=== PATIENT | male | born 1940 | race Caucasian/White ===

== ENCOUNTER 2017-11-19 12:03 | Observation (INO) | payer MEDICARE, SELFPAY ==
[2017-11-19] VITALS (12 sets, daily range): BP systolic 120–130; BP diastolic 44–68; PULSE 55–72; RESP 14–24; TEMP 36.8–37.1; O2SAT 90–95; BMI 46.9; BMI 45.1
--- NOTE | 2017-11-19 12:39 | EKG12_ITS ---
Test Reason : CP Blood Pressure : / mmHG Vent. Rate : 069 BPM Atrial Rate : 071 BPM P-R Int : 206 ms QRS Dur : 198 ms QT Int : 502 ms P-R-T Axes : 000 -65 106 degrees QTc Int : 537 ms AV dual-paced rhythm Abnormal ECG Confirmed by LAURA MEEK, SHAR ([id number]), tape editor SANTI RODRIGUEZ ([id number]) on 11/22/2017 1:30:52 PM Referred By: ANUJA Confirmed By:SHAR SANCHEZ MD
--- NOTE | 2017-11-19 12:39 | RAD_ITS ---
STUDY: X-RAY CHEST REASON FOR EXAM: Male, 77 years old. Chest pain. TECHNIQUE: Single AP upright portable chest view. COMPARISON: Portable chest 05/03/2017. Correlation CT chest 05/03/2017. FINDINGS: Right pacemaker battery and dual contiguous appearing intracardiac leads appear well-positioned, stable appearance where visualized. Right lung appears fairly well ventilated with mild mid and moderate lower heterogeneous opacities seen. Mild left greater than right opacification CP angles noted which appear sharply marginated bilaterally. Left lung shows overall decreased volume and hazy heterogeneous mid lung opacity and more homogeneous heterogeneous basal opacity. Mildly enlarged heart suggested, left lower heart is obscured by left mid/basilar opacity. No change moderately widened mediastinum with effaced left lateral lower margin. Increased left greater than right hilar heterogeneous opacities most likely represent enlarged pulmonary vessels, relatively unchanged suggestive portal arterial hypertension in the appropriate clinical setting. Left-sided visualized aortic arch and descending thoracic aorta appears stable. Visualized bones appear intact without acute osseous process identified. No change sternal wires and numerous left mediastinal and hilar surgical clips. There is no demonstrated abnormality of the visualized soft tissue structures of the upper abdomen. No subdiaphragmatic free air seen grossly. RAD/Chest 1 View (Portable) IMPRESSION: Left greater than right heterogeneous opacities in left lung volume loss, clinical correlation for CHF/fluid overload, pneumonia, atelectasis and/or pleural fluid recommended. Recommend follow-up chest exam as clinically indicated for clearing to exclude neoplasm.. Electronically Signed: Minh Ben, at 13:40 EDT Tel , Service support ,
[2017-11-19 12:50] LABS: Basophil# 0.04 X10^3/uL; Basophil% 0.5 % (0-1); Eosinophil# 0.39 X10^3/uL; Eosinophils% 4.7 % (0-5); Hemoglobin 14.1 g/dl (13.0-16.5); Lymphocyte % 21.7 % (19-41); Mean Corp Hgb Conc 33.6 g/gl (32-36); Mean Corpuscular Volume 89.4 fL (80-94); Mean Platelet Vol. 10.2 fl (6.2-12.0); Monocyte# 1.04 X10^3/uL; Monocyte% 12.5 % (0-10); Neutrophil # 5.01 X10^3/uL (2.7-7.7); Neutrophil % 60.2 % (47-70); Platelet Count 239 K/mm3 (150-450); RBC Distribution Width CV 14.8 % (11.6-14.6); White Blood Count 8.3 K/mm3 (4.4-11.0)
[2017-11-19 12:52] LABS: POSITIVE COUNT NO; POSITIVE DIFFERENTIAL NO; POSITIVE MORPHOLOGY NO
[2017-11-19 13:03] LABS: Anion Gap 8 (5-15); BUN 20 mg/dL (7-18); BUN/Creat Ratio 21.3 RATIO (10-20); Calcium,Total 8.4 mg/dL (8.5-10.1); Chloride 105 mmol/L (98-107); Creatinine, Serum 0.94 mg/dL (0.70-1.30); EST Glomerular Filtration Rate 83 mL/min (>60); Est Glom Filt Rate - Afr Amer 101 mL/min (>60); Estimated Creatinine Clearance 73.38 ml/min; Glucose 126 mg/dL (74-106); Potassium 3.8 mmol/L (3.5-5.1); Sodium Level 142 mmol/L (136-145)
[2017-11-19 14:34] LABS: D-Dimer Quantitative (DVT/PE) 0.72 FEU/ug/m (0.27-0.49)
--- NOTE | 2017-11-19 14:40 | EKG12_ITS ---
Test Reason : REPEAT-CP Blood Pressure : / mmHG Vent. Rate : 066 BPM Atrial Rate : 357 BPM P-R Int : 242 ms QRS Dur : 160 ms QT Int : 480 ms P-R-T Axes : 000 -68 111 degrees QTc Int : 503 ms AV dual-paced rhythm with prolonged AV conduction Abnormal ECG Confirmed by LAURA MEEK, SHAR ([id number]), offline editor SANTI RODRIGUEZ ([id number]) on 11/22/2017 1:31:12 PM Referred By: ANALIA Confirmed By:SHAR SANCHEZ MD
--- NOTE | 2017-11-19 15:05 | ED.VISSUMM ---
- ER Visit Summary Date of Service: 11/19/17 Chief Complaint: Chest pain History of Present Illness: The patient is a 77 M who reports chest tightness that started last evening. He points to the center portion of his chest and states it radiates toward his right shoulder and up the right side of his neck. He did report getting sweaty with it but not short of breath. He recently had his Xarelto held because he was coughing up some blood. He states that occurs rather frequently. He restarted his Xarelto on November 17. She was given aspirin one sublingual nitro with EMS. On arrival here patient states his pain is down to a 1 and this is his normal baseline. Past history significant for coronary disease, diabetes, hypertension, high cholesterol, CHF, paroxysmal A. fib, third-degree block. Patient has a pacemaker. He is also had cardiac stents and double bypass surgery. Physical Examination: Blood pressure is 125/68, temperature 98.3, heart rate 59, respiratory rate 20, pulse ox 90% on room air. Patient sitting upright in bed no acute distress. He is alert and talkative. Head and neck examination is unremarkable. Heart is regular rate and rhythm. Lung sounds are diminished at the bases. Abdomen is soft nontender. Lower extremity examination reveals 1+ bilateral edema that is symmetric. Test Results: EKG is paced at 69. It is unchanged compared to prior study. Portable chest x-ray reveals left greater than right heterogeneous opacities and left lung volume loss. This is grossly unchanged compared to prior study. CBC and chemistry studies are unremarkable. Troponin is less than 0.02. D-dimer 0.72 which is within the normal range when age adjustment is performed. Emergency Department Course and Treatment: Patient had recurrent pain while in the emergency room. He was rating his pain at a 5 out of 10. Repeat EKG was obtained and is unchanged. He was given nitroglycerin ?3 with no significant improvement, however the patient states the pain is moving around in his chest. It may be on the right side and then moved to the left side and then back to right side. He is ordered a small dose of morphine at this time. Due to his cardiac history, patient will be admitted for further evaluation. Treatment Plan: [] Disposition: Admit Impression: Chest pain This note was generated with [employer] dictation software. It may contain incorrect words, spelling, and punctuation that were not noted in review of the chart prior to signing ED Disposition - Plan for ED Patient: Chief Complaint: Chest Pain Referrals: Bertrand Warner MD [Primary Care Provider] -
--- NOTE | 2017-11-19 15:08 | ED.DCSUM_ITS ---
- ER Visit Summary Date of Service: 11/19/17 Chief Complaint: Chest pain History of Present Illness: The patient is a 77 M who reports chest tightness that started last evening. He points to the center portion of his chest and states it radiates toward his right shoulder and up the right side of his neck. He did report getting sweaty with it but not short of breath. He recently had his Xarelto held because he was coughing up some blood. He states that occurs rather frequently. He restarted his Xarelto on November 17. She was given aspirin one sublingual nitro with EMS. On arrival here patient states his pain is down to a 1 and this is his normal baseline. Past history significant for coronary disease, diabetes, hypertension, high cholesterol, CHF, paroxysmal A. fib, third-degree block. Patient has a pacemaker. He is also had cardiac stents and double bypass surgery. Physical Examination: Blood pressure is 125/68, temperature 98.3, heart rate 59 , respiratory rate 20, pulse ox 90% on room air. Patient sitting upright in bed no acute distress. He is alert and talkative. Head and neck examination is unremarkable. Heart is regular rate and rhythm. Lung sounds are diminished at the bases. Abdomen is soft nontender. Lower extremity examination reveals 1+ bilateral edema that is symmetric. Test Results: EKG is paced at 69. It is unchanged compared to prior study. Portable chest x-ray reveals left greater than right heterogeneous opacities and left lung volume loss. This is grossly unchanged compared to prior study. CBC and chemistry studies are unremarkable. Troponin is less than 0.02. D- dimer 0.72 which is within the normal range when age adjustment is performed. Emergency Department Course and Treatment: Patient had recurrent pain while in the emergency room. He was rating his pain at a 5 out of 10. Repeat EKG was obtained and is unchanged. He was given nitroglycerin ?3 with no significant improvement, however the patient states the pain is moving around in his chest. It may be on the right side and then moved to the left side and then back to right side. He is ordered a small dose of morphine at this time. Due to his cardiac history, patient will be admitted for further evaluation. Treatment Plan: [] Disposition: Admit Impression: Chest pain This note was generated with [employer] dictation software. It may contain incorrect words, spelling, and punctuation that were not noted in review of the chart prior to signing ED Disposition - Plan for ED Patient: Chief Complaint: Chest Pain Referrals: Bertrand Warner MD [Primary Care Provider] -
[2017-11-19] MEDS: Morphine 2 MG/ML Syringe IV (15:11)
--- NOTE | 2017-11-19 15:41 | NURSING ---
OBS CP WHITE 105
--- NOTE | 2017-11-19 16:00 | HP.PCM_ITS ---
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 Status: Chronic (6) Atherosclerosis of coronary artery of [place] heart without angina pectoris Status: Chronic (7) Presence of cardiac pacemaker Status: Chronic (8) Junctional escape rhythm Status: Chronic (9) CHF (congestive heart failure) Status: Chronic Qualifiers: (10) Ileus following gastrointestinal surgery Status: Resolved (11) Obstructive sleep apnea Status: Chronic (12) HLD (hyperlipidemia) Status: Chronic Qualifiers: (13) DM2 (diabetes mellitus, type 2) Status: Chronic Qualifiers: (14) Benign essential HTN Status: Chronic (15) Chronic venous insufficiency Status: Chronic (16) Swelling of lower extremity Status: Chronic (17) Edema of both legs Status: Chronic (18) Morbid obesity Status: Chronic (19) Prostate cancer Status: Chronic (20) Venous stasis dermatitis of both lower extremities Status: Chronic (21) Status post cholecystectomy Status: Chronic (22) Cholecystitis Status: Chronic (23) Asthma Status: Chronic History of Present Illness Date of Admission: 11/19/17 Chief Complaint: Chest pressure, right arm pain. The patient is a 77 year old M who presents to the emergency room with chest pressure/pain. Patient states around 230 this morning he was awoken from sleep with right arm pain which radiated to his neck. This lasted approximately 15- 20 minutes and resolved. Patient states he went back to sleep at that time. When he awoke in the morning he again had right arm pain with radiation to neck along with chest pressure, shortness of breath and diaphoresis. Patient follows with Dr. Stanley, [facility] cardiology. He has a history of double coronary artery bypass approximately 20 years ago, paroxysmal atrial fibrillation, status post cardiac pacemaker, CHF, obstructive sleep apnea, hyperlipidemia, hypertension, type 2 diabetes mellitus, chronic venous insufficiency, prostate cancer, asthma, BPH, morbid obesity, GERD. Patient received nitro and morphine in the ER and currently complains of chest pain 4 out of 10. He denies other associated complaints. 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) Atherosclerosis of coronary artery of [place] heart without angina pectoris ( Chronic) 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) CHF (congestive heart failure) (Chronic) Obstructive sleep apnea (Chronic) HLD (hyperlipidemia) (Chronic) DM2 (diabetes mellitus, type 2) (Chronic) Benign essential HTN (Chronic) Chronic venous insufficiency (Chronic) Swelling of lower extremity (Chronic) Edema of both legs (Chronic) Morbid obesity (Chronic) Prostate cancer (Chronic) Venous stasis dermatitis of both lower extremities (Chronic) Status post cholecystectomy (Chronic) Cholecystitis (Chronic) Asthma (Chronic) Allergies lisinopril Allergy (Verified 11/19/17 12:05) Unknown sertraline Allergy (Verified 11/19/17 12:05) Unknown Home Medications: Ambulatory Orders Medication Instructions Recorded Aspirin [Aspirin, Baby] 81 mg PO DAILY 06/09/13 Metformin HCl [Glucophage] 500 mg PO TIDCM 06/09/13 Nitroglycerin [Nitrostat] 0.4 mg SUBLINGUAL Q5M PRN 06/09/13 Tamsulosin HCl [Flomax] 0.4 mg PO QHS 06/09/13 traZODone [Desyrel] 50 mg PO QHS PRN PRN 07/26/14 Magnesium Oxide [Mag-Ox 400] 400 mg PO DAILY 10/07/15 Atorvastatin Calcium [Lipitor] 80 mg PO QHS 10/30/15 Polyethylene Glycol 3350 [Miralax] 17 gm PO BID PRN PRN 10/30/15 Oxybutynin [Ditropan] 5 mg PO TID 01/27/16 Metoprolol Tartrate [Lopressor 25 mg PO BID 05/08/16 (beta emily)] Acetaminophen [Mapap] 1,000 mg PO Q8H PRN PRN 10/17/16 Furosemide [Lasix] 40 mg PO DINNER 10/17/16 Furosemide [Lasix] 80 mg PO DAILY 10/17/16 Pantoprazole Sodium [Protonix] 40 mg PO DAILY #30 tablet 10/17/16 Glimepiride [Amaryl] 1 mg PO DAILY 05/03/17 Ranitidine [Zantac] 300 mg PO DAILY 05/03/17 Docusate Sodium [Colace] 100 mg PO DAILY 11/19/17 Guaifenesin/Dextromethorphan 5 ml PO PRN PRN 11/19/17 [Robitussin Cough-Chest Dm Liq] Hydrocodone Bitart/Apap 5-325 1 tablet PO Q6H PRN PRN 11/19/17 [[place] 5MG-325MG] Rivaroxaban [Xarelto] 20 mg PO DAILY 11/19/17 Sucralfate [Carafate] 1 gm PO TID 11/19/17 Surgical History: coronary bypass surgery - 1998, total hip arthroplasty - Bilateral, - - Open cholecystectomy - September 2015. Open reduction and internal fixation of a right hip fracture. Psychiatric History: No pertinent psych hx Lives: - - Assisted-living Smoking Status: Never smoker Tobacco Use: Non-smoker Alcohol: Occasional - *Family History Maternal History Items: Cancer - Lung, - Paternal History Items: Heart Disease Review of Systems Constitutional: Denies: Chills, Fever, Weight Change HEENT: Denies: Head Aches, Sinus Congestion, Sinus Drainage Cardiovascular: Reports: Chest Pain, Chest Pressure. Denies: Palpitations, Syncope Respiratory: Denies: Cough, Shortness of breath at rest, Sputum production Gastrointestinal: Denies: Abdominal Pain, Nausea, Vomiting Genitourinary: Denies: Dysuria Musculoskeletal: Denies: Joint Pain, Joint Tenderness Skin: Denies: Rash, Wounds Neurological: Denies: Numbness, Tingling, Focal weakness Psychiatric: Denies: Anxiety, Depression, Homicidal Ideations, Suicidal Ideations Hematologic/ Lymphatic: Denies: Easy Bruising, Easy Bleeding VTE Information - Inpt Only VTE Present on Admission: No VTE Mechan Device Prophylaxis: Knee High LEO Hose VTE Pharm Prophylaxis ordered?: Yes - Physical Exam General: Alert, Oriented x3, Cooperative, No apparent distress HEENT: Atraumatic, PERRLA, EOMI, Normocephalic Neck: Supple, No JVD, Negative Carotid Bruits Lungs: Clear to auscultation, Diminished Cardiovascular: Regular rate, Regular Rhythm, Normal S1, Normal S2, No murmurs Abdomen: Bowel Sounds Present, Soft, Non Tender, Non-Distended, Obese Extremities: No clubbing, No cyanosis, Capillary Refill Less than 3 Seconds, Edema - +1 BLLE Skin: No rashes, No breakdown Musculoskeletal: No Tenderness to Palpation of Joints or Extremities Neurological: Cranial nerves II-XII grossly intact, Neuro grossly intact Psych/Mental Status: Normal Affect, Appropriate Vital Signs Temp Pulse Resp BP Pulse Ox 98.3 F 72 14 126/44 H 92 11/19/17 12:06 11/19/17 15:04 11/19/17 15:04 11/19/17 15:04 11/19/17 15:04 Assessment/Plan 1. Chest pain-EKG in ER shows paced rhythm. Chest x-ray shows heterogeneous opacities and left lung volume loss, unchanged from prior study. Troponin negative ?1. Cycle enzymes. Repeat EKG in a.m. Obtain nuclear stress test tomorrow morning. Morphine and nitro as needed for pain. 2. CAD-status post double coronary artery bypass. Follows with Dr. Stanlye, [facility]. Continue aspirin, statin, beta-emily, Xarelto. 3. Paroxysmal atrial fibrillation-currently paced rhythm. Continue Xarelto. 4. Status post pacemaker-recent pacemaker interrogation 10/26/2017. 5. Obstructive sleep apnea continue BiPAP at bedtime with supplemental oxygen. 6. CHF-presumed diastolic. No evidence of acute exacerbation. Continue home Lasix regimen. 7. Type 2 diabetes mellitus-hold home oral regimen. Accu-Cheks before meals at bedtime with sliding scale insulin. 8. Hyperlipidemia-continue statin. 9. Hypertension-stable, continue current regimen. 10. Chronic venous insufficiency-continue knee-high LEO hose. 11. Chronic asthma-no acute exacerbation. Albuterol aerosols as needed. 12. BPH-continue home Flomax regimen. 13. GERD-famotidine. 14. Morbid obesity-encouraged diet and lifestyle modifications. Nutrition consult. DVT prophylaxis-Xarelto. This patient was seen by SEYMOUR Guaman under the supervision of Dr. Grace.
[2017-11-19] MEDS: Furosemide 40 MG Tablet PO (17:50)
[2017-11-19 18:00] LABS: Bedside Glucose 98 mg/dL (70-110)
[2017-11-19 18:03] LABS: Hemoglobin A1c 6.6 % (4.2-6.3)
[2017-11-19] MEDS: Oxybutynin 5 MG Tablet PO (21:09)
[2017-11-19] MEDS: Atorvastatin Calcium 80 MG Tablet PO (21:10)
[2017-11-19] MEDS: Metoprolol Tartrate 25 MG Tablet PO (21:10)
[2017-11-19] MEDS: Tamsulosin HCl 0.4 MG Capsule PO (21:10)
[2017-11-19] MEDS: Famotidine 20 MG Tablet PO (21:11)
[2017-11-19 23:01] LABS: Bedside Glucose 137 mg/dL (70-110)
[2017-11-20] VITALS (10 sets, daily range): BP systolic 111–129; BP diastolic 51–74; PULSE 58–75; RESP 18–20; TEMP 36.6–37; O2SAT 92–95
[2017-11-20] MEDS: 0.9% Normal Saline 1,000 ML 100 ML IV ×2 (00:34→05:57)
--- NOTE | 2017-11-20 02:36 | NURSING ---
Pt c/o chest pressure, left shoulder pain, right jaw pain. STAT EKG obtained. No change. VSS. Pt states he is back to how he was feeling before the acute chest pressure.
[2017-11-20 03:33] LABS: Hematocrit 41.4 % (40-54); Hemoglobin 13.7 g/dl (13.0-16.5); Mean Corp Hgb Conc 33.1 g/gl (32-36); Mean Corpuscular Hgb 29.8 pg (27.0-32.0); Mean Corpuscular Volume 90.2 fL (80-94); Mean Platelet Vol. 9.7 fl (6.2-12.0); Platelet Count 222 K/mm3 (150-450); RBC Distribution Width CV 14.7 % (11.6-14.6); RBC Distribution Width SD 47.8 fl (35.1-43.9); Red Blood Count 4.59 M/mm3 (4.6-6.2); White Blood Count 7.7 K/mm3 (4.4-11.0)
[2017-11-20 03:34] LABS: Scan Indicated on CBC? Y/N NO
[2017-11-20 03:37] LABS: International Normalized Ratio 1.3; Prothrombin Time (Protime)PT. 16.5 SECONDS (11.7-14.9)
[2017-11-20 03:38] LABS: Partial Thromboplast Time 37.7 Seconds (24.1-36.2)
[2017-11-20 03:46] LABS: Anion Gap 10 (5-15); BUN 19 mg/dL (7-18); BUN/Creat Ratio 22.5 RATIO (10-20); Calcium,Total 8.2 mg/dL (8.5-10.1); Chloride 104 mmol/L (98-107); Creatinine, Serum 0.85 mg/dL (0.70-1.30); EST Glomerular Filtration Rate 94 mL/min (>60); Est Glom Filt Rate - Afr Amer 113 mL/min (>60); Estimated Creatinine Clearance 81.15 ml/min; Glucose 108 mg/dL (74-106); Potassium 3.4 mmol/L (3.5-5.1); Sodium Level 143 mmol/L (136-145)
--- NOTE | 2017-11-20 05:55 | RAD_ITS ---
STUDY: X-RAY CHEST REASON FOR EXAM: Male, 77 years old. Chest pain TECHNIQUE: Frontal and lateral views of the chest. COMPARISON: None. FINDINGS: Right-sided pacemaker. The lungs are clear and expanded. There is no demonstrated pleural abnormality. There is mild cardiac enlargement. Patient status post sternotomy. Normal mediastinum and tj. Normal visualized pulmonary arteries. Normal visualized aortic arch and descending thoracic aorta. Normal visualized thoracic spine. Normal visualized ribs, clavicles, and shoulders. There is no demonstrated abnormality of the visualized soft tissue structures of the upper abdomen. RAD/Chest PA and Lateral IMPRESSION: No infiltrate. Myocardium. Electronically Signed: Didier Spangler DO at 11:41 EDT , Service support ,
--- NOTE | 2017-11-20 05:55 | EKG12_ITS ---
Test Reason : CP Blood Pressure : / mmHG Vent. Rate : 067 BPM Atrial Rate : 067 BPM P-R Int : 000 ms QRS Dur : 168 ms QT Int : 474 ms P-R-T Axes : 000 -51 120 degrees QTc Int : 500 ms Ventricular-paced rhythm Abnormal ECG When compared with ECG of 19-NOV-2017 14:24, MANUAL COMPARISON REQUIRED, DATA IS UNCONFIRMED Confirmed by LAURA MEEK, SHAR ([id number]), editor continuity and script SANTI RODRIGUEZ ([id number]) on 11/23/2017 1:37:56 PM Referred By: KAYLA Confirmed By:SHAR SANCHEZ MD
[2017-11-20] MEDS: Oxybutynin 5 MG Tablet PO ×2 (05:59→15:01)
[2017-11-20] MEDS: Aspirin 81 MG TAB.CHEW PO (05:59)
[2017-11-20] MEDS: Sucralfate 1 GM Tablet PO ×3 (06:00→15:01)
[2017-11-20 07:41] LABS: Bedside Glucose 133 mg/dL (70-110)
[2017-11-20] MEDS: Furosemide 80 MG Tablet PO (10:33)
[2017-11-20] MEDS: Metoprolol Tartrate 25 MG Tablet PO (10:33)
[2017-11-20] MEDS: Rivaroxaban 20 MG Tablet PO (10:33)
[2017-11-20] MEDS: Famotidine 20 MG Tablet PO (10:34)
[2017-11-20] MEDS: Magnesium Oxide 400 MG Tablet PO (10:34)
--- NOTE | 2017-11-20 10:52 | STRESSREP ---
Stress Test Report Pharmacologic myocardial perfusion stress test. 77-year-old man with a history of chest pain. Stress protocol: Resting EKG demonstrates atrial fibrillation with a left bundle branch block pattern rate of 71 bpm is noted. 0.4 mg regadenoson was infused per usual protocol followed by rapid intravenous saline flush injection continuous EKG monitoring was performed. Heart rate attained was 85 bpm which was 59% of the maximum predicted heart rate. The maximum workload attained was 1 metabolic equivalent. At rest nonspecific ST-T wave changes were noted left bundle branch block pattern was present. Pacemaker spikes were also noted. At peak infusion nonspecific ST-T wave changes were also noted consistent with a left bundle branch block pattern. The resting blood pressure was 132/80 with a final blood pressure 118/62. Myocardial perfusion protocol. 14.8 mCi of technetium 99m sestamibi was injected at rest. 0.4 mg of regadenoson was infused per usual protocol peak infusion 45.0 mCi of technetium 99m sestamibi was injected stress images were obtained stress and rest images were reconstructed and compared in the short axis vertical long and horizontal long axis. Gated images were also obtained pre- Perfusion SPECT analysis: Review of the stress images demonstrate normal uptake of tracer noted in all areas of the myocardium. The resting images similarly demonstrate normal uptake of tracer noted in all areas of the myocardium. There is some GI attenuation artifact noted. No areas of reversibility are noted suggest ischemia. Gated SPECT analysis:. Gated ejection fraction is 47%. Conclusion: Normal pharmacologic myocardial perfusion stress test. Mild cardiomyopathy present.
[2017-11-20 11:26] LABS: Bedside Glucose 177 mg/dL (70-110)
--- NOTE | 2017-11-20 11:37 | CPS ---
pt wears a Bipap [facility] at home, does not have anyone who can bring his in. he doesn't want to use ours, he just wants to wear O2 tonight.
--- NOTE | 2017-11-20 12:14 | DCINST_ITS ---
You will use the following diet at home:: Calorie/Carbohydrate Controlled ( specify 1200, 1400, etc), Cardiac Discharge Activity: Return to Normal Activity Call your doctor if you observe: Shortness of breath, Dizziness, Fainting spells , Chest pain, Increased palpitations (irregular heartbeat) Allergies/Adverse Reactions: Allergies lisinopril Allergy (Verified 11/19/17 12:05) Unknown sertraline Allergy (Verified 11/19/17 12:05) Unknown Medications to take at Discharge Aspirin [Aspirin, Baby] 81 mg PO DAILY 06/09/13 Metformin HCl [Glucophage] 500 mg PO TIDCM 06/09/13 Nitroglycerin [Nitrostat] 0.4 mg SUBLINGUAL Q5M PRN 06/09/13 Tamsulosin HCl [Flomax] 0.4 mg PO QHS 06/09/13 traZODone [Desyrel] 50 mg PO QHS PRN PRN 07/26/14 Magnesium Oxide [Mag-Ox 400] 400 mg PO DAILY 10/07/15 Atorvastatin Calcium [Lipitor] 80 mg PO QHS 10/30/15 Polyethylene Glycol 3350 [Miralax] 17 gm PO BID PRN PRN 10/30/15 Oxybutynin [Ditropan] 5 mg PO TID 01/27/16 Metoprolol Tartrate [Lopressor (beta emily)] 25 mg PO BID 05/08/16 Acetaminophen [Mapap] 1,000 mg PO Q8H PRN PRN 10/17/16 Furosemide [Lasix] 40 mg PO DINNER 10/17/16 Furosemide [Lasix] 80 mg PO DAILY 10/17/16 Glimepiride [Amaryl] 1 mg PO DAILY 05/03/17 Ranitidine [Zantac] 300 mg PO DAILY 05/03/17 Docusate Sodium [Colace] 100 mg PO DAILY 11/19/17 Guaifenesin/Dextromethorphan [Robitussin Cough-Chest Dm Liq] 5 ml PO PRN PRN Hydrocodone Bitart/Apap 5-325 [[place] 5/325] 1 tablet PO Q6H PRN PRN 11/19/17 Pantoprazole Sodium [Protonix] 40 mg PO DAILY 11/19/17 Rivaroxaban [Xarelto] 20 mg PO DAILY 11/19/17 Sucralfate [Carafate] 1 gm PO TID 11/19/17 Primary Care Physician: Bertrand Warner MD [Primary Care Provider] - Please follow up with your Primary Care Physician in: 1 Week Please Follow Up With: Braulio Stanley MD When: 1 Week Proposed Discharge Date: 11/20/17
--- NOTE | 2017-11-20 12:15 | PCM.DC.SUM ---
<Holli Moore - Last Filed: 11/20/17 12:26> Discharge Date and Diagnosis Date of Admission: 11/19/17 Date of Discharge: 11/20/17 - Primary Discharge Diagnosis 1. Chest pain- ACS ruled out. 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 Myocardium. Electronically Signed: Didier Spangler DO at 11:41 EDT , Service support , Operations: None Procedures: Stress test Summary of Care Provided: The patient is a 77 year old M admitted 11/19/2017 due to chest pressure and right arm pain. Patient follows with Dr. Stanley, [facility] cardiology. He has a history of double coronary artery bypass approximately 20 years ago, paroxysmal atrial fibrillation, status post cardiac pacemaker, CHF, obstructive sleep apnea, hyperlipidemia, hypertension, type 2 diabetes mellitus, chronic venous insufficiency, prostate cancer, asthma, BPH, morbid obesity, GERD. Chest x-ray showed no infiltrate, myocardium. EKG paced rhythm without evidence of ischemia. Troponin negative ?3. Patient underwent nuclear stress test which was negative for ischemia. Vitals have remained stable. Patient's chest pressure has improved although he complains of mild chest pressure intermittently, not associated with exertion. Patient is on a multidrug regimen for GERD. He may require additional adjustment of this medication. Patient states he has a baseline chest discomfort 1 out of 10. ACS was ruled out. Patient will follow up with primary care physician and cardiology in 1 week. General: Alert, Oriented x3, Cooperative, No apparent distress HEENT: Atraumatic, PERRLA, EOMI, Normocephalic Neck: Supple, No JVD, Negative Carotid Bruits Lungs: Clear to auscultation, Diminished Cardiovascular: Regular rate, Regular Rhythm, Normal S1, Normal S2, No murmurs Abdomen: Bowel Sounds Present, Soft, Non Tender, Non-Distended, Obese Extremities: No clubbing, No cyanosis, Capillary Refill Less than 3 Seconds, Edema - +1 BLLE Skin: No rashes, No breakdown Musculoskeletal: No Tenderness to Palpation of Joints or Extremities Neurological: Cranial nerves II-XII grossly intact, Neuro grossly intact Psych/Mental Status: Normal Affect, Appropriate Patient seen and examined prior to discharge. Physical assessment as noted above. Patient is stable for discharge home with recommendations as noted above. This patient was seen by SEYMOUR Guaman under the supervision of Dr. Cox. Discharge Diet: Low fat/ Low Cholesterol, Carb Control Diet Discharge Activity: Return to Normal Activity Call your doctor if you observe: Shortness of breath, Dizziness, Fainting spells, Chest pain, Increased palpitations (irregular heartbeat) Home Medications: Medications to take at Discharge Aspirin [Aspirin, Baby] 81 mg PO DAILY 06/09/13 Metformin HCl [Glucophage] 500 mg PO TIDCM 06/09/13 Nitroglycerin [Nitrostat] 0.4 mg SUBLINGUAL Q5M PRN 06/09/13 Tamsulosin HCl [Flomax] 0.4 mg PO QHS 06/09/13 traZODone [Desyrel] 50 mg PO QHS PRN PRN 07/26/14 Magnesium Oxide [Mag-Ox 400] 400 mg PO DAILY 10/07/15 Atorvastatin Calcium [Lipitor] 80 mg PO QHS 10/30/15 Polyethylene Glycol 3350 [Miralax] 17 gm PO BID PRN PRN 10/30/15 Oxybutynin [Ditropan] 5 mg PO TID 01/27/16 Metoprolol Tartrate [Lopressor (beta emily)] 25 mg PO BID 05/08/16 Acetaminophen [Mapap] 1,000 mg PO Q8H PRN PRN 10/17/16 Furosemide [Lasix] 40 mg PO DINNER 10/17/16 Furosemide [Lasix] 80 mg PO DAILY 10/17/16 Glimepiride [Amaryl] 1 mg PO DAILY 05/03/17 Ranitidine [Zantac] 300 mg PO DAILY 05/03/17 Docusate Sodium [Colace] 100 mg PO DAILY 11/19/17 Guaifenesin/Dextromethorphan [Robitussin Cough-Chest Dm Liq] 5 ml PO PRN PRN 11/19/17 Hydrocodone Bitart/Apap 5-325 [[place] 5/325] 1 tablet PO Q6H PRN PRN 11/19/17 Pantoprazole Sodium [Protonix] 40 mg PO DAILY 11/19/17 Rivaroxaban [Xarelto] 20 mg PO DAILY 11/19/17 Sucralfate [Carafate] 1 gm PO TID 11/19/17 Primary Care Physician: Bertrand Warner MD [Primary Care Provider] - Please follow up with your Primary Care Physician in: 1 Week Please Follow Up With: Braulio Stanley MD When: 1 Week Disposition: Asstd Living/Non-Skill [place] Minutes spent on discharge:: 35 Patient Condition:: Stable Medical Necessity - Tobacco Use Smoking Status: Never smoker Tobacco Use: Non-smoker Meaningful Use Info Meaningful Use Diagnoses (Choose all that apply): None applicable <David Cox - Last Filed: 11/20/17 16:29> Discharge Date and Diagnosis - Secondary Discharge Diagnosis Chronic Problems Paroxysmal atrial fibrillation (Chronic) H/O coronary artery bypass surgery (Chronic) Complete heart block (Chronic) Symptomatic bradycardia (Chronic) Mobitz type 1 second degree atrioventricular block (Chronic) Atherosclerosis of coronary artery of [place] heart without angina pectoris (Chronic) 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) CHF (congestive heart failure) (Chronic) Obstructive sleep apnea (Chronic) HLD (hyperlipidemia) (Chronic) DM2 (diabetes mellitus, type 2) (Chronic) Benign essential HTN (Chronic) Chronic venous insufficiency (Chronic) Swelling of lower extremity (Chronic) Edema of both legs (Chronic) Morbid obesity (Chronic) Prostate cancer (Chronic) Venous stasis dermatitis of both lower extremities (Chronic) Status post cholecystectomy (Chronic) Cholecystitis (Chronic) Asthma (Chronic) Hospital Course and Treatment Summary of Care Provided: This patient was seen in conjunction with [facility]. I have independently interviewed and examined the patient and reviewed pertinent history, examination findings, laboratory and plan of management. I have reviewed the note and agree with the documented findings with the few additional points. In brief, patient is admitted for chest pain. Patient has history of two-vessel CABG about 20 years ago. Stress test was negative. Patient is being discharged to assisted living center. I have discussed my assessment with Holli LILLY and orders have been reviewed. [] Code Visit OBSV E&M: 06502 Observation care discharge
--- NOTE | 2017-11-20 12:25 | DS.PCM_ITS ---
<Holli Moore - Last Filed: 11/20/17 12:26> Discharge Date and Diagnosis Date of Admission: 11/19/17 Date of Discharge: 11/20/17 - Primary Discharge Diagnosis 1. Chest pain- ACS ruled out. 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 Myocardium. Electronically Signed: Didier Spangler DO at 11:41 EDT , Service support , Operations: None Procedures: Stress test Summary of Care Provided: The patient is a 77 year old M admitted 11/19/2017 due to chest pressure and right arm pain. Patient follows with Dr. Stanley, [facility] cardiology. He has a history of double coronary artery bypass approximately 20 years ago, paroxysmal atrial fibrillation, status post cardiac pacemaker, CHF, obstructive sleep apnea , hyperlipidemia, hypertension, type 2 diabetes mellitus, chronic venous insufficiency, prostate cancer, asthma, BPH, morbid obesity, GERD. Chest x-ray showed no infiltrate, myocardium. EKG paced rhythm without evidence of ischemia. Troponin negative ?3. Patient underwent nuclear stress test which was negative for ischemia. Vitals have remained stable. Patient's chest pressure has improved although he complains of mild chest pressure intermittently, not associated with exertion. Patient is on a multidrug regimen for GERD. He may require additional adjustment of this medication. Patient states he has a baseline chest discomfort 1 out of 10. ACS was ruled out. Patient will follow up with primary care physician and cardiology in 1 week. General: Alert, Oriented x3, Cooperative, No apparent distress HEENT: Atraumatic, PERRLA, EOMI, Normocephalic Neck: Supple, No JVD, Negative Carotid Bruits Lungs: Clear to auscultation, Diminished Cardiovascular: Regular rate, Regular Rhythm, Normal S1, Normal S2, No murmurs Abdomen: Bowel Sounds Present, Soft, Non Tender, Non-Distended, Obese Extremities: No clubbing, No cyanosis, Capillary Refill Less than 3 Seconds, Edema - +1 BLLE Skin: No rashes, No breakdown Musculoskeletal: No Tenderness to Palpation of Joints or Extremities Neurological: Cranial nerves II-XII grossly intact, Neuro grossly intact Psych/Mental Status: Normal Affect, Appropriate Patient seen and examined prior to discharge. Physical assessment as noted above. Patient is stable for discharge home with recommendations as noted above. This patient was seen by SEYMOUR Guaman under the supervision of Dr. Cox. Discharge Diet: Low fat/ Low Cholesterol, Carb Control Diet Discharge Activity: Return to Normal Activity Call your doctor if you observe: Shortness of breath, Dizziness, Fainting spells , Chest pain, Increased palpitations (irregular heartbeat) Home Medications: Medications to take at Discharge Aspirin [Aspirin, Baby] 81 mg PO DAILY 06/09/13 Metformin HCl [Glucophage] 500 mg PO TIDCM 06/09/13 Nitroglycerin [Nitrostat] 0.4 mg SUBLINGUAL Q5M PRN 06/09/13 Tamsulosin HCl [Flomax] 0.4 mg PO QHS 06/09/13 traZODone [Desyrel] 50 mg PO QHS PRN PRN 07/26/14 Magnesium Oxide [Mag-Ox 400] 400 mg PO DAILY 10/07/15 Atorvastatin Calcium [Lipitor] 80 mg PO QHS 10/30/15 Polyethylene Glycol 3350 [Miralax] 17 gm PO BID PRN PRN 10/30/15 Oxybutynin [Ditropan] 5 mg PO TID 01/27/16 Metoprolol Tartrate [Lopressor (beta emily)] 25 mg PO BID 05/08/16 Acetaminophen [Mapap] 1,000 mg PO Q8H PRN PRN 10/17/16 Furosemide [Lasix] 40 mg PO DINNER 10/17/16 Furosemide [Lasix] 80 mg PO DAILY 10/17/16 Glimepiride [Amaryl] 1 mg PO DAILY 05/03/17 Ranitidine [Zantac] 300 mg PO DAILY 05/03/17 Docusate Sodium [Colace] 100 mg PO DAILY 11/19/17 Guaifenesin/Dextromethorphan [Robitussin Cough-Chest Dm Liq] 5 ml PO PRN PRN Hydrocodone Bitart/Apap 5-325 [[place] 5/325] 1 tablet PO Q6H PRN PRN 11/19/17 Pantoprazole Sodium [Protonix] 40 mg PO DAILY 11/19/17 Rivaroxaban [Xarelto] 20 mg PO DAILY 11/19/17 Sucralfate [Carafate] 1 gm PO TID 11/19/17 Primary Care Physician: Bertrand Warner MD [Primary Care Provider] - Please follow up with your Primary Care Physician in: 1 Week Please Follow Up With: Braulio Stanley MD When: 1 Week Disposition: Asstd Living/Non-Skill [place] Minutes spent on discharge:: 35 Patient Condition:: Stable Medical Necessity - Tobacco Use Smoking Status: Never smoker Tobacco Use: Non-smoker Meaningful Use Info Meaningful Use Diagnoses (Choose all that apply): None applicable <David Cox - Last Filed: 11/20/17 16:29> Discharge Date and Diagnosis - Secondary Discharge Diagnosis Chronic Problems Paroxysmal atrial fibrillation (Chronic) H/O coronary artery bypass surgery (Chronic) Complete heart block (Chronic) Symptomatic bradycardia (Chronic) Mobitz type 1 second degree atrioventricular block (Chronic) Atherosclerosis of coronary artery of [place] heart without angina pectoris ( Chronic) 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 I have independently interviewed and examined the patient and reviewed pertinent history, examination findings, laboratory and plan of management. I have reviewed the note and agree with the documented findings with the few additional points. In brief, patient is admitted for chest pain. Patient has history of two- vessel CABG about 20 years ago. Stress test was negative. Patient is being discharged to assisted living center. I have discussed my assessment with Holli LILLY and orders have been reviewed. [] Code Visit OBSV E&M: 05852 Observation care discharge
--- NOTE | 2017-11-20 15:50 | NURSING ---
called report to nurse at [facility]
== END 2017-11-20 17:09 | disposition home or self-care (01) ==
LOC: ED 14:13 → PCU 15:45
PROVIDERS: Admitting Provider Family Medicine; Emergency Provider Emergency Medicine; Family Provider Family Medicine; PCP Family Medicine; Visit Provider Internal Medicine
DX: R07.89 Other chest pain (principal); I48.0 Paroxysmal atrial fibrillation; I25.10 Atherosclerotic heart disease of native coronary artery without angina pectoris; E78.5 Hyperlipidemia, unspecified; I10 Essential (primary) hypertension; E11.9 Type 2 diabetes mellitus without complications; J45.909 Unspecified asthma, uncomplicated; G47.33 Obstructive sleep apnea (adult) (pediatric); I11.0 Hypertensive heart disease with heart failure; I50.9 Heart failure, unspecified; R60.0 Localized edema; E66.01 Morbid (severe) obesity due to excess calories; Z68.41 Body mass index [BMI] 40.0-44.9, adult; Z85.46 Personal history of malignant neoplasm of prostate; Z71.3 Dietary counseling and surveillance; Z95.1 Presence of aortocoronary bypass graft; Z95.0 Presence of cardiac pacemaker; K21.9 Gastro-esophageal reflux disease without esophagitis; N40.0 Benign prostatic hyperplasia without lower urinary tract symptoms; I89.0 Lymphedema, not elsewhere classified; I87.8 Other specified disorders of veins; R94.31 Abnormal electrocardiogram [ECG] [EKG]; M79.89 Other specified soft tissue disorders; M79.601 Pain in right arm; Z79.899 Other long term (current) drug therapy; Z79.84 Long term (current) use of oral hypoglycemic drugs; Z79.82 Long term (current) use of aspirin; Z79.01 Long term (current) use of anticoagulants
CPT/HCPCS: 36415; 71045; 71046; 78452; 80048; 82962; 83036; 83735; 84484; 85025; 85027; 85379; 85610; 85730; 93005; 93017; 96361; 96374; 97802; 99218; 99285; A9500; J7030; A4216; G0378; J2785

== ENCOUNTER 2018-01-13 13:00 | Outpatient (RCR) | payer MEDICARE, MEDICAID, SELFPAY ==
--- NOTE | 2017-12-16 12:30 | HP.PTEVAL ---
Patient's Visit Information LINCOLN KENDRICK is a 77 year old M referred to Physical Therapy by MISAEL NOE with a diagnosis of SCIATICA NERVE PAIN LEFT. Date of Evaluation: 12/16/17 Physical Therapist: Lily Murray - Visit Plan Frequency: 2-3x /Week Duration: 4-6 Weeks Plan: AQUATIC THERAPY FOR PAIN RELIEF, GAIT TRAINING, POSTURE CORRECTION/STRENGTHENING, INSTRUCTION IN APPROPRIATE BODY MECHANICS AND ACTIVITY MODIFICATIONS. DLS STARTING WITH A NEUTRAL SPINE PROGRESSING ROM TOLERATED. JALEEL LE ROM, STRETCHING AND STRENGTHENING. HEP INSTRUCTION. - Subjective Subjective: Diagnosis: SCIATICA NERVE PAIN LEFT. Work/Leisure: RETIRED. Disability: NO. Present symptoms: LEFT BUTTOCK, LEFT HIP, AND LEFT THIGH PAIN. LEFT LOW BACK PAIN A FEW MONTHS AGO. PATIENT DENIES NUMBNESS OR TINGLING IN LE'S CURRENTLY. Present since: APR 2017. Pain Scale: WORST 4/10, LEAST 1/10. Currently: 10. Commenced as a result of: NO APPARENT REASON. Symptoms at onset: LEFT HIP. Worse: WALKING, STANDING, BENDING, LIFTING, AND PROLONGED SITTING. Better: LYING DOWN. Disturbed sleep: NO. Previous history/Previous treatment: LEFT THR 2000, RIGHT THR 1998. NO BACK SURGERY. LUMBAR PROCEEDURE TO RE-ROUTE NERVES IN PAIN MGMT 2003. H/O SANDY'S TOO. MOST RECENT INJECTION WAS LAST YEAR. PT FOR HIPS BUT NOT SPECIFICALLY FOR LOW BACK. H/O CHIROPRACTOR REGULARLY FOR OVER A YEAR. NO CHIRO RECENTLY. Coughing/sneezing/straining: NEGATIVE. Gait: WALKING WITH CANE FOR ABOUT 17 OR MORE YEARS AGO SINCE HAD HIP DONE. Difficulty initiating urinatin: NO. Accidents: NO. Unexplained weight loss: NO. Imaging: RECENT HIP AND LUMBAR X-RAYS AND MRI AT [facility] - PATIENT REPORTS THEY FOUND ARTHRITIS IN HIS LOW BACK. LEFT HIP X-RAY LOOKED NORMAL. OTHER: RIGHT CTR AND N. SURGERY LAST MONTH AND LEFT PENDING NEXT MONTH. PACEMAKER - Objective Sitting Posture: POOR. Standing Posture: POOR. Lordosis: REDUCED. Lateral shift: NO. Relevant shift: N/A. Active Correction of posture: NE. Other Observations: INDEP GAIT INTO PT WITH A STRAIGHT CANE, SHUFFLE TYPE GAIT PATTERN AND MILD LIMP ON THE LLE. PATIENT IS UNABLE TO TRANSFER INDEP'LY FROM SIT TO STAND WITHOUT UE ASSIST. Motor deficit: JALEEL LE STRENGTH IS 5/5 WITH MMT'ING EXCEPT JALEEL HIPS GRADED 4/5. PATIENT IS UNABLE TO SLS ON EITHER LEG > 2-3 SEC'S WITHOUT UE ASSIST. Sensory deficit: NO. PATIENT IS WEARING COMPRESSION STOCKINGS. FEET NT. ROM deficit: TIGHT JALEEL HIP FLEXORS, HS'S AND GASTROC SOLEUS COMPLEX'S. Dural Signs: NEGATIVE JALEEL LE DURAL SIGNS. Lumbar mvmt loss: flex - MOD. ext - RICKEY. R SG - RICKEY. L SG - RICKEY. Core strength: POOR. Palpation: NO ACUTE LUMBOSACRAL TENDERNESS BUT PATIENT DOES HAVE LEFT LATERAL HIP AND THIGH TENDERNESS. - Goals Goal 1:: DECREASE C/O LLE SX'S Goal Time Frame: 4-6 Weeks Goal 2:: IMPROVE STANDING, WALKING, BENDING, LIFTING, SITTING, AND ADL FUNCTION Goal Time Frame: 4-6 Weeks Goal 3:: INSTRUCT IN PROPHYLAXIS Goal Time Frame: 4-6 Weeks - Rehabilitation Potential Rehabilitation Potential: Fair - Anticipated Interventions Patient/Client Instruction: Educate patient on: Condition, Plan of Care, Risk Factors, Benefits of Fitness Program For the Purpose of:: To improve self management Therapeutic Exercise to Include: Strength training, Body mechanics, Postural training, Gait and locomotor training, In an aquatic setting, Active ROM, Dynamic Lumbar Stabilization For the Purpose of:: To decrease pain, To increase ROM, To improve muscle performance and motor function, To improve ability of physical actions for home/community/work/leisure, To improve gait and locomotor functions Thank you for the opportunity to evaluate your patient. For Medicare and Medicare HMO plans, please review the plan of care and approve it. It will need to be FAXED BACK to us at [phone] for Medicare purposes. Please let me know if there are questions or concerns regarding this plan of care. Physician Signature: Date:
--- NOTE | 2018-01-13 13:28 | HP.PTDCSUM ---
HP - PT D/C Summary It has been my pleasure to treat LINCOLN KENDRICK under orders from MISAEL NOE, for the diagnosis of SCIATICA NERVE PAIN LEFT for a total of 7 visit(s). Discharge Date: Please see the following information for a summary of their discharge status. - Subjective Subjective: PATIENT REPORTS THE WATER THERAPY HAS HELPED HIM A LOT. HE PLANS TO CONTINUE WATER EX INDEP'LY AT THE [facility] WITH HIS NEW INSURANCE NOW. HE REPORTS HIS PAIN IS BETTER AND HE CAN WALK BETTER NOW. - Pain LLE Pain Intensity (Out of 10): 0 - Overall Improvement % Improvement: 80 - Objective Objective/Function: ALL GOALS MET. PATIENT IS INDEP WITH A WATER EX PROGRAM. INDEP GAIT INTO PT TODAY WITH INCRASED CADANCE WITH STRAIGHT CANE. NO LOB. HE STILL WALKS WITH A WIDE BASE OF SUPPORT AND DECREASED JALEEL STRIDE LENGTH. UNABLE TO TRANSFER INDEP'LY FORM SIT TO STAND FROM OUR CHAIRS IN THE CLINIC TODAY BUT REPORTS HE IS GETTING UP OUT OF CHAIRS BETTER IN GENERAL NOW. LUMBAR MVMT LOSS HAS NOT CHANGED. JALEEL LE STRENGTH IS 5/5 WITH MMT'ING AND NO C/O PAIN WITH TESTING. HE IS ONLY ABLE TO SLS X APPROX 5 SEC ON EACH LEG WITHOUT UE ASSIST BUT THIS IS AN IMPROVEMENT. LUMBAR OSWESTRY HAS IMPROVED FROM 15 TO 12 - Goals Goal 1:: DECREASE C/O LLE SX'S Goal Progress: Goal Met Goal 2:: IMPROVE STANDING, WALKING, BENDING, LIFTING, SITTING, AND ADL FUNCTION Goal Progress: Goal Met Goal 3:: INSTRUCT IN PROPHYLAXIS Goal Progress: Goal Met - Plan Plan: D/C TO INDEP WATER PROGRAM. PATIENT IS AGREEABLE. - D/C Information If there are questions or concerns regarding this patient's physical therapy, please feel free to call me at [phone]. Thank you for the referral of this patient. Sincerely, Lily Murray
== END 2018-01-13 13:37 | disposition home or self-care (01) ==
LOC: PT 13:00
PROVIDERS: Family Provider Family Medicine; PCP Family Medicine
DX: M54.32 Sciatica, left side (principal)
CPT/HCPCS: 97113; 97162; 97530

== ENCOUNTER 2018-02-14 18:27 | Observation (INO) | payer MEDICARE, MEDICAID, SELFPAY ==
[2018-02-14 18:28] VITALS: BP 127/67; PULSE 62; RESP 18; TEMP 37.4; O2SAT 95; BMI 45.0
--- NOTE | 2018-02-14 19:18 | CT_ITS ---
STUDY: CT CERVICAL SPINE WITHOUT CONTRAST REASON FOR EXAM: Male, 77 years old. Right-sided neck pain. RADIATION DOSAGE (If Supplied By Facility): CTDIvol = ( 27.38 ) mGy, DLP = ( 671.97 ) mGycm TECHNIQUE: High resolution transaxial imaging was performed without contrast material. Sagittal and coronal images were reconstructed. Individualized dose optimization techniques were used for this CT. COMPARISON: None FINDINGS: Normal craniovertebral junction. Normal anterior atlantoaxial articulation. Normal odontoid process. Normal cervical lordosis. Normal vertebral bodies and posterior osseous elements. C2-3: Normal endplates. Normal disc height and morphology. Normal central canal and intervertebral neuroforamina. C3-4: Disc space narrowing and neural foraminal narrowing. Central canal patent. C4-5: Disc space narrowing and neural foraminal narrowing. Central canal patent. C5-6: Normal endplates. Normal disc height and morphology. Normal central canal and intervertebral neuroforamina. C6-7: Disc space narrowing and neural foraminal narrowing. Central canal patent. C7-T1: Possible large posterior disc marginal osteophyte effacing the cord causing severe narrowing of the central canal which measures 6 to 7 mm in the midline. Normal visualized soft tissue structures. CT/Spine Cervical without Contras IMPRESSION: Multilevel degenerative disc disease and spinal stenosis. No fracture. Recommend cervical MRI. Electronically Signed: Roger Nickerson MD at 20:34 EDT , Service support ,
--- NOTE | 2018-02-14 19:18 | RAD_ITS ---
STUDY: X-RAY - LUMBAR SPINE REASON FOR EXAM: Male, 77 years old. Low back pain status post fall TECHNIQUE: 3 view(s) of the lumbar spine were obtained. COMPARISON: None FINDINGS: Normal lumbar lordosis. There is no substantial scoliosis. There is a normal alignment of the vertebrae. Compression fractures noted at T12 and L1. Normal disc space heights. There is ossification of the anterior longitudinal ligament and the spinous processes. The soft tissue structures are unremarkable. RAD/Lumbar Spine 2 or 3 Views IMPRESSION: Compression fractures T12 and L1, age indeterminate. Diffuse idiopathic skeletal hyperostosis. Electronically Signed: Roger Nickerson MD at 20:53 EDT , Service support ,
--- NOTE | 2018-02-14 19:18 | RAD_ITS ---
STUDY: X-RAY - RIGHT WRIST REASON FOR EXAM: Male, 77 years old. Fell and injured right wrist TECHNIQUE: 3 view(s) of the wrist were obtained. COMPARISON: None. FINDINGS: Normal visualized distal radius and ulna. Normal radiocarpal articulation. Normal distal radioulnar articulation. Normal carpal bones. Normal carpal articulations. Old fracture fifth metacarpal. Normal carpometacarpal articulation of the thumb. Normal second through fifth carpometacarpal articulations. Normal visualized metacarpal bones. The soft tissue structures are unremarkable. RAD/Wrist min 3 Views IMPRESSION: Normal x-ray examination of the wrist. Electronically Signed: Roger Nickerson MD at 20:42 EDT , Service support ,
--- NOTE | 2018-02-14 19:18 | CT_ITS ---
STUDY: CT BRAIN WITHOUT CONTRAST REASON FOR EXAM: Male, 77 years old. Right-sided head trauma RADIATION DOSAGE (If Supplied By Facility): CTDIvol = ( 44.99 ) mGy, DLP = ( 897.35 ) mGycm TECHNIQUE: Transaxial CT imaging of the brain was performed without administration of intravenous contrast material. Individualized dose optimization techniques were used for this CT. COMPARISON: November 29, 2010 FINDINGS: Normal soft tissue structures. Normal calvarium. Normal size ventricles and extra-axial spaces for the patient's age. There are areas of decreased attenuation within the white matter tracts of the supratentorial brain, consistent with microvascular disease changes. Normal basal ganglia and thalami. Normal brainstem. Normal cerebellum. There is no intracranial hemorrhage. There are no findings of an acute ischemic infarction. Normal visualized paranasal sinuses. CT/Brain/Head without Contrast IMPRESSION: Chronic involutional changes of the brain. Electronically Signed: Roger Nickerson MD at 20:10 EDT , Service support ,
--- NOTE | 2018-02-14 19:32 | ED.VISSUMM ---
- ER Visit Summary Date of Service: 02/14/18 Chief Complaint: Fall History of Present Illness: The patient is a 77 M who was trying to get up from his wheelchair. He felt weak and fell back into the wheelchair but then slid to the ground. He did hit his head and neck. He believes he lost consciousness and remembers his neighbor coming to help him. He complains of pain to the right side of his head and neck. He also has right wrist right hip, and low back pain. No weakness or numbness. He does take Xarelto for atrial fibrillation. No nausea or vomiting. Physical Examination: Vital signs unremarkable. Afebrile. Patient is alert and oriented. No acute distress. Head is atraumatic but he does have some right occipital tenderness to palpation. Cervical spine nontender but does have some right paraspinal tenderness. No step-offs. Heart regular rate and rhythm. Lungs clear. Abdomen soft and nontender. Lumbar spine is tender to palpation. Right hip tender to palpation without shortening or abnormal logroll. Right wrist diffusely tender to palpation without deformity. Skin intact throughout. Neurovascular intact throughout. No focal or lateralizing neurologic abnormalities. Test Results: CT head and neck pending. X-rays right wrist, right hip, and lumbar spine pending. Emergency Department Course and Treatment: Patient declined pain medicine. Will review imaging. CT head and neck showed chronic changes. Right wrist x-ray and right hip x-ray showed chronic changes. Lumbar x-ray showed indeterminate age T12 and L1 compression fractures. I reassessed the patient. He had no pain in the T12 or L1 region. He had continued head pain. He requested to stay in the hospital because of continued pain. I spoke with the hospitalist who will admit. Treatment Plan: As above Disposition: Admission Impression: 1. Concussion with loss of consciousness 2. Cervical strain 3. Lumbar contusion 4. Right wrist sprain 5. Right hip contusion This note was generated with [employer] dictation software. It may contain incorrect words, spelling, and punctuation that were not noted in review of the chart prior to signing ED Disposition - Plan for ED Patient: Chief Complaint: Fall Referrals: Bertrand Warner MD [Primary Care Provider] -
--- NOTE | 2018-02-14 19:45 | RAD_ITS ---
STUDY: X-RAY - PELVIS AND RIGHT HIP REASON FOR EXAM: Male, 77 years old. Fell and injured right hip TECHNIQUE: Radiological exam, hip, unilateral, with pelvis when performed; 2 or 3 views. COMPARISON: August 22, 2012 FINDINGS: There is a non-specific bowel gas pattern. Normal visualized soft tissue structures. Normal bilateral iliac wings, sacroiliac joints and visualized sacrum. Normal bilateral superior and inferior pubic rami. Normal pubic symphysis. Normal bilateral ischial tuberosities. Total hip arthroplasties are noted in anatomic alignment bilaterally. RAD/Hip 2-3 Views with Pelvis IMPRESSION: No acute fracture. Total hip arthroplasties. Electronically Signed: Roger Nickerson MD at 20:57 EDT , Service support ,
[2018-02-14 21:12] VITALS: BP 131/60; PULSE 67; RESP 16; O2SAT 97
[2018-02-14 21:44] VITALS: BP 145/77; PULSE 68; RESP 18; O2SAT 98
[2018-02-14 21:45] LABS: Absolute Lymphocyte Count 1.97 X10^3/ul (0.83-4.51); Absolute Neutrophil Count 5.1 X10^3/uL (2.0-7.7); Basophil# 0.02 X10^3/uL; Basophil% 0.2 % (0-1); Eosinophil# 0.53 X10^3/uL; Eosinophils% 6.1 % (0-5); Hematocrit 42.7 % (40-54); Hemoglobin 13.9 g/dl (13.0-16.5); Lymphocyte # 1.97 X10^3/ul (4.0); Lymphocyte % 22.8 % (19-41); Mean Corp Hgb Conc 32.6 g/gl (32-36); Mean Platelet Vol. 9.6 fl (6.2-12.0); Monocyte# 0.99 X10^3/uL; Monocyte% 11.5 % (0-10); Neutrophil # 5.12 X10^3/uL (2.7-7.7); Neutrophil % 59.3 % (47-70); POSITIVE COUNT NO; POSITIVE DIFFERENTIAL NO; POSITIVE MORPHOLOGY NO; Platelet Count 210 K/mm3 (150-450); RBC Distribution Width CV 14.4 % (11.6-14.6); RBC Distribution Width SD 46.3 fl (35.1-43.9); White Blood Count 8.6 K/mm3 (4.4-11.0)
--- NOTE | 2018-02-14 22:03 | PCM.HP.STD ---
Problem List (1) Fall Status: Acute Qualifiers: Encounter type: initial encounter Qualified Code(s): W19.XXXA - Unspecified fall, initial encounter (2) Paroxysmal atrial fibrillation Status: Chronic (3) H/O coronary artery bypass surgery Status: Chronic (4) Presence of cardiac pacemaker Status: Chronic (5) Obstructive sleep apnea Status: Chronic (6) HLD (hyperlipidemia) Status: Chronic Qualifiers: (7) DM2 (diabetes mellitus, type 2) Status: Chronic Qualifiers: (8) Benign essential HTN Status: Chronic (9) Chronic venous insufficiency Status: Chronic (10) Edema of both legs Status: Chronic (11) Morbid obesity Status: Chronic History of Present Illness Date of Admission: 02/14/18 Chief Complaint: fall hit head The patient is a 77 year old male patient with a complex past medical history fell to the side as he missed his wheel chair and hit his head into the door frame. He may have passed out but is unclear. He denies chest pain or shortness of breath or dizziness before he fell. He denies head ache. His ct scan was negative for intracranial bleeding. He will be admitted for observation overnight due to being on anticoagulation. Other workup is negative at this time. 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) Atherosclerosis of coronary artery of [place] heart without angina pectoris (Chronic) 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) CHF (congestive heart failure) (Chronic) Obstructive sleep apnea (Chronic) HLD (hyperlipidemia) (Chronic) DM2 (diabetes mellitus, type 2) (Chronic) Benign essential HTN (Chronic) Chronic venous insufficiency (Chronic) Swelling of lower extremity (Chronic) Edema of both legs (Chronic) Morbid obesity (Chronic) Prostate cancer (Chronic) Venous stasis dermatitis of both lower extremities (Chronic) Status post cholecystectomy (Chronic) Cholecystitis (Chronic) Asthma (Chronic) Allergies lisinopril Allergy (Verified 02/14/18 18:31) Unknown sertraline Allergy (Verified 02/14/18 18:31) Unknown Home Medications: Ambulatory Orders Medication Instructions Recorded Aspirin [Aspirin, Baby] 81 mg PO DAILY 06/09/13 Metformin HCl [Glucophage] 500 mg PO TIDCM 06/09/13 Nitroglycerin [Nitrostat] 0.4 mg SUBLINGUAL Q5M PRN 06/09/13 Tamsulosin HCl [Flomax] 0.4 mg PO QHS 06/09/13 traZODone [Desyrel] 50 mg PO QHS PRN PRN 07/26/14 Magnesium Oxide [Mag-Ox 400] 400 mg PO DAILY 10/07/15 Atorvastatin Calcium [Lipitor] 80 mg PO QHS 10/30/15 Polyethylene Glycol 3350 [Miralax] 17 gm PO BID PRN PRN 10/30/15 Oxybutynin [Ditropan] 5 mg PO TID 01/27/16 Metoprolol Tartrate [Lopressor 25 mg PO BID 05/08/16 (beta emily)] Acetaminophen [Mapap] 1,000 mg PO Q8H PRN PRN 10/17/16 Furosemide [Lasix] 40 mg PO DINNER 10/17/16 Furosemide [Lasix] 80 mg PO DAILY 10/17/16 Glimepiride [Amaryl] 1 mg PO DAILY 05/03/17 Ranitidine [Zantac] 300 mg PO DAILY 05/03/17 Docusate Sodium [Colace] 100 mg PO DAILY 11/19/17 Guaifenesin/Dextromethorphan 5 ml PO PRN PRN 11/19/17 [Robitussin Cough-Chest Dm Liq] Hydrocodone Bitart/Apap 5-325 1 tablet PO Q6H PRN PRN 11/19/17 [[place] 5/325] Pantoprazole Sodium [Protonix] 40 mg PO DAILY 11/19/17 Rivaroxaban [Xarelto] 20 mg PO DAILY 11/19/17 Sucralfate [Carafate] 1 gm PO TID 11/19/17 Surgical History: coronary bypass surgery - 1998, total hip arthroplasty - Bilateral, - - Open cholecystectomy - September 2015. Open reduction and internal fixation of a right hip fracture. Psychiatric History: No pertinent psych hx Smoking Status: Never smoker - *Family History Maternal History Items: Cancer - Lung, - Paternal History Items: Heart Disease Review of Systems Constitutional: Denies: Chills, Fever, Weight Change HEENT: Denies: Head Aches, Sinus Congestion, Sinus Drainage Cardiovascular: Denies: Chest Pain, Palpitations Respiratory: Denies: Cough, Shortness of breath at rest, Sputum production Gastrointestinal: Denies: Abdominal Pain, Nausea, Vomiting Genitourinary: Denies: Dysuria Musculoskeletal: Denies: Joint Pain, Joint Tenderness Skin: Denies: Rash, Wounds Neurological: Denies: Numbness, Tingling, Focal weakness Psychiatric: Denies: Anxiety, Depression, Homicidal Ideations, Suicidal Ideations Hematologic/ Lymphatic: Denies: Easy Bruising, Easy Bleeding VTE Information - Inpt Only VTE Present on Admission: No VTE Mechan Device Prophylaxis: None VTE Pharm Prophylaxis ordered?: No Patient Problems: Active and Suspected Problems Fall (Acute) - Physical Exam General: Alert, Oriented x3, Cooperative HEENT: Atraumatic, PERRLA, EOMI, Normocephalic Neck: Supple Lungs: Clear to auscultation, Normal air movement Cardiovascular: Regular rate, No murmurs Abdomen: Bowel Sounds Present, Soft, Non Tender Extremities: No edema, Capillary Refill Less than 3 Seconds Skin: No rashes, No breakdown Musculoskeletal: No Tenderness to Palpation of Joints or Extremities Neurological: Cranial nerves II-XII grossly intact Psych/Mental Status: Normal Affect, Appropriate Vital Signs Temp Pulse Resp BP Pulse Ox 99.3 F H 68 18 145/77 H 98 02/14/18 18:28 02/14/18 21:44 02/14/18 21:44 02/14/18 21:44 02/14/18 21:44 Oxygen Delivery Method Room Air Weight: 332 lb Body Mass Index (BMI) 45.0 Laboratory Tests Past 24 Hrs 02/14/18 02/14/18 21:30 21:30 WBC 8.6 RBC 4.80 Hgb 13.9 Hct 42.7 MCV 89.0 MCH 29.0 MCHC 32.6 RDW 14.4 RDW Differential 46.3 H Plt Count 210 MPV 9.6 Immature Gran % (Auto) 0.100 Neut % (Auto) 59.3 Lymph % (Auto) 22.8 [place] % (Auto) 11.5 H Eos % (Auto) 6.1 H Baso % (Auto) 0.2 Absolute Neuts (auto) 5.1 Absolute Lymphs (auto) 1.97 Total Counted Not Reportable Sodium Pending Potassium Pending Chloride Pending Carbon Dioxide Pending Anion Gap Pending BUN Pending Creatinine Pending Est GFR (MDRD) Af Amer Pending Est GFR (MDRD) Non-Af Pending BUN/Creatinine Ratio Pending Glucose Pending Calcium Pending Assessment/Plan All Active Problems Fall (Acute) Ileus following gastrointestinal surgery (Resolved) Abdominal pain (Resolved) Chest pain (Resolved) Chest pain (Resolved) Heme + stool (Resolved) Admit to medical surgical floor - neuro checks q 4 hours - continue routine home medications - If ok in am then dc home Code Visit OBSV E&M: 93312 Initial observation care L2
[2018-02-14 22:22] LABS: Anion Gap 9 (5-15); BUN 17 mg/dL (7-18); BUN/Creat Ratio 17.9 RATIO (10-20); Calcium,Total 8.9 mg/dL (8.5-10.1); Chloride 102 mmol/L (98-107); Creatinine, Serum 0.95 mg/dL (0.70-1.30); EST Glomerular Filtration Rate 82 mL/min (>60); Est Glom Filt Rate - Afr Amer 99 mL/min (>60); Estimated Creatinine Clearance 72.61 ml/min; Glucose 89 mg/dL (74-106); Potassium 3.7 mmol/L (3.5-5.1); Sodium Level 140 mmol/L (136-145)
[2018-02-14 22:48] VITALS: BMI 44.3; BMI 44.4
[2018-02-14 23:02] VITALS: BP 133/56; PULSE 69; RESP 18; TEMP 37; O2SAT 95
[2018-02-14 23:46] LABS: Bedside Glucose 103 mg/dL (70-110)
[2018-02-15] VITALS (7 sets, daily range): BP systolic 108–133; BP diastolic 55–75; PULSE 59–69; RESP 16–22; TEMP 36.6–36.7; O2SAT 93–98
[2018-02-15] MEDS: Oxybutynin 5 MG Tablet PO ×3 (00:40→14:40)
[2018-02-15] MEDS: Atorvastatin Calcium 80 MG Tablet PO (00:41)
[2018-02-15] MEDS: Metoprolol Tartrate 25 MG Tablet PO ×2 (00:41→08:19)
[2018-02-15] MEDS: Tamsulosin HCl 0.4 MG Capsule PO (00:42)
[2018-02-15] MEDS: Acetaminophen 500 MG Tablet 1000 MG PO (04:03)
[2018-02-15] MEDS: Sucralfate 1 GM Tablet PO ×2 (06:52→11:25)
[2018-02-15] MEDS: Furosemide 80 MG Tablet PO (08:19)
[2018-02-15] MEDS: Famotidine 20 MG Tablet 40 MG PO (08:20)
[2018-02-15] MEDS: Glimepiride 1 MG Tablet PO (08:20)
[2018-02-15] MEDS: Pantoprazole Sodium 40 MG Tablet PO (08:20)
--- NOTE | 2018-02-15 10:29 | CASEMGMT ---
Social Work Note Per previous notes, pt is from [facility]. SW placed a call to [facility] and left a message updating of pt's admission and inquiring if pt is able to return to [facility] at discharge. BREEZY waiting for call back. Dr. Vargas is discharging pt today and PT/OT will evaluate pt before discharge to determine if pt will need HHC at discharge. Plan: Return to [facility] at discharge with HHC if needed. Jie Rogel ASSISTANT PROFESSOR OF FORESTRY, MERCHANDISE CLERK
--- NOTE | 2018-02-15 11:00 | NURSING ---
home med list reconciled per MD request.
--- NOTE | 2018-02-15 11:03 | PCM.DC ---
- Discharge Diagnoses Current Active Problems: Current Active and Chronic Problems Fall (Acute) Reason(s) for Visit for Discharge Instructions: Fall You will use the following diet at home:: Calorie/Carbohydrate Controlled (specify 1200, 1400, etc), Cardiac Your food should be the consistency of: Regular Your liquids should be the consistency of: Regular/Thin Discharge Activity: Return to Normal Activity Additional Instructions: Let your primary doctor know if you develop severe/persistent headaches in the next coming weeks as well as nausea or Vomiting. You should follow-up with your doctor within 2 weeks Allergies/Adverse Reactions: Allergies lisinopril Allergy (Verified 02/14/18 18:31) Unknown sertraline Allergy (Verified 02/14/18 18:31) Unknown Medications to take at Discharge Aspirin [Aspirin, Baby] 81 mg PO DAILY 06/09/13 Nitroglycerin [Nitrostat] 0.4 mg SUBLINGUAL Q5M PRN 06/09/13 Magnesium Oxide [Mag-Ox 400] 400 mg PO DINNER 10/07/15 Oxybutynin [Ditropan] 5 mg PO TID 01/27/16 Metoprolol Tartrate [Lopressor (beta emily)] 25 mg PO BID 05/08/16 Acetaminophen [Mapap] 1,000 mg PO Q8H PRN PRN 10/17/16 Furosemide [Lasix] 40 mg PO DINNER 10/17/16 Furosemide [Lasix] 80 mg PO DAILY 10/17/16 Glimepiride [Amaryl] 1 mg PO DAILY 05/03/17 Docusate Sodium [Colace] 100 mg PO DAILY 11/19/17 Guaifenesin/Dextromethorphan [Robitussin Cough-Chest Dm Liq] 5 ml PO PRN PRN 11/19/17 Pantoprazole Sodium [Protonix] 40 mg PO DAILY 11/19/17 Sucralfate [Carafate] 1 gm PO TID 11/19/17 Bisacodyl [Dulcolax] 10 mg RECTAL DAILY PRN 02/15/18 Triamcinolone 0.025% Cream [Kenalog] 1 applic TOPICAL BID PRN 02/15/18 Primary Care Physician: Bertrand Warner MD [Primary Care Provider] - Please follow up with your Primary Care Physician in: within 2 weeks Proposed Discharge Date: 02/15/18
--- NOTE | 2018-02-15 11:06 | DCINST_ITS ---
- Discharge Diagnoses Current Active Problems: Current Active and Chronic Problems Fall (Acute) Reason(s) for Visit for Discharge Instructions: Fall You will use the following diet at home:: Calorie/Carbohydrate Controlled ( specify 1200, 1400, etc), Cardiac Your food should be the consistency of: Regular Your liquids should be the consistency of: Regular/Thin Discharge Activity: Return to Normal Activity Additional Instructions: Let your primary doctor know if you develop severe/ persistent headaches in the next coming weeks as well as nausea or Vomiting. You should follow-up with your doctor within 2 weeks Allergies/Adverse Reactions: Allergies lisinopril Allergy (Verified 02/14/18 18:31) Unknown sertraline Allergy (Verified 02/14/18 18:31) Unknown Medications to take at Discharge Aspirin [Aspirin, Baby] 81 mg PO DAILY 06/09/13 Nitroglycerin [Nitrostat] 0.4 mg SUBLINGUAL Q5M PRN 06/09/13 Magnesium Oxide [Mag-Ox 400] 400 mg PO DINNER 10/07/15 Oxybutynin [Ditropan] 5 mg PO TID 01/27/16 Metoprolol Tartrate [Lopressor (beta emily)] 25 mg PO BID 05/08/16 Acetaminophen [Mapap] 1,000 mg PO Q8H PRN PRN 10/17/16 Furosemide [Lasix] 40 mg PO DINNER 10/17/16 Furosemide [Lasix] 80 mg PO DAILY 10/17/16 Glimepiride [Amaryl] 1 mg PO DAILY 05/03/17 Docusate Sodium [Colace] 100 mg PO DAILY 11/19/17 Guaifenesin/Dextromethorphan [Robitussin Cough-Chest Dm Liq] 5 ml PO PRN PRN Pantoprazole Sodium [Protonix] 40 mg PO DAILY 11/19/17 Sucralfate [Carafate] 1 gm PO TID 11/19/17 Bisacodyl [Dulcolax] 10 mg RECTAL DAILY PRN 02/15/18 Triamcinolone 0.025% Cream [Kenalog] 1 applic TOPICAL BID PRN 02/15/18 Primary Care Physician: Bertrand Warner MD [Primary Care Provider] - Please follow up with your Primary Care Physician in: within 2 weeks Proposed Discharge Date: 02/15/18
--- NOTE | 2018-02-15 11:06 | PCM.DC.SUM ---
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) Atherosclerosis of coronary artery of [place] heart without angina pectoris (Chronic) 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) CHF (congestive heart failure) (Chronic) Obstructive sleep apnea (Chronic) HLD (hyperlipidemia) (Chronic) DM2 (diabetes mellitus, type 2) (Chronic) Benign essential HTN (Chronic) Chronic venous insufficiency (Chronic) Swelling of lower extremity (Chronic) Edema of both legs (Chronic) Morbid obesity (Chronic) Prostate cancer (Chronic) Venous stasis dermatitis of both lower extremities (Chronic) Status post cholecystectomy (Chronic) Cholecystitis (Chronic) Asthma (Chronic) Hospital Course and Treatment Imaging Results: Clinical Impression(s) from Imaging Studies Brain CT 02/14/18 19:18 IMPRESSION: Chronic involutional changes of the brain. Electronically Signed: Roger Nickerson MD at 20:10 EDT , Service support , Cervical Spine CT 02/14/18 19:18 IMPRESSION: Multilevel degenerative disc disease and spinal stenosis. No fracture. Recommend cervical MRI. Electronically Signed: Roger Nickerson MD at 20:34 EDT , Service support , Lumbar Spine X-Ray 02/14/18 19:18 IMPRESSION: Compression fractures T12 and L1, age indeterminate. Diffuse idiopathic skeletal hyperostosis. Electronically Signed: Roger Nickerson MD at 20:53 EDT , Service support , Wrist X-Ray 02/14/18 19:18 IMPRESSION: Normal x-ray examination of the wrist. Electronically Signed: Roger Nickerson MD at 20:42 EDT , Service support , Hip/Pelvis X-Ray 02/14/18 19:45 IMPRESSION: No acute fracture. Total hip arthroplasties. Electronically Signed: Roger Nickerson MD at 20:57 EDT , Service support , None Operations: None Procedures: None Summary of Care Provided: The patient is a 77 year old M with multiple comorbidities who was admitted on 02/14/2018 after a fall in his assisted living facility. Patient complains of pain from his carpal tunnels and both hands. He was transferring back into his wheelchair when he slid on the floor. He hit his head and neck. He is said to have lost consciousness briefly and remembers his neighbors coming in to help him. He was seen through the ED. Imaging of his right hip and back were unremarkable except for T12-L1 compression fractures. Denied any pain in his back. CT scan of the head was negative for any bleeds. Patient was monitored in the hospital overnight with no acute events. He was seen by physical and Occupational Therapy with no skilled needs. He was managed as concussion with loss of consciousness. He will need follow-up with his primary care doctor and workup for T12-L1 compression fractures with osteoporosis workup. Discharge Diet: Low fat/ Low Cholesterol, 2000 mg Sodium Diet Discharge Activity: Return to Normal Activity Home Medications: Medications to take at Discharge Aspirin [Aspirin, Baby] 81 mg PO DAILY 06/09/13 Nitroglycerin [Nitrostat] 0.4 mg SUBLINGUAL Q5M PRN 06/09/13 Magnesium Oxide [Mag-Ox 400] 400 mg PO DINNER 10/07/15 Oxybutynin [Ditropan] 5 mg PO TID 01/27/16 Metoprolol Tartrate [Lopressor (beta emily)] 25 mg PO BID 05/08/16 Acetaminophen [Mapap] 1,000 mg PO Q8H PRN PRN 10/17/16 Furosemide [Lasix] 40 mg PO DINNER 10/17/16 Furosemide [Lasix] 80 mg PO DAILY 10/17/16 Glimepiride [Amaryl] 1 mg PO DAILY 05/03/17 Docusate Sodium [Colace] 100 mg PO DAILY 11/19/17 Guaifenesin/Dextromethorphan [Robitussin Cough-Chest Dm Liq] 5 ml PO PRN PRN 11/19/17 Pantoprazole Sodium [Protonix] 40 mg PO DAILY 11/19/17 Sucralfate [Carafate] 1 gm PO TID 11/19/17 Bisacodyl [Dulcolax] 10 mg RECTAL DAILY PRN 02/15/18 Triamcinolone 0.025% Cream [Kenalog] 1 applic TOPICAL BID PRN 02/15/18 Primary Care Physician: Bertrand Warner MD [Primary Care Provider] - Please follow up with your Primary Care Physician in: within 2 weeks Disposition: Asstd Living/Non-Skill NH Minutes spent on discharge:: 45 Patient Condition:: Stable Medical Necessity - Tobacco Use Smoking Status: Never smoker Tobacco Use: Non-smoker Meaningful Use Info Meaningful Use Diagnoses (Choose all that apply): None applicable Code Visit OBSV E&M: 47891 Observation care discharge
[2018-02-15] MEDS: Docusate Sodium 100 MG Capsule PO (11:25)
[2018-02-15] MEDS: 0.9% NaCl Peripheral Flush Adult/Peds IV (11:25)
[2018-02-15] MEDS: Ondansetron 4 MG/2 ML Vial IV (11:25)
[2018-02-15] MEDS: Magnesium Oxide 400 MG Tablet PO (11:25)
--- NOTE | 2018-02-15 13:11 | CASEMGMT ---
Addendum entered by Jie Rogel 02/15/18 15:18: Pt is alert and orientated x4 and denied wanting this worker to call any family or friends to update them on pt returning to [facility]. Original Note: Social Work Note Dr. Vargas is discharging pt today. Pt is from [facility]. BREEZY met with pt. Pt confirmed that he is from [facility] and his plan is to return there at discharge. SW informed pt that he is being discharged today. SW asked pt if he has transportation set up or would like this worker to set up transportation. Pt states that he had told the nurse at [facility] that he would need transportation at discharge. BREEZY placed a call to [facility] and spoke with Ryanne and updated her that pt is being discharged today and asked if she would like this worker to set up transportation or if a nurse can transport pt. Ryanne states that she would like this worker to set up transportation. SW placed a call to [facility] and set up transportation via wheelchair for 2:30-3:00pm. SW updated pt of this and that he will be transported via wheelchair through [facility]. Pt had mentioned [facility] transporting him. This SW informed pt that this worker had already set up transportation through [facility] and asked pt if this was ok. SW informed pt that this worker can call [facility] if he would rather be transported through them. Pt agreeable to being transported through [facility]. Pt states he used to use [facility] but switched insurance and didn't know if [facility] accepted his new insurance. BREEZY updated RN Omaira, cemetery workers supervisor Shell, and charge nurse Yuki of transportation time. Transportation form in discharge folder and copy in pt's chart. Pt has medicaid/UHC insurance as secondary so wheelchair van should be covered for transportation. It should be noted that Dr. Vargas had mentioned earlier that PT/OT was going to work with pt and if pt needed PT/OT that he would need HHC at [facility]. This SW reviewed PT/OT notes. PT/OT are stating that pt does not demonstrate need for skilled PT/OT services. Plan: Discharge to [facility] through [facility] via wheelchair van at 2:00pm. Jie Rogel HEALTH AND WELLNESS COACH, QUALITY CONTROL SPECIALIST
== END 2018-02-15 14:45 | disposition home health service (06) ==
LOC: ED 20:03 → MS3 22:22
PROVIDERS: Admitting Provider Family Medicine; Emergency Provider Emergency Medicine; Family Provider Family Medicine; PCP Family Medicine; Visit Provider Internal Medicine
DX: S06.0X9A Concussion with loss of consciousness of unspecified duration, initial encounter (principal); S32.019A Unspecified fracture of first lumbar vertebra, initial encounter for closed fracture; S22.089A Unspecified fracture of T11-T12 vertebra, initial encounter for closed fracture; S16.1XXA Strain of muscle, fascia and tendon at neck level, initial encounter; S63.501A Unspecified sprain of right wrist, initial encounter; S70.01XA Contusion of right hip, initial encounter; W05.0XXA Fall from non-moving wheelchair, initial encounter; Y93.89 Activity, other specified; Y92.9 Unspecified place or not applicable; I48.0 Paroxysmal atrial fibrillation; J45.909 Unspecified asthma, uncomplicated; E66.01 Morbid (severe) obesity due to excess calories; E78.5 Hyperlipidemia, unspecified; G47.33 Obstructive sleep apnea (adult) (pediatric); I11.0 Hypertensive heart disease with heart failure; I50.9 Heart failure, unspecified; E11.51 Type 2 diabetes mellitus with diabetic peripheral angiopathy without gangrene; I48.91 Unspecified atrial fibrillation; Z95.0 Presence of cardiac pacemaker; Z68.41 Body mass index [BMI] 40.0-44.9, adult; Z71.3 Dietary counseling and surveillance; Z85.46 Personal history of malignant neoplasm of prostate; Z95.1 Presence of aortocoronary bypass graft; Z79.01 Long term (current) use of anticoagulants
CPT/HCPCS: 70450; 72100; 72125; 73110; 73502; 80048; 82962; 85025; 96374; 97162; 97165; 99218; 99284; A4216; G0378; J2405

== ENCOUNTER 2018-08-05 12:34 | Observation (INO) | payer MEDICARE, MEDICAID, SELFPAY ==
[2018-08-05] VITALS (9 sets, daily range): BP systolic 123–135; BP diastolic 53–66; PULSE 60–69; RESP 16–22; TEMP 36.6–37.1; O2SAT 91–95; BMI 46.5; BMI 45.4; BMI 45.5
--- NOTE | 2018-08-05 12:47 | EKG12_ITS ---
Test Reason : CHEST PAIN Blood Pressure : / mmHG Vent. Rate : 061 BPM Atrial Rate : 058 BPM P-R Int : 244 ms QRS Dur : 164 ms QT Int : 472 ms P-R-T Axes : 000 -61 104 degrees QTc Int : 475 ms AV dual-paced rhythm with prolonged AV conduction Abnormal ECG Confirmed by LAURA MEEK, SHAR ([id number]), art editor SANTI RODRIGUEZ ([id number]) on 08/08/2018 7:44:13 AM Referred By: DC Confirmed By:SHAR SANCHEZ MD
--- NOTE | 2018-08-05 12:48 | RAD_ITS ---
STUDY: X-RAY CHEST REASON FOR EXAM: Male, 77 years old. Chest pain. TECHNIQUE: Single AP portable upright view of the chest. The patient is in a lordotic position. COMPARISON: PA and lateral chest x-ray November 20, 2017. FINDINGS: Dual-lead right subclavian cardiac pacemaker again noted. Moderate elevation of right diaphragm unchanged. Ill-defined left perihilar and bibasilar density may reflect local volume loss and crowding, inflammatory change, or asymmetric pulmonary venous congestion. There is no demonstrated pleural abnormality. There is stable mild cardiac enlargement. Sternal cerclage wires and vascular clips are present from a prior sternotomy and coronary artery bypass graft procedure (CABG). Normal mediastinum. Normal visualized aortic arch and descending thoracic aorta. Poorly visualized thoracic spine. Normal visualized ribs, clavicles, and shoulders. There is no demonstrated abnormality of the visualized soft tissue structures of the upper abdomen. RAD/Chest 1 View (Portable) IMPRESSION: 1. Prior median sternotomy and CABG. Stable mild cardiac enlargement. Dual lead cardiac pacemaker again noted. 2. Ill-defined left perihilar and bibasilar density suggesting volume loss and crowding, inflammatory change, or asymmetric pulmonary venous congestion. Electronically Signed: Jose Martin Arellano MD at 13:16 EST , Service support ,
[2018-08-05 13:26] LABS: Absolute Lymphocyte Count 1.44 X10^3/ul (0.83-4.51); Absolute Neutrophil Count 5.3 X10^3/uL (2.0-7.7); Basophil# 0.02 X10^3/uL; Basophil% 0.2 % (0-1); Eosinophil# 0.49 X10^3/uL; Eosinophils% 5.9 % (0-5); Hematocrit 41.9 % (40-54); Hemoglobin 14.1 g/dl (13.0-16.5); Lymphocyte # 1.44 X10^3/ul (4.0); Lymphocyte % 17.3 % (19-41); Mean Corp Hgb Conc 33.7 g/gl (32-36); Mean Corpuscular Volume 89.1 fL (80-94); Mean Platelet Vol. 9.6 fl (6.2-12.0); Monocyte# 1.02 X10^3/uL; Monocyte% 12.3 % (0-10); Neutrophil # 5.34 X10^3/uL (2.7-7.7); Neutrophil % 64.2 % (47-70); Platelet Count 207 K/mm3 (150-450); RBC Distribution Width CV 14.9 % (11.6-14.6); RBC Distribution Width SD 48.3 fl (35.1-43.9); White Blood Count 8.3 K/mm3 (4.4-11.0)
[2018-08-05 13:27] LABS: POSITIVE COUNT NO; POSITIVE DIFFERENTIAL NO; POSITIVE MORPHOLOGY NO
[2018-08-05 13:41] LABS: Anion Gap 8 (5-15); BUN 22 mg/dL (7-18); BUN/Creat Ratio 27.3 RATIO (10-20); Calcium,Total 8.7 mg/dL (8.5-10.1); Chloride 105 mmol/L (98-107); Creatinine, Serum 0.81 mg/dL (0.70-1.30); EST Glomerular Filtration Rate 99 mL/min (>60); Est Glom Filt Rate - Afr Amer 119 mL/min (>60); Estimated Creatinine Clearance 85.16 ml/min; Glucose 151 mg/dL (74-106); Potassium 3.6 mmol/L (3.5-5.1); Sodium Level 142 mmol/L (136-145)
[2018-08-05 13:54] LABS: D-Dimer Quantitative (DVT/PE) 0.65 FEU/ug/m (0.27-0.49)
--- NOTE | 2018-08-05 13:58 | CT_ITS ---
STUDY: CTA CHEST REASON FOR EXAM: Male, 77 years old. Stable chest pain. Shortness of breath and diaphoresis. RADIATION DOSAGE (If Supplied By Facility): CTDIvol = ( 16.69 ) mGy, DLP = ( 777.11 ) mGycm TECHNIQUE: The examination was performed with the intravenous administration of 100 ml of Isovue 370 contrast material. Post-processing of the angiographic images was performed, with multiplanar reformation and 3D reconstruction. Individualized dose optimization techniques were used for this CT. COMPARISON: Comparison is made with prior examination dated May 03, 2017. FINDINGS: Normal enhancement of the main pulmonary artery and right and left pulmonary arteries. Normal enhancement of the bilateral peripheral pulmonary arteries. There is no demonstrated pulmonary embolism. Normal thoracic aorta and visualized great vessels. There is no demonstrated aortic dissection. Sternal cerclage wires and vascular clips are present from a prior sternotomy and coronary artery bypass graft procedure (CABG). There are calcifications of the coronary arteries. Normal mediastinum. Normal hilar regions. Normal visualized trachea and bronchi. The lungs are well expanded. Mild increased markings in the posterior medial segment of the right lower lobe suggestive of a possible scarring. Normal pleura. Normal chest wall structures. There are degenerative changes of thoracic spine. There is a 2.3 cm hypodensity in the left adrenal gland. This may represent an adrenal adenoma. CT/CTA Chest W/WO Contrast IMPRESSION: No evidence of a pulmonary embolism. Electronically Signed: Christiano Odom MD at 14:58 EST Tel [phone], Service support ,
--- NOTE | 2018-08-05 15:12 | ED.DCSUM_ITS ---
- ER Visit Summary Date of Service: 08/05/18 Chief Complaint: Chest pain History of Present Illness: The patient is a 77 M who presents with chest pain. Started earlier today. He describes a pressure across his chest and radiating up into his jaw. Breathing made it worse. Nothing made it better. He did have associated shortness of breath. His last stress test was a year ago. He says it was normal. He took no nitroglycerin for it at home. He does have a history of coronary artery disease and had a CABG in the late 90s. Physical Examination: Vital signs reviewed. HEENT exam unremarkable. Heart is regular rate and rhythm without murmurs. Lungs are clear to auscultation. Abdomen is soft and nontender. Extremities reveal no edema. Peripheral pulses are equal. Skin exam normal. Neurologic exam normal. Test Results: EKG is a paced rhythm with no ST changes. Chest x-ray reveals chronic changes. Laboratory studies are unremarkable except for a d-dimer of 0.65. CTA of the chest reveals no PE. Emergency Department Course and Treatment: She received 4 aspirin by EMS. His ALVERTO score is 4. Patient will be admitted to the hospital for chest pain rule out. Treatment Plan: [] Disposition: Admit Impression: Chest pain This note was generated with [employer] dictation software. It may contain incorrect words, spelling, and punctuation that were not noted in review of the chart prior to signing ED Disposition - Plan for ED Patient: Chief Complaint: Chest Pain Referrals: Bertrand Warner MD [Primary Care Provider] -
--- NOTE | 2018-08-05 15:28 | PCM.HP.STD ---
<Jeramy So - Last Filed: 08/05/18 15:28> Problem List (1) Chest pain Status: Acute (2) Benign essential HTN Status: Chronic (3) DM2 (diabetes mellitus, type 2) Status: Chronic (4) H/O coronary artery bypass surgery Status: Chronic (5) HLD (hyperlipidemia) Status: Chronic (6) Morbid obesity Status: Chronic (7) Obstructive sleep apnea Status: Chronic (8) Paroxysmal atrial fibrillation Status: Chronic (9) Presence of cardiac pacemaker Status: Chronic (10) Prostate cancer Status: Chronic History of Present Illness Date of Admission: 08/05/18 Chief Complaint: chest pain The patient is a 77 year old M with pmhx of CAD with CABGx2 + stent in 1998, pt of Dr. Valdes, hx of PAfib, CHF, AV block s/p PM placement last year, DMt2, HLD, HTN, who presented to the ER with c/o chest pain. This first started wednesday as a left lower chest sharp pain 5/10 dull pain nonradiating. Today the pain was up to 8/10 and in 2 [address], the same left sided pain, and also midsternal chest heaviness, and radiation into the left shoulder. He had associated dizziness, SOB, and sweating. Pain was aggravated by laying down, better when standing up. Currently he still has this discomfort at 5/10. He had a stress test october of this year which was negative. He states he has seen Dr. Valdes since then but has had no further medication changes or plans for further workup. He has received aspirin but no nitro. He had an elevated d dimer but negative CTA chest. He does not smoke. 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) Atherosclerosis of coronary artery of [place] heart without angina pectoris (Chronic) 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) CHF (congestive heart failure) (Chronic) Obstructive sleep apnea (Chronic) HLD (hyperlipidemia) (Chronic) DM2 (diabetes mellitus, type 2) (Chronic) Benign essential HTN (Chronic) Chronic venous insufficiency (Chronic) Swelling of lower extremity (Chronic) Edema of both legs (Chronic) Morbid obesity (Chronic) Prostate cancer (Chronic) Venous stasis dermatitis of both lower extremities (Chronic) Status post cholecystectomy (Chronic) Cholecystitis (Chronic) Asthma (Chronic) Allergies lisinopril Allergy (Verified 08/05/18 12:35) Unknown sertraline Allergy (Verified 08/05/18 12:35) Unknown Home Medications: Ambulatory Orders Medication Instructions Recorded Aspirin [Aspirin, Baby] 81 mg PO DAILY 06/09/13 Nitroglycerin [Nitrostat] 0.4 mg SUBLINGUAL Q5M PRN 06/09/13 Magnesium Oxide [Mag-Ox 400] 400 mg PO DINNER 10/07/15 Oxybutynin [Ditropan] 5 mg PO TID 01/27/16 Metoprolol Tartrate [Lopressor 25 mg PO BID 05/08/16 (beta emily)] Furosemide [Lasix] 40 mg PO DINNER 10/17/16 Furosemide [Lasix] 80 mg PO DAILY 10/17/16 Glimepiride [Amaryl] 2 mg PO DAILY 05/03/17 Docusate Sodium [Colace] 100 mg PO BID 11/19/17 Pantoprazole Sodium [Protonix] 40 mg PO DAILY 11/19/17 Atorvastatin Calcium [Lipitor] 80 mg PO QHS 08/05/18 Calcium Carbonate 600 mg PO BID 08/05/18 Cefadroxil [Duricef] 500 mg PO BID 08/05/18 Cholecalciferol (VIT D3) [Vitamin 2,000 unit PO DAILY 08/05/18 D] Metformin HCl [Glucophage] 500 mg PO TIDCM 08/05/18 Polyethylene Glycol 3350 [Miralax] 17 gm PO BID 08/05/18 Ranitidine [Zantac] 300 mg PO DAILY@1700 08/05/18 Tamsulosin HCl [Flomax] 0.4 mg PO QHS 08/05/18 traZODone [Desyrel] 50 mg PO QHS PRN 08/05/18 Surgical History: coronary bypass surgery - 1998, total hip arthroplasty - Bilateral, - - Open cholecystectomy - September 2015. Open reduction and internal fixation of a right hip fracture. Psychiatric History: No pertinent psych hx Lives: Alone Smoking Status: Never smoker Alcohol: None Drugs: None - *Family History Maternal History Items: Cancer - Lung, - Paternal History Items: Heart Disease Sibling History Items: Heart Disease Review of Systems Constitutional: Denies: Chills, Fever, Weight Change HEENT: Denies: Head Aches, Sinus Congestion, Sinus Drainage Cardiovascular: Reports: Chest Pain, Heaviness. Denies: Palpitations Respiratory: Reports: Shortness of Breath. Denies: Cough, Shortness of breath at rest, Sputum production Gastrointestinal: Denies: Abdominal Pain, Nausea, Vomiting Genitourinary: Denies: Dysuria Musculoskeletal: Denies: Joint Pain, Joint Tenderness Skin: Denies: Rash, Wounds Neurological: Denies: Numbness, Tingling, Focal weakness Psychiatric: Denies: Anxiety, Depression, Homicidal Ideations, Suicidal Ideations Hematologic/ Lymphatic: Denies: Easy Bruising, Easy Bleeding VTE Information - Inpt Only VTE Present on Admission: No VTE Mechan Device Prophylaxis: None VTE Pharm Prophylaxis ordered?: Yes Patient Problems: Active and Suspected Problems Chest pain (Acute) - Physical Exam General: Alert, Oriented x3, Cooperative HEENT: Atraumatic, PERRLA, EOMI, Normocephalic Neck: Supple, No JVD, Negative Carotid Bruits Lungs: Clear to auscultation, Normal air movement Cardiovascular: Regular rate, No murmurs Abdomen: Bowel Sounds Present, Soft, Non Tender, Obese Extremities: Capillary Refill Less than 3 Seconds, Edema Skin: No rashes, No breakdown Musculoskeletal: No Tenderness to Palpation of Joints or Extremities Neurological: Cranial nerves II-XII grossly intact Psych/Mental Status: Normal Affect, Appropriate Vital Signs Temp Pulse Resp BP Pulse Ox 98.6 F 64 16 123/65 H 95 08/05/18 12:53 08/05/18 14:34 08/05/18 14:34 08/05/18 14:34 08/05/18 14:34 Oxygen Flow Rate (L/min) 2 Oxygen Delivery Method Nasal Cannula Weight: 343 lb 0.628 oz Body Mass Index (BMI) 46.5 Laboratory Tests Past 24 Hrs 08/05/18 08/05/18 08/05/18 12:44 12:44 12:44 WBC 8.3 RBC 4.70 Hgb 14.1 Hct 41.9 MCV 89.1 MCH 30.0 MCHC 33.7 RDW 14.9 H RDW Differential 48.3 H Plt Count 207 MPV 9.6 Immature Gran % (Auto) 0.100 Neut % (Auto) 64.2 Lymph % (Auto) 17.3 L [place] % (Auto) 12.3 H Eos % (Auto) 5.9 H Baso % (Auto) 0.2 Absolute Neuts (auto) 5.3 Absolute Lymphs (auto) 1.44 Total Counted Not Reportable D-Dimer Quant (PE/DVT) 0.65 H* Sodium 142 Potassium 3.6 Chloride 105 Carbon Dioxide 29.0 Anion Gap 8 BUN 22 H Creatinine 0.81 Estim Creat Clear Calc 85.16 Est GFR (MDRD) Af Amer 119 Est GFR (MDRD) Non-Af 99 BUN/Creatinine Ratio 27.3 H Glucose 151 H Calcium 8.7 Troponin I < 0.015 Assessment/Plan All Active Problems Fall (Acute) Chest pain (Acute) Ileus following gastrointestinal surgery (Resolved) Abdominal pain (Resolved) Chest pain (Resolved) Chest pain (Resolved) Heme + stool (Resolved) 1. Chest pain - cycle enzymes, repeat stress test in AM. D dimer elevated but neg CTA chest. EKG paced with AV conduction delay. Trop neg. 2. Hx CAD prior stent and CABGx2 - pt of Dr. Valdes. Continue home mes. 3. DMt2 with morbid obesity - dietary eval - SSI, hold amaryl 4. Hx AV block, s/p PM placement last year. 5. Hx PAfib - rate / rhythm controlled. Not on OAC as he has had hematemesis with OAC in the past. 6. Hx CHF - no acute exacerbation - continue PO lasix. 7. GERD - ppi + carafate DVT ppx: lovenox This patient was seen by Jeramy So PA-C under the supervision of Dr. Hernandez. <Killian Hernandez F - Last Filed: 08/05/18 18:17> History of Present Illness The patient is a 77 year old M [] Past Medical History Allergies lisinopril Allergy (Verified 08/05/18 12:35) Unknown sertraline Allergy (Verified 08/05/18 12:35) Unknown - Physical Exam Vital Signs Temp Pulse Resp BP Pulse Ox 97.9 F 66 20 H 135/66 H 94 08/05/18 16:48 08/05/18 16:58 08/05/18 16:48 08/05/18 16:48 08/05/18 16:48 Oxygen Flow Rate (L/min) 2 Oxygen Delivery Method Nasal Cannula Weight: 335 lb 3.2 oz Body Mass Index (BMI) 45.4 Intake and Output for Last 24 Hours 08/03/18 08/04/18 08/05/18 23:59 23:59 23:59 Intake Total 120 / 120 Balance 120 / 120 Laboratory Tests Past 24 Hrs 08/05/18 08/05/18 08/05/18 12:44 12:44 12:44 WBC 8.3 RBC 4.70 Hgb 14.1 Hct 41.9 MCV 89.1 MCH 30.0 MCHC 33.7 RDW 14.9 H RDW Differential 48.3 H Plt Count 207 MPV 9.6 Immature Gran % (Auto) 0.100 Neut % (Auto) 64.2 Lymph % (Auto) 17.3 L [place] % (Auto) 12.3 H Eos % (Auto) 5.9 H Baso % (Auto) 0.2 Absolute Neuts (auto) 5.3 Absolute Lymphs (auto) 1.44 Total Counted Not Reportable D-Dimer Quant (PE/DVT) 0.65 H* Sodium 142 Potassium 3.6 Chloride 105 Carbon Dioxide 29.0 Anion Gap 8 BUN 22 H Creatinine 0.81 Estim Creat Clear Calc 85.16 Est GFR (MDRD) Af Amer 119 Est GFR (MDRD) Non-Af 99 BUN/Creatinine Ratio 27.3 H Glucose 151 H Calcium 8.7 Troponin I < 0.015 08/05/18 16:42 WBC RBC Hgb Hct MCV MCH MCHC RDW RDW Differential Plt Count MPV Immature Gran % (Auto) Neut % (Auto) Lymph % (Auto) [place] % (Auto) Eos % (Auto) Baso % (Auto) Absolute Neuts (auto) Absolute Lymphs (auto) Total Counted D-Dimer Quant (PE/DVT) Sodium Potassium Chloride Carbon Dioxide Anion Gap BUN Creatinine Estim Creat Clear Calc Est GFR (MDRD) Af Amer Est GFR (MDRD) Non-Af BUN/Creatinine Ratio Glucose Calcium Troponin I < 0.015 Code Visit Addendum: Dr. Hernandez I personally examined the patient and reviewed the chart. I agree with the above. 77-year-old male with significant past medical history of coronary artery disease status post CABG x2 and a stent in 1998, he is presenting with left-sided chest pain over the last couple of days that was more severe today. Will trend troponins and set him up for a nuclear stress test in the morning. His last stress test was in October of this year and was primary in the ER which was worked up with a CTA chest which was also negative for PE. OBSV E&M: 85226 Initial observation care L3
[2018-08-05] MEDS: Morphine 2 MG/ML Syringe 1 MG IV (18:15)
[2018-08-05] MEDS: 0.9% NaCl Peripheral Flush Adult/Peds IV (18:15)
[2018-08-05] MEDS: Ondansetron 4 MG/2 ML Vial IV (18:15)
[2018-08-05] MEDS: Acetaminophen 325 MG Tablet 650 MG PO (20:01)
[2018-08-05] MEDS: Tamsulosin HCl 0.4 MG Capsule PO (21:44)
[2018-08-05] MEDS: Polyethylene Glycol 3350 17 GM PACKET PO (21:44)
[2018-08-05] MEDS: Docusate Sodium 100 MG Capsule PO (21:44)
[2018-08-05] MEDS: Atorvastatin Calcium 80 MG Tablet PO (21:44)
[2018-08-05] MEDS: Metoprolol Tartrate 25 MG Tablet PO (21:44)
[2018-08-05] MEDS: Oxybutynin 5 MG Tablet PO (21:44)
[2018-08-05 22:21] LABS: Bedside Glucose 95 mg/dL (70-110)
[2018-08-06] VITALS (7 sets, daily range): BP systolic 106–131; BP diastolic 49–62; PULSE 63–85; RESP 18; TEMP 36.5–36.8; O2SAT 93–95
[2018-08-06] MEDS: Aspirin 81 MG TAB.CHEW PO (05:52)
[2018-08-06] MEDS: Oxybutynin 5 MG Tablet PO (05:52)
--- NOTE | 2018-08-06 05:55 | EKG12_ITS ---
Test Reason : AM EKG Blood Pressure : / mmHG Vent. Rate : 070 BPM Atrial Rate : 068 BPM P-R Int : 000 ms QRS Dur : 162 ms QT Int : 468 ms P-R-T Axes : 000 -57 103 degrees QTc Int : 505 ms Ventricular-paced rhythm Abnormal ECG When compared with ECG of 05-AUG-2018 13:30, MANUAL COMPARISON REQUIRED, DATA IS UNCONFIRMED Confirmed by LAURA MEEK, SHAR ([id number]), loan expeditor SANTI RODRIGUEZ ([id number]) on 08/10/2018 4:01:58 PM Referred By: DR LIVINGSTON Confirmed By:SHAR SANCHEZ MD
[2018-08-06 06:24] LABS: Absolute Lymphocyte Count 1.56 X10^3/ul (0.83-4.51); Absolute Neutrophil Count 3.7 X10^3/uL (2.0-7.7); Basophil# 0.03 X10^3/uL; Basophil% 0.5 % (0-1); Eosinophil# 0.47 X10^3/uL; Eosinophils% 7.2 % (0-5); Hematocrit 43.3 % (40-54); Hemoglobin 13.8 g/dl (13.0-16.5); Lymphocyte # 1.56 X10^3/ul (4.0); Lymphocyte % 23.9 % (19-41); Mean Corp Hgb Conc 31.9 g/gl (32-36); Mean Corpuscular Hgb 28.7 pg (27.0-32.0); Mean Platelet Vol. 9.8 fl (6.2-12.0); Monocyte# 0.77 X10^3/uL; Monocyte% 11.8 % (0-10); Neutrophil % 56.4 % (47-70); Platelet Count 206 K/mm3 (150-450); RBC Distribution Width CV 15.1 % (11.6-14.6); RBC Distribution Width SD 49.9 fl (35.1-43.9); Red Blood Count 4.81 M/mm3 (4.6-6.2); White Blood Count 6.5 K/mm3 (4.4-11.0)
[2018-08-06 06:27] LABS: POSITIVE COUNT NO; POSITIVE DIFFERENTIAL NO; POSITIVE MORPHOLOGY NO
[2018-08-06 06:31] LABS: International Normalized Ratio 1.3; Prothrombin Time (Protime)PT. 15.7 SECONDS (11.7-14.9)
[2018-08-06 06:32] LABS: Partial Thromboplast Time 32.5 Seconds (24.1-36.2)
[2018-08-06 06:45] LABS: Anion Gap 7 (5-15); BUN 18 mg/dL (7-18); Calcium,Total 8.6 mg/dL (8.5-10.1); Chloride 105 mmol/L (98-107); EST Glomerular Filtration Rate 87 mL/min (>60); Est Glom Filt Rate - Afr Amer 105 mL/min (>60); Estimated Creatinine Clearance 76.64 ml/min; Glucose 116 mg/dL (74-106); Potassium 3.9 mmol/L (3.5-5.1); Sodium Level 141 mmol/L (136-145)
[2018-08-06 06:56] LABS: Bedside Glucose 128 mg/dL (70-110)
[2018-08-06] MEDS: Morphine 2 MG/ML Syringe 1 MG IV (08:25)
[2018-08-06] MEDS: 0.9% NaCl Peripheral Flush Adult/Peds IV (08:25)
[2018-08-06 11:30] LABS: Bedside Glucose 160 mg/dL (70-110)
--- NOTE | 2018-08-06 11:50 | STRESSREP ---
Stress Test Report Pharmacologic myocardial perfusion stress test. 77-year-old male with a history of chest pain. Next Medications aspirin, Lipitor, metoprolol, Glucophage. Stress protocol: Resting EKG demonstrates normal sinus rhythm with a left bundle branch block rate of 68 bpm is noted. 0.4 mg of regadenoson was infused per usual protocol followed Intravenous saline flush injection continuous EKG monitoring was performed. The patient maintained atrial fibrillation throughout the recording. The maximum heart rate attained was 114 bpm which was 79% of maximum predicted heart rate the maximum workload was 1 metabolic equivalent. Resting blood pressure 116/62 final blood pressure is 118/66. Myocardial perfusion protocol. 13.9 mCi of technetium 99m sestamibi was injected at rest. 0.4 mg of regadenoson was infused. Laparoscopic infusion of 42.4 mCi of technetium 99m sestamibi was injected stress images were obtained stress and rest images are reconstructed and compared in the short axis vertical and horizontal long axis. Gated images were also obtained Perfusion SPECT analysis: Review of the stress images demonstrate normal uptake of tracer noted in the septum anterior wall and lateral wall. The inferior wall has reduced perfusion on the stress and resting images suggestive of a previous inferior infarct. There is no improvement noted to suggest ischemia. Gated SPECT analysis: The gated ejection fraction is noted to be 46% with hypokinesis of the inferior wall. 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 No ischemia noted. Mild cardiomyopathy present. Left bundle branch block present.
[2018-08-06] MEDS: Metoprolol Tartrate 25 MG Tablet PO (11:55)
[2018-08-06] MEDS: Furosemide 80 MG Tablet PO (11:55)
[2018-08-06] MEDS: Calcium (Elemental) 500 MG Tablet PO (11:55)
[2018-08-06] MEDS: Docusate Sodium 100 MG Capsule PO (11:55)
[2018-08-06] MEDS: Pantoprazole Sodium 40 MG Tablet PO (11:56)
[2018-08-06] MEDS: Polyethylene Glycol 3350 17 GM PACKET PO (12:03)
--- NOTE | 2018-08-06 12:09 | DCINST_ITS ---
- Discharge Diagnoses Current Active Problems: Current Active and Chronic Problems Chest pain (Acute) You will use the following diet at home:: Cardiac Your food should be the consistency of: Regular Your liquids should be the consistency of: Regular/Thin Discharge Activity: Return to Normal Activity Allergies/Adverse Reactions: Allergies lisinopril Allergy (Verified 08/05/18 12:35) Unknown sertraline Allergy (Verified 08/05/18 12:35) Unknown Medications to take at Discharge Aspirin [Aspirin, Baby] 81 mg PO DAILY 06/09/13 Nitroglycerin [Nitrostat] 0.4 mg SUBLINGUAL Q5M PRN 06/09/13 Magnesium Oxide [Mag-Ox 400] 400 mg PO DINNER 10/07/15 Oxybutynin [Ditropan] 5 mg PO TID 01/27/16 Metoprolol Tartrate [Lopressor (beta emily)] 25 mg PO BID 05/08/16 Furosemide [Lasix] 40 mg PO DINNER 10/17/16 Furosemide [Lasix] 80 mg PO DAILY 10/17/16 Glimepiride [Amaryl] 2 mg PO DAILY 05/03/17 Docusate Sodium [Colace] 100 mg PO BID 11/19/17 Pantoprazole Sodium [Protonix] 40 mg PO DAILY 11/19/17 Atorvastatin Calcium [Lipitor] 80 mg PO QHS 08/05/18 Calcium Carbonate 600 mg PO BID 08/05/18 Cefadroxil [Duricef] 500 mg PO BID 08/05/18 Cholecalciferol (VIT D3) [Vitamin D3] 2,000 unit PO DAILY 08/05/18 Metformin HCl [Glucophage] 500 mg PO TIDCM 08/05/18 Polyethylene Glycol 3350 [Miralax] 17 gm PO BID 08/05/18 Ranitidine [Zantac] 300 mg PO DAILY@1700 08/05/18 Tamsulosin HCl [Flomax] 0.4 mg PO QHS 08/05/18 traZODone [Desyrel] 50 mg PO QHS PRN 08/05/18 Primary Care Physician: Bertrand Warenr MD [Primary Care Provider] - Please follow up with your Primary Care Physician in: 1-2 weeks Test Results: Test results from this visit will be discussed in further detail at your follow- up appointment, if applicable. Please Follow Up With: Braulio Stanley MD When: 3-4 weeks
--- NOTE | 2018-08-06 12:15 | DS.PCM_ITS ---
Addendum entered and electronically signed by RETA Chaidez 08/06/18 12:28: Code Visit added for Discharge: Hycodan 5 cc qhs prn pain. 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) Atherosclerosis of coronary artery of [place] heart without angina pectoris (Chronic) 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) CHF (congestive heart failure) (Chronic) Obstructive sleep apnea (Chronic) HLD (hyperlipidemia) (Chronic) DM2 (diabetes mellitus, type 2) (Chronic) Benign essential HTN (Chronic) Chronic venous insufficiency (Chronic) Swelling of lower extremity (Chronic) Edema of both legs (Chronic) Morbid obesity (Chronic) Prostate cancer (Chronic) Venous stasis dermatitis of both lower extremities (Chronic) Status post cholecystectomy (Chronic) Cholecystitis (Chronic) Asthma (Chronic) Hospital Course and Treatment Imaging Results: 08/06/18 05:55 Nuclear Stress Test - Chemical [NM] AM (NON MEDS) Operations: None Procedures: Stress test Summary of Care Provided: Hospital course: The patient is a 77 year old M with pmhx as above who presented to the hospital with two episodes of chest pain, one several days prior that began at rest and was better with exertion, the second the day of presentation. He described both a dull left lower chest pain and midsternal heaviness with radiation into the left shoulder. He had a stress test in 10/2017 which was negative at that time, and he follows Dr. Stanley. He had a negative EKG, negative troponin, negative CXR. D dimer was elevated but CTA chest was negative. He was admitted to the PCU on tele. No events on tele. Negative repeat ekg. Negative serial troponin. The following moring he had a stress test which was negative. It was felt that his pain was musculoskeletal. He was discharged home in stable condition and advised to follow up with his PCP in 1-2 weeks and with cardiology in 3-4 weeks. This patient was seen by Jeramy So PA-C under the supervision of Dr. Spann. [] Patient Problems: Active and Suspected Problems Chest pain (Acute) - Physical Exam General: Alert, Oriented x3, Cooperative HEENT: Atraumatic, PERRLA, EOMI, Normocephalic Neck: Supple, No JVD, Negative Carotid Bruits Lungs: Clear to auscultation, Normal air movement Cardiovascular: Regular rate, No murmurs Abdomen: Bowel Sounds Present, Soft, Non Tender, Obese Extremities: No edema, Capillary Refill Less than 3 Seconds Skin: No rashes, No breakdown, - - BL distal LE with chronic venous skin changes - hyperpigmentation. Musculoskeletal: No Tenderness to Palpation of Joints or Extremities Neurological: Cranial nerves II-XII grossly intact Psych/Mental Status: Normal Affect, Appropriate Vital Signs Temp Pulse Resp BP Pulse Ox 98.0 F 76 18 131/62 H 94 08/06/18 11:50 08/06/18 11:55 08/06/18 11:50 08/06/18 11:50 08/06/18 11:50 Oxygen Flow Rate (L/min) 2 Oxygen Delivery Method Room Air Weight: 335 lb 3.2 oz Body Mass Index (BMI) 45.4 Intake and Output for Last 24 Hours 08/04/18 08/05/18 08/06/18 23:59 23:59 23:59 Intake Total 120 / 120 530 / 530 Balance 120 / 120 530 / 530 Laboratory Tests Past 24 Hrs 08/05/18 08/05/18 08/05/18 12:44 12:44 12:44 WBC 8.3 RBC 4.70 Hgb 14.1 Hct 41.9 MCV 89.1 MCH 30.0 MCHC 33.7 RDW 14.9 H RDW Differential 48.3 H Plt Count 207 MPV 9.6 Immature Gran % (Auto) 0.100 Neut % (Auto) 64.2 Lymph % (Auto) 17.3 L Charles % (Auto) 12.3 H Eos % (Auto) 5.9 H Baso % (Auto) 0.2 Absolute Neuts (auto) 5.3 Absolute Lymphs (auto) 1.44 Total Counted Not Reportable PT INR APTT D-Dimer Quant (PE/DVT) 0.65 H* Sodium 142 Potassium 3.6 Chloride 105 Carbon Dioxide 29.0 Anion Gap 8 BUN 22 H Creatinine 0.81 Estim Creat Clear Calc 85.16 Est GFR (MDRD) Af Amer 119 Est GFR (MDRD) Non-Af 99 BUN/Creatinine Ratio 27.3 H Glucose 151 H Calcium 8.7 Troponin I < 0.015 08/05/18 08/05/18 08/06/18 16:42 20:00 06:10 WBC 6.5 RBC 4.81 Hgb 13.8 Hct 43.3 MCV 90.0 MCH 28.7 MCHC 31.9 L RDW 15.1 H RDW Differential 49.9 H Plt Count 206 MPV 9.8 Immature Gran % (Auto) 0.200 Neut % (Auto) 56.4 Lymph % (Auto) 23.9 Charles % (Auto) 11.8 H Eos % (Auto) 7.2 H Baso % (Auto) 0.5 Absolute Neuts (auto) 3.7 Absolute Lymphs (auto) 1.56 Total Counted Not Reportable PT INR APTT D-Dimer Quant (PE/DVT) Sodium Potassium Chloride Carbon Dioxide Anion Gap BUN Creatinine Estim Creat Clear Calc Est GFR (MDRD) Af Amer Est GFR (MDRD) Non-Af BUN/Creatinine Ratio Glucose Calcium Troponin I < 0.015 < 0.015 08/06/18 08/06/18 06:10 06:10 WBC RBC Hgb Hct MCV MCH MCHC RDW RDW Differential Plt Count MPV Immature Gran % (Auto) Neut % (Auto) Lymph % (Auto) Charles % (Auto) Eos % (Auto) Baso % (Auto) Absolute Neuts (auto) Absolute Lymphs (auto) Total Counted PT 15.7 H INR 1.3 APTT 32.5 D-Dimer Quant (PE/DVT) Sodium 141 Potassium 3.9 Chloride 105 Carbon Dioxide 29.0 Anion Gap 7 BUN 18 Creatinine 0.90 Estim Creat Clear Calc 76.64 Est GFR (MDRD) Af Amer 105 Est GFR (MDRD) Non-Af 87 BUN/Creatinine Ratio 20.0 Glucose 116 H Calcium 8.6 Troponin I POC Glucose 08/06/18 08/06/18 08/05/18 11:24 06:52 21:40 POC Glucose 160 H 128 H 95 Discharge Diet: Low fat/ Low Cholesterol, 1800 Calorie Control Diet, 2000 mg Sodium Diet Discharge Activity: Return to Normal Activity Home Medications: Medications to take at Discharge Aspirin [Aspirin, Baby] 81 mg PO DAILY 06/09/13 Nitroglycerin [Nitrostat] 0.4 mg SUBLINGUAL Q5M PRN 06/09/13 Magnesium Oxide [Mag-Ox 400] 400 mg PO DINNER 10/07/15 Oxybutynin [Ditropan] 5 mg PO TID 01/27/16 Metoprolol Tartrate [Lopressor (beta emily)] 25 mg PO BID 05/08/16 Furosemide [Lasix] 40 mg PO DINNER 10/17/16 Furosemide [Lasix] 80 mg PO DAILY 10/17/16 Glimepiride [Amaryl] 2 mg PO DAILY 05/03/17 Docusate Sodium [Colace] 100 mg PO BID 11/19/17 Pantoprazole Sodium [Protonix] 40 mg PO DAILY 11/19/17 Atorvastatin Calcium [Lipitor] 80 mg PO QHS 08/05/18 Calcium Carbonate 600 mg PO BID 08/05/18 Cefadroxil [Duricef] 500 mg PO BID 08/05/18 Cholecalciferol (VIT D3) [Vitamin D3] 2,000 unit PO DAILY 08/05/18 Metformin HCl [Glucophage] 500 mg PO TIDCM 08/05/18 Polyethylene Glycol 3350 [Miralax] 17 gm PO BID 08/05/18 Ranitidine [Zantac] 300 mg PO DAILY@1700 08/05/18 Tamsulosin HCl [Flomax] 0.4 mg PO QHS 08/05/18 traZODone [Desyrel] 50 mg PO QHS PRN 08/05/18 Primary Care Physician: Bertrand Warner MD [Primary Care Provider] - Please follow up with your Primary Care Physician in: 1-2 weeks Please Follow Up With: Braulio Stanley MD When: 3-4 weeks Disposition: Home Minutes spent on discharge:: 35 Patient Condition:: Stable Medical Necessity - Tobacco Use Smoking Status: Never smoker Meaningful Use Info Meaningful Use Diagnoses (Choose all that apply): None applicable
--- NOTE | 2018-08-06 12:59 | NURSING ---
attempted to call [facility] to give report x4. Received answering machine each time. Left message @ 1300 that pt would be leaving around 1315 and to call back for report.
--- OUTSIDE RECORDS SUMMARY | 2018-09-21 08:44 | XMS RPT_ITS ---
:1940 Author Organization OHIP Support Name Relationship Address Phone JOSHUA KENDRICK Unavailable [address] + [place] [address] R Unavailable Unavailable Unavailable KENDRICK, JOSHUA Unavailable Unavailable + [place] [address] R Unavailable Unavailable Unavailable KENDRICK, JOSHUA Unavailable Unavailable + [place] [address] R Unavailable Unavailable Unavailable KENDRICK, JOSHUA Unavailable Unavailable + [place] [address] R Unavailable Unavailable Unavailable KENDRICK, JOSHUA Unavailable Unavailable + [place] [address] R Unavailable Unavailable Unavailable KENDRICK, JOSHUA Unavailable Unavailable + [place] [address] R Unavailable Unavailable Unavailable KENDRICK, JOSHUA Unavailable [address] + [place] [address] R Unavailable Unavailable Unavailable KENDRICK, JOSHUA Unavailable [address] + [place], [place] R Unavailable Unavailable Unavailable KENDRICK, JOSHUA Unavailable [address] + [place], [place] R Unavailable Unavailable Unavailable KENDRICK, JOSHUA Unavailable [address] + [place], [place] R Unavailable Unavailable Unavailable KENDRICK, JOSHUA Unavailable [address] + [place], [place] R Unavailable Unavailable Unavailable KENDRICK, JOSHUA Unavailable [address] + [place], [place] Unavailable Unavailable Unavailable KENDRICK, JOSHUA Unavailable [address] + [place], [place] R Unavailable Unavailable Unavailable KENDRICK, JOSHUA Unavailable [address] + [place], [place] R Unavailable Unavailable Unavailable KENDRICK, JOSHUA Unavailable [address] + [place], [place] R Unavailable Unavailable Unavailable KENDRICK, JOSHUA Unavailable [address] + [place], [place] R Unavailable Unavailable Unavailable KENDRICK, JOSHUA Unavailable [address] + [place], [place] R Unavailable Unavailable Unavailable KENDRICK, JOSHUA Unavailable [address] + [place], [place] . R Unavailable Unavailable Unavailable Care Team Providers Name Role Phone Person [facility] Unavailable Killian Livingston Admitting Unavailable Neeru Spann Attending Unavailable Killian Livingston Admitting Unavailable [facility], Bertrand Primary Care Unavailable Nimesh Livingstonolas F Consulting Unavailable Oumou Livingstons F Attending Unavailable Jeramy So Attending Unavailable Nimesh Livingstonolas F Admitting Unavailable Jeramy So Attending Unavailable [facility] Bertrand Primary Care Unavailable Zana, Neeru Consulting Unavailable Jaclyn Chu Attending Unavailable Maribel Herrera Attending Unavailable Carolyn, Bertrand Referring Unavailable Carolyn, Bertrand Primary Care Unavailable Carolyn, Bertrand Primary Care Unavailable White, Magdalena Admitting Unavailable Kenny, David Attending Unavailable White, Magdalena Admitting Unavailable White, Magdalena Attending Unavailable Carolyn, Bertrand Primary Care Unavailable White, Magdalena Consulting Unavailable White, Magdalena Admitting Unavailable Carolyn, Bertrand Primary Care Unavailable Kenny, David Consulting Unavailable Kenny, David Attending Unavailable Rogelio, [place] Attending Unavailable White, Magdalena Referring Unavailable Rogelio, [place] Attending Unavailable Semenronda, Neeru Referring Unavailable Chelo Jones Attending Unavailable Karen, Chelo Referring Unavailable Carolyn, Bertrand Primary Care Unavailable Carolyn, Bertrand Primary Care Unavailable BEBA ROBLES Attending Unavailable BEBA ROBLES Referring Unavailable Pierre Mercado Attending Unavailable White, Magdalena Referring Unavailable Carolyn, Bertrand Primary Care Unavailable Gilbert, Harrison Admitting Unavailable [place], [place] Attending Unavailable Harrison Gilbert Attending Unavailable Carolyn, Bertrand Primary Care Unavailable Gilbert Harrison Admitting Unavailable [place], [place] Attending Unavailable Carolyn, Bertrand Primary Care Unavailable [place], [place] Consulting Unavailable Maribel Herrera Attending Unavailable Carolyn, Bertrand Referring Unavailable Bertrand Leon Primary Care Unavailable CAROLYN BERTRAND A Attending Unavailable VETOJOAN JAIME (PA) Attending Unavailable CHAVEZ, RUDDY Referring Unavailable VETOVITZ, JOAN (PA) Referring Unavailable VETOVIMUSHTAQ, JOAN (PA) Attending Unavailable CHAVEZ, RUDDY Referring Unavailable CHAVEZ, RUDDY Attending Unavailable CHAVEZ, RUDDY Referring Unavailable REBECCA SANDERS (RD) Attending Unavailable MELLY MCCLOUD (PA) Attending Unavailable RUDDY CHAVEZ Attending Unavailable VETOADDISON, JOAN (PA) Referring Unavailable MELLY MCCLOUD (PA) Attending Unavailable CAROLYN, BERTRAND A Referring Unavailable MELLY MCCLOUD (PA) Referring Unavailable BRAULIO ROBLERO Referring Unavailable KATHY, RUDDY Referring Unavailable IRIS MENDOSA (PA) Referring Unavailable CAROLYNBERTRAND WISEMAN Attending Unavailable CAROLYN, BERTRAND A Referring Unavailable VETOJOAN JAIME (PA) Attending Unavailable REBECCA SANDERS (RD) Attending Unavailable MELLY MCCLOUD (PA) Attending Unavailable BERTRAND LEON A Referring Unavailable CHAVEZ HUFF Attending Unavailable BERTRAND LEON A Referring Unavailable CAROLYNBERTRAND WISEMAN Attending Unavailable DONA CHAVEZLEY Attending Unavailable CAROLYN, BERTRAND A Referring Unavailable REBECCA SANDERS (RD) Attending Unavailable RUDDY CHAVEZ Attending Unavailable DONA CHAVEZLEY Referring Unavailable REBECCA SANDERS (RD) Attending Unavailable MELLY MCCLOUD (PA) Attending Unavailable CAROLYN, BERTRAND A Referring Unavailable SOHAIL GRIFFITH (CARTRIDGE ASSEMBLER) Attending Unavailable MELLY MCCLOUD (PA) Referring Unavailable BRAULIO ROBLERO Attending Unavailable BRAULIO ROBLERO Referring Unavailable JOAO SALEEM Attending Unavailable MELLY MCCLOUD (PA) Referring Unavailable MARTÍNEZ HOLLOWAY (PA) Attending Unavailable MELLY MCCLOUD (PA) Referring Unavailable REBECCA SANDERS (RD) Attending Unavailable CAROLYN BERTRAND A Referring Unavailable CAROLYN, BERTRAND A Attending Unavailable MELLY MCCLOUD (PA) Referring Unavailable REBECCA SANDERS (RD) Attending Unavailable CAROLYN BERTRAND A Referring Unavailable BRAULIO ROBLERO Attending Unavailable OSBALDO BRAULIO E Referring Unavailable KATHY, RUDDY Admitting Unavailable DONA CHAVEZLEY Attending Unavailable CHAVEZ HUFF Admitting Unavailable CHAVEZ HUFF Attending Unavailable BRAULIO ROBLERO Attending Unavailable BRAULIO ROBLERO Referring Unavailable Bertrand Leon Primary Care Unavailable BRAULIO ROBLERO Attending Unavailable BRAULIO ROBLERO Referring Unavailable Bertrand Leon Primary Care Unavailable PROBLEMS PROBLEMS DATE TYPE CONDITION / CODE ATTENDING STATUS SOURCE Unknown R07.9 - Chest pain, Rogelio, Pierre Active [facility] unspecified / Community R07.9(ICD-10) Hospital Repository Unknown Z95.0 - Presence of Maribel Herrera Active [facility] 9 cardiac pacemaker / Community Z95.0(ICD-10) Hospital Repository Unknown I44.2 - Maribel Herrera Active [place] 9 Atrioventricular Community block, complete / Hospital I44.2(ICD-10) Repository Unknown I49.49 - Other Maribel Herrera Active [facility] 9 premature Community depolarization / Hospital I49.49(ICD-10) Repository Unknown I50.9 - Heart failure, Maribel Herrera Active [place] 9 unspecified / Community I50.9(ICD-10) Hospital Repository Active Wedge compression Active [place] [address] fracture of first Clinic Main lumbar vertebra, [place] initial encounter for Repository closed fracture / S32.010A(ICD-10) Active Hemoptysis / OLCARLOS, [facility] 8 R04.2(ICD-10) [facility] Other [place] Repository Active Simple chronic OLBRYCH, [facility] 8 bronchitis / [facility] Other J41.0(ICD-10) [place] Repository Active Carpal tunnel CHAVEZ, [facility] 8 syndrome, left upper [facility] Other limb / G56.02(ICD-10) [place] Repository Active Lesion of ulnar nerve, KATHY [place] [address] left upper limb / [facility] Other G56.22(ICD-10) [place] Repository Unknown M54.32 - Sciatica, BEBA ROBLES Active [place] 8 left side / Community M54.32(ICD-10) Hospital Repository Active Encounter for other NA Active [place] [address] preprocedural Clinic Main examination / [place] Z01.818(ICD-10) Repository Active Essential (primary) NA Active [place] 8 hypertension / Clinic Main I10(ICD-10) [place] Repository Active Localized edema / NA Active [place] 6 R60.0(ICD-10) [facility] Main [place] Repository Active Spontaneous ecchymoses NA Active [place] 8 / R23.3(ICD-10) Clinic Main [place] Repository Active Atherosclerotic heart OSBALDO [facility] 8 disease of [place] [facility] Other coronary artery [place] without angina Repository pectoris / I25.10(ICD-10) Admitting Unknown / UNK(Unknown) OSBALDO, Active [place] [address] diagnosis [facility] Repository Unknown R94.31 - Abnormal Rogelio, [place] Active [place] 8 electrocardiogram Community [ECG] [EKG] / Hospital R94.31(ICD-10) Repository Unknown I44.1 - Maribel Herrera Active [place] 8 Atrioventricular Community block, second degree / Hospital I44.1(ICD-10) Repository Unknown R00.1 - Bradycardia, Maribel Herrera Active [place] 8 unspecified / Community R00.1(ICD-10) Hospital Repository Unknown I48.0 - Paroxysmal Maribel Herrera Active [place] 8 atrial fibrillation / Community I48.0(ICD-10) Hospital Repository Active Pain in left knee / NA Active [place] 8 M25.562(ICD-10) [facility] Main [place] Repository Active Pain in left hip / NA Active [place] 8 M25.552(ICD-10) [facility] Main [place] Repository Active Unknown / UNK(Unknown) CAROLYN [facility] 8 BERTRAND Leonard [facility] Main [place] Repository PROCEDURES PROCEDURES No Procedure Records FoundRESULTS RESULTS DISCHARGE SUMMARY Observed: 08/18/2018 Status: F Source: [place] 2:33 PM [facility] REPOSITORY [facility] Medical Records Department [address] [place] [address] Discharge Summary 08/06/18 1210 MR#: [id number] Acct: [id number] Name: MAYCO KENDRICK Demetra Rep #: [id number] : 1940 77 From: Jeramy MCDUFFIE PCP: Bertrand Leon MD Status: DIS ALFREDO Y Location: [place] [address] ADDENDUM by Neeru Spann on 08/18/18 at 1433 Code Visit This patient was seen in conjunction with Jeramy MCDUFFIE. I have independently interviewed and examined the patient and reviewed pertinent historical, laboratory and other data. Please refer to discharge summary note for details of this patient's presentation, findings and recommendations. I have reviewed bases note and concur fully with documented findings. In brief, patient is a 77YO male admitted with chest pain. EKG in the emergency department showed no evidence of ischemia. Troponins were less than 0.015. Chest x-ray revealed no evidence of pleural effusion, infiltrates or pulmonary vascular congestion. A d-dimer was elevated and a CT of the chest was performed and was negative for pulmonary embolus. A nuclear stress test was done on the date of discharge and was negative for ischemia. He was discharged home and will follow up with his primary care physician in 1-2 weeks. Physical examination: I agree with the physical exam as documented by Jeramy So below Assessment: 1. Noncardiac chest pain-likely secondary to musculoskeletal disorder I have discussed my assessment with Jeramy and orders have been written. Inpatient E AND M: [id number] Disch Hosp 08/18/18 1433 <Electronically signed by Mahesh Spann DO> Date Mahesh Spann DO cc: RETA So; Neeru Spann; Bertrand Leon MD * Signed ADDENDUM by RETA So on 08/06/18 at 1228 Code Visit added for Discharge: Hycodan 5 cc [facility] prn pain. 08/06/18 1228 <Electronically signed by Jeramy MCDUFFIE> Date Jeramy So cc: RETA So; Neeru Spann; Bertrand Leon MD * Signed Addendum entered and electronically signed by RETA Chaidez 08/06/18 12:28: Code Visit added for Discharge: Matthewdarenate 5 cc [facility] prn pain. 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) CHF (congestive heart failure) (Chronic) Obstructive sleep apnea (Chronic) HLD (hyperlipidemia) (Chronic) DM2 (diabetes mellitus, type 2) (Chronic) Benign essential HTN (Chronic) Chronic venous insufficiency (Chronic) Swelling of lower extremity (Chronic) Edema of both legs (Chronic) Morbid obesity (Chronic) Prostate cancer (Chronic) Venous stasis dermatitis of both lower extremities (Chronic) Status post cholecystectomy (Chronic) Cholecystitis (Chronic) Asthma (Chronic) Hospital Course and Treatment Imaging Results: 08/06/18 05:55 Nuclear Stress Test - Chemical [NM] AM (NON MEDS) Operations: None Procedures: Stress test Summary of Care Provided: Hospital course: The patient is a 77 year old M with pmhx as above who presented to the hospital with two episodes of chest pain, one several days prior that began at rest and was better with exertion, the second the day of presentation. He described both a dull left lower chest pain and midsternal heaviness with radiation into the left shoulder. He had a stress test in 10/2017 which was negative at that time, and he follows Dr. Roblero. He had a negative EKG, negative troponin, negative CXR. D dimer was elevated but CTA chest was negative. He was admitted to the PCU on tele. No events on tele. Negative repeat ekg. Negative serial troponin. The following moring he had a stress test which was negative. It was felt that his pain was musculoskeletal. He was discharged home in stable condition and advised to follow up with his PCP in 1-2 weeks and with cardiology in 3-4 weeks. This patient was seen by Jeramy So PA-C under the supervision of Dr. Spann. [] Patient Problems: Active and Suspected Problems Chest pain (Acute) - Physical Exam General: Alert, Oriented x3, Cooperative HEENT: Atraumatic, PERRLA, EOMI, Normocephalic Neck: Supple, No JVD, Negative Carotid Bruits Lungs: Clear to auscultation, Normal air movement Cardiovascular: Regular rate, No murmurs Abdomen: Bowel Sounds Present, Soft, Non Tender, Obese Extremities: No edema, Capillary Refill Less than 3 Seconds Skin: No rashes, No breakdown, - - BL distal LE with chronic venous skin changes - hyperpigmentation. Musculoskeletal: No Tenderness to Palpation of Joints or Extremities Neurological: Cranial nerves II-XII grossly intact Psych/Mental Status: Normal Affect, Appropriate Vital Signs Temp Pulse Resp BP Pulse Ox 98.0 F 76 18 131/62 H 94 08/06/18 11:50 08/06/18 11:55 08/06/18 11:50 08/06/18 11:50 08/06/18 11:50 Oxygen Flow Rate (L/min) 2 Oxygen Delivery Method Room Air Weight: 335 lb 3.2 oz Body Mass Index (BMI) 45.4 Intake and Output for Last 24 Hours Intake Total 120 / 120 530 / 530 Balance 120 / 120 530 / 530 Laboratory Tests Past 24 Hrs WBC 8.3 WBC RBC Hgb Hct MCV MCH MCHC POC Glucose POC Glucose 160 H 128 H 95 Discharge Diet: Low fat/ Low Cholesterol, 1800 Calorie Control Diet, 2000 mg Sodium Diet Discharge Activity: Return to Normal Activity Home Medications: Medications to take at Discharge Aspirin [Aspirin, Baby] 81 mg PO DAILY 06/09/13 Nitroglycerin [Nitrostat] 0.4 mg SUBLINGUAL Q5M PRN 06/09/13 Magnesium Oxide [Mag-Ox 400] 400 mg PO DINNER 10/07/15 Oxybutynin [Ditropan] 5 mg PO TID 01/27/16 Metoprolol Tartrate [Lopressor (beta emily)] 25 mg PO BID 05/08/16 Furosemide [Lasix] 40 mg PO DINNER 10/17/16 Furosemide [Lasix] 80 mg PO DAILY 10/17/16 Glimepiride [Amaryl] 2 mg PO DAILY 05/03/17 Docusate Sodium [Colace] 100 mg PO BID 11/19/17 Pantoprazole Sodium [Protonix] 40 mg PO DAILY 11/19/17 Atorvastatin Calcium [Lipitor] 80 mg PO QHS 08/05/18 Calcium Carbonate 600 mg PO BID 08/05/18 Cefadroxil [Duricef] 500 mg PO BID 08/05/18 Cholecalciferol (VIT D3) [Vitamin D3] 2,000 unit PO DAILY 08/05/18 Metformin HCl [Glucophage] 500 mg PO TIDCM 08/05/18 Polyethylene Glycol 3350 [Miralax] 17 gm PO BID 08/05/18 Ranitidine [Zantac] 300 mg PO DAILY@1700 08/05/18 Tamsulosin HCl [Flomax] 0.4 mg PO QHS 08/05/18 traZODone [Desyrel] 50 mg PO QHS PRN 08/05/18 Primary Care Physician: Bertrand Leon MD [Primary Care Provider] - Please follow up with your Primary Care Physician in: 1-2 weeks Please Follow Up With: Braulio Roblero MD When: 3-4 weeks Disposition: Home Minutes spent on discharge:: 35 Patient Condition:: Stable Medical Necessity - Tobacco Use Smoking Status: Never smoker Meaningful Use Info Meaningful Use Diagnoses (Choose all that apply): None applicable 08/06/18 1216 <Electronically signed by Jeramy MCDUFFIE> Date Jeramy MCDUFFIE Cosigner Signature (if applicable): Date CC: RETA So; Neeru Spann; Bertrand Leon MD Signed 12 LEAD ELECTROCARDIOGRAM Observed: 08/10/2018 Status: F Source: [place] 4:02 PM [facility] REPOSITORY [facility] Cardiovascular Services [address] [place] [address] 12 Lead EKG 08/06/18 0548 MR#: [id number] Acct: [id number] Name: MAYCO KENDRICK Rep #: [id number] : 1940 77 From: Pierre Mercado MD Attending Dr: Neeru Spann Status: DIS ALFREDO Ordering Dr: Killian Livingston MD Date: 08/06/18 Location: [facility] Sex: M C Admitted: 08/05/18 Test Reason : AM EKG Blood Pressure : / mmHG Vent. Rate : 070 BPM Atrial Rate : 068 BPM P-R Int : 000 ms QRS Dur : 162 ms QT Int : 468 ms P-R-T Axes : 000 -57 103 degrees QTc Int : 505 ms Ventricular-paced rhythm Abnormal ECG When compared with ECG of 05-AUG-2018 13:30, MANUAL COMPARISON REQUIRED, DATA IS UNCONFIRMED Confirmed by PIERRE MERCADO MD ([id number]), [place] ([id number]) on 08/10/2018 4:01:58 PM Referred By: DR LIVINGSTON Confirmed By:PIERRE MERCADO MD 08/10/18 1602 Date Pierre Mercado MD CC: Neeru Spann; Bertrand Leon MD; Killian Livingston MD Signed 12 LEAD ELECTROCARDIOGRAM Observed: 08/08/2018 Status: F Source: [place] 7:44 AM [facility] REPOSITORY [facility] Cardiovascular Services [address] [place] [address] 12 Lead EKG 08/05/18 1239 MR#: [id number] Acct: [id number] Name: MAYCO KENDRICK Rep #: [id number] : 1940 77 From: Pierre Mercado MD Attending Dr: Neeru Spann Status: DIS ALFREDO Ordering Dr: Reji Vang MD Date: 08/05/18 Location: [facility] Sex: M C Admitted: 08/05/18 Test Reason : CHEST PAIN Blood Pressure : / mmHG Vent. Rate : 061 BPM Atrial Rate : 058 BPM P-R Int : 244 ms QRS Dur : 164 ms QT Int : 472 ms P-R-T Axes : 000 -61 104 degrees QTc Int : 475 ms AV dual-paced rhythm with prolonged AV conduction Abnormal ECG Confirmed by PIERRE MERCADO MD ([id number]), [place] ([id number]) on 08/08/2018 7:44:13 AM Referred By: DC Confirmed By:PIERRE MERCADO MD 08/08/18 0744 Date Pierre Mercado MD CC: Neeru Spann; Bertrand Leon MD; Reji Vang MD Signed DISCHARGE INSTRUCTION Observed: 08/06/2018 Status: F Source: [place] 12:27 PM [facility] REPOSITORY [facility] Medical Records Department [address] [place] [id number] Instructions for Home/Discharge Instructions 08/06/18 1208 MR#: [id number] Acct: [id number] Name: MAYCO KENDRICK Rep #: [id number] : 1940 77 From: Jeramy MCDUFFIE PCP: Bertrand Leon MD Status: ADM ALFREDO ADDENDUM by RETA So on 08/06/18 at 1227 Added for DC: Hycodan, 5cc PO nightly prn for pain 08/06/18 1227 Date Jeramy So cc: Bertrand Leon MD * Signed - Discharge Diagnoses Current Active Problems: Current Active and Chronic Problems Chest pain (Acute) You will use the following diet at home:: Cardiac Your food should be the consistency of: Regular Your liquids should be the consistency of: Regular/Thin Discharge Activity: Return to Normal Activity Allergies/Adverse Reactions: Allergies lisinopril Allergy (Verified 08/05/18 12:35) Unknown sertraline Allergy (Verified 08/05/18 12:35) Unknown Medications to take at Discharge Aspirin [Aspirin, Baby] 81 mg PO DAILY 06/09/13 Nitroglycerin [Nitrostat] 0.4 mg SUBLINGUAL Q5M PRN 06/09/13 Magnesium Oxide [Mag-Ox 400] 400 mg PO DINNER 10/07/15 Oxybutynin [Ditropan] 5 mg PO TID 01/27/16 Metoprolol Tartrate [Lopressor (beta emily)] 25 mg PO BID 05/08/16 Furosemide [Lasix] 40 mg PO DINNER 10/17/16 Furosemide [Lasix] 80 mg PO DAILY 10/17/16 Glimepiride [Amaryl] 2 mg PO DAILY 05/03/17 Docusate Sodium [Colace] 100 mg PO BID 11/19/17 Pantoprazole Sodium [Protonix] 40 mg PO DAILY 11/19/17 Atorvastatin Calcium [Lipitor] 80 mg PO QHS 08/05/18 Calcium Carbonate 600 mg PO BID 08/05/18 Cefadroxil [Duricef] 500 mg PO BID 08/05/18 Cholecalciferol (VIT D3) [Vitamin D3] 2,000 unit PO DAILY 08/05/18 Metformin HCl [Glucophage] 500 mg PO TIDCM 08/05/18 Polyethylene Glycol 3350 [Miralax] 17 gm PO BID 08/05/18 Ranitidine [Zantac] 300 mg PO DAILY@1700 08/05/18 Tamsulosin HCl [Flomax] 0.4 mg PO QHS 08/05/18 traZODone [Desyrel] 50 mg PO QHS PRN 08/05/18 Primary Care Physician: Bertrand Leon MD [Primary Care Provider] - Please follow up with your Primary Care Physician in: 1-2 weeks Test Results: Test results from this visit will be discussed in further detail at your follow-up appointment, if applicable. Please Follow Up With: Braulio Roblero MD When: 3-4 weeks 08/06/18 1209 <Electronically signed by Jeramy MCDUFFIE> Date Jeramy MCDUFFIE CC: Bertrand Leon MD STRESS REPORT Observed: 08/06/2018 Status: F Source: [place] 11:57 AM [facility] REPOSITORY [facility] Cardiovascular Services [place] [address] MR#: [id number] Acct: [id number] Name: MAYCO KENDRICK Rep #: [id number] : 1940 77 From: Pierre Mercado MD Primary Care: Bertrand Leon MD Status: ADM ALFREDO Ordering Dr: Sex: M C Stress Test Report Pharmacologic myocardial perfusion stress test. 77-year-old male with a history of chest pain. Next Medications aspirin, Lipitor, metoprolol, Glucophage. Stress protocol: Resting EKG demonstrates normal sinus rhythm with a left bundle branch block rate of 68 bpm is noted. 0.4 mg of regadenoson was infused per usual protocol followed Intravenous saline flush injection continuous EKG monitoring was performed. The patient maintained atrial fibrillation throughout the recording. The maximum heart rate attained was 114 bpm which was 79% of maximum predicted heart rate the maximum workload was 1 metabolic equivalent. Resting blood pressure 116/62 final blood pressure is 118/66. Myocardial perfusion protocol. 13.9 mCi of technetium 99m sestamibi was injected at rest. 0.4 mg of regadenoson was infused. Laparoscopic infusion of 42.4 mCi of technetium 99m sestamibi was injected stress images were obtained stress and rest images are reconstructed and compared in the short axis vertical and horizontal long axis. Gated images were also obtained Perfusion SPECT analysis: Review of the stress images demonstrate normal uptake of tracer noted in the septum anterior wall and lateral wall. The inferior wall has reduced perfusion on the stress and resting images suggestive of a previous inferior infarct. There is no improvement noted to suggest ischemia. Gated SPECT analysis: The gated ejection fraction is noted to be 46% with hypokinesis of the inferior wall. 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 No ischemia noted. Mild cardiomyopathy present. Left bundle branch block present. 08/06/18 1157 <Electronically signed by Pierre Mercado MD> Date Pierre Mercado MD CC: Neeru Spann; Bertrand Leon MD Date Dictated: 08/06/181149 Date Transcribed: 08/06/181149 Librarian Head: CO Signed BEDSIDE GLUCOSE Collected: 08/06/2018 Status: F Source: BIANKA 11:24 AM [facility] [place] REPOSITORY TYPE CODE TESTS RESULT OUT OF REFERENCE UNITS RANGE LAB L501.080 70-110 mg/dL High BEDSIDE GLU 160 Result Comment: MANAGEMENT OF PATIENT CARE PER NURSING PROTOCOL Performed By: #### L501.080 #### [facility] Point of Care [address] [place], [place] [address] BEDSIDE GLUCOSE Collected: 08/06/2018 Status: F Source: BIANKA 6:52 AM [facility] [place] REPOSITORY TYPE CODE TESTS RESULT OUT OF REFERENCE UNITS RANGE LAB L501.080 70-110 mg/dL High BEDSIDE GLU 128 Result Comment: MANAGEMENT OF PATIENT CARE PER NURSING PROTOCOL Performed By: #### L501.080 #### [facility] Point of Care [address] [place], [place] [address] CBC W/DIFF, AUTOMATED Collected: 08/06/2018 Status: F Source: BIANKA 6:10 AM [facility] [place] REPOSITORY TYPE CODE TESTS RESULT OUT OF RANGE REFERENCE UNITS LAB L100.1000 4.4-11.0 K/mm3 Normal WBC 6.5 LAB L100.1200 4.6-6.2 M/mm3 Normal RBC 4.81 LAB L100.1300 13.0-16.5 g/dl Normal HGB 13.8 LAB L100.1400 40-54 % Normal HCT 43.3 LAB L100.1500 80-94 fL Normal MCV 90.0 LAB L100.1600 27.0-32.0 pg Normal MCH 28.7 LAB L100.1700 32-36 g/gl Low MCHC 31.9 LAB L100.1810 11.6-14.6 % High RDW CV 15.1 LAB L100.1820 35.1-43.9 fl High RDW SD 49.9 LAB L100.1900 150-450 K/mm3 Normal PLT 206 LAB L100.2000 6.2-12.0 fl Normal MPV 9.8 LAB L100.2100 47-70 % Normal NEUT% 56.4 LAB L100.2200 19-41 % Normal LY% 23.9 LAB L100.2300 0-10 % High MONO% 11.8 LAB L100.2400 0-5 % High EO% 7.2 LAB L100.2500 0-1 % Normal BASO% 0.5 LAB L100.2550 0.0-0.9 % Normal IM GRAN % 0.200 Result Comment: IG% - Immature Granulocytes (promyelocytes, myelocytes and metamyelocytes) > 1% indicates that a LEFT SHIFT is Present. LAB L100.2620 2.0-7.7 X10 3/uL Normal Absolute Neut 3.7 LAB L100.2720 0.83-4.51 X10 3/ul Normal Absolute Lymph 1.56 Performed By: #### L100.0100 #### [facility] [address], [place], [id number] PROTHROMBIN TIME W/INR Collected: 08/06/2018 Status: F Source: BIANKA 6:10 AM [facility] [place] REPOSITORY TYPE CODE TESTS RESULT OUT OF RANGE REFERENCE UNITS LAB L300.4150 11.7-14.9 SECONDS High PROTIME 15.7 LAB L300.4200 Normal INR 1.3 Performed By: #### L300.3900, L300.4310 #### [facility] [address] [facility] [place], [place], [address] PARTIAL THROMBOPLAST Collected: 08/06/2018 Status: F Source: BIANKA TIME 6:10 AM [facility] [place] REPOSITORY TYPE CODE TESTS RESULT OUT OF RANGE REFERENCE UNITS LAB L300.4310 24.1-36.2 Seconds Normal PTT 32.5 Performed By: #### L300.3900, L300.4310 #### [facility] [address] [facility] [place], [place], [id number] BASIC METABOLIC Collected: 08/06/2018 Status: F Source: [place]A PROFILE (BMP) 6:10 AM [facility] [place] REPOSITORY TYPE CODE TESTS RESULT OUT OF RANGE REFERENCE UNITS LAB L501.0100 74-106 mg/dL High GLU 116 Result Comment: Fasting Glucose result from 100 to 125 mg/dL suggests IMPAIRED HOMEOSTASIS per A.D.A. criteria. Please note revised GLUCOSE reference range effective 2017. LAB L501.1000 7-18 mg/dL Normal BUN 18 LAB L501.1100 0.70-1.30 mg/dL Normal CREAT,SERUM 0.90 Result Comment: The validity of the calculated GFR AND GFRAA in patients over 70 years has not been determined. Clinical correlation is essential. LAB L501.1110 >60 mL/min Normal EST GFR 87 Result Comment: Non- GFR Calc LAB L501.1115 >60 mL/min Normal EST GFR - AA 105 Result Comment: GFR Calc LAB L501.1255 ml/min Normal Estimated CRCL 76.64 LAB L501.1300 10-20 RATIO Normal BUN/CRE 20.0 LAB L501.2200 8.5-10 mg/dL Normal .1 CA 8.6 LAB L501.5300 136-14 mmol/L Normal 5 NA 141 LAB L501.5600 3.5-5. mmol/L Normal 1 K 3.9 LAB L501.5900 98-107 mmol/L Normal CL 105 LAB L501.6100 21.0-3 mmol/L Normal 2.0 CO2 29.0 LAB L501.6200 5-15 Normal GAP 7 Performed By: #### L500.2500 #### [facility] [address], [place], [address] BEDSIDE GLUCOSE Collected: 08/05/2018 Status: F Source: [place] 9:40 PM [facility] [place] REPOSITORY TYPE CODE TESTS RESULT OUT OF RANGE REFERENCE UNITS LAB L501.080 70-110 mg/dL Normal BEDSIDE GLU 95 Result Comment: MANAGEMENT OF PATIENT CARE PER NURSING PROTOCOL Performed By: #### L501.080 #### [facility] Point of Care [address] [facility] [place], [place] [address] TROPONIN-I Collected: 08/05/2018 Status: F Source: [place] 8:00 PM [facility] [place] REPOSITORY Order Comment: 'TROP' Serial specimen #1, #2 or #3: 3 TYPE CODE TESTS RESULT OUT OF RANGE REFERENCE UNITS LAB L501.4010 <0.045 ng/mL Normal < 0.015 TROPONIN-I Result Comment: TROPONIN-I EXPECTED VALUES <0.045 Negative 0.045 - 0.590 Consistent with Cardiac Damage > OR = 0.600 Critical Value Not every elevated troponin is indicative of MT. These values should be used with clinical judgement in examining the patient's clinical picture for diagnosis. To establish a diagnosis of MT versus myocardial injury, there must be a demonstrated rise and/or fall in the troponin values, in addition to ischemic symptoms, EKG changes, new regional wall motion abnormality, and/or angiographical evidence. PLEASE NOTE: REFERENCE RANGES EDITED 18 Performed By: #### L501.4010 #### [facility] [address] [place], [address] HISTORY AND PHYSICAL Observed: 08/05/2018 Status: F Source: [place] EXAM 6:17 PM [facility] [place] REPOSITORY [facility] Medical Records Department [address] [place] [address] History and Physical 08/05/18 1528 MR#: [id number] Acct: [id number] Name: MAYCO KENDRICK Rep #: [id number] : 1940 77 From: Jeramy MCDUFFIE PCP: Bertrand Leon MD Status: ADM ALFREDO Y Location: [place] [address] <Jeramy So - Last Filed: 08/05/18 15:28> Problem List (1) Chest pain Status: Acute (2) Benign essential HTN Status: Chronic (3) DM2 (diabetes mellitus, type 2) Status: Chronic (4) H/O coronary artery bypass surgery Status: Chronic (5) HLD (hyperlipidemia) Status: Chronic (6) Morbid obesity Status: Chronic (7) Obstructive sleep apnea Status: Chronic (8) Paroxysmal atrial fibrillation Status: Chronic (9) Presence of cardiac pacemaker Status: Chronic (10) Prostate cancer Status: Chronic History of Present Illness Date of Admission: 08/05/18 Chief Complaint: chest pain The patient is a 77 year old M with pmhx of CAD with CABGx2 + stent in 1998, pt of Dr. Valdes, hx of PAfib, CHF, AV block s/p PM placement last year, DMt2, HLD, HTN, who presented to the ER with c/o chest pain. This first started wednesday as a left lower chest sharp pain 5/10 dull pain nonradiating. Today the pain was up to 8/10 and in 2 [address], the same left sided pain, and also midsternal chest heaviness, and radiation into the left shoulder. He had associated dizziness, SOB, and sweating. Pain was aggravated by laying down, better when standing up. Currently he still has this discomfort at 5/10. He had a stress test october of this year which was negative. He states he has seen Dr. Valdes since then but has had no further medication changes or plans for further workup. He has received aspirin but no nitro. He had an elevated d dimer but negative CTA chest. He does not smoke. 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) CHF (congestive heart failure) (Chronic) Obstructive sleep apnea (Chronic) HLD (hyperlipidemia) (Chronic) DM2 (diabetes mellitus, type 2) (Chronic) Benign essential HTN (Chronic) Chronic venous insufficiency (Chronic) Swelling of lower extremity (Chronic) Edema of both legs (Chronic) Morbid obesity (Chronic) Prostate cancer (Chronic) Venous stasis dermatitis of both lower extremities (Chronic) Status post cholecystectomy (Chronic) Cholecystitis (Chronic) Asthma (Chronic) Allergies lisinopril Allergy (Verified 08/05/18 12:35) Unknown sertraline Allergy (Verified 08/05/18 12:35) Unknown Home Medications: Ambulatory Orders Medication Instructions Recorded Aspirin [Aspirin, Baby] 81 mg PO DAILY 06/09/13 Surgical History: coronary bypass surgery - 1998, total hip arthroplasty - Bilateral, - - Open cholecystectomy - September 2015. Open reduction and internal fixation of a right hip fracture. Psychiatric History: No pertinent psych hx Lives: Alone Smoking Status: Never smoker Alcohol: None Drugs: None - *Family History Maternal History Items: Cancer - Lung, - Paternal History Items: Heart Disease Sibling History Items: Heart Disease Review of Systems Constitutional: Denies: Chills, Fever, Weight Change HEENT: Denies: Head Aches, Sinus Congestion, Sinus Drainage Cardiovascular: Reports: Chest Pain, Heaviness. Denies: Palpitations Respiratory: Reports: Shortness of Breath. Denies: Cough, Shortness of breath at rest, Sputum production Gastrointestinal: Denies: Abdominal Pain, Nausea, Vomiting Genitourinary: Denies: Dysuria Musculoskeletal: Denies: Joint Pain, Joint Tenderness Skin: Denies: Rash, Wounds Neurological: Denies: Numbness, Tingling, Focal weakness Psychiatric: Denies: Anxiety, Depression, Homicidal Ideations, Suicidal Ideations Hematologic/ Lymphatic: Denies: Easy Bruising, Easy Bleeding VTE Information - Inpt Only VTE Present on Admission: No VTE Mechan Device Prophylaxis: None VTE Pharm Prophylaxis ordered?: Yes Patient Problems: Active and Suspected Problems Chest pain (Acute) - Physical Exam General: Alert, Oriented x3, Cooperative HEENT: Atraumatic, PERRLA, EOMI, Normocephalic Neck: Supple, No JVD, Negative Carotid Bruits Lungs: Clear to auscultation, Normal air movement Cardiovascular: Regular rate, No murmurs Abdomen: Bowel Sounds Present, Soft, Non Tender, Obese Extremities: Capillary Refill Less than 3 Seconds, Edema Skin: No rashes, No breakdown Musculoskeletal: No Tenderness to Palpation of Joints or Extremities Neurological: Cranial nerves II-XII grossly intact Psych/Mental Status: Normal Affect, Appropriate Vital Signs Temp Pulse Resp BP Pulse Ox 98.6 F 64 16 123/65 H 95 08/05/18 12:53 08/05/18 14:34 08/05/18 14:34 08/05/18 14:34 08/05/18 14:34 Oxygen Flow Rate (L/min) 2 Oxygen Delivery Method Nasal Cannula Weight: 343 lb 0.628 oz Body Mass Index (BMI) 46.5 Laboratory Tests Past 24 Hrs Assessment/Plan All Active Problems Fall (Acute) Chest pain (Acute) Ileus following gastrointestinal surgery (Resolved) Abdominal pain (Resolved) Chest pain (Resolved) Chest pain (Resolved) Heme + stool (Resolved) 1. Chest pain - cycle enzymes, repeat stress test in AM. D dimer elevated but neg CTA chest. EKG paced with AV conduction delay. Trop neg. 2. Hx CAD prior stent and CABGx2 - pt of Dr. Valdes. Continue home mes. 3. DMt2 with morbid obesity - dietary eval - SSI, hold amaryl 4. Hx AV block, s/p PM placement last year. 5. Hx PAfib - rate / rhythm controlled. Not on OAC as he has had hematemesis with OAC in the past. 6. Hx CHF - no acute exacerbation - continue PO lasix. 7. GERD - ppi + carafate DVT ppx: lovenox This patient was seen by Jeramy So PA-C under the supervision of Dr. Livingston. <Killian Livingston F - Last Filed: 08/05/18 18:17> History of Present Illness The patient is a 77 year old M [] Past Medical History Allergies lisinopril Allergy (Verified 08/05/18 12:35) Unknown sertraline Allergy (Verified 08/05/18 12:35) Unknown - Physical Exam Vital Signs Temp Pulse Resp BP Pulse Ox 97.9 F 66 20 H 135/66 H 94 08/05/18 16:48 08/05/18 16:58 08/05/18 16:48 08/05/18 16:48 08/05/18 16:48 Oxygen Flow Rate (L/min) 2 Oxygen Delivery Method Nasal Cannula Weight: 335 lb 3.2 oz Body Mass Index (BMI) 45.4 Intake and Output for Last 24 Hours Intake Total 120 / 120 Balance 120 / 120 Laboratory Tests Past 24 Hrs WBC RBC Hgb Hct MCV MCH MCHC RDW RDW Differential Plt Count MPV Immature Gran % (Auto) Neut % (Auto) Code Visit Addendum: Dr. Livingston I personally examined the patient and reviewed the chart. I agree with the above. 77-year-old male with significant past medical history of coronary artery disease status post CABG x2 and a stent in 1998, he is presenting with left-sided chest pain over the last couple of days that was more severe today. Will trend troponins and set him up for a nuclear stress test in the morning. His last stress test was in October of this year and was primary in the ER which was worked up with a CTA chest which was also negative for PE. OBSV E AND M: [id number] Initial observation care L3 08/05/18 1544 <Electronically signed by Jeramy MCDUFFIE> Date Jeramy MCDUFFIE 12/14/18 1817<Electronically signed by Killian Livingston MD> Cosigner Signature: Date (if applicable) Killian Livingston MD CC: RETA So; Bertrand Leon MD; Killian Livingston MD Signed EMERGENCY DEPARTMENT Observed: 08/05/2018 Status: F Source: [place] SUMMARY 3:12 PM [facility] REPOSITORY [facility] Medical Records Department [address] [place] [address] Emergency Department Summary 08/05/18 1511 MR#: [id number] Acct: [id number] Name: MAYCO KENDRICK Rep #: [id number] : 1940 77 From: Reji Vang MD PCP: Bertrand Leon MD Status: REG ER - ER Visit Summary Date of Service: 08/05/18 Chief Complaint: Chest pain History of Present Illness: The patient is a 77 M who presents with chest pain. Started earlier today. He describes a pressure across his chest and radiating up into his jaw. Breathing made it worse. Nothing made it better. He did have associated shortness of breath. His last stress test was a year ago. He says it was normal. He took no nitroglycerin for it at home. He does have a history of coronary artery disease and had a CABG in the late 90s. Physical Examination: Vital signs reviewed. HEENT exam unremarkable. Heart is regular rate and rhythm without murmurs. Lungs are clear to auscultation. Abdomen is soft and nontender. Extremities reveal no edema. Peripheral pulses are equal. Skin exam normal. Neurologic exam normal. Test Results: EKG is a paced rhythm with no ST changes. Chest x-ray reveals chronic changes. Laboratory studies are unremarkable except for a d-dimer of 0.65. CTA of the chest reveals no PE. Emergency Department Course and Treatment: She received 4 aspirin by EMS. His ALVERTO score is 4. Patient will be admitted to the hospital for chest pain rule out. Treatment Plan: [] Disposition: Admit Impression: Chest pain This note was generated with Dragon dictation software. It may contain incorrect words, spelling, and punctuation that were not noted in review of the chart prior to signing ED Disposition - Plan for ED Patient: Chief Complaint: Chest Pain Referrals: Bertrand Leon MD [Primary Care Provider] - What to do if you have Problems For any increased pain, shortness of breath, bleeding, nausea or vomiting, chest pain, or any unexpected problems, contact your Primary Care Provider. Call [facility] ([phone]) or report to the closest Emergency Room. Call 911 if necessary. 08/05/18 1512 <Electronically signed by Reji Vang MD> Date Reji Vang MD Cosigner Signature (If Indicated): Date CC: Bertrand Leon MD CTA CHEST W/WO Observed: 08/05/2018 Status: F Source: [place]ANKA CONTRAST 1:59 PM [facility] REPOSITORY [facility] Imaging Services [address] [place] [address] CTA Chest W/WO Contrast MR#: [id number] Acct: [id number] Name: MAYCO KENDRICK Rep #: [id number] : 1940 M 77 From: Christiano Odom MD PCP: Bertrand Leon MD Status: REG ER Study: CTA Chest W/WO Contrast Date of Exam: 08/05/18 Exam# [id number] Ordering Dr: Reji Vang MD STUDY: CTA CHEST REASON FOR EXAM: Male, 77 years old. Stable chest pain. Shortness of breath and diaphoresis. RADIATION DOSAGE (If Supplied By Facility): CTDIvol = ( 16.69 ) mGy, DLP = ( 777.11 ) mGycm TECHNIQUE: The examination was performed with the intravenous administration of 100 ml of Isovue 370 contrast material. Post-processing of the angiographic images was performed, with multiplanar reformation and 3D reconstruction. Individualized dose optimization techniques were used for this CT. COMPARISON: Comparison is made with prior examination dated May 03, 2017. FINDINGS: Normal enhancement of the main pulmonary artery and right and left pulmonary arteries. Normal enhancement of the bilateral peripheral pulmonary arteries. There is no demonstrated pulmonary embolism. Normal thoracic aorta and visualized great vessels. There is no demonstrated aortic dissection. Sternal cerclage wires and vascular clips are present from a prior sternotomy and coronary artery bypass graft procedure (CABG). There are calcifications of the coronary arteries. Normal mediastinum. Normal hilar regions. Normal visualized trachea and bronchi. The lungs are well expanded. Mild increased markings in the posterior medial segment of the right lower lobe suggestive of a possible scarring. Normal pleura. Normal chest wall structures. There are degenerative changes of thoracic spine. There is a 2.3 cm hypodensity in the left adrenal gland. This may represent an adrenal adenoma. CT/CTA Chest W/WO Contrast IMPRESSION: No evidence of a pulmonary embolism. Electronically Signed: Christiano Odom MD at 14:58 EST Tel [phone], Service support , CC: Bertrand Leon MD; Reji aVng MD Librarian Head: Signed CHEST 1 VIEW Observed: 08/05/2018 Status: F Source: [place] (PORTABLE) 12:47 PM [facility] [place] REPOSITORY [facility] Imaging Services [address] [place] [address] Chest 1 View (Portable) MR#: [id number] Acct: [id number] Name: MAYCO KENDRICK Rep #: [id number] : 1940 M 77 From: Dona Arellano MD PCP: Bertrand Leon MD Status: PRE ER Study: Chest 1 View (Portable) Date of Exam: 08/05/18 Exam# [id number] Ordering Dr: Reji Vang MD STUDY: X-RAY CHEST REASON FOR EXAM: Male, 77 years old. Chest pain. TECHNIQUE: Single AP portable upright view of the chest. The patient is in a lordotic position. COMPARISON: PA and lateral chest x-ray November 20, 2017. FINDINGS: Dual-lead right subclavian cardiac pacemaker again noted. Moderate elevation of right diaphragm unchanged. Ill-defined left perihilar and bibasilar density may reflect local volume loss and crowding, inflammatory change, or asymmetric pulmonary venous congestion. There is no demonstrated pleural abnormality. There is stable mild cardiac enlargement. Sternal cerclage wires and vascular clips are present from a prior sternotomy and coronary artery bypass graft procedure (CABG). Normal mediastinum. Normal visualized aortic arch and descending thoracic aorta. Poorly visualized thoracic spine. Normal visualized ribs, clavicles, and shoulders. There is no demonstrated abnormality of the visualized soft tissue structures of the upper abdomen. RAD/Chest 1 View (Portable) IMPRESSION: 1. Prior median sternotomy and CABG. Stable mild cardiac enlargement. Dual lead cardiac pacemaker again noted. 2. Ill-defined left perihilar and bibasilar density suggesting volume loss and crowding, inflammatory change, or asymmetric pulmonary venous congestion. Electronically Signed: Jose Martin Arellano MD at 13:16 EST , Service support , CC: Bertrand Leon MD; Reji Vang MD Librarian Head: Signed CBC W/DIFF, AUTOMATED Collected: 08/05/2018 Status: F Source: [place] 12:44 PM [facility] REPOSITORY TYPE CODE TESTS RESULT OUT OF RANGE REFERENCE UNITS LAB L100.1000 4.4-11.0 K/mm3 Normal WBC 8.3 LAB L100.1200 4.6-6.2 M/mm3 Normal RBC 4.70 LAB L100.1300 13.0-16.5 g/dl Normal HGB 14.1 LAB L100.1400 40-54 % Normal HCT 41.9 LAB L100.1500 80-94 fL Normal MCV 89.1 LAB L100.1600 27.0-32.0 pg Normal MCH 30.0 LAB L100.1700 32-36 g/gl Normal MCHC 33.7 LAB L100.1810 11.6-14.6 % High RDW CV 14.9 LAB L100.1820 35.1-43.9 fl High RDW SD 48.3 LAB L100.1900 150-450 K/mm3 Normal PLT 207 LAB L100.2000 6.2-12.0 fl Normal MPV 9.6 LAB L100.2100 47-70 % Normal NEUT% 64.2 LAB L100.2200 19-41 % Low LY% 17.3 LAB L100.2300 0-10 % High MONO% 12.3 LAB L100.2400 0-5 % High EO% 5.9 LAB L100.2500 0-1 % Normal BASO% 0.2 LAB L100.2550 0.0-0.9 % Normal IM GRAN % 0.100 Result Comment: IG% - Immature Granulocytes (promyelocytes, myelocytes and metamyelocytes) > 1% indicates that a LEFT SHIFT is Present. LAB L100.2620 2.0-7.7 X10 3/uL Normal Absolute Neut 5.3 LAB L100.2720 0.83-4.51 X10 3/ul Normal Absolute Lymph 1.44 Performed By: #### L100.0100 #### [facility] [address] [facility] [place], [place], [id number] BASIC METABOLIC Collected: 08/05/2018 Status: F Source: [place] PROFILE (BMP) 12:44 PM [facility] REPOSITORY TYPE CODE TESTS RESULT OUT OF RANGE REFERENCE UNITS LAB L501.0100 74-106 mg/dL High GLU 151 Result Comment: Fasting Glucose result greater than or equal to 126 mg/dL suggests DIABETES MELLITUS per A.D.A. criteria. Please note revised GLUCOSE reference range effective 2017. LAB L501.1000 7-18 mg/dL High BUN 22 LAB L501.1100 0.70-1.30 mg/dL Normal CREAT,SERUM 0.81 Result Comment: The validity of the calculated GFR AND GFRAA in patients over 70 years has not been determined. Clinical correlation is essential. LAB L501.1110 >60 mL/min Normal EST GFR 99 Result Comment: Non- GFR Calc LAB L501.1115 >60 mL/min Normal EST GFR - AA 119 Result Comment: GFR Calc LAB L501.1255 ml/min Normal Estimated CRCL 85.16 LAB L501.1300 10-20 RATIO High BUN/CRE 27.3 LAB L501.2200 8.5-10 mg/dL Normal .1 CA 8.7 LAB L501.5300 136-14 mmol/L Normal 5 NA 142 LAB L501.5600 3.5-5. mmol/L Normal 1 K 3.6 LAB L501.5900 98-107 mmol/L Normal CL 105 LAB L501.6100 21.0-3 mmol/L Normal 2.0 CO2 29.0 LAB L501.6200 5-15 Normal GAP 8 Performed By: #### L500.2500, L501.4010 #### [facility] [address] [facility] [facility] [id number] TROPONIN-I Collected: 08/05/2018 Status: F Source: [place] 12:44 PM [facility] REPOSITORY TYPE CODE TESTS RESULT OUT OF RANGE REFERENCE UNITS LAB L501.4010 <0.045 ng/mL Normal < 0.015 TROPONIN-I Result Comment: TROPONIN-I EXPECTED VALUES <0.045 Negative 0.045 - 0.590 Consistent with Cardiac Damage > OR = 0.600 Critical Value Not every elevated troponin is indicative of MT. These values should be used with clinical judgement in examining the patient's clinical picture for diagnosis. To establish a diagnosis of MT versus myocardial injury, there must be a demonstrated rise and/or fall in the troponin values, in addition to ischemic symptoms, EKG changes, new regional wall motion abnormality, and/or angiographical evidence. PLEASE NOTE: REFERENCE RANGES EDITED 18 Performed By: #### L500.2500, L501.4010 #### [facility] [address] [place], [place], [address] D-DIMER QUANTITATIVE Collected: 08/05/2018 Status: F Source: [place] (DVT/PE) 12:44 PM [facility] REPOSITORY TYPE CODE TESTS RESULT OUT OF RANGE REFERENCE UNITS LAB L300.8000 0.27-0.49 FEU/ug/m High alert D-DIMER 0.65 QUANT Result Comment: D-Dimer ELEVATED (>0.49): Additional studies and clinical assessments are indicated to conclude diagnosis of: Deep Vein Thrombosis (DVT) or Pulmonary Embolism (PE)CRITICAL VALUE VERIFIED. CALLED TO DHARA IN ED 08/05/18 1353 Traci Barnes. RESULTS READ BACK BY SAME . Performed By: #### L300.8000 #### [facility] [address] [place], [address] PROGRESS Observed: 08/01/2018 Status: COMPLETED Source: [place] 2:20 PM [facility] REPOSITORY [facility] ID: [id number] Author: Rebecca Markham) Tommy Service: (none) Author Type: Registered Dietitian Type: Progress Notes Filed: 08/01/2018 3:23 PM Note Text: Nutritional Therapy Re-Assessment PAIN: Is the patient having any pain that is interfering with oral / enteral intake? No 0 on a scale of 0 to 10 PROGRESS: Nutrition Intervention (date of last encounter 06/20/18): 1. Find positive outlet, social options ([employer]) 2. Increase exercise to 35 minutes 3. Continue smaller portions, best options. 4. Stop eating when comfortable not full, smaller portions, limit desserts to one time per week CHANGES IN TREATMENT: Patient met goal(s): Partially Actions to implement interventions: Keeping menus Diet History: Menus reviewed CLINICAL IMPRESSIONS: good REVISIONS IN DIAGNOSIS: Diagnosis: has not changed. Allergies: Lisinopril; Sertraline Medications: Current Outpatient Prescriptions: glimepiride (AMARYL) 2 mg tablet Take 1 tablet by mouth daily with breakfast. Disp: 90 tablet Rfl: 3 cefADROxil (DURICEF) 500 mg capsule Take 1 capsule by mouth twice daily. Disp: 20 capsule Rfl: [address] (PROTONIX) 40 mg tablet 1 TABLET BY MOUTH DAILY AT 6AM DX: GERD / NURSE TO REORDER Disp: 30 tablet Rfl: 3 aspirin, enteric coated (ADULT LOW DOSE ASPIRIN) 81 mg EC tablet Take 1 tablet by mouth once daily. Disp: 90 tablet Rfl: 1 Cholecalciferol, Vitamin D3, 2,000 unit cap Take 1 capsule by mouth once daily. Disp: 90 capsule Rfl: 0 acetaminophen (TYLENOL EXTRA STRENGTH) 500 mg tablet Take 1 tablet by mouth every 6 hours as needed for Pain. Disp: 200 tablet Rfl: 1 polyethylene glycol 3350 (MIRALAX, GLYCOLAX) 17 gram/dose powder Take 17 g by mouth once daily. Take one (1) capful in 8oz of liquid each day. Disp: 1 Bottle Rfl: 11 COMPOUNDED PRESCRIPTION 2 oz prune juice, before bed, as needed for constipation. Disp: 1 Bottle Rfl: 11 Ranitidine HCl 300 mg tablet 1 TABLET BY MOUTH WITH DINNER DX:GERD / NURSE TO REORDER Disp: 90 tablet Rfl: 3 furosemide (LASIX) 40 mg tablet Take 1 tablet by mouth once daily. Disp: 30 tablet Rfl: 11 docusate sodium (DOC-Q-LACE) 100 mg capsule Take 1 capsule by mouth twice daily as needed. Disp: 180 capsule Rfl: 3 aluminum AND magnesium hydroxide-simethicone (MAALOX PLUS EXTRA STRENGTH) 400-400-40 mg/5 mL suspension Take 20 mL by mouth every 6 hours as needed (upset stomach). Disp: 500 mL Rfl: [address] (PROTONIX) 40 mg tablet Take 1 tablet by mouth daily before breakfast. Take on empty stomach, 1/2 hr before meal. Per Gastroenterology Disp: 30 tablet Rfl: 11 traZODone (DESYREL) 50 mg tablet Take 1 tablet by mouth at bedtime as needed (sedation). Disp: 15 tablet Rfl: 5 guaiFENesin (SILTUSSIN SA) 100 mg/5 mL syrup Take 10 mL by mouth three times daily as needed. Disp: Rfl: 0 triamcinolone acetonide (KENALOG) 0.1 % cream Apply to itching rash on chest twice daily ONLY when needed; may keep in room Disp: 454 g Rfl: 2 COMPOUNDED PRESCRIPTION Rollator, # one Dx: I50.33, I25.700, I48.0, J45.20, E66.01, M54.42, M25.551, Z91.81 Disp: 1 Device Rfl: 0 ammonium lactate (LAC-HYDRIN) 12 % cream Apply 1 application to affected area twice daily as needed. Disp: 385 g Rfl: 11 furosemide (LASIX) 80 mg tablet One PO daily in AM Disp: 90 tablet Rfl: 3 oxybutynin (DITROPAN) 5 mg tablet Take 1 tablet by mouth three times daily. Disp: 90 tablet Rfl: 11 metoprolol tartrate, short acting, (LOPRESSOR) 25 mg tablet Take 1 tablet by mouth every 12 hours. Disp: 180 tablet Rfl: 3 ketoconazole (NIZORAL) 2 % shampoo Use as a body wash, most specifically the chest, daily for itching and flaking; may keep in own shower Disp: 340 mL Rfl: 6 atorvastatin (LIPITOR) 80 mg tablet Take 1 tablet by mouth once daily. Disp: 90 tablet Rfl: 3 tamsulosin ER (FLOMAX) 0.4 mg cp24 Take 1 capsule by mouth every evening. for prostate Disp: 90 capsule Rfl: 3 metFORMIN (GLUCOPHAGE) 500 mg tablet Take 1 tablet by mouth three times daily with meals. Disp: 270 tablet Rfl: 3 nitroglycerin sublingual (NITROSTAT) 0.4 mg SL tablet Take 1 tablet by mouth as needed. for chest pain; dissolve on tongue. If no pain relief call 911. Disp: 2 Bottle of 25 Rfl: 5 magnesium oxide (MAG-OX) 400 mg tablet Take 1 tablet by mouth once daily. Disp: 90 tablet Rfl: 3 COMPOUNDED PRESCRIPTION Please eval and fix any issues with walker.Dx: I50.33, I25.10, E66.01, M54.42, M25.551 Disp: 1 Device Rfl: 0 bisacodyl (DULCOLAX) 10 mg supp 1 Suppository by RECTAL route once daily as needed (for constipation). Disp: Rfl: 0 COMPOUNDED PRESCRIPTION Glucometer high/low test solution for accucheck. DX: DM Disp: 1 Bottle Rfl: 3 COMPOUNDED PRESCRIPTION Please perform a nocturnal oximetry on room air on BiPAP. Diagnosis: HypoxiaPlease fax results to [phone] Attn: Glendy Disp: 1 Each Rfl: 0 Lancets (ACCU-CHEK FASTCLIX) lancets Test glucose twice weekly. Dx: 250.00. Insulin Use: no Disp: 100 Each Rfl: 11 blood sugar diagnostic test strip testing twice weekly dx 250.00 insulin no Disp: 50 Strip Rfl: 12 Blood-Glucose Meter, Drum-type (ACCU-CHEK COMPACT PLUS CARE) kit Test fasting blood sugar 1-2 times a week and 2 hrs post meal 1- 2 times a week. Disp: 1 Kit Rfl: 0 Blood-Glucose Meter (ONETOUCH ULTRA 2) monitoring kit 1 Each as needed. One Touch Meter Kit Diagnosis: Diabetes Mellitus Disp: 1 Each Rfl: 0 Blood Glucose Control, Normal (OT ULTRA/FASTTRACK CONTROL) soln Test controls as needed. Disp: 1 Each Rfl: 3 COMPOUNDED PRESCRIPTION BIPAP setting: IPAP 22cm water with heated humidification EPAP setting of 16cm with supplemental oxygen bleed in at 2lt per minute. Mask (per patient preference) and supplies for lifetime. Please add chin strap DX EDMOND 327.23 Disp: 1 Act Rfl: 99 No current facility-administered medications for this visit. (currently taking) Anthropometrics: Height: Last 1 Encounter Ht Readings: Date: Ht: 08/01/2018 182.9 cm (6') Current weight: Last 1 Encounter Wt Readings: Date: Wt: 08/01/2018 153.3 kg (338 lb) Body mass index is 45.84 kg/m?. Resting Metabolic Rate: 2305 NUTRITION ASSESSMENT: Malnutrition Screening Significant unintentional weight loss? No Eating less than 75% of usual intake for more than 2 weeks? No Potential Signs of Inflammation: no identifiable sources RECOMMENDED MALNUTRITION DIAGNOSIS: NO MALNUTRITION IDENTIFIED Nutritional status: Educational materials provided: none this visit READINESS TO LEARN Cognitive ability: Alert and oriented Motivation to learn: Interested Family support: Unable to assess - Family not present Instruction provided to: Patient Patient learns best by: Individual Instruction Factors affecting learning: None Physical limitations affecting learning: None Likelihood of Adherence: Moderate Patient presents for follow up MNT as relates to diabetes and for weight loss. Continues to make best choices aviiable as provided. Stable weight from last visit. Weight had reached low point o 327 in January, weight increased until June, patient had been undergoing several surgeries during that time, feels this may be related . Nutrition Diagnosis: Overweight Obesity, related to; excess energy intake and physical inactivity, as evidenced by BMI above normative standard for age and gender. Nutrition Intervention 08/01/2018: modify type and amount of food or beverage 1. Try to avoid bread at meals; if a sandwich have 1/2 sandwich 2. Go to two days per week (or [facility]); add walk for exercise two days per week 3.stop eating when comfortable, not full 4. Continue to make best choices as able, smaller portions Nutrition Monitoring AND Evaluation: weight loss Criteria: patient update Need for Follow up: 6 weeks Referred/Supervised by: Hammad NOBLE Billing Type: Re-assess/15 min 2 units SIGNATURE: Rebecca Sanders RD LD PATIENT NAME: Mayco Kendrcik DATE: August 01, 2018 TIME: 2:20 PM CNCNPATED Observed: 08/01/2018 Status: COMPLETED Source: [place] 2:00 PM [facility] REPOSITORY Education (NUTRWS) MAYCO KENDRICK ([id number]) 1940 M NFR Date Time Provider Department 08/01/18 2:00 PM REBECCA SANDERS (UYEN) JOSE Reason for Visit: Patient Education [91] Reassessment [674] Progress Notes: Rebecca Sanders, MS RD LD 08/01/2018 3:23 PM Signed Nutritional Therapy Re-Assessment PAIN: Is the patient having any pain that is interfering with oral / enteral intake? No 0 on a scale of 0 to 10 PROGRESS: Nutrition Intervention (date of last encounter 06/20/18): 1. Find positive outlet, social options ([place]) 2. Increase exercise to 35 minutes 3. Continue smaller portions, best options. 4. Stop eating when comfortable not full, smaller portions, limit desserts to one time per week CHANGES IN TREATMENT: Patient met goal(s): Partially Actions to implement interventions: Keeping menus Diet History: Menus reviewed CLINICAL IMPRESSIONS: good REVISIONS IN DIAGNOSIS: Diagnosis: has not changed. Allergies: Lisinopril; Sertraline Medications: Current Outpatient Prescriptions: glimepiride (AMARYL) 2 mg tablet Take 1 tablet by mouth daily with breakfast. Disp: 90 tablet Rfl: 3 cefADROxil (DURICEF) 500 mg capsule Take 1 capsule by mouth twice daily. Disp: 20 capsule Rfl: [address] (PROTONIX) 40 mg tablet 1 TABLET BY MOUTH DAILY AT 6AM DX: GERD / NURSE TO REORDER Disp: 30 tablet Rfl: 3 aspirin, enteric coated (ADULT LOW DOSE ASPIRIN) 81 mg EC tablet Take 1 tablet by mouth once daily. Disp: 90 tablet Rfl: 1 Cholecalciferol, Vitamin D3, 2,000 unit cap Take 1 capsule by mouth once daily. Disp: 90 capsule Rfl: 0 acetaminophen (TYLENOL EXTRA STRENGTH) 500 mg tablet Take 1 tablet by mouth every 6 hours as needed for Pain. Disp: 200 tablet Rfl: 1 polyethylene glycol 3350 (MIRALAX, GLYCOLAX) 17 gram/dose powder Take 17 g by mouth once daily. Take one (1) capful in 8oz of liquid each day. Disp: 1 Bottle Rfl: 11 COMPOUNDED PRESCRIPTION 2 oz prune juice, before bed, as needed for constipation. Disp: 1 Bottle Rfl: 11 Ranitidine HCl 300 mg tablet 1 TABLET BY MOUTH WITH DINNER DX:GERD / NURSE TO REORDER Disp: 90 tablet Rfl: 3 furosemide (LASIX) 40 mg tablet Take 1 tablet by mouth once daily. Disp: 30 tablet Rfl: 11 docusate sodium (DOC-Q-LACE) 100 mg capsule Take 1 capsule by mouth twice daily as needed. Disp: 180 capsule Rfl: 3 aluminum AND magnesium hydroxide-simethicone (MAALOX PLUS EXTRA STRENGTH) 400-400-40 mg/5 mL suspension Take 20 mL by mouth every 6 hours as needed (upset stomach). Disp: 500 mL Rfl: [address] (PROTONIX) 40 mg tablet Take 1 tablet by mouth daily before breakfast. Take on empty stomach, 1/2 hr before meal. Per Gastroenterology Disp: 30 tablet Rfl: 11 traZODone (DESYREL) 50 mg tablet Take 1 tablet by mouth at bedtime as needed (sedation). Disp: 15 tablet Rfl: 5 guaiFENesin (SILTUSSIN SA) 100 mg/5 mL syrup Take 10 mL by mouth three times daily as needed. Disp: Rfl: 0 triamcinolone acetonide (KENALOG) 0.1 % cream Apply to itching rash on chest twice daily ONLY when needed; may keep in room Disp: 454 g Rfl: 2 COMPOUNDED PRESCRIPTION Rollator, # one Dx: I50.33, I25.700, I48.0, J45.20, E66.01, M54.42, M25.551, Z91.81 Disp: 1 Device Rfl: 0 ammonium lactate (LAC-HYDRIN) 12 % cream Apply 1 application to affected area twice daily as needed. Disp: 385 g Rfl: 11 furosemide (LASIX) 80 mg tablet One PO daily in AM Disp: 90 tablet Rfl: 3 oxybutynin (DITROPAN) 5 mg tablet Take 1 tablet by mouth three times daily. Disp: 90 tablet Rfl: 11 metoprolol tartrate, short acting, (LOPRESSOR) 25 mg tablet Take 1 tablet by mouth every 12 hours. Disp: 180 tablet Rfl: 3 ketoconazole (NIZORAL) 2 % shampoo Use as a body wash, most specifically the chest, daily for itching and flaking; may keep in own shower Disp: 340 mL Rfl: 6 atorvastatin (LIPITOR) 80 mg tablet Take 1 tablet by mouth once daily. Disp: 90 tablet Rfl: 3 tamsulosin ER (FLOMAX) 0.4 mg cp24 Take 1 capsule by mouth every evening. for prostate Disp: 90 capsule Rfl: 3 metFORMIN (GLUCOPHAGE) 500 mg tablet Take 1 tablet by mouth three times daily with meals. Disp: 270 tablet Rfl: 3 nitroglycerin sublingual (NITROSTAT) 0.4 mg SL tablet Take 1 tablet by mouth as needed. for chest pain; dissolve on tongue. If no pain relief call 911. Disp: 2 Bottle of 25 Rfl: 5 magnesium oxide (MAG-OX) 400 mg tablet Take 1 tablet by mouth once daily. Disp: 90 tablet Rfl: 3 COMPOUNDED PRESCRIPTION Please eval and fix any issues with walker.Dx: I50.33, I25.10, E66.01, M54.42, M25.551 Disp: 1 Device Rfl: 0 bisacodyl (DULCOLAX) 10 mg supp 1 Suppository by RECTAL route once daily as needed (for constipation). Disp: Rfl: 0 COMPOUNDED PRESCRIPTION Glucometer high/low test solution for accucheck. DX: DM Disp: 1 Bottle Rfl: 3 COMPOUNDED PRESCRIPTION Please perform a nocturnal oximetry on room air on BiPAP. Diagnosis: HypoxiaPlease fax results to [phone] Attn: Glendy Disp: 1 Each Rfl: 0 Lancets (ACCU-CHEK FASTCLIX) lancets Test glucose twice weekly. Dx: 250.00. Insulin Use: no Disp: 100 Each Rfl: 11 blood sugar diagnostic test strip testing twice weekly dx 250.00 insulin no Disp: 50 Strip Rfl: 12 Blood-Glucose Meter, Drum-type (ACCU-CHEK COMPACT PLUS CARE) kit Test fasting blood sugar 1-2 times a week and 2 hrs post meal 1-2 times a week. Disp: 1 Kit Rfl: 0 Blood-Glucose Meter (ONETOUCH ULTRA 2) monitoring kit 1 Each as needed. One Touch Meter Kit Diagnosis: Diabetes Mellitus Disp: 1 Each Rfl: 0 Blood Glucose Control, Normal (OT ULTRA/FASTTRACK CONTROL) soln Test controls as needed. Disp: 1 Each Rfl: 3 COMPOUNDED PRESCRIPTION BIPAP setting: IPAP 22cm water with heated humidification EPAP setting of 16cm with supplemental oxygen bleed in at 2lt per minute. Mask (per patient preference) and supplies for lifetime. Please add chin strap DX EDMOND 327.23 Disp: 1 Act Rfl: 99 No current facility-administered medications for this visit. (currently taking) Anthropometrics: Height: Last 1 Encounter Ht Readings: Date: Ht: 08/01/2018 182.9 cm (6') Current weight: Last 1 Encounter Wt Readings: Date: Wt: 08/01/2018 153.3 kg (338 lb) Body mass index is 45.84 kg/m?. Resting Metabolic Rate: 2305 NUTRITION ASSESSMENT: Malnutrition Screening Significant unintentional weight loss? No Eating less than 75% of usual intake for more than 2 weeks? No Potential Signs of Inflammation: no identifiable sources RECOMMENDED MALNUTRITION DIAGNOSIS: NO MALNUTRITION IDENTIFIED Nutritional status: Educational materials provided: none this visit READINESS TO LEARN Cognitive ability: Alert and oriented Motivation to learn: Interested Family support: Unable to assess - Family not present Instruction provided to: Patient Patient learns best by: Individual Instruction Factors affecting learning: None Physical limitations affecting learning: None Likelihood of Adherence: Moderate Patient presents for follow up MNT as relates to diabetes and for weight loss. Continues to make best choices aviiable as provided. Stable weight from last visit. Weight had reached low point o 327 in January, weight increased until June, patient had been undergoing several surgeries during that time, feels this may be related . Nutrition Diagnosis: Overweight Obesity, related to; excess energy intake and physical inactivity, as evidenced by BMI above normative standard for age and gender. Nutrition Intervention 08/01/2018: modify type and amount of food or beverage 1. Try to avoid bread at meals; if a sandwich have 1/2 sandwich 2. Go to Y two days per week (or [place]); add walk for exercise two days per week 3.stop eating when comfortable, not full 4. Continue to make best choices as able, smaller portions Nutrition Monitoring AND Evaluation: weight loss Criteria: patient update Need for Follow up: 6 weeks Referred/Supervised by: Hammad NOBLE Billing Type: Re-assess/15 min 2 units SIGNATURE: MS UYEN Jeffries PATIENT NAME: Mayco Kendrick DATE: August 01, 2018 TIME: 2:20 PM MS UYEN Jeffries 08/01/2018 2:41 PM Signed 1. Try to avoid bread at meals; if a sandwich have 1/2 sandwich 2. Go to Y two days per week (or [place]); add walk for exercise two days per week 3.stop eating when comfortable, not full 4. 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 Try to avoid bread at meals; if a sandwich have 1/2 sandwich 2. Go to Y two days per week (or [place]); add walk for exercise two days per week 3.stop eating when comfortable, not full 4. Continue to make best choices as able, smaller portions Primary Visit Diagnosis:Type 2 diabetes mellitus with other diabetic kidney complication (HCC) [E11.29] Other Visit Diagnoses:Dietary counseling [Z71.3] Morbid obesity, unspecified obesity type (HCC) [E66.01] During your visit today, we recorded the following information about you: Weight Height 153.3 kg 1.829 m Allergies As of Date: 08/01/2018 Noted Allergy Reaction LISINOPRIL 05/31/2014 14 - Other: See Comments Comments: Metallic taste in mouth. SERTRALINE 05/02/2013 8 - GI Upset Date Reviewed: 08/01/2018 Reviewed by: Rebecca Sanders - Fully Assessed Prescriptions as of 08/01/2018 Sig: GLIMEPIRIDE 2 MG TABLET Take 1 tablet by mouth daily * CEFADROXIL 500 MG CAPSULE Take 1 capsule by mouth twice* PANTOPRAZOLE 40 MG TABLET,DEL* 1 TABLET BY MOUTH DAILY AT 6A* ASPIRIN 81 MG TABLET,DELAYED * Take 1 tablet by mouth once d* CHOLECALCIFEROL (VITAMIN D3) * Take 1 capsule by mouth once * ACETAMINOPHEN 500 MG TABLET Take 1 tablet by mouth every * POLYETHYLENE GLYCOL 3350 17 G* Take 17 g by mouth once daily* COMPOUNDED PRESCRIPTION 2 oz prune juice, before bed,* RANITIDINE 300 MG TABLET 1 TABLET BY MOUTH WITH DINNER* FUROSEMIDE 40 MG TABLET Take 1 tablet by mouth once d* DOCUSATE SODIUM 100 MG CAPSULE Take 1 capsule by mouth twice* ALUMINUM-MAG HYDROXIDE-SIMETH* Take 20 mL by mouth every 6 h* PANTOPRAZOLE 40 MG TABLET,DEL* Take 1 tablet by mouth daily * TRAZODONE 50 MG TABLET Take 1 tablet by mouth at bed* GUAIFENESIN 100 MG/5 ML ORAL * Take 10 mL by mouth three agnes* TRIAMCINOLONE ACETONIDE 0.1 %* Apply to itching rash on ches* COMPOUNDED PRESCRIPTION Rollator, # one Dx: I50.33, I* AMMONIUM LACTATE 12 % TOPICAL* Apply 1 application to affect* FUROSEMIDE 80 MG TABLET One PO daily in AM OXYBUTYNIN CHLORIDE 5 MG TABL* Take 1 tablet by mouth three * METOPROLOL TARTRATE 25 MG TAB* Take 1 tablet by mouth every * KETOCONAZOLE 2 % SHAMPOO Use as a body wash, most spec* ATORVASTATIN 80 MG TABLET Take 1 tablet by mouth once d* TAMSULOSIN 0.4 MG CAPSULE Take 1 capsule by mouth every* METFORMIN 500 MG TABLET Take 1 tablet by mouth three * NITROGLYCERIN 0.4 MG SUBLINGU* Take 1 tablet by mouth as nee* MAGNESIUM OXIDE 400 MG (241.3* Take 1 tablet by mouth once d* COMPOUNDED PRESCRIPTION Please eval and fix any issue* BISACODYL 10 MG RECTAL SUPPOS* 1 Suppository by RECTAL route* COMPOUNDED PRESCRIPTION Glucometer high/low test solu* COMPOUNDED PRESCRIPTION Please perform a nocturnal ox* LANCETS Test glucose twice weekly. Dx* BLOOD SUGAR DIAGNOSTIC STRIPS testing twice weekly dx 250* BLOOD-GLUCOSE METER, DRUM-TYP* Test fasting blood sugar 1-2 * BLOOD-GLUCOSE METER KIT 1 Each as needed. One Touch M* BLOOD GLUCOSE CONTROL, NORMAL* Test controls as needed. * COMPOUNDED PRESCRIPTION BIPAP setting: IPAP 22cm wate* Encounter Status:Closed by REBECCA CARRILLO MS, RD on 08/01/18 PROGRESS Observed: 08/01/2018 Status: COMPLETED Source: [place] 1:21 PM [facility] REPOSITORY HNO ID: [id number] Author: Bertrand Leon Service: (none) Author Type: Physician Type: Progress Notes Filed: 08/01/2018 8:33 PM Note Text: Chief Complaint Patient presents with: Recheck Diarrhea: x 1 month HPI Mayco Kendrick is a 77 year old male who presents here today for Chronic Medical Conditions.. Patient with Hx of DM 2, CAD, HTN, Hyperlipidemia, GERD as well as those reviewed and addressed below. Patient has been having a productive cough in the mornings for the past 2 months (approx). Will bring up yellow mucus. The cough tends to clear up by later morning. With the cough has increased GERD. He will become short of breath with the cough but goes away when the coughing is done. No hemoptysis. Denies post nasal drainage but will blow mucus out of his nose with the cough in the AM. May of felt chilled at times. Past medical history, appointments, medications, allergies reviewed. Previous Medical History PAST MEDICAL HISTORY Diagnosis Date - Abdominal pain 08/11/2014 w some distention. Appears chronic -abdominal ultrasound - ACUTE GASTRITIS W/O HEMORRHAGE 12/21/2006 - Acute on chronic diastolic CHF (congestive heart failure), NYHA class 4 (HCC) 03/08/2014 H/o HFpEF with diastolic dysfunction, ICM 55% EF Presents with CP and SOB Weight gain 30lbs in last 3 months Currently SOB and volume overload, in setting of unstable angina (killip 3) Plan Continue Diuresis As above for possible restrictive CM - ALLERGIC RHINITIS NOS 05/03/2006 - Asthma - Benign neoplasm of rectum and anal canal - Bilateral leg edema 11/05/2008 - Bradycardia 08/11/2014 Patient with sinus bradycardia with Type 1 Mobitz since 2011 however Pulse dropping to high 30s with dizziness Plan: Place on tele for monitoring EP evaluation for ? Pacemaker with new onset of symptoms 2/2 to relative hypotension vs bradycardia Daily EKGs to evaluate rhythm, still appears to be Mobitz type 1 Keep K and Mag above 4 and 2 respectively - Carpal tunnel syndrome 03/28/2010 - Chest pain 07/26/2014 73 year old male transferred from OSH for Unstable angina, chest pain on a Nitro and heparin Drip. First set of enzymes was negative. No ST-T wave chanes on EKG Mobitz type 1 AV block (chronic) ALVERTO score 5 With associated SOB and Pulmonary edema on CXR (Killip class 3) Found not to have acute plaque rupture ?Restrictive cardiomyopathy Will need LHC (LVEDP) and RHC tomorrow - per Dr. Pepe would like Dr. Randall PLAN NPO at midnight Call Cath Charge in AM to confirm schedule and attending Continue diuresis Additionally: - ASA - Stop plavix - reduce Atorvastatin to 20mg (home dose, last LDL ~55) - Losartan - Chest pain with painful respiration 08/11/2014 Chest heaviness. Unstable angina ? -stat EKG -telemetry - trend [place] - Closed compression fracture of L1 lumbar vertebra (HCC) 02/15/2018 Per ER 02/15/2018: compression of T12-L1 but not sure if old or new. May need dexa scan - Controlled type 2 diabetes mellitus with diabetic nephropathy ([facility]) 01/18/2014 - Coronary atherosclerosis due to lipid rich plaque 09/25/2015 - Depression - Diverticulosis of colon (without mention of hemorrhage) - DM type 2 (diabetes mellitus, type 2) ([facility]) 09/05/2014 - Essential hypertension, benign 02/02/2011 Essential hypertension, benign Home meds - losartan, norvasc, isosorbide mononitrate, lasix AND torsemide PLAN -hypotensive at OSH so hold bp meds for now. Resume as the bp normalizes. 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 Say Pulmonary 06/2017 and said he would be very high risk for a Bronch due to obesity and known diastolic LV dysfunction. Patient has been back on Xarelto since early November per [facility]. - Hip fracture, right (HCC) 09/22/2012 Treated medically - History of prostatitis 04/11/2013 - Hypertrophy of nasal turbinates 07/06/2012 consult with [facility] 06/29/2012 Plan to schedule ablation of inferior turbinates @ [facility]. - Insomnia, unspecified 06/17/2011 O[facility] report reviewed October 22, 2011 Matt Taylor MD - Lumbago 05/11/2007 - MALIGN NEOPL PROSTATE - Memory changes 01/26/2018 Saw psych 04/15/2018 and felt to be normal age related changes. - Mixed hyperlipidemia 07/26/2014 - Mobitz (type) I (Wenckebach's) atrioventricular block 07/26/[address] Eric Go in 2012. Chronic conduction abnormality. does not need a pacemaker. Here with concern for ACS EKG: mobitz type 1, unchanged from prior, no ST-T wave changes BP stable Plan: Monitor Avoiding BB - Morbid obesity due to excess calories ([facility]) 09/25/2015 - Nasal septal deviation 06/06/2018 - Nasal turbinate hypertrophy 07/06/2012 consult with Bianka ENT 06/29/2012 Plan to schedule ablation of inferior turbinates @ [facility]. - Nonspecific elevation of levels of transaminase or lactic acid dehydrogenase (LDH) - EDMOND (obstructive sleep apnea) 07/26/2014 On BIPAP at night - Other and unspecified disc disorder of unspecified region degenerative disc disorder - Paroxysmal atrial fibrillation (HCC) 04/07/2017 - Prostate cancer (HCC) - Recurrent major depressive disorder, in remission (HCC) 01/27/2016 - Reflux esophagitis - Substance abuse ([facility]) - Type 2 diabetes mellitus with proteinuria or albuminuria 01/18/2014 - Type II or unspecified type diabetes mellitus without mention of complication, not stated as uncontrolled - Ulnar neuropathy at elbow of left upper extremity 12/30/2017 s/p surgery 12/2017 - Ulnar neuropathy at elbow of right upper extremity 05/26/2017 s/p surgery 08/2017 - Urgency of urination 02/01/2014 Previous Surgical History PAST SURGICAL HISTORY Procedure Laterality Date - CABG, ARTERY-VEIN, TWO 1998 CABG, two grafts - CHOLECYSTECTOMY HX 10/14/2015 gangrenous gallbladder - COLONOSCOP W/ OR W/O BRS SPEC 01/27/2005 Colonoscopy - COLONOSCOP W/ OR W/O [facility] SPEC 12/21/2006` repeat in -2011 - COLONOSCOP W/ OR W/O [facility] SPEC 05/18/2012 Colonoscopy repeat 5 years - COLONOSCOPY 12/29/2016 repeat 10 yrs - EGD 12/29/2016 - EGD W/O [facility] SPECIMEN W/BX 12/21/06 - EGD W/O OR W/BRUSH/WASH 01/27/2005 EGD - EGD W/O OR W/BRUSH/WASH 11/21/14 EGD - OPEN CORONARY ENDARTERECTOMY 1999 Angioplasty with stent placement - PACEMAKER 2016 - REMOVAL OF TONSILS,<12 Y/O Tonsillectomy - REPAIR RETINAL DETACH, C 10/2010 - REVISE MEDIAN N/CARPAL TUNNEL SURG Right 09/10/2017 Right CTR - REVISE MEDIAN N/CARPAL TUNNEL SURG Left 01/14/2018 Left CTR - REVISE ULNAR NERVE AT ELBOW Right 09/10/2017 Right ulnar nerve decompression - REVISE ULNAR NERVE AT ELBOW Left 01/14/2018 Left unlar nerve decompression - TOTAL HIP REPLACEMENT 2000 Hip replacement, total, right - TOTAL HIP REPLACEMENT 2001 Hip replacement, total, left Family History FAMILY HISTORY Problem Relation Age of Onset - Heart Father - Cancer Mother Lung - Heart Paternal Grandfather - Heart Brother Patient Allergies ALLERGIES Allergen Reactions - Lisinopril Other: See Comments Metallic taste in mouth. - Sertraline GI Upset Current Medications Current Outpatient Prescriptions on File Prior to Visit: pantoprazole DR (PROTONIX) 40 mg tablet 1 TABLET BY MOUTH DAILY AT 6AM DX: GERD / NURSE TO REORDER aspirin, enteric coated (ADULT LOW DOSE ASPIRIN) 81 mg EC tablet Take 1 tablet by mouth once daily. Cholecalciferol, Vitamin D3, 2,000 unit cap Take 1 capsule by mouth once daily. acetaminophen (TYLENOL EXTRA STRENGTH) 500 mg tablet Take 1 tablet by mouth every 6 hours as needed for Pain. polyethylene glycol 3350 (MIRALAX, GLYCOLAX) 17 gram/dose powder Take 17 g by mouth once daily. Take one (1) capful in 8oz of liquid each day. COMPOUNDED PRESCRIPTION 2 oz prune juice, before bed, as needed for constipation. Ranitidine HCl 300 mg tablet 1 TABLET BY MOUTH WITH DINNER DX:GERD / NURSE TO REORDER furosemide (LASIX) 40 mg tablet Take 1 tablet by mouth once daily. docusate sodium (DOC-Q-LACE) 100 mg capsule Take 1 capsule by mouth twice daily as needed. aluminum AND magnesium hydroxide-simethicone (MAALOX PLUS EXTRA STRENGTH) 400-400-40 mg/5 mL suspension Take 20 mL by mouth every 6 hours as needed (upset stomach). pantoprazole DR (PROTONIX) 40 mg tablet Take 1 tablet by mouth daily before breakfast. Take on empty stomach, 1/2 hr before meal. Per Gastroenterology traZODone (DESYREL) 50 mg tablet Take 1 tablet by mouth at bedtime as needed (sedation). guaiFENesin (SILTUSSIN SA) 100 mg/5 mL syrup Take 10 mL by mouth three times daily as needed. triamcinolone acetonide (KENALOG) 0.1 % cream Apply to itching rash on chest twice daily ONLY when needed; may keep in room COMPOUNDED PRESCRIPTION Rollator, # one Dx: I50.33, I25.700, I48.0, J45.20, E66.01, M54.42, M25.551, Z91.81 ammonium lactate (LAC-HYDRIN) 12 % cream Apply 1 application to affected area twice daily as needed. furosemide (LASIX) 80 mg tablet One PO daily in AM oxybutynin (DITROPAN) 5 mg tablet Take 1 tablet by mouth three times daily. glimepiride (AMARYL) 1 mg tablet Take 1 tablet by mouth daily with breakfast. metoprolol tartrate, short acting, (LOPRESSOR) 25 mg tablet Take 1 tablet by mouth every 12 hours. ketoconazole (NIZORAL) 2 % shampoo Use as a body wash, most specifically the chest, daily for itching and flaking; may keep in own shower atorvastatin (LIPITOR) 80 mg tablet Take 1 tablet by mouth once daily. tamsulosin ER (FLOMAX) 0.4 mg cp24 Take 1 capsule by mouth every evening. for prostate metFORMIN (GLUCOPHAGE) 500 mg tablet Take 1 tablet by mouth three times daily with meals. nitroglycerin sublingual (NITROSTAT) 0.4 mg SL tablet Take 1 tablet by mouth as needed. for chest pain; dissolve on tongue. If no pain relief call 911. magnesium oxide (MAG-OX) 400 mg tablet Take 1 tablet by mouth once daily. COMPOUNDED PRESCRIPTION Please eval and fix any issues with walker.Dx: I50.33, I25.10, E66.01, M54.42, M25.551 bisacodyl (DULCOLAX) 10 mg supp 1 Suppository by RECTAL route once daily as needed (for constipation). COMPOUNDED PRESCRIPTION Glucometer high/low test solution for accucheck. DX: DM COMPOUNDED PRESCRIPTION Please perform a nocturnal oximetry on room air on BiPAP. Diagnosis: HypoxiaPlease fax results to [phone] Attn: Glendy Lancets (ACCU-CHEK FASTCLIX) lancets Test glucose twice weekly. Dx: 250.00. Insulin Use: no blood sugar diagnostic test strip testing twice weekly dx 250.00 insulin no Blood-Glucose Meter, Drum-type (ACCU-CHEK COMPACT PLUS CARE) kit Test fasting blood sugar 1-2 times a week and 2 hrs post meal 1- 2 times a week. Blood-Glucose Meter (ONETOUCH ULTRA 2) monitoring kit 1 Each as needed. One Touch Meter Kit Diagnosis: Diabetes Mellitus Blood Glucose Control, Normal (OT ULTRA/FASTTRACK CONTROL) soln Test controls as needed. COMPOUNDED PRESCRIPTION BIPAP setting: IPAP 22cm water with heated humidification EPAP setting of 16cm with supplemental oxygen bleed in at 2lt per minute. Mask (per patient preference) and supplies for lifetime. Please add chin strap DX EDMOND 327.23 No current facility-administered medications on file prior to visit. 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 Alcohol use: Yes 31.5 oz/week Cans of Beer (12oz): 7, Mixed Drinks: 14 per week Comment: 2/beer/mixed drink daily-states no ETOH since 09/2017 Drug use: No Sexual activity: No Social History Narrative OARRS report reviewed October 22, 2011 Matt Taylor MD Review of Symptoms REVIEW OF SYSTEMS GENERAL: No weight loss, malaise or fevers HEENT: see HPI. Has been having sinus pressure. No sore throat. NECK: Negative for lumps, goiter, pain and significant neck swelling RESPIRATORY: See HPI CARDIOVASCULAR: Negative for chest pain, leg swelling, hypertension, CHF or palpitations. swellling has still been very good. GI: No nausea, vomiting, or diarrhea and no blood. Has been having increased GERD with the productive cough in the AM. : No history of dysuria or blood. PSYCH: , has been sleeping well. Not always happy with his over all health and has been less involved. Not interested in trying something for depression at this time. ENDOCRINE: no low BS symptoms. Last few times BS's in Am have bee 130's NEURO: No history of syncope, paralysis, seizures or tremors EXAM: BP 132/80 (BP Site: Left Arm, BP Position: Sitting, BP Cuff Size: Large Adult) Pulse 76 Resp 16 Wt (!) 153.3 kg (338 lb) SpO2 90% BMI 45.84 kg/m? General Appearance: Well appearing, alert, in no acute distress, well-hydrated, well nourished. and Morbidly obese. Eyes: Anicteric sclera. Pupils are equally round and reactive to light. Extraocular movements are intact. . Nose/Sinuses: Nares normal, septum midline, mucosa normal, no drainage or sinus tenderness. Oropharynx: Lips, mucosa, and tongue normal, teeth and gums normal, oropharynx normal. Neck: Supple, no adenopathy; thyroid symmetric, normal size, no bruits. Lungs: lungs clear to auscultation. No wheezing, rhonchi, rales. Heart: RRR without murmur, gallop, or rubs. No ectopy. Abdomen: Normal abdominal exam, Abdomen soft, non-tender. Bowel sounds normal. No masses, organomegaly. Extremities: No deformities, edema. Has chronic venous stasis changes. No skin break down. Skin no longer dry and cracking due to use of lotion nightly. Musculoskeletal: Muscular strength intact. Peripheral Pulses: Normal. Neurologic: Gait normal. Reflexes normal and symmetric. Sensation to light touch and crainal nerves 2-12 intact.. Health Maintenance List BP CONTROLLED (<130/80) due on 1959 DTAP,TDAP,TD(1 - Tdap) due on 07/31/2006 CIELO/ARB MED PRESCRIBED due on 08/23/2018 STATIN MED ADHERENCE due on 08/23/2018 DIABETES MED ADHERENCE due on 08/23/2018 DIABETIC FOOT EXAM due on 09/16/2018 HBA1C due on 01/25/2019 DILATED RETINAL EXAM due on 04/05/2019 ANNUAL PCP TEAM CHRONIC DISEASE VISIT due on 05/23/2019 LDL CHOLESTEROL due on 07/27/2019 COLORECTAL CANCER SCREENING,SEE MODIFIER due on 12/29/2026 ADULT PREVNAR-13 Completed INFLUENZA Completed PNEUMOVAX AGE 65 AND OVER WITH 5YR LOOKBACK Completed Data reviewed Component Latest Ref Rng AND Units 05/25/2018 07/27/2018 NA 136 - 145 mmol/L 140 140 K 3.5 - 5.1 mmol/L 4.0 4.2 Chloride 98 - 107 MEQ/L 102 103 CO2 21 - 32 MEQ/L 24 25 Glucose 74 - 106 MG/DL 177 (A) 159 (A) BUN 7 - 18 MG/DL 19 (A) 23 (A) Creatinine 0.6 - 1.3 MG/DL 0.8 0.8 GFR mL/MIN 94 94 GFR AFR AMER mL/MIN 114 114 Total Protein 6.4 - 8.2 gm/dL 7.1 6.5 Albumin 3.2 - 4.6 gm/dL 4.0 3.6 Calcium 8.5 - 10.1 mg/dL 9.5 9.0 Bili Total 0.2 - 1 mg/dL 0.5 0.4 AST 8 - 37 U/L 20 16 ALT (SGPT) 12 - 78 U/L 22 13 Alk Phos Total 45 - 117 U/L 101 93 Cholesterol, Total 200 134 127 Triglyceride 150 214 (A) 160 (A) HDL CHOLESTEROL 40 28 (A) 25 (A) LDL Cholesterol 70 63 70 Hemoglobin A1C 4.3 - 5.6 7.0 (A) 7.0 (A) A/P ASSESSMENT/PLAN: 1. Controlled type 2 diabetes mellitus with diabetic nephropathy, without long-term current use of insulin (HCC) - ICD9: 250.40, 583.81, ICD10: E11.21 (primary diagnosis) Controlled at 7.0 but would like to try to get further reduction. - Increase glimepiride (Amaryl) to 2 mg a day - Encouraged regular aerobic exercise and weight loss - BP goal of <130/80 - LDL goal of <100 2. Diabetic eye exam (HCC) - ICD9: V72.0, 250.00, ICD10: Z01.00, E11.9 - Up to date 3. Essential hypertension, benign - ICD9: 401.1, ICD10: I10 - good control - Continue current medication(s) - Recommended regular aerobic exercise. - Recommend home blood pressure monitoring, to bring results in on next visit - Goal of BP <130/80 4. Mixed hyperlipidemia - ICD9: 272.2, ICD10: E78.2 - good control - Encouraged following a low fat, low cholesterol diet. - Discussed the benefits of regular aerobic exercise and weight loss. - Encouraged following a low carbohydrate, healthy oil intake diet. - Continue current therapy. 5. Bilateral leg edema - ICD9: 782.3, ICD10: R60.0 - None on exam today. cont current diuretics. 6. Coronary atherosclerosis due to lipid rich plaque - ICD9: 414.3, ICD10: I25.10, I25.83 - Clinically stable. No changes and cont f/u with Cardio 7. Acute on chronic diastolic CHF (congestive heart failure), NYHA class 4 (HCC) - ICD9: 428.33, 428.0, ICD10: I50.33 - As per #6 8. Mobitz (type) I (Wenckebach's) atrioventricular block - ICD9: 426.13, ICD10: I44.1 - As per #6 9. Gastroesophageal reflux disease without esophagitis - ICD9: 530.81, ICD10: K21.9 - Cont current meds as per gastro 10. Recurrent major depressive disorder, in remission (HCC) - ICD9: 296.35, ICD10: F33.40 - Discussed trying a medication but patient declined at this time. Most of this is situational related to health and medication will not change this. Will monitor. Feel medication not needed at this time. 11. Paroxysmal atrial fibrillation (HCC) - ICD9: 427.31, ICD10: I48.0 - Stable cont f/u with Cardio 12. EDMOND (obstructive sleep apnea) - ICD9: 327.23, ICD10: G47.33 - Continues to benefit from BiPAP and follow with Dr. Crowe. 13. Venous stasis dermatitis of both lower extremities - ICD9: 454.1, ICD10: I87.2 - No current issues. Cont support socks. 14. Hypomagnesemia - ICD9: 275.2, ICD10: E83.42 - Managed with replacement. 15. Morbid obesity due to excess calories (HCC) - ICD9: 278.01, ICD10: E66.01 - Patient to cont to try to work on weight loss. 16. Essential tremor - ICD9: 333.1, ICD10: G25.0 - stable no changes. 17. Bronchitis - ICD9: 490, ICD10: J40 Treat with - CEFADROXIL 500 MG CAPSULE twice a day for 10 days. Signed Prescriptions Disp Refills glimepiride (AMARYL) 2 mg tablet 90 tablet 3 Sig: Take 1 tablet by mouth daily with breakfast. cefADROxil (DURICEF) 500 mg capsule 20 capsule 0 Sig: Take 1 capsule by mouth twice daily. F/u 4 months Extensive and medicare wellness. Time entering room was 1:17 PM and time leaving was 1:58 PM (total face to face time was 41 min) Bertrand Leon MD CNOV Observed: 08/01/2018 Status: COMPLETED Source: [place] 1:20 PM [facility] REPOSITORY Office Visit ([facility]WS) MAYCO KENDRICK ([id number]) 1940 M NFR Date Time Provider Department 08/01/18 1:20 PM [facility] During your visit today, we recorded the following information about you: Pulse Respiration Blood pressure Weight 76/minute 16/minute 132/80 153.3 kg Bertrand Leon MD 08/01/2018 8:33 PM Signed Chief Complaint Patient presents with: Recheck Diarrhea: x 1 month HPI Mayco Garcíahop is a 77 year old male who presents here today for Chronic Medical Conditions.. Patient with Hx of DM 2, CAD, HTN, Hyperlipidemia, GERD as well as those reviewed and addressed below. Patient has been having a productive cough in the mornings for the past 2 months (approx). Will bring up yellow mucus. The cough tends to clear up by later morning. With the cough has increased GERD. He will become short of breath with the cough but goes away when the coughing is done. No hemoptysis. Denies post nasal drainage but will blow mucus out of his nose with the cough in the AM. May of felt chilled at times. Past medical history, appointments, medications, allergies reviewed. Previous Medical History PAST MEDICAL HISTORY Diagnosis Date - Abdominal pain 08/11/2014 w some distention. Appears chronic -abdominal ultrasound - ACUTE GASTRITIS W/O HEMORRHAGE 12/21/2006 - Acute on chronic diastolic CHF (congestive heart failure), NYHA class 4 (HCC) 03/08/2014 H/o HFpEF with diastolic dysfunction, ICM 55% EF Presents with CP and SOB Weight gain 30lbs in last 3 months Currently SOB and volume overload, in setting of unstable angina (killip 3) Plan Continue Diuresis As above for possible restrictive CM - ALLERGIC RHINITIS NOS 05/03/2006 - Asthma - Benign neoplasm of rectum and anal canal - Bilateral leg edema 11/05/2008 - Bradycardia 08/11/2014 Patient with sinus bradycardia with Type 1 Mobitz since 2011 however Pulse dropping to high 30s with dizziness Plan: Place on tele for monitoring EP evaluation for ? Pacemaker with new onset of symptoms 2/2 to relative hypotension vs bradycardia Daily EKGs to evaluate rhythm, still appears to be Mobitz type 1 Keep K and Mag above 4 and 2 respectively - Carpal tunnel syndrome 03/28/2010 - Chest pain 07/26/2014 73 year old male transferred from OSH for Unstable angina, chest pain on a Nitro and heparin Drip. First set of enzymes was negative. No ST-T wave chanes on EKG Mobitz type 1 AV block (chronic) ALVERTO score 5 With associated SOB and Pulmonary edema on CXR (Killip class 3) Found not to have acute plaque rupture ?Restrictive cardiomyopathy Will need LHC (LVEDP) and RHC tomorrow - per Dr. Pepe would like Dr. Randall PLAN NPO at midnight Call Cath Charge in AM to confirm schedule and attending Continue diuresis Additionally: - ASA - Stop plavix - reduce Atorvastatin to 20mg (home dose, last LDL ~55) - Losartan - Chest pain with painful respiration 08/11/2014 Chest heaviness. Unstable angina ? -stat EKG -telemetry - trend Ghazala - Closed compression fracture of L1 lumbar vertebra (HCC) 02/15/2018 Per ER 02/15/2018: compression of T12-L1 but not sure if old or new. May need dexa scan - Controlled type 2 diabetes mellitus with diabetic nephropathy ([facility]) 01/18/2014 - Coronary atherosclerosis due to lipid rich plaque 09/25/2015 - Depression - Diverticulosis of colon (without mention of hemorrhage) - DM type 2 (diabetes mellitus, type 2) ([facility]) 09/05/2014 - Essential hypertension, benign 02/02/2011 Essential hypertension, benign Home meds - losartan, norvasc, isosorbide mononitrate, lasix AND torsemide PLAN -hypotensive at OSH so hold bp meds for now. Resume as the bp normalizes. 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 Say Pulmonary 06/2017 and said he would be very high risk for a Bronch due to obesity and known diastolic LV dysfunction. [facility] - Hip fracture, right ([facility]) 09/22/2012 Treated medically - History of prostatitis 04/11/2013 - Hypertrophy of nasal turbinates 07/06/2012 consult with Bianka ENT 06/29/2012 Plan to schedule ablation of inferior turbinates @ [facility]. - Insomnia, unspecified 06/17/2011 OARRS report reviewed October 22, 2011 Matt Taylor MD - Lumbago 05/11/2007 - MALIGN NEOPL PROSTATE - Memory changes 01/26/2018 Saw psych 04/15/2018 and felt to be normal age related changes. - Mixed hyperlipidemia 07/26/2014 - Mobitz (type) I (Wenckebach's) atrioventricular block 07/26/[address] Eric Go in 2012. Chronic conduction abnormality. does not need a pacemaker. Here with concern for ACS EKG: mobitz type 1, unchanged from prior, no ST-T wave changes BP stable Plan: Monitor Avoiding BB - Morbid obesity due to excess calories ([facility]) 09/25/2015 - Nasal septal deviation 06/06/2018 - Nasal turbinate hypertrophy 07/06/2012 consult with Bianka ENT 06/29/2012 Plan to schedule ablation of inferior turbinates @ [facility]. - Nonspecific elevation of levels of transaminase or lactic acid dehydrogenase (LDH) - EDMOND (obstructive sleep apnea) 07/26/2014 On BIPAP at night - Other and unspecified disc disorder of unspecified region degenerative disc disorder - Paroxysmal atrial fibrillation (HCC) 04/07/2017 - Prostate cancer (HCC) - Recurrent major depressive disorder, in remission (HCC) 01/27/2016 - Reflux esophagitis - Substance abuse (HCC) - Type 2 diabetes mellitus with proteinuria or albuminuria 01/18/2014 - Type II or unspecified type diabetes mellitus without mention of complication, not stated as uncontrolled - Ulnar neuropathy at elbow of left upper extremity 12/30/2017 s/p surgery 12/2017 - Ulnar neuropathy at elbow of right upper extremity 05/26/2017 s/p surgery 08/2017 - Urgency of urination 02/01/2014 Previous Surgical History PAST SURGICAL HISTORY Procedure Laterality Date - CABG, ARTERY-VEIN, TWO 1998 CABG, two grafts - CHOLECYSTECTOMY HX 10/14/2015 gangrenous gallbladder - COLONOSCOP W/ OR W/O [facility] SPEC 01/27/2005 Colonoscopy - COLONOSCOP W/ OR W/O [facility] SPEC 12/21/2006` repeat in -2011 - COLONOSCOP W/ OR W/O [facility] SPEC 05/18/2012 Colonoscopy repeat 5 years - COLONOSCOPY 12/29/2016 repeat 10 yrs - EGD 12/29/2016 - EGD W/O [facility] SPECIMEN W/BX 12/21/06 - EGD W/O OR W/BRUSH/WASH 01/27/2005 EGD - EGD W/O OR W/BRUSH/WASH 11/21/14 EGD - OPEN CORONARY ENDARTERECTOMY 1999 Angioplasty with stent placement - PACEMAKER 2016 - REMOVAL OF TONSILS,<12 Y/O Tonsillectomy - REPAIR RETINAL DETACH, C 10/2010 - REVISE MEDIAN N/CARPAL TUNNEL SURG Right 09/10/2017 Right CTR - REVISE MEDIAN N/CARPAL TUNNEL SURG Left 01/14/2018 Left CTR - REVISE ULNAR NERVE AT ELBOW Right 09/10/2017 Right ulnar nerve decompression - REVISE ULNAR NERVE AT ELBOW Left 01/14/2018 Left unlar nerve decompression - TOTAL HIP REPLACEMENT 2000 Hip replacement, total, right - TOTAL HIP REPLACEMENT 2002 Hip replacement, total, left Family History FAMILY HISTORY Problem Relation Age of Onset - Heart Father - Cancer Mother Lung - Heart Paternal Grandfather - Heart Brother Patient Allergies ALLERGIES Allergen Reactions - Lisinopril Other: See Comments Metallic taste in mouth. - Sertraline GI Upset Current Medications Current Outpatient Prescriptions on File Prior to Visit: pantoprazole DR (PROTONIX) 40 mg tablet 1 TABLET BY MOUTH DAILY AT 6AM DX: GERD / NURSE TO REORDER aspirin, enteric coated (ADULT LOW DOSE ASPIRIN) 81 mg EC tablet Take 1 tablet by mouth once daily. Cholecalciferol, Vitamin D3, 2,000 unit cap Take 1 capsule by mouth once daily. acetaminophen (TYLENOL EXTRA STRENGTH) 500 mg tablet Take 1 tablet by mouth every 6 hours as needed for Pain. polyethylene glycol 3350 (MIRALAX, GLYCOLAX) 17 gram/dose powder Take 17 g by mouth once daily. Take one (1) capful in 8oz of liquid each day. COMPOUNDED PRESCRIPTION 2 oz prune juice, before bed, as needed for constipation. Ranitidine HCl 300 mg tablet 1 TABLET BY MOUTH WITH DINNER DX:GERD / NURSE TO REORDER furosemide (LASIX) 40 mg tablet Take 1 tablet by mouth once daily. docusate sodium (DOC-Q-LACE) 100 mg capsule Take 1 capsule by mouth twice daily as needed. aluminum AND magnesium hydroxide-simethicone (MAALOX PLUS EXTRA STRENGTH) 400-400-40 mg/5 mL suspension Take 20 mL by mouth every 6 hours as needed (upset stomach). pantoprazole DR (PROTONIX) 40 mg tablet Take 1 tablet by mouth daily before breakfast. Take on empty stomach, 1/2 hr before meal. Per Gastroenterology traZODone (DESYREL) 50 mg tablet Take 1 tablet by mouth at bedtime as needed (sedation). guaiFENesin (SILTUSSIN SA) 100 mg/5 mL syrup Take 10 mL by mouth three times daily as needed. triamcinolone acetonide (KENALOG) 0.1 % cream Apply to itching rash on chest twice daily ONLY when needed; may keep in room COMPOUNDED PRESCRIPTION Rollator, # one Dx: I50.33, I25.700, I48.0, J45.20, E66.01, M54.42, M25.551, Z91.81 ammonium lactate (LAC-HYDRIN) 12 % cream Apply 1 application to affected area twice daily as needed. furosemide (LASIX) 80 mg tablet One PO daily in AM oxybutynin (DITROPAN) 5 mg tablet Take 1 tablet by mouth three times daily. glimepiride (AMARYL) 1 mg tablet Take 1 tablet by mouth daily with breakfast. metoprolol tartrate, short acting, (LOPRESSOR) 25 mg tablet Take 1 tablet by mouth every 12 hours. ketoconazole (NIZORAL) 2 % shampoo Use as a body wash, most specifically the chest, daily for itching and flaking; may keep in own shower atorvastatin (LIPITOR) 80 mg tablet Take 1 tablet by mouth once daily. tamsulosin ER (FLOMAX) 0.4 mg cp24 Take 1 capsule by mouth every evening. for prostate metFORMIN (GLUCOPHAGE) 500 mg tablet Take 1 tablet by mouth three times daily with meals. nitroglycerin sublingual (NITROSTAT) 0.4 mg SL tablet Take 1 tablet by mouth as needed. for chest pain; dissolve on tongue. If no pain relief call 911. magnesium oxide (MAG-OX) 400 mg tablet Take 1 tablet by mouth once daily. COMPOUNDED PRESCRIPTION Please eval and fix any issues with walker.Dx: I50.33, I25.10, E66.01, M54.42, M25.551 bisacodyl (DULCOLAX) 10 mg supp 1 Suppository by RECTAL route once daily as needed (for constipation). COMPOUNDED PRESCRIPTION Glucometer high/low test solution for accucheck. DX: DM COMPOUNDED PRESCRIPTION Please perform a nocturnal oximetry on room air on BiPAP. Diagnosis: HypoxiaPlease fax results to [phone] Attn: Glendy Lancets (ACCU-CHEK FASTCLIX) lancets Test glucose twice weekly. Dx: 250.00. Insulin Use: no blood sugar diagnostic test strip testing twice weekly dx 250.00 insulin no Blood-Glucose Meter, Drum-type (ACCU-CHEK COMPACT PLUS CARE) kit Test fasting blood sugar 1-2 times a week and 2 hrs post meal 1-2 times a week. Blood-Glucose Meter (ONETOUCH ULTRA 2) monitoring kit 1 Each as needed. One Touch Meter Kit Diagnosis: Diabetes Mellitus Blood Glucose Control, Normal (OT ULTRA/FASTTRACK CONTROL) soln Test controls as needed. COMPOUNDED PRESCRIPTION BIPAP setting: IPAP 22cm water with heated humidification EPAP setting of 16cm with supplemental oxygen bleed in at 2lt per minute. Mask (per patient preference) and supplies for lifetime. Please add chin strap DX EDMOND 327.23 No current facility-administered medications on file prior to visit. 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 Alcohol use: Yes 31.5 oz/week Cans of Beer (12oz): 7, Mixed Drinks: 14 per week Comment: 2/beer/mixed drink daily-states no ETOH since 09/2017 Drug use: No Sexual activity: No Social History Narrative OARRS report reviewed October 22, 2011 Matt Taylor MD Review of Symptoms REVIEW OF SYSTEMS GENERAL: No weight loss, malaise or fevers HEENT: see HPI. Has been having sinus pressure. No sore throat. NECK: Negative for lumps, goiter, pain and significant neck swelling RESPIRATORY: See HPI CARDIOVASCULAR: Negative for chest pain, leg swelling, hypertension, CHF or palpitations. swellling has still been very good. GI: No nausea, vomiting, or diarrhea and no blood. Has been having increased GERD with the productive cough in the AM. : No history of dysuria or blood. PSYCH: , has been sleeping well. Not always happy with his over all health and has been less involved. Not interested in trying something for depression at this time. ENDOCRINE: no low BS symptoms. Last few times BS's in Am have bee 130's NEURO: No history of syncope, paralysis, seizures or tremors EXAM: BP 132/80 (BP Site: Left Arm, BP Position: Sitting, BP Cuff Size: Large Adult) Pulse 76 Resp 16 Wt (!) 153.3 kg (338 lb) SpO2 90% BMI 45.84 kg/m? General Appearance: Well appearing, alert, in no acute distress, well-hydrated, well nourished. and Morbidly obese. Eyes: Anicteric sclera. Pupils are equally round and reactive to light. Extraocular movements are intact. . Nose/Sinuses: Nares normal, septum midline, mucosa normal, no drainage or sinus tenderness. Oropharynx: Lips, mucosa, and tongue normal, teeth and gums normal, oropharynx normal. Neck: Supple, no adenopathy; thyroid symmetric, normal size, no bruits. Lungs: lungs clear to auscultation. No wheezing, rhonchi, rales. Heart: RRR without murmur, gallop, or rubs. No ectopy. Abdomen: Normal abdominal exam, Abdomen soft, non-tender. Bowel sounds normal. No masses, organomegaly. Extremities: No deformities, edema. Has chronic venous stasis changes. No skin break down. Skin no longer dry and cracking due to use of lotion nightly. Musculoskeletal: Muscular strength intact. Peripheral Pulses: Normal. Neurologic: Gait normal. Reflexes normal and symmetric. Sensation to light touch and crainal nerves 2-12 intact.. Health Maintenance List BP CONTROLLED (<130/80) due on 1959 DTAP,TDAP,TD(1 - Tdap) due on 07/31/2006 CIELO/ARB MED PRESCRIBED due on 08/23/2018 STATIN MED ADHERENCE due on 08/23/2018 DIABETES MED ADHERENCE due on 08/23/2018 DIABETIC FOOT EXAM due on 09/16/2018 HBA1C due on 01/25/2019 DILATED RETINAL EXAM due on 04/05/2019 ANNUAL PCP TEAM CHRONIC DISEASE VISIT due on 05/23/2019 LDL CHOLESTEROL due on 07/27/2019 COLORECTAL CANCER SCREENING,SEE MODIFIER due on 12/29/2026 ADULT PREVNAR-13 Completed INFLUENZA Completed PNEUMOVAX AGE 65 AND OVER WITH 5YR LOOKBACK Completed Data reviewed Component Latest Ref Rng AND Units 05/25/2018 07/27/2018 NA 136 - 145 mmol/L 140 140 K 3.5 - 5.1 mmol/L 4.0 4.2 Chloride 98 - 107 MEQ/L 102 103 CO2 21 - 32 MEQ/L 24 25 Glucose 74 - 106 MG/DL 177 (A) 159 (A) BUN 7 - 18 MG/DL 19 (A) 23 (A) Creatinine 0.6 - 1.3 MG/DL 0.8 0.8 GFR mL/MIN 94 94 GFR AFR AMER mL/MIN 114 114 Total Protein 6.4 - 8.2 gm/dL 7.1 6.5 Albumin 3.2 - 4.6 gm/dL 4.0 3.6 Calcium 8.5 - 10.1 mg/dL 9.5 9.0 Bili Total 0.2 - 1 mg/dL 0.5 0.4 AST 8 - 37 U/L 20 16 ALT (SGPT) 12 - 78 U/L 22 13 Alk Phos Total 45 - 117 U/L 101 93 Cholesterol, Total 200 134 127 Triglyceride 150 214 (A) 160 (A) HDL CHOLESTEROL 40 28 (A) 25 (A) LDL Cholesterol 70 63 70 Hemoglobin A1C 4.3 - 5.6 7.0 (A) 7.0 (A) A/P ASSESSMENT/PLAN: 1. Controlled type 2 diabetes mellitus with diabetic nephropathy, without long-term current use of insulin ([facility]) - ICD9: 250.40, 583.81, ICD10: E11.21 (primary diagnosis) Controlled at 7.0 but would like to try to get further reduction. - Increase glimepiride (Amaryl) to 2 mg a day - Encouraged regular aerobic exercise and weight loss - BP goal of <130/80 - LDL goal of <100 2. Diabetic eye exam (HCC) - ICD9: V72.0, 250.00, ICD10: Z01.00, E11.9 - Up to date 3. Essential hypertension, benign - ICD9: 401.1, ICD10: I10 - good control - Continue current medication(s) - Recommended regular aerobic exercise. - Recommend home blood pressure monitoring, to bring results in on next visit - Goal of BP <130/80 4. Mixed hyperlipidemia - ICD9: 272.2, ICD10: E78.2 - good control - Encouraged following a low fat, low cholesterol diet. - Discussed the benefits of regular aerobic exercise and weight loss. - Encouraged following a low carbohydrate, healthy oil intake diet. - Continue current therapy. 5. Bilateral leg edema - ICD9: 782.3, ICD10: R60.0 - None on exam today. cont current diuretics. 6. Coronary atherosclerosis due to lipid rich plaque - ICD9: 414.3, ICD10: I25.10, I25.83 - Clinically stable. No changes and cont f/u with Cardio 7. Acute on chronic diastolic CHF (congestive heart failure), NYHA class 4 ([facility]) - ICD9: 428.33, 428.0, ICD10: I50.33 - As per #6 8. Mobitz (type) I (Wenckebach's) atrioventricular block - ICD9: 426.13, ICD10: I44.1 - As per #6 9. Gastroesophageal reflux disease without esophagitis - ICD9: 530.81, ICD10: K21.9 - Cont current meds as per gastro 10. Recurrent major depressive disorder, in remission (HCC) - ICD9: 296.35, ICD10: F33.40 - Discussed trying a medication but patient declined at this time. Most of this is situational related to health and medication will not change this. Will monitor. Feel medication not needed at this time. 11. Paroxysmal atrial fibrillation (HCC) - ICD9: 427.31, ICD10: I48.0 - Stable cont f/u with Cardio 12. EDMOND (obstructive sleep apnea) - ICD9: 327.23, ICD10: G47.33 - Continues to benefit from BiPAP and follow with Dr. Crowe. 13. Venous stasis dermatitis of both lower extremities - ICD9: 454.1, ICD10: I87.2 - No current issues. Cont support socks. 14. Hypomagnesemia - ICD9: 275.2, ICD10: E83.42 - Managed with replacement. 15. Morbid obesity due to excess calories (HCC) - ICD9: 278.01, ICD10: E66.01 - Patient to cont to try to work on weight loss. 16. Essential tremor - ICD9: 333.1, ICD10: G25.0 - stable no changes. 17. Bronchitis - ICD9: 490, ICD10: J40 Treat with - CEFADROXIL 500 MG CAPSULE twice a day for 10 days. Signed Prescriptions Disp Refills glimepiride (AMARYL) 2 mg tablet 90 tablet 3 Sig: Take 1 tablet by mouth daily with breakfast. cefADROxil (DURICEF) 500 mg capsule 20 capsule 0 Sig: Take 1 capsule by mouth twice daily. F/u 4 months Extensive and medicare wellness. Time entering room was 1:17 PM and time leaving was 1:58 PM (total face to face time was 41 min) Bertrand Leon MD Referring Provider: MELLY MCCLOUD(LORI) [[id number]] Allergies As of Date: 08/01/2018 Noted Allergy Reaction LISINOPRIL 05/31/2014 14 - Other: See Comments Comments: Metallic taste in mouth. SERTRALINE 05/02/2013 8 - GI Upset Date Reviewed: 08/01/2018 Reviewed by: Bertrand Leon - Fully Assessed Reason for Visit: Recheck [92] Diarrhea [35] Cmt: x 1 month Reason For Visit History Recorded Primary Visit Diagnosis:Controlled type 2 diabetes mellitus with diabetic nephropathy, without long-term current use of insulin ([facility]) [E11.21] Other Visit Diagnoses:Diabetic eye exam ([facility]) [Z01.00, E11.9] Essential hypertension, benign [I10] Mixed hyperlipidemia [E78.2] Bilateral leg edema [R60.0] Coronary atherosclerosis due to lipid rich plaque [I25.10, I25.83] Acute on chronic diastolic CHF (congestive heart failure), NYHA class 4 ([facility]) [I50.33] Mobitz (type) I (Wenckebach's) atrioventricular block [I44.1] Gastroesophageal reflux disease without esophagitis [K21.9] Recurrent major depressive disorder, in remission ([facility]) [F33.40] Paroxysmal atrial fibrillation ([facility]) [I48.0] EDMOND (obstructive sleep apnea) [G47.33] Venous stasis dermatitis of both lower extremities [I87.2] Hypomagnesemia [E83.42] Morbid obesity due to excess calories ([facility]) [E66.01] Essential tremor [G25.0] Bronchitis [J40] Order(s):glimepiride (AMARYL) 2 mg tabletTake 1 tablet by mouth daily with breakfast.Disp: 90 tabletRfl: 3 cefADROxil (DURICEF) 500 mg capsuleTake 1 capsule by mouth twice daily.Disp: 20 capsuleRfl: 0 Prescriptions as of 08/01/2018 Sig: PANTOPRAZOLE 40 MG TABLET,DEL* 1 TABLET BY MOUTH DAILY AT 6A* ASPIRIN 81 MG TABLET,DELAYED * Take 1 tablet by mouth once d* CHOLECALCIFEROL (VITAMIN D3) * Take 1 capsule by mouth once * ACETAMINOPHEN 500 MG TABLET Take 1 tablet by mouth every * POLYETHYLENE GLYCOL 3350 17 G* Take 17 g by mouth once daily* COMPOUNDED PRESCRIPTION 2 oz prune juice, before bed,* RANITIDINE 300 MG TABLET 1 TABLET BY MOUTH WITH DINNER* FUROSEMIDE 40 MG TABLET Take 1 tablet by mouth once d* DOCUSATE SODIUM 100 MG CAPSULE Take 1 capsule by mouth twice* ALUMINUM-MAG HYDROXIDE-SIMETH* Take 20 mL by mouth every 6 h* PANTOPRAZOLE 40 MG TABLET,DEL* Take 1 tablet by mouth daily * TRAZODONE 50 MG TABLET Take 1 tablet by mouth at bed* GUAIFENESIN 100 MG/5 ML ORAL * Take 10 mL by mouth three agnes* TRIAMCINOLONE ACETONIDE 0.1 %* Apply to itching rash on ches* COMPOUNDED PRESCRIPTION Rollator, # one Dx: I50.33, I* AMMONIUM LACTATE 12 % TOPICAL* Apply 1 application to affect* FUROSEMIDE 80 MG TABLET One PO daily in AM OXYBUTYNIN CHLORIDE 5 MG TABL* Take 1 tablet by mouth three * METOPROLOL TARTRATE 25 MG TAB* Take 1 tablet by mouth every * KETOCONAZOLE 2 % SHAMPOO Use as a body wash, most spec* ATORVASTATIN 80 MG TABLET Take 1 tablet by mouth once d* TAMSULOSIN 0.4 MG CAPSULE Take 1 capsule by mouth every* METFORMIN 500 MG TABLET Take 1 tablet by mouth three * NITROGLYCERIN 0.4 MG SUBLINGU* Take 1 tablet by mouth as nee* MAGNESIUM OXIDE 400 MG (241.3* Take 1 tablet by mouth once d* COMPOUNDED PRESCRIPTION Please eval and fix any issue* BISACODYL 10 MG RECTAL SUPPOS* 1 Suppository by RECTAL route* COMPOUNDED PRESCRIPTION Glucometer high/low test solu* COMPOUNDED PRESCRIPTION Please perform a nocturnal ox* LANCETS Test glucose twice weekly. Dx* BLOOD SUGAR DIAGNOSTIC STRIPS testing twice weekly dx 250* BLOOD-GLUCOSE METER, DRUM-TYP* Test fasting blood sugar 1-2 * BLOOD-GLUCOSE METER KIT 1 Each as needed. One Touch M* BLOOD GLUCOSE CONTROL, NORMAL* Test controls as needed. * COMPOUNDED PRESCRIPTION BIPAP setting: IPAP 22cm wate* GLIMEPIRIDE 2 MG TABLET Take 1 tablet by mouth daily * CEFADROXIL 500 MG CAPSULE Take 1 capsule by mouth twice* Problem List As Of Date 08/01/2018 Noted Resolved Mild intermittent asthma without complication [* MALIGN NEOPL PROSTATE [C61] More... Type II or unspecified type diabetes mellitus w* 01/18/2014 Allergic rhinitis, cause unspecified [J30.9] INVALID FOR* More... Personal history of colonic polyps [Z86.010] More... Lumbago [M54.5] INVALID FOR* Bilateral leg edema [R60.0] INVALID FOR* Carpal tunnel syndrome, bilateral [G56.03] INVALID FOR* More... Essential hypertension, benign [I10] INVALID FOR* More... Insomnia, unspecified [G47.00] INVALID FOR* More... Benign neoplasm of rectum and anal canal [D12.8*INVALID FOR* Diverticulosis of colon (without mention of hem*INVALID FOR* Nasal turbinate hypertrophy [J34.3] INVALID FOR* More... History of prostatitis [Z87.438] INVALID FOR* Heart block AV complete [I44.2] INVALID FOR* Frequency of urination [R35.0] INVALID FOR* Urgency of urination [R39.15] INVALID FOR* Acute on chronic diastolic CHF (congestive hear*INVALID FOR* More... More... More... EDMOND (obstructive sleep apnea) [G47.33] INVALID FOR* More... Mobitz (type) I (Wenckebach's) atrioventricular*INVALID FOR* More... More... Mixed hyperlipidemia [E78.2] INVALID FOR* More... DVT prophylaxis [[id number]] INVALID FOR*07/26/2014 More... More... More... More... More... More... Bradycardia [R00.1] INVALID FOR* More... Venous stasis dermatitis of both lower extremit*INVALID FOR* Counseling and coordination of care [Z71.89] INVALID FOR*04/12/2015 More... Hypomagnesemia [E83.42] INVALID FOR* Diabetic eye exam (HCC) [Z01.00, E11.9] INVALID FOR* More... Dry mouth [R68.2] INVALID FOR* Noncompliance [Z91.19] INVALID FOR* Gastroesophageal reflux disease without esophag*INVALID FOR* Coronary atherosclerosis due to lipid rich plaq*INVALID FOR* Morbid obesity due to excess calories (HCC) [E6*INVALID FOR* More... Essential tremor [G25.0] INVALID FOR* Chronic cough [R05] INVALID FOR* Well adult exam [Z00.00] INVALID FOR*01/07/2018 More... Controlled type 2 diabetes mellitus with diabet*INVALID FOR* Recurrent major depressive disorder, in remissi*INVALID FOR* Colon cancer screening [Z12.11] INVALID FOR* More... Second degree heart block [I44.1] INVALID FOR* More... Atherosclerosis of coronary artery bypass graft*INVALID FOR* More... More... More... More... Hypoxia [R09.02] INVALID FOR* Chronic bilateral low back pain with left-sided*INVALID FOR* Bilateral hip pain [M25.551, M25.552] INVALID FOR* Paroxysmal atrial fibrillation (HCC) [I48.0] INVALID FOR* More... More... More... 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 More... Current use of proton pump inhibitor [Z79.899] INVALID FOR* More... More... More... Hemoptysis [R04.2] INVALID FOR* More... At high risk for falls [Z91.81] INVALID FOR* Memory changes [R41.3] INVALID FOR* More... Closed compression fracture of L1 lumbar verteb*INVALID FOR* More... Chronic constipation [K59.09] INVALID FOR* Nasal septal deviation [J34.2] INVALID FOR* Hypertrophy of both inferior nasal turbinates [*INVALID FOR* Prescriptions ordered this encounter Disp Refills Start End GLIMEPIRIDE 2 MG TABLET 90 t* 3 08/01/2018 Cmt: This is to replace his 1 mg tab. Route: ORAL Sig: Take 1 tablet by mouth daily with breakfast. CEFADROXIL 500 MG CAPSULE 20 c* 0 08/01/2018 Route: ORAL Sig: Take 1 capsule by mouth twice daily. Medications Discontinued During This Encounter glimepiride (AMARYL) 1 mg tablet 90 t* 3 10/06/2017 08/01/2018 Route: ORAL Sig: Take 1 tablet by mouth daily with breakfast. Disc: Changing Therapy/Dosage Form Disposition: Return in about 4 months (around 11/30/2018) for extensive and nedicare wellness. 40 min. Follow-up and Disposition History Recorded Encounter Status:Closed by BERTRAND LEON on 08/01/18 HOSP Observed: 07/28/2018 Status: COMPLETED Source: [place] 12:00 AM [facility] RE[facility] Patient Update (FAMPWS) MAYCO KENDRICK ([id number]) 1940 [facility] Date Time Provider Department 07/28/18 [facility] During your visit today, we recorded the following information about you: Allergies As of Date: 07/28/2018 Noted Allergy Reaction LISINOPRIL 05/31/2014 14 - Other: See Comments Comments: Metallic taste in mouth. SERTRALINE 05/02/2013 8 - GI Upset Date Reviewed: 06/20/2018 Reviewed by: Rebecca (Uyen) Tommy - Fully Assessed Order(s):CMP (EXTERNAL) [[id number]] Order #: [id number] LIPID PANEL (OUTSIDE) [[id number]] Order #: [id number] HBA1C (OUTSIDE) [[id number]] Order #: [id number] Prescriptions as of 07/28/2018 Sig: PANTOPRAZOLE 40 MG TABLET,DEL* 1 TABLET BY MOUTH DAILY AT 6A* ASPIRIN 81 MG TABLET,DELAYED * Take 1 tablet by mouth once d* CHOLECALCIFEROL (VITAMIN D3) * Take 1 capsule by mouth once * ACETAMINOPHEN 500 MG TABLET Take 1 tablet by mouth every * POLYETHYLENE GLYCOL 3350 17 G* Take 17 g by mouth once daily* COMPOUNDED PRESCRIPTION 2 oz prune juice, before bed,* RANITIDINE 300 MG TABLET 1 TABLET BY MOUTH WITH DINNER* FUROSEMIDE 40 MG TABLET Take 1 tablet by mouth once d* DOCUSATE SODIUM 100 MG CAPSULE Take 1 capsule by mouth twice* ALUMINUM-MAG HYDROXIDE-SIMETH* Take 20 mL by mouth every 6 h* PANTOPRAZOLE 40 MG TABLET,DEL* Take 1 tablet by mouth daily * TRAZODONE 50 MG TABLET Take 1 tablet by mouth at bed* GUAIFENESIN 100 MG/5 ML ORAL * Take 10 mL by mouth three agnes* TRIAMCINOLONE ACETONIDE 0.1 %* Apply to itching rash on ches* COMPOUNDED PRESCRIPTION Rollator, # one Dx: I50.33, I* AMMONIUM LACTATE 12 % TOPICAL* Apply 1 application to affect* FUROSEMIDE 80 MG TABLET One PO daily in AM OXYBUTYNIN CHLORIDE 5 MG TABL* Take 1 tablet by mouth three * GLIMEPIRIDE 1 MG TABLET Take 1 tablet by mouth daily * METOPROLOL TARTRATE 25 MG TAB* Take 1 tablet by mouth every * KETOCONAZOLE 2 % SHAMPOO Use as a body wash, most spec* ATORVASTATIN 80 MG TABLET Take 1 tablet by mouth once d* TAMSULOSIN 0.4 MG CAPSULE Take 1 capsule by mouth every* METFORMIN 500 MG TABLET Take 1 tablet by mouth three * NITROGLYCERIN 0.4 MG SUBLINGU* Take 1 tablet by mouth as nee* MAGNESIUM OXIDE 400 MG (241.3* Take 1 tablet by mouth once d* COMPOUNDED PRESCRIPTION Please eval and fix any issue* BISACODYL 10 MG RECTAL SUPPOS* 1 Suppository by RECTAL route* COMPOUNDED PRESCRIPTION Glucometer high/low test solu* COMPOUNDED PRESCRIPTION Please perform a nocturnal ox* LANCETS Test glucose twice weekly. Dx* BLOOD SUGAR DIAGNOSTIC STRIPS testing twice weekly dx 250* BLOOD-GLUCOSE METER, DRUM-TYP* Test fasting blood sugar 1-2 * BLOOD-GLUCOSE METER KIT 1 Each as needed. One Touch M* BLOOD GLUCOSE CONTROL, NORMAL* Test controls as needed. * COMPOUNDED PRESCRIPTION BIPAP setting: IPAP 22cm wate* Problem List As Of Date 07/28/2018 Noted Resolved Mild intermittent asthma without complication [* MALIGN NEOPL PROSTATE [C61] More... Type II or unspecified type diabetes mellitus w* 01/18/2014 Allergic rhinitis, cause unspecified [J30.9] INVALID FOR* More... Personal history of colonic polyps [Z86.010] More... Lumbago [M54.5] INVALID FOR* Bilateral leg edema [R60.0] INVALID FOR* Carpal tunnel syndrome, bilateral [G56.03] INVALID FOR* More... Essential hypertension, benign [I10] INVALID FOR* More... Insomnia, unspecified [G47.00] INVALID FOR* More... Benign neoplasm of rectum and anal canal [D12.8*INVALID FOR* Diverticulosis of colon (without mention of hem*INVALID FOR* Nasal turbinate hypertrophy [J34.3] INVALID FOR* More... History of prostatitis [Z87.438] INVALID FOR* Heart block AV complete [I44.2] INVALID FOR* Frequency of urination [R35.0] INVALID FOR* Urgency of urination [R39.15] INVALID FOR* Acute on chronic diastolic CHF (congestive hear*INVALID FOR* More... More... More... EDMOND (obstructive sleep apnea) [G47.33] INVALID FOR* More... Mobitz (type) I (Wenckebach's) atrioventricular*INVALID FOR* More... More... Mixed hyperlipidemia [E78.2] INVALID FOR* More... DVT prophylaxis [OFR7224] INVALID FOR*07/26/2014 More... More... More... More... More... More... Bradycardia [R00.1] INVALID FOR* More... Venous stasis dermatitis of both lower extremit*INVALID FOR* Counseling and coordination of care [Z71.89] INVALID FOR*04/12/2015 More... Hypomagnesemia [E83.42] INVALID FOR* Diabetic eye exam (HCC) [Z01.00, E11.9] INVALID FOR* More... Dry mouth [R68.2] INVALID FOR* Noncompliance [Z91.19] INVALID FOR* Gastroesophageal reflux disease without esophag*INVALID FOR* Coronary atherosclerosis due to lipid rich plaq*INVALID FOR* Morbid obesity due to excess calories (HCC) [E6*INVALID FOR* More... Essential tremor [G25.0] INVALID FOR* Chronic cough [R05] INVALID FOR* Well adult exam [Z00.00] INVALID FOR*01/07/2018 More... Controlled type 2 diabetes mellitus with diabet*INVALID FOR* Depression [F32.9] INVALID FOR* Multiple open wounds of lower leg [S81.809A] INVALID FOR* Colon cancer screening [Z12.11] INVALID FOR* Chest pain [R07.9] INVALID FOR* More... Second degree heart block [I44.1] INVALID FOR* More... Atherosclerosis of coronary artery bypass graft*INVALID FOR* More... More... More... More... Hypoxia [R09.02] INVALID FOR* Chronic bilateral low back pain with left-sided*INVALID FOR* Bilateral hip pain [M25.551, M25.552] INVALID FOR* Paroxysmal atrial fibrillation (HCC) [I48.0] INVALID FOR* More... 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 More... 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 More... Current use of proton pump inhibitor [Z79.899] INVALID FOR* More... More... Ulnar neuropathy at elbow of left upper extremi*INVALID FOR* More... Hemoptysis [R04.2] INVALID FOR* More... At high risk for falls [Z91.81] INVALID FOR* Memory changes [R41.3] INVALID FOR* More... Closed compression fracture of L1 lumbar verteb*INVALID FOR* More... Chronic constipation [K59.09] INVALID FOR* Nasal septal deviation [J34.2] INVALID FOR* Hypertrophy of both inferior nasal turbinates [*INVALID FOR* More... Encounter Status:Closed by BERTRAND LEON on 07/28/18 CNCNPATED Observed: 06/20/2018 Status: COMPLETED Source: [place] 2:00 PM [facility] REPOSITORY Education (NUTRWS) MAYCO KENDRICK ([id number]) 1940 M NFR Date Time Provider Department 06/20/18 2:00 PM REBECCA SANDERS) JOSE Reason for Visit: Patient Education [91] Reassessment [554] Progress Notes: Rebecca Sanders, MS QIU 06/20/2018 2:16 PM Signed Nutritional Therapy Re-Assessment PAIN: Is the patient having any pain that is interfering with oral / enteral intake? No 0 on a scale of 0 to 10 PROGRESS: Nutrition Intervention (date of last encounter 05/09/18): 1. Go to exercise room twice per week. Plan to walk for exercise twice per week ;and community center one time per week/[facility]; if able use pool for exercise 2. Continue to make best choice as able with menus provided. 3. Stop eating when comfortable not full, smaller portions, avoid desserts CHANGES IN TREATMENT: Patient met goal(s): No Actions to implement interventions: Exercise bike-most days 2-3 x per week 30 min total Diet History: Meal provided by facility, cooks give smaller portions., sugar free desserts when provided . Under 150 but some higher, today 180 CLINICAL IMPRESSIONS: fair REVISIONS IN DIAGNOSIS: Diagnosis: has not changed. Allergies: Lisinopril; Sertraline Medications: Current Outpatient Prescriptions: polyethylene glycol 3350 (MIRALAX, GLYCOLAX) 17 gram/dose powder Take 17 g by mouth once daily. Take one (1) capful in 8oz of liquid each day. Disp: 1 Bottle Rfl: 11 COMPOUNDED PRESCRIPTION 2 oz prune juice, before bed, as needed for constipation. Disp: 1 Bottle Rfl: 11 Ranitidine HCl 300 mg tablet 1 TABLET BY MOUTH WITH DINNER DX:GERD / NURSE TO REORDER Disp: 90 tablet Rfl: 3 furosemide (LASIX) 40 mg tablet Take 1 tablet by mouth once daily. Disp: 30 tablet Rfl: 11 docusate sodium (DOC-Q-LACE) 100 mg capsule Take 1 capsule by mouth twice daily as needed. Disp: 180 capsule Rfl: 3 aluminum AND magnesium hydroxide-simethicone (MAALOX PLUS EXTRA STRENGTH) 400-400-40 mg/5 mL suspension Take 20 mL by mouth every 6 hours as needed (upset stomach). Disp: 500 mL Rfl: [address] (PROTONIX) 40 mg tablet Take 1 tablet by mouth daily before breakfast. Take on empty stomach, 1/2 hr before meal. Per Gastroenterology Disp: 30 tablet Rfl: 11 traZODone (DESYREL) 50 mg tablet Take 1 tablet by mouth at bedtime as needed (sedation). Disp: 15 tablet Rfl: 5 guaiFENesin (SILTUSSIN SA) 100 mg/5 mL syrup Take 10 mL by mouth three times daily as needed. Disp: Rfl: 0 triamcinolone acetonide (KENALOG) 0.1 % cream Apply to itching rash on chest twice daily ONLY when needed; may keep in room Disp: 454 g Rfl: 2 COMPOUNDED PRESCRIPTION Rollator, # one Dx: I50.33, I25.700, I48.0, J45.20, E66.01, M54.42, M25.551, Z91.81 Disp: 1 Device Rfl: 0 ammonium lactate (LAC-HYDRIN) 12 % cream Apply 1 application to affected area twice daily as needed. Disp: 385 g Rfl: 11 furosemide (LASIX) 80 mg tablet One PO daily in AM Disp: 90 tablet Rfl: 3 oxybutynin (DITROPAN) 5 mg tablet Take 1 tablet by mouth three times daily. Disp: 90 tablet Rfl: 11 glimepiride (AMARYL) 1 mg tablet Take 1 tablet by mouth daily with breakfast. Disp: 90 tablet Rfl: 3 metoprolol tartrate, short acting, (LOPRESSOR) 25 mg tablet Take 1 tablet by mouth every 12 hours. Disp: 180 tablet Rfl: 3 ketoconazole (NIZORAL) 2 % shampoo Use as a body wash, most specifically the chest, daily for itching and flaking; may keep in own shower Disp: 340 mL Rfl: 6 atorvastatin (LIPITOR) 80 mg tablet Take 1 tablet by mouth once daily. Disp: 90 tablet Rfl: 3 tamsulosin ER (FLOMAX) 0.4 mg cp24 Take 1 capsule by mouth every evening. for prostate Disp: 90 capsule Rfl: 3 metFORMIN (GLUCOPHAGE) 500 mg tablet Take 1 tablet by mouth three times daily with meals. Disp: 270 tablet Rfl: 3 nitroglycerin sublingual (NITROSTAT) 0.4 mg SL tablet Take 1 tablet by mouth as needed. for chest pain; dissolve on tongue. If no pain relief call 911. Disp: 2 Bottle of 25 Rfl: 5 magnesium oxide (MAG-OX) 400 mg tablet Take 1 tablet by mouth once daily. Disp: 90 tablet Rfl: 3 COMPOUNDED PRESCRIPTION Please eval and fix any issues with walker.Dx: I50.33, I25.10, E66.01, M54.42, M25.551 Disp: 1 Device Rfl: 0 bisacodyl (DULCOLAX) 10 mg supp 1 Suppository by RECTAL route once daily as needed (for constipation). Disp: Rfl: 0 aspirin, enteric coated (ADULT LOW DOSE ASPIRIN) 81 mg EC tablet Take 1 tablet by mouth once daily. Disp: 90 tablet Rfl: 3 COMPOUNDED PRESCRIPTION Glucometer high/low test solution for accucheck. DX: DM Disp: 1 Bottle Rfl: 3 COMPOUNDED PRESCRIPTION Please perform a nocturnal oximetry on room air on BiPAP. Diagnosis: HypoxiaPlease fax results to [phone] Attn: Glendy Disp: 1 Each Rfl: 0 Lancets (ACCU-CHEK FASTCLIX) lancets Test glucose twice weekly. Dx: 250.00. Insulin Use: no Disp: 100 Each Rfl: 11 blood sugar diagnostic test strip testing twice weekly dx 250.00 insulin no Disp: 50 Strip Rfl: 12 Blood-Glucose Meter, Drum-type (ACCU-CHEK COMPACT PLUS CARE) kit Test fasting blood sugar 1-2 times a week and 2 hrs post meal 1-2 times a week. Disp: 1 Kit Rfl: 0 Blood-Glucose Meter (ONETOUCH ULTRA 2) monitoring kit 1 Each as needed. One Touch Meter Kit Diagnosis: Diabetes Mellitus Disp: 1 Each Rfl: 0 Blood Glucose Control, Normal (OT ULTRA/FASTTRACK CONTROL) soln Test controls as needed. Disp: 1 Each Rfl: 3 COMPOUNDED PRESCRIPTION BIPAP setting: IPAP 22cm water with heated humidification EPAP setting of 16cm with supplemental oxygen bleed in at 2lt per minute. Mask (per patient preference) and supplies for lifetime. Please add chin strap DX EDMOND 327.23 Disp: 1 Act Rfl: 99 No current facility-administered medications for this visit. (currently taking) Anthropometrics: Height: Last 1 Encounter Ht Readings: Date: Ht: 06/20/2018 182.9 cm (6') Current weight: Last 1 Encounter Wt Readings: Date: Wt: 06/20/2018 153.3 kg (338 lb) Body mass index is 45.84 kg/m?. Resting Metabolic Rate: 2305 NUTRITION ASSESSMENT: Malnutrition Screening Significant unintentional weight loss? No Eating less than 75% of usual intake for more than 2 weeks? No RECOMMENDED MALNUTRITION DIAGNOSIS: NO MALNUTRITION IDENTIFIED Educational materials provided: none this visit READINESS TO LEARN Cognitive ability: Alert and oriented Motivation to learn: Interested Family support: Unable to assess - Family not present Instruction provided to: Patient Patient learns best by: Individual Instruction Factors affecting learning: None Physical limitations affecting learning: None Likelihood of Adherence: Moderate Patient presents for follow up MNT as relates to diabetes and for weightloss. Continues to make best choices possible, exercise has decreased. Note weight increased 5 pounds from last visit. Had success with losing from 359 at highest point but has been depressed, high stress lately and on upward trend since February. Apartment mates negative. Nutrition Diagnosis: Overweight Obesity, related to; excess energy intake and physical inactivity, as evidenced by BMI above normative standard for age and gender. Nutrition Intervention 06/20/2018: modify type and amount of food or beverage 1. Find positive outlet, social options ([place]) 2. Increase exercise to 35 minutes 3. Continue smaller portions, best options. 4. Stop eating when comfortable not full, smaller portions, limit desserts to one time per week Nutrition Monitoring AND Evaluation: weight loss Criteria: patient update Need for Follow up: 6-8 weeks Referred/Supervised by: Amairani NOBLE Billing Type: Re-assess/15 min 2 units SIGNATURE: MS UYEN Jeffries PATIENT NAME: Mayco Kendrick DATE: June 20, 2018 TIME: 1:41 PM MS UYEN Jeffries 06/20/2018 2:07 PM Addendum 1. Find positive outlet, social options ([place]) 2. Increase exercise to 35 minutes 3. Continue smaller portions, best options. 4. Stop eating when comfortable not full, smaller portions, limit desserts to one time per week Previous Version Document on: 06/20/2018 by: Rebecca Sanders [[id number]] of: Manufacturing Controls Engineer Worksheet Document on: 06/20/2018 by: Rebecca Sanders [[id number]] of: After Visit Summary Other instructions from your clinician: 1. Find positive outlet, social options ([place]) 2. Increase exercise to 35 minutes 3. Continue smaller portions, best options. 4. 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 SERTRALINE 05/02/2013 8 - GI Upset Date Reviewed: 06/20/2018 Reviewed by: Rebecca Sanders - Fully Assessed Prescriptions as of 06/20/2018 Sig: POLYETHYLENE GLYCOL 3350 17 G* Take 17 g by mouth once daily* COMPOUNDED PRESCRIPTION 2 oz prune juice, before bed,* RANITIDINE 300 MG TABLET 1 TABLET BY MOUTH WITH DINNER* FUROSEMIDE 40 MG TABLET Take 1 tablet by mouth once d* DOCUSATE SODIUM 100 MG CAPSULE Take 1 capsule by mouth twice* ALUMINUM-MAG HYDROXIDE-SIMETH* Take 20 mL by mouth every 6 h* PANTOPRAZOLE 40 MG TABLET,DEL* Take 1 tablet by mouth daily * TRAZODONE 50 MG TABLET Take 1 tablet by mouth at bed* GUAIFENESIN 100 MG/5 ML ORAL * Take 10 mL by mouth three agnes* TRIAMCINOLONE ACETONIDE 0.1 %* Apply to itching rash on ches* COMPOUNDED PRESCRIPTION Rollator, # one Dx: I50.33, I* AMMONIUM LACTATE 12 % TOPICAL* Apply 1 application to affect* FUROSEMIDE 80 MG TABLET One PO daily in AM OXYBUTYNIN CHLORIDE 5 MG TABL* Take 1 tablet by mouth three * GLIMEPIRIDE 1 MG TABLET Take 1 tablet by mouth daily * METOPROLOL TARTRATE 25 MG TAB* Take 1 tablet by mouth every * KETOCONAZOLE 2 % SHAMPOO Use as a body wash, most spec* ATORVASTATIN 80 MG TABLET Take 1 tablet by mouth once d* TAMSULOSIN 0.4 MG CAPSULE Take 1 capsule by mouth every* METFORMIN 500 MG TABLET Take 1 tablet by mouth three * NITROGLYCERIN 0.4 MG SUBLINGU* Take 1 tablet by mouth as nee* MAGNESIUM OXIDE 400 MG (241.3* Take 1 tablet by mouth once d* COMPOUNDED PRESCRIPTION Please eval and fix any issue* BISACODYL 10 MG RECTAL SUPPOS* 1 Suppository by RECTAL route* ASPIRIN 81 MG TABLET,DELAYED * Take 1 tablet by mouth once d* COMPOUNDED PRESCRIPTION Glucometer high/low test solu* COMPOUNDED PRESCRIPTION Please perform a nocturnal ox* LANCETS Test glucose twice weekly. Dx* BLOOD SUGAR DIAGNOSTIC STRIPS testing twice weekly dx 250* BLOOD-GLUCOSE METER, DRUM-TYP* Test fasting blood sugar 1-2 * BLOOD-GLUCOSE METER KIT 1 Each as needed. One Touch M* BLOOD GLUCOSE CONTROL, NORMAL* Test controls as needed. * COMPOUNDED PRESCRIPTION BIPAP setting: IPAP 22cm wate* Encounter Status:Closed by REBECCA CARRILLO MS, RD on 06/20/18 PROGRESS Observed: 06/20/2018 Status: COMPLETED Source: [place] 1:37 PM [facility] REPOSITORY O ID: [id number] Author: Rebecca (Uyen) Tommy Service: (none) Author Type: Registered Dietitian Type: Progress Notes Filed: 06/20/2018 2:16 PM Note Text: Nutritional Therapy Re-Assessment PAIN: Is the patient having any pain that is interfering with oral / enteral intake? No 0 on a scale of 0 to 10 PROGRESS: Nutrition Intervention (date of last encounter 05/09/18): 1. Go to exercise room twice per week. Plan to walk for exercise twice per week ;and community center one time per week/[facility]; if able use pool for exercise 2. Continue to make best choice as able with menus provided. 3. Stop eating when comfortable not full, smaller portions, avoid desserts CHANGES IN TREATMENT: Patient met goal(s): No Actions to implement interventions: Exercise bike-most days 2-3 x per week 30 min total Diet History: Meal provided by facility, cooks give smaller portions., sugar free desserts when provided . Under 150 but some higher, today 180 CLINICAL IMPRESSIONS: fair REVISIONS IN DIAGNOSIS: Diagnosis: has not changed. Allergies: Lisinopril; Sertraline Medications: Current Outpatient Prescriptions: polyethylene glycol 3350 (MIRALAX, GLYCOLAX) 17 gram/dose powder Take 17 g by mouth once daily. Take one (1) capful in 8oz of liquid each day. Disp: 1 Bottle Rfl: 11 COMPOUNDED PRESCRIPTION 2 oz prune juice, before bed, as needed for constipation. Disp: 1 Bottle Rfl: 11 Ranitidine HCl 300 mg tablet 1 TABLET BY MOUTH WITH DINNER DX:GERD / NURSE TO REORDER Disp: 90 tablet Rfl: 3 furosemide (LASIX) 40 mg tablet Take 1 tablet by mouth once daily. Disp: 30 tablet Rfl: 11 docusate sodium (DOC-Q-LACE) 100 mg capsule Take 1 capsule by mouth twice daily as needed. Disp: 180 capsule Rfl: 3 aluminum AND magnesium hydroxide-simethicone (MAALOX PLUS EXTRA STRENGTH) 400-400-40 mg/5 mL suspension Take 20 mL by mouth every 6 hours as needed (upset stomach). Disp: 500 mL Rfl: [address] (PROTONIX) 40 mg tablet Take 1 tablet by mouth daily before breakfast. Take on empty stomach, 1/2 hr before meal. Per Gastroenterology Disp: 30 tablet Rfl: 11 traZODone (DESYREL) 50 mg tablet Take 1 tablet by mouth at bedtime as needed (sedation). Disp: 15 tablet Rfl: 5 guaiFENesin (SILTUSSIN SA) 100 mg/5 mL syrup Take 10 mL by mouth three times daily as needed. Disp: Rfl: 0 triamcinolone acetonide (KENALOG) 0.1 % cream Apply to itching rash on chest twice daily ONLY when needed; may keep in room Disp: 454 g Rfl: 2 COMPOUNDED PRESCRIPTION Rollator, # one Dx: I50.33, I25.700, I48.0, J45.20, E66.01, M54.42, M25.551, Z91.81 Disp: 1 Device Rfl: 0 ammonium lactate (LAC-HYDRIN) 12 % cream Apply 1 application to affected area twice daily as needed. Disp: 385 g Rfl: 11 furosemide (LASIX) 80 mg tablet One PO daily in AM Disp: 90 tablet Rfl: 3 oxybutynin (DITROPAN) 5 mg tablet Take 1 tablet by mouth three times daily. Disp: 90 tablet Rfl: 11 glimepiride (AMARYL) 1 mg tablet Take 1 tablet by mouth daily with breakfast. Disp: 90 tablet Rfl: 3 metoprolol tartrate, short acting, (LOPRESSOR) 25 mg tablet Take 1 tablet by mouth every 12 hours. Disp: 180 tablet Rfl: 3 ketoconazole (NIZORAL) 2 % shampoo Use as a body wash, most specifically the chest, daily for itching and flaking; may keep in own shower Disp: 340 mL Rfl: 6 atorvastatin (LIPITOR) 80 mg tablet Take 1 tablet by mouth once daily. Disp: 90 tablet Rfl: 3 tamsulosin ER (FLOMAX) 0.4 mg cp24 Take 1 capsule by mouth every evening. for prostate Disp: 90 capsule Rfl: 3 metFORMIN (GLUCOPHAGE) 500 mg tablet Take 1 tablet by mouth three times daily with meals. Disp: 270 tablet Rfl: 3 nitroglycerin sublingual (NITROSTAT) 0.4 mg SL tablet Take 1 tablet by mouth as needed. for chest pain; dissolve on tongue. If no pain relief call 911. Disp: 2 Bottle of 25 Rfl: 5 magnesium oxide (MAG-OX) 400 mg tablet Take 1 tablet by mouth once daily. Disp: 90 tablet Rfl: 3 COMPOUNDED PRESCRIPTION Please eval and fix any issues with walker.Dx: I50.33, I25.10, E66.01, M54.42, M25.551 Disp: 1 Device Rfl: 0 bisacodyl (DULCOLAX) 10 mg supp 1 Suppository by RECTAL route once daily as needed (for constipation). Disp: Rfl: 0 aspirin, enteric coated (ADULT LOW DOSE ASPIRIN) 81 mg EC tablet Take 1 tablet by mouth once daily. Disp: 90 tablet Rfl: 3 COMPOUNDED PRESCRIPTION Glucometer high/low test solution for accucheck. DX: DM Disp: 1 Bottle Rfl: 3 COMPOUNDED PRESCRIPTION Please perform a nocturnal oximetry on room air on BiPAP. Diagnosis: HypoxiaPlease fax results to [phone] Attn: Glendy Disp: 1 Each Rfl: 0 Lancets (ACCU-CHEK FASTCLIX) lancets Test glucose twice weekly. Dx: 250.00. Insulin Use: no Disp: 100 Each Rfl: 11 blood sugar diagnostic test strip testing twice weekly dx 250.00 insulin no Disp: 50 Strip Rfl: 12 Blood-Glucose Meter, Drum-type (ACCU-CHEK COMPACT PLUS CARE) kit Test fasting blood sugar 1-2 times a week and 2 hrs post meal 1- 2 times a week. Disp: 1 Kit Rfl: 0 Blood-Glucose Meter (ONETOUCH ULTRA 2) monitoring kit 1 Each as needed. One Touch Meter Kit Diagnosis: Diabetes Mellitus Disp: 1 Each Rfl: 0 Blood Glucose Control, Normal (OT ULTRA/FASTTRACK CONTROL) soln Test controls as needed. Disp: 1 Each Rfl: 3 COMPOUNDED PRESCRIPTION BIPAP setting: IPAP 22cm water with heated humidification EPAP setting of 16cm with supplemental oxygen bleed in at 2lt per minute. Mask (per patient preference) and supplies for lifetime. Please add chin strap DX EDMOND 327.23 Disp: 1 Act Rfl: 99 No current facility-administered medications for this visit. (currently taking) Anthropometrics: Height: Last 1 Encounter Ht Readings: Date: Ht: 06/20/2018 182.9 cm (6') Current weight: Last 1 Encounter Wt Readings: Date: Wt: 06/20/2018 153.3 kg (338 lb) Body mass index is 45.84 kg/m?. Resting Metabolic Rate: 2305 NUTRITION ASSESSMENT: Malnutrition Screening Significant unintentional weight loss? No Eating less than 75% of usual intake for more than 2 weeks? No RECOMMENDED MALNUTRITION DIAGNOSIS: NO MALNUTRITION IDENTIFIED Educational materials provided: none this visit READINESS TO LEARN Cognitive ability: Alert and oriented Motivation to learn: Interested Family support: Unable to assess - Family not present Instruction provided to: Patient Patient learns best by: Individual Instruction Factors affecting learning: None Physical limitations affecting learning: None Likelihood of Adherence: Moderate Patient presents for follow up MNT as relates to diabetes and for weightloss. Continues to make best choices possible, exercise has decreased. Note weight increased 5 pounds from last visit. Had success with losing from 359 at [place] point but has been depressed, high stress lately and on upward trend since February. Apartment mates negative. Nutrition Diagnosis: Overweight Obesity, related to; excess energy intake and physical inactivity, as evidenced by BMI above normative standard for age and gender. Nutrition Intervention 06/20/2018: modify type and amount of food or beverage 1. Find positive outlet, social options ([place]) 2. Increase exercise to 35 minutes 3. Continue smaller portions, best options. 4. Stop eating when comfortable not full, smaller portions, limit desserts to one time per week Nutrition Monitoring AND Evaluation: weight loss Criteria: patient update Need for Follow up: 6-8 weeks Referred/Supervised by: Amairani MNT Billing Type: Re-assess/15 min 2 units SIGNATURE: Rebecca Sanders MS RD LD PATIENT NAME: Mayco Kendrick DATE: June 20, 2018 TIME: 1:41 PM NURSING PROG Observed: 06/17/2018 Status: COMPLETED Source: [place] 2:27 PM [facility] REPOSITORY HNO ID: [id number] Author: Vanda (Rn) TALA Alba Service: (none) Author Type: Registered Nurse Type: Nursing Progress Note Filed: 06/20/2018 9:44 AM Note Text: PACC Nurse Progress Note History AND Physical: PACC Visit Date: N/A Original HANDP Date: 05/31 ED visit Date: N/A Outside HANDP Scanned Date: N/A Labs Within Last 6 Months: BMP/CMP: Date 05/25 HBA1C: Date 05/25 available in epic Imaging Within Last 12 Months: N/A Cardiac Testing: EKG in last 12 Months: Yes: Date: 11/19/17, Comment: in epic Stress Test Date: 11/20/17 , Comment: in [facility] Device:Pacemaker Device Type: medtronic Interrogation Date: 04/27/18, Comment: external in epic Last Menstrual Period: LMP Date: N/A Postmenopausal >1yr: N/A, S/P Hysterectomy: N/A BMI Percentile (PEDS): N/A Risk Assessment: Cardiac Date: Dr Roblero in telephone encounter dated 06/08 Anesthesia Review: Sent for review of BMI and pacemaker Narrative: N/A Pre-op Considerations: ASHD DM CHF Chart Check: IN PROGRESS - anesthesia review Rachana Lowry RN June 17, 2018 2:27 PM Addendum: 06/20/18 9:40a.m. I called Dr. Saleem's office and spoke to Laura -relayed message that after Dr. Portillo(anesthesia) reviewed chart pt. and stated pt. is not a candidate for the ASC(will be using cautery and has a pacemaker). TALA Gasca 3pm Pre op instructions given verbally and faxed to Bee at [facility]. PATIENT PREOPERATIVE INSTRUCTIONS No ref. provider found has scheduled you for your procedure at this surgery center: [place] [facility]: [phone] --[id number] [id number]. Please read below carefully for your personalized instructions. Blood Thinning Medications: - Stop NSAIDS (Ibuprofen, Advil, Aleve, Motrin, Celebrex, Mobic, etc.) 7 days before surgery, as directed by your surgeon. - Stop Aspirin 5 days before surgery, as directed by your surgeon. - Stop Vitamin E, ALL multi-vitamins, herbals and dietary supplements 7 days before surgery. Dietary Restrictions: - Nothing to eat or drink after midnight except for a sip of water with approved medications. - Do not drink any alcohol after midnight the night before your surgery. Pain Medications: Medications: Approved medications to take the morning of surgery with a sip of water: metoprolol - No diabetic medication the morning of surgery. If you start any new medications after today's visit, please contact the surgeon's office. Important Reminders: - Candy, mints, gum and tobacco products are NOT permitted the morning of surgery. - Hearing aids, dentures and glasses may be worn the morning of surgery. - NO jewelry, body piercings, makeup, hairpins or contacts are to be worn the day of surgery. shower with antibacterial soap If you develop symptoms such as a fever, cold, or flu, or have other changes to your health within TWO DAYS of scheduled surgery or the morning of surgery, please contact the surgery center above. Personal Belongings: - Leave ALL valuables and money at home or with family members. For Outpatient Procedures: - YOU MUST HAVE A RESPONSIBLE SPECIAL EDUCATION MATH TEACHER TAKE YOU HOME. A CARDROOM WORKER OR RESTAURANT EXPEDITOR CANNOT BE MADE A RESPONSIBLE SPECIAL EDUCATION MATH TEACHER. - We recommend that a responsible person stays with you overnight to take care of you. - You cannot stay in a hotel alone after outpatient surgery. You will not be permitted to have your surgery, if you do not have someone to take care of you. Arrival Time for Surgery: - The Surgery Center or hospital where you are having surgery will call the afternoon before surgery (or Wednesday for Wednesday surgery) with a scheduled arrival time. - If you have not heard by 4 pm, please contact the surgery center above. Please be aware that emergency situations arise, which may delay or change your surgical time. If this happens, we will notify you as soon as possible and regret any inconvenience. Rachana Lowry RN PROGRESS Observed: 06/09/2018 Status: COMPLETED Source: [place] 11:28 AM [facility] REPOSITORY O ID: [id number] Author: Martínez Holloway (Pa) Service: (none) Author Type: Physician Budget Officer Type: Progress Notes Filed: 06/09/2018 2:26 PM Note Text: [facility] CC: Prostate Cancer Follow-up HPI: This is a 77 year old male, with a Hx of Adenocarcinoma of Prostate who is s/p Radiation therapy 2009 pathology reported below LAB: PSA (ng/mL) Date Value 03/18/2017 <0.03 12/26/2015 <0.03 01/30/2015 <0.03 02/01/2014 <0.03 PSA. (no units) Date Value 05/25/2018 <0.10 ALLERGY ALLERGIES Allergen Reactions - Lisinopril Other: See Comments Metallic taste in mouth. - Sertraline GI Upset MEDICATIONS: polyethylene glycol 3350 (MIRALAX, GLYCOLAX) 17 gram/dose powder Take 17 g by mouth once daily. Take one (1) capful in 8oz of liquid each day. COMPOUNDED PRESCRIPTION 2 oz prune juice, before bed, as needed for constipation. Ranitidine HCl 300 mg tablet 1 TABLET BY MOUTH WITH DINNER DX:GERD / NURSE TO REORDER furosemide (LASIX) 40 mg tablet Take 1 tablet by mouth once daily. docusate sodium (DOC-Q-LACE) 100 mg capsule Take 1 capsule by mouth twice daily as needed. aluminum AND magnesium hydroxide-simethicone (MAALOX PLUS EXTRA STRENGTH) 400-400-40 mg/5 mL suspension Take 20 mL by mouth every 6 hours as needed (upset stomach). pantoprazole DR (PROTONIX) 40 mg tablet Take 1 tablet by mouth daily before breakfast. Take on empty stomach, 1/2 hr before meal. Per Gastroenterology traZODone (DESYREL) 50 mg tablet Take 1 tablet by mouth at bedtime as needed (sedation). guaiFENesin (SILTUSSIN SA) 100 mg/5 mL syrup Take 10 mL by mouth three times daily as needed. triamcinolone acetonide (KENALOG) 0.1 % cream Apply to itching rash on chest twice daily ONLY when needed; may keep in room COMPOUNDED PRESCRIPTION Rollator, # one Dx: I50.33, I25.700, I48.0, J45.20, E66.01, M54.42, M25.551, Z91.81 ammonium lactate (LAC-HYDRIN) 12 % cream Apply 1 application to affected area twice daily as needed. furosemide (LASIX) 80 mg tablet One PO daily in AM oxybutynin (DITROPAN) 5 mg tablet Take 1 tablet by mouth three times daily. glimepiride (AMARYL) 1 mg tablet Take 1 tablet by mouth daily with breakfast. metoprolol tartrate, short acting, (LOPRESSOR) 25 mg tablet Take 1 tablet by mouth every 12 hours. ketoconazole (NIZORAL) 2 % shampoo Use as a body wash, most specifically the chest, daily for itching and flaking; may keep in own shower atorvastatin (LIPITOR) 80 mg tablet Take 1 tablet by mouth once daily. tamsulosin ER (FLOMAX) 0.4 mg cp24 Take 1 capsule by mouth every evening. for prostate metFORMIN (GLUCOPHAGE) 500 mg tablet Take 1 tablet by mouth three times daily with meals. nitroglycerin sublingual (NITROSTAT) 0.4 mg SL tablet Take 1 tablet by mouth as needed. for chest pain; dissolve on tongue. If no pain relief call 911. magnesium oxide (MAG-OX) 400 mg tablet Take 1 tablet by mouth once daily. COMPOUNDED PRESCRIPTION Please eval and fix any issues with walker.Dx: I50.33, I25.10, E66.01, M54.42, M25.551 bisacodyl (DULCOLAX) 10 mg supp 1 Suppository by RECTAL route once daily as needed (for constipation). aspirin, enteric coated (ADULT LOW DOSE ASPIRIN) 81 mg EC tablet Take 1 tablet by mouth once daily. COMPOUNDED PRESCRIPTION Glucometer high/low test solution for accucheck. DX: DM COMPOUNDED PRESCRIPTION Please perform a nocturnal oximetry on room air on BiPAP. Diagnosis: HypoxiaPlease fax results to [phone] Attn: Glendy Lancets (ACCU-CHEK FASTCLIX) lancets Test glucose twice weekly. Dx: 250.00. Insulin Use: no blood sugar diagnostic test strip testing twice weekly dx 250.00 insulin no Blood-Glucose Meter, Drum-type (ACCU-CHEK COMPACT PLUS CARE) kit Test fasting blood sugar 1-2 times a week and 2 hrs post meal 1- 2 times a week. Blood-Glucose Meter (ONETOUCH ULTRA 2) monitoring kit 1 Each as needed. One Touch Meter Kit Diagnosis: Diabetes Mellitus Blood Glucose Control, Normal (OT ULTRA/FASTTRACK CONTROL) soln Test controls as needed. COMPOUNDED PRESCRIPTION BIPAP setting: IPAP 22cm water with heated humidification EPAP setting of 16cm with supplemental oxygen bleed in at 2lt per minute. Mask (per patient preference) and supplies for lifetime. Please add chin strap DX EDMOND 327.23 HISTORIES: FAMILY HISTORY Problem Relation Age of Onset - Heart Father - Cancer Mother Lung - Heart Paternal Grandfather - Heart Brother PAST MEDICAL HISTORY Diagnosis Date - Abdominal pain 08/11/2014 w some distention. Appears chronic -abdominal ultrasound - ACUTE GASTRITIS W/O HEMORRHAGE 12/21/2006 - Acute on chronic diastolic CHF (congestive heart failure), NYHA class 4 (HCC) 03/08/2014 H/o HFpEF with diastolic dysfunction, ICM 55% EF Presents with CP and SOB Weight gain 30lbs in last 3 months Currently SOB and volume overload, in setting of unstable angina (killip 3) Plan Continue Diuresis As above for possible restrictive CM - ALLERGIC RHINITIS NOS 05/03/2006 - Asthma - ASTHMA UNSPECIFIED - Benign neoplasm of colon - Benign neoplasm of rectum and anal canal - Bilateral leg edema 11/05/2008 - Bradycardia 08/11/2014 Patient with sinus bradycardia with Type 1 Mobitz since 2011 however Pulse dropping to high 30s with dizziness Plan: Place on tele for monitoring EP evaluation for ? Pacemaker with new onset of symptoms 2/2 to relative hypotension vs bradycardia Daily EKGs to evaluate rhythm, still appears to be Mobitz type 1 Keep K and Mag above 4 and 2 respectively - Carpal tunnel syndrome 03/28/2010 - Chest pain 07/26/2014 73 year old male transferred from OSH for Unstable angina, chest pain on a Nitro and heparin Drip. First set of enzymes was negative. No ST-T wave chanes on EKG Mobitz type 1 AV block (chronic) ALVERTO score 5 With associated SOB and Pulmonary edema on CXR (Killip class 3) Found not to have acute plaque rupture ?Restrictive cardiomyopathy Will need LHC (LVEDP) and RHC tomorrow - per Dr. Pepe would like Dr. Randall PLAN NPO at midnight Call Cath Charge in AM to confirm schedule and attending Continue diuresis Additionally: - ASA - Stop plavix - reduce Atorvastatin to 20mg (home dose, last LDL ~55) - Losartan - Chest pain with painful respiration 08/11/2014 Chest heaviness. Unstable angina ? 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 Resume as the bp normalizes. 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 Say Pulmonary 06/2017 and said he would be very high risk for a Bronch due to obesity and known diastolic LV dysfunction. Patient has been back on Xarelto since early November per [facility]. - Hip fracture, right ([facility]) 09/22/2012 Treated medically - History of prostatitis 04/11/2013 - Hyperlipidemia - Hypertension - Hypertrophy of nasal turbinates 07/06/2012 consult with Bianka ENT 06/29/2012 Plan to schedule ablation of inferior turbinates @ [facility]. - Insomnia, unspecified 06/17/2011 OARRS report reviewed October 22, 2011 Matt Taylor MD - Leg swelling - Lumbago 05/11/2007 - MALIGN NEOPL PROSTATE - Memory changes 01/26/2018 Saw psych 04/15/2018 and felt to be normal age related changes. - Mobitz (type) I (Wenckebach's) atrioventricular block 07/26/[address] Eric Go in 2012. Chronic conduction abnormality. does not need a pacemaker. Here with concern for ACS EKG: mobitz type 1, unchanged from prior, no ST-T wave changes BP stable Plan: Monitor Avoiding BB - Morbid obesity 06/02/2011 07/08/2017: H: 72 in, W: 358 lb, BMI 48.54. 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 Alcohol use: Yes 31.5 oz/week Cans of Beer (12oz): 7, Mixed Drinks: 14 per week Comment: 2/beer/mixed drink daily-states no ETOH since 09/2017 Drug use: No Sexual activity: No Social History Narrative OARRS report reviewed October 22, 2011 Matt Taylor MD REVIEW OF SYSTEMS: General:SEE HPI, No weight loss, malaise or fevers. Genitourinary: No history of dysuria, frequency or incontinence The remainder of the ROS was negative. PHYSICAL EXAMINATION: Blood pressure 124/56, pulse 70, weight (!) 153.8 kg (339 lb). General appearance: Well appearing, alert, in no acute distress, well-hydrated, well nourished IMPRESSION AND PLAN: > Adenocarcinoma0 of Prostate - s/p XRT 2009 > PSA - <0.03 > No LUTS > 1 year Appt nayan/ KAY Wheeler MT, PA-C + PSA Lab prior to visit KAY Renteria MT, PA-C CNOV Observed: 06/09/2018 Status: COMPLETED Source: [place] 11:00 AM [facility] REPOSITORY Office Visit (UROLWS) MAYCO ([id number]) 1940 M NFR Date Time Provider Department 06/09/18 11:00 AM MARTÍNEZ HOLLOWAY) UROLWS During your visit today, we recorded the following information about you: Pulse Blood pressure Weight 70/minute 124/56 153.8 kg RETA Chacon 06/09/2018 2:26 PM Signed [facility] CC: Prostate Cancer Follow-up HPI: This is a 77 year old male, with a Hx of Adenocarcinoma of Prostate who is s/p Radiation therapy 2009 pathology reported below LAB: PSA (ng/mL) Date Value 03/18/2017 <0.03 12/26/2015 <0.03 01/30/2015 <0.03 02/01/2014 <0.03 PSA. (no units) Date Value 05/25/2018 <0.10 ALLERGY ALLERGIES Allergen Reactions - Lisinopril Other: See Comments Metallic taste in mouth. - Sertraline GI Upset MEDICATIONS: polyethylene glycol 3350 (MIRALAX, GLYCOLAX) 17 gram/dose powder Take 17 g by mouth once daily. Take one (1) capful in 8oz of liquid each day. COMPOUNDED PRESCRIPTION 2 oz prune juice, before bed, as needed for constipation. Ranitidine HCl 300 mg tablet 1 TABLET BY MOUTH WITH DINNER DX:GERD / NURSE TO REORDER furosemide (LASIX) 40 mg tablet Take 1 tablet by mouth once daily. docusate sodium (DOC-Q-LACE) 100 mg capsule Take 1 capsule by mouth twice daily as needed. aluminum AND magnesium hydroxide-simethicone (MAALOX PLUS EXTRA STRENGTH) 400-400-40 mg/5 mL suspension Take 20 mL by mouth every 6 hours as needed (upset stomach). pantoprazole DR (PROTONIX) 40 mg tablet Take 1 tablet by mouth daily before breakfast. Take on empty stomach, 1/2 hr before meal. Per Gastroenterology traZODone (DESYREL) 50 mg tablet Take 1 tablet by mouth at bedtime as needed (sedation). guaiFENesin (SILTUSSIN SA) 100 mg/5 mL syrup Take 10 mL by mouth three times daily as needed. triamcinolone acetonide (KENALOG) 0.1 % cream Apply to itching rash on chest twice daily ONLY when needed; may keep in room COMPOUNDED PRESCRIPTION Rollator, # one Dx: I50.33, I25.700, I48.0, J45.20, E66.01, M54.42, M25.551, Z91.81 ammonium lactate (LAC-HYDRIN) 12 % cream Apply 1 application to affected area twice daily as needed. furosemide (LASIX) 80 mg tablet One PO daily in AM oxybutynin (DITROPAN) 5 mg tablet Take 1 tablet by mouth three times daily. glimepiride (AMARYL) 1 mg tablet Take 1 tablet by mouth daily with breakfast. metoprolol tartrate, short acting, (LOPRESSOR) 25 mg tablet Take 1 tablet by mouth every 12 hours. ketoconazole (NIZORAL) 2 % shampoo Use as a body wash, most specifically the chest, daily for itching and flaking; may keep in own shower atorvastatin (LIPITOR) 80 mg tablet Take 1 tablet by mouth once daily. tamsulosin ER (FLOMAX) 0.4 mg cp24 Take 1 capsule by mouth every evening. for prostate metFORMIN (GLUCOPHAGE) 500 mg tablet Take 1 tablet by mouth three times daily with meals. nitroglycerin sublingual (NITROSTAT) 0.4 mg SL tablet Take 1 tablet by mouth as needed. for chest pain; dissolve on tongue. If no pain relief call 911. magnesium oxide (MAG-OX) 400 mg tablet Take 1 tablet by mouth once daily. COMPOUNDED PRESCRIPTION Please eval and fix any issues with walker.Dx: I50.33, I25.10, E66.01, M54.42, M25.551 bisacodyl (DULCOLAX) 10 mg supp 1 Suppository by RECTAL route once daily as needed (for constipation). aspirin, enteric coated (ADULT LOW DOSE ASPIRIN) 81 mg EC tablet Take 1 tablet by mouth once daily. COMPOUNDED PRESCRIPTION Glucometer high/low test solution for accucheck. DX: DM COMPOUNDED PRESCRIPTION Please perform a nocturnal oximetry on room air on BiPAP. Diagnosis: HypoxiaPlease fax results to [phone] Attn: Glendy Lancets (ACCU-CHEK FASTCLIX) lancets Test glucose twice weekly. Dx: 250.00. Insulin Use: no blood sugar diagnostic test strip testing twice weekly dx 250.00 insulin no Blood-Glucose Meter, Drum-type (ACCU-CHEK COMPACT PLUS CARE) kit Test fasting blood sugar 1-2 times a week and 2 hrs post meal 1-2 times a week. Blood-Glucose Meter (ONETOUCH ULTRA 2) monitoring kit 1 Each as needed. One Touch Meter Kit Diagnosis: Diabetes Mellitus Blood Glucose Control, Normal (OT ULTRA/FASTTRACK CONTROL) soln Test controls as needed. COMPOUNDED PRESCRIPTION BIPAP setting: IPAP 22cm water with heated humidification EPAP setting of 16cm with supplemental oxygen bleed in at 2lt per minute. Mask (per patient preference) and supplies for lifetime. Please add chin strap DX EDMOND 327.23 HISTORIES: FAMILY HISTORY Problem Relation Age of Onset - Heart Father - Cancer Mother Lung - Heart Paternal Grandfather - Heart Brother PAST MEDICAL HISTORY Diagnosis Date - Abdominal pain 08/11/2014 w some distention. Appears chronic -abdominal ultrasound - ACUTE GASTRITIS W/O HEMORRHAGE 12/21/2006 - Acute on chronic diastolic CHF (congestive heart failure), NYHA class 4 ([facility]) 03/08/2014 H/o HFpEF with diastolic dysfunction, ICM 55% EF Presents with CP and SOB Weight gain 30lbs in last 3 months Currently SOB and volume overload, in setting of unstable angina (killip 3) Plan Continue Diuresis As above for possible restrictive CM - ALLERGIC RHINITIS NOS 05/03/2006 - Asthma - ASTHMA UNSPECIFIED - Benign neoplasm of colon - Benign neoplasm of rectum and anal canal - Bilateral leg edema 11/05/2008 - Bradycardia 08/11/2014 Patient with sinus bradycardia with Type 1 Mobitz since 2011 however Pulse dropping to high 30s with dizziness Plan: Place on tele for monitoring EP evaluation for ? Pacemaker with new onset of symptoms 2/2 to relative hypotension vs bradycardia Daily EKGs to evaluate rhythm, still appears to be Mobitz type 1 Keep K and Mag above 4 and 2 respectively - Carpal tunnel syndrome 03/28/2010 - Chest pain 07/26/2014 73 year old male transferred from OSH for Unstable angina, chest pain on a Nitro and heparin Drip. First set of enzymes was negative. No ST-T wave chanes on EKG Mobitz type 1 AV block (chronic) ALVERTO score 5 With associated SOB and Pulmonary edema on CXR (Killip class 3) Found not to have acute plaque rupture ?Restrictive cardiomyopathy Will need LHC (LVEDP) and RHC tomorrow - per Dr. Pepe would like Dr. Randall PLAN NPO at midnight Call Cath Charge in AM to confirm schedule and attending Continue diuresis Additionally: - ASA - Stop plavix - reduce Atorvastatin to 20mg (home dose, last LDL ~55) - Losartan - Chest pain with painful respiration 08/11/2014 Chest heaviness. Unstable angina ? -stat EKG -telemetry - trend Ghazala - Congestive heart failure (HCC) - Controlled type 2 diabetes mellitus with diabetic nephropathy ([facility]) 01/18/2014 - Coronary artery disease - CORONARY ATHEROSCLER UNSPEC VESSEL 05/15/2005 - Coronary atherosclerosis due to lipid rich plaque 09/25/2015 - Depression - DEPRESSIVE DISORDER NEC 02/19/2009 - Diverticulitis - Diverticulosis of colon (without mention of hemorrhage) - DM type 2 (diabetes mellitus, type 2) ([facility]) 09/05/2014 - Edema 11/05/2008 - Essential hypertension, benign 02/02/2011 Essential hypertension, benign Home meds - losartan, norvasc, isosorbide mononitrate, lasix AND torsemide PLAN -hypotensive at OSH so hold bp meds for now. Resume as the bp normalizes. 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 Say Pulmonary 06/2017 and said he would be very high risk for a Bronch due to obesity and known diastolic LV dysfunction. Patient has been back on Xarelto since early November per [facility]. - Hip fracture, right ([facility]) 09/22/2012 Treated medically - History of prostatitis 04/11/2013 - Hyperlipidemia - Hypertension - Hypertrophy of nasal turbinates 07/06/2012 consult with Bianka ENT 06/29/2012 Plan to schedule ablation of inferior turbinates @ [facility]. - Insomnia, unspecified 06/17/2011 OARRS report reviewed October 22, 2011 Matt Taylor MD - Leg swelling - Lumbago 05/11/2007 - MALIGN NEOPL PROSTATE - Memory changes 01/26/2018 Saw psych 04/15/2018 and felt to be normal age related changes. - Mobitz (type) I (Wenckebach's) atrioventricular block 07/26/[address] Eric Go in 2012. Chronic conduction abnormality. does not need a pacemaker. Here with concern for ACS EKG: mobitz type 1, unchanged from prior, no ST-T wave changes BP stable Plan: Monitor Avoiding BB - Morbid obesity 06/02/2011 07/08/2017: H: 72 in, W: 358 lb, BMI 48.54. 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 Alcohol use: Yes 31.5 oz/week Cans of Beer (12oz): 7, Mixed Drinks: 14 per week Comment: 2/beer/mixed drink daily-states no ETOH since 09/2017 Drug use: No Sexual activity: No Social History Narrative OARRS report reviewed October 22, 2011 Matt Taylor MD REVIEW OF SYSTEMS: General:SEE HPI, No weight loss, malaise or fevers. Genitourinary: No history of dysuria, frequency or incontinence The remainder of the ROS was negative. PHYSICAL EXAMINATION: Blood pressure 124/56, pulse 70, weight (!) 153.8 kg (339 lb). General appearance: Well appearing, alert, in no acute distress, well-hydrated, well nourished IMPRESSION AND PLAN: > Adenocarcinoma0 of Prostate - s/p XRT 2009 > PSA - <0.03 > No LUTS > 1 year Appt w/ B. KAY Holloway, MANNY, LORI + PSA Lab prior to visit KAY Renteria, MANNY, LORI Referring Provider: MELLY MCCLOUD(LORI) [[id number]] Allergies As of Date: 06/09/2018 Noted Allergy Reaction LISINOPRIL 05/31/2014 14 - Other: See Comments Comments: Metallic taste in mouth. SERTRALINE 05/02/2013 8 - GI Upset Date Reviewed: 06/09/2018 Reviewed by: Lala Singh LPN - Fully Assessed Reason for Visit: Prostate Cancer [590] Primary Visit Diagnosis:MALIGN NEOPL PROSTATE [C61] Order(s):UA DIP, URINE (POC) [[id number]] Order #: [id number] #:[id number] PSA/PROSTSPECAG DIAG [SQPSA] Order #: [id number] FUTURE Prescriptions as of 06/09/2018 Sig: POLYETHYLENE GLYCOL 3350 17 G* Take 17 g by mouth once daily* COMPOUNDED PRESCRIPTION 2 oz prune juice, before bed,* RANITIDINE 300 MG TABLET 1 TABLET BY MOUTH WITH DINNER* FUROSEMIDE 40 MG TABLET Take 1 tablet by mouth once d* DOCUSATE SODIUM 100 MG CAPSULE Take 1 capsule by mouth twice* ALUMINUM-MAG HYDROXIDE-SIMETH* Take 20 mL by mouth every 6 h* PANTOPRAZOLE 40 MG TABLET,DEL* Take 1 tablet by mouth daily * TRAZODONE 50 MG TABLET Take 1 tablet by mouth at bed* GUAIFENESIN 100 MG/5 ML ORAL * Take 10 mL by mouth three agnes* TRIAMCINOLONE ACETONIDE 0.1 %* Apply to itching rash on ches* COMPOUNDED PRESCRIPTION Rollator, # one Dx: I50.33, I* AMMONIUM LACTATE 12 % TOPICAL* Apply 1 application to affect* FUROSEMIDE 80 MG TABLET One PO daily in AM OXYBUTYNIN CHLORIDE 5 MG TABL* Take 1 tablet by mouth three * GLIMEPIRIDE 1 MG TABLET Take 1 tablet by mouth daily * METOPROLOL TARTRATE 25 MG TAB* Take 1 tablet by mouth every * KETOCONAZOLE 2 % SHAMPOO Use as a body wash, most spec* ATORVASTATIN 80 MG TABLET Take 1 tablet by mouth once d* TAMSULOSIN 0.4 MG CAPSULE Take 1 capsule by mouth every* METFORMIN 500 MG TABLET Take 1 tablet by mouth three * NITROGLYCERIN 0.4 MG SUBLINGU* Take 1 tablet by mouth as nee* MAGNESIUM OXIDE 400 MG (241.3* Take 1 tablet by mouth once d* COMPOUNDED PRESCRIPTION Please eval and fix any issue* BISACODYL 10 MG RECTAL SUPPOS* 1 Suppository by RECTAL route* ASPIRIN 81 MG TABLET,DELAYED * Take 1 tablet by mouth once d* COMPOUNDED PRESCRIPTION Glucometer high/low test solu* COMPOUNDED PRESCRIPTION Please perform a nocturnal ox* LANCETS Test glucose twice weekly. Dx* BLOOD SUGAR DIAGNOSTIC STRIPS testing twice weekly dx 250* BLOOD-GLUCOSE METER, DRUM-TYP* Test fasting blood sugar 1-2 * BLOOD-GLUCOSE METER KIT 1 Each as needed. One Touch M* BLOOD GLUCOSE CONTROL, NORMAL* Test controls as needed. * COMPOUNDED PRESCRIPTION BIPAP setting: IPAP 22cm wate* Problem List As Of Date 06/09/2018 Noted Resolved Mild intermittent asthma without complication [* Priority: A MALIGN NEOPL PROSTATE [C61] Priority: B More... Type II or unspecified type diabetes mellitus w* 01/18/2014 Allergic rhinitis, cause unspecified [J30.9] INVALID FOR* Priority: B More... Personal history of colonic polyps [Z86.010] Priority: C More... Lumbago [M54.5] INVALID FOR* Priority: M Bilateral leg edema [R60.0] INVALID FOR* Priority: A Carpal tunnel syndrome, bilateral [G56.03] INVALID FOR* Priority: M More... Essential hypertension, benign [I10] INVALID FOR* Priority: A More... Insomnia, unspecified [G47.00] INVALID FOR* Priority: B More... Benign neoplasm of rectum and anal canal [D12.8*INVALID FOR* Priority: C Diverticulosis of colon (without mention of hem*INVALID FOR* Priority: C Nasal turbinate hypertrophy [J34.3] INVALID FOR* Priority: C More... 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 More... More... EDMOND (obstructive sleep apnea) [G47.33] INVALID FOR* Priority: B More... Mobitz (type) I (Wenckebach's) atrioventricular*INVALID FOR* Priority: A More... More... Mixed hyperlipidemia [E78.2] INVALID FOR* Priority: A More... DVT prophylaxis [EFI7320] INVALID FOR*07/26/2014 More... More... More... More... More... More... Bradycardia [R00.1] INVALID FOR* Priority: A More... Venous stasis dermatitis of both lower extremit*INVALID FOR* Priority: B Counseling and coordination of care [Z71.89] INVALID FOR*04/12/2015 More... Hypomagnesemia [E83.42] INVALID FOR* Priority: B Diabetic eye exam (HCC) [Z01.00, E11.9] INVALID FOR* Priority: A More... Dry mouth [R68.2] INVALID FOR* Priority: B Noncompliance [Z91.19] INVALID FOR* Gastroesophageal reflux disease without esophag*INVALID FOR* Priority: A Coronary atherosclerosis due to lipid rich plaq*INVALID FOR* Priority: A Morbid obesity due to excess calories (HCC) [E6*INVALID FOR* Priority: B More... Essential tremor [G25.0] INVALID FOR* Priority: B Chronic cough [R05] INVALID FOR* Priority: B Well adult exam [Z00.00] INVALID FOR*01/07/2018 Priority: E More... Controlled type 2 diabetes mellitus with diabet*INVALID FOR* Priority: A Depression [F32.9] INVALID FOR* Priority: A Multiple open wounds of lower leg [S81.809A] INVALID FOR* Priority: D Colon cancer screening [Z12.11] INVALID FOR* Chest pain [R07.9] INVALID FOR* Priority: B More... Second degree heart block [I44.1] INVALID FOR* Priority: A More... Atherosclerosis of coronary artery bypass graft*INVALID FOR* Priority: A More... More... More... More... Hypoxia [R09.02] INVALID FOR* Chronic bilateral low back pain with left-sided*INVALID FOR* Priority: M Bilateral hip pain [M25.551, M25.552] INVALID FOR* Priority: M Paroxysmal atrial fibrillation (HCC) [I48.0] INVALID FOR* Priority: A More... 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 More... 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 More... Current use of proton pump inhibitor [Z79.899] INVALID FOR* More... More... Ulnar neuropathy at elbow of left upper extremi*INVALID FOR* Priority: M More... Hemoptysis [R04.2] INVALID FOR* Priority: A More... At high risk for falls [Z91.81] INVALID FOR* Memory changes [R41.3] INVALID FOR* Priority: B More... Closed compression fracture of L1 lumbar verteb*INVALID FOR* Priority: Mild More... Chronic constipation [K59.09] INVALID FOR* Priority: C Nasal septal deviation [J34.2] INVALID FOR* Hypertrophy of both inferior nasal turbinates [*INVALID FOR* More... Disposition: Return in about 1 year (around 06/09/2019). Follow-up and Disposition History Recorded Encounter Status:Closed by MARTÍNEZ HOLLOWAY PA-C on 06/09/18 PROGRESS Observed: 06/08/2018 Status: COMPLETED Source: [place] 6:25 PM [facility] REPOSITORY HNO ID: [id number] Author: oGgo Yeung RN Service: (none) Author Type: (none) Type: Progress Notes Filed: 06/09/2018 7:39 AM Note Text: Surgical request filed. Gogo Yeung RN June 08, 2018 6:25 PM CNOV Observed: 06/06/2018 Status: COMPLETED Source: [place] 12:00 PM [facility] [place] REPOSITORY Office Visit (OTOLST) MAYCO KENDRICK ([id number]) 1940 M [facility] Date Time Provider Department 06/06/18 12:00 PM JOAO SALEEM [place] During your visit today, we recorded the following information about you: Joao Saleem MD 06/06/2018 12:11 PM Signed History: Mayco Kendrick is seen at the request of Twan Mccloud. Mayco Kendrick, a 77 year old male, presents for evaluation of more diff breathing L than R for years. Denies runny-nose, purulent rhinorrhea, post-nasal drip, nasal crusting, nasal irritation, loss of smell, facial pressure, headaches, nosebleeds, cough, itchy-watery eyes, throat clearing. No history of allergies. No recent URI. No history of chronic sinusitis. No history of sinus/nasal surgery. No history of reflux. ROS: Consitutional: Fever: No Chills: No Weight loss: No Gastroentestinal: Dysphagia: No Odynophagia: No Respiratory: Cough: No Hemoptysis: No Shortness of breath: No Endocrine: Thyroid disease: No Allergies: No Skin disease: No Eyes: Double vision: No ENT: Voice change: No Hearing loss: No Tinnitus: No Dizziness: No Neurologic disease: No Psychiatric disease: No Otherwise as noted in History PAST MEDICAL HISTORY Diagnosis Date - Abdominal pain 08/11/2014 w some distention. Appears chronic -abdominal ultrasound - ACUTE GASTRITIS W/O HEMORRHAGE 12/21/2006 - Acute on chronic diastolic CHF (congestive heart failure), NYHA class 4 ([facility]) 03/08/2014 H/o HFpEF with diastolic dysfunction, ICM 55% EF Presents with CP and SOB Weight gain 30lbs in last 3 months Currently SOB and volume overload, in setting of unstable angina (killip 3) Plan Continue Diuresis As above for possible restrictive CM - ALLERGIC RHINITIS NOS 05/03/2006 - Asthma - ASTHMA UNSPECIFIED - Benign neoplasm of colon - Benign neoplasm of rectum and anal canal - Bilateral leg edema 11/05/2008 - Bradycardia 08/11/2014 Patient with sinus bradycardia with Type 1 Mobitz since 2011 however Pulse dropping to high 30s with dizziness Plan: Place on tele for monitoring EP evaluation for ? Pacemaker with new onset of symptoms 2/2 to relative hypotension vs bradycardia Daily EKGs to evaluate rhythm, still appears to be Mobitz type 1 Keep K and Mag above 4 and 2 respectively - Carpal tunnel syndrome 03/28/2010 - Chest pain 07/26/2014 73 year old male transferred from OSH for Unstable angina, chest pain on a Nitro and heparin Drip. First set of enzymes was negative. No ST-T wave chanes on EKG Mobitz type 1 AV block (chronic) ALVERTO score 5 With associated SOB and Pulmonary edema on CXR (Killip class 3) Found not to have acute plaque rupture ?Restrictive cardiomyopathy Will need LHC (LVEDP) and RHC tomorrow - per Dr. Pepe would like Dr. Randall PLAN NPO at midnight Call Cath Charge in AM to confirm schedule and attending Continue diuresis Additionally: - ASA - Stop plavix - reduce Atorvastatin to 20mg (home dose, last LDL ~55) - Losartan - Chest pain with painful respiration 08/11/2014 Chest heaviness. Unstable angina ? 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 Resume as the bp normalizes. 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 Say Pulmonary 06/2017 and said he would be very high risk for a Bronch due to obesity and known diastolic LV dysfunction. Patient has been back on Xarelto since early November per [facility]. - Hip fracture, right (HCC) 09/22/2012 Treated medically - History of prostatitis 04/11/2013 - Hyperlipidemia - Hypertension - Hypertrophy of nasal turbinates 07/06/2012 consult with [facility] 06/29/2012 Plan to schedule ablation of inferior turbinates @ [facility]. - Insomnia, unspecified 06/17/2011 OARRS report reviewed October 22, 2011 Matt Taylor MD - Leg swelling - Lumbago 05/11/2007 - MALIGN NEOPL PROSTATE - Memory changes 01/26/2018 Saw psych 04/15/2018 and felt to be normal age related changes. - Mobitz (type) I (Wenckebach's) atrioventricular block 07/26/[address] Eric Go in 2012. Chronic conduction abnormality. does not need a pacemaker. Here with concern for ACS EKG: mobitz type 1, unchanged from prior, no ST-T wave changes BP stable Plan: Monitor Avoiding BB - Morbid obesity 06/02/2011 07/08/2017: H: 72 in, W: 358 lb, BMI 48.54. 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 01/18/2014 - Type II or unspecified type diabetes mellitus without mention of complication, not stated as uncontrolled - Unspecified sleep apnea CPAP 18 with 1L - Urgency of urination 02/01/2014 PAST SURGICAL HISTORY Procedure Laterality Date - CABG, ARTERY-VEIN, TWO 1998 CABG, two grafts - CHOLECYSTECTOMY HX 10/14/2015 gangrenous gallbladder - COLONOSCOP W/ OR W/O [facility] SPEC 01/27/2005 Colonoscopy - COLONOSCOP W/ OR W/O [facility] SPEC 12/21/2006` repeat in -2011 - COLONOSCOP W/ OR W/O [facility] SPEC 05/18/2012 Colonoscopy repeat 5 years - COLONOSCOPY 12/29/2016 repeat 10 yrs - EGD 12/29/2016 - EGD W/O [facility] SPECIMEN W/BX 12/21/06 - EGD W/O OR W/BRUSH/WASH 01/27/2005 EGD - EGD W/O OR W/BRUSH/WASH 11/21/14 EGD - OPEN CORONARY ENDARTERECTOMY 2000 Angioplasty with stent placement - PACEMAKER 2016 - REMOVAL OF TONSILS,<12 Y/O Tonsillectomy - REPAIR RETINAL DETACH, C 10/2010 - REVISE MEDIAN N/CARPAL TUNNEL SURG Right 09/10/2017 Right CTR - REVISE MEDIAN N/CARPAL TUNNEL SURG Left 01/14/2018 Left CTR - REVISE ULNAR NERVE AT ELBOW Right 09/10/2017 Right ulnar nerve decompression - REVISE ULNAR NERVE AT ELBOW Left 01/14/2018 Left unlar nerve decompression - TOTAL HIP REPLACEMENT 2000 Hip replacement, total, right - TOTAL HIP REPLACEMENT 2001 Hip replacement, total, left Social History Marital status: Single Spouse name: Years of education: Number of children: 0 Occupational History 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 Alcohol use: Yes 31.5 oz/week Cans of Beer (12oz): 7, Mixed Drinks: 14 per week Comment: 2/beer/mixed drink daily-states no ETOH since 09/2017 Drug use: No Sexual activity: No Social History Narrative OARRS report reviewed October 22, 2011 Matt Taylor MD PE: Alert; oriented; well-developed; no apparent distress. Normal voice; normal communication. Eyes: EOMI, pupils symmetric and reactive bilaterally. Nose: patent, mild congestion, no rhinorrhea, no purulence, no crusting, septum with spur to L, mild turbinate hypertropy. Oral cavity, oropharynx: No ulcerative or mass lesions, tongue midline, palate elevates symmetrically, tongue base and floor of mouth soft. Neck: nontender, no lymphadenopathy or masses. Thyroid: no masses. Face: symmetric, sinuses nontender, skin without lesions. Salivary glands: normal size, nontender, no masses. Ears: EACs free of lesions. TMs clear and mobile. Neurologic: digital account supervisor II-XII grossly intact. SNE neg Impression: Chronic L nasal obstruction. Septal deviation to L. Discussed trial of nasal steroid vs septo/outfracture of bilateral inferior turbinates. Prefers latter. S I discussed the procedure and reviewed the risks. The risks include bleeding, infection, septal perforation, cosmetic nasal deformity, persistent obstruction, numbness/paresthesia of teeth/palate, and need for revision. The patient understands and agrees to proceed. CC: Rogers Referring Provider: MELLY MCCLOUD(LORI) [[id number]] Allergies As of Date: 06/06/2018 Noted Allergy Reaction LISINOPRIL 05/31/2014 14 - Other: See Comments Comments: Metallic taste in mouth. SERTRALINE 05/02/2013 8 - GI Upset Date Reviewed: 06/06/2018 Reviewed by: Karlee Abrams Ma - Fully Assessed Reason for Visit: Consult [502] Primary Visit Diagnosis:Nasal septal deviation [J34.2] Other Visit Diagnosis:Nasal turbinate hypertrophy [J34.3] Prescriptions as of 06/06/2018 Sig: POLYETHYLENE GLYCOL 3350 17 G* Take 17 g by mouth once daily* COMPOUNDED PRESCRIPTION 2 oz prune juice, before bed,* RANITIDINE 300 MG TABLET 1 TABLET BY MOUTH WITH DINNER* FUROSEMIDE 40 MG TABLET Take 1 tablet by mouth once d* DOCUSATE SODIUM 100 MG CAPSULE Take 1 capsule by mouth twice* ALUMINUM-MAG HYDROXIDE-SIMETH* Take 20 mL by mouth every 6 h* PANTOPRAZOLE 40 MG TABLET,DEL* Take 1 tablet by mouth daily * TRAZODONE 50 MG TABLET Take 1 tablet by mouth at bed* GUAIFENESIN 100 MG/5 ML ORAL * Take 10 mL by mouth three agnes* TRIAMCINOLONE ACETONIDE 0.1 %* Apply to itching rash on ches* COMPOUNDED PRESCRIPTION Rollator, # one Dx: I50.33, I* AMMONIUM LACTATE 12 % TOPICAL* Apply 1 application to affect* FUROSEMIDE 80 MG TABLET One PO daily in AM OXYBUTYNIN CHLORIDE 5 MG TABL* Take 1 tablet by mouth three * GLIMEPIRIDE 1 MG TABLET Take 1 tablet by mouth daily * METOPROLOL TARTRATE 25 MG TAB* Take 1 tablet by mouth every * KETOCONAZOLE 2 % SHAMPOO Use as a body wash, most spec* ATORVASTATIN 80 MG TABLET Take 1 tablet by mouth once d* TAMSULOSIN 0.4 MG CAPSULE Take 1 capsule by mouth every* METFORMIN 500 MG TABLET Take 1 tablet by mouth three * NITROGLYCERIN 0.4 MG SUBLINGU* Take 1 tablet by mouth as nee* MAGNESIUM OXIDE 400 MG (241.3* Take 1 tablet by mouth once d* COMPOUNDED PRESCRIPTION Please eval and fix any issue* BISACODYL 10 MG RECTAL SUPPOS* 1 Suppository by RECTAL route* ASPIRIN 81 MG TABLET,DELAYED * Take 1 tablet by mouth once d* COMPOUNDED PRESCRIPTION Glucometer high/low test solu* COMPOUNDED PRESCRIPTION Please perform a nocturnal ox* LANCETS Test glucose twice weekly. Dx* BLOOD SUGAR DIAGNOSTIC STRIPS testing twice weekly dx 250* BLOOD-GLUCOSE METER, DRUM-TYP* Test fasting blood sugar 1-2 * BLOOD-GLUCOSE METER KIT 1 Each as needed. One Touch M* BLOOD GLUCOSE CONTROL, NORMAL* Test controls as needed. * COMPOUNDED PRESCRIPTION BIPAP setting: IPAP 22cm wate* Problem List As Of Date 06/06/2018 Noted Resolved Mild intermittent asthma without complication [* Priority: A MALIGN NEOPL PROSTATE [C61] Priority: B More... Type II or unspecified type diabetes mellitus w* 01/18/2014 Allergic rhinitis, cause unspecified [J30.9] INVALID FOR* Priority: B More... Personal history of colonic polyps [Z86.010] Priority: C More... Lumbago [M54.5] INVALID FOR* Priority: M Bilateral leg edema [R60.0] INVALID FOR* Priority: A Carpal tunnel syndrome, bilateral [G56.03] INVALID FOR* Priority: M More... Essential hypertension, benign [I10] INVALID FOR* Priority: A More... Insomnia, unspecified [G47.00] INVALID FOR* Priority: B More... Benign neoplasm of rectum and anal canal [D12.8*INVALID FOR* Priority: C Diverticulosis of colon (without mention of hem*INVALID FOR* Priority: C Nasal turbinate hypertrophy [J34.3] INVALID FOR* Priority: C More... 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 More... More... EDMOND (obstructive sleep apnea) [G47.33] INVALID FOR* Priority: B More... Mobitz (type) I (Wenckebach's) atrioventricular*INVALID FOR* Priority: A More... More... Mixed hyperlipidemia [E78.2] INVALID FOR* Priority: A More... DVT prophylaxis [EUW6244] INVALID FOR*07/26/2014 More... More... More... More... More... More... Bradycardia [R00.1] INVALID FOR* Priority: A More... Venous stasis dermatitis of both lower extremit*INVALID FOR* Priority: B Counseling and coordination of care [Z71.89] INVALID FOR*04/12/2015 More... Hypomagnesemia [E83.42] INVALID FOR* Priority: B Diabetic eye exam (HCC) [Z01.00, E11.9] INVALID FOR* Priority: A More... Dry mouth [R68.2] INVALID FOR* Priority: B Noncompliance [Z91.19] INVALID FOR* Gastroesophageal reflux disease without esophag*INVALID FOR* Priority: A Coronary atherosclerosis due to lipid rich plaq*INVALID FOR* Priority: A Morbid obesity due to excess calories (HCC) [E6*INVALID FOR* Priority: B More... Essential tremor [G25.0] INVALID FOR* Priority: B Chronic cough [R05] INVALID FOR* Priority: B Well adult exam [Z00.00] INVALID FOR*01/07/2018 Priority: E More... Controlled type 2 diabetes mellitus with diabet*INVALID FOR* Priority: A Depression [F32.9] INVALID FOR* Priority: A Multiple open wounds of lower leg [S81.809A] INVALID FOR* Priority: D Colon cancer screening [Z12.11] INVALID FOR* Chest pain [R07.9] INVALID FOR* Priority: B More... Second degree heart block [I44.1] INVALID FOR* Priority: A More... Atherosclerosis of coronary artery bypass graft*INVALID FOR* Priority: A More... More... More... More... Hypoxia [R09.02] INVALID FOR* Chronic bilateral low back pain with left-sided*INVALID FOR* Priority: M Bilateral hip pain [M25.551, M25.552] INVALID FOR* Priority: M Paroxysmal atrial fibrillation (HCC) [I48.0] INVALID FOR* Priority: A More... 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 More... 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 More... Current use of proton pump inhibitor [Z79.899] INVALID FOR* More... More... Ulnar neuropathy at elbow of left upper extremi*INVALID FOR* Priority: M More... Hemoptysis [R04.2] INVALID FOR* Priority: A More... At high risk for falls [Z91.81] INVALID FOR* Memory changes [R41.3] INVALID FOR* Priority: B More... Closed compression fracture of L1 lumbar verteb*INVALID FOR* Priority: Mild More... Chronic constipation [K59.09] INVALID FOR* Priority: C Nasal septal deviation [J34.2] INVALID FOR* Follow-up and Disposition History Recorded Encounter Status:Closed by JOAO SALEEM MD on 06/06/18 PROGRESS Observed: 06/06/2018 Status: COMPLETED Source: [place] 11:46 AM [facility] REPOSITORY HNO ID: [id number] Author: Joao Saleem Service: (none) Author Type: Physician Type: Progress Notes Filed: 06/06/2018 12:11 PM Note Text: History: Mayco Kendrick is seen at the request of Twan Mccloud. Mayco Kendrick, a 77 year old male, presents for evaluation of more diff breathing L than R for years. Denies runny-nose, purulent rhinorrhea, post-nasal drip, nasal crusting, nasal irritation, loss of smell, facial pressure, headaches, nosebleeds, cough, itchy-watery eyes, throat clearing. No history of allergies. No recent URI. No history of chronic sinusitis. No history of sinus/nasal surgery. No history of reflux. ROS: Consitutional: Fever: No Chills: No Weight loss: No Gastroentestinal: Dysphagia: No Odynophagia: No Respiratory: Cough: No Hemoptysis: No Shortness of breath: No Endocrine: Thyroid disease: No Allergies: No Skin disease: No Eyes: Double vision: No ENT: Voice change: No Hearing loss: No Tinnitus: No Dizziness: No Neurologic disease: No Psychiatric disease: No Otherwise as noted in History PAST MEDICAL HISTORY Diagnosis Date - Abdominal pain 08/11/2014 w some distention. Appears chronic -abdominal ultrasound - ACUTE GASTRITIS W/O HEMORRHAGE 12/21/2006 - Acute on chronic diastolic CHF (congestive heart failure), NYHA class 4 (HCC) 03/08/2014 H/o HFpEF with diastolic dysfunction, ICM 55% EF Presents with CP and SOB Weight gain 30lbs in last 3 months Currently SOB and volume overload, in setting of unstable angina (killip 3) Plan Continue Diuresis As above for possible restrictive CM - ALLERGIC RHINITIS NOS 05/03/2006 - Asthma - ASTHMA UNSPECIFIED - Benign neoplasm of colon - Benign neoplasm of rectum and anal canal - Bilateral leg edema 11/05/2008 - Bradycardia 08/11/2014 Patient with sinus bradycardia with Type 1 Mobitz since 2011 however Pulse dropping to high 30s with dizziness Plan: Place on tele for monitoring EP evaluation for ? Pacemaker with new onset of symptoms 2/2 to relative hypotension vs bradycardia Daily EKGs to evaluate rhythm, still appears to be Mobitz type 1 Keep K and Mag above 4 and 2 respectively - Carpal tunnel syndrome 03/28/2010 - Chest pain 07/26/2014 73 year old male transferred from OSH for Unstable angina, chest pain on a Nitro and heparin Drip. First set of enzymes was negative. No ST-T wave chanes on EKG Mobitz type 1 AV block (chronic) ALVERTO score 5 With associated SOB and Pulmonary edema on CXR (Killip class 3) Found not to have acute plaque rupture ?Restrictive cardiomyopathy Will need LHC (LVEDP) and RHC tomorrow - per Dr. Pepe would like Dr. Randall PLAN NPO at midnight Call Cath Charge in AM to confirm schedule and attending Continue diuresis Additionally: - ASA - Stop plavix - reduce Atorvastatin to 20mg (home dose, last LDL ~55) - Losartan - Chest pain with painful respiration 08/11/2014 Chest heaviness. Unstable angina ? -stat EKG -telemetry - trend Ghazala - Congestive heart failure (HCC) - Controlled type 2 diabetes mellitus with diabetic nephropathy ([facility]) 01/18/2014 - Coronary artery disease - CORONARY ATHEROSCLER UNSPEC VESSEL 05/15/2005 - Coronary atherosclerosis due to lipid rich plaque 09/25/2015 - Depression - DEPRESSIVE DISORDER NEC 02/19/2009 - Diverticulitis - Diverticulosis of colon (without mention of hemorrhage) - DM type 2 (diabetes mellitus, type 2) ([facility]) 09/05/2014 - Edema 11/05/2008 - Essential hypertension, benign 02/02/2011 Essential hypertension, benign Home meds - losartan, norvasc, isosorbide mononitrate, lasix AND torsemide PLAN -hypotensive at OSH so hold bp meds for now. Resume as the bp normalizes. 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 Say Pulmonary 06/2017 and said he would be very high risk for a Bronch due to obesity and known diastolic LV dysfunction. Patient has been back on Xarelto since early November per [facility]. - Hip fracture, right ([facility]) 09/22/2012 Treated medically - History of prostatitis 04/11/2013 - Hyperlipidemia - Hypertension - Hypertrophy of nasal turbinates 07/06/2012 consult with [facility] 06/29/2012 Plan to schedule ablation of inferior turbinates @ [facility]. - Insomnia, unspecified 06/17/2011 OARRS report reviewed October 22, 2011 Matt Taylor MD - Leg swelling - Lumbago 05/11/2007 - MALIGN NEOPL PROSTATE - Memory changes 01/26/2018 Saw psych 04/15/2018 and felt to be normal age related changes. - Mobitz (type) I (Wenckebach's) atrioventricular block 07/26/[address] Eric Go in 2012. Chronic conduction abnormality. does not need a pacemaker. Here with concern for ACS EKG: mobitz type 1, unchanged from prior, no ST-T wave changes BP stable Plan: Monitor Avoiding BB - Morbid obesity 06/02/2011 07/08/2017: H: 72 in, W: 358 lb, BMI 48.54. 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 01/18/2014 - Type II or unspecified type diabetes mellitus without mention of complication, not stated as uncontrolled - Unspecified sleep apnea CPAP 18 with 1L - Urgency of urination 02/01/2014 PAST SURGICAL HISTORY Procedure Laterality Date - CABG, ARTERY-VEIN, TWO 1998 CABG, two grafts - CHOLECYSTECTOMY HX 10/14/2015 gangrenous gallbladder - COLONOSCOP W/ OR W/O [facility] SPEC 01/27/2005 Colonoscopy - COLONOSCOP W/ OR W/O [facility] SPEC 12/21/2006` repeat in -2011 - COLONOSCOP W/ OR W/O [facility] SPEC 05/18/2012 Colonoscopy repeat 5 years - COLONOSCOPY 12/29/2016 repeat 10 yrs - EGD 12/29/2016 - EGD W/O [facility] SPECIMEN W/BX 12/21/06 - EGD W/O OR W/BRUSH/WASH 01/27/2005 EGD - EGD W/O OR W/BRUSH/WASH 11/21/14 EGD - OPEN CORONARY ENDARTERECTOMY 1999 Angioplasty with stent placement - PACEMAKER 2016 - REMOVAL OF TONSILS,<12 Y/O Tonsillectomy - REPAIR RETINAL DETACH, C 10/2010 - REVISE MEDIAN N/CARPAL TUNNEL SURG Right 09/10/2017 Right CTR - REVISE MEDIAN N/CARPAL TUNNEL SURG Left 01/14/2018 Left CTR - REVISE ULNAR NERVE AT ELBOW Right 09/10/2017 Right ulnar nerve decompression - REVISE ULNAR NERVE AT ELBOW Left 01/14/2018 Left unlar nerve decompression - TOTAL HIP REPLACEMENT 2000 Hip replacement, total, right - TOTAL HIP REPLACEMENT 2002 Hip replacement, total, left Social History Marital status: Single Spouse name: Years of education: Number of children: 0 Occupational History 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 Alcohol use: Yes 31.5 oz/week Cans of Beer (12oz): 7, Mixed Drinks: 14 per week Comment: 2/beer/mixed drink daily-states no ETOH since 09/2017 Drug use: No Sexual activity: No Social History Narrative OARRS report reviewed October 22, 2011 Matt Taylor MD PE: Alert; oriented; well-developed; no apparent distress. Normal voice; normal communication. Eyes: EOMI, pupils symmetric and reactive bilaterally. Nose: patent, mild congestion, no rhinorrhea, no purulence, no crusting, septum with spur to L, mild turbinate hypertropy. Oral cavity, oropharynx: No ulcerative or mass lesions, tongue midline, palate elevates symmetrically, tongue base and floor of mouth soft. Neck: nontender, no lymphadenopathy or masses. Thyroid: no masses. Face: symmetric, sinuses nontender, skin without lesions. Salivary glands: normal size, nontender, no masses. Ears: EACs free of lesions. TMs clear and mobile. Neurologic: digital account supervisor II-XII grossly intact. SNE neg Impression: Chronic L nasal obstruction. Septal deviation to L. Discussed trial of nasal steroid vs septo/outfracture of bilateral inferior turbinates. Prefers latter. S I discussed the procedure and reviewed the risks. The risks include bleeding, infection, septal perforation, cosmetic nasal deformity, persistent obstruction, numbness/paresthesia of teeth/palate, and need for revision. The patient understands and agrees to proceed. CC: Rogers PROGRESS Observed: 06/02/2018 Status: COMPLETED Source: [place] 2:04 PM [facility] REPOSITORY HNO ID: [id number] Author: Braulio Roblero Service: (none) Author Type: Physician Type: Progress Notes Filed: 06/02/2018 5:49 PM Note Text: PERTINENT CARDIAC HISTORY ASHD - CABGx4 1998, PCI LAD 1999 AV block - PPM 2016 EDMOND - Bipap HTN DM HL CHF - diastolic PAF - hemoptysis with Xarelto ADHERENCE TO GUIDELINES CIELO-I or ARB for HF with prior LVEF<40 (NQF 0081) - intolerant ASA or Plavix for ASHD (NQF 0067) - met Beta emily for ASHD with prior MT or prior LVEF<40 (NQF 0070) - N/A Beta emily for HF with prior LVEF<40 (NQF 0083) - N/A CIELO-I or ARB for ASHD with DM or prior LVEF<40 (NQF 0066) - intolerant Statin therapy for ASHD or FHL or DM - met BMI documented and plan if >25 (NQF 0421) - lifestyle recommendation form Tobacco use screening and referral (NQF 0028) - lifestyle recommendation form Recommendation for whole food, plant based diet - lifestyle recommendation form CLINICAL IMPRESSION/PLAN: Mayco Kendrick has had difficulty taking Xarelto. There is no identifiable lesion in the lung or oral cavity that can explain the hemoptysis. Fortunately, his atrial fibrillation is infrequent. He is also taking aspirin and his coronary disease has been stable. An alternative to adding Xarelto would be to substitute low-dose Xarelto for his aspirin and see if he has recurrent bleeding. He has been advised to continue his other medication and let me know if he has exacerbation of his coronary disease or increasing palpitations. Written and verbal health teaching given to patient, patient verbalizes understanding and agrees with treatment plan. DIAGNOSIS FOR VISIT: PAF ASHD HISTORY OF PRESENT ILLNESS Mayco Kendrick in for follow-up of his atrial fibrillation and coronary disease. He is currently off Xarelto, as he was still having occasional blood on his pillow. He is taking aspirin. He's had no recent angina. He has a few sharp chest wall pains from time to time that last a few seconds. Exercise tolerance has been limited but stable. He's had no orthopnea, syncope, TIAs, amaurosis or claudication. He's had no recent episodes of atrial fibrillation. His edema has been stable. He still has difficulty managing his salt intake and calorie consumption. ALLERGIES: ALLERGIES Allergen Reactions - Lisinopril Other: See Comments Metallic taste in mouth. - Sertraline GI Upset CURRENT OUTPATIENT MEDICATIONS: polyethylene glycol 3350 (MIRALAX, GLYCOLAX) 17 gram/dose powder Take 17 g by mouth once daily. Take one (1) capful in 8oz of liquid each day. COMPOUNDED PRESCRIPTION 2 oz prune juice, before bed, as needed for constipation. Ranitidine HCl 300 mg tablet 1 TABLET BY MOUTH WITH DINNER DX:GERD / NURSE TO REORDER furosemide (LASIX) 40 mg tablet Take 1 tablet by mouth once daily. docusate sodium (DOC-Q-LACE) 100 mg capsule Take 1 capsule by mouth twice daily as needed. aluminum AND magnesium hydroxide-simethicone (MAALOX PLUS EXTRA STRENGTH) 400-400-40 mg/5 mL suspension Take 20 mL by mouth every 6 hours as needed (upset stomach). pantoprazole DR (PROTONIX) 40 mg tablet Take 1 tablet by mouth daily before breakfast. Take on empty stomach, 1/2 hr before meal. Per Gastroenterology traZODone (DESYREL) 50 mg tablet Take 1 tablet by mouth at bedtime as needed (sedation). guaiFENesin (SILTUSSIN SA) 100 mg/5 mL syrup Take 10 mL by mouth three times daily as needed. triamcinolone acetonide (KENALOG) 0.1 % cream Apply to itching rash on chest twice daily ONLY when needed; may keep in room COMPOUNDED PRESCRIPTION Rollator, # one Dx: I50.33, I25.700, I48.0, J45.20, E66.01, M54.42, M25.551, Z91.81 ammonium lactate (LAC-HYDRIN) 12 % cream Apply 1 application to affected area twice daily as needed. furosemide (LASIX) 80 mg tablet One PO daily in AM oxybutynin (DITROPAN) 5 mg tablet Take 1 tablet by mouth three times daily. glimepiride (AMARYL) 1 mg tablet Take 1 tablet by mouth daily with breakfast. metoprolol tartrate, short acting, (LOPRESSOR) 25 mg tablet Take 1 tablet by mouth every 12 hours. ketoconazole (NIZORAL) 2 % shampoo Use as a body wash, most specifically the chest, daily for itching and flaking; may keep in own shower atorvastatin (LIPITOR) 80 mg tablet Take 1 tablet by mouth once daily. tamsulosin ER (FLOMAX) 0.4 mg cp24 Take 1 capsule by mouth every evening. for prostate metFORMIN (GLUCOPHAGE) 500 mg tablet Take 1 tablet by mouth three times daily with meals. nitroglycerin sublingual (NITROSTAT) 0.4 mg SL tablet Take 1 tablet by mouth as needed. for chest pain; dissolve on tongue. If no pain relief call 911. magnesium oxide (MAG-OX) 400 mg tablet Take 1 tablet by mouth once daily. COMPOUNDED PRESCRIPTION Please eval and fix any issues with walker.Dx: I50.33, I25.10, E66.01, M54.42, M25.551 bisacodyl (DULCOLAX) 10 mg supp 1 Suppository by RECTAL route once daily as needed (for constipation). aspirin, enteric coated (ADULT LOW DOSE ASPIRIN) 81 mg EC tablet Take 1 tablet by mouth once daily. COMPOUNDED PRESCRIPTION Glucometer high/low test solution for accucheck. DX: DM COMPOUNDED PRESCRIPTION Please perform a nocturnal oximetry on room air on BiPAP. Diagnosis: HypoxiaPlease fax results to [phone] Attn: Glenyd Lancets (ACCU-CHEK FASTCLIX) lancets Test glucose twice weekly. Dx: 250.00. Insulin Use: no blood sugar diagnostic test strip testing twice weekly dx 250.00 insulin no Blood-Glucose Meter, Drum-type (ACCU-CHEK COMPACT PLUS CARE) kit Test fasting blood sugar 1-2 times a week and 2 hrs post meal 1- 2 times a week. Blood-Glucose Meter (ONETOUCH ULTRA 2) monitoring kit 1 Each as needed. One Touch Meter Kit Diagnosis: Diabetes Mellitus Blood Glucose Control, Normal (OT ULTRA/FASTTRACK CONTROL) soln Test controls as needed. COMPOUNDED PRESCRIPTION BIPAP setting: IPAP 22cm water with heated humidification EPAP setting of 16cm with supplemental oxygen bleed in at 2lt per minute. Mask (per patient preference) and supplies for lifetime. Please add chin strap DX EDMOND 327.23 PHYSICAL EXAMINATION: VITAL SIGNS: BP 130/68 Pulse 68 Ht 6' 0 (1.83m) Wt 337 lb 12.8 oz (153.2kg) BMI 45.80 kg/(m2). Chest: Clear to auscultation. Trachea is midline. Air entry is equal. Cardiac: Regular rhythm. S1 and S2 are normal. PMI is nondisplaced. There is a soft systolic ejection murmur. Carotids are brisk without bruits. JVP is less than 10 cm. Abdomen: Soft and nontender. There is morbid obesity. There are no pulsatile masses or bruits. No liver enlargement. Bowel sounds are active. Extremities: 1 plus pitting edema with chronic stasis changes. Pulses are intact and symmetrical. Recent EKG showed sinus rhythm with normal pacemaker function. Recent pacemaker evaluation showed rare episodes of atrial fibrillation. Electronically Signed: Braulio Roblero MD June 02, 2018 2:04 PM CC: Bertrand Leon MD CNOV Observed: 06/02/2018 Status: COMPLETED Source: [place] 1:30 PM [facility] REPOSITORY Office Visit ([facility]) MAYCO KENDRICK ([id number]) 1940 M [facility] Date Time Provider Department 06/02/18 1:30 PM BRAULIO ROBLERO [facility] During your visit today, we recorded the following information about you: Pulse Blood pressure Weight Height 68/minute 130/68 153.2 kg 1.829 m Braulio Roblero MD 06/02/2018 5:49 PM Signed PERTINENT CARDIAC HISTORY ASHD - CABGx4 1998, PCI LAD 2000 AV block - PPM 2016 EDMOND - Bipap HTN DM HL CHF - diastolic PAF - hemoptysis with Xarelto ADHERENCE TO GUIDELINES CIELO-I or ARB for HF with prior LVEF<40 (NQF 0081) - intolerant ASA or Plavix for ASHD (NQF 0067) - met Beta emily for ASHD with prior MT or prior LVEF<40 (NQF 0070) - N/A Beta emily for HF with prior LVEF<40 (NQF 0083) - N/A CIELO-I or ARB for ASHD with DM or prior LVEF<40 (NQF 0066) - intolerant Statin therapy for ASHD or FHL or DM - met BMI documented and plan if >25 (NQF 0421) - lifestyle recommendation form Tobacco use screening and referral (NQF 0028) - lifestyle recommendation form Recommendation for whole food, plant based diet - lifestyle recommendation form CLINICAL IMPRESSION/PLAN: Mayco Kendrick has had difficulty taking Xarelto. There is no identifiable lesion in the lung or oral cavity that can explain the hemoptysis. Fortunately, his atrial fibrillation is infrequent. He is also taking aspirin and his coronary disease has been stable. An alternative to adding Xarelto would be to substitute low-dose Xarelto for his aspirin and see if he has recurrent bleeding. He has been advised to continue his other medication and let me know if he has exacerbation of his coronary disease or increasing palpitations. Written and verbal health teaching given to patient, patient verbalizes understanding and agrees with treatment plan. DIAGNOSIS FOR VISIT: PAF ASHD HISTORY OF PRESENT ILLNESS Mayco Kendrick in for follow-up of his atrial fibrillation and coronary disease. He is currently off Xarelto, as he was still having occasional blood on his pillow. He is taking aspirin. He's had no recent angina. He has a few sharp chest wall pains from time to time that last a few seconds. Exercise tolerance has been limited but stable. He's had no orthopnea, syncope, TIAs, amaurosis or claudication. He's had no recent episodes of atrial fibrillation. His edema has been stable. He still has difficulty managing his salt intake and calorie consumption. ALLERGIES: ALLERGIES Allergen Reactions - Lisinopril Other: See Comments Metallic taste in mouth. - Sertraline GI Upset CURRENT OUTPATIENT MEDICATIONS: polyethylene glycol 3350 (MIRALAX, GLYCOLAX) 17 gram/dose powder Take 17 g by mouth once daily. Take one (1) capful in 8oz of liquid each day. COMPOUNDED PRESCRIPTION 2 oz prune juice, before bed, as needed for constipation. Ranitidine HCl 300 mg tablet 1 TABLET BY MOUTH WITH DINNER DX:GERD / NURSE TO REORDER furosemide (LASIX) 40 mg tablet Take 1 tablet by mouth once daily. docusate sodium (DOC-Q-LACE) 100 mg capsule Take 1 capsule by mouth twice daily as needed. aluminum AND magnesium hydroxide-simethicone (MAALOX PLUS EXTRA STRENGTH) 400-400-40 mg/5 mL suspension Take 20 mL by mouth every 6 hours as needed (upset stomach). pantoprazole DR (PROTONIX) 40 mg tablet Take 1 tablet by mouth daily before breakfast. Take on empty stomach, 1/2 hr before meal. Per Gastroenterology traZODone (DESYREL) 50 mg tablet Take 1 tablet by mouth at bedtime as needed (sedation). guaiFENesin (SILTUSSIN SA) 100 mg/5 mL syrup Take 10 mL by mouth three times daily as needed. triamcinolone acetonide (KENALOG) 0.1 % cream Apply to itching rash on chest twice daily ONLY when needed; may keep in room COMPOUNDED PRESCRIPTION Rollator, # one Dx: I50.33, I25.700, I48.0, J45.20, E66.01, M54.42, M25.551, Z91.81 ammonium lactate (LAC-HYDRIN) 12 % cream Apply 1 application to affected area twice daily as needed. furosemide (LASIX) 80 mg tablet One PO daily in AM oxybutynin (DITROPAN) 5 mg tablet Take 1 tablet by mouth three times daily. glimepiride (AMARYL) 1 mg tablet Take 1 tablet by mouth daily with breakfast. metoprolol tartrate, short acting, (LOPRESSOR) 25 mg tablet Take 1 tablet by mouth every 12 hours. ketoconazole (NIZORAL) 2 % shampoo Use as a body wash, most specifically the chest, daily for itching and flaking; may keep in own shower atorvastatin (LIPITOR) 80 mg tablet Take 1 tablet by mouth once daily. tamsulosin ER (FLOMAX) 0.4 mg cp24 Take 1 capsule by mouth every evening. for prostate metFORMIN (GLUCOPHAGE) 500 mg tablet Take 1 tablet by mouth three times daily with meals. nitroglycerin sublingual (NITROSTAT) 0.4 mg SL tablet Take 1 tablet by mouth as needed. for chest pain; dissolve on tongue. If no pain relief call 911. magnesium oxide (MAG-OX) 400 mg tablet Take 1 tablet by mouth once daily. COMPOUNDED PRESCRIPTION Please eval and fix any issues with walker.Dx: I50.33, I25.10, E66.01, M54.42, M25.551 bisacodyl (DULCOLAX) 10 mg supp 1 Suppository by RECTAL route once daily as needed (for constipation). aspirin, enteric coated (ADULT LOW DOSE ASPIRIN) 81 mg EC tablet Take 1 tablet by mouth once daily. COMPOUNDED PRESCRIPTION Glucometer high/low test solution for accucheck. DX: DM COMPOUNDED PRESCRIPTION Please perform a nocturnal oximetry on room air on BiPAP. Diagnosis: HypoxiaPlease fax results to [phone] Attn: Glendy Lancets (ACCU-CHEK FASTCLIX) lancets Test glucose twice weekly. Dx: 250.00. Insulin Use: no blood sugar diagnostic test strip testing twice weekly dx 250.00 insulin no Blood-Glucose Meter, Drum-type (ACCU-CHEK COMPACT PLUS CARE) kit Test fasting blood sugar 1-2 times a week and 2 hrs post meal 1-2 times a week. Blood-Glucose Meter (ONETOUCH ULTRA 2) monitoring kit 1 Each as needed. One Touch Meter Kit Diagnosis: Diabetes Mellitus Blood Glucose Control, Normal (OT ULTRA/FASTTRACK CONTROL) soln Test controls as needed. COMPOUNDED PRESCRIPTION BIPAP setting: IPAP 22cm water with heated humidification EPAP setting of 16cm with supplemental oxygen bleed in at 2lt per minute. Mask (per patient preference) and supplies for lifetime. Please add chin strap DX EDMOND 327.23 PHYSICAL EXAMINATION: VITAL SIGNS: BP 130/68 Pulse 68 Ht 6' 0 (1.83m) Wt 337 lb 12.8 oz (153.2kg) BMI 45.80 kg/(m2). Chest: Clear to auscultation. Trachea is midline. Air entry is equal. Cardiac: Regular rhythm. S1 and S2 are normal. PMI is nondisplaced. There is a soft systolic ejection murmur. Carotids are brisk without bruits. JVP is less than 10 cm. Abdomen: Soft and nontender. There is morbid obesity. There are no pulsatile masses or bruits. No liver enlargement. Bowel sounds are active. Extremities: 1 plus pitting edema with chronic stasis changes. Pulses are intact and symmetrical. Recent EKG showed sinus rhythm with normal pacemaker function. Recent pacemaker evaluation showed rare episodes of atrial fibrillation. Electronically Signed: Braulio Roblero MD June 02, 2018 2:04 PM CC: MD Braulio Reed MD 06/02/2018 2:04 PM Signed LIFESTYLE CHANGE A healthy lifestyle is the most important component of your overall treatment plan. Please give serious thought to the following areas and commit to making rn long term care changes. EAT A WHOLE FOOD, PLANT BASED DIET The nutrition your body gets is more important than the medicine you take. What matters most is the overall way you eat. We encourage you to minimize the use of animal products (which include dairy and all meats except fatty fish) and use whole, unprocessed plant foods to provide your protein, vitamins and other nutrients. We have a lot of information to share with you on this topic. This is not a diet. It is a way of life that you will keep with you. EXERCISE REGULARLY It is not important to spend hours in the gym, lifting weights and perspiring heavily. A total of 2-3 hours per week of aerobic (causing you to be moderately short of breath) exercise is sufficient to improve your health. Talk to us before you begin a new exercise program, if you have heart disease or experience shortness of breath or chest pain. REDUCE STRESS Chronic emotional and physical stress leads to disease. Ways of reducing stress include meditation, visualization, prayer, yoga and other forms of relaxation therapy. Consistency is the kidd. Find a technique that works for you and do it every day. CULTIVATE RELATIONSHIPS Loneliness and isolation have a major negative impact on health. Seek out others who can love, care for and nurture you. Avoid hurtful relationships. MAINTAIN IDEAL BODY WEIGHT The best way to do this is to do all the things above. Our bodies naturally find the right weight if we keep moving and feed ourselves the right food. If your BMI is greater than 25, we strongly recommend a referral to a weight management program. Please speak to us or your family physician about available programs. AVOID NICOTINE IN ALL FORMS This includes all tobacco products, whether chewed, smoked, vaped, or rubbed on the skin. Smoking cessation programs, which can make use of tobacco substitutes, medications to suppress cravings and behavior management, are available. Please contact your family physician about programs in your area. Referring Provider: BRAULIO ROBLERO [[id number]] Allergies As of Date: 06/02/2018 Noted Allergy Reaction LISINOPRIL 05/31/2014 14 - Other: See Comments Comments: Metallic taste in mouth. SERTRALINE 05/02/2013 8 - GI Upset Date Reviewed: 06/02/2018 Reviewed by: Estrella Abarca MA - Fully Assessed Reason for Visit: Established Patient [175] Cmt: ASHD Primary Visit Diagnosis:ASHD (arteriosclerotic heart disease) [I25.10] Other Visit Diagnosis:PAF (paroxysmal atrial fibrillation) ([facility]) [I48.0] Prescriptions as of 06/02/2018 Sig: POLYETHYLENE GLYCOL 3350 17 G* Take 17 g by mouth once daily* COMPOUNDED PRESCRIPTION 2 oz prune juice, before bed,* RANITIDINE 300 MG TABLET 1 TABLET BY MOUTH WITH DINNER* FUROSEMIDE 40 MG TABLET Take 1 tablet by mouth once d* DOCUSATE SODIUM 100 MG CAPSULE Take 1 capsule by mouth twice* ALUMINUM-MAG HYDROXIDE-SIMETH* Take 20 mL by mouth every 6 h* PANTOPRAZOLE 40 MG TABLET,DEL* Take 1 tablet by mouth daily * TRAZODONE 50 MG TABLET Take 1 tablet by mouth at bed* GUAIFENESIN 100 MG/5 ML ORAL * Take 10 mL by mouth three agnes* TRIAMCINOLONE ACETONIDE 0.1 %* Apply to itching rash on ches* COMPOUNDED PRESCRIPTION Rollator, # one Dx: I50.33, I* AMMONIUM LACTATE 12 % TOPICAL* Apply 1 application to affect* FUROSEMIDE 80 MG TABLET One PO daily in AM OXYBUTYNIN CHLORIDE 5 MG TABL* Take 1 tablet by mouth three * GLIMEPIRIDE 1 MG TABLET Take 1 tablet by mouth daily * METOPROLOL TARTRATE 25 MG TAB* Take 1 tablet by mouth every * KETOCONAZOLE 2 % SHAMPOO Use as a body wash, most spec* ATORVASTATIN 80 MG TABLET Take 1 tablet by mouth once d* TAMSULOSIN 0.4 MG CAPSULE Take 1 capsule by mouth every* METFORMIN 500 MG TABLET Take 1 tablet by mouth three * NITROGLYCERIN 0.4 MG SUBLINGU* Take 1 tablet by mouth as nee* MAGNESIUM OXIDE 400 MG (241.3* Take 1 tablet by mouth once d* COMPOUNDED PRESCRIPTION Please eval and fix any issue* BISACODYL 10 MG RECTAL SUPPOS* 1 Suppository by RECTAL route* ASPIRIN 81 MG TABLET,DELAYED * Take 1 tablet by mouth once d* COMPOUNDED PRESCRIPTION Glucometer high/low test solu* COMPOUNDED PRESCRIPTION Please perform a nocturnal ox* LANCETS Test glucose twice weekly. Dx* BLOOD SUGAR DIAGNOSTIC STRIPS testing twice weekly dx 250* BLOOD-GLUCOSE METER, DRUM-TYP* Test fasting blood sugar 1-2 * BLOOD-GLUCOSE METER KIT 1 Each as needed. One Touch M* BLOOD GLUCOSE CONTROL, NORMAL* Test controls as needed. * COMPOUNDED PRESCRIPTION BIPAP setting: IPAP 22cm wate* Problem List As Of Date 06/02/2018 Noted Resolved Mild intermittent asthma without complication [* Priority: A MALIGN NEOPL PROSTATE [C61] Priority: B More... Type II or unspecified type diabetes mellitus w* 01/18/2014 Allergic rhinitis, cause unspecified [J30.9] INVALID FOR* Priority: B More... Personal history of colonic polyps [Z86.010] Priority: C More... Lumbago [M54.5] INVALID FOR* Priority: M Bilateral leg edema [R60.0] INVALID FOR* Priority: A Carpal tunnel syndrome, bilateral [G56.03] INVALID FOR* Priority: M More... Essential hypertension, benign [I10] INVALID FOR* Priority: A More... Insomnia, unspecified [G47.00] INVALID FOR* Priority: B More... Benign neoplasm of rectum and anal canal [D12.8*INVALID FOR* Priority: C Diverticulosis of colon (without mention of hem*INVALID FOR* Priority: C Hypertrophy of nasal turbinates [J34.3] INVALID FOR* Priority: C More... 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 More... More... EDMOND (obstructive sleep apnea) [G47.33] INVALID FOR* Priority: B More... Mobitz (type) I (Wenckebach's) atrioventricular*INVALID FOR* Priority: A More... More... Mixed hyperlipidemia [E78.2] INVALID FOR* Priority: A More... DVT prophylaxis [ANQ2107] INVALID FOR*07/26/2014 More... More... More... More... More... More... Bradycardia [R00.1] INVALID FOR* Priority: A More... Venous stasis dermatitis of both lower extremit*INVALID FOR* Priority: B Counseling and coordination of care [Z71.89] INVALID FOR*04/12/2015 More... Hypomagnesemia [E83.42] INVALID FOR* Priority: B Diabetic eye exam (HCC) [Z01.00, E11.9] INVALID FOR* Priority: A More... Dry mouth [R68.2] INVALID FOR* Priority: B Noncompliance [Z91.19] INVALID FOR* Gastroesophageal reflux disease without esophag*INVALID FOR* Priority: A Coronary atherosclerosis due to lipid rich plaq*INVALID FOR* Priority: A Morbid obesity due to excess calories (HCC) [E6*INVALID FOR* Priority: B More... Essential tremor [G25.0] INVALID FOR* Priority: B Chronic cough [R05] INVALID FOR* Priority: B Well adult exam [Z00.00] INVALID FOR*01/07/2018 Priority: E More... Controlled type 2 diabetes mellitus with diabet*INVALID FOR* Priority: A Depression [F32.9] INVALID FOR* Priority: A Multiple open wounds of lower leg [S81.809A] INVALID FOR* Priority: D Colon cancer screening [Z12.11] INVALID FOR* Chest pain [R07.9] INVALID FOR* Priority: B More... Second degree heart block [I44.1] INVALID FOR* Priority: A More... Atherosclerosis of coronary artery bypass graft*INVALID FOR* Priority: A More... More... More... More... Hypoxia [R09.02] INVALID FOR* Chronic bilateral low back pain with left-sided*INVALID FOR* Priority: M Bilateral hip pain [M25.551, M25.552] INVALID FOR* Priority: M Paroxysmal atrial fibrillation (HCC) [I48.0] INVALID FOR* Priority: A More... 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 More... 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 More... Current use of proton pump inhibitor [Z79.899] INVALID FOR* More... More... Ulnar neuropathy at elbow of left upper extremi*INVALID FOR* Priority: M More... Hemoptysis [R04.2] INVALID FOR* Priority: A More... At high risk for falls [Z91.81] INVALID FOR* Memory changes [R41.3] INVALID FOR* Priority: B More... Closed compression fracture of L1 lumbar verteb*INVALID FOR* Priority: Mild More... Chronic constipation [K59.09] INVALID FOR* Priority: C Other instructions from your clinician: LIFESTYLE CHANGE A healthy lifestyle is the most important component of your overall treatment plan. Please give serious thought to the following areas and commit to making assisted changes. EAT A WHOLE FOOD, PLANT BASED DIET The nutrition your body gets is more important than the medicine you take. What matters most is the overall way you eat. We encourage you to minimize the use of animal products (which include dairy and all meats except fatty fish) and use whole, unprocessed plant foods to provide your protein, vitamins and other nutrients. We have a lot of information to share with you on this topic. This is not a diet. It is a way of life that you will keep with you. EXERCISE REGULARLY It is not important to spend hours in the gym, lifting weights and perspiring heavily. A total of 2-3 hours per week of aerobic (causing you to be moderately short of breath) exercise is sufficient to improve your health. Talk to us before you begin a new exercise program, if you have heart disease or experience shortness of breath or chest pain. REDUCE STRESS Chronic emotional and physical stress leads to disease. Ways of reducing stress include meditation, visualization, prayer, yoga and other forms of relaxation therapy. Consistency is the kidd. Find a technique that works for you and do it every day. CULTIVATE RELATIONSHIPS Loneliness and isolation have a major negative impact on health. Seek out others who can love, care for and nurture you. Avoid hurtful relationships. MAINTAIN IDEAL BODY WEIGHT The best way to do this is to do all the things above. Our bodies naturally find the right weight if we keep moving and feed ourselves the right food. If your BMI is greater than 25, we strongly recommend a referral to a weight management program. Please speak to us or your family physician about available programs. AVOID NICOTINE IN ALL FORMS This includes all tobacco products, whether chewed, smoked, vaped, or rubbed on the skin. Smoking cessation programs, which can make use of tobacco substitutes, medications to suppress cravings and behavior management, are available. Please contact your family physician about programs in your area. Follow-up and Disposition History Recorded Encounter Status:Closed by BRAULIO ROBLERO MD on 06/02/18 CNOV Observed: 05/31/2018 Status: COMPLETED Source: [place] 9:40 AM [facility] REPOSITORY Office Visit ([facility]) MAYCO KENDRICK ([id number]) 1940 M NFR Date Time Provider Department 05/31/18 9:40 AM SOHAIL GRIFFITH (MAXX) [facility] During your visit today, we recorded the following information about you: Pulse Blood pressure Weight Height 99/minute 126/67 152 kg 1.829 m Sohail Griffith RN BUSINESS INTELLIGENCE DIRECTOR.MECHANICAL APPLICATIONS ENGINEER 05/31/2018 10:04 AM Signed Myaco Kendrick a 77 year old male who is a consultation requested by RETA Wilson, for an opinion regarding constipation. My final recommendations will be communicated back to the requesting provider by way of shared Medical record. The patient has been seen previously. The patient denies a personal and family history of colon cancer.. The patient was seen by Melly on 05/23/18, leading to this consultation. That note has been reviewed and part as follows: On ROS: GI: See HPI- worsening constipation and abdominal pain. Strange taste in throat. Patient was instructed to increase colace to twice a day. The patient was seen by Dr. Villalobos for EGD and diagnostic colonoscopy 12/29/16, for reported hem + stool. The procedure report has been reviewed and findings as follows: Impression: ? ?- One diminutive polyp in the proximal transverse colon, ?removed with a cold biopsy forceps. Resected and ?retrieved. ?- Diverticulosis in the entire examined colon. ?- The examination was otherwise normal. ?- The distal rectum and anal verge are normal on ?retroflexion view. FINAL DIAGNOSIS Proximal transverse colon, polypectomy (B) ?Hyperplastic polyp. I have reviewed the procedure and pathology reports, as well as the images, with the patient. Presenting complaint: Having a bowel movement about every 2 days. The patient states it's dry and hard to move. He is taking a stool softener twice a day. He tells me that he only taking the Miralax just when I need it. I have stressed that he needs to be taking it twice a day to make the stools less dry. Also suggested drinking a small glass of warm prune juice before bed. The patient complains that the Lasix dries him out terribly. Trying to drink as much water as possible. The patient tells me that the meals are getting better at his home. He as been trying to watch the dairy. He notes occasional bloating. Notes occasional stomach (rubbing lower abdomen) cramping. I have explained that getting his stools softer and moving better will help that. REVIEW OF SYSTEMS: GENERAL: No weight loss, malaise or fevers GI: The patient states that his appetite has been good. He does get hungry. There has been no nausea, no vomiting. He denies dysphagia and denies odynophagia. There has not been indigestion or heartburn. There has not been regurgitation. Bowel habits have been regular. There has not been diarrhea. There has been constipation. The patient denies rectal bleeding. There has not been melena. No new or worsening abdominal pain. ENDOCRINE: Positive for diabetes mellitus on oral agent NEURO: No history of headaches, syncope, paralysis, seizures or tremors All other reviewed and negative other than HPI. PAST MEDICAL HISTORY Diagnosis Date - Abdominal pain 08/11/2014 w some distention. Appears chronic -abdominal ultrasound - ACUTE GASTRITIS W/O HEMORRHAGE 12/21/2006 - Acute on chronic diastolic CHF (congestive heart failure), NYHA class 4 (HCC) 03/08/2014 H/o HFpEF with diastolic dysfunction, ICM 55% EF Presents with CP and SOB Weight gain 30lbs in last 3 months Currently SOB and volume overload, in setting of unstable angina (killip 3) Plan Continue Diuresis As above for possible restrictive CM - ALLERGIC RHINITIS NOS 05/03/2006 - Asthma - ASTHMA UNSPECIFIED - Benign neoplasm of colon - Benign neoplasm of rectum and anal canal - Bilateral leg edema 11/05/2008 - Bradycardia 08/11/2014 Patient with sinus bradycardia with Type 1 Mobitz since 2011 however Pulse dropping to high 30s with dizziness Plan: Place on tele for monitoring EP evaluation for ? Pacemaker with new onset of symptoms 2/2 to relative hypotension vs bradycardia Daily EKGs to evaluate rhythm, still appears to be Mobitz type 1 Keep K and Mag above 4 and 2 respectively - Carpal tunnel syndrome 03/28/2010 - Chest pain 07/26/2014 73 year old male transferred from OSH for Unstable angina, chest pain on a Nitro and heparin Drip. First set of enzymes was negative. No ST-T wave chanes on EKG Mobitz type 1 AV block (chronic) ALVERTO score 5 With associated SOB and Pulmonary edema on CXR (Killip class 3) Found not to have acute plaque rupture ?Restrictive cardiomyopathy Will need LHC (LVEDP) and RHC tomorrow - per Dr. Pepe would like Dr. Randall PLAN NPO at midnight Call Cath Charge in AM to confirm schedule and attending Continue diuresis Additionally: - ASA - Stop plavix - reduce Atorvastatin to 20mg (home dose, last LDL ~55) - Losartan - Chest pain with painful respiration 08/11/2014 Chest heaviness. Unstable angina ? 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 Resume as the bp normalizes. 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 Say Pulmonary 06/2017 and said he would be very high risk for a Bronch due to obesity and known diastolic LV dysfunction. Patient has been back on Xarelto since early November per [facility]. - Hip fracture, right (HCC) 09/22/2012 Treated medically - History of prostatitis 04/11/2013 - Hyperlipidemia - Hypertension - Hypertrophy of nasal turbinates 07/06/2012 consult with [facility] 06/29/2012 Plan to schedule ablation of inferior turbinates @ [facility]. - Insomnia, unspecified 06/17/2011 [facility] report reviewed October 22, 2011 Matt Taylor MD - Leg swelling - Lumbago 05/11/2007 - MALIGN NEOPL PROSTATE - Memory changes 01/26/2018 Saw psych 04/15/2018 and felt to be normal age related changes. - Mobitz (type) I (Wenckebach's) atrioventricular block 07/26/[address] Eric Go in 2012. Chronic conduction abnormality. does not need a pacemaker. Here with concern for ACS EKG: mobitz type 1, unchanged from prior, no ST-T wave changes BP stable Plan: Monitor Avoiding BB - Morbid obesity 06/02/2011 07/08/2017: H: 72 in, W: 358 lb, BMI 48.54. 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 01/18/2014 - Type II or unspecified type diabetes mellitus without mention of complication, not stated as uncontrolled - Unspecified sleep apnea CPAP 18 with 1L - Urgency of urination 02/01/2014 PAST SURGICAL HISTORY Procedure Laterality Date - CABG, ARTERY-VEIN, TWO 1998 CABG, two grafts - CHOLECYSTECTOMY HX 10/14/2015 gangrenous gallbladder - COLONOSCOP W/ OR W/O BRSH SPEC 01/27/2005 Colonoscopy - COLONOSCOP W/ OR W/O BRS SPEC 12/21/2006` repeat in -2011 - COLONOSCOP W/ OR W/O BRS SPEC 05/18/2012 Colonoscopy repeat 5 years - COLONOSCOPY 12/29/2016 repeat 10 yrs - EGD 12/29/2016 - EGD W/O BRSH SPECIMEN W/BX 12/21/06 - EGD W/O OR W/BRUSH/WASH 01/27/2005 EGD - EGD W/O OR W/BRUSH/WASH 11/21/14 EGD - OPEN CORONARY ENDARTERECTOMY 1999 Angioplasty with stent placement - PACEMAKER 2016 - REMOVAL OF TONSILS,<12 Y/O Tonsillectomy - REPAIR RETINAL DETACH, C 10/2010 - REVISE MEDIAN N/CARPAL TUNNEL SURG Right 09/10/2017 Right CTR - REVISE MEDIAN N/CARPAL TUNNEL SURG Left 01/14/2018 Left CTR - REVISE ULNAR NERVE AT ELBOW Right 09/10/2017 Right ulnar nerve decompression - REVISE ULNAR NERVE AT ELBOW Left 01/14/2018 Left unlar nerve decompression - TOTAL HIP REPLACEMENT 2000 Hip replacement, total, right - TOTAL HIP REPLACEMENT 2001 Hip replacement, total, left FAMILY HISTORY Problem Relation Age of Onset - Heart Father - Cancer Mother Lung - Heart Paternal Grandfather - Heart Brother Current Outpatient Prescriptions: Ranitidine HCl 300 mg tablet 1 TABLET BY MOUTH WITH DINNER DX:GERD / NURSE TO REORDER Disp: 90 tablet Rfl: 3 furosemide (LASIX) 40 mg tablet Take 1 tablet by mouth once daily. Disp: 30 tablet Rfl: 11 docusate sodium (DOC-Q-LACE) 100 mg capsule Take 1 capsule by mouth twice daily as needed. Disp: 180 capsule Rfl: 3 aluminum AND magnesium hydroxide-simethicone (MAALOX PLUS EXTRA STRENGTH) 400-400-40 mg/5 mL suspension Take 20 mL by mouth every 6 hours as needed (upset stomach). Disp: 500 mL Rfl: [address] (PROTONIX) 40 mg tablet Take 1 tablet by mouth daily before breakfast. Take on empty stomach, 1/2 hr before meal. Per Gastroenterology Disp: 30 tablet Rfl: 11 traZODone (DESYREL) 50 mg tablet Take 1 tablet by mouth at bedtime as needed (sedation). Disp: 15 tablet Rfl: 5 guaiFENesin (SILTUSSIN SA) 100 mg/5 mL syrup Take 10 mL by mouth three times daily as needed. Disp: Rfl: 0 triamcinolone acetonide (KENALOG) 0.1 % cream Apply to itching rash on chest twice daily ONLY when needed; may keep in room Disp: 454 g Rfl: 2 COMPOUNDED PRESCRIPTION Rollator, # one Dx: I50.33, I25.700, I48.0, J45.20, E66.01, M54.42, M25.551, Z91.81 Disp: 1 Device Rfl: 0 ammonium lactate (LAC-HYDRIN) 12 % cream Apply 1 application to affected area twice daily as needed. Disp: 385 g Rfl: 11 furosemide (LASIX) 80 mg tablet One PO daily in AM Disp: 90 tablet Rfl: 3 oxybutynin (DITROPAN) 5 mg tablet Take 1 tablet by mouth three times daily. Disp: 90 tablet Rfl: 11 glimepiride (AMARYL) 1 mg tablet Take 1 tablet by mouth daily with breakfast. Disp: 90 tablet Rfl: 3 metoprolol tartrate, short acting, (LOPRESSOR) 25 mg tablet Take 1 tablet by mouth every 12 hours. Disp: 180 tablet Rfl: 3 ketoconazole (NIZORAL) 2 % shampoo Use as a body wash, most specifically the chest, daily for itching and flaking; may keep in own shower Disp: 340 mL Rfl: 6 atorvastatin (LIPITOR) 80 mg tablet Take 1 tablet by mouth once daily. Disp: 90 tablet Rfl: 3 tamsulosin ER (FLOMAX) 0.4 mg cp24 Take 1 capsule by mouth every evening. for prostate Disp: 90 capsule Rfl: 3 metFORMIN (GLUCOPHAGE) 500 mg tablet Take 1 tablet by mouth three times daily with meals. Disp: 270 tablet Rfl: 3 nitroglycerin sublingual (NITROSTAT) 0.4 mg SL tablet Take 1 tablet by mouth as needed. for chest pain; dissolve on tongue. If no pain relief call 911. Disp: 2 Bottle of 25 Rfl: 5 magnesium oxide (MAG-OX) 400 mg tablet Take 1 tablet by mouth once daily. Disp: 90 tablet Rfl: 3 COMPOUNDED PRESCRIPTION Please eval and fix any issues with walker.Dx: I50.33, I25.10, E66.01, M54.42, M25.551 Disp: 1 Device Rfl: 0 bisacodyl (DULCOLAX) 10 mg supp 1 Suppository by RECTAL route once daily as needed (for constipation). Disp: Rfl: 0 polyethylene glycol 3350 (MIRALAX, GLYCOLAX) 17 gram/dose powder 17 g up to twice daily as needed prn constipation Disp: Rfl: 0 aspirin, enteric coated (ADULT LOW DOSE ASPIRIN) 81 mg EC tablet Take 1 tablet by mouth once daily. Disp: 90 tablet Rfl: 3 COMPOUNDED PRESCRIPTION Glucometer high/low test solution for accucheck. DX: DM Disp: 1 Bottle Rfl: 3 COMPOUNDED PRESCRIPTION Please perform a nocturnal oximetry on room air on BiPAP. Diagnosis: HypoxiaPlease fax results to [phone] Attn: Glendy Disp: 1 Each Rfl: 0 Lancets (ACCU-CHEK FASTCLIX) lancets Test glucose twice weekly. Dx: 250.00. Insulin Use: no Disp: 100 Each Rfl: 11 blood sugar diagnostic test strip testing twice weekly dx 250.00 insulin no Disp: 50 Strip Rfl: 12 Blood-Glucose Meter, Drum-type (ACCU-CHEK COMPACT PLUS CARE) kit Test fasting blood sugar 1-2 times a week and 2 hrs post meal 1-2 times a week. Disp: 1 Kit Rfl: 0 Blood-Glucose Meter (ONETOUCH ULTRA 2) monitoring kit 1 Each as needed. One Touch Meter Kit Diagnosis: Diabetes Mellitus Disp: 1 Each Rfl: 0 Blood Glucose Control, Normal (OT ULTRA/FASTTRACK CONTROL) soln Test controls as needed. Disp: 1 Each Rfl: 3 COMPOUNDED PRESCRIPTION BIPAP setting: IPAP 22cm water with heated humidification EPAP setting of 16cm with supplemental oxygen bleed in at 2lt per minute. Mask (per patient preference) and supplies for lifetime. Please add chin strap DX EDMOND 327.23 Disp: 1 Act Rfl: 99 No current facility-administered medications for this visit. SOCIAL HISTORY: Reviewed and unchanged from prior visit PHYSICAL EXAMINATION: Blood pressure 126/67, pulse 99, height 182.9 cm (6'), weight (!) 152 kg (335 lb). General Appearance: Well appearing, alert, in no acute distress, well-hydrated, well nourished. Skin: Skin color, texture, turgor normal, no suspicious rashes or lesions. Eyes: Anicteric sclera. Lungs: Lungs clear to auscultation. Heart: RRR without murmur. Abdomen: .Abdomen rotundt, non-tender. Bowel sounds normal. No masses, organomegaly. Extremities: No deformities, edema. Impression: constipation Plan: Resume Miralax twice a day. May adjust based on outcome. Take prune juice before bed, as needed. May continue the stool softener, for now. He agrees with this plan. I have personally interviewed and examined this patient. I have reviewed the information that the MA entered for this encounter. I spent 25 minutes in the visit, with greater than 50% of the total [id number] time of the visit in counseling and coordination of care. Sohail Griffith RN BUSINESS INTELLIGENCE DIRECTOR.RASHARD Griffith RN APRN.RASHARD 05/31/2018 9:46 AM Signed Resume Miralax taking a capful twice a day. Stir it into one of the drinks with breakfast and dinner. Drink 2 oz of prune juice before bed, as needed. Continue stool softener for now. Referring Provider: MELLY MCCLOUD(LORI) [[id number]] Allergies As of Date: 05/31/2018 Noted Allergy Reaction LISINOPRIL 05/31/2014 14 - Other: See Comments Comments: Metallic taste in mouth. SERTRALINE 05/02/2013 8 - GI Upset Date Reviewed: 05/31/2018 Reviewed by: Sanjuanita Nation Ma - Fully Assessed Reason for Visit: Constipation [25] Primary Visit Diagnosis:Drug-induced constipation [K59.03] Order(s):polyethylene glycol 3350 (MIRALAX, GLYCOLAX) 17 gram/dose powderTake 17 g by mouth once daily. Take one (1) capful in 8oz of liquid each day.Disp: 1 BottleRfl: 11 COMPOUNDED PRESCRIPTION2 oz prune juice, before bed, as needed for constipation.Disp: 1 BottleRfl: 11 Prescriptions as of 05/31/2018 Sig: POLYETHYLENE GLYCOL 3350 17 G* Take 17 g by mouth once daily* COMPOUNDED PRESCRIPTION 2 oz prune juice, before bed,* RANITIDINE 300 MG TABLET 1 TABLET BY MOUTH WITH DINNER* FUROSEMIDE 40 MG TABLET Take 1 tablet by mouth once d* DOCUSATE SODIUM 100 MG CAPSULE Take 1 capsule by mouth twice* ALUMINUM-MAG HYDROXIDE-SIMETH* Take 20 mL by mouth every 6 h* PANTOPRAZOLE 40 MG TABLET,DEL* Take 1 tablet by mouth daily * TRAZODONE 50 MG TABLET Take 1 tablet by mouth at bed* GUAIFENESIN 100 MG/5 ML ORAL * Take 10 mL by mouth three agnes* TRIAMCINOLONE ACETONIDE 0.1 %* Apply to itching rash on ches* COMPOUNDED PRESCRIPTION Rollator, # one Dx: I50.33, I* AMMONIUM LACTATE 12 % TOPICAL* Apply 1 application to affect* FUROSEMIDE 80 MG TABLET One PO daily in AM OXYBUTYNIN CHLORIDE 5 MG TABL* Take 1 tablet by mouth three * GLIMEPIRIDE 1 MG TABLET Take 1 tablet by mouth daily * METOPROLOL TARTRATE 25 MG TAB* Take 1 tablet by mouth every * KETOCONAZOLE 2 % SHAMPOO Use as a body wash, most spec* ATORVASTATIN 80 MG TABLET Take 1 tablet by mouth once d* TAMSULOSIN 0.4 MG CAPSULE Take 1 capsule by mouth every* METFORMIN 500 MG TABLET Take 1 tablet by mouth three * NITROGLYCERIN 0.4 MG SUBLINGU* Take 1 tablet by mouth as nee* MAGNESIUM OXIDE 400 MG (241.3* Take 1 tablet by mouth once d* COMPOUNDED PRESCRIPTION Please eval and fix any issue* BISACODYL 10 MG RECTAL SUPPOS* 1 Suppository by RECTAL route* ASPIRIN 81 MG TABLET,DELAYED * Take 1 tablet by mouth once d* COMPOUNDED PRESCRIPTION Glucometer high/low test solu* COMPOUNDED PRESCRIPTION Please perform a nocturnal ox* LANCETS Test glucose twice weekly. Dx* BLOOD SUGAR DIAGNOSTIC STRIPS testing twice weekly dx 250* BLOOD-GLUCOSE METER, DRUM-TYP* Test fasting blood sugar 1-2 * BLOOD-GLUCOSE METER KIT 1 Each as needed. One Touch M* BLOOD GLUCOSE CONTROL, NORMAL* Test controls as needed. * COMPOUNDED PRESCRIPTION BIPAP setting: IPAP 22cm wate* Problem List As Of Date 05/31/2018 Noted Resolved Mild intermittent asthma without complication [* Priority: A MALIGN NEOPL PROSTATE [C61] Priority: B More... Type II or unspecified type diabetes mellitus w* 01/18/2014 Allergic rhinitis, cause unspecified [J30.9] INVALID FOR* Priority: B More... Personal history of colonic polyps [Z86.010] Priority: C More... Lumbago [M54.5] INVALID FOR* Priority: M Bilateral leg edema [R60.0] INVALID FOR* Priority: A Carpal tunnel syndrome, bilateral [G56.03] INVALID FOR* Priority: M More... Essential hypertension, benign [I10] INVALID FOR* Priority: A More... Insomnia, unspecified [G47.00] INVALID FOR* Priority: B More... Benign neoplasm of rectum and anal canal [D12.8*INVALID FOR* Priority: C Diverticulosis of colon (without mention of hem*INVALID FOR* Priority: C Hypertrophy of nasal turbinates [J34.3] INVALID FOR* Priority: C More... 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 More... More... EDMOND (obstructive sleep apnea) [G47.33] INVALID FOR* Priority: B More... Mobitz (type) I (Wenckebach's) atrioventricular*INVALID FOR* Priority: A More... More... Mixed hyperlipidemia [E78.2] INVALID FOR* Priority: A More... DVT prophylaxis [DOZ7777] INVALID FOR*07/26/2014 More... More... More... More... More... More... Bradycardia [R00.1] INVALID FOR* Priority: A More... Venous stasis dermatitis of both lower extremit*INVALID FOR* Priority: B Counseling and coordination of care [Z71.89] INVALID FOR*04/12/2015 More... Hypomagnesemia [E83.42] INVALID FOR* Priority: B Diabetic eye exam (HCC) [Z01.00, E11.9] INVALID FOR* Priority: A More... Dry mouth [R68.2] INVALID FOR* Priority: B Noncompliance [Z91.19] INVALID FOR* Gastroesophageal reflux disease without esophag*INVALID FOR* Priority: A Coronary atherosclerosis due to lipid rich plaq*INVALID FOR* Priority: A Morbid obesity due to excess calories (HCC) [E6*INVALID FOR* Priority: B More... Essential tremor [G25.0] INVALID FOR* Priority: B Chronic cough [R05] INVALID FOR* Priority: B Well adult exam [Z00.00] INVALID FOR*01/07/2018 Priority: E More... Controlled type 2 diabetes mellitus with diabet*INVALID FOR* Priority: A Depression [F32.9] INVALID FOR* Priority: A Multiple open wounds of lower leg [S81.809A] INVALID FOR* Priority: D Colon cancer screening [Z12.11] INVALID FOR* Chest pain [R07.9] INVALID FOR* Priority: B More... Second degree heart block [I44.1] INVALID FOR* Priority: A More... Atherosclerosis of coronary artery bypass graft*INVALID FOR* Priority: A More... More... More... More... Hypoxia [R09.02] INVALID FOR* Chronic bilateral low back pain with left-sided*INVALID FOR* Priority: M Bilateral hip pain [M25.551, M25.552] INVALID FOR* Priority: M Paroxysmal atrial fibrillation (HCC) [I48.0] INVALID FOR* Priority: A More... 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 More... 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 More... Current use of proton pump inhibitor [Z79.899] INVALID FOR* More... More... Ulnar neuropathy at elbow of left upper extremi*INVALID FOR* Priority: M More... Hemoptysis [R04.2] INVALID FOR* Priority: A More... At high risk for falls [Z91.81] INVALID FOR* Memory changes [R41.3] INVALID FOR* Priority: B More... Closed compression fracture of L1 lumbar verteb*INVALID FOR* Priority: Mild More... Chronic constipation [K59.09] INVALID FOR* Priority: C Other instructions from your clinician: Resume Miralax taking a capful twice a day. Stir it into one of the drinks with breakfast and dinner. Drink 2 oz of prune juice before bed, as needed. Continue stool softener for now. Prescriptions ordered this encounter Disp Refills Start End POLYETHYLENE GLYCOL 3350 17 GRAM/DOS* 510 g 11 05/31/2018 05/31/2018 Si g up to twice daily with meals. POLYETHYLENE GLYCOL 3350 17 GRAM/DOS* 1 Elvis* 11 05/31/2018 Route: ORAL Sig: Take 17 g by mouth once daily. Take one (1) capful in 8oz of liquid each day. POLYETHYLENE GLYCOL 3350 17 GRAM/DOS* 510 g 11 05/31/2018 05/31/2018 Class: Print RX Cmt: Actual prescription went to the [facility]. This is for you to change the medication record. Si g up to twice daily with meals. COMPOUNDED PRESCRIPTION 1 Elvis* 11 05/31/2018 Class: Print RX Si oz prune juice, before bed, as needed for constipation. Medications Discontinued During This Encounter polyethylene glycol 3350 (MIRALAX, G* 0 01/26/2017 05/31/2018 Class: Med Update Si g up to twice daily as needed prn constipation Disc: Reason for discontinue is not on file. polyethylene glycol 3350 (MIRALAX, G* 510 g 11 05/31/2018 05/31/2018 Si g up to twice daily with meals. Disc: Reason for discontinue is not on file. polyethylene glycol 3350 (MIRALAX, G* 510 g 11 05/31/2018 05/31/2018 Class: Print RX Cmt: Actual prescription went to the [facility]. This is for you to change the medication record. Si g up to twice daily with meals. Disc: Reason for discontinue is not on file. LOS history recorded Follow-up and Disposition History Recorded Encounter Status:Closed by SOHAIL GRIFFITH CNP on 05/31/18 HISTORY PHYSICAL Observed: 05/29/2018 Status: COMPLETED Source: [place] 12:41 PM [facility] REPOSITORY O ID: [id number] Author: Sohail (Maxx) Gladis Service: (none) Author Type: Nurse Practitioner Type: HANDP Filed: 05/31/2018 10:04 AM Note Text: Mayco Demetra Kendrick a 77 year old male who is a consultation requested by RETA Wilson, for an opinion regarding constipation. My final recommendations will be communicated back to the requesting provider by way of shared Medical record. The patient has been seen previously. The patient denies a personal and family history of colon cancer.. The patient was seen by Melly on 05/23/18, leading to this consultation. That note has been reviewed and part as follows: On ROS: GI: See HPI- worsening constipation and abdominal pain. Strange taste in throat. Patient was instructed to increase colace to twice a day. The patient was seen by Dr. Villalobos for EGD and diagnostic colonoscopy 12/29/16, for reported hem + stool. The procedure report has been reviewed and findings as follows: Impression: ? ?- One diminutive polyp in the proximal transverse colon, ?removed with a cold biopsy forceps. Resected and ?retrieved. ?- Diverticulosis in the entire examined colon. ?- The examination was otherwise normal. ?- The distal rectum and anal verge are normal on ?retroflexion view. FINAL DIAGNOSIS Proximal transverse colon, polypectomy (B) ?Hyperplastic polyp. I have reviewed the procedure and pathology reports, as well as the images, with the patient. Presenting complaint: Having a bowel movement about every 2 days. The patient states it's dry and hard to move. He is taking a stool softener twice a day. He tells me that he only taking the Miralax just when I need it. I have stressed that he needs to be taking it twice a day to make the stools less dry. Also suggested drinking a small glass of warm prune juice before bed. The patient complains that the Lasix dries him out terribly. Trying to drink as much water as possible. The patient tells me that the meals are getting better at his home. He as been trying to watch the dairy. He notes occasional bloating. Notes occasional stomach (rubbing lower abdomen) cramping. I have explained that getting his stools softer and moving better will help that. REVIEW OF SYSTEMS: GENERAL: No weight loss, malaise or fevers GI: The patient states that his appetite has been good. He does get hungry. There has been no nausea, no vomiting. He denies dysphagia and denies odynophagia. There has not been indigestion or heartburn. There has not been regurgitation. Bowel habits have been regular. There has not been diarrhea. There has been constipation. The patient denies rectal bleeding. There has not been melena. No new or worsening abdominal pain. ENDOCRINE: Positive for diabetes mellitus on oral agent NEURO: No history of headaches, syncope, paralysis, seizures or tremors All other reviewed and negative other than HPI. PAST MEDICAL HISTORY Diagnosis Date - Abdominal pain 08/11/2014 w some distention. Appears chronic -abdominal ultrasound - ACUTE GASTRITIS W/O HEMORRHAGE 12/21/2006 - Acute on chronic diastolic CHF (congestive heart failure), NYHA class 4 (HCC) 03/08/2014 H/o HFpEF with diastolic dysfunction, ICM 55% EF Presents with CP and SOB Weight gain 30lbs in last 3 months Currently SOB and volume overload, in setting of unstable angina (killip 3) Plan Continue Diuresis As above for possible restrictive CM - ALLERGIC RHINITIS NOS 05/03/2006 - Asthma - ASTHMA UNSPECIFIED - Benign neoplasm of colon - Benign neoplasm of rectum and anal canal - Bilateral leg edema 11/05/2008 - Bradycardia 08/11/2014 Patient with sinus bradycardia with Type 1 Mobitz since 2011 however Pulse dropping to high 30s with dizziness Plan: Place on tele for monitoring EP evaluation for ? Pacemaker with new onset of symptoms 2/2 to relative hypotension vs bradycardia Daily EKGs to evaluate rhythm, still appears to be Mobitz type 1 Keep K and Mag above 4 and 2 respectively - Carpal tunnel syndrome 03/28/2010 - Chest pain 07/26/2014 73 year old male transferred from OSH for Unstable angina, chest pain on a Nitro and heparin Drip. First set of enzymes was negative. No ST-T wave chanes on EKG Mobitz type 1 AV block (chronic) ALVERTO score 5 With associated SOB and Pulmonary edema on CXR (Killip class 3) Found not to have acute plaque rupture ?Restrictive cardiomyopathy Will need LHC (LVEDP) and RHC tomorrow - per Dr. Pepe would like Dr. Randall PLAN NPO at midnight Call Cath Charge in AM to confirm schedule and attending Continue diuresis Additionally: - ASA - Stop plavix - reduce Atorvastatin to 20mg (home dose, last LDL ~55) - Losartan - Chest pain with painful respiration 08/11/2014 Chest heaviness. Unstable angina ? -stat EKG -telemetry - trend Ghazala - Congestive heart failure (HCC) - Controlled type 2 diabetes mellitus with diabetic nephropathy ([facility]) 01/18/2014 - Coronary artery disease - CORONARY ATHEROSCLER UNSPEC VESSEL 05/15/2005 - Coronary atherosclerosis due to lipid rich plaque 09/25/2015 - Depression - DEPRESSIVE DISORDER NEC 02/19/2009 - Diverticulitis - Diverticulosis of colon (without mention of hemorrhage) - DM type 2 (diabetes mellitus, type 2) ([facility]) 09/05/2014 - Edema 11/05/2008 - Essential hypertension, benign 02/02/2011 Essential hypertension, benign Home meds - losartan, norvasc, isosorbide mononitrate, lasix AND torsemide PLAN -hypotensive at OSH so hold bp meds for now. Resume as the bp normalizes. 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 Say Pulmonary 06/2017 and said he would be very high risk for a Bronch due to obesity and known diastolic LV dysfunction. Patient has been back on Xarelto since early November per [facility]. - Hip fracture, right ([facility]) 09/22/2012 Treated medically - History of prostatitis 04/11/2013 - Hyperlipidemia - Hypertension - Hypertrophy of nasal turbinates 07/06/2012 consult with [facility] 06/29/2012 Plan to schedule ablation of inferior turbinates @ [facility]. - Insomnia, unspecified 06/17/2011 OARRS report reviewed October 22, 2011 Matt Taylor MD - Leg swelling - Lumbago 05/11/2007 - MALIGN NEOPL PROSTATE - Memory changes 01/26/2018 Saw psych 04/15/2018 and felt to be normal age related changes. - Mobitz (type) I (Wenckebach's) atrioventricular block 07/26/[address] Eric Go in 2012. Chronic conduction abnormality. does not need a pacemaker. Here with concern for ACS EKG: mobitz type 1, unchanged from prior, no ST-T wave changes BP stable Plan: Monitor Avoiding BB - Morbid obesity 06/02/2011 07/08/2017: H: 72 in, W: 358 lb, BMI 48.54. 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 01/18/2014 - Type II or unspecified type diabetes mellitus without mention of complication, not stated as uncontrolled - Unspecified sleep apnea CPAP 18 with 1L - Urgency of urination 02/01/2014 PAST SURGICAL HISTORY Procedure Laterality Date - CABG, ARTERY-VEIN, TWO 1998 CABG, two grafts - CHOLECYSTECTOMY HX 10/14/2015 gangrenous gallbladder - COLONOSCOP W/ OR W/O BRS SPEC 01/27/2005 Colonoscopy - COLONOSCOP W/ OR W/O BRS SPEC 12/21/2006` repeat in -2011 - COLONOSCOP W/ OR W/O BRS SPEC 05/18/2012 Colonoscopy repeat 5 years - COLONOSCOPY 12/29/2016 repeat 10 yrs - EGD 12/29/2016 - EGD W/O [facility] SPECIMEN W/BX 12/21/06 - EGD W/O OR W/BRUSH/WASH 01/27/2005 EGD - EGD W/O OR W/BRUSH/WASH 11/21/14 EGD - OPEN CORONARY ENDARTERECTOMY 1999 Angioplasty with stent placement - PACEMAKER 2016 - REMOVAL OF TONSILS,<12 Y/O Tonsillectomy - REPAIR RETINAL DETACH, C 10/2010 - REVISE MEDIAN N/CARPAL TUNNEL SURG Right 09/10/2017 Right CTR - REVISE MEDIAN N/CARPAL TUNNEL SURG Left 01/14/2018 Left CTR - REVISE ULNAR NERVE AT ELBOW Right 09/10/2017 Right ulnar nerve decompression - REVISE ULNAR NERVE AT ELBOW Left 01/14/2018 Left unlar nerve decompression - TOTAL HIP REPLACEMENT 2000 Hip replacement, total, right - TOTAL HIP REPLACEMENT 2001 Hip replacement, total, left FAMILY HISTORY Problem Relation Age of Onset - Heart Father - Cancer Mother Lung - Heart Paternal Grandfather - Heart Brother Current Outpatient Prescriptions: Ranitidine HCl 300 mg tablet 1 TABLET BY MOUTH WITH DINNER DX:GERD / NURSE TO REORDER Disp: 90 tablet Rfl: 3 furosemide (LASIX) 40 mg tablet Take 1 tablet by mouth once daily. Disp: 30 tablet Rfl: 11 docusate sodium (DOC-Q-LACE) 100 mg capsule Take 1 capsule by mouth twice daily as needed. Disp: 180 capsule Rfl: 3 aluminum AND magnesium hydroxide-simethicone (MAALOX PLUS EXTRA STRENGTH) 400-400-40 mg/5 mL suspension Take 20 mL by mouth every 6 hours as needed (upset stomach). Disp: 500 mL Rfl: [address] (PROTONIX) 40 mg tablet Take 1 tablet by mouth daily before breakfast. Take on empty stomach, 1/2 hr before meal. Per Gastroenterology Disp: 30 tablet Rfl: 11 traZODone (DESYREL) 50 mg tablet Take 1 tablet by mouth at bedtime as needed (sedation). Disp: 15 tablet Rfl: 5 guaiFENesin (SILTUSSIN SA) 100 mg/5 mL syrup Take 10 mL by mouth three times daily as needed. Disp: Rfl: 0 triamcinolone acetonide (KENALOG) 0.1 % cream Apply to itching rash on chest twice daily ONLY when needed; may keep in room Disp: 454 g Rfl: 2 COMPOUNDED PRESCRIPTION Rollator, # one Dx: I50.33, I25.700, I48.0, J45.20, E66.01, M54.42, M25.551, Z91.81 Disp: 1 Device Rfl: 0 ammonium lactate (LAC-HYDRIN) 12 % cream Apply 1 application to affected area twice daily as needed. Disp: 385 g Rfl: 11 furosemide (LASIX) 80 mg tablet One PO daily in AM Disp: 90 tablet Rfl: 3 oxybutynin (DITROPAN) 5 mg tablet Take 1 tablet by mouth three times daily. Disp: 90 tablet Rfl: 11 glimepiride (AMARYL) 1 mg tablet Take 1 tablet by mouth daily with breakfast. Disp: 90 tablet Rfl: 3 metoprolol tartrate, short acting, (LOPRESSOR) 25 mg tablet Take 1 tablet by mouth every 12 hours. Disp: 180 tablet Rfl: 3 ketoconazole (NIZORAL) 2 % shampoo Use as a body wash, most specifically the chest, daily for itching and flaking; may keep in own shower Disp: 340 mL Rfl: 6 atorvastatin (LIPITOR) 80 mg tablet Take 1 tablet by mouth once daily. Disp: 90 tablet Rfl: 3 tamsulosin ER (FLOMAX) 0.4 mg cp24 Take 1 capsule by mouth every evening. for prostate Disp: 90 capsule Rfl: 3 metFORMIN (GLUCOPHAGE) 500 mg tablet Take 1 tablet by mouth three times daily with meals. Disp: 270 tablet Rfl: 3 nitroglycerin sublingual (NITROSTAT) 0.4 mg SL tablet Take 1 tablet by mouth as needed. for chest pain; dissolve on tongue. If no pain relief call 911. Disp: 2 Bottle of 25 Rfl: 5 magnesium oxide (MAG-OX) 400 mg tablet Take 1 tablet by mouth once daily. Disp: 90 tablet Rfl: 3 COMPOUNDED PRESCRIPTION Please eval and fix any issues with walker.Dx: I50.33, I25.10, E66.01, M54.42, M25.551 Disp: 1 Device Rfl: 0 bisacodyl (DULCOLAX) 10 mg supp 1 Suppository by RECTAL route once daily as needed (for constipation). Disp: Rfl: 0 polyethylene glycol 3350 (MIRALAX, GLYCOLAX) 17 gram/dose powder 17 g up to twice daily as needed prn constipation Disp: Rfl: 0 aspirin, enteric coated (ADULT LOW DOSE ASPIRIN) 81 mg EC tablet Take 1 tablet by mouth once daily. Disp: 90 tablet Rfl: 3 COMPOUNDED PRESCRIPTION Glucometer high/low test solution for accucheck. DX: DM Disp: 1 Bottle Rfl: 3 COMPOUNDED PRESCRIPTION Please perform a nocturnal oximetry on room air on BiPAP. Diagnosis: HypoxiaPlease fax results to [phone] Attn: Glendy Disp: 1 Each Rfl: 0 Lancets (ACCU-CHEK FASTCLIX) lancets Test glucose twice weekly. Dx: 250.00. Insulin Use: no Disp: 100 Each Rfl: 11 blood sugar diagnostic test strip testing twice weekly dx 250.00 insulin no Disp: 50 Strip Rfl: 12 Blood-Glucose Meter, Drum-type (ACCU-CHEK COMPACT PLUS CARE) kit Test fasting blood sugar 1-2 times a week and 2 hrs post meal 1- 2 times a week. Disp: 1 Kit Rfl: 0 Blood-Glucose Meter (ONETOUCH ULTRA 2) monitoring kit 1 Each as needed. One Touch Meter Kit Diagnosis: Diabetes Mellitus Disp: 1 Each Rfl: 0 Blood Glucose Control, Normal (OT ULTRA/FASTTRACK CONTROL) soln Test controls as needed. Disp: 1 Each Rfl: 3 COMPOUNDED PRESCRIPTION BIPAP setting: IPAP 22cm water with heated humidification EPAP setting of 16cm with supplemental oxygen bleed in at 2lt per minute. Mask (per patient preference) and supplies for lifetime. Please add chin strap DX EDMOND 327.23 Disp: 1 Act Rfl: 99 No current facility-administered medications for this visit. SOCIAL HISTORY: Reviewed and unchanged from prior visit PHYSICAL EXAMINATION: Blood pressure 126/67, pulse 99, height 182.9 cm (6'), weight (!) 152 kg (335 lb). General Appearance: Well appearing, alert, in no acute distress, well-hydrated, well nourished. Skin: Skin color, texture, turgor normal, no suspicious rashes or lesions. Eyes: Anicteric sclera. Lungs: Lungs clear to auscultation. Heart: RRR without murmur. Abdomen: .Abdomen rotundt, non-tender. Bowel sounds normal. No masses, organomegaly. Extremities: No deformities, edema. Impression: constipation Plan: Resume Miralax twice a day. May adjust based on outcome. Take prune juice before bed, as needed. May continue the stool softener, for now. He agrees with this plan. I have personally interviewed and examined this patient. I have reviewed the information that the MA entered for this encounter. I spent 25 minutes in the visit, with greater than 50% of the total [id number] time of the visit in counseling and coordination of care. Sohail Griffith RN BUSINESS INTELLIGENCE DIRECTOR.[facility] Observed: 05/26/2018 Status: COMPLETED Source: [place] 12:00 AM [facility] REPOSITORY Patient Update ([facility] [place] ([id number]) 1940 M NFR Date Time Provider Department 05/26/18 BERTRAND LEON During your visit today, we recorded the following information about you: Allergies As of Date: 05/26/2018 Noted Allergy Reaction LISINOPRIL 05/31/2014 14 - Other: See Comments Comments: Metallic taste in mouth. SERTRALINE 05/02/2013 8 - GI Upset Date Reviewed: 05/23/2018 Reviewed by: Raymond) Rogers - Fully Assessed Order(s):CMP (EXTERNAL) [5418150] Order #: [id number] LIPID PANEL (OUTSIDE) [6483615] Order #: [id number] HBA1C (OUTSIDE) [5471189] Order #: [id number] PSA (OUTSIDE) [[id number]] Order #: [id number] Prescriptions as of 05/26/2018 Sig: RANITIDINE 300 MG TABLET 1 TABLET BY MOUTH WITH DINNER* FUROSEMIDE 40 MG TABLET Take 1 tablet by mouth once d* DOCUSATE SODIUM 100 MG CAPSULE Take 1 capsule by mouth twice* ALUMINUM-MAG HYDROXIDE-SIMETH* Take 20 mL by mouth every 6 h* PANTOPRAZOLE 40 MG TABLET,DEL* Take 1 tablet by mouth daily * TRAZODONE 50 MG TABLET Take 1 tablet by mouth at bed* GUAIFENESIN 100 MG/5 ML ORAL * Take 10 mL by mouth three agnes* TRIAMCINOLONE ACETONIDE 0.1 %* Apply to itching rash on ches* COMPOUNDED PRESCRIPTION Rollator, # one Dx: I50.33, I* AMMONIUM LACTATE 12 % TOPICAL* Apply 1 application to affect* FUROSEMIDE 80 MG TABLET One PO daily in AM OXYBUTYNIN CHLORIDE 5 MG TABL* Take 1 tablet by mouth three * GLIMEPIRIDE 1 MG TABLET Take 1 tablet by mouth daily * METOPROLOL TARTRATE 25 MG TAB* Take 1 tablet by mouth every * KETOCONAZOLE 2 % SHAMPOO Use as a body wash, most spec* ATORVASTATIN 80 MG TABLET Take 1 tablet by mouth once d* TAMSULOSIN 0.4 MG CAPSULE Take 1 capsule by mouth every* METFORMIN 500 MG TABLET Take 1 tablet by mouth three * NITROGLYCERIN 0.4 MG SUBLINGU* Take 1 tablet by mouth as nee* MAGNESIUM OXIDE 400 MG (241.3* Take 1 tablet by mouth once d* COMPOUNDED PRESCRIPTION Please eval and fix any issue* BISACODYL 10 MG RECTAL SUPPOS* 1 Suppository by RECTAL route* POLYETHYLENE GLYCOL 3350 17 G* 17 g up to twice daily as nee* ASPIRIN 81 MG TABLET,DELAYED * Take 1 tablet by mouth once d* COMPOUNDED PRESCRIPTION Glucometer high/low test solu* COMPOUNDED PRESCRIPTION Please perform a nocturnal ox* LANCETS Test glucose twice weekly. Dx* BLOOD SUGAR DIAGNOSTIC STRIPS testing twice weekly dx 250* BLOOD-GLUCOSE METER, DRUM-TYP* Test fasting blood sugar 1-2 * BLOOD-GLUCOSE METER KIT 1 Each as needed. One Touch M* BLOOD GLUCOSE CONTROL, NORMAL* Test controls as needed. * COMPOUNDED PRESCRIPTION BIPAP setting: IPAP 22cm wate* Problem List As Of Date 05/26/2018 Noted Resolved Mild intermittent asthma without complication [* Priority: A MALIGN NEOPL PROSTATE [C61] Priority: B More... Type II or unspecified type diabetes mellitus w* 01/18/2014 Allergic rhinitis, cause unspecified [J30.9] INVALID FOR* Priority: B More... Personal history of colonic polyps [Z86.010] Priority: C More... Lumbago [M54.5] INVALID FOR* Priority: M Bilateral leg edema [R60.0] INVALID FOR* Priority: A Carpal tunnel syndrome, bilateral [G56.03] INVALID FOR* Priority: M More... Essential hypertension, benign [I10] INVALID FOR* Priority: A More... Insomnia, unspecified [G47.00] INVALID FOR* Priority: B More... Benign neoplasm of rectum and anal canal [D12.8*INVALID FOR* Priority: C Diverticulosis of colon (without mention of hem*INVALID FOR* Priority: C Hypertrophy of nasal turbinates [J34.3] INVALID FOR* Priority: C More... 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 More... More... EDMOND (obstructive sleep apnea) [G47.33] INVALID FOR* Priority: B More... Mobitz (type) I (Wenckebach's) atrioventricular*INVALID FOR* Priority: A More... More... Mixed hyperlipidemia [E78.2] INVALID FOR* Priority: A More... DVT prophylaxis [BJA4806] INVALID FOR*07/26/2014 More... More... More... More... More... More... Bradycardia [R00.1] INVALID FOR* Priority: A More... Venous stasis dermatitis of both lower extremit*INVALID FOR* Priority: B Counseling and coordination of care [Z71.89] INVALID FOR*04/12/2015 More... Hypomagnesemia [E83.42] INVALID FOR* Priority: B Diabetic eye exam (HCC) [Z01.00, E11.9] INVALID FOR* Priority: A More... Dry mouth [R68.2] INVALID FOR* Priority: B Noncompliance [Z91.19] INVALID FOR* Gastroesophageal reflux disease without esophag*INVALID FOR* Priority: A Coronary atherosclerosis due to lipid rich plaq*INVALID FOR* Priority: A Morbid obesity due to excess calories (HCC) [E6*INVALID FOR* Priority: B More... Essential tremor [G25.0] INVALID FOR* Priority: B Chronic cough [R05] INVALID FOR* Priority: B Well adult exam [Z00.00] INVALID FOR*01/07/2018 Priority: E More... Controlled type 2 diabetes mellitus with diabet*INVALID FOR* Priority: A Depression [F32.9] INVALID FOR* Priority: A Multiple open wounds of lower leg [S81.809A] INVALID FOR* Priority: D Colon cancer screening [Z12.11] INVALID FOR* Chest pain [R07.9] INVALID FOR* Priority: B More... Second degree heart block [I44.1] INVALID FOR* Priority: A More... Atherosclerosis of coronary artery bypass graft*INVALID FOR* Priority: A More... More... More... More... Hypoxia [R09.02] INVALID FOR* Chronic bilateral low back pain with left-sided*INVALID FOR* Priority: M Bilateral hip pain [M25.551, M25.552] INVALID FOR* Priority: M Paroxysmal atrial fibrillation (HCC) [I48.0] INVALID FOR* Priority: A More... 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 More... 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 More... Current use of proton pump inhibitor [Z79.899] INVALID FOR* More... More... Ulnar neuropathy at elbow of left upper extremi*INVALID FOR* Priority: M More... Hemoptysis [R04.2] INVALID FOR* Priority: A More... At high risk for falls [Z91.81] INVALID FOR* Memory changes [R41.3] INVALID FOR* Priority: B More... Closed compression fracture of L1 lumbar verteb*INVALID FOR* Priority: Mild More... Chronic constipation [K59.09] INVALID FOR* Priority: C Encounter Status:Closed by BERTRAND LEON on 05/26/18 PROGRESS Observed: 05/23/2018 Status: COMPLETED Source: [place] 10:27 AM [facility] REPOSITORY O ID: [id number] Author: Nancy Mccloud Service: (none) Author Type: Physician Budget Officer Type: Progress Notes Filed: 05/23/2018 12:24 PM Note Text: Medicare Yearly Visit Medical B eligibilty date n/a Date of last exam n/a PAST MEDICAL HISTORY Diagnosis Date - Abdominal pain 08/11/2014 w some distention. Appears chronic -abdominal ultrasound - ACUTE GASTRITIS W/O HEMORRHAGE 12/21/2006 - Acute on chronic diastolic CHF (congestive heart failure), NYHA class 4 (HCC) 03/08/2014 H/o HFpEF with diastolic dysfunction, ICM 55% EF Presents with CP and SOB Weight gain 30lbs in last 3 months Currently SOB and volume overload, in setting of unstable angina (killip 3) Plan Continue Diuresis As above for possible restrictive CM - ALLERGIC RHINITIS NOS 05/03/2006 - Asthma - ASTHMA UNSPECIFIED - Benign neoplasm of colon - Benign neoplasm of rectum and anal canal - Bilateral leg edema 11/05/2008 - Bradycardia 08/11/2014 Patient with sinus bradycardia with Type 1 Mobitz since 2011 however Pulse dropping to high 30s with dizziness Plan: Place on tele for monitoring EP evaluation for ? Pacemaker with new onset of symptoms 2/2 to relative hypotension vs bradycardia Daily EKGs to evaluate rhythm, still appears to be Mobitz type 1 Keep K and Mag above 4 and 2 respectively - Carpal tunnel syndrome 03/28/2010 - Chest pain 07/26/2014 73 year old male transferred from OSH for Unstable angina, chest pain on a Nitro and heparin Drip. First set of enzymes was negative. No ST-T wave chanes on EKG Mobitz type 1 AV block (chronic) ALVERTO score 5 With associated SOB and Pulmonary edema on CXR (Killip class 3) Found not to have acute plaque rupture ?Restrictive cardiomyopathy Will need LHC (LVEDP) and RHC tomorrow - per Dr. Pepe would like Dr. Randall PLAN NPO at midnight Call Cath Charge in AM to confirm schedule and attending Continue diuresis Additionally: - ASA - Stop plavix - reduce Atorvastatin to 20mg (home dose, last LDL ~55) - Losartan - Chest pain with painful respiration 08/11/2014 Chest heaviness. Unstable angina ? 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 Resume as the bp normalizes. 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 Say Pulmonary 06/2017 and said he would be very high risk for a Bronch due to obesity and known diastolic LV dysfunction. Patient has been back on Xarelto since early November per [facility]. - Hip fracture, right (HCC) 09/22/2012 Treated medically - History of prostatitis 04/11/2013 - Hyperlipidemia - Hypertension - Hypertrophy of nasal turbinates 07/06/2012 consult with [facility] 06/29/2012 Plan to schedule ablation of inferior turbinates @ [facility]. - Insomnia, unspecified 06/17/2011 O[facility] report reviewed October 22, 2011 Matt Taylor MD - Leg swelling - Lumbago 05/11/2007 - MALIGN NEOPL PROSTATE - Memory changes 01/26/2018 Saw psych 04/15/2018 and felt to be normal age related changes. - Mobitz (type) I (Wenckebach's) atrioventricular block 07/26/[address] Eric Go in 2012. Chronic conduction abnormality. does not need a pacemaker. Here with concern for ACS EKG: mobitz type 1, unchanged from prior, no ST-T wave changes BP stable Plan: Monitor Avoiding BB - Morbid obesity 06/02/2011 07/08/2017: H: 72 in, W: 358 lb, BMI 48.54. 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 01/18/2014 - Type II or unspecified type diabetes mellitus without mention of complication, not stated as uncontrolled - Unspecified sleep apnea CPAP 18 with 1L - Urgency of urination 02/01/2014 PAST SURGICAL HISTORY Procedure Laterality Date - CABG, ARTERY-VEIN, TWO 1998 CABG, two grafts - CHOLECYSTECTOMY HX 10/14/2015 gangrenous gallbladder - COLONOSCOP W/ OR W/O BRSH SPEC 01/27/2005 Colonoscopy - COLONOSCOP W/ OR W/O [facility] SPEC 12/21/2006` repeat in -2011 - COLONOSCOP W/ OR W/O [facility] SPEC 05/18/2012 Colonoscopy repeat 5 years - COLONOSCOPY 12/29/2016 repeat 10 yrs - EGD 12/29/2016 - EGD W/O [facility] SPECIMEN W/BX 12/21/06 - EGD W/O OR W/BRUSH/WASH 01/27/2005 EGD - EGD W/O OR W/BRUSH/WASH 11/21/14 EGD - OPEN CORONARY ENDARTERECTOMY 1999 Angioplasty with stent placement - PACEMAKER 2016 - REMOVAL OF TONSILS,<12 Y/O Tonsillectomy - REPAIR RETINAL DETACH, C 10/2010 - REVISE MEDIAN N/CARPAL TUNNEL SURG Right 09/10/2017 Right CTR - REVISE MEDIAN N/CARPAL TUNNEL SURG Left 01/14/2018 Left CTR - REVISE ULNAR NERVE AT ELBOW Right 09/10/2017 Right ulnar nerve decompression - REVISE ULNAR NERVE AT ELBOW Left 01/14/2018 Left unlar nerve decompression - TOTAL HIP REPLACEMENT 2000 Hip replacement, total, right - TOTAL HIP REPLACEMENT 2001 Hip replacement, total, left Lisinopril; Sertraline Medications reviewed: Yes FAMILY HISTORY Problem Relation Age of Onset - Heart Father - Cancer Mother Lung - Heart Paternal Grandfather - Heart Brother SOCIAL HISTORY: Social History Marital status: Single Spouse name: Years of education: Number of children: 0 Occupational History 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 Alcohol use: Yes 31.5 oz/week Cans of Beer (12oz): 7, Mixed Drinks: 14 per week Comment: 2/beer/mixed drink daily-states no ETOH since 09/2017 Drug use: No Sexual activity: No Social History Narrative OARRS report reviewed October 22, 2011 Matt Taylor MD Mayco denies regular aerobic exercise. He watches his diet for sodium, low fat and low cholesterol most of the time. List of current specialists seen: Development Administrator. Pulm End of Live Planning discussed including patients advanced directive wishes: Yes I am willing to follow Mayco's advanced directives. Depression screen He in the past two weeks denies having felt down, depressed, hopeless or with little interest or pleasure in doing things. Functional Ability/Safety Screen 1. Was the patient's timed Up and Go test unsteady or longer than 30 seconds? No 2. Does the patient need help with the phone, transportation, shopping,preparing meals, housework, laundry, medications or managing money? Yes 3. Does your home have rugs in the hallway, lack of grab bars in the bathroom, lack of handrails on the stairs or have poor lighting? No Hearing Evaluationhard of hearing PHYSICAL EXAM BP 118/64 (BP Site: Right Arm, BP Position: Sitting, BP Cuff Size: Large Adult) Pulse 76 Ht 183.3 cm (6' 0.15) Wt (!) 151 kg (333 lb) BMI 44.98 kg/m? Alert and oriented X 3: YES Body mass index is 44.98 kg/m?. ASSESSMENT/PLAN: 77 year old male The following prevention plan was discussed during the office visit and provided to the patient: See below MELLY MCCLOUD PA-C Chief Complaint Patient presents with: Physical Imm/Inj: Flu Vaccine HPI Mayco Kendrick is a 77 year old male who presents here today for Extensive exam. Multiple concerns Past medical history, appointments, medications, allergies reviewed. Previous Medical History PAST MEDICAL HISTORY Diagnosis Date - Abdominal pain 08/11/2014 w some distention. Appears chronic -abdominal ultrasound - ACUTE GASTRITIS W/O HEMORRHAGE 12/21/2006 - Acute on chronic diastolic CHF (congestive heart failure), NYHA class 4 (HCC) 03/08/2014 H/o HFpEF with diastolic dysfunction, ICM 55% EF Presents with CP and SOB Weight gain 30lbs in last 3 months Currently SOB and volume overload, in setting of unstable angina (killip 3) Plan Continue Diuresis As above for possible restrictive CM - ALLERGIC RHINITIS NOS 05/03/2006 - Asthma - ASTHMA UNSPECIFIED - Benign neoplasm of colon - Benign neoplasm of rectum and anal canal - Bilateral leg edema 11/05/2008 - Bradycardia 08/11/2014 Patient with sinus bradycardia with Type 1 Mobitz since 2011 however Pulse dropping to high 30s with dizziness Plan: Place on tele for monitoring EP evaluation for ? Pacemaker with new onset of symptoms 2/2 to relative hypotension vs bradycardia Daily EKGs to evaluate rhythm, still appears to be Mobitz type 1 Keep K and Mag above 4 and 2 respectively - Carpal tunnel syndrome 03/28/2010 - Chest pain 07/26/2014 73 year old male transferred from OSH for Unstable angina, chest pain on a Nitro and heparin Drip. First set of enzymes was negative. No ST-T wave chanes on EKG Mobitz type 1 AV block (chronic) ALVERTO score 5 With associated SOB and Pulmonary edema on CXR (Killip class 3) Found not to have acute plaque rupture ?Restrictive cardiomyopathy Will need LHC (LVEDP) and RHC tomorrow - per Dr. Pepe would like Dr. Randall PLAN NPO at midnight Call Cath Charge in AM to confirm schedule and attending Continue diuresis Additionally: - ASA - Stop plavix - reduce Atorvastatin to 20mg (home dose, last LDL ~55) - Losartan - Chest pain with painful respiration 08/11/2014 Chest heaviness. Unstable angina ? -stat EKG -telemetry - trend Ghazala - Congestive heart failure (HCC) - Controlled type 2 diabetes mellitus with diabetic nephropathy ([facility]) 01/18/2014 - Coronary artery disease - CORONARY ATHEROSCLER UNSPEC VESSEL 05/15/2005 - Coronary atherosclerosis due to lipid rich plaque 09/25/2015 - Depression - DEPRESSIVE DISORDER NEC 02/19/2009 - Diverticulitis - Diverticulosis of colon (without mention of hemorrhage) - DM type 2 (diabetes mellitus, type 2) ([facility]) 09/05/2014 - Edema 11/05/2008 - Essential hypertension, benign 02/02/2011 Essential hypertension, benign Home meds - losartan, norvasc, isosorbide mononitrate, lasix AND torsemide PLAN -hypotensive at OSH so hold bp meds for now. Resume as the bp normalizes. 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 Say Pulmonary 06/2017 and said he would be very high risk for a Bronch due to obesity and known diastolic LV dysfunction. Patient has been back on Xarelto since early November per [facility]. - Hip fracture, right ([facility]) 09/22/2012 Treated medically - History of prostatitis 04/11/2013 - Hyperlipidemia - Hypertension - Hypertrophy of nasal turbinates 07/06/2012 consult with [facility] 06/29/2012 Plan to schedule ablation of inferior turbinates @ [facility]. - Insomnia, unspecified 06/17/2011 OARRS report reviewed October 22, 2011 Matt Taylor MD - Leg swelling - Lumbago 05/11/2007 - MALIGN NEOPL PROSTATE - Memory changes 01/26/2018 Saw psych 04/15/2018 and felt to be normal age related changes. - Mobitz (type) I (Wenckebach's) atrioventricular block 07/26/[address] Eric Go in 2012. Chronic conduction abnormality. does not need a pacemaker. Here with concern for ACS EKG: mobitz type 1, unchanged from prior, no ST-T wave changes BP stable Plan: Monitor Avoiding BB - Morbid obesity 06/02/2011 07/08/2017: H: 72 in, W: 358 lb, BMI 48.54. 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 01/18/2014 - Type II or unspecified type diabetes mellitus without mention of complication, not stated as uncontrolled - Unspecified sleep apnea CPAP 18 with 1L - Urgency of urination 02/01/2014 Previous Surgical History PAST SURGICAL HISTORY Procedure Laterality Date - CABG, ARTERY-VEIN, TWO 1998 CABG, two grafts - CHOLECYSTECTOMY HX 10/14/2015 gangrenous gallbladder - COLONOSCOP W/ OR W/O [facility] SPEC 01/27/2005 Colonoscopy - COLONOSCOP W/ OR W/O [facility] SPEC 12/21/2006` repeat in -2011 - COLONOSCOP W/ OR W/O BRSH SPEC 05/18/2012 Colonoscopy repeat 5 years - COLONOSCOPY 12/29/2016 repeat 10 yrs - EGD 12/29/2016 - EGD W/O [facility] SPECIMEN W/BX 12/21/06 - EGD W/O OR W/BRUSH/WASH 01/27/2005 EGD - EGD W/O OR W/BRUSH/WASH 11/21/14 EGD - OPEN CORONARY ENDARTERECTOMY 1999 Angioplasty with stent placement - PACEMAKER 2017 - REMOVAL OF TONSILS,<12 Y/O Tonsillectomy - REPAIR RETINAL DETACH, C 10/2010 - REVISE MEDIAN N/CARPAL TUNNEL SURG Right 09/10/2017 Right CTR - REVISE MEDIAN N/CARPAL TUNNEL SURG Left 01/14/2018 Left CTR - REVISE ULNAR NERVE AT ELBOW Right 09/10/2017 Right ulnar nerve decompression - REVISE ULNAR NERVE AT ELBOW Left 01/14/2018 Left unlar nerve decompression - TOTAL HIP REPLACEMENT 2000 Hip replacement, total, right - TOTAL HIP REPLACEMENT 2001 Hip replacement, total, left Family History FAMILY HISTORY Problem Relation Age of Onset - Heart Father - Cancer Mother Lung - Heart Paternal Grandfather - Heart Brother Patient Allergies ALLERGIES Allergen Reactions - Lisinopril Other: See Comments Metallic taste in mouth. - Sertraline GI Upset Current Medications Current Outpatient Prescriptions on File Prior to Visit: furosemide (LASIX) 40 mg tablet Take 1 tablet by mouth once daily. Ranitidine HCl 300 mg tablet 1 TABLET BY MOUTH WITH DINNER DX:GERD / NURSE TO REORDER docusate sodium (DOC-Q-LACE) 100 mg capsule Take 1 capsule by mouth twice daily as needed. aluminum AND magnesium hydroxide-simethicone (MAALOX PLUS EXTRA STRENGTH) 400-400-40 mg/5 mL suspension Take 20 mL by mouth every 6 hours as needed (upset stomach). pantoprazole DR (PROTONIX) 40 mg tablet Take 1 tablet by mouth daily before breakfast. Take on empty stomach, 1/2 hr before meal. Per Gastroenterology traZODone (DESYREL) 50 mg tablet Take 1 tablet by mouth at bedtime as needed (sedation). guaiFENesin (SILTUSSIN SA) 100 mg/5 mL syrup Take 10 mL by mouth three times daily as needed. triamcinolone acetonide (KENALOG) 0.1 % cream Apply to itching rash on chest twice daily ONLY when needed; may keep in room COMPOUNDED PRESCRIPTION Rollator, # one Dx: I50.33, I25.700, I48.0, J45.20, E66.01, M54.42, M25.551, Z91.81 ammonium lactate (LAC-HYDRIN) 12 % cream Apply 1 application to affected area twice daily as needed. oxybutynin (DITROPAN) 5 mg tablet Take 1 tablet by mouth three times daily. glimepiride (AMARYL) 1 mg tablet Take 1 tablet by mouth daily with breakfast. metoprolol tartrate, short acting, (LOPRESSOR) 25 mg tablet Take 1 tablet by mouth every 12 hours. ketoconazole (NIZORAL) 2 % shampoo Use as a body wash, most specifically the chest, daily for itching and flaking; may keep in own shower atorvastatin (LIPITOR) 80 mg tablet Take 1 tablet by mouth once daily. metFORMIN (GLUCOPHAGE) 500 mg tablet Take 1 tablet by mouth three times daily with meals. nitroglycerin sublingual (NITROSTAT) 0.4 mg SL tablet Take 1 tablet by mouth as needed. for chest pain; dissolve on tongue. If no pain relief call 911. magnesium oxide (MAG-OX) 400 mg tablet Take 1 tablet by mouth once daily. aspirin, enteric coated (ADULT LOW DOSE ASPIRIN) 81 mg EC tablet Take 1 tablet by mouth once daily. COMPOUNDED PRESCRIPTION Glucometer high/low test solution for accucheck. DX: DM COMPOUNDED PRESCRIPTION Please perform a nocturnal oximetry on room air on BiPAP. Diagnosis: HypoxiaPlease fax results to [phone] Attn: Glendy Lancets (ACCU-CHEK FASTCLIX) lancets Test glucose twice weekly. Dx: 250.00. Insulin Use: no blood sugar diagnostic test strip testing twice weekly dx 250.00 insulin no furosemide (LASIX) 80 mg tablet One PO daily in AM tamsulosin ER (FLOMAX) 0.4 mg cp24 Take 1 capsule by mouth every evening. for prostate COMPOUNDED PRESCRIPTION Please eval and fix any issues with walker.Dx: I50.33, I25.10, E66.01, M54.42, M25.551 bisacodyl (DULCOLAX) 10 mg supp 1 Suppository by RECTAL route once daily as needed (for constipation). polyethylene glycol 3350 (MIRALAX, GLYCOLAX) 17 gram/dose powder 17 g up to twice daily as needed prn constipation Blood-Glucose Meter, Drum-type (ACCU-CHEK COMPACT PLUS CARE) kit Test fasting blood sugar 1-2 times a week and 2 hrs post meal 1- 2 times a week. Blood-Glucose Meter (ONETOUCH ULTRA 2) monitoring kit 1 Each as needed. One Touch Meter Kit Diagnosis: Diabetes Mellitus Blood Glucose Control, Normal (OT ULTRA/FASTTRACK CONTROL) soln Test controls as needed. COMPOUNDED PRESCRIPTION BIPAP setting: IPAP 22cm water with heated humidification EPAP setting of 16cm with supplemental oxygen bleed in at 2lt per minute. Mask (per patient preference) and supplies for lifetime. Please add chin strap DX EDMOND 327.23 No current facility-administered medications on file prior to visit. 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 Alcohol use: Yes 31.5 oz/week Cans of Beer (12oz): 7, Mixed Drinks: 14 per week Comment: 2/beer/mixed drink daily-states no ETOH since 09/2017 Drug use: No Sexual activity: No Social History Narrative OARRS report reviewed October 22, 2011 Matt Taylor MD Review of Symptoms REVIEW OF SYSTEMS GENERAL: No weight loss, malaise or fevers HEENT: Negative for frequent or significant headaches, No changes in hearing or vision, no nose bleeds or other nasal problems, Deviated septum. Patient would like treatment NECK: Negative for lumps, goiter, pain and significant neck swelling RESPIRATORY: Negative for worsening cough, hemoptysis, wheezing, COPD, dyspnea or shortness of breath CARDIOVASCULAR: Negative for worsenint chest pain, leg swelling, hypertension, CHF or palpitations GI: See HPI- worsening constipation and abdominal pain. Strange taste in throat : No history of worsening dysuria, frequency or incontinence SKIN: Irritating lesion on mid back. itches PSYCH: Negative for sleep disturbance, mood disorder and recent psychosocial stressors HEMATOLOGY/LYMPHOLOGY: Negative for prolonged bleeding, bruising easily or swollen nodes ENDOCRINE: Negative for cold or heat intolerance, polyuria, polydipsia and goiter NEURO: No history of headaches, syncope, paralysis, seizures or tremors EXAM: BP 118/64 (BP Site: Right Arm, BP Position: Sitting, BP Cuff Size: Large Adult) Pulse 76 Ht 183.3 cm (6' 0.15) Wt (!) 151 kg (333 lb) BMI 44.98 kg/m? General Appearance: Well appearing, alert, in no acute distress, well-hydrated, well nourished. and Morbidly obese. Skin: warty lesion on left mid back with erythema/irritations noted. With patient verbal consent area treated with cryotherapy with 40sec thaw phase x2.. Eyes: Anicteric sclera. Pupils are equally round and reactive to light. Extraocular movements are intact. . Ears: External ears normal, canals clear, tm's pearly walden. Nose/Sinuses: deviated septum. Nares normal,mucosa normal, no drainage or sinus tenderness. Oropharynx: Lips, mucosa, and tongue normal, teeth and gums normal, oropharynx normal. Neck: Supple, no adenopathy; thyroid symmetric, normal size, no bruits. Lungs: Lungs clear to auscultation. No wheezing, rhonchi, rales. Heart: RRR without murmur, gallop, or rubs. No ectopy. Abdomen: Obese. Normal abdominal exam, Abdomen soft, non-tender. Bowel sounds normal. No masses, organomegaly. Extremities: No deformities, edema, skin discoloration, clubbing or cyanosis. Good capillary refill. . Peripheral Pulses: Normal. Neurologic: Gait normal. Reflexes normal and symmetric. Sensation grossly intact.. Rectal: patient defers exam : patient deferrs exam Health Maintenance List DTAP,TDAP,TD(1 - Tdap) due on 07/31/2006 INFLUENZA(1) due on 04/23/2018 CIELO/ARB MED PRESCRIBED due on 05/23/2018 STATIN MED ADHERENCE due on 05/23/2018 DIABETES MED ADHERENCE due on 05/23/2018 HBA1C due on 07/26/2018 DIABETIC FOOT EXAM due on 09/16/2018 LDL CHOLESTEROL due on 01/24/2019 ANNUAL PCP TEAM CHRONIC DISEASE VISIT due on 02/21/2019 BP CONTROLLED (<130/80) due on 02/21/2019 DILATED RETINAL EXAM due on 04/05/2019 COLORECTAL CANCER SCREENING,SEE MODIFIER due on 12/29/2026 ADULT PREVNAR-13 Completed PNEUMOVAX AGE 65 AND OVER WITH 5YR LOOKBACK Completed Data reviewed Component Latest Ref Rng AND Units 01/24/2018 02/11/2018 02/11/2018 02/18/2018 1:02 PM 2:54 PM NA 136 - 145 mmol/L 141 K 3.5 - 5.1 mmol/L 3.8 Chloride 98 - 107 MEQ/L 103 CO2 21 - 32 MEQ/L 23 Glucose 74 - 106 MG/DL 117 (A) BUN 7 - 18 MG/DL 21 (A) Creatinine 0.6 - 1.3 MG/DL 0.9 GFR mL/MIN 82 Total Protein 6.4 - 8.2 gm/dL 6.5 Albumin 3.2 - 4.6 gm/dL 3.8 Calcium 8.5 - 10.1 mg/dL 8.8 Bili Total 0.2 - 1 mg/dL 0.5 AST 8 - 37 U/L 20 ALT (SGPT) 12 - 78 U/L 20 Alk Phos Total 45 - 117 U/L 87 Cholesterol, Total 200 122 Triglyceride 150 168 (A) HDL CHOLESTEROL 40 25 (A) LDL Cholesterol 70 63 Microalbumin, Random urine <5.0 Creatinine Urine 57.83 Albumin/Creat Ratio 30 0.0 Glucose, Point of Care 74 - 99 mg/dL 121 (A) 121 (A) Hemoglobin A1C 4.3 - 5.6 6.5 (A) ASSESSMENT/PLAN: 1. Medicare annual wellness visit, subsequent - ICD9: V70.0, ICD10: Z00.00 (primary diagnosis) - See below 2. Need for vaccination - ICD9: V05.9, ICD10: Z23 - INFLUENZA SEASONAL HIGH DOSE AGE 65+ 3. Constipation, unspecified constipation type - ICD9: 564.00, ICD10: K59.00 Increase colace to BID Consult GI for continued issues with abdominal pain, reflux and constipation - CONSULT TO GASTROENTEROLOGY 4. MALIGN NEOPL PROSTATE - ICD9: 185, ICD10: C61 Check PSA Return to urology - CONSULT TO UROLOGY - PSA/PROSTSPECAG DIAG 5. Generalized abdominal pain - ICD9: 789.07, ICD10: R10.84 - See above - REstart protonix 7. Deviated septum - ICD9: 470, ICD10: J34.2 patient request - CONSULT TO ENT 8. Bilateral leg edema - ICD9: 782.3, ICD10: R60.0 stable 9. Essential hypertension, benign - ICD9: 401.1, ICD10: I10 - good control - Recommended regular aerobic exercise. - Recommend home blood pressure monitoring, to bring results in on next visit - Goal of BP <130/80 10. Acute on chronic diastolic CHF (congestive heart failure), NYHA class 4 (HCC) - ICD9: 428.33, 428.0, ICD10: I50.33 Follow Cardio 11. Mobitz (type) I (Wenckebach's) atrioventricular block - ICD9: 426.13, ICD10: I44.1 Follow cardio 12. Mixed hyperlipidemia - ICD9: 272.2, ICD10: E78.2 - to be determined upon return of lab results - Continue current medication. - LIPID PANEL BASIC 13. Coronary atherosclerosis due to lipid rich plaque - ICD9: 414.3, ICD10: I25.10, I25.83 Continue with Development Administrator - LIPID PANEL BASIC 14. Controlled type 2 diabetes mellitus with diabetic nephropathy, without long-term current use of insulin (HCC) - ICD9: 250.40, 583.81, ICD10: E11.21 Controlled. - Continue current medications - COMP METABOLIC PANEL - HGB A1C 15. EDMOND (obstructive sleep apnea) - ICD9: 327.23, ICD10: G47.33 16. Venous stasis dermatitis of both lower extremities - ICD9: 454.1, ICD10: I87.2 stable 17. Morbid obesity due to excess calories (HCC) - ICD9: 278.01, ICD10: E66.01 Continue to work on diet 18. Viral warts, unspecified type - ICD9: 078.10, ICD10: B07.9 Treated with cryo 19. Skin lesion - ICD9: 709.9, ICD10: L98.9 See above. 20. Depression Stable Will stay of anticoag due to bleed risk. May continue daily aspirin. Follow up in 3 months for routine with PCP. Time with patient face to face was 10 min for medicare visit and 25 min for ext exam MELLY MCCLOUD PA-C PROGRESS Observed: 05/23/2018 Status: COMPLETED Source: [place] 10:20 AM [facility] HNO ID: [id number] Author: Siomara Bo Ma Service: (none) Author Type: (none) Type: Progress Notes Filed: 05/23/2018 12:24 PM Note Text: 77 year old male here for INACTIVATED INFLUENZA VACCINE. [id number] Season Patient is identified by name and date of : Yes [] CONTRAINDICATIONS color enhanced section Age less than 6 months? No Allergy to eggs, chicken, chicken feathers, or chicken dander? No Allergy to thimerosal (a preservative) or formaldehyde, gelatin? No History of severe reaction to any vaccine component or a previous dose of influenza vaccination? No History of Guillain-Exchange Syndrome within 6 weeks after a previous influenza vaccine? No Patient is not moderately or severely ill? No Current temperature greater or equal to 100.4F? No History of Bone Marrow Transplant prior 6 months or solid organ transplant in the past 3 months ? No History of fainting after a prior injection or medical procedure? No- ? If patient has fainted in the past, the CDC recommends sitting or lying down for 15 minutes after the vaccination. [] VERIFICATION color enhanced section Was the answer Yes for any of the above contraindications? No contraindications present. Acceptable to proceed with vaccine. Patient/guardian agrees the above answers are true to the best of their knowledge? Yes Flu vaccine information sheet given? Yes See immunization activity in [facility] for details of immunizations adminstered today. Patient age: [age] year old For The Flu Season 6-35 months old: Fluzone 0.25 ml - IM (Preservative Free) 3 years of age: Fluzone 0.5 ml - IM (Preservative Free) 3 years and older: Fluzone 0.5 ml- IM-(with Preservatives) 65+ years old: 2-49 years old Fluzone High-Dose 0.5 ml - IM (Preservative Free) FLUMIST- intranasal REMEMBER: If patient is less than 9 years of age and this is the first vaccine of Influenza to be received in any flu season, they should receive a second dose in one months time. CNOV Observed: 05/23/2018 Status: COMPLETED Source: [place] 10:20 AM [facility] Office Visit (FAMPWS) MAYCO KENDRICK ([id number]) 1940 M NFR Date Time Provider Department 05/23/18 10:20 AM MELLY MCCLOUD(LORI) FAMPWS During your visit today, we recorded the following information about you: Pulse Blood pressure Weight Height 76/minute 118/64 151 kg 1.833 m Siomara Bo Ma 05/23/2018 12:24 PM Signed 77 year old male here for INACTIVATED INFLUENZA VACCINE. [id number] Season Patient is identified by name and date of : Yes [] CONTRAINDICATIONS color enhanced section Age less than 6 months? No Allergy to eggs, chicken, chicken feathers, or chicken dander? No Allergy to thimerosal (a preservative) or formaldehyde, gelatin? No History of severe reaction to any vaccine component or a previous dose of influenza vaccination? No History of Guillain-Exchange Syndrome within 6 weeks after a previous influenza vaccine? No Patient is not moderately or severely ill? No Current temperature greater or equal to 100.4F? No History of Bone Marrow Transplant prior 6 months or solid organ transplant in the past 3 months ? No History of fainting after a prior injection or medical procedure? No- ? If patient has fainted in the past, the CDC recommends sitting or lying down for 15 minutes after the vaccination. [] VERIFICATION color enhanced section Was the answer Yes for any of the above contraindications? No contraindications present. Acceptable to proceed with vaccine. Patient/guardian agrees the above answers are true to the best of their knowledge? Yes Flu vaccine information sheet given? Yes See immunization activity in [facility] for details of immunizations adminstered today. Patient age: [age] year old For The 2969-7691 Flu Season 6-35 months old: Fluzone 0.25 ml - IM (Preservative Free) 3 years of age: Fluzone 0.5 ml - IM (Preservative Free) 3 years and older: Fluzone 0.5 ml- IM-(with Preservatives) 65+ years old: 2-49 years old Fluzone High-Dose 0.5 ml - IM (Preservative Free) FLUMIST- intranasal REMEMBER: If patient is less than 9 years of age and this is the first vaccine of Influenza to be received in any flu season, they should receive a second dose in one months time. MELLY MCCLOUD PA-C 05/23/2018 12:24 PM Signed Medicare Yearly Visit Medical B eligibilty date n/a Date of last exam n/a PAST MEDICAL HISTORY Diagnosis Date - Abdominal pain 08/11/2014 w some distention. Appears chronic -abdominal ultrasound - ACUTE GASTRITIS W/O HEMORRHAGE 12/21/2006 - Acute on chronic diastolic CHF (congestive heart failure), NYHA class 4 (HCC) 03/08/2014 H/o HFpEF with diastolic dysfunction, ICM 55% EF Presents with CP and SOB Weight gain 30lbs in last 3 months Currently SOB and volume overload, in setting of unstable angina (killip 3) Plan Continue Diuresis As above for possible restrictive CM - ALLERGIC RHINITIS NOS 05/03/2006 - Asthma - ASTHMA UNSPECIFIED - Benign neoplasm of colon - Benign neoplasm of rectum and anal canal - Bilateral leg edema 11/05/2008 - Bradycardia 08/11/2014 Patient with sinus bradycardia with Type 1 Mobitz since 2011 however Pulse dropping to high 30s with dizziness Plan: Place on tele for monitoring EP evaluation for ? Pacemaker with new onset of symptoms 2/2 to relative hypotension vs bradycardia Daily EKGs to evaluate rhythm, still appears to be Mobitz type 1 Keep K and Mag above 4 and 2 respectively - Carpal tunnel syndrome 03/28/2010 - Chest pain 07/26/2014 73 year old male transferred from OSH for Unstable angina, chest pain on a Nitro and heparin Drip. First set of enzymes was negative. No ST-T wave chanes on EKG Mobitz type 1 AV block (chronic) ALVERTO score 5 With associated SOB and Pulmonary edema on CXR (Killip class 3) Found not to have acute plaque rupture ?Restrictive cardiomyopathy Will need LHC (LVEDP) and RHC tomorrow - per Dr. Pepe would like Dr. Randall PLAN NPO at midnight Call Cath Charge in AM to confirm schedule and attending Continue diuresis Additionally: - ASA - Stop plavix - reduce Atorvastatin to 20mg (home dose, last LDL ~55) - Losartan - Chest pain with painful respiration 08/11/2014 Chest heaviness. Unstable angina ? 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 Resume as the bp normalizes. 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 Say Pulmonary 06/2017 and said he would be very high risk for a Bronch due to obesity and known diastolic LV dysfunction. Patient has been back on Xarelto since early November per [facility]. - Hip fracture, right ([facility]) 09/22/2012 Treated medically - History of prostatitis 04/11/2013 - Hyperlipidemia - Hypertension - Hypertrophy of nasal turbinates 07/06/2012 consult with [facility] 06/29/2012 Plan to schedule ablation of inferior turbinates @ [facility]. - Insomnia, unspecified 06/17/2011 OARRS report reviewed October 22, 2011 Matt Taylor MD - Leg swelling - Lumbago 05/11/2007 - MALIGN NEOPL PROSTATE - Memory changes 01/26/2018 Saw psych 04/15/2018 and felt to be normal age related changes. - Mobitz (type) I (Wenckebach's) atrioventricular block 07/26/[address] Eric Go in 2012. Chronic conduction abnormality. does not need a pacemaker. Here with concern for ACS EKG: mobitz type 1, unchanged from prior, no ST-T wave changes BP stable Plan: Monitor Avoiding BB - Morbid obesity 06/02/2011 07/08/2017: H: 72 in, W: 358 lb, BMI 48.54. 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 01/18/2014 - Type II or unspecified type diabetes mellitus without mention of complication, not stated as uncontrolled - Unspecified sleep apnea CPAP 18 with 1L - Urgency of urination 02/01/2014 PAST SURGICAL HISTORY Procedure Laterality Date - CABG, ARTERY-VEIN, TWO 1998 CABG, two grafts - CHOLECYSTECTOMY HX 10/14/2015 gangrenous gallbladder - COLONOSCOP W/ OR W/O [facility] SPEC 01/27/2005 Colonoscopy - COLONOSCOP W/ OR W/O [facility] SPEC 12/21/2006` repeat in -2011 - COLONOSCOP W/ OR W/O [facility] SPEC 05/18/2012 Colonoscopy repeat 5 years - COLONOSCOPY 12/29/2016 repeat 10 yrs - EGD 12/29/2016 - EGD W/O [facility] SPECIMEN W/BX 12/21/06 - EGD W/O OR W/BRUSH/WASH 01/27/2005 EGD - EGD W/O OR W/BRUSH/WASH 11/21/14 EGD - OPEN CORONARY ENDARTERECTOMY 1999 Angioplasty with stent placement - PACEMAKER 2016 - REMOVAL OF TONSILS,<12 Y/O Tonsillectomy - REPAIR RETINAL DETACH, C 10/2010 - REVISE MEDIAN N/CARPAL TUNNEL SURG Right 09/10/2017 Right CTR - REVISE MEDIAN N/CARPAL TUNNEL SURG Left 01/14/2018 Left CTR - REVISE ULNAR NERVE AT ELBOW Right 09/10/2017 Right ulnar nerve decompression - REVISE ULNAR NERVE AT ELBOW Left 01/14/2018 Left unlar nerve decompression - TOTAL HIP REPLACEMENT 2000 Hip replacement, total, right - TOTAL HIP REPLACEMENT 2002 Hip replacement, total, left Lisinopril; Sertraline Medications reviewed: Yes FAMILY HISTORY Problem Relation Age of Onset - Heart Father - Cancer Mother Lung - Heart Paternal Grandfather - Heart Brother SOCIAL HISTORY: Social History Marital status: Single Spouse name: Years of education: Number of children: 0 Occupational History 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 Alcohol use: Yes 31.5 oz/week Cans of Beer (12oz): 7, Mixed Drinks: 14 per week Comment: 2/beer/mixed drink daily-states no ETOH since 09/2017 Drug use: No Sexual activity: No Social History Narrative OARRS report reviewed October 22, 2011 Matt Taylor MD Mayco denies regular aerobic exercise. He watches his diet for sodium, low fat and low cholesterol most of the time. List of current specialists seen: Development Administrator. Pulm End of Live Planning discussed including patients advanced directive wishes: Yes I am willing to follow Mayco's advanced directives. Depression screen He in the past two weeks denies having felt down, depressed, hopeless or with little interest or pleasure in doing things. Functional Ability/Safety Screen 1. Was the patient's timed Up and Go test unsteady or longer than 30 seconds? No 2. Does the patient need help with the phone, transportation, shopping,preparing meals, housework, laundry, medications or managing money? Yes 3. Does your home have rugs in the hallway, lack of grab bars in the bathroom, lack of handrails on the stairs or have poor lighting? No Hearing Evaluationhard of hearing PHYSICAL EXAM BP 118/64 (BP Site: Right Arm, BP Position: Sitting, BP Cuff Size: Large Adult) Pulse 76 Ht 183.3 cm (6' 0.15) Wt (!) 151 kg (333 lb) BMI 44.98 kg/m? Alert and oriented X 3: YES Body mass index is 44.98 kg/m?. ASSESSMENT/PLAN: 77 year old male The following prevention plan was discussed during the office visit and provided to the patient: See below MELLY MCCLOUD PA-C Chief Complaint Patient presents with: Physical Imm/Inj: Flu Vaccine HPI Mayco Kendrick is a 77 year old male who presents here today for Extensive exam. Multiple concerns Past medical history, appointments, medications, allergies reviewed. Previous Medical History PAST MEDICAL HISTORY Diagnosis Date - Abdominal pain 08/11/2014 w some distention. Appears chronic -abdominal ultrasound - ACUTE GASTRITIS W/O HEMORRHAGE 12/21/2006 - Acute on chronic diastolic CHF (congestive heart failure), NYHA class 4 (HCC) 03/08/2014 H/o HFpEF with diastolic dysfunction, ICM 55% EF Presents with CP and SOB Weight gain 30lbs in last 3 months Currently SOB and volume overload, in setting of unstable angina (killip 3) Plan Continue Diuresis As above for possible restrictive CM - ALLERGIC RHINITIS NOS 05/03/2006 - Asthma - ASTHMA UNSPECIFIED - Benign neoplasm of colon - Benign neoplasm of rectum and anal canal - Bilateral leg edema 11/05/2008 - Bradycardia 08/11/2014 Patient with sinus bradycardia with Type 1 Mobitz since 2011 however Pulse dropping to high 30s with dizziness Plan: Place on tele for monitoring EP evaluation for ? Pacemaker with new onset of symptoms 2/2 to relative hypotension vs bradycardia Daily EKGs to evaluate rhythm, still appears to be Mobitz type 1 Keep K and Mag above 4 and 2 respectively - Carpal tunnel syndrome 03/28/2010 - Chest pain 07/26/2014 73 year old male transferred from OSH for Unstable angina, chest pain on a Nitro and heparin Drip. First set of enzymes was negative. No ST-T wave chanes on EKG Mobitz type 1 AV block (chronic) ALVERTO score 5 With associated SOB and Pulmonary edema on CXR (Killip class 3) Found not to have acute plaque rupture ?Restrictive cardiomyopathy Will need LHC (LVEDP) and RHC tomorrow - per Dr. Pepe would like Dr. Randall PLAN NPO at midnight Call Cath Charge in AM to confirm schedule and attending Continue diuresis Additionally: - ASA - Stop plavix - reduce Atorvastatin to 20mg (home dose, last LDL ~55) - Losartan - Chest pain with painful respiration 08/11/2014 Chest heaviness. Unstable angina ? 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 Resume as the bp normalizes. 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 Say Pulmonary 06/2017 and said he would be very high risk for a Bronch due to obesity and known diastolic LV dysfunction. Patient has been back on Xarelto since early November per [facility]. - Hip fracture, right ([facility]) 09/22/2012 Treated medically - History of prostatitis 04/11/2013 - Hyperlipidemia - Hypertension - Hypertrophy of nasal turbinates 07/06/2012 consult with Bian[facility] ENT 06/29/2012 Plan to schedule ablation of inferior turbinates @ [facility]. - Insomnia, unspecified 06/17/2011 OARRS report reviewed October 22, 2011 Matt Taylor MD - Leg swelling - Lumbago 05/11/2007 - MALIGN NEOPL PROSTATE - Memory changes 01/26/2018 Saw psych 04/15/2018 and felt to be normal age related changes. - Mobitz (type) I (Wenckebach's) atrioventricular block 07/26/[address] Eric Go in 2012. Chronic conduction abnormality. does not need a pacemaker. Here with concern for ACS EKG: mobitz type 1, unchanged from prior, no ST-T wave changes BP stable Plan: Monitor Avoiding BB - Morbid obesity 06/02/2011 07/08/2017: H: 72 in, W: 358 lb, BMI 48.54. 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 01/18/2014 - Type II or unspecified type diabetes mellitus without mention of complication, not stated as uncontrolled - Unspecified sleep apnea CPAP 18 with 1L - Urgency of urination 02/01/2014 Previous Surgical History PAST SURGICAL HISTORY Procedure Laterality Date - CABG, ARTERY-VEIN, TWO 1998 CABG, two grafts - CHOLECYSTECTOMY HX 10/14/2015 gangrenous gallbladder - COLONOSCOP W/ OR W/O [facility] SPEC 01/27/2005 Colonoscopy - COLONOSCOP W/ OR W/O [facility]RS SPEC 12/21/2006` repeat in -2011 - COLONOSCOP W/ OR W/O BRS SPEC 05/18/2012 Colonoscopy repeat 5 years - COLONOSCOPY 12/29/2016 repeat 10 yrs - EGD 12/29/2016 - EGD W/O [facility] SPECIMEN W/BX 12/21/06 - EGD W/O OR W/BRUSH/WASH 01/27/2005 EGD - EGD W/O OR W/BRUSH/WASH 11/21/14 EGD - OPEN CORONARY ENDARTERECTOMY 1999 Angioplasty with stent placement - PACEMAKER 2016 - REMOVAL OF TONSILS,<12 Y/O Tonsillectomy - REPAIR RETINAL DETACH, C 10/2010 - REVISE MEDIAN N/CARPAL TUNNEL SURG Right 09/10/2017 Right CTR - REVISE MEDIAN N/CARPAL TUNNEL SURG Left 01/14/2018 Left CTR - REVISE ULNAR NERVE AT ELBOW Right 09/10/2017 Right ulnar nerve decompression - REVISE ULNAR NERVE AT ELBOW Left 01/14/2018 Left unlar nerve decompression - TOTAL HIP REPLACEMENT 2001 Hip replacement, total, right - TOTAL HIP REPLACEMENT 2002 Hip replacement, total, left Family History FAMILY HISTORY Problem Relation Age of Onset - Heart Father - Cancer Mother Lung - Heart Paternal Grandfather - Heart Brother Patient Allergies ALLERGIES Allergen Reactions - Lisinopril Other: See Comments Metallic taste in mouth. - Sertraline GI Upset Current Medications Current Outpatient Prescriptions on File Prior to Visit: furosemide (LASIX) 40 mg tablet Take 1 tablet by mouth once daily. Ranitidine HCl 300 mg tablet 1 TABLET BY MOUTH WITH DINNER DX:GERD / NURSE TO REORDER docusate sodium (DOC-Q-LACE) 100 mg capsule Take 1 capsule by mouth twice daily as needed. aluminum AND magnesium hydroxide-simethicone (MAALOX PLUS EXTRA STRENGTH) 400-400-40 mg/5 mL suspension Take 20 mL by mouth every 6 hours as needed (upset stomach). pantoprazole DR (PROTONIX) 40 mg tablet Take 1 tablet by mouth daily before breakfast. Take on empty stomach, 1/2 hr before meal. Per Gastroenterology traZODone (DESYREL) 50 mg tablet Take 1 tablet by mouth at bedtime as needed (sedation). guaiFENesin (SILTUSSIN SA) 100 mg/5 mL syrup Take 10 mL by mouth three times daily as needed. triamcinolone acetonide (KENALOG) 0.1 % cream Apply to itching rash on chest twice daily ONLY when needed; may keep in room COMPOUNDED PRESCRIPTION Rollator, # one Dx: I50.33, I25.700, I48.0, J45.20, E66.01, M54.42, M25.551, Z91.81 ammonium lactate (LAC-HYDRIN) 12 % cream Apply 1 application to affected area twice daily as needed. oxybutynin (DITROPAN) 5 mg tablet Take 1 tablet by mouth three times daily. glimepiride (AMARYL) 1 mg tablet Take 1 tablet by mouth daily with breakfast. metoprolol tartrate, short acting, (LOPRESSOR) 25 mg tablet Take 1 tablet by mouth every 12 hours. ketoconazole (NIZORAL) 2 % shampoo Use as a body wash, most specifically the chest, daily for itching and flaking; may keep in own shower atorvastatin (LIPITOR) 80 mg tablet Take 1 tablet by mouth once daily. metFORMIN (GLUCOPHAGE) 500 mg tablet Take 1 tablet by mouth three times daily with meals. nitroglycerin sublingual (NITROSTAT) 0.4 mg SL tablet Take 1 tablet by mouth as needed. for chest pain; dissolve on tongue. If no pain relief call 911. magnesium oxide (MAG-OX) 400 mg tablet Take 1 tablet by mouth once daily. aspirin, enteric coated (ADULT LOW DOSE ASPIRIN) 81 mg EC tablet Take 1 tablet by mouth once daily. COMPOUNDED PRESCRIPTION Glucometer high/low test solution for accucheck. DX: DM COMPOUNDED PRESCRIPTION Please perform a nocturnal oximetry on room air on BiPAP. Diagnosis: HypoxiaPlease fax results to [phone] Attn: Glendy Lancets (ACCU-CHEK FASTCLIX) lancets Test glucose twice weekly. Dx: 250.00. Insulin Use: no blood sugar diagnostic test strip testing twice weekly dx 250.00 insulin no furosemide (LASIX) 80 mg tablet One PO daily in AM tamsulosin ER (FLOMAX) 0.4 mg cp24 Take 1 capsule by mouth every evening. for prostate COMPOUNDED PRESCRIPTION Please eval and fix any issues with walker.Dx: I50.33, I25.10, E66.01, M54.42, M25.551 bisacodyl (DULCOLAX) 10 mg supp 1 Suppository by RECTAL route once daily as needed (for constipation). polyethylene glycol 3350 (MIRALAX, GLYCOLAX) 17 gram/dose powder 17 g up to twice daily as needed prn constipation Blood-Glucose Meter, Drum-type (ACCU-CHEK COMPACT PLUS CARE) kit Test fasting blood sugar 1-2 times a week and 2 hrs post meal 1-2 times a week. Blood-Glucose Meter (ONETOUCH ULTRA 2) monitoring kit 1 Each as needed. One Touch Meter Kit Diagnosis: Diabetes Mellitus Blood Glucose Control, Normal (OT ULTRA/FASTTRACK CONTROL) soln Test controls as needed. COMPOUNDED PRESCRIPTION BIPAP setting: IPAP 22cm water with heated humidification EPAP setting of 16cm with supplemental oxygen bleed in at 2lt per minute. Mask (per patient preference) and supplies for lifetime. Please add chin strap DX EDMOND 327.23 No current facility-administered medications on file prior to visit. 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 Alcohol use: Yes 31.5 oz/week Cans of Beer (12oz): 7, Mixed Drinks: 14 per week Comment: 2/beer/mixed drink daily-states no ETOH since 09/2017 Drug use: No Sexual activity: No Social History Narrative OARRS report reviewed October 22, 2011 Matt Taylor MD Review of Symptoms REVIEW OF SYSTEMS GENERAL: No weight loss, malaise or fevers HEENT: Negative for frequent or significant headaches, No changes in hearing or vision, no nose bleeds or other nasal problems, Deviated septum. Patient would like treatment NECK: Negative for lumps, goiter, pain and significant neck swelling RESPIRATORY: Negative for worsening cough, hemoptysis, wheezing, COPD, dyspnea or shortness of breath CARDIOVASCULAR: Negative for worsenint chest pain, leg swelling, hypertension, CHF or palpitations GI: See HPI- worsening constipation and abdominal pain. Strange taste in throat : No history of worsening dysuria, frequency or incontinence SKIN: Irritating lesion on mid back. itches PSYCH: Negative for sleep disturbance, mood disorder and recent psychosocial stressors HEMATOLOGY/LYMPHOLOGY: Negative for prolonged bleeding, bruising easily or swollen nodes ENDOCRINE: Negative for cold or heat intolerance, polyuria, polydipsia and goiter NEURO: No history of headaches, syncope, paralysis, seizures or tremors EXAM: BP 118/64 (BP Site: Right Arm, BP Position: Sitting, BP Cuff Size: Large Adult) Pulse 76 Ht 183.3 cm (6' 0.15) Wt (!) 151 kg (333 lb) BMI 44.98 kg/m? General Appearance: Well appearing, alert, in no acute distress, well-hydrated, well nourished. and Morbidly obese. Skin: warty lesion on left mid back with erythema/irritations noted. With patient verbal consent area treated with cryotherapy with 40sec thaw phase x2.. Eyes: Anicteric sclera. Pupils are equally round and reactive to light. Extraocular movements are intact. . Ears: External ears normal, canals clear, tm's pearly walden. Nose/Sinuses: deviated septum. Nares normal,mucosa normal, no drainage or sinus tenderness. Oropharynx: Lips, mucosa, and tongue normal, teeth and gums normal, oropharynx normal. Neck: Supple, no adenopathy; thyroid symmetric, normal size, no bruits. Lungs: Lungs clear to auscultation. No wheezing, rhonchi, rales. Heart: RRR without murmur, gallop, or rubs. No ectopy. Abdomen: Obese. Normal abdominal exam, Abdomen soft, non-tender. Bowel sounds normal. No masses, organomegaly. Extremities: No deformities, edema, skin discoloration, clubbing or cyanosis. Good capillary refill. . Peripheral Pulses: Normal. Neurologic: Gait normal. Reflexes normal and symmetric. Sensation grossly intact.. Rectal: patient defers exam : patient deferrs exam Health Maintenance List DTAP,TDAP,TD(1 - Tdap) due on 07/31/2006 INFLUENZA(1) due on 04/23/2018 CIELO/ARB MED PRESCRIBED due on 05/23/2018 STATIN MED ADHERENCE due on 05/23/2018 DIABETES MED ADHERENCE due on 05/23/2018 HBA1C due on 07/26/2018 DIABETIC FOOT EXAM due on 09/16/2018 LDL CHOLESTEROL due on 01/24/2019 ANNUAL PCP TEAM CHRONIC DISEASE VISIT due on 02/21/2019 BP CONTROLLED (<130/80) due on 02/21/2019 DILATED RETINAL EXAM due on 04/05/2019 COLORECTAL CANCER SCREENING,SEE MODIFIER due on 12/29/2026 ADULT PREVNAR-13 Completed PNEUMOVAX AGE 65 AND OVER WITH 5YR LOOKBACK Completed Data reviewed Component Latest Ref Rng AND Units 01/24/2018 02/11/2018 02/11/2018 02/18/2018 1:02 PM 2:54 PM NA 136 - 145 mmol/L 141 K 3.5 - 5.1 mmol/L 3.8 Chloride 98 - 107 MEQ/L 103 CO2 21 - 32 MEQ/L 23 Glucose 74 - 106 MG/DL 117 (A) BUN 7 - 18 MG/DL 21 (A) Creatinine 0.6 - 1.3 MG/DL 0.9 GFR mL/MIN 82 Total Protein 6.4 - 8.2 gm/dL 6.5 Albumin 3.2 - 4.6 gm/dL 3.8 Calcium 8.5 - 10.1 mg/dL 8.8 Bili Total 0.2 - 1 mg/dL 0.5 AST 8 - 37 U/L 20 ALT (SGPT) 12 - 78 U/L 20 Alk Phos Total 45 - 117 U/L 87 Cholesterol, Total 200 122 Triglyceride 150 168 (A) HDL CHOLESTEROL 40 25 (A) LDL Cholesterol 70 63 Microalbumin, Random urine <5.0 Creatinine Urine 57.83 Albumin/Creat Ratio 30 0.0 Glucose, Point of Care 74 - 99 mg/dL 121 (A) 121 (A) Hemoglobin A1C 4.3 - 5.6 6.5 (A) ASSESSMENT/PLAN: 1. Medicare annual wellness visit, subsequent - ICD9: V70.0, ICD10: Z00.00 (primary diagnosis) - See below 2. Need for vaccination - ICD9: V05.9, ICD10: Z23 - INFLUENZA SEASONAL HIGH DOSE AGE 65+ 3. Constipation, unspecified constipation type - ICD9: 564.00, ICD10: K59.00 Increase colace to BID Consult GI for continued issues with abdominal pain, reflux and constipation - CONSULT TO GASTROENTEROLOGY 4. MALIGN NEOPL PROSTATE - ICD9: 185, ICD10: C61 Check PSA Return to urology - CONSULT TO UROLOGY - PSA/PROSTSPECAG DIAG 5. Generalized abdominal pain - ICD9: 789.07, ICD10: R10.84 - See above - REstart protonix 7. Deviated septum - ICD9: 470, ICD10: J34.2 patient request - CONSULT TO ENT 8. Bilateral leg edema - ICD9: 782.3, ICD10: R60.0 stable 9. Essential hypertension, benign - ICD9: 401.1, ICD10: I10 - good control - Recommended regular aerobic exercise. - Recommend home blood pressure monitoring, to bring results in on next visit - Goal of BP <130/80 10. Acute on chronic diastolic CHF (congestive heart failure), NYHA class 4 (HCC) - ICD9: 428.33, 428.0, ICD10: I50.33 Follow Cardio 11. Mobitz (type) I (Wenckebach's) atrioventricular block - ICD9: 426.13, ICD10: I44.1 Follow cardio 12. Mixed hyperlipidemia - ICD9: 272.2, ICD10: E78.2 - to be determined upon return of lab results - Continue current medication. - LIPID PANEL BASIC 13. Coronary atherosclerosis due to lipid rich plaque - ICD9: 414.3, ICD10: I25.10, I25.83 Continue with Development Administrator - LIPID PANEL BASIC 14. Controlled type 2 diabetes mellitus with diabetic nephropathy, without long-term current use of insulin (HCC) - ICD9: 250.40, 583.81, ICD10: E11.21 Controlled. - Continue current medications - COMP METABOLIC PANEL - HGB A1C 15. EDMOND (obstructive sleep apnea) - ICD9: 327.23, ICD10: G47.33 16. Venous stasis dermatitis of both lower extremities - ICD9: 454.1, ICD10: I87.2 stable 17. Morbid obesity due to excess calories (HCC) - ICD9: 278.01, ICD10: E66.01 Continue to work on diet 18. Viral warts, unspecified type - ICD9: 078.10, ICD10: B07.9 Treated with cryo 19. Skin lesion - ICD9: 709.9, ICD10: L98.9 See above. 20. Depression Stable Will stay of anticoag due to bleed risk. May continue daily aspirin. Follow up in 3 months for routine with PCP. Time with patient face to face was 10 min for medicare visit and 25 min for ext exam LORI WILSON PA-C 05/23/2018 11:14 AM Addendum Start taking the colace twice a day Restart protonix. Fasting labs Follow up in 3 months. Referring Provider: BERTRAND LEON [[id number]] Allergies As of Date: 05/23/2018 Noted Allergy Reaction LISINOPRIL 05/31/2014 14 - Other: See Comments Comments: Metallic taste in mouth. SERTRALINE 05/02/2013 8 - GI Upset Date Reviewed: 05/23/2018 Reviewed by: Raymond) Rogers - Fully Assessed Reason for Visit: Physical [83] Imm/Inj [58] Cmt: Flu Vaccine Reason For Visit History Recorded Primary Visit Diagnosis:Medicare annual wellness visit, subsequent [Z00.00] Other Visit Diagnoses:Need for vaccination [Z23] Constipation, unspecified constipation type [K59.00] MALIGN NEOPL PROSTATE [C61] Generalized abdominal pain [R10.84] Deviated septum [J34.2] Bilateral leg edema [R60.0] Essential hypertension, benign [I10] Acute on chronic diastolic CHF (congestive heart failure), NYHA class 4 (HCC) [I50.33] Mobitz (type) I (Wenckebach's) atrioventricular block [I44.1] Mixed hyperlipidemia [E78.2] Coronary atherosclerosis due to lipid rich plaque [I25.10, I25.83] Controlled type 2 diabetes mellitus with diabetic nephropathy, without long-term current use of insulin ([facility]) [E11.21] EDMOND (obstructive sleep apnea) [G47.33] Venous stasis dermatitis of both lower extremities [I87.2] Morbid obesity due to excess calories ([facility]) [E66.01] Viral warts, unspecified type [B07.9] Skin lesion [L98.9] Depression, unspecified depression type [F32.9] Order(s):INFLUENZA SEASONAL HIGH DOSE AGE 65+ [[id number]] Order #: [id number] CONSULT TO GASTROENTEROLOGY [9010] Order #: [id number]: 1 CONSULT TO UROLOGY [9041] Order #: [id number]: 1 CONSULT TO ENT [9008] Order #: [id number]: 1 PSA/PROSTSPECAG DIAG [SQPSA] Order #: [id number] FUTURE COMP METABOLIC PANEL [SQCMP] Order #: [id number] FUTURE HGB A1C [TDWNP2L] Order #: [id number] FUTURE LIPID PANEL BASIC [SQLIPB] Order #: [id number] FUTURE Prescriptions as of 05/23/2018 Sig: FUROSEMIDE 40 MG TABLET Take 1 tablet by mouth once d* RANITIDINE 300 MG TABLET 1 TABLET BY MOUTH WITH DINNER* DOCUSATE SODIUM 100 MG CAPSULE Take 1 capsule by mouth twice* ALUMINUM-MAG HYDROXIDE-SIMETH* Take 20 mL by mouth every 6 h* PANTOPRAZOLE 40 MG TABLET,DEL* Take 1 tablet by mouth daily * TRAZODONE 50 MG TABLET Take 1 tablet by mouth at bed* GUAIFENESIN 100 MG/5 ML ORAL * Take 10 mL by mouth three agnes* TRIAMCINOLONE ACETONIDE 0.1 %* Apply to itching rash on ches* COMPOUNDED PRESCRIPTION Rollator, # one Dx: I50.33, I* AMMONIUM LACTATE 12 % TOPICAL* Apply 1 application to affect* OXYBUTYNIN CHLORIDE 5 MG TABL* Take 1 tablet by mouth three * GLIMEPIRIDE 1 MG TABLET Take 1 tablet by mouth daily * METOPROLOL TARTRATE 25 MG TAB* Take 1 tablet by mouth every * KETOCONAZOLE 2 % SHAMPOO Use as a body wash, most spec* ATORVASTATIN 80 MG TABLET Take 1 tablet by mouth once d* METFORMIN 500 MG TABLET Take 1 tablet by mouth three * NITROGLYCERIN 0.4 MG SUBLINGU* Take 1 tablet by mouth as nee* MAGNESIUM OXIDE 400 MG (241.3* Take 1 tablet by mouth once d* ASPIRIN 81 MG TABLET,DELAYED * Take 1 tablet by mouth once d* COMPOUNDED PRESCRIPTION Glucometer high/low test solu* COMPOUNDED PRESCRIPTION Please perform a nocturnal ox* LANCETS Test glucose twice weekly. Dx* BLOOD SUGAR DIAGNOSTIC STRIPS testing twice weekly dx 250* FUROSEMIDE 80 MG TABLET One PO daily in AM TAMSULOSIN 0.4 MG CAPSULE Take 1 capsule by mouth every* COMPOUNDED PRESCRIPTION Please eval and fix any issue* BISACODYL 10 MG RECTAL SUPPOS* 1 Suppository by RECTAL route* POLYETHYLENE GLYCOL 3350 17 G* 17 g up to twice daily as nee* BLOOD-GLUCOSE METER, DRUM-TYP* Test fasting blood sugar 1-2 * BLOOD-GLUCOSE METER KIT 1 Each as needed. One Touch M* BLOOD GLUCOSE CONTROL, NORMAL* Test controls as needed. * COMPOUNDED PRESCRIPTION BIPAP setting: IPAP 22cm wate* Problem List As Of Date 05/23/2018 Noted Resolved Mild intermittent asthma without complication [* Priority: A MALIGN NEOPL PROSTATE [C61] Priority: B More... Type II or unspecified type diabetes mellitus w* 01/18/2014 Allergic rhinitis, cause unspecified [J30.9] INVALID FOR* Priority: B More... Personal history of colonic polyps [Z86.010] Priority: C More... Lumbago [M54.5] INVALID FOR* Priority: M Bilateral leg edema [R60.0] INVALID FOR* Priority: A Carpal tunnel syndrome, bilateral [G56.03] INVALID FOR* Priority: M More... Essential hypertension, benign [I10] INVALID FOR* Priority: A More... Insomnia, unspecified [G47.00] INVALID FOR* Priority: B More... Benign neoplasm of rectum and anal canal [D12.8*INVALID FOR* Priority: C Diverticulosis of colon (without mention of hem*INVALID FOR* Priority: C Hypertrophy of nasal turbinates [J34.3] INVALID FOR* Priority: C More... 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 More... More... EDMOND (obstructive sleep apnea) [G47.33] INVALID FOR* Priority: B More... Mobitz (type) I (Wenckebach's) atrioventricular*INVALID FOR* Priority: A More... More... Mixed hyperlipidemia [E78.2] INVALID FOR* Priority: A More... DVT prophylaxis [JYL1354] INVALID FOR*07/26/2014 More... More... More... More... More... More... Bradycardia [R00.1] INVALID FOR* Priority: A More... Venous stasis dermatitis of both lower extremit*INVALID FOR* Priority: B Counseling and coordination of care [Z71.89] INVALID FOR*04/12/2015 More... Hypomagnesemia [E83.42] INVALID FOR* Priority: B Diabetic eye exam (HCC) [Z01.00, E11.9] INVALID FOR* Priority: A More... Dry mouth [R68.2] INVALID FOR* Priority: B Noncompliance [Z91.19] INVALID FOR* Gastroesophageal reflux disease without esophag*INVALID FOR* Priority: A Coronary atherosclerosis due to lipid rich plaq*INVALID FOR* Priority: A Morbid obesity due to excess calories (HCC) [E6*INVALID FOR* Priority: B More... Essential tremor [G25.0] INVALID FOR* Priority: B Chronic cough [R05] INVALID FOR* Priority: B Well adult exam [Z00.00] INVALID FOR*01/07/2018 Priority: E More... Controlled type 2 diabetes mellitus with diabet*INVALID FOR* Priority: A Depression [F32.9] INVALID FOR* Priority: A Multiple open wounds of lower leg [S81.809A] INVALID FOR* Priority: D Colon cancer screening [Z12.11] INVALID FOR* Chest pain [R07.9] INVALID FOR* Priority: B More... Second degree heart block [I44.1] INVALID FOR* Priority: A More... Atherosclerosis of coronary artery bypass graft*INVALID FOR* Priority: A More... More... More... More... Hypoxia [R09.02] INVALID FOR* Chronic bilateral low back pain with left-sided*INVALID FOR* Priority: M Bilateral hip pain [M25.551, M25.552] INVALID FOR* Priority: M Paroxysmal atrial fibrillation (HCC) [I48.0] INVALID FOR* Priority: A More... 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 More... 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 More... Current use of proton pump inhibitor [Z79.899] INVALID FOR* More... More... Ulnar neuropathy at elbow of left upper extremi*INVALID FOR* Priority: M More... Hemoptysis [R04.2] INVALID FOR* Priority: A More... At high risk for falls [Z91.81] INVALID FOR* Memory changes [R41.3] INVALID FOR* Priority: B More... Closed compression fracture of L1 lumbar verteb*INVALID FOR* Priority: Mild More... Chronic constipation [K59.09] INVALID FOR* Priority: C Other instructions from your clinician: Start taking the colace twice a day Restart protonix. Fasting labs Follow up in 3 months. Disposition: Return in about 3 months (around 08/23/2018) for Routine. Follow-up and Disposition History Recorded Encounter Status:Closed by MELLY BECKER on 05/23/18 CNCNPATED Observed: 05/09/2018 Status: COMPLETED Source: [place] 2:00 PM [facility] REPOSITORY Education (NUTRWS) MAYCO KENDRICK ([id number]) 1940 M NFR Date Time Provider Department 05/09/18 2:00 PM REBECCA SANDERS (UYEN) NUTRDANIELLE Reason for Visit: Patient Education [91] Reassessment [674] Progress Notes: Rebecca Sanders, MS RD LD 05/09/2018 2:25 PM Signed Nutritional Therapy Re-Assessment PAIN: Is the patient having any pain that is interfering with oral / enteral intake? No 0 on a scale of 0 to 10 PROGRESS: Nutrition Intervention (date of last encounter 03/07/18): 1.try to use pool for exercise 2. Stop eating when comfortable not full, smaller portions, avoid desserts 3. Try for at least some exercise daily/twice daily 4. All beverages calorie free and sugar free, no juice. Eat the friut and drink water CHANGES IN TREATMENT: Patient met goal(s): Partially Actions to implement interventions: Less exercise Diet History: Food records reviewed Fasting 173 Evening; 143 CLINICAL IMPRESSIONS: good REVISIONS IN DIAGNOSIS: Diagnosis: has not changed. Allergies: Lisinopril; Sertraline Medications: Current Outpatient Prescriptions: furosemide (LASIX) 40 mg tablet Take 1 tablet by mouth once daily. Disp: 30 tablet Rfl: 11 Ranitidine HCl 300 mg tablet 1 TABLET BY MOUTH WITH DINNER DX:GERD / NURSE TO REORDER Disp: 30 tablet Rfl: 1 docusate sodium (DOC-Q-LACE) 100 mg capsule Take 1 capsule by mouth twice daily as needed. Disp: 180 capsule Rfl: 3 aluminum AND magnesium hydroxide-simethicone (MAALOX PLUS EXTRA STRENGTH) 400-400-40 mg/5 mL suspension Take 20 mL by mouth every 6 hours as needed (upset stomach). Disp: 500 mL Rfl: [address] (PROTONIX) 40 mg tablet Take 1 tablet by mouth daily before breakfast. Take on empty stomach, 1/2 hr before meal. Per Gastroenterology Disp: 30 tablet Rfl: 11 traZODone (DESYREL) 50 mg tablet Take 1 tablet by mouth at bedtime as needed (sedation). Disp: 15 tablet Rfl: 5 guaiFENesin (SILTUSSIN SA) 100 mg/5 mL syrup Take 10 mL by mouth three times daily as needed. Disp: Rfl: 0 triamcinolone acetonide (KENALOG) 0.1 % cream Apply to itching rash on chest twice daily ONLY when needed; may keep in room Disp: 454 g Rfl: 2 COMPOUNDED PRESCRIPTION Rollator, # one Dx: I50.33, I25.700, I48.0, J45.20, E66.01, M54.42, M25.551, Z91.81 Disp: 1 Device Rfl: 0 ammonium lactate (LAC-HYDRIN) 12 % cream Apply 1 application to affected area twice daily as needed. Disp: 385 g Rfl: 11 furosemide (LASIX) 80 mg tablet One PO daily in AM Disp: 90 tablet Rfl: 3 oxybutynin (DITROPAN) 5 mg tablet Take 1 tablet by mouth three times daily. Disp: 90 tablet Rfl: 11 glimepiride (AMARYL) 1 mg tablet Take 1 tablet by mouth daily with breakfast. Disp: 90 tablet Rfl: 3 metoprolol tartrate, short acting, (LOPRESSOR) 25 mg tablet Take 1 tablet by mouth every 12 hours. Disp: 180 tablet Rfl: 3 ketoconazole (NIZORAL) 2 % shampoo Use as a body wash, most specifically the chest, daily for itching and flaking; may keep in own shower Disp: 340 mL Rfl: 6 atorvastatin (LIPITOR) 80 mg tablet Take 1 tablet by mouth once daily. Disp: 90 tablet Rfl: 3 tamsulosin ER (FLOMAX) 0.4 mg cp24 Take 1 capsule by mouth every evening. for prostate Disp: 90 capsule Rfl: 3 metFORMIN (GLUCOPHAGE) 500 mg tablet Take 1 tablet by mouth three times daily with meals. Disp: 270 tablet Rfl: 3 nitroglycerin sublingual (NITROSTAT) 0.4 mg SL tablet Take 1 tablet by mouth as needed. for chest pain; dissolve on tongue. If no pain relief call 911. Disp: 2 Bottle of 25 Rfl: 5 magnesium oxide (MAG-OX) 400 mg tablet Take 1 tablet by mouth once daily. Disp: 90 tablet Rfl: 3 COMPOUNDED PRESCRIPTION Please eval and fix any issues with walker.Dx: I50.33, I25.10, E66.01, M54.42, M25.551 Disp: 1 Device Rfl: 0 bisacodyl (DULCOLAX) 10 mg supp 1 Suppository by RECTAL route once daily as needed (for constipation). Disp: Rfl: 0 polyethylene glycol 3350 (MIRALAX, GLYCOLAX) 17 gram/dose powder 17 g up to twice daily as needed prn constipation Disp: Rfl: 0 aspirin, enteric coated (ADULT LOW DOSE ASPIRIN) 81 mg EC tablet Take 1 tablet by mouth once daily. Disp: 90 tablet Rfl: 3 COMPOUNDED PRESCRIPTION Glucometer high/low test solution for accucheck. DX: DM Disp: 1 Bottle Rfl: 3 COMPOUNDED PRESCRIPTION Please perform a nocturnal oximetry on room air on BiPAP. Diagnosis: HypoxiaPlease fax results to [phone] Attn: Glendy Disp: 1 Each Rfl: 0 Lancets (ACCU-CHEK FASTCLIX) lancets Test glucose twice weekly. Dx: 250.00. Insulin Use: no Disp: 100 Each Rfl: 11 blood sugar diagnostic test strip testing twice weekly dx 250.00 insulin no Disp: 50 Strip Rfl: 12 Blood-Glucose Meter, Drum-type (ACCU-CHEK COMPACT PLUS CARE) kit Test fasting blood sugar 1-2 times a week and 2 hrs post meal 1-2 times a week. Disp: 1 Kit Rfl: 0 Blood-Glucose Meter (ONETOUCH ULTRA 2) monitoring kit 1 Each as needed. One Touch Meter Kit Diagnosis: Diabetes Mellitus Disp: 1 Each Rfl: 0 Blood Glucose Control, Normal (OT ULTRA/FASTTRACK CONTROL) soln Test controls as needed. Disp: 1 Each Rfl: 3 COMPOUNDED PRESCRIPTION BIPAP setting: IPAP 22cm water with heated humidification EPAP setting of 16cm with supplemental oxygen bleed in at 2lt per minute. Mask (per patient preference) and supplies for lifetime. Please add chin strap DX EDMOND 327.23 Disp: 1 Act Rfl: 99 No current facility-administered medications for this visit. (currently taking) Anthropometrics: Height: Last 1 Encounter Ht Readings: Date: Ht: 05/09/2018 182.9 cm (6') Current weight: Last 1 Encounter Wt Readings: Date: Wt: 05/09/2018 151 kg (333 lb) Body mass index is 45.16 kg/m?. Resting Metabolic Rate: 2283 NUTRITION ASSESSMENT: Malnutrition Screening Significant unintentional weight loss? No Eating less than 75% of usual intake for more than 2 weeks? No RECOMMENDED MALNUTRITION DIAGNOSIS: NO MALNUTRITION IDENTIFIED Educational materials provided: none this visit READINESS TO LEARN Cognitive ability: Alert and oriented Motivation to learn: Interested Family support: Unable to assess - Family not present Instruction provided to: Patient Patient learns best by: Individual Instruction Factors affecting learning: None Physical limitations affecting learning: None Likelihood of Adherence: Moderate Patient presents for follow up MNT as relates to diabetes and weight control .Making best choices as able with meals provided . Notes less exercise last couple months if limited motivation. Weight increased 4 pounds from last visit. Meals provided on smaller plates Nutrition Diagnosis: Overweight Obesity, related to; excess energy intake and physical inactivity, as evidenced by BMI above normative standard for age and gender. Nutrition Intervention 05/09/2018: modify type and amount of food or beverages 1. Go to exercise room twice per week. Plan to walk for exercise twice per week ;and community center one time per week/[employer]; if able use pool for exercise 2. Continue to make best choice as able with menus provided. 3. Stop eating when comfortable not full, smaller portions, avoid desserts Nutrition Monitoring AND Evaluation: weight loss Criteria: patient update Need for Follow up: 6-8 weeks Referred/Supervised by: Carolyn/Azul MNT Billing Type: Re-assess/15 min 2 units SIGNATURE: MS UYEN Jeffries PATIENT NAME: Mayco Kendrick DATE: May 09, 2018 TIME: 1:52 PM MS UYEN Jeffries 05/09/2018 2:10 PM Addendum 1. Go to exercise room twice per week. Plan to walk for exercise twice per week ;and community center one time per week/[employer]; if able use pool for exercise 2. Continue to make best choice as able with menus provided. 3. 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 Go to exercise room twice per week. Plan to walk for exercise twice per week ;and community center one time per week/[employer]; if able use pool for exercise 2. Continue to make best choice as able with menus provided. 3. 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 SERTRALINE 05/02/2013 8 - GI Upset Date Reviewed: 05/09/2018 Reviewed by: Rebecca Sanders - Fully Assessed Prescriptions as of 05/09/2018 Sig: FUROSEMIDE 40 MG TABLET Take 1 tablet by mouth once d* RANITIDINE 300 MG TABLET 1 TABLET BY MOUTH WITH DINNER* DOCUSATE SODIUM 100 MG CAPSULE Take 1 capsule by mouth twice* ALUMINUM-MAG HYDROXIDE-SIMETH* Take 20 mL by mouth every 6 h* PANTOPRAZOLE 40 MG TABLET,DEL* Take 1 tablet by mouth daily * TRAZODONE 50 MG TABLET Take 1 tablet by mouth at bed* GUAIFENESIN 100 MG/5 ML ORAL * Take 10 mL by mouth three agnes* TRIAMCINOLONE ACETONIDE 0.1 %* Apply to itching rash on ches* COMPOUNDED PRESCRIPTION Rollator, # one Dx: I50.33, I* AMMONIUM LACTATE 12 % TOPICAL* Apply 1 application to affect* FUROSEMIDE 80 MG TABLET One PO daily in AM OXYBUTYNIN CHLORIDE 5 MG TABL* Take 1 tablet by mouth three * GLIMEPIRIDE 1 MG TABLET Take 1 tablet by mouth daily * METOPROLOL TARTRATE 25 MG TAB* Take 1 tablet by mouth every * KETOCONAZOLE 2 % SHAMPOO Use as a body wash, most spec* ATORVASTATIN 80 MG TABLET Take 1 tablet by mouth once d* TAMSULOSIN 0.4 MG CAPSULE Take 1 capsule by mouth every* METFORMIN 500 MG TABLET Take 1 tablet by mouth three * NITROGLYCERIN 0.4 MG SUBLINGU* Take 1 tablet by mouth as nee* MAGNESIUM OXIDE 400 MG (241.3* Take 1 tablet by mouth once d* COMPOUNDED PRESCRIPTION Please eval and fix any issue* BISACODYL 10 MG RECTAL SUPPOS* 1 Suppository by RECTAL route* POLYETHYLENE GLYCOL 3350 17 G* 17 g up to twice daily as nee* ASPIRIN 81 MG TABLET,DELAYED * Take 1 tablet by mouth once d* COMPOUNDED PRESCRIPTION Glucometer high/low test solu* COMPOUNDED PRESCRIPTION Please perform a nocturnal ox* LANCETS Test glucose twice weekly. Dx* BLOOD SUGAR DIAGNOSTIC STRIPS testing twice weekly dx 250* BLOOD-GLUCOSE METER, DRUM-TYP* Test fasting blood sugar 1-2 * BLOOD-GLUCOSE METER KIT 1 Each as needed. One Touch M* BLOOD GLUCOSE CONTROL, NORMAL* Test controls as needed. * COMPOUNDED PRESCRIPTION BIPAP setting: IPAP 22cm wate* Encounter Status:Closed by REBECCA CARRILLO MS, RD on 05/09/18 PROGRESS Observed: 05/09/2018 Status: COMPLETED Source: [place] 1:49 PM [facility] REPOSITORY [facility] ID: [id number] Author: Rebecca Markham) Tommy Service: (none) Author Type: Registered Dietitian Type: Progress Notes Filed: 05/09/2018 2:25 PM Note Text: Nutritional Therapy Re-Assessment PAIN: Is the patient having any pain that is interfering with oral / enteral intake? No 0 on a scale of 0 to 10 PROGRESS: Nutrition Intervention (date of last encounter 03/07/18): 1.try to use pool for exercise 2. Stop eating when comfortable not full, smaller portions, avoid desserts 3. Try for at least some exercise daily/twice daily 4. All beverages calorie free and sugar free, no juice. Eat the friut and drink water CHANGES IN TREATMENT: Patient met goal(s): Partially Actions to implement interventions: Less exercise Diet History: Food records reviewed Fasting 173 Evening; 143 CLINICAL IMPRESSIONS: good REVISIONS IN DIAGNOSIS: Diagnosis: has not changed. Allergies: Lisinopril; Sertraline Medications: Current Outpatient Prescriptions: furosemide (LASIX) 40 mg tablet Take 1 tablet by mouth once daily. Disp: 30 tablet Rfl: 11 Ranitidine HCl 300 mg tablet 1 TABLET BY MOUTH WITH DINNER DX:GERD / NURSE TO REORDER Disp: 30 tablet Rfl: 1 docusate sodium (DOC-Q-LACE) 100 mg capsule Take 1 capsule by mouth twice daily as needed. Disp: 180 capsule Rfl: 3 aluminum AND magnesium hydroxide-simethicone (MAALOX PLUS EXTRA STRENGTH) 400-400-40 mg/5 mL suspension Take 20 mL by mouth every 6 hours as needed (upset stomach). Disp: 500 mL Rfl: [address] (PROTONIX) 40 mg tablet Take 1 tablet by mouth daily before breakfast. Take on empty stomach, 1/2 hr before meal. Per Gastroenterology Disp: 30 tablet Rfl: 11 traZODone (DESYREL) 50 mg tablet Take 1 tablet by mouth at bedtime as needed (sedation). Disp: 15 tablet Rfl: 5 guaiFENesin (SILTUSSIN SA) 100 mg/5 mL syrup Take 10 mL by mouth three times daily as needed. Disp: Rfl: 0 triamcinolone acetonide (KENALOG) 0.1 % cream Apply to itching rash on chest twice daily ONLY when needed; may keep in room Disp: 454 g Rfl: 2 COMPOUNDED PRESCRIPTION Rollator, # one Dx: I50.33, I25.700, I48.0, J45.20, E66.01, M54.42, M25.551, Z91.81 Disp: 1 Device Rfl: 0 ammonium lactate (LAC-HYDRIN) 12 % cream Apply 1 application to affected area twice daily as needed. Disp: 385 g Rfl: 11 furosemide (LASIX) 80 mg tablet One PO daily in AM Disp: 90 tablet Rfl: 3 oxybutynin (DITROPAN) 5 mg tablet Take 1 tablet by mouth three times daily. Disp: 90 tablet Rfl: 11 glimepiride (AMARYL) 1 mg tablet Take 1 tablet by mouth daily with breakfast. Disp: 90 tablet Rfl: 3 metoprolol tartrate, short acting, (LOPRESSOR) 25 mg tablet Take 1 tablet by mouth every 12 hours. Disp: 180 tablet Rfl: 3 ketoconazole (NIZORAL) 2 % shampoo Use as a body wash, most specifically the chest, daily for itching and flaking; may keep in own shower Disp: 340 mL Rfl: 6 atorvastatin (LIPITOR) 80 mg tablet Take 1 tablet by mouth once daily. Disp: 90 tablet Rfl: 3 tamsulosin ER (FLOMAX) 0.4 mg cp24 Take 1 capsule by mouth every evening. for prostate Disp: 90 capsule Rfl: 3 metFORMIN (GLUCOPHAGE) 500 mg tablet Take 1 tablet by mouth three times daily with meals. Disp: 270 tablet Rfl: 3 nitroglycerin sublingual (NITROSTAT) 0.4 mg SL tablet Take 1 tablet by mouth as needed. for chest pain; dissolve on tongue. If no pain relief call 911. Disp: 2 Bottle of 25 Rfl: 5 magnesium oxide (MAG-OX) 400 mg tablet Take 1 tablet by mouth once daily. Disp: 90 tablet Rfl: 3 COMPOUNDED PRESCRIPTION Please eval and fix any issues with walker.Dx: I50.33, I25.10, E66.01, M54.42, M25.551 Disp: 1 Device Rfl: 0 bisacodyl (DULCOLAX) 10 mg supp 1 Suppository by RECTAL route once daily as needed (for constipation). Disp: Rfl: 0 polyethylene glycol 3350 (MIRALAX, GLYCOLAX) 17 gram/dose powder 17 g up to twice daily as needed prn constipation Disp: Rfl: 0 aspirin, enteric coated (ADULT LOW DOSE ASPIRIN) 81 mg EC tablet Take 1 tablet by mouth once daily. Disp: 90 tablet Rfl: 3 COMPOUNDED PRESCRIPTION Glucometer high/low test solution for accucheck. DX: DM Disp: 1 Bottle Rfl: 3 COMPOUNDED PRESCRIPTION Please perform a nocturnal oximetry on room air on BiPAP. Diagnosis: HypoxiaPlease fax results to [phone] Attn: Glendy Disp: 1 Each Rfl: 0 Lancets (ACCU-CHEK FASTCLIX) lancets Test glucose twice weekly. Dx: 250.00. Insulin Use: no Disp: 100 Each Rfl: 11 blood sugar diagnostic test strip testing twice weekly dx 250.00 insulin no Disp: 50 Strip Rfl: 12 Blood-Glucose Meter, Drum-type (ACCU-CHEK COMPACT PLUS CARE) kit Test fasting blood sugar 1-2 times a week and 2 hrs post meal 1- 2 times a week. Disp: 1 Kit Rfl: 0 Blood-Glucose Meter (ONETOUCH ULTRA 2) monitoring kit 1 Each as needed. One Touch Meter Kit Diagnosis: Diabetes Mellitus Disp: 1 Each Rfl: 0 Blood Glucose Control, Normal (OT ULTRA/FASTTRACK CONTROL) soln Test controls as needed. Disp: 1 Each Rfl: 3 COMPOUNDED PRESCRIPTION BIPAP setting: IPAP 22cm water with heated humidification EPAP setting of 16cm with supplemental oxygen bleed in at 2lt per minute. Mask (per patient preference) and supplies for lifetime. Please add chin strap DX EDMOND 327.23 Disp: 1 Act Rfl: 99 No current facility-administered medications for this visit. (currently taking) Anthropometrics: Height: Last 1 Encounter Ht Readings: Date: Ht: 05/09/2018 182.9 cm (6') Current weight: Last 1 Encounter Wt Readings: Date: Wt: 05/09/2018 151 kg (333 lb) Body mass index is 45.16 kg/m?. Resting Metabolic Rate: 2283 NUTRITION ASSESSMENT: Malnutrition Screening Significant unintentional weight loss? No Eating less than 75% of usual intake for more than 2 weeks? No RECOMMENDED MALNUTRITION DIAGNOSIS: NO MALNUTRITION IDENTIFIED Educational materials provided: none this visit READINESS TO LEARN Cognitive ability: Alert and oriented Motivation to learn: Interested Family support: Unable to assess - Family not present Instruction provided to: Patient Patient learns best by: Individual Instruction Factors affecting learning: None Physical limitations affecting learning: None Likelihood of Adherence: Moderate Patient presents for follow up MNT as relates to diabetes and weight control .Making best choices as able with meals provided . Notes less exercise last couple months if limited motivation. Weight increased 4 pounds from last visit. Meals provided on smaller plates Nutrition Diagnosis: Overweight Obesity, related to; excess energy intake and physical inactivity, as evidenced by BMI above normative standard for age and gender. Nutrition Intervention 05/09/2018: modify type and amount of food or beverages 1. Go to exercise room twice per week. Plan to walk for exercise twice per week ;and community center one time per week/[facility]; if able use pool for exercise 2. Continue to make best choice as able with menus provided. 3. Stop eating when comfortable not full, smaller portions, avoid desserts Nutrition Monitoring AND Evaluation: weight loss Criteria: patient update Need for Follow up: 6-8 weeks Referred/Supervised by: Carolyn/Azul MNT Billing Type: Re-assess/15 min 2 units SIGNATURE: Rebecca Sanders, MS RD LD PATIENT NAME: Mayco Kendrick DATE: May 09, 2018 TIME: 1:52 PM PACEMAKER CHECK Observed: 05/05/2018 Status: F Source: [place] 10:36 AM [facility] REPOSITORY [facility] [address] [place] [address] Pacemaker Check Date of Service: 04/27/18 1311 MR#: [id number] Acct: [id number] Name: MAYCO KENDRICK Rep #: [id number] : 1940 From: Maribel Herrera Age/Sex: 77/M Location: [facility] Status: Signed Billing Codes PM Device Codes: PM Dev Prog Eval, Dual 04/27/18 1314 <Electronically signed by Maribel Herrera > Date Maribel Herrera 05/05/18 1036<Electronically signed by Pierre Mercado MD> Cosigner Signature: Date (if applicable) Pierre Mercado MD CC: OBSOLETE Observed: 05/03/2018 Status: COMPLETED Source: [place] 12:00 AM [facility] [place] REPOSITORY Refill (AGCARDWST) MAYCO KENDRICK ([id number]) 1940 M NFR Date Time Provider Department 05/03/18 BRAULIO ROBLERO During your visit today, we recorded the following information about you: Braulio Roblero MD 05/05/2018 9:20 AM Signed This does not match med list. Please reconcile MD Tiara Luna Psr 05/05/2018 2:45 PM Signed Rx [facility] pharmacy operations specialist is calling because the patient is out of medication and this delivery is scheduled to go out at 4:00 PM Today. The patient has no more refills of: Lasix 40 mg only. The patient does take both lasix 40 mg and 80 mg but is only out of 40 mg. Please send as soon as possible. Allergies As of Date: 05/03/2018 Noted Allergy Reaction LISINOPRIL 05/31/2014 14 - Other: See Comments Comments: Metallic taste in mouth. SERTRALINE 05/02/2013 8 - GI Upset Date Reviewed: 05/02/2018 Reviewed by: Ruddy Chavez - Fully Assessed Reason for Visit: Refill Request [94] Order(s):furosemide (LASIX) 40 mg tabletTake 1 tablet by mouth once daily.Disp: 30 tabletRfl: 11 Prescriptions as of 05/03/2018 Sig: FUROSEMIDE 40 MG TABLET Take 1 tablet by mouth once d* RANITIDINE 300 MG TABLET 1 TABLET BY MOUTH WITH DINNER* DOCUSATE SODIUM 100 MG CAPSULE Take 1 capsule by mouth twice* ALUMINUM-MAG HYDROXIDE-SIMETH* Take 20 mL by mouth every 6 h* PANTOPRAZOLE 40 MG TABLET,DEL* Take 1 tablet by mouth daily * TRAZODONE 50 MG TABLET Take 1 tablet by mouth at bed* GUAIFENESIN 100 MG/5 ML ORAL * Take 10 mL by mouth three agnes* TRIAMCINOLONE ACETONIDE 0.1 %* Apply to itching rash on ches* COMPOUNDED PRESCRIPTION Rollator, # one Dx: I50.33, I* AMMONIUM LACTATE 12 % TOPICAL* Apply 1 application to affect* FUROSEMIDE 80 MG TABLET One PO daily in AM OXYBUTYNIN CHLORIDE 5 MG TABL* Take 1 tablet by mouth three * GLIMEPIRIDE 1 MG TABLET Take 1 tablet by mouth daily * METOPROLOL TARTRATE 25 MG TAB* Take 1 tablet by mouth every * KETOCONAZOLE 2 % SHAMPOO Use as a body wash, most spec* ATORVASTATIN 80 MG TABLET Take 1 tablet by mouth once d* TAMSULOSIN 0.4 MG CAPSULE Take 1 capsule by mouth every* METFORMIN 500 MG TABLET Take 1 tablet by mouth three * NITROGLYCERIN 0.4 MG SUBLINGU* Take 1 tablet by mouth as nee* MAGNESIUM OXIDE 400 MG (241.3* Take 1 tablet by mouth once d* COMPOUNDED PRESCRIPTION Please eval and fix any issue* BISACODYL 10 MG RECTAL SUPPOS* 1 Suppository by RECTAL route* POLYETHYLENE GLYCOL 3350 17 G* 17 g up to twice daily as nee* ASPIRIN 81 MG TABLET,DELAYED * Take 1 tablet by mouth once d* COMPOUNDED PRESCRIPTION Glucometer high/low test solu* COMPOUNDED PRESCRIPTION Please perform a nocturnal ox* LANCETS Test glucose twice weekly. Dx* BLOOD SUGAR DIAGNOSTIC STRIPS testing twice weekly dx 250* BLOOD-GLUCOSE METER, DRUM-TYP* Test fasting blood sugar 1-2 * BLOOD-GLUCOSE METER KIT 1 Each as needed. One Touch M* BLOOD GLUCOSE CONTROL, NORMAL* Test controls as needed. * COMPOUNDED PRESCRIPTION BIPAP setting: IPAP 22cm wate* Problem List As Of Date 05/03/2018 Noted Resolved Mild intermittent asthma without complication [* Priority: A MALIGN NEOPL PROSTATE [C61] Priority: B More... Type II or unspecified type diabetes mellitus w* 01/18/2014 Allergic rhinitis, cause unspecified [J30.9] INVALID FOR* Priority: B More... Personal history of colonic polyps [Z86.010] Priority: C More... Lumbago [M54.5] INVALID FOR* Priority: M Bilateral leg edema [R60.0] INVALID FOR* Priority: A Carpal tunnel syndrome, bilateral [G56.03] INVALID FOR* Priority: M More... Essential hypertension, benign [I10] INVALID FOR* Priority: A More... Insomnia, unspecified [G47.00] INVALID FOR* Priority: B More... Benign neoplasm of rectum and anal canal [D12.8*INVALID FOR* Priority: C Diverticulosis of colon (without mention of hem*INVALID FOR* Priority: C Hypertrophy of nasal turbinates [J34.3] INVALID FOR* Priority: C More... 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 More... More... EDMOND (obstructive sleep apnea) [G47.33] INVALID FOR* Priority: B More... Mobitz (type) I (Wenckebach's) atrioventricular*INVALID FOR* Priority: A More... More... Mixed hyperlipidemia [E78.2] INVALID FOR* Priority: A More... DVT prophylaxis [XHK5741] INVALID FOR*07/26/2014 More... More... More... More... More... More... Bradycardia [R00.1] INVALID FOR* Priority: A More... Venous stasis dermatitis of both lower extremit*INVALID FOR* Priority: B Counseling and coordination of care [Z71.89] INVALID FOR*04/12/2015 More... Hypomagnesemia [E83.42] INVALID FOR* Priority: B Diabetic eye exam (HCC) [Z01.00, E11.9] INVALID FOR* Priority: A More... Dry mouth [R68.2] INVALID FOR* Priority: B Noncompliance [Z91.19] INVALID FOR* Gastroesophageal reflux disease without esophag*INVALID FOR* Priority: A Coronary atherosclerosis due to lipid rich plaq*INVALID FOR* Priority: A Morbid obesity due to excess calories (HCC) [E6*INVALID FOR* Priority: B More... Essential tremor [G25.0] INVALID FOR* Priority: B Chronic cough [R05] INVALID FOR* Priority: B Well adult exam [Z00.00] INVALID FOR*01/07/2018 Priority: E More... Controlled type 2 diabetes mellitus with diabet*INVALID FOR* Priority: A Depression [F32.9] INVALID FOR* Priority: A Multiple open wounds of lower leg [S81.809A] INVALID FOR* Priority: D Colon cancer screening [Z12.11] INVALID FOR* Chest pain [R07.9] INVALID FOR* Priority: B More... Second degree heart block [I44.1] INVALID FOR* Priority: A More... Atherosclerosis of coronary artery bypass graft*INVALID FOR* Priority: A More... More... More... More... Hypoxia [R09.02] INVALID FOR* Chronic bilateral low back pain with left-sided*INVALID FOR* Priority: M Bilateral hip pain [M25.551, M25.552] INVALID FOR* Priority: M Paroxysmal atrial fibrillation (HCC) [I48.0] INVALID FOR* Priority: A More... 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 More... 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 More... Current use of proton pump inhibitor [Z79.899] INVALID FOR* More... More... Ulnar neuropathy at elbow of left upper extremi*INVALID FOR* Priority: M More... Hemoptysis [R04.2] INVALID FOR* Priority: A More... At high risk for falls [Z91.81] INVALID FOR* Memory changes [R41.3] INVALID FOR* Priority: B More... Closed compression fracture of L1 lumbar verteb*INVALID FOR* Priority: Mild More... Chronic constipation [K59.09] INVALID FOR* Priority: C Prescriptions ordered this encounter Disp Refills Start End FUROSEMIDE 40 MG TABLET 30 t* 11 05/05/2018 Route: ORAL Sig: Take 1 tablet by mouth once daily. Medications Discontinued During This Encounter furosemide (LASIX) 40 mg tablet 90 t* 3 10/25/2017 05/05/2018 Sig: One PO daily at dinner Disc: Reason for discontinue is not on file. Encounter Status:Closed by LEIGH VILLELA MA on 05/05/18 PROGRESS Observed: 05/02/2018 Status: COMPLETED Source: [place] 1:53 PM [facility] REPOSITORY HNO ID: [id number] Author: Ruddy Chavez Service: (none) Author Type: Physician Type: Progress Notes Filed: 05/02/2018 1:54 PM Note Text: Ruddy Chavez MD Department of Orthopaedics Orthopaedics [address] [facility] [address] Dept: [phone] Dept May 02, 2018 CHIEF COMPLAINT: Recheck (13 weeks 3 days post op left ulnar nerve decompression and left CTR, having swelling, see phone encounter 04-04-18). 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 He was having some swelling about the hand after he landed on the left wrist. He was at an outside hospital. He has not had quite a significant of improvement in his burning symptoms, especially since this happened. Overall both surgical sites look excellent. I do not see any swelling. Skin is certainly take some time for his neuropathies to improve if they do. Supporting Information Below: Medications: Current Outpatient Prescriptions: Ranitidine HCl 300 mg tablet 1 TABLET BY MOUTH WITH DINNER DX:GERD / NURSE TO REORDER docusate sodium (DOC-Q-LACE) 100 mg capsule Take 1 capsule by mouth twice daily as needed. aluminum AND magnesium hydroxide-simethicone (MAALOX PLUS EXTRA STRENGTH) 400-400-40 mg/5 mL suspension Take 20 mL by mouth every 6 hours as needed (upset stomach). guaiFENesin (SILTUSSIN SA) 100 mg/5 mL syrup Take 10 mL by mouth three times daily as needed. COMPOUNDED PRESCRIPTION Rollator, # one Dx: I50.33, I25.700, I48.0, J45.20, E66.01, M54.42, M25.551, Z91.81 ammonium lactate (LAC-HYDRIN) 12 % cream Apply 1 application to affected area twice daily as needed. furosemide (LASIX) 80 mg tablet One PO daily in AM furosemide (LASIX) 40 mg tablet One PO daily at dinner oxybutynin (DITROPAN) 5 mg tablet Take 1 tablet by mouth three times daily. glimepiride (AMARYL) 1 mg tablet Take 1 tablet by mouth daily with breakfast. metoprolol tartrate, short acting, (LOPRESSOR) 25 mg tablet Take 1 tablet by mouth every 12 hours. ketoconazole (NIZORAL) 2 % shampoo Use as a body wash, most specifically the chest, daily for itching and flaking; may keep in own shower atorvastatin (LIPITOR) 80 mg tablet Take 1 tablet by mouth once daily. tamsulosin ER (FLOMAX) 0.4 mg cp24 Take 1 capsule by mouth every evening. for prostate metFORMIN (GLUCOPHAGE) 500 mg tablet Take 1 tablet by mouth three times daily with meals. magnesium oxide (MAG-OX) 400 mg tablet Take 1 tablet by mouth once daily. COMPOUNDED PRESCRIPTION Please eval and fix any issues with walker.Dx: I50.33, I25.10, E66.01, M54.42, M25.551 bisacodyl (DULCOLAX) 10 mg supp 1 Suppository by RECTAL route once daily as needed (for constipation). aspirin, enteric coated (ADULT LOW DOSE ASPIRIN) 81 mg EC tablet Take 1 tablet by mouth once daily. COMPOUNDED PRESCRIPTION Please perform a nocturnal oximetry on room air on BiPAP. Diagnosis: HypoxiaPlease fax results to [phone] Attn: Glendy Lancets (ACCU-CHEK FASTCLIX) lancets Test glucose twice weekly. Dx: 250.00. Insulin Use: no blood sugar diagnostic test strip testing twice weekly dx 250.00 insulin no Blood-Glucose Meter, Drum-type (ACCU-CHEK COMPACT PLUS CARE) kit Test fasting blood sugar 1-2 times a week and 2 hrs post meal 1- 2 times a week. Blood-Glucose Meter (ONETOUCH ULTRA 2) monitoring kit 1 Each as needed. One Touch Meter Kit Diagnosis: Diabetes Mellitus Blood Glucose Control, Normal (OT ULTRA/FASTTRACK CONTROL) soln Test controls as needed. COMPOUNDED PRESCRIPTION BIPAP setting: IPAP 22cm water with heated humidification EPAP setting of 16cm with supplemental oxygen bleed in at 2lt per minute. Mask (per patient preference) and supplies for lifetime. Please add chin strap DX EDMOND 327.[address] (PROTONIX) 40 mg tablet Take 1 tablet by mouth daily before breakfast. Take on empty stomach, 1/2 hr before meal. Per Gastroenterology traZODone (DESYREL) 50 mg tablet Take 1 tablet by mouth at bedtime as needed (sedation). triamcinolone acetonide (KENALOG) 0.1 % cream Apply to itching rash on chest twice daily ONLY when needed; may keep in room nitroglycerin sublingual (NITROSTAT) 0.4 mg SL tablet Take 1 tablet by mouth as needed. for chest pain; dissolve on tongue. If no pain relief call 911. polyethylene glycol 3350 (MIRALAX, GLYCOLAX) 17 gram/dose powder 17 g up to twice daily as needed prn constipation COMPOUNDED PRESCRIPTION Glucometer high/low test solution for accucheck. DX: DM No current facility-administered medications for this visit. Allergies: Lisinopril; Sertraline This note was partially generated using Cellay voice recognition system, and there may be some incorrect words, spellings, and punctuation that were not noted in checking the note before saving. Ruddy Chavez MD PROGRESS Observed: 04/18/2018 Status: COMPLETED Source: [place] 2:04 PM [facility] REPOSITORY HNO ID: [id number] Author: Niki Cervantes RN Service: (none) Author Type: (none) Type: Progress Notes Filed: 05/02/2018 1:54 PM Note Text: AMB ROOMING INTAKE FLOWSHEET DATA Risk Screening Do you have concerns about personal safety or safety in the home?: No Pain Pain Score: (3-6) Pain Location: (left hand and wrist) Description: Burning, Tingling Duration Amount of Time: 1 Duration Units: Months Frequency: Continuous Intervention: Medication, Splinting Patient presents with: Recheck: 13 weeks 3 days post op left ulnar nerve decompression and left CTR, having swelling, see phone encounter 04-04-18 Pt. states after last post op he fell and landed on left wrist, was knocked unconscious and ended up in [facility] . He is confused regarding details and time of fall, and after checking on [employer], it was 6-25-18, wrist xray was done, and was negative for fx. He states he has not been having swelling, but that his veins were popping out in my left hand, and I had more burning in hand and wrist. He takes occasional Tylenol. He states sx did not occur right away after fall. He has been using splint at times with relief. CNOV Observed: 04/18/2018 Status: COMPLETED Source: [place] 2:00 PM [facility] REPOSITORY Office Visit (ORTHWS) KENDRICKMAYCO ([id number]) 1940 M NFR Date Time Provider Department 04/18/18 2:00 PM RUDDY CHAVEZ During your visit today, we recorded the following information about you: Niki Cervantes RN 05/02/2018 1:54 PM Signed AMB ROOMING INTAKE FLOWSHEET DATA Risk Screening Do you have concerns about personal safety or safety in the home?: No Pain Pain Score: (3-6) Pain Location: (left hand and wrist) Description: Burning, Tingling Duration Amount of Time: 1 Duration Units: Months Frequency: Continuous Intervention: Medication, Splinting Patient presents with: Recheck: 13 weeks 3 days post op left ulnar nerve decompression and left CTR, having swelling, see phone encounter 04-04-18 Pt. states after last post op he fell and landed on left wrist, was knocked unconscious and ended up in [facility] . He is confused regarding details and time of fall, and after checking on [employer], it was 18, wrist xray was done, and was negative for fx. He states he has not been having swelling, but that his veins were popping out in my left hand, and I had more burning in hand and wrist. He takes occasional Tylenol. He states sx did not occur right away after fall. He has been using splint at times with relief. Ruddy Chavez MD 05/02/2018 1:54 PM Signed Ruddy Chavez MD Department of Orthopaedics Orthopaedics [address] [place] [address] Dept: [phone] Dept May 02, 2018 CHIEF COMPLAINT: Recheck (13 weeks 3 days post op left ulnar nerve decompression and left CTR, having swelling, see phone encounter 04-04-18). 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 He was having some swelling about the hand after he landed on the left wrist. He was at an outside hospital. He has not had quite a significant of improvement in his burning symptoms, especially since this happened. Overall both surgical sites look excellent. I do not see any swelling. Skin is certainly take some time for his neuropathies to improve if they do. Supporting Information Below: Medications: Current Outpatient Prescriptions: Ranitidine HCl 300 mg tablet 1 TABLET BY MOUTH WITH DINNER DX:GERD / NURSE TO REORDER docusate sodium (DOC-Q-LACE) 100 mg capsule Take 1 capsule by mouth twice daily as needed. aluminum AND magnesium hydroxide-simethicone (MAALOX PLUS EXTRA STRENGTH) 400-400-40 mg/5 mL suspension Take 20 mL by mouth every 6 hours as needed (upset stomach). guaiFENesin (SILTUSSIN SA) 100 mg/5 mL syrup Take 10 mL by mouth three times daily as needed. COMPOUNDED PRESCRIPTION Rollator, # one Dx: I50.33, I25.700, I48.0, J45.20, E66.01, M54.42, M25.551, Z91.81 ammonium lactate (LAC-HYDRIN) 12 % cream Apply 1 application to affected area twice daily as needed. furosemide (LASIX) 80 mg tablet One PO daily in AM furosemide (LASIX) 40 mg tablet One PO daily at dinner oxybutynin (DITROPAN) 5 mg tablet Take 1 tablet by mouth three times daily. glimepiride (AMARYL) 1 mg tablet Take 1 tablet by mouth daily with breakfast. metoprolol tartrate, short acting, (LOPRESSOR) 25 mg tablet Take 1 tablet by mouth every 12 hours. ketoconazole (NIZORAL) 2 % shampoo Use as a body wash, most specifically the chest, daily for itching and flaking; may keep in own shower atorvastatin (LIPITOR) 80 mg tablet Take 1 tablet by mouth once daily. tamsulosin ER (FLOMAX) 0.4 mg cp24 Take 1 capsule by mouth every evening. for prostate metFORMIN (GLUCOPHAGE) 500 mg tablet Take 1 tablet by mouth three times daily with meals. magnesium oxide (MAG-OX) 400 mg tablet Take 1 tablet by mouth once daily. COMPOUNDED PRESCRIPTION Please eval and fix any issues with walker.Dx: I50.33, I25.10, E66.01, M54.42, M25.551 bisacodyl (DULCOLAX) 10 mg supp 1 Suppository by RECTAL route once daily as needed (for constipation). aspirin, enteric coated (ADULT LOW DOSE ASPIRIN) 81 mg EC tablet Take 1 tablet by mouth once daily. COMPOUNDED PRESCRIPTION Please perform a nocturnal oximetry on room air on BiPAP. Diagnosis: HypoxiaPlease fax results to [phone] Attn: Glendy Lancets (ACCU-CHEK FASTCLIX) lancets Test glucose twice weekly. Dx: 250.00. Insulin Use: no blood sugar diagnostic test strip testing twice weekly dx 250.00 insulin no Blood-Glucose Meter, Drum-type (ACCU-CHEK COMPACT PLUS CARE) kit Test fasting blood sugar 1-2 times a week and 2 hrs post meal 1-2 times a week. Blood-Glucose Meter (ONETOUCH ULTRA 2) monitoring kit 1 Each as needed. One Touch Meter Kit Diagnosis: Diabetes Mellitus Blood Glucose Control, Normal (OT ULTRA/FASTTRACK CONTROL) soln Test controls as needed. COMPOUNDED PRESCRIPTION BIPAP setting: IPAP 22cm water with heated humidification EPAP setting of 16cm with supplemental oxygen bleed in at 2lt per minute. Mask (per patient preference) and supplies for lifetime. Please add chin strap DX EDMOND 327.[address] (PROTONIX) 40 mg tablet Take 1 tablet by mouth daily before breakfast. Take on empty stomach, 1/2 hr before meal. Per Gastroenterology traZODone (DESYREL) 50 mg tablet Take 1 tablet by mouth at bedtime as needed (sedation). triamcinolone acetonide (KENALOG) 0.1 % cream Apply to itching rash on chest twice daily ONLY when needed; may keep in room nitroglycerin sublingual (NITROSTAT) 0.4 mg SL tablet Take 1 tablet by mouth as needed. for chest pain; dissolve on tongue. If no pain relief call 911. polyethylene glycol 3350 (MIRALAX, GLYCOLAX) 17 gram/dose powder 17 g up to twice daily as needed prn constipation COMPOUNDED PRESCRIPTION Glucometer high/low test solution for accucheck. DX: DM No current facility-administered medications for this visit. Allergies: Lisinopril; Sertraline This note was partially generated using Cellay voice recognition system, and there may be some incorrect words, spellings, and punctuation that were not noted in checking the note before saving. Ruddy Chavez MD Referring Provider: RUDDY CHAVEZ [[id number]] Allergies As of Date: 04/18/2018 Noted Allergy Reaction LISINOPRIL 05/31/2014 14 - Other: See Comments Comments: Metallic taste in mouth. SERTRALINE 05/02/2013 8 - GI Upset Date Reviewed: 03/24/2018 Reviewed by: Ruddy Chavez - Fully Assessed Reason for Visit: Recheck [92] Cmt: 13 weeks 3 days post op left ulnar nerve decompression and left CTR, having swelling, see phone encounter 04-04-18 Primary Visit Diagnosis:Ulnar neuropathy at elbow of left upper extremity [G56.22] Other Visit Diagnosis:Carpal tunnel syndrome of left wrist [G56.02] Prescriptions as of 04/18/2018 Sig: RANITIDINE 300 MG TABLET 1 TABLET BY MOUTH WITH DINNER* DOCUSATE SODIUM 100 MG CAPSULE Take 1 capsule by mouth twice* ALUMINUM-MAG HYDROXIDE-SIMETH* Take 20 mL by mouth every 6 h* GUAIFENESIN 100 MG/5 ML ORAL * Take 10 mL by mouth three agnes* COMPOUNDED PRESCRIPTION Rollator, # one Dx: I50.33, I* AMMONIUM LACTATE 12 % TOPICAL* Apply 1 application to affect* FUROSEMIDE 80 MG TABLET One PO daily in AM FUROSEMIDE 40 MG TABLET One PO daily at dinner OXYBUTYNIN CHLORIDE 5 MG TABL* Take 1 tablet by mouth three * GLIMEPIRIDE 1 MG TABLET Take 1 tablet by mouth daily * METOPROLOL TARTRATE 25 MG TAB* Take 1 tablet by mouth every * KETOCONAZOLE 2 % SHAMPOO Use as a body wash, most spec* ATORVASTATIN 80 MG TABLET Take 1 tablet by mouth once d* TAMSULOSIN 0.4 MG CAPSULE Take 1 capsule by mouth every* METFORMIN 500 MG TABLET Take 1 tablet by mouth three * MAGNESIUM OXIDE 400 MG (241.3* Take 1 tablet by mouth once d* COMPOUNDED PRESCRIPTION Please eval and fix any issue* BISACODYL 10 MG RECTAL SUPPOS* 1 Suppository by RECTAL route* ASPIRIN 81 MG TABLET,DELAYED * Take 1 tablet by mouth once d* COMPOUNDED PRESCRIPTION Please perform a nocturnal ox* LANCETS Test glucose twice weekly. Dx* BLOOD SUGAR DIAGNOSTIC STRIPS testing twice weekly dx 250* BLOOD-GLUCOSE METER, DRUM-TYP* Test fasting blood sugar 1-2 * BLOOD-GLUCOSE METER KIT 1 Each as needed. One Touch M* BLOOD GLUCOSE CONTROL, NORMAL* Test controls as needed. * COMPOUNDED PRESCRIPTION BIPAP setting: IPAP 22cm wate* PANTOPRAZOLE 40 MG TABLET,DEL* Take 1 tablet by mouth daily * TRAZODONE 50 MG TABLET Take 1 tablet by mouth at bed* TRIAMCINOLONE ACETONIDE 0.1 %* Apply to itching rash on ches* X RIVAROXABAN 20 MG TABLET Take 1 tablet by mouth daily * NITROGLYCERIN 0.4 MG SUBLINGU* Take 1 tablet by mouth as nee* POLYETHYLENE GLYCOL 3350 17 G* 17 g up to twice daily as nee* COMPOUNDED PRESCRIPTION Glucometer high/low test solu* Problem List As Of Date 04/18/2018 Noted Resolved Mild intermittent asthma without complication [* Priority: A MALIGN NEOPL PROSTATE [C61] Priority: B More... Type II or unspecified type diabetes mellitus w* 01/18/2014 Allergic rhinitis, cause unspecified [J30.9] INVALID FOR* Priority: B More... Personal history of colonic polyps [Z86.010] Priority: C More... Lumbago [M54.5] INVALID FOR* Priority: M Bilateral leg edema [R60.0] INVALID FOR* Priority: A Carpal tunnel syndrome, bilateral [G56.03] INVALID FOR* Priority: M More... Essential hypertension, benign [I10] INVALID FOR* Priority: A More... Insomnia, unspecified [G47.00] INVALID FOR* Priority: B More... Benign neoplasm of rectum and anal canal [D12.8*INVALID FOR* Priority: C Diverticulosis of colon (without mention of hem*INVALID FOR* Priority: C Hypertrophy of nasal turbinates [J34.3] INVALID FOR* Priority: C More... 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 More... More... EDMOND (obstructive sleep apnea) [G47.33] INVALID FOR* Priority: B More... Mobitz (type) I (Wenckebach's) atrioventricular*INVALID FOR* Priority: A More... More... Mixed hyperlipidemia [E78.2] INVALID FOR* Priority: A More... DVT prophylaxis [XPV3689] INVALID FOR*07/26/2014 More... More... More... More... More... More... Bradycardia [R00.1] INVALID FOR* Priority: A More... Venous stasis dermatitis of both lower extremit*INVALID FOR* Priority: B Counseling and coordination of care [Z71.89] INVALID FOR*04/12/2015 More... Hypomagnesemia [E83.42] INVALID FOR* Priority: B Diabetic eye exam (HCC) [Z01.00, E11.9] INVALID FOR* Priority: A More... Dry mouth [R68.2] INVALID FOR* Priority: B Noncompliance [Z91.19] INVALID FOR* Gastroesophageal reflux disease without esophag*INVALID FOR* Priority: A Coronary atherosclerosis due to lipid rich plaq*INVALID FOR* Priority: A Morbid obesity due to excess calories (HCC) [E6*INVALID FOR* Priority: B More... Essential tremor [G25.0] INVALID FOR* Priority: B Chronic cough [R05] INVALID FOR* Priority: B Well adult exam [Z00.00] INVALID FOR*01/07/2018 Priority: E More... Controlled type 2 diabetes mellitus with diabet*INVALID FOR* Priority: A Depression [F32.9] INVALID FOR* Priority: A Multiple open wounds of lower leg [S81.809A] INVALID FOR* Priority: D Colon cancer screening [Z12.11] INVALID FOR* Chest pain [R07.9] INVALID FOR* Priority: B More... Second degree heart block [I44.1] INVALID FOR* Priority: A More... Atherosclerosis of coronary artery bypass graft*INVALID FOR* Priority: A More... More... More... More... Hypoxia [R09.02] INVALID FOR* Chronic bilateral low back pain with left-sided*INVALID FOR* Priority: M Bilateral hip pain [M25.551, M25.552] INVALID FOR* Priority: M Paroxysmal atrial fibrillation (HCC) [I48.0] INVALID FOR* Priority: A More... 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 More... 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 More... Current use of proton pump inhibitor [Z79.899] INVALID FOR* More... More... Ulnar neuropathy at elbow of left upper extremi*INVALID FOR* Priority: M More... Hemoptysis [R04.2] INVALID FOR* Priority: A More... At high risk for falls [Z91.81] INVALID FOR* Memory changes [R41.3] INVALID FOR* Priority: B More... Closed compression fracture of L1 lumbar verteb*INVALID FOR* Priority: Mild More... Chronic constipation [K59.09] INVALID FOR* Priority: C Encounter Status:Closed by RUDDY CHAVEZ MD on 05/02/18 CNPN Observed: 04/05/2018 Status: COMPLETED Source: [place] 12:00 AM [facility] MAYCO KENDRICK ([id number]) 1940 [facility] Date Time Provider Department 04/05/18 [facility]TRAND LEON [facility] During your visit today, we recorded the following information about you: Anjelica Zavala RN 04/05/2018 3:42 PM Signed Aris @ [facility] calling to say patient had one episode of hemoptysis today. Patient reported to staff that he had coughed up a blood clot. Aris says 1cm x 1.5 cm. Patient tells her it only happens after he gets up after resting or sleeping. No further oral or nasal bleeding. Anjelica Leon MD 04/05/2018 5:34 PM Signed If worsens needs to go to ER but they need to be contacting his director of optimization Dr. Huff's office regarding this issue. Antonia Hernandez Ma 04/05/2018 5:39 PM Signed Notified [facility] nurse aris and gave message from pcp Routing to Dr. Refugio Huff MD 04/18/2018 6:33 PM Signed The patient has undergone bronchoscopy to investigate his hemoptysis. The airway examination was normal, cultures were negative. - The likely cause of the recurrent hemoptysis is chronic bronchitis, and maintenance anticoagulant Rx. Perhaps his anticoagulant dose can be redued. Chavez Huff MD, [facility] Respiratory [facility] [address] [place] [id number] P: [phone] F: [phone] [email or web address] Bertrand Leon MD 04/18/2018 6:52 PM Signed Just a FYI: Mr. Kendrick has not been on xarelto since 02/25/2018. Only anticoagulant he is on is a baby ASA. Bertrand Leon MD 04/18/2018 6:52 PM Signed Addended by: BERTRAND LEON on: 04/18/2018 06:52 PM Modules accepted: Orders Allergies As of Date: 04/05/2018 Noted Allergy Reaction LISINOPRIL 05/31/2014 14 - Other: See Comments Comments: Metallic taste in mouth. SERTRALINE 05/02/2013 8 - GI Upset Date Reviewed: 03/24/2018 Reviewed by: Ruddy Chavez - Fully Assessed Reason for Visit: Hemoptysis [1975] Prescriptions as of 04/05/2018 Sig: RANITIDINE 300 MG TABLET 1 TABLET BY MOUTH WITH DINNER* DOCUSATE SODIUM 100 MG CAPSULE Take 1 capsule by mouth twice* ALUMINUM-MAG HYDROXIDE-SIMETH* Take 20 mL by mouth every 6 h* PANTOPRAZOLE 40 MG TABLET,DEL* Take 1 tablet by mouth daily * TRAZODONE 50 MG TABLET Take 1 tablet by mouth at bed* GUAIFENESIN 100 MG/5 ML ORAL * Take 10 mL by mouth three agnes* TRIAMCINOLONE ACETONIDE 0.1 %* Apply to itching rash on ches* COMPOUNDED PRESCRIPTION Rollator, # one Dx: I50.33, I* AMMONIUM LACTATE 12 % TOPICAL* Apply 1 application to affect* FUROSEMIDE 80 MG TABLET One PO daily in AM FUROSEMIDE 40 MG TABLET One PO daily at dinner OXYBUTYNIN CHLORIDE 5 MG TABL* Take 1 tablet by mouth three * GLIMEPIRIDE 1 MG TABLET Take 1 tablet by mouth daily * METOPROLOL TARTRATE 25 MG TAB* Take 1 tablet by mouth every * KETOCONAZOLE 2 % SHAMPOO Use as a body wash, most spec* ATORVASTATIN 80 MG TABLET Take 1 tablet by mouth once d* TAMSULOSIN 0.4 MG CAPSULE Take 1 capsule by mouth every* METFORMIN 500 MG TABLET Take 1 tablet by mouth three * NITROGLYCERIN 0.4 MG SUBLINGU* Take 1 tablet by mouth as nee* MAGNESIUM OXIDE 400 MG (241.3* Take 1 tablet by mouth once d* COMPOUNDED PRESCRIPTION Please eval and fix any issue* BISACODYL 10 MG RECTAL SUPPOS* 1 Suppository by RECTAL route* POLYETHYLENE GLYCOL 3350 17 G* 17 g up to twice daily as nee* ASPIRIN 81 MG TABLET,DELAYED * Take 1 tablet by mouth once d* COMPOUNDED PRESCRIPTION Glucometer high/low test solu* COMPOUNDED PRESCRIPTION Please perform a nocturnal ox* LANCETS Test glucose twice weekly. Dx* BLOOD SUGAR DIAGNOSTIC STRIPS testing twice weekly dx 250* BLOOD-GLUCOSE METER, DRUM-TYP* Test fasting blood sugar 1-2 * BLOOD-GLUCOSE METER KIT 1 Each as needed. One Touch M* BLOOD GLUCOSE CONTROL, NORMAL* Test controls as needed. * COMPOUNDED PRESCRIPTION BIPAP setting: IPAP 22cm wate* Medication notes this encounter RIVAROXABAN 20 MG TABLET >> Bertrand Leon MD 04/18/2018 6:47 PM due to bleeding Problem List As Of Date 04/05/2018 Noted Resolved Mild intermittent asthma without complication [* Priority: A MALIGN NEOPL PROSTATE [C61] Priority: B More... Type II or unspecified type diabetes mellitus w* 01/18/2014 Allergic rhinitis, cause unspecified [J30.9] INVALID FOR* Priority: B More... Personal history of colonic polyps [Z86.010] Priority: C More... Lumbago [M54.5] INVALID FOR* Priority: M Bilateral leg edema [R60.0] INVALID FOR* Priority: A Carpal tunnel syndrome, bilateral [G56.03] INVALID FOR* Priority: M More... Essential hypertension, benign [I10] INVALID FOR* Priority: A More... Insomnia, unspecified [G47.00] INVALID FOR* Priority: B More... Benign neoplasm of rectum and anal canal [D12.8*INVALID FOR* Priority: C Diverticulosis of colon (without mention of hem*INVALID FOR* Priority: C Hypertrophy of nasal turbinates [J34.3] INVALID FOR* Priority: C More... 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 More... More... EDMOND (obstructive sleep apnea) [G47.33] INVALID FOR* Priority: B More... Mobitz (type) I (Wenckebach's) atrioventricular*INVALID FOR* Priority: A More... More... Mixed hyperlipidemia [E78.2] INVALID FOR* Priority: A More... DVT prophylaxis [CFR8597] INVALID FOR*07/26/2014 More... More... More... More... More... More... Bradycardia [R00.1] INVALID FOR* Priority: A More... Venous stasis dermatitis of both lower extremit*INVALID FOR* Priority: B Counseling and coordination of care [Z71.89] INVALID FOR*04/12/2015 More... Hypomagnesemia [E83.42] INVALID FOR* Priority: B Diabetic eye exam (HCC) [Z01.00, E11.9] INVALID FOR* Priority: A More... Dry mouth [R68.2] INVALID FOR* Priority: B Noncompliance [Z91.19] INVALID FOR* Gastroesophageal reflux disease without esophag*INVALID FOR* Priority: A Coronary atherosclerosis due to lipid rich plaq*INVALID FOR* Priority: A Morbid obesity due to excess calories (HCC) [E6*INVALID FOR* Priority: B More... Essential tremor [G25.0] INVALID FOR* Priority: B Chronic cough [R05] INVALID FOR* Priority: B Well adult exam [Z00.00] INVALID FOR*01/07/2018 Priority: E More... Controlled type 2 diabetes mellitus with diabet*INVALID FOR* Priority: A Depression [F32.9] INVALID FOR* Priority: A Multiple open wounds of lower leg [S81.809A] INVALID FOR* Priority: D Colon cancer screening [Z12.11] INVALID FOR* Chest pain [R07.9] INVALID FOR* Priority: B More... Second degree heart block [I44.1] INVALID FOR* Priority: A More... Atherosclerosis of coronary artery bypass graft*INVALID FOR* Priority: A More... More... More... More... Hypoxia [R09.02] INVALID FOR* Chronic bilateral low back pain with left-sided*INVALID FOR* Priority: M Bilateral hip pain [M25.551, M25.552] INVALID FOR* Priority: M Paroxysmal atrial fibrillation (HCC) [I48.0] INVALID FOR* Priority: A More... 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 More... 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 More... Current use of proton pump inhibitor [Z79.899] INVALID FOR* More... More... Ulnar neuropathy at elbow of left upper extremi*INVALID FOR* Priority: M More... Hemoptysis [R04.2] INVALID FOR* Priority: A More... At high risk for falls [Z91.81] INVALID FOR* Memory changes [R41.3] INVALID FOR* More... Closed compression fracture of L1 lumbar verteb*INVALID FOR* Priority: Mild More... Chronic constipation [K59.09] INVALID FOR* Priority: C Medications Discontinued During This Encounter rivaroxaban (XARELTO) 20 mg tablet 11/30/2017 04/18/2018 Class: Med Update Route: ORAL Sig: Take 1 tablet by mouth daily with dinner. Disc: Clinical Decision Encounter Status:Closed by CHAVEZ HUFF MD on 04/18/18 PROGRESS Observed: 03/24/2018 Status: COMPLETED Source: [place] 7:38 AM [facility] HNO ID: [id number] Author: Ruddy Chavez Service: (none) Author Type: Physician Type: Progress Notes Filed: 03/24/2018 7:40 AM Note Text: Ruddy Chavez MD Department of Orthopaedics [facility] [address] [place] [address] Dept: [phone] Dept March 03, 2018 CHIEF COMPLAINT: Post Op (6 week 6 days post op left ulnar nerve decompression and left CTR). 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 He's been doing well but he does state that he banged his hand about a week ago and is having more discomfort there. He's been wearing his brace just get things settled down. For 10 pain in the hand. No pain in the elbow. He is feeling improvement already in the sensation and function in his hand. Continue activities as tolerated and follow-up as needed. Exam: surgical sites of healed nicely. Full range of motion of the elbow and wrist. Neurovascular exam intact. Supporting Information Below: Medications: Current Outpatient Prescriptions: docusate sodium (DOC-Q-LACE) 100 mg capsule Take 1 capsule by mouth twice daily as needed. rivaroxaban (XARELTO) 20 mg tablet Take 1 tablet by mouth daily with dinner. furosemide (LASIX) 80 mg tablet One PO daily in AM furosemide (LASIX) 40 mg tablet One PO daily at dinner oxybutynin (DITROPAN) 5 mg tablet Take 1 tablet by mouth three times daily. glimepiride (AMARYL) 1 mg tablet Take 1 tablet by mouth daily with breakfast. metoprolol tartrate, short acting, (LOPRESSOR) 25 mg tablet Take 1 tablet by mouth every 12 hours. atorvastatin (LIPITOR) 80 mg tablet Take 1 tablet by mouth once daily. tamsulosin ER (FLOMAX) 0.4 mg cp24 Take 1 capsule by mouth every evening. for prostate metFORMIN (GLUCOPHAGE) 500 mg tablet Take 1 tablet by mouth three times daily with meals. nitroglycerin sublingual (NITROSTAT) 0.4 mg SL tablet Take 1 tablet by mouth as needed. for chest pain; dissolve on tongue. If no pain relief call 911. Ranitidine HCl 300 mg tablet Take with evening meal. magnesium oxide (MAG-OX) 400 mg tablet Take 1 tablet by mouth once daily. aspirin, enteric coated (ADULT LOW DOSE ASPIRIN) 81 mg EC tablet Take 1 tablet by mouth once daily. blood sugar diagnostic test strip testing twice weekly dx 250.00 insulin no Blood-Glucose Meter (ONETOUCH ULTRA 2) monitoring kit 1 Each as needed. One Touch Meter Kit Diagnosis: Diabetes Mellitus aluminum AND magnesium hydroxide-simethicone (MAALOX PLUS EXTRA STRENGTH) 400-400-40 mg/5 mL suspension Take 20 mL by mouth every 6 hours as needed (upset stomach). pantoprazole DR (PROTONIX) 40 mg tablet Take 1 tablet by mouth daily before breakfast. Take on empty stomach, 1/2 hr before meal. Per Gastroenterology traZODone (DESYREL) 50 mg tablet Take 1 tablet by mouth at bedtime as needed (sedation). guaiFENesin (SILTUSSIN SA) 100 mg/5 mL syrup Take 10 mL by mouth three times daily as needed. triamcinolone acetonide (KENALOG) 0.1 % cream Apply to itching rash on chest twice daily ONLY when needed; may keep in room COMPOUNDED PRESCRIPTION Rollator, # one Dx: I50.33, I25.700, I48.0, J45.20, E66.01, M54.42, M25.551, Z91.81 ammonium lactate (LAC-HYDRIN) 12 % cream Apply 1 application to affected area twice daily as needed. ketoconazole (NIZORAL) 2 % shampoo Use as a body wash, most specifically the chest, daily for itching and flaking; may keep in own shower COMPOUNDED PRESCRIPTION Please eval and fix any issues with walker.Dx: I50.33, I25.10, E66.01, M54.42, M25.551 bisacodyl (DULCOLAX) 10 mg supp 1 Suppository by RECTAL route once daily as needed (for constipation). polyethylene glycol 3350 (MIRALAX, GLYCOLAX) 17 gram/dose powder 17 g up to twice daily as needed prn constipation COMPOUNDED PRESCRIPTION Glucometer high/low test solution for accucheck. DX: DM COMPOUNDED PRESCRIPTION Please perform a nocturnal oximetry on room air on BiPAP. Diagnosis: HypoxiaPlease fax results to [phone] Attn: Glendy Lancets (ACCU-CHEK FASTCLIX) lancets Test glucose twice weekly. Dx: 250.00. Insulin Use: no Blood-Glucose Meter, Drum-type (ACCU-CHEK COMPACT PLUS CARE) kit Test fasting blood sugar 1-2 times a week and 2 hrs post meal 1- 2 times a week. Blood Glucose Control, Normal (OT ULTRA/FASTTRACK CONTROL) soln Test controls as needed. COMPOUNDED PRESCRIPTION BIPAP setting: IPAP 22cm water with heated humidification EPAP setting of 16cm with supplemental oxygen bleed in at 2lt per minute. Mask (per patient preference) and supplies for lifetime. Please add chin strap DX EDMOND 327.23 No current facility-administered medications for this visit. Allergies: Lisinopril; Sertraline This note was partially generated using [employer] voice recognition system, and there may be some incorrect words, spellings, and punctuation that were not noted in checking the note before saving. Ruddy Chavez MD CNCNPATED Observed: 03/07/2018 Status: COMPLETED Source: [place] 1:15 PM [facility] Education ([facility]TR[facility]) MAYCO KENDRICK ([id number]) 1940 M NFR Date Time Provider Department 03/07/18 1:15 PM REBECCA SANDERS ([facility]) JOSE Reason for Visit: Patient Education [91] Reassessment [224] Progress Notes: Rebecca Sanders, MS [facility] 03/07/2018 1:41 PM Signed Nutritional Therapy Re-Assessment PAIN: Is the patient having any pain that is interfering with oral / enteral intake? No 0 on a scale of 0 to 10 PROGRESS: Nutrition Intervention (date of last encounter 01/24/18): 1. When cleared for exercise get in pool for exercise 2. Continue current guidelines 3. Stop eating at comfortable, not full CHANGES IN TREATMENT: Patient met goal(s): Partially Actions to implement interventions: Exercise-3 x last week-walk around the building, leg exercises- Diet History: Provided by facility, provided smaller portions Choosing salads, better choices unsweet iced tea, water, o juice less sugar juice CLINICAL IMPRESSIONS: good REVISIONS IN DIAGNOSIS: Diagnosis: has not changed. Allergies: Lisinopril; Sertraline Medications: Current Outpatient Prescriptions: docusate sodium (DOC-Q-LACE) 100 mg capsule Take 1 capsule by mouth twice daily as needed. Disp: 180 capsule Rfl: 3 aluminum AND magnesium hydroxide-simethicone (MAALOX PLUS EXTRA STRENGTH) 400-400-40 mg/5 mL suspension Take 20 mL by mouth every 6 hours as needed (upset stomach). Disp: 500 mL Rfl: [address] (PROTONIX) 40 mg tablet Take 1 tablet by mouth daily before breakfast. Take on empty stomach, 1/2 hr before meal. Per Gastroenterology Disp: 30 tablet Rfl: 11 traZODone (DESYREL) 50 mg tablet Take 1 tablet by mouth at bedtime as needed (sedation). Disp: 15 tablet Rfl: 5 guaiFENesin (SILTUSSIN SA) 100 mg/5 mL syrup Take 10 mL by mouth three times daily as needed. Disp: Rfl: 0 triamcinolone acetonide (KENALOG) 0.1 % cream Apply to itching rash on chest twice daily ONLY when needed; may keep in room Disp: 454 g Rfl: 2 COMPOUNDED PRESCRIPTION Rollator, # one Dx: I50.33, I25.700, I48.0, J45.20, E66.01, M54.42, M25.551, Z91.81 Disp: 1 Device Rfl: 0 ammonium lactate (LAC-HYDRIN) 12 % cream Apply 1 application to affected area twice daily as needed. Disp: 385 g Rfl: 11 rivaroxaban (XARELTO) 20 mg tablet Take 1 tablet by mouth daily with dinner. Disp: Rfl: furosemide (LASIX) 80 mg tablet One PO daily in AM Disp: 90 tablet Rfl: 3 furosemide (LASIX) 40 mg tablet One PO daily at dinner Disp: 90 tablet Rfl: 3 oxybutynin (DITROPAN) 5 mg tablet Take 1 tablet by mouth three times daily. Disp: 90 tablet Rfl: 11 glimepiride (AMARYL) 1 mg tablet Take 1 tablet by mouth daily with breakfast. Disp: 90 tablet Rfl: 3 metoprolol tartrate, short acting, (LOPRESSOR) 25 mg tablet Take 1 tablet by mouth every 12 hours. Disp: 180 tablet Rfl: 3 ketoconazole (NIZORAL) 2 % shampoo Use as a body wash, most specifically the chest, daily for itching and flaking; may keep in own shower Disp: 340 mL Rfl: 6 atorvastatin (LIPITOR) 80 mg tablet Take 1 tablet by mouth once daily. Disp: 90 tablet Rfl: 3 tamsulosin ER (FLOMAX) 0.4 mg cp24 Take 1 capsule by mouth every evening. for prostate Disp: 90 capsule Rfl: 3 metFORMIN (GLUCOPHAGE) 500 mg tablet Take 1 tablet by mouth three times daily with meals. Disp: 270 tablet Rfl: 3 nitroglycerin sublingual (NITROSTAT) 0.4 mg SL tablet Take 1 tablet by mouth as needed. for chest pain; dissolve on tongue. If no pain relief call 911. Disp: 2 Bottle of 25 Rfl: 5 Ranitidine HCl 300 mg tablet Take with evening meal. Disp: 30 tablet Rfl: 5 magnesium oxide (MAG-OX) 400 mg tablet Take 1 tablet by mouth once daily. Disp: 90 tablet Rfl: 3 COMPOUNDED PRESCRIPTION Please eval and fix any issues with walker.Dx: I50.33, I25.10, E66.01, M54.42, M25.551 Disp: 1 Device Rfl: 0 bisacodyl (DULCOLAX) 10 mg supp 1 Suppository by RECTAL route once daily as needed (for constipation). Disp: Rfl: 0 polyethylene glycol 3350 (MIRALAX, GLYCOLAX) 17 gram/dose powder 17 g up to twice daily as needed prn constipation Disp: Rfl: 0 aspirin, enteric coated (ADULT LOW DOSE ASPIRIN) 81 mg EC tablet Take 1 tablet by mouth once daily. Disp: 90 tablet Rfl: 3 COMPOUNDED PRESCRIPTION Glucometer high/low test solution for accucheck. DX: DM Disp: 1 Bottle Rfl: 3 COMPOUNDED PRESCRIPTION Please perform a nocturnal oximetry on room air on BiPAP. Diagnosis: HypoxiaPlease fax results to [phone] Attn: Glendy Disp: 1 Each Rfl: 0 Lancets (ACCU-CHEK FASTCLIX) lancets Test glucose twice weekly. Dx: 250.00. Insulin Use: no Disp: 100 Each Rfl: 11 blood sugar diagnostic test strip testing twice weekly dx 250.00 insulin no Disp: 50 Strip Rfl: 12 Blood-Glucose Meter, Drum-type (ACCU-CHEK COMPACT PLUS CARE) kit Test fasting blood sugar 1-2 times a week and 2 hrs post meal 1-2 times a week. Disp: 1 Kit Rfl: 0 Blood-Glucose Meter (ONETOUCH ULTRA 2) monitoring kit 1 Each as needed. One Touch Meter Kit Diagnosis: Diabetes Mellitus Disp: 1 Each Rfl: 0 Blood Glucose Control, Normal (OT ULTRA/FASTTRACK CONTROL) soln Test controls as needed. Disp: 1 Each Rfl: 3 COMPOUNDED PRESCRIPTION BIPAP setting: IPAP 22cm water with heated humidification EPAP setting of 16cm with supplemental oxygen bleed in at 2lt per minute. Mask (per patient preference) and supplies for lifetime. Please add chin strap DX EDMOND 327.23 Disp: 1 Act Rfl: 99 No current facility-administered medications for this visit. (currently taking) Anthropometrics: Height: Last 1 Encounter Ht Readings: Date: Ht: 03/07/2018 182.9 cm (6') Current weight: Last 1 Encounter Wt Readings: Date: Wt: 03/07/2018 149.2 kg (329 lb) Body mass index is 44.62 kg/m?. Resting Metabolic Rate: 2265 NUTRITION ASSESSMENT: Malnutrition Screening Significant unintentional weight loss? No Eating less than 75% of usual intake for more than 2 weeks? No RECOMMENDED MALNUTRITION DIAGNOSIS: NO MALNUTRITION IDENTIFIED Educational materials provided: none this visit READINESS TO LEARN Cognitive ability: Alert and oriented Motivation to learn: Interested Family support: Unable to assess - Family not present Instruction provided to: Patient Patient learns best by: Individual Instruction Factors affecting learning: None Physical limitations affecting learning: None Likelihood of Adherence: Moderate Patient presents for follow up MNT as relates to diabetes, weight control. Continues to make choices as able with foods provided. Limited exercise and activity. Note almost 3 pounds lost since visit, continues to trend down in weight. Fasting this morning 149 range. Usually 100 range. Nutrition Diagnosis: Overweight Obesity, related to; excess energy intake and physical inactivity, as evidenced by BMI above normative standard for age and gender. Nutrition Intervention 03/07/2018: modify type and amount of food or beverage 1.try to use pool for exercise 2. Stop eating when comfortable not full, smaller portions, avoid desserts 3. Try for at least some exercise daily/twice daily 4. All beverages calorie free and sugar free, no juice. Eat the friut and drink water Nutrition Monitoring AND Evaluation: weightloss, glucose in target range Criteria: patient update Need for Follow up: 4-6 weeks Referred/Supervised by: Carolyn/Christopher NOBLE Billing Type: Re-assess/15 min 2 units SIGNATURE: MS UYEN Jeffries PATIENT NAME: Mayco Kendrick DATE: March 07, 2018 TIME: 1:16 PM MS UYEN Jeffries 03/07/2018 1:35 PM Signed 1.try to use pool for exercise 2. Stop eating when comfortable not full, smaller portions, avoid desserts 3. Try for at least some exercise daily/twice daily 4. All beverages calorie free and sugar free, no juice. 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 Stop eating when comfortable not full, smaller portions, avoid desserts 3. Try for at least some exercise daily/twice daily 4. All beverages calorie free and sugar free, no juice. 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 SERTRALINE 05/02/2013 8 - GI Upset Date Reviewed: 03/07/2018 Reviewed by: Rebecca Sanders - Fully Assessed Prescriptions as of 03/07/2018 Sig: DOCUSATE SODIUM 100 MG CAPSULE Take 1 capsule by mouth twice* ALUMINUM-MAG HYDROXIDE-SIMETH* Take 20 mL by mouth every 6 h* PANTOPRAZOLE 40 MG TABLET,DEL* Take 1 tablet by mouth daily * TRAZODONE 50 MG TABLET Take 1 tablet by mouth at bed* GUAIFENESIN 100 MG/5 ML ORAL * Take 10 mL by mouth three agnes* TRIAMCINOLONE ACETONIDE 0.1 %* Apply to itching rash on ches* COMPOUNDED PRESCRIPTION Rollator, # one Dx: I50.33, I* AMMONIUM LACTATE 12 % TOPICAL* Apply 1 application to affect* RIVAROXABAN 20 MG TABLET Take 1 tablet by mouth daily * FUROSEMIDE 80 MG TABLET One PO daily in AM FUROSEMIDE 40 MG TABLET One PO daily at dinner OXYBUTYNIN CHLORIDE 5 MG TABL* Take 1 tablet by mouth three * GLIMEPIRIDE 1 MG TABLET Take 1 tablet by mouth daily * METOPROLOL TARTRATE 25 MG TAB* Take 1 tablet by mouth every * KETOCONAZOLE 2 % SHAMPOO Use as a body wash, most spec* ATORVASTATIN 80 MG TABLET Take 1 tablet by mouth once d* TAMSULOSIN 0.4 MG CAPSULE Take 1 capsule by mouth every* METFORMIN 500 MG TABLET Take 1 tablet by mouth three * NITROGLYCERIN 0.4 MG SUBLINGU* Take 1 tablet by mouth as nee* RANITIDINE 300 MG TABLET Take with evening meal. MAGNESIUM OXIDE 400 MG TABLET Take 1 tablet by mouth once d* COMPOUNDED PRESCRIPTION Please eval and fix any issue* BISACODYL 10 MG RECTAL SUPPOS* 1 Suppository by RECTAL route* POLYETHYLENE GLYCOL 3350 17 G* 17 g up to twice daily as nee* ASPIRIN 81 MG TABLET,DELAYED * Take 1 tablet by mouth once d* COMPOUNDED PRESCRIPTION Glucometer high/low test solu* COMPOUNDED PRESCRIPTION Please perform a nocturnal ox* LANCETS Test glucose twice weekly. Dx* BLOOD SUGAR DIAGNOSTIC STRIPS testing twice weekly dx 250* BLOOD-GLUCOSE METER, DRUM-TYP* Test fasting blood sugar 1-2 * BLOOD-GLUCOSE METER KIT 1 Each as needed. One Touch M* BLOOD GLUCOSE CONTROL, NORMAL* Test controls as needed. * COMPOUNDED PRESCRIPTION BIPAP setting: IPAP 22cm wate* Encounter Status:Closed by TOMMY VALLADARES RD REBECCA JUNIOR on 03/07/18 PROGRESS Observed: 03/07/2018 Status: COMPLETED Source: [place] 1:14 PM [facility] HNO ID: [id number] Author: Rebecca Sanders Service: (none) Author Type: Registered Dietitian Type: Progress Notes Filed: 03/07/2018 1:41 PM Note Text: Nutritional Therapy Re-Assessment PAIN: Is the patient having any pain that is interfering with oral / enteral intake? No 0 on a scale of 0 to 10 PROGRESS: Nutrition Intervention (date of last encounter 01/24/18): 1. When cleared for exercise get in pool for exercise 2. Continue current guidelines 3. Stop eating at comfortable, not full CHANGES IN TREATMENT: Patient met goal(s): Partially Actions to implement interventions: Exercise-3 x last week-walk around the building, leg exercises- Diet History: Provided by facility, provided smaller portions Choosing salads, better choices unsweet iced tea, water, o juice less sugar juice CLINICAL IMPRESSIONS: good REVISIONS IN DIAGNOSIS: Diagnosis: has not changed. Allergies: Lisinopril; Sertraline Medications: Current Outpatient Prescriptions: docusate sodium (DOC-Q-LACE) 100 mg capsule Take 1 capsule by mouth twice daily as needed. Disp: 180 capsule Rfl: 3 aluminum AND magnesium hydroxide-simethicone (MAALOX PLUS EXTRA STRENGTH) 400-400-40 mg/5 mL suspension Take 20 mL by mouth every 6 hours as needed (upset stomach). Disp: 500 mL Rfl: [address] (PROTONIX) 40 mg tablet Take 1 tablet by mouth daily before breakfast. Take on empty stomach, 1/2 hr before meal. Per Gastroenterology Disp: 30 tablet Rfl: 11 traZODone (DESYREL) 50 mg tablet Take 1 tablet by mouth at bedtime as needed (sedation). Disp: 15 tablet Rfl: 5 guaiFENesin (SILTUSSIN SA) 100 mg/5 mL syrup Take 10 mL by mouth three times daily as needed. Disp: Rfl: 0 triamcinolone acetonide (KENALOG) 0.1 % cream Apply to itching rash on chest twice daily ONLY when needed; may keep in room Disp: 454 g Rfl: 2 COMPOUNDED PRESCRIPTION Rollator, # one Dx: I50.33, I25.700, I48.0, J45.20, E66.01, M54.42, M25.551, Z91.81 Disp: 1 Device Rfl: 0 ammonium lactate (LAC-HYDRIN) 12 % cream Apply 1 application to affected area twice daily as needed. Disp: 385 g Rfl: 11 rivaroxaban (XARELTO) 20 mg tablet Take 1 tablet by mouth daily with dinner. Disp: Rfl: furosemide (LASIX) 80 mg tablet One PO daily in AM Disp: 90 tablet Rfl: 3 furosemide (LASIX) 40 mg tablet One PO daily at dinner Disp: 90 tablet Rfl: 3 oxybutynin (DITROPAN) 5 mg tablet Take 1 tablet by mouth three times daily. Disp: 90 tablet Rfl: 11 glimepiride (AMARYL) 1 mg tablet Take 1 tablet by mouth daily with breakfast. Disp: 90 tablet Rfl: 3 metoprolol tartrate, short acting, (LOPRESSOR) 25 mg tablet Take 1 tablet by mouth every 12 hours. Disp: 180 tablet Rfl: 3 ketoconazole (NIZORAL) 2 % shampoo Use as a body wash, most specifically the chest, daily for itching and flaking; may keep in own shower Disp: 340 mL Rfl: 6 atorvastatin (LIPITOR) 80 mg tablet Take 1 tablet by mouth once daily. Disp: 90 tablet Rfl: 3 tamsulosin ER (FLOMAX) 0.4 mg cp24 Take 1 capsule by mouth every evening. for prostate Disp: 90 capsule Rfl: 3 metFORMIN (GLUCOPHAGE) 500 mg tablet Take 1 tablet by mouth three times daily with meals. Disp: 270 tablet Rfl: 3 nitroglycerin sublingual (NITROSTAT) 0.4 mg SL tablet Take 1 tablet by mouth as needed. for chest pain; dissolve on tongue. If no pain relief call 911. Disp: 2 Bottle of 25 Rfl: 5 Ranitidine HCl 300 mg tablet Take with evening meal. Disp: 30 tablet Rfl: 5 magnesium oxide (MAG-OX) 400 mg tablet Take 1 tablet by mouth once daily. Disp: 90 tablet Rfl: 3 COMPOUNDED PRESCRIPTION Please eval and fix any issues with walker.Dx: I50.33, I25.10, E66.01, M54.42, M25.551 Disp: 1 Device Rfl: 0 bisacodyl (DULCOLAX) 10 mg supp 1 Suppository by RECTAL route once daily as needed (for constipation). Disp: Rfl: 0 polyethylene glycol 3350 (MIRALAX, GLYCOLAX) 17 gram/dose powder 17 g up to twice daily as needed prn constipation Disp: Rfl: 0 aspirin, enteric coated (ADULT LOW DOSE ASPIRIN) 81 mg EC tablet Take 1 tablet by mouth once daily. Disp: 90 tablet Rfl: 3 COMPOUNDED PRESCRIPTION Glucometer high/low test solution for accucheck. DX: DM Disp: 1 Bottle Rfl: 3 COMPOUNDED PRESCRIPTION Please perform a nocturnal oximetry on room air on BiPAP. Diagnosis: HypoxiaPlease fax results to [phone] Attn: Glendy Disp: 1 Each Rfl: 0 Lancets (ACCU-CHEK FASTCLIX) lancets Test glucose twice weekly. Dx: 250.00. Insulin Use: no Disp: 100 Each Rfl: 11 blood sugar diagnostic test strip testing twice weekly dx 250.00 insulin no Disp: 50 Strip Rfl: 12 Blood-Glucose Meter, Drum-type (ACCU-CHEK COMPACT PLUS CARE) kit Test fasting blood sugar 1-2 times a week and 2 hrs post meal 1- 2 times a week. Disp: 1 Kit Rfl: 0 Blood-Glucose Meter (ONETOUCH ULTRA 2) monitoring kit 1 Each as needed. One Touch Meter Kit Diagnosis: Diabetes Mellitus Disp: 1 Each Rfl: 0 Blood Glucose Control, Normal (OT ULTRA/FASTTRACK CONTROL) soln Test controls as needed. Disp: 1 Each Rfl: 3 COMPOUNDED PRESCRIPTION BIPAP setting: IPAP 22cm water with heated humidification EPAP setting of 16cm with supplemental oxygen bleed in at 2lt per minute. Mask (per patient preference) and supplies for lifetime. Please add chin strap DX EDMOND 327.23 Disp: 1 Act Rfl: 99 No current facility-administered medications for this visit. (currently taking) Anthropometrics: Height: Last 1 Encounter Ht Readings: Date: Ht: 03/07/2018 182.9 cm (6') Current weight: Last 1 Encounter Wt Readings: Date: Wt: 03/07/2018 149.2 kg (329 lb) Body mass index is 44.62 kg/m?. Resting Metabolic Rate: 2265 NUTRITION ASSESSMENT: Malnutrition Screening Significant unintentional weight loss? No Eating less than 75% of usual intake for more than 2 weeks? No RECOMMENDED MALNUTRITION DIAGNOSIS: NO MALNUTRITION IDENTIFIED Educational materials provided: none this visit READINESS TO LEARN Cognitive ability: Alert and oriented Motivation to learn: Interested Family support: Unable to assess - Family not present Instruction provided to: Patient Patient learns best by: Individual Instruction Factors affecting learning: None Physical limitations affecting learning: None Likelihood of Adherence: Moderate Patient presents for follow up MNT as relates to diabetes, weight control. Continues to make choices as able with foods provided. Limited exercise and activity. Note almost 3 pounds lost since visit, continues to trend down in weight. Fasting this morning 149 range. Usually 100 range. Nutrition Diagnosis: Overweight Obesity, related to; excess energy intake and physical inactivity, as evidenced by BMI above normative standard for age and gender. Nutrition Intervention 03/07/2018: modify type and amount of food or beverage 1.try to use pool for exercise 2. Stop eating when comfortable not full, smaller portions, avoid desserts 3. Try for at least some exercise daily/twice daily 4. All beverages calorie free and sugar free, no juice. Eat the friut and drink water Nutrition Monitoring AND Evaluation: weightloss, glucose in target range Criteria: patient update Need for Follow up: 4-6 weeks Referred/Supervised by: Carolyn/Christopher MNT Billing Type: Re-assess/15 min 2 units SIGNATURE: Rebecca Sanders MS RD LD PATIENT NAME: Mayco Kendrick DATE: March 07, 2018 TIME: 1:16 PM BD DXA - AXIAL Observed: 03/07/2018 Status: F Source: [place] 10:36 AM [facility] REPOSITORY * * *Final Report* * * DATE OF EXAM: Mar 07 2018 10:36AM [facility] 0804 - BD DXA - AXIAL [place] / PROCEDURE REASON: Wedge compression fracture of first lumbar vertebra, initial encounter for close * * * * Physician Interpretation * * * * INDICATION: Wedge compression fracture of first lumbar vertebra, initial encounter for closed fracture TECHNIQUE: Low dose AP spine and left forearm images COMPARISON: LUMBAR SPINE: The bone mineral density from L2 through L4 is 1.341 grams per square centimeter which yields a T-score of 2.1. . LEFT FOREARM: The bone mineral density of the radius 1/3 is 0.707 grams per square centimeter which yields a T-score of -2.1 . . Hips were not imaged due to prior surgeries. IMPRESSION: Osteopenia in the forearm. [facility]. CLASSIFICATION OF BONE MASS CLASSIFICATION T-SCORE Normal Greater than -1 Low Bone Mass Between -1 and -2.5 (Osteopenia) Osteoporosis Less than or equal to -2.5 Librarian Head: PHILIP Transcribe Date/Time: Mar 07 2018 12:04P Dictated by : CHELO PALMER MD This examination was interpreted and the report reviewed and electronically signed by: CHELO PALMER MD on Mar 07 2018 12:05PM EST [id number] PROGRESS Observed: 03/07/2018 Status: COMPLETED Source: [place] 10:15 AM [facility] REPOSITORY HNO ID: [id number] Author: Lily Jiang Service: (none) Author Type: (none) Type: Progress Notes Filed: 03/07/2018 10:36 AM Note Text: Mayco Kendrick March 07, 2018 [id number] Double identification: Patient identified by name and Bone Density Completed. Lily Marroquin Rt patient told of radiation jk 10:30 am PROGRESS Observed: 03/03/2018 Status: COMPLETED Source: [place] 2:00 PM [facility] REPOSITORY HNO ID: [id number] Author: Beba Carter Ma Service: (none) Author Type: (none) Type: Progress Notes Filed: 03/24/2018 7:40 AM Note Text: AMB ROOMING INTAKE FLOWSHEET DATA Risk Screening Do you have concerns about personal safety or safety in the home?: No Pain Pain Score: 4/10 Pain Location: Hand-Left Description: Sharp Duration Amount of Time: 1 Duration Units: Weeks Frequency: Continuous Intervention: Splinting Patient here today for 6 week 6 days post op left ulnar nerve decompression and left CTR. States that he banged his hand a week ago and he has been having sharp pain. He has started wearing his wrist brace again. CNOV Observed: 03/03/2018 Status: COMPLETED Source: [place] 1:25 PM [facility] REPOSITORY Office Visit (ORTHWS) MAYCO KENDRICK ([id number]) 1940 M NFR Date Time Provider Department 7/12/18 1:25 PM RUDDY CHAVEZ During your visit today, we recorded the following information about you: Beba Carter Kylee 03/24/2018 7:40 AM Signed AMB ROOMING INTAKE FLOWSHEET DATA Risk Screening Do you have concerns about personal safety or safety in the home?: No Pain Pain Score: 4/10 Pain Location: Hand-Left Description: Sharp Duration Amount of Time: 1 Duration Units: Weeks Frequency: Continuous Intervention: Splinting Patient here today for 6 week 6 days post op left ulnar nerve decompression and left CTR. States that he banged his hand a week ago and he has been having sharp pain. He has started wearing his wrist brace again. Ruddy Chavez MD 03/24/2018 7:40 AM Signed Ruddy Chavez MD Department of Orthopaedics Orthopaedics [address] [facility] [address] Dept: [phone] Dept March 03, 2018 CHIEF COMPLAINT: Post Op (6 week 6 days post op left ulnar nerve decompression and left CTR). 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 He's been doing well but he does state that he banged his hand about a week ago and is having more discomfort there. He's been wearing his brace just get things settled down. For 10 pain in the hand. No pain in the elbow. He is feeling improvement already in the sensation and function in his hand. Continue activities as tolerated and follow-up as needed. Exam: surgical sites of healed nicely. Full range of motion of the elbow and wrist. Neurovascular exam intact. Supporting Information Below: Medications: Current Outpatient Prescriptions: docusate sodium (DOC-Q-LACE) 100 mg capsule Take 1 capsule by mouth twice daily as needed. rivaroxaban (XARELTO) 20 mg tablet Take 1 tablet by mouth daily with dinner. furosemide (LASIX) 80 mg tablet One PO daily in AM furosemide (LASIX) 40 mg tablet One PO daily at dinner oxybutynin (DITROPAN) 5 mg tablet Take 1 tablet by mouth three times daily. glimepiride (AMARYL) 1 mg tablet Take 1 tablet by mouth daily with breakfast. metoprolol tartrate, short acting, (LOPRESSOR) 25 mg tablet Take 1 tablet by mouth every 12 hours. atorvastatin (LIPITOR) 80 mg tablet Take 1 tablet by mouth once daily. tamsulosin ER (FLOMAX) 0.4 mg cp24 Take 1 capsule by mouth every evening. for prostate metFORMIN (GLUCOPHAGE) 500 mg tablet Take 1 tablet by mouth three times daily with meals. nitroglycerin sublingual (NITROSTAT) 0.4 mg SL tablet Take 1 tablet by mouth as needed. for chest pain; dissolve on tongue. If no pain relief call 911. Ranitidine HCl 300 mg tablet Take with evening meal. magnesium oxide (MAG-OX) 400 mg tablet Take 1 tablet by mouth once daily. aspirin, enteric coated (ADULT LOW DOSE ASPIRIN) 81 mg EC tablet Take 1 tablet by mouth once daily. blood sugar diagnostic test strip testing twice weekly dx 250.00 insulin no Blood-Glucose Meter (WriteOn ULTRA 2) monitoring kit 1 Each as needed. One Touch Meter Kit Diagnosis: Diabetes Mellitus aluminum AND magnesium hydroxide-simethicone (MAALOX PLUS EXTRA STRENGTH) 400-400-40 mg/5 mL suspension Take 20 mL by mouth every 6 hours as needed (upset stomach). pantoprazole DR (PROTONIX) 40 mg tablet Take 1 tablet by mouth daily before breakfast. Take on empty stomach, 1/2 hr before meal. Per Gastroenterology traZODone (DESYREL) 50 mg tablet Take 1 tablet by mouth at bedtime as needed (sedation). guaiFENesin (SILTUSSIN SA) 100 mg/5 mL syrup Take 10 mL by mouth three times daily as needed. triamcinolone acetonide (KENALOG) 0.1 % cream Apply to itching rash on chest twice daily ONLY when needed; may keep in room COMPOUNDED PRESCRIPTION Rollator, # one Dx: I50.33, I25.700, I48.0, J45.20, E66.01, M54.42, M25.551, Z91.81 ammonium lactate (LAC-HYDRIN) 12 % cream Apply 1 application to affected area twice daily as needed. ketoconazole (NIZORAL) 2 % shampoo Use as a body wash, most specifically the chest, daily for itching and flaking; may keep in own shower COMPOUNDED PRESCRIPTION Please eval and fix any issues with walker.Dx: I50.33, I25.10, E66.01, M54.42, M25.551 bisacodyl (DULCOLAX) 10 mg supp 1 Suppository by RECTAL route once daily as needed (for constipation). polyethylene glycol 3350 (MIRALAX, GLYCOLAX) 17 gram/dose powder 17 g up to twice daily as needed prn constipation COMPOUNDED PRESCRIPTION Glucometer high/low test solution for accucheck. DX: DM COMPOUNDED PRESCRIPTION Please perform a nocturnal oximetry on room air on BiPAP. Diagnosis: HypoxiaPlease fax results to [phone] Attn: Glendy Lancets (ACCU-CHEK FASTCLIX) lancets Test glucose twice weekly. Dx: 250.00. Insulin Use: no Blood-Glucose Meter, Drum-type (ACCU-CHEK COMPACT PLUS CARE) kit Test fasting blood sugar 1-2 times a week and 2 hrs post meal 1-2 times a week. Blood Glucose Control, Normal (OT ULTRA/FASTTRACK CONTROL) soln Test controls as needed. COMPOUNDED PRESCRIPTION BIPAP setting: IPAP 22cm water with heated humidification EPAP setting of 16cm with supplemental oxygen bleed in at 2lt per minute. Mask (per patient preference) and supplies for lifetime. Please add chin strap DX EDMOND 327.23 No current facility-administered medications for this visit. Allergies: Lisinopril; Sertraline This note was partially generated using Cell[employer] voice recognition system, and there may be some incorrect words, spellings, and punctuation that were not noted in checking the note before saving. Ruddy Chavez MD Referring Provider: SELF [[id number]] Allergies As of Date: 03/03/2018 Noted Allergy Reaction LISINOPRIL 05/31/2014 14 - Other: See Comments Comments: Metallic taste in mouth. SERTRALINE 05/02/2013 8 - GI Upset Date Reviewed: 03/03/2018 Reviewed by: Beba Carter Ma - Fully Assessed Reason for Visit: Post Op [[id number]] Cmt: 6 week 6 days post op left ulnar nerve decompression and left CTR Primary Visit Diagnosis:Ulnar neuropathy at elbow of left upper extremity [G56.22] Other Visit Diagnosis:Carpal tunnel syndrome of left wrist [G56.02] Prescriptions as of 03/03/2018 Sig: DOCUSATE SODIUM 100 MG CAPSULE Take 1 capsule by mouth twice* RIVAROXABAN 20 MG TABLET Take 1 tablet by mouth daily * FUROSEMIDE 80 MG TABLET One PO daily in AM FUROSEMIDE 40 MG TABLET One PO daily at dinner OXYBUTYNIN CHLORIDE 5 MG TABL* Take 1 tablet by mouth three * GLIMEPIRIDE 1 MG TABLET Take 1 tablet by mouth daily * METOPROLOL TARTRATE 25 MG TAB* Take 1 tablet by mouth every * ATORVASTATIN 80 MG TABLET Take 1 tablet by mouth once d* TAMSULOSIN 0.4 MG CAPSULE Take 1 capsule by mouth every* METFORMIN 500 MG TABLET Take 1 tablet by mouth three * NITROGLYCERIN 0.4 MG SUBLINGU* Take 1 tablet by mouth as nee* RANITIDINE 300 MG TABLET Take with evening meal. MAGNESIUM OXIDE 400 MG TABLET Take 1 tablet by mouth once d* ASPIRIN 81 MG TABLET,DELAYED * Take 1 tablet by mouth once d* BLOOD SUGAR DIAGNOSTIC STRIPS testing twice weekly dx 250* BLOOD-GLUCOSE METER KIT 1 Each as needed. One Touch M* ALUMINUM-MAG HYDROXIDE-SIMETH* Take 20 mL by mouth every 6 h* PANTOPRAZOLE 40 MG TABLET,DEL* Take 1 tablet by mouth daily * TRAZODONE 50 MG TABLET Take 1 tablet by mouth at bed* GUAIFENESIN 100 MG/5 ML ORAL * Take 10 mL by mouth three agnes* TRIAMCINOLONE ACETONIDE 0.1 %* Apply to itching rash on ches* COMPOUNDED PRESCRIPTION Rollator, # one Dx: I50.33, I* AMMONIUM LACTATE 12 % TOPICAL* Apply 1 application to affect* KETOCONAZOLE 2 % SHAMPOO Use as a body wash, most spec* COMPOUNDED PRESCRIPTION Please eval and fix any issue* BISACODYL 10 MG RECTAL SUPPOS* 1 Suppository by RECTAL route* POLYETHYLENE GLYCOL 3350 17 G* 17 g up to twice daily as nee* COMPOUNDED PRESCRIPTION Glucometer high/low test solu* COMPOUNDED PRESCRIPTION Please perform a nocturnal ox* LANCETS Test glucose twice weekly. Dx* BLOOD-GLUCOSE METER, DRUM-TYP* Test fasting blood sugar 1-2 * BLOOD GLUCOSE CONTROL, NORMAL* Test controls as needed. * COMPOUNDED PRESCRIPTION BIPAP setting: IPAP 22cm wate* Problem List As Of Date 03/03/2018 Noted Resolved Mild intermittent asthma without complication [* Priority: A MALIGN NEOPL PROSTATE [C61] Priority: B More... Type II or unspecified type diabetes mellitus w* 01/18/2014 Allergic rhinitis, cause unspecified [J30.9] INVALID FOR* Priority: B More... Personal history of colonic polyps [Z86.010] Priority: C More... Lumbago [M54.5] INVALID FOR* Priority: M Bilateral leg edema [R60.0] INVALID FOR* Priority: A Carpal tunnel syndrome, bilateral [G56.03] INVALID FOR* Priority: M More... Essential hypertension, benign [I10] INVALID FOR* Priority: A More... Insomnia, unspecified [G47.00] INVALID FOR* Priority: B More... Benign neoplasm of rectum and anal canal [D12.8*INVALID FOR* Priority: C Diverticulosis of colon (without mention of hem*INVALID FOR* Priority: C Hypertrophy of nasal turbinates [J34.3] INVALID FOR* Priority: C More... 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 More... More... EDMOND (obstructive sleep apnea) [G47.33] INVALID FOR* Priority: B More... Mobitz (type) I (Wenckebach's) atrioventricular*INVALID FOR* Priority: A More... More... Mixed hyperlipidemia [E78.2] INVALID FOR* Priority: A More... DVT prophylaxis [[id number]] INVALID FOR*07/26/2014 More... More... More... More... More... More... Bradycardia [R00.1] INVALID FOR* Priority: A More... Venous stasis dermatitis of both lower extremit*INVALID FOR* Priority: B Counseling and coordination of care [Z71.89] INVALID FOR*04/12/2015 More... Hypomagnesemia [E83.42] INVALID FOR* Priority: B Diabetic eye exam (HCC) [Z01.00, E11.9] INVALID FOR* Priority: A More... Dry mouth [R68.2] INVALID FOR* Priority: B Noncompliance [Z91.19] INVALID FOR* Gastroesophageal reflux disease without esophag*INVALID FOR* Priority: A Coronary atherosclerosis due to lipid rich plaq*INVALID FOR* Priority: A Morbid obesity due to excess calories (HCC) [E6*INVALID FOR* Priority: B More... Essential tremor [G25.0] INVALID FOR* Priority: B Chronic cough [R05] INVALID FOR* Priority: B Well adult exam [Z00.00] INVALID FOR*01/07/2018 Priority: E More... Controlled type 2 diabetes mellitus with diabet*INVALID FOR* Priority: A Depression [F32.9] INVALID FOR* Priority: A Multiple open wounds of lower leg [S81.809A] INVALID FOR* Priority: D Colon cancer screening [Z12.11] INVALID FOR* Chest pain [R07.9] INVALID FOR* Priority: B More... Second degree heart block [I44.1] INVALID FOR* Priority: A More... Atherosclerosis of coronary artery bypass graft*INVALID FOR* Priority: A More... More... More... More... Hypoxia [R09.02] INVALID FOR* Chronic bilateral low back pain with left-sided*INVALID FOR* Priority: M Bilateral hip pain [M25.551, M25.552] INVALID FOR* Priority: M Paroxysmal atrial fibrillation (HCC) [I48.0] INVALID FOR* Priority: A More... 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 More... 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 More... Current use of proton pump inhibitor [Z79.899] INVALID FOR* More... More... Ulnar neuropathy at elbow of left upper extremi*INVALID FOR* Priority: M More... Hemoptysis [R04.2] INVALID FOR* Priority: A More... At high risk for falls [Z91.81] INVALID FOR* Memory changes [R41.3] INVALID FOR* Closed compression fracture of L1 lumbar verteb*INVALID FOR* Priority: Mild More... Chronic constipation [K59.09] INVALID FOR* Priority: C Encounter Status:Closed by RUDDY CHAVEZ MD on 03/24/18 ALLI Observed: 02/25/2018 Status: COMPLETED Source: [place] 12:00 AM [facility] REPOSITORY Telephone (PULMWS) MAYCO KENDRICK ([id number]) 1940 M NFR Date Time Provider Department 02/25/18 CHAVEZ HUFF PULWS During your visit today, we recorded the following information about you: Ese Majorjamison LEMUS 02/25/2018 10:46 AM Signed Patient calling asking about biopsy results from Bronchoscopy done at [place]. Patient said he is back on his coumadin and noticed bleeding when brushing his teeth this morning from his mouth. Please advise Bertrand Leon MD 02/25/2018 11:00 AM Signed If bleeding was from his gums he may need a softer tooth brush. Would also ask when was the last time he had his teeth cleaned. He may have gum disease that will make them bleed easier. Nelly Peres LPN 02/25/2018 1:13 PM Signed Patient states that he does use a soft tooth brush and his last cleaning was 08/2017. Patient states it is not when brushing his teeth but the blood in his mouth when he wakes up in the morning. This is happened the last 2 mornings. Bertrand Leon MD 02/25/2018 1:22 PM [facility]igned [facility] and find out if on coumadin or Xarelto since I have he was restarted on Xarelto. Also advise them the patient called to inform us he has had blood in his moth the past two mornings so not sure if he informed them but needs whichever anticoagulant he is on stopped. Will not plan on restarting any further anticoagulant due to recurrent bleeding. (FYI to Dr. Roblero) Antonia Hernandez Ma 02/25/2018 2:35 PM Signed Contacted [facility] and spoke to nurse aggie who advised patient did not advise to them off recurring bleeding of the mouth. She was given message below from pcp and also advised Dr. Roblero reviewed and no biopsy was taken during bronchoscopy Antonia Huff MD 02/25/2018 3:07 PM Signed These notes, bronchoscopy note, bronchoscopic culture and [facility] electronic medical record reviewed. IMPRESSION AND RECOMMENDATIONS: 1. Bronchoscopy was done to investigate hemoptysis with non- localizing CXR in this patient on oral anticoagulant, Xarelto. 2. Bronchoscopy showed no mass lesions, tumors, ulcers, and culture negative for infection. 3. Evidence suggests patient has simple chronic bronchitis (no airflow obstruction on PFT), and with exacerbation develops hemoptysis because of infection/increased inflammation and hemoptysis due to anticoagulant. 4. Simply stopping Xarelto does not appear to be a reasonable option in light of CAD (CABG x 4 1998) with stent LAD 1999. 5. For this reason, I must defer decision on continuation of Xarelto to discretion of Braulio Roblero MD, Cardiology. This information is shared with Braulio Roblero MD, Bertrand Leon MD, Melly Mccloud PA-C. Chavez Huff MD, [facility] Respiratory [facility] [address] [place] [id number] P: [phone] F: [phone] [email or web address] Allergies As of Date: 02/25/2018 Noted Allergy Reaction LISINOPRIL 05/31/2014 14 - Other: See Comments Comments: Metallic taste in mouth. SERTRALINE 05/02/2013 8 - GI Upset Date Reviewed: 02/25/2018 Reviewed by: Chavez Huff - Fully Assessed Reason for Visit: asking for biopsy results [Other] Visit Diagnoses:Paroxysmal atrial fibrillation (HCC) [I48.0] Hemoptysis [R04.2] Prescriptions as of 02/25/2018 Sig: DOCUSATE SODIUM 100 MG CAPSULE Take 1 capsule by mouth twice* ALUMINUM-MAG HYDROXIDE-SIMETH* Take 20 mL by mouth every 6 h* PANTOPRAZOLE 40 MG TABLET,DEL* Take 1 tablet by mouth daily * TRAZODONE 50 MG TABLET Take 1 tablet by mouth at bed* GUAIFENESIN 100 MG/5 ML ORAL * Take 10 mL by mouth three agnes* TRIAMCINOLONE ACETONIDE 0.1 %* Apply to itching rash on ches* COMPOUNDED PRESCRIPTION Rollator, # one Dx: I50.33, I* AMMONIUM LACTATE 12 % TOPICAL* Apply 1 application to affect* RIVAROXABAN 20 MG TABLET Take 1 tablet by mouth daily * FUROSEMIDE 80 MG TABLET One PO daily in AM FUROSEMIDE 40 MG TABLET One PO daily at dinner OXYBUTYNIN CHLORIDE 5 MG TABL* Take 1 tablet by mouth three * GLIMEPIRIDE 1 MG TABLET Take 1 tablet by mouth daily * METOPROLOL TARTRATE 25 MG TAB* Take 1 tablet by mouth every * KETOCONAZOLE 2 % SHAMPOO Use as a body wash, most spec* ATORVASTATIN 80 MG TABLET Take 1 tablet by mouth once d* TAMSULOSIN 0.4 MG CAPSULE Take 1 capsule by mouth every* METFORMIN 500 MG TABLET Take 1 tablet by mouth three * NITROGLYCERIN 0.4 MG SUBLINGU* Take 1 tablet by mouth as nee* RANITIDINE 300 MG TABLET Take with evening meal. MAGNESIUM OXIDE 400 MG TABLET Take 1 tablet by mouth once d* COMPOUNDED PRESCRIPTION Please eval and fix any issue* BISACODYL 10 MG RECTAL SUPPOS* 1 Suppository by RECTAL route* POLYETHYLENE GLYCOL 3350 17 G* 17 g up to twice daily as nee* ASPIRIN 81 MG TABLET,DELAYED * Take 1 tablet by mouth once d* COMPOUNDED PRESCRIPTION Glucometer high/low test solu* COMPOUNDED PRESCRIPTION Please perform a nocturnal ox* LANCETS Test glucose twice weekly. Dx* BLOOD SUGAR DIAGNOSTIC STRIPS testing twice weekly dx 250* BLOOD-GLUCOSE METER, DRUM-TYP* Test fasting blood sugar 1-2 * BLOOD-GLUCOSE METER KIT 1 Each as needed. One Touch M* BLOOD GLUCOSE CONTROL, NORMAL* Test controls as needed. * COMPOUNDED PRESCRIPTION BIPAP setting: IPAP 22cm wate* Problem List As Of Date 02/25/2018 Noted Resolved Mild intermittent asthma without complication [* Priority: A MALIGN NEOPL PROSTATE [C61] Priority: B More... Type II or unspecified type diabetes mellitus w* 01/18/2014 Allergic rhinitis, cause unspecified [J30.9] INVALID FOR* Priority: B More... Personal history of colonic polyps [Z86.010] Priority: C More... Lumbago [M54.5] INVALID FOR* Priority: M Bilateral leg edema [R60.0] INVALID FOR* Priority: A Carpal tunnel syndrome, bilateral [G56.03] INVALID FOR* Priority: M More... Essential hypertension, benign [I10] INVALID FOR* Priority: A More... Insomnia, unspecified [G47.00] INVALID FOR* Priority: B More... Benign neoplasm of rectum and anal canal [D12.8*INVALID FOR* Priority: C Diverticulosis of colon (without mention of hem*INVALID FOR* Priority: C Hypertrophy of nasal turbinates [J34.3] INVALID FOR* Priority: C More... 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 More... More... EDMOND (obstructive sleep apnea) [G47.33] INVALID FOR* Priority: B More... Mobitz (type) I (Wenckebach's) atrioventricular*INVALID FOR* Priority: A More... More... Mixed hyperlipidemia [E78.2] INVALID FOR* Priority: A More... DVT prophylaxis [LJY4835] INVALID FOR*07/26/2014 More... More... More... More... More... More... Bradycardia [R00.1] INVALID FOR* Priority: A More... Venous stasis dermatitis of both lower extremit*INVALID FOR* Priority: B Counseling and coordination of care [Z71.89] INVALID FOR*04/12/2015 More... Hypomagnesemia [E83.42] INVALID FOR* Priority: B Diabetic eye exam (HCC) [Z01.00, E11.9] INVALID FOR* Priority: A More... Dry mouth [R68.2] INVALID FOR* Priority: B Noncompliance [Z91.19] INVALID FOR* Gastroesophageal reflux disease without esophag*INVALID FOR* Priority: A Coronary atherosclerosis due to lipid rich plaq*INVALID FOR* Priority: A Morbid obesity due to excess calories (HCC) [E6*INVALID FOR* Priority: B More... Essential tremor [G25.0] INVALID FOR* Priority: B Chronic cough [R05] INVALID FOR* Priority: B Well adult exam [Z00.00] INVALID FOR*01/07/2018 Priority: E More... Controlled type 2 diabetes mellitus with diabet*INVALID FOR* Priority: A Depression [F32.9] INVALID FOR* Priority: A Multiple open wounds of lower leg [S81.809A] INVALID FOR* Priority: D Colon cancer screening [Z12.11] INVALID FOR* Chest pain [R07.9] INVALID FOR* Priority: B More... Second degree heart block [I44.1] INVALID FOR* Priority: A More... Atherosclerosis of coronary artery bypass graft*INVALID FOR* Priority: A More... More... More... More... Hypoxia [R09.02] INVALID FOR* Chronic bilateral low back pain with left-sided*INVALID FOR* Priority: M Bilateral hip pain [M25.551, M25.552] INVALID FOR* Priority: M Paroxysmal atrial fibrillation (HCC) [I48.0] INVALID FOR* Priority: A More... 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 More... 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 More... Current use of proton pump inhibitor [Z79.899] INVALID FOR* More... More... Ulnar neuropathy at elbow of left upper extremi*INVALID FOR* Priority: M More... Hemoptysis [R04.2] INVALID FOR* Priority: A More... At high risk for falls [Z91.81] INVALID FOR* Memory changes [R41.3] INVALID FOR* Closed compression fracture of L1 lumbar verteb*INVALID FOR* Priority: Mild More... Chronic constipation [K59.09] INVALID FOR* Priority: C Encounter Status:Closed by ANTONIA HERNANDEZ MA on 02/25/18 CNCO Observed: 02/25/2018 Status: COMPLETED Source: [place] 12:00 AM [facility] REPOSITORY Letter Text Mayco Kendrick February 26, 2018 Mr. Mayco Kendrick [address] [facility] [address] [place] [address] Dear Mr. Kendrick, IMPRESSION AND RECOMMENDATIONS: 1. Bronchoscopy was done to investigate cough with blood (hemoptysis) with non-localizing CXR in your case, on oral anticoagulant, Xarelto. 2. Bronchoscopy showed no mass lesions, tumors, ulcers, and culture negative for infection. 3. Evidence suggests that you have simple chronic bronchitis (no airflow obstruction on PFT), and with exacerbation (flare up) you develop hemoptysis because of infection/increased inflammation and bleeding due to anticoagulant. 4. Simply stopping Xarelto does not appear to be a reasonable option in light of your coronary artery disease, CABG x 4 1998, stent LAD 1999. 5. For this reason, I must defer decision on continuation of Xarelto to discretion of Braulio Roblero MD, Cardiology. This information has also been shared with Braulio Roblero MD, Bertrand Leon MD, Melly Mccloud PA-C. Chavez Huff MD, [facility] Respiratory [facility] [address] [place] [id number] P: [phone] F: [phone] [email or web address] Observed: 02/24/2018 Status: COMPLETED Source: [place] 12:00 AM [facility] REPOSITORY Patient Update (FAMPWS) MAYCO KENDRICK ([id number]) 1940 M NFR Date Time Provider Department 02/24/18 BERTRAND LEON FAMPWS During your visit today, we recorded the following information about you: Allergies As of Date: 02/24/2018 Noted Allergy Reaction LISINOPRIL 05/31/2014 14 - Other: See Comments Comments: Metallic taste in mouth. SERTRALINE 05/02/2013 8 - GI Upset Date Reviewed: 02/21/2018 Reviewed by: Bertrand Leon - Fully Assessed Prescriptions as of 02/24/2018 Sig: DOCUSATE SODIUM 100 MG CAPSULE Take 1 capsule by mouth twice* ALUMINUM-MAG HYDROXIDE-SIMETH* Take 20 mL by mouth every 6 h* PANTOPRAZOLE 40 MG TABLET,DEL* Take 1 tablet by mouth daily * TRAZODONE 50 MG TABLET Take 1 tablet by mouth at bed* GUAIFENESIN 100 MG/5 ML ORAL * Take 10 mL by mouth three agnes* TRIAMCINOLONE ACETONIDE 0.1 %* Apply to itching rash on ches* COMPOUNDED PRESCRIPTION Rollator, # one Dx: I50.33, I* AMMONIUM LACTATE 12 % TOPICAL* Apply 1 application to affect* X RIVAROXABAN 20 MG TABLET Take 1 tablet by mouth daily * FUROSEMIDE 80 MG TABLET One PO daily in AM X FUROSEMIDE 40 MG TABLET One PO daily at dinner OXYBUTYNIN CHLORIDE 5 MG TABL* Take 1 tablet by mouth three * GLIMEPIRIDE 1 MG TABLET Take 1 tablet by mouth daily * METOPROLOL TARTRATE 25 MG TAB* Take 1 tablet by mouth every * KETOCONAZOLE 2 % SHAMPOO Use as a body wash, most spec* ATORVASTATIN 80 MG TABLET Take 1 tablet by mouth once d* TAMSULOSIN 0.4 MG CAPSULE Take 1 capsule by mouth every* METFORMIN 500 MG TABLET Take 1 tablet by mouth three * NITROGLYCERIN 0.4 MG SUBLINGU* Take 1 tablet by mouth as nee* MAGNESIUM OXIDE 400 MG (241.3* Take 1 tablet by mouth once d* X RANITIDINE 300 MG TABLET Take with evening meal. COMPOUNDED PRESCRIPTION Please eval and fix any issue* BISACODYL 10 MG RECTAL SUPPOS* 1 Suppository by RECTAL route* X POLYETHYLENE GLYCOL 3350 17 G* 17 g up to twice daily as nee* X ASPIRIN 81 MG TABLET,DELAYED * Take 1 tablet by mouth once d* COMPOUNDED PRESCRIPTION Glucometer high/low test solu* COMPOUNDED PRESCRIPTION Please perform a nocturnal ox* LANCETS Test glucose twice weekly. Dx* BLOOD SUGAR DIAGNOSTIC STRIPS testing twice weekly dx 250* BLOOD-GLUCOSE METER, DRUM-TYP* Test fasting blood sugar 1-2 * BLOOD-GLUCOSE METER KIT 1 Each as needed. One Touch M* BLOOD GLUCOSE CONTROL, NORMAL* Test controls as needed. * COMPOUNDED PRESCRIPTION BIPAP setting: IPAP 22cm wate* Medication notes this encounter SUCRALFATE 1 GRAM TABLET >> Bertrand Leon MD 02/24/2018 10:20 PM as of 01/26/2018 Problem List As Of Date 02/24/2018 Noted Resolved Mild intermittent asthma without complication [* MALIGN NEOPL PROSTATE [C61] More... Type II or unspecified type diabetes mellitus w* 01/18/2014 Allergic rhinitis, cause unspecified [J30.9] INVALID FOR* More... Personal history of colonic polyps [Z86.010] More... Lumbago [M54.5] INVALID FOR* Bilateral leg edema [R60.0] INVALID FOR* Carpal tunnel syndrome, bilateral [G56.03] INVALID FOR* More... Essential hypertension, benign [I10] INVALID FOR* More... Insomnia, unspecified [G47.00] INVALID FOR* More... Benign neoplasm of rectum and anal canal [D12.8*INVALID FOR* Diverticulosis of colon (without mention of hem*INVALID FOR* Hypertrophy of nasal turbinates [J34.3] INVALID FOR* More... History of prostatitis [Z87.438] INVALID FOR* Heart block AV complete [I44.2] INVALID FOR* Frequency of urination [R35.0] INVALID FOR* Urgency of urination [R39.15] INVALID FOR* Acute on chronic diastolic CHF (congestive hear*INVALID FOR* More... More... More... EDMOND (obstructive sleep apnea) [G47.33] INVALID FOR* More... Mobitz (type) I (Wenckebach's) atrioventricular*INVALID FOR* More... More... Mixed hyperlipidemia [E78.2] INVALID FOR* More... DVT prophylaxis [[id number]] INVALID FOR*07/26/2014 More... More... More... More... More... More... Bradycardia [R00.1] INVALID FOR* More... Venous stasis dermatitis of both lower extremit*INVALID FOR* Counseling and coordination of care [Z71.89] INVALID FOR*04/12/2015 More... Hypomagnesemia [E83.42] INVALID FOR* Diabetic eye exam (HCC) [Z01.00, E11.9] INVALID FOR* More... Dry mouth [R68.2] INVALID FOR* Noncompliance [Z91.19] INVALID FOR* Gastroesophageal reflux disease without esophag*INVALID FOR* Coronary atherosclerosis due to lipid rich plaq*INVALID FOR* Morbid obesity due to excess calories (HCC) [E6*INVALID FOR* More... Essential tremor [G25.0] INVALID FOR* Chronic cough [R05] INVALID FOR* Well adult exam [Z00.00] INVALID FOR*01/07/2018 More... Controlled type 2 diabetes mellitus with diabet*INVALID FOR* Depression [F32.9] INVALID FOR* Multiple open wounds of lower leg [S81.809A] INVALID FOR* Colon cancer screening [Z12.11] INVALID FOR* Chest pain [R07.9] INVALID FOR* More... Second degree heart block [I44.1] INVALID FOR* More... Atherosclerosis of coronary artery bypass graft*INVALID FOR* More... More... More... More... Hypoxia [R09.02] INVALID FOR* Chronic bilateral low back pain with left-sided*INVALID FOR* Bilateral hip pain [M25.551, M25.552] INVALID FOR* Paroxysmal atrial fibrillation (HCC) [I48.0] INVALID FOR* More... 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 More... 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 More... Current use of proton pump inhibitor [Z79.899] INVALID FOR* More... More... Ulnar neuropathy at elbow of left upper extremi*INVALID FOR* More... Hemoptysis [R04.2] INVALID FOR* More... At high risk for falls [Z91.81] INVALID FOR* Memory changes [R41.3] INVALID FOR* More... Closed compression fracture of L1 lumbar verteb*INVALID FOR* More... Chronic constipation [K59.09] INVALID FOR* Medications Discontinued During This Encounter sucralfate (CARAFATE) 1 gram tablet 90 t* 6 01/27/2018 02/24/2018 Class: Med Update Route: ORAL Sig: Take 1 tablet by mouth three times daily before meals. 30 minutes before meals. Disc: Discontinued by another Health Care Provider Encounter Status:Closed by BERTRAND LEON on 07/28/18 PROGRESS Observed: 02/21/2018 Status: COMPLETED Source: [place] 10:45 AM [facility] REPOSITORY O ID: [id number] Author: Bertrand Leon Service: (none) Author Type: Physician Type: Progress Notes Filed: 02/21/2018 7:05 PM Note Text: Transitional Care Management Progress Note The patients TCM visit was performed within the 7 days of discharge. Patient's Date of discharge: 02/15/2018 Date of initial coordinator contact after discharge: 02/17/2018 Discharge diagnosis: fall, concussion and T12, L1 compression fracture. Medication review completed No. Medications were reviewed today and no changes had occurred in his med's. Bertrand Leon MD Provider Documentation: In follow-up of hospitalization, Mayco Kendrick is a 77 year old male with the chief complaint of f/u hospital stay I have reviewed the patient?s last hospital course including diagnostic testing performed during this hospitalization, their discharge medications, and my assessment and plan with the patient and any family members present at today?s visit. Chief Complaint Patient presents with: ED Follow-up: [facility] fall HPI Mayco Kendrick is a 77 year old male who presents here today for Hospital Discharge Follow up.. Patient was taken to [facility] on 02/16/2018 after a fall. He was getting up from a wheelchair when he felt weak and fell back into the wheelchair but slid to the ground. He did hit his head and neck on the right on a wall.. He thinks he may of lost consciousness. He complained of pain in the right side of his head and neck. He also had right wrist and hip pain. No other neurologic symptoms on review. His PE was remarkable for right occipital tenderness and right cervical paraspinal tenderness. Right hip and right wrist were also tender to palpation. CT of head was unremarkable except for chroninc changes. The right hip and wrist x-rays were negative for fractures. Lumbar x-ray showed a compression fracture at T12, L1 but could not be determined if new or old. He was placed in observation due to being on anticoagulation and his age. Patient was doing fine the next day and released. No changes made. Patient was advised to have w/u of compression fracture. patient denies any pain in the area of the compression fracture or anything new from typical. He is no longer having pain in the right hip or right wrist. No further head pain or headaches. No confusion. No vision changes, nausea or vomiting. Some slight sleep issues that is new and mood seems affected at times. Patient has noted harder stools over the last week and would like to have his stool softner changed to twice a day as needed. Past medical history, appointments, medications, allergies reviewed. Previous Medical History PAST MEDICAL HISTORY Diagnosis Date - Abdominal pain 08/11/2014 w some distention. Appears chronic -abdominal ultrasound - ACUTE GASTRITIS W/O HEMORRHAGE 12/21/2006 - Acute on chronic diastolic CHF (congestive heart failure), NYHA class 4 ([facility]) 03/08/2014 H/o HFpEF with diastolic dysfunction, ICM 55% EF Presents with CP and SOB Weight gain 30lbs in last 3 months Currently SOB and volume overload, in setting of unstable angina (killip 3) Plan Continue Diuresis As above for possible restrictive CM - ALLERGIC RHINITIS NOS 05/03/2006 - Asthma - ASTHMA UNSPECIFIED - Benign neoplasm of colon - Benign neoplasm of rectum and anal canal - Bilateral leg edema 11/05/2008 - Bradycardia 08/11/2014 Patient with sinus bradycardia with Type 1 Mobitz since 2011 however Pulse dropping to high 30s with dizziness Plan: Place on tele for monitoring EP evaluation for ? Pacemaker with new onset of symptoms 2/2 to relative hypotension vs bradycardia Daily EKGs to evaluate rhythm, still appears to be Mobitz type 1 Keep K and Mag above 4 and 2 respectively - Carpal tunnel syndrome 03/28/2010 - Chest pain 07/26/2014 73 year old male transferred from OSH for Unstable angina, chest pain on a Nitro and heparin Drip. First set of enzymes was negative. No ST-T wave chanes on EKG Mobitz type 1 AV block (chronic) ALVERTO score 5 With associated SOB and Pulmonary edema on CXR (Killip class 3) Found not to have acute plaque rupture ?Restrictive cardiomyopathy Will need LHC (LVEDP) and RHC tomorrow - per Dr. Pepe would like Dr. Randall PLAN NPO at midnight Call Cath Charge in AM to confirm schedule and attending Continue diuresis Additionally: - ASA - Stop plavix - reduce Atorvastatin to 20mg (home dose, last LDL ~55) - Losartan - Chest pain with painful respiration 08/11/2014 Chest heaviness. Unstable angina ? 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 Resume as the bp normalizes. 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 Say Pulmonary 06/2017 and said he would be very high risk for a Bronch due to obesity and known diastolic LV dysfunction. Patient has been back on Xarelto since early November per [facility]. - Hip fracture, right ([facility]) 09/22/2012 Treated medically - History of prostatitis 04/11/2013 - Hyperlipidemia - Hypertension - Hypertrophy of nasal turbinates 07/06/2012 consult with [facility] 06/29/2012 Plan to schedule ablation of inferior turbinates @ [facility]. - Insomnia, unspecified 06/17/2011 OARRS report reviewed October 22, 2011 Matt Taylor MD - Leg swelling - Lumbago 05/11/2007 - MALIGN NEOPL PROSTATE - Mobitz (type) I (Wenckebach's) atrioventricular block 07/26/[address] Eric Go in 2012. Chronic conduction abnormality. does not need a pacemaker. Here with concern for ACS EKG: mobitz type 1, unchanged from prior, no ST-T wave changes BP stable Plan: Monitor Avoiding BB - Morbid obesity 06/02/2011 07/08/2017: H: 72 in, W: 358 lb, BMI 48.54. 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 01/18/2014 - Type II or unspecified type diabetes mellitus without mention of complication, not stated as uncontrolled - Unspecified sleep apnea CPAP 18 with 1L - Urgency of urination 02/01/2014 Previous Surgical History PAST SURGICAL HISTORY Procedure Laterality Date - CABG, ARTERY-VEIN, TWO 1998 CABG, two grafts - CHOLECYSTECTOMY HX 10/14/2015 gangrenous gallbladder - COLONOSCOP W/ OR W/O BRS SPEC 01/27/2005 Colonoscopy - COLONOSCOP W/ OR W/O BRS SPEC 12/21/2006` repeat in -2011 - COLONOSCOP W/ OR W/O [facility] SPEC 05/18/2012 Colonoscopy repeat 5 years - COLONOSCOPY 12/29/2016 repeat 10 yrs - EGD 12/29/2016 - EGD W/O [facility] SPECIMEN W/BX 12/21/06 - EGD W/O OR W/BRUSH/WASH 01/27/2005 EGD - EGD W/O OR W/BRUSH/WASH 11/21/14 EGD - OPEN CORONARY ENDARTERECTOMY 1999 Angioplasty with stent placement - PACEMAKER 2016 - REMOVAL OF TONSILS,<12 Y/O Tonsillectomy - REPAIR RETINAL DETACH, C 10/2010 - REVISE MEDIAN N/CARPAL TUNNEL SURG Right 09/10/2017 Right CTR - REVISE MEDIAN N/CARPAL TUNNEL SURG Left 01/14/2018 Left CTR - REVISE ULNAR NERVE AT ELBOW Right 09/10/2017 Right ulnar nerve decompression - REVISE ULNAR NERVE AT ELBOW Left 01/14/2018 Left unlar nerve decompression - TOTAL HIP REPLACEMENT 2001 Hip replacement, total, right - TOTAL HIP REPLACEMENT 2002 Hip replacement, total, left Family History FAMILY HISTORY Problem Relation Age of Onset - Heart Father - Cancer Mother Lung - Heart Paternal Grandfather - Heart Brother Patient Allergies ALLERGIES Allergen Reactions - Lisinopril Other: See Comments Metallic taste in mouth. - Sertraline GI Upset Current Medications Current Outpatient Prescriptions on File Prior to Visit: aluminum AND magnesium hydroxide-simethicone (MAALOX PLUS EXTRA STRENGTH) 400-400-40 mg/5 mL suspension Take 20 mL by mouth every 6 hours as needed (upset stomach). traZODone (DESYREL) 50 mg tablet Take 1 tablet by mouth at bedtime as needed (sedation). docusate sodium (DOC-Q-LACE) 100 mg capsule Take 1 capsule by mouth once daily. triamcinolone acetonide (KENALOG) 0.1 % cream Apply to itching rash on chest twice daily ONLY when needed; may keep in room rivaroxaban (XARELTO) 20 mg tablet Take 1 tablet by mouth daily with dinner. furosemide (LASIX) 80 mg tablet One PO daily in AM furosemide (LASIX) 40 mg tablet One PO daily at dinner oxybutynin (DITROPAN) 5 mg tablet Take 1 tablet by mouth three times daily. glimepiride (AMARYL) 1 mg tablet Take 1 tablet by mouth daily with breakfast. metoprolol tartrate, short acting, (LOPRESSOR) 25 mg tablet Take 1 tablet by mouth every 12 hours. atorvastatin (LIPITOR) 80 mg tablet Take 1 tablet by mouth once daily. tamsulosin ER (FLOMAX) 0.4 mg cp24 Take 1 capsule by mouth every evening. for prostate metFORMIN (GLUCOPHAGE) 500 mg tablet Take 1 tablet by mouth three times daily with meals. magnesium oxide (MAG-OX) 400 mg tablet Take 1 tablet by mouth once daily. aspirin, enteric coated (ADULT LOW DOSE ASPIRIN) 81 mg EC tablet Take 1 tablet by mouth once daily. Lancets (ACCU-CHEK FASTCLIX) lancets Test glucose twice weekly. Dx: 250.00. Insulin Use: no blood sugar diagnostic test strip testing twice weekly dx 250.00 insulin no Blood-Glucose Meter (ONETOUCH ULTRA 2) monitoring kit 1 Each as needed. One Touch Meter Kit Diagnosis: Diabetes Mellitus Blood Glucose Control, Normal (OT ULTRA/FASTTRACK CONTROL) soln Test controls as needed. sucralfate (CARAFATE) 1 gram tablet Take 1 tablet by mouth three times daily before meals. 30 minutes before meals. pantoprazole DR (PROTONIX) 40 mg tablet Take 1 tablet by mouth daily before breakfast. Take on empty stomach, 1/2 hr before meal. Per Gastroenterology guaiFENesin (SILTUSSIN SA) 100 mg/5 mL syrup Take 10 mL by mouth three times daily as needed. COMPOUNDED PRESCRIPTION Rollator, # one Dx: I50.33, I25.700, I48.0, J45.20, E66.01, M54.42, M25.551, Z91.81 ammonium lactate (LAC-HYDRIN) 12 % cream Apply 1 application to affected area twice daily as needed. ketoconazole (NIZORAL) 2 % shampoo Use as a body wash, most specifically the chest, daily for itching and flaking; may keep in own shower nitroglycerin sublingual (NITROSTAT) 0.4 mg SL tablet Take 1 tablet by mouth as needed. for chest pain; dissolve on tongue. If no pain relief call 911. Ranitidine HCl 300 mg tablet Take with evening meal. COMPOUNDED PRESCRIPTION Please eval and fix any issues with walker.Dx: I50.33, I25.10, E66.01, M54.42, M25.551 bisacodyl (DULCOLAX) 10 mg supp 1 Suppository by RECTAL route once daily as needed (for constipation). polyethylene glycol 3350 (MIRALAX, GLYCOLAX) 17 gram/dose powder 17 g up to twice daily as needed prn constipation COMPOUNDED PRESCRIPTION Glucometer high/low test solution for accucheck. DX: DM COMPOUNDED PRESCRIPTION Please perform a nocturnal oximetry on room air on BiPAP. Diagnosis: HypoxiaPlease fax results to [phone] Attn: Glendy Blood-Glucose Meter, Drum-type (ACCU-CHEK COMPACT PLUS CARE) kit Test fasting blood sugar 1-2 times a week and 2 hrs post meal 1- 2 times a week. COMPOUNDED PRESCRIPTION BIPAP setting: IPAP 22cm water with heated humidification EPAP setting of 16cm with supplemental oxygen bleed in at 2lt per minute. Mask (per patient preference) and supplies for lifetime. Please add chin strap DX EDMOND 327.23 No current facility-administered medications on file prior to visit. 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 Alcohol use: Yes 31.5 oz/week Cans of Beer (12oz): 7, Mixed Drinks: 14 per week Comment: 2/beer/mixed drink daily-states no ETOH since 09/2017 Drug use: No Sexual activity: No Social History Narrative OARRS report reviewed October 22, 2011 Matt Taylor MD Review of Symptoms REVIEW OF SYSTEMS See HPI EXAM: BP 120/60 (BP Site: Left Arm, BP Position: Sitting, BP Cuff Size: Large Adult) Pulse 76 Resp 22 Wt (!) 148.3 kg (327 lb) BMI 44.34 kg/m? General Appearance: Well appearing, alert, in no acute distress, well-hydrated, well nourished., Morbidly obese. Eyes: Anicteric sclera. Pupils are equally round and reactive to light. Extraocular movements are intact. . Oropharynx: Lips, mucosa, and tongue normal, teeth and gums normal, oropharynx normal. Neck: Supple, no adenopathy; thyroid symmetric, normal size, no bruits. Back:no pain to palpation of vertebrae Lungs: Lungs clear to auscultation. No wheezing, rhonchi, rales. Heart: RRR without murmur, gallop, or rubs. No ectopy. Abdomen: Normal abdominal exam, Abdomen soft, non-tender. Bowel sounds normal. No masses, organomegaly. Neurologic: Sensation to light touch and nc 2-12 intact.. Health Maintenance List ZOSTER VACCINE (SHINGRIX)(1 of 2) due on 1991 DTAP,TDAP,TD(1 - Tdap) due on 07/31/2006 DILATED RETINAL EXAM due on 04/08/2018 INFLUENZA(1) due on 04/23/2018 HBA1C due on 07/26/2018 DIABETIC FOOT EXAM due on 09/16/2018 LDL due on 01/24/2019 COLORECTAL CANCER SCREENING,SEE MODIFIER due on 12/29/2026 ADULT PREVNAR-13 Completed PNEUMOVAX AGE 65 AND OVER WITH 5YR LOOKBACK Completed Data reviewed A/P ASSESSMENT/PLAN: 1. Fall, initial encounter - ICD9: E888.9, ICD10: W19.XXXA (primary diagnosis) - Patient seems to have recovered clinically with no residual body or joint pain. No new med changes. 2. Concussion with loss of consciousness, initial encounter - ICD9: 850.5, ICD10: S06.0X9A - Seems to be resolved. Explained to him that the mood and sleep issues should resolve over time as his brain heals. 3. Closed compression fracture of first lumbar vertebra, initial encounter ([facility]) - ICD9: 805.4, ICD10: S32.010A check - DXA-AXIAL SKELETON 4. Chronic constipation - ICD9: 564.00, ICD10: K59.09 - DOCUSATE SODIUM 100 MG CAPSULE will be changed to 1 twice a day as needed. Bertrand Leon MD CNOV Observed: 02/21/2018 Status: COMPLETED Source: [place] 10:40 AM [facility] REPOSIT[facility] Office Visit (FAMPWS) MAYCO KENDRICK ([id number]) 1940 [facility] Date Time Provider Department 02/21/18 10:40 AM BERTRAND LEON FAMPWS During your visit today, we recorded the following information about you: Pulse Respiration Blood pressure Weight 76/minute 22/minute 120/60 148.3 kg Bertrand Leon MD 02/21/2018 7:05 PM Signed Transitional Care Management Progress Note The patients TCM visit was performed within the 7 days of discharge. Patient's Date of discharge: 02/15/2018 Date of initial coordinator contact after discharge: 02/17/2018 Discharge diagnosis: fall, concussion and T12, L1 compression fracture. Medication review completed No. Medications were reviewed today and no changes had occurred in his med's. Bertrand Leon MD Provider Documentation: In follow-up of hospitalization, Mayco Kendrick is a 77 year old male with the chief complaint of f/u hospital stay I have reviewed the patient?s last hospital course including diagnostic testing performed during this hospitalization, their discharge medications, and my assessment and plan with the patient and any family members present at today?s visit. Chief Complaint Patient presents with: ED Follow-up: E[facility] fall HPI Mayco Kendrick is a 77 year old male who presents here today for Hospital Discharge Follow up.. Patient was taken to [facility] on 02/16/2018 after a fall. He was getting up from a wheelchair when he felt weak and fell back into the wheelchair but slid to the ground. He did hit his head and neck on the right on a wall.. He thinks he may of lost consciousness. He complained of pain in the right side of his head and neck. He also had right wrist and hip pain. No other neurologic symptoms on review. His PE was remarkable for right occipital tenderness and right cervical paraspinal tenderness. Right hip and right wrist were also tender to palpation. CT of head was unremarkable except for chroninc changes. The right hip and wrist x-rays were negative for fractures. Lumbar x-ray showed a compression fracture at T12, L1 but could not be determined if new or old. He was placed in observation due to being on anticoagulation and his age. Patient was doing fine the next day and released. No changes made. Patient was advised to have w/u of compression fracture. patient denies any pain in the area of the compression fracture or anything new from typical. He is no longer having pain in the right hip or right wrist. No further head pain or headaches. No confusion. No vision changes, nausea or vomiting. Some slight sleep issues that is new and mood seems affected at times. Patient has noted harder stools over the last week and would like to have his stool softner changed to twice a day as needed. Past medical history, appointments, medications, allergies reviewed. Previous Medical History PAST MEDICAL HISTORY Diagnosis Date - Abdominal pain 08/11/2014 w some distention. Appears chronic -abdominal ultrasound - ACUTE GASTRITIS W/O HEMORRHAGE 12/21/2006 - Acute on chronic diastolic CHF (congestive heart failure), NYHA class 4 (HCC) 03/08/2014 H/o HFpEF with diastolic dysfunction, ICM 55% EF Presents with CP and SOB Weight gain 30lbs in last 3 months Currently SOB and volume overload, in setting of unstable angina (killip 3) Plan Continue Diuresis As above for possible restrictive CM - ALLERGIC RHINITIS NOS 05/03/2006 - Asthma - ASTHMA UNSPECIFIED - Benign neoplasm of colon - Benign neoplasm of rectum and anal canal - Bilateral leg edema 11/05/2008 - Bradycardia 08/11/2014 Patient with sinus bradycardia with Type 1 Mobitz since 2011 however Pulse dropping to high 30s with dizziness Plan: Place on tele for monitoring EP evaluation for ? Pacemaker with new onset of symptoms 2/2 to relative hypotension vs bradycardia Daily EKGs to evaluate rhythm, still appears to be Mobitz type 1 Keep K and Mag above 4 and 2 respectively - Carpal tunnel syndrome 03/28/2010 - Chest pain 07/26/2014 73 year old male transferred from OSH for Unstable angina, chest pain on a Nitro and heparin Drip. First set of enzymes was negative. No ST-T wave chanes on EKG Mobitz type 1 AV block (chronic) ALVERTO score 5 With associated SOB and Pulmonary edema on CXR (Killip class 3) Found not to have acute plaque rupture ?Restrictive cardiomyopathy Will need LHC (LVEDP) and RHC tomorrow - per Dr. Pepe would like Dr. Randall PLAN NPO at midnight Call Cath Charge in AM to confirm schedule and attending Continue diuresis Additionally: - ASA - Stop plavix - reduce Atorvastatin to 20mg (home dose, last LDL ~55) - Losartan - Chest pain with painful respiration 08/11/2014 Chest heaviness. Unstable angina ? 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 Resume as the bp normalizes. 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 Say Pulmonary 06/2017 and said he would be very high risk for a Bronch due to obesity and known diastolic LV dysfunction. Patient has been back on Xarelto since early November per [facility]. - Hip fracture, right (HCC) 09/22/2012 Treated medically - History of prostatitis 04/11/2013 - Hyperlipidemia - Hypertension - Hypertrophy of nasal turbinates 07/06/2012 consult with [facility] 06/29/2012 Plan to schedule ablation of inferior turbinates @ [facility]. - Insomnia, unspecified 06/17/2011 OARRS report reviewed October 22, 2011 Matt Taylor MD - Leg swelling - Lumbago 05/11/2007 - MALIGN NEOPL PROSTATE - Mobitz (type) I (Wenckebach's) atrioventricular block 07/26/[address] Eric Go in 2012. Chronic conduction abnormality. does not need a pacemaker. Here with concern for ACS EKG: mobitz type 1, unchanged from prior, no ST-T wave changes BP stable Plan: Monitor Avoiding BB - Morbid obesity 06/02/2011 07/08/2017: H: 72 in, W: 358 lb, BMI 48.54. 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 01/18/2014 - Type II or unspecified type diabetes mellitus without mention of complication, not stated as uncontrolled - Unspecified sleep apnea CPAP 18 with 1L - Urgency of urination 02/01/2014 Previous Surgical History PAST SURGICAL HISTORY Procedure Laterality Date - CABG, ARTERY-VEIN, TWO 1998 CABG, two grafts - CHOLECYSTECTOMY HX 10/14/2015 gangrenous gallbladder - COLONOSCOP W/ OR W/O BRS SPEC 01/27/2005 Colonoscopy - COLONOSCOP W/ OR W/O BRS SPEC 12/21/2006` repeat in -2011 - COLONOSCOP W/ OR W/O [facility] SPEC 05/18/2012 Colonoscopy repeat 5 years - COLONOSCOPY 12/29/2016 repeat 10 yrs - EGD 12/29/2016 - EGD W/O [facility] SPECIMEN W/BX 12/21/06 - EGD W/O OR W/BRUSH/WASH 01/27/2005 EGD - EGD W/O OR W/BRUSH/WASH 11/21/14 EGD - OPEN CORONARY ENDARTERECTOMY 1999 Angioplasty with stent placement - PACEMAKER 2016 - REMOVAL OF TONSILS,<12 Y/O Tonsillectomy - REPAIR RETINAL DETACH, C 10/2010 - REVISE MEDIAN N/CARPAL TUNNEL SURG Right 09/10/2017 Right CTR - REVISE MEDIAN N/CARPAL TUNNEL SURG Left 01/14/2018 Left CTR - REVISE ULNAR NERVE AT ELBOW Right 09/10/2017 Right ulnar nerve decompression - REVISE ULNAR NERVE AT ELBOW Left 01/14/2018 Left unlar nerve decompression - TOTAL HIP REPLACEMENT 2000 Hip replacement, total, right - TOTAL HIP REPLACEMENT 2001 Hip replacement, total, left Family History FAMILY HISTORY Problem Relation Age of Onset - Heart Father - Cancer Mother Lung - Heart Paternal Grandfather - Heart Brother Patient Allergies ALLERGIES Allergen Reactions - Lisinopril Other: See Comments Metallic taste in mouth. - Sertraline GI Upset Current Medications Current Outpatient Prescriptions on File Prior to Visit: aluminum AND magnesium hydroxide-simethicone (MAALOX PLUS EXTRA STRENGTH) 400-400-40 mg/5 mL suspension Take 20 mL by mouth every 6 hours as needed (upset stomach). traZODone (DESYREL) 50 mg tablet Take 1 tablet by mouth at bedtime as needed (sedation). docusate sodium (DOC-Q-LACE) 100 mg capsule Take 1 capsule by mouth once daily. triamcinolone acetonide (KENALOG) 0.1 % cream Apply to itching rash on chest twice daily ONLY when needed; may keep in room rivaroxaban (XARELTO) 20 mg tablet Take 1 tablet by mouth daily with dinner. furosemide (LASIX) 80 mg tablet One PO daily in AM furosemide (LASIX) 40 mg tablet One PO daily at dinner oxybutynin (DITROPAN) 5 mg tablet Take 1 tablet by mouth three times daily. glimepiride (AMARYL) 1 mg tablet Take 1 tablet by mouth daily with breakfast. metoprolol tartrate, short acting, (LOPRESSOR) 25 mg tablet Take 1 tablet by mouth every 12 hours. atorvastatin (LIPITOR) 80 mg tablet Take 1 tablet by mouth once daily. tamsulosin ER (FLOMAX) 0.4 mg cp24 Take 1 capsule by mouth every evening. for prostate metFORMIN (GLUCOPHAGE) 500 mg tablet Take 1 tablet by mouth three times daily with meals. magnesium oxide (MAG-OX) 400 mg tablet Take 1 tablet by mouth once daily. aspirin, enteric coated (ADULT LOW DOSE ASPIRIN) 81 mg EC tablet Take 1 tablet by mouth once daily. Lancets (ACCU-CHEK FASTCLIX) lancets Test glucose twice weekly. Dx: 250.00. Insulin Use: no blood sugar diagnostic test strip testing twice weekly dx 250.00 insulin no Blood-Glucose Meter (Explain My SurgeryTOUCH ULTRA 2) monitoring kit 1 Each as needed. One Touch Meter Kit Diagnosis: Diabetes Mellitus Blood Glucose Control, Normal (OT ULTRA/FASTTRACK CONTROL) soln Test controls as needed. sucralfate (CARAFATE) 1 gram tablet Take 1 tablet by mouth three times daily before meals. 30 minutes before meals. pantoprazole DR (PROTONIX) 40 mg tablet Take 1 tablet by mouth daily before breakfast. Take on empty stomach, 1/2 hr before meal. Per Gastroenterology guaiFENesin (SILTUSSIN SA) 100 mg/5 mL syrup Take 10 mL by mouth three times daily as needed. COMPOUNDED PRESCRIPTION Rollator, # one Dx: I50.33, I25.700, I48.0, J45.20, E66.01, M54.42, M25.551, Z91.81 ammonium lactate (LAC-HYDRIN) 12 % cream Apply 1 application to affected area twice daily as needed. ketoconazole (NIZORAL) 2 % shampoo Use as a body wash, most specifically the chest, daily for itching and flaking; may keep in own shower nitroglycerin sublingual (NITROSTAT) 0.4 mg SL tablet Take 1 tablet by mouth as needed. for chest pain; dissolve on tongue. If no pain relief call 911. Ranitidine HCl 300 mg tablet Take with evening meal. COMPOUNDED PRESCRIPTION Please eval and fix any issues with walker.Dx: I50.33, I25.10, E66.01, M54.42, M25.551 bisacodyl (DULCOLAX) 10 mg supp 1 Suppository by RECTAL route once daily as needed (for constipation). polyethylene glycol 3350 (MIRALAX, GLYCOLAX) 17 gram/dose powder 17 g up to twice daily as needed prn constipation COMPOUNDED PRESCRIPTION Glucometer high/low test solution for accucheck. DX: DM COMPOUNDED PRESCRIPTION Please perform a nocturnal oximetry on room air on BiPAP. Diagnosis: HypoxiaPlease fax results to [phone] Attn: Glendy Blood-Glucose Meter, Drum-type (ACCU-CHEK COMPACT PLUS CARE) kit Test fasting blood sugar 1-2 times a week and 2 hrs post meal 1-2 times a week. COMPOUNDED PRESCRIPTION BIPAP setting: IPAP 22cm water with heated humidification EPAP setting of 16cm with supplemental oxygen bleed in at 2lt per minute. Mask (per patient preference) and supplies for lifetime. Please add chin strap DX EDMOND 327.23 No current facility-administered medications on file prior to visit. 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 Alcohol use: Yes 31.5 oz/week Cans of Beer (12oz): 7, Mixed Drinks: 14 per week Comment: 2/beer/mixed drink daily-states no ETOH since 09/2017 Drug use: No Sexual activity: No Social History Narrative OARRS report reviewed October 22, 2011 Matt Taylor MD Review of Symptoms REVIEW OF SYSTEMS See HPI EXAM: BP 120/60 (BP Site: Left Arm, BP Position: Sitting, BP Cuff Size: Large Adult) Pulse 76 Resp 22 Wt (!) 148.3 kg (327 lb) BMI 44.34 kg/m? General Appearance: Well appearing, alert, in no acute distress, well-hydrated, well nourished., Morbidly obese. Eyes: Anicteric sclera. Pupils are equally round and reactive to light. Extraocular movements are intact. . Oropharynx: Lips, mucosa, and tongue normal, teeth and gums normal, oropharynx normal. Neck: Supple, no adenopathy; thyroid symmetric, normal size, no bruits. Back:no pain to palpation of vertebrae Lungs: Lungs clear to auscultation. No wheezing, rhonchi, rales. Heart: RRR without murmur, gallop, or rubs. No ectopy. Abdomen: Normal abdominal exam, Abdomen soft, non-tender. Bowel sounds normal. No masses, organomegaly. Neurologic: Sensation to light touch and nc 2-12 intact.. Health Maintenance List ZOSTER VACCINE (SHINGRIX)(1 of 2) due on 1991 DTAP,TDAP,TD(1 - Tdap) due on 07/31/2006 DILATED RETINAL EXAM due on 04/08/2018 INFLUENZA(1) due on 04/23/2018 HBA1C due on 07/26/2018 DIABETIC FOOT EXAM due on 09/16/2018 LDL due on 01/24/2019 COLORECTAL CANCER SCREENING,SEE MODIFIER due on 12/29/2026 ADULT PREVNAR-13 Completed PNEUMOVAX AGE 65 AND OVER WITH 5YR LOOKBACK Completed Data reviewed A/P ASSESSMENT/PLAN: 1. Fall, initial encounter - ICD9: E888.9, ICD10: W19.XXXA (primary diagnosis) - Patient seems to have recovered clinically with no residual body or joint pain. No new med changes. 2. Concussion with loss of consciousness, initial encounter - ICD9: 850.5, ICD10: S06.0X9A - Seems to be resolved. Explained to him that the mood and sleep issues should resolve over time as his brain heals. 3. Closed compression fracture of first lumbar vertebra, initial encounter ([facility]) - ICD9: 805.4, ICD10: S32.010A check - DXA-AXIAL SKELETON 4. Chronic constipation - ICD9: 564.00, ICD10: K59.09 - DOCUSATE SODIUM 100 MG CAPSULE will be changed to 1 twice a day as needed. Bertrand Leon MD Referring Provider: SELF [200] Allergies As of Date: 02/21/2018 Noted Allergy Reaction LISINOPRIL 05/31/2014 14 - Other: See Comments Comments: Metallic taste in mouth. SERTRALINE 05/02/2013 8 - GI Upset Date Reviewed: 02/21/2018 Reviewed by: Bertrand Leon - Fully Assessed Reason for Visit: ED Follow-up [821] Cmt: ECH fall Primary Visit Diagnosis:Fall, initial encounter [W19.XXXA] Other Visit Diagnoses:Concussion with loss of consciousness, initial encounter [S06.0X9A] Closed compression fracture of first lumbar vertebra, initial encounter ([facility]) [S32.010A] Chronic constipation [K59.09] Order(s):DXA-AXIAL SKELETON [[id number]] Order #: [id number] FUTURE docusate sodium (DOC-Q-LACE) 100 mg capsuleTake 1 capsule by mouth twice daily as needed.Disp: 180 capsuleRfl: 3 Prescriptions as of 02/21/2018 Sig: DOCUSATE SODIUM 100 MG CAPSULE Take 1 capsule by mouth twice* ALUMINUM-MAG HYDROXIDE-SIMETH* Take 20 mL by mouth every 6 h* TRAZODONE 50 MG TABLET Take 1 tablet by mouth at bed* TRIAMCINOLONE ACETONIDE 0.1 %* Apply to itching rash on ches* RIVAROXABAN 20 MG TABLET Take 1 tablet by mouth daily * FUROSEMIDE 80 MG TABLET One PO daily in AM FUROSEMIDE 40 MG TABLET One PO daily at dinner OXYBUTYNIN CHLORIDE 5 MG TABL* Take 1 tablet by mouth three * GLIMEPIRIDE 1 MG TABLET Take 1 tablet by mouth daily * METOPROLOL TARTRATE 25 MG TAB* Take 1 tablet by mouth every * ATORVASTATIN 80 MG TABLET Take 1 tablet by mouth once d* TAMSULOSIN 0.4 MG CAPSULE Take 1 capsule by mouth every* METFORMIN 500 MG TABLET Take 1 tablet by mouth three * MAGNESIUM OXIDE 400 MG TABLET Take 1 tablet by mouth once d* ASPIRIN 81 MG TABLET,DELAYED * Take 1 tablet by mouth once d* LANCETS Test glucose twice weekly. Dx* BLOOD SUGAR DIAGNOSTIC STRIPS testing twice weekly dx 250* BLOOD-GLUCOSE METER KIT 1 Each as needed. One Touch M* BLOOD GLUCOSE CONTROL, NORMAL* Test controls as needed. SUCRALFATE 1 GRAM TABLET Take 1 tablet by mouth three * PANTOPRAZOLE 40 MG TABLET,DEL* Take 1 tablet by mouth daily * GUAIFENESIN 100 MG/5 ML ORAL * Take 10 mL by mouth three agnes* COMPOUNDED PRESCRIPTION Rollator, # one Dx: I50.33, I* AMMONIUM LACTATE 12 % TOPICAL* Apply 1 application to affect* KETOCONAZOLE 2 % SHAMPOO Use as a body wash, most spec* NITROGLYCERIN 0.4 MG SUBLINGU* Take 1 tablet by mouth as nee* RANITIDINE 300 MG TABLET Take with evening meal. COMPOUNDED PRESCRIPTION Please eval and fix any issue* BISACODYL 10 MG RECTAL SUPPOS* 1 Suppository by RECTAL route* POLYETHYLENE GLYCOL 3350 17 G* 17 g up to twice daily as nee* COMPOUNDED PRESCRIPTION Glucometer high/low test solu* COMPOUNDED PRESCRIPTION Please perform a nocturnal ox* BLOOD-GLUCOSE METER, DRUM-TYP* Test fasting blood sugar 1-2 * * COMPOUNDED PRESCRIPTION BIPAP setting: IPAP 22cm wate* Problem List As Of Date 02/21/2018 Noted Resolved Mild intermittent asthma without complication [* Priority: A MALIGN NEOPL PROSTATE [C61] Priority: B More... Type II or unspecified type diabetes mellitus w* 01/18/2014 Allergic rhinitis, cause unspecified [J30.9] INVALID FOR* Priority: B More... Personal history of colonic polyps [Z86.010] Priority: C More... Lumbago [M54.5] INVALID FOR* Priority: M Bilateral leg edema [R60.0] INVALID FOR* Priority: A Carpal tunnel syndrome, bilateral [G56.03] INVALID FOR* Priority: M More... Essential hypertension, benign [I10] INVALID FOR* Priority: A More... Insomnia, unspecified [G47.00] INVALID FOR* Priority: B More... Benign neoplasm of rectum and anal canal [D12.8*INVALID FOR* Priority: C Diverticulosis of colon (without mention of hem*INVALID FOR* Priority: C Hypertrophy of nasal turbinates [J34.3] INVALID FOR* Priority: C More... 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 More... More... EDMOND (obstructive sleep apnea) [G47.33] INVALID FOR* Priority: B More... Mobitz (type) I (Wenckebach's) atrioventricular*INVALID FOR* Priority: A More... More... Mixed hyperlipidemia [E78.2] INVALID FOR* Priority: A More... DVT prophylaxis [VVG0348] INVALID FOR*07/26/2014 More... More... More... More... More... More... Bradycardia [R00.1] INVALID FOR* Priority: A More... Venous stasis dermatitis of both lower extremit*INVALID FOR* Priority: B Counseling and coordination of care [Z71.89] INVALID FOR*04/12/2015 More... Hypomagnesemia [E83.42] INVALID FOR* Priority: B Diabetic eye exam (HCC) [Z01.00, E11.9] INVALID FOR* Priority: A More... Dry mouth [R68.2] INVALID FOR* Priority: B Noncompliance [Z91.19] INVALID FOR* Gastroesophageal reflux disease without esophag*INVALID FOR* Priority: A Coronary atherosclerosis due to lipid rich plaq*INVALID FOR* Priority: A Morbid obesity due to excess calories (HCC) [E6*INVALID FOR* Priority: B More... Essential tremor [G25.0] INVALID FOR* Priority: B Chronic cough [R05] INVALID FOR* Priority: B Well adult exam [Z00.00] INVALID FOR*01/07/2018 Priority: E More... Controlled type 2 diabetes mellitus with diabet*INVALID FOR* Priority: A Depression [F32.9] INVALID FOR* Priority: A Multiple open wounds of lower leg [S81.809A] INVALID FOR* Priority: D Colon cancer screening [Z12.11] INVALID FOR* Chest pain [R07.9] INVALID FOR* Priority: B More... Second degree heart block [I44.1] INVALID FOR* Priority: A More... Atherosclerosis of coronary artery bypass graft*INVALID FOR* Priority: A More... More... More... More... Hypoxia [R09.02] INVALID FOR* Chronic bilateral low back pain with left-sided*INVALID FOR* Priority: M Bilateral hip pain [M25.551, M25.552] INVALID FOR* Priority: M Paroxysmal atrial fibrillation (HCC) [I48.0] INVALID FOR* Priority: A More... 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 More... 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 More... Current use of proton pump inhibitor [Z79.899] INVALID FOR* More... More... Ulnar neuropathy at elbow of left upper extremi*INVALID FOR* Priority: M More... Hemoptysis [R04.2] INVALID FOR* Priority: A More... At high risk for falls [Z91.81] INVALID FOR* Memory changes [R41.3] INVALID FOR* Closed compression fracture of L1 lumbar verteb*INVALID FOR* Priority: Mild More... Chronic constipation [K59.09] INVALID FOR* Priority: C Prescriptions ordered this encounter Disp Refills Start End DOCUSATE SODIUM 100 MG CAPSULE 180 * 3 02/21/2018 Route: ORAL Sig: Take 1 capsule by mouth twice daily as needed. Medications Discontinued During This Encounter docusate sodium (DOC-Q-LACE) 100 mg * 90 c* 1 01/27/2018 02/21/2018 Class: Med Update Route: ORAL Sig: Take 1 capsule by mouth once daily. Disc: Reason for discontinue is not on file. Disposition: Return if symptoms worsen or fail to improve. Follow-up and Disposition History Recorded Encounter Status:Closed by BERTRAND LEON on 02/21/18 HOSP Observed: 02/18/2018 Status: COMPLETED Source: [place] 12:00 AM [facility] REPOSITORY Patient Update (FAMPWS) MAYCO KENDRICK ([id number]) 1940 Mahes[place] NFR Date Time Provider Department 02/18/18 BERTRAND LEON During your visit today, we recorded the following information about you: Allergies As of Date: 02/18/2018 Noted Allergy Reaction LISINOPRIL 05/31/2014 14 - Other: See Comments Comments: Metallic taste in mouth. SERTRALINE 05/02/2013 8 - GI Upset Date Reviewed: 02/11/2018 Reviewed by: Grecia (Rn) TALA Waters - Fully Assessed Order(s):MICROALBUMIN/CREATININE UR W RATIO (EXTERNAL) [[id number]] Order #: [id number] Prescriptions as of 02/18/2018 Sig: ALUMINUM-MAG HYDROXIDE-SIMETH* Take 20 mL by mouth every 6 h* SUCRALFATE 1 GRAM TABLET Take 1 tablet by mouth three * PANTOPRAZOLE 40 MG TABLET,DEL* Take 1 tablet by mouth daily * TRAZODONE 50 MG TABLET Take 1 tablet by mouth at bed* DOCUSATE SODIUM 100 MG CAPSULE Take 1 capsule by mouth once * GUAIFENESIN 100 MG/5 ML ORAL * Take 10 mL by mouth three agnes* TRIAMCINOLONE ACETONIDE 0.1 %* Apply to itching rash on ches* COMPOUNDED PRESCRIPTION Rollator, # one Dx: I50.33, I* AMMONIUM LACTATE 12 % TOPICAL* Apply 1 application to affect* RIVAROXABAN 20 MG TABLET Take 1 tablet by mouth daily * Patient not taking: Reported on 01/27/2018 FUROSEMIDE 80 MG TABLET One PO daily in AM FUROSEMIDE 40 MG TABLET One PO daily at dinner OXYBUTYNIN CHLORIDE 5 MG TABL* Take 1 tablet by mouth three * GLIMEPIRIDE 1 MG TABLET Take 1 tablet by mouth daily * METOPROLOL TARTRATE 25 MG TAB* Take 1 tablet by mouth every * KETOCONAZOLE 2 % SHAMPOO Use as a body wash, most spec* ATORVASTATIN 80 MG TABLET Take 1 tablet by mouth once d* TAMSULOSIN 0.4 MG CAPSULE Take 1 capsule by mouth every* METFORMIN 500 MG TABLET Take 1 tablet by mouth three * NITROGLYCERIN 0.4 MG SUBLINGU* Take 1 tablet by mouth as nee* RANITIDINE 300 MG TABLET Take with evening meal. MAGNESIUM OXIDE 400 MG TABLET Take 1 tablet by mouth once d* COMPOUNDED PRESCRIPTION Please eval and fix any issue* BISACODYL 10 MG RECTAL SUPPOS* 1 Suppository by RECTAL route* POLYETHYLENE GLYCOL 3350 17 G* 17 g up to twice daily as nee* ASPIRIN 81 MG TABLET,DELAYED * Take 1 tablet by mouth once d* COMPOUNDED PRESCRIPTION Glucometer high/low test solu* COMPOUNDED PRESCRIPTION Please perform a nocturnal ox* LANCETS Test glucose twice weekly. Dx* BLOOD SUGAR DIAGNOSTIC STRIPS testing twice weekly dx 250* BLOOD-GLUCOSE METER, DRUM-TYP* Test fasting blood sugar 1-2 * BLOOD-GLUCOSE METER KIT 1 Each as needed. One Touch M* BLOOD GLUCOSE CONTROL, NORMAL* Test controls as needed. * COMPOUNDED PRESCRIPTION BIPAP setting: IPAP 22cm wate* Problem List As Of Date 02/18/2018 Noted Resolved Mild intermittent asthma without complication [* Priority: A MALIGN NEOPL PROSTATE [C61] Priority: B More... Type II or unspecified type diabetes mellitus w* 01/18/2014 Allergic rhinitis, cause unspecified [J30.9] INVALID FOR* Priority: B More... Personal history of colonic polyps [Z86.010] Priority: C More... Lumbago [M54.5] INVALID FOR* Priority: M Bilateral leg edema [R60.0] INVALID FOR* Priority: A Carpal tunnel syndrome, bilateral [G56.03] INVALID FOR* Priority: M More... Essential hypertension, benign [I10] INVALID FOR* Priority: A More... Insomnia, unspecified [G47.00] INVALID FOR* Priority: B More... Benign neoplasm of rectum and anal canal [D12.8*INVALID FOR* Priority: C Diverticulosis of colon (without mention of hem*INVALID FOR* Priority: C Hypertrophy of nasal turbinates [J34.3] INVALID FOR* Priority: C More... 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 More... More... EDMOND (obstructive sleep apnea) [G47.33] INVALID FOR* Priority: B More... Mobitz (type) I (Wenckebach's) atrioventricular*INVALID FOR* Priority: A More... More... Mixed hyperlipidemia [E78.2] INVALID FOR* Priority: A More... DVT prophylaxis [[id number]] INVALID FOR*07/26/2014 More... More... More... More... More... More... Bradycardia [R00.1] INVALID FOR* Priority: A More... Venous stasis dermatitis of both lower extremit*INVALID FOR* Priority: B Counseling and coordination of care [Z71.89] INVALID FOR*04/12/2015 More... Hypomagnesemia [E83.42] INVALID FOR* Priority: B Diabetic eye exam (HCC) [Z01.00, E11.9] INVALID FOR* Priority: A More... Dry mouth [R68.2] INVALID FOR* Priority: B Noncompliance [Z91.19] INVALID FOR* Gastroesophageal reflux disease without esophag*INVALID FOR* Priority: A Coronary atherosclerosis due to lipid rich plaq*INVALID FOR* Priority: A Morbid obesity due to excess calories (HCC) [E6*INVALID FOR* Priority: B More... Essential tremor [G25.0] INVALID FOR* Priority: B Chronic cough [R05] INVALID FOR* Priority: B Well adult exam [Z00.00] INVALID FOR*01/07/2018 Priority: E More... Controlled type 2 diabetes mellitus with diabet*INVALID FOR* Priority: A Depression [F32.9] INVALID FOR* Priority: A Multiple open wounds of lower leg [S81.809A] INVALID FOR* Priority: D Colon cancer screening [Z12.11] INVALID FOR* Chest pain [R07.9] INVALID FOR* Priority: B More... Second degree heart block [I44.1] INVALID FOR* Priority: A More... Atherosclerosis of coronary artery bypass graft*INVALID FOR* Priority: A More... More... More... More... Hypoxia [R09.02] INVALID FOR* Chronic bilateral low back pain with left-sided*INVALID FOR* Priority: M Bilateral hip pain [M25.551, M25.552] INVALID FOR* Priority: M Paroxysmal atrial fibrillation (HCC) [I48.0] INVALID FOR* Priority: A More... 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 More... 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 More... Current use of proton pump inhibitor [Z79.899] INVALID FOR* More... More... Ulnar neuropathy at elbow of left upper extremi*INVALID FOR* Priority: M More... Hemoptysis [R04.2] INVALID FOR* Priority: A More... At high risk for falls [Z91.81] INVALID FOR* Memory changes [R41.3] INVALID FOR* Compression fracture of L1 lumbar vertebra (HCC*INVALID FOR* Priority: Mild More... Encounter Status:Closed by BERTRAND LEON on 02/18/18 DISCHARGE SUMMARY Observed: 02/15/2018 Status: F Source: [place] 4:36 PM [facility] REPOSITORY [facility] Medical Records Department [address] [place] [id number] Discharge Summary 02/15/18 1106 MR#: [id number] Acct: [id number] Name: MAYCO KENDRICK Rep #: [id number] : 1940 77 From: Kavitha Vargas MD PCP: Bertrand Leon MD Status: DIS ALFREDO Y Location: [place] [address]1 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 (Chronic) 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) CHF (congestive heart failure) (Chronic) Obstructive sleep apnea (Chronic) HLD (hyperlipidemia) (Chronic) DM2 (diabetes mellitus, type 2) (Chronic) Benign essential HTN (Chronic) Chronic venous insufficiency (Chronic) Swelling of lower extremity (Chronic) Edema of both legs (Chronic) Morbid obesity (Chronic) Prostate cancer (Chronic) Venous stasis dermatitis of both lower extremities (Chronic) Status post cholecystectomy (Chronic) Cholecystitis (Chronic) Asthma (Chronic) Hospital Course and Treatment Imaging Results: Clinical Impression(s) from Imaging Studies Brain CT 02/14/18 19:18 IMPRESSION: Chronic involutional changes of the brain. Electronically Signed: Roger Nickerson MD at 20:10 EDT , Service support , Cervical Spine CT 02/14/18 19:18 IMPRESSION: Multilevel degenerative disc disease and spinal stenosis. No fracture. Recommend cervical MRI. Electronically Signed: Roger Nickerson MD at 20:34 EDT , Service support , Lumbar Spine X-Ray 02/14/18 19:18 IMPRESSION: Compression fractures T12 and L1, age indeterminate. Diffuse idiopathic skeletal hyperostosis. Electronically Signed: Roger Nickerson MD at 20:53 EDT , Service support , Wrist X-Ray 02/14/18 19:18 IMPRESSION: Normal x-ray examination of the wrist. Electronically Signed: Roger Nickerson MD at 20:42 EDT , Service support , Hip/Pelvis X-Ray 02/14/18 19:45 IMPRESSION: No acute fracture. Total hip arthroplasties. Electronically Signed: Roger Nickerson MD at 20:57 EDT , Service support , None Operations: None Procedures: None Summary of Care Provided: The patient is a 77 year old M with multiple comorbidities who was admitted on 02/14/2018 after a fall in his assisted living facility. Patient complains of pain from his carpal tunnels and both hands. He was transferring back into his wheelchair when he slid on the floor. He hit his head and neck. He is said to have lost consciousness briefly and remembers his neighbors coming in to help him. He was seen through the ED. Imaging of his right hip and back were unremarkable except for T12-L1 compression fractures. Denied any pain in his back. CT scan of the head was negative for any bleeds. Patient was monitored in the hospital overnight with no acute events. He was seen by physical and Occupational Therapy with no skilled needs. He was managed as concussion with loss of consciousness. He will need follow-up with his primary care doctor and workup for T12-L1 compression fractures with osteoporosis workup. Discharge Diet: Low fat/ Low Cholesterol, 2000 mg Sodium Diet Discharge Activity: Return to Normal Activity Home Medications: Medications to take at Discharge Aspirin [Aspirin, Baby] 81 mg PO DAILY 06/09/13 Nitroglycerin [Nitrostat] 0.4 mg SUBLINGUAL Q5M PRN 06/09/13 Magnesium Oxide [Mag-Ox 400] 400 mg PO DINNER 10/07/15 Oxybutynin [Ditropan] 5 mg PO TID 01/27/16 Metoprolol Tartrate [Lopressor (beta emily)] 25 mg PO BID 05/08/16 Acetaminophen [Mapap] 1,000 mg PO Q8H PRN PRN 10/17/16 Furosemide [Lasix] 40 mg PO DINNER 10/17/16 Furosemide [Lasix] 80 mg PO DAILY 10/17/16 Glimepiride [Amaryl] 1 mg PO DAILY 05/03/17 Docusate Sodium [Colace] 100 mg PO DAILY 11/19/17 Guaifenesin/Dextromethorphan [Robitussin Cough-Chest Dm Liq] 5 ml PO PRN PRN 11/19/17 Pantoprazole Sodium [Protonix] 40 mg PO DAILY 11/19/17 Sucralfate [Carafate] 1 gm PO TID 11/19/17 Bisacodyl [Dulcolax] 10 mg RECTAL DAILY PRN 02/15/18 Triamcinolone 0.025% Cream [Kenalog] 1 applic TOPICAL BID PRN 02/15/18 Primary Care Physician: Bertrand Leon MD [Primary Care Provider] - Please follow up with your Primary Care Physician in: within 2 weeks Disposition: Asstd Living/Non-Skill NH Minutes spent on discharge:: 45 Patient Condition:: Stable Medical Necessity - Tobacco Use Smoking Status: Never smoker Tobacco Use: Non-smoker Meaningful Use Info Meaningful Use Diagnoses (Choose all that apply): None applicable Code Visit OBSV E AND M: 65689 Observation care discharge 02/15/18 1636 <Electronically signed by Kavitha Vargas MD> Date Kavitha Vargas MD Cosigner Signature (if applicable): Date CC: Kavitha Vargas MD; Bertrand Leon MD Signed DISCHARGE INSTRUCTION Observed: 02/15/2018 Status: F Source: [place] 11:06 [facility] REPOSITORY [facility] Medical Records Department [facility] [place] [address] Instructions for Home/Discharge Instructions 02/15/18 1103 MR#: [id number] Acct: [id number] Name: MAYCO KENDRICK Rep #: [id number] : 1940 77 From: Kavitha Vargas MD PCP: Bertrand Leon MD Status: ADM ALFREDO - Discharge Diagnoses Current Active Problems: Current Active and Chronic Problems Fall (Acute) Reason(s) for Visit for Discharge Instructions: Fall You will use the following diet at home:: Calorie/Carbohydrate Controlled (specify 1200, 1400, etc), Cardiac Your food should be the consistency of: Regular Your liquids should be the consistency of: Regular/Thin Discharge Activity: Return to Normal Activity Additional Instructions: Let your primary doctor know if you develop severe/persistent headaches in the next coming weeks as well as nausea or Vomiting. You should follow-up with your doctor within 2 weeks Allergies/Adverse Reactions: Allergies lisinopril Allergy (Verified 02/14/18 18:31) Unknown sertraline Allergy (Verified 02/14/18 18:31) Unknown Medications to take at Discharge Aspirin [Aspirin, Baby] 81 mg PO DAILY 06/09/13 Nitroglycerin [Nitrostat] 0.4 mg SUBLINGUAL Q5M PRN 06/09/13 Magnesium Oxide [Mag-Ox 400] 400 mg PO DINNER 10/07/15 Oxybutynin [Ditropan] 5 mg PO TID 01/27/16 Metoprolol Tartrate [Lopressor (beta emily)] 25 mg PO BID 05/08/16 Acetaminophen [Mapap] 1,000 mg PO Q8H PRN PRN 10/17/16 Furosemide [Lasix] 40 mg PO DINNER 10/17/16 Furosemide [Lasix] 80 mg PO DAILY 10/17/16 Glimepiride [Amaryl] 1 mg PO DAILY 05/03/17 Docusate Sodium [Colace] 100 mg PO DAILY 11/19/17 Guaifenesin/Dextromethorphan [Robitussin Cough-Chest Dm Liq] 5 ml PO PRN PRN 11/19/17 Pantoprazole Sodium [Protonix] 40 mg PO DAILY 11/19/17 Sucralfate [Carafate] 1 gm PO TID 11/19/17 Bisacodyl [Dulcolax] 10 mg RECTAL DAILY PRN 02/15/18 Triamcinolone 0.025% Cream [Kenalog] 1 applic TOPICAL BID PRN 02/15/18 Primary Care Physician: Bertrand Leon MD [Primary Care Provider] - Please follow up with your Primary Care Physician in: within 2 weeks Proposed Discharge Date: 02/15/18 02/15/18 1106 <Electronically signed by Kavitha Vargas MD> Date Kavitha Vargas MD CC: Bertrand Leon MD EMERGENCY DEPARTMENT Observed: 02/15/2018 Status: F Source: [place] SUMMARY 12:17 AM [facility] REPOSITORY [facility] Medical Records Department [address] [place] [address] Emergency Department Summary 02/14/181931 MR#: [id number] Acct: [id number] Name: MAYCO KENDRICK Rep #: [id number] : 1940 77 From: James Burns MD PCP: Bertrand Leon MD Status: ADM ALFREDO - ER Visit Summary Date of Service: 02/14/18 Chief Complaint: Fall History of Present Illness: The patient is a 77 M who was trying to get up from his wheelchair. He felt weak and fell back into the wheelchair but then slid to the ground. He did hit his head and neck. He believes he lost consciousness and remembers his neighbor coming to help him. He complains of pain to the right side of his head and neck. He also has right wrist right hip, and low back pain. No weakness or numbness. He does take Xarelto for atrial fibrillation. No nausea or vomiting. Physical Examination: Vital signs unremarkable. Afebrile. Patient is alert and oriented. No acute distress. Head is atraumatic but he does have some right occipital tenderness to palpation. Cervical spine nontender but does have some right paraspinal tenderness. No step-offs. Heart regular rate and rhythm. Lungs clear. Abdomen soft and nontender. Lumbar spine is tender to palpation. Right hip tender to palpation without shortening or abnormal logroll. Right wrist diffusely tender to palpation without deformity. Skin intact throughout. Neurovascular intact throughout. No focal or lateralizing neurologic abnormalities. Test Results: CT head and neck pending. X-rays right wrist, right hip, and lumbar spine pending. Emergency Department Course and Treatment: Patient declined pain medicine. Will review imaging. CT head and neck showed chronic changes. Right wrist x-ray and right hip x-ray showed chronic changes. Lumbar x-ray showed indeterminate age T12 and L1 compression fractures. I reassessed the patient. He had no pain in the T12 or L1 region. He had continued head pain. He requested to stay in the hospital because of continued pain. I spoke with the hospitalist who will admit. Treatment Plan: As above Disposition: Admission Impression: 1. Concussion with loss of consciousness 2. Cervical strain 3. Lumbar contusion 4. Right wrist sprain 5. Right hip contusion This note was generated with Cellay dictation software. It may contain incorrect words, spelling, and punctuation that were not noted in review of the chart prior to signing ED Disposition - Plan for ED Patient: Chief Complaint: Fall Referrals: Bertrand Leon MD [Primary Care Provider] - What to do if you have Problems For any increased pain, shortness of breath, bleeding, nausea or vomiting, chest pain, or any unexpected problems, contact your Primary Care Provider. Call [facility] ([phone]) or report to the closest Emergency Room. Call 911 if necessary. 02/15/18 0017 <Electronically signed by James Burns MD> Date James Burns MD Cosigner Signature (If Indicated): Date CC: Bertrand Leon MD BEDSIDE GLUCOSE Collected: 02/14/2018 Status: F Source: [place] 11:41 PM [facility] REPOSITORY TYPE CODE TESTS RESULT OUT OF RANGE REFERENCE UNITS LAB L501.080 70-110 mg/dL Normal BEDSIDE GLU 103 Result Comment: MANAGEMENT OF PATIENT CARE PER NURSING PROTOCOL Performed By: #### L501.080 #### [facility] Point of Care [address] [facility] [place] [address] HISTORY AND PHYSICAL Observed: 02/14/2018 Status: F Source: [place] EXAM 10:11 PM [facility] REPOSITORY [facility] Medical Records Department [address] [place] [address] History and Physical 02/14/183 MR#: [id number] Acct: [id number] Name: MAYCO KENDRICK Demetra Rep #: [id number] : 1940 77 From: Harrison Gilbert MD PCP: Bertrand Leon MD Status: REG ER Y Location: ED Problem List (1) Fall Status: Acute Qualifiers: Encounter type: initial encounter Qualified Code(s): W19.XXXA - Unspecified fall, initial encounter (2) Paroxysmal atrial fibrillation Status: Chronic (3) H/O coronary artery bypass surgery Status: Chronic (4) Presence of cardiac pacemaker Status: Chronic (5) Obstructive sleep apnea Status: Chronic (6) HLD (hyperlipidemia) Status: Chronic Qualifiers: (7) DM2 (diabetes mellitus, type 2) Status: Chronic Qualifiers: (8) Benign essential HTN Status: Chronic (9) Chronic venous insufficiency Status: Chronic (10) Edema of both legs Status: Chronic (11) Morbid obesity Status: Chronic History of Present Illness Date of Admission: 02/14/18 Chief Complaint: fall hit head The patient is a 77 year old male patient with a complex past medical history fell to the side as he missed his wheel chair and hit his head into the door frame. He may have passed out but is unclear. He denies chest pain or shortness of breath or dizziness before he fell. He denies head ache. His ct scan was negative for intracranial bleeding. He will be admitted for observation overnight due to being on anticoagulation. Other workup is negative at this time. 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) CHF (congestive heart failure) (Chronic) Obstructive sleep apnea (Chronic) HLD (hyperlipidemia) (Chronic) DM2 (diabetes mellitus, type 2) (Chronic) Benign essential HTN (Chronic) Chronic venous insufficiency (Chronic) Swelling of lower extremity (Chronic) Edema of both legs (Chronic) Morbid obesity (Chronic) Prostate cancer (Chronic) Venous stasis dermatitis of both lower extremities (Chronic) Status post cholecystectomy (Chronic) Cholecystitis (Chronic) Asthma (Chronic) Allergies lisinopril Allergy (Verified 02/14/18 18:31) Unknown sertraline Allergy (Verified 02/14/18 18:31) Unknown Home Medications: Ambulatory Orders Medication Instructions Recorded Surgical History: coronary bypass surgery - 1998, total hip arthroplasty - Bilateral, - - Open cholecystectomy - September 2015. Open reduction and internal fixation of a right hip fracture. Psychiatric History: No pertinent psych hx Smoking Status: Never smoker - *Family History Maternal History Items: Cancer - Lung, - Paternal History Items: Heart Disease Review of Systems Constitutional: Denies: Chills, Fever, Weight Change HEENT: Denies: Head Aches, Sinus Congestion, Sinus Drainage Cardiovascular: Denies: Chest Pain, Palpitations Respiratory: Denies: Cough, Shortness of breath at rest, Sputum production Gastrointestinal: Denies: Abdominal Pain, Nausea, Vomiting Genitourinary: Denies: Dysuria Musculoskeletal: Denies: Joint Pain, Joint Tenderness Skin: Denies: Rash, Wounds Neurological: Denies: Numbness, Tingling, Focal weakness Psychiatric: Denies: Anxiety, Depression, Homicidal Ideations, Suicidal Ideations Hematologic/ Lymphatic: Denies: Easy Bruising, Easy Bleeding VTE Information - Inpt Only VTE Present on Admission: No VTE Mechan Device Prophylaxis: None VTE Pharm Prophylaxis ordered?: No Patient Problems: Active and Suspected Problems Fall (Acute) - Physical Exam General: Alert, Oriented x3, Cooperative HEENT: Atraumatic, PERRLA, EOMI, Normocephalic Neck: Supple Lungs: Clear to auscultation, Normal air movement Cardiovascular: Regular rate, No murmurs Abdomen: Bowel Sounds Present, Soft, Non Tender Extremities: No edema, Capillary Refill Less than 3 Seconds Skin: No rashes, No breakdown Musculoskeletal: No Tenderness to Palpation of Joints or Extremities Neurological: Cranial nerves II-XII grossly intact Psych/Mental Status: Normal Affect, Appropriate Vital Signs Temp Pulse Resp BP Pulse Ox 99.3 F H 68 18 145/77 H 98 02/14/18 18:28 02/14/18 21:44 02/14/18 21:44 02/14/18 21:44 02/14/18 21:44 Oxygen Delivery Method Room Air Weight: 332 lb Body Mass Index (BMI) 45.0 Laboratory Tests Past 24 Hrs WBC 8.6 RBC 4.80 Hgb 13.9 Hct 42.7 MCV 89.0 MCH 29.0 MCHC 32.6 RDW 14.4 Assessment/Plan All Active Problems Fall (Acute) Ileus following gastrointestinal surgery (Resolved) Abdominal pain (Resolved) Chest pain (Resolved) Chest pain (Resolved) Heme + stool (Resolved) Admit to medical surgical floor - neuro checks q 4 hours - continue routine home medications - If ok in am then dc home Code Visit OBSV E AND M: [id number] Initial observation care L2 02/14/182210 <Electronically signed by Harrison Gilbert MD> Date Harrison Gilbert MD Cosigner Signature: Date (if applicable) CC: Bertrand Leon MD; Harrison Gilbert MD Signed CBC W/DIFF, AUTOMATED Collected: 02/14/2018 Status: F Source: [place] 9:30 PM [facility] REPOSITORY TYPE CODE TESTS RESULT OUT OF RANGE REFERENCE UNITS LAB L100.1000 4.4-11.0 K/mm3 Normal WBC 8.6 LAB L100.1200 4.6-6.2 M/mm3 Normal RBC 4.80 LAB L100.1300 13.0-16.5 g/dl Normal HGB 13.9 LAB L100.1400 40-54 % Normal HCT 42.7 LAB L100.1500 80-94 fL Normal MCV 89.0 LAB L100.1600 27.0-32.0 pg Normal MCH 29.0 LAB L100.1700 32-36 g/gl Normal MCHC 32.6 LAB L100.1810 11.6-14.6 % Normal RDW CV 14.4 LAB L100.1820 35.1-43.9 fl High RDW SD 46.3 LAB L100.1900 150-450 K/mm3 Normal PLT 210 LAB L100.2000 6.2-12.0 fl Normal MPV 9.6 LAB L100.2100 47-70 % Normal NEUT% 59.3 LAB L100.2200 19-41 % Normal LY% 22.8 LAB L100.2300 0-10 % High MONO% 11.5 LAB L100.2400 0-5 % High EO% 6.1 LAB L100.2500 0-1 % Normal BASO% 0.2 LAB L100.2550 0.0-0.9 % Normal IM GRAN % 0.100 Result Comment: IG% - Immature Granulocytes (promyelocytes, myelocytes and metamyelocytes) > 1% indicates that a LEFT SHIFT is Present. LAB L100.2620 2.0-7.7 X10 3/uL Normal Absolute Neut 5.1 LAB L100.2720 0.83-4.51 X10 3/ul Normal Absolute Lymph 1.97 Performed By: #### L100.0100 #### [facility] [address] [place], [address] BASIC METABOLIC Collected: 02/14/2018 Status: F Source: [place] PROFILE (BMP) 9:30 PM [facility] REPOSITORY TYPE CODE TESTS RESULT OUT OF RANGE REFERENCE UNITS LAB L501.0100 74-106 mg/dL Normal GLU 89 Result Comment: Please note revised GLUCOSE reference range effective 2017. LAB L501.1000 7-18 mg/dL Normal BUN 17 LAB L501.1100 0.70-1.30 mg/dL Normal CREAT,SERUM 0.95 Result Comment: The validity of the calculated GFR AND GFRAA in patients over 70 years has not been determined. Clinical correlation is essential. LAB L501.1110 >60 mL/min Normal EST GFR 82 Result Comment: Non- GFR Calc LAB L501.1115 >60 mL/min Normal EST GFR - AA 99 Result Comment: GFR Calc LAB L501.1255 ml/min Normal Estimated CRCL 72.61 LAB L501.1300 10-20 RATIO Normal BUN/CRE 17.9 LAB L501.2200 8.5-10 mg/dL Normal .1 CA 8.9 LAB L501.5300 136-14 mmol/L Normal 5 NA 140 LAB L501.5600 3.5-5. mmol/L Normal 1 K 3.7 LAB L501.5900 98-107 mmol/L Normal CL 102 LAB L501.6100 21.0-3 mmol/L Normal 2.0 CO2 29.0 LAB L501.6200 5-15 Normal GAP 9 Performed By: #### L500.2500 #### [facility] [address] [place], [address] BRAIN/HEAD WITHOUT Observed: 02/14/2018 Status: F Source: [place] CONTRAST 7:19 PM [facility] REPOSITORY [facility] Imaging Services [address] [place] [address] Brain/Head without Contrast MR#: [id number] Acct: [id number] Name: MAYCO KENDRICK Rep #: [id number] : 1940 M 77 From: Roger Nickerson MD PCP: Bertrand Leon MD Status: REG ER Study: Brain/Head without Contrast Date of Exam: 02/14/18 Exam# [id number] Ordering Dr: James Burns MD STUDY: CT BRAIN WITHOUT CONTRAST REASON FOR EXAM: Male, 77 years old. Right-sided head trauma RADIATION DOSAGE (If Supplied By Facility): CTDIvol = ( 44.99 ) mGy, DLP = ( 897.35 ) mGycm TECHNIQUE: Transaxial CT imaging of the brain was performed without administration of intravenous contrast material. Individualized dose optimization techniques were used for this CT. COMPARISON: November 29, 2010 FINDINGS: Normal soft tissue structures. Normal calvarium. Normal size ventricles and extra-axial spaces for the patient's age. There are areas of decreased attenuation within the white matter tracts of the supratentorial brain, consistent with microvascular disease changes. Normal basal ganglia and thalami. Normal brainstem. Normal cerebellum. There is no intracranial hemorrhage. There are no findings of an acute ischemic infarction. Normal visualized paranasal sinuses. CT/Brain/Head without Contrast IMPRESSION: Chronic involutional changes of the brain. Electronically Signed: Roger Nickerson MD at 20:10 EDT , Service support , CC: James Burns MD; Bertrand Leon MD Librarian Head: Signed SPINE CERVICAL Observed: 02/14/2018 Status: F Source: [place] WITHOUT CONTRAS 7:19 PM [facility] REPOSITORY [facility] Imaging Services [address] [place] [id number] Spine Cervical without Contras MR#: [id number] Acct: [id number] Name: MAYCO KENDRICK Rep #: [id number] : 1940 M 77 From: Roger Nickerson MD PCP: Bertrand Leon MD Status: REG ER Study: Spine Cervical without Contras Date of Exam: 02/14/18 Exam# [id number] Ordering Dr: James Burns MD STUDY: CT CERVICAL SPINE WITHOUT CONTRAST REASON FOR EXAM: Male, 77 years old. Right-sided neck pain. RADIATION DOSAGE (If Supplied By Facility): CTDIvol = ( 27.38 ) mGy, DLP = ( 671.97 ) mGycm TECHNIQUE: High resolution transaxial imaging was performed without contrast material. Sagittal and coronal images were reconstructed. Individualized dose optimization techniques were used for this CT. COMPARISON: None FINDINGS: Normal craniovertebral junction. Normal anterior atlantoaxial articulation. Normal odontoid process. Normal cervical lordosis. Normal vertebral bodies and posterior osseous elements. C2-3: Normal endplates. Normal disc height and morphology. Normal central canal and intervertebral neuroforamina. C3-4: Disc space narrowing and neural foraminal narrowing. Central canal patent. C4-5: Disc space narrowing and neural foraminal narrowing. Central canal patent. C5-6: Normal endplates. Normal disc height and morphology. Normal central canal and intervertebral neuroforamina. C6-7: Disc space narrowing and neural foraminal narrowing. Central canal patent. C7-T1: Possible large posterior disc marginal osteophyte effacing the cord causing severe narrowing of the central canal which measures 6 to 7 mm in the midline. Normal visualized soft tissue structures. CT/Spine Cervical without Contras IMPRESSION: Multilevel degenerative disc disease and spinal stenosis. No fracture. Recommend cervical MRI. Electronically Signed: Roger Nickerson MD at 20:34 EDT , Service support , CC: James Burns MD; Bertrand Leon MD Librarian Head: Signed WRIST MIN 3 VIEWS Observed: 02/14/2018 Status: F Source: [place] 7:19 PM [facility] REPOSITORY [facility] Imaging Services [address] [place] [address] Wrist min 3 Views MR#: [id number] Acct: [id number] Name: MAYCO KENDRICK Rep #: [id number] : 1940 M 77 From: Roger Nickerson MD PCP: Bertrand Leon MD Status: REG ER Study: Wrist min 3 Views Date of Exam: 02/14/18 Exam# [id number] Ordering Dr: James Bursn MD STUDY: X-RAY - RIGHT WRIST REASON FOR EXAM: Male, 77 years old. Fell and injured right wrist TECHNIQUE: 3 view(s) of the wrist were obtained. COMPARISON: None. FINDINGS: Normal visualized distal radius and ulna. Normal radiocarpal articulation. Normal distal radioulnar articulation. Normal carpal bones. Normal carpal articulations. Old fracture fifth metacarpal. Normal carpometacarpal articulation of the thumb. Normal second through fifth carpometacarpal articulations. Normal visualized metacarpal bones. The soft tissue structures are unremarkable. RAD/Wrist min 3 Views IMPRESSION: Normal x-ray examination of the wrist. Electronically Signed: Roger Nickerson MD at 20:42 EDT , Service support , CC: James Burns MD; Bertrand Leon MD Librarian Head: Signed LUMBAR SPINE 2 OR 3 Observed: 02/14/2018 Status: F Source: [place] VIEWS 7:19 PM [facility] REPOSITORY [facility] Imaging Services [address] [place] [address] Lumbar Spine 2 or 3 Views MR#: [id number] Acct: [id number] Name: MAYCO KENDRICK Rep #: [id number] : 1940 M 77 From: Roger Nickerson MD PCP: Bertrand Leon MD Status: REG ER Study: Lumbar Spine 2 or 3 Views Date of Exam: 02/14/18 Exam# [id number] Ordering Dr: James Burns MD STUDY: X-RAY - LUMBAR SPINE REASON FOR EXAM: Male, 77 years old. Low back pain status post fall TECHNIQUE: 3 view(s) of the lumbar spine were obtained. COMPARISON: None FINDINGS: Normal lumbar lordosis. There is no substantial scoliosis. There is a normal alignment of the vertebrae. Compression fractures noted at T12 and L1. Normal disc space heights. There is ossification of the anterior longitudinal ligament and the spinous processes. The soft tissue structures are unremarkable. RAD/Lumbar Spine 2 or 3 Views IMPRESSION: Compression fractures T12 and L1, age indeterminate. Diffuse idiopathic skeletal hyperostosis. Electronically Signed: Roger Nickerson MD at 20:53 EDT , Service support , CC: James Burns MD; Bertrand Leon MD Librarian Head: Signed HIP 2-3 VIEWS WITH Observed: 02/14/2018 Status: F Source: [place] PELVIS 7:19 PM [facility] REPOSITORY [facility] Imaging Services [address] [place] [address] Hip 2-3 Views with Pelvis MR#: [id number] Acct: [id number] Name: MAYCO KENDRICK Rep #: [id number] : 1940 77 From: Roger Nickerson MD PCP: Bertrand Leon MD Status: REG ER Study: Hip 2-3 Views with Pelvis Date of Exam: 02/14/18 Exam# [id number] Ordering Dr: James Burns MD STUDY: X-RAY - PELVIS AND RIGHT HIP REASON FOR EXAM: Male, 77 years old. Fell and injured right hip TECHNIQUE: Radiological exam, hip, unilateral, with pelvis when performed; 2 or 3 views. COMPARISON: August 22, 2012 FINDINGS: There is a non-specific bowel gas pattern. Normal visualized soft tissue structures. Normal bilateral iliac wings, sacroiliac joints and visualized sacrum. Normal bilateral superior and inferior pubic rami. Normal pubic symphysis. Normal bilateral ischial tuberosities. Total hip arthroplasties are noted in anatomic alignment bilaterally. RAD/Hip 2-3 Views with Pelvis IMPRESSION: No acute fracture. Total hip arthroplasties. Electronically Signed: Roger Nickerson MD at 20:57 EDT , Service support , CC: James Burns MD; Bertrand Leon MD Librarian Head: Signed HOSP Observed: 02/14/2018 Status: COMPLETED Source: [place] 12:00 AM [facility] REPOSITORY Patient Update (FAMPWS) MAYCO KENDRICK ([id number]) 1940 M R Date Time Provider Department 02/14/18 [facility] During your visit today, we recorded the following information about you: Allergies As of Date: 02/14/2018 Noted Allergy Reaction LISINOPRIL 05/31/2014 14 - Other: See Comments Comments: Metallic taste in mouth. SERTRALINE 05/02/2013 8 - GI Upset Date Reviewed: 02/11/2018 Reviewed by: Grecia (Tala) TALA Waters - Fully Assessed Visit Diagnosis:Current use of proton pump inhibitor [Z79.899] Order(s):CMP (EXTERNAL) [8669733] Order #: [id number] LIPID PANEL (OUTSIDE) [2863668] Order #: [id number] HBA1C (OUTSIDE) [2963721] Order #: [id number] Prescriptions as of 02/14/2018 Sig: ALUMINUM-MAG HYDROXIDE-SIMETH* Take 20 mL by mouth every 6 h* SUCRALFATE 1 GRAM TABLET Take 1 tablet by mouth three * PANTOPRAZOLE 40 MG TABLET,DEL* Take 1 tablet by mouth daily * TRAZODONE 50 MG TABLET Take 1 tablet by mouth at bed* DOCUSATE SODIUM 100 MG CAPSULE Take 1 capsule by mouth once * GUAIFENESIN 100 MG/5 ML ORAL * Take 10 mL by mouth three agnes* TRIAMCINOLONE ACETONIDE 0.1 %* Apply to itching rash on ches* COMPOUNDED PRESCRIPTION Rollator, # one Dx: I50.33, I* AMMONIUM LACTATE 12 % TOPICAL* Apply 1 application to affect* RIVAROXABAN 20 MG TABLET Take 1 tablet by mouth daily * Patient not taking: Reported on 01/27/2018 FUROSEMIDE 80 MG TABLET One PO daily in AM FUROSEMIDE 40 MG TABLET One PO daily at dinner OXYBUTYNIN CHLORIDE 5 MG TABL* Take 1 tablet by mouth three * GLIMEPIRIDE 1 MG TABLET Take 1 tablet by mouth daily * METOPROLOL TARTRATE 25 MG TAB* Take 1 tablet by mouth every * KETOCONAZOLE 2 % SHAMPOO Use as a body wash, most spec* ATORVASTATIN 80 MG TABLET Take 1 tablet by mouth once d* TAMSULOSIN 0.4 MG CAPSULE Take 1 capsule by mouth every* METFORMIN 500 MG TABLET Take 1 tablet by mouth three * NITROGLYCERIN 0.4 MG SUBLINGU* Take 1 tablet by mouth as nee* RANITIDINE 300 MG TABLET Take with evening meal. MAGNESIUM OXIDE 400 MG TABLET Take 1 tablet by mouth once d* COMPOUNDED PRESCRIPTION Please eval and fix any issue* BISACODYL 10 MG RECTAL SUPPOS* 1 Suppository by RECTAL route* POLYETHYLENE GLYCOL 3350 17 G* 17 g up to twice daily as nee* ASPIRIN 81 MG TABLET,DELAYED * Take 1 tablet by mouth once d* COMPOUNDED PRESCRIPTION Glucometer high/low test solu* COMPOUNDED PRESCRIPTION Please perform a nocturnal ox* LANCETS Test glucose twice weekly. Dx* BLOOD SUGAR DIAGNOSTIC STRIPS testing twice weekly dx 250* BLOOD-GLUCOSE METER, DRUM-TYP* Test fasting blood sugar 1-2 * BLOOD-GLUCOSE METER KIT 1 Each as needed. One Touch M* BLOOD GLUCOSE CONTROL, NORMAL* Test controls as needed. * COMPOUNDED PRESCRIPTION BIPAP setting: IPAP 22cm wate* Problem List As Of Date 02/14/2018 Noted Resolved Mild intermittent asthma without complication [* Priority: A MALIGN NEOPL PROSTATE [C61] Priority: B More... Type II or unspecified type diabetes mellitus w* 01/18/2014 Allergic rhinitis, cause unspecified [J30.9] INVALID FOR* Priority: B More... Personal history of colonic polyps [Z86.010] Priority: C More... Lumbago [M54.5] INVALID FOR* Priority: M Bilateral leg edema [R60.0] INVALID FOR* Priority: A Carpal tunnel syndrome, bilateral [G56.03] INVALID FOR* Priority: M More... Essential hypertension, benign [I10] INVALID FOR* Priority: A More... Insomnia, unspecified [G47.00] INVALID FOR* Priority: B More... Benign neoplasm of rectum and anal canal [D12.8*INVALID FOR* Priority: C Diverticulosis of colon (without mention of hem*INVALID FOR* Priority: C Hypertrophy of nasal turbinates [J34.3] INVALID FOR* Priority: C More... 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 More... More... EDMOND (obstructive sleep apnea) [G47.33] INVALID FOR* Priority: B More... Mobitz (type) I (Wenckebach's) atrioventricular*INVALID FOR* Priority: A More... More... Mixed hyperlipidemia [E78.2] INVALID FOR* Priority: A More... DVT prophylaxis [EYS4491] INVALID FOR*07/26/2014 More... More... More... More... More... More... Bradycardia [R00.1] INVALID FOR* Priority: A More... Venous stasis dermatitis of both lower extremit*INVALID FOR* Priority: B Counseling and coordination of care [Z71.89] INVALID FOR*04/12/2015 More... Hypomagnesemia [E83.42] INVALID FOR* Priority: B Diabetic eye exam ([facility]) [Z01.00, E11.9] INVALID FOR* Priority: A More... Dry mouth [R68.2] INVALID FOR* Priority: B Noncompliance [Z91.19] INVALID FOR* Gastroesophageal reflux disease without esophag*INVALID FOR* Priority: A Coronary atherosclerosis due to lipid rich plaq*INVALID FOR* Priority: A Morbid obesity due to excess calories (HCC) [E6*INVALID FOR* Priority: B More... Essential tremor [G25.0] INVALID FOR* Priority: B Chronic cough [R05] INVALID FOR* Priority: B Well adult exam [Z00.00] INVALID FOR*01/07/2018 Priority: E More... Controlled type 2 diabetes mellitus with diabet*INVALID FOR* Priority: A Depression [F32.9] INVALID FOR* Priority: A Multiple open wounds of lower leg [S81.809A] INVALID FOR* Priority: D Colon cancer screening [Z12.11] INVALID FOR* Chest pain [R07.9] INVALID FOR* Priority: B More... Second degree heart block [I44.1] INVALID FOR* Priority: A More... Atherosclerosis of coronary artery bypass graft*INVALID FOR* Priority: A More... More... More... More... Hypoxia [R09.02] INVALID FOR* Chronic bilateral low back pain with left-sided*INVALID FOR* Priority: M Bilateral hip pain [M25.551, M25.552] INVALID FOR* Priority: M Paroxysmal atrial fibrillation (HCC) [I48.0] INVALID FOR* Priority: A More... 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 More... 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 More... Current use of proton pump inhibitor [Z79.899] INVALID FOR* More... More... Ulnar neuropathy at elbow of left upper extremi*INVALID FOR* Priority: M More... Hemoptysis [R04.2] INVALID FOR* Priority: A More... At high risk for falls [Z91.81] INVALID FOR* Memory changes [R41.3] INVALID FOR* Encounter Status:Closed by BERTRAND LEON on 02/14/18 PT ED Observed: 02/11/2018 Status: COMPLETED Source: [place] 3:53 PM [facility] OTHER CAMPUS REPOSITORY HNO ID: [id number] Author: Grecia MoyerRn) TALA Waters Service: (none) Author Type: Registered Nurse Type: Patient Education Filed: 02/11/2018 3:54 PM Note Text: POST OP LEARNING RESPONSE INSTRUCTION PROVIDED TO: Patient and Caregiver METHOD OF INSTRUCTION: teach back, written/verbal instruction and handouts PATIENT / FAMILY RESPONSE: Verbalizes understanding of: MEDICATION PRESCRIBED-Accurate knowledge of prescribed medication prior to discharge POST-PROCEDURE INSTRUCTIONS-Correct actions to take to reduce post procedure complications FOLLOW-UP PLAN: Patient instructed to call with any further issues Contact information given. SUPPLEMENTAL MATERIAL: None REFERRAL (RECOMMENDATION): None Electronically Signed By: Grecia Waters RN In Department: [facility] ENDOSCOPY NURSING PROG Observed: 02/11/2018 Status: COMPLETED Source: [place] 3:40 PM [facility] REPOSITORY HNO ID: [id number] Author: Grecia MoyerRn) TALA Waters Service: (none) Author Type: Registered Nurse Type: Nursing Progress Note Filed: 02/11/2018 3:43 PM Note Text: Nursing Progress Note Patient Name: Mayco Kendrick Patient Location: [place] Endo/[place] Endo @[address], pts ride called and states he is waiting in parking lot and can come as soon as called. Pt laughing, joking. Alert. Tolerating food and beverages given to him per TALA Henderson. Skin pink, warm and dry. @1730 Called [facility] and spoke with MARIAH De La Rosa. Sort Line of facility. Full report given. Will send operative note as well. RADIATION ONCOLOGY THERAPIST denies questions or concerns. Given phone # her if needed. This note was completed by: Grecia Waters RN PROCEDURE Observed: 02/11/2018 Status: COMPLETED Source: [place] 2:39 PM [facility] REPOSITORY HNO ID: [id number] Author: Chavez Huff Service: Pulmonary Disease Author Type: Physician Type: Procedures Filed: 02/11/2018 2:39 PM Note Text: BEDSIDE PROCEDURE NOTE Procedures 02/11/2018 Mayco Kendrick [id number] Flexible bronchoscopy with bronchial washing Pre-procedure Dx: Hemoptysis, chronic bronchitis Post-procedure Dx: Same Medications: Oxygen, Xylocaine topical, Midazolam, Fentanyl. Findings: Normal tracheobronchial mucosa at start of procedure demonstrated diffusely scattered mucosal punctate hemorrhages following paroxysmal coughing throughout the examination. There was also diffuse dynamic expiratory compression throughout the tracheobronchial tree observed during this paroxysmal coughing. Accomplished without difficulty. Tolerated well. Complications: No blood loss, chest pain, hypoxemia. Specimens: Bronchial washing: cytology, Bacterial CANDS. Full note in Provation. Chavez Huff MD, [facility] Medical Office [place] [address] P: [phone] F: [phone] SIGNATURE: Chavez Huff MD PATIENT NAME: Mayco Kendirck DATE: February 11, 2018 TIME: 2:39 PM PAGER/CONTACT #: OPERATIVE NO Observed: 02/11/2018 Status: COMPLETED Source: [place] 2:35 PM [facility] REPOSITORY HNO ID: [id number] Author: Chavez Huff Service: Pulmonary Disease Author Type: Physician Type: Operative Report Filed: 02/11/2018 2:39 PM Note Text: 02/11/2018 Mayco Kendrick [id number] Flexible bronchoscopy with bronchial washing Pre-procedure Dx: Hemoptysis, chronic bronchitis Post-procedure Dx: Same Medications: Oxygen, Xylocaine topical, Midazolam, Fentanyl. Findings: Normal tracheobronchial mucosa at start of procedure demonstrated diffusely scattered mucosal punctate hemorrhages following paroxysmal coughing throughout the examination. There was also diffuse dynamic expiratory compression throughout the tracheobronchial tree observed during this paroxysmal coughing. Accomplished without difficulty. Tolerated well. Complications: No blood loss, chest pain, hypoxemia. Specimens: Bronchial washing: cytology, Bacterial CANDS. Full note in Provation. Chavez Huff MD, [facility] Medical Office Building [address] [place] [id number] P: [phone] F: [phone] Observed: 02/11/2018 Status: F Source: [place] RESPIRATORY CULT/STAIN 2:30 PM CLINIC OTHER CAMPUS REPOSITORY Sp. Request/Comment: - Specimen received in sterile container. Smear Result - No organisms seen Rare Polymorphonuclear leukocytes Culture Result - Few Normal respiratory saumya present Performed By: #### RCULST #### [facility] [address] [place], [place] [address] HISTORY PHYSICAL Observed: 02/11/2018 Status: COMPLETED Source: [place] 1:22 PM [facility] OTHER CAMPUS REPOSITORY HNO ID: [id number] Author: Chavez Huff Service: Pulmonary Disease Author Type: Physician Type: HANDP Filed: 02/11/2018 1:25 PM Note Text: PROCEDURAL SEDATION HISTORY AND PHYSICAL EXAM SERVICE DATE: 02/11/2018 SERVICE TIME: 1:15 PM. Subjective HPI: This is a 77 year old male who presents with recurrent hemoptysis. PAST ANESTHESIA HISTORY: No history of adverse event PAST MEDICAL HISTORY Diagnosis Date - Abdominal pain 08/11/2014 w some distention. Appears chronic -abdominal ultrasound - ACUTE GASTRITIS W/O HEMORRHAGE 12/21/2006 - Acute on chronic diastolic CHF (congestive heart failure), NYHA class 4 (HCC) 03/08/2014 H/o HFpEF with diastolic dysfunction, ICM 55% EF Presents with CP and SOB Weight gain 30lbs in last 3 months Currently SOB and volume overload, in setting of unstable angina (killip 3) Plan Continue Diuresis As above for possible restrictive CM - ALLERGIC RHINITIS NOS 05/03/2006 - Asthma - ASTHMA UNSPECIFIED - Benign neoplasm of colon - Benign neoplasm of rectum and anal canal - Bilateral leg edema 11/05/2008 - Bradycardia 08/11/2014 Patient with sinus bradycardia with Type 1 Mobitz since 2011 however Pulse dropping to high 30s with dizziness Plan: Place on tele for monitoring EP evaluation for ? Pacemaker with new onset of symptoms 2/2 to relative hypotension vs bradycardia Daily EKGs to evaluate rhythm, still appears to be Mobitz type 1 Keep K and Mag above 4 and 2 respectively - Carpal tunnel syndrome 03/28/2010 - Chest pain 07/26/2014 73 year old male transferred from OSH for Unstable angina, chest pain on a Nitro and heparin Drip. First set of enzymes was negative. No ST-T wave chanes on EKG Mobitz type 1 AV block (chronic) ALVERTO score 5 With associated SOB and Pulmonary edema on CXR (Killip class 3) Found not to have acute plaque rupture ?Restrictive cardiomyopathy Will need LHC (LVEDP) and RHC tomorrow - per Dr. Pepe would like Dr. Randall PLAN NPO at midnight Call Cath Charge in AM to confirm schedule and attending Continue diuresis Additionally: - ASA - Stop plavix - reduce Atorvastatin to 20mg (home dose, last LDL ~55) - Losartan - Chest pain with painful respiration 08/11/2014 Chest heaviness. Unstable angina ? -stat EKG -telemetry - trend Ghazala - Congestive heart failure (HCC) - Controlled type 2 diabetes mellitus with diabetic nephropathy ([facility]) 01/18/2014 - Coronary artery disease - CORONARY ATHEROSCLER UNSPEC VESSEL 05/15/2005 - Coronary atherosclerosis due to lipid rich plaque 09/25/2015 - Depression - DEPRESSIVE DISORDER NEC 02/19/2009 - Diverticulitis - Diverticulosis of colon (without mention of hemorrhage) - DM type 2 (diabetes mellitus, type 2) ([facility]) 09/05/2014 - Edema 11/05/2008 - Essential hypertension, benign 02/02/2011 Essential hypertension, benign Home meds - losartan, norvasc, isosorbide mononitrate, lasix AND torsemide PLAN -hypotensive at OSH so hold bp meds for now. Resume as the bp normalizes. 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 Say Pulmonary 06/2017 and said he would be very high risk for a Bronch due to obesity and known diastolic LV dysfunction. Patient has been back on Xarelto since early November per [facility]. - Hip fracture, right ([facility]) 09/22/2012 Treated medically - History of prostatitis 04/11/2013 - Hyperlipidemia - Hypertension - Hypertrophy of nasal turbinates 07/06/2012 consult with [facility] 06/29/2012 Plan to schedule ablation of inferior turbinates @ [facility]. - Insomnia, unspecified 06/17/2011 [facility] report reviewed October 22, 2011 Matt Taylor MD - Leg swelling - Lumbago 05/11/2007 - MALIGN NEOPL PROSTATE - Mobitz (type) I (Wenckebach's) atrioventricular block 07/26/[address] Eric Go in 2012. Chronic conduction abnormality. does not need a pacemaker. Here with concern for ACS EKG: mobitz type 1, unchanged from prior, no ST-T wave changes BP stable Plan: Monitor Avoiding BB - Morbid obesity 06/02/2011 07/08/2017: H: 72 in, W: 358 lb, BMI 48.54. 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 01/18/2014 - Type II or unspecified type diabetes mellitus without mention of complication, not stated as uncontrolled - Unspecified sleep apnea CPAP 18 with 1L - Urgency of urination 02/01/2014 PAST SURGICAL HISTORY Procedure Laterality Date - CABG, ARTERY-VEIN, TWO 1998 CABG, two grafts - CHOLECYSTECTOMY HX 10/14/2015 gangrenous gallbladder - COLONOSCOP W/ OR W/O BRSH SPEC 01/27/2005 Colonoscopy - COLONOSCOP W/ OR W/O BRSH SPEC 12/21/2006` repeat in -2011 - COLONOSCOP W/ OR W/O BRSH SPEC 05/18/2012 Colonoscopy repeat 5 years - COLONOSCOPY 12/29/2016 repeat 10 yrs - EGD 12/29/2016 - EGD W/O BRSH SPECIMEN W/BX 12/21/06 - EGD W/O OR W/BRUSH/WASH 01/27/2005 EGD - EGD W/O OR W/BRUSH/WASH 11/21/14 EGD - OPEN CORONARY ENDARTERECTOMY 1999 Angioplasty with stent placement - PACEMAKER 2017 - REMOVAL OF TONSILS,<12 Y/O Tonsillectomy - REPAIR RETINAL DETACH, C 10/2010 - REVISE MEDIAN N/CARPAL TUNNEL SURG Right 09/10/2017 Right CTR - REVISE MEDIAN N/CARPAL TUNNEL SURG Left 01/14/2018 Left CTR - REVISE ULNAR NERVE AT ELBOW Right 09/10/2017 Right ulnar nerve decompression - REVISE ULNAR NERVE AT ELBOW Left 01/14/2018 Left unlar nerve decompression - TOTAL HIP REPLACEMENT 2000 Hip replacement, total, right - TOTAL HIP REPLACEMENT 2001 Hip replacement, total, left Prior to Admission medications as of 01/27/18 0910 Medication Sig Last Dose Taking glimepiride (AMARYL) 1 mg tablet Take 1 tablet by mouth daily with breakfast. 02/10/2018 at 0800 Yes metFORMIN (GLUCOPHAGE) 500 mg tablet Take 1 tablet by mouth three times daily with meals. 02/10/2018 at 1200 Yes aluminum AND magnesium hydroxide-simethicone (MAALOX PLUS EXTRA STRENGTH) 400-400-40 mg/5 mL suspension Take 20 mL by mouth every 6 hours as needed (upset stomach). 02/09/2018 sucralfate (CARAFATE) 1 gram tablet Take 1 tablet by mouth three times daily before meals. 30 minutes before meals. 01/14/[address] (PROTONIX) 40 mg tablet Take 1 tablet by mouth daily before breakfast. Take on empty stomach, 1/2 hr before meal. Per Gastroenterology traZODone (DESYREL) 50 mg tablet Take 1 tablet by mouth at bedtime as needed (sedation). docusate sodium (DOC-Q-LACE) 100 mg capsule Take 1 capsule by mouth once daily. guaiFENesin (SILTUSSIN SA) 100 mg/5 mL syrup Take 10 mL by mouth three times daily as needed. triamcinolone acetonide (KENALOG) 0.1 % cream Apply to itching rash on chest twice daily ONLY when needed; may keep in room COMPOUNDED PRESCRIPTION Rollator, # one Dx: I50.33, I25.700, I48.0, J45.20, E66.01, M54.42, M25.551, Z91.81 ammonium lactate (LAC-HYDRIN) 12 % cream Apply 1 application to affected area twice daily as needed. rivaroxaban (XARELTO) 20 mg tablet Take 1 tablet by mouth daily with dinner. Patient not taking: Reported on 01/27/2018 furosemide (LASIX) 80 mg tablet One PO daily in AM furosemide (LASIX) 40 mg tablet One PO daily at dinner oxybutynin (DITROPAN) 5 mg tablet Take 1 tablet by mouth three times daily. metoprolol tartrate, short acting, (LOPRESSOR) 25 mg tablet Take 1 tablet by mouth every 12 hours. ketoconazole (NIZORAL) 2 % shampoo Use as a body wash, most specifically the chest, daily for itching and flaking; may keep in own shower atorvastatin (LIPITOR) 80 mg tablet Take 1 tablet by mouth once daily. tamsulosin ER (FLOMAX) 0.4 mg cp24 Take 1 capsule by mouth every evening. for prostate nitroglycerin sublingual (NITROSTAT) 0.4 mg SL tablet Take 1 tablet by mouth as needed. for chest pain; dissolve on tongue. If no pain relief call 911. Ranitidine HCl 300 mg tablet Take with evening meal. magnesium oxide (MAG-OX) 400 mg tablet Take 1 tablet by mouth once daily. COMPOUNDED PRESCRIPTION Please eval and fix any issues with walker. Dx: I50.33, I25.10, E66.01, M54.42, M25.551 bisacodyl (DULCOLAX) 10 mg supp 1 Suppository by RECTAL route once daily as needed (for constipation). polyethylene glycol 3350 (MIRALAX, GLYCOLAX) 17 gram/dose powder 17 g up to twice daily as needed prn constipation aspirin, enteric coated (ADULT LOW DOSE ASPIRIN) 81 mg EC tablet Take 1 tablet by mouth once daily. COMPOUNDED PRESCRIPTION Glucometer high/low test solution for accucheck. DX: DM COMPOUNDED PRESCRIPTION Please perform a nocturnal oximetry on room air on BiPAP. Diagnosis: Hypoxia Please fax results to [phone] Attn: Glendy Lancdayana (ACCU-CHEK FASTCLIX) lancets Test glucose twice weekly. Dx: 250.00. Insulin Use: no Unknown at Unknown time blood sugar diagnostic test strip testing twice weekly dx 250.00 insulin no Blood-Glucose Meter, Drum-type (ACCU-CHEK COMPACT PLUS CARE) kit Test fasting blood sugar 1-2 times a week and 2 hrs post meal 1- 2 times a week. Blood-Glucose Meter (ONETOUCH ULTRA 2) monitoring kit 1 Each as needed. One Touch Meter Kit Diagnosis: Diabetes Mellitus Blood Glucose Control, Normal (OT ULTRA/FASTTRACK CONTROL) soln Test controls as needed. COMPOUNDED PRESCRIPTION BIPAP setting: IPAP 22cm water with heated humidification EPAP setting of 16cm with supplemental oxygen bleed in at 2lt per minute. Mask (per patient preference) and supplies for lifetime. Please add chin strap DX EDMOND 327.23 ALLERGIES Allergen Reactions - Lisinopril Other: See Comments Metallic taste in mouth. - Sertraline GI Upset Objective PHYSICAL EXAM: GENERAL: Morbidly Obese, No Distress, Cooperative SKIN: Skin color, texture, turgor normal. No rashes or lesions. ABDOMEN: Obese, protuberant, not distended. EXTREMITIES: Extremities normal, no deformities, edema, clubbing or skin discoloration. Good capillary refill. AIRWAY: Airway Visualization of Uvula: Yes Mouth opening greater than 2 fingerbreadths: Yes Neck Full Range of Motion: Yes LUNGS: No accessory respiratory muscle use. No stridor or wheezes. CARDIAC: Irregularly irregular rythm. Unable to visualize HJR or JVD. Assessment/Plan ASA Class: ASA Class:: Patient with mild systemic disease Recurrent hemoptysis. Morbid obesity. Chronic atrial fibrillation. Provisional Diagnosis/Treatment Plan: flexible bronchoscopy with possible biopsy. SEDATION GOAL: Moderate SIGNATURE: Chavez Huff MD PATIENT NAME: Mayco Kendrick DATE: February 11, 2018 TIME: 1:22 PM PAGER: [phone] PT ED Observed: 02/11/2018 Status: COMPLETED Source: [place] 1:16 PM CLINIC OTHER CAMPUS REPOSITORY HNO ID: [id number] Author: Kingsley (Tala) TALA Hilton Service: Nursing Author Type: Registered Nurse Type: Patient Education Filed: 02/11/2018 1:16 PM Note Text: PRE OP LEARNING ASSESSMENT PROCEDURE/SURGERY: SURGERY: Bronchoscopy READINESS TO LEARN COGNITIVE ABILITY: Alert and oriented MOTIVATION TO LEARN: Eager FAMILY SUPPORT: High - Very involved in pt care PATIENT LEARNS BEST BY: Written Instruction - Hand-outs Verbal Instruction FACTORS AFFECTING LEARNING: None PHYSICAL LIMITATIONS AFFECTING LEARNING: None Electronically Signed By: Kingsley Hilton RN In Department: [facility] END[facility] Observed: 02/01/2018 Status: COMPLETED Source: [place] 12:00 AM CLINIC OTHER CAMPUS REPOSITORY Patient:Mayco Kendrick MRN: <[id number]> Height:6' .008(1.829 m) Weight:328 lb 14.8 oz (149.2 kg) Outpatient Medications as of 02/11/18: aluminum AND magnesium hydroxide-simethicone (MAALOX PLUS EXTRA STRENGTH) 400-400-40 mg/5 mL suspension sucralfate (CARAFATE) [address] (PROTONIX) 40 mg tablet traZODone (DESYREL) 50 mg tablet docusate sodium (DOC-Q-LACE) 100 mg capsule guaiFENesin (SILTUSSIN SA) 100 mg/5 mL syrup triamcinolone acetonide (KENALOG) 0.1 % cream COMPOUNDED PRESCRIPTION ammonium lactate (LAC-HYDRIN) 12 % cream rivaroxaban (XARELTO) 20 mg tablet furosemide (LASIX) 80 mg tablet furosemide (LASIX) 40 mg tablet oxybutynin (DITROPAN) 5 mg tablet glimepiride (AMARYL) 1 mg tablet metoprolol tartrate, short acting, (LOPRESSOR) 25 mg tablet ketoconazole (NIZORAL) 2 % shampoo atorvastatin (LIPITOR) 80 mg tablet tamsulosin ER (FLOMAX) 0.4 mg cp24 metFORMIN (GLUCOPHAGE) 500 mg tablet nitroglycerin sublingual (NITROSTAT) 0.4 mg SL tablet Ranitidine HCl 300 mg tablet magnesium oxide (MAG-OX) 400 mg tablet COMPOUNDED PRESCRIPTION bisacodyl (DULCOLAX) 10 mg supp polyethylene glycol 3350 (MIRALAX, GLYCOLAX) 17 gram/dose powder aspirin, enteric coated (ADULT LOW DOSE ASPIRIN) 81 mg EC tablet COMPOUNDED PRESCRIPTION COMPOUNDED PRESCRIPTION Lancets (ACCU-CHEK FASTCLIX) lancets blood sugar diagnostic test strip Blood-Glucose Meter, Drum-type (ACCU-CHEK COMPACT PLUS CARE) kit Blood-Glucose Meter (ONETOUCH ULTRA 2) monitoring kit Blood Glucose Control, Normal (OT ULTRA/FASTTRACK CONTROL) soln COMPOUNDED PRESCRIPTION Admission/Clinic Administered Medications as of 02/11/18: 0.9% NaCl 2-10 mL NaCl 0.9% iv infusion Problem List: Mild intermittent asthma without complication [J45.20] MALIGN NEOPL PROSTATE [C61] Allergic rhinitis, cause unspecified [J30.9] Personal history of colonic polyps [Z86.010] Lumbago [M54.5] Bilateral leg edema [R60.0] Carpal tunnel syndrome, bilateral [G56.03] Essential hypertension, benign [I10] Insomnia, unspecified [G47.00] Benign neoplasm of rectum and anal canal [D12.8, D12.9] Diverticulosis of colon (without mention of hemorrhage) [K57.30] Hypertrophy of nasal turbinates [J34.3] History of prostatitis [Z87.438] Heart block AV complete [I44.2] Frequency of urination [R35.0] Urgency of urination [R39.15] Acute on chronic diastolic CHF (congestive heart failure), NYHA class 4 (HCC) [I50.33] EDMOND (obstructive sleep apnea) [G47.33] Mobitz (type) I (Wenckebach's) atrioventricular block [I44.1] Mixed hyperlipidemia [E78.2] Bradycardia [R00.1] Venous stasis dermatitis of both lower extremities [I87.2] Hypomagnesemia [E83.42] Diabetic eye exam (HCC) [Z01.00, E11.9] Dry mouth [R68.2] Noncompliance [Z91.19] Gastroesophageal reflux disease without esophagitis [K21.9] Coronary atherosclerosis due to lipid rich plaque [I25.10, I25.83] Morbid obesity due to excess calories ([facility]) [E66.01] Essential tremor [G25.0] Chronic cough [R05] Controlled type 2 diabetes mellitus with diabetic nephropathy, without long-term current use of insulin ([facility]) [E11.21] Depression [F32.9] Multiple open wounds of lower leg [S81.809A] Colon cancer screening [Z12.11] Chest pain [R07.9] Second degree heart block [I44.1] 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) [I25.700] Hypoxia [R09.02] Chronic bilateral low back pain with left-sided sciatica [M54.42, G89.29] Bilateral hip pain [M25.551, M25.552] Paroxysmal atrial fibrillation (HCC) [I48.0] 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] Presence of cardiac pacemaker [Z95.0] Esophagitis [K20.9] Albuminuria [R80.9] Current use of proton pump inhibitor [Z79.899] Ulnar neuropathy at elbow of left upper extremity [G56.22] Hemoptysis [R04.2] At high risk for falls [Z91.81] Memory changes [R41.3] Allergies: Lisinopril Sertraline Date Verified: 02/11/18 Lab Values No results within the last 30 days for the following basenames: K,HCT Progress Notes ([facility]): Vivi Stroud RN 01/31/2018 3:48 PM Signed Paper from [facility] placed in box for signature Vivi Robelro MD 01/31/2018 4:41 PM Addendum Signed Braulio Roblero MD Previous Version [facility] Notes [facility] Janet Rodriguez LPN 01/27/2018 9:04 AM Signed ROS: General: Generally feels well. Appetite good. Eyes, Ears, nose, throat: denies post nasal drip. denies rhinorrhea. denies purulent nasal discharge. notes epistaxis. denies hoarseness. Vision stable. Cardiac: denies angina, notes edema, denies orthopnea. GI: denies heartburn. denies dysphagia. denies diarrhea. Uro/MANAGER STATISTICS: denies dysuria. denies hesitancy. denies nocturia. Menses: N/A Musculoskeletal: notes arthritis pain. Neuro: denies headache, denies focal weakness. denies tremor. Skin: denies rash. Otherwise negative. Reviewed with patient, confirmed as documented by Janet Rodriguez LPN. TO Previous Version Chavez Huff MD 01/27/2018 9:45 AM Signed [facility], 01/27/2018: INTERVAL HISTORY: Since last Pulmonary clinic visit has accomplished both left and right carpal tunnel and ulnar nerve releases, believes procedures were successful. No issues with would healing. General anesthesia, no issues with recovery after sedation/anesthesia. Notes cough still occasionally productive of blood on at least 3 occasions, tip of thumb size blood cough. Daily productive cough with yellow sputum, thick and pasty; always during day, does not interrupt sleep. No fever or pleuritic chest pain associated with this. No wheezing. Still short of breath as described 06/2017, not worse. Normal ankle and lower leg edema. ROS: Reviewed with patient, confirmed as documented by Janet Rodriguez LPN. TO PMH: Updated with patient today. No change. FAMH: Updated with patient today. No change. SOCH: No change in home environment. Allergies reviewed and updated, and medications reconciled today. PHYSICAL EXAMINATION: BP 138/62 Pulse 72 Resp 16 Ht 6' 0 (1.83m) Wt 329 lb (149.2kg) SpO2 94% BMI 44.61 kg/(m2). Gen: No acute distress. Cooperative with examination. Morbidly obese. ENT: Sclerae clear. EOMI. Anterior nares clear. Tip of uvula is visible. Resp: No stridor, accessory respiratory muscle use, supra- sternal or intercostal retractions. A-P diameter normal. Bibasilar crackles. No wheezes, rubs. CV: Regular rythm. Heart tones muffled. Unable to visualize JVP, HJR. No carotid bruit. Radial pulses normal. Abd: Obese, protuberant, not distended. MSK: No kyphoscoliosis. Ext: Warm. No clubbing. Full leg wraps limit assessment of edema. No sclerodactyly, Raynaud's. Skin: Leg wraps. Otherwise no rash, eczema, urticaria, petechiae, telangiectasia, ecchymoses. Lymph: Unable to appreciate adenopathy in neck, supra-clavicular fossae. Endo: Unable to appreciate goiter. No exophthalmos, onycholysis. Neuro: Mental status: Awake, alert, oriented to person/place/time. Affect normal. Muscle tone symmetric. No tremor. ? DATA REVIEW: PFT 02/12/2015 07/14/2017 FVC: ?3.05 L, 58 % ? 2.59L, 57% FEV1: ?2.55 L, 67 % ??? 2.23L, 67% FEV1%:?0.84 0.86 FEF 25-75:?3.42 L/sec, 121 % 2.89, 119% DLCO: ?19.6, 71 % 21.6, 84% DLCO/VA: ?3.96, 111 % 4.59, 125% CXR Report, [facility], 11/20/2017: Right-sided pacemaker. The lungs are clear to expand. There is no demonstrated pleural abnormality. There is mild cardiac enlargement. Status post median sternotomy. Normal mediastinum and tj, visualized pulmonary arteries, visualized aortic arch and descending thoracic aorta, visualized thoracic spine, ribs, clavicles and shoulders. There is no demonstrated abnormality visualized soft tissue structures of the upper abdomen. CXR Report, [facility], 05/03/2017: Infiltration in the left hemithorax. Blunting of the left costophrenic angle. Mild increased marking at the right lung base. sternal wires and vascular clips are present from prior sternotomy and coronary bypass graft. Right-sided dual-chamber pacemaker is seen. Normal mediastinum and tj. Normal visualized pulmonary arteries. Normal visualized aortic arch and descending thoracic aorta. Normal visualized thoracic spine, ribs, clavicles and shoulders. No demonstrated abnormalities the visualized soft tissue structures of the upper abdomen. ? CTA CHEST Report, [facility], 05/03/2017: Comparison: Prior examination 04/21/2016. small bilateral benign-appearing axillary lymph nodes. Normal enhancement of the main, right and left, and bilateral peripheral pulmonary arteries. No demonstrated pulmonary embolism. Atherosclerotic calcification of the aortic arch with tortuosity. No demonstrated aortic dissection. *Wires and vascular clips are present from a prior sternotomy and CABG. Calcification of the coronary arteries. Normal mediastinum. Normal tj. normal visualized trachea and bronchi. Volume loss in left hemithorax. Normal pulmonary parenchyma. Normal pleura. Normal chest wall structures. Mild degenerative changes of the thoracic spine. fatty infiltration of the liver. Small hiatal hernia. Stable focal enlargement of the left adrenal gland. ? I have NOT personally and independently reviewed these CXR or CTA chest images. TO Component Ref Rng AND Units 07/08/2017 12/30/2017 01/07/2018 WBC 3.70 - 11.00 k/uL 8.92 RBC 4.20 - 6.00 m/uL 4.91 Hemoglobin 13.0 - 17.0 g/dL 14.1 Hematocrit 39.0 - 51.0 % 44.5 Platelet Count 150 - 400 k/uL 244 Protein, Total 6.3 - 8.0 g/dL 7.6 Albumin 3.9 - 4.9 g/dL 4.0 Calcium 8.5 - 10.2 mg/dL 9.2 Bilirubin, Total 0.2 - 1.3 mg/dL 0.5 Alkaline Phosphatase 36 - 108 U/L 85 AST 14 - 40 U/L 22 Glucose 74 - 99 mg/dL 73 (L) BUN 9 - 24 mg/dL 15 Creatinine 0.73 - 1.22 mg/dL 0.90 Sodium 136 - 144 mmol/L 142 Potassium 3.7 - 5.1 mmol/L 3.9 Chloride 97 - 105 mmol/L 100 CO2 22 - 30 mmol/L 28 Anion Gap 9 - 18 mmol/L 14 ALT 10 - 54 U/L 19 eGFR-All Other Races . >60 NT Pro BNP <450 pg/mL 441 IMPRESSION/RECOMMEND: 1. Hemoptysis due to chronic bronchitis, and Xarelto. CTA chest previously excluded pulmonary embolism, pneumonia, lung mass; and most recent CXR is also clear. - I have discussed the indications, risks, alternatives and personnel involved in Flexible bronchoscopy, and the patient has verbally agreed to proceed. I have sent orders to my staff to schedule 02/11/2018. Informed consent is signed today. - he is advised to hold Xarelto for 5 days prior to the procedure, last dose 02/06/2018. ? 2. Morbid obesity. Body Mass Index (BMI) today is 44.61 at current weight of 329 pounds. Normal BMI is 18.5-25, corresponding to a goal weight range of 135-185 pounds in an individual of this patient's height. The patient is at least 140 pounds overweight. - Weight loss is critical. Consider referral to Weight Management program such as Weight Watchers. Age and concomitant cardiac dysfunction would likely preclude bariatric surgery. Deferred to Primary Care Physician, Bertrand Leon MD. ? This note is shared today with Bertrand Leon MD and Braulio Roblero MD via [employer] electronic medical record. I addressed the questions of the patient, and he expressed understanding and acceptance of my answers. Chavez Huff MD, [facility] [address] [address] P: [phone] F: [phone] [email or web address] Chavez Huff MD 01/27/2018 9:36 AM Addendum IMPRESSION/RECOMMEND: 1. Hemoptysis due to acute/chronic bronchitis, and Xarelto. CTA chest excluded pulmonary embolism, pneumonia, lung mass; and most recent CXR is also clear. - I have discussed the indications, risks, alternatives and personnel involved in Flexible bronchoscopy, and the patient has verbally agreed to proceed. Informed consent is signed today. - Outpatient Flexible bronchoscopy will be scheduled 02/11/2018 at [facility]. Staff (Paulina) will call patient. - Stop taking Xarelto 5 days before, last dose 02/06/2018. ? This note is shared 07/27/2017 with Bertrand Leon MD, Braulio Roblero MD via [employer] electronic medical record. I addressed the questions of the patient, and he expressed understanding and acceptance of my answers. Chavez Huff MD, [facility] [address] [address] P: [phone] F: [phone] [email or web address] Previous Version PROGRESS Observed: 01/27/2018 Status: COMPLETED Source: [place] 9:01 AM [facility] HNO ID: [id number] Author: Chavez Huff Service: (none) Author Type: Physician Type: Progress Notes Filed: 01/27/2018 9:45 AM Note Text: [facility], 01/27/2018: INTERVAL HISTORY: Since last Pulmonary clinic visit has accomplished both left and right carpal tunnel and ulnar nerve releases, believes procedures were successful. No issues with would healing. General anesthesia, no issues with recovery after sedation/anesthesia. Notes cough still occasionally productive of blood on at least 3 occasions, tip of thumb size blood cough. Daily productive cough with yellow sputum, thick and pasty; always during day, does not interrupt sleep. No fever or pleuritic chest pain associated with this. No wheezing. Still short of breath as described 06/2017, not worse. Normal ankle and lower leg edema. ROS: Reviewed with patient, confirmed as documented by Janet Rodriguez LPN. TO PMH: Updated with patient today. No change. FAMH: Updated with patient today. No change. SOCH: No change in home environment. Allergies reviewed and updated, and medications reconciled today. PHYSICAL EXAMINATION: BP 138/62 Pulse 72 Resp 16 Ht 6' 0 (1.83m) Wt 329 lb (149.2kg) SpO2 94% BMI 44.61 kg/(m2). Gen: No acute distress. Cooperative with examination. Morbidly obese. ENT: Sclerae clear. EOMI. Anterior nares clear. Tip of uvula is visible. Resp: No stridor, accessory respiratory muscle use, supra- sternal or intercostal retractions. A-P diameter normal. Bibasilar crackles. No wheezes, rubs. CV: Regular rythm. Heart tones muffled. Unable to visualize JVP, HJR. No carotid bruit. Radial pulses normal. Abd: Obese, protuberant, not distended. MSK: No kyphoscoliosis. Ext: Warm. No clubbing. Full leg wraps limit assessment of edema. No sclerodactyly, Raynaud's. Skin: Leg wraps. Otherwise no rash, eczema, urticaria, petechiae, telangiectasia, ecchymoses. Lymph: Unable to appreciate adenopathy in neck, supra-clavicular fossae. Endo: Unable to appreciate goiter. No exophthalmos, onycholysis. Neuro: Mental status: Awake, alert, oriented to person/place/time. Affect normal. Muscle tone symmetric. No tremor. ? DATA REVIEW: PFT 02/12/2015 07/14/2017 FVC: ?3.05 L, 58 % ? 2.59L, 57% FEV1: ?2.55 L, 67 % ??? 2.23L, 67% FEV1%:?0.84 0.86 FEF 25-75:?3.42 L/sec, 121 % 2.89, 119% DLCO: ?19.6, 71 % 21.6, 84% DLCO/VA: ?3.96, 111 % 4.59, 125% CXR Report, [facility], 11/20/2017: Right-sided pacemaker. The lungs are clear to expand. There is no demonstrated pleural abnormality. There is mild cardiac enlargement. Status post median sternotomy. Normal mediastinum and tj, visualized pulmonary arteries, visualized aortic arch and descending thoracic aorta, visualized thoracic spine, ribs, clavicles and shoulders. There is no demonstrated abnormality visualized soft tissue structures of the upper abdomen. CXR Report, [facility], 05/03/2017: Infiltration in the left hemithorax. Blunting of the left costophrenic angle. Mild increased marking at the right lung base. sternal wires and vascular clips are present from prior sternotomy and coronary bypass graft. Right-sided dual-chamber pacemaker is seen. Normal mediastinum and tj. Normal visualized pulmonary arteries. Normal visualized aortic arch and descending thoracic aorta. Normal visualized thoracic spine, ribs, clavicles and shoulders. No demonstrated abnormalities the visualized soft tissue structures of the upper abdomen. ? CTA CHEST Report, [facility], 05/03/2017: Comparison: Prior examination 04/21/2016. small bilateral benign-appearing axillary lymph nodes. Normal enhancement of the main, right and left, and bilateral peripheral pulmonary arteries. No demonstrated pulmonary embolism. Atherosclerotic calcification of the aortic arch with tortuosity. No demonstrated aortic dissection. *Wires and vascular clips are present from a prior sternotomy and CABG. Calcification of the coronary arteries. Normal mediastinum. Normal tj. normal visualized trachea and bronchi. Volume loss in left hemithorax. Normal pulmonary parenchyma. Normal pleura. Normal chest wall structures. Mild degenerative changes of the thoracic spine. fatty infiltration of the liver. Small hiatal hernia. Stable focal enlargement of the left adrenal gland. ? I have NOT personally and independently reviewed these CXR or CTA chest images. TO Component Ref Rng AND Units 07/08/2017 12/30/2017 01/07/2018 WBC 3.70 - 11.00 k/uL 8.92 RBC 4.20 - 6.00 m/uL 4.91 Hemoglobin 13.0 - 17.0 g/dL 14.1 Hematocrit 39.0 - 51.0 % 44.5 Platelet Count 150 - 400 k/uL 244 Protein, Total 6.3 - 8.0 g/dL 7.6 Albumin 3.9 - 4.9 g/dL 4.0 Calcium 8.5 - 10.2 mg/dL 9.2 Bilirubin, Total 0.2 - 1.3 mg/dL 0.5 Alkaline Phosphatase 36 - 108 U/L 85 AST 14 - 40 U/L 22 Glucose 74 - 99 mg/dL 73 (L) BUN 9 - 24 mg/dL 15 Creatinine 0.73 - 1.22 mg/dL 0.90 Sodium 136 - 144 mmol/L 142 Potassium 3.7 - 5.1 mmol/L 3.9 Chloride 97 - 105 mmol/L 100 CO2 22 - 30 mmol/L 28 Anion Gap 9 - 18 mmol/L 14 ALT 10 - 54 U/L 19 eGFR-All Other Races . >60 NT Pro BNP <450 pg/mL 441 IMPRESSION/RECOMMEND: 1. Hemoptysis due to chronic bronchitis, and Xarelto. CTA chest previously excluded pulmonary embolism, pneumonia, lung mass; and most recent CXR is also clear. - I have discussed the indications, risks, alternatives and personnel involved in Flexible bronchoscopy, and the patient has verbally agreed to proceed. I have sent orders to my staff to schedule 02/11/2018. Informed consent is signed today. - he is advised to hold Xarelto for 5 days prior to the procedure, last dose 02/06/2018. ? 2. Morbid obesity. Body Mass Index (BMI) today is 44.61 at current weight of 329 pounds. Normal BMI is 18.5-25, corresponding to a goal weight range of 135-185 pounds in an individual of this patient's height. The patient is at least 140 pounds overweight. - Weight loss is critical. Consider referral to Weight Management program such as Weight Watchers. Age and concomitant cardiac dysfunction would likely preclude bariatric surgery. Deferred to Primary Care Physician, Bertrand Leon MD. ? This note is shared today with Bertrand Leon MD and Braulio Roblero MD via [facility] electronic medical record. I addressed the questions of the patient, and he expressed understanding and acceptance of my answers. Chavez Huff MD, [facility] [address] [place] [address] P: [phone] F: [phone] [email or web address] CNOV Observed: 01/27/2018 Status: COMPLETED Source: [place] 9:00 AM [facility] Office Visit (PULMWS) MAYCO KENDRICK ([id number]) 1940 M [facility] Date Time Provider Department 01/27/18 9:00 AM CHAVEZ HUFF During your visit today, we recorded the following information about you: Pulse Respiration Blood pressure Weight 72/minute 16/minute 138/62 149.2 kg Height 1.829 m Janet Rodriguez RADIATION ONCOLOGY THERAPIST 01/27/2018 9:04 AM Signed ROS: General: Generally feels well. Appetite good. Eyes, Ears, nose, throat: denies post nasal drip. denies rhinorrhea. denies purulent nasal discharge. notes epistaxis. denies hoarseness. Vision stable. Cardiac: denies angina, notes edema, denies orthopnea. GI: denies heartburn. denies dysphagia. denies diarrhea. Uro/MANAGER STATISTICS: denies dysuria. denies hesitancy. denies nocturia. Menses: N/A Musculoskeletal: notes arthritis pain. Neuro: denies headache, denies focal weakness. denies tremor. Skin: denies rash. Otherwise negative. Reviewed with patient, confirmed as documented by Janet Rodriguez LPN. TO Chavez Huff MD 01/27/2018 9:45 AM Signed [facility], 01/27/2018: INTERVAL HISTORY: Since last Pulmonary clinic visit has accomplished both left and right carpal tunnel and ulnar nerve releases, believes procedures were successful. No issues with would healing. General anesthesia, no issues with recovery after sedation/anesthesia. Notes cough still occasionally productive of blood on at least 3 occasions, tip of thumb size blood cough. Daily productive cough with yellow sputum, thick and pasty; always during day, does not interrupt sleep. No fever or pleuritic chest pain associated with this. No wheezing. Still short of breath as described 06/2017, not worse. Normal ankle and lower leg edema. ROS: Reviewed with patient, confirmed as documented by Janet Rodriguez LPN. TO PMH: Updated with patient today. No change. FAMH: Updated with patient today. No change. SOCH: No change in home environment. Allergies reviewed and updated, and medications reconciled today. PHYSICAL EXAMINATION: BP 138/62 Pulse 72 Resp 16 Ht 6' 0 (1.83m) Wt 329 lb (149.2kg) SpO2 94% BMI 44.61 kg/(m2). Gen: No acute distress. Cooperative with examination. Morbidly obese. ENT: Sclerae clear. EOMI. Anterior nares clear. Tip of uvula is visible. Resp: No stridor, accessory respiratory muscle use, supra- sternal or intercostal retractions. A-P diameter normal. Bibasilar crackles. No wheezes, rubs. CV: Regular rythm. Heart tones muffled. Unable to visualize JVP, HJR. No carotid bruit. Radial pulses normal. Abd: Obese, protuberant, not distended. MSK: No kyphoscoliosis. Ext: Warm. No clubbing. Full leg wraps limit assessment of edema. No sclerodactyly, Raynaud's. Skin: Leg wraps. Otherwise no rash, eczema, urticaria, petechiae, telangiectasia, ecchymoses. Lymph: Unable to appreciate adenopathy in neck, supra-clavicular fossae. Endo: Unable to appreciate goiter. No exophthalmos, onycholysis. Neuro: Mental status: Awake, alert, oriented to person/place/time. Affect normal. Muscle tone symmetric. No tremor. ? DATA REVIEW: PFT 02/12/2015 07/14/2017 FVC: ?3.05 L, 58 % ? 2.59L, 57% FEV1: ?2.55 L, 67 % ??? 2.23L, 67% FEV1%:?0.84 0.86 FEF 25-75:?3.42 L/sec, 121 % 2.89, 119% DLCO: ?19.6, 71 % 21.6, 84% DLCO/VA: ?3.96, 111 % 4.59, 125% CXR Report, [facility], 11/20/2017: Right-sided pacemaker. The lungs are clear to expand. There is no demonstrated pleural abnormality. There is mild cardiac enlargement. Status post median sternotomy. Normal mediastinum and tj, visualized pulmonary arteries, visualized aortic arch and descending thoracic aorta, visualized thoracic spine, ribs, clavicles and shoulders. There is no demonstrated abnormality visualized soft tissue structures of the upper abdomen. CXR Report, [facility], 05/03/2017: Infiltration in the left hemithorax. Blunting of the left costophrenic angle. Mild increased marking at the right lung base. sternal wires and vascular clips are present from prior sternotomy and coronary bypass graft. Right-sided dual-chamber pacemaker is seen. Normal mediastinum and tj. Normal visualized pulmonary arteries. Normal visualized aortic arch and descending thoracic aorta. Normal visualized thoracic spine, ribs, clavicles and shoulders. No demonstrated abnormalities the visualized soft tissue structures of the upper abdomen. ? CTA CHEST Report, [facility], 05/03/2017: Comparison: Prior examination 04/21/2016. small bilateral benign-appearing axillary lymph nodes. Normal enhancement of the main, right and left, and bilateral peripheral pulmonary arteries. No demonstrated pulmonary embolism. Atherosclerotic calcification of the aortic arch with tortuosity. No demonstrated aortic dissection. *Wires and vascular clips are present from a prior sternotomy and CABG. Calcification of the coronary arteries. Normal mediastinum. Normal tj. normal visualized trachea and bronchi. Volume loss in left hemithorax. Normal pulmonary parenchyma. Normal pleura. Normal chest wall structures. Mild degenerative changes of the thoracic spine. fatty infiltration of the liver. Small hiatal hernia. Stable focal enlargement of the left adrenal gland. ? I have NOT personally and independently reviewed these CXR or CTA chest images. TO Component Ref Rng AND Units 07/08/2017 12/30/2017 01/07/2018 WBC 3.70 - 11.00 k/uL 8.92 RBC 4.20 - 6.00 m/uL 4.91 Hemoglobin 13.0 - 17.0 g/dL 14.1 Hematocrit 39.0 - 51.0 % 44.5 Platelet Count 150 - 400 k/uL 244 Protein, Total 6.3 - 8.0 g/dL 7.6 Albumin 3.9 - 4.9 g/dL 4.0 Calcium 8.5 - 10.2 mg/dL 9.2 Bilirubin, Total 0.2 - 1.3 mg/dL 0.5 Alkaline Phosphatase 36 - 108 U/L 85 AST 14 - 40 U/L 22 Glucose 74 - 99 mg/dL 73 (L) BUN 9 - 24 mg/dL 15 Creatinine 0.73 - 1.22 mg/dL 0.90 Sodium 136 - 144 mmol/L 142 Potassium 3.7 - 5.1 mmol/L 3.9 Chloride 97 - 105 mmol/L 100 CO2 22 - 30 mmol/L 28 Anion Gap 9 - 18 mmol/L 14 ALT 10 - 54 U/L 19 eGFR-All Other Races . >60 NT Pro BNP <450 pg/mL 441 IMPRESSION/RECOMMEND: 1. Hemoptysis due to chronic bronchitis, and Xarelto. CTA chest previously excluded pulmonary embolism, pneumonia, lung mass; and most recent CXR is also clear. - I have discussed the indications, risks, alternatives and personnel involved in Flexible bronchoscopy, and the patient has verbally agreed to proceed. I have sent orders to my staff to schedule 02/11/2018. Informed consent is signed today. - he is advised to hold Xarelto for 5 days prior to the procedure, last dose 02/06/2018. ? 2. Morbid obesity. Body Mass Index (BMI) today is 44.61 at current weight of 329 pounds. Normal BMI is 18.5-25, corresponding to a goal weight range of 135-185 pounds in an individual of this patient's height. The patient is at least 140 pounds overweight. - Weight loss is critical. Consider referral to Weight Management program such as Weight Watchers. Age and concomitant cardiac dysfunction would likely preclude bariatric surgery. Deferred to Primary Care Physician, Bertrand Leon MD. ? This note is shared today with Bertrand Leon MD and Braulio Roblero MD via [employer] medical record. I addressed the questions of the patient, and he expressed understanding and acceptance of my answers. Chavez Huff MD, [facility] [place] [address] P: [phone] F: [phone] [email or web address] Chavez Huff MD 01/27/2018 9:36 AM Addendum IMPRESSION/RECOMMEND: 1. Hemoptysis due to acute/chronic bronchitis, and Xarelto. CTA chest excluded pulmonary embolism, pneumonia, lung mass; and most recent CXR is also clear. - I have discussed the indications, risks, alternatives and personnel involved in Flexible bronchoscopy, and the patient has verbally agreed to proceed. Informed consent is signed today. - Outpatient Flexible bronchoscopy will be scheduled 02/11/2018 at [facility]. Staff (Paulina) will call patient. - Stop taking Xarelto 5 days before, last dose 02/06/2018. ? This note is shared 07/27/2017 with Bertrand Leon MD, Braulio Roblero MD via [employer] medical record. I addressed the questions of the patient, and he expressed understanding and acceptance of my answers. Chavez Huff MD, [facility] [place] [place] [address] P: [phone] F: [phone] [email or web address] Referring Provider: BERTRAND LEON [[id number]] Allergies As of Date: 01/27/2018 Noted Allergy Reaction LISINOPRIL 05/31/2014 14 - Other: See Comments Comments: Metallic taste in mouth. SERTRALINE 05/02/2013 8 - GI Upset Date Reviewed: 01/27/2018 Reviewed by: Chavez Huff - Fully Assessed Primary Visit Diagnosis:Hemoptysis [R04.2] Other Visit Diagnoses:Simple chronic bronchitis (HCC) [J41.0] Adverse effect of anticoagulant, subsequent encounter [T45.515D] Order(s):BRONCHOSCOPY [[id number]] Order #: [id number] FUTURE Prescriptions as of 01/27/2018 Sig: COMPOUNDED PRESCRIPTION Rollator, # one Dx: I50.33, I* AMMONIUM LACTATE 12 % TOPICAL* Apply 1 application to affect* FUROSEMIDE 80 MG TABLET One PO daily in AM FUROSEMIDE 40 MG TABLET One PO daily at dinner OXYBUTYNIN CHLORIDE 5 MG TABL* Take 1 tablet by mouth three * GLIMEPIRIDE 1 MG TABLET Take 1 tablet by mouth daily * METOPROLOL TARTRATE 25 MG TAB* Take 1 tablet by mouth every * KETOCONAZOLE 2 % SHAMPOO Use as a body wash, most spec* ATORVASTATIN 80 MG TABLET Take 1 tablet by mouth once d* TAMSULOSIN 0.4 MG CAPSULE Take 1 capsule by mouth every* METFORMIN 500 MG TABLET Take 1 tablet by mouth three * RANITIDINE 300 MG TABLET Take with evening meal. MAGNESIUM OXIDE 400 MG TABLET Take 1 tablet by mouth once d* COMPOUNDED PRESCRIPTION Please eval and fix any issue* BISACODYL 10 MG RECTAL SUPPOS* 1 Suppository by RECTAL route* ASPIRIN 81 MG TABLET,DELAYED * Take 1 tablet by mouth once d* COMPOUNDED PRESCRIPTION Glucometer high/low test solu* COMPOUNDED PRESCRIPTION Please perform a nocturnal ox* LANCETS Test glucose twice weekly. Dx* BLOOD SUGAR DIAGNOSTIC STRIPS testing twice weekly dx 250* BLOOD-GLUCOSE METER, DRUM-TYP* Test fasting blood sugar 1-2 * BLOOD-GLUCOSE METER KIT 1 Each as needed. One Touch M* BLOOD GLUCOSE CONTROL, NORMAL* Test controls as needed. * COMPOUNDED PRESCRIPTION BIPAP setting: IPAP 22cm wate* RIVAROXABAN 20 MG TABLET Take 1 tablet by mouth daily * Patient not taking: Reported on 01/27/2018 NITROGLYCERIN 0.4 MG SUBLINGU* Take 1 tablet by mouth as nee* POLYETHYLENE GLYCOL 3350 17 G* 17 g up to twice daily as nee* Problem List As Of Date 01/27/2018 Noted Resolved Mild intermittent asthma without complication [* Priority: A MALIGN NEOPL PROSTATE [C61] Priority: B More... Type II or unspecified type diabetes mellitus w* 01/18/2014 Allergic rhinitis, cause unspecified [J30.9] INVALID FOR* Priority: B More... Personal history of colonic polyps [Z86.010] Priority: C More... Lumbago [M54.5] INVALID FOR* Priority: M Bilateral leg edema [R60.0] INVALID FOR* Priority: A Carpal tunnel syndrome, bilateral [G56.03] INVALID FOR* Priority: M More... Essential hypertension, benign [I10] INVALID FOR* Priority: A More... Insomnia, unspecified [G47.00] INVALID FOR* Priority: B More... Benign neoplasm of rectum and anal canal [D12.8*INVALID FOR* Priority: C Diverticulosis of colon (without mention of hem*INVALID FOR* Priority: C Hypertrophy of nasal turbinates [J34.3] INVALID FOR* Priority: C More... 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 More... More... EDMOND (obstructive sleep apnea) [G47.33] INVALID FOR* Priority: B More... Mobitz (type) I (Wenckebach's) atrioventricular*INVALID FOR* Priority: A More... More... Mixed hyperlipidemia [E78.2] INVALID FOR* Priority: A More... DVT prophylaxis [CKB7459] INVALID FOR*07/26/2014 More... More... More... More... More... More... Bradycardia [R00.1] INVALID FOR* Priority: A More... Venous stasis dermatitis of both lower extremit*INVALID FOR* Priority: B Counseling and coordination of care [Z71.89] INVALID FOR*04/12/2015 More... Hypomagnesemia [E83.42] INVALID FOR* Priority: B Diabetic eye exam (HCC) [Z01.00, E11.9] INVALID FOR* Priority: A More... Dry mouth [R68.2] INVALID FOR* Priority: B Noncompliance [Z91.19] INVALID FOR* Gastroesophageal reflux disease without esophag*INVALID FOR* Priority: A Coronary atherosclerosis due to lipid rich plaq*INVALID FOR* Priority: A Morbid obesity due to excess calories (HCC) [E6*INVALID FOR* Priority: B More... Essential tremor [G25.0] INVALID FOR* Priority: B Chronic cough [R05] INVALID FOR* Priority: B Well adult exam [Z00.00] INVALID FOR*01/07/2018 Priority: E More... Controlled type 2 diabetes mellitus with diabet*INVALID FOR* Priority: A Depression [F32.9] INVALID FOR* Priority: A Multiple open wounds of lower leg [S81.809A] INVALID FOR* Priority: D Colon cancer screening [Z12.11] INVALID FOR* Chest pain [R07.9] INVALID FOR* Priority: B More... Second degree heart block [I44.1] INVALID FOR* Priority: A More... Atherosclerosis of coronary artery bypass graft*INVALID FOR* Priority: A More... More... More... More... Hypoxia [R09.02] INVALID FOR* Chronic bilateral low back pain with left-sided*INVALID FOR* Priority: M Bilateral hip pain [M25.551, M25.552] INVALID FOR* Priority: M Paroxysmal atrial fibrillation (HCC) [I48.0] INVALID FOR* Priority: A More... 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 More... 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 More... Current use of proton pump inhibitor [Z79.899] INVALID FOR* More... Ulnar neuropathy at elbow of left upper extremi*INVALID FOR* Priority: M More... Hemoptysis [R04.2] INVALID FOR* Priority: A More... At high risk for falls [Z91.81] INVALID FOR* Memory changes [R41.3] INVALID FOR* Notes for Staff Office will call to schedule surgery Other instructions from your clinician: IMPRESSION/RECOMMEND: 1. Hemoptysis due to acute/chronic bronchitis, and Xarelto. CTA chest excluded pulmonary embolism, pneumonia, lung mass; and most recent CXR is also clear. - I have discussed the indications, risks, alternatives and personnel involved in Flexible bronchoscopy, and the patient has verbally agreed to proceed. Informed consent is signed today. - Outpatient Flexible bronchoscopy will be scheduled 02/11/2018 at [facility]. Staff (Paulina) will call patient. - Stop taking Xarelto 5 days before, last dose 02/06/2018. ? This note is shared 07/27/2017 with Bertrand Leon MD, Braulio Roblero MD via [facility] electronic medical record. I addressed the questions of the patient, and he expressed understanding and acceptance of my answers. Chavez Huff MD, [facility] Respiratory [facility] [address] [place], [place] [id number] P: [phone] F: [phone] [email or web address] Visit Notes: >> Janet Rodriguez LPN [facility] Jan 27, 2018 9:01 AM Status: Signed ROS: General: Generally feels well. Appetite good. Eyes, Ears, nose, throat: denies post nasal drip. denies rhinorrhea. denies purulent nasal discharge. notes epistaxis. denies hoarseness. Vision stable. Cardiac: denies angina, notes edema, denies orthopnea. GI: denies heartburn. denies dysphagia. denies diarrhea. Uro/MANAGER STATISTICS: denies dysuria. denies hesitancy. denies nocturia. Menses: N/A Musculoskeletal: notes arthritis pain. Neuro: denies headache, denies focal weakness. denies tremor. Skin: denies rash. Otherwise negative. Reviewed with patient, confirmed as documented by Janet Rodriguez LPN. TO Follow Up: Office will call to schedule surgery Follow-up and Disposition History Recorded Encounter Status:Closed by CHAVEZ HUFF MD on 01/27/18 HOSP Observed: 01/27/2018 Status: COMPLETED Source: [place] 12:00 AM [facility] REPOSITORY Patient Update (FAMPWS) MAYCO KENDRICK ([id number]) 1940 M NFR Date Time Provider Department 01/27[facility]18 [facility] During your visit today, we recorded the following information about you: Allergies As of Date: 01/27/2018 Noted Allergy Reaction LISINOPRIL 05/31/2014 14 - Other: See Comments Comments: Metallic taste in mouth. SERTRALINE 05/02/2013 8 - GI Upset Date Reviewed: 01/27/2018 Reviewed by: Chavez Huff - Fully Assessed Visit Diagnoses:Gastroesophageal reflux disease without esophagitis [K21.9] Other insomnia [G47.09] Order(s):aluminum AND magnesium hydroxide-simethicone (MAALOX PLUS EXTRA STRENGTH) 400-400-40 mg/5 mL suspensionTake 20 mL by mouth every 6 hours as needed (upset stomach).Disp: 500 mLRfl: 3 sucralfate (CARAFATE) 1 gram tabletTake 1 tablet by mouth three times daily before meals. 30 minutes before meals.Disp: 90 tabletRfl: [address] (PROTONIX) 40 mg tabletTake 1 tablet by mouth daily before breakfast. Take on empty stomach, 1/2 hr before meal. Per GastroenterologyDisp: 30 tabletRfl: 11 traZODone (DESYREL) 50 mg tabletTake 1 tablet by mouth at bedtime as needed (sedation).Disp: 15 tabletRfl: 5 docusate sodium (DOC-Q-LACE) 100 mg capsuleTake 1 capsule by mouth once daily.Disp: 90 capsuleRfl: 1 guaiFENesin (SILTUSSIN SA) 100 mg/5 mL syrupTake 10 mL by mouth three times daily as needed.Disp: Rfl: 0 triamcinolone acetonide (KENALOG) 0.1 % creamApply to itching rash on chest twice daily ONLY when needed; may keep in roomDisp: 454 gRfl: 2 Prescriptions as of 01/27/2018 Sig: ALUMINUM-MAG HYDROXIDE-SIMETH* Take 20 mL by mouth every 6 h* SUCRALFATE 1 GRAM TABLET Take 1 tablet by mouth three * PANTOPRAZOLE 40 MG TABLET,DEL* Take 1 tablet by mouth daily * TRAZODONE 50 MG TABLET Take 1 tablet by mouth at bed* DOCUSATE SODIUM 100 MG CAPSULE Take 1 capsule by mouth once * GUAIFENESIN 100 MG/5 ML ORAL * Take 10 mL by mouth three agnes* TRIAMCINOLONE ACETONIDE 0.1 %* Apply to itching rash on ches* COMPOUNDED PRESCRIPTION Rollator, # one Dx: I50.33, I* AMMONIUM LACTATE 12 % TOPICAL* Apply 1 application to affect* RIVAROXABAN 20 MG TABLET Take 1 tablet by mouth daily * Patient not taking: Reported on 01/27/2018 FUROSEMIDE 80 MG TABLET One PO daily in AM FUROSEMIDE 40 MG TABLET One PO daily at dinner OXYBUTYNIN CHLORIDE 5 MG TABL* Take 1 tablet by mouth three * GLIMEPIRIDE 1 MG TABLET Take 1 tablet by mouth daily * METOPROLOL TARTRATE 25 MG TAB* Take 1 tablet by mouth every * KETOCONAZOLE 2 % SHAMPOO Use as a body wash, most spec* ATORVASTATIN 80 MG TABLET Take 1 tablet by mouth once d* TAMSULOSIN 0.4 MG CAPSULE Take 1 capsule by mouth every* METFORMIN 500 MG TABLET Take 1 tablet by mouth three * NITROGLYCERIN 0.4 MG SUBLINGU* Take 1 tablet by mouth as nee* RANITIDINE 300 MG TABLET Take with evening meal. MAGNESIUM OXIDE 400 MG TABLET Take 1 tablet by mouth once d* COMPOUNDED PRESCRIPTION Please eval and fix any issue* BISACODYL 10 MG RECTAL SUPPOS* 1 Suppository by RECTAL route* POLYETHYLENE GLYCOL 3350 17 G* 17 g up to twice daily as nee* ASPIRIN 81 MG TABLET,DELAYED * Take 1 tablet by mouth once d* COMPOUNDED PRESCRIPTION Glucometer high/low test solu* COMPOUNDED PRESCRIPTION Please perform a nocturnal ox* LANCETS Test glucose twice weekly. Dx* BLOOD SUGAR DIAGNOSTIC STRIPS testing twice weekly dx 250* BLOOD-GLUCOSE METER, DRUM-TYP* Test fasting blood sugar 1-2 * BLOOD-GLUCOSE METER KIT 1 Each as needed. One Touch M* BLOOD GLUCOSE CONTROL, NORMAL* Test controls as needed. * COMPOUNDED PRESCRIPTION BIPAP setting: IPAP 22cm wate* Problem List As Of Date 01/27/2018 Noted Resolved Mild intermittent asthma without complication [* Priority: A MALIGN NEOPL PROSTATE [C61] Priority: B More... Type II or unspecified type diabetes mellitus w* 01/18/2014 Allergic rhinitis, cause unspecified [J30.9] INVALID FOR* Priority: B More... Personal history of colonic polyps [Z86.010] Priority: C More... Lumbago [M54.5] INVALID FOR* Priority: M Bilateral leg edema [R60.0] INVALID FOR* Priority: A Carpal tunnel syndrome, bilateral [G56.03] INVALID FOR* Priority: M More... Essential hypertension, benign [I10] INVALID FOR* Priority: A More... Insomnia, unspecified [G47.00] INVALID FOR* Priority: B More... Benign neoplasm of rectum and anal canal [D12.8*INVALID FOR* Priority: C Diverticulosis of colon (without mention of hem*INVALID FOR* Priority: C Hypertrophy of nasal turbinates [J34.3] INVALID FOR* Priority: C More... 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 More... More... EDMOND (obstructive sleep apnea) [G47.33] INVALID FOR* Priority: B More... Mobitz (type) I (Wenckebach's) atrioventricular*INVALID FOR* Priority: A More... More... Mixed hyperlipidemia [E78.2] INVALID FOR* Priority: A More... DVT prophylaxis [TKY6096] INVALID FOR*07/26/2014 More... More... More... More... More... More... Bradycardia [R00.1] INVALID FOR* Priority: A More... Venous stasis dermatitis of both lower extremit*INVALID FOR* Priority: B Counseling and coordination of care [Z71.89] INVALID FOR*04/12/2015 More... Hypomagnesemia [E83.42] INVALID FOR* Priority: B Diabetic eye exam (HCC) [Z01.00, E11.9] INVALID FOR* Priority: A More... Dry mouth [R68.2] INVALID FOR* Priority: B Noncompliance [Z91.19] INVALID FOR* Gastroesophageal reflux disease without esophag*INVALID FOR* Priority: A Coronary atherosclerosis due to lipid rich plaq*INVALID FOR* Priority: A Morbid obesity due to excess calories (HCC) [E6*INVALID FOR* Priority: B More... Essential tremor [G25.0] INVALID FOR* Priority: B Chronic cough [R05] INVALID FOR* Priority: B Well adult exam [Z00.00] INVALID FOR*01/07/2018 Priority: E More... Controlled type 2 diabetes mellitus with diabet*INVALID FOR* Priority: A Depression [F32.9] INVALID FOR* Priority: A Multiple open wounds of lower leg [S81.809A] INVALID FOR* Priority: D Colon cancer screening [Z12.11] INVALID FOR* Chest pain [R07.9] INVALID FOR* Priority: B More... Second degree heart block [I44.1] INVALID FOR* Priority: A More... Atherosclerosis of coronary artery bypass graft*INVALID FOR* Priority: A More... More... More... More... Hypoxia [R09.02] INVALID FOR* Chronic bilateral low back pain with left-sided*INVALID FOR* Priority: M Bilateral hip pain [M25.551, M25.552] INVALID FOR* Priority: M Paroxysmal atrial fibrillation (HCC) [I48.0] INVALID FOR* Priority: A More... 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 More... 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 More... Current use of proton pump inhibitor [Z79.899] INVALID FOR* More... Ulnar neuropathy at elbow of left upper extremi*INVALID FOR* Priority: M More... Hemoptysis [R04.2] INVALID FOR* Priority: A More... At high risk for falls [Z91.81] INVALID FOR* Memory changes [R41.3] INVALID FOR* Prescriptions ordered this encounter Disp Refills Start End ALUMINUM-MAG HYDROXIDE-SIMETHICONE 4* 500 * 3 01/27/2018 Class: Med Update Route: ORAL Sig: Take 20 mL by mouth every 6 hours as needed (upset stomach). SUCRALFATE 1 GRAM TABLET 90 t* 6 01/27/2018 Class: Med Update Route: ORAL Sig: Take 1 tablet by mouth three times daily before meals. 30 minutes before meals. PANTOPRAZOLE 40 MG TABLET,DELAYED RE* 30 t* 11 01/27/2018 Class: Med Update Route: ORAL Sig: Take 1 tablet by mouth daily before breakfast. Take on empty stomach, 1/2 hr before meal. Per Gastroenterology TRAZODONE 50 MG TABLET 15 t* 5 01/27/2018 Class: Med Update Route: ORAL Sig: Take 1 tablet by mouth at bedtime as needed (sedation). DOCUSATE SODIUM 100 MG CAPSULE 90 c* 1 01/27/2018 Class: Med Update Route: ORAL Sig: Take 1 capsule by mouth once daily. GUAIFENESIN 100 MG/5 ML ORAL LIQUID 0 01/27/2018 Class: Med Update Route: ORAL Sig: Take 10 mL by mouth three times daily as needed. TRIAMCINOLONE ACETONIDE 0.1 % TOPICA* 454 g 2 01/27/2018 Class: Med Update Sig: Apply to itching rash on chest twice daily ONLY when needed; may keep in room Encounter Status:Closed by BERTRAND LEON on 01/27/18 PROGRESS Observed: 01/26/2018 Status: COMPLETED Source: [place] 12:33 PM [facility] REPOSITORY O ID: [id number] Author: Nancy Mccloud Service: (none) Author Type: Physician Budget Officer Type: Progress Notes Filed: 01/26/2018 1:58 PM Note Text: Chief Complaint Patient presents with: Recheck HPI Mayco Kendrick is a 77 year old male who presents here today for MMSE. Patient with some concerns with memory and memory recall. States he had an extensive exam by a local psych-neuro last year. Was told to keep brain healthy by reading and doing puzzles Patient also would like to stop taking carafate and protonix. States that he feels like his gerd symptoms can be controlled by diet alone. Requesting order for nursing care to stop these medications. Past medical history, appointments, medications, allergies reviewed. Previous Medical History PAST MEDICAL HISTORY Diagnosis Date - Abdominal pain 08/11/2014 w some distention. Appears chronic -abdominal ultrasound - ACUTE GASTRITIS W/O HEMORRHAGE 12/21/2006 - Acute on chronic diastolic CHF (congestive heart failure), NYHA class 4 (HCC) 03/08/2014 H/o HFpEF with diastolic dysfunction, ICM 55% EF Presents with CP and SOB Weight gain 30lbs in last 3 months Currently SOB and volume overload, in setting of unstable angina (killip 3) Plan Continue Diuresis As above for possible restrictive CM - ALLERGIC RHINITIS NOS 05/03/2006 - Asthma - ASTHMA UNSPECIFIED - Benign neoplasm of colon - Benign neoplasm of rectum and anal canal - Bilateral leg edema 11/05/2008 - Bradycardia 08/11/2014 Patient with sinus bradycardia with Type 1 Mobitz since 2011 however Pulse dropping to high 30s with dizziness Plan: Place on tele for monitoring EP evaluation for ? Pacemaker with new onset of symptoms 2/2 to relative hypotension vs bradycardia Daily EKGs to evaluate rhythm, still appears to be Mobitz type 1 Keep K and Mag above 4 and 2 respectively - Carpal tunnel syndrome 03/28/2010 - Chest pain 07/26/2014 73 year old male transferred from OSH for Unstable angina, chest pain on a Nitro and heparin Drip. First set of enzymes was negative. No ST-T wave chanes on EKG Mobitz type 1 AV block (chronic) ALVERTO score 5 With associated SOB and Pulmonary edema on CXR (Killip class 3) Found not to have acute plaque rupture ?Restrictive cardiomyopathy Will need LHC (LVEDP) and RHC tomorrow - per Dr. Pepe would like Dr. Randall PLAN NPO at midnight Call Cath Charge in AM to confirm schedule and attending Continue diuresis Additionally: - ASA - Stop plavix - reduce Atorvastatin to 20mg (home dose, last LDL ~55) - Losartan - Chest pain with painful respiration 08/11/2014 Chest heaviness. Unstable angina ? 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 Resume as the bp normalizes. 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 Say Pulmonary 06/2017 and said he would be very high risk for a Bronch due to obesity and known diastolic LV dysfunction. Patient has been back on Xarelto since early November per [facility]. - Hip fracture, right ([facility]) 09/22/2012 Treated medically - History of prostatitis 04/11/2013 - Hyperlipidemia - Hypertension - Hypertrophy of nasal turbinates 07/06/2012 consult with [facility] 06/29/2012 Plan to schedule ablation of inferior turbinates @ [facility]. - Insomnia, unspecified 06/17/2011 OAR[facility] report reviewed October 22, 2011 Matt Tyalor MD - Leg swelling - Lumbago 05/11/2007 - MALIGN NEOPL PROSTATE - Mobitz (type) I (Wenckebach's) atrioventricular block 07/26/[address] Eric Go in 2012. Chronic conduction abnormality. does not need a pacemaker. Here with concern for ACS EKG: mobitz type 1, unchanged from prior, no ST-T wave changes BP stable Plan: Monitor Avoiding BB - Morbid obesity 06/02/2011 07/08/2017: H: 72 in, W: 358 lb, BMI 48.54. 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 01/18/2014 - Type II or unspecified type diabetes mellitus without mention of complication, not stated as uncontrolled - Unspecified sleep apnea CPAP 18 with 1L - Urgency of urination 02/01/2014 Previous Surgical History PAST SURGICAL HISTORY Procedure Laterality Date - CABG, ARTERY-VEIN, TWO 1998 CABG, two grafts - CHOLECYSTECTOMY HX 10/14/2015 gangrenous gallbladder - COLONOSCOP W/ OR W/O BRSH SPEC 01/27/2005 Colonoscopy - COLONOSCOP W/ OR W/O BRSH SPEC 12/21/2006` repeat in -2011 - COLONOSCOP W/ OR W/O BRSH SPEC 05/18/2012 Colonoscopy repeat 5 years - COLONOSCOPY 12/29/2016 repeat 10 yrs - EGD 12/29/2016 - EGD W/O [facility] SPECIMEN W/BX 12/21/06 - EGD W/O OR W/BRUSH/WASH 01/27/2005 EGD - EGD W/O OR W/BRUSH/WASH 11/21/14 EGD - OPEN CORONARY ENDARTERECTOMY 1999 Angioplasty with stent placement - PACEMAKER 2016 - REMOVAL OF TONSILS,<12 Y/O Tonsillectomy - REPAIR RETINAL DETACH, C 10/2010 - REVISE MEDIAN N/CARPAL TUNNEL SURG Right 09/10/2017 Right CTR - REVISE MEDIAN N/CARPAL TUNNEL SURG Left 01/14/2018 Left CTR - REVISE ULNAR NERVE AT ELBOW Right 09/10/2017 Right ulnar nerve decompression - REVISE ULNAR NERVE AT ELBOW Left 01/14/2018 Left unlar nerve decompression - TOTAL HIP REPLACEMENT 2000 Hip replacement, total, right - TOTAL HIP REPLACEMENT 2002 Hip replacement, total, left Family History FAMILY HISTORY Problem Relation Age of Onset - Heart Father - Cancer Mother Lung - Heart Paternal Grandfather - Heart Brother Patient Allergies ALLERGIES Allergen Reactions - Lisinopril Other: See Comments Metallic taste in mouth. - Sertraline GI Upset Current Medications Current Outpatient Prescriptions on File Prior to Visit: COMPOUNDED PRESCRIPTION Rollator, # one Dx: I50.33, I25.700, I48.0, J45.20, E66.01, M54.42, M25.551, Z91.81 ammonium lactate (LAC-HYDRIN) 12 % cream Apply 1 application to affected area twice daily as needed. rivaroxaban (XARELTO) 20 mg tablet Take 1 tablet by mouth daily with dinner. sucralfate (CARAFATE) 1 gram tablet Take 1 tablet by mouth three times daily before meals. 30 minutes before meals. pantoprazole DR (PROTONIX) 40 mg tablet Take 1 tablet by mouth daily before breakfast. Take on empty stomach, 1/2 hr before meal. Per Gastroenterology furosemide (LASIX) 80 mg tablet One PO daily in AM furosemide (LASIX) 40 mg tablet One PO daily at dinner oxybutynin (DITROPAN) 5 mg tablet Take 1 tablet by mouth three times daily. glimepiride (AMARYL) 1 mg tablet Take 1 tablet by mouth daily with breakfast. metoprolol tartrate, short acting, (LOPRESSOR) 25 mg tablet Take 1 tablet by mouth every 12 hours. ketoconazole (NIZORAL) 2 % shampoo Use as a body wash, most specifically the chest, daily for itching and flaking; may keep in own shower atorvastatin (LIPITOR) 80 mg tablet Take 1 tablet by mouth once daily. tamsulosin ER (FLOMAX) 0.4 mg cp24 Take 1 capsule by mouth every evening. for prostate metFORMIN (GLUCOPHAGE) 500 mg tablet Take 1 tablet by mouth three times daily with meals. nitroglycerin sublingual (NITROSTAT) 0.4 mg SL tablet Take 1 tablet by mouth as needed. for chest pain; dissolve on tongue. If no pain relief call 911. Ranitidine HCl 300 mg tablet Take with evening meal. magnesium oxide (MAG-OX) 400 mg tablet Take 1 tablet by mouth once daily. COMPOUNDED PRESCRIPTION Please eval and fix any issues with walker.Dx: I50.33, I25.10, E66.01, M54.42, M25.551 bisacodyl (DULCOLAX) 10 mg supp 1 Suppository by RECTAL route once daily as needed (for constipation). polyethylene glycol 3350 (MIRALAX, GLYCOLAX) 17 gram/dose powder 17 g up to twice daily as needed prn constipation aspirin, enteric coated (ADULT LOW DOSE ASPIRIN) 81 mg EC tablet Take 1 tablet by mouth once daily. COMPOUNDED PRESCRIPTION Glucometer high/low test solution for accucheck. DX: DM COMPOUNDED PRESCRIPTION Please perform a nocturnal oximetry on room air on BiPAP. Diagnosis: HypoxiaPlease fax results to [phone] Attn: Glendy Lancets (ACCU-CHEK FASTCLIX) lancets Test glucose twice weekly. Dx: 250.00. Insulin Use: no blood sugar diagnostic test strip testing twice weekly dx 250.00 insulin no Blood-Glucose Meter, Drum-type (ACCU-CHEK COMPACT PLUS CARE) kit Test fasting blood sugar 1-2 times a week and 2 hrs post meal 1- 2 times a week. Blood-Glucose Meter (ONETOUCH ULTRA 2) monitoring kit 1 Each as needed. One Touch Meter Kit Diagnosis: Diabetes Mellitus Blood Glucose Control, Normal (OT ULTRA/FASTTRACK CONTROL) soln Test controls as needed. COMPOUNDED PRESCRIPTION BIPAP setting: IPAP 22cm water with heated humidification EPAP setting of 16cm with supplemental oxygen bleed in at 2lt per minute. Mask (per patient preference) and supplies for lifetime. Please add chin strap DX EDMOND 327.23 No current facility-administered medications on file prior to visit. 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 Alcohol use: Yes 31.5 oz/week Cans of Beer (12oz): 7, Mixed Drinks: 14 per week Comment: 2/beer/mixed drink daily-states no ETOH since 09/2017 Drug use: No Sexual activity: No Social History Narrative OARRS report reviewed October 22, 2011 Matt Taylor MD Review of Symptoms REVIEW OF SYSTEMS See HPI EXAM: BP 124/64 (BP Site: Left Arm, BP Position: Sitting, BP Cuff Size: Large Adult) Pulse (!) 52 Resp 16 Wt (!) 149.7 kg (330 lb) BMI 44.76 kg/m? General Appearance: Well appearing, alert, in no acute distress, well-hydrated, well nourished.. MINI-MENTAL STATE EXAMINATION (MMSE) Make the patient comfortable and establish rapport. Ask questions in the order listed. Total possible score is 30. ORIENTATION 1. What is the (year) (season) (date) (day) (month)? Max score=5 Patient's score=5 2. Where are we? (state) (county) (town or city) (hospital) (floor)? Max score=5 Patient's score=5 REGISTRATION Ask the patient if you may test his/her memory. Then say the names of 3 unrelated objects, clearly and slowly, about one second for each (eg, apple, table, gavin). After you have said all 3, ask him/her to repeat them. This first repetition determines the score(0-3), but keep saying them until he/she can repeat all 3, up to 6 trials. Max score=3 Patient's score=3 ATTENTION AND CALCULATION Ask the patient to begin with 100 and count backwards by 7. Stop after 5 subtractions (93, 86, 79, 72, 65). Score the total number of correct answers. If the patient cannot or will not perform the serial 7s task, ask him/her to spell the word WORLD backwards. The score is the number of letters in the correct order (eg, DLROW=5; DLRW=4; DLORW, DLW=3; OW=2; DRLWO=1). Max score=5 Patient's score=5 RECALL Ask the patient to recall the 3 items repeated above (eg, apple, table, gavin). Max score=3 Patient's score=3 LANGUAGE Naming: Show the patient a wristwatch and ask him/her what it is. Repeat for pencil. Max score=2 Patient's score=2 Repetition: Ask the patient to repeat the phrase No ifs, ands, or buts: after you. Max score=1 Patient's score=1 3-Stage Command: Give the patient a piece of blank paper and ask him/her to take a piece of paper in your right hand, fold it in half, put it on the floor. Score 1 point for each part correctly executed. Max score=3 Patient's score=3 Reading: On a blank piece of paper, print the sentence CLOSE YOUR EYES in letters large enough for the patient to see clearly. Ask him/her to read it and do what it says. Score 1 point only if he/she actually closes his/her eyes. Max score=1 Patient's score=1 Writing: Give the patient a blank piece of paper and ask him/her to write a sentence. Do not dictate a sentence; it is to be written spontaneously. It must contain a subject and verb and be sensible. Correct grammar and punctuation are not necessary. Max score=1 Patient's score=1 Copying: Ask the patient to copy the figure of intersecting pentagons exactly as it is. All 10 angles must be present and 2 must intersect to form a 4-sided figure to score 1 point. Tremor and rotation are ignored. Max score=1 Patient's score=0 MAXIMUM TOTAL SCORE = 30 TOTAL SCORE = 29/30 Suggested guideline for determining the severity of cognitive impairment: Mild: MMSE>21 Moderate: MMSE 10-20 Severe: MMSE<9 Expected decline in MMSE scores in untreated mild to moderate Alzheimer's patient is 2 to 4 points per year. *Adapted from Folstein et al.1 and Kenny and Folstein2. (c) 1974, 1997 [employer] Used with permission. References: 1. Folstein MF, Folstein SE, Analilia HI. Mini- Mental State: a practical method for grading the cognitive state of patients for the clinician. J Psychiatr Res. 1975; 12:189-198. 2. JR Kenny, Folfaustino MF, Mini-Mental State Examination (MMSE). Psychopharm Bull. 1988;24:689-692. 3. Wilbur JT, Boone FJ, Oleg RD, Ian A, Lauren F. Neuropsychological function in Alzheimer's disease: pattern of impairment and rates of progression. Arch Neurol. 1988;45:263-268. 4. Sara JA, Mary B, Faheem S-P, Yessica MEEK. Predictors of cognitive and functional progression in patients with probable Alzheimer's disease. Neurology. 1992;42:0718-5611. . Health Maintenance List DTAP,TDAP,TD(1 - Tdap) due on 07/31/2006 HBA1C due on 01/21/2018 DILATED RETINAL EXAM due on 04/08/2018 LDL due on 07/23/2018 DIABETIC FOOT EXAM due on 09/16/2018 COLORECTAL CANCER SCREENING,SEE MODIFIER due on 12/29/2026 ADULT PREVNAR-13 Completed INFLUENZA Completed PNEUMOVAX AGE 65 AND OVER WITH 5YR LOOKBACK Completed Data reviewed n/a ASSESSMENT/PLAN: 1. Memory changes - ICD9: 780.93, ICD10: R41.3 MMSE wnl today. Patient will give us name of the doctor he saw last year and we will refer him back to her. 2. Gastroesophageal reflux disease without esophagitis - ICD9: 530.81, ICD10: K21.9 - Okay to trial being of the protonix and carafate. - He will let us know if needing to get back on the medications. MELLY MCCLOUD PA-C CNOV Observed: 01/26/2018 Status: COMPLETED Source: [place] 12:20 PM [facility] REPOS[facility] Office Visit (FAMPWS) MAYCO KENDRICK ([id number]) 1940 M NFR Date Time Provider Department 01/26/18 12:20 PM RAYMOND MCCLOUD) FAMPWS During your visit today, we recorded the following information about you: Pulse Respiration Blood pressure Weight 52/minute 16/minute 124/64 149.7 kg MELLY MCCLOUD PA-C 01/26/2018 1:58 PM Signed Chief Complaint Patient presents with: Recheck HPI Mayco Kendrick is a 77 year old male who presents here today for MMSE. Patient with some concerns with memory and memory recall. States he had an extensive exam by a local psych-neuro last year. Was told to keep brain healthy by reading and doing puzzles Patient also would like to stop taking carafate and protonix. States that he feels like his gerd symptoms can be controlled by diet alone. Requesting order for nursing care to stop these medications. Past medical history, appointments, medications, allergies reviewed. Previous Medical History PAST MEDICAL HISTORY Diagnosis Date - Abdominal pain 08/11/2014 w some distention. Appears chronic -abdominal ultrasound - ACUTE GASTRITIS W/O HEMORRHAGE 12/21/2006 - Acute on chronic diastolic CHF (congestive heart failure), NYHA class 4 (HCC) 03/08/2014 H/o HFpEF with diastolic dysfunction, ICM 55% EF Presents with CP and SOB Weight gain 30lbs in last 3 months Currently SOB and volume overload, in setting of unstable angina (killip 3) Plan Continue Diuresis As above for possible restrictive CM - ALLERGIC RHINITIS NOS 05/03/2006 - Asthma - ASTHMA UNSPECIFIED - Benign neoplasm of colon - Benign neoplasm of rectum and anal canal - Bilateral leg edema 11/05/2008 - Bradycardia 08/11/2014 Patient with sinus bradycardia with Type 1 Mobitz since 2011 however Pulse dropping to high 30s with dizziness Plan: Place on tele for monitoring EP evaluation for ? Pacemaker with new onset of symptoms 2/2 to relative hypotension vs bradycardia Daily EKGs to evaluate rhythm, still appears to be Mobitz type 1 Keep K and Mag above 4 and 2 respectively - Carpal tunnel syndrome 03/28/2010 - Chest pain 07/26/2014 73 year old male transferred from OSH for Unstable angina, chest pain on a Nitro and heparin Drip. First set of enzymes was negative. No ST-T wave chanes on EKG Mobitz type 1 AV block (chronic) ALVERTO score 5 With associated SOB and Pulmonary edema on CXR (Killip class 3) Found not to have acute plaque rupture ?Restrictive cardiomyopathy Will need LHC (LVEDP) and RHC tomorrow - per Dr. Pepe would like Dr. Randall PLAN NPO at midnight Call Cath Charge in AM to confirm schedule and attending Continue diuresis Additionally: - ASA - Stop plavix - reduce Atorvastatin to 20mg (home dose, last LDL ~55) - Losartan - Chest pain with painful respiration 08/11/2014 Chest heaviness. Unstable angina ? 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 Resume as the bp normalizes. 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 Say Pulmonary 06/2017 and said he would be very high risk for a Bronch due to obesity and known diastolic LV dysfunction. Patient has been back on Xarelto since early November per [facility]. - Hip fracture, right ([facility]) 09/22/2012 Treated medically - History of prostatitis 04/11/2013 - Hyperlipidemia - Hypertension - Hypertrophy of nasal turbinates 07/06/2012 consult with [facility] 06/29/2012 Plan to schedule ablation of inferior turbinates @ [facility]. - Insomnia, unspecified 06/17/2011 O[facility] report reviewed October 22, 2011 Matt Taylor MD - Leg swelling - Lumbago 05/11/2007 - MALIGN NEOPL PROSTATE - Mobitz (type) I (Wenckebach's) atrioventricular block 07/26/[address] Eric Go in 2012. Chronic conduction abnormality. does not need a pacemaker. Here with concern for ACS EKG: mobitz type 1, unchanged from prior, no ST-T wave changes BP stable Plan: Monitor Avoiding BB - Morbid obesity 06/02/2011 07/08/2017: H: 72 in, W: 358 lb, BMI 48.54. - Morbid obesity due to excess calories ([facility]) 09/25/2015 - Nonspecific elevation of levels of transaminase or lactic acid dehydrogenase (LDH) - EDMOND (obstructive sleep apnea) 07/26/2014 On BIPAP at night - Other and unspecified disc disorder of unspecified region degenerative disc disorder - Paroxysmal atrial fibrillation (HCC) 04/07/2017 - PERS HX COLONIC POLYPS Colon polyps - Prostate cancer (HCC) - Reflux esophagitis - Substance abuse - Type 2 diabetes mellitus with proteinuria or albuminuria 01/18/2014 - Type II or unspecified type diabetes mellitus without mention of complication, not stated as uncontrolled - Unspecified sleep apnea CPAP 18 with 1L - Urgency of urination 02/01/2014 Previous Surgical History PAST SURGICAL HISTORY Procedure Laterality Date - CABG, ARTERY-VEIN, TWO 1998 CABG, two grafts - CHOLECYSTECTOMY HX 10/14/2015 gangrenous gallbladder - COLONOSCOP W/ OR W/O BRSH SPEC 01/27/2005 Colonoscopy - COLONOSCOP W/ OR W/O BRSH SPEC 12/21/2006` repeat in -2011 - COLONOSCOP W/ OR W/O BRSH SPEC 05/18/2012 Colonoscopy repeat 5 years - COLONOSCOPY 12/29/2016 repeat 10 yrs - EGD 12/29/2016 - EGD W/O BRSH SPECIMEN W/BX 12/21/06 - EGD W/O OR W/BRUSH/WASH 01/27/2005 EGD - EGD W/O OR W/BRUSH/WASH 11/21/14 EGD - OPEN CORONARY ENDARTERECTOMY 1999 Angioplasty with stent placement - PACEMAKER 2016 - REMOVAL OF TONSILS,<12 Y/O Tonsillectomy - REPAIR RETINAL DETACH, C 10/2010 - REVISE MEDIAN N/CARPAL TUNNEL SURG Right 09/10/2017 Right CTR - REVISE MEDIAN N/CARPAL TUNNEL SURG Left 01/14/2018 Left CTR - REVISE ULNAR NERVE AT ELBOW Right 09/10/2017 Right ulnar nerve decompression - REVISE ULNAR NERVE AT ELBOW Left 01/14/2018 Left unlar nerve decompression - TOTAL HIP REPLACEMENT 2000 Hip replacement, total, right - TOTAL HIP REPLACEMENT 2002 Hip replacement, total, left Family History FAMILY HISTORY Problem Relation Age of Onset - Heart Father - Cancer Mother Lung - Heart Paternal Grandfather - Heart Brother Patient Allergies ALLERGIES Allergen Reactions - Lisinopril Other: See Comments Metallic taste in mouth. - Sertraline GI Upset Current Medications Current Outpatient Prescriptions on File Prior to Visit: COMPOUNDED PRESCRIPTION Rollator, # one Dx: I50.33, I25.700, I48.0, J45.20, E66.01, M54.42, M25.551, Z91.81 ammonium lactate (LAC-HYDRIN) 12 % cream Apply 1 application to affected area twice daily as needed. rivaroxaban (XARELTO) 20 mg tablet Take 1 tablet by mouth daily with dinner. sucralfate (CARAFATE) 1 gram tablet Take 1 tablet by mouth three times daily before meals. 30 minutes before meals. pantoprazole DR (PROTONIX) 40 mg tablet Take 1 tablet by mouth daily before breakfast. Take on empty stomach, 1/2 hr before meal. Per Gastroenterology furosemide (LASIX) 80 mg tablet One PO daily in AM furosemide (LASIX) 40 mg tablet One PO daily at dinner oxybutynin (DITROPAN) 5 mg tablet Take 1 tablet by mouth three times daily. glimepiride (AMARYL) 1 mg tablet Take 1 tablet by mouth daily with breakfast. metoprolol tartrate, short acting, (LOPRESSOR) 25 mg tablet Take 1 tablet by mouth every 12 hours. ketoconazole (NIZORAL) 2 % shampoo Use as a body wash, most specifically the chest, daily for itching and flaking; may keep in own shower atorvastatin (LIPITOR) 80 mg tablet Take 1 tablet by mouth once daily. tamsulosin ER (FLOMAX) 0.4 mg cp24 Take 1 capsule by mouth every evening. for prostate metFORMIN (GLUCOPHAGE) 500 mg tablet Take 1 tablet by mouth three times daily with meals. nitroglycerin sublingual (NITROSTAT) 0.4 mg SL tablet Take 1 tablet by mouth as needed. for chest pain; dissolve on tongue. If no pain relief call 911. Ranitidine HCl 300 mg tablet Take with evening meal. magnesium oxide (MAG-OX) 400 mg tablet Take 1 tablet by mouth once daily. COMPOUNDED PRESCRIPTION Please eval and fix any issues with walker.Dx: I50.33, I25.10, E66.01, M54.42, M25.551 bisacodyl (DULCOLAX) 10 mg supp 1 Suppository by RECTAL route once daily as needed (for constipation). polyethylene glycol 3350 (MIRALAX, GLYCOLAX) 17 gram/dose powder 17 g up to twice daily as needed prn constipation aspirin, enteric coated (ADULT LOW DOSE ASPIRIN) 81 mg EC tablet Take 1 tablet by mouth once daily. COMPOUNDED PRESCRIPTION Glucometer high/low test solution for accucheck. DX: DM COMPOUNDED PRESCRIPTION Please perform a nocturnal oximetry on room air on BiPAP. Diagnosis: HypoxiaPlease fax results to [phone] Attn: Glendy Lancets (ACCU-CHEK FASTCLIX) lancets Test glucose twice weekly. Dx: 250.00. Insulin Use: no blood sugar diagnostic test strip testing twice weekly dx 250.00 insulin no Blood-Glucose Meter, Drum-type (ACCU-CHEK COMPACT PLUS CARE) kit Test fasting blood sugar 1-2 times a week and 2 hrs post meal 1-2 times a week. Blood-Glucose Meter (ONETOUCH ULTRA 2) monitoring kit 1 Each as needed. One Touch Meter Kit Diagnosis: Diabetes Mellitus Blood Glucose Control, Normal (OT ULTRA/FASTTRACK CONTROL) soln Test controls as needed. COMPOUNDED PRESCRIPTION BIPAP setting: IPAP 22cm water with heated humidification EPAP setting of 16cm with supplemental oxygen bleed in at 2lt per minute. Mask (per patient preference) and supplies for lifetime. Please add chin strap DX EDMOND 327.23 No current facility-administered medications on file prior to visit. 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 Alcohol use: Yes 31.5 oz/week Cans of Beer (12oz): 7, Mixed Drinks: 14 per week Comment: 2/beer/mixed drink daily-states no ETOH since 09/2017 Drug use: No Sexual activity: No Social History Narrative OARRS report reviewed October 22, 2011 Matt Taylor MD Review of Symptoms REVIEW OF SYSTEMS See HPI EXAM: BP 124/64 (BP Site: Left Arm, BP Position: Sitting, BP Cuff Size: Large Adult) Pulse (!) 52 Resp 16 Wt (!) 149.7 kg (330 lb) BMI 44.76 kg/m? General Appearance: Well appearing, alert, in no acute distress, well-hydrated, well nourished.. MINI-MENTAL STATE EXAMINATION (MMSE) Make the patient comfortable and establish rapport. Ask questions in the order listed. Total possible score is 30. ORIENTATION 1. What is the (year) (season) (date) (day) (month)? Max score=5 Patient's score=5 2. Where are we? (state) (county) (town or city) (hospital) (floor)? Max score=5 Patient's score=5 REGISTRATION Ask the patient if you may test his/her memory. Then say the names of 3 unrelated objects, clearly and slowly, about one second for each (eg, apple, table, gavin). After you have said all 3, ask him/her to repeat them. This first repetition determines the score(0-3), but keep saying them until he/she can repeat all 3, up to 6 trials. Max score=3 Patient's score=3 ATTENTION AND CALCULATION Ask the patient to begin with 100 and count backwards by 7. Stop after 5 subtractions (93, 86, 79, 72, 65). Score the total number of correct answers. If the patient cannot or will not perform the serial 7s task, ask him/her to spell the word WORLD backwards. The score is the number of letters in the correct order (eg, DLROW=5; DLRW=4; DLORW, DLW=3; OW=2; DRLWO=1). Max score=5 Patient's score=5 RECALL Ask the patient to recall the 3 items repeated above (eg, apple, table, gavin). Max score=3 Patient's score=3 LANGUAGE Naming: Show the patient a wristwatch and ask him/her what it is. Repeat for pencil. Max score=2 Patient's score=2 Repetition: Ask the patient to repeat the phrase No ifs, ands, or buts: after you. Max score=1 Patient's score=1 3-Stage Command: Give the patient a piece of blank paper and ask him/her to take a piece of paper in your right hand, fold it in half, put it on the floor. Score 1 point for each part correctly executed. Max score=3 Patient's score=3 Reading: On a blank piece of paper, print the sentence CLOSE YOUR EYES in letters large enough for the patient to see clearly. Ask him/her to read it and do what it says. Score 1 point only if he/she actually closes his/her eyes. Max score=1 Patient's score=1 Writing: Give the patient a blank piece of paper and ask him/her to write a sentence. Do not dictate a sentence; it is to be written spontaneously. It must contain a subject and verb and be sensible. Correct grammar and punctuation are not necessary. Max score=1 Patient's score=1 Copying: Ask the patient to copy the figure of intersecting pentagons exactly as it is. All 10 angles must be present and 2 must intersect to form a 4-sided figure to score 1 point. Tremor and rotation are ignored. Max score=1 Patient's score=0 MAXIMUM TOTAL SCORE = 30 TOTAL SCORE = 29/30 Suggested guideline for determining the severity of cognitive impairment: Mild: MMSE>21 Moderate: MMSE 10-20 Severe: MMSE<9 Expected decline in MMSE scores in untreated mild to moderate Alzheimer's patient is 2 to 4 points per year. *Adapted from Folstein et al.1 and Kenny and Kaushik2. (c) 1974, 1997 [employer] Used with permission. References: 1. Folstein MF, Folstein SE, Analilia HI. Mini- Mental State: a practical method for grading the cognitive state of patients for the clinician. J Psychiatr Res. 1975; 12:189-198. 2. JR Kenny, Kaushik MF, Mini-Mental State Examination (MMSE). Psychopharm Bull. 1988;24:689-692. 3. Wilbur JT, Boone FJ, Oleg RD, Ian A, Lauren F. Neuropsychological function in Alzheimer's disease: pattern of impairment and rates of progression. Arch Neurol. 1988;45:263-268. 4. Sara JA, Mary B, Faheem S- P, Yessica MEEK. Predictors of cognitive and functional progression in patients with probable Alzheimer's disease. Neurology. 1992;42:1134-4247. . Health Maintenance List DTAP,TDAP,TD(1 - Tdap) due on 07/31/2006 HBA1C due on 01/21/2018 DILATED RETINAL EXAM due on 04/08/2018 LDL due on 07/23/2018 DIABETIC FOOT EXAM due on 09/16/2018 COLORECTAL CANCER SCREENING,SEE MODIFIER due on 12/29/2026 ADULT PREVNAR-13 Completed INFLUENZA Completed PNEUMOVAX AGE 65 AND OVER WITH 5YR LOOKBACK Completed Data reviewed n/a ASSESSMENT/PLAN: 1. Memory changes - ICD9: 780.93, ICD10: R41.3 MMSE wnl today. Patient will give us name of the doctor he saw last year and we will refer him back to her. 2. Gastroesophageal reflux disease without esophagitis - ICD9: 530.81, ICD10: K21.9 - Okay to trial being of the protonix and carafate. - He will let us know if needing to get back on the medications. LORI WILSON PA-C 01/26/2018 1:00 PM Signed Please call back with name of the doctor you saw last year for your memory and we will refer you back to her. Referring Provider: BERTRAND LEON [[id number]] Allergies As of Date: 01/26/2018 Noted Allergy Reaction LISINOPRIL 05/31/2014 14 - Other: See Comments Comments: Metallic taste in mouth. SERTRALINE 05/02/2013 8 - GI Upset Date Reviewed: 01/26/2018 Reviewed by: Siomara Bo Ma - Fully Assessed Reason for Visit: Recheck [92] Primary Visit Diagnosis:Memory changes [R41.3] Other Visit Diagnosis:Gastroesophageal reflux disease without esophagitis [K21.9] Prescriptions as of 01/26/2018 Sig: COMPOUNDED PRESCRIPTION Rollator, # one Dx: I50.33, I* AMMONIUM LACTATE 12 % TOPICAL* Apply 1 application to affect* RIVAROXABAN 20 MG TABLET Take 1 tablet by mouth daily * FUROSEMIDE 80 MG TABLET One PO daily in AM FUROSEMIDE 40 MG TABLET One PO daily at dinner OXYBUTYNIN CHLORIDE 5 MG TABL* Take 1 tablet by mouth three * GLIMEPIRIDE 1 MG TABLET Take 1 tablet by mouth daily * METOPROLOL TARTRATE 25 MG TAB* Take 1 tablet by mouth every * KETOCONAZOLE 2 % SHAMPOO Use as a body wash, most spec* ATORVASTATIN 80 MG TABLET Take 1 tablet by mouth once d* TAMSULOSIN 0.4 MG CAPSULE Take 1 capsule by mouth every* METFORMIN 500 MG TABLET Take 1 tablet by mouth three * NITROGLYCERIN 0.4 MG SUBLINGU* Take 1 tablet by mouth as nee* RANITIDINE 300 MG TABLET Take with evening meal. MAGNESIUM OXIDE 400 MG TABLET Take 1 tablet by mouth once d* COMPOUNDED PRESCRIPTION Please eval and fix any issue* BISACODYL 10 MG RECTAL SUPPOS* 1 Suppository by RECTAL route* POLYETHYLENE GLYCOL 3350 17 G* 17 g up to twice daily as nee* ASPIRIN 81 MG TABLET,DELAYED * Take 1 tablet by mouth once d* COMPOUNDED PRESCRIPTION Glucometer high/low test solu* COMPOUNDED PRESCRIPTION Please perform a nocturnal ox* LANCETS Test glucose twice weekly. Dx* BLOOD SUGAR DIAGNOSTIC STRIPS testing twice weekly dx 250* BLOOD-GLUCOSE METER, DRUM-TYP* Test fasting blood sugar 1-2 * BLOOD-GLUCOSE METER KIT 1 Each as needed. One Touch M* BLOOD GLUCOSE CONTROL, NORMAL* Test controls as needed. * COMPOUNDED PRESCRIPTION BIPAP setting: IPAP 22cm wate* Problem List As Of Date 01/26/2018 Noted Resolved Mild intermittent asthma without complication [* Priority: A MALIGN NEOPL PROSTATE [C61] Priority: B More... Type II or unspecified type diabetes mellitus w* 01/18/2014 Allergic rhinitis, cause unspecified [J30.9] INVALID FOR* Priority: B More... Personal history of colonic polyps [Z86.010] Priority: C More... Lumbago [M54.5] INVALID FOR* Priority: M Bilateral leg edema [R60.0] INVALID FOR* Priority: A Carpal tunnel syndrome, bilateral [G56.03] INVALID FOR* Priority: M More... Essential hypertension, benign [I10] INVALID FOR* Priority: A More... Insomnia, unspecified [G47.00] INVALID FOR* Priority: B More... Benign neoplasm of rectum and anal canal [D12.8*INVALID FOR* Priority: C Diverticulosis of colon (without mention of hem*INVALID FOR* Priority: C Hypertrophy of nasal turbinates [J34.3] INVALID FOR* Priority: C More... 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 More... More... EDMOND (obstructive sleep apnea) [G47.33] INVALID FOR* Priority: B More... Mobitz (type) I (Wenckebach's) atrioventricular*INVALID FOR* Priority: A More... More... Mixed hyperlipidemia [E78.2] INVALID FOR* Priority: A More... DVT prophylaxis [[id number]] INVALID FOR*07/26/2014 More... More... More... More... More... More... Bradycardia [R00.1] INVALID FOR* Priority: A More... Venous stasis dermatitis of both lower extremit*INVALID FOR* Priority: B Counseling and coordination of care [Z71.89] INVALID FOR*04/12/2015 More... Hypomagnesemia [E83.42] INVALID FOR* Priority: B Diabetic eye exam (HCC) [Z01.00, E11.9] INVALID FOR* Priority: A More... Dry mouth [R68.2] INVALID FOR* Priority: B Noncompliance [Z91.19] INVALID FOR* Gastroesophageal reflux disease without esophag*INVALID FOR* Priority: A Coronary atherosclerosis due to lipid rich plaq*INVALID FOR* Priority: A Morbid obesity due to excess calories (HCC) [E6*INVALID FOR* Priority: B More... Essential tremor [G25.0] INVALID FOR* Priority: B Chronic cough [R05] INVALID FOR* Priority: B Well adult exam [Z00.00] INVALID FOR*01/07/2018 Priority: E More... Controlled type 2 diabetes mellitus with diabet*INVALID FOR* Priority: A Depression [F32.9] INVALID FOR* Priority: A Multiple open wounds of lower leg [S81.809A] INVALID FOR* Priority: D Colon cancer screening [Z12.11] INVALID FOR* Chest pain [R07.9] INVALID FOR* Priority: B More... Second degree heart block [I44.1] INVALID FOR* Priority: A More... Atherosclerosis of coronary artery bypass graft*INVALID FOR* Priority: A More... More... More... More... Hypoxia [R09.02] INVALID FOR* Chronic bilateral low back pain with left-sided*INVALID FOR* Priority: M Bilateral hip pain [M25.551, M25.552] INVALID FOR* Priority: M Paroxysmal atrial fibrillation (HCC) [I48.0] INVALID FOR* Priority: A More... 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 More... 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 More... Current use of proton pump inhibitor [Z79.899] INVALID FOR* More... Ulnar neuropathy at elbow of left upper extremi*INVALID FOR* Priority: M More... Hemoptysis [R04.2] INVALID FOR* Priority: A More... At high risk for falls [Z91.81] INVALID FOR* Memory changes [R41.3] INVALID FOR* Other instructions from your clinician: Please call back with name of the doctor you saw last year for your memory and we will refer you back to her. Medications Discontinued During This Encounter pantoprazole DR (PROTONIX) 40 mg tab* 30 t* 11 10/25/2017 01/26/2018 Route: ORAL Sig: Take 1 tablet by mouth daily before breakfast. Take on empty stomach, 1/2 hr before meal. Per Gastroenterology Disc: Reason for discontinue is not on file. sucralfate (CARAFATE) 1 gram tablet 90 t* 6 11/11/2017 01/26/2018 Route: ORAL Sig: Take 1 tablet by mouth three times daily before meals. 30 minutes before meals. Disc: Reason for discontinue is not on file. Encounter Status:Closed by MELLY BECKER on 01/26/18 CNCNPATED Observed: 01/24/2018 Status: COMPLETED Source: [place] 1:15 PM [facility] REPOS[facility] Education (NUTRWS) MAYCO KENDRICK ([id number]) 1940 M NFR Date Time Provider Department 01/24/18 1:15 PM REBECCA SANDERS) JOSE Reason for Visit: Patient Education [91] Reassessment [674] Progress Notes: Rebecca Sanders MS RD LD 01/26/2018 1:56 PM Signed Nutritional Therapy: Re-Assessment PAIN: Is the patient having any pain that is interfering with oral / enteral intake? No 0 on a scale of 0 to 10 PROGRESS: Nutrition Intervention (date of last encounter 11/29/17): 1. All beverages calorie free and sugar free, no juice 2. Use hunger fullness scale, focus on smaller portions, stop at a 6-7. 3.increase exercise to at least 20 min most days, try for activity 5 min every hour. 4. Continue to make best choice possible for meals out of what is served. CHANGES IN TREATMENT: Patient met goal(s): Partially Actions to implement interventions: Less activity with recent carpal tunnel surgery Just finished water aerobics Diet History: This morning 140 Breakfast - breakfast burrito; milk, water Snack - celery Lunch - will have [employer]; Snack - veggies and fruit Dinner - chili dog and veg, fruit Snack - veggies and fruits, occ couple eggs on toast Beverages - unsweet iced Tea, water and milk CLINICAL IMPRESSIONS: fair REVISIONS IN DIAGNOSIS: Diagnosis: has not changed. Allergies: Lisinopril; Sertraline Medications: Current Outpatient Prescriptions: COMPOUNDED PRESCRIPTION Rollator, # one Dx: I50.33, I25.700, I48.0, J45.20, E66.01, M54.42, M25.551, Z91.81 Disp: 1 Device Rfl: 0 ammonium lactate (LAC-HYDRIN) 12 % cream Apply 1 application to affected area twice daily as needed. Disp: 385 g Rfl: 11 rivaroxaban (XARELTO) 20 mg tablet Take 1 tablet by mouth daily with dinner. Disp: Rfl: sucralfate (CARAFATE) 1 gram tablet Take 1 tablet by mouth three times daily before meals. 30 minutes before meals. Disp: 90 tablet Rfl: [address] (PROTONIX) 40 mg tablet Take 1 tablet by mouth daily before breakfast. Take on empty stomach, 1/2 hr before meal. Per Gastroenterology Disp: 30 tablet Rfl: 11 furosemide (LASIX) 80 mg tablet One PO daily in AM Disp: 90 tablet Rfl: 3 furosemide (LASIX) 40 mg tablet One PO daily at dinner Disp: 90 tablet Rfl: 3 oxybutynin (DITROPAN) 5 mg tablet Take 1 tablet by mouth three times daily. Disp: 90 tablet Rfl: 11 glimepiride (AMARYL) 1 mg tablet Take 1 tablet by mouth daily with breakfast. Disp: 90 tablet Rfl: 3 metoprolol tartrate, short acting, (LOPRESSOR) 25 mg tablet Take 1 tablet by mouth every 12 hours. Disp: 180 tablet Rfl: 3 ketoconazole (NIZORAL) 2 % shampoo Use as a body wash, most specifically the chest, daily for itching and flaking; may keep in own shower Disp: 340 mL Rfl: 6 atorvastatin (LIPITOR) 80 mg tablet Take 1 tablet by mouth once daily. Disp: 90 tablet Rfl: 3 tamsulosin ER (FLOMAX) 0.4 mg cp24 Take 1 capsule by mouth every evening. for prostate Disp: 90 capsule Rfl: 3 metFORMIN (GLUCOPHAGE) 500 mg tablet Take 1 tablet by mouth three times daily with meals. Disp: 270 tablet Rfl: 3 nitroglycerin sublingual (NITROSTAT) 0.4 mg SL tablet Take 1 tablet by mouth as needed. for chest pain; dissolve on tongue. If no pain relief call 911. Disp: 2 Bottle of 25 Rfl: 5 Ranitidine HCl 300 mg tablet Take with evening meal. Disp: 30 tablet Rfl: 5 magnesium oxide (MAG-OX) 400 mg tablet Take 1 tablet by mouth once daily. Disp: 90 tablet Rfl: 3 COMPOUNDED PRESCRIPTION Please eval and fix any issues with walker.Dx: I50.33, I25.10, E66.01, M54.42, M25.551 Disp: 1 Device Rfl: 0 bisacodyl (DULCOLAX) 10 mg supp 1 Suppository by RECTAL route once daily as needed (for constipation). Disp: Rfl: 0 polyethylene glycol 3350 (MIRALAX, GLYCOLAX) 17 gram/dose powder 17 g up to twice daily as needed prn constipation Disp: Rfl: 0 aspirin, enteric coated (ADULT LOW DOSE ASPIRIN) 81 mg EC tablet Take 1 tablet by mouth once daily. Disp: 90 tablet Rfl: 3 COMPOUNDED PRESCRIPTION Glucometer high/low test solution for accucheck. DX: DM Disp: 1 Bottle Rfl: 3 COMPOUNDED PRESCRIPTION Please perform a nocturnal oximetry on room air on BiPAP. Diagnosis: HypoxiaPlease fax results to [phone] Attn: Glendy Disp: 1 Each Rfl: 0 Lancets (ACCU-CHEK FASTCLIX) lancets Test glucose twice weekly. Dx: 250.00. Insulin Use: no Disp: 100 Each Rfl: 11 blood sugar diagnostic test strip testing twice weekly dx 250.00 insulin no Disp: 50 Strip Rfl: 12 Blood-Glucose Meter, Drum-type (ACCU-CHEK COMPACT PLUS CARE) kit Test fasting blood sugar 1-2 times a week and 2 hrs post meal 1-2 times a week. Disp: 1 Kit Rfl: 0 Blood-Glucose Meter (ONETOUCH ULTRA 2) monitoring kit 1 Each as needed. One Touch Meter Kit Diagnosis: Diabetes Mellitus Disp: 1 Each Rfl: 0 Blood Glucose Control, Normal (OT ULTRA/FASTTRACK CONTROL) soln Test controls as needed. Disp: 1 Each Rfl: 3 COMPOUNDED PRESCRIPTION BIPAP setting: IPAP 22cm water with heated humidification EPAP setting of 16cm with supplemental oxygen bleed in at 2lt per minute. Mask (per patient preference) and supplies for lifetime. Please add chin strap DX EDMOND 327.23 Disp: 1 Act Rfl: 99 No current facility-administered medications for this visit. (currently taking) Anthropometrics: Height: Last 1 Encounter Ht Readings: Date: Ht: 01/24/2018 182.9 cm (6') Current weight: Last 1 Encounter Wt Readings: Date: Wt: 01/24/2018 150.4 kg (331 lb 8 oz) Body mass index is 44.96 kg/m?. Resting Metabolic Rate: 2276 NUTRITION ASSESSMENT: Malnutrition Screening Significant unintentional weight loss? No Eating less than 75% of usual intake for more than 2 weeks? No RECOMMENDED MALNUTRITION DIAGNOSIS: NO MALNUTRITION IDENTIFIED Educational materials provided: none this visit READINESS TO LEARN Cognitive ability: Alert and oriented Motivation to learn: Interested Family support: Unable to assess - Family not present Instruction provided to: Patient Patient learns best by: Individual Instruction Factors affecting learning: None Physical limitations affecting learning: None Likelihood of Adherence: Moderate Patient presents for follow up MNT as relates to diabetes, weight control. Weight today shows 6 pounds lost since last visit, continues to make choices as able with foods provided. Limited exercise and activity. Nutrition Diagnosis: Overweight Obesity, related to; excess energy intake and physical inactivity, as evidenced by BMI above normative standard for age and gender. Nutrition Intervention 01/24/2018: modify type and amount of food or beverage 1. When cleared for exercise get in pool for exercise 2. Continue current guidelines 3. Stop eating at comfortable, not full Nutrition Monitoring AND Evaluation: weight loss Criteria: patient updat3 Need for Follow up: 6 weeks Referred/Supervised by: Syed/Marcelino NOBLE Billing Type: Re-assess/15 min 2 units SIGNATURE: Rebecca Sanders, MS UYEN LD PATIENT NAME: Mayco Kendrick DATE: January 24, 2018 TIME: 1:18 PM Primary Visit Diagnosis:Type 2 diabetes mellitus with other diabetic kidney complication (HCC) [E11.29] Other Visit Diagnoses:Morbid obesity, unspecified obesity type (HCC) [E66.01] Dietary counseling [Z71.3] During your visit today, we recorded the following information about you: Weight Height 150.4 kg 1.829 m Allergies As of Date: 01/24/2018 Noted Allergy Reaction LISINOPRIL 05/31/2014 14 - Other: See Comments Comments: Metallic taste in mouth. SERTRALINE 05/02/2013 8 - GI Upset Date Reviewed: 01/24/2018 Reviewed by: Rebecca Sanders - Fully Assessed Prescriptions as of 01/24/2018 Sig: COMPOUNDED PRESCRIPTION Rollator, # one Dx: I50.33, I* AMMONIUM LACTATE 12 % TOPICAL* Apply 1 application to affect* RIVAROXABAN 20 MG TABLET Take 1 tablet by mouth daily * X SUCRALFATE 1 GRAM TABLET Take 1 tablet by mouth three * FUROSEMIDE 80 MG TABLET One PO daily in AM FUROSEMIDE 40 MG TABLET One PO daily at dinner X PANTOPRAZOLE 40 MG TABLET,DEL* Take 1 tablet by mouth daily * OXYBUTYNIN CHLORIDE 5 MG TABL* Take 1 tablet by mouth three * GLIMEPIRIDE 1 MG TABLET Take 1 tablet by mouth daily * METOPROLOL TARTRATE 25 MG TAB* Take 1 tablet by mouth every * KETOCONAZOLE 2 % SHAMPOO Use as a body wash, most spec* ATORVASTATIN 80 MG TABLET Take 1 tablet by mouth once d* TAMSULOSIN 0.4 MG CAPSULE Take 1 capsule by mouth every* METFORMIN 500 MG TABLET Take 1 tablet by mouth three * NITROGLYCERIN 0.4 MG SUBLINGU* Take 1 tablet by mouth as nee* RANITIDINE 300 MG TABLET Take with evening meal. MAGNESIUM OXIDE 400 MG TABLET Take 1 tablet by mouth once d* COMPOUNDED PRESCRIPTION Please eval and fix any issue* BISACODYL 10 MG RECTAL SUPPOS* 1 Suppository by RECTAL route* POLYETHYLENE GLYCOL 3350 17 G* 17 g up to twice daily as nee* ASPIRIN 81 MG TABLET,DELAYED * Take 1 tablet by mouth once d* COMPOUNDED PRESCRIPTION Glucometer high/low test solu* COMPOUNDED PRESCRIPTION Please perform a nocturnal ox* LANCETS Test glucose twice weekly. Dx* BLOOD SUGAR DIAGNOSTIC STRIPS testing twice weekly dx 250* BLOOD-GLUCOSE METER, DRUM-TYP* Test fasting blood sugar 1-2 * BLOOD-GLUCOSE METER KIT 1 Each as needed. One Touch M* BLOOD GLUCOSE CONTROL, NORMAL* Test controls as needed. * COMPOUNDED PRESCRIPTION BIPAP setting: IPAP 22cm wate* Encounter Status:Closed by REBECCA CARRILLO MS, RD on 01/26/18 PROGRESS Observed: 01/24/2018 Status: COMPLETED Source: [place] 1:11 PM [facility] RE[facility]IT[facility] HNO ID: [id number] Author: Rebecca (Uyen) Tommy Service: (none) Author Type: Registered Dietitian Type: Progress Notes Filed: 01/26/2018 1:56 PM Note Text: Nutritional Therapy: Re-Assessment PAIN: Is the patient having any pain that is interfering with oral / enteral intake? No 0 on a scale of 0 to 10 PROGRESS: Nutrition Intervention (date of last encounter 11/29/17): 1. All beverages calorie free and sugar free, no juice 2. Use hunger fullness scale, focus on smaller portions, stop at a 6-7. 3.increase exercise to at least 20 min most days, try for activity 5 min every hour. 4. Continue to make best choice possible for meals out of what is served. CHANGES IN TREATMENT: Patient met goal(s): Partially Actions to implement interventions: Less activity with recent carpal tunnel surgery Just finished water aerobics Diet History: This morning 140 Breakfast - breakfast burrito; milk, water Snack - celery Lunch - will have [employer]; Snack - veggies and fruit Dinner - chili dog and veg, fruit Snack - veggies and fruits, occ couple eggs on toast Beverages - unsweet iced Tea, water and milk CLINICAL IMPRESSIONS: fair REVISIONS IN DIAGNOSIS: Diagnosis: has not changed. Allergies: Lisinopril; Sertraline Medications: Current Outpatient Prescriptions: COMPOUNDED PRESCRIPTION Rollator, # one Dx: I50.33, I25.700, I48.0, J45.20, E66.01, M54.42, M25.551, Z91.81 Disp: 1 Device Rfl: 0 ammonium lactate (LAC-HYDRIN) 12 % cream Apply 1 application to affected area twice daily as needed. Disp: 385 g Rfl: 11 rivaroxaban (XARELTO) 20 mg tablet Take 1 tablet by mouth daily with dinner. Disp: Rfl: sucralfate (CARAFATE) 1 gram tablet Take 1 tablet by mouth three times daily before meals. 30 minutes before meals. Disp: 90 tablet Rfl: [address] (PROTONIX) 40 mg tablet Take 1 tablet by mouth daily before breakfast. Take on empty stomach, 1/2 hr before meal. Per Gastroenterology Disp: 30 tablet Rfl: 11 furosemide (LASIX) 80 mg tablet One PO daily in AM Disp: 90 tablet Rfl: 3 furosemide (LASIX) 40 mg tablet One PO daily at dinner Disp: 90 tablet Rfl: 3 oxybutynin (DITROPAN) 5 mg tablet Take 1 tablet by mouth three times daily. Disp: 90 tablet Rfl: 11 glimepiride (AMARYL) 1 mg tablet Take 1 tablet by mouth daily with breakfast. Disp: 90 tablet Rfl: 3 metoprolol tartrate, short acting, (LOPRESSOR) 25 mg tablet Take 1 tablet by mouth every 12 hours. Disp: 180 tablet Rfl: 3 ketoconazole (NIZORAL) 2 % shampoo Use as a body wash, most specifically the chest, daily for itching and flaking; may keep in own shower Disp: 340 mL Rfl: 6 atorvastatin (LIPITOR) 80 mg tablet Take 1 tablet by mouth once daily. Disp: 90 tablet Rfl: 3 tamsulosin ER (FLOMAX) 0.4 mg cp24 Take 1 capsule by mouth every evening. for prostate Disp: 90 capsule Rfl: 3 metFORMIN (GLUCOPHAGE) 500 mg tablet Take 1 tablet by mouth three times daily with meals. Disp: 270 tablet Rfl: 3 nitroglycerin sublingual (NITROSTAT) 0.4 mg SL tablet Take 1 tablet by mouth as needed. for chest pain; dissolve on tongue. If no pain relief call 911. Disp: 2 Bottle of 25 Rfl: 5 Ranitidine HCl 300 mg tablet Take with evening meal. Disp: 30 tablet Rfl: 5 magnesium oxide (MAG-OX) 400 mg tablet Take 1 tablet by mouth once daily. Disp: 90 tablet Rfl: 3 COMPOUNDED PRESCRIPTION Please eval and fix any issues with walker.Dx: I50.33, I25.10, E66.01, M54.42, M25.551 Disp: 1 Device Rfl: 0 bisacodyl (DULCOLAX) 10 mg supp 1 Suppository by RECTAL route once daily as needed (for constipation). Disp: Rfl: 0 polyethylene glycol 3350 (MIRALAX, GLYCOLAX) 17 gram/dose powder 17 g up to twice daily as needed prn constipation Disp: Rfl: 0 aspirin, enteric coated (ADULT LOW DOSE ASPIRIN) 81 mg EC tablet Take 1 tablet by mouth once daily. Disp: 90 tablet Rfl: 3 COMPOUNDED PRESCRIPTION Glucometer high/low test solution for accucheck. DX: DM Disp: 1 Bottle Rfl: 3 COMPOUNDED PRESCRIPTION Please perform a nocturnal oximetry on room air on BiPAP. Diagnosis: HypoxiaPlease fax results to [phone] Attn: Glendy Disp: 1 Each Rfl: 0 Lancets (ACCU-CHEK FASTCLIX) lancets Test glucose twice weekly. Dx: 250.00. Insulin Use: no Disp: 100 Each Rfl: 11 blood sugar diagnostic test strip testing twice weekly dx 250.00 insulin no Disp: 50 Strip Rfl: 12 Blood-Glucose Meter, Drum-type (ACCU-CHEK COMPACT PLUS CARE) kit Test fasting blood sugar 1-2 times a week and 2 hrs post meal 1- 2 times a week. Disp: 1 Kit Rfl: 0 Blood-Glucose Meter (ONETOUCH ULTRA 2) monitoring kit 1 Each as needed. One Touch Meter Kit Diagnosis: Diabetes Mellitus Disp: 1 Each Rfl: 0 Blood Glucose Control, Normal (OT ULTRA/FASTTRACK CONTROL) soln Test controls as needed. Disp: 1 Each Rfl: 3 COMPOUNDED PRESCRIPTION BIPAP setting: IPAP 22cm water with heated humidification EPAP setting of 16cm with supplemental oxygen bleed in at 2lt per minute. Mask (per patient preference) and supplies for lifetime. Please add chin strap DX EDMOND 327.23 Disp: 1 Act Rfl: 99 No current facility-administered medications for this visit. (currently taking) Anthropometrics: Height: Last 1 Encounter Ht Readings: Date: Ht: 01/24/2018 182.9 cm (6') Current weight: Last 1 Encounter Wt Readings: Date: Wt: 01/24/2018 150.4 kg (331 lb 8 oz) Body mass index is 44.96 kg/m?. Resting Metabolic Rate: 2276 NUTRITION ASSESSMENT: Malnutrition Screening Significant unintentional weight loss? No Eating less than 75% of usual intake for more than 2 weeks? No RECOMMENDED MALNUTRITION DIAGNOSIS: NO MALNUTRITION IDENTIFIED Educational materials provided: none this visit READINESS TO LEARN Cognitive ability: Alert and oriented Motivation to learn: Interested Family support: Unable to assess - Family not present Instruction provided to: Patient Patient learns best by: Individual Instruction Factors affecting learning: None Physical limitations affecting learning: None Likelihood of Adherence: Moderate Patient presents for follow up MNT as relates to diabetes, weight control. Weight today shows 6 pounds lost since last visit, continues to make choices as able with foods provided. Limited exercise and activity. Nutrition Diagnosis: Overweight Obesity, related to; excess energy intake and physical inactivity, as evidenced by BMI above normative standard for age and gender. Nutrition Intervention 01/24/2018: modify type and amount of food or beverage 1. When cleared for exercise get in pool for exercise 2. Continue current guidelines 3. Stop eating at comfortable, not full Nutrition Monitoring AND Evaluation: weight loss Criteria: patient updat3 Need for Follow up: 6 weeks Referred/Supervised by: Syed/Marcelino MNT Billing Type: Re-assess/15 min 2 units SIGNATURE: Rebecca Sanders MS RD LD PATIENT NAME: Mayco Kendrick DATE: January 24, 2018 TIME: 1:18 PM PROGRESS Observed: 01/24/2018 Status: COMPLETED Source: [place] 12:43 PM [facility] HNO ID: [id number] Author: Joan Noe (Pa) Service: (none) Author Type: Physician Budget Officer Type: Progress Notes Filed: 01/24/2018 1:04 PM Note Text: Joan Noe PA-C Department of Orthopaedics Orthopa[facility] [address] [facility] [address] Dept: [phone] Dept January 24, 2018 CHIEF COMPLAINT: Recheck (1 week 3 days post op left ulnar nerve decompression and left CTR). 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 He complains of 1 out of 10 pain in the left hand and 8 out of 10 pain at the left elbow. Numbness in all fingers has improved but he does note some intermittent numbness in his ring finger. He is not currently taking anything for pain. Notes some difficulty ambulating as he normally carries his cane in his left hand. We will remove his sutures today and give him a compression wrap for his elbow, he will also be fitted with a gel brace for the left palm. We will see him back next month for his second follow-up. Exam: Incision sites are well approximated without any erythema, discharge or drainage. Mild tenderness to palpation in the base of the left palm and also near his incision sites with left elbow. Mild edema of the left palm. Resolving ecchymosis of the base of the left thumb. Patient has full and active range of motion left elbow and left hand. Patient is neurologically intact. Imaging: deferred today Mr. Myaco Kendrick was advised as to contrast therapies and/or to take analgesics/anti-inflammatories as needed and all contraindications were reviewed. Supporting Information Below: Medications: Current Outpatient Prescriptions: COMPOUNDED PRESCRIPTION Rollator, # one Dx: I50.33, I25.700, I48.0, J45.20, E66.01, M54.42, M25.551, Z91.81 ammonium lactate (LAC-HYDRIN) 12 % cream Apply 1 application to affected area twice daily as needed. sucralfate (CARAFATE) 1 gram tablet Take 1 tablet by mouth three times daily before meals. 30 minutes before meals. pantoprazole DR (PROTONIX) 40 mg tablet Take 1 tablet by mouth daily before breakfast. Take on empty stomach, 1/2 hr before meal. Per Gastroenterology furosemide (LASIX) 80 mg tablet One PO daily in AM furosemide (LASIX) 40 mg tablet One PO daily at dinner oxybutynin (DITROPAN) 5 mg tablet Take 1 tablet by mouth three times daily. glimepiride (AMARYL) 1 mg tablet Take 1 tablet by mouth daily with breakfast. metoprolol tartrate, short acting, (LOPRESSOR) 25 mg tablet Take 1 tablet by mouth every 12 hours. ketoconazole (NIZORAL) 2 % shampoo Use as a body wash, most specifically the chest, daily for itching and flaking; may keep in own shower atorvastatin (LIPITOR) 80 mg tablet Take 1 tablet by mouth once daily. tamsulosin ER (FLOMAX) 0.4 mg cp24 Take 1 capsule by mouth every evening. for prostate metFORMIN (GLUCOPHAGE) 500 mg tablet Take 1 tablet by mouth three times daily with meals. nitroglycerin sublingual (NITROSTAT) 0.4 mg SL tablet Take 1 tablet by mouth as needed. for chest pain; dissolve on tongue. If no pain relief call 911. Ranitidine HCl 300 mg tablet Take with evening meal. magnesium oxide (MAG-OX) 400 mg tablet Take 1 tablet by mouth once daily. COMPOUNDED PRESCRIPTION Please eval and fix any issues with walker.Dx: I50.33, I25.10, E66.01, M54.42, M25.551 bisacodyl (DULCOLAX) 10 mg supp 1 Suppository by RECTAL route once daily as needed (for constipation). polyethylene glycol 3350 (MIRALAX, GLYCOLAX) 17 gram/dose powder 17 g up to twice daily as needed prn constipation aspirin, enteric coated (ADULT LOW DOSE ASPIRIN) 81 mg EC tablet Take 1 tablet by mouth once daily. COMPOUNDED PRESCRIPTION Glucometer high/low test solution for accucheck. DX: DM COMPOUNDED PRESCRIPTION Please perform a nocturnal oximetry on room air on BiPAP. Diagnosis: HypoxiaPlease fax results to [phone] Attn: Glendy Lancets (ACCU-CHEK FASTCLIX) lancets Test glucose twice weekly. Dx: 250.00. Insulin Use: no blood sugar diagnostic test strip testing twice weekly dx 250.00 insulin no Blood-Glucose Meter, Drum-type (ACCU-CHEK COMPACT PLUS CARE) kit Test fasting blood sugar 1-2 times a week and 2 hrs post meal 1- 2 times a week. Blood-Glucose Meter (ONETOUCH ULTRA 2) monitoring kit 1 Each as needed. One Touch Meter Kit Diagnosis: Diabetes Mellitus Blood Glucose Control, Normal (OT ULTRA/FASTTRACK CONTROL) soln Test controls as needed. COMPOUNDED PRESCRIPTION BIPAP setting: IPAP 22cm water with heated humidification EPAP setting of 16cm with supplemental oxygen bleed in at 2lt per minute. Mask (per patient preference) and supplies for lifetime. Please add chin strap DX EDMOND 327.23 rivaroxaban (XARELTO) 20 mg tablet Take 1 tablet by mouth daily with dinner. No current facility-administered medications for this visit. Allergies: Lisinopril; Sertraline This note was partially generated using [employer] voice recognition system, and there may be some incorrect words, spellings, and punctuation that were not noted in checking the note before saving. Joan Noe PA-C PROGRESS Observed: 01/24/2018 Status: COMPLETED Source: [place] 11:32 AM [facility] REPOSITORY O ID: [id number] Author: Niki Cervantes RN Service: (none) Author Type: (none) Type: Progress Notes Filed: 01/24/2018 1:04 PM Note Text: AMB ROOMING INTAKE FLOWSHEET DATA Risk Screening Do you have concerns about personal safety or safety in the home?: No Pain Pain Score: (elbow 8 and hand 1) Pain Location: (left 5th finger numb intermittently and elbow sharp intermittently) Description: (see above) Duration Amount of Time: 10 Duration Units: Days Frequency: Intermittent Intervention: Medication, Splinting Patient presents with: Recheck: 1 week 3 days post op left ulnar nerve decompression and left CTR Pt. presents from assisted living. He states he has needed nothing for pain for past few days. He arrives with post-op dressings and splint still on. Removed. Moderate amount of old blood on elbow portion of dressing. Steri-strips intact to elbow and incision well approximated and without exudate. Hand incision remains well approximated, and without redness, edema or exudate, and sutures intact. He states this is the hand he normally uses for cane, and that he wonders if his sutures should stay in just a bit longer? He has adjusted to using right hand for cane and encouraged to continue doing this whether sutures come out today or not. Explained that he should avoid pushing, pulling or lifting greater than 5 lbs. with affected extremity, so he should continue to use his cane in right hand for at least the next few weeks. Discussed with Joan and sutures removed after cleansing incision with Chlora Prep. Pt. tolerated well. Tails of disolveable sutures trimmed on elbow incision. Pt. given 2 size G Sherly Nib Inspector sleeves for left elbow and gel wrist brace for left wrist. Pt. instructed in care and use and instructed to keep incision clean and dry and only use gel brace when active to avoid increased sweating and skin infection at incision site. Pt. also instructed to avoid immersion in pool, bath, or dish water x 48 hours, but may shower and wash hands. pt. verbalizes understanding. CNAISLINN Observed: 01/24/2018 Status: COMPLETED Source: [place] 11:30 AM [facility] REPOSITORY Office Visit (ORTHWS) MAYCO KENDRICK ([id number]) 1940 NFR Date Time Provider Department 01/24/18 11:30 AM JOAN NOE) ORTHDANIELLE During your visit today, we recorded the following information about you: Niki Cervantes RN 01/24/2018 1:04 PM Signed AMB ROOMING INTAKE FLOWSHEET DATA Risk Screening Do you have concerns about personal safety or safety in the home?: No Pain Pain Score: (elbow 8 and hand 1) Pain Location: (left 5th finger numb intermittently and elbow sharp intermittently) Description: (see above) Duration Amount of Time: 10 Duration Units: Days Frequency: Intermittent Intervention: Medication, Splinting Patient presents with: Recheck: 1 week 3 days post op left ulnar nerve decompression and left CTR Pt. presents from assisted living. He states he has needed nothing for pain for past few days. He arrives with post-op dressings and splint still on. Removed. Moderate amount of old blood on elbow portion of dressing. Steri-strips intact to elbow and incision well approximated and without exudate. Hand incision remains well approximated, and without redness, edema or exudate, and sutures intact. He states this is the hand he normally uses for cane, and that he wonders if his sutures should stay in just a bit longer? He has adjusted to using right hand for cane and encouraged to continue doing this whether sutures come out today or not. Explained that he should avoid pushing, pulling or lifting greater than 5 lbs. with affected extremity, so he should continue to use his cane in right hand for at least the next few weeks. Discussed with Joan and sutures removed after cleansing incision with Chlora Prep. Pt. tolerated well. Tails of disolveable sutures trimmed on elbow incision. Pt. given 2 size G Sherly Nib Inspector sleeves for left elbow and gel wrist brace for left wrist. Pt. instructed in care and use and instructed to keep incision clean and dry and only use gel brace when active to avoid increased sweating and skin infection at incision site. Pt. also instructed to avoid immersion in pool, bath, or dish water x 48 hours, but may shower and wash hands. pt. verbalizes understanding. Joan Noe PA-C 01/24/2018 12:24 PM Signed Ok to shower, no soaking incision sites in bath or swimming pool. Avoid heavy lifting or repataive actions with operative arm. Gel brace for left wrist as needed for comfort. Elbow sleeve as needed for comfort. Follow up 03/[address] Chavez. Joan Noe PA-C 01/24/2018 1:04 PM Signed Joan Noe PA-C Department of [facility] Orth[facility] [address] [place] [id number] Dept: [phone] Dept January 24, 2018 CHIEF COMPLAINT: Recheck (1 week 3 days post op left ulnar nerve decompression and left CTR). 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 He complains of 1 out of 10 pain in the left hand and 8 out of 10 pain at the left elbow. Numbness in all fingers has improved but he does note some intermittent numbness in his ring finger. He is not currently taking anything for pain. Notes some difficulty ambulating as he normally carries his cane in his left hand. We will remove his sutures today and give him a compression wrap for his elbow, he will also be fitted with a gel brace for the left palm. We will see him back next month for his second follow-up. Exam: Incision sites are well approximated without any erythema, discharge or drainage. Mild tenderness to palpation in the base of the left palm and also near his incision sites with left elbow. Mild edema of the left palm. Resolving ecchymosis of the base of the left thumb. Patient has full and active range of motion left elbow and left hand. Patient is neurologically intact. Imaging: deferred today Mr. Mayco Kendrick was advised as to contrast therapies and/or to take analgesics/anti-inflammatories as needed and all contraindications were reviewed. Supporting Information Below: Medications: Current Outpatient Prescriptions: COMPOUNDED PRESCRIPTION Rollator, # one Dx: I50.33, I25.700, I48.0, J45.20, E66.01, M54.42, M25.551, Z91.81 ammonium lactate (LAC-HYDRIN) 12 % cream Apply 1 application to affected area twice daily as needed. sucralfate (CARAFATE) 1 gram tablet Take 1 tablet by mouth three times daily before meals. 30 minutes before meals. pantoprazole DR (PROTONIX) 40 mg tablet Take 1 tablet by mouth daily before breakfast. Take on empty stomach, 1/2 hr before meal. Per Gastroenterology furosemide (LASIX) 80 mg tablet One PO daily in AM furosemide (LASIX) 40 mg tablet One PO daily at dinner oxybutynin (DITROPAN) 5 mg tablet Take 1 tablet by mouth three times daily. glimepiride (AMARYL) 1 mg tablet Take 1 tablet by mouth daily with breakfast. metoprolol tartrate, short acting, (LOPRESSOR) 25 mg tablet Take 1 tablet by mouth every 12 hours. ketoconazole (NIZORAL) 2 % shampoo Use as a body wash, most specifically the chest, daily for itching and flaking; may keep in own shower atorvastatin (LIPITOR) 80 mg tablet Take 1 tablet by mouth once daily. tamsulosin ER (FLOMAX) 0.4 mg cp24 Take 1 capsule by mouth every evening. for prostate metFORMIN (GLUCOPHAGE) 500 mg tablet Take 1 tablet by mouth three times daily with meals. nitroglycerin sublingual (NITROSTAT) 0.4 mg SL tablet Take 1 tablet by mouth as needed. for chest pain; dissolve on tongue. If no pain relief call 911. Ranitidine HCl 300 mg tablet Take with evening meal. magnesium oxide (MAG-OX) 400 mg tablet Take 1 tablet by mouth once daily. COMPOUNDED PRESCRIPTION Please eval and fix any issues with walker.Dx: I50.33, I25.10, E66.01, M54.42, M25.551 bisacodyl (DULCOLAX) 10 mg supp 1 Suppository by RECTAL route once daily as needed (for constipation). polyethylene glycol 3350 (MIRALAX, GLYCOLAX) 17 gram/dose powder 17 g up to twice daily as needed prn constipation aspirin, enteric coated (ADULT LOW DOSE ASPIRIN) 81 mg EC tablet Take 1 tablet by mouth once daily. COMPOUNDED PRESCRIPTION Glucometer high/low test solution for accucheck. DX: DM COMPOUNDED PRESCRIPTION Please perform a nocturnal oximetry on room air on BiPAP. Diagnosis: HypoxiaPlease fax results to [phone] Attn: Glendy Lancets (ACCU-CHEK FASTCLIX) lancets Test glucose twice weekly. Dx: 250.00. Insulin Use: no blood sugar diagnostic test strip testing twice weekly dx 250.00 insulin no Blood-Glucose Meter, Drum-type (ACCU-CHEK COMPACT PLUS CARE) kit Test fasting blood sugar 1-2 times a week and 2 hrs post meal 1-2 times a week. Blood-Glucose Meter (ONETOUCH ULTRA 2) monitoring kit 1 Each as needed. One Touch Meter Kit Diagnosis: Diabetes Mellitus Blood Glucose Control, Normal (OT ULTRA/FASTTRACK CONTROL) soln Test controls as needed. COMPOUNDED PRESCRIPTION BIPAP setting: IPAP 22cm water with heated humidification EPAP setting of 16cm with supplemental oxygen bleed in at 2lt per minute. Mask (per patient preference) and supplies for lifetime. Please add chin strap DX EDMOND 327.23 rivaroxaban (XARELTO) 20 mg tablet Take 1 tablet by mouth daily with dinner. No current facility-administered medications for this visit. Allergies: Lisinopril; Sertraline This note was partially generated using Cell[employer] voice recognition system, and there may be some incorrect words, spellings, and punctuation that were not noted in checking the note before saving. Joan Noe PA-C Referring Provider: SELF [200] Allergies As of Date: 01/24/2018 Noted Allergy Reaction LISINOPRIL 05/31/2014 14 - Other: See Comments Comments: Metallic taste in mouth. SERTRALINE 05/02/2013 8 - GI Upset Date Reviewed: 01/24/2018 Reviewed by: Joan Noe (Pa) - Fully Assessed Reason for Visit: Recheck [92] Cmt: 1 week 3 days post op left ulnar nerve decompression and left CTR Primary Visit Diagnosis:Ulnar neuropathy at elbow of left upper extremity [G56.22] Other Visit Diagnosis:Carpal tunnel syndrome of left wrist [G56.02] Prescriptions as of 01/24/2018 Sig: COMPOUNDED PRESCRIPTION Rollator, # one Dx: I50.33, I* AMMONIUM LACTATE 12 % TOPICAL* Apply 1 application to affect* SUCRALFATE 1 GRAM TABLET Take 1 tablet by mouth three * PANTOPRAZOLE 40 MG TABLET,DEL* Take 1 tablet by mouth daily * FUROSEMIDE 80 MG TABLET One PO daily in AM FUROSEMIDE 40 MG TABLET One PO daily at dinner OXYBUTYNIN CHLORIDE 5 MG TABL* Take 1 tablet by mouth three * GLIMEPIRIDE 1 MG TABLET Take 1 tablet by mouth daily * METOPROLOL TARTRATE 25 MG TAB* Take 1 tablet by mouth every * KETOCONAZOLE 2 % SHAMPOO Use as a body wash, most spec* ATORVASTATIN 80 MG TABLET Take 1 tablet by mouth once d* TAMSULOSIN 0.4 MG CAPSULE Take 1 capsule by mouth every* METFORMIN 500 MG TABLET Take 1 tablet by mouth three * NITROGLYCERIN 0.4 MG SUBLINGU* Take 1 tablet by mouth as nee* RANITIDINE 300 MG TABLET Take with evening meal. MAGNESIUM OXIDE 400 MG TABLET Take 1 tablet by mouth once d* COMPOUNDED PRESCRIPTION Please eval and fix any issue* BISACODYL 10 MG RECTAL SUPPOS* 1 Suppository by RECTAL route* POLYETHYLENE GLYCOL 3350 17 G* 17 g up to twice daily as nee* ASPIRIN 81 MG TABLET,DELAYED * Take 1 tablet by mouth once d* COMPOUNDED PRESCRIPTION Glucometer high/low test solu* COMPOUNDED PRESCRIPTION Please perform a nocturnal ox* LANCETS Test glucose twice weekly. Dx* BLOOD SUGAR DIAGNOSTIC STRIPS testing twice weekly dx 250* BLOOD-GLUCOSE METER, DRKIANNA-TYP* Test fasting blood sugar 1-2 * BLOOD-GLUCOSE METER KIT 1 Each as needed. One Touch M* BLOOD GLUCOSE CONTROL, NORMAL* Test controls as needed. * COMPOUNDED PRESCRIPTION BIPAP setting: IPAP 22cm wate* RIVAROXABAN 20 MG TABLET Take 1 tablet by mouth daily * Medication notes this encounter BLOOD-GLUCOSE METER, DRUM-TYPE KIT >> Niki Cervantes RN 01/24/2018 11:28 AM >> NIKI CERVANTES RN WedJan 24, 2018 11:28 AM pt. not sure which machine is being used at assisted living Problem List As Of Date 01/24/2018 Noted Resolved Mild intermittent asthma without complication [* Priority: A MALIGN NEOPL PROSTATE [C61] Priority: B More... Type II or unspecified type diabetes mellitus w* 01/18/2014 Allergic rhinitis, cause unspecified [J30.9] INVALID FOR* Priority: B More... Personal history of colonic polyps [Z86.010] Priority: C More... Lumbago [M54.5] INVALID FOR* Priority: M Bilateral leg edema [R60.0] INVALID FOR* Priority: A Carpal tunnel syndrome, bilateral [G56.03] INVALID FOR* Priority: M More... Essential hypertension, benign [I10] INVALID FOR* Priority: A More... Insomnia, unspecified [G47.00] INVALID FOR* Priority: B More... Benign neoplasm of rectum and anal canal [D12.8*INVALID FOR* Priority: C Diverticulosis of colon (without mention of hem*INVALID FOR* Priority: C Hypertrophy of nasal turbinates [J34.3] INVALID FOR* Priority: C More... 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 More... More... EDMOND (obstructive sleep apnea) [G47.33] INVALID FOR* Priority: B More... Mobitz (type) I (Wenckebach's) atrioventricular*INVALID FOR* Priority: A More... More... Mixed hyperlipidemia [E78.2] INVALID FOR* Priority: A More... DVT prophylaxis [[id number]] INVALID FOR*07/26/2014 More... More... More... More... More... More... Bradycardia [R00.1] INVALID FOR* Priority: A More... Venous stasis dermatitis of both lower extremit*INVALID FOR* Priority: B Counseling and coordination of care [Z71.89] INVALID FOR*04/12/2015 More... Hypomagnesemia [E83.42] INVALID FOR* Priority: B Diabetic eye exam (HCC) [Z01.00, E11.9] INVALID FOR* Priority: A More... Dry mouth [R68.2] INVALID FOR* Priority: B Noncompliance [Z91.19] INVALID FOR* Gastroesophageal reflux disease without esophag*INVALID FOR* Priority: A Coronary atherosclerosis due to lipid rich plaq*INVALID FOR* Priority: A Morbid obesity due to excess calories (HCC) [E6*INVALID FOR* Priority: B More... Essential tremor [G25.0] INVALID FOR* Priority: B Chronic cough [R05] INVALID FOR* Priority: B Well adult exam [Z00.00] INVALID FOR*01/07/2018 Priority: E More... Controlled type 2 diabetes mellitus with diabet*INVALID FOR* Priority: A Depression [F32.9] INVALID FOR* Priority: A Multiple open wounds of lower leg [S81.809A] INVALID FOR* Priority: D Colon cancer screening [Z12.11] INVALID FOR* Chest pain [R07.9] INVALID FOR* Priority: B More... Second degree heart block [I44.1] INVALID FOR* Priority: A More... Atherosclerosis of coronary artery bypass graft*INVALID FOR* Priority: A More... More... More... More... Hypoxia [R09.02] INVALID FOR* Chronic bilateral low back pain with left-sided*INVALID FOR* Priority: M Bilateral hip pain [M25.551, M25.552] INVALID FOR* Priority: M Paroxysmal atrial fibrillation (HCC) [I48.0] INVALID FOR* Priority: A More... 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 More... 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 More... Current use of proton pump inhibitor [Z79.899] INVALID FOR* More... Ulnar neuropathy at elbow of left upper extremi*INVALID FOR* Priority: M More... Hemoptysis [R04.2] INVALID FOR* Priority: A More... At high risk for falls [Z91.81] INVALID FOR* Other instructions from your clinician: Ok to shower, no soaking incision sites in bath or swimming pool. Avoid heavy lifting or repataive actions with operative arm. Gel brace for left wrist as needed for comfort. Elbow sleeve as needed for comfort. Follow up 03/[address] Chavez. Encounter Status:Closed by JOAN NOE PA-C on 01/24/18 ALLI Observed: 01/20/2018 Status: COMPLETED Source: [place] 12:00 AM [facility] REPOS[facility] Telephone (FAMPWS) MAYCO KENDRICK ([id number]) [address] [facility] Date Time Provider Department 01/20/18 [facility] During your visit today, we recorded the following information about you: Calli Syed, RN, RN 01/20/2018 10:50 AM Signed Ryanne/Toma Keen calls regarding Xarelto. States pt has not been on Xarelto since 11/12 due to blood tinged sputum. Pt was in office yesterday but no orders on whether to restart Xarelto. Pt has not had blood tinged sputum since stopping. Please advise Ryanne. Bertrand Leon MD 01/20/2018 11:01 AM Signed Let Toma Keen know per pulmonary patient to high risk for bronch and he is too high risk to be on an anticoagulant because of recurrent hemoptysis when he has been restarted on Coumadin and xarelto. The only option at this time is for him to return manpreet Dr. Huff in pulmonary to see if he will bronch him before we restart any anticoagulation. Tatiana Chamberlain LPN 01/20/2018 11:12 AM Signed Left a message on Ryanne's vm to call office back. Tatiana Peguero RN 01/20/2018 12:48 PM Signed Ryanne returned call and given provider's message below. [facility] Ryanne [facility]. . Calli Syed, RN, RN 01/20/2018 3:56 PM Signed Pt calls in asking what he needs to see pulmonology for. Advised pt will need to see pulmonology for possible bronch before resuming Xeralto. Pt verbalizes understanding. Pt states will call to set up appt. Allergies As of Date: 01/20/2018 Noted Allergy Reaction LISINOPRIL 05/31/2014 14 - Other: See Comments Comments: Metallic taste in mouth. SERTRALINE 05/02/2013 8 - GI Upset Date Reviewed: 01/19/2018 Reviewed by: Bertrand Leon - Fully Assessed Reason for Visit: Xeralto [Other] Prescriptions as of 01/20/2018 Sig: COMPOUNDED PRESCRIPTION Rollator, # one Dx: I50.33, I* HYDROCODONE 5 MG-ACETAMINOPHE* Take 1 tablet by mouth every * AMMONIUM LACTATE 12 % TOPICAL* Apply 1 application to affect* RIVAROXABAN 20 MG TABLET Take 1 tablet by mouth daily * SUCRALFATE 1 GRAM TABLET Take 1 tablet by mouth three * PANTOPRAZOLE 40 MG TABLET,DEL* Take 1 tablet by mouth daily * FUROSEMIDE 80 MG TABLET One PO daily in AM FUROSEMIDE 40 MG TABLET One PO daily at dinner OXYBUTYNIN CHLORIDE 5 MG TABL* Take 1 tablet by mouth three * GLIMEPIRIDE 1 MG TABLET Take 1 tablet by mouth daily * METOPROLOL TARTRATE 25 MG TAB* Take 1 tablet by mouth every * KETOCONAZOLE 2 % SHAMPOO Use as a body wash, most spec* ATORVASTATIN 80 MG TABLET Take 1 tablet by mouth once d* TAMSULOSIN 0.4 MG CAPSULE Take 1 capsule by mouth every* METFORMIN 500 MG TABLET Take 1 tablet by mouth three * NITROGLYCERIN 0.4 MG SUBLINGU* Take 1 tablet by mouth as nee* RANITIDINE 300 MG TABLET Take with evening meal. MAGNESIUM OXIDE 400 MG TABLET Take 1 tablet by mouth once d* COMPOUNDED PRESCRIPTION Please eval and fix any issue* BISACODYL 10 MG RECTAL SUPPOS* 1 Suppository by RECTAL route* POLYETHYLENE GLYCOL 3350 17 G* 17 g up to twice daily as nee* ASPIRIN 81 MG TABLET,DELAYED * Take 1 tablet by mouth once d* COMPOUNDED PRESCRIPTION Glucometer high/low test solu* COMPOUNDED PRESCRIPTION Please perform a nocturnal ox* LANCETS Test glucose twice weekly. Dx* BLOOD SUGAR DIAGNOSTIC STRIPS testing twice weekly dx 250* BLOOD-GLUCOSE METER, DRUM-TYP* Test fasting blood sugar 1-2 * BLOOD-GLUCOSE METER KIT 1 Each as needed. One Touch M* BLOOD GLUCOSE CONTROL, NORMAL* Test controls as needed. * COMPOUNDED PRESCRIPTION BIPAP setting: IPAP 22cm wate* Problem List As Of Date 01/20/2018 Noted Resolved Mild intermittent asthma without complication [* Priority: A MALIGN NEOPL PROSTATE [C61] Priority: B More... Type II or unspecified type diabetes mellitus w* 01/18/2014 Allergic rhinitis, cause unspecified [J30.9] INVALID FOR* Priority: B More... Personal history of colonic polyps [Z86.010] Priority: C More... Lumbago [M54.5] INVALID FOR* Priority: M Bilateral leg edema [R60.0] INVALID FOR* Priority: A Carpal tunnel syndrome, bilateral [G56.03] INVALID FOR* Priority: M More... Essential hypertension, benign [I10] INVALID FOR* Priority: A More... Insomnia, unspecified [G47.00] INVALID FOR* Priority: B More... Benign neoplasm of rectum and anal canal [D12.8*INVALID FOR* Priority: C Diverticulosis of colon (without mention of hem*INVALID FOR* Priority: C Hypertrophy of nasal turbinates [J34.3] INVALID FOR* Priority: C More... 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 More... More... EDMOND (obstructive sleep apnea) [G47.33] INVALID FOR* Priority: B More... Mobitz (type) I (Wenckebach's) atrioventricular*INVALID FOR* Priority: A More... More... Mixed hyperlipidemia [E78.2] INVALID FOR* Priority: A More... DVT prophylaxis [[id number]] INVALID FOR*07/26/2014 More... More... More... More... More... More... Bradycardia [R00.1] INVALID FOR* Priority: A More... Venous stasis dermatitis of both lower extremit*INVALID FOR* Priority: B Counseling and coordination of care [Z71.89] INVALID FOR*04/12/2015 More... Hypomagnesemia [E83.42] INVALID FOR* Priority: B Diabetic eye exam (HCC) [Z01.00, E11.9] INVALID FOR* Priority: A More... Dry mouth [R68.2] INVALID FOR* Priority: B Noncompliance [Z91.19] INVALID FOR* Gastroesophageal reflux disease without esophag*INVALID FOR* Priority: A Coronary atherosclerosis due to lipid rich plaq*INVALID FOR* Priority: A Morbid obesity due to excess calories (HCC) [E6*INVALID FOR* Priority: B More... Essential tremor [G25.0] INVALID FOR* Priority: B Chronic cough [R05] INVALID FOR* Priority: B Well adult exam [Z00.00] INVALID FOR*01/07/2018 Priority: E More... Controlled type 2 diabetes mellitus with diabet*INVALID FOR* Priority: A Depression [F32.9] INVALID FOR* Priority: A Multiple open wounds of lower leg [S81.809A] INVALID FOR* Priority: D Colon cancer screening [Z12.11] INVALID FOR* Chest pain [R07.9] INVALID FOR* Priority: B More... Second degree heart block [I44.1] INVALID FOR* Priority: A More... Atherosclerosis of coronary artery bypass graft*INVALID FOR* Priority: A More... More... More... More... Hypoxia [R09.02] INVALID FOR* Chronic bilateral low back pain with left-sided*INVALID FOR* Priority: M Bilateral hip pain [M25.551, M25.552] INVALID FOR* Priority: M Paroxysmal atrial fibrillation (HCC) [I48.0] INVALID FOR* Priority: A More... 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 More... 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 More... Current use of proton pump inhibitor [Z79.899] INVALID FOR* More... Ulnar neuropathy at elbow of left upper extremi*INVALID FOR* Priority: M More... Hemoptysis [R04.2] INVALID FOR* Priority: A More... At high risk for falls [Z91.81] INVALID FOR* Encounter Status:Closed by Mahesh PEGUERO RN on 01/20/18 PROGRESS Observed: 01/19/2018 Status: COMPLETED Source: [place] 11:08 AM [facility] RE[facility] ID: [id number] Author: Bertrand Leon Service: (none) Author Type: Physician Type: Progress Notes Filed: 01/19/2018 2:30 PM Note Text: Chief Complaint Patient presents with: Physical HPI Mayco Kendrick is a 77 year old male who presents here today for Chronic Medical Conditions.. Patient with extensive and complex Medical Hx as reviewed and documented below. Since last being in has had carpal tunnel and unlar nerve entrapment surgeries done on both upper extremities per Dr. Chavez. Has done well with this. Was in the ER once for left sided chest pain going into th jaw and had negative cardiac workup. Past medical history, appointments, medications, allergies reviewed. Previous Medical History PAST MEDICAL HISTORY Diagnosis Date - Abdominal pain 08/11/2014 w some distention. Appears chronic -abdominal ultrasound - ACUTE GASTRITIS W/O HEMORRHAGE 12/21/2006 - Acute on chronic diastolic CHF (congestive heart failure), NYHA class 4 (HCC) 03/08/2014 H/o HFpEF with diastolic dysfunction, ICM 55% EF Presents with CP and SOB Weight gain 30lbs in last 3 months Currently SOB and volume overload, in setting of unstable angina (killip 3) Plan Continue Diuresis As above for possible restrictive CM - ALLERGIC RHINITIS NOS 05/03/2006 - Asthma - ASTHMA UNSPECIFIED - Benign neoplasm of colon - Benign neoplasm of rectum and anal canal - Bilateral leg edema 11/05/2008 - Bradycardia 08/11/2014 Patient with sinus bradycardia with Type 1 Mobitz since 2011 however Pulse dropping to high 30s with dizziness Plan: Place on tele for monitoring EP evaluation for ? Pacemaker with new onset of symptoms 2/2 to relative hypotension vs bradycardia Daily EKGs to evaluate rhythm, still appears to be Mobitz type 1 Keep K and Mag above 4 and 2 respectively - Carpal tunnel syndrome 03/28/2010 - Chest pain 07/26/2014 73 year old male transferred from OSH for Unstable angina, chest pain on a Nitro and heparin Drip. First set of enzymes was negative. No ST-T wave chanes on EKG Mobitz type 1 AV block (chronic) ALVERTO score 5 With associated SOB and Pulmonary edema on CXR (Killip class 3) Found not to have acute plaque rupture ?Restrictive cardiomyopathy Will need LHC (LVEDP) and RHC tomorrow - per Dr. Pepe would like Dr. Randall PLAN NPO at midnight Call Cath Charge in AM to confirm schedule and attending Continue diuresis Additionally: - ASA - Stop plavix - reduce Atorvastatin to 20mg (home dose, last LDL ~55) - Losartan - Chest pain with painful respiration 08/11/2014 Chest heaviness. Unstable angina ? 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 Resume as the bp normalizes. - IV lasix 40 mg once for now -resume home dose of lasix AND torsemide PO in the morning - Frequency of urination 02/01/2014 - GERD (gastroesophageal reflux disease) 09/05/2014 - Hand fracture, left 10/13/2011 - Heart block AV complete 05/11/2013 - Hip fracture, right (HCC) 09/22/2012 Treated medically - History of prostatitis 04/11/2013 - Hyperlipidemia - Hypertension - Hypertrophy of nasal turbinates 07/06/2012 consult with [facility] 06/29/2012 Plan to schedule ablation of inferior turbinates @ [facility]. - Insomnia, unspecified 06/17/2011 [facility] report reviewed October 22, 2011 Matt Taylor MD - Leg swelling - Lumbago 05/11/2007 - MALIGN NEOPL PROSTATE - Mobitz (type) I (Wenckebach's) atrioventricular block 07/26/[address] Eric Go in 2012. Chronic conduction abnormality. does not need a pacemaker. Here with concern for ACS EKG: mobitz type 1, unchanged from prior, no ST-T wave changes BP stable Plan: Monitor Avoiding BB - Morbid obesity 06/02/2011 07/08/2017: H: 72 in, W: 358 lb, BMI 48.54. 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 01/18/2014 - Type II or unspecified type diabetes mellitus without mention of complication, not stated as uncontrolled - Unspecified sleep apnea CPAP 18 with 1L - Urgency of urination 02/01/2014 Previous Surgical History PAST SURGICAL HISTORY Procedure Laterality Date - CABG, ARTERY-VEIN, TWO 1998 CABG, two grafts - CHOLECYSTECTOMY HX 10/14/2015 gangrenous gallbladder - COLONOSCOP W/ OR W/O [facility] SPEC 01/27/2005 Colonoscopy - COLONOSCOP W/ OR W/O [facility] SPEC 12/21/2006` repeat in -2011 - COLONOSCOP W/ OR W/O [facility] SPEC 05/18/2012 Colonoscopy repeat 5 years - COLONOSCOPY 12/29/2016 repeat 10 yrs - EGD 12/29/2016 - EGD W/O [facility] SPECIMEN W/BX 12/21/06 - EGD W/O OR W/BRUSH/WASH 01/27/2005 EGD - EGD W/O OR W/BRUSH/WASH 11/21/14 EGD - OPEN CORONARY ENDARTERECTOMY 1999 Angioplasty with stent placement - PACEMAKER 2016 - REMOVAL OF TONSILS,<12 Y/O Tonsillectomy - REPAIR RETINAL DETACH, C 10/2010 - REVISE MEDIAN N/CARPAL TUNNEL SURG Right 09/10/2017 Right CTR - REVISE ULNAR NERVE AT ELBOW Right 09/10/2017 Right ulnar nerve decompression - TOTAL HIP REPLACEMENT 2000 Hip replacement, total, right - TOTAL HIP REPLACEMENT 2001 Hip replacement, total, left Family History FAMILY HISTORY Problem Relation Age of Onset - Heart Father - Cancer Mother Lung - Heart Paternal Grandfather - Heart Brother Patient Allergies ALLERGIES Allergen Reactions - Lisinopril Other: See Comments Metallic taste in mouth. - Sertraline GI Upset Current Medications Current Outpatient Prescriptions on File Prior to Visit: HYDROcodone-acetaminophen (NORCO) 5-325 mg per tablet Take 1 tablet by mouth every 6 hours as needed for up to 7 days. ammonium lactate (LAC-HYDRIN) 12 % cream Apply 1 application to affected area twice daily as needed. rivaroxaban (XARELTO) 20 mg tablet Take 1 tablet by mouth daily with dinner. sucralfate (CARAFATE) 1 gram tablet Take 1 tablet by mouth three times daily before meals. 30 minutes before meals. pantoprazole DR (PROTONIX) 40 mg tablet Take 1 tablet by mouth daily before breakfast. Take on empty stomach, 1/2 hr before meal. Per Gastroenterology furosemide (LASIX) 80 mg tablet One PO daily in AM furosemide (LASIX) 40 mg tablet One PO daily at dinner oxybutynin (DITROPAN) 5 mg tablet Take 1 tablet by mouth three times daily. glimepiride (AMARYL) 1 mg tablet Take 1 tablet by mouth daily with breakfast. metoprolol tartrate, short acting, (LOPRESSOR) 25 mg tablet Take 1 tablet by mouth every 12 hours. ketoconazole (NIZORAL) 2 % shampoo Use as a body wash, most specifically the chest, daily for itching and flaking; may keep in own shower atorvastatin (LIPITOR) 80 mg tablet Take 1 tablet by mouth once daily. tamsulosin ER (FLOMAX) 0.4 mg cp24 Take 1 capsule by mouth every evening. for prostate metFORMIN (GLUCOPHAGE) 500 mg tablet Take 1 tablet by mouth three times daily with meals. nitroglycerin sublingual (NITROSTAT) 0.4 mg SL tablet Take 1 tablet by mouth as needed. for chest pain; dissolve on tongue. If no pain relief call 911. Ranitidine HCl 300 mg tablet Take with evening meal. magnesium oxide (MAG-OX) 400 mg tablet Take 1 tablet by mouth once daily. COMPOUNDED PRESCRIPTION Please eval and fix any issues with walker.Dx: I50.33, I25.10, E66.01, M54.42, M25.551 bisacodyl (DULCOLAX) 10 mg supp 1 Suppository by RECTAL route once daily as needed (for constipation). polyethylene glycol 3350 (MIRALAX, GLYCOLAX) 17 gram/dose powder 17 g up to twice daily as needed prn constipation aspirin, enteric coated (ADULT LOW DOSE ASPIRIN) 81 mg EC tablet Take 1 tablet by mouth once daily. COMPOUNDED PRESCRIPTION Glucometer high/low test solution for accucheck. DX: DM COMPOUNDED PRESCRIPTION Please perform a nocturnal oximetry on room air on BiPAP. Diagnosis: HypoxiaPlease fax results to [phone] Attn: Glendy Lancets (ACCU-CHEK FASTCLIX) lancets Test glucose twice weekly. Dx: 250.00. Insulin Use: no blood sugar diagnostic test strip testing twice weekly dx 250.00 insulin no Blood-Glucose Meter, Drum-type (ACCU-CHEK COMPACT PLUS CARE) kit Test fasting blood sugar 1-2 times a week and 2 hrs post meal 1- 2 times a week. Blood-Glucose Meter (ONETOUCH ULTRA 2) monitoring kit 1 Each as needed. One Touch Meter Kit Diagnosis: Diabetes Mellitus Blood Glucose Control, Normal (OT ULTRA/FASTTRACK CONTROL) soln Test controls as needed. COMPOUNDED PRESCRIPTION BIPAP setting: IPAP 22cm water with heated humidification EPAP setting of 16cm with supplemental oxygen bleed in at 2lt per minute. Mask (per patient preference) and supplies for lifetime. Please add chin strap DX EDMOND 327.23 No current facility-administered medications on file prior to visit. 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 Alcohol use: Yes 31.5 oz/week Cans of Beer (12oz): 7, Mixed Drinks: 14 per week Comment: 2/beer/mixed drink daily-states no ETOH since 09/2017 Drug use: No Sexual activity: No Social History Narrative OARRS report reviewed October 22, 2011 Matt Taylor MD Review of Symptoms REVIEW OF SYSTEMS GENERAL: No weight loss, malaise or fevers NECK: Negative for lumps, goiter, pain and significant neck swelling RESPIRATORY: Negative for cough, hemoptysis, wheezing, COPD, dyspnea or shortness of breath. No hemoptysis for over a month. CARDIOVASCULAR: Negative for chest pain, hypertension, CHF or palpitations. Leg swelling controlled with diuretics and leg wraps. GI: No nausea, vomiting, or diarrhea and No heartburn or reflux symptoms : No history of dysuria or blood ENDOCRINE: Negative for cold or heat intolerance, polyuria, polydipsia and goiter. FBS: 140-170 NEURO: No history of headaches, syncope, paralysis, seizures or tremors EXAM: BP 136/62 (BP Site: Right Arm, BP Position: Sitting, BP Cuff Size: Large Adult) Pulse 78 Resp 20 Ht 183 cm (6' 0.05) Wt (!) 152.2 kg (335 lb 9.6 oz) BMI 45.46 kg/m? Last 5 Encounter Wt Readings: Date: Wt: 01/19/2018 152.2 kg (335 lb 9.6 oz) 01/07/2018 151.1 kg (333 lb 3.2 oz) 12/30/2017 151.5 kg (334 lb) 12/01/2017 151.2 kg (333 lb 4.8 oz) 11/30/2017 152.9 kg (337 lb) General Appearance: Well appearing, alert, in no acute distress, well-hydrated, well nourished., Morbidly obese. Eyes: Anicteric sclera. Pupils are equally round and reactive to light. Extraocular movements are intact. . Oropharynx: Lips, mucosa, and tongue normal, teeth and gums normal, oropharynx normal. Neck: Supple, no adenopathy; thyroid symmetric, normal size, no bruits. Lungs: Lungs clear to auscultation. No wheezing, rhonchi, rales. Heart: RRR without murmur, gallop, or rubs. No ectopy. Abdomen: Normal abdominal exam, Abdomen soft, non-tender. Bowel sounds normal. No masses, organomegaly. Extremities: No deformities, edema. Has chronic venous stasis changes. Musculoskeletal: Muscular strength intact, No joint swelling, deformity, or tenderness. Peripheral Pulses: Normal. Neurologic: Gait normal. Reflexes normal and symmetric. Sensation grossly intact.. Health Maintenance List DTAP,TDAP,TD(1 - Tdap) due on 07/31/2006 HBA1C due on 01/21/2018 DILATED RETINAL EXAM due on 04/08/2018 LDL due on 07/23/2018 DIABETIC FOOT EXAM due on 09/16/2018 COLORECTAL CANCER SCREENING,SEE MODIFIER due on 12/29/2026 ADULT PREVNAR-13 Completed INFLUENZA Completed PNEUMOVAX AGE 65 AND OVER WITH 5YR LOOKBACK Completed Data reviewed Component Latest Ref Rng AND Units 07/23/2017 12/30/2017 01/07/2018 WBC 3.70 - 11.00 k/uL 8.92 RBC 4.20 - 6.00 m/uL 4.91 Hemoglobin 13.0 - 17.0 g/dL 14.1 Hematocrit 39.0 - 51.0 % 44.5 MCV 80.0 - 100.0 fL 90.6 MCH 26.0 - 34.0 pG 28.7 MCHC 30.5 - 36.0 g/dL 31.7 RDW-CV 11.5 - 15.0 % 14.5 Platelet Count 150 - 400 k/uL 244 MPV 9.0 - 12.7 fL 10.5 Neut% % 63.6 Abs Neut (ANC) 1.45 - 7.50 k/uL 5.68 Lymph% % 20.4 Abs Lymph 1.00 - 4.00 k/uL 1.82 Kershaw% % 10.2 Abs [place]haw <0.87 k/uL 0.91 (H) Eosin% % 5.2 Abs Eosin <0.46 k/uL 0.46 (H) Baso% % 0.6 Abs Baso <0.11 k/uL 0.05 Nucleated Reds 0 /100 WBC 0.0 Absolute nRBC <0.01 k/uL <0.01 Diff Type Auto Diff Protein, Total 6.3 - 8.0 g/dL 7.6 Albumin 3.9 - 4.9 g/dL 4.0 Calcium 8.5 - 10.2 mg/dL 9.2 Bilirubin, Total 0.2 - 1.3 mg/dL 0.5 Alkaline Phosphatase 36 - 108 U/L 85 AST 14 - 40 U/L 22 Glucose 74 - 99 mg/dL 73 (L) BUN 9 - 24 mg/dL 15 Creatinine 0.73 - 1.22 mg/dL 0.90 Sodium 136 - 144 mmol/L 142 Potassium 3.7 - 5.1 mmol/L 3.9 Chloride 97 - 105 mmol/L 100 CO2 22 - 30 mmol/L 28 Anion Gap 9 - 18 mmol/L 14 ALT 10 - 54 U/L 19 eGFR- >60 eGFR-All Other Races . >60 Triglyceride 150 224 (A) HDL CHOLESTEROL 40 24 LDL Cholesterol 70 64 Hemoglobin A1C 5.6 6.8 (A) A/P ASSESSMENT/PLAN: 1. Controlled type 2 diabetes mellitus with diabetic nephropathy, without long-term current use of insulin (HCC) - ICD9: 250.40, 583.81, ICD10: E11.21 (primary diagnosis) Controlled. - Continue current medications - BP goal of <130/80 - LDL goal of <100 - Will check A1c 2. Hemoptysis - ICD9: 786.30, ICD10: R04.2 - Need to clarify with [facility] if patient taking xarelto or not 3. Essential hypertension, benign - ICD9: 401.1, ICD10: I10 - good control - Continue current medication(s) - Recommended regular aerobic exercise. - Recommend home blood pressure monitoring, to bring results in on next visit - Goal of BP <130/80 4. Mixed hyperlipidemia - ICD9: 272.2, ICD10: E78.2 - to be determined upon return of lab results - Continue current medication. - Encouraged following a low fat, low cholesterol diet. - Discussed the benefits of regular aerobic exercise and weight loss. - Encouraged following a low carbohydrate, healthy oil intake diet. 5. Acute on chronic diastolic CHF (congestive heart failure), NYHA class 4 (HCC) - ICD9: 428.33, 428.0, ICD10: I50.33 - Clinically stable no changes and cont f/u with cardio. 6. Mobitz (type) I (Wenckebach's) atrioventricular block - ICD9: 426.13, ICD10: I44.1 - Clinically stable cont cardio f/u 7. Coronary atherosclerosis due to lipid rich plaque - ICD9: 414.3, ICD10: I25.10, I25.83 - Clinically stable cont cardio f/u 8. 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 Paroxysmal atrial fibrillation (HCC) - ICD9: 427.31, ICD10: I48.0 - Clinically stable cont cardio f/u 10. Mild intermittent asthma without complication - ICD9: 493.90, ICD10: J45.20 Mild intermittent Asthma stable - Continue current meds - Avoidance of triggers recommended - Cont pulm f/u 11. Bilateral leg edema - ICD9: 782.3, ICD10: R60.0 - stable with current management no changes 12. Gastroesophageal reflux disease without esophagitis - ICD9: 530.81, ICD10: K21.9 - Stable cont f/u with Gastro. Check Mg 13. Depression, unspecified depression type - ICD9: 311, ICD10: F32.9 - Clinically stable no chanegs 14. EDMOND (obstructive sleep apnea) - ICD9: 327.23, ICD10: G47.33 - cont BiPAP with benefit per patient. 15. Insomnia, unspecified type - ICD9: 780.52, ICD10: G47.00 - clinically stabble 16. Hypomagnesemia - ICD9: 275.2, ICD10: E83.42 - Will check Mg level 17. Morbid obesity due to excess calories ([facility]) - ICD9: 278.01, ICD10: E66.01 - Patient to try to work on some weight loss. 18. At high risk for falls - ICD9: V15.88, ICD10: Z91.81 - Script given for rollater due to Obesity, CHF, CAD, Low Back pain, COPD and risk for falls. f/u 4 months WAE sooner if issues. Time with patient face to face was 40 min Bertrand Leon MD CNOV Observed: 01/19/2018 Status: COMPLETED Source: [place] 10:40 AM [facility] Office Visit (FAMPWS) MAYCO EKNDRICK ([id number]) 1940 M NFR Date Time Provider Department 01/19/18 10:40 AM BERTRAND LEON FAMPWS During your visit today, we recorded the following information about you: Pulse Respiration Blood pressure Weight 78/minute 20/minute 136/62 152.2 kg Height 1.83 m Bertrand Leon MD 01/19/2018 2:30 PM Signed Chief Complaint Patient presents with: Physical HPI Mayco Kendrick is a 77 year old male who presents here today for Chronic Medical Conditions.. Patient with extensive and complex Medical Hx as reviewed and documented below. Since last being in has had carpal tunnel and unlar nerve entrapment surgeries done on both upper extremities per Dr. Chavez. Has done well with this. Was in the ER once for left sided chest pain going into th jaw and had negative cardiac workup. Past medical history, appointments, medications, allergies reviewed. Previous Medical History PAST MEDICAL HISTORY Diagnosis Date - Abdominal pain 08/11/2014 w some distention. Appears chronic -abdominal ultrasound - ACUTE GASTRITIS W/O HEMORRHAGE 12/21/2006 - Acute on chronic diastolic CHF (congestive heart failure), NYHA class 4 (HCC) 03/08/2014 H/o HFpEF with diastolic dysfunction, ICM 55% EF Presents with CP and SOB Weight gain 30lbs in last 3 months Currently SOB and volume overload, in setting of unstable angina (killip 3) Plan Continue Diuresis As above for possible restrictive CM - ALLERGIC RHINITIS NOS 05/03/2006 - Asthma - ASTHMA UNSPECIFIED - Benign neoplasm of colon - Benign neoplasm of rectum and anal canal - Bilateral leg edema 11/05/2008 - Bradycardia 08/11/2014 Patient with sinus bradycardia with Type 1 Mobitz since 2011 however Pulse dropping to high 30s with dizziness Plan: Place on tele for monitoring EP evaluation for ? Pacemaker with new onset of symptoms 2/2 to relative hypotension vs bradycardia Daily EKGs to evaluate rhythm, still appears to be Mobitz type 1 Keep K and Mag above 4 and 2 respectively - Carpal tunnel syndrome 03/28/2010 - Chest pain 07/26/2014 73 year old male transferred from OSH for Unstable angina, chest pain on a Nitro and heparin Drip. First set of enzymes was negative. No ST-T wave chanes on EKG Mobitz type 1 AV block (chronic) ALVERTO score 5 With associated SOB and Pulmonary edema on CXR (Killip class 3) Found not to have acute plaque rupture ?Restrictive cardiomyopathy Will need LHC (LVEDP) and RHC tomorrow - per Dr. Pepe would like Dr. Randall PLAN NPO at midnight Call Cath Charge in AM to confirm schedule and attending Continue diuresis Additionally: - ASA - Stop plavix - reduce Atorvastatin to 20mg (home dose, last LDL ~55) - Losartan - Chest pain with painful respiration 08/11/2014 Chest heaviness. Unstable angina ? 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 Resume as the bp normalizes. - IV lasix 40 mg once for now -resume home dose of lasix AND torsemide PO in the morning - Frequency of urination 02/01/2014 - GERD (gastroesophageal reflux disease) 09/05/2014 - Hand fracture, left 10/13/2011 - Heart block AV complete 05/11/2013 - Hip fracture, right ([facility]) 09/22/2012 Treated medically - History of prostatitis 04/11/2013 - Hyperlipidemia - Hypertension - Hypertrophy of nasal turbinates 07/06/2012 consult with [facility] 06/29/2012 Plan to schedule ablation of inferior turbinates @ [facility]. - Insomnia, unspecified 06/17/2011 O[facility] report reviewed October 22, 2011 Matt Taylor MD - Leg swelling - Lumbago 05/11/2007 - MALIGN NEOPL PROSTATE - Mobitz (type) I (Wenckebach's) atrioventricular block 07/26/[address] Eric Go in 2012. Chronic conduction abnormality. does not need a pacemaker. Here with concern for ACS EKG: mobitz type 1, unchanged from prior, no ST-T wave changes BP stable Plan: Monitor Avoiding BB - Morbid obesity 06/02/2011 07/08/2017: H: 72 in, W: 358 lb, BMI 48.54. 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 01/18/2014 - Type II or unspecified type diabetes mellitus without mention of complication, not stated as uncontrolled - Unspecified sleep apnea CPAP 18 with 1L - Urgency of urination 02/01/2014 Previous Surgical History PAST SURGICAL HISTORY Procedure Laterality Date - CABG, ARTERY-VEIN, TWO 1998 CABG, two grafts - CHOLECYSTECTOMY HX 10/14/2015 gangrenous gallbladder - COLONOSCOP W/ OR W/O [facility] SPEC 01/27/2005 Colonoscopy - COLONOSCOP W/ OR W/O [facility] SPEC 12/21/2006` repeat in -2011 - COLONOSCOP W/ OR W/O [facility] SPEC 05/18/2012 Colonoscopy repeat 5 years - COLONOSCOPY 12/29/2016 repeat 10 yrs - EGD 12/29/2016 - EGD W/O [facility] SPECIMEN W/BX 12/21/06 - EGD W/O OR W/BRUSH/WASH 01/27/2005 EGD - EGD W/O OR W/BRUSH/WASH 11/21/14 EGD - OPEN CORONARY ENDARTERECTOMY 1999 Angioplasty with stent placement - PACEMAKER 2017 - REMOVAL OF TONSILS,<12 Y/O Tonsillectomy - REPAIR RETINAL DETACH, C 10/2010 - REVISE MEDIAN N/CARPAL TUNNEL SURG Right 09/10/2017 Right CTR - REVISE ULNAR NERVE AT ELBOW Right 09/10/2017 Right ulnar nerve decompression - TOTAL HIP REPLACEMENT 2000 Hip replacement, total, right - TOTAL HIP REPLACEMENT 2001 Hip replacement, total, left Family History FAMILY HISTORY Problem Relation Age of Onset - Heart Father - Cancer Mother Lung - Heart Paternal Grandfather - Heart Brother Patient Allergies ALLERGIES Allergen Reactions - Lisinopril Other: See Comments Metallic taste in mouth. - Sertraline GI Upset Current Medications Current Outpatient Prescriptions on File Prior to Visit: HYDROcodone-acetaminophen (NORCO) 5-325 mg per tablet Take 1 tablet by mouth every 6 hours as needed for up to 7 days. ammonium lactate (LAC-HYDRIN) 12 % cream Apply 1 application to affected area twice daily as needed. rivaroxaban (XARELTO) 20 mg tablet Take 1 tablet by mouth daily with dinner. sucralfate (CARAFATE) 1 gram tablet Take 1 tablet by mouth three times daily before meals. 30 minutes before meals. pantoprazole DR (PROTONIX) 40 mg tablet Take 1 tablet by mouth daily before breakfast. Take on empty stomach, 1/2 hr before meal. Per Gastroenterology furosemide (LASIX) 80 mg tablet One PO daily in AM furosemide (LASIX) 40 mg tablet One PO daily at dinner oxybutynin (DITROPAN) 5 mg tablet Take 1 tablet by mouth three times daily. glimepiride (AMARYL) 1 mg tablet Take 1 tablet by mouth daily with breakfast. metoprolol tartrate, short acting, (LOPRESSOR) 25 mg tablet Take 1 tablet by mouth every 12 hours. ketoconazole (NIZORAL) 2 % shampoo Use as a body wash, most specifically the chest, daily for itching and flaking; may keep in own shower atorvastatin (LIPITOR) 80 mg tablet Take 1 tablet by mouth once daily. tamsulosin ER (FLOMAX) 0.4 mg cp24 Take 1 capsule by mouth every evening. for prostate metFORMIN (GLUCOPHAGE) 500 mg tablet Take 1 tablet by mouth three times daily with meals. nitroglycerin sublingual (NITROSTAT) 0.4 mg SL tablet Take 1 tablet by mouth as needed. for chest pain; dissolve on tongue. If no pain relief call 911. Ranitidine HCl 300 mg tablet Take with evening meal. magnesium oxide (MAG-OX) 400 mg tablet Take 1 tablet by mouth once daily. COMPOUNDED PRESCRIPTION Please eval and fix any issues with walker.Dx: I50.33, I25.10, E66.01, M54.42, M25.551 bisacodyl (DULCOLAX) 10 mg supp 1 Suppository by RECTAL route once daily as needed (for constipation). polyethylene glycol 3350 (MIRALAX, GLYCOLAX) 17 gram/dose powder 17 g up to twice daily as needed prn constipation aspirin, enteric coated (ADULT LOW DOSE ASPIRIN) 81 mg EC tablet Take 1 tablet by mouth once daily. COMPOUNDED PRESCRIPTION Glucometer high/low test solution for accucheck. DX: DM COMPOUNDED PRESCRIPTION Please perform a nocturnal oximetry on room air on BiPAP. Diagnosis: HypoxiaPlease fax results to [phone] Attn: Glendy Lancets (ACCU-CHEK FASTCLIX) lancets Test glucose twice weekly. Dx: 250.00. Insulin Use: no blood sugar diagnostic test strip testing twice weekly dx 250.00 insulin no Blood-Glucose Meter, Drum-type (ACCU-CHEK COMPACT PLUS CARE) kit Test fasting blood sugar 1-2 times a week and 2 hrs post meal 1-2 times a week. Blood-Glucose Meter (ONETOUCH ULTRA 2) monitoring kit 1 Each as needed. One Touch Meter Kit Diagnosis: Diabetes Mellitus Blood Glucose Control, Normal (OT ULTRA/FASTTRACK CONTROL) soln Test controls as needed. COMPOUNDED PRESCRIPTION BIPAP setting: IPAP 22cm water with heated humidification EPAP setting of 16cm with supplemental oxygen bleed in at 2lt per minute. Mask (per patient preference) and supplies for lifetime. Please add chin strap DX EDMOND 327.23 No current facility-administered medications on file prior to visit. 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 Alcohol use: Yes 31.5 oz/week Cans of Beer (12oz): 7, Mixed Drinks: 14 per week Comment: 2/beer/mixed drink daily-states no ETOH since 09/2017 Drug use: No Sexual activity: No Social History Narrative OARRS report reviewed October 22, 2011 Matt Taylor MD Review of Symptoms REVIEW OF SYSTEMS GENERAL: No weight loss, malaise or fevers NECK: Negative for lumps, goiter, pain and significant neck swelling RESPIRATORY: Negative for cough, hemoptysis, wheezing, COPD, dyspnea or shortness of breath. No hemoptysis for over a month. CARDIOVASCULAR: Negative for chest pain, hypertension, CHF or palpitations. Leg swelling controlled with diuretics and leg wraps. GI: No nausea, vomiting, or diarrhea and No heartburn or reflux symptoms : No history of dysuria or blood ENDOCRINE: Negative for cold or heat intolerance, polyuria, polydipsia and goiter. FBS: 140-170 NEURO: No history of headaches, syncope, paralysis, seizures or tremors EXAM: BP 136/62 (BP Site: Right Arm, BP Position: Sitting, BP Cuff Size: Large Adult) Pulse 78 Resp 20 Ht 183 cm (6' 0.05) Wt (!) 152.2 kg (335 lb 9.6 oz) BMI 45.46 kg/m? Last 5 Encounter Wt Readings: Date: Wt: 01/19/2018 152.2 kg (335 lb 9.6 oz) 01/07/2018 151.1 kg (333 lb 3.2 oz) 12/30/2017 151.5 kg (334 lb) 12/01/2017 151.2 kg (333 lb 4.8 oz) 11/30/2017 152.9 kg (337 lb) General Appearance: Well appearing, alert, in no acute distress, well-hydrated, well nourished., Morbidly obese. Eyes: Anicteric sclera. Pupils are equally round and reactive to light. Extraocular movements are intact. . Oropharynx: Lips, mucosa, and tongue normal, teeth and gums normal, oropharynx normal. Neck: Supple, no adenopathy; thyroid symmetric, normal size, no bruits. Lungs: Lungs clear to auscultation. No wheezing, rhonchi, rales. Heart: RRR without murmur, gallop, or rubs. No ectopy. Abdomen: Normal abdominal exam, Abdomen soft, non-tender. Bowel sounds normal. No masses, organomegaly. Extremities: No deformities, edema. Has chronic venous stasis changes. Musculoskeletal: Muscular strength intact, No joint swelling, deformity, or tenderness. Peripheral Pulses: Normal. Neurologic: Gait normal. Reflexes normal and symmetric. Sensation grossly intact.. Health Maintenance List DTAP,TDAP,TD(1 - Tdap) due on 07/31/2006 HBA1C due on 01/21/2018 DILATED RETINAL EXAM due on 04/08/2018 LDL due on 07/23/2018 DIABETIC FOOT EXAM due on 09/16/2018 COLORECTAL CANCER SCREENING,SEE MODIFIER due on 12/29/2026 ADULT PREVNAR-13 Completed INFLUENZA Completed PNEUMOVAX AGE 65 AND OVER WITH 5YR LOOKBACK Completed Data reviewed Component Latest Ref Rng AND Units 07/23/2017 12/30/2017 01/07/2018 WBC 3.70 - 11.00 k/uL 8.92 RBC 4.20 - 6.00 m/uL 4.91 Hemoglobin 13.0 - 17.0 g/dL 14.1 Hematocrit 39.0 - 51.0 % 44.5 MCV 80.0 - 100.0 fL 90.6 MCH 26.0 - 34.0 pG 28.7 MCHC 30.5 - 36.0 g/dL 31.7 RDW-CV 11.5 - 15.0 % 14.5 Platelet Count 150 - 400 k/uL 244 MPV 9.0 - 12.7 fL 10.5 Neut% % 63.6 Abs Neut (ANC) 1.45 - 7.50 k/uL 5.68 Lymph% % 20.4 Abs Lymph 1.00 - 4.00 k/uL 1.82 Kershaw% % 10.2 Abs Kershaw <0.87 k/uL 0.91 (H) Eosin% % 5.2 Abs Eosin <0.46 k/uL 0.46 (H) Baso% % 0.6 Abs Baso <0.11 k/uL 0.05 Nucleated Reds 0 /100 WBC 0.0 Absolute nRBC <0.01 k/uL <0.01 Diff Type Auto Diff Protein, Total 6.3 - 8.0 g/dL 7.6 Albumin 3.9 - 4.9 g/dL 4.0 Calcium 8.5 - 10.2 mg/dL 9.2 Bilirubin, Total 0.2 - 1.3 mg/dL 0.5 Alkaline Phosphatase 36 - 108 U/L 85 AST 14 - 40 U/L 22 Glucose 74 - 99 mg/dL 73 (L) BUN 9 - 24 mg/dL 15 Creatinine 0.73 - 1.22 mg/dL 0.90 Sodium 136 - 144 mmol/L 142 Potassium 3.7 - 5.1 mmol/L 3.9 Chloride 97 - 105 mmol/L 100 CO2 22 - 30 mmol/L 28 Anion Gap 9 - 18 mmol/L 14 ALT 10 - 54 U/L 19 eGFR- >60 eGFR-All Other Races . >60 Triglyceride 150 224 (A) HDL CHOLESTEROL 40 24 LDL Cholesterol 70 64 Hemoglobin A1C 5.6 6.8 (A) A/P ASSESSMENT/PLAN: 1. Controlled type 2 diabetes mellitus with diabetic nephropathy, without long-term current use of insulin (HCC) - ICD9: 250.40, 583.81, ICD10: E11.21 (primary diagnosis) Controlled. - Continue current medications - BP goal of <130/80 - LDL goal of <100 - Will check A1c 2. Hemoptysis - ICD9: 786.30, ICD10: R04.2 - Need to clarify with [facility] if patient taking xarelto or not 3. Essential hypertension, benign - ICD9: 401.1, ICD10: I10 - good control - Continue current medication(s) - Recommended regular aerobic exercise. - Recommend home blood pressure monitoring, to bring results in on next visit - Goal of BP <130/80 4. Mixed hyperlipidemia - ICD9: 272.2, ICD10: E78.2 - to be determined upon return of lab results - Continue current medication. - Encouraged following a low fat, low cholesterol diet. - Discussed the benefits of regular aerobic exercise and weight loss. - Encouraged following a low carbohydrate, healthy oil intake diet. 5. Acute on chronic diastolic CHF (congestive heart failure), NYHA class 4 (HCC) - ICD9: 428.33, 428.0, ICD10: I50.33 - Clinically stable no changes and cont f/u with cardio. 6. Mobitz (type) I (Wenckebach's) atrioventricular block - ICD9: 426.13, ICD10: I44.1 - Clinically stable cont cardio f/u 7. Coronary atherosclerosis due to lipid rich plaque - ICD9: 414.3, ICD10: I25.10, I25.83 - Clinically stable cont cardio f/u 8. 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 Paroxysmal atrial fibrillation (HCC) - ICD9: 427.31, ICD10: I48.0 - Clinically stable cont cardio f/u 10. Mild intermittent asthma without complication - ICD9: 493.90, ICD10: J45.20 Mild intermittent Asthma stable - Continue current meds - Avoidance of triggers recommended - Cont pulm f/u 11. Bilateral leg edema - ICD9: 782.3, ICD10: R60.0 - stable with current management no changes 12. Gastroesophageal reflux disease without esophagitis - ICD9: 530.81, ICD10: K21.9 - Stable cont f/u with Gastro. Check Mg 13. Depression, unspecified depression type - ICD9: 311, ICD10: F32.9 - Clinically stable no chanegs 14. EDMOND (obstructive sleep apnea) - ICD9: 327.23, ICD10: G47.33 - cont BiPAP with benefit per patient. 15. Insomnia, unspecified type - ICD9: 780.52, ICD10: G47.00 - clinically stabble 16. Hypomagnesemia - ICD9: 275.2, ICD10: E83.42 - Will check Mg level 17. Morbid obesity due to excess calories (HCC) - ICD9: 278.01, ICD10: E66.01 - Patient to try to work on some weight loss. 18. At high risk for falls - ICD9: V15.88, ICD10: Z91.81 - Script given for rollater due to Obesity, CHF, CAD, Low Back pain, COPD and risk for falls. f/u 4 months WAE sooner if issues. Time with patient face to face was 40 min Bertrand Leon MD Referring Provider: BERTRAND LEON [[id number]] Allergies As of Date: 01/19/2018 Noted Allergy Reaction LISINOPRIL 05/31/2014 14 - Other: See Comments Comments: Metallic taste in mouth. SERTRALINE 05/02/2013 8 - GI Upset Date Reviewed: 01/19/2018 Reviewed by: Bertrand Leon - Fully Assessed Reason for Visit: Physical [83] Primary Visit Diagnosis:Controlled type 2 diabetes mellitus with diabetic nephropathy, without long-term current use of insulin (HCC) [E11.21] Other Visit Diagnoses:Hemoptysis [R04.2] Essential hypertension, benign [I10] Mixed hyperlipidemia [E78.2] Acute on chronic diastolic CHF (congestive heart failure), NYHA class 4 (HCC) [I50.33] Mobitz (type) I (Wenckebach's) atrioventricular block [I44.1] Coronary atherosclerosis due to lipid rich plaque [I25.10, I25.83] 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) [I25.700] Paroxysmal atrial fibrillation (HCC) [I48.0] Mild intermittent asthma without complication [J45.20] Bilateral leg edema [R60.0] Gastroesophageal reflux disease without esophagitis [K21.9] Depression, unspecified depression type [F32.9] EDMOND (obstructive sleep apnea) [G47.33] Insomnia, unspecified type [G47.00] Hypomagnesemia [E83.42] Morbid obesity due to excess calories (HCC) [E66.01] At high risk for falls [Z91.81] Order(s):COMPOUNDED PRESCRIPTIONRollator, # one Dx: I50.33, I25.700, I48.0, J45.20, E66.01, M54.42, M25.551, Z91.81Disp: 1 DeviceRfl: 0 Prescriptions as of 01/19/2018 Sig: HYDROCODONE 5 MG-ACETAMINOPHE* Take 1 tablet by mouth every * AMMONIUM LACTATE 12 % TOPICAL* Apply 1 application to affect* RIVAROXABAN 20 MG TABLET Take 1 tablet by mouth daily * SUCRALFATE 1 GRAM TABLET Take 1 tablet by mouth three * PANTOPRAZOLE 40 MG TABLET,DEL* Take 1 tablet by mouth daily * FUROSEMIDE 80 MG TABLET One PO daily in AM FUROSEMIDE 40 MG TABLET One PO daily at dinner OXYBUTYNIN CHLORIDE 5 MG TABL* Take 1 tablet by mouth three * GLIMEPIRIDE 1 MG TABLET Take 1 tablet by mouth daily * METOPROLOL TARTRATE 25 MG TAB* Take 1 tablet by mouth every * KETOCONAZOLE 2 % SHAMPOO Use as a body wash, most spec* ATORVASTATIN 80 MG TABLET Take 1 tablet by mouth once d* TAMSULOSIN 0.4 MG CAPSULE Take 1 capsule by mouth every* METFORMIN 500 MG TABLET Take 1 tablet by mouth three * NITROGLYCERIN 0.4 MG SUBLINGU* Take 1 tablet by mouth as nee* RANITIDINE 300 MG TABLET Take with evening meal. MAGNESIUM OXIDE 400 MG TABLET Take 1 tablet by mouth once d* COMPOUNDED PRESCRIPTION Please eval and fix any issue* BISACODYL 10 MG RECTAL SUPPOS* 1 Suppository by RECTAL route* POLYETHYLENE GLYCOL 3350 17 G* 17 g up to twice daily as nee* ASPIRIN 81 MG TABLET,DELAYED * Take 1 tablet by mouth once d* COMPOUNDED PRESCRIPTION Glucometer high/low test solu* COMPOUNDED PRESCRIPTION Please perform a nocturnal ox* LANCETS Test glucose twice weekly. Dx* BLOOD SUGAR DIAGNOSTIC STRIPS testing twice weekly dx 250* BLOOD-GLUCOSE METER, DRUM-TYP* Test fasting blood sugar 1-2 * BLOOD-GLUCOSE METER KIT 1 Each as needed. One Touch M* BLOOD GLUCOSE CONTROL, NORMAL* Test controls as needed. * COMPOUNDED PRESCRIPTION BIPAP setting: IPAP 22cm wate* COMPOUNDED PRESCRIPTION Rollator, # one Dx: I50.33, I* Problem List As Of Date 01/19/2018 Noted Resolved Mild intermittent asthma without complication [* Priority: A MALIGN NEOPL PROSTATE [C61] Priority: B More... Type II or unspecified type diabetes mellitus w* 01/18/2014 Allergic rhinitis, cause unspecified [J30.9] INVALID FOR* Priority: B More... Personal history of colonic polyps [Z86.010] Priority: C More... Lumbago [M54.5] INVALID FOR* Priority: M Bilateral leg edema [R60.0] INVALID FOR* Priority: A Carpal tunnel syndrome, bilateral [G56.03] INVALID FOR* Priority: M More... Essential hypertension, benign [I10] INVALID FOR* Priority: A More... Insomnia, unspecified [G47.00] INVALID FOR* Priority: B More... Benign neoplasm of rectum and anal canal [D12.8*INVALID FOR* Priority: C Diverticulosis of colon (without mention of hem*INVALID FOR* Priority: C Hypertrophy of nasal turbinates [J34.3] INVALID FOR* Priority: C More... 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 More... More... EDMOND (obstructive sleep apnea) [G47.33] INVALID FOR* Priority: B More... Mobitz (type) I (Wenckebach's) atrioventricular*INVALID FOR* Priority: A More... More... Mixed hyperlipidemia [E78.2] INVALID FOR* Priority: A More... DVT prophylaxis [GYD6048] INVALID FOR*07/26/2014 More... More... More... More... More... More... Bradycardia [R00.1] INVALID FOR* Priority: A More... Venous stasis dermatitis of both lower extremit*INVALID FOR* Priority: B Counseling and coordination of care [Z71.89] INVALID FOR*04/12/2015 More... Hypomagnesemia [E83.42] INVALID FOR* Priority: B Diabetic eye exam (HCC) [Z01.00, E11.9] INVALID FOR* Priority: A More... Dry mouth [R68.2] INVALID FOR* Priority: B Noncompliance [Z91.19] INVALID FOR* Gastroesophageal reflux disease without esophag*INVALID FOR* Priority: A Coronary atherosclerosis due to lipid rich plaq*INVALID FOR* Priority: A Morbid obesity due to excess calories (HCC) [E6*INVALID FOR* Priority: B More... Essential tremor [G25.0] INVALID FOR* Priority: B Chronic cough [R05] INVALID FOR* Priority: B Well adult exam [Z00.00] INVALID FOR*01/07/2018 Priority: E More... Controlled type 2 diabetes mellitus with diabet*INVALID FOR* Priority: A Depression [F32.9] INVALID FOR* Priority: A Multiple open wounds of lower leg [S81.809A] INVALID FOR* Priority: D Colon cancer screening [Z12.11] INVALID FOR* Chest pain [R07.9] INVALID FOR* Priority: B More... Second degree heart block [I44.1] INVALID FOR* Priority: A More... Atherosclerosis of coronary artery bypass graft*INVALID FOR* Priority: A More... More... More... More... Hypoxia [R09.02] INVALID FOR* Chronic bilateral low back pain with left-sided*INVALID FOR* Priority: M Bilateral hip pain [M25.551, M25.552] INVALID FOR* Priority: M Paroxysmal atrial fibrillation (HCC) [I48.0] INVALID FOR* Priority: A More... 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 More... 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 More... Current use of proton pump inhibitor [Z79.899] INVALID FOR* More... Ulnar neuropathy at elbow of left upper extremi*INVALID FOR* Priority: M More... Hemoptysis [R04.2] INVALID FOR* Priority: A More... At high risk for falls [Z91.81] INVALID FOR* Prescriptions ordered this encounter Disp Refills Start End COMPOUNDED PRESCRIPTION 1 De* 0 01/19/2018 Class: Print RX Sig: Kristie, # one Dx: I50.33, I25.700, I48.0, J45.20, E66.01, M54.42, M25.551, Z91.81 Disposition: Return in about 4 months (around 05/22/2018) for complete PE. Follow-up and Disposition History Recorded Encounter Status:Closed by BERTRAND LEON on 01/19/18 NURSING PROG Observed: 01/14/2018 Status: COMPLETED Source: [place] 1:30 PM [facility] OTHER [facility]AMP[facility] REPOSITORY O ID: [id number] Author: Holli (Rn) TALA Zapata Service: Nursing Author Type: Registered Nurse Type: Nursing Progress Note Filed: 01/14/2018 1:51 PM Note Text: Nursing Progress Note Patient Name: Mayco Kendrick Patient Location: OR Surgery/ME Surgery D/C instructions given to Aris BARRIENTOSN at [facility] via telephone, made aware pt coming back with D/C paperwork and Rx for [place]. This note was completed by: Holli Zapata RN ANES POST Observed: 01/14/2018 Status: COMPLETED Source: [place] 1:30 PM [facility] OTHER CAMPUS REPOSITORY HNO ID: [id number] Author: Victor Hugo Koo Service: Anesthesiology Author Type: Anesthesiologist Type: Anesthesia PostOp Filed: 01/14/2018 2:29 PM Note Text: POST ANESTHESIA EVALUATION NOTE SERVICE DATE: 01/14/2018 SERVICE TIME: 1300 : 1940 Vitals: 01/14/18 0856 01/14/18 1118 01/14/18 1307 Temp: 36.8 ?C (98.2 ?F) 36.3 ?C (97.3 ?F) 36.4 ?C (97.5 ?F) 01/14/18 1153 01/14/18 1200 01/14/18 1215 01/14/18 1307 BP: 167/79 165/85 170/79 156/84 01/14/18 1145 01/14/18 1200 01/14/18 1215 01/14/18 1307 Pulse: 79 68 75 84 01/14/18 1145 01/14/18 1200 01/14/18 1215 01/14/18 1307 Resp: 16 16 16 16 01/14/18 1145 01/14/18 1200 01/14/18 1215 01/14/18 1307 SpO2: 93% 96% 97% 92% Validated Vital Signs: Yes POST ANES STATUS: No apparent anesthetic complications. The patient is appropriately hydrated with stable respiratory and cardiovascular status. Patient has safe and adequate airway control. The patient has appropriate pain relief and no significant post operative nausea or vomiting. The patient has achieved baseline mental status. Further assessment by Anesthesia Service: None Other Remarks: SIGNATURE: Victor Hugo Koo MD PATIENT NAME: Mayco Kendrick DATE: January 14, 2018 TIME: 2:29 PM PAGER/CONTACT #: [id number] PT ED Observed: 01/14/2018 Status: COMPLETED Source: [place] 1:25 PM [facility] REPOSITORY HNO ID: [id number] Author: Holli MoyerRn) TALA Zapata Service: Nursing Author Type: Registered Nurse Type: Patient Education Filed: 01/14/2018 1:42 PM Note Text: POST OP LEARNING RESPONSE INSTRUCTION PROVIDED TO: Patient and Family member METHOD OF INSTRUCTION: Written instruction - handouts Verbal instruction PATIENT / FAMILY RESPONSE: Verbalizes understanding of: INFECTION MANAGEMENT-Signs and symptoms of an infection and importance of contacting the physician MEDICATION PRESCRIBED-Accurate knowledge of prescribed medication prior to discharge PAIN MANAGEMENT-Effective strategies to manage pain in addition to pain medication POST-OPERATIVE INSTRUCTIONS-Correct actions to take to reduce postoperative complications PATIENT SAFETY PRINCIPLES SYMPTOM MANAGEMENT-Correct actions to take to manage symptoms associated with his/her disease/illness WORSENING CONDITION-Signs and symptoms of a worsening condition that warrant a call to the physician WOUND CARE-Correct procedure to perform wound care FOLLOW-UP PLAN: Patient instructed to call with any further issues Contact information given. SUPPLEMENTAL MATERIAL: None REFERRAL (RECOMMENDATION): None Electronically Signed By: Holli Zapata RN In Department: [facility] SURGERY NURSING PROG Observed: 01/14/2018 Status: COMPLETED Source: [place] 11:44 AM [facility] REPOSITORY HNO ID: [id number] Author: Cayla MoyerRn) TALA Myles Service: Nursing Author Type: Registered Nurse Type: Nursing Progress Note Filed: 01/14/2018 12:22 PM Note Text: 1130 Report from mikhail henry rn Pt without c/o pain 1142 c/o shivering 1143 Demerol 12.5mg iv 1150 Shivering stopped NURSING PROG Observed: 01/14/2018 Status: COMPLETED Source: [place] 11:34 AM [facility] REPOSITORY HNO ID: [id number] Author: Grecia MoyerRn) TALA Waters Service: (none) Author Type: Registered Nurse Type: Nursing Progress Note Filed: 01/14/2018 11:34 AM Note Text: Nursing Progress Note Patient Name: Mayco Kendrick Patient Location: OR Surgery/OR Surgery Pt stable and report given to TALA Shay for lunch coverage. Care relinquished. This note was completed by: Grecia Waters RN OPERATIVE NO Observed: 01/14/2018 Status: COMPLETED Source: [place] 11:23 AM [facility] OTHER CAMPUS REPOSITORY HNO ID: [id number] Author: Ruddy Chavez Service: Orthopaedic Surgery Author Type: Physician Type: Operative Report Filed: 01/14/2018 11:26 AM Note Text: OPERATIVE/PROCEDURE REPORT LOG ID: [id number] SURGERY/PROCEDURE DATE: 01/14/2018 INCISION/PROCEDURE START TIME: 10:15 AM INCISION CLOSE/PROCEDURE END TIME: 11:01 AM SURGEON(S)/PROCEDURALIST(S) AND CURTAIN DRIER(S): Surgeon(s) and Role: * Ruddy Chavez - Primary Physician Budget Officer: Joan Noe (Pa) Procedure(s): 1. Left ulnar nerve decompression. 2. Left carpal tunnel release. ? Anesthesia: General with local. ? Procedure Details: OPERATIVE INDICATIONS: This is a pleasant 77 year old male who had worsening, numbness, and tingling in the right hand and fingers. Electrodiagnostics showed severe bilateral cubital tunnel and moderately severe bilateral carpal tunnel. He exhausted conservative management on the left, and in the office, we discussed the risks, benefits, alternatives, and potential complications involving carpal tunnel release as well as ulnar nerve decompression at the elbow, and she wished to pursue surgical intervention. He had excellent previous results on the right side. ? OPERATIVE FINDINGS: Consistent with postoperative diagnosis. ? OPERATIVE PROCEDURE: On 01/14/2018, the patient was clearly identified in the preoperative area and marked accordingly on the Left palm and elbow by myself. He was taken to the operative suite and placed in the supine position with an armboard on the Left. He received 3 g of Ancef in the IV within 1 hour of incision or tourniquet. Anesthesia assumed care of the head and neck for the remainder of the case and began a MAC anesthetic. All other bony landmarks were appropriately padded in standard fashion. The upper extremity had a well-padded upper brachium tourniquet applied with Webril padding and set at 250 mmHg, but not yet inflated. The arm was then sterilely prepped and draped in standard fashion. An appropriate time-out was conducted and all in the room were in agreement, signed consent form was on the chart. The upper extremity was exsanguinated with an Esmarch bandage and the tourniquet was applied at 250 mmHg. local anesthetic with 1% lidocaine with 1:100,000 epi was provided at the elbow over the medial portion. An incision was made with a 15 blade localized over the medial epicondyle for approximately 3 cm. Skin bleeders were taken care of with bipolar electrocautery. Tenotomy scissors were used to bluntly dissect down to the fascia overlying the ulnar nerve. The antebrachial cutaneous nerve branches were identified and protected throughout the case. Using both a 15 blade as well as bipolar electrocautery, I divided the fascia overlying the ulnar nerve at the cubital tunnel and worked my way distally. The fascia was incised over the top of the nerve and appropriate nerve handling technique was used. Dissection was taken down to the fascia overlying the FCU muscle belly. Blunt dissection was taken to the fibers until the first motor branch was identified of the ulnar nerve. I then worked my way proximally. There was a leash of vessels overlying the nerve just proximal to the cubital tunnel. I continued the worked my way for 6 cm proximal to the medial condyle. The intermuscular septum was palpated but was not felt to be a point of irritation or constriction of the nerve. Now that the nerve was completely released, I brought the elbow through a full range of motion and there was no subluxation of the nerve. The wound was copiously irrigated and a moist Ray-Kortney was placed. ? I then focused my attention on the palm. Local anesthetic was provided at the palm and wrist with 1% lidocaine with 1:100,000 eip for total of 10 mL. A longitudinal incision was made with in line with the third web space from 1 cm distal of the wrist crease to Quezada's cardinal line. I used Capo Rakes to retract the soft tissues. Bipolar electrocautery was used for hemostasis. I bluntly dissected down with Littler scissors to distal edge of the transverse carpal ligament until a flash of fat was noted. I directly divided distal edge of the transverse carpal ligament with a #15 blade. Attention was then focused on the proximal portion and I used Littler scissors to bluntly dissect off the volar surface of the transverse carpal ligament. A carpal tunnel and median nerve protection guide was slid directly under the ligament for dilation and a second time for appropriate positioning, this was passed freely without any resistance. Subsequently, I selected a mini meniscotome [place] blade and slid this in the protective guide, completely dividing the transverse carpal ligament. Capo rakes were used to view up the wound to visualize for complete release and a [place] elevator was used to palpate for complete release. At this point, the tourniquet was taken down and hemostasis was observed both at the palm and at the elbow. The elbow wound was closed with 30 buried Biosyn sutures as well as 4-0 Biosyn subcuticular weave with Steri-Strips and tails. Xeroform gauze, sterile 4 x 4 gauze and ABDs was applied with Webril cotton roll. The palmar wound was copiously irrigated with normal saline and I closed with 3-0 nylons in horizontal mattress fashion for a total of 3. Xeroform gauze, sterile 4 x 4 gauze, Webril padding, and a fiberglass posterior splint was applied for the elbow with the wrist free. A light Kerlix and Cielo bandages was used for final bandage. There were no complications during the procedure(s). The patient was safely awoken and transferred to the Postanesthetic Care Unit in stable condition. ? ? Pre-Op/Pre-Procedure Diagnosis: 1. 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 Carpal tunnel syndrome, Left [G56.01] ? Post-Op/Post-Procedure Diagnosis: same ? Estimated Blood Loss: 0 ml ? Specimens: None ? Implantable Devices: None ? Drains: None ? Complications: None PARTICIPATION IN SURGERY/PROCEDURE: I performed the procedure with assistance. No qualified resident/fellow was available. SIGNATURE: Ruddy Chavez MD PATIENT NAME: Mayco Kendrick DATE: January 14, 2018 TIME: 11:23 AM PAGER/CONTACT #: [email or web address] PREOP Observed: 01/14/2018 Status: COMPLETED Source: [place] 8:47 AM CLINIC OTHER CAMPUS REPOSITORY HNO ID: [id number] Author: Victor Hugo Koo Service: Anesthesiology Author Type: Anesthesiologist Type: Anesthesia PreOp Filed: 01/14/2018 8:47 AM Note Text: ANESTHESIOLOGY DAY OF SURGERY NOTE SERVICE DATE: 01/14/2018 SERVICE TIME: 8:47 AM : 1940 Procedure(s) (LRB): DECOMPRESSION NERVE MEDIAN CARPAL TUNNEL (Left) DECOMPRESSION NERVE ULNAR ELBOW (Left) Surgeon(s): Ruddy Chavez Estimated body mass index is 45.19 kg/m? as calculated from the following: Height as of 01/07/18: 182.9 cm (6'). Weight as of 01/07/18: 151.1 kg (333 lb 3.2 oz). Most recent hematocrit and potassium results: Hematocrit 44.5 12/30/2017 Potassium 3.9 01/07/2018 ANES DOS/PREOP NOTE: Vitals: There were no vitals filed for this visit. ACTIVE PROBLEM LIST Mild Intermittent Asthma Without Complication MALIGN NEOPL PROSTATE Allergic Rhinitis, Cause Unspecified Personal History of Colonic Polyps Lumbago Bilateral Leg Edema Carpal Tunnel Syndrome Essential Hypertension, Benign Insomnia, Unspecified Benign Neoplasm of Rectum and Anal Canal Diverticulosis of Colon (Without Mention of Hemorrhage) Hypertrophy of Nasal Turbinates History of Prostatitis Heart block AV complete Frequency of Urination Urgency of Urination Acute On Chronic Diastolic Chf (Congestive Heart Failure), Nyha Class 4 ([facility]) [place] (Obstructive Sleep Apnea) Mobitz (Type) I (Wenckebach's) Atrioventricular Block Mixed Hyperlipidemia Bradycardia Venous Stasis Dermatitis of Both Lower Extremities Hypomagnesemia Diabetic Eye Exam (Formerly [facility]) Dry Mouth Noncompliance Gastroesophageal Reflux Disease Without Esophagitis Coronary Atherosclerosis Due to Lipid Rich Plaque Morbid Obesity Due to Excess Calories ([facility]) Essential Tremor Chronic Cough Controlled Type 2 Diabetes Mellitus With Diabetic Nephropathy, Without Long-Term Current Use of Insulin (Hcc) Depression Multiple open wounds of lower leg Colon Cancer Screening Chest Pain Second Degree Heart Block Atherosclerosis of Coronary Artery Bypass Graft of [place] Heart With Unstable Angina Pectoris (Hcc) Hypoxia Chronic Bilateral Low Back Pain With Left-Sided Sciatica Bilateral Hip Pain Paroxysmal Atrial Fibrillation (Hcc) Ulnar Neuropathy At Elbow of Right Upper Extremity Right Carpal Tunnel Syndrome Presence of Cardiac Pacemaker Esophagitis Albuminuria Carpal Tunnel Syndrome, Bilateral Ulnar Nerve Compression, Right Current Use of Proton Pump Inhibitor Left Carpal Tunnel Syndrome Ulnar Neuropathy At Elbow of Left Upper Extremity PAST MEDICAL HISTORY Diagnosis Date - Abdominal pain 08/11/2014 w some distention. Appears chronic -abdominal ultrasound - ACUTE GASTRITIS W/O HEMORRHAGE 12/21/2006 - Acute on chronic diastolic CHF (congestive heart failure), NYHA class 4 (HCC) 03/08/2014 H/o HFpEF with diastolic dysfunction, ICM 55% EF Presents with CP and SOB Weight gain 30lbs in last 3 months Currently SOB and volume overload, in setting of unstable angina (killip 3) Plan Continue Diuresis As above for possible restrictive CM - ALLERGIC RHINITIS NOS 05/03/2006 - Asthma - ASTHMA UNSPECIFIED - Benign neoplasm of colon - Benign neoplasm of rectum and anal canal - Bilateral leg edema 11/05/2008 - Bradycardia 08/11/2014 Patient with sinus bradycardia with Type 1 Mobitz since 2011 however Pulse dropping to high 30s with dizziness Plan: Place on tele for monitoring EP evaluation for ? Pacemaker with new onset of symptoms 2/2 to relative hypotension vs bradycardia Daily EKGs to evaluate rhythm, still appears to be Mobitz type 1 Keep K and Mag above 4 and 2 respectively - Carpal tunnel syndrome 03/28/2010 - Chest pain 07/26/2014 73 year old male transferred from OSH for Unstable angina, chest pain on a Nitro and heparin Drip. First set of enzymes was negative. No ST-T wave chanes on EKG Mobitz type 1 AV block (chronic) ALVERTO score 5 With associated SOB and Pulmonary edema on CXR (Killip class 3) Found not to have acute plaque rupture ?Restrictive cardiomyopathy Will need LHC (LVEDP) and RHC tomorrow - per Dr. Pepe would like Dr. Randall PLAN NPO at midnight Call Cath Charge in AM to confirm schedule and attending Continue diuresis Additionally: - ASA - Stop plavix - reduce Atorvastatin to 20mg (home dose, last LDL ~55) - Losartan - Chest pain with painful respiration 08/11/2014 Chest heaviness. Unstable angina ? 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 Resume as the bp normalizes. - IV lasix 40 mg once for now -resume home dose of lasix AND torsemide PO in the morning - Frequency of urination 02/01/2014 - GERD (gastroesophageal reflux disease) 09/05/2014 - Hand fracture, left 10/13/2011 - Heart block AV complete 05/11/2013 - Hip fracture, right (HCC) 09/22/2012 Treated medically - History of prostatitis 04/11/2013 - Hyperlipidemia - Hypertension - Hypertrophy of nasal turbinates 07/06/2012 consult with [facility] 06/29/2012 Plan to schedule ablation of inferior turbinates @ [facility]. - Insomnia, unspecified 06/17/2011 [facility] report reviewed October 22, 2011 Matt Taylor MD - Leg swelling - Lumbago 05/11/2007 - MALIGN NEOPL PROSTATE - Mobitz (type) I (Wenckebach's) atrioventricular block 07/26/[address] Eric Go in 2012. Chronic conduction abnormality. does not need a pacemaker. Here with concern for ACS EKG: mobitz type 1, unchanged from prior, no ST-T wave changes BP stable Plan: Monitor Avoiding BB - Morbid obesity 06/02/2011 07/08/2017: H: 72 in, W: 358 lb, BMI 48.54. 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 01/18/2014 - Type II or unspecified type diabetes mellitus without mention of complication, not stated as uncontrolled - Unspecified sleep apnea CPAP 18 with 1L - Urgency of urination 02/01/2014 PAST SURGICAL HISTORY Procedure Laterality Date - CABG, ARTERY-VEIN, TWO 1998 CABG, two grafts - CHOLECYSTECTOMY HX 10/14/2015 gangrenous gallbladder - COLONOSCOP W/ OR W/O BRS SPEC 01/27/2005 Colonoscopy - COLONOSCOP W/ OR W/O BRS SPEC 12/21/2006` repeat in -2011 - COLONOSCOP W/ OR W/O BRSH SPEC 05/18/2012 Colonoscopy repeat 5 years - COLONOSCOPY 12/29/2016 repeat 10 yrs - EGD 12/29/2016 - EGD W/O BRSH SPECIMEN W/BX 12/21/06 - EGD W/O OR W/BRUSH/WASH 01/27/2005 EGD - EGD W/O OR W/BRUSH/WASH 11/21/14 EGD - OPEN CORONARY ENDARTERECTOMY 1999 Angioplasty with stent placement - PACEMAKER 2016 - REMOVAL OF TONSILS,<12 Y/O Tonsillectomy - REPAIR RETINAL DETACH, C 10/2010 - REVISE MEDIAN N/CARPAL TUNNEL SURG Right 09/10/2017 Right CTR - REVISE ULNAR NERVE AT ELBOW Right 09/10/2017 Right ulnar nerve decompression - TOTAL HIP REPLACEMENT 2000 Hip replacement, total, right - TOTAL HIP REPLACEMENT 2001 Hip replacement, total, left FAMILY HISTORY Problem Relation Age of Onset - Heart Father - Cancer Mother Lung - Heart Paternal Grandfather - Heart Brother Social History: Social History Substance Use Topics - Smoking status: Never Smoker - Smokeless tobacco: Never Used Comment: Father smoked in childhood home. - Alcohol use 31.5 oz/week 7 Cans of Beer (12oz), 14 Mixed Drinks per week Comment: 2/beer/mixed drink daily-states no ETOH since 09/2017 No current facility-administered medications on file prior to encounter. Current Outpatient Prescriptions on File Prior to Encounter: ammonium lactate (LAC-HYDRIN) 12 % cream Apply 1 application to affected area twice daily as needed. rivaroxaban (XARELTO) 20 mg tablet Take 1 tablet by mouth daily with dinner. sucralfate (CARAFATE) 1 gram tablet Take 1 tablet by mouth three times daily before meals. 30 minutes before meals. pantoprazole DR (PROTONIX) 40 mg tablet Take 1 tablet by mouth daily before breakfast. Take on empty stomach, 1/2 hr before meal. Per Gastroenterology furosemide (LASIX) 80 mg tablet One PO daily in AM furosemide (LASIX) 40 mg tablet One PO daily at dinner oxybutynin (DITROPAN) 5 mg tablet Take 1 tablet by mouth three times daily. glimepiride (AMARYL) 1 mg tablet Take 1 tablet by mouth daily with breakfast. metoprolol tartrate, short acting, (LOPRESSOR) 25 mg tablet Take 1 tablet by mouth every 12 hours. ketoconazole (NIZORAL) 2 % shampoo Use as a body wash, most specifically the chest, daily for itching and flaking; may keep in own shower atorvastatin (LIPITOR) 80 mg tablet Take 1 tablet by mouth once daily. tamsulosin ER (FLOMAX) 0.4 mg cp24 Take 1 capsule by mouth every evening. for prostate metFORMIN (GLUCOPHAGE) 500 mg tablet Take 1 tablet by mouth three times daily with meals. nitroglycerin sublingual (NITROSTAT) 0.4 mg SL tablet Take 1 tablet by mouth as needed. for chest pain; dissolve on tongue. If no pain relief call 911. Ranitidine HCl 300 mg tablet Take with evening meal. magnesium oxide (MAG-OX) 400 mg tablet Take 1 tablet by mouth once daily. COMPOUNDED PRESCRIPTION Please eval and fix any issues with walker.Dx: I50.33, I25.10, E66.01, M54.42, M25.551 bisacodyl (DULCOLAX) 10 mg supp 1 Suppository by RECTAL route once daily as needed (for constipation). polyethylene glycol 3350 (MIRALAX, GLYCOLAX) 17 gram/dose powder 17 g up to twice daily as needed prn constipation aspirin, enteric coated (ADULT LOW DOSE ASPIRIN) 81 mg EC tablet Take 1 tablet by mouth once daily. COMPOUNDED PRESCRIPTION Glucometer high/low test solution for accucheck. DX: DM COMPOUNDED PRESCRIPTION Please perform a nocturnal oximetry on room air on BiPAP. Diagnosis: HypoxiaPlease fax results to [phone] Attn: Glendy Lancets (ACCU-CHEK FASTCLIX) lancets Test glucose twice weekly. Dx: 250.00. Insulin Use: no blood sugar diagnostic test strip testing twice weekly dx 250.00 insulin no Blood-Glucose Meter, Drum-type (ACCU-CHEK COMPACT PLUS CARE) kit Test fasting blood sugar 1-2 times a week and 2 hrs post meal 1- 2 times a week. Blood-Glucose Meter (ONETOUCH ULTRA 2) monitoring kit 1 Each as needed. One Touch Meter Kit Diagnosis: Diabetes Mellitus Blood Glucose Control, Normal (OT ULTRA/FASTTRACK CONTROL) soln Test controls as needed. COMPOUNDED PRESCRIPTION BIPAP setting: IPAP 22cm water with heated humidification EPAP setting of 16cm with supplemental oxygen bleed in at 2lt per minute. Mask (per patient preference) and supplies for lifetime. Please add chin strap DX EDMOND 327.23 Current Facility-Administered Medications: lactated ringers infusion 5-30 mL/hr INTRAVENOUS CONTINUOUS Joan (Pa) Vetovitz ceFAZolin 3 g in D5W 100 mL (ANCEF) 3 g INTRAVENOUS Pre-Op Once Joan (Pa) Vetovitz Allergies: ALLERGIES Allergen Reactions - Lisinopril Other: See Comments Metallic taste in mouth. - Sertraline GI Upset DOS EXAM: Adequate NPO status: Yes Anesthetic risks, benefits, alternatives, personnel and consent discussed: Yes Patient agrees to proceed: Yes Previous Anesthesia: No history of adverse event. Airway Assessment: MP 2; Neck ROM: Full ROM without neurologic symptoms; Airway Evaluation: No significant abnormalities Symptoms of Sleep Apnea: None Dentition: Teeth intact Additional Physical Exam: Lungs: Patient health status unchanged since recent history and physical. See history and physical for exam findings. Cardiac: Patient health status unchanged since recent history and physical. See history and physical for exam findings. Additional Pertinent Findings: N/A Blood Products: Not anticipated for this procedure. Anesthetic Plan: MAC with Sedation Pain Management Plan: Parenteral or Oral ASA Class: 3 Other Medical Problems: pacemaker I have interviewed and examined the patient. I have reviewed the medical record and/or the pre-anesthesia evaluation, pertinent labs, and test results. Significant changes in the patient's condition since the History and Physical, not otherwise documented in primary service progress notes: No This contains updated information obtained within 48 hours of Surgery/Procedure. SIGNATURE: Victor Hugo Koo MD PATIENT NAME: Mayco Kendrick DATE: January 14, 2018 TIME: 8:47 AM CSN: [id number] PT ED Observed: 01/14/2018 Status: COMPLETED Source: [place] 8:43 AM CLINIC OTHER CAMPUS REPOSITORY HNO ID: [id number] Author: Cooper Kamara) TALA Schuler Service: Nursing Author Type: Registered Nurse Type: Patient Education Filed: 01/14/2018 8:43 AM Note Text: PRE OP LEARNING ASSESSMENT PROCEDURE/SURGERY: SURGERY: 1. Left ulnar nerve decompression, with possible transposition. 2. Left carpal tunnel release.? READINESS TO LEARN COGNITIVE ABILITY: Alert and oriented MOTIVATION TO LEARN: Eager FAMILY SUPPORT: None - Unavailable/disinterested PATIENT LEARNS BEST BY: Individual Instruction Verbal Instruction FACTORS AFFECTING LEARNING: None PHYSICAL LIMITATIONS AFFECTING LEARNING: None Electronically Signed By: Cooper Schuler RN In Department: [facility] SURGERY PT D/C SUMMARY (1) Observed: 01/13/2018 Status: F Source: [place] 1:28 PM [facility] REPOSITORY [facility] [address] [place], [place] [address] Fax REHABILITATION SERVICES DISCHARGE SUMMARY MR#: [id number] Acct: [id number] Name: MAYCO KENDRICK Rep #: [id number] : 1940 77 From: Lily Murray PT, Cert. MDT Referring : Status: REG RCR Insurance[facility] [employer] [facility] - PT D/C Summary It has been my pleasure to treat MAYCO KENDRICK under orders from JOAN NEO, for the diagnosis of SCIATICA NERVE PAIN LEFT for a total of 7 visit(s). Discharge Date: Please see the following information for a summary of their discharge status. - Subjective Subjective: PATIENT REPORTS THE WATER THERAPY HAS HELPED HIM A LOT. HE PLANS TO CONTINUE WATER EX INDEP'LY AT THE [facility] WITH HIS NEW INSURANCE NOW. HE REPORTS HIS PAIN IS BETTER AND HE CAN WALK BETTER NOW. - Pain LLE Pain Intensity (Out of 10): 0 - Overall Improvement % Improvement: 80 - Objective Objective/Function: ALL GOALS MET. PATIENT IS INDEP WITH A WATER EX PROGRAM. INDEP GAIT INTO PT TODAY WITH INCRASED CADANCE WITH STRAIGHT CANE. NO LOB. HE STILL WALKS WITH A WIDE BASE OF SUPPORT AND DECREASED JALEEL STRIDE LENGTH. UNABLE TO TRANSFER INDEP'LY FORM SIT TO STAND FROM OUR CHAIRS IN THE CLINIC TODAY BUT REPORTS HE IS GETTING UP OUT OF CHAIRS BETTER IN GENERAL NOW. LUMBAR MVMT LOSS HAS NOT CHANGED. JALEEL LE STRENGTH IS 5/5 WITH MMT'ING AND NO C/O PAIN WITH TESTING. HE IS ONLY ABLE TO SLS X APPROX 5 SEC ON EACH LEG WITHOUT UE ASSIST BUT THIS IS AN IMPROVEMENT. LUMBAR OSWESTRY HAS IMPROVED FROM 15 TO 12 - Goals Goal 1:: DECREASE C/O LLE SX'S Goal Progress: Goal Met Goal 2:: IMPROVE STANDING, WALKING, BENDING, LIFTING, SITTING, AND ADL FUNCTION Goal Progress: Goal Met Goal 3:: INSTRUCT IN PROPHYLAXIS Goal Progress: Goal Met - Plan Plan: D/C TO [facility] WATER PROGRAM. PATIENT IS AGREEABLE. - D/C Information If there are questions or concerns regarding this patient's physical therapy, please feel free to call me at [phone]. Thank you for the referral of this patient. Sincerely, Lily Murray <Electronically signed by Lily Murray PT, Cert. MDT> 01/13/18 1328 CC: Bertrand Leon MD; OUT OF TOWN DOCTOR SEBASTIAN Signed NURSING PROG Observed: 01/11/2018 Status: COMPLETED Source: [place] 12:01 PM CLINIC OTHER CAMPUS REPOSITORY HNO ID: [id number] Author: Mariana (Rn) TALA Fields Service: Nursing Author Type: Registered Nurse Type: Nursing Progress Note Filed: 01/11/2018 12:08 PM Note Text: PACC Nurse Progress Note History AND Physical: PACC Visit Date: 01/07/18 Original HANDP Date: 01/07/18 ED visit Date: N/A Outside HANDP Scanned Date: N/A Labs Within Last 6 Months: CBC: Date 12/30/17 cbc/diff- within acceptable limits BMP/CMP: Date 01/07/18 cmp within acceptable limits Imaging Within Last 12 Months: N/A Cardiac Testing: EKG in last 12 Months: Yes: Date: 11/19/17, Comment: AV dual paced rhythm Device:Pacemaker, Comment: Medtronic , Implanted 2016, Last interrogated 10/26/17 - in [email or web address], Battery life- 8 yrs, implanted 04/23/16 for SSS, CHB Followed by Dr David Estes BMI 45.1 Risk Assessment: N/A Anesthesia Review: 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 Roblero with last visit in 11/2017-pt stable and to f/u in 6 months; cardiology Narrative: Pt resides at [facility]--spoke with nurse, Malka and she states pt's Matty is on hold until seen by Dr Leon on 01/17/18 Pre-op Considerations: HX DM- oral med Chart Check: COMPLETED Mariana Fields RN January 11, 2018 12:01 PM COMP METABOLIC PANEL Collected: 01/07/2018 Status: F Source: [place] 3:47 PM [facility] [place] REPOSITORY TYPE CODE TESTS RESULT OUT OF REFERENCE UNITS RANGE LAB TP 6.3-8.0 g/dL Protein, Total 7.6 LAB ALB 3.9-4.9 g/dL Albumin 4.0 LAB CA 8.5-10.2 mg/dL Calcium, Total 9.2 LAB TBIL 0.2-1.3 mg/dL Bilirubin, Total 0.5 LAB ALKP 36-108 U/L Alkaline Phosphatase 85 LAB AST 14-40 U/L AST 22 LAB GLU 74-99 mg/dL Low Glucose 73 Result Comment: The [place] Diabetes Association (ADA) provides guidance for cutoff values for fasting glucose and random glucose. The ADA defines fasting as no caloric intake for at least 8 hours. Fas ting plasma glucose results between 100 to 125 mg/dL indicate increased risk for diabetes (prediabetes). Fasting plasma glucose results greater than or equal to 126 mg/dL meet the criteria for diagnosis of diabetes. In the absence of unequivocal hyperglycemia, results should be confirmed by repeat testing. In a patient with classic symptoms of hyperglycemia or hyperglycemic crisis, random plasma glucose results greater than or equal to 200 mg/dL meet the criteria for diagnosis of diabetes. Reference: Standards of Medical Care in Diabetes 2016, [place] Diabetes Association. Diabetes Care. 2016.39(Suppl 1). LAB BUN 9-24 mg/dL BUN 15 LAB CRET 0.73-1.22 mg/dL Creatinine 0.90 LAB NA 136-144 mmol/L Sodium 142 LAB K 3.7-5.1 mmol/L Potassium 3.9 LAB CL 97-105 mmol/L Chloride 100 LAB CO2 22-30 mmol/L CO2 28 LAB AGAP 9-18 mmol/L Anion Gap 14 LAB ALT 10-54 U/L ALT 19 LAB GFRAA eGFR- Amer. >60 LAB GFRNAA . eGFR-All Other Races >60 Result Comment: eGFR (Estimated GFR) Units of measure: mL/min/1.73 meters squared eGFR is derived from the reexpressed MDRD Study equation using the following parameters: serum creatinine, age, gender and race. The creatinine assay has been calibrated to be traceable to IDMS. An eGFR <60 mL/min/1.73m2 for >3 months is consistent with chronic kidney disease. Refer to KDOQI guidelines for clinical interpretation. In patients with unstable renal function, e.g. those with acute kidney injury, the eGFR may not accurately reflect actual GFR. Performed By: #### CMP #### [facility] [address] [place], [place] [address] HISTORY PHYSICAL Observed: 01/07/2018 Status: COMPLETED Source: [place] 3:01 PM [facility] REPOSITORY HNO ID: [id number] Author: Iris Mendosa (Pa) Service: (none) Author Type: Physician Budget Officer Type: HANDP Filed: 01/11/2018 8:42 AM Note Text: HISTORY AND PHYSICAL EXAMINATION SERVICE DATE: 01/07/2018 SERVICE TIME: 3:01 PM PRIMARY CARE PHYSICIAN: Bertrand Leon MD REASON FOR VISIT: Mayco Kendrick is a 77 year old male who is scheduled for left CTR AND left ulnar nerve decompression at the request of Dr. Ruddy Chavez for consultation. My final recommendation will be communicated back to the requesting physician by way of shared medical record or letter. The patient has the following: ACTIVE PROBLEM LIST Mild Intermittent Asthma Without Complication MALIGN NEOPL PROSTATE Allergic Rhinitis, Cause Unspecified Personal History of Colonic Polyps Lumbago Bilateral Leg Edema Carpal Tunnel Syndrome Essential Hypertension, Benign Insomnia, Unspecified Benign Neoplasm of Rectum and Anal Canal Diverticulosis of Colon (Without Mention of Hemorrhage) Hypertrophy of Nasal Turbinates History of Prostatitis Heart block AV complete Frequency of Urination Urgency of Urination Acute On Chronic Diastolic Chf (Congestive Heart Failure), Nyha Class 4 (Hcc) Edmond (Obstructive Sleep Apnea) Mobitz (Type) I (Wenckebach's) Atrioventricular Block Mixed Hyperlipidemia Bradycardia Venous Stasis Dermatitis of Both Lower Extremities Hypomagnesemia Diabetic Eye Exam ([facility]) Dry Mouth Noncompliance Gastroesophageal Reflux Disease Without Esophagitis Coronary Atherosclerosis Due to Lipid Rich Plaque Morbid Obesity Due to Excess Calories (Hcc) Essential Tremor Chronic Cough Controlled Type 2 Diabetes Mellitus With Diabetic Nephropathy, Without Long-Term Current Use of Insulin (Hcc) Depression Multiple open wounds of lower leg Colon Cancer Screening Chest Pain Second Degree Heart Block Atherosclerosis of Coronary Artery Bypass Graft of [place] Heart With Unstable Angina Pectoris ([facility]) Hypoxia Chronic Bilateral Low Back Pain With Left-Sided Sciatica Bilateral Hip Pain Paroxysmal Atrial Fibrillation ([facility]) Ulnar Neuropathy At Elbow of Right Upper Extremity Right Carpal Tunnel Syndrome Presence of Cardiac Pacemaker Esophagitis Albuminuria Carpal Tunnel Syndrome, Bilateral Ulnar Nerve Compression, Right Current Use of Proton Pump Inhibitor Left Carpal Tunnel Syndrome Ulnar Neuropathy At Elbow of Left Upper Extremity Subjective CHIEF COMPLAINT: left CTS HPI: Mayco Kendrick is a 77 year old male that presents c/o a several month history of left CTS that has worsened with time. +numbness AND tingling in hand and left elbow pain. Pain is constant and described as sharp in nature. Pain does radiate to elbow and hand. Aggravating factors include any use. Alleviated by nothing. Previous treatments include none. Scheduled for Left CTR AND L ulnar nerve decompression on 01/14 Denies recent illness, fever or chills. PAST MEDICAL HISTORY Diagnosis Date - Abdominal pain 08/11/2014 w some distention. Appears chronic -abdominal ultrasound - ACUTE GASTRITIS W/O HEMORRHAGE 12/21/2006 - Acute on chronic diastolic CHF (congestive heart failure), NYHA class 4 ([facility]) 03/08/2014 H/o HFpEF with diastolic dysfunction, ICM 55% EF Presents with CP and SOB Weight gain 30lbs in last 3 months Currently SOB and volume overload, in setting of unstable angina (killip 3) Plan Continue Diuresis As above for possible restrictive CM - ALLERGIC RHINITIS NOS 05/03/2006 - Asthma - ASTHMA UNSPECIFIED - Benign neoplasm of colon - Benign neoplasm of rectum and anal canal - Bilateral leg edema 11/05/2008 - Bradycardia 08/11/2014 Patient with sinus bradycardia with Type 1 Mobitz since 2011 however Pulse dropping to high 30s with dizziness Plan: Place on tele for monitoring EP evaluation for ? Pacemaker with new onset of symptoms 2/2 to relative hypotension vs bradycardia Daily EKGs to evaluate rhythm, still appears to be Mobitz type 1 Keep K and Mag above 4 and 2 respectively - Carpal tunnel syndrome 03/28/2010 - Chest pain 07/26/2014 73 year old male transferred from OSH for Unstable angina, chest pain on a Nitro and heparin Drip. First set of enzymes was negative. No ST-T wave chanes on EKG Mobitz type 1 AV block (chronic) ALVERTO score 5 With associated SOB and Pulmonary edema on CXR (Killip class 3) Found not to have acute plaque rupture ?Restrictive cardiomyopathy Will need LHC (LVEDP) and RHC tomorrow - per Dr. Pepe would like Dr. Randall PLAN NPO at midnight Call Cath Charge in AM to confirm schedule and attending Continue diuresis Additionally: - ASA - Stop plavix - reduce Atorvastatin to 20mg (home dose, last LDL ~55) - Losartan - Chest pain with painful respiration 08/11/2014 Chest heaviness. Unstable angina ? -stat EKG -telemetry - trend Ghazala - Congestive heart failure (HCC) - Controlled type 2 diabetes mellitus with diabetic nephropathy ([facility]) 01/18/2014 - Coronary artery disease - CORONARY ATHEROSCLER UNSPEC VESSEL 05/15/2005 - Coronary atherosclerosis due to lipid rich plaque 09/25/2015 - Depression - DEPRESSIVE DISORDER NEC 02/19/2009 - Diverticulitis - Diverticulosis of colon (without mention of hemorrhage) - DM type 2 (diabetes mellitus, type 2) ([facility]) 09/05/2014 - Edema 11/05/2008 - Essential hypertension, benign 02/02/2011 Essential hypertension, benign Home meds - losartan, norvasc, isosorbide mononitrate, lasix AND torsemide PLAN -hypotensive at OSH so hold bp meds for now. Resume as the bp normalizes. - IV lasix 40 mg once for now -resume home dose of lasix AND torsemide PO in the morning - Frequency of urination 02/01/2014 - GERD (gastroesophageal reflux disease) 09/05/2014 - Hand fracture, left 10/13/2011 - Heart block AV complete 05/11/2013 - Hip fracture, right (HCC) 09/22/2012 Treated medically - History of prostatitis 04/11/2013 - Hyperlipidemia - Hypertension - Hypertrophy of nasal turbinates 07/06/2012 consult with [facility] 06/29/2012 Plan to schedule ablation of inferior turbinates @ [facility]. - Insomnia, unspecified 06/17/2011 OARRS report reviewed October 22, 2011 Matt Taylor MD - Leg swelling - Lumbago 05/11/2007 - MALIGN NEOPL PROSTATE - Mobitz (type) I (Wenckebach's) atrioventricular block 07/26/[address] Eric Go in 2012. Chronic conduction abnormality. does not need a pacemaker. Here with concern for ACS EKG: mobitz type 1, unchanged from prior, no ST-T wave changes BP stable Plan: Monitor Avoiding BB - Morbid obesity 06/02/2011 07/08/2017: H: 72 in, W: 358 lb, BMI 48.54. 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 01/18/2014 - Type II or unspecified type diabetes mellitus without mention of complication, not stated as uncontrolled - Unspecified sleep apnea CPAP 18 with 1L - Urgency of urination 02/01/2014 PAST SURGICAL HISTORY Procedure Laterality Date - CABG, ARTERY-VEIN, TWO 1998 CABG, two grafts - CHOLECYSTECTOMY HX 10/14/2015 gangrenous gallbladder - COLONOSCOP W/ OR W/O [facility] SPEC 01/27/2005 Colonoscopy - COLONOSCOP W/ OR W/O [facility] SPEC 12/21/2006` repeat in -2011 - COLONOSCOP W/ OR W/O [facility] SPEC 05/18/2012 Colonoscopy repeat 5 years - COLONOSCOPY 12/29/2016 repeat 10 yrs - EGD 12/29/2016 - EGD W/O [facility] SPECIMEN W/BX 12/21/06 - EGD W/O OR W/BRUSH/WASH 01/27/2005 EGD - EGD W/O OR W/BRUSH/WASH 11/21/14 EGD - OPEN CORONARY ENDARTERECTOMY 1999 Angioplasty with stent placement - PACEMAKER 2016 - REMOVAL OF TONSILS,<12 Y/O Tonsillectomy - REPAIR RETINAL DETACH, C 10/2010 - REVISE MEDIAN N/CARPAL TUNNEL SURG Right 09/10/2017 Right CTR - REVISE ULNAR NERVE AT ELBOW Right 09/10/2017 Right ulnar nerve decompression - TOTAL HIP REPLACEMENT 2001 Hip replacement, total, right - TOTAL HIP REPLACEMENT 2002 Hip replacement, total, left FAMILY HISTORY Problem Relation Age of Onset - Heart Father - Cancer Mother Lung - Heart Paternal Grandfather - Heart Brother SOCIAL HISTORY: Social History Marital status: Single Spouse name: Years of education: Number of children: 0 Occupational History 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 Alcohol use: Yes 31.5 oz/week Cans of Beer (12oz): 7, Mixed Drinks: 14 per week Comment: 2/beer/mixed drink daily-states no ETOH since 09/2017 Drug use: No Sexual activity: No Social History Narrative OARRS report reviewed October 22, 2011 Matt Taylor MD MEDICATIONS: Prior to Admission medications as of 01/07/18 1518 Medication Sig Last Dose Taking cefADROxil (DURICEF) 500 mg capsule Take 1 capsule by mouth twice daily for 10 days. Yes ammonium lactate (LAC-HYDRIN) 12 % cream Apply 1 application to affected area twice daily as needed. Yes rivaroxaban (XARELTO) 20 mg tablet Take 1 tablet by mouth daily with dinner. Yes sucralfate (CARAFATE) 1 gram tablet Take 1 tablet by mouth three times daily before meals. 30 minutes before meals. Yes pantoprazole DR (PROTONIX) 40 mg tablet Take 1 tablet by mouth daily before breakfast. Take on empty stomach, 1/2 hr before meal. Per Gastroenterology Yes furosemide (LASIX) 80 mg tablet One PO daily in AM Yes furosemide (LASIX) 40 mg tablet One PO daily at dinner Yes oxybutynin (DITROPAN) 5 mg tablet Take 1 tablet by mouth three times daily. Yes glimepiride (AMARYL) 1 mg tablet Take 1 tablet by mouth daily with breakfast. Yes metoprolol tartrate, short acting, (LOPRESSOR) 25 mg tablet Take 1 tablet by mouth every 12 hours. Yes ketoconazole (NIZORAL) 2 % shampoo Use as a body wash, most specifically the chest, daily for itching and flaking; may keep in own shower Yes atorvastatin (LIPITOR) 80 mg tablet Take 1 tablet by mouth once daily. Yes tamsulosin ER (FLOMAX) 0.4 mg cp24 Take 1 capsule by mouth every evening. for prostate Yes metFORMIN (GLUCOPHAGE) 500 mg tablet Take 1 tablet by mouth three times daily with meals. Yes nitroglycerin sublingual (NITROSTAT) 0.4 mg SL tablet Take 1 tablet by mouth as needed. for chest pain; dissolve on tongue. If no pain relief call 911. Yes Ranitidine HCl 300 mg tablet Take with evening meal. Yes magnesium oxide (MAG-OX) 400 mg tablet Take 1 tablet by mouth once daily. Yes bisacodyl (DULCOLAX) 10 mg supp 1 Suppository by RECTAL route once daily as needed (for constipation). Yes aspirin, enteric coated (ADULT LOW DOSE ASPIRIN) 81 mg EC tablet Take 1 tablet by mouth once daily. Yes COMPOUNDED PRESCRIPTION Please eval and fix any issues with walker. Dx: I50.33, I25.10, E66.01, M54.42, M25.551 polyethylene glycol 3350 (MIRALAX, GLYCOLAX) 17 gram/dose powder 17 g up to twice daily as needed prn constipation COMPOUNDED PRESCRIPTION Glucometer high/low test solution for accucheck. DX: DM COMPOUNDED PRESCRIPTION Please perform a nocturnal oximetry on room air on BiPAP. Diagnosis: Hypoxia Please fax results to [phone] Attn: Glendy Lancets (ACCU-CHEK FASTCLIX) lancets Test glucose twice weekly. Dx: 250.00. Insulin Use: no blood sugar diagnostic test strip testing twice weekly dx 250.00 insulin no Blood-Glucose Meter, Drum-type (ACCU-CHEK COMPACT PLUS CARE) kit Test fasting blood sugar 1-2 times a week and 2 hrs post meal 1- 2 times a week. Blood-Glucose Meter (ONETOUCH ULTRA 2) monitoring kit 1 Each as needed. One Touch Meter Kit Diagnosis: Diabetes Mellitus Blood Glucose Control, Normal (OT ULTRA/FASTTRACK CONTROL) soln Test controls as needed. COMPOUNDED PRESCRIPTION BIPAP setting: IPAP 22cm water with heated humidification EPAP setting of 16cm with supplemental oxygen bleed in at 2lt per minute. Mask (per patient preference) and supplies for lifetime. Please add chin strap DX EDMOND 327.23 No medication comments found. CURRENT ALLERGIES: ALLERGIES Allergen Reactions - Lisinopril Other: See Comments Metallic taste in mouth. - Sertraline GI Upset REVIEW OF SYSTEMS: PAIN ASSESSMENT: General: No weight loss, malaise or fevers. Neuro: Postive for Impaired Sensorium b/l hand numbness AND tingling; No history of TIAs, stroke, headaches, tremors, CAN CAPPER tumor, hemiplegia, paraplegia, quadriplegia. Respiratory: EDMOND-BiPAP and 1.5L O2 bedtime; Mild asthma-mild; Denies current cough. Can do stairs with no AGUAYO. Cardiovascular: PPM by EBIQUOUS interrogated 10/26/17 with battery life of 18 yrs. A fib-holding anticoagulant due to hemoptysis in 04/2017. CAD s/p stent in 1999 on ASA AND 2 vessel CABG in 1998; HTN, HLD, LBBB; CM-LVEF 55% in 03/2016; Chronic chest pressure; +BLE edema; Followed by Dr. Roblero with last visit in 11/2017-pt stable and to f/u in 6 months; Pt reports no changes since visit. No h/o DVT/PE GI: GERD-RX; Esophagitis; +ETOH use; No PUD, liver disease. : urinary frequency-RX; H/o prostate cancer s/p radiation; No CKD. No dysuria or hematuria. Endocrine: +DM on oral RX; A1C 6.8%; FBS 125; No thyroid d/o. No oral steroids Hematology: No history of bleeding or clotting disorder. Pt is not taking anti-coagulation or platelet medications. No history of hematological symptoms or problems. Oncology: See ROS Psych: No history of psychiatric symptoms or problems. Musculoskeletal: Joint pain-OA Skin: Negative for lesions, rash and itching. Objective PHYSICAL EXAM: VITALS: BP 121/60 Pulse 58 Temp (Src) 98.4 (Temporal Artery) Ht 6' 0 (1.83m) Wt 333 lb 3.2 oz (151.1kg) SpO2 91% BMI 45.18 kg/(m2). General: Alert and oriented, No acute distress, Morbidly obese Skin: Normal color, no rash, no lesions. HEENT: EOM, pupils equal, round and reactive., No carotid bruits Cardiovascular: Normal S1 AND S2, no rubs, murmurs or gallops. No JVD. Pulse regular. Lungs: Normal breath sounds, no wheezes or crackles., No chest deformities or chest wall tenderness. Abdomen: Soft, non-tender, no rigidity., No masses or organomegaly. Extremities: BLE +1 pitting edema; compression stockings Neurological: Normal cognition and motor skills. Abnormal gait-cane Pulses: Carotid pulses; left 1+ / right 1+. Radial pulses; left 1+ / right 2+. Diagnostic tests reviewed for today's visit: Lab Value Units Date High Low HB 14.1 g/dL 12/30/2017 17.0 13.0 HCT 44.5 % 12/30/2017 51.0 39.0 WBC 8.92 k/uL 12/30/2017 11.00 3.70 PLT 244 k/uL 12/30/2017 400 150 NA No results within date range. K No results within date range. GLUC No results within date range. BUN No results within date range. CREAT No results within date range. PTSEC No results within date range. INR No results within date range. APTT No results within date range. ALT No results within date range. AST No results within date range. TBILI No results within date range. TSH No results within date range. Lab Value Units Date High Low HCGQT No results within date range. UHCG No results within date range. HCG, BODY* No results within date range. Lab Value Units Date High Low ABORHD No results within date range. ABSCREEN No results within date range. Hemoglobin A1C Date Value 07/23/2017 6.8 10/09/2016 7.4 04/23/2016 6.8 % 07/12/2014 6.4 % 01/05/2014 6.1 % 07/11/2013 6.1 % 03/07/2013 6.2 % Most recent labs Most recent imaging Most recent EKG: AV dual paced, reviewed by opera singer. 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 ASA Class: 4 ANESTHESIA FINDINGS: Intubation History: No history of difficult intubation Significant Anesthesia Considerations: None and Difficult IV/Vein Access: No Airway Exam: General: Morbid obesity Mallampati Score is CLASS IV ULBT: Class I - Lower incisors can bite the upper lip above the regina line Neck: Distance from hyoid to mentum during neck extension is at least 3 finger breaths, Limited movement extension, Short neck, thick neck Mouth: Large tongue size and Mouth opening greater than 2 finger breaths Dentition: Implants Airway History: No history of difficult intubation STOP BANG Score: EDMOND uses CPAP/BiPAP PLAN This patient is optimally prepared for surgery pending LABS. FYI to anesthesia re: PPM. CONSULTS: Patient does not require consults for optimization at this time. see plan above The Following Tests/Procedures Have Been Initiated: Orders Placed This Encounter COMP METABOLIC PANEL Planned Anesthetic: General Instructions Given to Patient: Patient given verbal and written preop instructions and voices comprehension and compliance. SIGNATURE: Iris Mendosa PA-C PATIENT NAME: Mayco Kendrick DATE: January 07, 2018 TIME: 3:01 PM PAGER/CONTACT #: CBC AND DIFFERENTIAL Collected: 12/30/2017 Status: F Source: [place] 1:13 PM [facility] REPOSITORY TYPE CODE TESTS RESULT OUT OF REFERENCE UNITS RANGE LAB WBC 3.70-11.00 k/uL WBC 8.92 LAB RBC 4.20-6.00 m/uL RBC 4.91 LAB HGB 13.0-17.0 g/dL Hemoglobin 14.1 LAB HCT 39.0-51.0 % Hematocrit 44.5 LAB MCV 80.0-100.0 fL MCV 90.6 LAB MCH 26.0-34.0 pG MCH 28.7 LAB MCHC 30.5-36.0 g/dL MCHC 31.7 LAB RDWCV 11.5-15.0 % RDW-CV 14.5 LAB PLTCT 150-400 k/uL Platelet Count 244 LAB MPV 9.0-12.7 fL MPV 10.5 LAB ANEUT % Neut% 63.6 LAB AANEUT 1.45-7.50 k/uL Abs Neut 5.68 LAB ALYMP % Lymph% 20.4 LAB AALYMP 1.00-4.00 k/uL Abs Lymph 1.82 LAB AMONO % [place]haw% 10.2 LAB AAMONO <0.87 k/uL Abs [place] High 0.91 LAB AEOS % Eosin% 5.2 LAB AAEOS <0.46 k/uL Abs High Eosin 0.46 LAB ABASO % Baso% 0.6 LAB AABASO <0.11 k/uL Abs Baso 0.05 LAB AUNRBC 0 /100 WBC NRBCs 0.0 LAB ABNRBC <0.01 k/uL Absolute nRBC <0.01 LAB DTYP DTYPE Auto Diff Performed By: #### CBCDIF #### [facility] [address] [place] [id number] PROGRESS Observed: 12/30/2017 Status: COMPLETED Source: [place] 12:23 PM [facility] REPOSITORY HNO ID: [id number] Author: Melly Mccloud(Lori) Service: (none) Author Type: Physician Budget Officer Type: Progress Notes Filed: 12/30/2017 1:02 PM Note Text: 12/30/2017 Patient presents with: Edema: patient is here edema or redness in legs SUBJECTIVE: This is a 77 year old that is here today for leg erythema. Patient has noticed more redness associated with his leg swelling No pain and no worsening swelling. States he started noticing it about 1 week ago. Using compression wraps/stockings daily. No associated chest pain or shortness of breath PAST MEDICAL HISTORY Diagnosis Date - Abdominal pain 08/11/2014 w some distention. Appears chronic -abdominal ultrasound - ACUTE GASTRITIS W/O HEMORRHAGE 12/21/2006 - Acute on chronic diastolic CHF (congestive heart failure), NYHA class 4 (HCC) 03/08/2014 H/o HFpEF with diastolic dysfunction, ICM 55% EF Presents with CP and SOB Weight gain 30lbs in last 3 months Currently SOB and volume overload, in setting of unstable angina (killip 3) Plan Continue Diuresis As above for possible restrictive CM - ALLERGIC RHINITIS NOS 05/03/2006 - Asthma - ASTHMA UNSPECIFIED - Benign neoplasm of colon - Benign neoplasm of rectum and anal canal - Bilateral leg edema 11/05/2008 - Bradycardia 08/11/2014 Patient with sinus bradycardia with Type 1 Mobitz since 2011 however Pulse dropping to high 30s with dizziness Plan: Place on tele for monitoring EP evaluation for ? Pacemaker with new onset of symptoms 2/2 to relative hypotension vs bradycardia Daily EKGs to evaluate rhythm, still appears to be Mobitz type 1 Keep K and Mag above 4 and 2 respectively - Carpal tunnel syndrome 03/28/2010 - Chest pain 07/26/2014 73 year old male transferred from OSH for Unstable angina, chest pain on a Nitro and heparin Drip. First set of enzymes was negative. No ST-T wave chanes on EKG Mobitz type 1 AV block (chronic) ALVERTO score 5 With associated SOB and Pulmonary edema on CXR (Killip class 3) Found not to have acute plaque rupture ?Restrictive cardiomyopathy Will need LHC (LVEDP) and RHC tomorrow - per Dr. Pepe would like Dr. Randall PLAN NPO at midnight Call Cath Charge in AM to confirm schedule and attending Continue diuresis Additionally: - ASA - Stop plavix - reduce Atorvastatin to 20mg (home dose, last LDL ~55) - Losartan - Chest pain with painful respiration 08/11/2014 Chest heaviness. Unstable angina ? 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 Resume as the bp normalizes. - IV lasix 40 mg once for now -resume home dose of lasix AND torsemide PO in the morning - Frequency of urination 02/01/2014 - GERD (gastroesophageal reflux disease) 09/05/2014 - Hand fracture, left 10/13/2011 - Heart block AV complete 05/11/2013 - Hip fracture, right (HCC) 09/22/2012 Treated medically - History of prostatitis 04/11/2013 - Hyperlipidemia - Hypertension - Hypertrophy of nasal turbinates 07/06/2012 consult with [facility] ENT 06/29/2012 Plan to schedule ablation of inferior turbinates @ [facility]. - Insomnia, unspecified 06/17/2011 OARRS report reviewed October 22, 2011 Matt Taylor MD - Leg swelling - Lumbago 05/11/2007 - MALIGN NEOPL PROSTATE - Mobitz (type) I (Wenckebach's) atrioventricular block 07/26/[address] Eric Go in 2012. Chronic conduction abnormality. does not need a pacemaker. Here with concern for ACS EKG: mobitz type 1, unchanged from prior, no ST-T wave changes BP stable Plan: Monitor Avoiding BB - Morbid obesity 06/02/2011 07/08/2017: H: 72 in, W: 358 lb, BMI 48.54. 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 01/18/2014 - Type II or unspecified type diabetes mellitus without mention of complication, not stated as uncontrolled - Unspecified sleep apnea CPAP 18 with 1L - Urgency of urination 02/01/2014 ALLERGIES Lisinopril; Sertraline MEDICATIONS Current Outpatient Prescriptions: ammonium lactate (LAC-HYDRIN) 12 % cream Apply 1 application to affected area twice daily as needed. aluminum AND magnesium hydroxide-simethicone (MAALOX PLUS EXTRA STRENGTH) 400-400-40 mg/5 mL suspension Take 20 mL by mouth every 6 hours as needed (upset stomach). HYDROcodone-acetaminophen (NORCO) 5-325 mg per tablet Take 1 tablet by mouth every 6 hours as needed. rivaroxaban (XARELTO) 20 mg tablet Take 1 tablet by mouth daily with dinner. pantoprazole DR (PROTONIX) 40 mg tablet Take 1 tablet by mouth daily before breakfast. Take on empty stomach, 1/2 hr before meal. Per Gastroenterology furosemide (LASIX) 80 mg tablet One PO daily in AM furosemide (LASIX) 40 mg tablet One PO daily at dinner oxybutynin (DITROPAN) 5 mg tablet Take 1 tablet by mouth three times daily. glimepiride (AMARYL) 1 mg tablet Take 1 tablet by mouth daily with breakfast. metoprolol tartrate, short acting, (LOPRESSOR) 25 mg tablet Take 1 tablet by mouth every 12 hours. ketoconazole (NIZORAL) 2 % shampoo Use as a body wash, most specifically the chest, daily for itching and flaking; may keep in own shower triamcinolone acetonide (KENALOG) 0.1 % cream Apply to itching rash on chest twice daily ONLY when needed; may keep in room atorvastatin (LIPITOR) 80 mg tablet Take 1 tablet by mouth once daily. tamsulosin ER (FLOMAX) 0.4 mg cp24 Take 1 capsule by mouth every evening. for prostate metFORMIN (GLUCOPHAGE) 500 mg tablet Take 1 tablet by mouth three times daily with meals. nitroglycerin sublingual (NITROSTAT) 0.4 mg SL tablet Take 1 tablet by mouth as needed. for chest pain; dissolve on tongue. If no pain relief call 911. traZODone (DESYREL) 50 mg tablet Take 1 tablet by mouth at bedtime as needed (sedation). Ranitidine HCl 300 mg tablet Take with evening meal. magnesium oxide (MAG-OX) 400 mg tablet Take 1 tablet by mouth once daily. docusate sodium (DOC-Q-LACE) 100 mg capsule Take 1 capsule by mouth once daily. COMPOUNDED PRESCRIPTION Please eval and fix any issues with walker.Dx: I50.33, I25.10, E66.01, M54.42, M25.551 bisacodyl (DULCOLAX) 10 mg supp 1 Suppository by RECTAL route once daily as needed (for constipation). polyethylene glycol 3350 (MIRALAX, GLYCOLAX) 17 gram/dose powder 17 g up to twice daily as needed prn constipation aspirin, enteric coated (ADULT LOW DOSE ASPIRIN) 81 mg EC tablet Take 1 tablet by mouth once daily. COMPOUNDED PRESCRIPTION Glucometer high/low test solution for accucheck. DX: DM COMPOUNDED PRESCRIPTION Please perform a nocturnal oximetry on room air on BiPAP. Diagnosis: HypoxiaPlease fax results to [phone] Attn: Glendy Lancets (ACCU-CHEK FASTCLIX) lancets Test glucose twice weekly. Dx: 250.00. Insulin Use: no blood sugar diagnostic test strip testing twice weekly dx 250.00 insulin no Blood-Glucose Meter, Drum-type (ACCU-CHEK COMPACT PLUS CARE) kit Test fasting blood sugar 1-2 times a week and 2 hrs post meal 1- 2 times a week. Blood-Glucose Meter (ONETOUCH ULTRA 2) monitoring kit 1 Each as needed. One Touch Meter Kit Diagnosis: Diabetes Mellitus Blood Glucose Control, Normal (OT ULTRA/FASTTRACK CONTROL) soln Test controls as needed. COMPOUNDED PRESCRIPTION BIPAP setting: IPAP 22cm water with heated humidification EPAP setting of 16cm with supplemental oxygen bleed in at 2lt per minute. Mask (per patient preference) and supplies for lifetime. Please add chin strap DX EDMOND 327.23 sucralfate (CARAFATE) 1 gram tablet Take 1 tablet by mouth three times daily before meals. 30 minutes before meals. No current facility-administered medications for this visit. 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 Alcohol use: Yes 31.5 oz/week Cans of Beer (12oz): 7, Mixed Drinks: 14 per week Comment: 2/beer/mixed drink daily Drug use: No Sexual activity: No Social History Narrative OARRS report reviewed October 22, 2011 Matt Taylor MD REVIEW OF SYSTEMS GENERAL: No weight loss, malaise or fevers RESPIRATORY: Negative for cough or shortness of breath. CARDIOVASCULAR: leg swelling stable. More erythema. Negative for chest pain, CHF or palpitations All other reviewed and negative other than HPI. OBJECTIVE: BP 118/60 Pulse 84 Temp 37.1 ?C (98.8 ?F) (Tympanic) Resp 16 Wt (!) 151.5 kg (334 lb) BMI 45.30 kg/m? APPEARANCE Well appearing, alert, in no acute distress, well-hydrated, well nourished., Morbidly obese HEART RRR with normal S1 and S2, no murmurs, no gallops, no JVD appreciated LUNG clear to auscultation EXTREMITIES 1+ pitting edema with significant venous stasis dermatitis evident b/l. Proximal calve with nontender eyrthema and petechiae. b/l. Left with significant erythema. Distal pulses difficult to palpation. Capillary refill wnl. ASSESSMENT/PLAN: 1. Cellulitis of skin - ICD9: 682.9, ICD10: L03.90 (primary diagnosis) - Possible cellulitis vs worsening vascular disease 2. Petechiae - ICD9: 782.7, ICD10: R23.3 Will check CBC/platelet counts. - CBC + DIFF 3. Bilateral leg edema - ICD9: 782.3, ICD10: R60.0 Discussed with patient possible consult to vascular specialist. patient declines at this time Continue with leg elevation and compression stocking/wraps. - CBC + DIFF Keep follow up as scheduled. LORI WILSONOV Observed: 12/30/2017 Status: COMPLETED Source: [place] 12:20 PM [facility] REPOSITORY Office Visit (FAMPWS) MAYCO KENDRICK ([id number]) 1940 M NFR Date Time Provider Department 12/30/17 12:20 PM RAYMOND MCCLOUD) [facility]AMPWS During your visit today, we recorded the following information about you: Temperature Pulse Respiration Blood pressure 98.8 degrees 84/minute 16/minute 118/60 Weight 151.5 kg Raymond Mccloud) 12/30/2017 1:02 PM Signed 12/30/2017 Patient presents with: Edema: patient is here edema or redness in legs SUBJECTIVE: This is a 77 year old that is here today for leg erythema. Patient has noticed more redness associated with his leg swelling No pain and no worsening swelling. States he started noticing it about 1 week ago. Using compression wraps/stockings daily. No associated chest pain or shortness of breath PAST MEDICAL HISTORY Diagnosis Date - Abdominal pain 08/11/2014 w some distention. Appears chronic -abdominal ultrasound - ACUTE GASTRITIS W/O HEMORRHAGE 12/21/2006 - Acute on chronic diastolic CHF (congestive heart failure), NYHA class 4 (HCC) 03/08/2014 H/o HFpEF with diastolic dysfunction, ICM 55% EF Presents with CP and SOB Weight gain 30lbs in last 3 months Currently SOB and volume overload, in setting of unstable angina (killip 3) Plan Continue Diuresis As above for possible restrictive CM - ALLERGIC RHINITIS NOS 05/03/2006 - Asthma - ASTHMA UNSPECIFIED - Benign neoplasm of colon - Benign neoplasm of rectum and anal canal - Bilateral leg edema 11/05/2008 - Bradycardia 08/11/2014 Patient with sinus bradycardia with Type 1 Mobitz since 2011 however Pulse dropping to high 30s with dizziness Plan: Place on tele for monitoring EP evaluation for ? Pacemaker with new onset of symptoms 2/2 to relative hypotension vs bradycardia Daily EKGs to evaluate rhythm, still appears to be Mobitz type 1 Keep K and Mag above 4 and 2 respectively - Carpal tunnel syndrome 03/28/2010 - Chest pain 07/26/2014 73 year old male transferred from OSH for Unstable angina, chest pain on a Nitro and heparin Drip. First set of enzymes was negative. No ST-T wave chanes on EKG Mobitz type 1 AV block (chronic) ALVERTO score 5 With associated SOB and Pulmonary edema on CXR (Killip class 3) Found not to have acute plaque rupture ?Restrictive cardiomyopathy Will need LHC (LVEDP) and RHC tomorrow - per Dr. Pepe would like Dr. Randall PLAN NPO at midnight Call Cath Charge in AM to confirm schedule and attending Continue diuresis Additionally: - ASA - Stop plavix - reduce Atorvastatin to 20mg (home dose, last LDL ~55) - Losartan - Chest pain with painful respiration 08/11/2014 Chest heaviness. Unstable angina ? 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 Resume as the bp normalizes. - IV lasix 40 mg once for now -resume home dose of lasix AND torsemide PO in the morning - Frequency of urination 02/01/2014 - GERD (gastroesophageal reflux disease) 09/05/2014 - Hand fracture, left 10/13/2011 - Heart block AV complete 05/11/2013 - Hip fracture, right ([facility]) 09/22/2012 Treated medically - History of prostatitis 04/11/2013 - Hyperlipidemia - Hypertension - Hypertrophy of nasal turbinates 07/06/2012 consult with [facility] 06/29/2012 Plan to schedule ablation of inferior turbinates @ [facility]. - Insomnia, unspecified 06/17/2011 OARRS report reviewed October 22, 2011 Matt Taylor MD - Leg swelling - Lumbago 05/11/2007 - MALIGN NEOPL PROSTATE - Mobitz (type) I (Wenckebach's) atrioventricular block 07/26/[address] Eric Go in 2012. Chronic conduction abnormality. does not need a pacemaker. Here with concern for ACS EKG: mobitz type 1, unchanged from prior, no ST-T wave changes BP stable Plan: Monitor Avoiding BB - Morbid obesity 06/02/2011 07/08/2017: H: 72 in, W: 358 lb, BMI 48.54. 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 01/18/2014 - Type II or unspecified type diabetes mellitus without mention of complication, not stated as uncontrolled - Unspecified sleep apnea CPAP 18 with 1L - Urgency of urination 02/01/2014 ALLERGIES Lisinopril; Sertraline MEDICATIONS Current Outpatient Prescriptions: ammonium lactate (LAC-HYDRIN) 12 % cream Apply 1 application to affected area twice daily as needed. aluminum AND magnesium hydroxide-simethicone (MAALOX PLUS EXTRA STRENGTH) 400-400-40 mg/5 mL suspension Take 20 mL by mouth every 6 hours as needed (upset stomach). HYDROcodone-acetaminophen (NORCO) 5-325 mg per tablet Take 1 tablet by mouth every 6 hours as needed. rivaroxaban (XARELTO) 20 mg tablet Take 1 tablet by mouth daily with dinner. pantoprazole DR (PROTONIX) 40 mg tablet Take 1 tablet by mouth daily before breakfast. Take on empty stomach, 1/2 hr before meal. Per Gastroenterology furosemide (LASIX) 80 mg tablet One PO daily in AM furosemide (LASIX) 40 mg tablet One PO daily at dinner oxybutynin (DITROPAN) 5 mg tablet Take 1 tablet by mouth three times daily. glimepiride (AMARYL) 1 mg tablet Take 1 tablet by mouth daily with breakfast. metoprolol tartrate, short acting, (LOPRESSOR) 25 mg tablet Take 1 tablet by mouth every 12 hours. ketoconazole (NIZORAL) 2 % shampoo Use as a body wash, most specifically the chest, daily for itching and flaking; may keep in own shower triamcinolone acetonide (KENALOG) 0.1 % cream Apply to itching rash on chest twice daily ONLY when needed; may keep in room atorvastatin (LIPITOR) 80 mg tablet Take 1 tablet by mouth once daily. tamsulosin ER (FLOMAX) 0.4 mg cp24 Take 1 capsule by mouth every evening. for prostate metFORMIN (GLUCOPHAGE) 500 mg tablet Take 1 tablet by mouth three times daily with meals. nitroglycerin sublingual (NITROSTAT) 0.4 mg SL tablet Take 1 tablet by mouth as needed. for chest pain; dissolve on tongue. If no pain relief call 911. traZODone (DESYREL) 50 mg tablet Take 1 tablet by mouth at bedtime as needed (sedation). Ranitidine HCl 300 mg tablet Take with evening meal. magnesium oxide (MAG-OX) 400 mg tablet Take 1 tablet by mouth once daily. docusate sodium (DOC-Q-LACE) 100 mg capsule Take 1 capsule by mouth once daily. COMPOUNDED PRESCRIPTION Please eval and fix any issues with walker.Dx: I50.33, I25.10, E66.01, M54.42, M25.551 bisacodyl (DULCOLAX) 10 mg supp 1 Suppository by RECTAL route once daily as needed (for constipation). polyethylene glycol 3350 (MIRALAX, GLYCOLAX) 17 gram/dose powder 17 g up to twice daily as needed prn constipation aspirin, enteric coated (ADULT LOW DOSE ASPIRIN) 81 mg EC tablet Take 1 tablet by mouth once daily. COMPOUNDED PRESCRIPTION Glucometer high/low test solution for accucheck. DX: DM COMPOUNDED PRESCRIPTION Please perform a nocturnal oximetry on room air on BiPAP. Diagnosis: HypoxiaPlease fax results to [phone] Attn: Glendy Lancets (ACCU-CHEK FASTCLIX) lancets Test glucose twice weekly. Dx: 250.00. Insulin Use: no blood sugar diagnostic test strip testing twice weekly dx 250.00 insulin no Blood-Glucose Meter, Drum-type (ACCU-CHEK COMPACT PLUS CARE) kit Test fasting blood sugar 1-2 times a week and 2 hrs post meal 1-2 times a week. Blood-Glucose Meter (ONETOUCH ULTRA 2) monitoring kit 1 Each as needed. One Touch Meter Kit Diagnosis: Diabetes Mellitus Blood Glucose Control, Normal (OT ULTRA/FASTTRACK CONTROL) soln Test controls as needed. COMPOUNDED PRESCRIPTION BIPAP setting: IPAP 22cm water with heated humidification EPAP setting of 16cm with supplemental oxygen bleed in at 2lt per minute. Mask (per patient preference) and supplies for lifetime. Please add chin strap DX EDMOND 327.23 sucralfate (CARAFATE) 1 gram tablet Take 1 tablet by mouth three times daily before meals. 30 minutes before meals. No current facility-administered medications for this visit. 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 Alcohol use: Yes 31.5 oz/week Cans of Beer (12oz): 7, Mixed Drinks: 14 per week Comment: 2/beer/mixed drink daily Drug use: No Sexual activity: No Social History Narrative OARRS report reviewed October 22, 2011 Matt Taylor MD REVIEW OF SYSTEMS GENERAL: No weight loss, malaise or fevers RESPIRATORY: Negative for cough or shortness of breath. CARDIOVASCULAR: leg swelling stable. More erythema. Negative for chest pain, CHF or palpitations All other reviewed and negative other than HPI. OBJECTIVE: BP 118/60 Pulse 84 Temp 37.1 ?C (98.8 ?F) (Tympanic) Resp 16 Wt (!) 151.5 kg (334 lb) BMI 45.30 kg/m? APPEARANCE Well appearing, alert, in no acute distress, well- hydrated, well nourished., Morbidly obese HEART RRR with normal S1 and S2, no murmurs, no gallops, no JVD appreciated LUNG clear to auscultation EXTREMITIES 1+ pitting edema with significant venous stasis dermatitis evident b/l. Proximal calve with nontender eyrthema and petechiae. b/l. Left with significant erythema. Distal pulses difficult to palpation. Capillary refill wnl. ASSESSMENT/PLAN: 1. Cellulitis of skin - ICD9: 682.9, ICD10: L03.90 (primary diagnosis) - Possible cellulitis vs worsening vascular disease 2. Petechiae - ICD9: 782.7, ICD10: R23.3 Will check CBC/platelet counts. - CBC + DIFF 3. Bilateral leg edema - ICD9: 782.3, ICD10: R60.0 Discussed with patient possible consult to vascular specialist. patient declines at this time Continue with leg elevation and compression stocking/wraps. - CBC + DIFF Keep follow up as scheduled. LORI WILSON Rayanne(Lori) 12/30/2017 12:47 PM Signed Start antibiotic for possible cellulitis. Keep follow up as scheduled. Referring Provider: BERTRAND LEON [[id number]] Allergies As of Date: 12/30/2017 Noted Allergy Reaction LISINOPRIL 05/31/2014 14 - Other: See Comments Comments: Metallic taste in mouth. SERTRALINE 05/02/2013 8 - GI Upset Date Reviewed: 12/30/2017 Reviewed by: Siomara Bo Ma - Fully Assessed Reason for Visit: Edema [39] Cmt: patient is here edema or redness in legs Primary Visit Diagnosis:Cellulitis of skin [L03.90] Other Visit Diagnoses:Petechiae [R23.3] Bilateral leg edema [R60.0] Order(s):CBC + DIFF [SQCBCDIF] Order #: [id number] FUTURE cefADROxil (DURICEF) 500 mg capsuleTake 1 capsule by mouth twice daily for 10 days.Disp: 20 capsuleRfl: 0 Prescriptions as of 12/30/2017 Sig: AMMONIUM LACTATE 12 % TOPICAL* Apply 1 application to affect* ALUMINUM-MAG HYDROXIDE-SIMETH* Take 20 mL by mouth every 6 h* HYDROCODONE 5 MG-ACETAMINOPHE* Take 1 tablet by mouth every * RIVAROXABAN 20 MG TABLET Take 1 tablet by mouth daily * PANTOPRAZOLE 40 MG TABLET,DEL* Take 1 tablet by mouth daily * FUROSEMIDE 80 MG TABLET One PO daily in AM FUROSEMIDE 40 MG TABLET One PO daily at dinner OXYBUTYNIN CHLORIDE 5 MG TABL* Take 1 tablet by mouth three * GLIMEPIRIDE 1 MG TABLET Take 1 tablet by mouth daily * METOPROLOL TARTRATE 25 MG TAB* Take 1 tablet by mouth every * KETOCONAZOLE 2 % SHAMPOO Use as a body wash, most spec* TRIAMCINOLONE ACETONIDE 0.1 %* Apply to itching rash on ches* ATORVASTATIN 80 MG TABLET Take 1 tablet by mouth once d* TAMSULOSIN 0.4 MG CAPSULE Take 1 capsule by mouth every* METFORMIN 500 MG TABLET Take 1 tablet by mouth three * NITROGLYCERIN 0.4 MG SUBLINGU* Take 1 tablet by mouth as nee* TRAZODONE 50 MG TABLET Take 1 tablet by mouth at bed* RANITIDINE 300 MG TABLET Take with evening meal. MAGNESIUM OXIDE 400 MG TABLET Take 1 tablet by mouth once d* DOCUSATE SODIUM 100 MG CAPSULE Take 1 capsule by mouth once * COMPOUNDED PRESCRIPTION Please eval and fix any issue* BISACODYL 10 MG RECTAL SUPPOS* 1 Suppository by RECTAL route* POLYETHYLENE GLYCOL 3350 17 G* 17 g up to twice daily as nee* ASPIRIN 81 MG TABLET,DELAYED * Take 1 tablet by mouth once d* COMPOUNDED PRESCRIPTION Glucometer high/low test solu* COMPOUNDED PRESCRIPTION Please perform a nocturnal ox* LANCETS Test glucose twice weekly. Dx* BLOOD SUGAR DIAGNOSTIC STRIPS testing twice weekly dx 250* BLOOD-GLUCOSE METER, DRUM-TYP* Test fasting blood sugar 1-2 * BLOOD-GLUCOSE METER KIT 1 Each as needed. One Touch M* BLOOD GLUCOSE CONTROL, NORMAL* Test controls as needed. * COMPOUNDED PRESCRIPTION BIPAP setting: IPAP 22cm wate* CEFADROXIL 500 MG CAPSULE Take 1 capsule by mouth twice* SUCRALFATE 1 GRAM TABLET Take 1 tablet by mouth three * Problem List As Of Date 12/30/2017 Noted Resolved Mild intermittent asthma without complication [* Priority: A MALIGN NEOPL PROSTATE [C61] Priority: B More... Type II or unspecified type diabetes mellitus w* 01/18/2014 Allergic rhinitis, cause unspecified [J30.9] INVALID FOR* Priority: B More... Personal history of colonic polyps [Z86.010] Priority: C More... Lumbago [M54.5] INVALID FOR* Priority: M Bilateral leg edema [R60.0] INVALID FOR* Priority: A Carpal tunnel syndrome [G56.00] INVALID FOR* Priority: M Essential hypertension, benign [I10] INVALID FOR* Priority: A More... Insomnia, unspecified [G47.00] INVALID FOR* Priority: B More... Benign neoplasm of rectum and anal canal [D12.8*INVALID FOR* Priority: C Diverticulosis of colon (without mention of hem*INVALID FOR* Priority: C Hypertrophy of nasal turbinates [J34.3] INVALID FOR* Priority: C More... 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 More... More... EDMOND (obstructive sleep apnea) [G47.33] INVALID FOR* Priority: B More... Mobitz (type) I (Wekathiekebach's) atrioventricular*INVALID FOR* Priority: A More... More... Mixed hyperlipidemia [E78.2] INVALID FOR* Priority: A More... DVT prophylaxis [PFF9500] INVALID FOR*07/26/2014 More... More... More... More... More... More... Bradycardia [R00.1] INVALID FOR* Priority: A More... Venous stasis dermatitis of both lower extremit*INVALID FOR* Priority: B Counseling and coordination of care [Z71.89] INVALID FOR*04/12/2015 More... Hypomagnesemia [E83.42] INVALID FOR* Priority: B Diabetic eye exam (HCC) [Z01.00, E11.9] INVALID FOR* Priority: A More... Dry mouth [R68.2] INVALID FOR* Priority: B Noncompliance [Z91.19] INVALID FOR* Gastroesophageal reflux disease without esophag*INVALID FOR* Priority: A Coronary atherosclerosis due to lipid rich plaq*INVALID FOR* Priority: A Morbid obesity due to excess calories (HCC) [E6*INVALID FOR* Priority: B More... Essential tremor [G25.0] INVALID FOR* Priority: B Chronic cough [R05] INVALID FOR* Priority: B Well adult exam [Z00.00] INVALID FOR* Priority: E More... Controlled type 2 diabetes mellitus with diabet*INVALID FOR* Priority: A Depression [F32.9] INVALID FOR* Priority: A Multiple open wounds of lower leg [S81.809A] INVALID FOR* Priority: D Colon cancer screening [Z12.11] INVALID FOR* Chest pain [R07.9] INVALID FOR* Priority: B More... Second degree heart block [I44.1] INVALID FOR* Priority: A More... Atherosclerosis of coronary artery bypass graft*INVALID FOR* Priority: A More... More... More... More... Hypoxia [R09.02] INVALID FOR* Chronic bilateral low back pain with left-sided*INVALID FOR* Priority: M Bilateral hip pain [M25.551, M25.552] INVALID FOR* Priority: M Paroxysmal atrial fibrillation (HCC) [I48.0] INVALID FOR* Priority: A More... 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 Right carpal tunnel syndrome [G56.01] INVALID FOR* Priority: M More... Presence of cardiac pacemaker [Z95.0] INVALID FOR* Priority: B Esophagitis [K20.9] INVALID FOR* Albuminuria [R80.9] INVALID FOR* Priority: A Carpal tunnel syndrome, bilateral [G56.03] INVALID FOR* Priority: M More... Ulnar nerve compression, right [G56.21] INVALID FOR* Priority: M More... Current use of proton pump inhibitor [Z79.899] INVALID FOR* Other instructions from your clinician: Start antibiotic for possible cellulitis. Keep follow up as scheduled. Prescriptions ordered this encounter Disp Refills Start End CEFADROXIL 500 MG CAPSULE 20 c* 0 12/30/2017 01/09/2018 Route: ORAL Sig: Take 1 capsule by mouth twice daily for 10 days. Encounter Status:Closed by MELLY BECKER on 12/30/17 PROGRESS Observed: 12/30/2017 Status: COMPLETED Source: [place] 10:22 AM [facility] REPOSITORY HNO ID: [id number] Author: Ruddy Chavez Service: (none) Author Type: Physician Type: Progress Notes Filed: 12/30/2017 1:07 PM Note Text: Ruddy Chavez MD Department of Orthopaedics Orthopaedics [address] [facility] [address] Dept: [phone] Dept December 30, 2017 CHIEF COMPLAINT: Established Patient (Left ulnar nerve neuropathy ) Mr. Mayco Kendrick is a 77 year old male returns many months after having his right ulnar nerve as well as carpal tunnel release. He's doing great from that side and states he has 0 pain. The left side continues to cause him numbness and tingling in multiple digits of the hand with soreness in the elbow. He did so well on the right side that he would like to consider surgery on the left. 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 He would like to pursue surgery. OBJECTIVE: Mr. Mayco Kendrick is a pleasant 77 year old in no apparent distress. Gen:There were no vitals taken for this visit. nl development, morbidly obese, no deformities ENT: Normocephalic, normal hearing, moist mucosa CV: Pulses:Radial= 2+ and symmetric, capillary refill < 2 secs, no peripheral edema/varicosities Skin: no rash, bruising or lesions. Good turgor. Psych: cooperative and appropriate, alert and oriented x 3, good mood and affect. Musculoskeletal: right palm and elbow incisions healed nicely. Excellent range of motion. Appears he does have some improvement in the posture of the hand with the small digit as well as increased strength from prior visits. Sensation appears grossly intact. Left hand has diminished light touch sensation in the median and ulnar nerve distributions. He has some very minor clawing of the small digit with decreased intrinsic strength. Positive Froment's. no significant or obvious atrophy. electrodiagnostics: Nerve testing was again reviewed which previously showed severe bilateral ulnar neuropathy as well as moderately severe, bilateral carpal tunnel syndrome. Supporting Subjective Information Below: Past Surgical History: PAST SURGICAL HISTORY Procedure Laterality Date - CABG, ARTERY-VEIN, TWO 1998 CABG, two grafts - CHOLECYSTECTOMY HX 10/14/2015 gangrenous gallbladder - COLONOSCOP W/ OR W/O [facility] SPEC 01/27/2005 Colonoscopy - COLONOSCOP W/ OR W/O [facility] SPE[facility] 12/21/2006` repeat in -2011 - COLONOSCOP W/ OR W/O [facility] SPE[facility] 05/18/2012 Colonoscopy repeat 5 years - COLONOSCOPY 12/29/2016 repeat 10 yrs - EGD 12/29/2016 - EGD W/O [facility] SPECIMEN W/BX 12/21/06 - EGD W/O OR W/BRUSH/WASH 01/27/2005 EGD - EGD W/O OR W/BRUSH/WASH 11/21/14 EGD - OPEN CORONARY ENDARTERECTOMY 1999 Angioplasty with stent placement - PACEMAKER 2016 - REMOVAL OF TONSILS,<12 Y/O Tonsillectomy - REPAIR RETINAL DETACH, C 10/2010 - REVISE MEDIAN N/CARPAL TUNNEL SURG Right 09/10/2017 Right CTR - REVISE ULNAR NERVE AT ELBOW Right 09/10/2017 Right ulnar nerve decompression - TOTAL HIP REPLACEMENT 2000 Hip replacement, total, right - TOTAL HIP REPLACEMENT 2001 Hip replacement, total, left Medications: Current Outpatient Prescriptions: ammonium lactate (LAC-HYDRIN) 12 % cream Apply 1 application to affected area twice daily as needed. aluminum AND magnesium hydroxide-simethicone (MAALOX PLUS EXTRA STRENGTH) 400-400-40 mg/5 mL suspension Take 20 mL by mouth every 6 hours as needed (upset stomach). rivaroxaban (XARELTO) 20 mg tablet Take 1 tablet by mouth daily with dinner. pantoprazole DR (PROTONIX) 40 mg tablet Take 1 tablet by mouth daily before breakfast. Take on empty stomach, 1/2 hr before meal. Per Gastroenterology furosemide (LASIX) 80 mg tablet One PO daily in AM furosemide (LASIX) 40 mg tablet One PO daily at dinner oxybutynin (DITROPAN) 5 mg tablet Take 1 tablet by mouth three times daily. glimepiride (AMARYL) 1 mg tablet Take 1 tablet by mouth daily with breakfast. metoprolol tartrate, short acting, (LOPRESSOR) 25 mg tablet Take 1 tablet by mouth every 12 hours. atorvastatin (LIPITOR) 80 mg tablet Take 1 tablet by mouth once daily. tamsulosin ER (FLOMAX) 0.4 mg cp24 Take 1 capsule by mouth every evening. for prostate metFORMIN (GLUCOPHAGE) 500 mg tablet Take 1 tablet by mouth three times daily with meals. nitroglycerin sublingual (NITROSTAT) 0.4 mg SL tablet Take 1 tablet by mouth as needed. for chest pain; dissolve on tongue. If no pain relief call 911. traZODone (DESYREL) 50 mg tablet Take 1 tablet by mouth at bedtime as needed (sedation). Ranitidine HCl 300 mg tablet Take with evening meal. magnesium oxide (MAG-OX) 400 mg tablet Take 1 tablet by mouth once daily. docusate sodium (DOC-Q-LACE) 100 mg capsule Take 1 capsule by mouth once daily. COMPOUNDED PRESCRIPTION Please eval and fix any issues with walker.Dx: I50.33, I25.10, E66.01, M54.42, M25.551 bisacodyl (DULCOLAX) 10 mg supp 1 Suppository by RECTAL route once daily as needed (for constipation). polyethylene glycol 3350 (MIRALAX, GLYCOLAX) 17 gram/dose powder 17 g up to twice daily as needed prn constipation aspirin, enteric coated (ADULT LOW DOSE ASPIRIN) 81 mg EC tablet Take 1 tablet by mouth once daily. COMPOUNDED PRESCRIPTION Glucometer high/low test solution for accucheck. DX: DM COMPOUNDED PRESCRIPTION Please perform a nocturnal oximetry on room air on BiPAP. Diagnosis: HypoxiaPlease fax results to [phone] Attn: Glendy blood sugar diagnostic test strip testing twice weekly dx 250.00 insulin no Blood-Glucose Meter, Drum-type (ACCU-CHEK COMPACT PLUS CARE) kit Test fasting blood sugar 1-2 times a week and 2 hrs post meal 1- 2 times a week. Blood-Glucose Meter (ONETOUCH ULTRA 2) monitoring kit 1 Each as needed. One Touch Meter Kit Diagnosis: Diabetes Mellitus Blood Glucose Control, Normal (OT ULTRA/FASTTRACK CONTROL) soln Test controls as needed. COMPOUNDED PRESCRIPTION BIPAP setting: IPAP 22cm water with heated humidification EPAP setting of 16cm with supplemental oxygen bleed in at 2lt per minute. Mask (per patient preference) and supplies for lifetime. Please add chin strap DX EDMOND 327.23 HYDROcodone-acetaminophen (NORCO) 5-325 mg per tablet Take 1 tablet by mouth every 6 hours as needed. sucralfate (CARAFATE) 1 gram tablet Take 1 tablet by mouth three times daily before meals. 30 minutes before meals. ketoconazole (NIZORAL) 2 % shampoo Use as a body wash, most specifically the chest, daily for itching and flaking; may keep in own shower triamcinolone acetonide (KENALOG) 0.1 % cream Apply to itching rash on chest twice daily ONLY when needed; may keep in room Lancets (ACCU-CHEK FASTCLIX) lancets Test glucose twice weekly. Dx: 250.00. Insulin Use: no No current facility-administered medications for this visit. Allergies: Lisinopril; Sertraline ROS: General (negative for fatigue, malaise, weight loss/gain) HEENT (negative for headache, earache, recent vision changes, sinus pain, sore throat) Respiratory (no recent shortness of breath, hemoptysis) CV (negative for chest tightness, palpitations) Musculoskeletal (see HPI) Psych (no depression, anxiety) This note was partially generated using [employer] voice recognition system, and there may be some incorrect words, spellings, and punctuation that were not noted in checking the note before saving. Ruddy Chavez MD PROGRESS Observed: 12/30/2017 Status: COMPLETED Source: [place] 9:44 AM [facility] REPOSITORY HNO ID: [id number] Author: Beba Carter Ma Service: (none) Author Type: (none) Type: Progress Notes Filed: 12/30/2017 1:07 PM Note Text: [facility] ROOMING INTAKE FLOWSHEET DATA Risk Screening Do you have concerns about personal safety or safety in the home?: No Pain Pain Score: 0/10 Pain Location: Hand-Right Description: Tingling, Numbness Duration Amount of Time: (ongoing) Frequency: Continuous Intervention: Other: See comment (none) Patient here today for evaluation of left hand numbness and tingling. He sometimes will get symptoms up to the elbow. Right elbow and hand are doing great. CNOV Observed: 12/30/2017 Status: COMPLETED Source: [place] 9:25 AM [facility] REPOSITORY Office Visit (ORTHWS) MAYCO KENDRICK ([id number]) 1940 M [facility] Date Time Provider Department 12/30/17 9:25 AM RUDDY CHAVEZ During your visit today, we recorded the following information about you: Beba Carter Ma 12/30/2017 1:07 PM Signed [facility] Risk Screening Do you have concerns about personal safety or safety in the home?: No Pain Pain Score: 0/10 Pain Location: Hand-Right Description: Tingling, Numbness Duration Amount of Time: (ongoing) Frequency: Continuous Intervention: Other: See comment (none) Patient here today for evaluation of left hand numbness and tingling. He sometimes will get symptoms up to the elbow. Right elbow and hand are doing great. Ruddy Chavez 12/30/2017 1:07 PM Signed Ruddy Chavez MD Department of Orthopaedics Orthopaedics [address] [facility] [address] Dept: [phone] Dept December 30, 2017 CHIEF COMPLAINT: Established Patient (Left ulnar nerve neuropathy ) Mr. Mayco Kendrick is a 77 year old male returns many months after having his right ulnar nerve as well as carpal tunnel release. He's doing great from that side and states he has 0 pain. The left side continues to cause him numbness and tingling in multiple digits of the hand with soreness in the elbow. He did so well on the right side that he would like to consider surgery on the left. 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 He would like to pursue surgery. OBJECTIVE: Mr. Mayco Kendrick is a pleasant 77 year old in no apparent distress. Gen:There were no vitals taken for this visit. nl development, morbidly obese, no deformities ENT: Normocephalic, normal hearing, moist mucosa CV: Pulses:Radial= 2+ and symmetric, capillary refill < 2 secs, no peripheral edema/varicosities Skin: no rash, bruising or lesions. Good turgor. Psych: cooperative and appropriate, alert and oriented x 3, good mood and affect. Musculoskeletal: right palm and elbow incisions healed nicely. Excellent range of motion. Appears he does have some improvement in the posture of the hand with the small digit as well as increased strength from prior visits. Sensation appears grossly intact. Left hand has diminished light touch sensation in the median and ulnar nerve distributions. He has some very minor clawing of the small digit with decreased intrinsic strength. Positive Froment's. no significant or obvious atrophy. electrodiagnostics: Nerve testing was again reviewed which previously showed severe bilateral ulnar neuropathy as well as moderately severe, bilateral carpal tunnel syndrome. Supporting Subjective Information Below: Past Surgical History: PAST SURGICAL HISTORY Procedure Laterality Date - CABG, ARTERY-VEIN, TWO 1998 CABG, two grafts - CHOLECYSTECTOMY HX 10/14/2015 gangrenous gallbladder - COLONOSCOP W/ OR W/O [facility] SPEC 01/27/2005 Colonoscopy - COLONOSCOP W/ OR W/O [facility] SPE[facility] 12/21/2006` repeat in 5-2011 - COLONOSCOP W/ OR W/O [facility] SPE[facility] 05/18/2012 Colonoscopy repeat 5 years - COLONOSCOPY 12/29/2016 repeat 10 yrs - EGD 12/29/2016 - EGD W/O [facility] SPECIMEN W/BX 12/21/06 - EGD W/O OR W/BRUSH/WASH 01/27/2005 EGD - EGD W/O OR W/BRUSH/WASH 11/21/14 EGD - OPEN CORONARY ENDARTERECTOMY 1999 Angioplasty with stent placement - PACEMAKER 2016 - REMOVAL OF TONSILS,<12 Y/O Tonsillectomy - REPAIR RETINAL DETACH, C 10/2010 - REVISE MEDIAN N/CARPAL TUNNEL SURG Right 09/10/2017 Right CTR - REVISE ULNAR NERVE AT ELBOW Right 09/10/2017 Right ulnar nerve decompression - TOTAL HIP REPLACEMENT 2000 Hip replacement, total, right - TOTAL HIP REPLACEMENT 2001 Hip replacement, total, left Medications: Current Outpatient Prescriptions: ammonium lactate (LAC-HYDRIN) 12 % cream Apply 1 application to affected area twice daily as needed. aluminum AND magnesium hydroxide-simethicone (MAALOX PLUS EXTRA STRENGTH) 400-400-40 mg/5 mL suspension Take 20 mL by mouth every 6 hours as needed (upset stomach). rivaroxaban (XARELTO) 20 mg tablet Take 1 tablet by mouth daily with dinner. pantoprazole DR (PROTONIX) 40 mg tablet Take 1 tablet by mouth daily before breakfast. Take on empty stomach, 1/2 hr before meal. Per Gastroenterology furosemide (LASIX) 80 mg tablet One PO daily in AM furosemide (LASIX) 40 mg tablet One PO daily at dinner oxybutynin (DITROPAN) 5 mg tablet Take 1 tablet by mouth three times daily. glimepiride (AMARYL) 1 mg tablet Take 1 tablet by mouth daily with breakfast. metoprolol tartrate, short acting, (LOPRESSOR) 25 mg tablet Take 1 tablet by mouth every 12 hours. atorvastatin (LIPITOR) 80 mg tablet Take 1 tablet by mouth once daily. tamsulosin ER (FLOMAX) 0.4 mg cp24 Take 1 capsule by mouth every evening. for prostate metFORMIN (GLUCOPHAGE) 500 mg tablet Take 1 tablet by mouth three times daily with meals. nitroglycerin sublingual (NITROSTAT) 0.4 mg SL tablet Take 1 tablet by mouth as needed. for chest pain; dissolve on tongue. If no pain relief call 911. traZODone (DESYREL) 50 mg tablet Take 1 tablet by mouth at bedtime as needed (sedation). Ranitidine HCl 300 mg tablet Take with evening meal. magnesium oxide (MAG-OX) 400 mg tablet Take 1 tablet by mouth once daily. docusate sodium (DOC-Q-LACE) 100 mg capsule Take 1 capsule by mouth once daily. COMPOUNDED PRESCRIPTION Please eval and fix any issues with walker.Dx: I50.33, I25.10, E66.01, M54.42, M25.551 bisacodyl (DULCOLAX) 10 mg supp 1 Suppository by RECTAL route once daily as needed (for constipation). polyethylene glycol 3350 (MIRALAX, GLYCOLAX) 17 gram/dose powder 17 g up to twice daily as needed prn constipation aspirin, enteric coated (ADULT LOW DOSE ASPIRIN) 81 mg EC tablet Take 1 tablet by mouth once daily. COMPOUNDED PRESCRIPTION Glucometer high/low test solution for accucheck. DX: DM COMPOUNDED PRESCRIPTION Please perform a nocturnal oximetry on room air on BiPAP. Diagnosis: HypoxiaPlease fax results to [phone] Attn: Glendy blood sugar diagnostic test strip testing twice weekly dx 250.00 insulin no Blood-Glucose Meter, Drum-type (ACCU-CHEK COMPACT PLUS CARE) kit Test fasting blood sugar 1-2 times a week and 2 hrs post meal 1-2 times a week. Blood-Glucose Meter (ONETOUCH ULTRA 2) monitoring kit 1 Each as needed. One Touch Meter Kit Diagnosis: Diabetes Mellitus Blood Glucose Control, Normal (OT ULTRA/FASTTRACK CONTROL) soln Test controls as needed. COMPOUNDED PRESCRIPTION BIPAP setting: IPAP 22cm water with heated humidification EPAP setting of 16cm with supplemental oxygen bleed in at 2lt per minute. Mask (per patient preference) and supplies for lifetime. Please add chin strap DX EDMOND 327.23 HYDROcodone-acetaminophen (NORCO) 5-325 mg per tablet Take 1 tablet by mouth every 6 hours as needed. sucralfate (CARAFATE) 1 gram tablet Take 1 tablet by mouth three times daily before meals. 30 minutes before meals. ketoconazole (NIZORAL) 2 % shampoo Use as a body wash, most specifically the chest, daily for itching and flaking; may keep in own shower triamcinolone acetonide (KENALOG) 0.1 % cream Apply to itching rash on chest twice daily ONLY when needed; may keep in room Lancets (ACCU-CHEK FASTCLIX) lancets Test glucose twice weekly. Dx: 250.00. Insulin Use: no No current facility-administered medications for this visit. Allergies: Lisinopril; Sertraline ROS: General (negative for fatigue, malaise, weight loss/gain) HEENT (negative for headache, earache, recent vision changes, sinus pain, sore throat) Respiratory (no recent shortness of breath, hemoptysis) CV (negative for chest tightness, palpitations) Musculoskeletal (see HPI) Psych (no depression, anxiety) This note was partially generated using Cellay voice recognition system, and there may be some incorrect words, spellings, and punctuation that were not noted in checking the note before saving. Ruddy Chavez MD Referring Provider: JOAN NOE) [[id number]] Allergies As of Date: 12/30/2017 Noted Allergy Reaction LISINOPRIL 05/31/2014 14 - Other: See Comments Comments: Metallic taste in mouth. SERTRALINE 05/02/2013 8 - GI Upset Date Reviewed: 12/30/2017 Reviewed by: Ruddy Chavez - Fully Assessed Reason for Visit: Established Patient [175] Cmt: Left ulnar nerve neuropathy Primary Visit Diagnosis:Ulnar neuropathy at elbow of left upper extremity [G56.22] Other Visit Diagnosis:Carpal tunnel syndrome of left wrist [G56.02] Prescriptions as of 12/30/2017 Sig: AMMONIUM LACTATE 12 % TOPICAL* Apply 1 application to affect* ALUMINUM-MAG HYDROXIDE-SIMETH* Take 20 mL by mouth every 6 h* RIVAROXABAN 20 MG TABLET Take 1 tablet by mouth daily * PANTOPRAZOLE 40 MG TABLET,DEL* Take 1 tablet by mouth daily * FUROSEMIDE 80 MG TABLET One PO daily in AM FUROSEMIDE 40 MG TABLET One PO daily at dinner OXYBUTYNIN CHLORIDE 5 MG TABL* Take 1 tablet by mouth three * GLIMEPIRIDE 1 MG TABLET Take 1 tablet by mouth daily * METOPROLOL TARTRATE 25 MG TAB* Take 1 tablet by mouth every * ATORVASTATIN 80 MG TABLET Take 1 tablet by mouth once d* TAMSULOSIN 0.4 MG CAPSULE Take 1 capsule by mouth every* METFORMIN 500 MG TABLET Take 1 tablet by mouth three * NITROGLYCERIN 0.4 MG SUBLINGU* Take 1 tablet by mouth as nee* TRAZODONE 50 MG TABLET Take 1 tablet by mouth at bed* RANITIDINE 300 MG TABLET Take with evening meal. MAGNESIUM OXIDE 400 MG TABLET Take 1 tablet by mouth once d* DOCUSATE SODIUM 100 MG CAPSULE Take 1 capsule by mouth once * COMPOUNDED PRESCRIPTION Please eval and fix any issue* BISACODYL 10 MG RECTAL SUPPOS* 1 Suppository by RECTAL route* POLYETHYLENE GLYCOL 3350 17 G* 17 g up to twice daily as nee* ASPIRIN 81 MG TABLET,DELAYED * Take 1 tablet by mouth once d* COMPOUNDED PRESCRIPTION Glucometer high/low test solu* COMPOUNDED PRESCRIPTION Please perform a nocturnal ox* BLOOD SUGAR DIAGNOSTIC STRIPS testing twice weekly dx 250* BLOOD-GLUCOSE METER, DRUM-TYP* Test fasting blood sugar 1-2 * BLOOD-GLUCOSE METER KIT 1 Each as needed. One Touch M* BLOOD GLUCOSE CONTROL, NORMAL* Test controls as needed. * COMPOUNDED PRESCRIPTION BIPAP setting: IPAP 22cm wate* HYDROCODONE 5 MG-ACETAMINOPHE* Take 1 tablet by mouth every * SUCRALFATE 1 GRAM TABLET Take 1 tablet by mouth three * KETOCONAZOLE 2 % SHAMPOO Use as a body wash, most spec* TRIAMCINOLONE ACETONIDE 0.1 %* Apply to itching rash on ches* LANCETS Test glucose twice weekly. Dx* Problem List As Of Date 12/30/2017 Noted Resolved Mild intermittent asthma without complication [* Priority: A MALIGN NEOPL PROSTATE [C61] Priority: B More... Type II or unspecified type diabetes mellitus w* 01/18/2014 Allergic rhinitis, cause unspecified [J30.9] INVALID FOR* Priority: B More... Personal history of colonic polyps [Z86.010] Priority: C More... Lumbago [M54.5] INVALID FOR* Priority: M Bilateral leg edema [R60.0] INVALID FOR* Priority: A Carpal tunnel syndrome [G56.00] INVALID FOR* Priority: M Essential hypertension, benign [I10] INVALID FOR* Priority: A More... Insomnia, unspecified [G47.00] INVALID FOR* Priority: B More... Benign neoplasm of rectum and anal canal [D12.8*INVALID FOR* Priority: C Diverticulosis of colon (without mention of hem*INVALID FOR* Priority: C Hypertrophy of nasal turbinates [J34.3] INVALID FOR* Priority: C More... 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 More... More... EDMOND (obstructive sleep apnea) [G47.33] INVALID FOR* Priority: B More... Mobitz (type) I (Wenckebach's) atrioventricular*INVALID FOR* Priority: A More... More... Mixed hyperlipidemia [E78.2] INVALID FOR* Priority: A More... DVT prophylaxis [RFR7968] INVALID FOR*07/26/2014 More... More... More... More... More... More... Bradycardia [R00.1] INVALID FOR* Priority: A More... Venous stasis dermatitis of both lower extremit*INVALID FOR* Priority: B Counseling and coordination of care [Z71.89] INVALID FOR*04/12/2015 More... Hypomagnesemia [E83.42] INVALID FOR* Priority: B Diabetic eye exam (HCC) [Z01.00, E11.9] INVALID FOR* Priority: A More... Dry mouth [R68.2] INVALID FOR* Priority: B Noncompliance [Z91.19] INVALID FOR* Gastroesophageal reflux disease without esophag*INVALID FOR* Priority: A Coronary atherosclerosis due to lipid rich plaq*INVALID FOR* Priority: A Morbid obesity due to excess calories (HCC) [E6*INVALID FOR* Priority: B More... Essential tremor [G25.0] INVALID FOR* Priority: B Chronic cough [R05] INVALID FOR* Priority: B Well adult exam [Z00.00] INVALID FOR* Priority: E More... Controlled type 2 diabetes mellitus with diabet*INVALID FOR* Priority: A Depression [F32.9] INVALID FOR* Priority: A Multiple open wounds of lower leg [S81.809A] INVALID FOR* Priority: D Colon cancer screening [Z12.11] INVALID FOR* Chest pain [R07.9] INVALID FOR* Priority: B More... Second degree heart block [I44.1] INVALID FOR* Priority: A More... Atherosclerosis of coronary artery bypass graft*INVALID FOR* Priority: A More... More... More... More... Hypoxia [R09.02] INVALID FOR* Chronic bilateral low back pain with left-sided*INVALID FOR* Priority: M Bilateral hip pain [M25.551, M25.552] INVALID FOR* Priority: M Paroxysmal atrial fibrillation (HCC) [I48.0] INVALID FOR* Priority: A More... 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 Right carpal tunnel syndrome [G56.01] INVALID FOR* Priority: M More... Presence of cardiac pacemaker [Z95.0] INVALID FOR* Priority: B Esophagitis [K20.9] INVALID FOR* Albuminuria [R80.9] INVALID FOR* Priority: A Carpal tunnel syndrome, bilateral [G56.03] INVALID FOR* Priority: M More... Ulnar nerve compression, right [G56.21] INVALID FOR* Priority: M More... Current use of proton pump inhibitor [Z79.899] INVALID FOR* Encounter Status:Closed by RUDDY CHAVEZ MD on 12/30/17 HOSP Observed: 12/30/2017 Status: COMPLETED Source: [place] 12:00 AM [facility] REPOSITORY Patient:Mayco Kendrick MRN: <[id number]> Height:6' 0(1.829 m) Weight:333 lb 3.2 oz (151.139 kg) Outpatient Medications as of 01/14/18: ammonium lactate (LAC-HYDRIN) 12 % cream rivaroxaban (XARELTO) 20 mg tablet sucralfate (CARAFATE) [address] (PROTONIX) 40 mg tablet furosemide (LASIX) 80 mg tablet furosemide (LASIX) 40 mg tablet oxybutynin (DITROPAN) 5 mg tablet glimepiride (AMARYL) 1 mg tablet metoprolol tartrate, short acting, (LOPRESSOR) 25 mg tablet ketoconazole (NIZORAL) 2 % shampoo atorvastatin (LIPITOR) 80 mg tablet tamsulosin ER (FLOMAX) 0.4 mg cp24 metFORMIN (GLUCOPHAGE) 500 mg tablet nitroglycerin sublingual (NITROSTAT) 0.4 mg SL tablet Ranitidine HCl 300 mg tablet magnesium oxide (MAG-OX) 400 mg tablet COMPOUNDED PRESCRIPTION bisacodyl (DULCOLAX) 10 mg supp polyethylene glycol 3350 (MIRALAX, GLYCOLAX) 17 gram/dose powder aspirin, enteric coated (ADULT LOW DOSE ASPIRIN) 81 mg EC tablet COMPOUNDED PRESCRIPTION COMPOUNDED PRESCRIPTION Lancets (ACCU-CHEK FASTCLIX) lancets blood sugar diagnostic test strip Blood-Glucose Meter, Drum-type (ACCU-CHEK COMPACT PLUS CARE) kit Blood-Glucose Meter (WriteOn ULTRA 2) monitoring kit Blood Glucose Control, Normal (OT ULTRA/FASTTRACK CONTROL) soln COMPOUNDED PRESCRIPTION Admission/Clinic Administered Medications as of 01/14/18: lactated ringers infusion ceFAZolin 3 g in D5W 100 mL (ANCEF) Problem List: Mild intermittent asthma without complication [J45.20] MALIGN NEOPL PROSTATE [C61] Allergic rhinitis, cause unspecified [J30.9] Personal history of colonic polyps [Z86.010] Lumbago [M54.5] Bilateral leg edema [R60.0] Carpal tunnel syndrome [G56.00] Essential hypertension, benign [I10] Insomnia, unspecified [G47.00] Benign neoplasm of rectum and anal canal [D12.8, D12.9] Diverticulosis of colon (without mention of hemorrhage) [K57.30] Hypertrophy of nasal turbinates [J34.3] History of prostatitis [Z87.438] Heart block AV complete [I44.2] Frequency of urination [R35.0] Urgency of urination [R39.15] Acute on chronic diastolic CHF (congestive heart failure), NYHA class 4 (HCC) [I50.33] EDMOND (obstructive sleep apnea) [G47.33] Mobitz (type) I (Wenckebach's) atrioventricular block [I44.1] Mixed hyperlipidemia [E78.2] Bradycardia [R00.1] Venous stasis dermatitis of both lower extremities [I87.2] Hypomagnesemia [E83.42] Diabetic eye exam (HCC) [Z01.00, E11.9] Dry mouth [R68.2] Noncompliance [Z91.19] Gastroesophageal reflux disease without esophagitis [K21.9] Coronary atherosclerosis due to lipid rich plaque [I25.10, I25.83] Morbid obesity due to excess calories (HCC) [E66.01] Essential tremor [G25.0] Chronic cough [R05] Controlled type 2 diabetes mellitus with diabetic nephropathy, without long-term current use of insulin (HCC) [E11.21] Depression [F32.9] Multiple open wounds of lower leg [S81.809A] Colon cancer screening [Z12.11] Chest pain [R07.9] Second degree heart block [I44.1] 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) [I25.700] Hypoxia [R09.02] Chronic bilateral low back pain with left-sided sciatica [M54.42, G89.29] Bilateral hip pain [M25.551, M25.552] Paroxysmal atrial fibrillation (HCC) [I48.0] 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] Right carpal tunnel syndrome [G56.01] Presence of cardiac pacemaker [Z95.0] Esophagitis [K20.9] Albuminuria [R80.9] Carpal tunnel syndrome, bilateral [G56.03] Ulnar nerve compression, right [G56.21] Current use of proton pump inhibitor [Z79.899] Left carpal tunnel syndrome [G56.02] Ulnar neuropathy at elbow of left upper extremity [G56.22] Allergies: Lisinopril Sertraline Date Verified: 01/14/18 Lab Values Lab Value Units Date High Low POTA* 3.9 mmol/L 01/07/2018 5.1 3.7 GABRIEL* 44.5 % 12/30/2017 51.0 39.0 Progress Notes ([facility]): MELLY MCCLOUD PA-C 12/31/2017 7:37 AM Signed Normal cbc. LORI Wilson Ma 12/31/2017 10:11 AM Signed Patient notified. Siomara Bo Ma Progress Notes ([facility]): Michaela Mor Pichardo 12/30/2017 10:49 AM Signed Please schedule patient for left ulnar nerve decompression with possible transposition and left carpal tunnel release on 01/12/18. Patient depends on transportation and would like to know in advance time of surgery to arrange if possible. Julisa Motley [facility] 12/30/2017 4:09 PM Signed Surgical request completed, post ops made and mailed. Madeline Walker Ma 12/31/2017 10:20 AM Signed Patient requesting to r/s Wednesday01/14/18 if still available Michaela Mor Pichardo 01/05/2018 10:32 AM Signed Patient called and surgery was reschedule for Wednesday01/14/18. Case message sent. Julisa Motley [facility] 01/07/2018 10:38 AM Signed Noted in [place]. Beba Aragon Emma Ma 01/07/2018 11:19 AM Signed Patient has been rescheduled to 01/14/2018 per the request. INITAL EVALUATION (1) Observed: 12/16/2017 Status: F Source: [place] - PT 12:31 PM [facility] REPOSITORY [facility] [address] [place] [address] Fax REHABILITATION SERVICES INITIAL EVALUATION MR#: [id number] Acct: [id number] Name: MAYCO KENDRICK Rep #: [id number] : 1940 77 From: Lily Murray PT, Cert. MDT Referring DrCorey: Status: REG RCR Insurance: ANTH MEDICARE [facility] [employer] Patient's Visit Information MAYCO KENDRICK is a 77 year old M referred to Physical Therapy by JOAN NOE with a diagnosis of SCIATICA NERVE PAIN LEFT. Date of Evaluation: 12/16/17 Physical Therapist: Lily Murray - Visit Plan Frequency: 2-3x /Week Duration: 4-6 Weeks Plan: AQUATIC THERAPY FOR PAIN RELIEF, GAIT TRAINING, POSTURE CORRECTION/STRENGTHENING, INSTRUCTION IN APPROPRIATE BODY MECHANICS AND ACTIVITY MODIFICATIONS. DLS STARTING WITH A NEUTRAL SPINE PROGRESSING ROM TOLERATED. JALEEL LE ROM, STRETCHING AND STRENGTHENING. HEP INSTRUCTION. - Subjective Subjective: Diagnosis: SCIATICA NERVE PAIN LEFT. Work/Leisure: RETIRED. Disability: NO. Present symptoms: LEFT BUTTOCK, LEFT HIP, AND LEFT THIGH PAIN. LEFT LOW BACK PAIN A FEW MONTHS AGO. PATIENT DENIES NUMBNESS OR TINGLING IN LE'S CURRENTLY. Present since: APR 2017. Pain Scale: WORST 4/10, LEAST 1/10. Currently: 09/01. Commenced as a result of: NO APPARENT REASON. Symptoms at onset: LEFT HIP. Worse: WALKING, STANDING, BENDING, LIFTING, AND PROLONGED SITTING. Better: LYING DOWN. Disturbed sleep: NO. Previous history/Previous treatment: LEFT THR 2000, RIGHT THR 1998. NO BACK SURGERY. LUMBAR PROCEEDURE TO RE-ROUTE NERVES IN PAIN MGMT 2003. H/O SANDY'S TOO. MOST RECENT INJECTION WAS LAST YEAR. PT FOR HIPS BUT NOT SPECIFICALLY FOR LOW BACK. H/O CHIROPRACTOR REGULARLY FOR OVER A YEAR. NO CHIRO RECENTLY. Coughing/sneezing/straining: NEGATIVE. Gait: WALKING WITH CANE FOR ABOUT 17 OR MORE YEARS AGO SINCE HAD HIP DONE. Difficulty initiating urinatin: NO. Accidents: NO. Unexplained weight loss: NO. Imaging: RECENT HIP AND LUMBAR X-RAYS AND MRI AT [facility] - PATIENT REPORTS THEY FOUND ARTHRITIS IN HIS LOW BACK. LEFT HIP X-RAY LOOKED NORMAL. OTHER: RIGHT CTR AND N. SURGERY LAST MONTH AND LEFT PENDING NEXT MONTH. PACEMAKER - Objective Sitting Posture: POOR. Standing Posture: POOR. Lordosis: REDUCED. Lateral shift: NO. Relevant shift: N/A. Active Correction of posture: NE. Other Observations: INDEP GAIT INTO PT WITH A STRAIGHT CANE, SHUFFLE TYPE GAIT PATTERN AND MILD LIMP ON THE LLE. PATIENT IS UNABLE TO TRANSFER INDEP'LY FROM SIT TO STAND WITHOUT UE ASSIST. Motor deficit: JALEEL LE STRENGTH IS 5/5 WITH MMT'ING EXCEPT JALEEL HIPS GRADED 4/5. PATIENT IS UNABLE TO SLS ON EITHER LEG > 2-3 SEC'S WITHOUT UE ASSIST. Sensory deficit: NO. PATIENT IS WEARING COMPRESSION STOCKINGS. FEET NT. ROM deficit: TIGHT JALEEL HIP FLEXORS, HS'S AND GASTROC SOLEUS COMPLEX'S. Dural Signs: NEGATIVE JALEEL LE DURAL SIGNS. Lumbar mvmt loss: flex - MOD. ext - RICKEY. R SG - RICKEY. L SG - RICKEY. Core strength: POOR. Palpation: NO ACUTE LUMBOSACRAL TENDERNESS BUT PATIENT DOES HAVE LEFT LATERAL HIP AND THIGH TENDERNESS. - Goals Goal 1:: DECREASE C/O LLE SX'S Goal Time Frame: 4-6 Weeks Goal 2:: IMPROVE STANDING, WALKING, BENDING, LIFTING, SITTING, AND ADL FUNCTION Goal Time Frame: 4-6 Weeks Goal 3:: INSTRUCT IN PROPHYLAXIS Goal Time Frame: 4-6 Weeks - Rehabilitation Potential Rehabilitation Potential: Fair - Anticipated Interventions Patient/Client Instruction: Educate patient on: Condition, Plan of Care, Risk Factors, Benefits of Fitness Program For the Purpose of:: To improve self management Therapeutic Exercise to Include: Strength training, Body mechanics, Postural training, Gait and locomotor training, In an aquatic setting, Active ROM, Dynamic Lumbar Stabilization For the Purpose of:: To decrease pain, To increase ROM, To improve muscle performance and motor function, To improve ability of physical actions for home/community/work/leisure, To improve gait and locomotor functions Thank you for the opportunity to evaluate your patient. For Medicare and Medicare HMO plans, please review the plan of care and approve it. It will need to be FAXED BACK to us at [phone] for Medicare purposes. Please let me know if there are questions or concerns regarding this plan of care. Physician Signature: Date: <Electronically signed by Lily Murray PT, Cert. MDT> 12/16/17 1231 CC: Bertrand Leon MD; OUT OF TOWN DOCTOR [place]ST[place] Signed For Medicare only, by signing this I certify the plan of care. Physicians Signature Date CNPN Observed: 12/03/2017 Status: COMPLETED Source: [place] 12:00 AM [facility] REPOSITORY Telephone (FAMPWS) MAYCO KENDRICK ([id number]) 1940 M NFR Date Time Provider Department 12/03/17 BERTRAND LEON During your visit today, we recorded the following information about you: Ese Zapien RADIATION ONCOLOGY THERAPIST 12/03/2017 2:55 PM Signed Patient calling asking for order for be able to have 2 beers daily needs sent to [facility]. Patient also asking for rx to be sent to pharmacy for Mylanta for prn use. Please advise Bertrand Leon MD 12/03/2017 3:20 PM Signed Let patient know I'm not okaying him to drink two beers a day and suspect Dr. Roblero will refuse as well. In regards to the Mylanta it's OTC so can go to pharmacy of have a family member supply. Rashida Davila 12/06/2017 3:[address] [facility] nurse requesting Mylanta script so they can administer. Rashida Leon MD 12/06/2017 3:09 PM Signed Please advise [facility] that Mr. Wright sees Sohail Griffith for his GERD issue and she has been managing these meds. I do not want to give the ok ok taking the Mylanta without her approval. I will forward this onto Sohail so she can advise [facility] in regards to if she is ok with him taking it, how much and how often in relation to the other meds he is currently on for GERD. Rashida Davila 12/06/2017 3:48 PM Signed Spoke with nurse (Bee) at [facility], advised Mr. Kendrick should see Sohail Griffith about taking mylanta for his GERD and that his message has been forwarded to her so she will be aware of his request. Nurse verbalized understanding. Rashida Leon MD 12/06/2017 9:23 PM Signed Let [facility] know Mr. Kendrick's gastro physician has no problems with him taking Mylanta. [facility] for Mylanta extra strength at a dose of 20 ml every 6 hrs as needed for upset stomach. Patient needs to be advised if takes to often he will get diarrhea. The following approved medication requests have been transmitted electronically. Signed Prescriptions Disp Refills aluminum ANDamp; magnesium hydroxide-simethicone (MAALOX PLUS EXTRA STRENGTH) 400-400-40 mg/5 mL suspension 500 mL 3 Sig: Take 20 mL by mouth every 6 hours as needed (upset stomach). Authorizing Provider: BERTRAND LEON MD Jeffrey Burkey, MD 12/06/2017 9:23 PM Signed Addended by: BERTRAND LEON on: 12/06/2017 09:23 PM Modules accepted: Orders Anotnia Hernandez Ma 12/07/2017 8:43 AM Signed Patient notified of results, verbalizes understanding of instructions. Antonia Hernandez Ma Allergies As of Date: 12/03/2017 Noted Allergy Reaction LISINOPRIL 05/31/2014 14 - Other: See Comments Comments: Metallic taste in mouth. SERTRALINE 05/02/2013 8 - GI Upset Date Reviewed: 12/01/2017 Reviewed by: Elena (Rn) TALA Hagen - Fully Assessed Reason for Visit: asking for order and otc rx [Other] Order(s):aluminum AND magnesium hydroxide-simethicone (MAALOX PLUS EXTRA STRENGTH) 400-400-40 mg/5 mL suspensionTake 20 mL by mouth every 6 hours as needed (upset stomach).Disp: 500 mLRfl: 3 Prescriptions as of 12/03/2017 Sig: ALUMINUM-MAG HYDROXIDE-SIMETH* Take 20 mL by mouth every 6 h* HYDROCODONE 5 MG-ACETAMINOPHE* Take 1 tablet by mouth every * RIVAROXABAN 20 MG TABLET Take 1 tablet by mouth daily * SUCRALFATE 1 GRAM TABLET Take 1 tablet by mouth three * PANTOPRAZOLE 40 MG TABLET,DEL* Take 1 tablet by mouth daily * FUROSEMIDE 80 MG TABLET One PO daily in AM FUROSEMIDE 40 MG TABLET One PO daily at dinner OXYBUTYNIN CHLORIDE 5 MG TABL* Take 1 tablet by mouth three * GLIMEPIRIDE 1 MG TABLET Take 1 tablet by mouth daily * METOPROLOL TARTRATE 25 MG TAB* Take 1 tablet by mouth every * KETOCONAZOLE 2 % SHAMPOO Use as a body wash, most spec* TRIAMCINOLONE ACETONIDE 0.1 %* Apply to itching rash on ches* ATORVASTATIN 80 MG TABLET Take 1 tablet by mouth once d* TAMSULOSIN 0.4 MG CAPSULE Take 1 capsule by mouth every* METFORMIN 500 MG TABLET Take 1 tablet by mouth three * NITROGLYCERIN 0.4 MG SUBLINGU* Take 1 tablet by mouth as nee* TRAZODONE 50 MG TABLET Take 1 tablet by mouth at bed* RANITIDINE 300 MG TABLET Take with evening meal. MAGNESIUM OXIDE 400 MG TABLET Take 1 tablet by mouth once d* DOCUSATE SODIUM 100 MG CAPSULE Take 1 capsule by mouth once * COMPOUNDED PRESCRIPTION Please eval and fix any issue* BISACODYL 10 MG RECTAL SUPPOS* 1 Suppository by RECTAL route* POLYETHYLENE GLYCOL 3350 17 G* 17 g up to twice daily as nee* ASPIRIN 81 MG TABLET,DELAYED * Take 1 tablet by mouth once d* COMPOUNDED PRESCRIPTION Glucometer high/low test solu* COMPOUNDED PRESCRIPTION Please perform a nocturnal ox* LANCETS Test glucose twice weekly. Dx* BLOOD SUGAR DIAGNOSTIC STRIPS testing twice weekly dx 250* BLOOD-GLUCOSE METER, DRUM-TYP* Test fasting blood sugar 1-2 * BLOOD-GLUCOSE METER KIT 1 Each as needed. One Touch M* BLOOD GLUCOSE CONTROL, NORMAL* Test controls as needed. * COMPOUNDED PRESCRIPTION BIPAP setting: IPAP 22cm wate* Problem List As Of Date 12/03/2017 Noted Resolved Mild intermittent asthma without complication [* Priority: A MALIGN NEOPL PROSTATE [C61] Priority: B More... Type II or unspecified type diabetes mellitus w* 01/18/2014 Allergic rhinitis, cause unspecified [J30.9] INVALID FOR* Priority: B More... Personal history of colonic polyps [Z86.010] Priority: C More... Lumbago [M54.5] INVALID FOR* Priority: M Bilateral leg edema [R60.0] INVALID FOR* Priority: A Carpal tunnel syndrome [G56.00] INVALID FOR* Priority: M Essential hypertension, benign [I10] INVALID FOR* Priority: A More... Insomnia, unspecified [G47.00] INVALID FOR* Priority: B More... Benign neoplasm of rectum and anal canal [D12.8*INVALID FOR* Priority: C Diverticulosis of colon (without mention of hem*INVALID FOR* Priority: C Hypertrophy of nasal turbinates [J34.3] INVALID FOR* Priority: C More... 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 More... More... EDMOND (obstructive sleep apnea) [G47.33] INVALID FOR* Priority: B More... Mobitz (type) I (Wenckebach's) atrioventricular*INVALID FOR* Priority: A More... More... Mixed hyperlipidemia [E78.2] INVALID FOR* Priority: A More... DVT prophylaxis [XSL4397] INVALID FOR*07/26/2014 More... More... More... More... More... More... Bradycardia [R00.1] INVALID FOR* Priority: A More... Venous stasis dermatitis of both lower extremit*INVALID FOR* Priority: B Counseling and coordination of care [Z71.89] INVALID FOR*04/12/2015 More... Hypomagnesemia [E83.42] INVALID FOR* Priority: B Diabetic eye exam (HCC) [Z01.00, E11.9] INVALID FOR* Priority: A More... Dry mouth [R68.2] INVALID FOR* Priority: B Noncompliance [Z91.19] INVALID FOR* Gastroesophageal reflux disease without esophag*INVALID FOR* Priority: A Coronary atherosclerosis due to lipid rich plaq*INVALID FOR* Priority: A Morbid obesity due to excess calories (HCC) [E6*INVALID FOR* Priority: B More... Essential tremor [G25.0] INVALID FOR* Priority: B Chronic cough [R05] INVALID FOR* Priority: B Well adult exam [Z00.00] INVALID FOR* Priority: E More... Controlled type 2 diabetes mellitus with diabet*INVALID FOR* Priority: A Depression [F32.9] INVALID FOR* Priority: A Multiple open wounds of lower leg [S81.809A] INVALID FOR* Priority: D Colon cancer screening [Z12.11] INVALID FOR* Chest pain [R07.9] INVALID FOR* Priority: B More... Second degree heart block [I44.1] INVALID FOR* Priority: A More... Atherosclerosis of coronary artery bypass graft*INVALID FOR* Priority: A More... More... More... More... Hypoxia [R09.02] INVALID FOR* Chronic bilateral low back pain with left-sided*INVALID FOR* Priority: M Bilateral hip pain [M25.551, M25.552] INVALID FOR* Priority: M Paroxysmal atrial fibrillation (HCC) [I48.0] INVALID FOR* Priority: A More... 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 Right carpal tunnel syndrome [G56.01] INVALID FOR* Priority: M More... Presence of cardiac pacemaker [Z95.0] INVALID FOR* Priority: B Esophagitis [K20.9] INVALID FOR* Albuminuria [R80.9] INVALID FOR* Priority: A Carpal tunnel syndrome, bilateral [G56.03] INVALID FOR* Priority: M More... Ulnar nerve compression, right [G56.21] INVALID FOR* Priority: M More... Current use of proton pump inhibitor [Z79.899] INVALID FOR* Prescriptions ordered this encounter Disp Refills Start End ALUMINUM-MAG HYDROXIDE-SIMETHICONE 4* 500 * 3 12/06/2017 Route: ORAL Sig: Take 20 mL by mouth every 6 hours as needed (upset stomach). Encounter Status:Closed by RASHIDA DAVILA on 12/06/17 PROGRESS Observed: 12/01/2017 Status: COMPLETED Source: [place] 1:57 PM [facility] OTHER [facility] REPOSITORY HNO ID: [id number] Author: Braulio Roblero Service: (none) Author Type: Physician Type: Progress Notes Filed: 12/01/2017 5:36 PM Note Text: PERTINENT CARDIAC HISTORY ASHD - CABGx4 1998, PCI LAD 1999 AV block - PPM 2015 EDMOND - Bipap HTN DM HL CHF - diastolic PAF - on Xarelto ADHERENCE TO GUIDELINES CIELO-I or ARB for HF with prior LVEF<40 (NQF 0081) - intolerant ASA or Plavix for ASHD (NQF 0067) - met Beta emily for ASHD with prior MT or prior LVEF<40 (NQF 0070) - N/A Beta emily for HF with prior LVEF<40 (NQF 0083) - N/A CIELO-I or ARB for ASHD with DM or prior LVEF<40 (NQF 0066) - intolerant Statin therapy for ASHD or FHL or DM - met BMI documented and plan if >25 (NQ 0421) - lifestyle recommendation form Tobacco use screening and referral (NQ 0028) - lifestyle recommendation form Recommendation for whole food, plant based diet - lifestyle recommendation form CLINICAL IMPRESSION/PLAN: Mayco Kendrick is doing reasonably well. His coronary disease appears stable. He will continue his current pacemaker check schedule. If his hemoptysis worsens, we will likely need to interrupt his Xarelto. He voices understanding of the benefit, as regards decreased stroke risk. I will see him in 6 months or as needed. Written and verbal health teaching given to patient, patient verbalizes understanding and agrees with treatment plan. DIAGNOSIS FOR VISIT: Chest pain HISTORY OF PRESENT ILLNESS Mayco Kendrick returns for problem follow-up visit. He was recently hospitalized for atypical right arm and neck pain. He underwent evaluation including stress testing, which showed no evidence of ischemia. These symptoms have resolved. He's had intermittent hemoptysis in the morning. His Xarelto has been continued. His hemoptysis has resolved over the last several days. This has been evaluated in pulmonology. He's had no exertional chest tightness. His edema is stable. He's had no syncope, palpitations, TIAs, amaurosis and claudication. He has undergone orthopedic surgery without complication. ALLERGIES: ALLERGIES Allergen Reactions - Lisinopril Other: See Comments Metallic taste in mouth. - Sertraline GI Upset CURRENT OUTPATIENT MEDICATIONS: HYDROcodone-acetaminophen (NORCO) 5-325 mg per tablet Take 1 tablet by mouth every 6 hours as needed. rivaroxaban (XARELTO) 20 mg tablet Take 1 tablet by mouth daily with dinner. sucralfate (CARAFATE) 1 gram tablet Take 1 tablet by mouth three times daily before meals. 30 minutes before meals. pantoprazole DR (PROTONIX) 40 mg tablet Take 1 tablet by mouth daily before breakfast. Take on empty stomach, 1/2 hr before meal. Per Gastroenterology furosemide (LASIX) 80 mg tablet One PO daily in AM furosemide (LASIX) 40 mg tablet One PO daily at dinner oxybutynin (DITROPAN) 5 mg tablet Take 1 tablet by mouth three times daily. glimepiride (AMARYL) 1 mg tablet Take 1 tablet by mouth daily with breakfast. metoprolol tartrate, short acting, (LOPRESSOR) 25 mg tablet Take 1 tablet by mouth every 12 hours. ketoconazole (NIZORAL) 2 % shampoo Use as a body wash, most specifically the chest, daily for itching and flaking; may keep in own shower atorvastatin (LIPITOR) 80 mg tablet Take 1 tablet by mouth once daily. tamsulosin ER (FLOMAX) 0.4 mg cp24 Take 1 capsule by mouth every evening. for prostate metFORMIN (GLUCOPHAGE) 500 mg tablet Take 1 tablet by mouth three times daily with meals. nitroglycerin sublingual (NITROSTAT) 0.4 mg SL tablet Take 1 tablet by mouth as needed. for chest pain; dissolve on tongue. If no pain relief call 911. traZODone (DESYREL) 50 mg tablet Take 1 tablet by mouth at bedtime as needed (sedation). Ranitidine HCl 300 mg tablet Take with evening meal. magnesium oxide (MAG-OX) 400 mg tablet Take 1 tablet by mouth once daily. docusate sodium (DOC-Q-LACE) 100 mg capsule Take 1 capsule by mouth once daily. polyethylene glycol 3350 (MIRALAX, GLYCOLAX) 17 gram/dose powder 17 g up to twice daily as needed prn constipation aspirin, enteric coated (ADULT LOW DOSE ASPIRIN) 81 mg EC tablet Take 1 tablet by mouth once daily. Lancets (ACCU-CHEK FASTCLIX) lancets Test glucose twice weekly. Dx: 250.00. Insulin Use: no triamcinolone acetonide (KENALOG) 0.1 % cream Apply to itching rash on chest twice daily ONLY when needed; may keep in room COMPOUNDED PRESCRIPTION Please eval and fix any issues with walker.Dx: I50.33, I25.10, E66.01, M54.42, M25.551 bisacodyl (DULCOLAX) 10 mg supp 1 Suppository by RECTAL route once daily as needed (for constipation). COMPOUNDED PRESCRIPTION Glucometer high/low test solution for accucheck. DX: DM COMPOUNDED PRESCRIPTION Please perform a nocturnal oximetry on room air on BiPAP. Diagnosis: HypoxiaPlease fax results to [phone] Attn: Glendy blood sugar diagnostic test strip testing twice weekly dx 250.00 insulin no Blood-Glucose Meter, Drum-type (ACCU-CHEK COMPACT PLUS CARE) kit Test fasting blood sugar 1-2 times a week and 2 hrs post meal 1- 2 times a week. Blood-Glucose Meter (ONETOUCH ULTRA 2) monitoring kit 1 Each as needed. One Touch Meter Kit Diagnosis: Diabetes Mellitus Blood Glucose Control, Normal (OT ULTRA/FASTTRACK CONTROL) soln Test controls as needed. COMPOUNDED PRESCRIPTION BIPAP setting: IPAP 22cm water with heated humidification EPAP setting of 16cm with supplemental oxygen bleed in at 2lt per minute. Mask (per patient preference) and supplies for lifetime. Please add chin strap DX EDMOND 327.23 PHYSICAL EXAMINATION: VITAL SIGNS: BP 128/72 Pulse 71 Ht 6' 0 (1.83m) Wt 333 lb 4.8 oz (151.2kg) BMI 45.19 kg/(m2). Chest: Clear to percussion and auscultation. Trachea is midline. Air entry is equal. Cardiac: Regular rhythm. S1 and S2 are normal. PMI is nondisplaced. There is a soft systolic ejection murmur. Carotids are brisk without bruits. JVP is less than 10 cm. Abdomen: Soft and nontender. There is morbid obesity. There are no pulsatile masses or bruits. No liver enlargement. Bowel sounds are active. Extremities: 1 plus chronic edema with chronic stasis changes. Pulses are diminished but symmetrical. He reports that his pacemaker has been checked at [facility]. Records from recent admission were reviewed. Stress test showed no evidence of ischemia. Troponin was undetectable Electronically Signed: Braulio Roblero MD December 01, 2017 1:57 PM CC: Bertrand Leon MD CNOV Observed: 12/01/2017 Status: COMPLETED Source: [place] 1:00 PM [facility] OTHER [facility] REPOSITORY Office Visit (AGCARDWST) MAYCO KENDRICK ([id number]) 1940 M NFR Date Time Provider Department 12/01/17 1:00 PM [place] During your visit today, we recorded the following information about you: Pulse Blood pressure Weight Height 71/minute 128/72 151.2 kg 1.829 m Braulio Roblero MD 12/01/2017 5:36 PM Signed PERTINENT CARDIAC HISTORY ASHD - CABGx4 1998, PCI LAD 1999 AV block - PPM 2015 EDMOND - Bipap HTN DM HL CHF - diastolic PAF - on Xarelto ADHERENCE TO GUIDELINES CIELO-I or ARB for HF with prior LVEFANDlt;40 (NQF 0081) - intolerant ASA or Plavix for ASHD (NQF 0067) - met Beta emily for ASHD with prior MT or prior LVEFANDlt;40 (NQF 0070) - N/A Beta emily for HF with prior LVEFANDlt;40 (NQF 0083) - N/A CIELO-I or ARB for ASHD with DM or prior LVEFANDlt;40 (NQF 0066) - intolerant Statin therapy for ASHD or FHL or DM - met BMI documented and plan if ANDgt;25 (NQF 0421) - lifestyle recommendation form Tobacco use screening and referral (NQF 0028) - lifestyle recommendation form Recommendation for whole food, plant based diet - lifestyle recommendation form CLINICAL IMPRESSION/PLAN: Mayco Kendrick is doing reasonably well. His coronary disease appears stable. He will continue his current pacemaker check schedule. If his hemoptysis worsens, we will likely need to interrupt his Xarelto. He voices understanding of the benefit, as regards decreased stroke risk. I will see him in 6 months or as needed. Written and verbal health teaching given to patient, patient verbalizes understanding and agrees with treatment plan. DIAGNOSIS FOR VISIT: Chest pain HISTORY OF PRESENT ILLNESS Mayco Kendrick returns for problem follow-up visit. He was recently hospitalized for atypical right arm and neck pain. He underwent evaluation including stress testing, which showed no evidence of ischemia. These symptoms have resolved. He's had intermittent hemoptysis in the morning. His Xarelto has been continued. His hemoptysis has resolved over the last several days. This has been evaluated in pulmonology. He's had no exertional chest tightness. His edema is stable. He's had no syncope, palpitations, TIAs, amaurosis and claudication. He has undergone orthopedic surgery without complication. ALLERGIES: ALLERGIES Allergen Reactions - Lisinopril Other: See Comments Metallic taste in mouth. - Sertraline GI Upset CURRENT OUTPATIENT MEDICATIONS: HYDROcodone-acetaminophen (NORCO) 5-325 mg per tablet Take 1 tablet by mouth every 6 hours as needed. rivaroxaban (XARELTO) 20 mg tablet Take 1 tablet by mouth daily with dinner. sucralfate (CARAFATE) 1 gram tablet Take 1 tablet by mouth three times daily before meals. 30 minutes before meals. pantoprazole DR (PROTONIX) 40 mg tablet Take 1 tablet by mouth daily before breakfast. Take on empty stomach, 1/2 hr before meal. Per Gastroenterology furosemide (LASIX) 80 mg tablet One PO daily in AM furosemide (LASIX) 40 mg tablet One PO daily at dinner oxybutynin (DITROPAN) 5 mg tablet Take 1 tablet by mouth three times daily. glimepiride (AMARYL) 1 mg tablet Take 1 tablet by mouth daily with breakfast. metoprolol tartrate, short acting, (LOPRESSOR) 25 mg tablet Take 1 tablet by mouth every 12 hours. ketoconazole (NIZORAL) 2 % shampoo Use as a body wash, most specifically the chest, daily for itching and flaking; may keep in own shower atorvastatin (LIPITOR) 80 mg tablet Take 1 tablet by mouth once daily. tamsulosin ER (FLOMAX) 0.4 mg cp24 Take 1 capsule by mouth every evening. for prostate metFORMIN (GLUCOPHAGE) 500 mg tablet Take 1 tablet by mouth three times daily with meals. nitroglycerin sublingual (NITROSTAT) 0.4 mg SL tablet Take 1 tablet by mouth as needed. for chest pain; dissolve on tongue. If no pain relief call 911. traZODone (DESYREL) 50 mg tablet Take 1 tablet by mouth at bedtime as needed (sedation). Ranitidine HCl 300 mg tablet Take with evening meal. magnesium oxide (MAG-OX) 400 mg tablet Take 1 tablet by mouth once daily. docusate sodium (DOC-Q-LACE) 100 mg capsule Take 1 capsule by mouth once daily. polyethylene glycol 3350 (MIRALAX, GLYCOLAX) 17 gram/dose powder 17 g up to twice daily as needed prn constipation aspirin, enteric coated (ADULT LOW DOSE ASPIRIN) 81 mg EC tablet Take 1 tablet by mouth once daily. Lancets (ACCU-CHEK FASTCLIX) lancets Test glucose twice weekly. Dx: 250.00. Insulin Use: no triamcinolone acetonide (KENALOG) 0.1 % cream Apply to itching rash on chest twice daily ONLY when needed; may keep in room COMPOUNDED PRESCRIPTION Please eval and fix any issues with walker.Dx: I50.33, I25.10, E66.01, M54.42, M25.551 bisacodyl (DULCOLAX) 10 mg supp 1 Suppository by RECTAL route once daily as needed (for constipation). COMPOUNDED PRESCRIPTION Glucometer high/low test solution for accucheck. DX: DM COMPOUNDED PRESCRIPTION Please perform a nocturnal oximetry on room air on BiPAP. Diagnosis: HypoxiaPlease fax results to [phone] Attn: Gl[facility]y blood sugar diagnostic test strip testing twice weekly dx 250.00 insulin no Blood-Glucose Meter, Drum-type (ACCU-CHEK COMPACT PLUS CARE) kit Test fasting blood sugar 1-2 times a week and 2 hrs post meal 1-2 times a week. Blood-Glucose Meter (ONETOUCH ULTRA 2) monitoring kit 1 Each as needed. One Touch Meter Kit Diagnosis: Diabetes Mellitus Blood Glucose Control, Normal (OT ULTRA/FASTTRACK CONTROL) soln Test controls as needed. COMPOUNDED PRESCRIPTION BIPAP setting: IPAP 22cm water with heated humidification EPAP setting of 16cm with supplemental oxygen bleed in at 2lt per minute. Mask (per patient preference) and supplies for lifetime. Please add chin strap DX EDMOND 327.23 PHYSICAL EXAMINATION: VITAL SIGNS: BP 128/72 Pulse 71 Ht 6' 0ANDquot; (1.83m) Wt 333 lb 4.8 oz (151.2kg) BMI 45.19 kg/(m2). Chest: Clear to percussion and auscultation. Trachea is midline. Air entry is equal. Cardiac: Regular rhythm. S1 and S2 are normal. PMI is nondisplaced. There is a soft systolic ejection murmur. Carotids are brisk without bruits. JVP is less than 10 cm. Abdomen: Soft and nontender. There is morbid obesity. There are no pulsatile masses or bruits. No liver enlargement. Bowel sounds are active. Extremities: 1 plus chronic edema with chronic stasis changes. Pulses are diminished but symmetrical. He reports that his pacemaker has been checked at [facility]. Records from recent admission were reviewed. Stress test showed no evidence of ischemia. Troponin was undetectable Electronically Signed: Braulio Roblero MD December 01, 2017 1:57 PM CC: Bertrand Leon MD Referring Provider: BRAULIO ROBLERO [[id number]] Allergies As of Date: 12/01/2017 Noted Allergy Reaction LISINOPRIL 05/31/2014 14 - Other: See Comments Comments: Metallic taste in mouth. SERTRALINE 05/02/2013 8 - GI Upset Date Reviewed: 12/01/2017 Reviewed by: Elena (Rn) TALA Hagen - Fully Assessed Reason for Visit: Established Patient [175] Cmt: [facility] 11/20/17 discharge Primary Visit Diagnosis:ASHD (arteriosclerotic heart disease) [I25.10] Prescriptions as of 12/01/2017 Sig: HYDROCODONE 5 MG-ACETAMINOPHE* Take 1 tablet by mouth every * RIVAROXABAN 20 MG TABLET Take 1 tablet by mouth daily * SUCRALFATE 1 GRAM TABLET Take 1 tablet by mouth three * PANTOPRAZOLE 40 MG TABLET,DEL* Take 1 tablet by mouth daily * FUROSEMIDE 80 MG TABLET One PO daily in AM FUROSEMIDE 40 MG TABLET One PO daily at dinner OXYBUTYNIN CHLORIDE 5 MG TABL* Take 1 tablet by mouth three * GLIMEPIRIDE 1 MG TABLET Take 1 tablet by mouth daily * METOPROLOL TARTRATE 25 MG TAB* Take 1 tablet by mouth every * KETOCONAZOLE 2 % SHAMPOO Use as a body wash, most spec* ATORVASTATIN 80 MG TABLET Take 1 tablet by mouth once d* TAMSULOSIN 0.4 MG CAPSULE Take 1 capsule by mouth every* METFORMIN 500 MG TABLET Take 1 tablet by mouth three * NITROGLYCERIN 0.4 MG SUBLINGU* Take 1 tablet by mouth as nee* TRAZODONE 50 MG TABLET Take 1 tablet by mouth at bed* RANITIDINE 300 MG TABLET Take with evening meal. MAGNESIUM OXIDE 400 MG TABLET Take 1 tablet by mouth once d* DOCUSATE SODIUM 100 MG CAPSULE Take 1 capsule by mouth once * POLYETHYLENE GLYCOL 3350 17 G* 17 g up to twice daily as nee* ASPIRIN 81 MG TABLET,DELAYED * Take 1 tablet by mouth once d* LANCETS Test glucose twice weekly. Dx* TRIAMCINOLONE ACETONIDE 0.1 %* Apply to itching rash on ches* COMPOUNDED PRESCRIPTION Please eval and fix any issue* BISACODYL 10 MG RECTAL SUPPOS* 1 Suppository by RECTAL route* COMPOUNDED PRESCRIPTION Glucometer high/low test solu* COMPOUNDED PRESCRIPTION Please perform a nocturnal ox* BLOOD SUGAR DIAGNOSTIC STRIPS testing twice weekly dx 250* BLOOD-GLUCOSE METER, DRUM-TYP* Test fasting blood sugar 1-2 * BLOOD-GLUCOSE METER KIT 1 Each as needed. One Touch M* BLOOD GLUCOSE CONTROL, NORMAL* Test controls as needed. * COMPOUNDED PRESCRIPTION BIPAP setting: IPAP 22cm wate* Problem List As Of Date 12/01/2017 Noted Resolved Mild intermittent asthma without complication [* Priority: A MALIGN NEOPL PROSTATE [C61] Priority: B More... Type II or unspecified type diabetes mellitus w* 01/18/2014 Allergic rhinitis, cause unspecified [J30.9] INVALID FOR* Priority: B More... Personal history of colonic polyps [Z86.010] Priority: C More... Lumbago [M54.5] INVALID FOR* Priority: M Bilateral leg edema [R60.0] INVALID FOR* Priority: A Carpal tunnel syndrome [G56.00] INVALID FOR* Priority: M Essential hypertension, benign [I10] INVALID FOR* Priority: A More... Insomnia, unspecified [G47.00] INVALID FOR* Priority: B More... Benign neoplasm of rectum and anal canal [D12.8*INVALID FOR* Priority: C Diverticulosis of colon (without mention of hem*INVALID FOR* Priority: C Hypertrophy of nasal turbinates [J34.3] INVALID FOR* Priority: C More... 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 More... More... EDMOND (obstructive sleep apnea) [G47.33] INVALID FOR* Priority: B More... Mobitz (type) I (Wenckebach's) atrioventricular*INVALID FOR* Priority: A More... More... Mixed hyperlipidemia [E78.2] INVALID FOR* Priority: A More... DVT prophylaxis [PLE8381] INVALID FOR*07/26/2014 More... More... More... More... More... More... Bradycardia [R00.1] INVALID FOR* Priority: A More... Venous stasis dermatitis of both lower extremit*INVALID FOR* Priority: B Counseling and coordination of care [Z71.89] INVALID FOR*04/12/2015 More... Hypomagnesemia [E83.42] INVALID FOR* Priority: B Diabetic eye exam (HCC) [Z01.00, E11.9] INVALID FOR* Priority: A More... Dry mouth [R68.2] INVALID FOR* Priority: B Noncompliance [Z91.19] INVALID FOR* Gastroesophageal reflux disease without esophag*INVALID FOR* Priority: A Coronary atherosclerosis due to lipid rich plaq*INVALID FOR* Priority: A Morbid obesity due to excess calories (HCC) [E6*INVALID FOR* Priority: B More... Essential tremor [G25.0] INVALID FOR* Priority: B Chronic cough [R05] INVALID FOR* Priority: B Well adult exam [Z00.00] INVALID FOR* Priority: E More... Controlled type 2 diabetes mellitus with diabet*INVALID FOR* Priority: A Depression [F32.9] INVALID FOR* Priority: A Multiple open wounds of lower leg [S81.809A] INVALID FOR* Priority: D Colon cancer screening [Z12.11] INVALID FOR* Chest pain [R07.9] INVALID FOR* Priority: B More... Second degree heart block [I44.1] INVALID FOR* Priority: A More... Atherosclerosis of coronary artery bypass graft*INVALID FOR* Priority: A More... More... More... More... Hypoxia [R09.02] INVALID FOR* Chronic bilateral low back pain with left-sided*INVALID FOR* Priority: M Bilateral hip pain [M25.551, M25.552] INVALID FOR* Priority: M Paroxysmal atrial fibrillation (HCC) [I48.0] INVALID FOR* Priority: A More... 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 Right carpal tunnel syndrome [G56.01] INVALID FOR* Priority: M More... Presence of cardiac pacemaker [Z95.0] INVALID FOR* Priority: B Esophagitis [K20.9] INVALID FOR* Albuminuria [R80.9] INVALID FOR* Priority: A Carpal tunnel syndrome, bilateral [G56.03] INVALID FOR* Priority: M More... Ulnar nerve compression, right [G56.21] INVALID FOR* Priority: M More... Current use of proton pump inhibitor [Z79.899] INVALID FOR* Encounter Status:Closed by BRAULIO ROBLERO MD on 12/01/17 PROGRESS Observed: 11/30/2017 Status: COMPLETED Source: [place] 8:23 AM [facility] HNO ID: [id number] Author: Melly Mccloud ([place]) Service: (none) Author Type: Physician Budget Officer Type: Progress Notes Filed: 11/30/2017 10:14 AM Note Text: Chief Complaint Patient presents with: Hospital F/U HPI Mayco Kendrick is a 77 year old male who presents here today for ER/Hospital follow up. Patient was Admitted into the hospital for chest pain on 11/19-11/20. Cardiac work up was wnl. Normal Stress test. patient does report hemoptysis- States this happens when he gets started on blood thinners. Reports that he notices the blood early am. When he was on coumadin he would have hemoptysis day and night. Past couple days he has not seen any blood. Patient still has cough that is productive with phlegm. No cough at night. Some shortness of breath at night not every night. No worsening swelling. Has seen pulmonology in past and wants to speak with cardio before going back to Pulm. Past medical history, appointments, medications, allergies reviewed. Previous Medical History PAST MEDICAL HISTORY Diagnosis Date - Abdominal pain 08/11/2014 w some distention. Appears chronic -abdominal ultrasound - ACUTE GASTRITIS W/O HEMORRHAGE 12/21/2006 - Acute on chronic diastolic CHF (congestive heart failure), NYHA class 4 (HCC) 03/08/2014 H/o HFpEF with diastolic dysfunction, ICM 55% EF Presents with CP and SOB Weight gain 30lbs in last 3 months Currently SOB and volume overload, in setting of unstable angina (killip 3) Plan Continue Diuresis As above for possible restrictive CM - ALLERGIC RHINITIS NOS 05/03/2006 - Asthma - ASTHMA UNSPECIFIED - Benign neoplasm of colon - Benign neoplasm of rectum and anal canal - Bilateral leg edema 11/05/2008 - Bradycardia 08/11/2014 Patient with sinus bradycardia with Type 1 Mobitz since 2011 however Pulse dropping to high 30s with dizziness Plan: Place on tele for monitoring EP evaluation for ? Pacemaker with new onset of symptoms 2/2 to relative hypotension vs bradycardia Daily EKGs to evaluate rhythm, still appears to be Mobitz type 1 Keep K and Mag above 4 and 2 respectively - Carpal tunnel syndrome 03/28/2010 - Chest pain 07/26/2014 73 year old male transferred from OSH for Unstable angina, chest pain on a Nitro and heparin Drip. First set of enzymes was negative. No ST-T wave chanes on EKG Mobitz type 1 AV block (chronic) ALVERTO score 5 With associated SOB and Pulmonary edema on CXR (Killip class 3) Found not to have acute plaque rupture ?Restrictive cardiomyopathy Will need LHC (LVEDP) and RHC tomorrow - per Dr. Pepe would like Dr. Randall PLAN NPO at midnight Call Cath Charge in AM to confirm schedule and attending Continue diuresis Additionally: - ASA - Stop plavix - reduce Atorvastatin to 20mg (home dose, last LDL ~55) - Losartan - Chest pain with painful respiration 08/11/2014 Chest heaviness. Unstable angina ? 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 Resume as the bp normalizes. - IV lasix 40 mg once for now -resume home dose of lasix AND torsemide PO in the morning - Frequency of urination 02/01/2014 - GERD (gastroesophageal reflux disease) 09/05/2014 - Hand fracture, left 10/13/2011 - Heart block AV complete 05/11/2013 - Hip fracture, right (HCC) 09/22/2012 Treated medically - History of prostatitis 04/11/2013 - Hyperlipidemia - Hypertension - Hypertrophy of nasal turbinates 07/06/2012 consult with [facility] 06/29/2012 Plan to schedule ablation of inferior turbinates @ [facility]. - Insomnia, unspecified 06/17/2011 O[facility] report reviewed October 22, 2011 Matt Taylor MD - Leg swelling - Lumbago 05/11/2007 - MALIGN NEOPL PROSTATE - Mobitz (type) I (Wenckebach's) atrioventricular block 07/26/[address] Eric Go in 2012. Chronic conduction abnormality. does not need a pacemaker. Here with concern for ACS EKG: mobitz type 1, unchanged from prior, no ST-T wave changes BP stable Plan: Monitor Avoiding BB - Morbid obesity 06/02/2011 07/08/2017: H: 72 in, W: 358 lb, BMI 48.54. 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 01/18/2014 - Type II or unspecified type diabetes mellitus without mention of complication, not stated as uncontrolled - Unspecified sleep apnea CPAP 18 with 1L - Urgency of urination 02/01/2014 Previous Surgical History PAST SURGICAL HISTORY Procedure Laterality Date - CABG, ARTERY-VEIN, TWO 1998 CABG, two grafts - CHOLECYSTECTOMY HX 10/14/2015 gangrenous gallbladder - COLONOSCOP W/ OR W/O [facility] SPEC 01/27/2005 Colonoscopy - COLONOSCOP W/ OR W/O [facility] SPEC 12/21/2006` repeat in 5-2011 - COLONOSCOP W/ OR W/O [facility] SPEC 05/18/2012 Colonoscopy repeat 5 years - COLONOSCOPY 12/29/2016 repeat 10 yrs - EGD 12/29/2016 - EGD W/O [facility] SPECIMEN W/BX 12/21/06 - EGD W/O OR W/BRUSH/WASH 01/27/2005 EGD - EGD W/O OR W/BRUSH/WASH 11/21/14 EGD - OPEN CORONARY ENDARTERECTOMY 1999 Angioplasty with stent placement - PACEMAKER 2016 - REMOVAL OF TONSILS,<12 Y/O Tonsillectomy - REPAIR RETINAL DETACH, C 10/2010 - REVISE MEDIAN N/CARPAL TUNNEL SURG Right 09/10/2017 Right CTR - REVISE ULNAR NERVE AT ELBOW Right 09/10/2017 Right ulnar nerve decompression - TOTAL HIP REPLACEMENT 2000 Hip replacement, total, right - TOTAL HIP REPLACEMENT 2001 Hip replacement, total, left Family History FAMILY HISTORY Problem Relation Age of Onset - Heart Father - Cancer Mother Lung - Heart Paternal Grandfather - Heart Brother Patient Allergies ALLERGIES Allergen Reactions - Lisinopril Other: See Comments Metallic taste in mouth. - Sertraline GI Upset Current Medications Current Outpatient Prescriptions on File Prior to Visit: sucralfate (CARAFATE) 1 gram tablet Take 1 tablet by mouth three times daily before meals. 30 minutes before meals. pantoprazole DR (PROTONIX) 40 mg tablet Take 1 tablet by mouth daily before breakfast. Take on empty stomach, 1/2 hr before meal. Per Gastroenterology nitroglycerin sublingual (NITROSTAT) 0.4 mg SL tablet Take 1 tablet by mouth as needed. for chest pain; dissolve on tongue. If no pain relief call 911. traZODone (DESYREL) 50 mg tablet Take 1 tablet by mouth at bedtime as needed (sedation). polyethylene glycol 3350 (MIRALAX, GLYCOLAX) 17 gram/dose powder 17 g up to twice daily as needed prn constipation furosemide (LASIX) 80 mg tablet One PO daily in AM furosemide (LASIX) 40 mg tablet One PO daily at dinner oxybutynin (DITROPAN) 5 mg tablet Take 1 tablet by mouth three times daily. glimepiride (AMARYL) 1 mg tablet Take 1 tablet by mouth daily with breakfast. metoprolol tartrate, short acting, (LOPRESSOR) 25 mg tablet Take 1 tablet by mouth every 12 hours. ketoconazole (NIZORAL) 2 % shampoo Use as a body wash, most specifically the chest, daily for itching and flaking; may keep in own shower triamcinolone acetonide (KENALOG) 0.1 % cream Apply to itching rash on chest twice daily ONLY when needed; may keep in room atorvastatin (LIPITOR) 80 mg tablet Take 1 tablet by mouth once daily. tamsulosin ER (FLOMAX) 0.4 mg cp24 Take 1 capsule by mouth every evening. for prostate metFORMIN (GLUCOPHAGE) 500 mg tablet Take 1 tablet by mouth three times daily with meals. Ranitidine HCl 300 mg tablet Take with evening meal. magnesium oxide (MAG-OX) 400 mg tablet Take 1 tablet by mouth once daily. docusate sodium (DOC-Q-LACE) 100 mg capsule Take 1 capsule by mouth once daily. COMPOUNDED PRESCRIPTION Please eval and fix any issues with walker.Dx: I50.33, I25.10, E66.01, M54.42, M25.551 bisacodyl (DULCOLAX) 10 mg supp 1 Suppository by RECTAL route once daily as needed (for constipation). aspirin, enteric coated (ADULT LOW DOSE ASPIRIN) 81 mg EC tablet Take 1 tablet by mouth once daily. COMPOUNDED PRESCRIPTION Glucometer high/low test solution for accucheck. DX: DM COMPOUNDED PRESCRIPTION Please perform a nocturnal oximetry on room air on BiPAP. Diagnosis: HypoxiaPlease fax results to [phone] Attn: Glendy Lancets (ACCU-CHEK FASTCLIX) lancets Test glucose twice weekly. Dx: 250.00. Insulin Use: no blood sugar diagnostic test strip testing twice weekly dx 250.00 insulin no Blood-Glucose Meter, Drum-type (ACCU-CHEK COMPACT PLUS CARE) kit Test fasting blood sugar 1-2 times a week and 2 hrs post meal 1- 2 times a week. Blood-Glucose Meter (ONETOUCH ULTRA 2) monitoring kit 1 Each as needed. One Touch Meter Kit Diagnosis: Diabetes Mellitus Blood Glucose Control, Normal (OT ULTRA/FASTTRACK CONTROL) soln Test controls as needed. COMPOUNDED PRESCRIPTION BIPAP setting: IPAP 22cm water with heated humidification EPAP setting of 16cm with supplemental oxygen bleed in at 2lt per minute. Mask (per patient preference) and supplies for lifetime. Please add chin strap DX EDMOND 327.23 No current facility-administered medications on file prior to visit. 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 Alcohol use: Yes 31.5 oz/week 7 Cans of Beer (12oz), 14 Mixed Drinks per week Comment: 2/beer/mixed drink daily Drug use: No Sexual activity: No Social History Narrative OARRS report reviewed October 22, 2011 Matt Taylor MD Review of Symptoms REVIEW OF SYSTEMS GENERAL: No weight loss, malaise or fevers NECK: Negative for lumps, goiter, pain and significant neck swelling RESPIRATORY: Cough productive with phlegm, episodes of hemoptysis, shortness of breath and AGUAYO CARDIOVASCULAR: See HPI, chest pain with recent neg cardiac work up GI: Denies abdominal pain. Some nausea/diarrhea since gallbladder removal ENDOCRINE: Negative for cold or heat intolerance, polyuria, polydipsia and goiter EXAM: BP 138/68 Pulse 84 Resp 14 Wt (!) 152.9 kg (337 lb) BMI 45.71 kg/m2 General Appearance: Well appearing, alert, in no acute distress, well-hydrated, well nourished., Morbidly obese. Neck: Supple, no adenopathy; thyroid symmetric, normal size, no bruits. Lungs: Lungs clear to auscultation. No wheezing, rhonchi, rales. Heart: RRR without murmur, gallop, or rubs. No ectopy. Extremities: No discoloration or cyanosis. Mild LE edema. Peripheral Pulses: Normal. Health Maintenance List TETANUS due on 07/30/2016 HBA1C due on 01/21/2018 DILATED RETINAL EXAM due on 04/08/2018 LDL due on 07/23/2018 DIABETIC FOOT EXAM due on 09/16/2018 COLORECTAL CANCER SCREENING,SEE MODIFIER due on 12/29/2026 PROSTATE CANCER SCREENING DISCUSSION Completed ADULT PREVNAR-13 Completed INFLUENZA Completed PNEUMOVAX AGE 65 AND OVER WITH 5YR LOOKBACK Completed Data reviewed ER REport: Stress test: Conclussion: Normal pharmacologic myocardial perfusion stress test. Mild cardiomyopathy present. ASSESSMENT/PLAN: 1. Chronic cough - ICD9: 786.2, ICD10: R05 (primary diagnosis) Discussed pulm referral but patient declines 2. Hemoptysis - ICD9: 786.30, ICD10: R04.2 See above. Follow with Cardiology for anticoagulation management 3. EDMOND (obstructive sleep apnea) - ICD9: 327.23, ICD10: G47.33 Continue CPAP 4. 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 Paroxysmal atrial fibrillation (HCC) - ICD9: 427.31, ICD10: I48.0 Keep follow up with cardio. 6. Controlled type 2 diabetes mellitus with diabetic nephropathy, without long-term current use of insulin (HCC) - ICD9: 250.40, 583.81, ICD10: E11.21 Controlled. - Continue current medications 7. Acute on chronic diastolic CHF (congestive heart failure), NYHA class 4 (HCC) - ICD9: 428.33, 428.0, ICD10: I50.33 Stable 8. Mild intermittent asthma without complication - ICD9: 493.90, ICD10: J45.20 Mild intermittent Asthma stable - Avoidance of triggers recommended Keep scheduled Follow up with PCP Return sooner as needed. RETA WILSON CNOV Observed: 11/30/2017 Status: COMPLETED Source: [place] 8:20 AM [facility] RE[facility] Office Visit (FAMPWS) MAYCO KENDRICK ([id number]) 1940 M NFR Date Time Provider Department 11/30/17 8:20 AM MELLY MCCLOUD) FAMPWS During your visit today, we recorded the following information about you: Pulse Respiration Blood pressure Weight 84/minute 14/minute 138/68 152.9 kg RETA WILSON 11/30/2017 10:14 AM Signed Chief Complaint Patient presents with: Hospital F/U HPI Mayco Kendrick is a 77 year old male who presents here today for ER/Hospital follow up. Patient was Admitted into the hospital for chest pain on 11/19-11/20. Cardiac work up was wnl. Normal Stress test. patient does report hemoptysis- States this happens when he gets started on blood thinners. Reports that he notices the blood early am. When he was on coumadin he would have hemoptysis day and night. Past couple days he has not seen any blood. Patient still has cough that is productive with phlegm. No cough at night. Some shortness of breath at night not every night. No worsening swelling. Has seen pulmonology in past and wants to speak with cardio before going back to Pulm. Past medical history, appointments, medications, allergies reviewed. Previous Medical History PAST MEDICAL HISTORY Diagnosis Date - Abdominal pain 08/11/2014 w some distention. Appears chronic -abdominal ultrasound - ACUTE GASTRITIS W/O HEMORRHAGE 12/21/2006 - Acute on chronic diastolic CHF (congestive heart failure), NYHA class 4 ([facility]) 03/08/2014 H/o HFpEF with diastolic dysfunction, ICM 55% EF Presents with CP and SOB Weight gain 30lbs in last 3 months Currently SOB and volume overload, in setting of unstable angina (killip 3) Plan Continue Diuresis As above for possible restrictive CM - ALLERGIC RHINITIS NOS 05/03/2006 - Asthma - ASTHMA UNSPECIFIED - Benign neoplasm of colon - Benign neoplasm of rectum and anal canal - Bilateral leg edema 11/05/2008 - Bradycardia 08/11/2014 Patient with sinus bradycardia with Type 1 Mobitz since 2011 however Pulse dropping to high 30s with dizziness Plan: Place on tele for monitoring EP evaluation for ? Pacemaker with new onset of symptoms 2/2 to relative hypotension vs bradycardia Daily EKGs to evaluate rhythm, still appears to be Mobitz type 1 Keep K and Mag above 4 and 2 respectively - Carpal tunnel syndrome 03/28/2010 - Chest pain 07/26/2014 73 year old male transferred from OSH for Unstable angina, chest pain on a Nitro and heparin Drip. First set of enzymes was negative. No ST-T wave chanes on EKG Mobitz type 1 AV block (chronic) ALVERTO score 5 With associated SOB and Pulmonary edema on CXR (Killip class 3) Found not to have acute plaque rupture ?Restrictive cardiomyopathy Will need LHC (LVEDP) and RHC tomorrow - per Dr. Pepe would like Dr. Randall PLAN NPO at midnight Call Cath Charge in AM to confirm schedule and attending Continue diuresis Additionally: - ASA - Stop plavix - reduce Atorvastatin to 20mg (home dose, last LDL ~55) - Losartan - Chest pain with painful respiration 08/11/2014 Chest heaviness. Unstable angina ? -stat EKG -telemetry - trend Ghazala - Congestive heart failure (HCC) - Controlled type 2 diabetes mellitus with diabetic nephropathy (HCC) 01/18/2014 - Coronary artery disease - CORONARY ATHEROSCLER UNSPEC VESSEL 05/15/2005 - Coronary atherosclerosis due to lipid rich plaque 09/25/2015 - Depression - DEPRESSIVE DISORDER NEC 02/19/2009 - Diverticulitis - Diverticulosis of colon (without mention of hemorrhage) - DM type 2 (diabetes mellitus, type 2) (HCC) 09/05/2014 - Edema 11/05/2008 - Essential hypertension, benign 02/02/2011 Essential hypertension, benign Home meds - losartan, norvasc, isosorbide mononitrate, lasix ANDamp; torsemide PLAN -hypotensive at OSH so hold bp meds for now. Resume as the bp normalizes. - IV lasix 40 mg once for now -resume home dose of lasix ANDamp; torsemide PO in the morning - Frequency of urination 02/01/2014 - GERD (gastroesophageal reflux disease) 09/05/2014 - Hand fracture, left 10/13/2011 - Heart block AV complete 05/11/2013 - Hip fracture, right (HCC) 09/22/2012 Treated medically - History of prostatitis 04/11/2013 - Hyperlipidemia - Hypertension - Hypertrophy of nasal turbinates 07/06/2012 consult with [facility] ENT 06/29/2012 Plan to schedule ablation of inferior turbinates @ [facility]. - Insomnia, unspecified 06/17/2011 OARRS report reviewed October 22, 2011 Matt Taylor MD - Leg swelling - Lumbago 05/11/2007 - MALIGN NEOPL PROSTATE - Mobitz (type) I (Wenckebach's) atrioventricular block 07/26/[address] Eric Go in 2013. Chronic conduction abnormality. does not need a pacemaker. Here with concern for ACS EKG: mobitz type 1, unchanged from prior, no ST-T wave changes BP stable Plan: Monitor Avoiding BB - Morbid obesity 06/02/2011 07/08/2017: H: 72 in, W: 358 lb, BMI 48.54. 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 01/18/2014 - Type II or unspecified type diabetes mellitus without mention of complication, not stated as uncontrolled - Unspecified sleep apnea CPAP 18 with 1L - Urgency of urination 02/01/2014 Previous Surgical History PAST SURGICAL HISTORY Procedure Laterality Date - CABG, ARTERY-VEIN, TWO 1998 CABG, two grafts - CHOLECYSTECTOMY HX 10/14/2015 gangrenous gallbladder - COLONOSCOP W/ OR W/O [facility] SPEC 01/27/2005 Colonoscopy - COLONOSCOP W/ OR W/O [facility]RS SPEC 12/21/2006` repeat in -2011 - COLONOSCOP W/ OR W/O [facility] SPEC 05/18/2012 Colonoscopy repeat 5 years - COLONOSCOPY 12/29/2016 repeat 10 yrs - EGD 12/29/2016 - EGD W/O [facility] SPECIMEN W/BX 12/21/06 - EGD W/O OR W/BRUSH/WASH 01/27/2005 EGD - EGD W/O OR W/BRUSH/WASH 11/21/14 EGD - OPEN CORONARY ENDARTERECTOMY 1999 Angioplasty with stent placement - PACEMAKER 2016 - REMOVAL OF TONSILS,ANDlt;12 Y/O Tonsillectomy - REPAIR RETINAL DETACH, C 10/2010 - REVISE MEDIAN N/CARPAL TUNNEL SURG Right 09/10/2017 Right CTR - REVISE ULNAR NERVE AT ELBOW Right 09/10/2017 Right ulnar nerve decompression - TOTAL HIP REPLACEMENT 2000 Hip replacement, total, right - TOTAL HIP REPLACEMENT 2001 Hip replacement, total, left Family History FAMILY HISTORY Problem Relation Age of Onset - Heart Father - Cancer Mother Lung - Heart Paternal Grandfather - Heart Brother Patient Allergies ALLERGIES Allergen Reactions - Lisinopril Other: See Comments Metallic taste in mouth. - Sertraline GI Upset Current Medications Current Outpatient Prescriptions on File Prior to Visit: sucralfate (CARAFATE) 1 gram tablet Take 1 tablet by mouth three times daily before meals. 30 minutes before meals. pantoprazole DR (PROTONIX) 40 mg tablet Take 1 tablet by mouth daily before breakfast. Take on empty stomach, 1/2 hr before meal. Per Gastroenterology nitroglycerin sublingual (NITROSTAT) 0.4 mg SL tablet Take 1 tablet by mouth as needed. for chest pain; dissolve on tongue. If no pain relief call 911. traZODone (DESYREL) 50 mg tablet Take 1 tablet by mouth at bedtime as needed (sedation). polyethylene glycol 3350 (MIRALAX, GLYCOLAX) 17 gram/dose powder 17 g up to twice daily as needed prn constipation furosemide (LASIX) 80 mg tablet One PO daily in AM furosemide (LASIX) 40 mg tablet One PO daily at dinner oxybutynin (DITROPAN) 5 mg tablet Take 1 tablet by mouth three times daily. glimepiride (AMARYL) 1 mg tablet Take 1 tablet by mouth daily with breakfast. metoprolol tartrate, short acting, (LOPRESSOR) 25 mg tablet Take 1 tablet by mouth every 12 hours. ketoconazole (NIZORAL) 2 % shampoo Use as a body wash, most specifically the chest, daily for itching and flaking; may keep in own shower triamcinolone acetonide (KENALOG) 0.1 % cream Apply to itching rash on chest twice daily ONLY when needed; may keep in room atorvastatin (LIPITOR) 80 mg tablet Take 1 tablet by mouth once daily. tamsulosin ER (FLOMAX) 0.4 mg cp24 Take 1 capsule by mouth every evening. for prostate metFORMIN (GLUCOPHAGE) 500 mg tablet Take 1 tablet by mouth three times daily with meals. Ranitidine HCl 300 mg tablet Take with evening meal. magnesium oxide (MAG-OX) 400 mg tablet Take 1 tablet by mouth once daily. docusate sodium (DOC-Q-LACE) 100 mg capsule Take 1 capsule by mouth once daily. COMPOUNDED PRESCRIPTION Please eval and fix any issues with walker.Dx: I50.33, I25.10, E66.01, M54.42, M25.551 bisacodyl (DULCOLAX) 10 mg supp 1 Suppository by RECTAL route once daily as needed (for constipation). aspirin, enteric coated (ADULT LOW DOSE ASPIRIN) 81 mg EC tablet Take 1 tablet by mouth once daily. COMPOUNDED PRESCRIPTION Glucometer high/low test solution for accucheck. DX: DM COMPOUNDED PRESCRIPTION Please perform a nocturnal oximetry on room air on BiPAP. Diagnosis: HypoxiaPlease fax results to [phone] Attn: Glendy Lancets (ACCU-CHEK FASTCLIX) lancets Test glucose twice weekly. Dx: 250.00. Insulin Use: no blood sugar diagnostic test strip testing twice weekly dx 250.00 insulin no Blood-Glucose Meter, Drum-type (ACCU-CHEK COMPACT PLUS CARE) kit Test fasting blood sugar 1-2 times a week and 2 hrs post meal 1-2 times a week. Blood-Glucose Meter (ONETOUCH ULTRA 2) monitoring kit 1 Each as needed. One Touch Meter Kit Diagnosis: Diabetes Mellitus Blood Glucose Control, Normal (OT ULTRA/FASTTRACK CONTROL) soln Test controls as needed. COMPOUNDED PRESCRIPTION BIPAP setting: IPAP 22cm water with heated humidification EPAP setting of 16cm with supplemental oxygen bleed in at 2lt per minute. Mask (per patient preference) and supplies for lifetime. Please add chin strap DX EDMOND 327.23 No current facility-administered medications on file prior to visit. 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 Alcohol use: Yes 31.5 oz/week 7 Cans of Beer (12oz), 14 Mixed Drinks per week Comment: 2/beer/mixed drink daily Drug use: No Sexual activity: No Social History Narrative [facility] report reviewed October 22, 2011 Matt Taylor MD Review of Symptoms REVIEW OF SYSTEMS GENERAL: No weight loss, malaise or fevers NECK: Negative for lumps, goiter, pain and significant neck swelling RESPIRATORY: Cough productive with phlegm, episodes of hemoptysis, shortness of breath and AGUAYO CARDIOVASCULAR: See HPI, chest pain with recent neg cardiac work up GI: Denies abdominal pain. Some nausea/diarrhea since gallbladder removal ENDOCRINE: Negative for cold or heat intolerance, polyuria, polydipsia and goiter EXAM: BP 138/68 Pulse 84 Resp 14 Wt (!) 152.9 kg (337 lb) BMI 45.71 kg/m2 General Appearance: Well appearing, alert, in no acute distress, well-hydrated, well nourished., Morbidly obese. Neck: Supple, no adenopathy; thyroid symmetric, normal size, no bruits. Lungs: Lungs clear to auscultation. No wheezing, rhonchi, rales. Heart: RRR without murmur, gallop, or rubs. No ectopy. Extremities: No discoloration or cyanosis. Mild LE edema. Peripheral Pulses: Normal. Health Maintenance List TETANUS due on 07/30/2016 HBA1C due on 01/21/2018 DILATED RETINAL EXAM due on 04/08/2018 LDL due on 07/23/2018 DIABETIC FOOT EXAM due on 09/16/2018 COLORECTAL CANCER SCREENING,SEE MODIFIER due on 12/29/2026 PROSTATE CANCER SCREENING DISCUSSION Completed ADULT PREVNAR-13 Completed INFLUENZA Completed PNEUMOVAX AGE 65 AND OVER WITH 5YR LOOKBACK Completed Data reviewed ER REport: Stress test: Conclussion: Normal pharmacologic myocardial perfusion stress test. Mild cardiomyopathy present. ASSESSMENT/PLAN: 1. Chronic cough - ICD9: 786.2, ICD10: R05 (primary diagnosis) Discussed pulm referral but patient declines 2. Hemoptysis - ICD9: 786.30, ICD10: R04.2 See above. Follow with Cardiology for anticoagulation management 3. EDMOND (obstructive sleep apnea) - ICD9: 327.23, ICD10: G47.33 Continue CPAP 4. 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 Paroxysmal atrial fibrillation (HCC) - ICD9: 427.31, ICD10: I48.0 Keep follow up with cardio. 6. Controlled type 2 diabetes mellitus with diabetic nephropathy, without long-term current use of insulin (HCC) - ICD9: 250.40, 583.81, ICD10: E11.21 Controlled. - Continue current medications 7. Acute on chronic diastolic CHF (congestive heart failure), NYHA class 4 (HCC) - ICD9: 428.33, 428.0, ICD10: I50.33 Stable 8. Mild intermittent asthma without complication - ICD9: 493.90, ICD10: J45.20 Mild intermittent Asthma stable - Avoidance of triggers recommended Keep scheduled Follow up with PCP Return sooner as needed. RETA WILSON Referring Provider: SELF [[id number]] Allergies As of Date: 11/30/2017 Noted Allergy Reaction LISINOPRIL 05/31/2014 14 - Other: See Comments Comments: Metallic taste in mouth. 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) [I25.700] Paroxysmal atrial fibrillation (HCC) [I48.0] Controlled type 2 diabetes mellitus with diabetic nephropathy, without long-term current use of insulin (HCC) [E11.21] Acute on chronic diastolic CHF (congestive heart failure), NYHA class 4 (HCC) [I50.33] Mild intermittent asthma without complication [J45.20] Order(s):rivaroxaban (XARELTO) 20 mg tabletTake 1 tablet by mouth daily with dinner.Disp: Rfl: Prescriptions as of 11/30/2017 Sig: SUCRALFATE 1 GRAM TABLET Take 1 tablet by mouth three * PANTOPRAZOLE 40 MG TABLET,DEL* Take 1 tablet by mouth daily * FUROSEMIDE 80 MG TABLET One PO daily in AM FUROSEMIDE 40 MG TABLET One PO daily at dinner OXYBUTYNIN CHLORIDE 5 MG TABL* Take 1 tablet by mouth three * GLIMEPIRIDE 1 MG TABLET Take 1 tablet by mouth daily * METOPROLOL TARTRATE 25 MG TAB* Take 1 tablet by mouth every * ATORVASTATIN 80 MG TABLET Take 1 tablet by mouth once d* TAMSULOSIN 0.4 MG CAPSULE Take 1 capsule by mouth every* METFORMIN 500 MG TABLET Take 1 tablet by mouth three * NITROGLYCERIN 0.4 MG SUBLINGU* Take 1 tablet by mouth as nee* TRAZODONE 50 MG TABLET Take 1 tablet by mouth at bed* RANITIDINE 300 MG TABLET Take with evening meal. MAGNESIUM OXIDE 400 MG TABLET Take 1 tablet by mouth once d* DOCUSATE SODIUM 100 MG CAPSULE Take 1 capsule by mouth once * BISACODYL 10 MG RECTAL SUPPOS* 1 Suppository by RECTAL route* POLYETHYLENE GLYCOL 3350 17 G* 17 g up to twice daily as nee* ASPIRIN 81 MG TABLET,DELAYED * Take 1 tablet by mouth once d* COMPOUNDED PRESCRIPTION Glucometer high/low test solu* LANCETS Test glucose twice weekly. Dx* BLOOD SUGAR DIAGNOSTIC STRIPS testing twice weekly dx 250* BLOOD-GLUCOSE METER, DRUM-TYP* Test fasting blood sugar 1-2 * BLOOD-GLUCOSE METER KIT 1 Each as needed. One Touch M* BLOOD GLUCOSE CONTROL, NORMAL* Test controls as needed. RIVAROXABAN 20 MG TABLET Take 1 tablet by mouth daily * KETOCONAZOLE 2 % SHAMPOO Use as a body wash, most spec* TRIAMCINOLONE ACETONIDE 0.1 %* Apply to itching rash on ches* COMPOUNDED PRESCRIPTION Please eval and fix any issue* COMPOUNDED PRESCRIPTION Please perform a nocturnal ox* * COMPOUNDED PRESCRIPTION BIPAP setting: IPAP 22cm wate* Problem List As Of Date 11/30/2017 Noted Resolved Mild intermittent asthma without complication [* Priority: A MALIGN NEOPL PROSTATE [C61] Priority: B More... Type II or unspecified type diabetes mellitus w* 01/18/2014 Allergic rhinitis, cause unspecified [J30.9] INVALID FOR* Priority: B More... Personal history of colonic polyps [Z86.010] Priority: C More... Lumbago [M54.5] INVALID FOR* Priority: M Bilateral leg edema [R60.0] INVALID FOR* Priority: A Carpal tunnel syndrome [G56.00] INVALID FOR* Priority: M Essential hypertension, benign [I10] INVALID FOR* Priority: A More... Insomnia, unspecified [G47.00] INVALID FOR* Priority: B More... Benign neoplasm of rectum and anal canal [D12.8*INVALID FOR* Priority: C Diverticulosis of colon (without mention of hem*INVALID FOR* Priority: C Hypertrophy of nasal turbinates [J34.3] INVALID FOR* Priority: C More... 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 More... More... EDMOND (obstructive sleep apnea) [G47.33] INVALID FOR* Priority: B More... Mobitz (type) I (Wenckebach's) atrioventricular*INVALID FOR* Priority: A More... More... Mixed hyperlipidemia [E78.2] INVALID FOR* Priority: A More... DVT prophylaxis [CTA2926] INVALID FOR*07/26/2014 More... More... More... More... More... More... Bradycardia [R00.1] INVALID FOR* Priority: A More... Venous stasis dermatitis of both lower extremit*INVALID FOR* Priority: B Counseling and coordination of care [Z71.89] INVALID FOR*04/12/2015 More... Hypomagnesemia [E83.42] INVALID FOR* Priority: B Diabetic eye exam (HCC) [Z01.00, E11.9] INVALID FOR* Priority: A More... Dry mouth [R68.2] INVALID FOR* Priority: B Noncompliance [Z91.19] INVALID FOR* Gastroesophageal reflux disease without esophag*INVALID FOR* Priority: A Coronary atherosclerosis due to lipid rich plaq*INVALID FOR* Priority: A Morbid obesity due to excess calories (HCC) [E6*INVALID FOR* Priority: B More... Essential tremor [G25.0] INVALID FOR* Priority: B Chronic cough [R05] INVALID FOR* Priority: B Well adult exam [Z00.00] INVALID FOR* Priority: E More... Controlled type 2 diabetes mellitus with diabet*INVALID FOR* Priority: A Depression [F32.9] INVALID FOR* Priority: A Multiple open wounds of lower leg [S81.809A] INVALID FOR* Priority: D Colon cancer screening [Z12.11] INVALID FOR* Chest pain [R07.9] INVALID FOR* Priority: B More... Second degree heart block [I44.1] INVALID FOR* Priority: A More... Atherosclerosis of coronary artery bypass graft*INVALID FOR* Priority: A More... More... More... More... Hypoxia [R09.02] INVALID FOR* Chronic bilateral low back pain with left-sided*INVALID FOR* Priority: M Bilateral hip pain [M25.551, M25.552] INVALID FOR* Priority: M Paroxysmal atrial fibrillation (HCC) [I48.0] INVALID FOR* Priority: A More... 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 Right carpal tunnel syndrome [G56.01] INVALID FOR* Priority: M More... Presence of cardiac pacemaker [Z95.0] INVALID FOR* Priority: B Esophagitis [K20.9] INVALID FOR* Albuminuria [R80.9] INVALID FOR* Priority: A Carpal tunnel syndrome, bilateral [G56.03] INVALID FOR* Priority: M More... Ulnar nerve compression, right [G56.21] INVALID FOR* Priority: M More... Current use of proton pump inhibitor [Z79.899] INVALID FOR* Prescriptions ordered this encounter Disp Refills Start End RIVAROXABAN 20 MG TABLET 11/30/2017 Class: Med Update Route: ORAL Sig: Take 1 tablet by mouth daily with dinner. Encounter Status:Closed by MELLY MCCLOUD on 11/30/17 PROGRESS Observed: 11/29/2017 Status: COMPLETED Source: [place] 11:01 AM [facility] REPOSITORY [facility] ID: [id number] Author: Rebecca Sanders Service: (none) Author Type: Registered Dietitian Type: Progress Notes Filed: 11/29/2017 11:30 AM Note Text: Nutritional Therapy: Re-Assessment PAIN: Is the patient having any pain that is interfering with oral / enteral intake? No 0 on a scale of 0 to 10 PROGRESS: Nutrition Intervention (date of last encounter 10/18/17): 1. Increase walking to 3-4 x per week; if able add 2-3 days of weight resistance exercise 2. Have blood sugar checked when feeling low (~10) ;if have low feelings include lean protein at breakfast and WHOLE GRAIN carb 3. All beverages calorie free and sugar free CHANGES IN TREATMENT: Patient met goal(s): Partially Actions to implement interventions: Walking inside Occ exercise program Exercises for hips Blood sugars around 150 Diet History: Provided by facility Frequent high fat, high saturated fat foods, fried foods Tea, lactose free milk, water, juice CLINICAL IMPRESSIONS: fair REVISIONS IN DIAGNOSIS: Diagnosis: has not changed. Allergies: Lisinopril; Sertraline Medications: Current Outpatient Prescriptions: sucralfate (CARAFATE) 1 gram tablet Take 1 tablet by mouth three times daily before meals. 30 minutes before meals. Disp: 90 tablet Rfl: [address] (PROTONIX) 40 mg tablet Take 1 tablet by mouth daily before breakfast. Take on empty stomach, 1/2 hr before meal. Per Gastroenterology Disp: 30 tablet Rfl: 11 furosemide (LASIX) 80 mg tablet One PO daily in AM Disp: 90 tablet Rfl: 3 furosemide (LASIX) 40 mg tablet One PO daily at dinner Disp: 90 tablet Rfl: 3 oxybutynin (DITROPAN) 5 mg tablet Take 1 tablet by mouth three times daily. Disp: 90 tablet Rfl: 11 glimepiride (AMARYL) 1 mg tablet Take 1 tablet by mouth daily with breakfast. Disp: 90 tablet Rfl: 3 metoprolol tartrate, short acting, (LOPRESSOR) 25 mg tablet Take 1 tablet by mouth every 12 hours. Disp: 180 tablet Rfl: 3 ketoconazole (NIZORAL) 2 % shampoo Use as a body wash, most specifically the chest, daily for itching and flaking; may keep in own shower Disp: 340 mL Rfl: 6 triamcinolone acetonide (KENALOG) 0.1 % cream Apply to itching rash on chest twice daily ONLY when needed; may keep in room Disp: 454 g Rfl: 2 atorvastatin (LIPITOR) 80 mg tablet Take 1 tablet by mouth once daily. Disp: 90 tablet Rfl: 3 tamsulosin ER (FLOMAX) 0.4 mg cp24 Take 1 capsule by mouth every evening. for prostate Disp: 90 capsule Rfl: 3 metFORMIN (GLUCOPHAGE) 500 mg tablet Take 1 tablet by mouth three times daily with meals. Disp: 270 tablet Rfl: 3 nitroglycerin sublingual (NITROSTAT) 0.4 mg SL tablet Take 1 tablet by mouth as needed. for chest pain; dissolve on tongue. If no pain relief call 911. Disp: 2 Bottle of 25 Rfl: 5 traZODone (DESYREL) 50 mg tablet Take 1 tablet by mouth at bedtime as needed (sedation). Disp: 15 tablet Rfl: 5 Ranitidine HCl 300 mg tablet Take with evening meal. Disp: 30 tablet Rfl: 5 magnesium oxide (MAG-OX) 400 mg tablet Take 1 tablet by mouth once daily. Disp: 90 tablet Rfl: 3 docusate sodium (DOC-Q-LACE) 100 mg capsule Take 1 capsule by mouth once daily. Disp: 90 capsule Rfl: 1 COMPOUNDED PRESCRIPTION Please eval and fix any issues with walker.Dx: I50.33, I25.10, E66.01, M54.42, M25.551 Disp: 1 Device Rfl: 0 bisacodyl (DULCOLAX) 10 mg supp 1 Suppository by RECTAL route once daily as needed (for constipation). Disp: Rfl: 0 polyethylene glycol 3350 (MIRALAX, GLYCOLAX) 17 gram/dose powder 17 g up to twice daily as needed prn constipation Disp: Rfl: 0 aspirin, enteric coated (ADULT LOW DOSE ASPIRIN) 81 mg EC tablet Take 1 tablet by mouth once daily. Disp: 90 tablet Rfl: 3 COMPOUNDED PRESCRIPTION Glucometer high/low test solution for accucheck. DX: DM Disp: 1 Bottle Rfl: 3 COMPOUNDED PRESCRIPTION Please perform a nocturnal oximetry on room air on BiPAP. Diagnosis: HypoxiaPlease fax results to [phone] Attn: Glendy Disp: 1 Each Rfl: 0 Lancets (ACCU-CHEK FASTCLIX) lancets Test glucose twice weekly. Dx: 250.00. Insulin Use: no Disp: 100 Each Rfl: 11 blood sugar diagnostic test strip testing twice weekly dx 250.00 insulin no Disp: 50 Strip Rfl: 12 Blood-Glucose Meter, Drum-type (ACCU-CHEK COMPACT PLUS CARE) kit Test fasting blood sugar 1-2 times a week and 2 hrs post meal 1- 2 times a week. Disp: 1 Kit Rfl: 0 Blood-Glucose Meter (ONETOUCH ULTRA 2) monitoring kit 1 Each as needed. One Touch Meter Kit Diagnosis: Diabetes Mellitus Disp: 1 Each Rfl: 0 Blood Glucose Control, Normal (OT ULTRA/FASTTRACK CONTROL) soln Test controls as needed. Disp: 1 Each Rfl: 3 COMPOUNDED PRESCRIPTION BIPAP setting: IPAP 22cm water with heated humidification EPAP setting of 16cm with supplemental oxygen bleed in at 2lt per minute. Mask (per patient preference) and supplies for lifetime. Please add chin strap DX EDMOND 327.23 Disp: 1 Act Rfl: 99 No current facility-administered medications for this visit. (currently taking) Anthropometrics: Height: Last 1 Encounter Ht Readings: Date: Ht: 11/29/2017 182.9 cm (6') Current weight: Last 1 Encounter Wt Readings: Date: Wt: 11/29/2017 153.1 kg (337 lb 8 oz) Body mass index is 45.77 kg/(m2). Resting Metabolic Rate: 2303 NUTRITION ASSESSMENT: Malnutrition Screening Significant unintentional weight loss? No Eating less than 75% of usual intake for more than 2 weeks? No RECOMMENDED MALNUTRITION DIAGNOSIS: NO MALNUTRITION IDENTIFIED Educational materials provided: none this visit READINESS TO LEARN Cognitive ability: Alert and oriented Motivation to learn: Interested Family support: Unable to assess - Family not present Instruction provided to: Patient Patient learns best by: Individual Instruction Factors affecting learning: None Physical limitations affecting learning: None Likelihood of Adherence: Moderate Patient presents for follow up MNT relates to weight control. Diabetes, HTN, dyslipidemia, CAD, CHF, dysphagia, GERD. ??Is in assisted living, meals provided by facility, limited control over foods to choose. Foten high fat and high calorie, fried foods. Has been trying to be more active. Note 1.5 pounds lost since last visit. States was lower but stopped watching and has some regain. Nutrition Diagnosis: Overweight Obesity, related to; excess energy intake and physical inactivity, as evidenced by BMI above normative standard for age and gender. Nutrition Intervention 11/29/2017: modify type and amount of food or beverage 1. All beverages calorie free and sugar free, no juice 2. Use hunger fullness scale, focus on smaller portions, stop at a 6-7. 3.increase exercise to at least 20 min most days, try for activity 5 min every hour. 4. Continue to make best choice possible for meals out of what is served. Nutrition Monitoring AND Evaluation: weight loss Criteria: patient update Need for Follow up: 2 mnths Referred/Supervised by: Amairani DESOUZAT Billing Type: Re-assess/15 min 2 units SIGNATURE: Rebecca Sanders MS RD LD PATIENT NAME: Mayco Kendrick DATE: November 29, 2017 TIME: 11:01 AM CNCNPATED Observed: 11/29/2017 Status: COMPLETED Source: [place] 11:00 AM [facility] REPOSITORY Education (NUTRWS) MAYCO KENDRICK ([id number]) 1940 M NFR Date Time Provider Department 11/29/17 11:00 AM REBECCA SANDERS (UYEN) JOSE Reason for Visit: Patient Education [91] Reassessment [674] Progress Notes: Rebecca Sanders MS RD LD 11/29/2017 11:30 AM Signed Nutritional Therapy: Re-Assessment PAIN: Is the patient having any pain that is interfering with oral / enteral intake? No 0 on a scale of 0 to 10 PROGRESS: Nutrition Intervention (date of last encounter 10/18/17): 1. Increase walking to 3-4 x per week; if able add 2-3 days of weight resistance exercise 2. Have blood sugar checked when feeling low (~10) ;if have low feelings include lean protein at breakfast and WHOLE GRAIN carb 3. All beverages calorie free and sugar free CHANGES IN TREATMENT: Patient met goal(s): Partially Actions to implement interventions: Walking inside [facility] exercise program Exercises for hips Blood sugars around 150 Diet History: Provided by facility Frequent high fat, high saturated fat foods, fried foods Tea, lactose free milk, water, juice CLINICAL IMPRESSIONS: fair REVISIONS IN DIAGNOSIS: Diagnosis: has not changed. Allergies: Lisinopril; Sertraline Medications: Current Outpatient Prescriptions: sucralfate (CARAFATE) 1 gram tablet Take 1 tablet by mouth three times daily before meals. 30 minutes before meals. Disp: 90 tablet Rfl: [address] (PROTONIX) 40 mg tablet Take 1 tablet by mouth daily before breakfast. Take on empty stomach, 1/2 hr before meal. Per Gastroenterology Disp: 30 tablet Rfl: 11 furosemide (LASIX) 80 mg tablet One PO daily in AM Disp: 90 tablet Rfl: 3 furosemide (LASIX) 40 mg tablet One PO daily at dinner Disp: 90 tablet Rfl: 3 oxybutynin (DITROPAN) 5 mg tablet Take 1 tablet by mouth three times daily. Disp: 90 tablet Rfl: 11 glimepiride (AMARYL) 1 mg tablet Take 1 tablet by mouth daily with breakfast. Disp: 90 tablet Rfl: 3 metoprolol tartrate, short acting, (LOPRESSOR) 25 mg tablet Take 1 tablet by mouth every 12 hours. Disp: 180 tablet Rfl: 3 ketoconazole (NIZORAL) 2 % shampoo Use as a body wash, most specifically the chest, daily for itching and flaking; may keep in own shower Disp: 340 mL Rfl: 6 triamcinolone acetonide (KENALOG) 0.1 % cream Apply to itching rash on chest twice daily ONLY when needed; may keep in room Disp: 454 g Rfl: 2 atorvastatin (LIPITOR) 80 mg tablet Take 1 tablet by mouth once daily. Disp: 90 tablet Rfl: 3 tamsulosin ER (FLOMAX) 0.4 mg cp24 Take 1 capsule by mouth every evening. for prostate Disp: 90 capsule Rfl: 3 metFORMIN (GLUCOPHAGE) 500 mg tablet Take 1 tablet by mouth three times daily with meals. Disp: 270 tablet Rfl: 3 nitroglycerin sublingual (NITROSTAT) 0.4 mg SL tablet Take 1 tablet by mouth as needed. for chest pain; dissolve on tongue. If no pain relief call 911. Disp: 2 Bottle of 25 Rfl: 5 traZODone (DESYREL) 50 mg tablet Take 1 tablet by mouth at bedtime as needed (sedation). Disp: 15 tablet Rfl: 5 Ranitidine HCl 300 mg tablet Take with evening meal. Disp: 30 tablet Rfl: 5 magnesium oxide (MAG-OX) 400 mg tablet Take 1 tablet by mouth once daily. Disp: 90 tablet Rfl: 3 docusate sodium (DOC-Q-LACE) 100 mg capsule Take 1 capsule by mouth once daily. Disp: 90 capsule Rfl: 1 COMPOUNDED PRESCRIPTION Please eval and fix any issues with walker.Dx: I50.33, I25.10, E66.01, M54.42, M25.551 Disp: 1 Device Rfl: 0 bisacodyl (DULCOLAX) 10 mg supp 1 Suppository by RECTAL route once daily as needed (for constipation). Disp: Rfl: 0 polyethylene glycol 3350 (MIRALAX, GLYCOLAX) 17 gram/dose powder 17 g up to twice daily as needed prn constipation Disp: Rfl: 0 aspirin, enteric coated (ADULT LOW DOSE ASPIRIN) 81 mg EC tablet Take 1 tablet by mouth once daily. Disp: 90 tablet Rfl: 3 COMPOUNDED PRESCRIPTION Glucometer high/low test solution for accucheck. DX: DM Disp: 1 Bottle Rfl: 3 COMPOUNDED PRESCRIPTION Please perform a nocturnal oximetry on room air on BiPAP. Diagnosis: HypoxiaPlease fax results to [phone] Attn: Glendy Disp: 1 Each Rfl: 0 Lancets (ACCU-CHEK FASTCLIX) lancets Test glucose twice weekly. Dx: 250.00. Insulin Use: no Disp: 100 Each Rfl: 11 blood sugar diagnostic test strip testing twice weekly dx 250.00 insulin no Disp: 50 Strip Rfl: 12 Blood-Glucose Meter, Drum-type (ACCU-CHEK COMPACT PLUS CARE) kit Test fasting blood sugar 1-2 times a week and 2 hrs post meal 1-2 times a week. Disp: 1 Kit Rfl: 0 Blood-Glucose Meter (ONETOUCH ULTRA 2) monitoring kit 1 Each as needed. One Touch Meter Kit Diagnosis: Diabetes Mellitus Disp: 1 Each Rfl: 0 Blood Glucose Control, Normal (OT ULTRA/FASTTRACK CONTROL) soln Test controls as needed. Disp: 1 Each Rfl: 3 COMPOUNDED PRESCRIPTION BIPAP setting: IPAP 22cm water with heated humidification EPAP setting of 16cm with supplemental oxygen bleed in at 2lt per minute. Mask (per patient preference) and supplies for lifetime. Please add chin strap DX EDMOND 327.23 Disp: 1 Act Rfl: 99 No current facility-administered medications for this visit. (currently taking) Anthropometrics: Height: Last 1 Encounter Ht Readings: Date: Ht: 11/29/2017 182.9 cm (6') Current weight: Last 1 Encounter Wt Readings: Date: Wt: 11/29/2017 153.1 kg (337 lb 8 oz) Body mass index is 45.77 kg/(m2). Resting Metabolic Rate: 2303 NUTRITION ASSESSMENT: Malnutrition Screening Significant unintentional weight loss? No Eating less than 75% of usual intake for more than 2 weeks? No RECOMMENDED MALNUTRITION DIAGNOSIS: NO MALNUTRITION IDENTIFIED Educational materials provided: none this visit READINESS TO LEARN Cognitive ability: Alert and oriented Motivation to learn: Interested Family support: Unable to assess - Family not present Instruction provided to: Patient Patient learns best by: Individual Instruction Factors affecting learning: None Physical limitations affecting learning: None Likelihood of Adherence: Moderate Patient presents for follow up MNT relates to weight control. Diabetes, HTN, dyslipidemia, CAD, CHF, dysphagia, GERD. ??Is in assisted living, meals provided by facility, limited control over foods to choose. Foten high fat and high calorie, fried foods. Has been trying to be more active. Note 1.5 pounds lost since last visit. States was lower but stopped watching and has some regain. Nutrition Diagnosis: Overweight Obesity, related to; excess energy intake and physical inactivity, as evidenced by BMI above normative standard for age and gender. Nutrition Intervention 11/29/2017: modify type and amount of food or beverage 1. All beverages calorie free and sugar free, no juice 2. Use hunger fullness scale, focus on smaller portions, stop at a 6-7. 3.increase exercise to at least 20 min most days, try for activity 5 min every hour. 4. Continue to make best choice possible for meals out of what is served. Nutrition Monitoring AND Evaluation: weight loss Criteria: patient update Need for Follow up: 2 mnths Referred/Supervised by: Carolyn/Azul DESOUZAT Billing Type: Re-assess/15 min 2 units SIGNATURE: Rebecca Sanders MS RD LD PATIENT NAME: Mayco Kendrick DATE: November 29, 2017 TIME: 11:01 AM Rebecca Sanders MS RD LD 11/29/2017 11:20 AM Signed 1. All beverages calorie free and sugar free, no juice 2. Use hunger fullness scale, focus on smaller portions, stop at a 6-7. 3.increase exercise to at least 20 min most days, try for activity 5 min every hour. 4. Continue to make best choice possible for meals out of what is served. Other instructions from your clinician: 1. All beverages calorie free and sugar free, no juice 2. Use hunger fullness scale, focus on smaller portions, stop at a 6-7. 3.increase exercise to at least 20 min most days, try for activity 5 min every hour. 4. Continue to make best choice possible for meals out of what is served. Primary Visit Diagnosis:Type 2 diabetes mellitus with other diabetic kidney complication (HCC) [E11.29] Other Visit Diagnoses:Morbid obesity, unspecified obesity type (HCC) [E66.01] Dietary counseling [Z71.3] During your visit today, we recorded the following information about you: Weight Height 153.1 kg 1.829 m Allergies As of Date: 11/29/2017 Noted Allergy Reaction LISINOPRIL 05/31/2014 14 - Other: See Comments Comments: Metallic taste in mouth. SERTRALINE 05/02/2013 8 - GI Upset Date Reviewed: 11/29/2017 Reviewed by: Rebecca Sanders - Fully Assessed Prescriptions as of 11/29/2017 Sig: SUCRALFATE 1 GRAM TABLET Take 1 tablet by mouth three * PANTOPRAZOLE 40 MG TABLET,DEL* Take 1 tablet by mouth daily * FUROSEMIDE 80 MG TABLET One PO daily in AM FUROSEMIDE 40 MG TABLET One PO daily at dinner OXYBUTYNIN CHLORIDE 5 MG TABL* Take 1 tablet by mouth three * GLIMEPIRIDE 1 MG TABLET Take 1 tablet by mouth daily * METOPROLOL TARTRATE 25 MG TAB* Take 1 tablet by mouth every * KETOCONAZOLE 2 % SHAMPOO Use as a body wash, most spec* TRIAMCINOLONE ACETONIDE 0.1 %* Apply to itching rash on ches* ATORVASTATIN 80 MG TABLET Take 1 tablet by mouth once d* TAMSULOSIN 0.4 MG CAPSULE Take 1 capsule by mouth every* METFORMIN 500 MG TABLET Take 1 tablet by mouth three * NITROGLYCERIN 0.4 MG SUBLINGU* Take 1 tablet by mouth as nee* TRAZODONE 50 MG TABLET Take 1 tablet by mouth at bed* RANITIDINE 300 MG TABLET Take with evening meal. MAGNESIUM OXIDE 400 MG TABLET Take 1 tablet by mouth once d* DOCUSATE SODIUM 100 MG CAPSULE Take 1 capsule by mouth once * COMPOUNDED PRESCRIPTION Please eval and fix any issue* BISACODYL 10 MG RECTAL SUPPOS* 1 Suppository by RECTAL route* POLYETHYLENE GLYCOL 3350 17 G* 17 g up to twice daily as nee* ASPIRIN 81 MG TABLET,DELAYED * Take 1 tablet by mouth once d* COMPOUNDED PRESCRIPTION Glucometer high/low test solu* COMPOUNDED PRESCRIPTION Please perform a nocturnal ox* LANCETS Test glucose twice weekly. Dx* BLOOD SUGAR DIAGNOSTIC STRIPS testing twice weekly dx 250* BLOOD-GLUCOSE METER, DRUM-TYP* Test fasting blood sugar 1-2 * BLOOD-GLUCOSE METER KIT 1 Each as needed. One Touch M* BLOOD GLUCOSE CONTROL, NORMAL* Test controls as needed. * COMPOUNDED PRESCRIPTION BIPAP setting: IPAP 22cm wate* Encounter Status:Closed by REBECCA CARRILLO MS, RD on 11/29/17 12 LEAD ELECTROCARDIOGRAM Observed: 11/23/2017 Status: F Source: [place] 1:38 PM [facility] REPOSITORY [facility] Cardiovascular Services [address] [place] [address] 12 Lead EKG 11/20/17 0215 MR#: [id number] Acct: [id number] Name: MAYCO KENDRICK Rep #: [id number] : 1940 77 From: Pierre Mercado MD Attending Dr: David Cox MD Status: DIS ALFREDO Ordering Dr: Magdalena Grace Date: 11/20/17 Location: [facility] Sex: M C Admitted: 11/19/17 Test Reason : CP Blood Pressure : / mmHG Vent. Rate : 067 BPM Atrial Rate : 067 BPM P-R Int : 000 ms QRS Dur : 168 ms QT Int : 474 ms P-R-T Axes : 000 -51 120 degrees QTc Int : 500 ms Ventricular-paced rhythm Abnormal ECG When compared with ECG of 19-NOV-2017 14:24, MANUAL COMPARISON REQUIRED, DATA IS UNCONFIRMED Confirmed by ROGELIO MEEK, PIERRE ([id number]), [place] ([id number]) on 11/23/2017 1:37:56 PM Referred By: KAYLA Confirmed By:PIERRE MERCADO MD 11/23/17 1338 Date Pierre Mercado MD CC: Magdalena Grace; Bertrand Leon MD; David Cox MD Signed 12 LEAD ELECTROCARDIOGRAM Observed: 11/22/2017 Status: F Source: [place]ANK[place] 1:31 PM [facility] REPOSITORY [facility] Cardiovascular Services [address] [place] [address] 12 Lead EKG 11/19/17 1212 MR#: [id number] Acct: [id number] Name: MAYCO KENDRICK Rep #: [id number] : 1940 77 From: Pierre Mercado MD Attending Dr: David Cox MD Status: DIS ALFREDO Ordering Dr: Liliana Helms MD Date: 11/19/17 Location: [facility] Sex: M C Admitted: 11/19/17 Test Reason : CP Blood Pressure : / mmHG Vent. Rate : 069 BPM Atrial Rate : 071 BPM P-R Int : 206 ms QRS Dur : 198 ms QT Int : 502 ms P-R-T Axes : 000 -65 106 degrees QTc Int : 537 ms AV dual-paced rhythm Abnormal ECG Confirmed by PIERRE MERCADO MD ([id number]), [place] ([id number]) on 11/22/2017 1:30:52 PM Referred By: ANALIA/KATINA Confirmed By:PIERRE MERCADO MD 11/22/17 1330 Date Pierre Mercado MD CC: Bertrand Leon MD; Liliana Helms MD; David Cox MD Signed 12 LEAD ELECTROCARDIOGRAM Observed: 11/22/2017 Status: F Source: [place] 1:31 PM [facility] REPOSITORY [facility] Cardiovascular Services [address] [place] [id number] 12 Lead EKG 11/19/17 1424 MR#: [id number] Acct: [id number] Name: MAYCO KENDRICK Rep #: [id number] : 1940 77 From: Pierre Mercado MD Attending Dr: David Cox MD Status: DIS ALFREDO Ordering Dr: Liliana Helms MD Date: 11/19/17 Location: [facility] Sex: M C Admitted: 11/19/17 Test Reason : REPEAT-CP Blood Pressure : / mmHG Vent. Rate : 066 BPM Atrial Rate : 357 BPM P-R Int : 242 ms QRS Dur : 160 ms QT Int : 480 ms P-R-T Axes : 000 -68 111 degrees QTc Int : 503 ms AV dual-paced rhythm with prolonged AV conduction Abnormal ECG Confirmed by PIERRE MERCADO MD ([id number]), [place] ([id number]) on 11/22/2017 1:31:12 PM Referred By: ANALIA Confirmed By:PIERRE MERCADO MD 11/22/17 1331 Date Pierre Mercado MD CC: Bertrand Leon MD; Liliana Helms MD; David Cox MD Signed DISCHARGE SUMMARY Observed: 11/20/2017 Status: F Source: BIANK[place] 4:29 PM [facility] REPOSITORY [facility] Medical Records Department [address] [place] [address] Discharge Summary 11/20/17 1215 MR#: [id number] Acct: [id number] Name: MAYCO KENDRICK Rep #: [id number] : 1940 77 From: Holli Moore CARTRIDGE ASSEMBLERKayaC PCP: Bertrand Leon MD Status: ADM ALFREDO Y [id number] <Holli Moore - Last Filed: 11/20/17 12:26> Discharge Date and Diagnosis Date of Admission: 11/19/17 Date of Discharge: 11/20/17 - Primary Discharge Diagnosis 1. Chest pain- ACS ruled out. 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 Myocardium. Electronically Signed: Didier Spangler DO at 11:41 EDT , Service support , Operations: None Procedures: Stress test Summary of Care Provided: The patient is a 77 year old M admitted 11/19/2017 due to chest pressure and right arm pain. Patient follows with Dr. Roblero, F cardiology. He has a history of double coronary artery bypass approximately 20 years ago, paroxysmal atrial fibrillation, status post cardiac pacemaker, CHF, obstructive sleep apnea, hyperlipidemia, hypertension, type 2 diabetes mellitus, chronic venous insufficiency, prostate cancer, asthma, BPH, morbid obesity, GERD. Chest x-ray showed no infiltrate, myocardium. EKG paced rhythm without evidence of ischemia. Troponin negative 3. Patient underwent nuclear stress test which was negative for ischemia. Vitals have remained stable. Patient's chest pressure has improved although he complains of mild chest pressure intermittently, not associated with exertion. Patient is on a multidrug regimen for GERD. He may require additional adjustment of this medication. Patient states he has a baseline chest discomfort 1 out of 10. ACS was ruled out. Patient will follow up with primary care physician and cardiology in 1 week. General: Alert, Oriented x3, Cooperative, No apparent distress HEENT: Atraumatic, PERRLA, EOMI, Normocephalic Neck: Supple, No JVD, Negative Carotid Bruits Lungs: Clear to auscultation, Diminished Cardiovascular: Regular rate, Regular Rhythm, Normal S1, Normal S2, No murmurs Abdomen: Bowel Sounds Present, Soft, Non Tender, Non-Distended, Obese Extremities: No clubbing, No cyanosis, Capillary Refill Less than 3 Seconds, Edema - +1 BLLE Skin: No rashes, No breakdown Musculoskeletal: No Tenderness to Palpation of Joints or Extremities Neurological: Cranial nerves II-XII grossly intact, Neuro grossly intact Psych/Mental Status: Normal Affect, Appropriate Patient seen and examined prior to discharge. Physical assessment as noted above. Patient is stable for discharge home with recommendations as noted above. This patient was seen by SEYMOUR Guaman under the supervision of Dr. Cox. Discharge Diet: Low fat/ Low Cholesterol, Carb Control Diet Discharge Activity: Return to Normal Activity Call your doctor if you observe: Shortness of breath, Dizziness, Fainting spells, Chest pain, Increased palpitations (irregular heartbeat) Home Medications: Medications to take at Discharge Aspirin [Aspirin, Baby] 81 mg PO DAILY 06/09/13 Metformin HCl [Glucophage] 500 mg PO TIDCM 06/09/13 Nitroglycerin [Nitrostat] 0.4 mg SUBLINGUAL Q5M PRN 06/09/13 Tamsulosin HCl [Flomax] 0.4 mg PO QHS 06/09/13 traZODone [Desyrel] 50 mg PO QHS PRN PRN 07/26/14 Magnesium Oxide [Mag-Ox 400] 400 mg PO DAILY 10/07/15 Atorvastatin Calcium [Lipitor] 80 mg PO QHS 10/30/15 Polyethylene Glycol 3350 [Miralax] 17 gm PO BID PRN PRN 10/30/15 Oxybutynin [Ditropan] 5 mg PO TID 01/27/16 Metoprolol Tartrate [Lopressor (beta emily)] 25 mg PO BID 05/08/16 Acetaminophen [Mapap] 1,000 mg PO Q8H PRN PRN 10/17/16 Furosemide [Lasix] 40 mg PO DINNER 10/17/16 Furosemide [Lasix] 80 mg PO DAILY 10/17/16 Glimepiride [Amaryl] 1 mg PO DAILY 05/03/17 Ranitidine [Zantac] 300 mg PO DAILY 05/03/17 Docusate Sodium [Colace] 100 mg PO DAILY 11/19/17 Guaifenesin/Dextromethorphan [Robitussin Cough-Chest Dm Liq] 5 ml PO PRN PRN 11/19/17 Hydrocodone Bitart/Apap 5-325 [[place] 5/325] 1 tablet PO Q6H PRN PRN 11/19/17 Pantoprazole Sodium [Protonix] 40 mg PO DAILY 11/19/17 Rivaroxaban [Xarelto] 20 mg PO DAILY 11/19/17 Sucralfate [Carafate] 1 gm PO TID 11/19/17 Primary Care Physician: Bertrand Leon MD [Primary Care Provider] - Please follow up with your Primary Care Physician in: 1 Week Please Follow Up With: Braulio Roblero MD When: 1 Week Disposition: Asstd Living/Non-Skill NH Minutes spent on discharge:: 35 Patient Condition:: Stable Medical Necessity - Tobacco Use Smoking Status: Never smoker Tobacco Use: Non-smoker Meaningful Use Info Meaningful Use Diagnoses (Choose all that apply): None applicable <David Cox - Last Filed: 11/20/17 16:29> Discharge Date and Diagnosis 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 (Chronic) 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 I have independently interviewed and examined the patient and reviewed pertinent history, examination findings, laboratory and plan of management. I have reviewed the note and agree with the documented findings with the few additional points. In brief, patient is admitted for chest pain. Patient has history of two-vessel CABG about 20 years ago. Stress test was negative. Patient is being discharged to assisted living center. I have discussed my assessment with Holli LILLY and orders have been reviewed. [] Code Visit OBSV E AND M: [id number] Observation care discharge 11/20/17 1227 <Electronically signed by Holli AHUJA> Date Holli AHUJA 11/20/17 3851<Electronically signed by David Cox MD> Cosigner Signature (if applicable): Date David Cox MD CC: CARTRIDGE ASSEMBLER-Bobbi Moore; Bertrand Leon MD; Braulio Roblero MD; David Cox MD Signed DISCHARGE INSTRUCTION Observed: 11/20/2017 Status: F Source: [place] 12:15 PM [facility] REPOSITORY [facility] Medical Records Department [address] [place] [address] Instructions for Home/Discharge Instructions 11/20/17 1213 MR#: [id number] Acct: [id number] Name: MAYCO KENDRICK Rep #: [id number] : 1940 77 From: Holli AHUJA PCP: Bertrand Leon MD Status: ADM ALFREDO You will use the following diet at home:: Calorie/Carbohydrate Controlled (specify 1200, 1400, etc), Cardiac Discharge Activity: Return to Normal Activity Call your doctor if you observe: Shortness of breath, Dizziness, Fainting spells, Chest pain, Increased palpitations (irregular heartbeat) Allergies/Adverse Reactions: Allergies lisinopril Allergy (Verified 11/19/17 12:05) Unknown sertraline Allergy (Verified 11/19/17 12:05) Unknown Medications to take at Discharge Aspirin [Aspirin, Baby] 81 mg PO DAILY 06/09/13 Metformin HCl [Glucophage] 500 mg PO TIDCM 06/09/13 Nitroglycerin [Nitrostat] 0.4 mg SUBLINGUAL Q5M PRN 06/09/13 Tamsulosin HCl [Flomax] 0.4 mg PO QHS 06/09/13 traZODone [Desyrel] 50 mg PO QHS PRN PRN 07/26/14 Magnesium Oxide [Mag-Ox 400] 400 mg PO DAILY 10/07/15 Atorvastatin Calcium [Lipitor] 80 mg PO QHS 10/30/15 Polyethylene Glycol 3350 [Miralax] 17 gm PO BID PRN PRN 10/30/15 Oxybutynin [Ditropan] 5 mg PO TID 01/27/16 Metoprolol Tartrate [Lopressor (beta emily)] 25 mg PO BID 05/08/16 Acetaminophen [Mapap] 1,000 mg PO Q8H PRN PRN 10/17/16 Furosemide [Lasix] 40 mg PO DINNER 10/17/16 Furosemide [Lasix] 80 mg PO DAILY 10/17/16 Glimepiride [Amaryl] 1 mg PO DAILY 05/03/17 Ranitidine [Zantac] 300 mg PO DAILY 05/03/17 Docusate Sodium [Colace] 100 mg PO DAILY 11/19/17 Guaifenesin/Dextromethorphan [Robitussin Cough-Chest Dm Liq] 5 ml PO PRN PRN 11/19/17 Hydrocodone Bitart/Apap 5-325 [[place] 5/325] 1 tablet PO Q6H PRN PRN 11/19/17 Pantoprazole Sodium [Protonix] 40 mg PO DAILY 11/19/17 Rivaroxaban [Xarelto] 20 mg PO DAILY 11/19/17 Sucralfate [Carafate] 1 gm PO TID 11/19/17 Primary Care Physician: Bertrand Leon MD [Primary Care Provider] - Please follow up with your Primary Care Physician in: 1 Week Please Follow Up With: Braulio Roblero MD When: 1 Week Proposed Discharge Date: 11/20/17 11/20/17 1215 <Electronically signed by Holli AHUJA> Date Holli AHUJA CC: Bertrand Leon MD BEDSIDE GLUCOSE Collected: 11/20/2017 Status: F Source: [place] 11:22 AM [facility] REPOSITORY TYPE CODE TESTS RESULT OUT OF REFERENCE UNITS RANGE LAB L501.080 70-110 mg/dL High BEDSIDE GLU 177 Result Comment: MANAGEMENT OF PATIENT CARE PER NURSING PROTOCOL Performed By: #### L501.080 #### [facility] Point of Care [address] [place] [address] STRESS REPORT Observed: 11/20/2017 Status: F Source: BIANK[place] 11:00 AM [facility] REPOSITORY [facility] Cardiovascular Services [address] [place] [address] MR#: [id number] Acct: [id number] Name: MACYO KENDRICK Rep #: [id number] : 1940 From: Pierre Mercado MD Primary Care: Bertrand Leon MD Status: ADM ALFREDO Ordering Dr: Sex: M C Stress Test Report Pharmacologic myocardial perfusion stress test. 77-year-old man with a history of chest pain. Stress protocol: Resting EKG demonstrates atrial fibrillation with a left bundle branch block pattern rate of 71 bpm is noted. 0.4 mg regadenoson was infused per usual protocol followed by rapid intravenous saline flush injection continuous EKG monitoring was performed. Heart rate attained was 85 bpm which was 59% of the maximum predicted heart rate. The maximum workload attained was 1 metabolic equivalent. At rest nonspecific ST-T wave changes were noted left bundle branch block pattern was present. Pacemaker spikes were also noted. At peak infusion nonspecific ST-T wave changes were also noted consistent with a left bundle branch block pattern. The resting blood pressure was 132/80 with a final blood pressure 118/62. Myocardial perfusion protocol. 14.8 mCi of technetium 99m sestamibi was injected at rest. 0.4 mg of regadenoson was infused per usual protocol peak infusion 45.0 mCi of technetium 99m sestamibi was injected stress images were obtained stress and rest images were reconstructed and compared in the short axis vertical long and horizontal long axis. Gated images were also obtained pre- Perfusion SPECT analysis: Review of the stress images demonstrate normal uptake of tracer noted in all areas of the myocardium. The resting images similarly demonstrate normal uptake of tracer noted in all areas of the myocardium. There is some GI attenuation artifact noted. No areas of reversibility are noted suggest ischemia. Gated SPECT analysis:. Gated ejection fraction is 47%. Conclusion: Normal pharmacologic myocardial perfusion stress test. Mild cardiomyopathy present. 11/20/17 1100 <Electronically signed by Pierre Mercado MD> Date Pierre Mercado MD CC: Bertrand Leon MD; David Cox MD Date Dictated: 11/20/17 105 Date Transcribed: 11/20/17 105 Librarian Head: [place] Signed BEDSIDE GLUCOSE Collected: 11/20/2017 Status: F Source: [place] 6:47 AM [facility] REPOSITORY TYPE CODE TESTS RESULT OUT OF REFERENCE UNITS RANGE LAB L501.080 70-110 mg/dL High BEDSIDE GLU 133 Result Comment: MANAGEMENT OF PATIENT CARE PER NURSING PROTOCOL Performed By: #### L501.080 #### [facility] Point of Care [address] [place], [place] [id number] CBC-COMPLETE BLOOD CNT Collected: 11/20/2017 Status: F Source: [place] NO DIFF 3:19 AM [facility] REPOSITORY TYPE CODE TESTS RESULT OUT OF RANGE REFERENCE UNITS LAB L100.1000 4.4-11.0 K/mm3 Normal WBC 7.7 LAB L100.1200 4.6-6.2 M/mm3 Low RBC 4.59 LAB L100.1300 13.0-16.5 g/dl Normal HGB 13.7 LAB L100.1400 40-54 % Normal HCT 41.4 LAB L100.1500 80-94 fL Normal MCV 90.2 LAB L100.1600 27.0-32.0 pg Normal MCH 29.8 LAB L100.1700 32-36 g/gl Normal MCHC 33.1 LAB L100.1810 11.6-14.6 % High RDW CV 14.7 LAB L100.1820 35.1-43.9 fl High RDW SD 47.8 LAB L100.1900 150-450 K/mm3 Normal PLT 222 LAB L100.2000 6.2-12.0 fl Normal MPV 9.7 Performed By: #### L100.0500 #### [facility] [address] [facility] [place], [address] PROTHROMBIN TIME W/INR Collected: 11/20/2017 Status: F Source: [place] 3:19 AM [facility] REPOSITORY TYPE CODE TESTS RESULT OUT OF RANGE REFERENCE UNITS LAB L300.4150 11.7-14.9 SECONDS High PROTIME 16.5 LAB L300.4200 Normal INR 1.3 Performed By: #### L300.3900, L300.4310 #### [facility] [address] [place], [place], [id number] PARTIAL THROMBOPLAST Collected: 11/20/2017 Status: F Source: [place] TIME 3:19 AM [facility] REPOSITORY TYPE CODE TESTS RESULT OUT OF REFERENCE UNITS RANGE LAB L300.4310 24.1-36.2 Seconds High PTT 37.7 Performed By: #### L300.3900, L300.4310 #### [facility] [address] [place], [place], [id number] BASIC METABOLIC Collected: 11/20/2017 Status: F Source: [place] PROFILE (BMP) 3:19 AM [facility] REPOSITORY TYPE CODE TESTS RESULT OUT OF RANGE REFERENCE UNITS LAB L501.0100 74-106 mg/dL High GLU 108 Result Comment: Fasting Glucose result from 100 to 125 mg/dL suggests IMPAIRED HOMEOSTASIS per A.D.A. criteria. Please note revised GLUCOSE reference range effective 2017. LAB L501.1000 7-18 mg/dL High BUN 19 LAB L501.1100 0.70-1.30 mg/dL Normal CREAT,SERUM 0.85 Result Comment: The validity of the calculated GFR AND GFRAA in patients over 70 years has not been determined. Clinical correlation is essential. LAB L501.1110 >60 mL/min Normal EST GFR 94 Result Comment: Non- GFR Calc LAB L501.1115 >60 mL/min Normal EST GFR - AA 113 Result Comment: GFR Calc LAB L501.1255 ml/min Normal Estimated CRCL 81.15 LAB L501.1300 10-20 RATIO High BUN/CRE 22.5 LAB L501.2200 8.5-10 mg/dL Low .1 CA 8.2 LAB L501.5300 136-14 mmol/L Normal 5 NA 143 LAB L501.5600 3.5-5. mmol/L Low 1 K 3.4 LAB L501.5900 98-107 mmol/L Normal CL 104 LAB L501.6100 21.0-3 mmol/L Normal 2.0 CO2 29.0 LAB L501.6200 5-15 Normal GAP 10 Performed By: #### L500.2500 #### [facility] [address] [place], [place], [address] TROPONIN-I Collected: 11/20/2017 Status: F Source: KREMLIN 3:19 AM [facility] REPOSITORY Order Comment: 'TROP' Serial specimen #1, #2, #3, or #4: 4 TYPE CODE TESTS RESULT OUT OF RANGE REFERENCE UNITS LAB L501.4010 <0.06 ng/mL Normal < 0.02 TROPONIN-I Result Comment: TROPONIN-I EXPECTED VALUES <0.05 NEGATIVE 0.06 - 0.59 AT RISK OF MT > OR = 0.60 SUGGEST MT Performed By: #### L501.4010 #### [facility] [address] [place], [address] CHEST PA AND LATERAL Observed: 11/20/2017 Status: F Source: KREMLIN 12:00 AM [facility] REPOSITORY [facility] Imaging Services [address] [place] [address] Chest PA and Lateral MR#: [id number] Acct: [id number] Name: MAYCO KENDRICK Rep #: [id number] : 1940 M 77 From: Didier Spangler PCP: Bertrand Leon MD Status: ADM ALFREDO Study: Chest PA and Lateral Date of Exam: 11/20/17 Exam# [id number] Ordering Dr: Magdalena Grace STUDY: X-RAY CHEST REASON FOR EXAM: Male, 77 years old. Chest pain TECHNIQUE: Frontal and lateral views of the chest. COMPARISON: None. FINDINGS: Right-sided pacemaker. The lungs are clear and expanded. There is no demonstrated pleural abnormality. There is mild cardiac enlargement. Patient status post sternotomy. Normal mediastinum and tj. Normal visualized pulmonary arteries. Normal visualized aortic arch and descending thoracic aorta. Normal visualized thoracic spine. Normal visualized ribs, clavicles, and shoulders. There is no demonstrated abnormality of the visualized soft tissue structures of the upper abdomen. RAD/Chest PA and Lateral IMPRESSION: No infiltrate. Myocardium. Electronically Signed: Didier Spangler DO at 11:41 EDT , Service support , CC: Magdalena Thurston Carolyn MD Librarian Head: Signed TROPONIN-I Collected: 11/19/2017 Status: F Source: BIANKA 9:15 PM [facility] REPOSITORY Order Comment: 'TROP' Serial specimen #1, #2, #3, or #4: 3 TYPE CODE TESTS RESULT OUT OF RANGE REFERENCE UNITS LAB L501.4010 <0.06 ng/mL Normal < 0.02 TROPONIN-I Result Comment: TROPONIN-I EXPECTED VALUES <0.05 NEGATIVE 0.06 - 0.59 AT RISK OF MT > OR = 0.60 SUGGEST MT Performed By: #### L501.4010 #### [facility] [address] [facility] [address] BEDSIDE GLUCOSE Collected: 11/19/2017 Status: F Source: KREMLIN 9:08 PM [facility] REPOSITORY TYPE CODE TESTS RESULT OUT OF REFERENCE UNITS RANGE LAB L501.080 70-110 mg/dL High BEDSIDE GLU 137 Result Comment: MANAGEMENT OF PATIENT CARE PER NURSING PROTOCOL Performed By: #### L501.080 #### [facility] Point of Care [address] [place] [address] BEDSIDE GLUCOSE Collected: 11/19/2017 Status: F Source: BIANKA 5:49 PM [facility] REPOSITORY TYPE CODE TESTS RESULT OUT OF RANGE REFERENCE UNITS LAB L501.080 70-110 mg/dL Normal BEDSIDE GLU 98 Result Comment: MANAGEMENT OF PATIENT CARE PER NURSING PROTOCOL Performed By: #### L501.080 #### [facility] Point of Care [address] [facility] [place] [address] HISTORY AND PHYSICAL Observed: 11/19/2017 Status: F Source: KREMLIN EXAM 5:32 PM [facility] REPOSITORY [facility] Medical Records Department [address] [place] [address] History and Physical 11/19/17 1546 MR#: [id number] Acct: [id number] Name: MAYCO KENDRICK Rep #: [id number] : 1940 77 From: Holli Moore [employer] PCP: Bertrand Leon MD Status: ADM ALFREDO Y Location: [place] [address] ADDENDUM by Magdalena Grace on 11/19/17 at 1732 Code Visit ATTENDING PHYSICIAN NOTE: I have seen and examined the patient independently and agree with the assessment, plan, history per Holli Moore as noted. Chief Complaint: Chest Pain The patient is a 77 y/o M w/ PMHx: PAF, Hx Complete HB s/p Pacemaker Placement, CHF Unclear Type, CAD s/p CABG, HTN, HLD, Morbid Obesity, Diabetes mellitus type II, EDMOND, Chronic BL LE Lymphedema and Chronic Venous Stasis, Asthma, GERD, BPH who presents to the [facility] ED on 11/19/17 w/ history of onset of chest pain the evening prior, noted to have awoken him from sleep, noted to be midsternal with radiation to the right jaw and arm, described as tightness which improved but returned again, worse on day of ED presentation w/ EMS call, administration NG x 1 SL with improvement to baseline chronic 09/01 discomfort. In the ED work-up included AF, HR 60-70s, [place] [address], RR 23, 95% on 2L NC, unremarkable CBC, d-dimer normal when corrected for age, BMP w/ glucose 126, trop < 0.02, EKG paced without acute evidence of ischemia, CXR w/ ? atelectasis/? infiltrate on read/chronic changes (denied recent cough, congestion, dyspnea, afebrile). In the ED patient with recurrent CP, given NG SL x 3 with resolution of discomfort. Labs, Allergies, Home medications, Social Hx, PSurgHx, Family Hx per note below. Admission Review of Systems: CONSTITUTIONAL: No weight loss, fever, chills, weakness or fatigue. HEENT: Eyes: No visual loss, blurred vision, double vision or yellow sclerae. Ears, Nose, Throat: No hearing loss, sneezing, congestion, runny nose or sore throat. SKIN: No rash or itching, lesions, wounds. CARDIOVASCULAR: + chest pain/tightness, no palpitations, edema, orthopnea, syncopal events. RESPIRATORY: No shortness of breath, cough or sputum, wheezing, hemoptysis. GASTROINTESTINAL: No anorexia, nausea, vomiting or diarrhea, abdominal pain, melena, BRBPR. GENITOURINARY: No dysuria, frequency, urgency or retention. NEUROLOGICAL: No headache, dizziness, syncope, paralysis, ataxia, numbness or tingling in the extremities, focal weakness, change in bowel or bladder control, seizure. MUSCULOSKELETAL: + muscle, back pain, joint pain or stiffness. HEMATOLOGIC: + anemia, bleeding or bruising. LYMPHATICS: No enlarged nodes. No history of splenectomy. PSYCHIATRIC: No history of depression or anxiety. ENDOCRINOLOGIC: No reports of sweating, cold or heat intolerance. No polyuria or polydipsia. ALLERGIES: + history of asthma, hives, eczema or rhinitis. Admission VS: As noted below. Physical Examination: General: awake, alert, oriented x 3 and cooperative, seated upright in the ED bed in no apparent distress. Skin: normal color, turgor, no icterus, cyanosis. HEENT: AT/NC, EOMI, PERRLA, MMM, no carotid bruits or JVD noted. Lungs: Diminished BS bases, mild effort, no rales, ronchi or wheezing. Heart: Regular rate and rhythm (paced); no gallop, rub audible, unable to reproduce any chest pain with palpation. Abdomen: soft, morbidly obese, NTTP, ND, normal BS, no HSM; however, habitus makes examination difficult. Extremities: no cyanosis, clubbing, BL LE ankle to distal casillas edema, chronic. Neurological: patient awake, alert, oriented x 3; cognitive function intact; pupils equally reactive to light and accomodation; cranial nerves II-XII grossly normal, moving all 4 extremities, no focal deficits, strength moderately globally decreased secondary to acute presentation. Psychiatric: affect appears normal, no acute evidence of depressive or anxiety feelings. Assessment and Plan: The patient is a 77 y/o M w/ PMHx: PAF, Hx Complete HB s/p Pacemaker Placement, CHF Unclear Type, CAD s/p CABG, HTN, HLD, Morbid Obesity, Diabetes mellitus type II, EDMOND, Chronic BL LE Lymphedema and Chronic Venous Stasis, Asthma, GERD, BPH who presents to the [facility] ED on 11/19/17 w/ history of onset of chest pain the evening prior, noted to have awoken him from sleep, noted to be midsternal with radiation to the right jaw and arm, described as tightness which improved but returned again, worse on day of ED presentation w/ EMS call, administration NG x 1 SL with improvement to baseline chronic 09/01 discomfort. (1) Chest Pain: In the ED work-up included [place], [place] 60-[place] [address], RR 23, 95% on 2L NC, unremarkable CBC, d-dimer normal when corrected for age, BMP w/ glucose 126, trop < 0.02, EKG paced without acute evidence of ischemia, CXR w/ ? atelectasis/? infiltrate on read/chronic changes (denied recent cough, congestion, dyspnea, afebrile). Will admit to PCU, place on a monitored bed to assure no acute myocardial infarction with serial cardiac enzymes and EKGs. Patient is unable to perform exercise thus will proceed with AM nuclear stress testing. Given abnormal CXR findings will plan repeat in AM PA and lateral. NG, morphine. FLP in AM. Mag pending. Additional Co-morbidities: PAF: Maintain on xarelto, continue metoprolol. CAD: s/p CABG. Following w/ Dr. Roblero. Will continue home regimen xarelto, asa, statin, BB. ? CHF, Unclear type: Maintain on asa, xarelto, statin, BB, lasix, not on ACEI with noted allergy. Hx Complete HB: s/p pacemaker. Hypertension: Continue home regimen including Lasix, metoprolol, PRN hydralazine. Hyperlipidemia: Continue home statin regimen. AM FLP. Diabetes mellitus type II: Hold oral home regimen, ADA diet until NPO status, accu checks w/ ISS. Morbid Obesity: Weight loss and lifestyle changes encouraged, nutrition consulted. GERD: Continue home famotidine, carafate. BPH: Continue home flomax regimen. OBSV E AND M: 14162 Initial observation care L3 11/19/17 8132 <Electronically signed by Magdalena Grace > Date Magdalena Grace cc: SEYMOUR Moore; Magdalena Grace; Bertrand Leon MD * Signed 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 Status: Chronic (6) Atherosclerosis of coronary artery of [place] heart without angina pectoris Status: Chronic (7) Presence of cardiac pacemaker Status: Chronic (8) Junctional escape rhythm Status: Chronic (9) CHF (congestive heart failure) Status: Chronic Qualifiers: (10) Ileus following gastrointestinal surgery Status: Resolved (11) Obstructive sleep apnea Status: Chronic (12) HLD (hyperlipidemia) Status: Chronic Qualifiers: (13) DM2 (diabetes mellitus, type 2) Status: Chronic Qualifiers: (14) Benign essential HTN Status: Chronic (15) Chronic venous insufficiency Status: Chronic (16) Swelling of lower extremity Status: Chronic (17) Edema of both legs Status: Chronic (18) Morbid obesity Status: Chronic (19) Prostate cancer Status: Chronic (20) Venous stasis dermatitis of both lower extremities Status: Chronic (21) Status post cholecystectomy Status: Chronic (22) Cholecystitis Status: Chronic (23) Asthma Status: Chronic History of Present Illness Date of Admission: 11/19/17 Chief Complaint: Chest pressure, right arm pain. The patient is a 77 year old M who presents to the emergency room with chest pressure/pain. Patient states around 230 this morning he was awoken from sleep with right arm pain which radiated to his neck. This lasted approximately 15-20 minutes and resolved. Patient states he went back to sleep at that time. When he awoke in the morning he again had right arm pain with radiation to neck along with chest pressure, shortness of breath and diaphoresis. Patient follows with Dr. Roblero, [facility] cardiology. He has a history of double coronary artery bypass approximately 20 years ago, paroxysmal atrial fibrillation, status post cardiac pacemaker, CHF, obstructive sleep apnea, hyperlipidemia, hypertension, type 2 diabetes mellitus, chronic venous insufficiency, prostate cancer, asthma, BPH, morbid obesity, GERD. Patient received nitro and morphine in the ER and currently complains of chest pain 4 out of 10. He denies other associated complaints. 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) CHF (congestive heart failure) (Chronic) Obstructive sleep apnea (Chronic) HLD (hyperlipidemia) (Chronic) DM2 (diabetes mellitus, type 2) (Chronic) Benign essential HTN (Chronic) Chronic venous insufficiency (Chronic) Swelling of lower extremity (Chronic) Edema of both legs (Chronic) Morbid obesity (Chronic) Prostate cancer (Chronic) Venous stasis dermatitis of both lower extremities (Chronic) Status post cholecystectomy (Chronic) Cholecystitis (Chronic) Asthma (Chronic) Allergies lisinopril Allergy (Verified 11/19/17 12:05) Unknown sertraline Allergy (Verified 11/19/17 12:05) Unknown Home Medications: Ambulatory Orders Medication Instructions Recorded Surgical History: coronary bypass surgery - 1998, total hip arthroplasty - Bilateral, - - Open cholecystectomy - September 2015. Open reduction and internal fixation of a right hip fracture. Psychiatric History: No pertinent psych hx Lives: - - Assisted-living Smoking Status: Never smoker Tobacco Use: Non-smoker Alcohol: Occasional - *Family History Maternal History Items: Cancer - Lung, - Paternal History Items: Heart Disease Review of Systems Constitutional: Denies: Chills, Fever, Weight Change HEENT: Denies: Head Aches, Sinus Congestion, Sinus Drainage Cardiovascular: Reports: Chest Pain, Chest Pressure. Denies: Palpitations, Syncope Respiratory: Denies: Cough, Shortness of breath at rest, Sputum production Gastrointestinal: Denies: Abdominal Pain, Nausea, Vomiting Genitourinary: Denies: Dysuria Musculoskeletal: Denies: Joint Pain, Joint Tenderness Skin: Denies: Rash, Wounds Neurological: Denies: Numbness, Tingling, Focal weakness Psychiatric: Denies: Anxiety, Depression, Homicidal Ideations, Suicidal Ideations Hematologic/ Lymphatic: Denies: Easy Bruising, Easy Bleeding VTE Information - Inpt Only VTE Present on Admission: No VTE Mechan Device Prophylaxis: Knee High LEO Hose VTE Pharm Prophylaxis ordered?: Yes - Physical Exam General: Alert, Oriented x3, Cooperative, No apparent distress HEENT: Atraumatic, PERRLA, EOMI, Normocephalic Neck: Supple, No JVD, Negative Carotid Bruits Lungs: Clear to auscultation, Diminished Cardiovascular: Regular rate, Regular Rhythm, Normal S1, Normal S2, No murmurs Abdomen: Bowel Sounds Present, Soft, Non Tender, Non-Distended, Obese Extremities: No clubbing, No cyanosis, Capillary Refill Less than 3 Seconds, Edema - +1 BLLE Skin: No rashes, No breakdown Musculoskeletal: No Tenderness to Palpation of Joints or Extremities Neurological: Cranial nerves II-XII grossly intact, Neuro grossly intact Psych/Mental Status: Normal Affect, Appropriate Vital Signs Temp Pulse Resp BP Pulse Ox 98.3 F 72 14 126/44 H 92 11/19/17 12:06 11/19/17 15:04 11/19/17 15:04 11/19/17 15:04 11/19/17 15:04 Assessment/Plan 1. Chest pain-EKG in ER shows paced rhythm. Chest x-ray shows heterogeneous opacities and left lung volume loss, unchanged from prior study. Troponin negative 1. Cycle enzymes. Repeat EKG in a.m. Obtain nuclear stress test tomorrow morning. Morphine and nitro as needed for pain. 2. CAD-status post double coronary artery bypass. Follows with Dr. Roblero, [facility]. Continue aspirin, statin, beta-emily, Xarelto. 3. Paroxysmal atrial fibrillation-currently paced rhythm. Continue Xarelto. 4. Status post pacemaker-recent pacemaker interrogation 10/26/2017. 5. Obstructive sleep apnea continue BiPAP at bedtime with supplemental oxygen. 6. CHF-presumed diastolic. No evidence of acute exacerbation. Continue home Lasix regimen. 7. Type 2 diabetes mellitus-hold home oral regimen. Accu- Cheks before meals at bedtime with sliding scale insulin. 8. Hyperlipidemia-continue statin. 9. Hypertension-stable, continue current regimen. 10. Chronic venous insufficiency-continue knee-high LEO hose. 11. Chronic asthma-no acute exacerbation. Albuterol aerosols as needed. 12. BPH-continue home Flomax regimen. 13. GERD-famotidine. 14. Morbid obesity-encouraged diet and lifestyle modifications. Nutrition consult. DVT prophylaxis-Xarelto. This patient was seen by SEYMOUR Guaman under the supervision of Dr. Grace. 11/19/17 1600 <Electronically signed by Holli AHUJA> Date Holli AHUJA 11/19/17 1717<Electronically signed by Magdalena Grace > Cosigner Signature: Date (if applicable) Magdalena Grace CC: SEYMOUR Moore; Magdalena Grace; Bertrand Leon MD Signed EMERGENCY DEPARTMENT Observed: 11/19/2017 Status: F Source: BIANKA SUMMARY 4:04 PM [facility] REPOSITORY [facility] Medical Records Department [address] [place] [address] Emergency Department Summary 11/19/17 1505 MR#: [id number] Acct: [id number] Name: MAYCO KENDRICK Rep #: [id number] : 1940 77 From: Liliana Helms MD PCP: Bertrand Leon MD Status: ADM ALFREDO - ER Visit Summary Date of Service: 11/19/17 Chief Complaint: Chest pain History of Present Illness: The patient is a 77 M who reports chest tightness that started last evening. He points to the center portion of his chest and states it radiates toward his right shoulder and up the right side of his neck. He did report getting sweaty with it but not short of breath. He recently had his Xarelto held because he was coughing up some blood. He states that occurs rather frequently. He restarted his Xarelto on November 17. She was given aspirin one sublingual nitro with EMS. On arrival here patient states his pain is down to a 1 and this is his normal baseline. Past history significant for coronary disease, diabetes, hypertension, high cholesterol, CHF, paroxysmal A. fib, third-degree block. Patient has a pacemaker. He is also had cardiac stents and double bypass surgery. Physical Examination: Blood pressure is 125/68, temperature 98.3, heart rate 59, respiratory rate 20, pulse ox 90% on room air. Patient sitting upright in bed no acute distress. He is alert and talkative. Head and neck examination is unremarkable. Heart is regular rate and rhythm. Lung sounds are diminished at the bases. Abdomen is soft nontender. Lower extremity examination reveals 1+ bilateral edema that is symmetric. Test Results: EKG is paced at 69. It is unchanged compared to prior study. Portable chest x-ray reveals left greater than right heterogeneous opacities and left lung volume loss. This is grossly unchanged compared to prior study. CBC and chemistry studies are unremarkable. Troponin is less than 0.02. D-dimer 0.72 which is within the normal range when age adjustment is performed. Emergency Department Course and Treatment: Patient had recurrent pain while in the emergency room. He was rating his pain at a 5 out of 10. Repeat EKG was obtained and is unchanged. He was given nitroglycerin 3 with no significant improvement, however the patient states the pain is moving around in his chest. It may be on the right side and then moved to the left side and then back to right side. He is ordered a small dose of morphine at this time. Due to his cardiac history, patient will be admitted for further evaluation. Treatment Plan: [] Disposition: Admit Impression: Chest pain This note was generated with Cell[employer] dictation software. It may contain incorrect words, spelling, and punctuation that were not noted in review of the chart prior to signing ED Disposition - Plan for ED Patient: Chief Complaint: Chest Pain Referrals: Bertrand Leon MD [Primary Care Provider] - What to do if you have Problems For any increased pain, shortness of breath, bleeding, nausea or vomiting, chest pain, or any unexpected problems, contact your Primary Care Provider. Call [phone] ([phone]) or report to the closest Emergency Room. Call 911 if necessary. 11/19/17 1604 <Electronically signed by Liliana Helms MD> Date Liliana Helms MD Cosigner Signature (If Indicated): Date CC: Bertrand Leon MD D-DIMER QUANTITATIVE Collected: 11/19/2017 Status: F Source: BIANKA (DVT/PE) 1:20 PM [facility] REPOSITORY Order Comment: REDRAW. PREVIOUS SPECIMEN REJECTED DUE TO HEMOLYSIS. 11/19/17 1310 Jaimee Kahn. CRITICAL VALUE VERIFIED. CALLED TO DR. HELMS 11/19/17 1435 Jaimee Kahn. RESULTS READ BACK BY SAME . TYPE CODE TESTS RESULT OUT OF RANGE REFERENCE UNITS LAB L300.8000 0.27-0.49 FEU/ug/m High alert D-DIMER 0.72 QUANT Result Comment: D-Dimer ELEVATED (>0.49): Additional studies and clinical assessments are indicated to conclude diagnosis of: Deep Vein Thrombosis (DVT) or Pulmonary Embolism (PE) Performed By: #### L300.8000 #### [facility] [address] [place], [address] CHEST 1 VIEW Observed: 11/19/2017 Status: F Source: KREMLIN (PORTABLE) 12:40 PM [facility] REPOSITORY [facility] Imaging Services [address] [place] [address] Chest 1 View (Portable) MR#: [id number] Acct: [id number] Name: MAYCO KENDRICK Rep #: [id number] : 1940 M 77 From: Minh Contreras MD PCP: Bertrand Leon MD Status: REG ER Study: Chest 1 View (Portable) Date of Exam: 11/19/17 Exam# [id number] Ordering Dr: Liliana Helms MD STUDY: X-RAY CHEST REASON FOR EXAM: Male, 77 years old. Chest pain. TECHNIQUE: Single AP upright portable chest view. COMPARISON: Portable chest 05/03/2017. Correlation CT chest 05/03/2017. FINDINGS: Right pacemaker battery and dual contiguous appearing intracardiac leads appear well-positioned, stable appearance where visualized. Right lung appears fairly well ventilated with mild mid and moderate lower heterogeneous opacities seen. Mild left greater than right opacification CP angles noted which appear sharply marginated bilaterally. Left lung shows overall decreased volume and hazy heterogeneous mid lung opacity and more homogeneous heterogeneous basal opacity. Mildly enlarged heart suggested, left lower heart is obscured by left mid/basilar opacity. No change moderately widened mediastinum with effaced left lateral lower margin. Increased left greater than right hilar heterogeneous opacities most likely represent enlarged pulmonary vessels, relatively unchanged suggestive portal arterial hypertension in the appropriate clinical setting. Left-sided visualized aortic arch and descending thoracic aorta appears stable. Visualized bones appear intact without acute osseous process identified. No change sternal wires and numerous left mediastinal and hilar surgical clips. There is no demonstrated abnormality of the visualized soft tissue structures of the upper abdomen. No subdiaphragmatic free air seen grossly. RAD/Chest 1 View (Portable) IMPRESSION: Left greater than right heterogeneous opacities in left lung volume loss, clinical correlation for CHF/fluid overload, pneumonia, atelectasis and/or pleural fluid recommended. Recommend follow-up chest exam as clinically indicated for clearing to exclude neoplasm.. Electronically Signed: Minh Contreras, at 13:40 EDT Tel , Service support , CC: Bertrand Leon MD; Liliana Helms MD Librarian Head: Signed CBC W/DIFF, AUTOMATED Collected: 11/19/2017 Status: F Source: BIANKA 12:10 PM [facility] REPOSITORY TYPE CODE TESTS RESULT OUT OF RANGE REFERENCE UNITS LAB L100.1000 4.4-11.0 K/mm3 Normal WBC 8.3 LAB L100.1200 4.6-6.2 M/mm3 Normal RBC 4.70 LAB L100.1300 13.0-16.5 g/dl Normal HGB 14.1 LAB L100.1400 40-54 % Normal HCT 42.0 LAB L100.1500 80-94 fL Normal MCV 89.4 LAB L100.1600 27.0-32.0 pg Normal MCH 30.0 LAB L100.1700 32-36 g/gl Normal MCHC 33.6 LAB L100.1810 11.6-14.6 % High RDW CV 14.8 LAB L100.1820 35.1-43.9 fl High RDW SD 47.0 LAB L100.1900 150-450 K/mm3 Normal PLT 239 LAB L100.2000 6.2-12.0 fl Normal MPV 10.2 LAB L100.2100 47-70 % Normal NEUT% 60.2 LAB L100.2200 19-41 % Normal LY% 21.7 LAB L100.2300 0-10 % High MONO% 12.5 LAB L100.2400 0-5 % Normal EO% 4.7 LAB L100.2500 0-1 % Normal BASO% 0.5 LAB L100.2550 0.0-0.9 % Normal IM GRAN % 0.400 Result Comment: IG% - Immature Granulocytes (promyelocytes, myelocytes and metamyelocytes) > 1% indicates that a LEFT SHIFT is Present. LAB L100.2620 2.0-7.7 X10 3/uL Normal Absolute Neut 5.0 LAB L100.2720 0.83-4.51 X10 3/ul Normal Absolute Lymph 1.80 Performed By: #### L100.0100 #### [facility] [address] [place], [place], [id number] BASIC METABOLIC Collected: 11/19/2017 Status: F Source: [place] PROFILE (BMP) 12:10 PM [facility] REPOSITORY Order Comment: 'TROP' Serial specimen #1, #2, #3, or #4: 1 TYPE CODE TESTS RESULT OUT OF RANGE REFERENCE UNITS LAB L501.0100 74-106 mg/dL High GLU 126 Result Comment: Fasting Glucose result greater than or equal to 126 mg/dL suggests DIABETES MELLITUS per A.D.A. criteria. Please note revised GLUCOSE reference range effective 2017. LAB L501.1000 7-18 mg/dL High BUN 20 LAB L501.1100 0.70-1.30 mg/dL Normal CREAT,SERUM 0.94 Result Comment: The validity of the calculated GFR AND GFRAA in patients over 70 years has not been determined. Clinical correlation is essential. LAB L501.1110 >60 mL/min Normal EST GFR 83 Result Comment: Non- GFR Calc LAB L501.1115 >60 mL/min Normal EST GFR - AA 101 Result Comment: GFR Calc LAB L501.1255 ml/min Normal Estimated CRCL 73.38 LAB L501.1300 10-20 RATIO High BUN/CRE 21.3 LAB L501.2200 8.5-10 mg/dL Low .1 CA 8.4 LAB L501.5300 136-14 mmol/L Normal 5 NA 142 LAB L501.5600 3.5-5. mmol/L Normal 1 K 3.8 Result Comment: Slight Hemolysis, Result may be falsely increased. LAB L501.5900 98-107 mmol/L Normal CL 105 LAB L501.6100 21.0-32.0 mmol/L Normal CO2 29.0 LAB L501.6200 5-15 Normal 8 GAP Performed By: #### L500.2500, L501.4010 #### [facility] [address] [place], [address] TROPONIN-I Collected: 11/19/2017 Status: F Source: [place] 12:10 PM [facility] REPOSITORY Order Comment: 'TROP' Serial specimen #1, #2, #3, or #4: 1 TYPE CODE TESTS RESULT OUT OF RANGE REFERENCE UNITS LAB L501.4010 <0.06 ng/mL Normal < 0.02 TROPONIN-I Result Comment: TROPONIN-I EXPECTED VALUES <0.05 NEGATIVE 0.06 - 0.59 AT RISK OF MT > OR = 0.60 SUGGEST MT Performed By: #### L500.2500, L501.4010 #### [facility] [address] [place], [address] MAGNESIUM Collected: 11/19/2017 Status: F Source: [place] 12:10 PM [facility] REPOSITORY TYPE CODE TESTS RESULT OUT OF RANGE REFERENCE UNITS LAB L501.5200 1.6-2.6 mg/dL Normal MG 2.0 Result Comment: Please note revised Magnesium reference range effective 2017. Moderate Hemolysis, Result may be falsely increased. Performed By: #### L501.5200 #### [facility] [address] [place], [address] HEMOGLOBIN A1C Collected: 11/19/2017 Status: F Source: [place] 12:10 PM [facility] REPOSITORY TYPE CODE TESTS RESULT OUT OF RANGE REFERENCE UNITS LAB L501.9985 4.2-6.3 % High HGB A1C 6.6 Performed By: #### L501.9985 #### [facility] [address] [place], [address] CNPN Observed: 11/12/2017 Status: COMPLETED Source: [place] 12:00 AM [facility] REPOSITORY Telephone (AGCCOURTNEYT) MAYCO KENDRICK ([id number]) 1940 M NFR Date Time Provider Department 11/12/17 BRAULIO ROBLERO During your visit today, we recorded the following information about you: Rodrigue Fierro, RN, RN 11/12/2017 10:36 AM Signed Patient states that when he wakes up in the morning he coughs up a lot of phlegm and ANDquot;chunksANDquot;. He states that is not unusual for him. Starting three weeks ago there began to be blood during these coughing episodes. Once 2 weeks ago, twice 1 week ago, and this week it has happened three days in a row. He states that the amount of bleeding is saturating hand towels. He hasn't notified any other doctor. He thinks it is a result of being on Xarelto. Braulio Roblero MD 11/12/2017 3:14 PM Signed Will send this note on to Dr. Leon. This has been a chronic issue and is the reason that he has been taken off Xarelto in the past. For now, put Xarelto on hold. MD Rodrigue Luna RN, RN 11/12/2017 3:26 PM Signed Notified patient and nurse Aris @ T. Bertrand Leon MD 11/12/2017 3:42 PM Signed Addended by: BERTRAND LEON on: 11/12/2017 03:42 PM Modules accepted: Orders Allergies As of Date: 11/12/2017 Noted Allergy Reaction LISINOPRIL 05/31/2014 14 - Other: See Comments Comments: Metallic taste in mouth. SERTRALINE 05/02/2013 8 - GI Upset Date Reviewed: 10/21/2017 Reviewed by: Michaela Juares Ma - Fully Assessed Reason for Visit: Patient Update [1234] Prescriptions as of 11/12/2017 Sig: SUCRALFATE 1 GRAM TABLET Take 1 tablet by mouth three * PANTOPRAZOLE 40 MG TABLET,DEL* Take 1 tablet by mouth daily * FUROSEMIDE 80 MG TABLET One PO daily in AM FUROSEMIDE 40 MG TABLET One PO daily at dinner OXYBUTYNIN CHLORIDE 5 MG TABL* Take 1 tablet by mouth three * GLIMEPIRIDE 1 MG TABLET Take 1 tablet by mouth daily * METOPROLOL TARTRATE 25 MG TAB* Take 1 tablet by mouth every * KETOCONAZOLE 2 % SHAMPOO Use as a body wash, most spec* TRIAMCINOLONE ACETONIDE 0.1 %* Apply to itching rash on ches* ATORVASTATIN 80 MG TABLET Take 1 tablet by mouth once d* TAMSULOSIN 0.4 MG CAPSULE Take 1 capsule by mouth every* METFORMIN 500 MG TABLET Take 1 tablet by mouth three * NITROGLYCERIN 0.4 MG SUBLINGU* Take 1 tablet by mouth as nee* TRAZODONE 50 MG TABLET Take 1 tablet by mouth at bed* RANITIDINE 300 MG TABLET Take with evening meal. MAGNESIUM OXIDE 400 MG TABLET Take 1 tablet by mouth once d* DOCUSATE SODIUM 100 MG CAPSULE Take 1 capsule by mouth once * COMPOUNDED PRESCRIPTION Please eval and fix any issue* BISACODYL 10 MG RECTAL SUPPOS* 1 Suppository by RECTAL route* POLYETHYLENE GLYCOL 3350 17 G* 17 g up to twice daily as nee* ASPIRIN 81 MG TABLET,DELAYED * Take 1 tablet by mouth once d* COMPOUNDED PRESCRIPTION Glucometer high/low test solu* COMPOUNDED PRESCRIPTION Please perform a nocturnal ox* LANCETS Test glucose twice weekly. Dx* BLOOD SUGAR DIAGNOSTIC STRIPS testing twice weekly dx 250* BLOOD-GLUCOSE METER, DRUM-TYP* Test fasting blood sugar 1-2 * BLOOD-GLUCOSE METER KIT 1 Each as needed. One Touch M* BLOOD GLUCOSE CONTROL, NORMAL* Test controls as needed. * COMPOUNDED PRESCRIPTION BIPAP setting: IPAP 22cm wate* Medication notes this encounter RIVAROXABAN 20 MG TABLET >> Bertrand Leon MD 11/12/2017 3:42 PM recurrence of hemotemysis Problem List As Of Date 11/12/2017 Noted Resolved Mild intermittent asthma without complication [* Priority: A MALIGN NEOPL PROSTATE [C61] Priority: B More... Type II or unspecified type diabetes mellitus w* 01/18/2014 Allergic rhinitis, cause unspecified [J30.9] INVALID FOR* Priority: B More... Personal history of colonic polyps [Z86.010] Priority: C More... Lumbago [M54.5] INVALID FOR* Priority: M Bilateral leg edema [R60.0] INVALID FOR* Priority: A Carpal tunnel syndrome [G56.00] INVALID FOR* Priority: M Essential hypertension, benign [I10] INVALID FOR* Priority: A More... Insomnia, unspecified [G47.00] INVALID FOR* Priority: B More... Benign neoplasm of rectum and anal canal [D12.8*INVALID FOR* Priority: C Diverticulosis of colon (without mention of hem*INVALID FOR* Priority: C Hypertrophy of nasal turbinates [J34.3] INVALID FOR* Priority: C More... 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 More... More... EDMOND (obstructive sleep apnea) [G47.33] INVALID FOR* Priority: B More... Mobitz (type) I (Wenckebach's) atrioventricular*INVALID FOR* Priority: A More... More... Mixed hyperlipidemia [E78.2] INVALID FOR* Priority: A More... DVT prophylaxis [WGU7737] INVALID FOR*07/26/2014 More... More... More... More... More... More... Bradycardia [R00.1] INVALID FOR* Priority: A More... Venous stasis dermatitis of both lower extremit*INVALID FOR* Priority: B Counseling and coordination of care [Z71.89] INVALID FOR*04/12/2015 More... Hypomagnesemia [E83.42] INVALID FOR* Priority: B Diabetic eye exam (HCC) [E11.9, Z01.00] INVALID FOR* Priority: A More... Dry mouth [R68.2] INVALID FOR* Priority: B Noncompliance [Z91.19] INVALID FOR* Gastroesophageal reflux disease without esophag*INVALID FOR* Priority: A Coronary atherosclerosis due to lipid rich plaq*INVALID FOR* Priority: A Morbid obesity due to excess calories (HCC) [E6*INVALID FOR* Priority: B More... Essential tremor [G25.0] INVALID FOR* Priority: B Chronic cough [R05] INVALID FOR* Priority: B Well adult exam [Z00.00] INVALID FOR* Priority: E More... Controlled type 2 diabetes mellitus with diabet*INVALID FOR* Priority: A Depression [F32.9] INVALID FOR* Priority: A Multiple open wounds of lower leg [S81.809A] INVALID FOR* Priority: D Colon cancer screening [Z12.11] INVALID FOR* Chest pain [R07.9] INVALID FOR* Priority: B More... Second degree heart block [I44.1] INVALID FOR* Priority: A More... Atherosclerosis of coronary artery bypass graft*INVALID FOR* Priority: A More... More... More... More... Hypoxia [R09.02] INVALID FOR* Chronic bilateral low back pain with left-sided*INVALID FOR* Priority: M Bilateral hip pain [M25.551, M25.552] INVALID FOR* Priority: M Paroxysmal atrial fibrillation (HCC) [I48.0] INVALID FOR* Priority: A More... 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 Right carpal tunnel syndrome [G56.01] INVALID FOR* Priority: M More... Presence of cardiac pacemaker [Z95.0] INVALID FOR* Priority: B Esophagitis [K20.9] INVALID FOR* Albuminuria [R80.9] INVALID FOR* Priority: A Carpal tunnel syndrome, bilateral [G56.03] INVALID FOR* Priority: M More... Ulnar nerve compression, right [G56.21] INVALID FOR* Priority: M More... Current use of proton pump inhibitor [Z79.899] INVALID FOR* Medications Discontinued During This Encounter rivaroxaban (XARELTO) 20 mg tablet 30 t* 11 09/28/2017 11/12/2017 Route: ORAL Sig: Take 1 tablet by mouth daily with dinner. Disc: Adverse Reaction Encounter Status:Closed by RODRIGUE FIERRO on 11/12/17 PACEMAKER CHECK Observed: 10/29/2017 Status: F Source: [place] 3:22 PM [facility] REPOSITORY [facility] [address] [place], [place] [address] Pacemaker Check Date of Service: 10/26/17 1104 MR#: [id number] Acct: [id number] Name: MAYCO KENDRICK Rep #: [id number] : 1940 From: Maribel Herrera Age/Sex: 77/M Location: [facility] Status: Signed Comments Summary Comments: Dual Chamber Pacemaker Evaluation: New enrollee to device clinic from [facility]. Interrogation shows 3 AT/AF episodes, <0.1% and 1 NSVT episode since 04/05/17. Stored e-gram on 09/30/17 shows MVT @ 200 bpm x 8 beats (AV dissociated). Right pectoral pocket/incision w/o s/s of infection or erosion. Pt offers no cardiac complaints. Presenting rhythm shows AV sequential Paced @ 60 ppm with PAC's. Battery longevity approx 8 yrs. RADIATOR CORE TESTER=99.8%. Lead impedances, atrial sensing and A/V pace/sense thresholds remain stable. Unable to check ventricular sensing d/t no intrinsic R waves with rate decrease. No parameter changes made. Counters cleared. Next f/u appt scheduled for in 6 mos. Report faxed to Dr. Roblero's office. Device Device Date Interviewed: 10/26/17 Follow-up Location: in office Interview Reason: scheduled follow up Turf Farmer: [employer] Name: Srinath WALSH Model: A2DR01 Serial #: [id number] Implant Date: 04/23/16 Year(s): 1 Implant Physician: Dr. Alexander Estes/[facility] Patient Characteristics Atrial Indication: sick sinus syndrome Underlying rhythm: Complete heart block (no inrinsic R waves) Pacemaker Dependent: Yes Device Characteristics Device: Dual Chamber Type: Pacemaker Remote Follow-Up: No Device Physical Exam Yes Incision well healed Leads Lead #1 Turf Farmer Lead 1: Medtronic Model Lead 1: 5076 Serial# Lead 1: [id number] Date Implanted Lead 1: 04/23/16 Position Lead 1: RA Lead #2 Turf Farmer Lead 2: Medtronic Model Lead 2: 5076 Serial# Lead 2: [id number] Date Implanted Lead 2: 09/01/16 Position Lead 2: RV Diagnostics Pacing % RA Pacin.1 % RV Pacin.8 Mode Switching Total # Episodes: 3 % Mode switched: 0.1 Arrhythmias Non-Sust Episodes: 1 Measurements Battery Voltage (V): 3.01 Magnet Rate (bmp): 85 Predicted Remaining Longevity (months or years): 8 years RA Measurements Signal Amplitude (mV): 2.0 Impedance (Ohms): 475 Threshold Voltage: 0.75 @ PW(ms): 0.4 RV Measurements Impedance (Ohms): 456 Threshold Voltage: 0.75 @ PW(ms): 0.4 Marcos Settings Marcos Settings Pacemaker Mode DDD Lower Rate Limit (bpm) 60 Hysteresis Rate (bpm) Max Track Rate (bpm) 130 Max Sensor Rate (bpm) 130 Max AV Delay (msec) 200 Max PV Delay (msec) Max PVARP (msec) Output/Sensing V/PW (ms) 1.75/0.4 2.5/0.4 Sensitivity RA RV LV Comments: Billing Codes PM Device Codes: PM Dev Prog Eval, Dual Assessment AND Plan Problems 1. 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 Symptomatic bradycardia R00.1 4. Complete heart block I44.2 5. Paroxysmal atrial fibrillation I48.0 10/29/17 1455 <Electronically signed by Maribel Herrera > Date Maribel Herrera 10/29/17 1522<Electronically signed by Pierre Mercado MD> Cosignmazin Signature: Date (if applicable) Pierre Mercado MD CC: ALLI Observed: 10/28/2017 Status: COMPLETED Source: [place] 12:00 AM [facility] REPOSITORY Telephone (AGCARDWST) KENDRICKMAYCO CAPELLAN ([id number]) 1940 M NFR Date Time Provider Department 10/28/17 BRAULIO [place]BL[place]OWSAng[place] During your visit today, we recorded the following information about you: Rodrigue Fierro RN, RN 10/28/2017 8:37 AM Signed BMP from [facility] (10-27-17) in folder for review, thank you. Braulio Roblero MD 10/28/2017 10:51 AM Signed Noted and sent for scanning. MD Rodrigue Luna RN, RN 11/12/2017 10:52 AM Signed Faxed copy of this note to [employer] @ [phone] Allergies As of Date: 10/28/2017 Noted Allergy Reaction LISINOPRIL 05/31/2014 14 - Other: See Comments Comments: Metallic taste in mouth. SERTRALINE 05/02/2013 8 - GI Upset Date Reviewed: 10/21/2017 Reviewed by: Michaela Juares Ma - Fully Assessed Reason for Visit: Results [95] Prescriptions as of 10/28/2017 Sig: PANTOPRAZOLE 40 MG TABLET,DEL* Take 1 tablet by mouth daily * FUROSEMIDE 80 MG TABLET One PO daily in AM FUROSEMIDE 40 MG TABLET One PO daily at dinner OXYBUTYNIN CHLORIDE 5 MG TABL* Take 1 tablet by mouth three * GLIMEPIRIDE 1 MG TABLET Take 1 tablet by mouth daily * METOPROLOL TARTRATE 25 MG TAB* Take 1 tablet by mouth every * RIVAROXABAN 20 MG TABLET Take 1 tablet by mouth daily * KETOCONAZOLE 2 % SHAMPOO Use as a body wash, most spec* TRIAMCINOLONE ACETONIDE 0.1 %* Apply to itching rash on ches* ATORVASTATIN 80 MG TABLET Take 1 tablet by mouth once d* TAMSULOSIN 0.4 MG CAPSULE Take 1 capsule by mouth every* METFORMIN 500 MG TABLET Take 1 tablet by mouth three * NITROGLYCERIN 0.4 MG SUBLINGU* Take 1 tablet by mouth as nee* TRAZODONE 50 MG TABLET Take 1 tablet by mouth at bed* RANITIDINE 300 MG TABLET Take with evening meal. MAGNESIUM OXIDE 400 MG TABLET Take 1 tablet by mouth once d* DOCUSATE SODIUM 100 MG CAPSULE Take 1 capsule by mouth once * X SUCRALFATE 1 GRAM TABLET Take 1 tablet by mouth three * COMPOUNDED PRESCRIPTION Please eval and fix any issue* BISACODYL 10 MG RECTAL SUPPOS* 1 Suppository by RECTAL route* POLYETHYLENE GLYCOL 3350 17 G* 17 g up to twice daily as nee* ASPIRIN 81 MG TABLET,DELAYED * Take 1 tablet by mouth once d* COMPOUNDED PRESCRIPTION Glucometer high/low test solu* COMPOUNDED PRESCRIPTION Please perform a nocturnal ox* LANCETS Test glucose twice weekly. Dx* BLOOD SUGAR DIAGNOSTIC STRIPS testing twice weekly dx 250* BLOOD-GLUCOSE METER, DRUM-TYP* Test fasting blood sugar 1-2 * BLOOD-GLUCOSE METER KIT 1 Each as needed. One Touch M* BLOOD GLUCOSE CONTROL, NORMAL* Test controls as needed. * COMPOUNDED PRESCRIPTION BIPAP setting: IPAP 22cm wate* Problem List As Of Date 10/28/2017 Noted Resolved Mild intermittent asthma without complication [* Priority: A MALIGN NEOPL PROSTATE [C61] Priority: B More... Type II or unspecified type diabetes mellitus w* 01/18/2014 Allergic rhinitis, cause unspecified [J30.9] INVALID FOR* Priority: B More... Personal history of colonic polyps [Z86.010] Priority: C More... Lumbago [M54.5] INVALID FOR* Priority: M Bilateral leg edema [R60.0] INVALID FOR* Priority: A Carpal tunnel syndrome [G56.00] INVALID FOR* Priority: M Essential hypertension, benign [I10] INVALID FOR* Priority: A More... Insomnia, unspecified [G47.00] INVALID FOR* Priority: B More... Benign neoplasm of rectum and anal canal [D12.8*INVALID FOR* Priority: C Diverticulosis of colon (without mention of hem*INVALID FOR* Priority: C Hypertrophy of nasal turbinates [J34.3] INVALID FOR* Priority: C More... 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 More... More... EDMOND (obstructive sleep apnea) [G47.33] INVALID FOR* Priority: B More... Mobitz (type) I (Wenckebach's) atrioventricular*INVALID FOR* Priority: A More... More... Mixed hyperlipidemia [E78.2] INVALID FOR* Priority: A More... DVT prophylaxis [JTO5478] INVALID FOR*07/26/2014 More... More... More... More... More... More... Bradycardia [R00.1] INVALID FOR* Priority: A More... Venous stasis dermatitis of both lower extremit*INVALID FOR* Priority: B Counseling and coordination of care [Z71.89] INVALID FOR*04/12/2015 More... Hypomagnesemia [E83.42] INVALID FOR* Priority: B Diabetic eye exam (HCC) [E11.9, Z01.00] INVALID FOR* Priority: A More... Dry mouth [R68.2] INVALID FOR* Priority: B Noncompliance [Z91.19] INVALID FOR* Gastroesophageal reflux disease without esophag*INVALID FOR* Priority: A Coronary atherosclerosis due to lipid rich plaq*INVALID FOR* Priority: A Morbid obesity due to excess calories (HCC) [E6*INVALID FOR* Priority: B More... Essential tremor [G25.0] INVALID FOR* Priority: B Chronic cough [R05] INVALID FOR* Priority: B Well adult exam [Z00.00] INVALID FOR* Priority: E More... Controlled type 2 diabetes mellitus with diabet*INVALID FOR* Priority: A Depression [F32.9] INVALID FOR* Priority: A Multiple open wounds of lower leg [S81.809A] INVALID FOR* Priority: D Colon cancer screening [Z12.11] INVALID FOR* Chest pain [R07.9] INVALID FOR* Priority: B More... Second degree heart block [I44.1] INVALID FOR* Priority: A More... Atherosclerosis of coronary artery bypass graft*INVALID FOR* Priority: A More... More... More... More... Hypoxia [R09.02] INVALID FOR* Chronic bilateral low back pain with left-sided*INVALID FOR* Priority: M Bilateral hip pain [M25.551, M25.552] INVALID FOR* Priority: M Paroxysmal atrial fibrillation (HCC) [I48.0] INVALID FOR* Priority: A More... 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 Right carpal tunnel syndrome [G56.01] INVALID FOR* Priority: M More... Presence of cardiac pacemaker [Z95.0] INVALID FOR* Priority: B Esophagitis [K20.9] INVALID FOR* Albuminuria [R80.9] INVALID FOR* Priority: A Carpal tunnel syndrome, bilateral [G56.03] INVALID FOR* Priority: M More... Ulnar nerve compression, right [G56.21] INVALID FOR* Priority: M More... Current use of proton pump inhibitor [Z79.899] INVALID FOR* Encounter Status:Closed by RODRIGUE FIERRO on 10/28/17 OBSOLETE Observed: 10/25/2017 Status: COMPLETED Source: [place] 12:00 AM [facility] REPOSITORY Refill (AGCARDWST) MAYCO KENDRICK ([id number]) 1940 M NFR Date Time Provider Department 10/25/17 BRAULIO ROBLERO During your visit today, we recorded the following information about you: Rodrigue Fierro RN, RN 10/25/2017 10:46 AM Signed Dotty at [facility] requests refill, thank you. Patient has been identified by name and date of : Yes Pending Prescriptions Disp Refills FUROSEMIDE 80 MG TABLET 90 tablet 3 Sig: One PO daily in AM MADHURI: No FUROSEMIDE 40 MG TABLET 90 tablet 3 Sig: One PO daily at dinner MADHURI: No RX INSTRUCTIONS: Patient aware RX will be sent to pharmacy. No need to notify patient. TALA Bird MD 10/25/2017 11:12 AM Signed Basic profile please Braulio Roblero MD The following approved medication requests have been transmitted electronically. Signed Prescriptions Disp Refills furosemide (LASIX) 80 mg tablet 90 tablet 3 Sig: One PO daily in AM MADHURI: No Authorizing Provider: BRAULIO ROBLERO furosemide (LASIX) 40 mg tablet 90 tablet 3 Sig: One PO daily at dinner MADHURI: No Authorizing Provider: BRAULIO ROBLERO MD Adam Gilmor, RN, RN 10/25/2017 11:33 AM Signed Dotty verbalizes understanding, they will draw Wed. Allergies As of Date: 10/25/2017 Noted Allergy Reaction LISINOPRIL 05/31/2014 14 - Other: See Comments Comments: Metallic taste in mouth. SERTRALINE 05/02/2013 8 - GI Upset Date Reviewed: 10/21/2017 Reviewed by: Michaela Juares Ma - Fully Assessed Reason for Visit: Refill Request [94] Primary Visit Diagnosis:Essential hypertension [I10] Order(s):furosemide (LASIX) 80 mg tabletOne PO daily in AMDisp: 90 tabletRfl: 3 furosemide (LASIX) 40 mg tabletOne PO daily at dinnerDisp: 90 tabletRfl: 3 BASIC METABOLIC PNL [SQBMP] Order #: [id number] FUTURE Prescriptions as of 10/25/2017 Sig: PANTOPRAZOLE 40 MG TABLET,DEL* Take 1 tablet by mouth daily * FUROSEMIDE 80 MG TABLET One PO daily in AM FUROSEMIDE 40 MG TABLET One PO daily at dinner OXYBUTYNIN CHLORIDE 5 MG TABL* Take 1 tablet by mouth three * GLIMEPIRIDE 1 MG TABLET Take 1 tablet by mouth daily * METOPROLOL TARTRATE 25 MG TAB* Take 1 tablet by mouth every * RIVAROXABAN 20 MG TABLET Take 1 tablet by mouth daily * KETOCONAZOLE 2 % SHAMPOO Use as a body wash, most spec* TRIAMCINOLONE ACETONIDE 0.1 %* Apply to itching rash on ches* ATORVASTATIN 80 MG TABLET Take 1 tablet by mouth once d* TAMSULOSIN 0.4 MG CAPSULE Take 1 capsule by mouth every* METFORMIN 500 MG TABLET Take 1 tablet by mouth three * NITROGLYCERIN 0.4 MG SUBLINGU* Take 1 tablet by mouth as nee* TRAZODONE 50 MG TABLET Take 1 tablet by mouth at bed* RANITIDINE 300 MG TABLET Take with evening meal. MAGNESIUM OXIDE 400 MG TABLET Take 1 tablet by mouth once d* DOCUSATE SODIUM 100 MG CAPSULE Take 1 capsule by mouth once * SUCRALFATE 1 GRAM TABLET Take 1 tablet by mouth three * COMPOUNDED PRESCRIPTION Please eval and fix any issue* BISACODYL 10 MG RECTAL SUPPOS* 1 Suppository by RECTAL route* POLYETHYLENE GLYCOL 3350 17 G* 17 g up to twice daily as nee* ASPIRIN 81 MG TABLET,DELAYED * Take 1 tablet by mouth once d* COMPOUNDED PRESCRIPTION Glucometer high/low test solu* COMPOUNDED PRESCRIPTION Please perform a nocturnal ox* LANCETS Test glucose twice weekly. Dx* BLOOD SUGAR DIAGNOSTIC STRIPS testing twice weekly dx 250* BLOOD-GLUCOSE METER, DRUM-TYP* Test fasting blood sugar 1-2 * BLOOD-GLUCOSE METER KIT 1 Each as needed. One Touch M* BLOOD GLUCOSE CONTROL, NORMAL* Test controls as needed. * COMPOUNDED PRESCRIPTION BIPAP setting: IPAP 22cm wate* Problem List As Of Date 10/25/2017 Noted Resolved Mild intermittent asthma without complication [* Priority: A MALIGN NEOPL PROSTATE [C61] Priority: B More... Type II or unspecified type diabetes mellitus w* 01/18/2014 Allergic rhinitis, cause unspecified [J30.9] INVALID FOR* Priority: B More... Personal history of colonic polyps [Z86.010] Priority: C More... Lumbago [M54.5] INVALID FOR* Priority: M Bilateral leg edema [R60.0] INVALID FOR* Priority: A Carpal tunnel syndrome [G56.00] INVALID FOR* Priority: M Essential hypertension, benign [I10] INVALID FOR* Priority: A More... Insomnia, unspecified [G47.00] INVALID FOR* Priority: B More... Benign neoplasm of rectum and anal canal [D12.8*INVALID FOR* Priority: C Diverticulosis of colon (without mention of hem*INVALID FOR* Priority: C Hypertrophy of nasal turbinates [J34.3] INVALID FOR* Priority: C More... 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 More... More... EDMOND (obstructive sleep apnea) [G47.33] INVALID FOR* Priority: B More... Mobitz (type) I (Wenckebach's) atrioventricular*INVALID FOR* Priority: A More... More... Mixed hyperlipidemia [E78.2] INVALID FOR* Priority: A More... DVT prophylaxis [GDY9495] INVALID FOR*07/26/2014 More... More... More... More... More... More... Bradycardia [R00.1] INVALID FOR* Priority: A More... Venous stasis dermatitis of both lower extremit*INVALID FOR* Priority: B Counseling and coordination of care [Z71.89] INVALID FOR*04/12/2015 More... Hypomagnesemia [E83.42] INVALID FOR* Priority: B Diabetic eye exam (HCC) [E11.9, Z01.00] INVALID FOR* Priority: A More... Dry mouth [R68.2] INVALID FOR* Priority: B Noncompliance [Z91.19] INVALID FOR* Gastroesophageal reflux disease without esophag*INVALID FOR* Priority: A Coronary atherosclerosis due to lipid rich plaq*INVALID FOR* Priority: A Morbid obesity due to excess calories (HCC) [E6*INVALID FOR* Priority: B More... Essential tremor [G25.0] INVALID FOR* Priority: B Chronic cough [R05] INVALID FOR* Priority: B Well adult exam [Z00.00] INVALID FOR* Priority: E More... Controlled type 2 diabetes mellitus with diabet*INVALID FOR* Priority: A Depression [F32.9] INVALID FOR* Priority: A Multiple open wounds of lower leg [S81.809A] INVALID FOR* Priority: D Colon cancer screening [Z12.11] INVALID FOR* Chest pain [R07.9] INVALID FOR* Priority: B More... Second degree heart block [I44.1] INVALID FOR* Priority: A More... Atherosclerosis of coronary artery bypass graft*INVALID FOR* Priority: A More... More... More... More... Hypoxia [R09.02] INVALID FOR* Chronic bilateral low back pain with left-sided*INVALID FOR* Priority: M Bilateral hip pain [M25.551, M25.552] INVALID FOR* Priority: M Paroxysmal atrial fibrillation (HCC) [I48.0] INVALID FOR* Priority: A More... 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 Right carpal tunnel syndrome [G56.01] INVALID FOR* Priority: M More... Presence of cardiac pacemaker [Z95.0] INVALID FOR* Priority: B Esophagitis [K20.9] INVALID FOR* Albuminuria [R80.9] INVALID FOR* Priority: A Carpal tunnel syndrome, bilateral [G56.03] INVALID FOR* Priority: M More... Ulnar nerve compression, right [G56.21] INVALID FOR* Priority: M More... Current use of proton pump inhibitor [Z79.899] INVALID FOR* Prescriptions ordered this encounter Disp Refills Start End FUROSEMIDE 80 MG TABLET 90 t* 3 10/25/2017 Sig: One PO daily in AM FUROSEMIDE 40 MG TABLET 90 t* 3 10/25/2017 Sig: One PO daily at dinner Medications Discontinued During This Encounter furosemide (LASIX) 80 mg tablet 90 t* 1 09/27/2017 10/25/2017 Sig: One PO daily in AM Disc: Reason for discontinue is not on file. furosemide (LASIX) 40 mg tablet 12/03/2015 10/25/2017 Class: Med Update Sig: One PO daily at dinner Disc: Reason for discontinue is not on file. Encounter Status:Closed by RODRIGUE FIERRO on 10/25/17 PROGRESS Observed: 10/21/2017 Status: COMPLETED Source: [place] 6:02 PM [facility] O ID: [id number] Author: Ruddy Chavez Service: (none) Author Type: Physician Type: Progress Notes Filed: 10/21/2017 6:03 PM Note Text: Ruddy Chavez MD Department of Orthopaedics Orth[facility] [address] [facility] [address] Dept: [phone] Dept October 21, 2017 CHIEF COMPLAINT: Surgical Followup (5 weeks 6 days post op right ulnar nerve decompression and right CTR). 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 He is actually doing very well and feels rather significant improvement already. He is having some mild symptoms on the left in similar distributions and does not know if he is quite ready to pursue surgery on that side yet. He will think about it. If he would like to go forward with surgery on the left side, we can get him scheduled to his liking. Exam: both surgical sites of healed very nicely. Gross neurovascular exam is intact throughout all digits in the hand. Supporting Information Below: Medications: Current Outpatient Prescriptions: oxybutynin (DITROPAN) 5 mg tablet Take 1 tablet by mouth three times daily. glimepiride (AMARYL) 1 mg tablet Take 1 tablet by mouth daily with breakfast. metoprolol tartrate, short acting, (LOPRESSOR) 25 mg tablet Take 1 tablet by mouth every 12 hours. rivaroxaban (XARELTO) 20 mg tablet Take 1 tablet by mouth daily with dinner. ketoconazole (NIZORAL) 2 % shampoo Use as a body wash, most specifically the chest, daily for itching and flaking; may keep in own shower triamcinolone acetonide (KENALOG) 0.1 % cream Apply to itching rash on chest twice daily ONLY when needed; may keep in room atorvastatin (LIPITOR) 80 mg tablet Take 1 tablet by mouth once daily. tamsulosin ER (FLOMAX) 0.4 mg cp24 Take 1 capsule by mouth every evening. for prostate metFORMIN (GLUCOPHAGE) 500 mg tablet Take 1 tablet by mouth three times daily with meals. nitroglycerin sublingual (NITROSTAT) 0.4 mg SL tablet Take 1 tablet by mouth as needed. for chest pain; dissolve on tongue. If no pain relief call 911. traZODone (DESYREL) 50 mg tablet Take 1 tablet by mouth at bedtime as needed (sedation). Ranitidine HCl 300 mg tablet Take with evening meal. magnesium oxide (MAG-OX) 400 mg tablet Take 1 tablet by mouth once daily. docusate sodium (DOC-Q-LACE) 100 mg capsule Take 1 capsule by mouth once daily. furosemide (LASIX) 80 mg tablet One PO daily in AM sucralfate (CARAFATE) 1 gram tablet Take 1 tablet by mouth three times daily before meals. 30 minutes before meals. COMPOUNDED PRESCRIPTION Please eval and fix any issues with walker.Dx: I50.33, I25.10, E66.01, M54.42, M25.[address] (PROTONIX) 40 mg tablet Take 1 tablet by mouth daily before breakfast. Take on empty stomach, 1/2 hr before meal. Per Gastroenterology bisacodyl (DULCOLAX) 10 mg supp 1 Suppository by RECTAL route once daily as needed (for constipation). polyethylene glycol 3350 (MIRALAX, GLYCOLAX) 17 gram/dose powder 17 g up to twice daily as needed prn constipation aspirin, enteric coated (ADULT LOW DOSE ASPIRIN) 81 mg EC tablet Take 1 tablet by mouth once daily. furosemide (LASIX) 40 mg tablet One PO daily at dinner COMPOUNDED PRESCRIPTION Glucometer high/low test solution for accucheck. DX: DM COMPOUNDED PRESCRIPTION Please perform a nocturnal oximetry on room air on BiPAP. Diagnosis: HypoxiaPlease fax results to [phone] Attn: Glendy Lancets (ACCU-CHEK FASTCLIX) lancets Test glucose twice weekly. Dx: 250.00. Insulin Use: no blood sugar diagnostic test strip testing twice weekly dx 250.00 insulin no Blood-Glucose Meter, Drum-type (ACCU-CHEK COMPACT PLUS CARE) kit Test fasting blood sugar 1-2 times a week and 2 hrs post meal 1- 2 times a week. Blood-Glucose Meter (ONETOUCH ULTRA 2) monitoring kit 1 Each as needed. One Touch Meter Kit Diagnosis: Diabetes Mellitus Blood Glucose Control, Normal (OT ULTRA/FASTTRACK CONTROL) soln Test controls as needed. COMPOUNDED PRESCRIPTION BIPAP setting: IPAP 22cm water with heated humidification EPAP setting of 16cm with supplemental oxygen bleed in at 2lt per minute. Mask (per patient preference) and supplies for lifetime. Please add chin strap DX EDMOND 327.23 No current facility-administered medications for this visit. Allergies: Lisinopril; Sertraline This note was partially generated using Cell[employer] voice recognition system, and there may be some incorrect words, spellings, and punctuation that were not noted in checking the note before saving. Ruddy Chavez MD PROGRESS Observed: 10/21/2017 Status: COMPLETED Source: [place] 1:45 PM [facility] HNO ID: [id number] Author: Michaela Juares Ma Service: (none) Author Type: (none) Type: Progress Notes Filed: 10/21/2017 6:03 PM Note Text: Patient presents with: Surgical Followup: 5 weeks 6 days post op right ulnar nerve decompression and right CTR AMB ROOMING INTAKE FLOWSHEET DATA Risk Screening Do you have concerns about personal safety or safety in the home?: No Patient states he has been wearing elbow pad when he is doing things. Denies any pain today. Patient states at times he has pain in his elbow when resting it on a table and sharp pain in his hand and wrist. Taking no med's for the pain. CNOV Observed: 10/21/2017 Status: COMPLETED Source: [place] 1:30 PM [facility] Office Visit (ORTHWS) MAYCO KENDRICK ([id number]) 1940 NFR Date Time Provider Department 10/21/17 1:30 PM RUDDY CHAVEZ During your visit today, we recorded the following information about you: Michaela Juares Ma 10/21/2017 6:03 PM Signed Patient presents with: Surgical Followup: 5 weeks 6 days post op right ulnar nerve decompression and right CTR AMB ROOMING INTAKE FLOWSHEET DATA Risk Screening Do you have concerns about personal safety or safety in the home?: No Patient states he has been wearing elbow pad when he is doing things. Denies any pain today. Patient states at times he has pain in his elbow when resting it on a table and sharp pain in his hand and wrist. Taking no med's for the pain. Ruddy Chavez MD 10/21/2017 6:03 PM Signed Ruddy Chavez MD Department of Orthopaedics Orthopaedics [address] [place] [address] Dept: [phone] Dept October 21, 2017 CHIEF COMPLAINT: Surgical Followup (5 weeks 6 days post op right ulnar nerve decompression and right CTR). 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 He is actually doing very well and feels rather significant improvement already. He is having some mild symptoms on the left in similar distributions and does not know if he is quite ready to pursue surgery on that side yet. He will think about it. If he would like to go forward with surgery on the left side, we can get him scheduled to his liking. Exam: both surgical sites of healed very nicely. Gross neurovascular exam is intact throughout all digits in the hand. Supporting Information Below: Medications: Current Outpatient Prescriptions: oxybutynin (DITROPAN) 5 mg tablet Take 1 tablet by mouth three times daily. glimepiride (AMARYL) 1 mg tablet Take 1 tablet by mouth daily with breakfast. metoprolol tartrate, short acting, (LOPRESSOR) 25 mg tablet Take 1 tablet by mouth every 12 hours. rivaroxaban (XARELTO) 20 mg tablet Take 1 tablet by mouth daily with dinner. ketoconazole (NIZORAL) 2 % shampoo Use as a body wash, most specifically the chest, daily for itching and flaking; may keep in own shower triamcinolone acetonide (KENALOG) 0.1 % cream Apply to itching rash on chest twice daily ONLY when needed; may keep in room atorvastatin (LIPITOR) 80 mg tablet Take 1 tablet by mouth once daily. tamsulosin ER (FLOMAX) 0.4 mg cp24 Take 1 capsule by mouth every evening. for prostate metFORMIN (GLUCOPHAGE) 500 mg tablet Take 1 tablet by mouth three times daily with meals. nitroglycerin sublingual (NITROSTAT) 0.4 mg SL tablet Take 1 tablet by mouth as needed. for chest pain; dissolve on tongue. If no pain relief call 911. traZODone (DESYREL) 50 mg tablet Take 1 tablet by mouth at bedtime as needed (sedation). Ranitidine HCl 300 mg tablet Take with evening meal. magnesium oxide (MAG-OX) 400 mg tablet Take 1 tablet by mouth once daily. docusate sodium (DOC-Q-LACE) 100 mg capsule Take 1 capsule by mouth once daily. furosemide (LASIX) 80 mg tablet One PO daily in AM sucralfate (CARAFATE) 1 gram tablet Take 1 tablet by mouth three times daily before meals. 30 minutes before meals. COMPOUNDED PRESCRIPTION Please eval and fix any issues with walker.Dx: I50.33, I25.10, E66.01, M54.42, M25.[address] (PROTONIX) 40 mg tablet Take 1 tablet by mouth daily before breakfast. Take on empty stomach, 1/2 hr before meal. Per Gastroenterology bisacodyl (DULCOLAX) 10 mg supp 1 Suppository by RECTAL route once daily as needed (for constipation). polyethylene glycol 3350 (MIRALAX, GLYCOLAX) 17 gram/dose powder 17 g up to twice daily as needed prn constipation aspirin, enteric coated (ADULT LOW DOSE ASPIRIN) 81 mg EC tablet Take 1 tablet by mouth once daily. furosemide (LASIX) 40 mg tablet One PO daily at dinner COMPOUNDED PRESCRIPTION Glucometer high/low test solution for accucheck. DX: DM COMPOUNDED PRESCRIPTION Please perform a nocturnal oximetry on room air on BiPAP. Diagnosis: HypoxiaPlease fax results to [phone] Attn: Glendy Lancets (ACCU-CHEK FASTCLIX) lancets Test glucose twice weekly. Dx: 250.00. Insulin Use: no blood sugar diagnostic test strip testing twice weekly dx 250.00 insulin no Blood-Glucose Meter, Drum-type (ACCU-CHEK COMPACT PLUS CARE) kit Test fasting blood sugar 1-2 times a week and 2 hrs post meal 1-2 times a week. Blood-Glucose Meter (ONETOUCH ULTRA 2) monitoring kit 1 Each as needed. One Touch Meter Kit Diagnosis: Diabetes Mellitus Blood Glucose Control, Normal (OT ULTRA/FASTTRACK CONTROL) soln Test controls as needed. COMPOUNDED PRESCRIPTION BIPAP setting: IPAP 22cm water with heated humidification EPAP setting of 16cm with supplemental oxygen bleed in at 2lt per minute. Mask (per patient preference) and supplies for lifetime. Please add chin strap DX EDMOND 327.23 No current facility-administered medications for this visit. Allergies: Lisinopril; Sertraline This note was partially generated using Dragon voice recognition system, and there may be some incorrect words, spellings, and punctuation that were not noted in checking the note before saving. Ruddy Chavez MD Referring Provider: RUDDY CHAVEZ [[id number]] Allergies As of Date: 10/21/2017 Noted Allergy Reaction LISINOPRIL 05/31/2014 14 - Other: See Comments Comments: Metallic taste in mouth. 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] Other Visit Diagnosis:Carpal tunnel syndrome of right wrist [G56.01] Prescriptions as of 10/21/2017 Sig: OXYBUTYNIN CHLORIDE 5 MG TABL* Take 1 tablet by mouth three * GLIMEPIRIDE 1 MG TABLET Take 1 tablet by mouth daily * METOPROLOL TARTRATE 25 MG TAB* Take 1 tablet by mouth every * RIVAROXABAN 20 MG TABLET Take 1 tablet by mouth daily * KETOCONAZOLE 2 % SHAMPOO Use as a body wash, most spec* TRIAMCINOLONE ACETONIDE 0.1 %* Apply to itching rash on ches* ATORVASTATIN 80 MG TABLET Take 1 tablet by mouth once d* TAMSULOSIN 0.4 MG CAPSULE Take 1 capsule by mouth every* METFORMIN 500 MG TABLET Take 1 tablet by mouth three * NITROGLYCERIN 0.4 MG SUBLINGU* Take 1 tablet by mouth as nee* TRAZODONE 50 MG TABLET Take 1 tablet by mouth at bed* RANITIDINE 300 MG TABLET Take with evening meal. MAGNESIUM OXIDE 400 MG TABLET Take 1 tablet by mouth once d* DOCUSATE SODIUM 100 MG CAPSULE Take 1 capsule by mouth once * FUROSEMIDE 80 MG TABLET One PO daily in AM SUCRALFATE 1 GRAM TABLET Take 1 tablet by mouth three * COMPOUNDED PRESCRIPTION Please eval and fix any issue* PANTOPRAZOLE 40 MG TABLET,DEL* Take 1 tablet by mouth daily * BISACODYL 10 MG RECTAL SUPPOS* 1 Suppository by RECTAL route* POLYETHYLENE GLYCOL 3350 17 G* 17 g up to twice daily as nee* ASPIRIN 81 MG TABLET,DELAYED * Take 1 tablet by mouth once d* FUROSEMIDE 40 MG TABLET One PO daily at dinner COMPOUNDED PRESCRIPTION Glucometer high/low test solu* COMPOUNDED PRESCRIPTION Please perform a nocturnal ox* LANCETS Test glucose twice weekly. Dx* BLOOD SUGAR DIAGNOSTIC STRIPS testing twice weekly dx 250* BLOOD-GLUCOSE METER, DRUM-TYP* Test fasting blood sugar 1-2 * BLOOD-GLUCOSE METER KIT 1 Each as needed. One Touch M* BLOOD GLUCOSE CONTROL, NORMAL* Test controls as needed. * COMPOUNDED PRESCRIPTION BIPAP setting: IPAP 22cm wate* Problem List As Of Date 10/21/2017 Noted Resolved Mild intermittent asthma without complication [* Priority: A MALIGN NEOPL PROSTATE [C61] Priority: B More... Type II or unspecified type diabetes mellitus w* 01/18/2014 Allergic rhinitis, cause unspecified [J30.9] INVALID FOR* Priority: B More... Personal history of colonic polyps [Z86.010] Priority: C More... Lumbago [M54.5] INVALID FOR* Priority: M Bilateral leg edema [R60.0] INVALID FOR* Priority: A Carpal tunnel syndrome [G56.00] INVALID FOR* Priority: M Essential hypertension, benign [I10] INVALID FOR* Priority: A More... Insomnia, unspecified [G47.00] INVALID FOR* Priority: B More... Benign neoplasm of rectum and anal canal [D12.8*INVALID FOR* Priority: C Diverticulosis of colon (without mention of hem*INVALID FOR* Priority: C Hypertrophy of nasal turbinates [J34.3] INVALID FOR* Priority: C More... 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 More... More... EDMOND (obstructive sleep apnea) [G47.33] INVALID FOR* Priority: B More... Mobitz (type) I (Wenckebach's) atrioventricular*INVALID FOR* Priority: A More... More... Mixed hyperlipidemia [E78.2] INVALID FOR* Priority: A More... DVT prophylaxis [[id number]] INVALID FOR*07/26/2014 More... More... More... More... More... More... Bradycardia [R00.1] INVALID FOR* Priority: A More... Venous stasis dermatitis of both lower extremit*INVALID FOR* Priority: B Counseling and coordination of care [Z71.89] INVALID FOR*04/12/2015 More... Hypomagnesemia [E83.42] INVALID FOR* Priority: B Diabetic eye exam (HCC) [E11.9, Z01.00] INVALID FOR* Priority: A More... Dry mouth [R68.2] INVALID FOR* Priority: B Noncompliance [Z91.19] INVALID FOR* Gastroesophageal reflux disease without esophag*INVALID FOR* Priority: A Coronary atherosclerosis due to lipid rich plaq*INVALID FOR* Priority: A Morbid obesity due to excess calories (HCC) [E6*INVALID FOR* Priority: B More... Essential tremor [G25.0] INVALID FOR* Priority: B Chronic cough [R05] INVALID FOR* Priority: B Well adult exam [Z00.00] INVALID FOR* Priority: E More... Controlled type 2 diabetes mellitus with diabet*INVALID FOR* Priority: A Depression [F32.9] INVALID FOR* Priority: A Multiple open wounds of lower leg [S81.809A] INVALID FOR* Priority: D Colon cancer screening [Z12.11] INVALID FOR* Chest pain [R07.9] INVALID FOR* Priority: B More... Second degree heart block [I44.1] INVALID FOR* Priority: A More... Atherosclerosis of coronary artery bypass graft*INVALID FOR* Priority: A More... More... More... More... Hypoxia [R09.02] INVALID FOR* Chronic bilateral low back pain with left-sided*INVALID FOR* Priority: M Bilateral hip pain [M25.551, M25.552] INVALID FOR* Priority: M Paroxysmal atrial fibrillation (HCC) [I48.0] INVALID FOR* Priority: A More... 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 Right carpal tunnel syndrome [G56.01] INVALID FOR* Priority: M More... Presence of cardiac pacemaker [Z95.0] INVALID FOR* Priority: B Esophagitis [K20.9] INVALID FOR* Albuminuria [R80.9] INVALID FOR* Priority: A Carpal tunnel syndrome, bilateral [G56.03] INVALID FOR* Priority: M More... Ulnar nerve compression, right [G56.21] INVALID FOR* Priority: M More... Current use of proton pump inhibitor [Z79.899] INVALID FOR* Encounter Status:Closed by RUDDY CHAVEZ MD on 10/21/17 PROGRESS Observed: 10/18/2017 Status: COMPLETED Source: [place] 11:45 AM [facility] HNO ID: [id number] Author: Rebecca Markham) Tommy Service: (none) Author Type: Registered Dietitian Type: Progress Notes Filed: 10/18/2017 12:19 PM Note Text: Nutritional Therapy: Re-Assessment PAIN: Is the patient having any pain that is interfering with oral / enteral intake? No 0 on a scale of 0 to 10 PROGRESS: Nutrition Intervention (date of last encounter 08/09/17): 1. No concentrated sweets, no juice, no regular pop 2. Follow an 1800 calorie, heart healthy diet (low saturated fat, low cholesterol, 2-3 gram sodium diet, high fiber-at least 20 grams daily) 3. If able add some exercise most days (payton [place]) CHANGES IN TREATMENT: Patient met goal(s): No Actions to implement interventions: Walking outside 2-3 x per week (2 blocks) Diet History: 3 meals and no snacks Meals provided by center-making changes as able CLINICAL IMPRESSIONS: fair REVISIONS IN DIAGNOSIS: Diagnosis: has not changed. Allergies: Lisinopril; Sertraline Medications: Current Outpatient Prescriptions: oxybutynin (DITROPAN) 5 mg tablet Take 1 tablet by mouth three times daily. Disp: 90 tablet Rfl: 11 glimepiride (AMARYL) 1 mg tablet Take 1 tablet by mouth daily with breakfast. Disp: 90 tablet Rfl: 3 metoprolol tartrate, short acting, (LOPRESSOR) 25 mg tablet Take 1 tablet by mouth every 12 hours. Disp: 180 tablet Rfl: 3 rivaroxaban (XARELTO) 20 mg tablet Take 1 tablet by mouth daily with dinner. Disp: 30 tablet Rfl: 11 ketoconazole (NIZORAL) 2 % shampoo Use as a body wash, most specifically the chest, daily for itching and flaking; may keep in own shower Disp: 340 mL Rfl: 6 triamcinolone acetonide (KENALOG) 0.1 % cream Apply to itching rash on chest twice daily ONLY when needed; may keep in room Disp: 454 g Rfl: 2 atorvastatin (LIPITOR) 80 mg tablet Take 1 tablet by mouth once daily. Disp: 90 tablet Rfl: 3 tamsulosin ER (FLOMAX) 0.4 mg cp24 Take 1 capsule by mouth every evening. for prostate Disp: 90 capsule Rfl: 3 metFORMIN (GLUCOPHAGE) 500 mg tablet Take 1 tablet by mouth three times daily with meals. Disp: 270 tablet Rfl: 3 nitroglycerin sublingual (NITROSTAT) 0.4 mg SL tablet Take 1 tablet by mouth as needed. for chest pain; dissolve on tongue. If no pain relief call 911. Disp: 2 Bottle of 25 Rfl: 5 traZODone (DESYREL) 50 mg tablet Take 1 tablet by mouth at bedtime as needed (sedation). Disp: 15 tablet Rfl: 5 Ranitidine HCl 300 mg tablet Take with evening meal. Disp: 30 tablet Rfl: 5 magnesium oxide (MAG-OX) 400 mg tablet Take 1 tablet by mouth once daily. Disp: 90 tablet Rfl: 3 docusate sodium (DOC-Q-LACE) 100 mg capsule Take 1 capsule by mouth once daily. Disp: 90 capsule Rfl: 1 furosemide (LASIX) 80 mg tablet One PO daily in AM Disp: 90 tablet Rfl: 1 sucralfate (CARAFATE) 1 gram tablet Take 1 tablet by mouth three times daily before meals. 30 minutes before meals. Disp: 90 tablet Rfl: 6 COMPOUNDED PRESCRIPTION Please eval and fix any issues with walker.Dx: I50.33, I25.10, E66.01, M54.42, M25.551 Disp: 1 Device Rfl: [address] (PROTONIX) 40 mg tablet Take 1 tablet by mouth daily before breakfast. Take on empty stomach, 1/2 hr before meal. Per Gastroenterology Disp: Rfl: 0 bisacodyl (DULCOLAX) 10 mg supp 1 Suppository by RECTAL route once daily as needed (for constipation). Disp: Rfl: 0 polyethylene glycol 3350 (MIRALAX, GLYCOLAX) 17 gram/dose powder 17 g up to twice daily as needed prn constipation Disp: Rfl: 0 aspirin, enteric coated (ADULT LOW DOSE ASPIRIN) 81 mg EC tablet Take 1 tablet by mouth once daily. Disp: 90 tablet Rfl: 3 furosemide (LASIX) 40 mg tablet One PO daily at dinner Disp: Rfl: COMPOUNDED PRESCRIPTION Glucometer high/low test solution for accucheck. DX: DM Disp: 1 Bottle Rfl: 3 COMPOUNDED PRESCRIPTION Please perform a nocturnal oximetry on room air on BiPAP. Diagnosis: HypoxiaPlease fax results to [phone] Attn: Glendy Disp: 1 Each Rfl: 0 Lancets (ACCU-CHEK FASTCLIX) lancets Test glucose twice weekly. Dx: 250.00. Insulin Use: no Disp: 100 Each Rfl: 11 blood sugar diagnostic test strip testing twice weekly dx 250.00 insulin no Disp: 50 Strip Rfl: 12 Blood-Glucose Meter, Drum-type (ACCU-CHEK COMPACT PLUS CARE) kit Test fasting blood sugar 1-2 times a week and 2 hrs post meal 1- 2 times a week. Disp: 1 Kit Rfl: 0 Blood-Glucose Meter (ONETOUCH ULTRA 2) monitoring kit 1 Each as needed. One Touch Meter Kit Diagnosis: Diabetes Mellitus Disp: 1 Each Rfl: 0 Blood Glucose Control, Normal (OT ULTRA/FASTTRACK CONTROL) soln Test controls as needed. Disp: 1 Each Rfl: 3 COMPOUNDED PRESCRIPTION BIPAP setting: IPAP 22cm water with heated humidification EPAP setting of 16cm with supplemental oxygen bleed in at 2lt per minute. Mask (per patient preference) and supplies for lifetime. Please add chin strap DX EDMOND 327.23 Disp: 1 Act Rfl: 99 No current facility-administered medications for this visit. (currently taking) Anthropometrics: Height: Last 1 Encounter Ht Readings: Date: Ht: 10/18/2017 182.9 cm (6') Current weight: Last 1 Encounter Wt Readings: Date: Wt: 10/18/2017 153.8 kg (339 lb) Body mass index is 45.98 kg/(m2). Resting Metabolic Rate: 2310 NUTRITION ASSESSMENT: Malnutrition Screening Significant unintentional weight loss? No Eating less than 75% of usual intake for more than 2 weeks? No RECOMMENDED MALNUTRITION DIAGNOSIS: NO MALNUTRITION IDENTIFIED Educational materials provided: none this visit READINESS TO LEARN Cognitive ability: Alert and oriented Motivation to learn: Interested Family support: Unable to assess - Family not present Instruction provided to: Patient Patient learns best by: Individual Instruction Factors affecting learning: None Physical limitations affecting learning: None Likelihood of Adherence: Moderate Patient presents for initial MNT as relates to weight control. Diabetes, HTN, dyslipidemia, CAD, CHF, dysphagia, GERD. Is in assisted living, meals provided by facility. Includes salads often, now avoiding sugar beverages . Making adjustments to foods as able to follow recommendations. Has lost 20 pounds since last visit, has increased exercise and walking outside 2-3 x per week. Blood sugars improving (limited checks) described extreme hunger and weakness mid morning, quetsion low blood sugars at this time .Checking blood sugars twice per week , one fasting (usually 749/121/745, did have one at 166) one 2hrpp (110/120/112/134) Nutrition Diagnosis: Overweight Obesity, related to; excess energy intake and physical inactivity, as evidenced by BMI above normative standard for age and gender. Nutrition Intervention 10/18/2017: modify type and amount of food or beverage 1. Increase walking to 3-4 x per week; if able add 2-3 days of weight resistance exercise 2. Have blood sugar checked when feeling low (~10) ;if have low feelings include lean protein at breakfast and WHOLE GRAIN carb 3. All beverages calorie free and sugar free Nutrition Monitoring AND Evaluation: 1-2 pound weight loss per week Criteria: patient update Need for Follow up: 4-6 weeks Referred/Supervised by: Carolyn/Azul DESOUZAT Billing Type: Re-assess/15 min 2 units SIGNATURE: Rebecca Sanders MS RD LD PATIENT NAME: Mayco Mccrary DATE: October 18, 2017 TIME: 11:45 AM CNCNPATED Observed: 10/18/2017 Status: COMPLETED Source: [place] 11:45 AM [facility] REPOSITORY Education (NUTRWS) MAYCO KENDRICK ([id number]) 1940 M NFR Date Time Provider Department 10/18/17 11:45 AM BODY ENGINEER [facility] NUTRWS Reason for Visit: Patient Education [91] Reassessment [674] Progress Notes: Rebecca Sanders, MS RD LD 10/18/2017 12:19 PM Signed Nutritional Therapy: Re-Assessment PAIN: Is the patient having any pain that is interfering with oral / enteral intake? No 0 on a scale of 0 to 10 PROGRESS: Nutrition Intervention (date of last encounter 08/09/17): 1. No concentrated sweets, no juice, no regular pop 2. Follow an 1800 calorie, heart healthy diet (low saturated fat, low cholesterol, 2-3 gram sodium diet, high fiber-at least 20 grams daily) 3. If able add some exercise most days (payton [place]) CHANGES IN TREATMENT: Patient met goal(s): No Actions to implement interventions: Walking outside 2-3 x per week (2 blocks) Diet History: 3 meals and no snacks Meals provided by center-making changes as able CLINICAL IMPRESSIONS: fair REVISIONS IN DIAGNOSIS: Diagnosis: has not changed. Allergies: Lisinopril; Sertraline Medications: Current Outpatient Prescriptions: oxybutynin (DITROPAN) 5 mg tablet Take 1 tablet by mouth three times daily. Disp: 90 tablet Rfl: 11 glimepiride (AMARYL) 1 mg tablet Take 1 tablet by mouth daily with breakfast. Disp: 90 tablet Rfl: 3 metoprolol tartrate, short acting, (LOPRESSOR) 25 mg tablet Take 1 tablet by mouth every 12 hours. Disp: 180 tablet Rfl: 3 rivaroxaban (XARELTO) 20 mg tablet Take 1 tablet by mouth daily with dinner. Disp: 30 tablet Rfl: 11 ketoconazole (NIZORAL) 2 % shampoo Use as a body wash, most specifically the chest, daily for itching and flaking; may keep in own shower Disp: 340 mL Rfl: 6 triamcinolone acetonide (KENALOG) 0.1 % cream Apply to itching rash on chest twice daily ONLY when needed; may keep in room Disp: 454 g Rfl: 2 atorvastatin (LIPITOR) 80 mg tablet Take 1 tablet by mouth once daily. Disp: 90 tablet Rfl: 3 tamsulosin ER (FLOMAX) 0.4 mg cp24 Take 1 capsule by mouth every evening. for prostate Disp: 90 capsule Rfl: 3 metFORMIN (GLUCOPHAGE) 500 mg tablet Take 1 tablet by mouth three times daily with meals. Disp: 270 tablet Rfl: 3 nitroglycerin sublingual (NITROSTAT) 0.4 mg SL tablet Take 1 tablet by mouth as needed. for chest pain; dissolve on tongue. If no pain relief call 911. Disp: 2 Bottle of 25 Rfl: 5 traZODone (DESYREL) 50 mg tablet Take 1 tablet by mouth at bedtime as needed (sedation). Disp: 15 tablet Rfl: 5 Ranitidine HCl 300 mg tablet Take with evening meal. Disp: 30 tablet Rfl: 5 magnesium oxide (MAG-OX) 400 mg tablet Take 1 tablet by mouth once daily. Disp: 90 tablet Rfl: 3 docusate sodium (DOC-Q-LACE) 100 mg capsule Take 1 capsule by mouth once daily. Disp: 90 capsule Rfl: 1 furosemide (LASIX) 80 mg tablet One PO daily in AM Disp: 90 tablet Rfl: 1 sucralfate (CARAFATE) 1 gram tablet Take 1 tablet by mouth three times daily before meals. 30 minutes before meals. Disp: 90 tablet Rfl: 6 COMPOUNDED PRESCRIPTION Please eval and fix any issues with walker.Dx: I50.33, I25.10, E66.01, M54.42, M25.551 Disp: 1 Device Rfl: [address] (PROTONIX) 40 mg tablet Take 1 tablet by mouth daily before breakfast. Take on empty stomach, 1/2 hr before meal. Per Gastroenterology Disp: Rfl: 0 bisacodyl (DULCOLAX) 10 mg supp 1 Suppository by RECTAL route once daily as needed (for constipation). Disp: Rfl: 0 polyethylene glycol 3350 (MIRALAX, GLYCOLAX) 17 gram/dose powder 17 g up to twice daily as needed prn constipation Disp: Rfl: 0 aspirin, enteric coated (ADULT LOW DOSE ASPIRIN) 81 mg EC tablet Take 1 tablet by mouth once daily. Disp: 90 tablet Rfl: 3 furosemide (LASIX) 40 mg tablet One PO daily at dinner Disp: Rfl: COMPOUNDED PRESCRIPTION Glucometer high/low test solution for accucheck. DX: DM Disp: 1 Bottle Rfl: 3 COMPOUNDED PRESCRIPTION Please perform a nocturnal oximetry on room air on BiPAP. Diagnosis: HypoxiaPlease fax results to [phone] Attn: Glendy Disp: 1 Each Rfl: 0 Lancets (ACCU-CHEK FASTCLIX) lancets Test glucose twice weekly. Dx: 250.00. Insulin Use: no Disp: 100 Each Rfl: 11 blood sugar diagnostic test strip testing twice weekly dx 250.00 insulin no Disp: 50 Strip Rfl: 12 Blood-Glucose Meter, Drum-type (ACCU-CHEK COMPACT PLUS CARE) kit Test fasting blood sugar 1-2 times a week and 2 hrs post meal 1-2 times a week. Disp: 1 Kit Rfl: 0 Blood-Glucose Meter (ONETOUCH ULTRA 2) monitoring kit 1 Each as needed. One Touch Meter Kit Diagnosis: Diabetes Mellitus Disp: 1 Each Rfl: 0 Blood Glucose Control, Normal (OT ULTRA/FASTTRACK CONTROL) soln Test controls as needed. Disp: 1 Each Rfl: 3 COMPOUNDED PRESCRIPTION BIPAP setting: IPAP 22cm water with heated humidification EPAP setting of 16cm with supplemental oxygen bleed in at 2lt per minute. Mask (per patient preference) and supplies for lifetime. Please add chin strap DX EDMOND 327.23 Disp: 1 Act Rfl: 99 No current facility-administered medications for this visit. (currently taking) Anthropometrics: Height: Last 1 Encounter Ht Readings: Date: Ht: 10/18/2017 182.9 cm (6') Current weight: Last 1 Encounter Wt Readings: Date: Wt: 10/18/2017 153.8 kg (339 lb) Body mass index is 45.98 kg/(m2). Resting Metabolic Rate: 2310 NUTRITION ASSESSMENT: Malnutrition Screening Significant unintentional weight loss? No Eating less than 75% of usual intake for more than 2 weeks? No RECOMMENDED MALNUTRITION DIAGNOSIS: NO MALNUTRITION IDENTIFIED Educational materials provided: none this visit READINESS TO LEARN Cognitive ability: Alert and oriented Motivation to learn: Interested Family support: Unable to assess - Family not present Instruction provided to: Patient Patient learns best by: Individual Instruction Factors affecting learning: None Physical limitations affecting learning: None Likelihood of Adherence: Moderate Patient presents for initial MNT as relates to weight control. Diabetes, HTN, dyslipidemia, CAD, CHF, dysphagia, GERD. Is in assisted living, meals provided by facility. Includes salads often, now avoiding sugar beverages . Making adjustments to foods as able to follow recommendations. Has lost 20 pounds since last visit, has increased exercise and walking outside 2-3 x per week. Blood sugars improving (limited checks) described extreme hunger and weakness mid morning, quetsion low blood sugars at this time .Checking blood sugars twice per week , one fasting (usually 749/121/745, did have one at 166) one 2hrpp (110/120/112/134) Nutrition Diagnosis: Overweight Obesity, related to; excess energy intake and physical inactivity, as evidenced by BMI above normative standard for age and gender. Nutrition Intervention 10/18/2017: modify type and amount of food or beverage 1. Increase walking to 3-4 x per week; if able add 2-3 days of weight resistance exercise 2. Have blood sugar checked when feeling low (~10) ;if have low feelings include lean protein at breakfast and WHOLE GRAIN carb 3. All beverages calorie free and sugar free Nutrition Monitoring AND Evaluation: 1-2 pound weight loss per week Criteria: patient update Need for Follow up: 4-6 weeks Referred/Supervised by: Carolyn/Azul NOBLE Billing Type: Re-assess/15 min 2 units SIGNATURE: MS UYEN Jeffries PATIENT NAME: Mayco Kendrick DATE: October 18, 2017 TIME: 11:45 AM MS UYEN Jeffries 10/18/2017 12:10 PM Signed 1. Increase walking to 3-4 x per week; if able add 2-3 days of weight resistance exercise 2. Have blood sugar checked when feeling low (~10) ;if have low feelings include lean protein at breakfast and WHOLE GRAIN carb 3. All beverages calorie free and sugar free Other instructions from your clinician: 1. Increase walking to 3-4 x per week; if able add 2-3 days of weight resistance exercise 2. Have blood sugar checked when feeling low (~10) ;if have low feelings include lean protein at breakfast and WHOLE GRAIN carb 3. 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 SERTRALINE 05/02/2013 8 - GI Upset Date Reviewed: 10/18/2017 Reviewed by: Rebecca (Uyen) Tommy - Fully Assessed Prescriptions as of 10/18/2017 Sig: OXYBUTYNIN CHLORIDE 5 MG TABL* Take 1 tablet by mouth three * GLIMEPIRIDE 1 MG TABLET Take 1 tablet by mouth daily * METOPROLOL TARTRATE 25 MG TAB* Take 1 tablet by mouth every * RIVAROXABAN 20 MG TABLET Take 1 tablet by mouth daily * KETOCONAZOLE 2 % SHAMPOO Use as a body wash, most spec* TRIAMCINOLONE ACETONIDE 0.1 %* Apply to itching rash on ches* ATORVASTATIN 80 MG TABLET Take 1 tablet by mouth once d* TAMSULOSIN 0.4 MG CAPSULE Take 1 capsule by mouth every* METFORMIN 500 MG TABLET Take 1 tablet by mouth three * NITROGLYCERIN 0.4 MG SUBLINGU* Take 1 tablet by mouth as nee* TRAZODONE 50 MG TABLET Take 1 tablet by mouth at bed* RANITIDINE 300 MG TABLET Take with evening meal. MAGNESIUM OXIDE 400 MG TABLET Take 1 tablet by mouth once d* DOCUSATE SODIUM 100 MG CAPSULE Take 1 capsule by mouth once * FUROSEMIDE 80 MG TABLET One PO daily in AM SUCRALFATE 1 GRAM TABLET Take 1 tablet by mouth three * COMPOUNDED PRESCRIPTION Please eval and fix any issue* PANTOPRAZOLE 40 MG TABLET,DEL* Take 1 tablet by mouth daily * BISACODYL 10 MG RECTAL SUPPOS* 1 Suppository by RECTAL route* POLYETHYLENE GLYCOL 3350 17 G* 17 g up to twice daily as nee* ASPIRIN 81 MG TABLET,DELAYED * Take 1 tablet by mouth once d* FUROSEMIDE 40 MG TABLET One PO daily at dinner COMPOUNDED PRESCRIPTION Glucometer high/low test solu* COMPOUNDED PRESCRIPTION Please perform a nocturnal ox* LANCETS Test glucose twice weekly. Dx* BLOOD SUGAR DIAGNOSTIC STRIPS testing twice weekly dx 250* BLOOD-GLUCOSE METER, DRUM-TYP* Test fasting blood sugar 1-2 * BLOOD-GLUCOSE METER KIT 1 Each as needed. One Touch M* BLOOD GLUCOSE CONTROL, NORMAL* Test controls as needed. * COMPOUNDED PRESCRIPTION BIPAP setting: IPAP 22cm wate* Encounter Status:Closed by TOMMY JUNIOR, REBECCA on 10/18/17 PROGRESS Observed: 10/04/2017 Status: COMPLETED Source: [place] 4:23 PM [facility] REPOSITORY O ID: [id number] Author: Joan Noe (Pa) Service: (none) Author Type: Physician Budget Officer Type: Progress Notes Filed: 10/04/2017 4:40 PM Note Text: Joan Noe PA-C Department of Orthopaedics [facility] [address] [facility] [address] Dept: [phone] Dept October 04, 2017 CHIEF COMPLAINT: Established Patient (Left hip and knee pain - last seen 09/20/17 S/P right ulnar nerve decompression and right CTR on 09-10) Mr. Mayco Kendrick is a 77 year old male he presents left hip and knee pain for the past 2 weeks. Pain is 5/10 sharp stabbing that is worse with walking or over activity. Last week he had swelling of his left knee that has resolved over the past week, knee pain medial. Pain in his hip is lateral and radiates down his leg to the lateral aspect of his knee. Pain is accompanied by some numbness and zinging along his lateral thigh. Patient had remote bilateral hip arthroplasty [address] Nation at [facility]. Patient denies hip or knee injury. Her admits to being rather sedentary following an open gallbladder surgery about 2 years ago. He is unable to take antiinflammatories secondary to anticoagulation. Patient was seeing a spine doctor in the past for low back injections, found them to be very helpful but the physician moved his practice. ASSESSMENT: M17.12 Primary osteoarthritis of left knee (primary encounter diagnosis) M54.32 Sciatic nerve pain, left R73.09 Elevated random blood glucose level M25.562 Acute pain of left knee PLAN: His exam and pain in hip that radiates down the lateral aspect of his leg is consistent with sciatica. Patient resides in an assisted living and is able to have physical therapy visit. We will place an order for PT. We discussed placing a referral to spine if his sciatica persists. Patient would like to proceed with left knee cortisone injection today. He is a diabetic, he tells me his assisted living checks his blood glucose twice per week. We will place order to have blood sugars checked twice per day for next week to watch for rise in BP with cortisone injection. Mr. Mayco Kendrick was advised as to contrast therapies and/or to take analgesics/anti-inflammatories as needed and all contraindications were reviewed. OBJECTIVE: Mr. Mayco Kendrick is a pleasant 77 year old in no apparent distress. Gen:There were no vitals taken for this visit. nl development, obese, no deformities ENT: Normocephalic, normal hearing, moist mucosa CV: Pulses:DP/PT= 2+ and symmetric, capillary refill < 2 secs, no peripheral edema/varicosities Skin: no rash, bruising or lesions. Good turgor. Psych: cooperative and appropriate, alert and oriented x 3, good mood and affect. Musculoskeletal: KNEE EXAM: Left: Alignment: Varus deformity, Partially Correctable Range of motion is 3 degrees in extension and 110 degrees of flexion. Extension Lag: < 10 degrees Pain with ROM: No Effusion: Slight Tender to the palpation of Medial femoral condyle and Medial joint line Pain with patellar compression: No Stability: Anterior/Posterior stable and Varus/Valgus stable Neurovascular Status: Sensation Intact, Moves foot and ankle up AND down and 2+ dorsalis pedis HIP EXAM: Left: ROM: Extension: slight flexion contracture Flexion: 90 degrees Internal Rotation: 25 degrees External Rotation: 30 degrees Abduction: 15 degrees Adduction: 5 degrees Strength: Abduction 5/5 and Flexion 5/5 Palpation: Tenderness over left SI joint Log roll: painful. Straight leg raise: Positive, reproducing radicular symptoms Neurovascular Status: Sensation Intact, Moves foot and ankle up AND down and 2+ dorsalis pedis Procedure note: The risk, benefits and alternatives of injection and no injection therapy were discussed. The patient consented for an injection. Time out was conducted. The injection site was prepped with a Chlorhexadine swab. The left Superolateral joint was injected with a 25 gauge needle with 1 cc (6 mg) Celestone, 5 cc Lidocaine 1% Plain. The injection site was then dressed with a bandaid. The patient tolerated the injection well. The patient was instructed to call the office if any adverse local effects occurred or any if any questions or concerns arise. Joan Noe PA-C Imaging: IMPRESSION: 1. ?STATUS POST TOTAL LEFT HIP ARTHROPLASTY WITHOUT COMPLICATIONS. 2. ?DEGENERATIVE CHANGES OF THE LOWER LUMBAR SPINE. Librarian Head: PHILIP ? Transcribe Date/Time: Oct 04 2017 ?3:23P Dictated by : MAXIMINO NOGUERA MD This examination was interpreted and the report reviewed and electronically signed by: MAXIMINO NOGUERA MD on Oct 04 2017 ?3:25PM ?EST Results-Findings * * *Final Report* * * DATE OF EXAM: Oct 04 2017 ?2:22PM ? WRX ? [id number] ?- ?XR HIP 3V PELV+ AP/LAT LT ?/ PROCEDURE REASON: Pain in left hip ?? ? * * * * Physician Interpretation * * * * ?EXAMINATION: ?XR HIP 3V PELV+ AP/LAT LT HISTORY: ? Generalized hip pain without injury. Hx of SAQIB x 20 years ago. ?Pain in left hip ? . TECHNIQUE: ?XR HIP 3V PELV+ AP/LAT LT ?? Laterality: ?LEFT ?? Number of different views (projections): 3 ?? M: ?XB_1 COMPARISON: ?None. RESULT: The patient is status post total left hip arthroplasty. ?Orthopedic hardware is intact and there is no evidence of hardware loosening or periprosthetic fracture. ?The alignment of the hardware components is satisfactory. ?Heterotopic ossification about the hip joint. There is partial visualization of right hip arthroplasty. ?Degenerative changes of the sacroiliac joints, symphysis pubis, and lower lumbar spine. ?No lytic or blastic osseous lesion. ?Surgical clips are seen in the left inguinal region. IMPRESSION: Findings as detailed in report. Librarian Head: PSCB ? Transcribe Date/Time: Oct 04 2017 ?2:33P Dictated by : ESE READ MD This examination was interpreted and the report reviewed and electronically signed by: ESE READ MD on Oct 04 2017 ?2:37PM ?EST Results-Findings * * *Final Report* * * DATE OF EXAM: Oct 04 2017 ?2:22PM ? WRX ? [id number] ?- ?XR KNEE 4V AP/PA BOTH+LAT/ART LT ?/ PROCEDURE REASON: Pain in left knee ?? ? * * * * Physician Interpretation * * * * ?HISTORY: Left knee pain COMPARISON: There are no prior relevant examinations available for comparison. RESULT: Standing frontal radiographs of the bilateral knees with a lateral and sunrise view the left knee show no acute osseous or articular process. Bony structures are osteopenic with subtle narrowing of the medial tibiofemoral joint compartment on the left best seen on the PA flexion view. ?There is mild intercondylar and patellar spurring with mild narrowing of the medial left patellofemoral joint space. ?There is no abnormal joint fluid. Supporting Subjective Information Below: Past Surgical History: PAST SURGICAL HISTORY Procedure Laterality Date - CABG, ARTERY-VEIN, TWO 1998 CABG, two grafts - CHOLECYSTECTOMY HX 10/14/2015 gangrenous gallbladder - COLONOSCOP W/ OR W/O BRSH SPEC 01/27/2005 Colonoscopy - COLONOSCOP W/ OR W/O BRSH SPEC 12/21/2006` repeat in -2011 - COLONOSCOP W/ OR W/O BRSH SPEC 05/18/2012 Colonoscopy repeat 5 years - COLONOSCOPY 12/29/2016 repeat 10 yrs - EGD 12/29/2016 - EGD W/O BRS SPECIMEN W/BX 12/21/06 - EGD W/O OR W/BRUSH/WASH 01/27/2005 EGD - EGD W/O OR W/BRUSH/WASH 11/21/14 EGD - OPEN CORONARY ENDARTERECTOMY 1999 Angioplasty with stent placement - PACEMAKER 2016 - REMOVAL OF TONSILS,<12 Y/O Tonsillectomy - REPAIR RETINAL DETACH, 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 ketoconazole (NIZORAL) 2 % shampoo Use as a body wash, most specifically the chest, daily for itching and flaking; may keep in own shower triamcinolone acetonide (KENALOG) 0.1 % cream Apply to itching rash on chest twice daily ONLY when needed; may keep in room metoprolol tartrate, short acting, (LOPRESSOR) 25 mg tablet Take 1 tablet by mouth every 12 hours. atorvastatin (LIPITOR) 80 mg tablet Take 1 tablet by mouth once daily. tamsulosin ER (FLOMAX) 0.4 mg cp24 Take 1 capsule by mouth every evening. for prostate metFORMIN (GLUCOPHAGE) 500 mg tablet Take 1 tablet by mouth three times daily with meals. nitroglycerin sublingual (NITROSTAT) 0.4 mg SL tablet Take 1 tablet by mouth as needed. for chest pain; dissolve on tongue. If no pain relief call 911. traZODone (DESYREL) 50 mg tablet Take 1 tablet by mouth at bedtime as needed (sedation). Ranitidine HCl 300 mg tablet Take with evening meal. magnesium oxide (MAG-OX) 400 mg tablet Take 1 tablet by mouth once daily. docusate sodium (DOC-Q-LACE) 100 mg capsule Take 1 capsule by mouth once daily. furosemide (LASIX) 80 mg tablet One PO daily in AM sucralfate (CARAFATE) 1 gram tablet Take 1 tablet by mouth three times daily before meals. 30 minutes before meals. COMPOUNDED PRESCRIPTION Please eval and fix any issues with walker.Dx: I50.33, I25.10, E66.01, M54.42, M25.551 glimepiride (AMARYL) 1 mg tablet Take 1 tablet by mouth daily with breakfast. pantoprazole DR (PROTONIX) 40 mg tablet Take 1 tablet by mouth daily before breakfast. Take on empty stomach, 1/2 hr before meal. Per Gastroenterology bisacodyl (DULCOLAX) 10 mg supp 1 Suppository by RECTAL route once daily as needed (for constipation). polyethylene glycol 3350 (MIRALAX, GLYCOLAX) 17 gram/dose powder 17 g up to twice daily as needed prn constipation oxybutynin (DITROPAN) 5 mg tablet Take 5 mg by mouth three times daily. aspirin, enteric coated (ADULT LOW DOSE ASPIRIN) 81 mg EC tablet Take 1 tablet by mouth once daily. furosemide (LASIX) 40 mg tablet One PO daily at dinner COMPOUNDED PRESCRIPTION Glucometer high/low test solution for accucheck. DX: DM COMPOUNDED PRESCRIPTION Please perform a nocturnal oximetry on room air on BiPAP. Diagnosis: HypoxiaPlease fax results to [phone] Attn: Glendy Lancets (ACCU-CHEK FASTCLIX) lancets Test glucose twice weekly. Dx: 250.00. Insulin Use: no blood sugar diagnostic test strip testing twice weekly dx 250.00 insulin no Blood-Glucose Meter, Drum-type (ACCU-CHEK COMPACT PLUS CARE) kit Test fasting blood sugar 1-2 times a week and 2 hrs post meal 1- 2 times a week. Blood-Glucose Meter (ONETOUCH ULTRA 2) monitoring kit 1 Each as needed. One Touch Meter Kit Diagnosis: Diabetes Mellitus Blood Glucose Control, Normal (OT ULTRA/FASTTRACK CONTROL) soln Test controls as needed. COMPOUNDED PRESCRIPTION BIPAP setting: IPAP 22cm water with heated humidification EPAP setting of 16cm with supplemental oxygen bleed in at 2lt per minute. Mask (per patient preference) and supplies for lifetime. Please add chin strap DX EDMOND 327.23 No current facility-administered medications for this visit. Allergies: Lisinopril; Sertraline ROS: General (negative for fatigue, malaise, weight loss/gain) HEENT (negative for headache, earache, recent vision changes, sinus pain, sore throat) Respiratory (no recent shortness of breath, hemoptysis) CV (negative for chest tightness, palpitations) Musculoskeletal (see HPI) Psych (no depression, anxiety) This note was partially generated using Cellay voice recognition system, and there may be some incorrect words, spellings, and punctuation that were not noted in checking the note before saving. Joan Noe PA-C PROGRESS Observed: 10/04/2017 Status: COMPLETED Source: [place] 2:37 PM [facility] REPOSITORY HNO ID: [id number] Author: Michaela Juares Ma Service: (none) Author Type: (none) Type: Progress Notes Filed: 10/04/2017 4:40 PM Note Text: Patient presents with: Established Patient: Left hip and knee pain - last seen 09/20/17 S/P right ulnar nerve decompression and right CTR on 09-10 AMB ROOMING INTAKE FLOWSHEET DATA Risk Screening Do you have concerns about personal safety or safety in the home?: No Pain Pain Score: (Hip - 5, Knee - 3) Pain Location: (Left hip and knee pain) Description: Sharp Duration Amount of Time: 2 Duration Units: Weeks Frequency: Intermittent Patient states he is having pain that is radiating from his left knee to his hip on the lateral aspect. Patient states the pain can travel into his groin. Patient had bilateral hip replacements at [facility] by Dr. Nation 20 years ago. No specific injury. Tried taking Tylenol for the pain and states it did not help. Has been taking nothing for the pain. Patient had x-ray done today prior to appointment. XR KNEE 4V AP/PA Observed: 10/04/2017 Status: F Source: [place] BOTH+LAT/ART LT 2:22 PM [facility] REPOSITORY * * *Final Report* * * DATE OF EXAM: Oct 04 2017 2:22PM WRX [id number] - XR KNEE 4V AP/PA BOTH+LAT/ART LT / PROCEDURE REASON: Pain in left knee * * * * Physician Interpretation * * * * HISTORY: Left knee pain COMPARISON: There are no prior relevant examinations available for comparison. RESULT: Standing frontal radiographs of the bilateral knees with a lateral and sunrise view the left knee show no acute osseous or articular process. Bony structures are osteopenic with subtle narrowing of the medial tibiofemoral joint compartment on the left best seen on the PA flexion view. There is mild intercondylar and patellar spurring with mild narrowing of the medial left patellofemoral joint space. There is no abnormal joint fluid. IMPRESSION: Findings as detailed in report. Librarian Head: PSCB Transcribe Date/Time: Oct 04 2017 2:33P Dictated by : ESE READ MD This examination was interpreted and the report reviewed and electronically signed by: ESE READ MD on Oct 04 2017 2:37PM EST [id number] XR HIP 3V PELV+ Observed: 10/04/2017 Status: F Source: [place] AP/LAT LT 2:22 PM [facility] REPOSITORY * * *Final Report* * * DATE OF EXAM: Oct 04 2017 2:22PM WRX [id number] - XR HIP 3V PELV+ AP/LAT LT / PROCEDURE REASON: Pain in left hip * * * * Physician Interpretation * * * * EXAMINATION: XR HIP 3V PELV+ AP/LAT LT HISTORY: Generalized hip pain without injury. Hx of SAQIB x 20 years ago. Pain in left hip . TECHNIQUE: XR HIP 3V PELV+ AP/LAT LT Laterality: LEFT Number of different views (projections): 3 M: XB_1 COMPARISON: None. RESULT: The patient is status post total left hip arthroplasty. Orthopedic hardware is intact and there is no evidence of hardware loosening or periprosthetic fracture. The alignment of the hardware components is satisfactory. Heterotopic ossification about the hip joint. There is partial visualization of right hip arthroplasty. Degenerative changes of the sacroiliac joints, symphysis pubis, and lower lumbar spine. No lytic or blastic osseous lesion. Surgical clips are seen in the left inguinal region. IMPRESSION: 1. STATUS POST TOTAL LEFT HIP ARTHROPLASTY WITHOUT COMPLICATIONS. 2. DEGENERATIVE CHANGES OF THE LOWER LUMBAR SPINE. Librarian Head: PSCB Transcribe Date/Time: Oct 04 2017 3:23P Dictated by : MAXIMINO NOGUERA MD This examination was interpreted and the report reviewed and electronically signed by: MAXIMINO NOGUERA MD on Oct 04 2017 3:25PM EST [id number] PROGRESS Observed: 10/04/2017 Status: COMPLETED Source: [place] 1:51 PM [facility] REPOSITORY HNO ID: [id number] Author: Gabriella Bustillos (Rt) Service: (none) Author Type: Roll Edge Machine Operator Type: Progress Notes Filed: 10/04/2017 2:22 PM Note Text: Radiology Service Progress Note PATIENT NAME: Mayco Kendrick DATE OF SERVICE: October 04, 2017 TIME: 1:51 PM PATIENT IDENTITY VERIFICATION COMPLETED USING TWO (2) METHODS: Patient confirmed name verbally and Date of . PATIENT GENDER DATA: Male PATIENT RELEVANT IMPLANT DATA REVIEWED: Not Applicable RADIOLOGY DEPARTMENT: General X-ray: Exam(s) Completed: Pelvis X-Ray: Pelvis with Hip Left Lower Extremity X-Ray(s): Knee, AP / Lat / Tunne / Merchant Left and Wt. Bearing: PERIPHERAL IV DATA: Not applicable SIGNED BY: RT Tressa October 04, 2017 1:51 PM PROGRESS Observed: 09/20/2017 Status: COMPLETED Source: [place] 1:43 PM [facility] REPOSITORY HNO ID: [id number] Author: Joan Noe (Pa) Service: (none) Author Type: Physician Budget Officer Type: Progress Notes Filed: 09/20/2017 1:49 PM Note Text: Joan Noe PA-C Department of Orthopaedics Orthopaedics [address] [place] [address] Dept: [phone] Dept September 20, 2017 CHIEF COMPLAINT: Post Op (1 week 3 days post op right ulnar nerve decompression ). 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 He was having some problems with his splint sliding down his arm, splint was adjusted several times buy his nurse. He complains of pain about his right palm that is worse with alexandria of his cane. He has been sleeping with his elbow propped on a pillow for comfort. He is concerned because he still has numbness in his right hand. We will remove his sutures today and get him into an compression elbow pad for comfort. We discussed proper hand washing, no soaking of incision sites, continue to avoid lifting, grasping or pulling with operative arm. We will see him back in 6 weeks. Exam: Arrives with splint intact. Mild edema of the right elbow and forearm, ecchymosis about the elbow incision. Incision sites well approximated without erythema, discharge or drainage. Subjective numbness in thumb, index and middle finger. Imaging: deferred today Mr. Mayco Kendrick was advised as to contrast therapies and/or to take analgesics/anti-inflammatories as needed and all contraindications were reviewed. Supporting Information Below: Medications: Current Outpatient Prescriptions: rivaroxaban (XARELTO) 20 mg tablet Take 1 tablet by mouth daily with dinner. sucralfate (CARAFATE) 1 gram tablet Take 1 tablet by mouth three times daily before meals. 30 minutes before meals. docusate sodium (DOC-Q-LACE) 100 mg capsule Take 1 capsule by mouth once daily. COMPOUNDED PRESCRIPTION Please eval and fix any issues with walker.Dx: I50.33, I25.10, E66.01, M54.42, M25.551 Ranitidine HCl 300 mg tablet Take with evening meal. glimepiride (AMARYL) 1 mg tablet Take 1 tablet by mouth daily with breakfast. pantoprazole DR (PROTONIX) 40 mg tablet Take 1 tablet by mouth daily before breakfast. Take on empty stomach, 1/2 hr before meal. Per Gastroenterology bisacodyl (DULCOLAX) 10 mg supp 1 Suppository by RECTAL route once daily as needed (for constipation). polyethylene glycol 3350 (MIRALAX, GLYCOLAX) 17 gram/dose powder 17 g up to twice daily as needed prn constipation ketoconazole (NIZORAL) 2 % shampoo Use as a body wash, most specifically the chest, daily for itching and flaking; may keep in own shower triamcinolone acetonide (KENALOG) 0.1 % cream Apply to itching rash on chest twice daily ONLY when needed; may keep in room metoprolol tartrate, short acting, (LOPRESSOR) 25 mg tablet Take 1 tablet by mouth every 12 hours. oxybutynin (DITROPAN) 5 mg tablet Take 5 mg by mouth three times daily. aspirin, enteric coated (ADULT LOW DOSE ASPIRIN) 81 mg EC tablet Take 1 tablet by mouth once daily. atorvastatin (LIPITOR) 80 mg tablet Take 1 tablet by mouth once daily. magnesium oxide (MAG-OX) 400 mg tablet Take 1 tablet by mouth once daily. tamsulosin ER (FLOMAX) 0.4 mg cp24 Take 1 capsule by mouth every evening. for prostate furosemide (LASIX) 80 mg tablet One PO daily in AM furosemide (LASIX) 40 mg tablet One PO daily at dinner metFORMIN (GLUCOPHAGE) 500 mg tablet Take 1 tablet by mouth three times daily with meals. nitroglycerin sublingual (NITROSTAT) 0.4 mg SL tablet Take 1 tablet by mouth as needed. for chest pain; dissolve on tongue. If no pain relief call 911. COMPOUNDED PRESCRIPTION Glucometer high/low test solution for accucheck. DX: DM COMPOUNDED PRESCRIPTION Please perform a nocturnal oximetry on room air on BiPAP. Diagnosis: HypoxiaPlease fax results to [phone] Attn: Glendy Lancets (ACCU-CHEK FASTCLIX) lancets Test glucose twice weekly. Dx: 250.00. Insulin Use: no blood sugar diagnostic test strip testing twice weekly dx 250.00 insulin no Blood-Glucose Meter, Drum-type (ACCU-CHEK COMPACT PLUS CARE) kit Test fasting blood sugar 1-2 times a week and 2 hrs post meal 1- 2 times a week. Blood-Glucose Meter (WriteOn ULTRA 2) monitoring kit 1 Each as needed. One Touch Meter Kit Diagnosis: Diabetes Mellitus Blood Glucose Control, Normal (OT ULTRA/FASTTRACK CONTROL) soln Test controls as needed. COMPOUNDED PRESCRIPTION BIPAP setting: IPAP 22cm water with heated humidification EPAP setting of 16cm with supplemental oxygen bleed in at 2lt per minute. Mask (per patient preference) and supplies for lifetime. Please add chin strap DX EDMOND 327.23 traZODone (DESYREL) 50 mg tablet Take 1 tablet by mouth at bedtime as needed (sedation). No current facility-administered medications for this visit. Allergies: Lisinopril; Sertraline This note was partially generated using Cellay voice recognition system, and there may be some incorrect words, spellings, and punctuation that were not noted in checking the note before saving. Joan Noe PA-C PROGRESS Observed: 09/20/2017 Status: COMPLETED Source: [place] 1:19 PM [facility] REPOSITORY HNO ID: [id number] Author: Beba Carter Ma Service: (none) Author Type: (none) Type: Progress Notes Filed: 09/20/2017 1:49 PM Note Text: AMB ROOMING INTAKE FLOWSHEET DATA Risk Screening Do you have concerns about personal safety or safety in the home?: No Pain Pain Score: 3/10 Pain Location: Wrist-Right Description: Sharp Duration Amount of Time: (post op) Frequency: Continuous Intervention: Splinting Patient here today for 1 week 3 days post op right ulnar nerve decompression and CTR. He has an area at the wrist that is red from rubbing on the splint. States he had a lot of swelling over the weekend and he had the Cielo wraps off because they were too tight. CNOV Observed: 09/20/2017 Status: COMPLETED Source: [place] 1:00 PM [facility] REPOSITORY Office Visit (ORTHWS) MAYCO KENDRICK ([id number]) 1940 M NFR Date Time Provider Department 09/20/17 1:00 PM JOAN NOE (PA) During your visit today, we recorded the following information about you: Beba Carter Kylee 09/20/2017 1:49 PM Signed AMB ROOMING INTAKE FLOWSHEET DATA Risk Screening Do you have concerns about personal safety or safety in the home?: No Pain Pain Score: 3/10 Pain Location: Wrist-Right Description: Sharp Duration Amount of Time: (post op) Frequency: Continuous Intervention: Splinting Patient here today for 1 week 3 days post op right ulnar nerve decompression and CTR. He has an area at the wrist that is red from rubbing on the splint. States he had a lot of swelling over the weekend and he had the Cielo wraps off because they were too tight. Joan Noe PA-C 09/20/2017 1:49 PM Signed Joan Noe PA-C Department of Orthopaedics [facility] [address] [facility] [address] Dept: [phone] Dept September 20, 2017 CHIEF COMPLAINT: Post Op (1 week 3 days post op right ulnar nerve decompression ). 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 He was having some problems with his splint sliding down his arm, splint was adjusted several times buy his nurse. He complains of pain about his right palm that is worse with alexandria of his cane. He has been sleeping with his elbow propped on a pillow for comfort. He is concerned because he still has numbness in his right hand. We will remove his sutures today and get him into an compression elbow pad for comfort. We discussed proper hand washing, no soaking of incision sites, continue to avoid lifting, grasping or pulling with operative arm. We will see him back in 6 weeks. Exam: Arrives with splint intact. Mild edema of the right elbow and forearm, ecchymosis about the elbow incision. Incision sites well approximated without erythema, discharge or drainage. Subjective numbness in thumb, index and middle finger. Imaging: deferred today Mr. Mayco Kendrick was advised as to contrast therapies and/or to take analgesics/anti-inflammatories as needed and all contraindications were reviewed. Supporting Information Below: Medications: Current Outpatient Prescriptions: rivaroxaban (XARELTO) 20 mg tablet Take 1 tablet by mouth daily with dinner. sucralfate (CARAFATE) 1 gram tablet Take 1 tablet by mouth three times daily before meals. 30 minutes before meals. docusate sodium (DOC-Q-LACE) 100 mg capsule Take 1 capsule by mouth once daily. COMPOUNDED PRESCRIPTION Please eval and fix any issues with walker.Dx: I50.33, I25.10, E66.01, M54.42, M25.551 Ranitidine HCl 300 mg tablet Take with evening meal. glimepiride (AMARYL) 1 mg tablet Take 1 tablet by mouth daily with breakfast. pantoprazole DR (PROTONIX) 40 mg tablet Take 1 tablet by mouth daily before breakfast. Take on empty stomach, 1/2 hr before meal. Per Gastroenterology bisacodyl (DULCOLAX) 10 mg supp 1 Suppository by RECTAL route once daily as needed (for constipation). polyethylene glycol 3350 (MIRALAX, GLYCOLAX) 17 gram/dose powder 17 g up to twice daily as needed prn constipation ketoconazole (NIZORAL) 2 % shampoo Use as a body wash, most specifically the chest, daily for itching and flaking; may keep in own shower triamcinolone acetonide (KENALOG) 0.1 % cream Apply to itching rash on chest twice daily ONLY when needed; may keep in room metoprolol tartrate, short acting, (LOPRESSOR) 25 mg tablet Take 1 tablet by mouth every 12 hours. oxybutynin (DITROPAN) 5 mg tablet Take 5 mg by mouth three times daily. aspirin, enteric coated (ADULT LOW DOSE ASPIRIN) 81 mg EC tablet Take 1 tablet by mouth once daily. atorvastatin (LIPITOR) 80 mg tablet Take 1 tablet by mouth once daily. magnesium oxide (MAG-OX) 400 mg tablet Take 1 tablet by mouth once daily. tamsulosin ER (FLOMAX) 0.4 mg cp24 Take 1 capsule by mouth every evening. for prostate furosemide (LASIX) 80 mg tablet One PO daily in AM furosemide (LASIX) 40 mg tablet One PO daily at dinner metFORMIN (GLUCOPHAGE) 500 mg tablet Take 1 tablet by mouth three times daily with meals. nitroglycerin sublingual (NITROSTAT) 0.4 mg SL tablet Take 1 tablet by mouth as needed. for chest pain; dissolve on tongue. If no pain relief call 911. COMPOUNDED PRESCRIPTION Glucometer high/low test solution for accucheck. DX: DM COMPOUNDED PRESCRIPTION Please perform a nocturnal oximetry on room air on BiPAP. Diagnosis: HypoxiaPlease fax results to [phone] Attn: Glendy Lancets (ACCU-CHEK FASTCLIX) lancets Test glucose twice weekly. Dx: 250.00. Insulin Use: no blood sugar diagnostic test strip testing twice weekly dx 250.00 insulin no Blood-Glucose Meter, Drum-type (ACCU-CHEK COMPACT PLUS CARE) kit Test fasting blood sugar 1-2 times a week and 2 hrs post meal 1-2 times a week. Blood-Glucose Meter (ONETOUCH ULTRA 2) monitoring kit 1 Each as needed. One Touch Meter Kit Diagnosis: Diabetes Mellitus Blood Glucose Control, Normal (OT ULTRA/FASTTRACK CONTROL) soln Test controls as needed. COMPOUNDED PRESCRIPTION BIPAP setting: IPAP 22cm water with heated humidification EPAP setting of 16cm with supplemental oxygen bleed in at 2lt per minute. Mask (per patient preference) and supplies for lifetime. Please add chin strap DX EDMOND 327.23 traZODone (DESYREL) 50 mg tablet Take 1 tablet by mouth at bedtime as needed (sedation). No current facility-administered medications for this visit. Allergies: Lisinopril; Sertraline This note was partially generated using Cellay voice recognition system, and there may be some incorrect words, spellings, and punctuation that were not noted in checking the note before saving. Joan Noe PA-C Referring Provider: RUDDY CHAVEZ [[id number]] Allergies As of Date: 09/20/2017 Noted Allergy Reaction LISINOPRIL 05/31/2014 14 - Other: See Comments Comments: Metallic taste in mouth. SERTRALINE 05/02/2013 8 - GI Upset Date Reviewed: 09/20/2017 Reviewed by: Beba Carter Ma - Fully Assessed Reason for Visit: Post Op [174] Cmt: 1 week 3 days post op right ulnar nerve decompression Primary Visit Diagnosis:Ulnar neuropathy at elbow, right [G56.21] Other Visit Diagnosis:Carpal tunnel syndrome of right wrist [G56.01] Prescriptions as of 09/20/2017 Sig: RIVAROXABAN 20 MG TABLET Take 1 tablet by mouth daily * SUCRALFATE 1 GRAM TABLET Take 1 tablet by mouth three * DOCUSATE SODIUM 100 MG CAPSULE Take 1 capsule by mouth once * COMPOUNDED PRESCRIPTION Please eval and fix any issue* RANITIDINE 300 MG TABLET Take with evening meal. GLIMEPIRIDE 1 MG TABLET Take 1 tablet by mouth daily * PANTOPRAZOLE 40 MG TABLET,DEL* Take 1 tablet by mouth daily * BISACODYL 10 MG RECTAL SUPPOS* 1 Suppository by RECTAL route* POLYETHYLENE GLYCOL 3350 17 G* 17 g up to twice daily as nee* KETOCONAZOLE 2 % SHAMPOO Use as a body wash, most spec* TRIAMCINOLONE ACETONIDE 0.1 %* Apply to itching rash on ches* METOPROLOL TARTRATE 25 MG TAB* Take 1 tablet by mouth every * OXYBUTYNIN CHLORIDE 5 MG TABL* Take 5 mg by mouth three time* ASPIRIN 81 MG TABLET,DELAYED * Take 1 tablet by mouth once d* ATORVASTATIN 80 MG TABLET Take 1 tablet by mouth once d* MAGNESIUM OXIDE 400 MG TABLET Take 1 tablet by mouth once d* TAMSULOSIN 0.4 MG CAPSULE Take 1 capsule by mouth every* FUROSEMIDE 80 MG TABLET One PO daily in AM FUROSEMIDE 40 MG TABLET One PO daily at dinner METFORMIN 500 MG TABLET Take 1 tablet by mouth three * NITROGLYCERIN 0.4 MG SUBLINGU* Take 1 tablet by mouth as nee* COMPOUNDED PRESCRIPTION Glucometer high/low test solu* COMPOUNDED PRESCRIPTION Please perform a nocturnal ox* LANCETS Test glucose twice weekly. Dx* BLOOD SUGAR DIAGNOSTIC STRIPS testing twice weekly dx 250* BLOOD-GLUCOSE METER, DRUM-TYP* Test fasting blood sugar 1-2 * BLOOD-GLUCOSE METER KIT 1 Each as needed. One Touch M* BLOOD GLUCOSE CONTROL, NORMAL* Test controls as needed. * COMPOUNDED PRESCRIPTION BIPAP setting: IPAP 22cm wate* TRAZODONE 50 MG TABLET Take 1 tablet by mouth at bed* Problem List As Of Date 09/20/2017 Noted Resolved Mild intermittent asthma without complication [* Priority: A MALIGN NEOPL PROSTATE [C61] Priority: B More... Type II or unspecified type diabetes mellitus w* 01/18/2014 Allergic rhinitis, cause unspecified [J30.9] INVALID FOR* Priority: B More... Personal history of colonic polyps [Z86.010] Priority: C More... Lumbago [M54.5] INVALID FOR* Priority: M Bilateral leg edema [R60.0] INVALID FOR* Priority: A Carpal tunnel syndrome [G56.00] INVALID FOR* Priority: M Essential hypertension, benign [I10] INVALID FOR* Priority: A More... Insomnia, unspecified [G47.00] INVALID FOR* Priority: B More... Benign neoplasm of rectum and anal canal [D12.8*INVALID FOR* Priority: C Diverticulosis of colon (without mention of hem*INVALID FOR* Priority: C Hypertrophy of nasal turbinates [J34.3] INVALID FOR* Priority: C More... 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 More... More... EDMOND (obstructive sleep apnea) [G47.33] INVALID FOR* Priority: B More... Mobitz (type) I (Wenckebach's) atrioventricular*INVALID FOR* Priority: A More... More... Mixed hyperlipidemia [E78.2] INVALID FOR* Priority: A More... DVT prophylaxis [YAZ3329] INVALID FOR*07/26/2014 More... More... More... More... More... More... Bradycardia [R00.1] INVALID FOR* Priority: A More... Venous stasis dermatitis of both lower extremit*INVALID FOR* Priority: B Counseling and coordination of care [Z71.89] INVALID FOR*04/12/2015 More... Hypomagnesemia [E83.42] INVALID FOR* Priority: B Diabetic eye exam (HCC) [E11.9, Z01.00] INVALID FOR* Priority: A More... Dry mouth [R68.2] INVALID FOR* Priority: B Noncompliance [Z91.19] INVALID FOR* Gastroesophageal reflux disease without esophag*INVALID FOR* Priority: A Coronary atherosclerosis due to lipid rich plaq*INVALID FOR* Priority: A Morbid obesity due to excess calories (HCC) [E6*INVALID FOR* Priority: B More... Essential tremor [G25.0] INVALID FOR* Priority: B Chronic cough [R05] INVALID FOR* Priority: B Well adult exam [Z00.00] INVALID FOR* Priority: E More... Controlled type 2 diabetes mellitus with diabet*INVALID FOR* Priority: A Depression [F32.9] INVALID FOR* Priority: A Multiple open wounds of lower leg [S81.809A] INVALID FOR* Priority: D Colon cancer screening [Z12.11] INVALID FOR* Chest pain [R07.9] INVALID FOR* Priority: B More... Second degree heart block [I44.1] INVALID FOR* Priority: A More... Atherosclerosis of coronary artery bypass graft*INVALID FOR* Priority: A More... More... More... More... Hypoxia [R09.02] INVALID FOR* Chronic bilateral low back pain with left-sided*INVALID FOR* Priority: M Bilateral hip pain [M25.551, M25.552] INVALID FOR* Priority: M Paroxysmal atrial fibrillation (HCC) [I48.0] INVALID FOR* Priority: A More... 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 Right carpal tunnel syndrome [G56.01] INVALID FOR* Priority: M More... Presence of cardiac pacemaker [Z95.0] INVALID FOR* Priority: B Esophagitis [K20.9] INVALID FOR* Albuminuria [R80.9] INVALID FOR* Priority: A Carpal tunnel syndrome, bilateral [G56.03] INVALID FOR* Priority: M More... Ulnar nerve compression, right [G56.21] INVALID FOR* Priority: M More... Current use of proton pump inhibitor [Z79.899] INVALID FOR* Encounter Status:Closed by JOAN NOE PA-C on 09/20/17 PROGRESS Observed: 09/16/2017 Status: COMPLETED Source: [place] 2:21 PM [facility] REPOSIT[facility] HNO ID: [id number] Author: Bertrand Leon Service: (none) Author Type: Physician Type: Progress Notes Filed: 09/16/2017 9:25 PM Note Text: Chief Complaint Patient presents with: Recheck: 4 month DM, HTN, Lab results HPI Mayco Kendrick is a 77 year old male who presents here today for Chronic Medical Conditions.. Patient with extensive medical Hx. Has been doing ok. Had carpal tunnel surgery and unlar nerve release on the right recently and will have the left done in the up coming future. Saw Pulm and did PFT's that were normal along with diffusion. Bronchoscopy not done due to risk and felt the hemoptysis related to CHF or pneumonia. Patient has not had any in the last few months. assisted [facility] WAS CONCERNED ABOUT AN 11 LBS WEIGHT LOSS IN THE LAST MONTH BUT ACTUALLY HAS A 2 LB WEIGHT GAIN IN THE LAST MONTH AND COMPARED TO 06/2017 HAS A 5 LB WEIGHT LOSS WHICH IS PROBABLY FLUID. Past medical history, appointments, medications, allergies reviewed. Previous Medical History PAST MEDICAL HISTORY Diagnosis Date - Abdominal pain 08/11/2014 w some distention. Appears chronic -abdominal ultrasound - ACUTE GASTRITIS W/O HEMORRHAGE 12/21/2006 - Acute on chronic diastolic CHF (congestive heart failure), NYHA class 4 ([facility]) 03/08/2014 H/o HFpEF with diastolic dysfunction, ICM 55% EF Presents with CP and SOB Weight gain 30lbs in last 3 months Currently SOB and volume overload, in setting of unstable angina (killip 3) Plan Continue Diuresis As above for possible restrictive CM - ALLERGIC RHINITIS NOS 05/03/2006 - Asthma - ASTHMA UNSPECIFIED - Benign neoplasm of colon - Benign neoplasm of rectum and anal canal - Bilateral leg edema 11/05/2008 - Bradycardia 08/11/2014 Patient with sinus bradycardia with Type 1 Mobitz since 2011 however Pulse dropping to high 30s with dizziness Plan: Place on tele for monitoring EP evaluation for ? Pacemaker with new onset of symptoms 2/2 to relative hypotension vs bradycardia Daily EKGs to evaluate rhythm, still appears to be Mobitz type 1 Keep K and Mag above 4 and 2 respectively - Carpal tunnel syndrome 03/28/2010 - Chest pain 07/26/2014 73 year old male transferred from OSH for Unstable angina, chest pain on a Nitro and heparin Drip. First set of enzymes was negative. No ST-T wave chanes on EKG Mobitz type 1 AV block (chronic) ALVERTO score 5 With associated SOB and Pulmonary edema on CXR (Killip class 3) Found not to have acute plaque rupture ?Restrictive cardiomyopathy Will need LHC (LVEDP) and RHC tomorrow - per Dr. Pepe would like Dr. Randall PLAN NPO at midnight Call Cath Charge in AM to confirm schedule and attending Continue diuresis Additionally: - ASA - Stop plavix - reduce Atorvastatin to 20mg (home dose, last LDL ~55) - Losartan - Chest pain with painful respiration 08/11/2014 Chest heaviness. Unstable angina ? -stat EKG -telemetry - trend Ghazala - Congestive heart failure (HCC) - Controlled type 2 diabetes mellitus with diabetic nephropathy ([facility]) 01/18/2014 - Coronary artery disease - CORONARY ATHEROSCLER UNSPEC VESSEL 05/15/2005 - Coronary atherosclerosis due to lipid rich plaque 09/25/2015 - Depression - DEPRESSIVE DISORDER NEC 02/19/2009 - Diverticulitis - Diverticulosis of colon (without mention of hemorrhage) - DM type 2 (diabetes mellitus, type 2) ([facility]) 09/05/2014 - Edema 11/05/2008 - Essential hypertension, benign 02/02/2011 Essential hypertension, benign Home meds - losartan, norvasc, isosorbide mononitrate, lasix AND torsemide PLAN -hypotensive at OSH so hold bp meds for now. Resume as the bp normalizes. - IV lasix 40 mg once for now -resume home dose of lasix AND torsemide PO in the morning - Frequency of urination 02/01/2014 - GERD (gastroesophageal reflux disease) 09/05/2014 - Hand fracture, left 10/13/2011 - Heart block AV complete 05/11/2013 - Hip fracture, right ([facility]) 09/22/2012 Treated medically - History of prostatitis 04/11/2013 - Hyperlipidemia - Hypertension - Hypertrophy of nasal turbinates 07/06/2012 consult with Bian[facility] ENT 06/29/2012 Plan to schedule ablation of inferior turbinates @ [facility]. - Insomnia, unspecified 06/17/2011 OARRS report reviewed October 22, 2011 Matt Taylor MD - Leg swelling - Lumbago 05/11/2007 - MALIGN NEOPL PROSTATE - Mobitz (type) I (Wenckebach's) atrioventricular block 07/26/[address] Eric Go in 2012. Chronic conduction abnormality. does not need a pacemaker. Here with concern for ACS EKG: mobitz type 1, unchanged from prior, no ST-T wave changes BP stable Plan: Monitor Avoiding BB - Morbid obesity 06/02/2011 07/08/2017: H: 72 in, W: 358 lb, BMI 48.54. 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 01/18/2014 - Type II or unspecified type diabetes mellitus without mention of complication, not stated as uncontrolled - Unspecified sleep apnea CPAP 18 with 1L - Urgency of urination 02/01/2014 Previous Surgical History PAST SURGICAL HISTORY Procedure Laterality Date - CABG, ARTERY-VEIN, TWO 1998 CABG, two grafts - CHOLECYSTECTOMY HX 10/14/2015 gangrenous gallbladder - COLONOSCOP W/ OR W/O BRS SPEC 01/27/2005 Colonoscopy - COLONOSCOP W/ OR W/O BRS SPEC 12/21/2006` repeat in 5-2011 - COLONOSCOP W/ OR W/O BRS SPEC 05/18/2012 Colonoscopy repeat 5 years - COLONOSCOPY 12/29/2016 - EGD 12/29/2016 - EGD W/O [facility] SPECIMEN W/BX 12/21/06 - EGD W/O OR W/BRUSH/WASH 01/27/2005 EGD - EGD W/O OR W/BRUSH/WASH 11/21/14 EGD - OPEN CORONARY ENDARTERECTOMY 1999 Angioplasty with stent placement - PACEMAKER 2016 - REMOVAL OF TONSILS,<12 Y/O Tonsillectomy - REPAIR RETINAL DETACH, C 10/2010 - REVISE MEDIAN N/CARPAL TUNNEL SURG Right 09/10/2017 Right CTR - REVISE ULNAR NERVE AT ELBOW Right 09/10/2017 Right ulnar nerve decompression - TOTAL HIP REPLACEMENT 2000 Hip replacement, total, right - TOTAL HIP REPLACEMENT 2001 Hip replacement, total, left Family History FAMILY HISTORY Problem Relation Age of Onset - Heart Father - Cancer Mother Lung - Heart Paternal Grandfather - Heart Brother Patient Allergies ALLERGIES Allergen Reactions - Lisinopril Other: See Comments Metallic taste in mouth. - Sertraline GI Upset Current Medications Current Outpatient Prescriptions on File Prior to Visit: HYDROcodone-acetaminophen (NORCO) 5-325 mg per tablet Take 1 tablet by mouth every 6 hours as needed for up to 7 days. sucralfate (CARAFATE) 1 gram tablet Take 1 tablet by mouth three times daily before meals. 30 minutes before meals. docusate sodium (DOC-Q-LACE) 100 mg capsule Take 1 capsule by mouth once daily. COMPOUNDED PRESCRIPTION Please eval and fix any issues with walker.Dx: I50.33, I25.10, E66.01, M54.42, M25.551 warfarin (COUMADIN) 5 mg tablet Take 1 tablet by mouth once daily. Ranitidine HCl 300 mg tablet Take with evening meal. glimepiride (AMARYL) 1 mg tablet Take 1 tablet by mouth daily with breakfast. pantoprazole DR (PROTONIX) 40 mg tablet Take 1 tablet by mouth daily before breakfast. Take on empty stomach, 1/2 hr before meal. Per Gastroenterology bisacodyl (DULCOLAX) 10 mg supp 1 Suppository by RECTAL route once daily as needed (for constipation). polyethylene glycol 3350 (MIRALAX, GLYCOLAX) 17 gram/dose powder 17 g up to twice daily as needed prn constipation ketoconazole (NIZORAL) 2 % shampoo Use as a body wash, most specifically the chest, daily for itching and flaking; may keep in own shower triamcinolone acetonide (KENALOG) 0.1 % cream Apply to itching rash on chest twice daily ONLY when needed; may keep in room metoprolol tartrate, short acting, (LOPRESSOR) 25 mg tablet Take 1 tablet by mouth every 12 hours. oxybutynin (DITROPAN) 5 mg tablet Take 5 mg by mouth three times daily. aspirin, enteric coated (ADULT LOW DOSE ASPIRIN) 81 mg EC tablet Take 1 tablet by mouth once daily. atorvastatin (LIPITOR) 80 mg tablet Take 1 tablet by mouth once daily. magnesium oxide (MAG-OX) 400 mg tablet Take 1 tablet by mouth once daily. tamsulosin ER (FLOMAX) 0.4 mg cp24 Take 1 capsule by mouth every evening. for prostate traZODone (DESYREL) 50 mg tablet Take 1 tablet by mouth at bedtime as needed (sedation). furosemide (LASIX) 80 mg tablet One PO daily in AM furosemide (LASIX) 40 mg tablet One PO daily at dinner metFORMIN (GLUCOPHAGE) 500 mg tablet Take 1 tablet by mouth three times daily with meals. nitroglycerin sublingual (NITROSTAT) 0.4 mg SL tablet Take 1 tablet by mouth as needed. for chest pain; dissolve on tongue. If no pain relief call 911. COMPOUNDED PRESCRIPTION Glucometer high/low test solution for accucheck. DX: DM COMPOUNDED PRESCRIPTION Please perform a nocturnal oximetry on room air on BiPAP. Diagnosis: HypoxiaPlease fax results to [phone] Attn: Glendy Lancets (ACCU-CHEK FASTCLIX) lancets Test glucose twice weekly. Dx: 250.00. Insulin Use: no blood sugar diagnostic test strip testing twice weekly dx 250.00 insulin no Blood-Glucose Meter, Drum-type (ACCU-CHEK COMPACT PLUS CARE) kit Test fasting blood sugar 1-2 times a week and 2 hrs post meal 1- 2 times a week. Blood-Glucose Meter (ONETOUCH ULTRA 2) monitoring kit 1 Each as needed. One Touch Meter Kit Diagnosis: Diabetes Mellitus Blood Glucose Control, Normal (OT ULTRA/FASTTRACK CONTROL) soln Test controls as needed. COMPOUNDED PRESCRIPTION BIPAP setting: IPAP 22cm water with heated humidification EPAP setting of 16cm with supplemental oxygen bleed in at 2lt per minute. Mask (per patient preference) and supplies for lifetime. Please add chin strap DX EDMOND 327.23 No current facility-administered medications on file prior to visit. 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 Social History Main Topics Smoking status: Never Smoker Smokeless status: Never Used Comment: Father smoked in childhood home. Alcohol use: Yes 31.5 oz/week 7 Cans of Beer (12oz), 14 Mixed Drinks per week Comment: 2/beer/mixed drink daily Drug use: No Sexual activity: No Social History Narrative OARRS report reviewed October 22, 2011 Matt Taylor MD Review of Symptoms REVIEW OF SYSTEMS GENERAL: No weight loss, malaise or fevers NECK: Negative for lumps, goiter, pain and significant neck swelling RESPIRATORY: Negative for cough, hemoptysis,. Still has a productive cough with light yellow mucus that has been chronic. Shortness of breath and wheezing is stable CARDIOVASCULAR: Negative for chest pain, increased leg swelling, hypertension, CHF or palpitations GI: No nausea, vomiting, or diarrhea and No heartburn or reflux symptoms : No history of dysuria or blood ENDOCRINE: Negative for low BS's; FBS this AM was 152 NEURO: No history of headaches, syncope, paralysis, seizures or tremors EXAM: BP 134/58 (BP Site: Left Arm, BP Position: Sitting, BP Cuff Size: Large Adult) Pulse 72 Resp 24 Ht 182.9 cm (6') Wt (!) 160.1 kg (353 lb) SpO2 91% BMI 47.88 kg/m2 Last 8 Encounter Wt Readings: Date: Wt: 09/16/2017 160.1 kg (353 lb) 09/03/2017 159.2 kg (351 lb) 08/31/2017 159.2 kg (351 lb) 08/12/2017 159.5 kg (351 lb 11.2 oz) 08/09/2017 162.8 kg (359 lb) 07/27/2017 162.2 kg (357 lb 9.6 oz) 07/14/2017 162.4 kg (358 lb) 07/08/2017 162.4 kg (358 lb) General Appearance: Well appearing, alert, in no acute distress, well-hydrated, well nourished., Morbidly obese. Eyes: Anicteric sclera. Pupils are equally round and reactive to light. Extraocular movements are intact. . Oropharynx: Lips, mucosa, and tongue normal, teeth and gums normal, oropharynx normal. Neck: Supple, no adenopathy; thyroid symmetric, normal size, no bruits. Lungs: Lungs clear to auscultation. No wheezing, rhonchi, rales. Heart: RRR without murmur, gallop, or rubs. No ectopy. Abdomen: Normal abdominal exam, Abdomen soft, non-tender. Bowel sounds normal. No masses, organomegaly. Extremities: No deformities. Has leg wraps on today and does not feel edematous. Musculoskeletal: Muscular strength intact, No joint swelling, deformity, or tenderness. Peripheral Pulses: Normal. Neurologic: Gait normal. Reflexes normal and symmetric. Sensation to light touch and crainal nerves 2-12 intact.. Feet: Shoes and socks removed, No deformities, ulcers, calluses, normal distal pulses, sensitive to 10 gm monofilament and vibratory perception normal . Health Maintenance List TETANUS due on 07/30/2016 DIABETIC FOOT EXAM due on 01/27/2017 FECAL OCCULT BLOOD due on 01/29/2017 HBA1C due on 04/08/2017 LDL due on 10/09/2017 DILATED RETINAL EXAM due on 04/08/2018 PROSTATE CANCER SCREENING DISCUSSION Completed ADULT PREVNAR-13 Completed INFLUENZA Completed PNEUMOVAX AGE 65 AND OVER WITH 5YR LOOKBACK Completed Data reviewed Jul 2017 labs: CMP ok with GFR at 82%, Pealx=340, HDL=24 and LDL=64 HgA1c= 6.8 A/P ASSESSMENT/PLAN: 1. Controlled type 2 diabetes mellitus with diabetic nephropathy, without long-term current use of insulin (HCC) - ICD9: 250.40, 583.81, ICD10: E11.21 (primary diagnosis) Controlled. - Continue current medications - Encouraged regular aerobic exercise and weight loss 2. Essential hypertension, benign - ICD9: 401.1, ICD10: I10 - good control - Continue current medication(s) - Recommended regular aerobic exercise. - Recommend home blood pressure monitoring, to bring results in on next visit - Cont daily baby ASA - Goal of BP <130/80 3. Mixed hyperlipidemia - ICD9: 272.2, ICD10: E78.2 - improved control - Continue current medication. 4. Mild intermittent asthma without complication - ICD9: 493.90, ICD10: J45.20 Mild intermittent Asthma stable - Continue current meds - Avoidance of triggers recommended 5. Bilateral leg edema - ICD9: 782.3, ICD10: R60.0 - Stable cont meds and leg wraps 6. Acute on chronic diastolic CHF (congestive heart failure), NYHA class 4 (HCC) - ICD9: 428.33, 428.0, ICD10: I50.33 - Clinically stable no changes and cont cardio f/u 7. Gastroesophageal reflux disease without esophagitis - ICD9: 530.81, ICD10: K21.9 - Continue treatment with protonix 40 mg QD - Cont gastro f/u 8. Coronary atherosclerosis due to lipid rich plaque - ICD9: 414.3, ICD10: I25.10, I25.83 - clinically stable, no changes cont cardio f/u 9. Paroxysmal atrial fibrillation (HCC) - ICD9: 427.31, ICD10: I48.0 Will start - RIVAROXABAN 20 MG TABLET - Cont cardio f/u 10. 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 EDMOND (obstructive sleep apnea) - ICD9: 327.23, ICD10: G47.33 - Cont Bi PAP with benefit 12. Insomnia, unspecified type - ICD9: 780.52, ICD10: G47.00 - Stable with current Tx 13. Venous stasis dermatitis of both lower extremities - ICD9: 454.1, ICD10: I87.2 - No current issues cont leg wraps and med's 14. Hypomagnesemia - ICD9: 275.2, ICD10: E83.42 - Cont mag ox 15. Morbid obesity due to excess calories (HCC) - ICD9: 278.01, ICD10: E66.01 - Patient to work on weight loss 16. Essential tremor - ICD9: 333.1, ICD10: G25.0 - Stable, no changes. F/u in 4 months WAE check CMP, FLP, UA, CBC, urine albumin, A1c PSA and Mg at that time. Time with patient face to face was 40 min Bertrand Leon MD CNOV Observed: 09/16/2017 Status: COMPLETED Source: [place] 1:40 PM [facility] Office Visit (FAMPWS) MAYCO KENDRICK ([id number]) 1940 M NFR Date Time Provider Department 09/16/17 1:40 PM BERTRAND LEONPWS During your visit today, we recorded the following information about you: Pulse Respiration Blood pressure Weight 72/minute 24/minute 134/58 160.1 kg Height 1.829 m Bertrand Leon MD 09/16/2017 9:25 PM Signed Chief Complaint Patient presents with: Recheck: 4 month DM, HTN, Lab results HPI Mayco Kendrick is a 77 year old male who presents here today for Chronic Medical Conditions.. Patient with extensive medical Hx. Has been doing ok. Had carpal tunnel surgery and unlar nerve release on the right recently and will have the left done in the up coming future. Saw Pulm and did PFT's that were normal along with diffusion. Bronchoscopy not done due to risk and felt the hemoptysis related to CHF or pneumonia. Patient has not had any in the last few months. assisted [facility]IV[facility] PLACE WAS CONCERNED ABOUT AN 11 LBS WEIGHT LOSS IN THE LAST MONTH BUT ACTUALLY HAS A 2 LB WEIGHT GAIN IN THE LAST MONTH AND COMPARED TO 06/2017 HAS A 5 LB WEIGHT LOSS WHICH IS PROBABLY FLUID. Past medical history, appointments, medications, allergies reviewed. Previous Medical History PAST MEDICAL HISTORY Diagnosis Date - Abdominal pain 08/11/2014 w some distention. Appears chronic -abdominal ultrasound - ACUTE GASTRITIS W/O HEMORRHAGE 12/21/2006 - Acute on chronic diastolic CHF (congestive heart failure), NYHA class 4 (HCC) 03/08/2014 H/o HFpEF with diastolic dysfunction, ICM 55% EF Presents with CP and SOB Weight gain 30lbs in last 3 months Currently SOB and volume overload, in setting of unstable angina (killip 3) Plan Continue Diuresis As above for possible restrictive CM - ALLERGIC RHINITIS NOS 05/03/2006 - Asthma - ASTHMA UNSPECIFIED - Benign neoplasm of colon - Benign neoplasm of rectum and anal canal - Bilateral leg edema 11/05/2008 - Bradycardia 08/11/2014 Patient with sinus bradycardia with Type 1 Mobitz since 2011 however Pulse dropping to high 30s with dizziness Plan: Place on tele for monitoring EP evaluation for ? Pacemaker with new onset of symptoms 2/2 to relative hypotension vs bradycardia Daily EKGs to evaluate rhythm, still appears to be Mobitz type 1 Keep K and Mag above 4 and 2 respectively - Carpal tunnel syndrome 03/28/2010 - Chest pain 07/26/2014 73 year old male transferred from OSH for Unstable angina, chest pain on a Nitro and heparin Drip. First set of enzymes was negative. No ST-T wave chanes on EKG Mobitz type 1 AV block (chronic) ALVERTO score 5 With associated SOB and Pulmonary edema on CXR (Killip class 3) Found not to have acute plaque rupture ?Restrictive cardiomyopathy Will need LHC (LVEDP) and RHC tomorrow - per Dr. Pepe would like Dr. Randall PLAN NPO at midnight Call Cath Charge in AM to confirm schedule and attending Continue diuresis Additionally: - ASA - Stop plavix - reduce Atorvastatin to 20mg (home dose, last LDL ~55) - Losartan - Chest pain with painful respiration 08/11/2014 Chest heaviness. Unstable angina ? -stat EKG -telemetry - trend Ghazala - Congestive heart failure (HCC) - Controlled type 2 diabetes mellitus with diabetic nephropathy ([facility]) 01/18/2014 - Coronary artery disease - CORONARY ATHEROSCLER UNSPEC VESSEL 05/15/2005 - Coronary atherosclerosis due to lipid rich plaque 09/25/2015 - Depression - DEPRESSIVE DISORDER NEC 02/19/2009 - Diverticulitis - Diverticulosis of colon (without mention of hemorrhage) - DM type 2 (diabetes mellitus, type 2) ([facility]) 09/05/2014 - Edema 11/05/2008 - Essential hypertension, benign 02/02/2011 Essential hypertension, benign Home meds - losartan, norvasc, isosorbide mononitrate, lasix ANDamp; torsemide PLAN -hypotensive at OSH so hold bp meds for now. Resume as the bp normalizes. - IV lasix 40 mg once for now -resume home dose of lasix ANDamp; torsemide PO in the morning - Frequency of urination 02/01/2014 - GERD (gastroesophageal reflux disease) 09/05/2014 - Hand fracture, left 10/13/2011 - Heart block AV complete 05/11/2013 - Hip fracture, right ([facility]) 09/22/2012 Treated medically - History of prostatitis 04/11/2013 - Hyperlipidemia - Hypertension - Hypertrophy of nasal turbinates 07/06/2012 consult with Bian[facility] ENT 06/29/2012 Plan to schedule ablation of inferior turbinates @ [facility]. - Insomnia, unspecified 06/17/2011 OARRS report reviewed October 22, 2011 Matt Taylor MD - Leg swelling - Lumbago 05/11/2007 - MALIGN NEOPL PROSTATE - Mobitz (type) I (Wenckebach's) atrioventricular block 07/26/[address] Eric Go in 2012. Chronic conduction abnormality. does not need a pacemaker. Here with concern for ACS EKG: mobitz type 1, unchanged from prior, no ST-T wave changes BP stable Plan: Monitor Avoiding BB - Morbid obesity 06/02/2011 07/08/2017: H: 72 in, W: 358 lb, BMI 48.54. 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 01/18/2014 - Type II or unspecified type diabetes mellitus without mention of complication, not stated as uncontrolled - Unspecified sleep apnea CPAP 18 with 1L - Urgency of urination 02/01/2014 Previous Surgical History PAST SURGICAL HISTORY Procedure Laterality Date - CABG, ARTERY-VEIN, TWO 1998 CABG, two grafts - CHOLECYSTECTOMY HX 10/14/2015 gangrenous gallbladder - COLONOSCOP W/ OR W/O BRS SPEC 01/27/2005 Colonoscopy - COLONOSCOP W/ OR W/O BRS SPEC 12/21/2006` repeat in 5-2011 - COLONOSCOP W/ OR W/O BRS SPEC 05/18/2012 Colonoscopy repeat 5 years - COLONOSCOPY 12/29/2016 - EGD 12/29/2016 - EGD W/O [facility] SPECIMEN W/BX 12/21/06 - EGD W/O OR W/BRUSH/WASH 01/27/2005 EGD - EGD W/O OR W/BRUSH/WASH 11/21/14 EGD - OPEN CORONARY ENDARTERECTOMY 1999 Angioplasty with stent placement - PACEMAKER 2016 - REMOVAL OF TONSILS,ANDlt;13 Y/O Tonsillectomy - REPAIR RETINAL DETACH, C 10/2010 - REVISE MEDIAN N/CARPAL TUNNEL SURG Right 09/10/2017 Right CTR - REVISE ULNAR NERVE AT ELBOW Right 09/10/2017 Right ulnar nerve decompression - TOTAL HIP REPLACEMENT 2000 Hip replacement, total, right - TOTAL HIP REPLACEMENT 2001 Hip replacement, total, left Family History FAMILY HISTORY Problem Relation Age of Onset - Heart Father - Cancer Mother Lung - Heart Paternal Grandfather - Heart Brother Patient Allergies ALLERGIES Allergen Reactions - Lisinopril Other: See Comments Metallic taste in mouth. - Sertraline GI Upset Current Medications Current Outpatient Prescriptions on File Prior to Visit: HYDROcodone-acetaminophen (NORCO) 5-325 mg per tablet Take 1 tablet by mouth every 6 hours as needed for up to 7 days. sucralfate (CARAFATE) 1 gram tablet Take 1 tablet by mouth three times daily before meals. 30 minutes before meals. docusate sodium (DOC-Q-LACE) 100 mg capsule Take 1 capsule by mouth once daily. COMPOUNDED PRESCRIPTION Please eval and fix any issues with walker.Dx: I50.33, I25.10, E66.01, M54.42, M25.551 warfarin (COUMADIN) 5 mg tablet Take 1 tablet by mouth once daily. Ranitidine HCl 300 mg tablet Take with evening meal. glimepiride (AMARYL) 1 mg tablet Take 1 tablet by mouth daily with breakfast. pantoprazole DR (PROTONIX) 40 mg tablet Take 1 tablet by mouth daily before breakfast. Take on empty stomach, 1/2 hr before meal. Per Gastroenterology bisacodyl (DULCOLAX) 10 mg supp 1 Suppository by RECTAL route once daily as needed (for constipation). polyethylene glycol 3350 (MIRALAX, GLYCOLAX) 17 gram/dose powder 17 g up to twice daily as needed prn constipation ketoconazole (NIZORAL) 2 % shampoo Use as a body wash, most specifically the chest, daily for itching and flaking; may keep in own shower triamcinolone acetonide (KENALOG) 0.1 % cream Apply to itching rash on chest twice daily ONLY when needed; may keep in room metoprolol tartrate, short acting, (LOPRESSOR) 25 mg tablet Take 1 tablet by mouth every 12 hours. oxybutynin (DITROPAN) 5 mg tablet Take 5 mg by mouth three times daily. aspirin, enteric coated (ADULT LOW DOSE ASPIRIN) 81 mg EC tablet Take 1 tablet by mouth once daily. atorvastatin (LIPITOR) 80 mg tablet Take 1 tablet by mouth once daily. magnesium oxide (MAG-OX) 400 mg tablet Take 1 tablet by mouth once daily. tamsulosin ER (FLOMAX) 0.4 mg cp24 Take 1 capsule by mouth every evening. for prostate traZODone (DESYREL) 50 mg tablet Take 1 tablet by mouth at bedtime as needed (sedation). furosemide (LASIX) 80 mg tablet One PO daily in AM furosemide (LASIX) 40 mg tablet One PO daily at dinner metFORMIN (GLUCOPHAGE) 500 mg tablet Take 1 tablet by mouth three times daily with meals. nitroglycerin sublingual (NITROSTAT) 0.4 mg SL tablet Take 1 tablet by mouth as needed. for chest pain; dissolve on tongue. If no pain relief call 911. COMPOUNDED PRESCRIPTION Glucometer high/low test solution for accucheck. DX: DM COMPOUNDED PRESCRIPTION Please perform a nocturnal oximetry on room air on BiPAP. Diagnosis: HypoxiaPlease fax results to [phone] Attn: Glendy Lancets (ACCU-CHEK FASTCLIX) lancets Test glucose twice weekly. Dx: 250.00. Insulin Use: no blood sugar diagnostic test strip testing twice weekly dx 250.00 insulin no Blood-Glucose Meter, Drum-type (ACCU-CHEK COMPACT PLUS CARE) kit Test fasting blood sugar 1-2 times a week and 2 hrs post meal 1-2 times a week. Blood-Glucose Meter (ONETOUCH ULTRA 2) monitoring kit 1 Each as needed. One Touch Meter Kit Diagnosis: Diabetes Mellitus Blood Glucose Control, Normal (OT ULTRA/FASTTRACK CONTROL) soln Test controls as needed. COMPOUNDED PRESCRIPTION BIPAP setting: IPAP 22cm water with heated humidification EPAP setting of 16cm with supplemental oxygen bleed in at 2lt per minute. Mask (per patient preference) and supplies for lifetime. Please add chin strap DX EDMOND 327.23 No current facility-administered medications on file prior to visit. 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 Social History Main Topics Smoking status: Never Smoker Smokeless status: Never Used Comment: Father smoked in childhood home. Alcohol use: Yes 31.5 oz/week 7 Cans of Beer (12oz), 14 Mixed Drinks per week Comment: 2/beer/mixed drink daily Drug use: No Sexual activity: No Social History Narrative OARRS report reviewed October 22, 2011 Matt Taylor MD Review of Symptoms REVIEW OF SYSTEMS GENERAL: No weight loss, malaise or fevers NECK: Negative for lumps, goiter, pain and significant neck swelling RESPIRATORY: Negative for cough, hemoptysis,. Still has a productive cough with light yellow mucus that has been chronic. Shortness of breath and wheezing is stable CARDIOVASCULAR: Negative for chest pain, increased leg swelling, hypertension, CHF or palpitations GI: No nausea, vomiting, or diarrhea and No heartburn or reflux symptoms : No history of dysuria or blood ENDOCRINE: Negative for low BS's; FBS this AM was 152 NEURO: No history of headaches, syncope, paralysis, seizures or tremors EXAM: BP 134/58 (BP Site: Left Arm, BP Position: Sitting, BP Cuff Size: Large Adult) Pulse 72 Resp 24 Ht 182.9 cm (6') Wt (!) 160.1 kg (353 lb) SpO2 91% BMI 47.88 kg/m2 Last 8 Encounter Wt Readings: Date: Wt: 09/16/2017 160.1 kg (353 lb) 09/03/2017 159.2 kg (351 lb) 08/31/2017 159.2 kg (351 lb) 08/12/2017 159.5 kg (351 lb 11.2 oz) 08/09/2017 162.8 kg (359 lb) 07/27/2017 162.2 kg (357 lb 9.6 oz) 07/14/2017 162.4 kg (358 lb) 07/08/2017 162.4 kg (358 lb) General Appearance: Well appearing, alert, in no acute distress, well-hydrated, well nourished., Morbidly obese. Eyes: Anicteric sclera. Pupils are equally round and reactive to light. Extraocular movements are intact. . Oropharynx: Lips, mucosa, and tongue normal, teeth and gums normal, oropharynx normal. Neck: Supple, no adenopathy; thyroid symmetric, normal size, no bruits. Lungs: Lungs clear to auscultation. No wheezing, rhonchi, rales. Heart: RRR without murmur, gallop, or rubs. No ectopy. Abdomen: Normal abdominal exam, Abdomen soft, non-tender. Bowel sounds normal. No masses, organomegaly. Extremities: No deformities. Has leg wraps on today and does not feel edematous. Musculoskeletal: Muscular strength intact, No joint swelling, deformity, or tenderness. Peripheral Pulses: Normal. Neurologic: Gait normal. Reflexes normal and symmetric. Sensation to light touch and crainal nerves 2-12 intact.. Feet: Shoes and socks removed, No deformities, ulcers, calluses, normal distal pulses, sensitive to 10 gm monofilament and vibratory perception normal . Health Maintenance List TETANUS due on 07/30/2016 DIABETIC FOOT EXAM due on 01/27/2017 FECAL OCCULT BLOOD due on 01/29/2017 HBA1C due on 04/08/2017 LDL due on 10/09/2017 DILATED RETINAL EXAM due on 04/08/2018 PROSTATE CANCER SCREENING DISCUSSION Completed ADULT PREVNAR-13 Completed INFLUENZA Completed PNEUMOVAX AGE 65 AND OVER WITH 5YR LOOKBACK Completed Data reviewed Jul 2017 labs: CMP ok with GFR at 82%, Nhqxs=428, HDL=24 and LDL=64 HgA1c= 6.8 A/P ASSESSMENT/PLAN: 1. Controlled type 2 diabetes mellitus with diabetic nephropathy, without long-term current use of insulin (HCC) - ICD9: 250.40, 583.81, ICD10: E11.21 (primary diagnosis) Controlled. - Continue current medications - Encouraged regular aerobic exercise and weight loss 2. Essential hypertension, benign - ICD9: 401.1, ICD10: I10 - good control - Continue current medication(s) - Recommended regular aerobic exercise. - Recommend home blood pressure monitoring, to bring results in on next visit - Cont daily baby ASA - Goal of BP ANDlt;130/80 3. Mixed hyperlipidemia - ICD9: 272.2, ICD10: E78.2 - improved control - Continue current medication. 4. Mild intermittent asthma without complication - ICD9: 493.90, ICD10: J45.20 Mild intermittent Asthma stable - Continue current meds - Avoidance of triggers recommended 5. Bilateral leg edema - ICD9: 782.3, ICD10: R60.0 - Stable cont meds and leg wraps 6. Acute on chronic diastolic CHF (congestive heart failure), NYHA class 4 (HCC) - ICD9: 428.33, 428.0, ICD10: I50.33 - Clinically stable no changes and cont cardio f/u 7. Gastroesophageal reflux disease without esophagitis - ICD9: 530.81, ICD10: K21.9 - Continue treatment with protonix 40 mg QD - Cont gastro f/u 8. Coronary atherosclerosis due to lipid rich plaque - ICD9: 414.3, ICD10: I25.10, I25.83 - clinically stable, no changes cont cardio f/u 9. Paroxysmal atrial fibrillation (HCC) - ICD9: 427.31, ICD10: I48.0 Will start - RIVAROXABAN 20 MG TABLET - Cont cardio f/u 10. 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 EDMOND (obstructive sleep apnea) - ICD9: 327.23, ICD10: G47.33 - Cont Bi PAP with benefit 12. Insomnia, unspecified type - ICD9: 780.52, ICD10: G47.00 - Stable with current Tx 13. Venous stasis dermatitis of both lower extremities - ICD9: 454.1, ICD10: I87.2 - No current issues cont leg wraps and med's 14. Hypomagnesemia - ICD9: 275.2, ICD10: E83.42 - Cont mag ox 15. Morbid obesity due to excess calories (HCC) - ICD9: 278.01, ICD10: E66.01 - Patient to work on weight loss 16. Essential tremor - ICD9: 333.1, ICD10: G25.0 - Stable, no changes. F/u in 4 months WAE check CMP, FLP, UA, CBC, urine albumin, A1c PSA and Mg at that time. Time with patient face to face was 40 min Bertrand Leon MD Referring Provider: SELF [200] Allergies As of Date: 09/16/2017 Noted Allergy Reaction LISINOPRIL 05/31/2014 14 - Other: See Comments Comments: Metallic taste in mouth. SERTRALINE 05/02/2013 8 - GI Upset Date Reviewed: 09/16/2017 Reviewed by: Bertrand Leon - Fully Assessed Reason for Visit: Recheck [92] Cmt: 4 month DM, HTN, Lab results Primary Visit Diagnosis:Controlled type 2 diabetes mellitus with diabetic nephropathy, without long-term current use of insulin ([facility]) [E11.21] Other Visit Diagnoses:Essential hypertension, benign [I10] Mixed hyperlipidemia [E78.2] Mild intermittent asthma without complication [J45.20] Bilateral leg edema [R60.0] Acute on chronic diastolic CHF (congestive heart failure), NYHA class 4 ([facility]) [I50.33] Gastroesophageal reflux disease without esophagitis [K21.9] Coronary atherosclerosis due to lipid rich plaque [I25.10, I25.83] Paroxysmal atrial fibrillation (HCC) [I48.0] 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) [I25.700] EDMOND (obstructive sleep apnea) [G47.33] Insomnia, unspecified type [G47.00] Venous stasis dermatitis of both lower extremities [I87.2] Hypomagnesemia [E83.42] Morbid obesity due to excess calories (HCC) [E66.01] Essential tremor [G25.0] Order(s):rivaroxaban (XARELTO) 20 mg tabletTake 1 tablet by mouth daily with dinner.Disp: 30 tabletRfl: 11 HBA1C (OUTSIDE) [1953205] Order #: [id number] LIPID PANEL (OUTSIDE) [2695855] Order #: [id number] Prescriptions as of 09/16/2017 Sig: HYDROCODONE 5 MG-ACETAMINOPHE* Take 1 tablet by mouth every * SUCRALFATE 1 GRAM TABLET Take 1 tablet by mouth three * DOCUSATE SODIUM 100 MG CAPSULE Take 1 capsule by mouth once * COMPOUNDED PRESCRIPTION Please eval and fix any issue* RANITIDINE 300 MG TABLET Take with evening meal. GLIMEPIRIDE 1 MG TABLET Take 1 tablet by mouth daily * PANTOPRAZOLE 40 MG TABLET,DEL* Take 1 tablet by mouth daily * BISACODYL 10 MG RECTAL SUPPOS* 1 Suppository by RECTAL route* POLYETHYLENE GLYCOL 3350 17 G* 17 g up to twice daily as nee* KETOCONAZOLE 2 % SHAMPOO Use as a body wash, most spec* TRIAMCINOLONE ACETONIDE 0.1 %* Apply to itching rash on ches* METOPROLOL TARTRATE 25 MG TAB* Take 1 tablet by mouth every * OXYBUTYNIN CHLORIDE 5 MG TABL* Take 5 mg by mouth three time* ASPIRIN 81 MG TABLET,DELAYED * Take 1 tablet by mouth once d* ATORVASTATIN 80 MG TABLET Take 1 tablet by mouth once d* MAGNESIUM OXIDE 400 MG TABLET Take 1 tablet by mouth once d* TAMSULOSIN 0.4 MG CAPSULE Take 1 capsule by mouth every* TRAZODONE 50 MG TABLET Take 1 tablet by mouth at bed* FUROSEMIDE 80 MG TABLET One PO daily in AM FUROSEMIDE 40 MG TABLET One PO daily at dinner METFORMIN 500 MG TABLET Take 1 tablet by mouth three * NITROGLYCERIN 0.4 MG SUBLINGU* Take 1 tablet by mouth as nee* COMPOUNDED PRESCRIPTION Glucometer high/low test solu* COMPOUNDED PRESCRIPTION Please perform a nocturnal ox* LANCETS Test glucose twice weekly. Dx* BLOOD SUGAR DIAGNOSTIC STRIPS testing twice weekly dx 250* BLOOD-GLUCOSE METER, DRUM-TYP* Test fasting blood sugar 1-2 * BLOOD-GLUCOSE METER KIT 1 Each as needed. One Touch M* BLOOD GLUCOSE CONTROL, NORMAL* Test controls as needed. * COMPOUNDED PRESCRIPTION BIPAP setting: IPAP 22cm wate* RIVAROXABAN 20 MG TABLET Take 1 tablet by mouth daily * Problem List As Of Date 09/16/2017 Noted Resolved Mild intermittent asthma without complication [* Priority: A MALIGN NEOPL PROSTATE [C61] Priority: B More... Type II or unspecified type diabetes mellitus w* 01/18/2014 Allergic rhinitis, cause unspecified [J30.9] INVALID FOR* Priority: B More... Personal history of colonic polyps [Z86.010] Priority: C More... Lumbago [M54.5] INVALID FOR* Priority: M Bilateral leg edema [R60.0] INVALID FOR* Priority: A Carpal tunnel syndrome [G56.00] INVALID FOR* Priority: M Essential hypertension, benign [I10] INVALID FOR* Priority: A More... Insomnia, unspecified [G47.00] INVALID FOR* Priority: B More... Benign neoplasm of rectum and anal canal [D12.8*INVALID FOR* Priority: C Diverticulosis of colon (without mention of hem*INVALID FOR* Priority: C Hypertrophy of nasal turbinates [J34.3] INVALID FOR* Priority: C More... 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 More... More... EDMOND (obstructive sleep apnea) [G47.33] INVALID FOR* Priority: B More... Mobitz (type) I (Wenckebach's) atrioventricular*INVALID FOR* Priority: A More... More... Mixed hyperlipidemia [E78.2] INVALID FOR* Priority: A More... DVT prophylaxis [ZIC7256] INVALID FOR*07/26/2014 More... More... More... More... More... More... Bradycardia [R00.1] INVALID FOR* Priority: A More... Venous stasis dermatitis of both lower extremit*INVALID FOR* Priority: B Counseling and coordination of care [Z71.89] INVALID FOR*04/12/2015 More... Hypomagnesemia [E83.42] INVALID FOR* Priority: B Diabetic eye exam (HCC) [E11.9, Z01.00] INVALID FOR* Priority: A More... Dry mouth [R68.2] INVALID FOR* Priority: B Noncompliance [Z91.19] INVALID FOR* Gastroesophageal reflux disease without esophag*INVALID FOR* Priority: A Coronary atherosclerosis due to lipid rich plaq*INVALID FOR* Priority: A Morbid obesity due to excess calories (HCC) [E6*INVALID FOR* Priority: B More... Essential tremor [G25.0] INVALID FOR* Priority: B Chronic cough [R05] INVALID FOR* Priority: B Well adult exam [Z00.00] INVALID FOR* Priority: E More... Controlled type 2 diabetes mellitus with diabet*INVALID FOR* Priority: A Depression [F32.9] INVALID FOR* Priority: A Multiple open wounds of lower leg [S81.809A] INVALID FOR* Priority: D Colon cancer screening [Z12.11] INVALID FOR* Chest pain [R07.9] INVALID FOR* Priority: B More... Second degree heart block [I44.1] INVALID FOR* Priority: A More... Atherosclerosis of coronary artery bypass graft*INVALID FOR* Priority: A More... More... More... More... Hypoxia [R09.02] INVALID FOR* Chronic bilateral low back pain with left-sided*INVALID FOR* Priority: M Bilateral hip pain [M25.551, M25.552] INVALID FOR* Priority: M Paroxysmal atrial fibrillation (HCC) [I48.0] INVALID FOR* Priority: A More... 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 Right carpal tunnel syndrome [G56.01] INVALID FOR* Priority: M More... Presence of cardiac pacemaker [Z95.0] INVALID FOR* Priority: B Esophagitis [K20.9] INVALID FOR* Albuminuria [R80.9] INVALID FOR* Priority: A Carpal tunnel syndrome, bilateral [G56.03] INVALID FOR* Priority: M More... Ulnar nerve compression, right [G56.21] INVALID FOR* Priority: M More... Current use of proton pump inhibitor [Z79.899] INVALID FOR* Prescriptions ordered this encounter Disp Refills Start End RIVAROXABAN 20 MG TABLET 30 t* 11 09/16/2017 Route: ORAL Sig: Take 1 tablet by mouth daily with dinner. Medications Discontinued During This Encounter warfarin (COUMADIN) 5 mg tablet 30 t* 11 04/09/2017 09/16/2017 Class: Med Update Route: ORAL Sig: Take 1 tablet by mouth once daily. Disc: Clinical Decision Disposition: Return in about 4 months (around 01/14/2018) for complete PE. Follow-up and Disposition History Recorded Encounter Status:Closed by BERTRAND LEON on 09/16/17 ALLERGIES ALLERGIES DATE TYPE / CODE NAME / CODE REACTION SEVERITY SOURCE 09/08/2018 Drug lisinopril/P05079 Unknown Unknown [place] Allergy/416 0658(RXNORM) [facility] 615613([facility]) Repository 09/08/2018 Drug sertraline/J68556 Unknown Unknown [place] Allergy/416 4615(RXNORM) [facility] 462967([facility]) Repository 05/31/2014 DRUG LISINOPRIL OTHER: SEE C [facility] INGREDI/[address] [place] 177200(SNOM Repository ED CT) 05/31/2014 DRUG LISINOPRIL OTHER: SEE C [facility] INGREDI/[address] [place] 483503(SNOM Repository ED CT) 05/02/2013 DRUG SERTRALINE GI UPSET [facility] INGREDI/419 [facility] 819208(SNOM Repository ED CT) 05/02/2013 DRUG SERTRALINE GI UPSET [facility] INGREDI/419 [facility] 700990(SNOM Repository ED CT) NG/[id number] LISINOPRIL [facility]) Repository NG/[id number] SERTRALINE [place] [address]([facility]) Repository ENCOUNTERS ENCOUNTERS ADMIT/DISCHARGE ACCOUNT NUMBER ADMITTING ENCOUNTER LOCATION SOURCE CLASS 09/08/2018 [id number] Ambulatory [facility] ding:SDC Repository 08/05/2018/08/06/20 [id number] [facility] [address] ding:PCURoom Repository : NMW087Ajy: 1 08/05/2018 [id number] [facility] Ambulatory BMSBuilding: [place] F BMS.[facility] Repository 08/05/2018/08/06/20 [id number] Ambulatory BMSBuilding: [address] Repository 08/05/2018 [id number] David Ambulatory BMSBuilding: [facility] BMS.[facility] Repository 08/05/2018 [id number] Ambulatory BMSBuilding: [facility] Repository 08/01/2018/08/02/20 [id number] Ambulatory [address] Repository 08/01/2018/08/02/20 [id number] Ambulatory [address] Repository 06/20/2018/06/21/20 [id number] Ambulatory [address] Repository 06/09/2018/06/10/20 [id number] Ambulatory [address] Repository 06/06/2018/06/06/20 [id number] Ambulatory [address] Repository 06/02/2018/06/03/20 [id number] Ambulatory [address] Repository 06/02/2018 [id number] Ambulatory [facility] MEDICAL Repository CENTERBuildi ng:CAGWS 05/31/2018/06/01/20 [id number] Ambulatory [address] Repository 05/23/2018/05/25/20 [id number] Ambulatory [address] Repository 05/09/2018/05/10/20 [id number] Ambulatory [address] Repository 04/27/2018/04/27/20 [id number] Ambulatory BMSBuilding: [address] Repository 04/18/2018/05/02/20 [id number] Ambulatory [address] [place] Repository 03/07/2018/03/09/20 [id number] Ambulatory [address] [place] Repository 03/07/2018/03/07/20 [id number] Ambulatory [address] [place] Repository 03/03/2018/03/24/20 [id number] Ambulatory [address] [place] Repository 02/21/2018/02/23/20 [id number] Ambulatory [address] [place] Repository 02/14/2018/02/16/20 [id number] [facility] Ambulatory [place] Bianka [address] [place] [address] ding:IQ4Fhrp Repository : LB107Oqt: 1 02/14/2018 [id number] Harrison [facility] Ambulatory BMSBuilding: [place] BMS.[facility] Repository 02/14/2018 [id number] Ambulatory BMSBuilding: [place] BMS.[facility] Repository 02/11/2018 [id number] REFUGIO, Ambulatory [facility] [place] Repository 01/27/2018/02/02/20 [id number] Ambulatory [address] Repository 01/26/2018/01/28/20 [id number] Ambulatory [address] Repository 01/24/2018/01/28/20 [id number] Ambulatory [address] Repository 01/24/2018/01/25/20 [id number] Ambulatory [address] [place] Repository 01/19/2018/01/21/20 [id number] Ambulatory [address] [place] Repository 01/14/2018/01/15/20 [id number] KATHY, Ambulatory [address] Other [place] Repository 01/13/2018/01/14/20 [id number] Ambulatory Bianka[address] ding:PT Repository 01/07/2018/01/08/20 [id number] Ambulatory [address] [place] Repository 01/07/2018/01/08/20 [id number] Ambulatory [address] [place] Repository 12/30/2017 [id number] Ambulatory [facility] [place] Repository 12/30/2017 [id number] Ambulatory [facility] [place] Repository 12/30/2017/01/01/20 [id number] Ambulatory [address] [place] Repository 12/30/2017/12/31/19 [id number] Ambulatory [address] Repository 12/01/2017/12/02/19 [id number] Ambulatory [address] Other [place] Repository 12/01/2017/12/02/19 [id number] Ambulatory SANGEETA Tomlin [address] MEDICAL Repository CENTERBuildi ng:CAGWS 11/30/2017/12/02/19 [id number] Ambulatory [address] Repository 11/29/2017/12/01/19 [id number] Ambulatory [address] Repository 11/20/2017 [id number] Ambulatory BMSBuilding: [facility] Repository 11/20/2017/11/21/19 [id number] Ambulatory BMSBuilding: [address] Repository 11/19/2017/11/21/19 [id number] White, Magdalena Ambulatory [address] ding:PCURoom Repository : [id number]: 1 11/19/2017 [id number] White, Magdalena Ambulatory BMSBuilding: [place] BMS.[facility] Repository 11/19/2017 [id number] White, Magdalena Ambulatory BMSBuilding: [place] BMS.[facility] Repository 10/26/2017/10/27/19 [id number] Ambulatory BMSBuilding: Bian[place] 18 [facility]MS.[facility] Repository 10/25/2017 [id number] Ambulatory BMSBuilding: [place] [facility]MS.[facility] Repository 10/21/2017/10/22/19 [id number] Ambulatory [address] [place] Repository 10/18/2017/10/22/19 [id number] Ambulatory [address] [place] Repository 10/04/2017/03/10/20 [id number] Ambulatory [address] [place] Repository 10/04/2017/10/04/19 [id number] Ambulatory [address] Repository 09/20/2017/09/20/19 [id number] Ambulatory [address] Repository 09/16/2017/09/16/19 [id number] Ambulatory [address] Repository PAYERS PAYERS ENCOUNTER GUARANTOR PAYER SUBSCRIBER SOURCE 09/08/2018 MAYCO J Primary Insurance:[facility] MAYCO J [place] [id number] S MCRDUAL COMP HMO* NOT BISHOPDOB: Community [employer] CONTPolicy Number: [id number] [id number] Repository [address]Nyw: (234) Date:2556-00-91RK [phone] () [address] [place] [address]XE: 09/08/2018 Secondary MAYCO J [place] Insurance:[facility] BISHOPDOB: Community COMMUNITY PLANPolicy [id number] Hospital Number: Repository [id number] Date:7332-60-37JI [address] [address]FC: 09/08/2018 Tertiary NOT GIVENUNK [place] Insurance:SELF [facility]Y [facility] Number: Effective Repository Date:2018-08-31 08/05/2018 MAYCO J Primary Insurance:[facility] MAYCO J [place] [id number] S MCRDUAL COMP HMO* NOT BISHOPDOB: Community [employer] CONTPolicy Number: [id number] [id number] Repository [address]Wgb: (234) Date:1851-89-91EM [phone] () [address] [place] [address]CQ: 08/05/2018 Secondary MAYCO J [place] Insurance:[facility] BISHOPDOB: Community COMMUNITY PLANPolicy [id number] Hospital Number: Repository [id number] Date:9392-25-89IX [address] [address]DG: 08/05/2018 Tertiary NOT GIVENUNK [place] Insurance:SELF PAY [facility] Number: Effective Repository Date:2018-08-05 08/05/2018 MAYCO J Primary Insurance:[facility] MAYCO J [place] [id number] S MCRDUAL COMP HMO* NOT BISHOPDOB: Community [employer] CONTPolicy Number: [id number] [id number] Repository [address]Ktd: (234) Date:8756-99-29RQ [phone] (HP) [address] [place] [address]WH: 08/05/2018 Secondary MAYCO J [place] Insurance:[facility] [id number] Hospital Number: Repository [id number] Date:7696-24-49YG [address] [address]HB: 08/05/2018 Tertiary NOT GIVENUNK [place] Insurance:SELF PAY [facility] Number: Effective Repository Date:2018-08-05 08/05/2018 MAYCO J Primary Insurance:[facility] MAYCO J [place] [id number] S MCRDUAL COMP HMO* NOT BISHOPDOB: Community [employer] CONTPolicy Number: [id number] [id number] Repository [address]Iyp: (234) Date:3217-78-31RC [phone] (HP) [address] [place] [phone]: 08/05/2018 Secondary MAYCO J [place] [facility] [id number] Hospital Number: Repository [id number] Date:9518-48-67MV [address] [address]EZ: 08/05/2018 Tertiary NOT GIVENUNK [place] Insurance:SELF PAY [facility] Number: Effective Repository Date:2018-08-05 08/05/2018 MAYCO J Primary Insurance:[facility] MAYCO J [place] [id number] S MCRDUAL COMP HMO* NOT BISHOPDOB: Community [employer] CONTPolicy Number: [id number] [id number] Repository [address]Yaq: (234) Date:6277-26-39MP [phone] (HP) [address] [place] [address]JQ: 08/05/2018 Secondary MAYCO J [place] Insurance:[facility] BISHOPDOB: [facility] [id number] Hospital Number: Repository [id number] Date:1959-67-16XY [address] [address]CD: 08/05/2018 Tertiary NOT GIVENUNK [place] Insurance:SELF PAY [facility] Number: Effective Repository Date:2018-08-05 08/05/2018 MAYCO J Primary Insurance:[facility] MAYCO J [place] [id number] S MCRDUAL COMP HMO* NOT BISHOPDOB: Community [employer] CONTPolicy Number: [id number] [id number] Repository [address]Qpw: 234) Date:4324-52-92TZ [phone] () [place] [address]FD: 08/05/2018 Secondary MAYCO J [place] Insurance:[facility] BISHOPDOB: [facility] [id number] Hospital Number: Repository [id number] Date:1026-47-20WE [address] [address]RX: 08/05/2018 Tertiary NOT GIVENUNK [place] Insurance:SELF PAY [facility] Number: Effective Repository Date:2018-08-05 06/02/2018 MAYCO J Primary MAYCO J [place] [facility] BISHOPDOB: Insurance:ANTHEM BISHOPDOB: [facility] System S MEDIBLUE DUAL [id number] Repository [employer] [address] [place] [address] MEDICAREPolicy [id number]: (234) Number: [phone] () [id number] Date: 06/02/2018 Secondary MAYCO J [place] General [facility] BISHOPDOB: Health System MEDICAID ONLYPolicy [id number] Repository Number: [id number] Date: 04/27/2018 MAYCO J Primary MAYCO J [place] [id number] S Insurance:[facility] BISHOPDOB: Community [employer] *IN NETWORKPolicy [id number] Number: Repository [id number]: [phone] [id number] [phone] (HP) Date:4282-30-48FA [address] [address]: 04/27/2018 Secondary MAYCO J [place] [facility] [id number] Hospital Number: Repository [id number] Date:7810-98-24EM [address] [address]KC: 04/27/2018 Tertiary NOT GIVENUNK [place] Insurance:SELF PAY [facility] Number: Effective Repository Date:2018-04-27 02/14/2018 MAYCO J Primary MAYCO J Bian[place] [id number] S Insurance:ANTHEM BISHOPDOB: Community [employer] MEDICARE [facility] [id number] ADVANTAPolicy Number: Repository [id number]: [id number] [phone] (HP) Date:9026-12-88LB [address] [place] [address]UK: 02/14/2018 Secondary MAYCO J [place] Insurance:[facility] [id number] Hospital Number: Repository [id number] Date:8686-41-20TT [address] [address]QS: 02/14/2018 Tertiary NOT GIVENUNK [place] Insurance:SELF PAY [facility] Number: Effective Repository Date:2018-02-14 02/14/2018 MAYCO J Primary MAYCO J Bian[place] [id number] S Insurance:ANTHEM BISHOPDOB: Community [employer] MEDICARE [facility] [id number] ADVANTAPolicy Number: Repository [id number]: 234 [id number] [phone] (HP) Date:5372-29-78BJ [address] [address]BM: 02/14/2018 Secondary MAYCO J Bianka Insurance:[facility] BISHOPDOB: [facility] [id number] Hospital Number: Repository [id number] Date:5049-69-21PJ [address] [address]IS: 02/14/2018 Tertiary NOT GIVENUNK [place] Insurance[facility]LF [facility] Number: Effective Repository Date:2018-02-14 02/14/2018 MAYCO J Primary MAYCO J [place] [id number] S Insurance:ANTHEM BISHOPDOB: Community [employer] MEDICARE [facility] [id number] ADVANTAPolicy Number: Repository [id number]: (084) [id number] [phone] (HP) Date:2736-90-74ET [address] [place] [address]TR: 02/14/2018 Secondary MAYCO J [place] Insurance[facility] [id number] Hospital Number: Repository [id number] Date:2583-25-90WF [address] [address]GE: 02/14/2018 Tertiary NOT GIVENUNK [place] Insurance:SELF PAY [facility] Number: Effective Repository Date:2018-02-14 01/13/2018 MAYCO J Primary MAYCO J [place] [id number] S Insurance:ANTHEM BISHOPDOB: [facility] [employer] MEDICARE SENIOR [id number] ADVANTAPolicy Number: Repository [id number]: [id number] [phone] Date:8255-63-44VY [address] (HP) [address] [place] [address]BY: 01/13/2018 Secondary MAYCO J [place] Insurance:[facility] BISHOPDOB: [facility] [id number] Hospital Number: Repository [id number] Date:0855-58-56ZW [address] [address]NU: 01/13/2018 Tertiary NOT GIVENUNK [place] Insurance:SELF PAY [facility] Number: Effective Repository Date:2017-12-13 12/01/2017 MAYCO J Primary MAYCO J [place] [facility] BISHOPDOB: Insurance:ANTHEM BISHOPDOB: Health System S MEDIBLUE DUAL [id number] Repository [employer] [address], [place] MEDICAREPolicy [address]Zlu: (234) Number: [phone] () [id number] Date: 12/01/2017 Secondary MAYCO J Mc[place] General [facility] BISHOPDOB: [facility] [id number] Repository Number: [id number] Date: 11/20/2017 MAYCO J Primary MAYCO J [place] [id number] S Insurance:ANTHEM BISHOPDOB: Community [employer] MEDICARE [facility] [id number] Number: Repository [id number]: [id number] [phone] Date:1481-59-32MO [address] () [address] [place] [address]BD: 11/20/2017 Secondary MAYCO J [place] Insurance:[facility] BISHOPDOB: [facility] [id number] Hospital Number: Repository [id number] Date:6468-01-31SG[address] [address]CM: 11/20/2017 Tertiary NOT GIVENUNK [place] Insurance:SELF PAY [facility] Number: Effective Repository Date:2017-11-20 11/20/2017 MAYCO J Primary MAYCO J [place] [id number] S Insurance:ANTHEM BISHOPDOB: Community [employer] MEDICARE [facility] [id number] Number: Repository [id number]: [id number] [phone] Date:1752-92-43GS [address] () [address] [place] [address]NY: 11/20/2017 Secondary MAYCO J [place] Insurance:[facility] BISHOPDOB: [facility] [id number] Hospital Number: Repository [id number] Date:0039-73-93TQ [address] [place] [address]WZ: 11/20/2017 Tertiary NOT GIVENUNK [place] Insurance:SELF PAY [facility] Number: Effective Repository Date:2017-11-20 11/19/2017 MAYCO J Primary MAYCO J Bian[place] [id number] S Insurance:ANTHEM BISHOPDOB: Community [employer] MEDICARE [facility] [id number] ADVANTAPolicy Number: Repository [id number]: [id number] [phone] Date:1802-05-29RF [address] () [id number] [place] [address]YO: 11/19/2017 Secondary MAYCO J [place] Insurance:[facility] BISHOPDOB: Community *[facility] [place] [facility] [id number] Hospital Number: Repository [id number] Date:8443-18-11LB [address] [address]RV: 11/19/2017 Tertiary NOT GIVENUNK [place] Insurance:SELF PAY [facility] Number: Effective Repository Date:2017-11-19 11/19/2017 MAYCO J Primary MAYCO J [place] [id number] S Insurance:ANTHEM BISHOPDOB: Community [employer] MEDICARE SENIOR [id number] ADVANTAPolicy Number: Repository [id number]: [id number] [phone] Date:7655-40-72YP [address] () [id number] [place] [address]AI: 11/19/2017 Secondary MAYCO J [place] Insurance:[facility] BISHOPDOB: Community COMMUNITY [facility] [id number] Hospital Number: Repository [id number] Date:1982-27-48RQ [address] [address]FM: 11/19/2017 Tertiary NOT GIVENUNK [place] Insurance:SELF PAY [facility] Number: Effective Repository Date:2017-11-19 11/19/2017 MAYCO J Primary MAYCO J [place] [id number] S Insurance:ANTHEM BISHOPDOB: Community [address] MEDICARE [facility] [id number] ADVANTAPolicy Number: Repository [id number]: [id number] [phone] Date:3284-62-69VA [address] () [id number] [place] [address]PN: 11/19/2017 Secondary MAYCO J [place] Insurance:[facility] BISHOPDOB: Community COMMUNITY [facility] [id number] Hospital Number: Repository [id number] Date:9722-64-41TD [address] [address]JP: 11/19/2017 Tertiary NOT GIVENUNK [place] Insurance:SELF PAY [facility] Number: Effective Repository Date:2017-11-19 10/26/2017 MAYCO J Primary MAYCO J [place] [id number] S Insurance:ANTHEM BISHOPDOB: Community [address] MEDICARE [facility] [id number] ADVANTAPolicy Number: Repository [id number]: [id number] [phone] Date:6846-51-24HD [address] () [address], [place] [address]IN: 10/26/2017 Secondary MAYCO J [place] Insurance:[facility] BISHOPDOB: Community *IN [facility] [id number] Hospital Number: Repository [id number] Date:0102-05-39VJ [address] [address]LK: 10/26/2017 Tertiary NOT GIVENUNK [place] Insurance:SELF PAY [facility] Number: Effective Repository Date:2017-09-16 10/25/2017 Mayco [id number] Primary Mayco BishopDOB: [place] [address] Insurance:[facility] [id number] *IN [facility] [address]Ztg: (234) Number: Repository [phone] () [id number] Date:4448-67-84MI [address] [place] [address] [place] [address]EH: 10/25/2017 Secondary NOT GIVENUNK [place] Insurance:[facility]LF [facility] Number: Effective Repository Date:2017-10-25
== END 2018-08-06 12:08 | disposition home or self-care (01) ==
LOC: ED 13:41 → PCU 15:34
PROVIDERS: Admitting Provider Family Medicine; Emergency Provider Emergency Medicine; Family Provider Family Medicine; PCP Family Medicine; Visit Provider Internal Medicine
DX: R07.89 Other chest pain (principal); I25.10 Atherosclerotic heart disease of native coronary artery without angina pectoris; E78.5 Hyperlipidemia, unspecified; I10 Essential (primary) hypertension; E11.9 Type 2 diabetes mellitus without complications; E66.01 Morbid (severe) obesity due to excess calories; I48.0 Paroxysmal atrial fibrillation; I44.1 Atrioventricular block, second degree; Z95.1 Presence of aortocoronary bypass graft; Z85.46 Personal history of malignant neoplasm of prostate; Z79.899 Other long term (current) drug therapy; Z79.82 Long term (current) use of aspirin; Z68.42 Body mass index [BMI] 45.0-49.9, adult; Z71.3 Dietary counseling and surveillance; Z79.84 Long term (current) use of oral hypoglycemic drugs; I11.0 Hypertensive heart disease with heart failure; I50.9 Heart failure, unspecified; Z95.0 Presence of cardiac pacemaker; R06.02 Shortness of breath; G47.33 Obstructive sleep apnea (adult) (pediatric); K21.9 Gastro-esophageal reflux disease without esophagitis
CPT/HCPCS: 36415; 71045; 71275; 78452; 80048; 82962; 84484; 85025; 85379; 85610; 85730; 93005; 93017; 96374; 96375; 96376; 97110; 97162; 97166; 99218; 99284; A9500; J7030; Q9967; A4216; G0378; J2405; J2785

== ENCOUNTER → 2018-10-11 09:10 | Outpatient (CLI) | payer MEDICARE, MEDICAID, SELFPAY ==
[2018-08-05 16:34] VITALS: BMI 45.4
== END ==
PROVIDERS: Family Provider Family Medicine; PCP Family Medicine; Referring Provider Otolaryngology Otolaryngology/Facial Plastic Surgery; Visit Provider Otolaryngology Otolaryngology/Facial Plastic Surgery
DX: Z53.9 Procedure and treatment not carried out, unspecified reason (principal)

== ENCOUNTER 2019-11-24 18:43 | Observation (INO) | payer MEDICARE, MEDICAID, SELFPAY ==
[2018-08-05 16:34] VITALS: BMI 45.4
[2019-11-24 18:50] VITALS: BP 128/63; PULSE 76; PULSE 77; RESP 17; RESP 22; TEMP 36.8; O2SAT 94; O2SAT 96; BMI 45.4
--- NOTE | 2019-11-24 19:04 | CT_ITS ---
STUDY: CTA CHEST REASON FOR EXAM: Male, 79 years old. Left arm and chest numbness. RADIATION DOSAGE (If Supplied By Facility): CTDIvol = ( 18.91 ) mGy, DLP = ( 909.31 ) mGycm TECHNIQUE: The examination was performed with the intravenous administration of 100ml Isovue 370. Post-processing of the angiographic images was performed, with multiplanar reformation and 3D reconstruction. Individualized dose optimization techniques were used for this CT. COMPARISON: 08/05/2018. FINDINGS: Normal enhancement of the main pulmonary artery and right and left pulmonary arteries. Normal enhancement of the bilateral peripheral pulmonary arteries. There is no demonstrated pulmonary embolism. Normal thoracic aorta and visualized great vessels. There is no demonstrated aortic dissection. Normal heart and pericardium. Sternal cerclage wires and vascular clips are present from a prior sternotomy and coronary artery bypass graft procedure (CABG). Normal mediastinum. Normal hilar regions. Normal visualized trachea and bronchi. The lungs are hyper expanded, with flattening of the hemidiaphragms. No infiltrates or effusions. 9 mm nodule in the medial posterior right lower lobe, axial image 85. This is stable since 04/21/2016. There are no pleural effusions. Normal chest wall structures. There are degenerative changes of thoracic spine. Normal visualized upper abdomen. CT/CTA Chest W/WO Contrast IMPRESSION: Normal CTA chest examination, without a demonstrated pulmonary embolism or arterial dissection. No evidence for acute chest disease. Electronically Signed: Beni Wagoner MD at 20:21 EDT , Service support ,
--- NOTE | 2019-11-24 19:04 | EKG12_ITS ---
Test Reason : CHEST PAIN Blood Pressure : / mmHG Vent. Rate : 071 BPM Atrial Rate : 071 BPM P-R Int : 128 ms QRS Dur : 160 ms QT Int : 454 ms P-R-T Axes : -33 -47 119 degrees QTc Int : 493 ms Sinus rhythm Left axis deviation Non-specific intra-ventricular conduction block Inferior infarct , age undetermined Abnormal ECG Confirmed by KENDRICK MEEK, YADIRA ([id number]), deputy editor in chief SANTI RODRIGUEZ ([id number]) on 11/28/2019 2:22:29 PM Referred By: Junito Peter Confirmed By:CARLO MARKS MD
[2019-11-24 19:31] LABS: Absolute Lymphocyte Count 1.54 X10^3/uL (0.83-4.51); Absolute Neutrophil Count 4.6 X10^3/uL (2.0-7.7); Basophil# 0.05 X10^3/uL; Basophil% 0.7 % (0-1); Eosinophil# 0.36 X10^3/uL; Eosinophils% 4.8 % (0-5); Hematocrit 43.2 % (40-54); Hemoglobin 13.9 g/dL (13.0-16.5); Lymphocyte # 1.54 X10^3/ul (4.0); Lymphocyte % 20.6 % (19-41); Mean Corp Hgb Conc 32.2 g/dL (32-36); Mean Platelet Vol. 9.9 fl (6.2-12.0); Monocyte# 0.87 X10^3/uL; Monocyte% 11.6 % (0-10); NRBC Flagged by Analyzer 0 % (0-5); Neutrophil # 4.63 X10^3/uL (2.7-7.7); Platelet Count 215 K/mm3 (150-450); RBC Distribution Width CV 14.4 % (11.6-14.6); White Blood Count 7.5 K/mm3 (4.4-11.0)
[2019-11-24 19:36] LABS: International Normalized Ratio 1.3; Prothrombin Time (Protime)PT. 15.7 SECONDS (11.7-14.9)
[2019-11-24 19:37] LABS: Partial Thromboplast Time 34.3 Seconds (24.1-36.2)
[2019-11-24 19:45] LABS: Anion Gap 5 (5-15); BUN 18 mg/dL (7-18); BUN/Creat Ratio 20.5 RATIO (10-20); Calcium,Total 8.7 mg/dL (8.5-10.1); Chloride 105 mmol/L (98-107); Creatinine, Serum 0.88 mg/dL (0.70-1.30); EST Glomerular Filtration Rate 89 mL/min (>60); Est Glom Filt Rate - Afr Amer 108 mL/min (>60); Estimated Creatinine Clearance 75.93 ml/min; Glucose 155 mg/dL (74-106); Potassium 3.8 mmol/L (3.5-5.1); Sodium Level 140 mmol/L (136-145)
--- NOTE | 2019-11-24 20:42 | ED.DCSUM_ITS ---
- ER Visit Summary Date of Service: 11/24/19 Chief Complaint: Chest pain History of Present Illness: The patient is a 79 M who presents for chest pain. The pain started in his left shoulder. He had some left arm numbness and bilateral head numbness as well. This started around 5 PM. He denies any weakness, facial droop, or speech changes. He denies any history of aortic disease, dissection. He does have a history of coronary disease. He follows with Dr. Mercado. Last stress test was in July 2018. He has a pacemaker. He takes aspirin daily. He had aspirin and nitroglycerin prior to arrival. Physical Examination: Afebrile and vital signs unremarkable except for a res piratory rate of 22. Patient appears in no acute distress. Heart regular. Lungs clear. Stasis changes to his lower extremities, nontender. Pulses strong and equal. No focal or lateralizing neurologic abnormalities except for some subjective paresthesias to his left arm. Test Results: Rhythm at a rate of 71, similar to previous. CBC, BMP, troponin normal. CT chest showed no evidence of dissection or PE. Emergency Department Course and Treatment: Patient was placed on the monitor. He had aspirin and nitro prior to arrival. His work-up was all fairly unremarkable. He has multiple risk factors for coronary disease and his last stress test was over a year ago. Patient will be discussed with the hospitalist for further care. Treatment Plan: As above Disposition: Admission Impression: Chest pain This note was generated with Vidat[employer] dictation software. It may contain incorrect words, spelling, and punctuation that were not noted in review of the chart prior to signing ED Disposition - Plan for ED Patient: Referrals: Bertrand Wanrer MD [Primary Care Provider] -
--- NOTE | 2019-11-24 20:49 | PCM.HP.STD ---
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 Status: Chronic (7) Atherosclerosis of coronary artery of [place] heart without angina pectoris Status: Chronic (8) Presence of cardiac pacemaker Status: Chronic (9) Junctional escape rhythm Status: Chronic (10) CHF (congestive heart failure) Status: Chronic Qualifiers: (11) Obstructive sleep apnea Status: Chronic (12) HLD (hyperlipidemia) Status: Chronic Qualifiers: (13) DM2 (diabetes mellitus, type 2) Status: Chronic Qualifiers: (14) Benign essential HTN Status: Chronic (15) Chronic venous insufficiency Status: Chronic (16) Swelling of lower extremity Status: Chronic (17) Edema of both legs Status: Chronic (18) Morbid obesity Status: Chronic (19) Prostate cancer Status: Chronic (20) Venous stasis dermatitis of both lower extremities Status: Chronic (21) Status post cholecystectomy Status: Chronic (22) Cholecystitis Status: Chronic (23) Asthma Status: Chronic History of Present Illness Date of Admission: 11/24/19 Chief Complaint: chest pain The patient is a 79 year old M with a significant history of BPH; hypertension; diabetes mellitus; paroxysmal A. fib; heart failure with reduced ejection fraction; CAD status post CABG and stents who presents emergency department with chest pain. He described chest pain as heaviness and constant. He rated his chest pain as a 10 out of 10 on onset. At the time of evaluation the emergency department his chest pain was 5 out of 10. His chest pain worsens with activity. He denies any ameliorating factors. He was given 4 baby aspirin and nitroglycerin by the paramedics. Reportedly his blood pressure dropped with nitroglycerin. His symptoms started on the same day and few hours prior to presentation. His symptoms first started with a left shoulder pain. This shoulder pain then progressed to numbness of the left arm. Also he had numbness of his entire head. Associated with his symptoms is diaphoresis and shortness of breath. He denies any nausea or vomiting. ED doctor discussed the case with cardiology. 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) Atherosclerosis of coronary artery of [place] heart without angina pectoris (Chronic) 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) CHF (congestive heart failure) (Chronic) Obstructive sleep apnea (Chronic) HLD (hyperlipidemia) (Chronic) DM2 (diabetes mellitus, type 2) (Chronic) Benign essential HTN (Chronic) Chronic venous insufficiency (Chronic) Swelling of lower extremity (Chronic) Edema of both legs (Chronic) Morbid obesity (Chronic) Prostate cancer (Chronic) Venous stasis dermatitis of both lower extremities (Chronic) Status post cholecystectomy (Chronic) Cholecystitis (Chronic) Asthma (Chronic) Allergies lisinopril Allergy (Verified 11/24/19 18:43) Unknown sertraline Allergy (Verified 11/24/19 18:43) Unknown Home Medications: Ambulatory Orders Medication Instructions Recorded Aspirin [Aspirin, Baby] 81 mg PO DAILY 06/09/13 Nitroglycerin (INPATIENT USE) 0.4 mg SUBLINGUAL Q5M PRN 06/09/13 [Nitrostat] Magnesium Oxide [Mag-Ox 400] 400 mg PO DINNER 10/07/15 Oxybutynin [Ditropan] 5 mg PO TID 01/27/16 Metoprolol Tartrate [Lopressor 25 mg PO BID 05/08/16 (beta emily)] Furosemide [Lasix] 40 mg PO DINNER 10/17/16 Furosemide [Lasix] 80 mg PO DAILY 10/17/16 Glimepiride [Amaryl] 2 mg PO DAILY 05/03/17 Atorvastatin Calcium [Lipitor] 80 mg PO QHS 08/05/18 Polyethylene Glycol 3350 [Miralax] 17 gm PO BID 08/05/18 Tamsulosin HCl [Flomax] 0.4 mg PO QHS 08/05/18 metFORMIN HCl [Glucophage] 500 mg PO TIDCM 08/05/18 Pantoprazole Sodium [Protonix] 40 mg PO DAILY 09/08/18 Calcium Carbonate/Vitamin D3 1 ea PO BID 11/24/19 [Oyster Shell Calcium-Vit D Tab] Cholecalciferol (Vitamin D3) 2,000 unit PO DAILY 11/24/19 [Vitamin D3] Dicyclomine HCl [Bentyl] 10 mg PO ACHS 11/24/19 Famotidine 40 mg PO BID 11/24/19 Fluticasone 0.05% [Flonase Nasal 2 spray NASAL DAILY 11/24/19 [place]] Montelukast [Singulair] 10 mg PO DAILY 11/24/19 Surgical History: coronary bypass surgery - 1998, total hip arthroplasty - Bilateral, - - Open cholecystectomy - September 2015. Open reduction and internal fixation of a right hip fracture. Psychiatric History: No pertinent psych hx Lives: [facility] Smoking Status: Never smoker Alcohol: Occasional - *Family History Maternal History Items: Cancer - Lung, - Paternal History Items: Heart Disease Sibling History Items: Heart Disease Review of Systems Constitutional: Denies: Chills, Fever, Weight Change HEENT: Denies: Head Aches, Sinus Congestion, Sinus Drainage Cardiovascular: Reports: Chest Pain. Denies: Palpitations Respiratory: Reports: Shortness of Breath. Denies: Cough, Shortness of breath at rest, Sputum production Gastrointestinal: Denies: Abdominal Pain, Nausea, Vomiting Genitourinary: Denies: Dysuria Musculoskeletal: Denies: Joint Pain, Joint Tenderness Skin: Denies: Rash, Wounds Neurological: Denies: Numbness, Tingling, Focal weakness Psychiatric: Denies: Anxiety, Depression, Homicidal Ideations, Suicidal Ideations Hematologic/ Lymphatic: Denies: Easy Bruising, Easy Bleeding VTE Information - Inpt Only VTE Present on Admission: No VTE Mechan Device Prophylaxis: None VTE Pharm Prophylaxis ordered?: No Reason prophylaxis not ordered:: Treatment Not Indicated - Started on heparin drip for chest pain. - Physical Exam Vitals/I&O's: Vital Signs Temp Pulse Resp BP Pulse Ox 98.2 F 77 22 H 128/63 H 96 11/24/19 18:50 11/24/19 18:50 11/24/19 18:50 11/24/19 18:50 11/24/19 18:50 Oxygen Flow Rate (L/min) 2 Oxygen Delivery Method Nasal Cannula Weight: 152 kg Body Mass Index (BMI) 45.4 General: Alert, Oriented x3, Cooperative HEENT: Atraumatic, PERRLA, EOMI, Normocephalic Neck: Supple, Trachea Midline Lungs: Clear to auscultation, Normal air movement Cardiovascular: Regular rate, Normal S1, Normal S2, No murmurs Abdomen: Bowel Sounds Present, Soft, Non Tender Extremities: Capillary Refill Less than 3 Seconds, Edema - Mild; bilateral lower extremity edema. Skin: No rashes, No breakdown Musculoskeletal: No Tenderness to Palpation of Joints or Extremities Neurological: Cranial nerves II-XII grossly intact Psych/Mental Status: Normal Affect, Appropriate Laboratory Results 11/24/19 19:05: WBC 7.5, RBC 4.80, Hgb 13.9, Hct 43.2, MCV 90.0, MCH 29.0, MCHC 32.2, RDW Std Deviation 47.0 H, RDW Coeff of Yue 14.4, Plt Count 215, MPV 9.9, Immature Gran % (Auto) 0.300, Neut % (Auto) 62.0, Lymph % (Auto) 20.6, Maury % (Auto) 11.6 H, Eos % (Auto) 4.8, Baso % (Auto) 0.7, Absolute Neuts (auto) 4.6, Absolute Lymphs (auto) 1.54, Nucleated RBC % 0 11/24/19 19:05: Sodium 140, Potassium 3.8, Chloride 105, Carbon Dioxide 30.0, Anion Gap 5, BUN 18, Creatinine 0.88, Estim Creat Clear Calc 75.93, Est GFR (MDRD) Af Amer 108, Est GFR (MDRD) Non-Af 89, BUN/Creatinine Ratio 20.5 H, Glucose 155 H, Calcium 8.7, Troponin I < 0.015 11/24/19 19:05: PT 15.7 H, INR 1.3, APTT 34.3 Assessment/Plan All Active Problems Chest pain (Acute) Ileus following gastrointestinal surgery (Resolved) Abdominal pain (Resolved) Chest pain (Resolved) Chest pain (Resolved) Heme + stool (Resolved) The patient is a 79 year old M with a significant history of BPH; hypertension; diabetes mellitus; paroxysmal A. fib; heart failure with reduced ejection fraction; CAD status post CABG and stents who presents emergency department with chest pain. Chest pain EKG showed left bundle branch block. Of note patient has a history of left bundle branch block. Placed on a monitored bed at PCU Chest CTA did not show any evidence of acute chest disease. Received aspirin 324 mg as above. ASA 81 mg p.o. daily continued Received fentanyl IV at emergency department. Fentanyl PRN ordered. We will check lipid panel. Statin: Lipitor 80 mg continued. Discussed case with cardiology. Ranexa; heparin; and Plavix recommended. Will order as recommended. Cardiology will follow up with hospitalist in a.m. Home metoprolol continued. Of note patient is allergic to lisinopril. Optimize potassium by giving 20 mEq of potassium chloride. Serial cardiac enzymes Stat EKG as needed for chest pain Low-grade fever Temperature of 99.3F. Patient from assisted home facility. Reportedly symptoms of shortness of breath with chest pain. Tachypnea. White count is unremarkable. Clinical monitoring. Trend vital signs. Heart failure with reduced ejection fraction Stress test on 08/06/2018 showed gated ejection fraction of 46% with hypokinesis of the inferior wall. Pharmacological myocardial perfusion test showed evidence of previous inferior infarct. Mild cardiomyopathy. Left bundle branch block was present. Metoprolol continued as above. Patient with pacemaker. Lasix continued Paroxysmal A. fib Aspirin continued. Patient reported Coumadin and another anticoagulant was stopped because of hemoptysis. Metoprolol continued Diabetes mellitus Patient with hyperglycemia on presentation. Since it is early in his admission hold home oral hypoglycemic medications of glimepiride and metformin. Accu-Chek QA CHS with correction scale insulin. BPH and urgency Tamsulosin and Ditropan continued. Morbid obesity: BMI of 45.4 kg/m?. Complicates care. Recommend lifestyle modification. DVT prophylaxis Not indicated since patient has been start on heparin drip for chest pain. OBSV E&M: [id number] Initial observation care L3
[2019-11-24] MEDS: fentaNYL 100 MCG/2 ML Ampul 50 MCG IV (21:08)
[2019-11-24 21:14] VITALS: BP 132/77; PULSE 73; RESP 25; TEMP 37.4; O2SAT 97
[2019-11-24 22:00] VITALS: BP 131/55; PULSE 65; RESP 18; O2SAT 97
[2019-11-24 23:00] VITALS: BP 134/61; PULSE 70; RESP 18; TEMP 37; O2SAT 94
[2019-11-24 23:02] VITALS: BMI 44.7
[2019-11-24 23:10] VITALS: BMI 44.7
--- NOTE | 2019-11-24 23:24 | EKG12_ITS ---
Test Reason : CP ADMIT Blood Pressure : / mmHG Vent. Rate : 067 BPM Atrial Rate : 441 BPM P-R Int : 000 ms QRS Dur : 166 ms QT Int : 482 ms P-R-T Axes : 000 -65 101 degrees QTc Int : 509 ms Ventricular-paced rhythm Abnormal ECG When compared with ECG of 06-AUG-2018 05:48, Vent. rate has decreased BY 3 BPM Confirmed by LAURA MEEK, SHAR ([id number]), editor producer SANTI RODRIGUEZ ([id number]) on 11/28/2019 2:41:15 PM Referred By: Junito Peter Confirmed By:SHAR SANCHEZ MD
[2019-11-25] VITALS (8 sets, daily range): BP systolic 123–144; BP diastolic 56–77; PULSE 63–96; RESP 16–20; TEMP 36.6; O2SAT 92–96
[2019-11-25 00:06] LABS: Bedside Glucose 96 mg/dL (70-110)
[2019-11-25] MEDS: Metoprolol Tartrate 25 MG Tablet PO ×2 (00:30→08:46)
[2019-11-25] MEDS: Atorvastatin Calcium 80 MG Tablet PO (00:30)
[2019-11-25] MEDS: Dicyclomine 10 MG Capsule PO ×3 (00:30→11:21)
[2019-11-25] MEDS: Oxybutynin 5 MG Tablet PO ×2 (00:31→06:17)
[2019-11-25] MEDS: Calcium Carb/Vitamin D 1 TABLET Tablet PO ×2 (00:31→08:47)
[2019-11-25] MEDS: Tamsulosin HCl 0.4 MG Capsule PO (00:31)
[2019-11-25] MEDS: Famotidine 20 MG Tablet 40 MG PO ×2 (00:31→08:47)
[2019-11-25] MEDS: Ranolazine 500 MG Tablet PO ×2 (00:31→08:48)
[2019-11-25] MEDS: HEPARIN/D5w 25,000 UNITS 25,000 UNITS/250 ML IV.SOLN. 19 UNITS IV (00:37)
[2019-11-25] MEDS: Heparin Injection (Vial) 5,000 UNIT/ML VIAL 12000 UNIT IV (00:38)
[2019-11-25] MEDS: Clopidogrel Bisulfate 300 MG Tablet PO (00:39)
[2019-11-25] MEDS: Acetaminophen 325 MG Tablet 650 MG PO (00:45)
[2019-11-25] MEDS: fentaNYL 100 MCG/2 ML Ampul 25 MCG IV ×2 (01:58→06:11)
[2019-11-25 03:10] LABS: Absolute Lymphocyte Count 1.86 X10^3/uL (0.83-4.51); Absolute Neutrophil Count 3.9 X10^3/uL (2.0-7.7); Basophil# 0.05 X10^3/uL; Basophil% 0.7 % (0-1); Eosinophil# 0.34 X10^3/uL; Eosinophils% 4.8 % (0-5); Hematocrit 41.7 % (40-54); Hemoglobin 13.5 g/dL (13.0-16.5); Lymphocyte # 1.86 X10^3/ul (4.0); Lymphocyte % 26.4 % (19-41); Mean Corp Hgb Conc 32.4 g/dL (32-36); Mean Corpuscular Volume 89.7 fL (80-94); Mean Platelet Vol. 9.8 fl (6.2-12.0); Monocyte# 0.84 X10^3/uL; Monocyte% 11.9 % (0-10); NRBC Flagged by Analyzer 0 % (0-5); Neutrophil # 3.93 X10^3/uL (2.7-7.7); Neutrophil % 55.9 % (47-70); Platelet Count 196 K/mm3 (150-450); RBC Distribution Width CV 14.6 % (11.6-14.6); RBC Distribution Width SD 47.5 fl (35.1-43.9); Red Blood Count 4.65 M/mm3 (4.6-6.2)
[2019-11-25 03:19] LABS: Cholesterol 104 mg/dL (200); High Density Lipoprotein 28 mg/dL; Triglycerides 161 mg/dL; Very Low Density Lipoprotein 32 mg/dL (5-40)
[2019-11-25 06:20] LABS: International Normalized Ratio 1.3
[2019-11-25 06:21] LABS: Partial Thromboplast Time 88.2 Seconds (24.1-36.2)
[2019-11-25 06:26] LABS: Bedside Glucose 122 mg/dL (70-110)
[2019-11-25] MEDS: Aspirin E.C. 81 MG Tablet PO (08:44)
[2019-11-25] MEDS: Fluticasone 0.05% 1 SPRAY NASAL.SRY 2 SPRAY NASAL (08:44)
[2019-11-25] MEDS: Polyethylene Glycol 3350 17 GM PACKET PO (08:46)
[2019-11-25] MEDS: Furosemide 80 MG Tablet PO (08:46)
[2019-11-25] MEDS: Montelukast 10 MG Tablet PO (08:48)
[2019-11-25] MEDS: Pantoprazole Sodium 40 MG Tablet PO (08:48)
[2019-11-25] MEDS: Clopidogrel Bisulfate 75 MG Tablet PO (08:49)
[2019-11-25] MEDS: Glucerna Shake 120 ML LIQUID PO (08:54)
--- NOTE | 2019-11-25 09:57 | DCINST_ITS ---
You will use the following diet at home:: Calorie/Carbohydrate Controlled (specify 1200, 1400, etc) - 1800, Cardiac Discharge Activity: Return to Normal Activity Call your doctor if you observe: Shortness of breath, Dizziness, Fainting spells, Chest pain - worsening Allergies/Adverse Reactions: Allergies lisinopril Allergy (Verified 11/24/19 18:43) Unknown sertraline Allergy (Verified 11/24/19 18:43) Unknown Medications to take at Discharge Aspirin [Aspirin, Baby] 81 mg PO DAILY 06/09/13 Nitroglycerin (INPATIENT USE) [Nitrostat] 0.4 mg SUBLINGUAL Q5M PRN 06/09/13 Magnesium Oxide [Mag-Ox 400] 400 mg PO DINNER 10/07/15 Oxybutynin [Ditropan] 5 mg PO TID 01/27/16 Metoprolol Tartrate [Lopressor (beta emily)] 25 mg PO BID 05/08/16 Furosemide [Lasix] 40 mg PO DINNER 10/17/16 Furosemide [Lasix] 80 mg PO DAILY 10/17/16 Glimepiride [Amaryl] 2 mg PO DAILY 05/03/17 Atorvastatin Calcium [Lipitor] 80 mg PO QHS 08/05/18 Polyethylene Glycol 3350 [Miralax] 17 gm PO BID 08/05/18 Tamsulosin HCl [Flomax] 0.4 mg PO QHS 08/05/18 metFORMIN HCl [Glucophage] 500 mg PO TIDCM 08/05/18 Pantoprazole Sodium [Protonix] 40 mg PO DAILY 09/08/18 Calcium Carbonate/Vitamin D3 [Oyster Shell 500-Vit D3 200 Tb] 1 ea PO BID 11/24/19 Cholecalciferol (Vitamin D3) [Vitamin D3] 2,000 unit PO DAILY 11/24/19 Dicyclomine HCl [Bentyl] 10 mg PO ACHS 11/24/19 Famotidine 40 mg PO BID 11/24/19 Fluticasone 0.05% [Flonase Nasal [place]] 2 spray NASAL DAILY 11/24/19 Montelukast [Singulair] 10 mg PO DAILY 11/24/19 Clopidogrel Bisulfate [Plavix] 75 mg PO DAILY #30 tab 11/25/19 Ranolazine [Ranexa] 500 mg PO BID #60 tab 11/25/19 The following prescriptions were given: Clopidogrel Bisulfate [Plavix] 75 mg PO DAILY #30 tab Transmission Status: Pending to [facility] Ranolazine [Ranexa] 500 mg PO BID #60 tab Transmission Status: Pending to [facility] Primary Care Physician: Bertrand Warner MD [Primary Care Provider] - Within 2 Weeks Test Results: Test results from this visit will be discussed in further detail at your follow- up appointment, if applicable. Please Follow Up With: [facility] Usher When: 1-2 weeks Proposed Discharge Date: 11/25/19
--- NOTE | 2019-11-25 10:01 | PCM.DC.SUM ---
Discharge Date and Diagnosis Date of Admission: 11/24/19 Date of Discharge: 11/25/19 - Primary Discharge Diagnosis Chest pain - Secondary Discharge Diagnosis Chronic Problems Paroxysmal atrial fibrillation (Chronic) H/O coronary artery bypass surgery (Chronic) Complete heart block (Chronic) Symptomatic bradycardia (Chronic) Mobitz type 1 second degree atrioventricular block (Chronic) Atherosclerosis of coronary artery of hughes heart without angina pectoris (Chronic) 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) CHF (congestive heart failure) (Chronic) Obstructive sleep apnea (Chronic) HLD (hyperlipidemia) (Chronic) DM2 (diabetes mellitus, type 2) (Chronic) Benign essential HTN (Chronic) Chronic venous insufficiency (Chronic) Swelling of lower extremity (Chronic) Edema of both legs (Chronic) Morbid obesity (Chronic) Prostate cancer (Chronic) Venous stasis dermatitis of both lower extremities (Chronic) Status post cholecystectomy (Chronic) Cholecystitis (Chronic) Asthma (Chronic) Hospital Course and Treatment Imaging Results: Clinical Impression(s) from Imaging Studies Chest CTA 11/24/19 19:04 IMPRESSION: Normal CTA chest examination, without a demonstrated pulmonary embolism or arterial dissection. No evidence for acute chest disease. Electronically Signed: Beni Wagoner MD at 20:21 EDT , Service support , Operations: None Procedures: None Summary of Care Provided: The patient is a 79 year old M presents with chest pain. Chest pain was associated with left arm and shoulder pain, left arm paresthesias, facial paresthesias. Patient was brought to the hospital and underwent a cardiac evaluation with troponins and EKG which were unremarkable. Patient was started on Ranexa. Today, the patient's pain is better though he still having some pain in his left shoulder. Dr. Rojas, of cardiology was contacted and advised clopidogrel as well as Ranexa to be continued. Patient to follow-up with his abnormal bindery machine tender. Patient's bindery machine tender is at [facility]. He is instructed to follow-up with his bindery machine tender in the next coming weeks. Patient may require a left heart catheterization but given the current pandemic, cardiology feels that it initiation can be deferred as outpatient particular since he is not having a myocardial infarction at this time. [] - Physical Exam Vitals/I&O's: Vital Signs Temp Pulse Resp BP Pulse Ox 36.6 C 64 16 123/56 H 96 11/25/19 05:00 11/25/19 08:46 11/25/19 05:00 11/25/19 05:00 11/25/19 07:48 Oxygen Flow Rate (L/min) 4 Oxygen Delivery Method Nasal Cannula Weight: 149.6 kg Body Mass Index (BMI) 44.7 Intake and Output for Last 24 Hours 11/23/19 11/24/19 11/25/19 23:59 23:59 23:59 Intake Total 821.28 / 821.28 Balance 821.28 / 821.28 General: Alert, No apparent distress HEENT: Atraumatic, Normocephalic Oral: Moist Mucosa, No Gingival or Mucosal Lesions/ Ulcerations Neck: No Nodes, Trachea Midline Lungs: Clear to auscultation, Normal air movement, No rhonchi, No wheeze, No rales Cardiovascular: Regular rate, Regular Rhythm, Normal S1, Normal S2, No murmurs Abdomen: Bowel Sounds Present, Soft, Non Tender, Non-Distended, No Hepato-splenomegaly Extremities: No edema, No Calf Tenderness Laboratory Results 11/24/19 19:05: WBC 7.5, RBC 4.80, Hgb 13.9, Hct 43.2, MCV 90.0, MCH 29.0, MCHC 32.2, RDW Std Deviation 47.0 H, RDW Coeff of Yue 14.4, Plt Count 215, MPV 9.9, Immature Gran % (Auto) 0.300, Neut % (Auto) 62.0, Lymph % (Auto) 20.6, [place] % (Auto) 11.6 H, Eos % (Auto) 4.8, Baso % (Auto) 0.7, Absolute Neuts (auto) 4.6, Absolute Lymphs (auto) 1.54, Nucleated RBC % 0 11/24/19 19:05: Sodium 140, Potassium 3.8, Chloride 105, Carbon Dioxide 30.0, Anion Gap 5, BUN 18, Creatinine 0.88, Estim Creat Clear Calc 75.93, Est GFR (MDRD) Af Amer 108, Est GFR (MDRD) Non-Af 89, BUN/Creatinine Ratio 20.5 H, Glucose 155 H, Calcium 8.7, Troponin I < 0.015 11/24/19 19:05: PT 15.7 H, INR 1.3, APTT 34.3 11/24/19 23:42: Troponin I < 0.015 11/25/19 00:02: POC Glucose 96 11/25/19 02:29: Triglycerides 161, Cholesterol 104, LDL Cholesterol 44, VLDL Cholesterol 32, HDL Cholesterol 28 L 11/25/19 02:29: Troponin I < 0.015 11/25/19 02:29: WBC 7.0, RBC 4.65, Hgb 13.5, Hct 41.7, MCV 89.7, MCH 29.0, MCHC 32.4, RDW Std Deviation 47.5 H, RDW Coeff of Yue 14.6, Plt Count 196, MPV 9.8, Immature Gran % (Auto) 0.300, Neut % (Auto) 55.9, Lymph % (Auto) 26.4, [place] % (Auto) 11.9 H, Eos % (Auto) 4.8, Baso % (Auto) 0.7, Absolute Neuts (auto) 3.9, Absolute Lymphs (auto) 1.86, Nucleated RBC % 0 11/25/19 05:53: Troponin I < 0.015 11/25/19 05:53: PT 16.0 H, INR 1.3, APTT 88.2 H 11/25/19 06:16: POC Glucose 122 H Current Medications Acetaminophen (Tylenol) 650 mg PO Q6H PRN PRN PRN Reason: Pain Score 1-10/Temp > 100.7 F Last Admin: 11/25/19 00:45 Dose: 650 mg Documented by: Aspirin (Ecotrin) 81 mg PO DAILY@0800 [facility] Last Admin: 11/25/19 08:44 Dose: 81 mg Documented by: Atorvastatin Calcium (Lipitor) 80 mg PO QHS [facility] Last Admin: 11/25/19 00:30 Dose: 80 mg Documented by: Calcium/Vitamin D (Os-Hernandez 500mg + D) 1 tablet PO BID [facility] Last Admin: 11/25/19 08:47 Dose: 1 tablet Documented by: Cholecalciferol (Vitamin D (25mcg)) 2,000 unit PO DAILY [facility] Last Admin: 11/25/19 08:48 Dose: 2,000 unit Documented by: Clopidogrel Bisulfate (Plavix) 75 mg PO DAILY [facility] Last Admin: 11/25/19 08:49 Dose: 75 mg Documented by: Dextrose (D50w Syringe) 0 gm IV X1 PRN; Protocol PRN Reason: Hypoglycemia Dicyclomine HCl (Bentyl) 10 mg PO ACHS [facility] Last Admin: 11/25/19 08:43 Dose: 10 mg Documented by: Famotidine (Pepcid) 40 mg PO BID [facility] Last Admin: 11/25/19 08:47 Dose: 40 mg Documented by: Fentanyl Citrate (Sublimaze (100mcg Ampule)) 25 mcg IV Q2H PRN PRN PRN Reason: chest pain 5-06/01 Last Admin: 11/25/19 06:11 Dose: 25 mcg Documented by: Fluticasone Propionate (Flonase Nasal Crum) 2 spray NASAL DAILY [facility] Last Admin: 11/25/19 08:44 Dose: 2 spray Documented by: Furosemide (Lasix) 40 mg PO DINNER [facility] Furosemide (Lasix) 80 mg PO DAILY [facility] Last Admin: 11/25/19 08:46 Dose: 80 mg Documented by: Glucagon () 1 mg IM .X1 PRN PRN Reason: Hypoglycemia Heparin Sodium (Porcine) (Heparin Na) 0 unit IV UD PRN; Protocol Sodium Chloride () 250 mls @ 15 mls/hr IV .[id number] PRN PRN Reason: Saline Flush Sodium Chloride () 250 mls @ 15 mls/hr IV .[id number] PRN PRN Reason: Additional IVPB Infusion Heparin Sodium/Dextrose () 25,000 units in 250 mls @ 19 mls/hr IV .[id number] [facility]; Protocol Last Titration: 11/25/19 07:00 Dose: 1,800 units/hr, 18 mls/hr Documented by: Insulin Human Lispro (Humalog Kwikpen (Bkc)) 0 unit SC [facility]; Protocol Last Admin: 11/25/19 08:44 Dose: Not Given Documented by: Magnesium Oxide (Mag-Ox 400) 400 mg PO DINNER [facility] Metoprolol Tartrate (Lopressor (Beta Jack)) 25 mg PO BID [facility] Last Admin: 11/25/19 08:46 Dose: 25 mg Documented by: Montelukast Sodium (Singulair) 10 mg PO DAILY [facility] Last Admin: 11/25/19 08:48 Dose: 10 mg Documented by: Nutritional Formula (Lactose Free) (Glucerna Shaserena) 120 ml PO 4X/DAY [facility] Last Admin: 11/25/19 08:54 Dose: 120 ml Documented by: Ondansetron HCl (Zofran) 4 mg IV Q8H PRN PRN PRN Reason: NAUSEA/VOMITING Oxybutynin Chloride (Ditropan) 5 mg PO TID [facility] Last Admin: 11/25/19 06:17 Dose: 5 mg Documented by: Pantoprazole Sodium (Protonix) 40 mg PO DAILY [facility] Last Admin: 11/25/19 08:48 Dose: 40 mg Documented by: Polyethylene Glycol (Miralax) 17 gm PO BID [facility] Last Admin: 11/25/19 08:46 Dose: 17 gm Documented by: Ranolazine (Ranexa) 500 mg PO BID [facility] Last Admin: 11/25/19 08:48 Dose: 500 mg Documented by: Sodium Chloride () 10 - 40 ml IV UD PRN PRN Reason: SALINE FLUSH Tamsulosin HCl (Flomax) 0.4 mg PO QHS [facility] Last Admin: 11/25/19 00:31 Dose: 0.4 mg Documented by: Discharge Diet: Low fat/ Low Cholesterol Discharge Activity: Return to Normal Activity Call your doctor if you observe: Shortness of breath, Dizziness, Fainting spells, Chest pain - worsening Home Medications: Medications to take at Discharge Aspirin [Aspirin, Baby] 81 mg PO DAILY 06/09/13 Nitroglycerin (INPATIENT USE) [Nitrostat] 0.4 mg SUBLINGUAL Q5M PRN 06/09/13 Magnesium Oxide [Mag-Ox 400] 400 mg PO DINNER 10/07/15 Oxybutynin [Ditropan] 5 mg PO TID 01/27/16 Metoprolol Tartrate [Lopressor (beta jack)] 25 mg PO BID 05/08/16 Furosemide [Lasix] 40 mg PO DINNER 10/17/16 Furosemide [Lasix] 80 mg PO DAILY 10/17/16 Glimepiride [Amaryl] 2 mg PO DAILY 05/03/17 Atorvastatin Calcium [Lipitor] 80 mg PO QHS 08/05/18 Polyethylene Glycol 3350 [Miralax] 17 gm PO BID 08/05/18 Tamsulosin HCl [Flomax] 0.4 mg PO QHS 08/05/18 metFORMIN HCl [Glucophage] 500 mg PO TIDCM 08/05/18 Pantoprazole Sodium [Protonix] 40 mg PO DAILY 09/08/18 Calcium Carbonate/Vitamin D3 [Oyster Shell 500-Vit D3 200 Tb] 1 ea PO BID 11/24/19 Cholecalciferol (Vitamin D3) [Vitamin D3] 2,000 unit PO DAILY 11/24/19 Dicyclomine HCl [Bentyl] 10 mg PO ACHS 11/24/19 Famotidine 40 mg PO BID 11/24/19 Fluticasone 0.05% [Flonase Nasal Crum] 2 spray NASAL DAILY 11/24/19 Montelukast [Singulair] 10 mg PO DAILY 11/24/19 Clopidogrel Bisulfate [Plavix] 75 mg PO DAILY #30 tab 11/25/19 Ranolazine [Ranexa] 500 mg PO BID #60 tab 11/25/19 Following Prescrptions Were Given to Patient: Clopidogrel Bisulfate [Plavix] 75 mg PO DAILY #30 tab Transmission Status: Pending to [facility] Ranolazine [Ranexa] 500 mg PO BID #60 tab Transmission Status: Pending to [facility] Primary Care Physician: Bertrand Warner MD [Primary Care Provider] - Within 2 Weeks Please Follow Up With: [facility] Appointment Specialist When: 1-2 weeks Disposition: Home Minutes spent on discharge:: 32 Patient Condition:: Fair Medical Necessity - Tobacco Use Smoking Status: Never smoker Meaningful Use Info Meaningful Use Diagnoses (Choose all that apply): None applicable OBSV E&M: 08746 Observation care discharge
[2019-11-25 12:00] LABS: Bedside Glucose 168 mg/dL (70-110)
== END 2019-11-25 10:00 | disposition home or self-care (01) ==
LOC: ED 20:31 → PCU 21:50
PROVIDERS: Admitting Provider Hospitalist; Emergency Provider Emergency Medicine; PCP Family Medicine; Referring Provider Hospitalist
DX: R07.89 Other chest pain (principal); I48.0 Paroxysmal atrial fibrillation; I25.10 Atherosclerotic heart disease of native coronary artery without angina pectoris; G47.33 Obstructive sleep apnea (adult) (pediatric); I11.0 Hypertensive heart disease with heart failure; E78.5 Hyperlipidemia, unspecified; E11.65 Type 2 diabetes mellitus with hyperglycemia; N40.1 Benign prostatic hyperplasia with lower urinary tract symptoms; R39.15 Urgency of urination; M25.512 Pain in left shoulder; R20.0 Anesthesia of skin; I50.22 Chronic systolic (congestive) heart failure; R60.0 Localized edema; E66.01 Morbid (severe) obesity due to excess calories; Z79.899 Other long term (current) drug therapy; Z79.84 Long term (current) use of oral hypoglycemic drugs; Z79.82 Long term (current) use of aspirin; Z79.51 Long term (current) use of inhaled steroids; Z95.0 Presence of cardiac pacemaker; Z95.1 Presence of aortocoronary bypass graft; Z71.3 Dietary counseling and surveillance; Z85.46 Personal history of malignant neoplasm of prostate; Z68.42 Body mass index [BMI] 45.0-49.9, adult
CPT/HCPCS: 36415; 71275; 80048; 80061; 82962; 84484; 85025; 85610; 85730; 93005; 96365; 96366; 96374; 96376; 97162; 97165; 99285; 99406; Q9967; A4216

== ENCOUNTER 2020-05-04 15:21 | Emergency (ER) | payer MEDICARE, MEDICAID, SELFPAY ==
[2020-05-04 15:22] VITALS: BP 148/68; PULSE 78; RESP 18; TEMP 37; O2SAT 97; BMI 45.3
--- NOTE | 2020-05-04 15:38 | EKG12_ITS ---
Test Reason : Blood Pressure : / mmHG Vent. Rate : 077 BPM Atrial Rate : 025 BPM P-R Int : 000 ms QRS Dur : 168 ms QT Int : 488 ms P-R-T Axes : 000 -77 102 degrees QTc Int : 552 ms Ventricular-paced rhythm with occasional Premature ventricular complexes Abnormal ECG Confirmed by LAURA MEEK, SHAR ([id number]), editor managing newspaper LEIGH CABA ([id number]) on 05/08/2020 11:24:22 AM Referred By: LESLI Confirmed By:SHAR SANCHEZ MD
--- NOTE | 2020-05-04 15:41 | ED.VIS.GEN ---
History of Present Illness Chief Complaint: Fall Informant: Patient Onset: Today Maximum Severity: Mild Narrative: Left hip pain after fall today History of CABG pacemaker CHF falls multiple other medical problems reports he stumbled today in his assisted-living environment fell to the ground has pain to the left hip cannot walk or ambulate, he has chronic history of falls, he has multiple walking assist devices walker or cane wheelchair could not get up paramedics were called he was brought to the ED, he could not walk for EMS Past Medical History - Allergies and Home Meds Allergies/Adverse Reactions: Allergies lisinopril Allergy (Verified 05/04/20 15:25) Unknown sertraline Allergy (Verified 05/04/20 15:25) Unknown Primary Care Physician: Bertrand Warner MD [Primary Care Provider] - Past Medical History: - - Includes as above Surgical History: coronary bypass surgery - 1998, total hip arthroplasty - Bilateral, - - Open cholecystectomy - September 2015. Open reduction and internal fixation of a right hip fracture. Smoking Status: Never smoker - Family History Maternal Family History: Reports: Cancer - Lung, - Paternal Family History: Reports: Heart Disease Sibling Family History: Reports: Heart Disease Review of Systems General: Denies: Chills, Fever, Sweats Eyes: Denies: Visual changes - bilaterally, Diplopia ENT: Denies: Rhinorrhea, Sore throat Cardiovascular: Denies: Chest pain, Palpitations Respiratory: Denies: Dyspnea, Cough, Dyspnea on exertion Gastrointestinal: Denies: Abdominal pain, Nausea, Vomiting, Diarrhea, Melena, Hematochezia Genitourinary: Denies: Dysuria, Hematuria, Frequency Musculoskeletal: Reports: Extremity Pain. Denies: Back pain Skin: Denies: Rash, Wounds Neurological: Denies: Headache, Weakness, Numbness Physical Exam Vital Signs/Narrative: Vital Signs Temp Pulse Resp BP Pulse Ox 05/04/20 15:22 98.6 F 78 18 148/68 H 97 General: Well nourished, Well developed, No Acute Distress Head: Normocephalic, Atraumatic Eyes: Perrl, EOMI ENT: Moist mucous membranes, No rhinorrhea Neck: Supple, Nontender Cardiovascular: Regular rate, Regular rhythm, No murmurs Respiratory: No distress, CTA bilaterally, Chest nontender Abdomen: Soft, Nontender, Nondistended, Normal bowel sounds Back: Nontender, Normal Inspection Extremities: Nontender, Edema, - - Has chronic bilateral lower extremity edema that is unchanged he has moderate pain to the left hip area no obvious shortening or rotation, he indicates he has a history of bilateral hip replacements his distal knee tib-fib ankle exam other than the brawny edema are unchanged neurologically he is awake and alert answering questions no head neck chest no back pain Skin: Normal color Neurological: Alert, Oriented x3, Cranial nerves II-XII grossly intact, Normal Strength, Normal Sensation Psychological: Normal affect, Normal Mood Diagnostic/Tx/Re-eval - Medical Decision Making Given all the above screening labs x-rays, EKG shows a paced rhythm nothing acute rate 77 Screening labs are unremarkable his x-rays are unremarkable, on reevaluation is feeling much better he has full range of motion of the hip we discussed inpatient versus outpatient management he does not wish to be admitted he wants to go home indicates the nurses do assist him there he has walking devices in a wheelchair and he will return for change in symptoms Home stable declined admission Impression fall with left hip injury ED Disposition - Plan for ED Patient: Diagnosis: Injury of left hip Instructions: ED Fall Uncertain Cause Referrals: Bertrand Warner MD [Primary Care Provider] -
[2020-05-04] MEDS: morphine 8 MG/ML Syringe IV (15:43)
[2020-05-04] MEDS: Ondansetron 4 MG/2 ML Vial IV (15:43)
--- NOTE | 2020-05-04 16:05 | RAD_ITS ---
STUDY: X-RAY - PELVIS AND LEFT HIP REASON FOR EXAM: Male, 79 years old. FALL TODAY FROM STANDING POSITION. PAIN IN LEFT HIP AND DIFFICULTY STRAIGHTENING LEFT LEG TECHNIQUE: 3 views of the pelvis and hip. COMPARISON: 08/22/2012, 02/14/2018. FINDINGS: There is a non-specific bowel gas pattern. Normal visualized soft tissue structures. Normal bilateral iliac wings, sacroiliac joints and visualized sacrum. Normal bilateral superior and inferior pubic rami. Normal pubic symphysis. Normal bilateral ischial tuberosities. Satisfactory appearance of bilateral hip arthroplasties. No dislocation. No acute fractures. RAD/HIP, UNI W/ Pelvis 2-3 Views IMPRESSION: No acute abnormality. Electronically Signed: Beni Wagoner MD at 16:40 EDT , Service support ,
[2020-05-04 16:07] LABS: Absolute Lymphocyte Count 1.77 X10^3/uL (0.83-4.51); Absolute Neutrophil Count 4.2 X10^3/uL (2.0-7.7); Basophil# 0.04 X10^3/uL; Basophil% 0.5 % (0-1); Eosinophil# 0.34 X10^3/uL; Eosinophils% 4.6 % (0-5); Hematocrit 42.1 % (40-54); Hemoglobin 13.7 g/dL (13.0-16.5); Lymphocyte # 1.77 X10^3/ul (4.0); Lymphocyte % 24.1 % (19-41); Mean Corp Hgb Conc 32.5 g/dL (32-36); Mean Platelet Vol. 9.6 fl (6.2-12.0); Monocyte% 13.6 % (0-10); NRBC Flagged by Analyzer 0 % (0-5); Neutrophil # 4.15 X10^3/uL (2.7-7.7); Neutrophil % 56.7 % (47-70); Platelet Count 224 K/mm3 (150-450); RBC Distribution Width CV 13.8 % (11.6-14.6); RBC Distribution Width SD 45.2 fl (35.1-43.9); Red Blood Count 4.73 M/mm3 (4.6-6.2); White Blood Count 7.3 K/mm3 (4.4-11.0)
[2020-05-04 16:32] LABS: Anion Gap 5 (5-15); BUN 17 mg/dL (7-18); BUN/Creat Ratio 15.6 RATIO (10-20); Calcium,Total 8.4 mg/dL (8.5-10.1); Chloride 104 mmol/L (98-107); Creatinine, Serum 1.09 mg/dL (0.70-1.30); EST Glomerular Filtration Rate 69 mL/min (>60); Est Glom Filt Rate - Afr Amer 84 mL/min (>60); Estimated Creatinine Clearance 64.94 ml/min; Glucose 129 mg/dL (74-106); Potassium 3.6 mmol/L (3.5-5.1); Sodium Level 139 mmol/L (136-145)
== END 2020-05-04 17:50 | disposition home or self-care (01) ==
PROVIDERS: Emergency Provider Emergency Medicine; PCP Family Medicine
DX: S79.912A Unspecified injury of left hip, initial encounter (principal); W19.XXXA Unspecified fall, initial encounter; Z82.49 Family history of ischemic heart disease and other diseases of the circulatory system; Z88.8 Allergy status to other drugs, medicaments and biological substances; Z95.0 Presence of cardiac pacemaker; Z95.1 Presence of aortocoronary bypass graft
CPT/HCPCS: 73502; 80048; 84484; 85025; 93005; 96374; 96375; 99285; A4216; J2405

== ENCOUNTER 2020-05-20 16:41 | Emergency (ER) | payer MEDICARE, SELFPAY ==
[2020-05-20 16:44] VITALS: BP 143/67; PULSE 68; RESP 18; TEMP 37.1; O2SAT 96; BMI 38.7
--- NOTE | 2020-05-20 18:47 | EKG12_ITS ---
Test Reason : DIZZINESS Blood Pressure : / mmHG Vent. Rate : 071 BPM Atrial Rate : 357 BPM P-R Int : 000 ms QRS Dur : 164 ms QT Int : 476 ms P-R-T Axes : 000 -58 107 degrees QTc Int : 517 ms Ventricular-paced rhythm Abnormal ECG Confirmed by SHAR SANCHEZ MD ([id number]), manager editorial LEIGH CABA ([id number]) on 05/22/2020 8:33:24 AM Referred By: YOLY Confirmed By:SHAR SANCHEZ MD
[2020-05-20 19:15] VITALS: RESP 16
[2020-05-20 19:33] LABS: Absolute Lymphocyte Count 1.79 X10^3/uL (0.83-4.51); Absolute Neutrophil Count 4.9 X10^3/uL (2.0-7.7); Basophil# 0.03 X10^3/uL; Basophil% 0.4 % (0-1); Eosinophil# 0.35 X10^3/uL; Eosinophils% 4.3 % (0-5); Hematocrit 45.6 % (40-54); Hemoglobin 14.8 g/dL (13.0-16.5); Lymphocyte # 1.79 X10^3/ul (4.0); Mean Corp Hgb Conc 32.5 g/dL (32-36); Mean Corpuscular Hgb 29.2 pg (27.0-32.0); Mean Corpuscular Volume 89.9 fL (80-94); Mean Platelet Vol. 9.3 fl (6.2-12.0); Monocyte# 0.97 X10^3/uL; Monocyte% 11.9 % (0-10); NRBC Flagged by Analyzer 0 % (0-5); Neutrophil # 4.94 X10^3/uL (2.7-7.7); Neutrophil % 60.9 % (47-70); Platelet Count 248 K/mm3 (150-450); RBC Distribution Width CV 14.3 % (11.6-14.6); RBC Distribution Width SD 46.7 fl (35.1-43.9); Red Blood Count 5.07 M/mm3 (4.6-6.2); White Blood Count 8.1 K/mm3 (4.4-11.0)
[2020-05-20] MEDS: fentaNYL 100 MCG/2 ML Ampul 50 MCG IV (19:33)
--- NOTE | 2020-05-20 19:58 | RAD_ITS ---
STUDY: X-RAY - LEFT FEMUR REASON FOR STUDY: Male, 79 years old. LEFT LEG PAIN AND WEAKNESS, PT HAD FALL ON 05/10. TECHNIQUE: 3 view(s) of the femur. COMPARISON: 05/04/2020 FINDINGS: There is a left hip arthroplasty that appears grossly anatomic. No acute fracture or dislocation is visualized. RAD/Femur Min 2 Views IMPRESSION: Left hip arthroplasty, grossly anatomic alignment. Electronically Signed: Jovita Jose MD at 20:51 EDT Tel , Service support ,
[2020-05-20 20:14] LABS: Anion Gap 4 (5-15); BUN 18 mg/dL (7-18); BUN/Creat Ratio 21.1 RATIO (10-20); Calcium,Total 9.4 mg/dL (8.5-10.1); Chloride 103 mmol/L (98-107); Creatinine, Serum 0.85 mg/dL (0.70-1.30); EST Glomerular Filtration Rate 92 mL/min (>60); Est Glom Filt Rate - Afr Amer 112 mL/min (>60); Glucose 85 mg/dL (74-106); Potassium 3.5 mmol/L (3.5-5.1); Sodium Level 140 mmol/L (136-145)
[2020-05-20 20:38] VITALS: BP 141/65; BP 166/68; BP 169/88; PULSE 78; PULSE 84; PULSE 92
--- NOTE | 2020-05-20 20:52 | ED.DCSUM_ITS ---
- ER Visit Summary Date of Service: 05/20/20 Chief Complaint: Lightheaded History of Present Illness: The patient is a [address] Warenr. He reports for the past 3 days when he stands from a sitting position he is lightheaded. He has not passed out. He reports that he initially feels off balance, but once he has stood for a brief period of time his balance returns to normal. He denies any numbness. He does report he has generalized weakness. He has a headache that is 2 out of 10 in severity. Does have a history of similar headaches. Patient reports that he fell May 10 onto his left side. He hit his head. Did not have a loss of consciousness. Is not on anticoagulants. However, he complains that he has had left hip pain that comes and goes since that time. Is 10 of 10 at worst. He is pain-free currently. He reports he is not having difficulty with ambulation. States that he feels like he is having muscle spasms in that leg. On review of systems patient reports he has a chronic cough the past 20 years is unchanged. Denies any fever, chills, chest pain, shortness of breath. Physical Examination: Vitals: Stable. Afebrile. General: Well-nourished and well-developed. Head: Normocephalic atraumatic. Neck: Supple, no lymphadenopathy. No JVD. Nontender. Cardiovascular: Regular rate and rhythm. No murmurs. Respiratory: No respiratory distress. Clear to auscultation bilaterally. Abdominal: Soft, nontender, nondistended, normal bowel sounds. No guarding, rebound, or peritoneal signs. Back: Nontender. Extremities: 2+ pitting edema of his lower extremities bilaterally with chronic venous stasis changes. He has mild tenderness palpation over the left greater trochanter. He has no pain with internal or external rotation of his hip. He is neuro vas intact distally Skin: Normal color, no rash. Neurologic: Alert and oriented ?3. Cranial nerves II through XII are intact. Normal strength and sensation. Psych: Normal affect. Test Results: EKG is ventricular paced at 71 with no acute changes. Troponin is negative. Chem-7 shows a CO2 of 33. CBC shows monocytes 12. Left femur x-ray shows no acute disease and the hardware is intact. Emergency Department Course and Treatment: Patient had negative orthostatic vital signs. Is given a 500 cc bolus of normal saline. He is resting comfortably and would like to go home. He was given fentanyl IV for his pain. Treatment Plan: Patient be discharged with prescription for 10 [place] and Colace. Instructed to follow-up his primary care physician in 3 to 5 days if he is not improving. Push fluids. Return to the emergency department for any worsening symptoms. Disposition: To home in improved and stable condition. Impression: 1. Near syncope, uncertain cause. 2. Left hip pain. This note was generated with [employer] dictation software. It may contain incorrect words, spelling, and punctuation that were not noted in review of the chart prior to signing ED Disposition - Plan for ED Patient: Instructions: ED Near-Fainting Uncertain Cause Prescriptions: Docusate Sodium [Colace] 100 mg PO DAILY #20 cap Prescription Printed Hydrocodone Bitart/Apap 5-325 [[place] 5MG-325MG] 1 tab PO Q4H PRN PRN 2 Days #10 tab PRN Reason: Pain Prescription Printed Referrals: Bertrand Warner MD [Primary Care Provider] - 2 Days
[2020-05-20 21:05] VITALS: BP 141/65; PULSE 78; RESP 16
[2020-05-20 21:21] VITALS: BP 135/90; PULSE 97; RESP 15; O2SAT 96
== END 2020-05-21 00:41 | disposition home or self-care (01) ==
PROVIDERS: Emergency Provider Emergency Medicine; PCP Family Medicine
DX: R55 Syncope and collapse (principal); R42 Dizziness and giddiness; M25.552 Pain in left hip; Z96.642 Presence of left artificial hip joint
CPT/HCPCS: 73552; 80048; 84484; 85025; 93005; 96361; 96374; 99285

== ENCOUNTER 2020-12-19 15:12 | Outpatient (RCR) | payer MEDICARE, MEDICAID, SELFPAY ==
[2020-12-19 09:54] VITALS: BP 134/84; PULSE 86; RESP 24; TEMP 36.8; BMI 38.7
--- NOTE | 2020-12-19 14:19 | HP.PCM_ITS ---
History of Present Illness Date of Service: 12/20/20 Chief Complaint: Nonhealing bilateral lower extremity ulcers. History of Wound: Mr. Dela Cruz is a 80-year-old who presents to the wound center due to nonhealing bilateral lower extremity ulcers. Had been seen here previously. History of chronic venous insufficiency/venous stasis ulcers. Current ulcerations said to have been noted 2 weeks ago. He admits that he has been more sedentary and attributes this to the ongoing pandemic. At the [facility], he has tried some dressings with no significant improvement. History of diabetes mellitus type 2 which per patient states is well controlled. Follows up with Dr. Warner at the [facility] and states that he had blood work about a month ago with no new concerns. Feels well at this time, denies chills, fever or otherwise feeling of unwell. [facility] Medical History (Updated 12/19/20 @ 14:[address] Ran Molina MD) Ulcer of left lower extremity with fat layer exposed Ulcer of right lower extremity with fat layer exposed Home Medications aspirin 81 mg PO DAILY 06/09/13 [History Last Taken 11/24/19] nitroglycerin 0.4 mg SUBLINGUAL Q5M PRN 06/09/13 [History Last Taken 10/17/16 09:00] magnesium oxide 400 mg PO DINNER 10/07/15 [History Last Taken 11/23/19] oxybutynin chloride 5 mg PO TID 01/27/16 [History Last Taken 11/24/19] metoprolol tartrate 25 mg PO BID 05/08/16 [History Last Taken 11/24/19] furosemide 40 mg PO DINNER 10/17/16 [History Last Taken 11/23/19] furosemide 80 mg PO DAILY 10/17/16 [History Last Taken 11/24/19] glimepiride 2 mg PO DAILY 05/03/17 [History Last Taken 11/24/19] atorvastatin 80 mg PO QHS 08/05/18 [History Last Taken 11/23/19] metformin 500 mg PO TIDCM 08/05/18 [History Last Taken 11/24/19] polyethylene glycol 3350 17 g PO BID 08/05/18 [History Last Taken 11/24/19] tamsulosin 0.4 mg PO QHS 08/05/18 [History Last Taken 11/23/19] pantoprazole 40 mg PO DAILY 09/08/18 [History Last Taken 11/24/19] calcium carbonate-vitamin D3 1 ea PO BID 11/24/19 [History Last Taken 11/24/19] cholecalciferol (vitamin D3) 2,000 unit PO DAILY 11/24/19 [History Last Taken 11/24/19] famotidine 40 mg PO BID 11/24/19 [History Last Taken 11/24/19] fluticasone propionate 2 spray NASAL DAILY 11/24/19 [History Last Taken 11/24/19] montelukast 10 mg PO DAILY 11/24/19 [History Last Taken 11/23/19] clopidogrel 75 mg PO DAILY #30 tab 11/25/19 [Rx Last Taken Unknown] ranolazine 500 mg PO BID #60 tab 11/25/19 [Rx Last Taken Unknown] docusate sodium 100 mg PO DAILY #20 cap 05/20/20 [Rx Last Taken Unknown] Allergy/AdvReac Type Severity Reaction Status Date / Time lisinopril Allergy Unknown Verified 05/20/20 16:44 sertraline Allergy Unknown Verified 05/20/20 16:44 Social History Smoking Status: Never smoker ROS Constitutional Constitutional: Denies anorexia, change in weight, fatigue or fever(s) Eyes Eyes: Denies acute decrease in peripheral vision, blind spots, bloody eye, blurry vision or change in vision ENT HEENT: Denies abnormal hearing, dysphagia, ear discharge, epistaxis or facial pain Cardiovascular Cardiovascular: Denies abdominal edema, chest pain with activity, claudication, cold extremities or cyanosis Respiratory/Chest Respiratory/Chest: Denies excessive phlegm production, inability to speak, pain on inspiration, pain with cough or pale skin Gastrointestinal Gastrointestinal: Denies bloating, change in bowel habits, dyspepsia, dysphagia or early satiety Genitourinary Genitourinary: Denies burning urination, difficulty urinating, dribbling, dysuria or genital lesions Musculoskeletal Musculoskeletal: Denies muscle spasms, muscle weakness, myalgias, neck pain or numbness Integumentary Integumentary: Denies bleeding lesions, change in pigmentation, changing lesions, nail changes or new lesions Neurologic Neurologic: Denies abnormal hearing, abnormal speech, behavior changes, focal weakness or frequent falls Psychiatric Psychiatric: Denies anxiety, auditory hallucinations, behavioral changes or cognitive impairment Endocrine Endocrinology: Denies cold intolerance, deepening of the voice, increase in ring/shoe/hat size, palpitations, polydipsia or polyphagia Hematologic/Lymphatic Hematologic/Lymphatic: Denies easy bleeding, easy bruising or lymphadenopathy Allergic/Immunologic Allergic/Immunologic: Denies itchy eyes, lip swelling, rhinitis or throat swelling Vital Signs Vital Signs Vital Signs: 12/19/20 09:54 Temperature 98.3 F Temperature Source Temporal Pulse Rate 86 Respiratory Rate 24 H Blood Pressure 134/84 H Blood Pressure Mean 100 Blood Pressure Source Monitor Physical Exam Const alert, oriented x3 and no apparent distress General Appearance: cooperative and well developed HEENT normocephalic and hearing grossly normal bilaterally Head and Scalp: normal to inspection Eyes EOMs intact bilaterally General Eye: normal appearance of both eyes Neck full ROM and supple General: normal visual inspection Resp normal respiratory effort Effort and Inspection: able to speak in complete sentences Auscultation: clear to auscultation bilaterally Cardio regular rate and regular rhythm Rate: regular rate Rhythm: regular rhythm GI Palpation: soft Extremity General Extremity: edema Skin Wounds: wounds noted Neuro oriented x3, CN's II-XII intact bilaterally and moves all extremities Psych mental status grossly normal Appearance: grossly normal Assessment & Plan Assessment/Plan (1) Ulcer of left lower extremity with fat layer exposed: Status: Acute Code(s): L97.922 - Non-pressure chronic ulcer of unspecified part of left lower leg with fat layer exposed (2) Ulcer of right lower extremity with fat layer exposed: Status: Acute Code(s): L97.912 - Non-pressure chronic ulcer of unspecified part of right lower leg with fat layer exposed (3) DM2 (diabetes mellitus, type 2): Status: Chronic Code(s): E11.9 - Type 2 diabetes mellitus without complications Qualifiers: Qualified Code(s): Z79.4 - retirement (current) use of insulin (4) Chronic venous insufficiency: Status: Chronic Plan: Debridement done as documented above, procedure was well-tolerated. Recurrent bilateral lower extremity also due to venous insufficiency. Also concerning history of peripheral vascular disease. Cultures taken. Venous and vascular studies also ordered. For now, Aquacel Extra daily with ABD over top. 3M wrap for edema management, change on Wednesday by facility nurse. Follow-up in a week with me. Elevate lower extremities when seated and in bed. Increase intake of vitamin C and zinc. Optimal diabetes control also recommended. His questions were answered and he was advised to call with any further questions or concerns. Follow-up in 1 week. This note was generated with [employer] dictation software. It may contain incorrect words, spelling, and punctuation that were not noted in checking the note before signing. Charges/Coding Office Visits / Consults: [id number] OV L4 New 111xxx-113xx: [id number] Deja subq tissue 20 sq cm/<
--- NOTE | 2021-02-04 09:34 | WC ---
FACE 12/19/20
== END 2020-12-20 23:59 ==
LOC: WC 15:12
PROVIDERS: PCP Family Medicine; Visit Provider Internal Medicine
DX: E11.622 Type 2 diabetes mellitus with other skin ulcer (principal); L97.922 Non-pressure chronic ulcer of unspecified part of left lower leg with fat layer exposed; L97.912 Non-pressure chronic ulcer of unspecified part of right lower leg with fat layer exposed; E11.51 Type 2 diabetes mellitus with diabetic peripheral angiopathy without gangrene; Z79.4 Long term (current) use of insulin; I87.2 Venous insufficiency (chronic) (peripheral)
CPT/HCPCS: 11042; 11045; 29581; 87070; 87075; 87077; 87186; 87205; 99203; G0463

== ENCOUNTER 2021-01-09 14:33 | Observation (INO) | payer MEDICARE, MEDICAID, SELFPAY ==
[2021-01-09] VITALS (9 sets, daily range): BP systolic 134–157; BP diastolic 75–88; PULSE 60–91; RESP 15–18; TEMP 36.7–37; O2SAT 94–98; BMI 38.7; BMI 46.9; BMI 45.5
--- NOTE | 2021-01-09 14:54 | EKG12_ITS ---
Test Reason : SOB Blood Pressure : / mmHG Vent. Rate : 084 BPM Atrial Rate : 100 BPM P-R Int : 000 ms QRS Dur : 194 ms QT Int : 466 ms P-R-T Axes : 000 -56 094 degrees QTc Int : 550 ms Ventricular-paced rhythm Abnormal ECG Confirmed by KENDRICK MEEK, ALVARADOAPRADERELL ([id number]), editor news LEIGH CABA ([id number]) on 01/14/2021 10:01:16 A M Referred By: MORGAN
--- NOTE | 2021-01-09 14:56 | EX.ED.DYSGE1 ---
HPI History of Present Illness Chief Complaint: Syncope Detail of Chief Complaint: Shortness of breath and near syncope Informant: patient Narrative Narrative: Patient states that he has been feeling poorly for the last 2 to 3 months. Patient states that he has been feeling short of breath at times and at times has a cough that brings up some yellow sputum. He denies any fevers. Patient has had both COVID-19 vaccines. Patient also states that he has been having episodes where he feels like he is in a pass out. Patient could be sitting or standing when he gets this sensation but has not actually passed out at any point. He denies any chest pain out of the ordinary. Patient does have history of COPD as well as CHF and uses BiPAP at night. No history of PE or DVT. No history of recent travel or surgery. Prior similar symptoms: No PFSH [facility] Medical History (Updated 01/09/21 @ 14:44 by Zuhair Frankel) Asthma BiPAP (biphasic positive airway pressure) dependence COPD (chronic obstructive pulmonary disease) Diabetes Hyperlipemia Hypertension Non-smoker Pacemaker Ulcer of left lower extremity with fat layer exposed Ulcer of right lower extremity with fat layer exposed Home Medications aspirin 81 mg PO DAILY 06/09/13 [History Last Taken 11/24/19] nitroglycerin 0.4 mg SUBLINGUAL Q5M PRN 06/09/13 [History Last Taken 10/17/16 09:00] magnesium oxide 400 mg PO DINNER 10/07/15 [History Last Taken 11/23/19] oxybutynin chloride 5 mg PO TID 01/27/16 [History Last Taken 11/24/19] metoprolol tartrate 25 mg PO BID 05/08/16 [History Last Taken 11/24/19] furosemide 40 mg PO DINNER 10/17/16 [History Last Taken 11/23/19] glimepiride 2 mg PO DAILY 05/03/17 [History Last Taken 11/24/19] atorvastatin 80 mg PO QHS 08/05/18 [History Last Taken 11/23/19] polyethylene glycol 3350 17 g PO BID 08/05/18 [History Last Taken 11/24/19] pantoprazole 40 mg PO DAILY 09/08/18 [History Last Taken 11/24/19] cholecalciferol (vitamin D3) 2,000 unit PO DAILY 11/24/19 [History Last Taken 11/24/19] famotidine 40 mg PO BID 11/24/19 [History Last Taken 11/24/19] fluticasone propionate 2 spray NASAL DAILY 11/24/19 [History Last Taken 11/24/19] montelukast 10 mg PO DAILY 11/24/19 [History Last Taken 11/23/19] docusate sodium 100 mg PO DAILY #20 cap 05/20/20 [Rx Last Taken Unknown] acetaminophen [Pharbetol] 1,000 mg PO Q8H PRN 01/09/21 [History Last Taken Unknown] benzonatate 200 mg PO TID PRN 01/09/21 [History Last Taken Unknown] dicyclomine 10 mg PO 4X/DAY 01/09/21 [History Last Taken Unknown] guaifenesin [Siltussin] 100 mg PO TID PRN PRN 01/09/21 [History Last Taken Unknown] loperamide 2 mg PO Q4H PRN 01/09/21 [History Last Taken Unknown] metformin [Glucophage] 500 mg PO TID 01/09/21 [History Last Taken Unknown] mirtazapine 15 mg PO QHS 01/09/21 [History Last Taken Unknown] ondansetron HCl [Zofran] 4 mg PO Q8H PRN 01/09/21 [History Last Taken Unknown] paroxetine HCl 10 mg PO DAILY 01/09/21 [History Last Taken Unknown] tamsulosin 0.4 mg PO QHS 01/09/21 [History Last Taken Unknown] Allergy/AdvReac Type Severity Reaction Status Date / Time lisinopril Allergy Unknown Verified 01/09/21 14:34 sertraline Allergy Unknown Verified 01/09/21 14:34 Surgical History (Updated 01/09/21 @ 14:44 by Zuhair Frankel) History of bilateral hip arthroplasty History of cholecystectomy Hx of CABG Social History Smoking Status: Never smoker ROS ROS ED Constitutional Constitutional ED: Reports systems reviewed and no addt'l complaints, except as documented; Denies body ache(s), change in weight or chills Eyes Eyes: Denies acute decrease in peripheral vision, change in vision, double vision or loss of vision ENT ENT ED: Reports none; Denies ear pain, lip swelling, loss taste/smell, neck pain, otalgia or sore throat Cardiovascular Cardiovascular: Reports none and paroxysmal nocturnal dyspnea; Denies abdominal pain, chest pain with activity, leg edema, lightheadedness, palpitations, rapid heart rate or syncope Respiratory/Chest Respiratory/Chest: Reports none, cough, dyspnea, dyspnea on exertion, paroxysmal nocturnal dyspnea and sputum; Denies change in mental status, dry cough, hemoptysis, shortness of breath at rest or shortness of breath with exertion Gastrointestinal Gastrointestinal: Reports none; Denies abdominal pain, change in stool character, diarrhea, hematemesis, hematochezia, melena, rectal bleeding or vomiting Genitourinary Genitourinary ED: Reports none; Denies abdominal discomfort, anuria, dysuria, genital pain or polyuria Musculoskeletal Musculoskeletal: Reports none; Denies arthralgias, back pain, difficulty walking, extremity pain, muscle weakness or myalgias Integumentary Reports none; Denies abscess or rash Neurologic Neurologic: Reports none; Denies abnormal gait, confusion, focal weakness, frequent falls, headache(s), loss of vision, numbness, paresthesias, radicular pain, vertigo or weakness Psychiatric Psychiatric: Reports systems reviewed and no addt'l complaints, except as documented and none; Denies behavioral changes, confusion, difficulty concentrating, hallucinations, suicidal ideation, tactile hallucinations or visual hallucinations Endocrine Endocrinology: Denies none, cold intolerance, excessive sweating, fatigue or heat intolerance Hematologic/Lymphatic Hematologic/Lymphatic: Reports none; Denies anemia, easy bleeding or easy bruising Allergic/Immunologic Allergic/Immunologic ED: Denies as per HPI, none, lip swelling, mouth swelling, throat swelling, tongue swelling or hives EXAM Physical Exam Const Vital Signs: 01/09/21 14:34 01/09/21 14:38 01/09/21 16:27 Temperature 98.3 F Temperature Source Temporal Pulse Rate 74 68 Pulse Rate [Lying] 65 Pulse Rate [Sitting] 65 Pulse Rate [Standing] 77 Respiratory Rate 18 16 Respiratory Effort Short of Breath Respiratory Pattern Irregular Blood Pressure 157/77 H 157/77 H Blood Pressure [Lying] 137/75 H Blood Pressure [Sitting] 144/79 H Blood Pressure [Standing] 156/88 H Blood Pressure Mean 103 103 Blood Pressure Mean [Lying] 95 Blood Pressure Mean [Sitting] 100 Blood Pressure Mean [Standing] 110 Pulse Ox 94 95 Oxygen Delivery Method Room Air Nasal Cannula Oxygen Flow Rate (L/min) 2 Positive well nourished and well developed General Appearance ED: well developed and NAD HEENT Reports TM's clear and moist mucous membranes normocephalic and atraumatic; Negative for trauma or tenderness Tympanic Membrane ED: Yes TM's clear Eyes PERRL and EOMs intact bilaterally General Eye ED: Negative for pale conjunctiva or scleral icterus Neck no lymphadenopathy, supple and no JVD General: Negative for tenderness Chest Wall inspection of chest normal and palpation of chest normal Chest: Negative for tenderness Resp normal respiratory effort and clear to auscultation bilaterally Resp Narrative: Patient with mild rales in both lower lobes and slightly diminished breath sounds bilaterally. No accessory muscle use or retractions. No significant conversational dyspnea. Effort and Inspection: Negative for respiratory distress or pain with movement Auscultation: rales right and left and diminished lung sounds; Negative for rhonchi or wheezes Cardio regular rate, regular rhythm, S1 normal heart sound, S2 normal heart sound and no murmurs Peripheral Pulses: pulses 2+ throughout GI normal to inspection, nondistended, normoactive bowel sounds, soft to palpation, non-tender, non-distended and no masses Back/Spine no CVA tenderness and no thoracic nor lumbar tenderness Extremity normal to inspection Extremity Narrative: Patient has both lower extremities wrapped and has noted to have +1 edema pitting bilaterally. General Extremety ED: Yes edema General Extremity: edema Neuro oriented x3, CN's II-XII intact bilaterally, no sensory deficits noted and gait normal Sensorium / Orientation: awake, alert, oriented to person, oriented to place and oriented to time Motor Exam: strength 5/5 throughout and strength abnormal Psych mental status grossly normal Skin no rashes or lesions noted and no wounds MDM MDM MDM Narrative Medical decision making narrative: Patient symptoms consistent with CHF. Patient noted to have pulmonary congestion on x-ray and CTA of the chest. No evidence of PE. He was given Lasix 80 mg IV. Etiology of near syncope at this point is unclear. Case will be discussed with hospitalist evaluate patient for admission for diuresis and further evaluation of his symptoms. Lab Data Attestation: I reviewed the patient's lab results. Labs: Laboratory Results - last 24 hr 01/09/21 01/09/21 01/09/21 14:40 14:40 14:40 WBC 7.2 RBC 4.76 Hgb 12.8 L Hct 42.3 MCV 88.9 MCH 26.9 L MCHC 30.3 L RDW Std Deviation 51.9 H RDW Coeff of Yue 15.9 H Plt Count 209 MPV 10.1 Immature Gran % (Auto) 0.300 Neut % (Auto) 66.7 Lymph % (Auto) 18.1 L [place] % (Auto) 11.6 H Eos % (Auto) 2.6 Baso % (Auto) 0.7 Absolute Neuts (auto) 4.8 Absolute Lymphs (auto) 1.30 Nucleated RBC % 0 D-Dimer Quant (PE/DVT) 0.99 H* Sodium 140 Potassium 3.6 Chloride 105 Carbon Dioxide 32.0 Anion Gap 3 L BUN 18 Creatinine 0.96 Estim Creat Clear Calc 68.48 Est GFR (MDRD) Af Amer 97 Est GFR (MDRD) Non-Af 80 BUN/Creatinine Ratio 18.7 Glucose 166 H Calcium 9.0 Troponin I < 0.015 B-Natriuretic Peptide 01/09/21 14:40 WBC RBC Hgb Hct MCV MCH MCHC RDW Std Deviation RDW Coeff of Yue Plt Count MPV Immature Gran % (Auto) Neut % (Auto) Lymph % (Auto) [place] % (Auto) Eos % (Auto) Baso % (Auto) Absolute Neuts (auto) Absolute Lymphs (auto) Nucleated RBC % D-Dimer Quant (PE/DVT) Sodium Potassium Chloride Carbon Dioxide Anion Gap BUN Creatinine Estim Creat Clear Calc Est GFR (MDRD) Af Amer Est GFR (MDRD) Non-Af BUN/Creatinine Ratio Glucose Calcium Troponin I B-Natriuretic Peptide 151.1 H Radiography Chest X-Ray - ED: 1 View Diagnostic Testing: Radiology Impression Chest X-Ray 01/09/21 15:05 IMPRESSION: Cardiomegaly with vascular congestion and pulmonary edema. Superimposed infection cannot be entirely excluded. at 1541 Reported and signed by: Romie Thomas MD Electronically Signed: Romie Thomas MD at 15:40 EDT Tel , Service support , Chest CTA 01/09/21 15:23 IMPRESSION: No pulmonary embolism. Cardiac size upper normal limits with pulmonary changes of pulmonary edema, small pleural effusions. Evidence of increased right heart pressures. Individualized dose optimization techniques were used for this CT. at 1608 Reported and signed by: Romie Thomas MD Electronically Signed: Romie Thomas MD at 16:07 EDT Tel , Service support , Patient noted to have cardiomegaly on my interpretation as well as some pulmonary congestion. Radiology in agreement. EKG Initial EKG: Comments: Ventricularly paced rhythm with a rate of 84 bpm Prior EKG tracings: available for review Prior: Unchanged Discharge Plan Dx/Rx/DC Orders Clinical Impression: CHF (congestive heart failure) Disposition Disposition: Acute Care Hospital [facility]
--- NOTE | 2021-01-09 15:05 | RAD_ITS ---
HISTORY: dyspnea EXAMINATION/TECHNIQUE: XR Chest 1 View: Portable upright AP chest x-ray COMPARISON: 1418 FINDINGS: LINES/DEVICES: Stable transvenous pacemaker. LUNGS: Vascular congestion and hazy airspace opacities bilaterally without consolidation or definite pleural effusion. Stable elevation right hemidiaphragm. MEDIASTINUM AND CARDIOVASCULAR STRUCTURES: Stable cardiomegaly with CABG changes. BONES AND SOFT TISSUES: No acute bony abnormalities. RAD/Chest 1 View (Portable) IMPRESSION: Cardiomegaly with vascular congestion and pulmonary edema. Superimposed infection cannot be entirely excluded. at 1541 Reported and signed by: Romie Thomas MD Electronically Signed: Romie Thomas MD at 15:40 EDT Tel , Service support ,
[2021-01-09 15:09] LABS: Absolute Neutrophil Count 4.8 X10^3/uL (2.0-7.7); Basophil# 0.05 X10^3/uL; Basophil% 0.7 % (0-1); Eosinophil# 0.19 X10^3/uL; Eosinophils% 2.6 % (0-5); Hematocrit 42.3 % (40-54); Hemoglobin 12.8 g/dL (13.0-16.5); Lymphocyte % 18.1 % (19-41); Mean Corp Hgb Conc 30.3 g/dL (32-36); Mean Corpuscular Hgb 26.9 pg (27.0-32.0); Mean Corpuscular Volume 88.9 fL (80-94); Mean Platelet Vol. 10.1 fl (6.2-12.0); Monocyte# 0.83 X10^3/uL; Monocyte% 11.6 % (0-10); NRBC Flagged by Analyzer 0 % (0-5); Neutrophil # 4.79 X10^3/uL (2.7-7.7); Neutrophil % 66.7 % (47-70); Platelet Count 209 K/mm3 (150-450); RBC Distribution Width CV 15.9 % (11.6-14.6); RBC Distribution Width SD 51.9 fl (35.1-43.9); Red Blood Count 4.76 M/mm3 (4.6-6.2); White Blood Count 7.2 K/mm3 (4.4-11.0)
[2021-01-09 15:22] LABS: Anion Gap 3 (5-15); BUN 18 mg/dL (7-18); BUN/Creat Ratio 18.7 RATIO (10-20); Chloride 105 mmol/L (98-107); Creatinine, Serum 0.96 mg/dL (0.70-1.30); EST Glomerular Filtration Rate 80 mL/min (>60); Est Glom Filt Rate - Afr Amer 97 mL/min (>60); Estimated Creatinine Clearance 68.48 ml/min; Glucose 166 mg/dL (74-106); Potassium 3.6 mmol/L (3.5-5.1); Sodium Level 140 mmol/L (136-145)
--- NOTE | 2021-01-09 15:23 | CT_ITS ---
HISTORY: Dyspnea, elevated d-dimer EXAMINATION: CTA Chest WO/W Contrast Injection TECHNIQUE: Helically acquired images were obtained of the chest following IV contrast as per pulmonary angiogram protocol with 3D reconstructions. A radiation dose optimization technique was used for this scan. IV Contrast dosage and agent: 100mL [id number] COMPARISON: 11/23/25 FINDINGS: LUNGS, PLEURA AND LARGE AIRWAYS: Bilateral dependent changes with bibasilar pleural effusions and bilateral hazy groundglass opacities. No pneumothorax. No consolidations. THYROID: No thyroid lesions. PULMONARY ARTERIES: Normal in caliber. No pulmonary embolism. AORTA AND GREAT VESSELS: No aneurysm or dissection. HEART AND PERICARDIUM: Heart size upper normal limits. No pericardial effusion. Stable CABG changes and transvenous pacemaker. MEDIASTINUM AND MATTHEW: Peritracheal lymph node up to 11 mm. Esophagus is unremarkable. No hiatal hernia. UPPER ABDOMEN: No acute pathology. Reflux of contrast into the hepatic veins BONES: No acute or aggressive abnormality. CT/CTA Chest W/WO Contrast IMPRESSION: No pulmonary embolism. Cardiac size upper normal limits with pulmonary changes of pulmonary edema, small pleural effusions. Evidence of increased right heart pressures. Individualized dose optimization techniques were used for this CT. at 1608 Reported and signed by: Romie Thomas MD Electronically Signed: Romie Thomas MD at 16:07 EDT Tel , Service support ,
[2021-01-09 15:24] LABS: D-Dimer Quantitative (DVT/PE) 0.99 FEU/ug/m (0.27-0.49)
--- NOTE | 2021-01-09 15:32 | ED.RN ---
Per pt request brother jayesh was called. no answer. message with call back number left on answering machine. [email or web address] yi [phone] [phone]
[2021-01-09] MEDS: 0.9% Normal Saline 1,000 ML 15 ML IV (15:39)
[2021-01-09 15:46] LABS: BNP,B-Type NATRIURETIC PEPTIDE 151.1 pg/mL (0-100)
--- NOTE | 2021-01-09 16:34 | NURSING ---
DR JULIANO MORA
--- NOTE | 2021-01-09 16:39 | NURSING ---
PCU [facility] OBS CHF, NEAR SYNCOPE, DYSPNEA
--- NOTE | 2021-01-09 16:59 | HP.PCM.HOS_ITS ---
[facility] - General General Date of Admission: 01/09/21 HPI Narrative LINCOLN KENRDICK, is a 80 M with a past medical history as outlined who presents with a complaint of shortness of breath and near syncope. Patient states he has been having cough for the past 2 to 3 months with associated shortness of breath. Cough is productive of yellowish sputum. He denies any fevers or chills and denies any orthopnea or PND. Patient states that his coughing episodes have been worsening of late and he says he feels like passing out often after a prolonged coughing episodes. He denies any chest pain or palpitations, dizziness, nausea vomiting or diarrhea. Patient does have a history of COPD and CHF and uses BiPAP at night. Review of symptoms otherwise negative. Vitals in the ED showed blood pressure of 157/77, respiratory rate of 18 and pulse rate of 74 with pulse ox of 94. Orthostatics checked in the ED were positive with respect to diastolic blood pressure. Labs done showed hemoglobin of 12.8 with WBC of 7.2 and platelets of 209. D-dimer was 0.99. Chemistry was essentially unremarkable. CTA of the chest done showed no evidence of PE but showed bilateral dependent changes with bibasilar pleural effusions and bilateral hazy groundglass opacities. He has been admitted to be managed for near syncope likely due to orthostatic hypotension as well as probable heart failure exacerbation. [facility] Medical History (Updated 01/09/21 @ 17:[address] Anahi Steiner MD) Asthma Atrial fibrillation BiPAP (biphasic positive airway pressure) dependence Congestive heart failure (CHF) COPD (chronic obstructive pulmonary disease) Diabetes GERD (gastroesophageal reflux disease) Hyperlipemia Hypertension Non-smoker Pacemaker Ulcer of left lower extremity with fat layer exposed Ulcer of right lower extremity with fat layer exposed Home Medications aspirin 81 mg PO DAILY 06/09/13 [History Last Taken 11/24/19] nitroglycerin 0.4 mg SUBLINGUAL Q5M PRN 06/09/13 [History Last Taken 10/17/16 09:00] magnesium oxide 400 mg PO DINNER 10/07/15 [History Last Taken 11/23/19] oxybutynin chloride 5 mg PO TID 01/27/16 [History Last Taken 11/24/19] metoprolol tartrate 25 mg PO BID 05/08/16 [History Last Taken 11/24/19] furosemide 40 mg PO DINNER 10/17/16 [History Last Taken 11/23/19] atorvastatin 80 mg PO QHS 08/05/18 [History Last Taken 11/23/19] pantoprazole 40 mg PO DAILY 09/08/18 [History Last Taken 11/24/19] cholecalciferol (vitamin D3) 2,000 unit PO DAILY 11/24/19 [History Last Taken 11/24/19] famotidine 40 mg PO BID 11/24/19 [History Last Taken 11/24/19] fluticasone propionate 2 spray NASAL DAILY 11/24/19 [History Last Taken 11/24/19] montelukast 10 mg PO DAILY 11/24/19 [History Last Taken 11/23/19] docusate sodium 100 mg PO DAILY #20 cap 05/20/20 [Rx Last Taken Unknown] acetaminophen [Tylenol Extra Strength] 1,000 mg PO Q6H PRN 01/09/21 [History Last Taken 12/23/20] alum-mag hydroxide-simeth [Mintox Maximum Strength] 20 ml PO Q6H PRN 01/09/21 [History Last Taken 12/22/20] calcium carbonate-vitamin D2 [Oyster Shell Calcium-Vit D2] 1 tab PO DAILY 01/09/21 [History Last Taken 01/09/21] dicyclomine 10 mg PO 4X/DAY 01/09/21 [History Last Taken Unknown] glimepiride 4 mg PO BREAKFAST 01/09/21 [History Last Taken 01/09/21] metformin [Glucophage] 500 mg PO TID 01/09/21 [History Last Taken Unknown] mirtazapine 15 mg PO QHS 01/09/21 [History Last Taken Unknown] tamsulosin 0.4 mg PO QHS 01/09/21 [History Last Taken Unknown] Allergy/AdvReac Type Severity Reaction Status Date / Time lisinopril Allergy Unknown Verified 01/09/21 14:34 sertraline Allergy Unknown Verified 01/09/21 14:34 Surgical History (Updated 01/09/21 @ 14:44 by Zuhair Frankel) History of bilateral hip arthroplasty History of cholecystectomy Hx of CABG Social History Smoking Status: Never smoker ROS Constitutional Constitutional: Reports fatigue and malaise; Denies anorexia, change in weight, chills, fever(s) or weakness ENT HEENT: Reports abnormal hearing; Denies dysphagia, headache(s), nasal congestion, nasal discharge, post nasal drip, sinus pressure or sore throat Cardiovascular Cardiovascular: Reports other Details: near syncope ; Denies chest pain, dyspnea on exertion, edema, orthopnea, palpitations, paroxysmal nocturnal dyspnea, rapid heart rate or syncope Respiratory/Chest Respiratory/Chest: Reports cough, dyspnea, excessive phlegm production, productive cough, shortness of breath at rest and shortness of breath with exertion; Denies hemoptysis or wheezing Gastrointestinal Gastrointestinal: Denies abdominal pain, constipation, diarrhea, nausea or vomiting Genitourinary Genitourinary: Denies burning urination, dysuria or urinary frequency Musculoskeletal Musculoskeletal: Denies arthralgias Neurologic Neurologic: Denies confusion, dizziness, focal weakness, headache(s), numbness or seizures Psychiatric Psychiatric: Denies anxiety or depression Hematologic/Lymphatic Hematologic/Lymphatic: Denies anemia Allergic/Immunologic Allergic/Immunologic: Reports asthma Vital Signs Vital Signs Vital Signs: 01/09/21 14:34 01/09/21 14:38 01/09/21 16:27 Temperature 98.3 F Temperature Source Temporal Pulse Rate 74 68 Pulse Rate [Lying] 65 Pulse Rate [Sitting] 65 Pulse Rate [Standing] 77 Respiratory Rate 18 16 Respiratory Effort Short of Breath Respiratory Pattern Irregular Blood Pressure 157/77 H 157/77 H Blood Pressure [Lying] 137/75 H Blood Pressure [Sitting] 144/79 H Blood Pressure [Standing] 156/88 H Blood Pressure Mean 103 103 Blood Pressure Mean [Lying] 95 Blood Pressure Mean [Sitting] 100 Blood Pressure Mean [Standing] 110 Pulse Ox 94 95 Oxygen Delivery Method Room Air Nasal Cannula Oxygen Flow Rate (L/min) 2 01/09/21 16:40 Temperature 98.6 F Temperature Source Oral Pulse Rate 74 Pulse Rate [Lying] Pulse Rate [Sitting] Pulse Rate [Standing] Respiratory Rate 15 Respiratory Effort Respiratory Pattern Blood Pressure 156/88 H Blood Pressure [Lying] Blood Pressure [Sitting] Blood Pressure [Standing] Blood Pressure Mean 110 Blood Pressure Mean [Lying] Blood Pressure Mean [Sitting] Blood Pressure Mean [Standing] Pulse Ox 98 Oxygen Delivery Method Nasal Cannula Oxygen Flow Rate (L/min) 2 Physical Exam Const alert, oriented x3 and no apparent distress Constitutional Narrative: morbidly obese General Appearance: cooperative HEENT normocephalic, hearing grossly normal bilaterally, moist oral mucous membranes and oropharynx normal Eyes PERRL, EOMs intact bilaterally and conjunctivae normal Neck no lymphadenopathy, supple and no JVD Resp Resp Narrative: diminished breath sounds bibasally, no wheezes or crackles. on 3L of oxygen by nasal cannula Cardio regular rate, regular rhythm, S1 normal heart sound, S2 normal heart sound and no murmurs GI normal to inspection, nondistended, normoactive bowel sounds, soft to palpation, non-tender and non-distended Extremity normal to inspection and full ROM Extremity Narrative: 1+ bipedal pitting edema Peripheral Pulses: Yes pulses 2+ throughout Skin no rashes or lesions noted Neuro oriented x3 Sensorium / Orientation: awake and alert Psych affect normal Lab / Micro Data Result Diagrams: 01/09/21 14:40 01/09/21 14:40 Labs: Laboratory Results - last 24 hr 01/09/21 01/09/21 01/09/21 14:40 14:40 14:40 WBC 7.2 RBC 4.76 Hgb 12.8 L Hct 42.3 MCV 88.9 MCH 26.9 L MCHC 30.3 L RDW Std Deviation 51.9 H RDW Coeff of Yue 15.9 H Plt Count 209 MPV 10.1 Immature Gran % (Auto) 0.300 Neut % (Auto) 66.7 Lymph % (Auto) 18.1 L [place] % (Auto) 11.6 H Eos % (Auto) 2.6 Baso % (Auto) 0.7 Absolute Neuts (auto) 4.8 Absolute Lymphs (auto) 1.30 Nucleated RBC % 0 D-Dimer Quant (PE/DVT) 0.99 H* Sodium 140 Potassium 3.6 Chloride 105 Carbon Dioxide 32.0 Anion Gap 3 L BUN 18 Creatinine 0.96 Estim Creat Clear Calc 68.48 Est GFR (MDRD) Af Amer 97 Est GFR (MDRD) Non-Af 80 BUN/Creatinine Ratio 18.7 Glucose 166 H Calcium 9.0 Troponin I < 0.015 B-Natriuretic Peptide 01/09/21 14:40 WBC RBC Hgb Hct MCV MCH MCHC RDW Std Deviation RDW Coeff of Yue Plt Count MPV Immature Gran % (Auto) Neut % (Auto) Lymph % (Auto) [place] % (Auto) Eos % (Auto) Baso % (Auto) Absolute Neuts (auto) Absolute Lymphs (auto) Nucleated RBC % D-Dimer Quant (PE/DVT) Sodium Potassium Chloride Carbon Dioxide Anion Gap BUN Creatinine Estim Creat Clear Calc Est GFR (MDRD) Af Amer Est GFR (MDRD) Non-Af BUN/Creatinine Ratio Glucose Calcium Troponin I B-Natriuretic Peptide 151.1 H Radiology Impression Chest X-Ray 01/09/21 15:05 IMPRESSION: Cardiomegaly with vascular congestion and pulmonary edema. Superimposed infection cannot be entirely excluded. at 1541 Reported and signed by: Romie Thomas MD Electronically Signed: Romie Thomas MD at 15:40 EDT Tel , Service support , Chest CTA 01/09/21 15:23 IMPRESSION: No pulmonary embolism. Cardiac size upper normal limits with pulmonary changes of pulmonary edema, small pleural effusions. Evidence of increased right heart pressures. Individualized dose optimization techniques were used for this CT. at 1608 Reported and signed by: Romie Thomas MD Electronically Signed: Romie Thomas MD at 16:07 EDT Tel , Service support , Assessment & Plan Assessment/Plan (1) CHF (congestive heart failure): (2) Pre-syncope: PLAN: #Pre syncope likely due to vasovagal effect * Patient states his presyncopal episodes are worsened by excessive coughing. I do suspect the excessive coughing causes vasovagal effect that results in near syncope * Admit to PCU with telemetry * PT OT consult. Fall precautions. * BNP is mildly elevated at 151 and in light of his morbid obesity, it is likely to be higher. Patient is also on 3 to 4 L of oxygen he does not wear oxygen at home. We will therefore hold off on hydration with fluid now and management for heart failure. * Give Robitussin for cough. * #Acute on chronic heart failure preserved ejection fraction * BNP is 151 but patient is morbidly obese so this is likely falsely low. * Patient is also on 3 L of oxygen and does not wear oxygen at home. CT of the chest also showed bibasilar pleural effusions * Diuresed with IV Lasix 40 mg twice daily. Monitor intake and output. Fluid restriction 1500 cc daily. * #History of asthma: * His asthma and COPD does seem to be poorly controlled as patient is always having excessive coughing. * Also on Singulair. * Will benefit from pulmonary consult in light of chronic cough which is causing presyncopal events. * #History of COPD: As above # Benign essential hypertension: Continue blood pressure medications #History of hyperlipidemia: Continue statin #Type 2 diabetes mellitus: continue metformin and glimepiride. ISS. Accuchecks ACHS #BPH: On Flomax #Depression: On mirtazapine DVT prophylaxis: Lovenox CODE STATUS: Full code * Patient counseled about differences between full code, DNR CCA and DNR CCA. Patient elects to be full code. * Total face to face time- 16 mins Visit Charges Inpatient E&M: 85325 Init Hosp L3 Procedures Hospitalists Procedures: 06182 Advncd Care Plan 30 Min
[2021-01-09] MEDS: Furosemide 100 MG/10 ML Vial 80 MG IV (17:35)
[2021-01-09] MEDS: Dicyclomine 10 MG Capsule PO (23:49)
[2021-01-09] MEDS: Oxybutynin 5 MG Tablet PO (23:49)
[2021-01-09] MEDS: Mirtazapine 15 MG Tablet PO (23:49)
[2021-01-09] MEDS: guaiFENesin 1,200 MG Tablet 1200 MG PO (23:50)
[2021-01-09] MEDS: Tamsulosin HCl 0.4 MG Capsule PO (23:50)
[2021-01-09] MEDS: Atorvastatin Calcium 80 MG Tablet PO (23:51)
[2021-01-09] MEDS: Famotidine 20 MG Tablet 40 MG PO (23:51)
[2021-01-09] MEDS: Metoprolol Tartrate 25 MG Tablet PO (23:55)
[2021-01-10] VITALS (20 sets, daily range): BP systolic 128–147; BP diastolic 61–72; PULSE 59–74; RESP 12–20; TEMP 36.5–36.9; O2SAT 88–98
[2021-01-10] MEDS: Polyethylene Glycol 3350 17 GM PACKET PO ×3 (00:08→21:45)
[2021-01-10 00:15] LABS: Bedside Glucose 113 mg/dL (70-110)
[2021-01-10 03:07] LABS: Absolute Lymphocyte Count 1.58 X10^3/uL (0.83-4.51); Absolute Neutrophil Count 4.4 X10^3/uL (2.0-7.7); Basophil# 0.06 X10^3/uL; Basophil% 0.8 % (0-1); Eosinophils% 4.1 % (0-5); Hematocrit 40.7 % (40-54); Hemoglobin 12.4 g/dL (13.0-16.5); Lymphocyte # 1.58 X10^3/ul (0.83-4.51); Lymphocyte % 21.5 % (19-41); Mean Corp Hgb Conc 30.5 g/dL (32-36); Mean Corpuscular Hgb 27.1 pg (27.0-32.0); Mean Corpuscular Volume 88.9 fL (80-94); Mean Platelet Vol. 9.8 fl (6.2-12.0); Monocyte# 0.99 X10^3/uL; Monocyte% 13.5 % (0-10); NRBC Flagged by Analyzer 0 % (0-5); Neutrophil # 4.42 X10^3/uL (2.7-7.7); Platelet Count 217 K/mm3 (150-450); RBC Distribution Width CV 15.9 % (11.6-14.6); RBC Distribution Width SD 51.9 fl (35.1-43.9); Red Blood Count 4.58 M/mm3 (4.6-6.2); White Blood Count 7.4 K/mm3 (4.4-11.0)
[2021-01-10 03:27] LABS: Anion Gap 4 (5-15); BUN 16 mg/dL (7-18); BUN/Creat Ratio 19.4 RATIO (10-20); Calcium,Total 8.7 mg/dL (8.5-10.1); Chloride 106 mmol/L (98-107); Creatinine, Serum 0.83 mg/dL (0.70-1.30); EST Glomerular Filtration Rate 95 mL/min (>60); Est Glom Filt Rate - Afr Amer 116 mL/min (>60); Estimated Creatinine Clearance 79.21 ml/min; Glucose 90 mg/dL (74-106); Potassium 3.3 mmol/L (3.5-5.1); Sodium Level 142 mmol/L (136-145)
[2021-01-10] MEDS: Potassium Chloride Oral Tablet 20 MEQ 40 MEQ PO (04:40)
[2021-01-10] MEDS: Benzonatate 100 MG Capsule 200 MG PO (04:49)
[2021-01-10] MEDS: Oxybutynin 5 MG Tablet PO ×3 (06:49→21:21)
[2021-01-10 07:15] LABS: Bedside Glucose 103 mg/dL (70-110)
[2021-01-10] MEDS: Ipratropium/Albuterol Sulfate 3 ML AMPUL.NEB INHALATION ×4 (07:15→20:01)
[2021-01-10] MEDS: metFORMIN HCl 500 MG Tablet PO (09:04)
[2021-01-10] MEDS: Docusate Sodium 100 MG Capsule PO (09:05)
[2021-01-10] MEDS: Cholecalciferol (VIT D3) 25 MCG TABLET (1,000 UNITS) 50 MCG PO (09:05)
[2021-01-10] MEDS: Famotidine 20 MG Tablet 40 MG PO ×2 (09:05→21:20)
[2021-01-10] MEDS: Montelukast 10 MG Tablet PO (09:05)
[2021-01-10] MEDS: PARoxetine 10 MG Tablet PO (09:06)
[2021-01-10] MEDS: Enoxaparin 40 MG/0.4 ML Syringe SC (09:06)
[2021-01-10] MEDS: Glimepiride 2 MG Tablet PO (09:06)
[2021-01-10] MEDS: Aspirin 81 MG TAB.CHEW PO (09:06)
[2021-01-10] MEDS: Dicyclomine 10 MG Capsule PO ×4 (09:06→21:21)
[2021-01-10] MEDS: Furosemide 40 MG/4 ML Vial IV ×2 (09:07→17:05)
[2021-01-10] MEDS: Pantoprazole Sodium 40 MG Tablet PO (09:07)
[2021-01-10] MEDS: guaiFENesin 1,200 MG Tablet 1200 MG PO ×2 (09:07→21:22)
[2021-01-10] MEDS: Metoprolol Tartrate 25 MG Tablet PO ×2 (09:08→21:49)
[2021-01-10] MEDS: Fluticasone 0.05% 1 SPRAY NASAL.SRY 2 SPRAY NASAL (09:08)
[2021-01-10] MEDS: 0.9% Saline Lock 10 ML Syringe IV ×2 (09:15→17:03)
--- NOTE | 2021-01-10 09:24 | ECHOCS_ITS ---
Reason For Study: SOB Procedure This was a 2D Doppler, Color Flow transthoracic echocardiogram. Very technically difficult study due to patients body habitus. Contrast injection was used to help enhance image quality. Exam performed portable in patient room. Left Ventricle Normal LV size. The estimated ejection fraction is 55 %. No evidence for diastolic dysfunction. Right Ventricle Normal RV size. Normal systolic function. Atria The left atrium is mildly enlarged. Normal right atrium. No doppler evidence for ASD. Mitral Valve There is no mitral valve stenosis. Trivial mitral valve insufficiency. Tricuspid Valve There is no tricuspid stenosis. Unable to estimate RV systolic pressure due to inadequate jet, pulmonary artery pressure probably normal. Aortic Valve Bicuspid aortic valve. There is no aortic stenosis. No aortic valve insufficiency. Pulmonic Valve There is no pulmonic valvular stenosis. No pulmonic valve insufficiency. Pericardium/Pleural No pericardial effusion. Medication Diluted definity 5ml given slow IV push to enhance endocardial definition. MMode/2D Measurements & Calculations LVIDd: 5.1 cm IVSd: 1.4 cm LA dimension: 5.4 cm LVIDs: 3.7 cm LVPWd: 1.4 cm FS: 27.6 % LAV(MOD-sp4): 106.8 ml LA A4 area: 29.9 cm2 Time Measurements MV dec time: 0.19 sec Doppler Measurements & Calculations MV E max attila: 100.3 cm/sec Lat Peak E' Attila: 11.0 cm/sec Med Peak E' Attila: 7.2 cm/sec MV A max attila: 34.3 cm/sec E/E' lat: 9.1 E/E' med: 13.9 MV E/A: 2.9 MV V2 max: 108.8 cm/sec MV P1/2t max attila: 109.8 cm/sec Ao V2 max: 122.1 cm/sec MV max P.7 mmHg MV P1/2t: 103.5 msec Ao max P.0 mmHg MV V2 mean: 53.9 cm/sec MV dec slope: 310.6 cm/sec2 MV mean P.5 mmHg MVA(P1/2t): 2.1 cm2 MV V2 VTI: 29.9 cm LV V1 max: 77.5 cm/sec PA V2 max: 129.0 cm/sec TR max attila: 205.7 cm/sec LV V1 max P.4 mmHg TR max P.9 mmHg ECHO/Echo Complete W/ Contrast Interpretation Summary The estimated ejection fraction is 55 %. No evidence for diastolic dysfunction. Trivial mitral valve insufficiency. Bicuspid aortic valve. The study was technically difficult. Contrast injection was performed. Ordering Physician: Gustavo Ordonez Performed By: Chino Smith RCS
--- NOTE | 2021-01-10 10:05 | NURSING ---
Was asked to see patient for chronic wounds to bilateral lower legs. patient states that [facility] and the wraps are left in place for 7 days. Pt was just at the [facility] on 01/09/21 so pt refused for wraps to be removed today by this nurse. According to the wound center note, patient is to get dressings changed at the facility on Wednesday and then again next at the wound center. will follow as needed.
--- NOTE | 2021-01-10 10:11 | CASEMGMT ---
BREEZY noted patient is from [facility]. SW will check with patient to see if his plan is to return. Stacy Haddad MSW SHARAN
--- NOTE | 2021-01-10 11:20 | PN.HOSP_ITS ---
Subjective Subjective Patient is a 80-year-old gentleman admitted with persistent cough with near syncopal episode and shortness of breath. Admitted to a monitored bed for subsequent evaluation Objective Data Objective Data Vital Signs: Vital Signs Temp Pulse Resp BP Pulse Ox 97.8 F 60 18 128/64 H 97 01/10/21 09:10 01/10/21 09:10 01/10/21 09:10 01/10/21 09:10 01/10/21 09:25 Oxygen Flow Rate (L/min) 2 Oxygen Delivery Method Nasal Cannula Weight: 152.4 kg Body Mass Index (BMI) 45.5 Intake & Output: Intake and Output for Last 24 Hours 01/08/21 01/09/21 01/10/21 23:59 23:59 23:59 Intake Total 240 / 240 Output Total 600 / 600 250 / 250 Balance -360 / -360 -250 / -250 Lab / Micro Data Result Diagrams: 01/10/21 02:40 01/10/21 02:40 Labs: Laboratory Results - last 24 hr 01/09/21 01/09/21 01/09/21 14:40 14:40 14:40 WBC 7.2 RBC 4.76 Hgb 12.8 L Hct 42.3 MCV 88.9 MCH 26.9 L MCHC 30.3 L RDW Std Deviation 51.9 H RDW Coeff of Yue 15.9 H Plt Count 209 MPV 10.1 Immature Gran % (Auto) 0.300 Neut % (Auto) 66.7 Lymph % (Auto) 18.1 L [place] % (Auto) 11.6 H Eos % (Auto) 2.6 Baso % (Auto) 0.7 Absolute Neuts (auto) 4.8 Absolute Lymphs (auto) 1.30 Nucleated RBC % 0 D-Dimer Quant (PE/DVT) 0.99 H* Sodium 140 Potassium 3.6 Chloride 105 Carbon Dioxide 32.0 Anion Gap 3 L BUN 18 Creatinine 0.96 Estim Creat Clear Calc 68.48 Est GFR (MDRD) Af Amer 97 Est GFR (MDRD) Non-Af 80 BUN/Creatinine Ratio 18.7 Glucose 166 H Calcium 9.0 Troponin I < 0.015 B-Natriuretic Peptide POC Glucose 01/09/21 01/09/21 01/09/21 14:40 20:27 23:47 WBC RBC Hgb Hct MCV MCH MCHC RDW Std Deviation RDW Coeff of Yue Plt Count MPV Immature Gran % (Auto) Neut % (Auto) Lymph % (Auto) [place] % (Auto) Eos % (Auto) Baso % (Auto) Absolute Neuts (auto) Absolute Lymphs (auto) Nucleated RBC % D-Dimer Quant (PE/DVT) Sodium Potassium Chloride Carbon Dioxide Anion Gap BUN Creatinine Estim Creat Clear Calc Est GFR (MDRD) Af Amer Est GFR (MDRD) Non-Af BUN/Creatinine Ratio Glucose Calcium Troponin I < 0.015 B-Natriuretic Peptide 151.1 H POC Glucose 113 H 01/09/21 01/10/21 01/10/21 23:50 02:40 02:40 WBC 7.4 RBC 4.58 L Hgb 12.4 L Hct 40.7 MCV 88.9 MCH 27.1 MCHC 30.5 L RDW Std Deviation 51.9 H RDW Coeff of Yue 15.9 H Plt Count 217 MPV 9.8 Immature Gran % (Auto) 0.100 Neut % (Auto) 60.0 Lymph % (Auto) 21.5 [place] % (Auto) 13.5 H Eos % (Auto) 4.1 Baso % (Auto) 0.8 Absolute Neuts (auto) 4.4 Absolute Lymphs (auto) 1.58 Nucleated RBC % 0 D-Dimer Quant (PE/DVT) Sodium 142 Potassium 3.3 L Chloride 106 Carbon Dioxide 32.0 Anion Gap 4 L BUN 16 Creatinine 0.83 Estim Creat Clear Calc 79.21 Est GFR (MDRD) Af Amer 116 Est GFR (MDRD) Non-Af 95 BUN/Creatinine Ratio 19.4 Glucose 90 Calcium 8.7 Troponin I < 0.015 B-Natriuretic Peptide POC Glucose 01/10/21 01/10/21 02:40 06:51 WBC RBC Hgb Hct MCV MCH MCHC RDW Std Deviation RDW Coeff of Yue Plt Count MPV Immature Gran % (Auto) Neut % (Auto) Lymph % (Auto) [place] % (Auto) Eos % (Auto) Baso % (Auto) Absolute Neuts (auto) Absolute Lymphs (auto) Nucleated RBC % D-Dimer Quant (PE/DVT) Sodium Potassium Chloride Carbon Dioxide Anion Gap BUN Creatinine Estim Creat Clear Calc Est GFR (MDRD) Af Amer Est GFR (MDRD) Non-Af BUN/Creatinine Ratio Glucose Calcium Troponin I < 0.015 B-Natriuretic Peptide POC Glucose 103 Radiography Diagnostic Testing: Radiology Impression Chest X-Ray 01/09/21 15:05 IMPRESSION: Cardiomegaly with vascular congestion and pulmonary edema. Superimposed infection cannot be entirely excluded. at 1541 Reported and signed by: Romie Thomas MD Electronically Signed: Romie Thomas MD at 15:40 EDT Tel , Service support , Chest CTA 01/09/21 15:23 IMPRESSION: No pulmonary embolism. Cardiac size upper normal limits with pulmonary changes of pulmonary edema, small pleural effusions. Evidence of increased right heart pressures. Individualized dose optimization techniques were used for this CT. at 1608 Reported and signed by: Romie Thomas MD Electronically Signed: Romie Thomas MD at 16:07 EDT Tel , Service support , Physical Exam Narrative GENERAL: cooperative HEENT: Atraumatic; EYES; Anicteric, Normal Conjunctiva NECK; supple, normal thyroid, RESPIRATORY: Diminished to auscultation CARDIOVASCULAR: Regular S1 S2, GI: soft, normoactive bowel sounds, : No Renal angle tenderness; EXTREMITIES: edema, no clubbing, MUSCULOSKELETAL: no muscle waisting NEURO: Awake; no lateralizing signs. SKIN: No Rash PSYCH; Flat affect Assessment & Plan Assessment/Plan (1) Pre-syncope: (2) Asthma: (3) Benign essential HTN: (4) DM2 (diabetes mellitus, type 2): QUALIFIERS: Qualified Code(s): Z79.4 - penitentiary (current) use of insulin (5) HLD (hyperlipidemia): (6) Obstructive sleep apnea: (7) CHF (congestive heart failure): PLAN: Patient is a 80-year-old gentleman admitted with persistent cough with near syncopal episode and shortness of breath. Admitted to a monitored bed for subsequent evaluation 1. Presyncopal episode ?Following prolonged episodes of persistent cough. Imaging studies obtained on admission did not reveal the etiology of his cough. Patient has been admitted to monitored bed for continuous telemetry. His evaluation so far unremarkable. Ordered a 2D echo 2. Acute on chronic congestive heart failure ?With preserved ejection fraction patient is on diuretics did continue 3. Moderate intermittent asthma ?May be etiology of patient persistent cough did continue with patient dilator treatments regimen 4. Hypertension - Blood pressure controlled, home medications continued with dose adjustment as needed 5. Morbid obesity - With a BMI of 45.6 patient was counseled on weight reduction 6. Diabetes mellitus type II -patient's oral hypoglycemics held. Placed on long acting insulin, Accu-Cheks a.c. and at bedtime and covered with sliding scale insulin 7. GERD ?Patient is on PPI did continue 8. BPH ?Patient is on tamsulosin did continue 9. Dyslipidemia -Patient is on statin therapy, continued at home dose 10. DVT prophylaxis - On enoxaparin Visit Charges OBSV E&M: 07250 Subsequent observation care L3
[2021-01-10 11:40] LABS: Bedside Glucose 205 mg/dL (70-110)
--- NOTE | 2021-01-10 14:03 | CASEMGMT ---
BREEZY met with patient and his plan is to return to [facility]. He will need transport back via van. He is not normally on O2. BREEZY faxed updates to [facility] and wrote on fax face sheet that patient may return over the weekend. Green sheet on chart. Plan: d/c back to [facility] [place]. Stacy TSANG
--- NOTE | 2021-01-10 15:18 | CASEMGMT ---
JANEEN RIVAS in to discuss VILLA form with patient. RN ROB explained VILLA form, patient voiced understanding. Pt signed form and filed in chart. Pt provided with a copy of signed VILLA form. Pt states he does not have O2 at home either, although is using currently. Pt provided list of local in network DME providers should pt need O2 once dc'd. Pt preferred choice is [employer]. Patient had no further questions or concerns at this time. Green sheet on chart in case pt needs O2.
[2021-01-10 17:21] LABS: Bedside Glucose 167 mg/dL (70-110)
[2021-01-10] MEDS: Magnesium Chloride 64 MG Delay Rel.Tablet 128 MG PO (17:22)
[2021-01-10] MEDS: guaiFENesin 10 ML UDC (200MG/10ML) 5 ML PO (19:47)
[2021-01-10] MEDS: Tamsulosin HCl 0.4 MG Capsule PO (21:21)
[2021-01-10] MEDS: Atorvastatin Calcium 80 MG Tablet PO (21:21)
[2021-01-10] MEDS: Mirtazapine 15 MG Tablet PO (21:21)
[2021-01-10 23:11] LABS: Bedside Glucose 145 mg/dL (70-110)
[2021-01-11] VITALS (21 sets, daily range): BP systolic 129–163; BP diastolic 59–89; PULSE 60–83; RESP 12–30; TEMP 36.7–36.9; O2SAT 85–97
--- NOTE | 2021-01-11 01:32 | NURSING ---
pt called out requesting to have cpap taken off. placed pt back on 4l n/c and informed RT. will monitor oxygen saturations on 4l n/c during sleep
--- NOTE | 2021-01-11 02:57 | CPS ---
pt called out after 1am saying he didn't want bipap on any longer. He did not like it. Nasal o2 re-applied
[2021-01-11] MEDS: Oxybutynin 5 MG Tablet PO ×3 (05:54→21:54)
[2021-01-11 06:45] LABS: Bedside Glucose 119 mg/dL (70-110)
[2021-01-11] MEDS: Ipratropium/Albuterol Sulfate 3 ML AMPUL.NEB INHALATION ×3 (07:14→18:42)
[2021-01-11] MEDS: Juven (unflavored) Packet 1 PACKET PO ×2 (07:55→16:21)
[2021-01-11] MEDS: Aspirin 81 MG TAB.CHEW PO (07:56)
[2021-01-11] MEDS: Pantoprazole Sodium 40 MG Tablet PO (09:37)
[2021-01-11] MEDS: PARoxetine 10 MG Tablet PO (09:37)
[2021-01-11] MEDS: Cholecalciferol (VIT D3) 25 MCG TABLET (1,000 UNITS) 50 MCG PO (09:37)
[2021-01-11] MEDS: Enoxaparin 40 MG/0.4 ML Syringe SC (09:37)
[2021-01-11] MEDS: Metoprolol Tartrate 25 MG Tablet PO ×2 (09:37→21:54)
[2021-01-11] MEDS: Famotidine 20 MG Tablet 40 MG PO ×2 (09:38→21:54)
[2021-01-11] MEDS: Dicyclomine 10 MG Capsule PO ×4 (09:38→21:54)
[2021-01-11] MEDS: Montelukast 10 MG Tablet PO (09:38)
[2021-01-11] MEDS: Furosemide 40 MG/4 ML Vial IV ×2 (09:38→17:06)
[2021-01-11] MEDS: Docusate Sodium 100 MG Capsule PO (09:38)
[2021-01-11] MEDS: guaiFENesin 1,200 MG Tablet 1200 MG PO ×2 (09:38→21:54)
[2021-01-11] MEDS: Fluticasone 0.05% 1 SPRAY NASAL.SRY 2 SPRAY NASAL (09:39)
[2021-01-11] MEDS: guaiFENesin 10 ML UDC (200MG/10ML) 5 ML PO ×3 (09:53→22:01)
[2021-01-11] MEDS: Polyethylene Glycol 3350 17 GM PACKET PO ×2 (09:54→22:01)
--- NOTE | 2021-01-11 10:30 | PCM.DC.SUM ---
Providers Date of Admission: 01/09/21 Primary Care Physician: Dr. Bertrand Warner MD Consultations 01/10/21 08:04 Consult: Onc/Wound/pipe jeeper Routine Comment: Reason for Consult:: BLE wound, follows with wound center Reason For Visit: ACUTE ON CHRONIC HEART FAILURE, NEAR SYNCOPE Diagnosis Discharge Diagnosis (1) Pre-syncope: Status: Acute Code(s): R55 - Syncope and collapse (2) Asthma: Status: Chronic Code(s): J45.909 - Unspecified asthma, uncomplicated (3) Benign essential HTN: Status: Chronic Code(s): I10 - Essential (primary) hypertension (4) DM2 (diabetes mellitus, type 2): Status: Chronic Code(s): E11.9 - Type 2 diabetes mellitus without complications Qualifiers: Qualified Code(s): Z79.4 - intermediate (current) use of insulin (5) HLD (hyperlipidemia): Status: Chronic Code(s): E78.5 - Hyperlipidemia, unspecified (6) Obstructive sleep apnea: Status: Chronic Code(s): G47.33 - Obstructive sleep apnea (adult) (pediatric) (7) CHF (congestive heart failure): Status: Chronic Code(s): I50.9 - Heart failure, unspecified Medications at Discharge Home Medications aspirin 81 mg PO DAILY 06/09/13 nitroglycerin 0.4 mg SUBLINGUAL Q5M PRN 06/09/13 magnesium oxide 400 mg PO DAILY 10/07/15 oxybutynin chloride 5 mg PO TID 01/27/16 metoprolol tartrate 25 mg PO BID 05/08/16 furosemide 40 mg PO BID 10/17/16 atorvastatin 80 mg PO QHS 08/05/18 pantoprazole 40 mg PO DAILY 09/08/18 cholecalciferol (vitamin D3) 2,000 unit PO DAILY 11/24/19 famotidine 40 mg PO BID 11/24/19 fluticasone propionate 2 spray NASAL DAILY 11/24/19 montelukast 10 mg PO DAILY 11/24/19 docusate sodium 100 mg PO DAILY #20 cap 05/20/20 acetaminophen [Tylenol Extra Strength] 1,000 mg PO Q6H PRN 01/09/21 alum-mag hydroxide-simeth [Mintox Maximum Strength] 20 ml PO Q6H PRN 01/09/21 calcium carbonate-vitamin D2 1 tab PO DAILY 01/09/21 dicyclomine 10 mg PO 4X/DAY 01/09/21 glimepiride 4 mg PO BREAKFAST 01/09/21 metformin [Glucophage] 500 mg PO TID 01/09/21 mirtazapine 15 mg PO QHS 01/09/21 tamsulosin 0.4 mg PO QHS 01/09/21 benzonatate 200 mg PO TID PRN #30 cap 01/11/21 Hospital Course Summary of Care Provided Minutes Spent on Discharge: 35 Hospital Course: Patient is a 80-year-old gentleman admitted with persistent cough with near syncopal episode and shortness of breath. Admitted to a monitored bed for subsequent evaluation 1.? Presyncopal episode ?Following prolonged episodes of persistent cough.? Imaging studies obtained on admission did not reveal the etiology of his cough.? Patient has been admitted to monitored bed for continuous telemetry.? His evaluation so far unremarkable.? Ordered a 2D echo 2.? Acute on chronic congestive heart failure (EF of 55%) ?With preserved ejection fraction patient is on diuretics did continue 3.? Moderate intermittent asthma ?May be etiology of patient persistent cough did continue with patient dilator treatments regimen. -Referral was given for patient to follow-up with pulmonary medicine as outpatient for subsequent evaluation of his persistent cough and treatment of his asthma 4.? Hypertension - Blood pressure controlled, home medications continued with dose adjustment as needed 5.? Morbid obesity - With a BMI of 45.6 patient was counseled on weight reduction 6.? Diabetes mellitus type II -patient's oral hypoglycemics held. Placed on long acting insulin, Accu-Cheks a.c. and at bedtime and covered with sliding scale insulin 7.? GERD ?Patient is on PPI did continue 8.? BPH ?Patient is on tamsulosin did continue 9.? Dyslipidemia -Patient is on statin therapy, continued at home dose 10.? DVT prophylaxis - On enoxaparin Physical Exam Narrative GENERAL: cooperative HEENT: Atraumatic; EYES; Anicteric, Normal Conjunctiva NECK; supple, normal thyroid, RESPIRATORY: Diminished to auscultation CARDIOVASCULAR: Regular S1 S2, GI: soft, normoactive bowel sounds, : No Renal angle tenderness; EXTREMITIES: edema, no clubbing, MUSCULOSKELETAL: no muscle waisting NEURO: Awake; no lateralizing signs. SKIN: No Rash PSYCH; Flat affect ABG / Lab / Microbiology Data Result Diagrams: 01/10/21 02:40 01/10/21 02:40 Laboratory: Laboratory Results - last 24 hr 01/10/21 01/10/21 01/10/21 11:18 17:02 23:02 POC Glucose 205 H 167 H 145 H 01/11/21 06:39 POC Glucose 119 H Radiography Diagnostic Testing: Radiology Impression Echocardiogram 01/10/21 09:24 Interpretation Summary The estimated ejection fraction is 55 %. No evidence for diastolic dysfunction. Trivial mitral valve insufficiency. Bicuspid aortic valve. The study was technically difficult. Contrast injection was performed. Ordering Physician: Gustavo Ordonez Performed By: Chino Smith RCS D/C Instructions Discharge Diet: 2000 Calorie Control Diet and 8 Cup Fluid Restriction Discharge Activity: Return to Normal Activity Call your doctor if you observe: Fever of 101 or Higher, Shortness of breath, Fainting spells and Chest pain Meaningful Use Info Meaningful Use Diagnoses (Choose all that apply): CHF CHF CIELO/ARB ordered at discharge?: No Reason CIELO/ARB not ordered?: Allergy Documented LVEF (%): 55 Discharge Plan Admission Admit Date/Time: 01/09/21 18:48 Attending Provider: Gustavo Ordonez Primary Care Provider: Bertrand Warner Discharge Orders/Prescriptions Prescriptions: New benzonatate 100 mg Capsule 200 mg PO TID PRN (Reason: COUGH) Qty: 30 RF: 0 Continued nitroglycerin 0.4 MG tablet 0.4 mg sublingual Q5M PRN (Reason: Chest Pain) RF: 0 aspirin 81 MG tablet,chewable 81 mg PO DAILY RF: 0 magnesium oxide 400 MG tablet 400 mg PO DAILY RF: 0 oxybutynin chloride 5 MG tablet 5 mg PO TID RF: 0 metoprolol tartrate 25 MG tablet 25 mg PO BID RF: 0 furosemide 40 MG tablet 40 mg PO BID RF: 0 atorvastatin 80 MG tablet 80 mg PO QHS RF: 0 pantoprazole 40 MG tablet 40 mg PO DAILY RF: 0 famotidine 40 MG tablet 40 mg PO BID RF: 0 montelukast 10 MG tablet 10 mg PO DAILY RF: 0 fluticasone propionate 1 SPRAY spray,suspension 2 spray NASAL DAILY RF: 0 cholecalciferol (vitamin D3) 2,000 UNIT capsule 2,000 unit PO DAILY RF: 0 docusate sodium 100 MG capsule 100 mg PO DAILY Qty: 20 RF: 0 metformin [Glucophage] 500 mg tablet 500 mg PO TID RF: 0 tamsulosin 0.4 mg Capsule 0.4 mg PO QHS RF: 0 mirtazapine 15 mg Tablet 15 mg PO QHS RF: 0 dicyclomine 10 mg Capsule 10 mg PO 4X/DAY RF: 0 acetaminophen [Tylenol Extra Strength] 500 mg Tablet 1,000 mg PO Q6H PRN (Reason: Pain) RF: 0 glimepiride 4 mg Tablet 4 mg PO BREAKFAST RF: 0 alum-mag hydroxide-simeth [Mintox Maximum Strength] 400-400-40 mg/5 mL Suspension 20 ml PO Q6H PRN (Reason: UPSET STOMACH) RF: 0 calcium carbonate-vitamin D2 500 mg(1,250mg) -200 unit Tablet 1 tab PO DAILY RF: 0 Referrals / Follow Up: Cali Oneill DO [STAFF PHYSICIAN] - Within 2 Weeks (Patient to call to schedule an appointment to be seen for evaluation of persistent cough) Bertrand Warner MD [Primary Care Provider] - In 1 Week Disposition Disposition (needs filled in before D/C Order can be placed): Home, self care Visit Charges OBSV E&M: 89240 Observation care discharge
--- NOTE | 2021-01-11 10:45 | PCM.DC ---
Discharge Instructions Diet Discharge Diet: 2000 Calorie Control Diet and 8 Cup Fluid Restriction Activity Discharge Activity: Return to Normal Activity Dressing / Incision Call your doctor if you observe: Fever of 101 or Higher, Shortness of breath, Fainting spells and Chest pain Follow Up Care Test Results: Test results from this visit will be discussed in further detail at your follow-up appointment, if applicable. Discharge Plan Admission Admit Date/Time: 01/09/21 18:48 Attending Provider: Gustavo Ordonez Primary Care Provider: Bertrand Warner Discharge Orders/Prescriptions Prescriptions: New benzonatate 100 mg Capsule 200 mg PO TID PRN (Reason: COUGH) Qty: 30 RF: 0 Continued nitroglycerin 0.4 MG tablet 0.4 mg sublingual Q5M PRN (Reason: Chest Pain) RF: 0 aspirin 81 MG tablet,chewable 81 mg PO DAILY RF: 0 magnesium oxide 400 MG tablet 400 mg PO DAILY RF: 0 oxybutynin chloride 5 MG tablet 5 mg PO TID RF: 0 metoprolol tartrate 25 MG tablet 25 mg PO BID RF: 0 furosemide 40 MG tablet 40 mg PO BID RF: 0 atorvastatin 80 MG tablet 80 mg PO QHS RF: 0 pantoprazole 40 MG tablet 40 mg PO DAILY RF: 0 famotidine 40 MG tablet 40 mg PO BID RF: 0 montelukast 10 MG tablet 10 mg PO DAILY RF: 0 fluticasone propionate 1 SPRAY spray,suspension 2 spray NASAL DAILY RF: 0 cholecalciferol (vitamin D3) 2,000 UNIT capsule 2,000 unit PO DAILY RF: 0 docusate sodium 100 MG capsule 100 mg PO DAILY Qty: 20 RF: 0 metformin [Glucophage] 500 mg tablet 500 mg PO TID RF: 0 tamsulosin 0.4 mg Capsule 0.4 mg PO QHS RF: 0 mirtazapine 15 mg Tablet 15 mg PO QHS RF: 0 dicyclomine 10 mg Capsule 10 mg PO 4X/DAY RF: 0 acetaminophen [Tylenol Extra Strength] 500 mg Tablet 1,000 mg PO Q6H PRN (Reason: Pain) RF: 0 glimepiride 4 mg Tablet 4 mg PO BREAKFAST RF: 0 alum-mag hydroxide-simeth [Mintox Maximum Strength] 400-400-40 mg/5 mL Suspension 20 ml PO Q6H PRN (Reason: UPSET STOMACH) RF: 0 calcium carbonate-vitamin D2 500 mg(1,250mg) -200 unit Tablet 1 tab PO DAILY RF: 0 Referrals / Follow Up: Cali Oneill DO [STAFF PHYSICIAN] - Within 2 Weeks (Patient to call to schedule an appointment to be seen for evaluation of persistent cough) Bertrand Warner MD [Primary Care Provider] - In 1 Week Disposition Disposition (needs filled in before D/C Order can be placed): Home, self care
[2021-01-11] MEDS: Insulin Lispro 100 UNIT/ML INSULN.PEN SC ×2 (11:14→16:21)
[2021-01-11 11:26] LABS: Bedside Glucose 273 mg/dL (70-110)
[2021-01-11] MEDS: Potassium Chloride Oral Tablet 20 MEQ 60 MEQ PO (11:53)
--- NOTE | 2021-01-11 12:17 | EKG12_ITS ---
Test Reason : Blood Pressure : / mmHG Vent. Rate : 060 BPM Atrial Rate : 326 BPM P-R Int : 000 ms QRS Dur : 198 ms QT Int : 532 ms P-R-T Axes : 000 -55 101 degrees QTc Int : 532 ms Atrial fibrillation with ventricular pacing Left axis deviation Non-specific intra-ventricular conduction block Abnormal ECG When compared with ECG of 09-JAN-2021 14:35, MANUAL COMPARISON REQUIRED, DATA IS UNCONFIRMED Confirmed by LAURA MEEK, SHAR ([id number]), newspaper editor managing LEIGH CABA ([id number]) on 01/16/2021 11:22:12 AM Referred By: ESTRELLITA Confirmed By:SHAR SANCHEZ MD
[2021-01-11] MEDS: Nitroglycerin (INPATIENT USE) 0.4 MG TAB.SUBL SL ×3 (12:20→12:34)
--- NOTE | 2021-01-11 12:33 | PN.HOSP_ITS ---
Subjective Subjective Patient is a 80-year-old gentleman who is currently being managed as a case of acute congestive heart failure as well as persistent cough. Patient has been on admission and plan was for patient to have been discharged home however did develop chest pain. EKG demonstrated paced rhythm. Subsequent serial cardiac enzymes ordered given nitroglycerin for symptom management Objective Data Objective Data Vital Signs: Vital Signs Temp Pulse Resp BP Pulse Ox 98.3 F 60 20 H 131/63 H 94 01/11/21 12:11 01/11/21 12:25 01/11/21 12:11 01/11/21 12:25 01/11/21 12:11 Oxygen Flow Rate (L/min) 2 Oxygen Delivery Method Nasal Cannula Weight: 151.2 kg Body Mass Index (BMI) 45.5 Intake & Output: Intake and Output for Last 24 Hours 01/09/21 01/10/21 01/11/21 23:59 23:59 23:59 Intake Total 240 / 240 917.75 / 917.75 520 / 520 Output Total 600 / 600 550 / 550 400 / 400 Balance -360 / -360 367.75 / 367.75 120 / 120 Lab / Micro Data Result Diagrams: 01/10/21 02:40 01/10/21 02:40 Labs: Laboratory Results - last 24 hr 01/10/21 01/10/21 01/11/21 17:02 23:02 06:39 POC Glucose 167 H 145 H 119 H 01/11/21 11:09 POC Glucose 273 H Radiography Diagnostic Testing: Radiology Impression Echocardiogram 01/10/21 09:24 Interpretation Summary The estimated ejection fraction is 55 %. No evidence for diastolic dysfunction. Trivial mitral valve insufficiency. Bicuspid aortic valve. The study was technically difficult. Contrast injection was performed. Ordering Physician: Gustavo Ordonez Performed By: Chino Smith RCS Physical Exam Narrative GENERAL: cooperative HEENT: Atraumatic; EYES; Anicteric, Normal Conjunctiva NECK; supple, normal thyroid, RESPIRATORY: Diminished to auscultation CARDIOVASCULAR: Regular S1 S2, GI: soft, normoactive bowel sounds, : No Renal angle tenderness; EXTREMITIES: edema, no clubbing, MUSCULOSKELETAL: no muscle waisting NEURO: Awake; no lateralizing signs. 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 Admitted to a monitored bed for subsequent evaluation 1. Presyncopal episode ?Following prolonged episodes of persistent cough. Imaging studies obtained on admission did not reveal the etiology of his cough. Patient has been admitted to monitored bed for continuous telemetry. His evaluation so far unremarkable. Ordered a 2D echo 2. Acute on chronic congestive heart failure ?With preserved ejection fraction patient is on diuretics did continue 3. Chest pain. -EKG demonstrated paced rhythm. Subsequent serial cardiac enzymes ordered given nitroglycerin for symptom management 4. Moderate intermittent asthma ?May be etiology of patient persistent cough did continue with patient dilator treatments regimen 5. Morbid obesity - With a BMI of 45.6 patient was counseled on weight reduction 6. Diabetes mellitus type II -patient's oral hypoglycemics held. Placed on long acting insulin, Accu-Cheks a.c. and at bedtime and covered with sliding scale insulin 7. GERD ?Patient is on PPI did continue 8. BPH ?Patient is on tamsulosin did continue 9. Dyslipidemia -Patient is on statin therapy, continued at home dose 10. Hypertension - Blood pressure controlled, home medications continued with dose adjustment as needed 11. DVT prophylaxis - On enoxaparin Visit Charges OBSV E&M: 03123 Subsequent observation care L3
[2021-01-11] MEDS: Magnesium Chloride 64 MG Delay Rel.Tablet 128 MG PO (16:21)
[2021-01-11] MEDS: Benzonatate 100 MG Capsule 200 MG PO (16:21)
[2021-01-11 16:36] LABS: Bedside Glucose 183 mg/dL (70-110)
[2021-01-11] MEDS: Mirtazapine 15 MG Tablet PO (21:54)
[2021-01-11] MEDS: Atorvastatin Calcium 80 MG Tablet PO (21:54)
[2021-01-11] MEDS: Tamsulosin HCl 0.4 MG Capsule PO (21:54)
[2021-01-11 22:01] LABS: Bedside Glucose 141 mg/dL (70-110)
--- NOTE | 2021-01-11 23:34 | CPS ---
Patient refused BIPAP for tonight. RN aware.
[2021-01-12] VITALS (11 sets, daily range): BP systolic 135–147; BP diastolic 59–79; PULSE 63–88; RESP 18–20; TEMP 36.7; O2SAT 86–93
[2021-01-12] MEDS: Oxybutynin 5 MG Tablet PO ×2 (05:09→14:07)
[2021-01-12 06:35] LABS: Bedside Glucose 131 mg/dL (70-110)
[2021-01-12] MEDS: Ipratropium/Albuterol Sulfate 3 ML AMPUL.NEB INHALATION ×3 (07:04→15:06)
[2021-01-12] MEDS: Aspirin 81 MG TAB.CHEW PO (08:12)
[2021-01-12] MEDS: Juven (unflavored) Packet 1 PACKET PO ×2 (08:12→16:33)
[2021-01-12] MEDS: guaiFENesin 10 ML UDC (200MG/10ML) 5 ML PO (08:12)
[2021-01-12] MEDS: Benzonatate 100 MG Capsule 200 MG PO (08:12)
[2021-01-12 08:42] LABS: Anion Gap 1 (5-15); BUN 22 mg/dL (7-18); Calcium,Total 8.7 mg/dL (8.5-10.1); Chloride 105 mmol/L (98-107); Creatinine, Serum 0.85 mg/dL (0.70-1.30); EST Glomerular Filtration Rate 93 mL/min (>60); Est Glom Filt Rate - Afr Amer 112 mL/min (>60); Estimated Creatinine Clearance 77.35 ml/min; Glucose 132 mg/dL (74-106); Potassium 3.8 mmol/L (3.5-5.1); Sodium Level 140 mmol/L (136-145)
[2021-01-12] MEDS: Montelukast 10 MG Tablet PO (09:34)
[2021-01-12] MEDS: Famotidine 20 MG Tablet 40 MG PO (09:34)
[2021-01-12] MEDS: Cholecalciferol (VIT D3) 25 MCG TABLET (1,000 UNITS) 50 MCG PO (09:34)
[2021-01-12] MEDS: Dicyclomine 10 MG Capsule PO ×2 (09:35→14:08)
[2021-01-12] MEDS: guaiFENesin 1,200 MG Tablet 1200 MG PO (09:35)
[2021-01-12] MEDS: Polyethylene Glycol 3350 17 GM PACKET PO (09:35)
[2021-01-12] MEDS: Metoprolol Tartrate 25 MG Tablet PO (09:35)
[2021-01-12] MEDS: Pantoprazole Sodium 40 MG Tablet PO (09:35)
[2021-01-12] MEDS: Furosemide 40 MG/4 ML Vial IV (09:35)
[2021-01-12] MEDS: Docusate Sodium 100 MG Capsule PO (09:35)
[2021-01-12] MEDS: Enoxaparin 40 MG/0.4 ML Syringe SC (09:36)
[2021-01-12] MEDS: Fluticasone 0.05% 1 SPRAY NASAL.SRY 2 SPRAY NASAL (09:36)
[2021-01-12] MEDS: PARoxetine 10 MG Tablet PO (09:37)
[2021-01-12] MEDS: Insulin Lispro 100 UNIT/ML INSULN.PEN SC ×2 (11:34→16:33)
[2021-01-12 11:41] LABS: Bedside Glucose 258 mg/dL (70-110)
--- NOTE | 2021-01-12 12:54 | NURSING ---
This RN called [facility] and gave report to JANEEN Koroma.
[2021-01-12] MEDS: Magnesium Chloride 64 MG Delay Rel.Tablet 128 MG PO (16:32)
[2021-01-12 16:40] LABS: Bedside Glucose 181 mg/dL (70-110)
== END 2021-01-12 09:07 | disposition home or self-care (01) ==
LOC: ED 16:40 → PCU 19:43
PROVIDERS: Internal Medicine; Admitting Provider Student in an Organized Health Care Education/Training Program; Emergency Provider Emergency Medicine; PCP Family Medicine; Visit Provider Family Medicine
DX: R55 Syncope and collapse (principal); J44.9 Chronic obstructive pulmonary disease, unspecified; I11.0 Hypertensive heart disease with heart failure; E78.5 Hyperlipidemia, unspecified; I50.33 Acute on chronic diastolic (congestive) heart failure; E11.9 Type 2 diabetes mellitus without complications; I48.91 Unspecified atrial fibrillation; K21.9 Gastro-esophageal reflux disease without esophagitis; E66.01 Morbid (severe) obesity due to excess calories; F32.9 Major depressive disorder, single episode, unspecified; N40.0 Benign prostatic hyperplasia without lower urinary tract symptoms; Z79.899 Other long term (current) drug therapy; G47.33 Obstructive sleep apnea (adult) (pediatric); Z79.82 Long term (current) use of aspirin; Z79.51 Long term (current) use of inhaled steroids; Z79.84 Long term (current) use of oral hypoglycemic drugs; Z68.42 Body mass index [BMI] 45.0-49.9, adult
CPT/HCPCS: 36415; 71045; 71275; 80048; 82962; 83880; 84484; 85025; 85379; 93005; 93306; 94002; 94003; 94640; 96372; 96374; 96376; 97110; 97162; 97166; 97530; 97802; 99218; 99285; J7030; Q9957; Q9967; A4216; C8929; G0378; J1940

== ENCOUNTER 2021-01-16 09:45 | Outpatient (RCR) | payer MEDICARE, MEDICAID, SELFPAY ==
[2020-12-21 00:55] VITALS: BP 134/84; PULSE 86; RESP 24; TEMP 36.8
[2020-12-26 10:01] VITALS: BMI 38.7
--- NOTE | 2020-12-26 13:23 | PN.PCM_ITS ---
History of Present Illness Date of Service: 12/26/20 Chief Complaint: Nonhealing bilateral lower extremity ulcers. History of Wound: Mr. Dela Cruz is a 80-year-old who presents to the wound center due to nonhealing bilateral lower extremity ulcers. Had been seen here previously. History of chronic venous insufficiency/venous stasis ulcers. Current ulcerations said to have been noted 2 weeks ago. He admits that he has been more sedentary and attributes this to the ongoing pandemic. At the [facility], he has tried some dressings with no significant improvement. History of diabetes mellitus type 2 which per patient states is well controlled. Follows up with Dr. Warner at the [facility] and states that he had blood work about a month ago with no new concerns. Feels well at this time, denies chills, fever or otherwise feeling of unwell. Subjective Subjective: He denies any new concerns at this time. 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 Did not do his dressings as recommended due to lack of supplies. Cultures reviewed, no significant growth. Venous and vascular studies also ordered scheduled for next Wednesday. Continue Aquacel Extra with ABD over top. 3M wrap for edema management, change on Wednesday by facility nurse, follow-up on Wednesday for nurse visit and then subsequent change by facility nurse as well. Elevate lower extremities when seated and in bed. Increase intake of vitamin C and zinc. Optimal diabetes control also recommended. His questions were answered and he was advised to call with any further questions or concerns. Follow-up in 2 weeks. This note was generated with [employer] dictation software. It may contain incorrect words, spelling, and punctuation that were not noted in checking the note before signing. Charges/Coding Procedures Integumentary 111xxx-113xx: [id number] Deja subq tissue 20 sq cm/< Physical Exam Const alert, oriented x3 and no apparent distress General Appearance: cooperative and well developed HEENT normocephalic and hearing grossly normal bilaterally Head and Scalp: normal to inspection Eyes EOMs intact bilaterally General Eye: normal appearance of both eyes Neck full ROM and supple General: normal visual inspection Resp normal respiratory effort Effort and Inspection: able to speak in complete sentences Extremity General Extremity: edema Skin Wounds: wounds noted Neuro oriented x3, CN's II-XII intact bilaterally and moves all extremities Psych mental status grossly normal Appearance: grossly normal Debridement Note Debridement Note Post-Debridement Measurements and Additional Note: Post-Debridement Measurements/Treatment - Nurse 1 - General Ulcer Assessment Start: 12/26/20 10:01 Freq: Status: Active Protocol: JOBY Activity Type Activity Date Activity User E-Sign Co-Sign Detail Recorded Client Recorded Date Recorded By Document 12/26/20 10:01 SEPIDEH [id number] 12/26/20 10:17 SEPIDEH 12/26/20 10:01 - Today's Visit Information Type of service Follow-up Visit (Physician/[facility]NER ) Arrival Mode Ambulatory Patient Identification Verified (Name & Yes ) Height and Weight Body Mass Index (BMI) 38.7 BMI Classification Obese Vital Signs Temperature Source Temporal Pulse Location Monitor Source Monitor Position Semi-Fowlers Blood Pressure Location Right Arm History Since Last Visit- (Skip if this is Patient's initial visit) Have you changed medications since your No last visit? Any new allergies or adverse reactions No Had a fall/change in ADL's that may No increase risk of falls Signs or symptoms of abuse and/or No neglect since last visit Have you been in the hospital since your No last visit? Has dressing in place as prescribed Yes Has compression in place as prescribed Yes Has offloadiing in place as prescribed N/A Experienced any changes in pain level or No management Left Footwear Regular Shoe Right Footwear Regular Shoe Pain Scale: 0-10 Numeric Is Patient Pain Free? Yes - Nurse 1 - General Ulcer Measurement Start: 12/26/20 10:01 Freq: Status: Active Protocol: Activity Type Activity Date Activity User E-Sign Co-Sign Detail Recorded Client Recorded Date Recorded By Document 12/26/20 10:01 SEPIDEH [id number] 12/26/20 10:17 SPEIDEH 12/26/20 10:01 Wound Center Nurse 1 #4 left lower leg -Current Size (cm) - Length 7.2 -Current Size (cm) - Width 3.1 -Current Size (cm) - Depth 0.1 -Total Square Cm 22.32 -Exudate Amt Medium -Exudate Type Serosanguineous -Wound Margin Distinct, Outline Attached -Granulation Amt Large (67-100%) -Granulation Quality Red -Necrosis Amt None Present (0 %) -Texture (Alexandra-wound Skin Appearance) Assessed, Scarring -Moisture (Alexandra-wound Skin Appearance) Assessed,Dry/ Scaly -Color (Alexandra-wound Skin Appearance) No Abnormality, Assessed -Temperature (Alexandra-wound Skin No Abnormality Appearance) (Pt Warm) -Tenderness on Palpation (Alxeandra-wound No Skin Appearance) -Ulcer Cleansing Rinsed/ Irrigated with Saline -Foul Odor after Cleansing No -Anesthetic Used 4% Lidocaine Solution #3 left medial ankle -Current Size (cm) - Length 2.3 -Current Size (cm) - Width 2.5 -Current Size (cm) - Depth 0.1 -Total Square Cm 5.75 -Exudate Amt Medium -Exudate Type Serosanguineous -Wound Margin Distinct, Outline Attached -Granulation Amt Large (67-100%) -Granulation Quality Red -Slough/Fibrin No -Texture (Alexandra-wound Skin Appearance) Assessed, Scarring -Moisture (Alexandra-wound Skin Appearance) Assessed,Dry/ Scaly -Color (Alexandra-wound Skin Appearance) No Abnormality, Assessed -Temperature (Alexandra-wound Skin No Abnormality Appearance) (Pt Warm) -Tenderness on Palpation (Alexandra-wound No Skin Appearance) -Ulcer Cleansing Rinsed/ Irrigated with Saline -Foul Odor after Cleansing No -Anesthetic Used 4% Lidocaine Solution #2 right lower leg post -Current Size (cm) - Length 1.2 -Current Size (cm) - Width 1 -Current Size (cm) - Depth 1 -Total Square Cm 1.2 -Exudate Amt Small -Exudate Type Serosanguineous -Wound Margin Distinct, Outline Attached -Granulation Amt None Present (0 %) -Necrosis Amt None Present (0 %) -Texture (Alexandra-wound Skin Appearance) Assessed, Scarring -Moisture (Alexandra-wound Skin Appearance) Assessed,Dry/ Scaly -Color (Alexandra-wound Skin Appearance) No Abnormality, Assessed -Temperature (Alexandra-wound Skin No Abnormality Appearance) (Pt Warm) -Tenderness on Palpation (Alexandra-wound No Skin Appearance) -Ulcer Cleansing Rinsed/ Irrigated with Saline -Foul Odor after Cleansing No -Anesthetic Used 4% Lidocaine Solution Right Calf (cm) 47.1 Right Ankle (cm) 29 Left Calf (cm) 48.2 Left Ankle (cm) 30 WC - Nurse 2 - General Ulcer CM Notes Start: 12/26/20 10:01 Freq: Status: Active Protocol: Activity Type Activity Date Activity User E-Sign Co-Sign Detail Recorded Client Recorded Date Recorded By Document 12/26/20 10:44 MW [id number] 12/26/20 10:55 MW 12/26/20 10:44 Wound Center Nurse 2 #4 left lower leg -Time 10:44 -Correct Patient Yes -Correct Side, Site, Position Yes -Correct Procedure Yes -Procedure Performed Yes -Type of Procedure Debridement -Clinical Debridement Subcutaneous -Tissue Removed Subcutaneous -Post Debridement (cm) - Length 7.3 -Post Debridement (cm) - Width 3.0 -Post Debridement (cm) - Depth 0.1 -Total Square (Post) (cm) 21.90 -Area of Debridement (cm) - Length 7.3 -Area of Debridement (cm) - Width 3.0 -Total Square (Area) (cm) 21.90 -Tunneling No -Undermining/Tunneling No -Circular Undermining No -Wound/Ulcer Outcome Not Healed -Ulcer Cleansing Rinsed/ Irrigated with Saline -Foul Odor after Cleansing No -Bioengineered Tissue No -Bleeding Controlled with Pressure -Offloading No -Treatment Response Procedure Tolerated Well -Debridement - Subq, 1st 20sq cm Yes -Debridement, SubQ, ea addt'l 20sq cm 1 or part thereof #3 left medial ankle -Time 10:44 -Correct Patient Yes -Correct Side, Site, Position Yes -Correct Procedure Yes -Procedure Performed Yes -Type of Procedure Debridement -Clinical Debridement Subcutaneous -Tissue Removed Subcutaneous -Post Debridement (cm) - Length 2.7 -Post Debridement (cm) - Width 4.0 -Post Debridement (cm) - Depth 0.1 -Total Square (Post) (cm) 10.80 -Area of Debridement (cm) - Length 2.7 -Area of Debridement (cm) - Width 4.0 -Total Square (Area) (cm) 10.80 -Tunneling No -Undermining/Tunneling No -Circular Undermining No -Wound/Ulcer Outcome Not Healed -Ulcer Cleansing Rinsed/ Irrigated with Saline -Foul Odor after Cleansing No -Bioengineered Tissue No -Bleeding Controlled with Pressure -Offloading No -Treatment Response Procedure Tolerated Well -Debridement - Subq, 1st 20sq cm No #2 right lower leg post -Time 10:45 -Correct Patient Yes -Correct Side, Site, Position Yes -Correct Procedure Yes -Procedure Performed Yes -Type of Procedure Debridement -Clinical Debridement Subcutaneous -Tissue Removed Subcutaneous -Post Debridement (cm) - Length 1.4 -Post Debridement (cm) - Width 0.9 -Post Debridement (cm) - Depth 0.1 -Total Square (Post) (cm) 1.26 -Area of Debridement (cm) - Length 1.4 -Area of Debridement (cm) - Width 0.9 -Total Square (Area) (cm) 1.26 -Tunneling No -Undermining/Tunneling No -Circular Undermining No -Wound/Ulcer Outcome Not Healed -Ulcer Cleansing Rinsed/ Irrigated with Saline -Foul Odor after Cleansing No -Bioengineered Tissue No -Bleeding Controlled with Pressure -Offloading No -Treatment Response Procedure Tolerated Well -Debridement - Subq, 1st 20sq cm No Pain Scale: 0-10 Numeric Is Patient Pain Free? Yes - Nurse 3 - General Ulcer D/C NN Start: 12/26/20 10:01 Freq: Status: Active Protocol: Activity Type Activity Date Activity User E-Sign Co-Sign Detail Recorded Client Recorded Date Recorded By Document 12/26/20 11:00 [place] [id number] 12/26/20 11:03 [place] 12/26/20 11:00 Wound Care Nurse 3 #4 left lower leg -Primary Dressing Applied Aquacel Extra -Primary Dressing Covered/Secured with Dry Gauze, Secured with Tape -Aquacel Extra 1 Right -Multi-Layered Wrap Application Multi-Layer Comp - Right ($ ) Left -Multi-Layered Wrap Application Multi-Layer Comp - Left ($) - Visit Discharge Discharge Condition Stable Ambulatory Status Walker Transportation Private Auto Medication Reconcilliation completed & No provided to patient/care provider Clinical Summary of Care Provided Yes Wound debrided: Right casillas Type of Debridement: Excisional debridement Anesthesia Used: 4% Lidocaine Solution Depth: Down to and including healthy tissue Percentage of wound debrided: 100 Instrument Used: 5mm curette Tissue Removed: Slough and devitalized tissue Severity: Fat Layer Exposed Amount of bleeding with debridement: Mild Bleeding Controlled with: Pressure Patient tolerated procedure: Patient tolerated procedure well Additional Wound Wound debrided: Left lower extremity inferior Type of Debridement: Excisional debridement Anesthesia Used: 4% Lidocaine Solution Depth: Down to and including healthy tissue Percentage of wound debrided: 100 Instrument Used: 5mm curette Tissue Removed: Slough on the vitalized tissue Severity: Fat Layer Exposed Amount of bleeding with debridement: Mild Bleeding Controlled with: Pressure Additional Wound Wound debrided: Left lower extremity superior costal Type of Debridement: Excisional debridement Anesthesia Used: 4% Lidocaine Solution Depth: Down to and including healthy tissue and in the subcutaneous layer Percentage of wound debrided: 100 Instrument Used: 5mm curette Tissue Removed: Slough and devitalized tissue Severity: Fat Layer Exposed Amount of bleeding with debridement: Mild Bleeding Controlled with: Pressure Patient tolerated procedure: Patient tolerated procedure well
--- NOTE | 2021-01-01 12:23 | VDLE_ITS ---
Reason For Study: Bilateral LE edema RIGHT LEFT CFV is compressible, spontaneous, phasic, CFV is compressible, spontaneous, phasic, competent and demonstrates normal competent, and demonstrates normal augmentation. augmentation. FV is compressible, spontaneous, phasic, FV is compressible, spontaneous, phasic, competent and demonstrates normal competent and demonstrates normal augmentation. augmentation. POP V is compressible, spontaneous, phasic, POP V is compressible, spontaneous, phasic, competent and demonstrates normal competent and demonstrates normal augmentation. augmentation. T/P Trunk is compressible. T/P Trunk is compressible. SFJ is INCOMPETENT and measures 1.22 x 1.31 GSV harvested above knee. cm. SFJ is competent and measures 0.81 x 0.87 cm. GSV proximal thigh measures 0.66 x 0.67 cm. GSV at knee measures 0.47 x 0.41 cm. GSV at knee measures 0.28 x 0.28 cm. GSV below knee is INCOMPETENT for greater GSV INCOMPETENT throughout for greater than than 0.5 seconds. 0.5 seconds. ASV at knee is INCOMPETENT for greater than ASV mid thigh is INCOMPETENT for greater than 0.5 seconds and measures 0.45 x 0.44 cm. 0.5 seconds and measures 0.52 x 0.50 cm. SSV at junction is competent and measures SSV at junction is competent and measures 0.50 x 0.53 cm. 0.58 x 0.66 cm. Procedure This is a venous duplex using B-mode, color flow and spectral Doppler. Exam performed in department. Unable to visualized bilateral calf veins due to unna boots. A preliminary report was called and/or faxed to . VL/Venous Duplex US - Jon Extrem Interpretation Summary Deep veins of the lower extremities are bilaterally patent and compressible seg mentally. There is no evidence of deep vein thrombosis on either side. Valvular competence appears in tact within the proximal deep venous systems bilaterally. Deep veins of the calves were not vis ualized on either side due to the presence of Unna boots. The right great saphenous vein appears patent and compressible segmentally. The left great saphenous vein has been harvested abov e the knee. The left great saphenous vein is patent and compressible below the knee. The right saphe no-femoral junction is incompetent. The left sapheno-femoral junction is competent. The right great saphenous vein is segmentally incompetent. The left great saphenous vein is incompetent below the knee. Small saphenous veins are patent and competent bilaterally. The accessory saphenous v ein in the right mid- thigh is incompetent. The accessory saphenous vein at the left knee is incompet ent. Ordering Physician: Ran Molina Referring Physician: Bertrand Warner Performed By: Jie Mistry RVT
--- NOTE | 2021-01-01 12:23 | ART_ITS ---
Reason For Study: Ulcer Procedure A bilateral lower extremity continuous wave Doppler with analog waveform analysis,segmental pressures,and ankle brachial indexes without exercise. Left Segmental Pressures Left brachial= 125mmHg. Left posterior tibial artery = 212mmHg. Left dorsalis pedis artery = 222mmHg. Left digit = 139 mmHg. The left dorsalis pedis waveforms are triphasic. The left posterior tibial artery waveforms are triphasic. Right Segmental Pressures Right brachial= 133mmHg. Right posterior tibial artery = 172mmHg. Right dorsalis pedis artery = 184mmHg. Right digit = 148 mmHg. The right dorsalis pedis waveforms are triphasic. The right posterior tibial artery waveforms are triphasic. Indices The right ankle brachial index by the dorsalis pedis is 1.38. The right ankle brachial index by the posterior tibial artery is 1.29. The right digital-brachial index is 1.11. The left ankle brachial index by the dorsalis pedis is 1.67. The left ankle brachial index by the posterior tibial artery is 1.59. The left digital-brachial index is 1.05. VL/Lower Ext Art Exam w/o Exercis Interpretation Summary Triphasic Doppler waveforms are noted at ankle level bilaterally. Pulse-volume recordings appear satisfactory at all levels bilaterally, including low-thigh, calf, ankle, and d igital levels. The resting right ankle-brachial index is normal. The resting left ankle-brachial i ndex is supra-normal. Digital-brachial indices are normal bilaterally. There is evidence of arterial calcification at ankle level on the left. There i s no evidence of significant arterial occlusive disease in the lower extremities bilaterally. Ordering Physician: Ran Molina Referring Physician: Bertrand Warner Performed By: Jie Mistry RVT
[2021-01-01 14:41] VITALS: BP 148/79; PULSE 72; TEMP 36.8; BMI 38.7
[2021-01-09 10:47] VITALS: BP 137/83; PULSE 67; RESP 22; TEMP 36.1; O2SAT 95; BMI 38.7
--- NOTE | 2021-01-09 16:43 | PN.PCM_ITS ---
History of Present Illness Date of Service: 01/09/21 Chief Complaint: Nonhealing bilateral lower extremity ulcers. History of Wound: Mr. Dela Cruz is a 80-year-old who presents to the wound center due to nonhealing bilateral lower extremity ulcers. Had been seen here previously. History of chronic venous insufficiency/venous stasis ulcers. Current ulcerations said to have been noted 2 weeks ago. He admits that he has been more sedentary and attributes this to the ongoing pandemic. At the [facility], he has tried some dressings with no significant improvement. History of diabetes mellitus type 2 which per patient states is well controlled. Follows up with Dr. Warner at the [facility] and states that he had blood work about a month ago with no new concerns. Feels well at this time, denies chills, fever or otherwise feeling of unwell. Subjective Subjective He denies any new concerns at this time. Improving. Objective Data Objective Data Vital Signs: Vital Signs Temp Pulse Resp BP Pulse Ox 97.0 F L 67 22 H 137/83 H 95 01/09/21 10:47 01/09/21 10:47 01/09/21 10:47 01/09/21 10:47 01/09/21 10:47 Oxygen Delivery Method Room Air Body Mass Index (BMI) 38.7 Charges/Coding Procedures Integumentary 111xxx-113xx: 32325 Deja subq tissue 20 sq cm/< Physical Exam Const alert, oriented x3 and no apparent distress General Appearance: cooperative and well developed HEENT normocephalic and hearing grossly normal bilaterally Head and Scalp: normal to inspection Eyes EOMs intact bilaterally General Eye: normal appearance of both eyes Neck full ROM and supple General: normal visual inspection Resp normal respiratory effort Effort and Inspection: able to speak in complete sentences Extremity General Extremity: edema Skin Wounds: wounds noted Neuro oriented x3, CN's II-XII intact bilaterally and moves all extremities Psych mental status grossly normal Appearance: grossly normal Debridement Note Debridement Note Post-Debridement Measurements and Additional Note: Post-Debridement Measurements/Treatment WC - Nurse 1 - General Ulcer Assessment Start: 12/26/20 10:01 Freq: Status: Active Protocol: [email or web address].[email or web address] Activity Type Activity Date Activity User E-Sign Co-Sign Detail Recorded Client Recorded Date Recorded By Document 12/26/20 10:01 [id number] [id number] 12/26/20 10:17 KR Document 01/01/21 14:41 KR [id number] 01/01/21 14:44 KR Document 01/09/21 10:47 MT [id number] 01/09/21 10:55 MT 12/26/20 01/01/21 01/09/21 10:01 14:41 10:47 - Today's Visit Information Type of service Follow-up Visit Nurse-only Follow-up Visit (Physician/[employer]PERATOR Visit (Physician/[employer] OPERATOR ) ) Arrival Mode Ambulatory Wheelchair Ambulatory Accompanied by self Patient Identification Verified (Name & Yes Yes Yes ) Finger Stick Blood Sugar(mg/dl) (if 137 indicated): Blood Sugar Stated by Patient Height and Weight Body Mass Index (BMI) 38.7 38.7 38.7 BMI Classification Obese Obese Obese Vital Signs Temperature (97.8 F-99.1 F) 98.3 F 97.0 F L Temperature Source Temporal Temporal Temporal Pulse Rate (60-100) 72 67 Pulse Location Monitor Monitor Monitor Respiratory Rate (12-18) 22 H Respiratory rate source Observation Pulse Oximetry 95 Oxygen Delivery Method Room Air Blood Pressure (90/60-120/80) 148/79 H 137/83 H Blood Pressure Mean (mm Hg) 102 101 Source Monitor Monitor Monitor Position Semi-Fowlers Semi-Fowlers Sitting Blood Pressure Location Right Arm Right Arm Right Arm History Since Last Visit- (Skip if this is Patient's initial visit) Have you changed medications since your No No No last visit? Any new allergies or adverse reactions No No No Had a fall/change in ADL's that may No No No increase risk of falls Signs or symptoms of abuse and/or No No No neglect since last visit Have you been in the hospital since your No No No last visit? Has dressing in place as prescribed Yes Yes Yes Has compression in place as prescribed Yes Yes Yes Has offloadiing in place as prescribed N/A N/A Yes Experienced any changes in pain level or No No management Left Footwear Regular Shoe Regular Shoe Regular Shoe Right Footwear Regular Shoe Regular Shoe Regular Shoe Pain Scale: 0-10 Numeric Is Patient Pain Free? Yes Yes - Nurse 1 - General Ulcer Measurement Start: 12/26/20 10:01 Freq: Status: Active Protocol: Activity Type Activity Date Activity User E-Sign Co-Sign Detail Recorded Client Recorded Date Recorded By Document 12/26/20 10:01 [id number] 12/26/20 10:17 KR Document 01/01/21 14:41 [id number] 01/01/21 14:44 KR Document 01/09/21 10:47 MN [id number] 01/09/21 10:55 MN 12/26/20 01/01/21 01/09/21 10:01 14:41 10:47 Wound Center Nurse 1 #4 left lower leg -Current Size (cm) - Length 7.2 4.2 -Current Size (cm) - Width 3.1 2 -Current Size (cm) - Depth 0.1 0.1 -Total Square Cm 22.32 8.4 -Exudate Amt Medium Small -Exudate Type Serosanguineous Sanguineous -Wound Margin Distinct, Flat & Intact Outline Attached -Granulation Amt Large (67-100%) Large (67-100%) -Granulation Quality Red Red -Slough/Fibrin No -Necrosis Amt None Present (0 %) -Texture (Alexandra-wound Skin Appearance) Assessed, Assessed Scarring -Moisture (Alexandra-wound Skin Appearance) Assessed,Dry/ Assessed Scaly -Color (Alexandra-wound Skin Appearance) No Abnormality, Assessed Assessed -Temperature (Alexandra-wound Skin No Abnormality No Abnormality Appearance) (Pt Warm) (Pt Warm) -Tenderness on Palpation (Alexandra-wound No No Skin Appearance) -Ulcer Cleansing Rinsed/ Rinsed/ Irrigated with Irrigated with Saline Saline -Foul Odor after Cleansing No No -Anesthetic Used 4% Lidocaine 4% Lidocaine Solution Solution #3 left medial ankle -Current Size (cm) - Length 2.3 1.2 -Current Size (cm) - Width 2.5 1 -Current Size (cm) - Depth 0.1 0.1 -Total Square Cm 5.75 1.2 -Exudate Amt Medium None Present -Exudate Type Serosanguineous Serous -Wound Margin Distinct, Flat & Intact Outline Attached -Granulation Amt Large (67-100%) -Granulation Quality Red -Slough/Fibrin No Yes -Necrosis Amt Large (67-100%) -Texture (Alexandra-wound Skin Appearance) Assessed, Assessed Scarring -Moisture (Alexandra-wound Skin Appearance) Assessed,Dry/ Assessed Scaly -Color (Alexandra-wound Skin Appearance) No Abnormality, Assessed Assessed -Temperature (Alexandra-wound Skin No Abnormality No Abnormality Appearance) (Pt Warm) (Pt Warm) -Tenderness on Palpation (Alexandra-wound No No Skin Appearance) -Ulcer Cleansing Rinsed/ Rinsed/ Irrigated with Irrigated with Saline Saline -Foul Odor after Cleansing No No -Anesthetic Used 4% Lidocaine 4% Lidocaine Solution Solution #2 right lower leg post -Current Size (cm) - Length 1.2 0.1 -Current Size (cm) - Width 1 0.1 -Current Size (cm) - Depth 1 0.1 -Total Square Cm 1.2 0.01 -Exudate Amt Small -Exudate Type Serosanguineous -Wound Margin Distinct, Outline Attached -Granulation Amt None Present (0 %) -Slough/Fibrin No -Necrosis Amt None Present (0 %) -Texture (Alexandra-wound Skin Appearance) Assessed, Assessed, Scarring Localized Edema -Moisture (Alexandra-wound Skin Appearance) Assessed,Dry/ Assessed Scaly -Color (Alexandra-wound Skin Appearance) No Abnormality, Assessed Assessed -Temperature (Alexandra-wound Skin No Abnormality Appearance) (Pt Warm) -Tenderness on Palpation (Alexandra-wound No No Skin Appearance) -Ulcer Cleansing Rinsed/ Rinsed/ Irrigated with Irrigated with Saline Saline -Foul Odor after Cleansing No No -Anesthetic Used 4% Lidocaine 4% Lidocaine Solution Solution Right Calf (cm) 47.1 44.5 42 Right Ankle (cm) 29 26.6 26 Left Calf (cm) 48.2 43.2 41 Left Ankle (cm) 30 26.4 27 WC - Nurse 2 - General Ulcer CM Notes Start: 12/26/20 10:01 Freq: Status: Active Protocol: Activity Type Activity Date Activity User E-Sign Co-Sign Detail Recorded Client Recorded Date Recorded By Document 12/26/20 10:44 MW [id number] 12/26/20 10:55 MW Document 01/09/21 11:02 MW [id number] 01/09/21 11:08 MW 12/26/20 01/09/21 10:44 11:02 Wound Center Nurse 2 #4 left lower leg -Time 10:44 11:03 -Correct Patient Yes Yes -Correct Side, Site, Position Yes Yes -Correct Procedure Yes Yes -Procedure Performed Yes Yes -Type of Procedure Debridement Debridement -Clinical Debridement Subcutaneous Subcutaneous -Tissue Removed Subcutaneous Subcutaneous -Post Debridement (cm) - Length 7.3 3.2 -Post Debridement (cm) - Width 3.0 2.2 -Post Debridement (cm) - Depth 0.1 0.1 -Total Square (Post) (cm) 21.90 7.04 -Area of Debridement (cm) - Length 7.3 3.2 -Area of Debridement (cm) - Width 3.0 2.2 -Total Square (Area) (cm) 21.90 7.04 -Tunneling No No -Undermining/Tunneling No No -Circular Undermining No No -Wound/Ulcer Outcome Not Healed Not Healed -Ulcer Cleansing Rinsed/ Rinsed/ Irrigated with Irrigated with Saline Saline -Foul Odor after Cleansing No No -Bioengineered Tissue No No -Bleeding Controlled with Pressure Pressure -Offloading No No -Treatment Response Procedure Procedure Tolerated Well Tolerated Well -Debridement - Subq, 1st 20sq cm Yes Yes -Debridement, SubQ, ea addt'l 20sq cm 1 or part thereof #3 left medial ankle -Time 10:44 11:04 -Correct Patient Yes Yes -Correct Side, Site, Position Yes Yes -Correct Procedure Yes Yes -Procedure Performed Yes Yes -Type of Procedure Debridement Debridement -Clinical Debridement Subcutaneous Subcutaneous -Tissue Removed Subcutaneous Subcutaneous -Post Debridement (cm) - Length 2.7 1.0 -Post Debridement (cm) - Width 4.0 0.4 -Post Debridement (cm) - Depth 0.1 0.1 -Total Square (Post) (cm) 10.80 0.40 -Area of Debridement (cm) - Length 2.7 1.0 -Area of Debridement (cm) - Width 4.0 0.4 -Total Square (Area) (cm) 10.80 0.40 -Tunneling No No -Undermining/Tunneling No No -Circular Undermining No No -Wound/Ulcer Outcome Not Healed Not Healed -Ulcer Cleansing Rinsed/ Rinsed/ Irrigated with Irrigated with Saline Saline -Foul Odor after Cleansing No No -Bioengineered Tissue No No -Bleeding Controlled with Pressure Pressure -Offloading No No -Treatment Response Procedure Procedure Tolerated Well Tolerated Well -Debridement - Subq, 1st 20sq cm No No #2 right lower leg post -Time 10:45 11:05 -Correct Patient Yes Yes -Correct Side, Site, Position Yes Yes -Correct Procedure Yes Yes -Procedure Performed Yes Yes -Type of Procedure Debridement Debridement -Clinical Debridement Subcutaneous Subcutaneous -Tissue Removed Subcutaneous Subcutaneous -Post Debridement (cm) - Length 1.4 0.1 -Post Debridement (cm) - Width 0.9 0.1 -Post Debridement (cm) - Depth 0.1 0.1 -Total Square (Post) (cm) 1.26 0.01 -Area of Debridement (cm) - Length 1.4 0.1 -Area of Debridement (cm) - Width 0.9 0.1 -Total Square (Area) (cm) 1.26 0.01 -Tunneling No No -Undermining/Tunneling No No -Circular Undermining No No -Wound/Ulcer Outcome Not Healed Not Healed -Ulcer Cleansing Rinsed/ Rinsed/ Irrigated with Irrigated with Saline Saline -Foul Odor after Cleansing No No -Bioengineered Tissue No No -Bleeding Controlled with Pressure Pressure -Offloading No No -Treatment Response Procedure Tolerated Well -Debridement - Subq, 1st 20sq cm No No Pain Scale: 0-10 Numeric Is Patient Pain Free? Yes Yes WC - Nurse 3 - General Ulcer D/C NN Start: 12/26/20 10:01 Freq: Status: Active Protocol: Activity Type Activity Date Activity User E-Sign Co-Sign Detail Recorded Client Recorded Date Recorded By Document 12/26/20 11:00 MT [id number] 12/26/20 11:03 MT Edit Result 12/26/20 11:00 MT (1) [id number] 12/27/20 07:11 PL Document 01/01/21 14:44 KR [id number] 01/01/21 14:45 KR Document 01/09/21 11:22 DL [id number] 01/09/21 11:27 DL (1) Bilateral - Multi-Layered Wrap Application => Multi-Layer Comp - => Bilat ($) Right - Multi-Layered Wrap Application Multi-Layer Comp - => Right ($) => Left - Multi-Layered Wrap Application Multi-Layer Comp - => Left ($) => 12/26/20 01/01/21 01/09/21 11:00 14:44 11:22 Wound Care Nurse 3 #4 left lower leg -Ulcer Cleansing Rinsed/ Irrigated with Saline -Foul Odor after Cleansing No -Primary Dressing Applied Aquacel Extra Aquacel Extra Aquacel Extra -Primary Dressing Covered/Secured with Dry Gauze, Dry Gauze & Secured with Roll Gauze, Tape Secured with Tape -Aquacel Extra 1 1 1 #3 left medial ankle -Ulcer Cleansing Rinsed/ Irrigated with Saline -Foul Odor after Cleansing No -Other Dressing aquacel Ex -Primary Dressing Covered/Secured with Dry Gauze & Roll Gauze, Secured with Tape #2 right lower leg post -Ulcer Cleansing Rinsed/ Irrigated with Saline -Foul Odor after Cleansing No -Other Dressing aquacel Ex -Primary Dressing Covered/Secured with Dry Gauze & Roll Gauze, Secured with Tape Bilateral -Multi-Layered Wrap Application Multi-Layer Multi-Layer Multi-Layer Comp - Bilat ($ Comp - Bilat ($ Comp - Bilat ($ ) ) ) Pain Scale: 0-10 Numeric Is Patient Pain Free? Yes Yes WC - Visit Discharge Discharge Condition Stable Stable Stable Ambulatory Status Walker Wheelchair Ambulatory,Cane Transportation Private Auto Private Auto Private Auto [facility] Medication Reconcilliation completed & No provided to patient/care provider Clinical Summary of Care Provided Yes Wound debrided: Left casillas Type of Debridement: Excisional debridement Anesthesia Used: 4% Lidocaine Solution Depth: Down to and including healthy tissue and in the subcutaneous layer Percentage of wound debrided: 100 Instrument Used: 5mm curette Tissue Removed: Slough and devitalized tissue Severity: Fat Layer Exposed Amount of bleeding with debridement: Mild Bleeding Controlled with: Pressure Patient tolerated procedure: Patient tolerated procedure well Additional Wound Wound debrided: Left medial ankle Type of Debridement: Excisional debridement Anesthesia Used: 4% Lidocaine Solution Depth: Down to and including healthy tissue and in the subcutaneous layer Percentage of wound debrided: 100 Instrument Used: 5mm curette Tissue Removed: Slough and devitalized tissue Severity: Fat Layer Exposed Amount of bleeding with debridement: Mild Bleeding Controlled with: Pressure Patient tolerated procedure: Patient tolerated procedure well Additional Wound Wound debrided: Right lower extremity posterior Type of Debridement: Excisional debridement Anesthesia Used: 4% Lidocaine Solution Depth: Down to and including healthy tissue and in the subcutaneous layer Percentage of wound debrided: 100 Instrument Used: 5mm curette Severity: Fat Layer Exposed Amount of bleeding with debridement: Mild Bleeding Controlled with: Pressure Patient tolerated procedure: Patient tolerated procedure well Assessment/Plan Assessment/Plan (1) Ulcer of right lower extremity with fat layer exposed: CODE(S): Code(s): L97.912 - Non-pressure chronic ulcer of unspecified part of right lower leg with fat layer exposed (2) Ulcer of left lower extremity with fat layer exposed: CODE(S): Code(s): L97.922 - Non-pressure chronic ulcer of unspecified part of left lower leg with fat layer exposed (3) Chronic venous insufficiency: (4) DM2 (diabetes mellitus, type 2): CODE(S): Code(s): E11.9 - Type 2 diabetes mellitus without complications QUALIFIERS: Qualified Code(s): Z79.4 - halfway (current) use of insulin PLAN: Debridement done as documented above, procedure was well-tolerated. Improving ulcers/wounds. Continue Aquacel with Adaptic over top. 3M for edema management. Change on Wednesday by facility nurse. Follow-up with me on . Elevate lower extremities when seated and in bed. Optimal diabetes control and increase protein intake. His questions were answered and he was advised to call with any further questions or concerns. Follow-up in 1 week with me. This note was generated with [employer]oom[employer]ation software. It may contain incorrect words, spelling, and punctuation that were not noted in checking the note before signing.
[2021-01-16 10:02] VITALS: BP 146/76; PULSE 64; RESP 18; TEMP 36.6; O2SAT 94; BMI 38.7
--- NOTE | 2021-01-16 11:52 | PN.PCM_ITS ---
History of Present Illness Date of Service: 01/16/21 Chief Complaint: Nonhealing bilateral lower extremity ulcers. History of Wound: Mr. Dela Cruz is a 80-year-old who presents to the wound center due to nonhealing bilateral lower extremity ulcers. Had been seen here previously. History of chronic venous insufficiency/venous stasis ulcers. Current ulcerations said to have been noted 2 weeks ago. He admits that he has been more sedentary and attributes this to the ongoing pandemic. At the [facility], he has tried some dressings with no significant improvement. History of diabetes mellitus type 2 which per patient states is well controlled. Follows up with Dr. Warner at the [facility] and states that he had blood work about a month ago with no new concerns. Feels well at this time, denies chills, fever or otherwise feeling of unwell. Subjective Subjective He denies any new concerns at this time. Improving. Objective Data Objective Data Vital Signs: Vital Signs Temp Pulse Resp BP Pulse Ox 98 F 64 18 146/76 H 94 01/16/21 10:02 01/16/21 10:02 01/16/21 10:02 01/16/21 10:02 01/16/21 10:02 Oxygen Delivery Method Room Air Body Mass Index (BMI) 38.7 Charges/Coding Procedures Integumentary 111xxx-113xx: [id number] Deja subq tissue 20 sq cm/< Physical Exam Const alert, oriented x3 and no apparent distress General Appearance: cooperative and well developed HEENT normocephalic and hearing grossly normal bilaterally Head and Scalp: normal to inspection Eyes EOMs intact bilaterally General Eye: normal appearance of both eyes Neck full ROM and supple General: normal visual inspection Resp normal respiratory effort Effort and Inspection: able to speak in complete sentences Extremity General Extremity: edema Skin Wounds: wounds noted Neuro oriented x3, CN's II-XII intact bilaterally and moves all extremities Psych mental status grossly normal Appearance: grossly normal Debridement Note Debridement Note Post-Debridement Measurements and Additional Note: Post-Debridement Measurements/Treatment WC - Nurse 1 - General Ulcer Assessment Start: 12/26/20 10:01 Freq: Status: Active Protocol: JOBY Activity Type Activity Date Activity User E-Sign Co-Sign Detail Recorded Client Recorded Date Recorded By Document 12/26/20 10:01 [id number] 12/26/20 10:17 KR Document 01/01/21 14:41 KR [id number] 01/01/21 14:44 KR Document 01/09/21 10:47 MT [id number] 01/09/21 10:55 MT Document 01/16/21 10:02 MT [id number] 01/16/21 10:07 MT 12/26/20 01/01/21 01/09/21 10:01 14:41 10:47 - Today's Visit Information Type of service Follow-up Visit Nurse-only Follow-up Visit (Physician/DATA ANALYST ETL DEVELOPER Visit (Physician/DATA ANALYST ETL DEVELOPER ) ) Arrival Mode Ambulatory Wheelchair Ambulatory Accompanied by self Patient Identification Verified (Name & Yes Yes Yes ) Finger Stick Blood Sugar(mg/dl) (if 137 indicated): Blood Sugar Stated by Patient Height and Weight Body Mass Index (BMI) 38.7 38.7 38.7 BMI Classification Obese Obese Obese Vital Signs Temperature (97.8 F-99.1 F) 98.3 F 97.0 F L Temperature Source Temporal Temporal Temporal Pulse Rate (60-100) 72 67 Pulse Location Monitor Monitor Monitor Respiratory Rate (12-18) 22 H Respiratory rate source Observation Pulse Oximetry 95 Oxygen Delivery Method Room Air Blood Pressure (90/60-120/80) 148/79 H 137/83 H Blood Pressure Mean (mm Hg) 102 101 Source Monitor Monitor Monitor Position Semi-Fowlers Semi-Fowlers Sitting Blood Pressure Location Right Arm Right Arm Right Arm History Since Last Visit- (Skip if this is Patient's initial visit) Have you changed medications since your No No No last visit? Any new allergies or adverse reactions No No No Had a fall/change in ADL's that may No No No increase risk of falls Signs or symptoms of abuse and/or No No No neglect since last visit Have you been in the hospital since your No No No last visit? Has dressing in place as prescribed Yes Yes Yes Has compression in place as prescribed Yes Yes Yes Has offloadiing in place as prescribed N/A N/A Yes Experienced any changes in pain level or No No management Left Footwear Regular Shoe Regular Shoe Regular Shoe Right Footwear Regular Shoe Regular Shoe Regular Shoe Pain Scale: 0-10 Numeric Is Patient Pain Free? Yes Yes 01/16/21 10:02 - Today's Visit Information Type of service Follow-up Visit (Physician/DATA ANALYST ETL DEVELOPER ) Arrival Mode Ambulatory,Cane Accompanied by SELF Patient Identification Verified (Name & Yes ) Finger Stick Blood Sugar(mg/dl) (if 146 indicated): Blood Sugar Stated by Patient Height and Weight Body Mass Index (BMI) 38.7 BMI Classification Obese Vital Signs Temperature (97.8 F-99.1 F) 98 F Temperature Source Temporal Pulse Rate (60-100) 64 Pulse Location Monitor Respiratory Rate (12-18) 18 Respiratory rate source Observation Pulse Oximetry 94 Oxygen Delivery Method Room Air Blood Pressure (90/60-120/80) 146/76 H Blood Pressure Mean (mm Hg) 99 Source Monitor Position Sitting Blood Pressure Location Left Arm History Since Last Visit- (Skip if this is Patient's initial visit) Have you changed medications since your No last visit? Any new allergies or adverse reactions No Had a fall/change in ADL's that may No increase risk of falls Signs or symptoms of abuse and/or No neglect since last visit Have you been in the hospital since your No last visit? Has dressing in place as prescribed Yes Has compression in place as prescribed Yes Has offloadiing in place as prescribed Yes Experienced any changes in pain level or management Left Footwear Surgical Shoe with pressure relief insole Right Footwear Regular Shoe Pain Scale: 0-10 Numeric Is Patient Pain Free? WC - Nurse 1 - General Ulcer Measurement Start: 12/26/20 10:01 Freq: Status: Active Protocol: Activity Type Activity Date Activity User E-Sign Co-Sign Detail Recorded Client Recorded Date Recorded By Document 12/26/20 10:01 [id number] 12/26/20 10:17 Document 01/01/21 14:41 [id number] 01/01/21 14:44 Document 01/09/21 10:47 AK [id number] 01/09/21 10:55 AK Document 01/16/21 10:02 AK [id number] 01/16/21 10:07 AK 12/26/20 01/01/21 01/09/21 10:01 14:41 10:47 Wound Center Nurse 1 #4 left lower leg -Current Size (cm) - Length 7.2 4.2 -Current Size (cm) - Width 3.1 2 -Current Size (cm) - Depth 0.1 0.1 -Total Square Cm 22.32 8.4 -Exudate Amt Medium Small -Exudate Type Serosanguineous Sanguineous -Wound Margin Distinct, Flat & Intact Outline Attached -Granulation Amt Large (67-100%) Large (67-100%) -Granulation Quality Red Red -Slough/Fibrin No -Necrosis Amt None Present (0 %) -Texture (Alexandra-wound Skin Appearance) Assessed, Assessed Scarring -Moisture (Alexandra-wound Skin Appearance) Assessed,Dry/ Assessed Scaly -Color (Alexandra-wound Skin Appearance) No Abnormality, Assessed Assessed -Temperature (Alexandra-wound Skin No Abnormality No Abnormality Appearance) (Pt Warm) (Pt Warm) -Tenderness on Palpation (Alexandra-wound No No Skin Appearance) -Ulcer Cleansing Rinsed/ Rinsed/ Irrigated with Irrigated with Saline Saline -Foul Odor after Cleansing No No -Anesthetic Used 4% Lidocaine 4% Lidocaine Solution Solution #3 left medial ankle -Current Size (cm) - Length 2.3 1.2 -Current Size (cm) - Width 2.5 1 -Current Size (cm) - Depth 0.1 0.1 -Total Square Cm 5.75 1.2 -Exudate Amt Medium None Present -Exudate Type Serosanguineous Serous -Wound Margin Distinct, Flat & Intact Outline Attached -Granulation Amt Large (67-100%) -Granulation Quality Red -Slough/Fibrin No Yes -Necrosis Amt Large (67-100%) -Texture (Alexandra-wound Skin Appearance) Assessed, Assessed Scarring -Moisture (Alexandra-wound Skin Appearance) Assessed,Dry/ Assessed Scaly -Color (Alexandra-wound Skin Appearance) No Abnormality, Assessed Assessed -Temperature (Alexandra-wound Skin No Abnormality No Abnormality Appearance) (Pt Warm) (Pt Warm) -Tenderness on Palpation (Alexandra-wound No No Skin Appearance) -Ulcer Cleansing Rinsed/ Rinsed/ Irrigated with Irrigated with Saline Saline -Foul Odor after Cleansing No No -Anesthetic Used 4% Lidocaine 4% Lidocaine Solution Solution #2 right lower leg post -Current Size (cm) - Length 1.2 0.1 -Current Size (cm) - Width 1 0.1 -Current Size (cm) - Depth 1 0.1 -Total Square Cm 1.2 0.01 -Exudate Amt Small -Exudate Type Serosanguineous -Wound Margin Distinct, Outline Attached -Granulation Amt None Present (0 %) -Slough/Fibrin No -Necrosis Amt None Present (0 %) -Texture (Alexandra-wound Skin Appearance) Assessed, Assessed, Scarring Localized Edema -Moisture (Alexandra-wound Skin Appearance) Assessed,Dry/ Assessed Scaly -Color (Alexandra-wound Skin Appearance) No Abnormality, Assessed Assessed -Temperature (Alexandra-wound Skin No Abnormality Appearance) (Pt Warm) -Tenderness on Palpation (Alexandra-wound No No Skin Appearance) -Ulcer Cleansing Rinsed/ Rinsed/ Irrigated with Irrigated with Saline Saline -Foul Odor after Cleansing No No -Anesthetic Used 4% Lidocaine 4% Lidocaine Solution Solution Right Calf (cm) 47.1 44.5 42 Right Ankle (cm) 29 26.6 26 Left Calf (cm) 48.2 43.2 41 Left Ankle (cm) 30 26.4 27 01/16/21 10:02 Wound Center Nurse 1 #4 left lower leg -Current Size (cm) - Length 3 -Current Size (cm) - Width 1.6 -Current Size (cm) - Depth 0.1 -Total Square Cm 4.8 -Exudate Amt Small -Exudate Type Sanguineous -Wound Margin Flat & Intact -Granulation Amt Large (67-100%) -Granulation Quality Red -Slough/Fibrin No -Necrosis Amt -Texture (Alexandra-wound Skin Appearance) Assessed -Moisture (Alexandra-wound Skin Appearance) Assessed -Color (Alexandra-wound Skin Appearance) Assessed -Temperature (Alexandra-wound Skin No Abnormality Appearance) (Pt Warm) -Tenderness on Palpation (Alexandra-wound No Skin Appearance) -Ulcer Cleansing Wound Cleanser -Foul Odor after Cleansing No -Anesthetic Used 4% Lidocaine Solution #3 left medial ankle -Current Size (cm) - Length 0.1 -Current Size (cm) - Width 0.1 -Current Size (cm) - Depth 0.1 -Total Square Cm 0.01 -Exudate Amt -Exudate Type -Wound Margin Flat & Intact -Granulation Amt -Granulation Quality -Slough/Fibrin -Necrosis Amt -Texture (Alexandra-wound Skin Appearance) Assessed -Moisture (Alexandra-wound Skin Appearance) Assessed -Color (Alexandra-wound Skin Appearance) Assessed -Temperature (Alexandra-wound Skin No Abnormality Appearance) (Pt Warm) -Tenderness on Palpation (Alexandra-wound No Skin Appearance) -Ulcer Cleansing Rinsed/ Irrigated with Saline -Foul Odor after Cleansing No -Anesthetic Used 4% Lidocaine Solution #2 right lower leg post -Current Size (cm) - Length 0.1 -Current Size (cm) - Width 0.1 -Current Size (cm) - Depth 0.1 -Total Square Cm 0.01 -Exudate Amt -Exudate Type -Wound Margin Flat & Intact -Granulation Amt -Slough/Fibrin -Necrosis Amt -Texture (Alexandra-wound Skin Appearance) Assessed -Moisture (Alexandra-wound Skin Appearance) Assessed -Color (Alexandra-wound Skin Appearance) Assessed -Temperature (Alexandra-wound Skin No Abnormality Appearance) (Pt Warm) -Tenderness on Palpation (Alexandra-wound No Skin Appearance) -Ulcer Cleansing Rinsed/ Irrigated with Saline -Foul Odor after Cleansing No -Anesthetic Used 4% Lidocaine Solution Right Calf (cm) 42 Right Ankle (cm) 26 Left Calf (cm) 41 Left Ankle (cm) 27 WC - Nurse 2 - General Ulcer CM Notes Start: 12/26/20 10:01 Freq: Status: Active Protocol: Activity Type Activity Date Activity User E-Sign Co-Sign Detail Recorded Client Recorded Date Recorded By Document 12/26/20 10:44 MW [id number] 12/26/20 10:55 MW Document 01/09/21 11:02 MW [id number] 01/09/21 11:08 MW Document 01/16/21 10:16 MW [id number] 01/16/21 10:25 MW 12/26/20 01/09/21 01/16/21 10:44 11:02 10:16 Wound Center Nurse 2 #4 left lower leg -Time 10:44 11:03 10:18 -Correct Patient Yes Yes Yes -Correct Side, Site, Position Yes Yes Yes -Correct Procedure Yes Yes -Procedure Performed Yes Yes Yes -Type of Procedure Debridement Debridement Debridement -Clinical Debridement Subcutaneous Subcutaneous Subcutaneous -Tissue Removed Subcutaneous Subcutaneous Subcutaneous -Post Debridement (cm) - Length 7.3 3.2 2.1 -Post Debridement (cm) - Width 3.0 2.2 1.4 -Post Debridement (cm) - Depth 0.1 0.1 0.1 -Total Square (Post) (cm) 21.90 7.04 2.94 -Area of Debridement (cm) - Length 7.3 3.2 2.1 -Area of Debridement (cm) - Width 3.0 2.2 1.4 -Total Square (Area) (cm) 21.90 7.04 2.94 -Tunneling No No No -Undermining/Tunneling No No No -Circular Undermining No No No -Wound/Ulcer Outcome Not Healed Not Healed Not Healed -Ulcer Cleansing Rinsed/ Rinsed/ Rinsed/ Irrigated with Irrigated with Irrigated with Saline Saline Saline -Foul Odor after Cleansing No No No -Bioengineered Tissue No No No -Bleeding Controlled with Pressure Pressure Pressure -Offloading No No No -Treatment Response Procedure Procedure Procedure Tolerated Well Tolerated Well Tolerated Well -Debridement - Subq, 1st 20sq cm Yes Yes Yes -Debridement, SubQ, ea addt'l 20sq cm 1 or part thereof #3 left medial ankle -Time 10:44 11:04 10:18 -Correct Patient Yes Yes Yes -Correct Side, Site, Position Yes Yes Yes -Correct Procedure Yes Yes Yes -Procedure Performed Yes Yes Yes -Type of Procedure Debridement Debridement Debridement -Clinical Debridement Subcutaneous Subcutaneous Subcutaneous -Tissue Removed Subcutaneous Subcutaneous Subcutaneous -Post Debridement (cm) - Length 2.7 1.0 0.7 -Post Debridement (cm) - Width 4.0 0.4 0.4 -Post Debridement (cm) - Depth 0.1 0.1 0.1 -Total Square (Post) (cm) 10.80 0.40 0.28 -Area of Debridement (cm) - Length 2.7 1.0 0.7 -Area of Debridement (cm) - Width 4.0 0.4 0.4 -Total Square (Area) (cm) 10.80 0.40 0.28 -Tunneling No No No -Undermining/Tunneling No No No -Circular Undermining No No No -Wound/Ulcer Outcome Not Healed Not Healed Not Healed -Ulcer Cleansing Rinsed/ Rinsed/ Rinsed/ Irrigated with Irrigated with Irrigated with Saline Saline Saline -Foul Odor after Cleansing No No No -Bioengineered Tissue No No No -Bleeding Controlled with Pressure Pressure Pressure -Offloading No No No -Treatment Response Procedure Procedure Procedure Tolerated Well Tolerated Well Tolerated Well -Debridement - Subq, 1st 20sq cm No No No #2 right lower leg post -Time 10:45 11:05 10:18 -Correct Patient Yes Yes Yes -Correct Side, Site, Position Yes Yes Yes -Correct Procedure Yes Yes Yes -Procedure Performed Yes Yes No -Type of Procedure Debridement Debridement -Clinical Debridement Subcutaneous Subcutaneous -Tissue Removed Subcutaneous Subcutaneous -Post Debridement (cm) - Length 1.4 0.1 0 -Post Debridement (cm) - Width 0.9 0.1 0 -Post Debridement (cm) - Depth 0.1 0.1 0 -Total Square (Post) (cm) 1.26 0.01 0 -Area of Debridement (cm) - Length 1.4 0.1 -Area of Debridement (cm) - Width 0.9 0.1 -Total Square (Area) (cm) 1.26 0.01 -Tunneling No No No -Undermining/Tunneling No No No -Circular Undermining No No No -Wound/Ulcer Outcome Not Healed Not Healed Healed- Epithelialized -Ulcer Cleansing Rinsed/ Rinsed/ Rinsed/ Irrigated with Irrigated with Irrigated with Saline Saline Saline -Foul Odor after Cleansing No No -Bioengineered Tissue No No -Bleeding Controlled with Pressure Pressure NA -Offloading No No No -Treatment Response Procedure Procedure Tolerated Well Tolerated Well -Debridement - Subq, 1st 20sq cm No No No Pain Scale: 0-10 Numeric Is Patient Pain Free? Yes Yes Yes WC - Nurse 3 - General Ulcer D/C NN Start: 12/26/20 10:01 Freq: Status: Active Protocol: Activity Type Activity Date Activity User E-Sign Co-Sign Detail Recorded Client Recorded Date Recorded By Document 12/26/20 11:00 MT [id number] 12/26/20 11:03 MT Edit Result 12/26/20 11:00 MT (1) [id number] 12/27/20 07:11 PL Document 01/01/21 14:44 KR [id number] 01/01/21 14:45 KR Document 01/09/21 11:22 DL [id number] 01/09/21 11:27 DL Document 01/16/21 10:42 RB [id number] 01/16/21 10:44 RB (1) Bilateral - Multi-Layered Wrap Application => Multi-Layer Comp - => Bilat ($) Right - Multi-Layered Wrap Application Multi-Layer Comp - => Right ($) => Left - Multi-Layered Wrap Application Multi-Layer Comp - => Left ($) => 12/26/20 01/01/21 01/09/21 11:00 14:44 11:22 Wound Care Nurse 3 #4 left lower leg -Ulcer Cleansing Rinsed/ Irrigated with Saline -Foul Odor after Cleansing No -Primary Dressing Applied Aquacel Extra Aquacel Extra Aquacel Extra -Other Dressing -Primary Dressing Covered/Secured with Dry Gauze, Dry Gauze & Secured with Roll Gauze, Tape Secured with Tape -Aquacel Extra 1 1 1 #3 left medial ankle -Ulcer Cleansing Rinsed/ Irrigated with Saline -Foul Odor after Cleansing No -Other Dressing aquacel Ex -Primary Dressing Covered/Secured with Dry Gauze & Roll Gauze, Secured with Tape #2 right lower leg post -Ulcer Cleansing Rinsed/ Irrigated with Saline -Foul Odor after Cleansing No -Other Dressing aquacel Ex -Primary Dressing Covered/Secured with Dry Gauze & Roll Gauze, Secured with Tape Bilateral -Multi-Layered Wrap Application Multi-Layer Multi-Layer Multi-Layer Comp - Bilat ($ Comp - Bilat ($ Comp - Bilat ($ ) ) ) Treatment Response Pain Scale: 0-10 Numeric Is Patient Pain Free? Yes Yes WC - Visit Discharge Discharge Condition Stable Stable Stable Ambulatory Status Walker Wheelchair Ambulatory,Cane Transportation Private Auto Private Auto Private Auto Accompanied by [facility] transportation Medication Reconcilliation completed & No provided to patient/care provider Clinical Summary of Care Provided Yes 01/16/21 10:42 Wound Care Nurse 3 #4 left lower leg -Ulcer Cleansing Rinsed/ Irrigated with Saline -Foul Odor after Cleansing -Primary Dressing Applied Aquacel Extra -Other Dressing ABD -Primary Dressing Covered/Secured with Dry Gauze -Aquacel Extra 1 #3 left medial ankle -Ulcer Cleansing Rinsed/ Irrigated with Saline -Foul Odor after Cleansing -Other Dressing AQUACEL EXTRA, ABD -Primary Dressing Covered/Secured with #2 right lower leg post -Ulcer Cleansing -Foul Odor after Cleansing -Other Dressing -Primary Dressing Covered/Secured with Dry Gauze Bilateral -Multi-Layered Wrap Application Multi-Layer Comp - Bilat ($ ) Treatment Response Procedure Tolerated Well Pain Scale: 0-10 Numeric Is Patient Pain Free? Yes WC - Visit Discharge Discharge Condition Stable Ambulatory Status Ambulatory,Cane Transportation Private Auto Accompanied by Medication Reconcilliation completed & No provided to patient/care provider Clinical Summary of Care Provided Yes Wound debrided: Left casillas Type of Debridement: Excisional debridement Anesthesia Used: 4% Lidocaine Solution Depth: Down to and including healthy tissue Percentage of wound debrided: 100 Instrument Used: 5mm curette Tissue Removed: Slough and devitalized tissue Severity: Fat Layer Exposed Amount of bleeding with debridement: Mild Bleeding Controlled with: Pressure Patient tolerated procedure: Patient tolerated procedure well Additional Wound Wound debrided: Left lower extremity medial ankle Type of Debridement: Excisional debridement Anesthesia Used: 4% Lidocaine Solution Depth: Down to and including healthy tissue and in the subcutaneous layer Percentage of wound debrided: 100 Instrument Used: 5mm curette Tissue Removed: Slough and devitalized tissue Severity: Fat Layer Exposed Amount of bleeding with debridement: Mild Bleeding Controlled with: Pressure Patient tolerated procedure: Patient tolerated procedure well Assessment/Plan Assessment/Plan (1) Ulcer of right lower extremity with fat layer exposed: CODE(S): L97.912 - Non-pressure chronic ulcer of unspecified part of right lower leg with fat layer exposed (2) Ulcer of left lower extremity with fat layer exposed: CODE(S): L97.922 - Non-pressure chronic ulcer of unspecified part of left lower leg with fat layer exposed (3) Chronic venous insufficiency: (4) DM2 (diabetes mellitus, type 2): CODE(S): E11.9 - Type 2 diabetes mellitus without complications QUALIFIERS: Qualified Code(s): 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 Improving ulcers/wounds. Continue Aquacel with Adaptic over top. 3M for edema management. Change on Wednesday by facility nurse. Follow-up with me on . Elevate lower extremities when seated and in bed. Optimal diabetes control and increase protein intake. His questions were answered and he was advised to call with any further questions or concerns. Follow-up in 1 week with me. This note was generated with [employer] software. It may contain incorrect words, spelling, and punctuation that were not noted in checking the note before signing.
== END 2021-01-20 23:59 ==
LOC: WC 09:45
PROVIDERS: PCP Family Medicine; Referring Provider Internal Medicine; Visit Provider Internal Medicine
DX: L97.912 Non-pressure chronic ulcer of unspecified part of right lower leg with fat layer exposed (principal); L97.922 Non-pressure chronic ulcer of unspecified part of left lower leg with fat layer exposed; E11.9 Type 2 diabetes mellitus without complications; I87.2 Venous insufficiency (chronic) (peripheral); Z79.4 Long term (current) use of insulin
CPT/HCPCS: 11042; 11045; 29581; 93923; 93970

== ENCOUNTER 2021-02-13 11:00 | Outpatient (RCR) | payer MEDICARE, MEDICAID, SELFPAY ==
[2021-01-16 11:58] VITALS: BMI 45.5
[2021-01-21 00:35] VITALS: BP 146/76; PULSE 64; RESP 18; TEMP 36.6; O2SAT 94
[2021-01-23 10:19] VITALS: BP 169/88; PULSE 80; RESP 22; TEMP 36.2; BMI 45.5
--- NOTE | 2021-01-23 17:25 | PN.PCM_ITS ---
History of Present Illness Date of Service: 01/23/21 Chief Complaint: Nonhealing bilateral lower extremity ulcers. History of Wound: Mr. Dela Cruz is a 80-year-old who presents to the wound center due to nonhealing bilateral lower extremity ulcers. Had been seen here previously. History of chronic venous insufficiency/venous stasis ulcers. Current ulcerations said to have been noted 2 weeks ago. He admits that he has been more sedentary and attributes this to the ongoing pandemic. At the [facility], he has tried some dressings with no significant improvement. History of diabetes mellitus type 2 which per patient states is well controlled. Follows up with Dr. Warner at the [facility] and states that he had blood work about a month ago with no new concerns. Feels well at this time, denies chills, fever or otherwise feeling of unwell. Subjective Subjective New right lower extremity ulcers. Denies any known inciting factor. Left casillas with some improvement. Left medial ankle is healed. Objective Data Objective Data Vital Signs: Vital Signs Temp Pulse Resp BP Pulse Ox 97.2 F L 80 22 H 169/88 H 94 01/23/21 10:19 01/23/21 10:19 01/23/21 10:19 01/23/21 10:19 01/21/21 00:35 Body Mass Index (BMI) 45.5 Charges/Coding Procedures Integumentary 111xxx-113xx: [id number] Deja subq tissue 20 sq cm/< Physical Exam Const alert, oriented x3 and no apparent distress General Appearance: cooperative and well developed HEENT normocephalic and hearing grossly normal bilaterally Head and Scalp: normal to inspection Eyes EOMs intact bilaterally General Eye: normal appearance of both eyes Neck full ROM and supple General: normal visual inspection Resp normal respiratory effort Effort and Inspection: able to speak in complete sentences Extremity General Extremity: edema Skin Wounds: wounds noted Neuro oriented x3, CN's II-XII intact bilaterally and moves all extremities Psych mental status grossly normal Appearance: grossly normal Debridement Note Debridement Note Post-Debridement Measurements and Additional Note: Post-Debridement Measurements/Treatment WC - Nurse 1 - General Ulcer Assessment Start: 01/23/21 10:19 Freq: Status: Active Protocol: LUCIO.LOWEXT Activity Type Activity Date Activity User E-Sign Co-Sign Detail Recorded Client Recorded Date Recorded By Document 01/23/21 10:19 MS [id number] 01/23/21 10:38 MI 01/23/21 10:19 - Today's Visit Information Type of service Follow-up Visit (Physician/PRINT SHOP ASSISTANT ) Arrival Mode Ambulatory Transfer Assistance None Patient Identification Verified (Name & Yes ) Patient Requires Transmission-Based No Precautions Safety Precautions NA Height and Weight Body Mass Index (BMI) 45.5 BMI Classification Obese Vital Signs Temperature (97.8 F-99.1 F) 97.2 F L Temperature Source Temporal Pulse Rate (60-100) 80 Pulse Location Monitor Respiratory Rate (12-18) 22 H Respiratory rate source Observation Blood Pressure (90/60-120/80) 169/88 H Blood Pressure Mean (mm Hg) 115 Source Monitor Position Sitting Blood Pressure Location Left Arm History Since Last Visit- (Skip if this is Patient's initial visit) Have you changed medications since your No last visit? Any new allergies or adverse reactions No Had a fall/change in ADL's that may No increase risk of falls Signs or symptoms of abuse and/or No neglect since last visit Have you been in the hospital since your No last visit? Has dressing in place as prescribed Yes Has compression in place as prescribed N/A Has offloadiing in place as prescribed N/A Experienced any changes in pain level or No management Left Footwear Regular Shoe Right Footwear Regular Shoe Pain Scale: 0-10 Numeric Is Patient Pain Free? Yes - Nurse 1 - General Ulcer Measurement Start: 01/23/21 10:19 Freq: Status: Active Protocol: Activity Type Activity Date Activity User E-Sign Co-Sign Detail Recorded Client Recorded Date Recorded By Document 01/23/21 10:19 MI [id number] 01/23/21 10:38 MI 01/23/21 10:19 Wound Center Nurse 1 #4 left lower leg -Current Size (cm) - Length 2 -Current Size (cm) - Width 1.5 -Current Size (cm) - Depth 0.3 -Total Square Cm 3.0 -Exudate Amt Small -Exudate Type Serosanguineous -Wound Margin Distinct, Outline Attached -Granulation Amt Medium (34-66%) -Granulation Quality Red -Slough/Fibrin Yes -Necrosis Amt Medium (34-66%) -Necrotic Tissue Type Adherent Slough -Texture (Alexandra-wound Skin Appearance) No Abnormality -Moisture (Alexandra-wound Skin Appearance) No Abnormality -Color (Alexandra-wound Skin Appearance) No Abnormality -Temperature (Alexandra-wound Skin No Abnormality Appearance) (Pt Warm) -Ulcer Cleansing Wound Cleanser -Foul Odor after Cleansing No -Anesthetic Used 4% Lidocaine Solution #3 left medial ankle -Current Size (cm) - Length 1 -Current Size (cm) - Width 0.8 -Current Size (cm) - Depth 0.1 -Total Square Cm 0.8 -Exudate Amt Small -Exudate Type Serosanguineous -Wound Margin Distinct, Outline Attached -Granulation Amt Medium (34-66%) -Necrosis Amt Medium (34-66%) -Necrotic Tissue Type Adherent Slough -Texture (Alexandra-wound Skin Appearance) No Abnormality -Moisture (Alexandra-wound Skin Appearance) No Abnormality -Color (Alexandra-wound Skin Appearance) No Abnormality -Temperature (Alexandra-wound Skin No Abnormality Appearance) (Pt Warm) -Ulcer Cleansing Wound Cleanser -Anesthetic Used 4% Lidocaine Solution #2 right lower leg post -Current Size (cm) - Length 0.3 -Current Size (cm) - Width 0.3 -Current Size (cm) - Depth 0.1 -Total Square Cm 0.09 -Exudate Amt Small -Exudate Type Serous -Wound Margin Distinct, Outline Attached -Granulation Amt Medium (34-66%) -Granulation Quality [place] -Necrosis Amt Medium (34-66%) -Necrotic Tissue Type Adherent Slough -Texture (Alexandra-wound Skin Appearance) No Abnormality -Moisture (Alexandra-wound Skin Appearance) No Abnormality -Color (Alexandra-wound Skin Appearance) No Abnormality -Temperature (Alexandra-wound Skin No Abnormality Appearance) (Pt Warm) -Ulcer Cleansing Wound Cleanser -Anesthetic Used 4% Lidocaine Solution Right Calf (cm) 34 Right Ankle (cm) 26 Left Calf (cm) 43 Left Ankle (cm) 27 WC - Nurse 2 - General Ulcer CM Notes Start: 01/23/21 10:19 Freq: Status: Active Protocol: Activity Type Activity Date Activity User E-Sign Co-Sign Detail Recorded Client Recorded Date Recorded By Document 01/23/21 10:57 MW [id number] 01/23/21 11:07 MW 01/23/21 10:57 Wound Center Nurse 2 #5 right lateral LE -Time 11:00 -Correct Patient Yes -Correct Side, Site, Position Yes -Correct Procedure Yes -Procedure Performed Yes -Type of Procedure Debridement -Clinical Debridement Subcutaneous -Tissue Removed Subcutaneous -Post Debridement (cm) - Length 6.5 -Post Debridement (cm) - Width 0.5 -Post Debridement (cm) - Depth 0.1 -Total Square (Post) (cm) 3.25 -Area of Debridement (cm) - Length 6.5 -Area of Debridement (cm) - Width 0.5 -Total Square (Area) (cm) 3.25 -Tunneling No -Undermining/Tunneling No -Circular Undermining No -Wound/Ulcer Outcome Not Healed -Ulcer Cleansing Rinsed/ Irrigated with Saline -Foul Odor after Cleansing No -Bioengineered Tissue No -Bleeding Controlled with Pressure -Offloading No -Treatment Response Procedure Tolerated Well -Debridement - Subq, 1st 20sq cm No #4 left lower leg -Time 10:57 -Correct Patient Yes -Correct Side, Site, Position Yes -Correct Procedure Yes -Procedure Performed Yes -Type of Procedure Debridement -Clinical Debridement Subcutaneous -Tissue Removed Subcutaneous -Post Debridement (cm) - Length 2.1 -Post Debridement (cm) - Width 1.6 -Post Debridement (cm) - Depth 0.1 -Total Square (Post) (cm) 3.36 -Area of Debridement (cm) - Length 2.1 -Area of Debridement (cm) - Width 1.6 -Total Square (Area) (cm) 3.36 -Tunneling No -Undermining/Tunneling No -Circular Undermining No -Wound/Ulcer Outcome Not Healed -Ulcer Cleansing Rinsed/ Irrigated with Saline -Foul Odor after Cleansing No -Bioengineered Tissue No -Bleeding Controlled with Pressure -Offloading No -Treatment Response Procedure Tolerated Well -Debridement - Subq, 1st 20sq cm Yes #3 left medial ankle -Time 10:58 -Correct Patient Yes -Correct Side, Site, Position Yes -Correct Procedure Yes -Procedure Performed No -Post Debridement (cm) - Length 0.1 -Post Debridement (cm) - Width 0.1 -Post Debridement (cm) - Depth 0.1 -Total Square (Post) (cm) 0.01 -Tunneling No -Undermining/Tunneling No -Circular Undermining No -Wound/Ulcer Outcome Healed- Epithelialized #2 right lower leg post -Procedure Performed No Pain Scale: 0-10 Numeric Is Patient Pain Free? Yes Wound debrided: Left casillas Type of Debridement: Excisional debridement Anesthesia Used: 4% Lidocaine Solution Depth: Down to and including healthy tissue and in the subcutaneous layer Percentage of wound debrided: 100 Instrument Used: 5mm curette Tissue Removed: Slough and devitalized tissue Severity: Fat Layer Exposed Amount of bleeding with debridement: Mild Patient tolerated procedure: Patient tolerated procedure well Additional Wound Wound debrided: Right lower extremity cluster Type of Debridement: Excisional debridement Anesthesia Used: 4% Lidocaine Solution Depth: Down to and including healthy tissue and in the subcutaneous layer Percentage of wound debrided: 100 Instrument Used: 5mm curette Tissue Removed: Slough and devitalized tissue Severity: Fat Layer Exposed Amount of bleeding with debridement: Mild Bleeding Controlled with: Pressure Patient tolerated procedure: Patient tolerated procedure well Assessment/Plan Assessment/Plan (1) Ulcer of right lower extremity with fat layer exposed: CODE(S): L97.912 - Non-pressure chronic ulcer of unspecified part of right lower leg with fat layer exposed (2) Ulcer of left lower extremity with fat layer exposed: CODE(S): L97.922 - Non-pressure chronic ulcer of unspecified part of left lower leg with fat layer exposed (3) Chronic venous insufficiency: (4) DM2 (diabetes mellitus, type 2): CODE(S): E11.9 - Type 2 diabetes mellitus without complications QUALIFIERS: Qualified Code(s): Z79.4 - alf (current) use of insulin PLAN: Debridement done as documented above, procedure was well-tolerated. Left casillas with some improvement. Left ankle ulcer is healed. New right lower extremity ulcers, previous ulceration is healed. Switch to Promogran with Adaptic over top. 3M for edema management. Change on Wednesday by facility nurse. Follow-up with me on . Elevate lower extremities when seated and in bed. Optimal diabetes control and increase protein intake. His questions were answered and he was advised to call with any further questions or concerns. Follow-up in 1 week with me. This note was generated with [employer] software. It may contain incorrect words, spelling, and punctuation that were not noted in checking the note before signing.
[2021-01-30 11:18] VITALS: BP 127/62; PULSE 63; TEMP 36.4; BMI 45.5
--- NOTE | 2021-01-30 13:00 | PCM.WC.PN ---
History of Present Illness Date of Service: 01/30/21 Chief Complaint: Nonhealing bilateral lower extremity ulcers. History of Wound: Mr. Dela Cruz is a 80-year-old who presents to the wound center due to nonhealing bilateral lower extremity ulcers. Had been seen here previously. History of chronic venous insufficiency/venous stasis ulcers. Current ulcerations said to have been noted 2 weeks ago. He admits that he has been more sedentary and attributes this to the ongoing pandemic. At the facility, he has tried some dressings with no significant improvement. History of diabetes mellitus type 2 which per patient states is well controlled. Follows up with Dr. Warner at the [facility] and states that he had blood work about a month ago with no new concerns. Feels well at this time, denies chills, fever or otherwise feeling of unwell. Subjective Subjective No new concerns at this time. Improving ulcers. Objective Data Objective Data Vital Signs: Vital Signs Temp Pulse Resp BP Pulse Ox 97.6 F L 63 22 H 127/62 H 94 01/30/21 11:18 01/30/21 11:18 01/23/21 10:19 01/30/21 11:18 01/21/21 00:35 Body Mass Index (BMI) 45.5 Charges/Coding Procedures Integumentary 111xxx-113xx: [id number] Deja subq tissue 20 sq cm/< Physical Exam Const alert, oriented x3 and no apparent distress General Appearance: cooperative and well developed HEENT normocephalic and hearing grossly normal bilaterally Head and Scalp: normal to inspection Eyes EOMs intact bilaterally General Eye: normal appearance of both eyes Neck full ROM and supple General: normal visual inspection Resp normal respiratory effort Effort and Inspection: able to speak in complete sentences Extremity General Extremity: edema Skin Wounds: wounds noted Neuro oriented x3, CN's II-XII intact bilaterally and moves all extremities Psych mental status grossly normal Appearance: grossly normal Debridement Note Debridement Note Post-Debridement Measurements and Additional Note: Post-Debridement Measurements/Treatment WC - Nurse 1 - General Ulcer Assessment Start: 01/23/21 10:19 Freq: Status: Active Protocol: LUCIO.LOWEXT Activity Type Activity Date Activity User E-Sign Co-Sign Detail Recorded Client Recorded Date Recorded By Document 01/23/21 10:19 MS [id number] 01/23/21 10:38 MS Document 01/30/21 11:18 KR [id number] 01/30/21 11:20 KR 01/23/21 01/30/21 10:19 11:18 - Today's Visit Information Type of service Follow-up Visit Follow-up Visit (Physician/SOCIAL SCIENCES LECTURER (Physician/SOCIAL SCIENCES LECTURER ) ) Arrival Mode Ambulatory Ambulatory,Cane Transfer Assistance None Patient Identification Verified (Name & Yes Yes ) Patient Requires Transmission-Based No Precautions Safety Precautions NA Height and Weight Body Mass Index (BMI) 45.5 45.5 BMI Classification Obese Obese Vital Signs Temperature (97.8 F-99.1 F) 97.2 F L 97.6 F L Temperature Source Temporal Temporal Pulse Rate (60-100) 80 63 Pulse Location Monitor Monitor Respiratory Rate (12-18) 22 H Respiratory rate source Observation Blood Pressure (90/60-120/80) 169/88 H 127/62 H Blood Pressure Mean (mm Hg) 115 83 Source Monitor Monitor Position Sitting Semi-Fowlers Blood Pressure Location Left Arm Left Arm History Since Last Visit- (Skip if this is Patient's initial visit) Have you changed medications since your No No last visit? Any new allergies or adverse reactions No No Had a fall/change in ADL's that may No No increase risk of falls Signs or symptoms of abuse and/or No No neglect since last visit Have you been in the hospital since your No No last visit? Has dressing in place as prescribed Yes Yes Has compression in place as prescribed N/A N/A Has offloadiing in place as prescribed N/A N/A Experienced any changes in pain level or No No management Left Footwear Regular Shoe Regular Shoe Right Footwear Regular Shoe Regular Shoe Pain Scale: 0-10 Numeric Is Patient Pain Free? Yes Yes - Nurse 1 - General Ulcer Measurement Start: 01/23/21 10:19 Freq: Status: Active Protocol: Activity Type Activity Date Activity User E-Sign Co-Sign Detail Recorded Client Recorded Date Recorded By Document 01/23/21 10:19 MS [id number] 01/23/21 10:38 MS Document 01/30/21 11:18 KR [id number] 01/30/21 11:20 KR 01/23/21 01/30/21 10:19 11:18 Wound Center Nurse 1 #4 left lower leg -Current Size (cm) - Length 2 2.1 -Current Size (cm) - Width 1.5 1.8 -Current Size (cm) - Depth 0.3 0.1 -Total Square Cm 3.0 3.78 -Exudate Amt Small Small -Exudate Type Serosanguineous Serosanguineous -Wound Margin Distinct, Distinct, Outline Outline Attached Attached -Granulation Amt Medium (34-66%) Medium (34-66%) -Granulation Quality Red Red -Slough/Fibrin Yes -Necrosis Amt Medium (34-66%) None Present (0 %) -Necrotic Tissue Type Adherent Slough -Texture (Alexandra-wound Skin Appearance) No Abnormality Assessed, Scarring -Moisture (Alexandra-wound Skin Appearance) No Abnormality No Abnormality, Assessed -Color (Alexandra-wound Skin Appearance) No Abnormality No Abnormality, Assessed -Temperature (Alexandra-wound Skin No Abnormality No Abnormality Appearance) (Pt Warm) (Pt Warm) -Tenderness on Palpation (Alexandra-wound No Skin Appearance) -Ulcer Cleansing Wound Cleanser Rinsed/ Irrigated with Saline -Foul Odor after Cleansing No No -Anesthetic Used 4% Lidocaine 4% Lidocaine Solution Solution #3 left medial ankle -Current Size (cm) - Length 1 -Current Size (cm) - Width 0.8 -Current Size (cm) - Depth 0.1 -Total Square Cm 0.8 -Exudate Amt Small -Exudate Type Serosanguineous -Wound Margin Distinct, Outline Attached -Granulation Amt Medium (34-66%) -Necrosis Amt Medium (34-66%) -Necrotic Tissue Type Adherent Slough -Texture (Alexandra-wound Skin Appearance) No Abnormality -Moisture (Alexandra-wound Skin Appearance) No Abnormality -Color (Alexandra-wound Skin Appearance) No Abnormality -Temperature (Alexandra-wound Skin No Abnormality Appearance) (Pt Warm) -Ulcer Cleansing Wound Cleanser -Anesthetic Used 4% Lidocaine Solution #2 right lower leg post -Current Size (cm) - Length 0.3 -Current Size (cm) - Width 0.3 -Current Size (cm) - Depth 0.1 -Total Square Cm 0.09 -Exudate Amt Small -Exudate Type Serous -Wound Margin Distinct, Outline Attached -Granulation Amt Medium (34-66%) -Granulation Quality [place] -Necrosis Amt Medium (34-66%) -Necrotic Tissue Type Adherent Slough -Texture (Alexandra-wound Skin Appearance) No Abnormality -Moisture (Alexandra-wound Skin Appearance) No Abnormality -Color (Alexandra-wound Skin Appearance) No Abnormality -Temperature (Alexandra-wound Skin No Abnormality Appearance) (Pt Warm) -Ulcer Cleansing Wound Cleanser -Anesthetic Used 4% Lidocaine Solution Right Calf (cm) 34 44 Right Ankle (cm) 26 27 Left Calf (cm) 43 44.5 Left Ankle (cm) 27 27.6 WC - Nurse 2 - General Ulcer CM Notes Start: 01/23/21 10:19 Freq: Status: Active Protocol: Activity Type Activity Date Activity User E-Sign Co-Sign Detail Recorded Client Recorded Date Recorded By Document 01/23/21 10:57 MW [id number] 01/23/21 11:07 MW Document 01/30/21 11:40 MW [id number] 01/30/21 11:41 MW 01/23/21 01/30/21 10:57 11:40 Wound Center Nurse 2 #5 right lateral LE -Time 11:00 11:40 -Correct Patient Yes Yes -Correct Side, Site, Position Yes Yes -Correct Procedure Yes Yes -Procedure Performed Yes Yes -Type of Procedure Debridement Debridement -Clinical Debridement Subcutaneous Subcutaneous -Tissue Removed Subcutaneous Subcutaneous -Post Debridement (cm) - Length 6.5 0.7 -Post Debridement (cm) - Width 0.5 0.5 -Post Debridement (cm) - Depth 0.1 0.1 -Total Square (Post) (cm) 3.25 0.35 -Area of Debridement (cm) - Length 6.5 0.7 -Area of Debridement (cm) - Width 0.5 0.5 -Total Square (Area) (cm) 3.25 0.35 -Tunneling No No -Undermining/Tunneling No No -Circular Undermining No No -Wound/Ulcer Outcome Not Healed Not Healed -Ulcer Cleansing Rinsed/ Rinsed/ Irrigated with Irrigated with Saline Saline -Foul Odor after Cleansing No No -Bioengineered Tissue No No -Bleeding Controlled with Pressure Pressure -Offloading No No -Treatment Response Procedure Procedure Tolerated Well Tolerated Well -Debridement - Subq, 1st 20sq cm No Yes #4 left lower leg -Time 10:57 11:40 -Correct Patient Yes Yes -Correct Side, Site, Position Yes Yes -Correct Procedure Yes Yes -Procedure Performed Yes Yes -Type of Procedure Debridement Debridement -Clinical Debridement Subcutaneous Subcutaneous -Tissue Removed Subcutaneous Subcutaneous -Post Debridement (cm) - Length 2.1 1.9 -Post Debridement (cm) - Width 1.6 1.1 -Post Debridement (cm) - Depth 0.1 0.1 -Total Square (Post) (cm) 3.36 2.09 -Area of Debridement (cm) - Length 2.1 1.9 -Area of Debridement (cm) - Width 1.6 0.1 -Total Square (Area) (cm) 3.36 0.19 -Tunneling No No -Undermining/Tunneling No No -Circular Undermining No No -Wound/Ulcer Outcome Not Healed Not Healed -Ulcer Cleansing Rinsed/ Rinsed/ Irrigated with Irrigated with Saline Saline -Foul Odor after Cleansing No No -Bioengineered Tissue No No -Bleeding Controlled with Pressure Pressure -Offloading No No -Treatment Response Procedure Procedure Tolerated Well Tolerated Well -Debridement - Subq, 1st 20sq cm Yes No #3 left medial ankle -Time 10:58 -Correct Patient Yes -Correct Side, Site, Position Yes -Correct Procedure Yes -Procedure Performed No -Post Debridement (cm) - Length 0.1 -Post Debridement (cm) - Width 0.1 -Post Debridement (cm) - Depth 0.1 -Total Square (Post) (cm) 0.01 -Tunneling No -Undermining/Tunneling No -Circular Undermining No -Wound/Ulcer Outcome Healed- Epithelialized #2 right lower leg post -Procedure Performed No Pain Scale: 0-10 Numeric Is Patient Pain Free? Yes Yes - Nurse 3 - General Ulcer D/C NN Start: 01/23/21 10:19 Freq: Status: Active Protocol: Activity Type Activity Date Activity User E-Sign Co-Sign Detail Recorded Client Recorded Date Recorded By Document 01/30/21 12:01 SHUN [id number] 01/30/21 12:03 SHUN 01/30/21 12:01 Wound Care Nurse 3 #5 right lateral LE -Ulcer Cleansing Rinsed/ Irrigated with Saline -Foul Odor after Cleansing No -Primary Dressing Applied NonAdherent Contact Layer, Promogran -Primary Dressing Covered/Secured with Dry Gauze, Secured with Tape -Promogran 1 #4 left lower leg -Ulcer Cleansing Rinsed/ Irrigated with Saline -Foul Odor after Cleansing No -Primary Dressing Applied NonAdherent Contact Layer -Other Dressing promogran -Primary Dressing Covered/Secured with Dry Gauze Right -Multi-Layered Wrap Application Multi-Layer Comp - Bilat ($ ) Treatment Response Procedure Tolerated Well Pain Scale: 0-10 Numeric Is Patient Pain Free? Yes WC - Visit Discharge Discharge Condition Stable Ambulatory Status Ambulatory Facility Type Heat Treat Worker Care Facility Orders Sent Yes Wound debrided: Left casillas Type of Debridement: Excisional debridement Anesthesia Used: 4% Lidocaine Solution Depth: Down to and including healthy tissue and in the subcutaneous layer Percentage of wound debrided: 100 Instrument Used: 5mm curette Tissue Removed: Slough and devitalized tissue Severity: Fat Layer Exposed Amount of bleeding with debridement: Mild Bleeding Controlled with: Pressure Patient tolerated procedure: Patient tolerated procedure well Additional Wound Wound debrided: Right lower extremity lateral Type of Debridement: Excisional debridement Anesthesia Used: 4% Lidocaine Solution Depth: Down to and including healthy tissue and in the subcutaneous layer Percentage of wound debrided: 100 Instrument Used: 5mm curette Tissue Removed: Slough and devitalized tissue Severity: Fat Layer Exposed Amount of bleeding with debridement: Mild Bleeding Controlled with: Pressure Patient tolerated procedure: Patient tolerated procedure well Assessment/Plan Assessment/Plan (1) Ulcer of right lower extremity with fat layer exposed: CODE(S): L97.912 - Non-pressure chronic ulcer of unspecified part of right lower leg with fat layer exposed (2) Ulcer of left lower extremity with fat layer exposed: CODE(S): L97.922 - Non-pressure chronic ulcer of unspecified part of left lower leg with fat layer exposed (3) Chronic venous insufficiency: (4) DM2 (diabetes mellitus, type 2): CODE(S): E11.9 - Type 2 diabetes mellitus without complications QUALIFIERS: Qualified Code(s): Z79.4 - alf (current) use of insulin PLAN: Debridement done as documented above, procedure was well-tolerated. Improving. No new concerns. Continue Promogran with Adaptic over top. 3M for edema management. Change on Wednesday by facility nurse. Follow-up with me on . Elevate lower extremities when seated and in bed. Optimal diabetes control and increase protein intake. His questions were answered and he was advised to call with any further questions or concerns. Follow-up in 1 week with me. This note was generated with [employer] software. It may contain incorrect words, spelling, and punctuation that were not noted in checking the note before signing.
[2021-02-06 10:20] VITALS: BP 148/83; PULSE 89; RESP 24; TEMP 36.9; BMI 45.5
--- NOTE | 2021-02-06 12:52 | PN.PCM_ITS ---
History of Present Illness Date of Service: 02/06/21 Chief Complaint: Nonhealing bilateral lower extremity ulcers. History of Wound: Mr. Dela Cruz is a 80-year-old who presents to the wound center due to nonhealing bilateral lower extremity ulcers. Had been seen here previously. History of chronic venous insufficiency/venous stasis ulcers. Current ulcerations said to have been noted 2 weeks ago. He admits that he has been more sedentary and attributes this to the ongoing pandemic. At the [facility], he has tried some dressings with no significant improvement. History of diabetes mellitus type 2 which per patient states is well controlled. Follows up with Dr. Warner at the [facility] and states that he had blood work about a month ago with no new concerns. Feels well at this time, denies chills, fever or otherwise feeling of unwell. Subjective Subjective New left lateral ulcer. No known precipitating factor. Prior ulcer improving. Objective Data Objective Data Vital Signs: Vital Signs Temp Pulse Resp BP Pulse Ox 98.5 F 89 24 H 148/83 H 94 02/06/21 10:20 02/06/21 10:20 02/06/21 10:20 02/06/21 10:20 01/21/21 00:35 Body Mass Index (BMI) 45.5 Charges/Coding Procedures Integumentary [id number]: [id number] Deja subq tissue 20 sq cm/< Physical Exam Const alert, oriented x3 and no apparent distress General Appearance: cooperative and well developed HEENT normocephalic and hearing grossly normal bilaterally Head and Scalp: normal to inspection Eyes EOMs intact bilaterally General Eye: normal appearance of both eyes Neck full ROM and supple General: normal visual inspection Resp normal respiratory effort Effort and Inspection: able to speak in complete sentences Extremity General Extremity: edema Skin Wounds: wounds noted Neuro oriented x3, CN's II-XII intact bilaterally and moves all extremities Psych mental status grossly normal Appearance: grossly normal Debridement Note Debridement Note Post-Debridement Measurements and Additional Note: Post-Debridement Measurements/Treatment WC - Nurse 1 - General Ulcer Assessment Start: 01/23/21 10:19 Freq: Status: Active Protocol: JOBY Activity Type Activity Date Activity User E-Sign Co-Sign Detail Recorded Client Recorded Date Recorded By Document 01/23/21 10:19 MS [id number] 01/23/21 10:38 MS Document 01/30/21 11:18 KR [id number] 01/30/21 11:20 KR Document 02/06/21 10:20 DL [id number] 02/06/21 10:33 DL 01/23/21 01/30/21 02/06/21 10:19 11:18 10:20 - Today's Visit Information Type of service Follow-up Visit Follow-up Visit Follow-up Visit (Physician/JEWELRY ENGRAVER (Physician/JEWELRY ENGRAVER (Physician/JEWELRY ENGRAVER ) ) ) Arrival Mode Ambulatory Ambulatory,Cane Ambulatory,Cane Transfer Assistance None None Patient Identification Verified (Name & Yes Yes ) Patient Requires Transmission-Based No Precautions Safety Precautions NA Finger Stick Blood Sugar(mg/dl) (if didnt check indicated): Blood Sugar Stated by Patient Height and Weight Body Mass Index (BMI) 45.5 45.5 45.5 BMI Classification Obese Obese Obese Vital Signs Temperature (97.8 F-99.1 F) 97.2 F L 97.6 F L 98.5 F Temperature Source Temporal Temporal Temporal Pulse Rate (60-100) 80 63 89 Pulse Location Monitor Monitor Monitor Respiratory Rate (12-18) 22 H 24 H Respiratory rate source Observation Observation Blood Pressure (90/60-120/80) 169/88 H 127/62 H 148/83 H Blood Pressure Mean (mm Hg) 115 83 104 Source Monitor Monitor Monitor Position Sitting Semi-Fowlers Blood Pressure Location Left Arm Left Arm History Since Last Visit- (Skip if this is Patient's initial visit) Have you changed medications since your No No No last visit? Any new allergies or adverse reactions No No No Had a fall/change in ADL's that may No No No increase risk of falls Signs or symptoms of abuse and/or No No No neglect since last visit Have you been in the hospital since your No No No last visit? Has dressing in place as prescribed Yes Yes Yes Has compression in place as prescribed N/A N/A Has offloadiing in place as prescribed N/A N/A N/A Experienced any changes in pain level or No No No management Left Footwear Regular Shoe Regular Shoe Regular Shoe Right Footwear Regular Shoe Regular Shoe Regular Shoe Pain Scale: 0-10 Numeric Is Patient Pain Free? Yes Yes Yes - Nurse 1 - General Ulcer Measurement Start: 01/23/21 10:19 Freq: Status: Active Protocol: Activity Type Activity Date Activity User E-Sign Co-Sign Detail Recorded Client Recorded Date Recorded By Document 01/23/21 10:19 MS [id number] 01/23/21 10:38 MS Document 01/30/21 11:18 KR [id number] 01/30/21 11:20 KR Document 02/06/21 10:20 DL [id number] 02/06/21 10:33 DL 01/23/21 01/30/21 02/06/21 10:19 11:18 10:20 Wound Center Nurse 1 #5 right lateral LE -Current Size (cm) - Length 0 -Current Size (cm) - Width 0 -Current Size (cm) - Depth 0 -Total Square Cm 0 -Photo Taken Yes -Exudate Amt None Present -Wound Margin Flat & Intact -Granulation Amt Large (67-100%) -Granulation Quality Lawler -Necrosis Amt None Present (0 %) -Structure Exposed N/A -Texture (Alexandra-wound Skin Appearance) Scarring -Moisture (Alexandra-wound Skin Appearance) Dry/Scaly -Color (Alexandra-wound Skin Appearance) Hemosiderin Staining -Temperature (Alexandra-wound Skin No Abnormality Appearance) (Pt Warm) -Tenderness on Palpation (Alexandra-wound No Skin Appearance) -Foul Odor after Cleansing No #4 left lower leg -Current Size (cm) - Length 2 2.1 1.6 -Current Size (cm) - Width 1.5 1.8 5 -Current Size (cm) - Depth 0.3 0.1 0.1 -Total Square Cm 3.0 3.78 8.0 -Photo Taken No -Exudate Amt Small Small Small -Exudate Type Serosanguineous Serosanguineous -Wound Margin Distinct, Distinct, Distinct, Outline Outline Outline Attached Attached Attached -Granulation Amt Medium (34-66%) Medium (34-66%) Large (67-100%) -Granulation Quality Red Red Red -Slough/Fibrin Yes -Necrosis Amt Medium (34-66%) None Present (0 Small (1-33%) %) -Necrotic Tissue Type Adherent Slough Adherent Slough -Structure Exposed N/A -Texture (Alexandra-wound Skin Appearance) No Abnormality Assessed, Scarring Scarring -Moisture (Alexandra-wound Skin Appearance) No Abnormality No Abnormality, Dry/Scaly Assessed -Color (Alexandra-wound Skin Appearance) No Abnormality No Abnormality, Hemosiderin Assessed Staining -Temperature (Alexandra-wound Skin No Abnormality No Abnormality No Abnormality Appearance) (Pt Warm) (Pt Warm) (Pt Warm) -Tenderness on Palpation (Alexandra-wound No No Skin Appearance) -Ulcer Cleansing Wound Cleanser Rinsed/ Wound Cleanser Irrigated with Saline -Foul Odor after Cleansing No No No -Anesthetic Used 4% Lidocaine 4% Lidocaine 4% Lidocaine Solution Solution Solution #3 left medial ankle -Current Size (cm) - Length 1 -Current Size (cm) - Width 0.8 -Current Size (cm) - Depth 0.1 -Total Square Cm 0.8 -Exudate Amt Small -Exudate Type Serosanguineous -Wound Margin Distinct, Outline Attached -Granulation Amt Medium (34-66%) -Necrosis Amt Medium (34-66%) -Necrotic Tissue Type Adherent Slough -Texture (Alexandra-wound Skin Appearance) No Abnormality -Moisture (Alexandra-wound Skin Appearance) No Abnormality -Color (Alexandra-wound Skin Appearance) No Abnormality -Temperature (Alexandra-wound Skin No Abnormality Appearance) (Pt Warm) -Ulcer Cleansing Wound Cleanser -Anesthetic Used 4% Lidocaine Solution #2 right lower leg post -Current Size (cm) - Length 0.3 -Current Size (cm) - Width 0.3 -Current Size (cm) - Depth 0.1 -Total Square Cm 0.09 -Exudate Amt Small -Exudate Type Serous -Wound Margin Distinct, Outline Attached -Granulation Amt Medium (34-66%) -Granulation Quality Lawler -Necrosis Amt Medium (34-66%) -Necrotic Tissue Type Adherent Slough -Texture (Alexandra-wound Skin Appearance) No Abnormality -Moisture (Alexandra-wound Skin Appearance) No Abnormality -Color (Alexandra-wound Skin Appearance) No Abnormality -Temperature (Alexandra-wound Skin No Abnormality Appearance) (Pt Warm) -Ulcer Cleansing Wound Cleanser -Anesthetic Used 4% Lidocaine Solution Right Calf (cm) 34 44 40.6 Right Ankle (cm) 26 27 25.1 Left Calf (cm) 43 44.5 40.5 Left Ankle (cm) 27 27.6 25 WC - Nurse 2 - General Ulcer CM Notes Start: 01/23/21 10:19 Freq: Status: Active Protocol: Activity Type Activity Date Activity User E-Sign Co-Sign Detail Recorded Client Recorded Date Recorded By Document 01/23/21 10:57 MW [id number] 01/23/21 11:07 MW Document 01/30/21 11:40 MW [id number] 01/30/21 11:41 MW Document 02/06/21 10:54 MW [id number] 02/06/21 10:57 MW 01/23/21 01/30/21 02/06/21 10:57 11:40 10:54 Wound Center Nurse 2 #6 left lateral casillas -Time 10:57 -Correct Patient Yes -Correct Side, Site, Position Yes -Correct Procedure Yes -Procedure Performed Yes -Type of Procedure Debridement -Clinical Debridement Subcutaneous -Tissue Removed Subcutaneous -Post Debridement (cm) - Length 1.1 -Post Debridement (cm) - Width 0.8 -Post Debridement (cm) - Depth 0.1 -Total Square (Post) (cm) 0.88 -Area of Debridement (cm) - Length 1.1 -Area of Debridement (cm) - Width 0.8 -Total Square (Area) (cm) 0.88 -Tunneling No -Undermining/Tunneling No -Circular Undermining No -Wound/Ulcer Outcome Not Healed -Ulcer Cleansing Rinsed/ Irrigated with Saline -Foul Odor after Cleansing No -Bioengineered Tissue No -Bleeding Controlled with Pressure -Offloading No -Treatment Response Procedure Tolerated Well -Debridement - Subq, 1st 20sq cm No #5 right lateral LE -Time 11:00 11:40 10:54 -Correct Patient Yes Yes Yes -Correct Side, Site, Position Yes Yes Yes -Correct Procedure Yes Yes Yes -Procedure Performed Yes Yes -Type of Procedure Debridement Debridement -Clinical Debridement Subcutaneous Subcutaneous -Tissue Removed Subcutaneous Subcutaneous -Post Debridement (cm) - Length 6.5 0.7 0 -Post Debridement (cm) - Width 0.5 0.5 0 -Post Debridement (cm) - Depth 0.1 0.1 0 -Total Square (Post) (cm) 3.25 0.35 0 -Area of Debridement (cm) - Length 6.5 0.7 -Area of Debridement (cm) - Width 0.5 0.5 -Total Square (Area) (cm) 3.25 0.35 -Tunneling No No -Undermining/Tunneling No No -Circular Undermining No No -Wound/Ulcer Outcome Not Healed Not Healed Healed- Epithelialized -Ulcer Cleansing Rinsed/ Rinsed/ Irrigated with Irrigated with Saline Saline -Foul Odor after Cleansing No No -Bioengineered Tissue No No -Bleeding Controlled with Pressure Pressure -Offloading No No -Treatment Response Procedure Procedure Tolerated Well Tolerated Well -Debridement - Subq, 1st 20sq cm No Yes #4 left lower leg -Time 10:57 11:40 10:56 -Correct Patient Yes Yes Yes -Correct Side, Site, Position Yes Yes Yes -Correct Procedure Yes Yes Yes -Procedure Performed Yes Yes Yes -Type of Procedure Debridement Debridement Debridement -Clinical Debridement Subcutaneous Subcutaneous Subcutaneous -Tissue Removed Subcutaneous Subcutaneous Subcutaneous -Post Debridement (cm) - Length 2.1 1.9 1.5 -Post Debridement (cm) - Width 1.6 1.1 0.7 -Post Debridement (cm) - Depth 0.1 0.1 0.1 -Total Square (Post) (cm) 3.36 2.09 1.05 -Area of Debridement (cm) - Length 2.1 1.9 1.5 -Area of Debridement (cm) - Width 1.6 0.1 0.7 -Total Square (Area) (cm) 3.36 0.19 1.05 -Tunneling No No No -Undermining/Tunneling No No No -Circular Undermining No No No -Wound/Ulcer Outcome Not Healed Not Healed Not Healed -Ulcer Cleansing Rinsed/ Rinsed/ Rinsed/ Irrigated with Irrigated with Irrigated with Saline Saline Saline -Foul Odor after Cleansing No No No -Bioengineered Tissue No No No -Bleeding Controlled with Pressure Pressure Pressure -Offloading No No No -Treatment Response Procedure Procedure Procedure Tolerated Well Tolerated Well Tolerated Well -Debridement - Subq, 1st 20sq cm Yes No Yes #3 left medial ankle -Time 10:58 -Correct Patient Yes -Correct Side, Site, Position Yes -Correct Procedure Yes -Procedure Performed No -Post Debridement (cm) - Length 0.1 -Post Debridement (cm) - Width 0.1 -Post Debridement (cm) - Depth 0.1 -Total Square (Post) (cm) 0.01 -Tunneling No -Undermining/Tunneling No -Circular Undermining No -Wound/Ulcer Outcome Healed- Epithelialized #2 right lower leg post -Procedure Performed No Pain Scale: 0-10 Numeric Is Patient Pain Free? Yes Yes Yes WC - Nurse 3 - General Ulcer D/C NN Start: 06/03/21 10:19 Freq: Status: Active Protocol: Activity Type Activity Date Activity User E-Sign Co-Sign Detail Recorded Client Recorded Date Recorded By Document 01/30/21 12:01 DL [id number] 01/30/21 12:03 DL Document 02/06/21 11:17 DL [id number] 02/06/21 11:40 DL 01/30/21 02/06/21 12:01 11:17 Wound Care Nurse 3 #6 left lateral casillas -Ulcer Cleansing Rinsed/ Irrigated with Saline -Foul Odor after Cleansing No -Primary Dressing Applied Aquacel AG 4x4, NonAdherent Contact Layer -Primary Dressing Covered/Secured with Dry Gauze -Aquacel AG 4x4 1 #5 right lateral LE -Ulcer Cleansing Rinsed/ Irrigated with Saline -Foul Odor after Cleansing No -Primary Dressing Applied NonAdherent Contact Layer, Promogran -Primary Dressing Covered/Secured with Dry Gauze, Secured with Tape -Promogran 1 #4 left lower leg -Ulcer Cleansing Rinsed/ Rinsed/ Irrigated with Irrigated with Saline Saline -Foul Odor after Cleansing No No -Primary Dressing Applied NonAdherent NonAdherent Contact Layer Contact Layer -Other Dressing promogran aqaucel -Primary Dressing Covered/Secured with Dry Gauze Dry Gauze Right -Multi-Layered Wrap Application Multi-Layer Multi-Layer Comp - Bilat ($ Comp - Bilat ($ ) ) Treatment Response Procedure Procedure Tolerated Well Tolerated Well Pain Scale: 0-10 Numeric Is Patient Pain Free? Yes Yes WC - Visit Discharge Discharge Condition Stable Stable Ambulatory Status Ambulatory Ambulatory,Cane Transportation Private [facility] Facility Type Emergency Crew Super[facility] Facility Orders Sent Yes Yes Wound debrided: Left casillas Type of Debridement: Excisional debridement and Selective debridement Anesthesia Used: 4% Lidocaine Solution Depth: Down to and including healthy tissue and in the subcutaneous layer Percentage of wound debrided: 100 Instrument Used: 3mm curette Tissue Removed: Slough and devitalized tissue Severity: Fat Layer Exposed Amount of bleeding with debridement: Mild Bleeding Controlled with: Pressure Patient tolerated procedure: Patient tolerated procedure well Additional Wound Wound debrided: Left lower extremity (lateral) Type of Debridement: Excisional debridement Anesthesia Used: 4% Lidocaine Solution Depth: Down to and including healthy tissue and in the subcutaneous layer Percentage of wound debrided: 100 Instrument Used: 3mm curette Tissue Removed: Slough and devitalized tissue Severity: Fat Layer Exposed Amount of bleeding with debridement: Mild Bleeding Controlled with: Pressure Patient tolerated procedure: Patient tolerated procedure well Assessment/Plan Assessment/Plan (1) Ulcer of right lower extremity with fat layer exposed: CODE(S): L97.912 - Non-pressure chronic ulcer of unspecified part of right lower leg with fat layer exposed (2) Ulcer of left lower extremity with fat layer exposed: CODE(S): L97.922 - Non-pressure chronic ulcer of unspecified part of left lower leg with fat layer exposed (3) Chronic venous insufficiency: (4) DM2 (diabetes mellitus, type 2): CODE(S): E11.9 - Type 2 diabetes mellitus without complications QUALIFIERS: Qualified Code(s): Z79.4 - roasterman (current) use of insulin PLAN: New left lateral lower extremity ulcer. No new precipitating factor. Debridement done as documented above, procedure was well-tolerated. Improving prior ulcer. Continue Promogran with Adaptic over top. 3M for edema management. Change on Wednesday by facility nurse. Follow-up with me on . Elevate lower extremities when seated and in bed. Optimal diabetes control and increase protein intake. His questions were answered and he was advised to call with any further questions or concerns. Follow-up in 1 week with me. This note was generated with [employer] dictation software. It may contain incorrect words, spelling, and punctuation that were not noted in checking the note before signing.
[2021-02-13 11:17] VITALS: BP 135/88; PULSE 90; RESP 24; TEMP 36.8; BMI 45.5
--- NOTE | 2021-02-13 12:59 | PN.PCM_ITS ---
History of Present Illness Date of Service: 02/13/21 Chief Complaint: Nonhealing bilateral lower extremity ulcers. History of Wound: Mr. Dela Cruz is a 80-year-old who presents to the wound center due to nonhealing bilateral lower extremity ulcers. Had been seen here previously. History of chronic venous insufficiency/venous stasis ulcers. Current ulcerations said to have been noted 2 weeks ago. He admits that he has been more sedentary and attributes this to the ongoing pandemic. At the [facility], he has tried some dressings with no significant improvement. History of diabetes mellitus type 2 which per patient states is well controlled. Follows up with Dr. Warner at the [facility] and states that he had blood work about a month ago with no new concerns. Feels well at this time, denies chills, fever or otherwise feeling of unwell. Subjective Subjective Stable. Denies any new concerns at this time. Objective Data Objective Data Vital Signs: Vital Signs Temp Pulse Resp BP Pulse Ox 98.3 F 90 24 H 135/88 H 94 02/13/21 11:17 02/13/21 11:17 02/13/21 11:17 02/13/21 11:17 01/21/21 00:35 Body Mass Index (BMI) 45.5 Charges/Coding Procedures Integumentary [id number]: [id number] Deja subq tissue 20 sq cm/< Physical Exam Const alert, oriented x3 and no apparent distress General Appearance: cooperative and well developed HEENT normocephalic and hearing grossly normal bilaterally Head and Scalp: normal to inspection Eyes EOMs intact bilaterally General Eye: normal appearance of both eyes Neck full ROM and supple General: normal visual inspection Resp normal respiratory effort Effort and Inspection: able to speak in complete sentences Extremity General Extremity: edema Skin Wounds: wounds noted Neuro oriented x3, CN's II-XII intact bilaterally and moves all extremities Psych mental status grossly normal Appearance: grossly normal Debridement Note Debridement Note Post-Debridement Measurements and Additional Note: Post-Debridement Measurements/Treatment WC - Nurse 1 - General Ulcer Assessment Start: 01/23/21 10:19 Freq: Status: Active Protocol: [email or web address].LOWEXT Activity Type Activity Date Activity User E-Sign Co-Sign Detail Recorded Client Recorded Date Recorded By Document 01/23/21 10:19 ML [id number] 01/23/21 10:38 ML Document 01/30/21 11:18 KR [id number] 01/30/21 11:20 KR Document 02/06/21 10:20 DL [id number] 02/06/21 10:33 DL Document 02/13/21 11:17 DL [id number] 02/13/21 11:28 DL 01/23/21 01/30/21 02/06/21 10:19 11:18 10:20 WC - Today's Visit Information Type of service Follow-up Visit Follow-up Visit Follow-up Visit (Physician/MIXER DIAMOND POWDER (Physician/MIXER DIAMOND POWDER (Physician/MIXER DIAMOND POWDER ) ) ) Arrival Mode Ambulatory Ambulatory,Cane Ambulatory,Cane Transfer Assistance None None Patient Identification Verified (Name & Yes Yes ) Patient Requires Transmission-Based No Precautions Safety Precautions NA Finger Stick Blood Sugar(mg/dl) (if didnt check indicated): Blood Sugar Stated by Patient Height and Weight Body Mass Index (BMI) 45.5 45.5 45.5 BMI Classification Obese Obese Obese Vital Signs Temperature (97.8 F-99.1 F) 97.2 F L 97.6 F L 98.5 F Temperature Source Temporal Temporal Temporal Pulse Rate (60-100) 80 63 89 Pulse Location Monitor Monitor Monitor Respiratory Rate (12-18) 22 H 24 H Respiratory rate source Observation Observation Blood Pressure (90/60-120/80) 169/88 H 127/62 H 148/83 H Blood Pressure Mean (mm Hg) 115 83 104 Source Monitor Monitor Monitor Position Sitting Semi-Fowlers Blood Pressure Location Left Arm Left Arm History Since Last Visit- (Skip if this is Patient's initial visit) Have you changed medications since your No No No last visit? Any new allergies or adverse reactions No No No Had a fall/change in ADL's that may No No No increase risk of falls Signs or symptoms of abuse and/or No No No neglect since last visit Have you been in the hospital since your No No No last visit? Has dressing in place as prescribed Yes Yes Yes Has compression in place as prescribed N/A N/A Has offloadiing in place as prescribed N/A N/A N/A Experienced any changes in pain level or No No No management Left Footwear Regular Shoe Regular Shoe Regular Shoe Right Footwear Regular Shoe Regular Shoe Regular Shoe Pain Scale: 0-10 Numeric Is Patient Pain Free? Yes Yes Yes 02/13/21 11:17 WC - Today's Visit Information Type of service Nurse-only Visit Arrival Mode Ambulatory,Cane Transfer Assistance None Patient Identification Verified (Name & Yes ) Patient Requires Transmission-Based No Precautions Safety Precautions Finger Stick Blood Sugar(mg/dl) (if indicated): Blood Sugar Height and Weight Body Mass Index (BMI) 45.5 BMI Classification Obese Vital Signs Temperature (97.8 F-99.1 F) 98.3 F Temperature Source Temporal Pulse Rate (60-100) 90 Pulse Location Monitor Respiratory Rate (12-18) 24 H Respiratory rate source Observation Blood Pressure (90/60-120/80) 135/88 H Blood Pressure Mean (mm Hg) 103 Source Monitor Position Blood Pressure Location History Since Last Visit- (Skip if this is Patient's initial visit) Have you changed medications since your No last visit? Any new allergies or adverse reactions No Had a fall/change in ADL's that may No increase risk of falls Signs or symptoms of abuse and/or No neglect since last visit Have you been in the hospital since your No last visit? Has dressing in place as prescribed Yes Has compression in place as prescribed Yes Has offloadiing in place as prescribed N/A Experienced any changes in pain level or No management Left Footwear Right Footwear Pain Scale: 0-10 Numeric Is Patient Pain Free? Yes WC - Nurse 1 - General Ulcer Measurement Start: 01/23/21 10:19 Freq: Status: Active Protocol: Activity Type Activity Date Activity User E-Sign Co-Sign Detail Recorded Client Recorded Date Recorded By Document 01/23/21 10:19 ML [id number] 01/23/21 10:38 ML Document 01/30/21 11:18 KR [id number] 01/30/21 11:20 KR Document 02/06/21 10:20 DL [id number] 02/06/21 10:33 DL Document 02/13/21 11:17 DL [id number] 02/13/21 11:28 DL 01/23/21 01/30/21 02/06/21 10:19 11:18 10:20 Wound Center Nurse 1 #6 left lateral casillas -Current Size (cm) - Length -Current Size (cm) - Width -Current Size (cm) - Depth -Total Square Cm -Photo Taken -Exudate Amt -Exudate Type -Wound Margin -Granulation Amt -Granulation Quality -Necrosis Amt -Necrotic Tissue Type -Structure Exposed -Texture (Alexandra-wound Skin Appearance) -Moisture (Alexandra-wound Skin Appearance) -Color (Alexandra-wound Skin Appearance) -Temperature (Alexandra-wound Skin Appearance) -Tenderness on Palpation (Alexandra-wound Skin Appearance) -Ulcer Cleansing -Foul Odor after Cleansing -Anesthetic Used #5 right lateral LE -Current Size (cm) - Length 0 -Current Size (cm) - Width 0 -Current Size (cm) - Depth 0 -Total Square Cm 0 -Photo Taken Yes -Exudate Amt None Present -Wound Margin Flat & Intact -Granulation Amt Large (67-100%) -Granulation Quality Foley -Necrosis Amt None Present (0 %) -Structure Exposed N/A -Texture (Alexandra-wound Skin Appearance) Scarring -Moisture (Alexandra-wound Skin Appearance) Dry/Scaly -Color (Alexandra-wound Skin Appearance) Hemosiderin Staining -Temperature (Alexandra-wound Skin No Abnormality Appearance) (Pt Warm) -Tenderness on Palpation (Alexandra-wound No Skin Appearance) -Foul Odor after Cleansing No #4 left lower leg -Current Size (cm) - Length 2 2.1 1.6 -Current Size (cm) - Width 1.5 1.8 5 -Current Size (cm) - Depth 0.3 0.1 0.1 -Total Square Cm 3.0 3.78 8.0 -Photo Taken No -Exudate Amt Small Small Small -Exudate Type Serosanguineous Serosanguineous -Wound Margin Distinct, Distinct, Distinct, Outline Outline Outline Attached Attached Attached -Granulation Amt Medium (34-66%) Medium (34-66%) Large (67-100%) -Granulation Quality Red Red Red -Slough/Fibrin Yes -Necrosis Amt Medium (34-66%) None Present (0 Small (1-33%) %) -Necrotic Tissue Type Adherent Slough Adherent Slough -Structure Exposed N/A -Texture (Alexandra-wound Skin Appearance) No Abnormality Assessed, Scarring Scarring -Moisture (Alexandra-wound Skin Appearance) No Abnormality No Abnormality, Dry/Scaly Assessed -Color (Alexandra-wound Skin Appearance) No Abnormality No Abnormality, Hemosiderin Assessed Staining -Temperature (Alexandra-wound Skin No Abnormality No Abnormality No Abnormality Appearance) (Pt Warm) (Pt Warm) (Pt Warm) -Tenderness on Palpation (Alexandra-wound No No Skin Appearance) -Ulcer Cleansing Wound Cleanser Rinsed/ Wound Cleanser Irrigated with Saline -Foul Odor after Cleansing No No No -Anesthetic Used 4% Lidocaine 4% Lidocaine 4% Lidocaine Solution Solution Solution #3 left medial ankle -Current Size (cm) - Length 1 -Current Size (cm) - Width 0.8 -Current Size (cm) - Depth 0.1 -Total Square Cm 0.8 -Exudate Amt Small -Exudate Type Serosanguineous -Wound Margin Distinct, Outline Attached -Granulation Amt Medium (34-66%) -Necrosis Amt Medium (34-66%) -Necrotic Tissue Type Adherent Slough -Texture (Alexandra-wound Skin Appearance) No Abnormality -Moisture (Alexandra-wound Skin Appearance) No Abnormality -Color (Alexandra-wound Skin Appearance) No Abnormality -Temperature (Alexandra-wound Skin No Abnormality Appearance) (Pt Warm) -Ulcer Cleansing Wound Cleanser -Anesthetic Used 4% Lidocaine Solution #2 right lower leg post -Current Size (cm) - Length 0.3 -Current Size (cm) - Width 0.3 -Current Size (cm) - Depth 0.1 -Total Square Cm 0.09 -Exudate Amt Small -Exudate Type Serous -Wound Margin Distinct, Outline Attached -Granulation Amt Medium (34-66%) -Granulation Quality Foley -Necrosis Amt Medium (34-66%) -Necrotic Tissue Type Adherent Slough -Texture (Alexandra-wound Skin Appearance) No Abnormality -Moisture (Alexandra-wound Skin Appearance) No Abnormality -Color (Alexandra-wound Skin Appearance) No Abnormality -Temperature (Alexandra-wound Skin No Abnormality Appearance) (Pt Warm) -Ulcer Cleansing Wound Cleanser -Anesthetic Used 4% Lidocaine Solution Right Calf (cm) 34 44 40.6 Right Ankle (cm) 26 27 25.1 Left Calf (cm) 43 44.5 40.5 Left Ankle (cm) 27 27.6 25 02/13/21 11:17 Wound Center Nurse 1 #6 left lateral casillas -Current Size (cm) - Length 0.5 -Current Size (cm) - Width 0.4 -Current Size (cm) - Depth 0.1 -Total Square Cm 0.20 -Photo Taken No -Exudate Amt Small -Exudate Type Yellow/Green -Wound Margin Distinct, Outline Attached -Granulation Amt Large (67-100%) -Granulation Quality Red -Necrosis Amt Small (1-33%) -Necrotic Tissue Type Adherent Slough -Structure Exposed N/A -Texture (Alexandra-wound Skin Appearance) Scarring -Moisture (Alexandra-wound Skin Appearance) Dry/Scaly -Color (Alexandra-wound Skin Appearance) Hemosiderin Staining -Temperature (Alexandra-wound Skin No Abnormality Appearance) (Pt Warm) -Tenderness on Palpation (Alexandra-wound No Skin Appearance) -Ulcer Cleansing Wound Cleanser -Foul Odor after Cleansing No -Anesthetic Used 5% Lidocaine Gel #5 right lateral LE -Current Size (cm) - Length -Current Size (cm) - Width -Current Size (cm) - Depth -Total Square Cm -Photo Taken -Exudate Amt -Wound Margin -Granulation Amt -Granulation Quality -Necrosis Amt -Structure Exposed -Texture (Alexandra-wound Skin Appearance) -Moisture (Alexandra-wound Skin Appearance) -Color (Alexandra-wound Skin Appearance) -Temperature (Alexandra-wound Skin Appearance) -Tenderness on Palpation (Alexandra-wound Skin Appearance) -Foul Odor after Cleansing #4 left lower leg -Current Size (cm) - Length 0.5 -Current Size (cm) - Width 0.5 -Current Size (cm) - Depth 0.1 -Total Square Cm 0.25 -Photo Taken No -Exudate Amt None Present -Exudate Type -Wound Margin Distinct, Outline Attached -Granulation Amt Small (1-33%) -Granulation Quality Red -Slough/Fibrin -Necrosis Amt Small (1-33%) -Necrotic Tissue Type Adherent Slough -Structure Exposed N/A -Texture (Alexandra-wound Skin Appearance) Scarring -Moisture (Alexandra-wound Skin Appearance) -Color (Alexandra-wound Skin Appearance) Erythema, Hemosiderin Staining -Temperature (Alexandra-wound Skin No Abnormality Appearance) (Pt Warm) -Tenderness on Palpation (Alexandra-wound No Skin Appearance) -Ulcer Cleansing Wound Cleanser -Foul Odor after Cleansing No -Anesthetic Used 4% Lidocaine Solution #3 left medial ankle -Current Size (cm) - Length -Current Size (cm) - Width -Current Size (cm) - Depth -Total Square Cm -Exudate Amt -Exudate Type -Wound Margin -Granulation Amt -Necrosis Amt -Necrotic Tissue Type -Texture (Alexandra-wound Skin Appearance) -Moisture (Alexandra-wound Skin Appearance) -Color (Alexandra-wound Skin Appearance) -Temperature (Alexandra-wound Skin Appearance) -Ulcer Cleansing -Anesthetic Used #2 right lower leg post -Current Size (cm) - Length -Current Size (cm) - Width -Current Size (cm) - Depth -Total Square Cm -Exudate Amt -Exudate Type -Wound Margin -Granulation Amt -Granulation Quality -Necrosis Amt -Necrotic Tissue Type -Texture (Aleaxndra-wound Skin Appearance) -Moisture (Alexandra-wound Skin Appearance) -Color (Alexandra-wound Skin Appearance) -Temperature (Alexandra-wound Skin Appearance) -Ulcer Cleansing -Anesthetic Used Right Calf (cm) 41 Right Ankle (cm) 24.5 Left Calf (cm) 41.5 Left Ankle (cm) 25.5 WC - Nurse 2 - General Ulcer CM Notes Start: 01/23/21 10:19 Freq: Status: Active Protocol: Activity Type Activity Date Activity User E-Sign Co-Sign Detail Recorded Client Recorded Date Recorded By Document 01/23/21 10:57 MW [id number] 01/23/21 11:07 MW Document 01/30/21 11:40 MW [id number] 01/30/21 11:41 MW Document 02/06/21 10:54 MW [id number] 02/06/21 10:57 MW Document 02/13/21 11:40 DL [id number] 02/13/21 11:44 DL 01/23/21 01/30/21 02/06/21 10:57 11:40 10:54 Wound Center Nurse 2 #6 left lateral casillas -Time 10:57 -Correct Patient Yes -Correct Side, Site, Position Yes -Correct Procedure Yes -Procedure Performed Yes -Type of Procedure Debridement -Clinical Debridement Subcutaneous -Tissue Removed Subcutaneous -Post Debridement (cm) - Length 1.1 -Post Debridement (cm) - Width 0.8 -Post Debridement (cm) - Depth 0.1 -Total Square (Post) (cm) 0.88 -Area of Debridement (cm) - Length 1.1 -Area of Debridement (cm) - Width 0.8 -Total Square (Area) (cm) 0.88 -Tunneling No -Undermining/Tunneling No -Circular Undermining No -Wound/Ulcer Outcome Not Healed -Ulcer Cleansing Rinsed/ Irrigated with Saline -Foul Odor after Cleansing No -Bioengineered Tissue No -Bleeding Controlled with Pressure -Offloading No -Treatment Response Procedure Tolerated Well -Debridement - Subq, 1st 20sq cm No #5 right lateral LE -Time 11:00 11:40 10:54 -Correct Patient Yes Yes Yes -Correct Side, Site, Position Yes Yes Yes -Correct Procedure Yes Yes Yes -Procedure Performed Yes Yes -Type of Procedure Debridement Debridement -Clinical Debridement Subcutaneous Subcutaneous -Tissue Removed Subcutaneous Subcutaneous -Post Debridement (cm) - Length 6.5 0.7 0 -Post Debridement (cm) - Width 0.5 0.5 0 -Post Debridement (cm) - Depth 0.1 0.1 0 -Total Square (Post) (cm) 3.25 0.35 0 -Area of Debridement (cm) - Length 6.5 0.7 -Area of Debridement (cm) - Width 0.5 0.5 -Total Square (Area) (cm) 3.25 0.35 -Tunneling No No -Undermining/Tunneling No No -Circular Undermining No No -Wound/Ulcer Outcome Not Healed Not Healed Healed- Epithelialized -Ulcer Cleansing Rinsed/ Rinsed/ Irrigated with Irrigated with Saline Saline -Foul Odor after Cleansing No No -Bioengineered Tissue No No -Bleeding Controlled with Pressure Pressure -Offloading No No -Treatment Response Procedure Procedure Tolerated Well Tolerated Well -Debridement - Subq, 1st 20sq cm No Yes #4 left lower leg -Time 10:57 11:40 10:56 -Correct Patient Yes Yes Yes -Correct Side, Site, Position Yes Yes Yes -Correct Procedure Yes Yes Yes -Procedure Performed Yes Yes Yes -Type of Procedure Debridement Debridement Debridement -Clinical Debridement Subcutaneous Subcutaneous Subcutaneous -Tissue Removed Subcutaneous Subcutaneous Subcutaneous -Post Debridement (cm) - Length 2.1 1.9 1.5 -Post Debridement (cm) - Width 1.6 1.1 0.7 -Post Debridement (cm) - Depth 0.1 0.1 0.1 -Total Square (Post) (cm) 3.36 2.09 1.05 -Area of Debridement (cm) - Length 2.1 1.9 1.5 -Area of Debridement (cm) - Width 1.6 0.1 0.7 -Total Square (Area) (cm) 3.36 0.19 1.05 -Tunneling No No No -Undermining/Tunneling No No No -Circular Undermining No No No -Wound/Ulcer Outcome Not Healed Not Healed Not Healed -Ulcer Cleansing Rinsed/ Rinsed/ Rinsed/ Irrigated with Irrigated with Irrigated with Saline Saline Saline -Foul Odor after Cleansing No No No -Bioengineered Tissue No No No -Bleeding Controlled with Pressure Pressure Pressure -Offloading No No No -Treatment Response Procedure Procedure Procedure Tolerated Well Tolerated Well Tolerated Well -Debridement - Subq, 1st 20sq cm Yes No Yes #3 left medial ankle -Time 10:58 -Correct Patient Yes -Correct Side, Site, Position Yes -Correct Procedure Yes -Procedure Performed No -Post Debridement (cm) - Length 0.1 -Post Debridement (cm) - Width 0.1 -Post Debridement (cm) - Depth 0.1 -Total Square (Post) (cm) 0.01 -Tunneling No -Undermining/Tunneling No -Circular Undermining No -Wound/Ulcer Outcome Healed- Epithelialized #2 right lower leg post -Procedure Performed No Pain Scale: 0-10 Numeric Is Patient Pain Free? Yes Yes Yes 02/13/21 11:40 Wound Center Nurse 2 #6 left lateral casillas -Time 11:41 -Correct Patient Yes -Correct Side, Site, Position -Correct Procedure Yes -Procedure Performed Yes -Type of Procedure Debridement -Clinical Debridement Subcutaneous -Tissue Removed Subcutaneous -Post Debridement (cm) - Length 1.4 -Post Debridement (cm) - Width 0.7 -Post Debridement (cm) - Depth 0.1 -Total Square (Post) (cm) 0.98 -Area of Debridement (cm) - Length 1.4 -Area of Debridement (cm) - Width 0.7 -Total Square (Area) (cm) 0.98 -Tunneling No -Undermining/Tunneling No -Circular Undermining No -Wound/Ulcer Outcome Not Healed -Ulcer Cleansing Rinsed/ Irrigated with Saline -Foul Odor after Cleansing No -Bioengineered Tissue No -Bleeding Controlled with Pressure -Offloading No -Treatment Response Procedure Tolerated Well -Debridement - Subq, 1st 20sq cm Yes #5 right lateral LE -Time -Correct Patient -Correct Side, Site, Position -Correct Procedure -Procedure Performed -Type of Procedure -Clinical Debridement -Tissue Removed -Post Debridement (cm) - Length -Post Debridement (cm) - Width -Post Debridement (cm) - Depth -Total Square (Post) (cm) -Area of Debridement (cm) - Length -Area of Debridement (cm) - Width -Total Square (Area) (cm) -Tunneling -Undermining/Tunneling -Circular Undermining -Wound/Ulcer Outcome -Ulcer Cleansing -Foul Odor after Cleansing -Bioengineered Tissue -Bleeding Controlled with -Offloading -Treatment Response -Debridement - Subq, 1st 20sq cm #4 left lower leg -Time 11:41 -Correct Patient Yes -Correct Side, Site, Position Yes -Correct Procedure Yes -Procedure Performed Yes -Type of Procedure Debridement -Clinical Debridement Subcutaneous -Tissue Removed Subcutaneous -Post Debridement (cm) - Length 0.7 -Post Debridement (cm) - Width 0.5 -Post Debridement (cm) - Depth 0.1 -Total Square (Post) (cm) 0.35 -Area of Debridement (cm) - Length 0.7 -Area of Debridement (cm) - Width 0.5 -Total Square (Area) (cm) 0.35 -Tunneling No -Undermining/Tunneling No -Circular Undermining No -Wound/Ulcer Outcome Not Healed -Ulcer Cleansing Rinsed/ Irrigated with Saline -Foul Odor after Cleansing No -Bioengineered Tissue No -Bleeding Controlled with Pressure -Offloading No -Treatment Response Procedure Tolerated Well -Debridement - Subq, 1st 20sq cm No #3 left medial ankle -Time -Correct Patient -Correct Side, Site, Position -Correct Procedure -Procedure Performed -Post Debridement (cm) - Length -Post Debridement (cm) - Width -Post Debridement (cm) - Depth -Total Square (Post) (cm) -Tunneling -Undermining/Tunneling -Circular Undermining -Wound/Ulcer Outcome #2 right lower leg post -Procedure Performed Pain Scale: 0-10 Numeric Is Patient Pain Free? Yes WC - Nurse 3 - General Ulcer D/C NN Start: 01/23/21 10:19 Freq: Status: Active Protocol: Activity Type Activity Date Activity User E-Sign Co-Sign Detail Recorded Client Recorded Date Recorded By Document 01/30/21 12:01 DL [id number] 01/30/21 12:03 DL Document 02/06/21 11:17 DL [id number] 02/06/21 11:40 DL Document 02/13/21 11:51 DL [id number] 02/13/21 11:59 DL 01/30/21 02/06/21 02/13/21 12:01 11:17 11:51 Wound Care Nurse 3 #6 left lateral casillas -Ulcer Cleansing Rinsed/ Rinsed/ Irrigated with Irrigated with Saline Saline -Foul Odor after Cleansing No No -Primary Dressing Applied Aquacel AG 4x4, NonAdherent NonAdherent Contact Layer, Contact Layer Promogran -Primary Dressing Covered/Secured with Dry Gauze Dry Gauze -Aquacel AG 4x4 1 -Promogran 1 #5 right lateral LE -Ulcer Cleansing Rinsed/ Irrigated with Saline -Foul Odor after Cleansing No -Primary Dressing Applied NonAdherent Contact Layer, Promogran -Primary Dressing Covered/Secured with Dry Gauze, Secured with Tape -Promogran 1 #4 left lower leg -Ulcer Cleansing Rinsed/ Rinsed/ Rinsed/ Irrigated with Irrigated with Irrigated with Saline Saline Saline -Foul Odor after Cleansing No No No -Primary Dressing Applied NonAdherent NonAdherent NonAdherent Contact Layer Contact Layer Contact Layer -Other Dressing promogran aqaucel promogran -Primary Dressing Covered/Secured with Dry Gauze Dry Gauze Dry Gauze Right -Multi-Layered Wrap Application Multi-Layer Multi-Layer Multi-Layer Comp - Bilat ($ Comp - Bilat ($ Comp - Bilat ($ ) ) ) Treatment Response Procedure Procedure Tolerated Well Tolerated Well Pain Scale: 0-10 Numeric Is Patient Pain Free? Yes Yes Yes WC - Visit Discharge Discharge Condition Stable Stable Stable Ambulatory Status Ambulatory Ambulatory,Cane Ambulatory Transportation Private Auto Private Auto Facility Type [facility] Facility Facility Telephoned (if yes, spoke with:) Yes Orders Sent Yes Yes Wound debrided: Left casillas Type of Debridement: Excisional debridement Anesthesia Used: 4% Lidocaine Solution Depth: Down to and including healthy tissue Percentage of wound debrided: 100 Instrument Used: 3mm curette Tissue Removed: Slough and devitalized tissue Severity: Fat Layer Exposed Amount of bleeding with debridement: Mild Bleeding Controlled with: Pressure Patient tolerated procedure: Patient tolerated procedure well Additional Wound Wound debrided: Left lower extremity lateral Type of Debridement: Excisional debridement Depth: Down to and including healthy tissue and in the subcutaneous layer Percentage of wound debrided: 100 Instrument Used: 3mm curette Tissue Removed: Slough and devitalized tissue Severity: Fat Layer Exposed Amount of bleeding with debridement: Mild Bleeding Controlled with: Pressure Patient tolerated procedure: Patient tolerated procedure well Assessment/Plan Assessment/Plan (1) Ulcer of right lower extremity with fat layer exposed: CODE(S): L97.912 - Non-pressure chronic ulcer of unspecified part of right lower leg with fat layer exposed (2) Ulcer of left lower extremity with fat layer exposed: CODE(S): L97.922 - Non-pressure chronic ulcer of unspecified part of left lower leg with fat layer exposed (3) Chronic venous insufficiency: (4) DM2 (diabetes mellitus, type 2): CODE(S): E11.9 - Type 2 diabetes mellitus without complications QUALIFIERS: Qualified Code(s): Z79.4 - half-way (current) use of insulin PLAN: Left casillas improving. Left lateral with no significant improvement. Debridement done as documented above, procedure was well-tolerated. Continue Pr omogran with Adaptic over top. 3M for edema management. Change on Wednesday by facility nurse. Follow-up with me on . Elevate lower extremities when seated and in bed. Optimal diabetes control and increase protein intake. His questions were answered and he was advised to call with any further questions or concerns. Follow-up in 1 week with me. This note was generated with [employer]Visit dictation software. It may contain incorrect words, spelling, and punctuation that were not noted in checking the note before signing.
== END 2021-02-19 23:59 ==
LOC: WC 11:00
PROVIDERS: PCP Family Medicine; Referring Provider Internal Medicine; Visit Provider Internal Medicine
DX: E11.621 Type 2 diabetes mellitus with foot ulcer (principal); I87.2 Venous insufficiency (chronic) (peripheral); L97.912 Non-pressure chronic ulcer of unspecified part of right lower leg with fat layer exposed; L97.922 Non-pressure chronic ulcer of unspecified part of left lower leg with fat layer exposed; Z79.4 Long term (current) use of insulin
CPT/HCPCS: 11042; 29581; 99213; G0463

== ENCOUNTER 2021-02-27 09:00 | Outpatient (RCR) | payer MEDICARE, MEDICAID, SELFPAY ==
[2021-02-20 00:26] VITALS: BP 135/88; PULSE 90; RESP 24; TEMP 36.8; O2SAT 94
[2021-02-20 09:27] VITALS: BP 124/70; PULSE 98; RESP 24; TEMP 36.3; BMI 45.5
--- NOTE | 2021-02-20 10:04 | PCM.WC.PN ---
History of Present Illness Date of Service: 02/20/21 Chief Complaint: Nonhealing bilateral lower extremity ulcers. History of Wound: Mr. Dela Cruz is a 80-year-old who presents to the wound center due to nonhealing bilateral lower extremity ulcers. Had been seen here previously. History of chronic venous insufficiency/venous stasis ulcers. Current ulcerations said to have been noted 2 weeks ago. He admits that he has been more sedentary and attributes this to the ongoing pandemic. At the facility, he has tried some dressings with no significant improvement. History of diabetes mellitus type 2 which per patient states is well controlled. Follows up with Dr. Warner at the [facility] and states that he had blood work about a month ago with no new concerns. Feels well at this time, denies chills, fever or otherwise feeling of unwell. Subjective Subjective Stable. Denies any new concerns at this time. Improving ulcers Objective Data Objective Data Vital Signs: Vital Signs Temp Pulse Resp BP Pulse Ox 97.4 F L 98 24 H 124/70 H 94 02/20/21 09:27 02/20/21 09:27 02/20/21 09:27 02/20/21 09:27 02/20/21 00:26 Body Mass Index (BMI) 45.5 Charges/Coding Procedures Integumentary [id number]: [id number] Deja subq tissue 20 sq cm/< Physical Exam Const alert, oriented x3 and no apparent distress General Appearance: cooperative and well developed HEENT normocephalic and hearing grossly normal bilaterally Head and Scalp: normal to inspection Eyes EOMs intact bilaterally General Eye: normal appearance of both eyes Neck full ROM and supple General: normal visual inspection Resp normal respiratory effort Effort and Inspection: able to speak in complete sentences Extremity General Extremity: edema Skin Wounds: wounds noted Neuro oriented x3, CN's II-XII intact bilaterally and moves all extremities Psych mental status grossly normal Appearance: grossly normal Debridement Note Debridement Note Post-Debridement Measurements and Additional Note: Post-Debridement Measurements/Treatment WC - Nurse 1 - General Ulcer Assessment Start: 02/20/21 09:27 Freq: Status: Active Protocol: [email or web address] Activity Type Activity Date Activity User E-Sign Co-Sign Detail Recorded Client Recorded Date Recorded By Document 02/20/21 09:27 SHUN [id number] 02/20/21 09:36 DL 02/20/21 09:27 - Today's Visit Information Type of service Follow-up Visit (Physician/DOCK BUILDER ) Arrival Mode Ambulatory,Cane Transfer Assistance None Patient Identification Verified (Name & Yes ) Patient Requires Transmission-Based No Precautions Height and Weight Body Mass Index (BMI) 45.5 BMI Classification Obese Vital Signs Temperature (97.8 F-99.1 F) 97.4 F L Temperature Source Temporal Pulse Rate (60-100) 98 Pulse Location Monitor Respiratory Rate (12-18) 24 H Respiratory rate source Observation Blood Pressure (90/60-120/80) 124/70 H Blood Pressure Mean (mm Hg) 88 Source Monitor History Since Last Visit- (Skip if this is Patient's initial visit) Have you changed medications since your No last visit? Any new allergies or adverse reactions No Had a fall/change in ADL's that may No increase risk of falls Signs or symptoms of abuse and/or No neglect since last visit Have you been in the hospital since your No last visit? Has dressing in place as prescribed Yes Has compression in place as prescribed Yes Has offloadiing in place as prescribed N/A Experienced any changes in pain level or No management Pain Scale: 0-10 Numeric Is Patient Pain Free? Yes - Nurse 1 - General Ulcer Measurement Start: 02/20/21 09:27 Freq: Status: Active Protocol: Activity Type Activity Date Activity User E-Sign Co-Sign Detail Recorded Client Recorded Date Recorded By Document 02/20/21 09:27 [id number] 02/20/21 09:36 DL 02/20/21 09:27 Wound Center Nurse 1 #6 left lateral casillas -Current Size (cm) - Length 0.5 -Current Size (cm) - Width 0.4 -Current Size (cm) - Depth 0.1 -Total Square Cm 0.20 -Photo Taken No -Exudate Amt None Present -Wound Margin Distinct, Outline Attached -Granulation Amt Large (67-100%) -Granulation Quality [place] -Necrosis Amt None Present (0 %) -Structure Exposed None/Limited to Skin Breakdown -Texture (Alexandra-wound Skin Appearance) Scarring -Moisture (Alexandra-wound Skin Appearance) No Abnormality, Dry/Scaly -Color (Alexandra-wound Skin Appearance) Hemosiderin Staining -Temperature (Alexandra-wound Skin No Abnormality Appearance) (Pt Warm) -Tenderness on Palpation (Alexandra-wound No Skin Appearance) -Ulcer Cleansing Wound Cleanser -Foul Odor after Cleansing No -Anesthetic Used 5% Lidocaine Gel #4 left lower leg -Current Size (cm) - Length 0.3 -Current Size (cm) - Width 0.3 -Current Size (cm) - Depth 0.1 -Total Square Cm 0.09 -Photo Taken No -Exudate Amt None Present -Wound Margin Flat & Intact -Granulation Quality Hyper- granulation, [place] -Necrosis Amt Small (1-33%) -Necrotic Tissue Type Adherent Slough -Structure Exposed N/A -Texture (Alexandra-wound Skin Appearance) Scarring -Moisture (Alexandra-wound Skin Appearance) Dry/Scaly -Color (Alexandra-wound Skin Appearance) Hemosiderin Staining -Temperature (Alexandra-wound Skin No Abnormality Appearance) (Pt Warm) -Ulcer Cleansing Wound Cleanser -Foul Odor after Cleansing No -Anesthetic Used 5% Lidocaine Gel Right Calf (cm) 40.5 Right Ankle (cm) 24.5 Left Calf (cm) 40.5 Left Ankle (cm) 25.2 Wound debrided: Left casillas Type of Debridement: Excisional debridement Anesthesia Used: 4% Lidocaine Solution Depth: Down to and including healthy tissue Percentage of wound debrided: 100 Instrument Used: 3mm curette Tissue Removed: Slough and devitalized tissue Severity: Fat Layer Exposed Amount of bleeding with debridement: Mild Bleeding Controlled with: Pressure Patient tolerated procedure: Patient tolerated procedure well Additional Wound Wound debrided: Left [place] xtremity ( lateral ) Type of Debridement: Excisional debridement Anesthesia Used: 4% Lidocaine Solution Depth: Down to and including healthy tissue and in the subcutaneous layer Percentage of wound debrided: 100 Instrument Used: 3mm curette Tissue Removed: Slough and devitalized tissue Severity: Fat Layer Exposed Amount of bleeding with debridement: Mild Bleeding Controlled with: Pressure Patient tolerated procedure: Patient tolerated procedure well Assessment/Plan Assessment/Plan (1) Ulcer of right lower extremity with fat layer exposed: CODE(S): L97.912 - Non-pressure chronic ulcer of unspecified part of right lower leg with fat layer exposed (2) Ulcer of left lower extremity with fat layer exposed: CODE(S): L97.922 - Non-pressure chronic ulcer of unspecified part of left lower leg with fat layer exposed (3) Chronic venous insufficiency: (4) DM2 (diabetes mellitus, type 2): CODE(S): E11.9 - Type 2 diabetes mellitus without complications QUALIFIERS: Qualified Code(s): 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 Debridement done as documented above, procedure was well-tolerated. Continue Promogran with Adaptic over top. 3M for edema management. Change on Wednesday by facility nurse. Follow-up with me on . Elevate lower extremities when seated and in bed. Optimal diabetes control and increase protein intake. His questions were answered and he was advised to call with any further questions or concerns. Follow-up in 1 week. This note was generated with [employer] dictation software. It may contain incorrect words, spelling, and punctuation that were not noted in checking the note before signing.
[2021-02-27 09:03] VITALS: BP 134/89; PULSE 84; RESP 18; TEMP 37.1; BMI 45.5
--- NOTE | 2021-02-27 11:08 | PN.PCM_ITS ---
History of Present Illness Date of Service: 02/27/21 Chief Complaint: Nonhealing bilateral lower extremity ulcers. History of Wound: Mr. Dela Cruz is a 80-year-old who presents to the wound center due to nonhealing bilateral lower extremity ulcers. Had been seen here previously. History of chronic venous insufficiency/venous stasis ulcers. Current ulcerations said to have been noted 2 weeks ago. He admits that he has been more sedentary and attributes this to the ongoing pandemic. At the [facility], he has tried some dressings with no significant improvement. History of diabetes mellitus type 2 which per patient states is well controlled. Follows up with Dr. Warner at the [facility] and states that he had blood work about a month ago with no new concerns. Feels well at this time, denies chills, fever or otherwise feeling of unwell. Subjective Subjective Healed. No new concerns at this time. Objective Data Objective Data Vital Signs: Vital Signs Temp Pulse Resp BP Pulse Ox 98.7 F 84 18 134/89 H 94 02/27/21 09:03 02/27/21 09:03 02/27/21 09:03 02/27/21 09:03 02/20/21 00:26 Body Mass Index (BMI) 45.5 Charges/Coding Visit Charges Office Visits / Consults: 21173 OV L3 Est Physical Exam Const alert, oriented x3 and no apparent distress General Appearance: cooperative and well developed HEENT normocephalic and hearing grossly normal bilaterally Head and Scalp: normal to inspection Eyes EOMs intact bilaterally General Eye: normal appearance of both eyes Neck full ROM and supple General: normal visual inspection Resp normal respiratory effort Effort and Inspection: able to speak in complete sentences Extremity General Extremity: edema Neuro oriented x3, CN's II-XII intact bilaterally and moves all extremities Psych mental status grossly normal Appearance: grossly normal Assessment/Plan Assessment/Plan (1) Ulcer of right lower extremity with fat layer exposed: CODE(S): L97.912 - Non-pressure chronic ulcer of unspecified part of right lower leg with fat layer exposed (2) Ulcer of left lower extremity with fat layer exposed: CODE(S): L97.922 - Non-pressure chronic ulcer of unspecified part of left lower leg with fat layer exposed (3) Chronic venous insufficiency: (4) DM2 (diabetes mellitus, type 2): CODE(S): E11.9 - Type 2 diabetes mellitus without complications QUALIFIERS: Qualified Code(s): Z79.4 - shelter (current) use of insulin PLAN: Healed. No debridement completed. Continue Adaptic over top for 2 weeks. Circ -aids for compression. Elevate lower extremities when seated and in bed. Optimal diabetes control and increase protein intake. His questions were answered and he was advised to call with any further questions or concerns. Discharge from the wound center. This note was generated with [employer] dictation software. It may contain incorrect words, spelling, and punctuation that were not noted in checking the note before signing.
== END 2021-02-27 10:40 | disposition home or self-care (01) ==
LOC: WC 09:00
PROVIDERS: PCP Family Medicine; Referring Provider Internal Medicine; Visit Provider Internal Medicine
DX: E11.622 Type 2 diabetes mellitus with other skin ulcer (principal); L97.922 Non-pressure chronic ulcer of unspecified part of left lower leg with fat layer exposed; L97.912 Non-pressure chronic ulcer of unspecified part of right lower leg with fat layer exposed; I87.2 Venous insufficiency (chronic) (peripheral); Z79.4 Long term (current) use of insulin
CPT/HCPCS: 11042; 99213; G0463

== ENCOUNTER 2021-07-15 12:38 | Emergency (ER) | payer MEDICARE, MEDICAID, SELFPAY ==
[2021-07-15 12:39] VITALS: BP 126/70; PULSE 62; RESP 16; TEMP 36.6; O2SAT 96; BMI 44.5
[2021-07-15 12:44] VITALS: BP 126/70; PULSE 61; RESP 16; O2SAT 98
--- NOTE | 2021-07-15 13:18 | ED.VIS.GI ---
HPI HPI - GI History of Present Illness Chief Complaint: Foreign Body Informant: patient Abdominal Pain/Flank Pain Onset: Today and Hours Context: Gradual Onset Timing: Continuous Current Severity: Gone Maximum Severity: Mild Nausea/Vomiting/Emesis GI Symptom: Negative for Nausea and Vomiting Diarrhea/Melena/Hematochezia GI Symptom: Negative for Diarrhea and Melena Associated Symptoms Associated Symptoms: Negative for Dysuria and Frequency Narrative Narrative: 80-year-old male extensive past medical history of hypertension, diabetes, CHF, pacemaker, CABG. states he was eating today around noon was having meatloaf and thinks he got stuck in his esophagus. Said this happened before but always resolved on its own. He has had prior upper endoscopy but he is never needed it done for an acute food bolus. States now he is able to drink water and Coke. Prior similar symptoms: Yes Recent Illness/Hospitalization: No PFSH PFSH Medical History Asthma Atrial fibrillation BiPAP (biphasic positive airway pressure) dependence Congestive heart failure (CHF) COPD (chronic obstructive pulmonary disease) Diabetes GERD (gastroesophageal reflux disease) Hyperlipemia Hypertension Non-smoker Pacemaker Ulcer of left lower extremity with fat layer exposed Ulcer of right lower extremity with fat layer exposed Home Medications aspirin 81 mg PO DAILY 06/09/13 [History Last Taken 01/09/21] nitroglycerin 0.4 mg SUBLINGUAL Q5M PRN 06/09/13 [History Last Taken 10/17/16 09:00] magnesium oxide 400 mg PO DAILY 10/07/15 [History Last Taken 01/09/21] oxybutynin chloride 5 mg PO TID 01/27/16 [History Last Taken 01/09/21] metoprolol tartrate 25 mg PO BID 05/08/16 [History Last Taken 01/09/21] furosemide 40 mg PO BID 10/17/16 [History Last Taken 01/09/21] atorvastatin 80 mg PO QHS 08/05/18 [History Last Taken 01/08/21] pantoprazole 40 mg PO DAILY 09/08/18 [History Last Taken 01/09/21] cholecalciferol (vitamin D3) 2,000 unit PO DAILY 11/24/19 [History Last Taken 01/09/21] famotidine 40 mg PO BID 11/24/19 [History Last Taken 01/09/21] fluticasone propionate 2 spray NASAL DAILY 11/24/19 [History Last Taken 01/09/21] montelukast 10 mg PO DAILY 11/24/19 [History Last Taken 01/08/21] docusate sodium 100 mg PO DAILY #20 cap 05/20/20 [Rx Last Taken 01/09/21] acetaminophen [Tylenol Extra Strength] 1,000 mg PO Q6H PRN 01/09/21 [History Last Taken 12/23/20] alum-mag hydroxide-simeth [Mintox Maximum Strength] 20 ml PO Q6H PRN 01/09/21 [History Last Taken 12/22/20] calcium carbonate-vitamin D2 1 tab PO DAILY 01/09/21 [History Last Taken 01/09/21] dicyclomine 10 mg PO 4X/DAY 01/09/21 [History Last Taken 01/09/21] glimepiride 4 mg PO BREAKFAST 01/09/21 [History Last Taken 01/09/21] metformin [Glucophage] 500 mg PO TID 01/09/21 [History Last Taken 01/09/21] mirtazapine 15 mg PO QHS 01/09/21 [History Last Taken 01/08/21] tamsulosin 0.4 mg PO QHS 01/09/21 [History Last Taken 01/08/21] benzonatate 200 mg PO TID PRN #30 cap 01/11/21 [Rx Last Taken Unknown] potassium chloride 20 meq PO BID #60 tab 01/11/21 [Rx Last Taken Unknown] budesonide-formoterol [Symbicort] 2 puff INHALATION BID 02/06/21 [History Last Taken Unknown] Allergy/AdvReac Type Severity Reaction Status Date / Time lisinopril Allergy Unknown Verified 07/15/21 12:44 sertraline Allergy Unknown Verified 07/15/21 12:44 Surgical History History of bilateral hip arthroplasty History of cholecystectomy Hx of CABG Social History Smoking Status: Never smoker ROS ROS ED ROS Narrative Denies recent illness. Review of Systems ROS Unobtainable: Denies due to encephalopathy Constitutional Constitutional ED: Denies fever(s) ENT ENT ED: Denies ear pain Cardiovascular Cardiovascular: Denies chest pain Respiratory/Chest Respiratory/Chest: Denies dyspnea Gastrointestinal Gastrointestinal: Denies abdominal pain, nausea or vomiting Genitourinary Genitourinary ED: Denies dysuria Musculoskeletal Musculoskeletal: Denies myalgias Integumentary Denies rash Neurologic Neurologic: Denies headache(s) Psychiatric Psychiatric: Denies depression Endocrine Endocrinology: Denies polyuria Hematologic/Lymphatic Hematologic/Lymphatic: Denies easy bruising Allergic/Immunologic Allergic/Immunologic ED: Denies urticaria EXAM Physical Exam Narrative Exam Narrative: 80-year-old male no acute distress vital signs stable afebrile. Pulse ox 96% on room air no signs hypoxia. No trouble swallowing or breathing. He is not spitting out saliva. H EENT exam unremarkable. Posterior pharynx unremarkable. I gave him a glass of water he was able to drink that without any difficulty. He was sitting there drinking a small can of Coke when I entered the room. Neck nontender. Trachea midline. Lungs clear to auscultation bilaterally. Heart regular rhythm no murmur rate about 60. Abdomen morbidly obese but soft nontender normal bowel sounds no peritoneal signs. Moving all 4 extremities. Chronic venous stasis. Neurologically is awake and alert with no focal motor deficits. Const Vital Signs: 07/15/21 12:39 07/15/21 12:44 07/15/21 12:58 Temperature 97.8 F Temperature Source Axillary Pulse Rate 62 61 Respiratory Rate 16 16 Respiratory Effort Normal Respiratory Pattern Normal Blood Pressure 126/70 H 126/70 H Blood Pressure Mean 88 88 Pulse Ox 96 98 Oxygen Delivery Method Room Air Room Air Positive well nourished, well developed and obese; Negative for cachectic, contractures or unkempt General Appearance ED: well developed and NAD; Negative for unkempt, cachectic, contractures or pallor Nutritional Appearance: obese; Negative for cachectic HEENT Reports moist mucous membranes normocephalic; Negative for atraumatic, trauma or tenderness Eyes PERRL and EOMs intact bilaterally Neck no lymphadenopathy, supple and no JVD Resp normal respiratory effort and clear to auscultation bilaterally Auscultation: Negative for rales, rhonchi or wheezes Cardio regular rate, regular rhythm, S1 normal heart sound, S2 normal heart sound and no murmurs GI non-tender, non-distended and no masses Auscultation: normoactive bowel sounds Palpation: soft; Negative for tender, guarding or rigid Back/Spine no CVA tenderness Extremity full ROM Extremity Narrative: Chronic venous stasis changes. General Extremety ED: Yes edema General Extremity: edema Neuro moves all extremities Sensorium / Orientation: alert, oriented to person, oriented to place and oriented to time; Negative for orientation impaired, confused or lethargic Motor Exam: strength 5/5 throughout Psych mental status grossly normal and thought process normal Appearance: Negative for unkempt Skin no wounds General Skin Exam: Negative for jaundice or pallor Lesions: no lesions Rashes: no rashes MDM MDM MDM Narrative Medical decision making narrative: 80-year-old male most likely an esophageal food bolus of meat loaf. It has seem of resolved. He is able to drink without any difficulty. He is having no trouble breathing or swallowing. He will be discharged to home. He will be instructed to follow-up with GI for upper endoscopy for further evaluation to determine if he has esophageal narrowing or will need esophageal dilatation. Discharge Plan Triage Chief Complaint: Foreign Body ED Provider: Alphonso Rahman Dx/Rx/DC Orders Clinical Impression: Acute esophageal obstruction, History of coronary artery disease, History of diabetes mellitus Instructions: ED Esophageal Foreign Body, Resolved Prescriptions: No Action nitroglycerin 0.4 MG tablet 0.4 mg sublingual Q5M PRN (Reason: Chest Pain) RF: 0 aspirin 81 MG tablet,chewable 81 mg PO DAILY RF: 0 magnesium oxide 400 MG tablet 400 mg PO DAILY RF: 0 oxybutynin chloride 5 MG tablet 5 mg PO TID RF: 0 metoprolol tartrate 25 MG tablet 25 mg PO BID RF: 0 furosemide 40 MG tablet 40 mg PO BID RF: 0 atorvastatin 80 MG tablet 80 mg PO QHS RF: 0 pantoprazole 40 MG tablet 40 mg PO DAILY RF: 0 famotidine 40 MG tablet 40 mg PO BID RF: 0 montelukast 10 MG tablet 10 mg PO DAILY RF: 0 fluticasone propionate 1 SPRAY spray,suspension 2 spray NASAL DAILY RF: 0 cholecalciferol (vitamin D3) 2,000 UNIT capsule 2,000 unit PO DAILY RF: 0 docusate sodium 100 MG capsule 100 mg PO DAILY Qty: 20 RF: 0 metformin [Glucophage] 500 mg tablet 500 mg PO TID RF: 0 tamsulosin 0.4 mg Capsule 0.4 mg PO QHS RF: 0 mirtazapine 15 mg Tablet 15 mg PO QHS RF: 0 dicyclomine 10 mg Capsule 10 mg PO 4X/DAY RF: 0 acetaminophen [Tylenol Extra Strength] 500 mg Tablet 1,000 mg PO Q6H PRN (Reason: Pain) RF: 0 glimepiride 4 mg Tablet 4 mg PO BREAKFAST RF: 0 alum-mag hydroxide-simeth [Mintox Maximum Strength] 400-400-40 mg/5 mL Suspension 20 ml PO Q6H PRN (Reason: UPSET STOMACH) RF: 0 calcium carbonate-vitamin D2 500 mg(1,250mg) -200 unit Tablet 1 tab PO DAILY RF: 0 benzonatate 100 mg Capsule 200 mg PO TID PRN (Reason: COUGH) Qty: 30 RF: 0 potassium chloride 20 mEq tablet extended release 20 meq PO BID Qty: 60 RF: 0 budesonide-formoterol [Symbicort] 80-4.5 mcg/actuation Hfa Aerosol Inhaler 2 puff INHALATION BID RF: 0 Primary Care Provider: Bertrand Warner Referrals: Bertrand Warner MD [Primary Care Provider] - As Needed Eagle Domingo DO [STAFF PHYSICIAN] - As soon as possible Activity Restrictions/Additional Instructions: Call and follow-up with the GI Dr. friend for possible upper endoscopy to evaluate your esophagus to see if it is narrowed or needs dilated. Make sure you are eating slowly, chewing your food thoroughly and cutting up in small pieces. Be very careful with meat because at some most likely food to get stuck. Disposition Disposition: Home, Self Care
--- NOTE | 2021-07-15 13:40 | ED.RN ---
talked to maria luisa from [facility]. wheelchair van to be here with ETA of 90 min
[2021-07-15 14:24] VITALS: BP 124/78; PULSE 63; RESP 15; O2SAT 98
== END 2021-07-15 14:25 | disposition home or self-care (01) ==
PROVIDERS: Emergency Provider Emergency Medicine; PCP Family Medicine
DX: K22.2 Esophageal obstruction (principal); E11.9 Type 2 diabetes mellitus without complications; E78.5 Hyperlipidemia, unspecified; I25.10 Atherosclerotic heart disease of native coronary artery without angina pectoris; I48.91 Unspecified atrial fibrillation; I11.0 Hypertensive heart disease with heart failure; I50.9 Heart failure, unspecified; J44.9 Chronic obstructive pulmonary disease, unspecified; K21.9 Gastro-esophageal reflux disease without esophagitis; Z79.51 Long term (current) use of inhaled steroids; Z79.82 Long term (current) use of aspirin; Z79.84 Long term (current) use of oral hypoglycemic drugs; Z95.0 Presence of cardiac pacemaker; Z95.1 Presence of aortocoronary bypass graft
CPT/HCPCS: 99284

== ENCOUNTER 2022-01-23 05:02 | Day surgery (SDC) | payer MEDICARE, MEDICAID, SELFPAY ==
[2022-01-23] VITALS (7 sets, daily range): BP systolic 111–143; BP diastolic 72–117; PULSE 60–88; RESP 16–18; TEMP 36.6–36.7; O2SAT 92–96; BMI 45.4
[2022-01-23] MEDS: Lactated Ringers 1,000 ML 15 ML IV (06:00)
[2022-01-23 06:06] LABS: Bedside Glucose 139 mg/dL (74-106)
--- NOTE | 2022-01-23 06:29 | PCM.HP.BLA ---
History and Physical Date of Admission: 01/23/22 MAYCO KENDRICK, is a 81 M who presents to the office today for Evaluation of esophageal reflux without esophagitis, esophageal obstruction. Mayco established with this clinic 10.30.21 with referral from his PCP. Presented to [facility] ED 07.15.21 for food bolus lodged in his esophagus which has happened before but has resolved without need for intervention; there was no need for acute intervention on this occasion. Continues to have difficulty with swallowing pills and some foods occurring 2-3 times a week for many years. EGD last performed around 2018 with normal results, but did have dilation with improvement. Additionally, he has difficulty with constipation with right sided abdominal pain on days that he feels more constipated. Reports BM most days of the week with use of Dulcolax for the last four years with continued need to strain because of decreased motility. Prior to this he was having a BM every four days. Additional history of prostate cancer s/p surgical removal, pancreatic mass (he was unaware of this diagnosis), s/p cholecystectomy 2019, DMII, pacemaker placement, colonic polyps, colonic diverticulosis, history of alcohol abuse, lung nodule. ROS Const Constitutional: No anorexia, fatigue, fever(s), weight change or sleep problems Eyes Eyes: No change in vision ENT ENT: No abnormal hearing, difficulty swallowing, mouth lesions, tongue swelling or throat swelling Resp Respiratory: No cough or shortness of breath Cardio Cardiology: No chest pain at rest, chest pain with exertion, shortness of breath or dyspnea on exertion Gastro GI: No difficulty swallowing Genitourinary Male: No difficulty urinating or burning urination Musc Musculoskeletal: No joint pain, joint swelling, muscle weakness or decreased muscle mass Skin Skin: No hair loss in leg, yellowing of the eye, itchy eyes, rash, skin ulcer or skin swelling Neuro Neurology: No abnormal hearing, abnormal movements, confusion, unsteady gait/balance or memory loss Psych Psychiatric: No anxiety, No confusion and No memory loss Endo Endocrine: No fatigue or weight change Aller/Imm Allergy/Immunologic: No itchy eyes, throat swelling or tongue swelling Jesus/Lymp Hematologic/Lymphatic: No easy bleeding, easy bruising or enlarged lymph nodes Exam Const General: cooperative and comfortable Nutritional Appearance: average body habitus and well nourished HENMT Head: normal to inspection Ears: hearing grossly normal bilaterally Nose: external nose normal Face and sinus: normal facial exam Mouth: oral mucosae normal Throat: posterior oropharynx normal Eyes General: appearance normal, both eyes and all related structures Neck Neck: normal visual inspection Chest Chest palpation & inspection: normal inspection of the chest and normal palpation of entire chest wall Resp Effort & Inspection: normal respiratory effort Auscultation: Bilateral: Clear to Auscultation Cardio Palpation: normal PMI Rate: regular rate Rhythm: regular rhythm GI Inspection: normal to inspection Auscultation: normal bowel sounds Percussion: normal to percussion Palpation: no hepatosplenomegaly Skin General: no rashes or lesions noted Neuro General: patient alert Extrem General: normal to inspection Psych Affect: normal affect Quality Reporting Tobacco Screening ([facility] 138) Smoking Status: Never smoker Assessment and Plan Assessment and Plan (1) Dysphagia: Status: Acute Plan - Dr. Guillermo Friend, DO: The differential diagnosis for esophageal dysphagia does include Schatzki's ring, extrinsic compression from his vertebral spine versus aortic arch versus left atrium into the esophagus. I do not see any signs of a hiatal hernia on his previous imaging. However he did not have oral contrast to allow for complete evaluation of esophagus or any twisting that may be happening while he is eating. He will undergo an upper endoscopy and we will look for something to improve his significant dry mouth. He was explained alternatives, risk, benefits including understanding bleeding, infection, sepsis, perforation, need for emergent . Have an ASA of 3. I have re-examined the patient. There are no clinical changes since date of exam.
--- NOTE | 2022-01-23 06:30 | EGD_PTH ---
PATIENT: LINCOLN KENDRICK LOC: EN U#:[id number] AGE/SX: 81/M ROOM: RE01/23/[address]: Dr. Eagle Domingo DO : 1940 BED: DIS: 01/23/2022 SPEC #: [id number] RECD: 01/23/22 12:35 STATUS: DORETHA JONNY #: [id number] CAROLINA: 01/23/22 06:[address]: Eagle Domingo DEPT: SURGICAL PATHOLOGY RECD BY: Romy Colon ENTERED: 01/23/22 13:10 SP TYPE: EGD BIOPSY NALDO DR: Dr. Bertrand Warner MD Tissues: A - Esophagus, NOS B - Stomach, NOS Procedures: Special Stain Group II Surgery Specimen Level IV Alcian Blue/PAS (control) HEADER OPERATION: EGD with cold snare, biopsies, gold probe, dilatation (MAC) PRE-OP DIAGNOSIS: Dysphagia TISSUE SUBMITTED: A ? Distal esophagus biopsy, B ? Lesser curvature polyp MICROSCOPIC DIAGNOSIS A. Distal esophagus, biopsy: Gastroesophageal junctional mucosa with chronic inflammation. Focal changes of reflux. No evidence of goblet cell metaplasia. See comment. B. Lesser curvature polyp, biopsy: Consistent with hyperplastic polyp, inflamed. AM:michael 01/26/2022 COMMENT A. Alcian blue/PAS stain with matched control supports the above diagnosis. MICROSCOPIC DESCRIPTION Slides are reviewed. GROSS DESCRIPTION A - Received in fixative is one container labeled with the patient's name and designated distal esophagus biopsy. The specimen consists of multiple irregular fragments of light claros soft tissue that in aggregate measure 1 x 0.3 x 0.1 cm. The specimen is totally submitted in one cassette. B - Received in fixative is one container labeled with the patient's name and designated lesser curvature polyp. The specimen consists of one irregular fragment of light claros soft tissue that measures 0.9 x 0.5 x 0.2 cm. The specimen is totally submitted in one cassette. / AM:michael 01/23/2022 TC:3 CPT: 94463 x2, 84128
--- NOTE | 2022-01-23 07:15 | OP.CCLET_ITS ---
05/26/2022 Bertrand Warner MD Re : Upper GI endoscopy procedure for Mayco Dela Cruz Dear Dr. Warner This procedure was performed on Sunday, January 23, 2022. My impressions and recommendations are as follows: Impressions : - LA Grade A reflux esophagitis. Biopsied. - Mild Schatzki ring. Dilated. - A single gastric polyp. Resected and retrieved. - A single gastric polyp. Treated with a heater probe. - Normal first portion of the duodenum. Recommendations : - Discharge patient to home. - Full liquid diet today. - No aspirin, ibuprofen, naproxen, or other non-steroidal anti-inflammatory drugs for 5 days after polyp removal. - Await pathology results. - Use Protonix (pantoprazole) 40 mg PO BID for 8 weeks. My findings are described in the full procedure note, which is enclosed. If I can be of further assistance, please feel free to contact me at . Sincerely, Eagle Domingo, 01/23/2022 7:14:37 AM This report has been signed electronically.
--- NOTE | 2022-01-23 07:15 | OP.EGD_ITS ---
Patient Name: Mayco Dela Cruz Procedure Date: 01/23/2022 6:34 AM Date of : 1940 Age: 81 Procedure: Upper GI endoscopy Indications: Dysphagia Providers: Eagle Domingo DO Medicines: Monitored Anesthesia Care Patient Profile: This is an 81 year old male. Refer to note in patient chart for documentation of history and physical. Patient has symptoms. Complications: No immediate complications. Procedure: Pre-Anesthesia Assessment: - Prior to the procedure, a History and Physical was performed, and patient medications and allergies were reviewed. The risks and benefits of the procedure and the sedation options and risks were discussed with the patient. All questions were answered and informed consent was obtained. Patient identification and proposed procedure were verified by the physician. Mental Status Examination: normal. Respiratory Examination: clear to auscultation. CV Examination: normal. Prophylactic Antibiotics: The patient does not require prophylactic antibiotics. Prior Anticoagulants: The patient has taken no previous anticoagulant or antiplatelet agents. After reviewing the risks and benefits, the patient was deemed in satisfactory condition to undergo the procedure. The anesthesia plan was to use minimal sedation / analgesia (anxiolysis). Immediately prior to administration of medications, the patient was re-assessed for adequacy to receive sedatives. The heart rate, respiratory rate, oxygen saturations, blood pressure, adequacy of pulmonary ventilation, and response to care were monitored throughout the procedure. The physical status of the patient was re-assessed after the procedure. After obtaining informed consent, the endoscope was passed under direct vision. Throughout the procedure, the patient's blood pressure, pulse, and oxygen saturations were monitored continuously. The gastroscope was introduced through the mouth, and advanced to the second part of duodenum. The upper GI endoscopy was accomplished without difficulty. The patient tolerated the procedure well. Scope In: 6:50:14 AM Scope Out: 7:06:05 AM Total Procedure Duration Time 0 hours 15 minutes 51 seconds Findings: LA Grade A (one or more mucosal breaks less than 5 mm, not extending between tops of 2 mucosal folds) esophagitis with no bleeding was found 38 to 39 cm from the incisors. Biopsies were taken with a cold forceps for histology. Verification of patient identification for the specimen was done. Estimated blood loss was minimal. A mild Schatzki ring was found in the lower third of the esophagus. A guidewire was placed and the scope was withdrawn. Dilation was performed with a Savary dilator with no resistance at 60 Fr. The dilation site was examined following endoscope reinsertion and showed moderate improvement in luminal narrowing. A single 9 mm sessile polyp with no bleeding and no stigmata of recent bleeding was found on the lesser curvature of the stomach. The polyp was removed with a hot snare. Resection and retrieval were complete. Verification of patient identification for the specimen was done. Estimated blood loss was minimal. A single 5 mm sessile polyp with bleeding and stigmata of recent bleeding was found on the lesser curvature of the stomach. Coagulation for hemostasis using heater probe was successful. Coagulation for destruction of remaining portion of lesion using heater probe was successful. Estimated blood loss was minimal. The first portion of the duodenum was normal. Impression: - LA Grade A reflux esophagitis. Biopsied. - Mild Schatzki ring. Dilated. - A single gastric polyp. Resected and retrieved. - A single gastric polyp. Treated with a heater probe. - Normal first portion of the duodenum. Recommendation: - Discharge patient to home. - Full liquid diet today. - No aspirin, ibuprofen, naproxen, or other non-steroidal anti-inflammatory drugs for 5 days after polyp removal. - Await pathology results. - Use Protonix (pantoprazole) 40 mg PO BID for 8 weeks. Procedure Code(s): --- Professional --- 50449, 59, Esophagogastroduodenoscopy, flexible, transoral; with control of bleeding, any method 93306, Esophagogastroduodenoscopy, flexible, transoral; with removal of tumor(s), polyp(s), or other lesion(s) by snare technique 30552, Esophagogastroduodenoscopy, flexible, transoral; with insertion of guide wire followed by passage of dilator(s) through esophagus over guide wire 38989, 59,51, Esophagogastroduodenoscopy, flexible, transoral; with biopsy, single or multiple CPT copyright 2017 [employer]. All rights reserved. The codes documented in this report are preliminary and upon entry level chemist review may be revised to meet current compliance requirements. Eagle Domingo DO 01/23/2022 7:14:37 AM This report has been signed electronically. Number of Addenda: 1 Note Initiated On: 01/23/2022 6:34 AM Addendum Number: 1 Addendum Date: 05/26/2022 6:29:48 AM MAC was used as sedation for this procedure. Eagle Domingo DO 05/26/2022 6:29:54 AM This report has been signed electronically.
--- NOTE | 2022-01-23 08:18 | SUR.PHASEII ---
ecchymotic raised area noted at iv site. site is not bleeding. instructed cg and patient to apply ice to site once home.
== END 2022-01-23 08:21 | disposition home or self-care (01) ==
LOC: EN 05:06 → AC 05:06
PROVIDERS: PCP Family Medicine; Referring Provider Family Medicine; Visit Provider Internal Medicine Gastroenterology
PROC: 0DJ08ZZ Inspection of Upper Intestinal Tract, Via Natural or Artificial Opening Endoscopic (ICD-10-PCS; CPT 43235; principal; 2022-01-23 06:25)
DX: K21.00 Gastro-esophageal reflux disease with esophagitis, without bleeding (principal); E11.9 Type 2 diabetes mellitus without complications; K22.2 Esophageal obstruction; K31.7 Polyp of stomach and duodenum; G47.30 Sleep apnea, unspecified; E78.5 Hyperlipidemia, unspecified; I10 Essential (primary) hypertension; Z95.0 Presence of cardiac pacemaker; Z79.82 Long term (current) use of aspirin; Z79.899 Other long term (current) drug therapy; Z79.84 Long term (current) use of oral hypoglycemic drugs; Z95.1 Presence of aortocoronary bypass graft
CPT/HCPCS: 43248; 43255; 43251; 43239; 82962; 88305; 88313; J7120; C1769

== ENCOUNTER → 2022-04-24 | Outpatient (CLI) | payer MEDICARE, MEDICAID, SELFPAY ==
--- NOTE | 2022-04-24 08:15 | CT_ITS ---
STUDY: CT ABDOMEN AND PELVIS WITH CONTRAST REASON FOR EXAM: Male, 81 years old. Lower abd pain, constipation -- oral and iv. History of prostate cancer. RADIATION DOSAGE (If Supplied By Facility): CTDIvol = ( 46.81 ) mGy, DLP = ( 2010.81 ) mGycm TECHNIQUE: Transaxial images were obtained from the dome of the diaphragm to the symphysis pubis with oral contrast. Oral and IV Readi-CAT and 100mL Isovue-300 was administered. Sagittal and coronal images were reconstructed. Individualized dose optimization techniques were used for this CT. COMPARISON: Comparison is made with prior study dated 10/11/2015. FINDINGS: Tiny left pleural effusion with either early infiltrate or atelectasis at the left lung base. Prior CABG. A dual-chamber pacemaker is seen. Coronary artery calcification. There is decreased attenuation of the liver consistent with steatosis. Stable 1.5 cm cyst in the medial posterior aspect of the left lobe of the liver. The patient is status post cholecystectomy. Normal spleen. Normal pancreas. Normal bilateral adrenal glands. There is a 3.6 m cyst in the posterior lower pole of the right kidney. There is a 2 cm cyst in the posterior inferior pole of the left kidney. Normal visualized stomach. Normal small intestine. Moderate amount of fecal material is seen in the colon. The appendix is visualized and appears normal. There is diffuse atherosclerotic calcification of the abdominal aorta and its major visceral branches, without a demonstrated aneurysm. Normal inferior vena cava. Normal retroperitoneum. Normal urinary bladder. Normal abdominal wall. There are diffuse degenerative changes of the visualized lumbar spine. Beam hardening artifacts from the bilateral hip replacement causing limited visualization of the pelvic structures. CT/Abdomen/Pelvis WITH Contrast IMPRESSION: Fatty infiltration of the liver. Status post cholecystectomy. Stable bilateral renal cysts. BEAM hardening artifact due to bilateral hip replacements causing limited visualization of the pelvic structures. Electronically Signed: Christiano Odom MD at 11:25 EDT ,
[2022-04-24 08:41] LABS: CREATININE FINGERSTICK < 0.9 mg/dL (0.70-1.30); EGFR FINGERSTICK > 60.0000 mL/min (>60)
== END | disposition home or self-care (01) ==
LOC: CT 07:56
PROVIDERS: PCP Family Medicine; Referring Provider Nurse Practitioner Adult Health; Visit Provider Nurse Practitioner Adult Health
DX: Z01.812 Encounter for preprocedural laboratory examination (principal); R10.30 Lower abdominal pain, unspecified
CPT/HCPCS: 74177; Q9967

== ENCOUNTER 2022-05-07 19:32 | Emergency (ER) | payer MEDICARE, MEDICAID, SELFPAY ==
[2022-05-07 19:33] VITALS: BP 135/63; PULSE 61; RESP 22; TEMP 37; O2SAT 94; BMI 45.6
[2022-05-07 19:39] VITALS: BMI 45.6
--- NOTE | 2022-05-07 20:21 | EKG12_ITS ---
Test Reason : Blood Pressure : / mmHG Vent. Rate : 060 BPM Atrial Rate : 060 BPM P-R Int : 000 ms QRS Dur : 166 ms QT Int : 488 ms P-R-T Axes : 000 -53 111 degrees QTc Int : 488 ms Ventricular-paced rhythm Abnormal ECG Confirmed by LAURA MEEK, SHAR ([id number]), film editor MAGGIE LONG ([id number]) on 05/09/2022 9:34:08 AM Referred By: Confirmed By:SHAR SANCHEZ MD
[2022-05-07 20:32] VITALS: O2SAT 94
[2022-05-07] MEDS: 0.9% Normal Saline 1,000 ML 50 ML IV (20:32)
--- NOTE | 2022-05-07 20:33 | CT_ITS ---
STUDY: CT BRAIN WITHOUT CONTRAST REASON FOR EXAM: Male, 81 years old. headache RADIATION DOSAGE (If Supplied By Facility): CTDIvol = ( 44.99 ) mGy, DLP = ( 897.35 ) mGycm TECHNIQUE: Transaxial CT imaging of the brain was performed without administration of intravenous contrast material. Individualized dose optimization techniques were used for this CT. COMPARISON: CT brain noncontrast 02/14/2018 FINDINGS: Normal soft tissue structures. Normal calvarium. There is mild cerebral atrophy with widening of the extra-axial spaces and ventricular dilatation. There are areas of decreased attenuation within the white matter tracts of the supratentorial brain, consistent with microvascular disease changes. Normal basal ganglia and thalami. Normal brainstem. Normal cerebellum. There is no intracranial hemorrhage. There are no findings of an acute ischemic infarction. Normal visualized paranasal sinuses. The bilateral mastoid air cells and ossicles are unopacified. 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 CT/Brain/Head without Contrast IMPRESSION: Chronic involutional changes of the brain. There is no acute intracranial pathology. There is no significant interval change. Electronically Signed: Trupti Trinh MD at 21:06 EDT Reading Location ID and State: , Service support ,
--- NOTE | 2022-05-07 20:35 | EDS_ITS ---
HPI History of Present Illness Chief Complaint: Neuro S/Sx Narrative Narrative: Patient presents from assisted living at the suggestion of his RN for intermittent head pain and facial pain that he has been having for the last 4 days. He states it comes and goes and will completely resolve. When it comes it will last 30 minutes. He states that on the right side of his face extending down into his jaw. He denies any chest pain or shortness of breath. No fevers or chills. No other symptoms. He has multiple medical problems ranging from diabetes, hypertension, and chronic lymphedema. He denies any true exacerbating or alleviating factors to his facial pain. At times he will get blurred vision out of his right eye. He denies any paresthesias. [facility] Medical History Asthma Atrial fibrillation BiPAP (biphasic positive airway pressure) dependence Cancer Cardiology follow-up encounter Congestive heart failure (CHF) COPD (chronic obstructive pulmonary disease) Diabetes Dysphagia GERD (gastroesophageal reflux disease) Hyperlipemia Hypertension Non-smoker Pacemaker Pancreatic abnormality Shortness of breath on exertion Thyroid disease Uses wheelchair Wears glasses Home Medications aspirin 81 mg chewable tablet 81 mg PO DAILY HEALTH MAINTENANCE 06/09/13 [History Last Taken 01/20/22] nitroglycerin 0.4 mg sublingual tablet 0.4 mg sublingual Q5M PRN Chest Pain 06/09/13 [History Last Taken 10/17/16 09:00] magnesium oxide 400 mg (241.3 mg magnesium) tablet 400 mg PO DAILY MAGNESIUM 10/07/15 [History Last Taken 01/09/21] oxybutynin chloride 5 mg tablet 5 mg PO TID DYSURIA 01/27/16 [History Last Taken 01/09/21] metoprolol tartrate 25 mg tablet 25 mg PO BID HTN 05/08/16 [History Last Taken 01/23/22] furosemide 40 mg tablet 40 mg PO DAILY CHF 10/17/16 [History Last Taken 01/09/21] atorvastatin 80 mg tablet 80 mg PO QHS HLD 08/05/18 [History Last Taken 01/08/21] cholecalciferol (vitamin D3) 50 mcg (2,000 unit) capsule 2,000 unit PO DAILY SUPPLEMENT 11/24/19 [History Last Taken 01/09/21] fluticasone propionate 50 mcg/actuation nasal spray,suspension 2 spray NASAL DAILY ALLERGIES 11/24/19 [History Last Taken 01/09/21] montelukast 10 mg tablet 10 mg PO DAILY ALLERGIES 11/24/19 [History Last Taken 01/08/21] aluminum-mag hydroxide-simethicone 400 mg-400 mg-40 mg/5 mL oral susp (Mintox Maximum Strength) 20 ml PO Q6H PRN UPSET STOMACH 01/09/21 [History Last Taken 12/22/20] calcium carb-ergocalciferol (vit D2) 500 mg (1,250 mg)-200 unit tablet 1 tab PO DAILY SUPPLEMENT 01/09/21 [History Last Taken 01/09/21] glimepiride 4 mg tablet 4 mg PO BREAKFAST DM 01/09/21 [History Last Taken 01/09/21] metformin 500 mg tablet (Glucophage) 500 mg PO TID DM 01/09/21 [History Last Taken 01/09/21] mirtazapine 15 mg tablet 15 mg PO QHS 01/09/21 [History Last Taken 01/08/21] tamsulosin 0.4 mg capsule 0.4 mg PO QHS 01/09/21 [History Last Taken 01/08/21] benzonatate 100 mg capsule 200 mg PO TID PRN COUGH #30 caps 01/11/21 [Rx Last Taken Unknown] potassium chloride 20 mEq tablet,extended release 20 meq PO BID #60 tabs 01/11/21 [Rx Last Taken Unknown] budesonide-formoterol HFA 80 mcg-4.5 mcg/actuation aerosol inhaler (Symbicort) 2 puff inhalation BID 02/06/21 [History Last Taken 01/23/22] acetaminophen 500 mg tablet (Pharbetol) 1,000 mg PO Q8H PRN Pain 07/15/21 [History Last Taken Unknown] docusate sodium 100 mg capsule 100 mg PO BID 07/15/21 [History Last Taken Unknown] bisacodyl 10 mg rectal suppository (Dulcolax (bisacodyl)) 10 mg IN DAILY PRN Constipation 01/22/22 [History Last Taken Unknown] guaifenesin 100 mg/5 mL oral syrup 400 mg PO Q6H PRN Cough 01/22/22 [History Last Taken Unknown] ibuprofen 600 mg tablet 400 mg PO Q6H PRN Pain 01/22/22 [History Last Taken Unknown] meloxicam 7.5 mg tablet 7.5 mg PO DAILY 01/22/22 [History Last Taken Unknown] pantoprazole 40 mg tablet,delayed release See Rx Instructions .Route .COMPLEX #56 tabs 03/16/22 [Rx Last Taken Unknown] polyethylene glycol 3350 17 gram/dose oral powder (Gavilax) 17 g PO DAILY PRN Constipation #850 grams 04/20/22 [Rx Last Taken Unknown] Allergy/AdvReac Type Severity Reaction Status Date / Time lisinopril Allergy Unknown Verified 01/23/22 06:00 paroxetine [From Paxil] Allergy NEEDS Verified 01/23/22 06:00 FOLLOW-UP sertraline Allergy Unknown Verified 01/23/22 06:00 Surgical History History of bilateral hip arthroplasty History of cholecystectomy Hx of CABG Social History Smoking Status: Never smoker ROS ROS ED ROS Narrative Constitutional: No fever, no chills. HEENT: No sore throat. No neck pain. No loss of vision. No rhinorrhea. Right-sided facial pain. Intermittent blurred vision out of right eye. Cardiovascular: No chest pain. No palpitations. No pedal edema. Respiratory: No cough, no shortness of breath. Abdominal: No abdominal pain. No nausea. No vomiting. Genitourinary: No dysuria. No hematuria. Musculoskeletal: No myalgias. No arthralgias. Neurologic: Positive right-sided headaches. No dizziness. No lightheadedness. No paresthesias. Skin: No rash. No change in color. Psychiatric: No depression. No anxiety. EXAM Physical Exam Narrative Exam Narrative: Afebrile. Vital signs noted. HEENT: Normocephalic. Atraumatic. PERRL, EOMI. Neck soft and supple. No point tenderness or step off. Cardiovascular: Regular rate and rhythm. No murmurs, rubs, or gallops appreciated. Respiratory: No tachypnea. Lungs clear to auscultation bilaterally. Gastrointestinal: Abdomen soft, nontender, with normoactive bowel sounds. No rebound or guarding. Neurological: Awake. Alert. Nonfocal, nonlateralizing. Skin: No rash. No pallor. Chronic changes with lymphedema bilateral lower extremities. Musculoskeletal: No pedal edema. Full range of motion extremities. Const Vital Signs: 05/07/22 19:33 05/07/22 20:32 Temperature 98.6 F Temperature Source Oral Pulse Rate 61 Respiratory Rate 22 H Blood Pressure 135/63 H Blood Pressure Mean 87 Pulse Ox 94 94 Oxygen Delivery Method Room Air Room Air MDM MDM MDM Narrative Medical decision making narrative: Comprehensive work-up was pursued. Nursing protocol laboratories were obtained and are pending. I will obtain a CT of his brain. His EKG demonstrates a ventricular paced rhythm at 60 bpm without ectopy or acute ST changes. No STEMI. This was interpreted by myself. Chest x-ray interpreted by myself shows no acute process, no significant change from previous. Radiology confirms this. CT of the brain shows chronic involutional changes of the brain but no acute intracranial pathology. Patient has hypokalemia of 3.3 but he is on Lasix. I was going to order him potassium supplementation but he has history of esophageal stricture which is a contraindication to it. That may be why he is not supplemented with potassium as an outpatient. He states he feels improved. At this point in time, I am unsure as to the cause of his right-sided facial pain, but I do feel he can be discharged with follow-up to his primary care physician. He states he has an appointment next week. Do not feel that he m eets admission criteria or observation criteria. Return instructions to the emergency department were reviewed. Disposition is discharged home in stable condition. Lab Data Labs: Laboratory Results - last 24 hr 05/07/22 05/07/22 05/07/22 20:31 20:31 20:31 WBC 8.2 RBC 4.72 Hgb 13.6 Hct 42.4 MCV 89.8 MCH 28.8 MCHC 32.1 RDW Std Deviation 49.4 H RDW Coeff of Yue 15.1 H Plt Count 193 MPV 9.4 Immature Gran % (Auto) 0.400 Neut % (Auto) 64.2 Lymph % (Auto) 20.7 [place] % (Auto) 11.0 H Eos % (Auto) 3.1 Baso % (Auto) 0.6 Absolute Neuts (auto) 5.2 Absolute Lymphs (auto) 1.69 Nucleated RBC % 0 PT 15.1 H INR 1.2 APTT 33.9 Sodium 141 Potassium 3.3 L Chloride 103 Carbon Dioxide 30.0 Anion Gap 8 BUN 20 H Creatinine 0.84 Estim Creat Clear Calc 72.42 Est GFR (MDRD) Af Amer 113 Est GFR (MDRD) Non-Af 93 BUN/Creatinine Ratio 23.8 H Glucose 100 Calcium 9.1 Radiography Diagnostic Testing: Clinical Impression(s) from Imaging Studies Brain CT 05/07/22 20:33 IMPRESSION: Chronic involutional changes of the brain. There is no acute intracranial pathology. There is no significant interval change. Electronically Signed: Trupti Trinh MD at 21:06 EDT Reading Location ID and State: , Service support , Chest X-Ray 05/07/22 20:44 IMPRESSION: Postsurgical changes, left greater than right hazy parenchymal opacification seen to a similar degree on previous examination. Combination of effusions and/or airspace disease as on previous exam. Indeterminate cardiac size. Electronically Signed: Trupti Trinh MD at 21:12 EDT Reading Location ID and State: , Service support , Discharge Plan Triage Chief Complaint: Neuro S/Sx ED Provider: Channing Cho Dx/Rx/DC Orders Clinical Impression: Right sided facial pain, Head pain, Hypokalemia Instructions: ED Hypokalemia, ED Pain, Acute, Uncertain Cause Prescriptions: No Action nitroglycerin 0.4 MG tablet 0.4 mg sublingual Q5M PRN (Reason: Chest Pain) Label Comments: CHEST aspirin 81 MG tablet,chewable 81 mg PO DAILY Label Comments: HEART HEALTH magnesium oxide 400 MG tablet 400 mg PO DAILY Label Comments: MAGNESIUM SUPPLEMENT oxybutynin chloride 5 MG tablet 5 mg PO TID metoprolol tartrate 25 MG tablet 25 mg PO BID furosemide 40 MG tablet 40 mg PO DAILY atorvastatin 80 MG tablet 80 mg PO QHS montelukast 10 MG tablet 10 mg PO DAILY fluticasone propionate 1 SPRAY spray,suspension 2 spray NASAL DAILY cholecalciferol (vitamin D3) 2,000 UNIT capsule 2,000 unit PO DAILY metformin [Glucophage] 500 mg tablet 500 mg PO TID tamsulosin 0.4 mg Capsule 0.4 mg PO QHS mirtazapine 15 mg Tablet 15 mg PO QHS glimepiride 4 mg Tablet 4 mg PO BREAKFAST alum-mag hydroxide-simeth [Mintox Maximum Strength] 400-400-40 mg/5 mL Suspension 20 ml PO Q6H PRN (Reason: UPSET STOMACH) calcium carbonate-vitamin D2 500 mg(1,250mg) -200 unit Tablet 1 tab PO DAILY benzonatate 100 mg Capsule 200 mg PO TID PRN (Reason: COUGH) Qty: 30 0RF potassium chloride 20 mEq tablet extended release 20 meq PO BID Qty: 60 0RF budesonide-formoterol [Symbicort] 80-4.5 mcg/actuation Hfa Aerosol Inhaler 2 puff INHALATION BID acetaminophen [Pharbetol] 500 mg Tablet 1,000 mg PO Q8H PRN (Reason: Pain) docusate sodium 100 MG capsule 100 mg PO BID meloxicam 7.5 mg Tablet 7.5 mg PO DAILY bisacodyl [Dulcolax (bisacodyl)] 10 mg Suppository 10 mg IN DAILY PRN (Reason: Constipation) ibuprofen 600 mg tablet 400 mg PO Q6H PRN (Reason: Pain) Siltussin 100 mg/5 mL Syrup 400 mg PO Q6H PRN (Reason: Cough) pantoprazole 40 mg tablet,delayed release (DR/EC) See Rx Instructions .ROUTE .COMPLEX Qty: 56 0RF Dose Instruction: TAKE 1 TABLET BY MOUTH TWICE A DAY Rx Instructions: TAKE 1 TABLET BY MOUTH TWICE A DAY polyethylene glycol 3350 [Gavilax] 17 gram/dose powder 17 g PO DAILY PRN (Reason: Constipation) Qty: 850 2RF Primary Care Provider: Bertrand Warner Referrals: Bertrand Warner MD [Primary Care Provider] - 3-5 Days if not improving Disposition Disposition: Home, Self Care
[2022-05-07 20:41] LABS: Absolute Lymphocyte Count 1.69 X10^3/uL (0.83-4.51); Absolute Neutrophil Count 5.2 X10^3/uL (2.0-7.7); Basophil# 0.05 X10^3/uL; Basophil% 0.6 % (0-1); Eosinophil# 0.25 X10^3/uL; Eosinophils% 3.1 % (0-5); Hematocrit 42.4 % (40-54); Hemoglobin 13.6 g/dL (13.0-16.5); Lymphocyte # 1.69 X10^3/ul (0.83-4.51); Lymphocyte % 20.7 % (19-41); Mean Corp Hgb Conc 32.1 g/dL (32-36); Mean Corpuscular Hgb 28.8 pg (27.0-32.0); Mean Corpuscular Volume 89.8 fL (80-94); Mean Platelet Vol. 9.4 fl (6.2-12.0); NRBC Flagged by Analyzer 0 % (0-5); Neutrophil # 5.24 X10^3/uL (2.7-7.7); Neutrophil % 64.2 % (47-70); Platelet Count 193 K/mm3 (150-450); RBC Distribution Width CV 15.1 % (11.6-14.6); RBC Distribution Width SD 49.4 fl (35.1-43.9); Red Blood Count 4.72 M/mm3 (4.6-6.2); White Blood Count 8.2 K/mm3 (4.4-11.0)
--- NOTE | 2022-05-07 20:44 | RAD_ITS ---
STUDY: X-RAY CHEST REASON FOR EXAM: Male, 81 years old. Stroke TECHNIQUE: Single AP portable view of the chest. 2 images COMPARISON: 01/09/2021 FINDINGS: There is a multilead permanent pacemaker. Stable left greater than right mid and lower lung parenchymal opacification obscuring the left cardiac contour, mild hazy opacification right mid and lower lung parenchyma. Persistent opacification left hemidiaphragm. Sternal cerclage wires and vascular clips are present from a prior sternotomy and coronary artery bypass graft procedure (CABG). . Normal visualized pulmonary arteries. Obscured aortic arch and descending thoracic aorta. The spine and upper abdominal soft tissues are obscured. There is degenerative osteoarthritis of the bilateral shoulders. RAD/Chest 1 View (Portable) IMPRESSION: Postsurgical changes, left greater than right hazy parenchymal opacification seen to a similar degree on previous examination. Combination of effusions and/or airspace disease as on previous exam. Indeterminate cardiac size. Electronically Signed: Trupti Trinh MD at 21:12 EDT Reading Location ID and State: , Service support ,
[2022-05-07 20:49] LABS: International Normalized Ratio 1.2; Prothrombin Time (Protime)PT. 15.1 SECONDS (11.7-14.9)
[2022-05-07 20:50] LABS: Partial Thromboplast Time 33.9 Seconds (24.1-36.2)
[2022-05-07 20:54] LABS: Anion Gap 8 (5-15); BUN 20 mg/dL (7-18); BUN/Creat Ratio 23.8 RATIO (10-20); Calcium,Total 9.1 mg/dL (8.5-10.1); Chloride 103 mmol/L (98-107); Creatinine, Serum 0.84 mg/dL (0.70-1.30); EST Glomerular Filtration Rate 93 mL/min (>60); Est Glom Filt Rate - Afr Amer 113 mL/min (>60); Estimated Creatinine Clearance 72.42 ml/min; Glucose 100 mg/dL (74-106); Potassium 3.3 mmol/L (3.5-5.1); Sodium Level 141 mmol/L (136-145)
--- NOTE | 2022-05-07 23:02 | ED.RN ---
Patient offered a taxi- states he absolutely cannot sit in the back of a car and pt. does not qualify for a squad to return home. Rebeca jazlyn lazo called and aid states she will try and call an ad operations associate nurse to see if she can get him a van.
--- NOTE | 2022-05-07 23:45 | ED.RN ---
[facility] unable to come get patient, pt. updated he will have to stay until morning when wheelchair van can pick him up. Pt. updated and agreeable to plan, meal and drink given, remote given. Call light at bedside.
[2022-05-08 07:06] VITALS: BP 138/52; PULSE 70; RESP 16; O2SAT 92
== END 2022-05-08 08:27 | disposition home or self-care (01) ==
PROVIDERS: Emergency Provider Emergency Medicine; PCP Family Medicine; Visit Provider Emergency Medicine
DX: R51.9 Headache, unspecified (principal); J44.9 Chronic obstructive pulmonary disease, unspecified; I11.0 Hypertensive heart disease with heart failure; I50.9 Heart failure, unspecified; E11.9 Type 2 diabetes mellitus without complications; I89.0 Lymphedema, not elsewhere classified; E87.6 Hypokalemia; E78.5 Hyperlipidemia, unspecified
CPT/HCPCS: 70450; 71045; 80048; 85025; 85610; 85730; 93005; 99285

== ENCOUNTER 2022-11-13 14:29 | Inpatient (IN) | payer MEDICARE, MEDICAID, SELFPAY ==
[2022-11-13] VITALS (13 sets, daily range): BP systolic 108–149; BP diastolic 52–95; PULSE 60–74; RESP 13–18; TEMP 35.5–37; O2SAT 93–98; BMI 45.8; BMI 45.3
--- NOTE | 2022-11-13 16:00 | ED.VIS.CHEST ---
HPI <RETA Raya - Last Filed: 11/13/22 19:50> History of Present Illness Chief Complaint: Chest Pain Narrative Narrative: 82-year-old male with PMH of HTN, HLD, DM2, GERD, CABG x2, 1 cardiac stent, CHF, EDMOND, A-fib presents with chest pain that occurred at 1 AM while he was lying in bed. It was in the left side of his chest radiating down his left arm to the elbow. It felt like a pressure. He rolled onto his right side and it went away and when he rolled to the left again it reoccurred. He states he is not sure how long it lasted but he fell asleep. He has had no pain today at all. He has been able to walk without symptoms. There was never any shortness of breath, nausea or vomiting, or diaphoresis. He follows with a three knife trimmer named Dr. Franklin in [place] and states he had a stress test showing reversible ischemia on 10/30. He is scheduled to have a cardiac catheterization on 11/17. PFS <RETA Raya - Last Filed: 11/13/22 19:50> [facility] Medical History (Reviewed 10/15/22 @ 14:57 by Rupa Monique CHEMICAL INSTRUMENTATION OFFICER, CHEMICAL INSTRUMENTATION OFFICER-C) Asthma Atrial fibrillation BiPAP (biphasic positive airway pressure) dependence Cancer Cardiology follow-up encounter Congestive heart failure (CHF) COPD (chronic obstructive pulmonary disease) Diabetes Dysphagia GERD (gastroesophageal reflux disease) Hyperlipemia Hypertension Non-smoker Pacemaker Pancreatic abnormality Shortness of breath on exertion Thyroid disease Uses wheelchair Wears glasses Home Medications aspirin 81 mg chewable tablet 81 mg PO DAILY HEALTH MAINTENANCE 06/09/13 [History Last Taken 01/20/22] nitroglycerin 0.4 mg sublingual tablet 0.4 mg sublingual Q5M PRN Chest Pain 06/09/13 [History Last Taken 10/17/16 09:00] magnesium oxide 400 mg (241.3 mg magnesium) tablet 400 mg PO DAILY MAGNESIUM 10/07/15 [History Last Taken 01/09/21] oxybutynin chloride 5 mg tablet 5 mg PO TID DYSURIA 01/27/16 [History Last Taken 01/09/21] metoprolol tartrate 25 mg tablet 25 mg PO BID HTN 05/08/16 [History Last Taken 01/23/22] furosemide 40 mg tablet 80 mg PO DAILY CHF 10/17/16 [History Last Taken 01/09/21] atorvastatin 80 mg tablet 80 mg PO QHS HLD 08/05/18 [History Last Taken 01/08/21] cholecalciferol (vitamin D3) 50 mcg (2,000 unit) capsule 2,000 unit PO DAILY SUPPLEMENT 11/24/19 [History Last Taken 01/09/21] fluticasone propionate 50 mcg/actuation nasal spray,suspension 2 spray NASAL DAILY ALLERGIES 11/24/19 [History Last Taken 01/09/21] montelukast 10 mg tablet 10 mg PO DAILY ALLERGIES 11/24/19 [History Last Taken 01/08/21] aluminum-mag hydroxide-simethicone 400 mg-400 mg-40 mg/5 mL oral susp (Mintox Maximum Strength) 20 ml PO Q6H PRN UPSET STOMACH 01/09/21 [History Last Taken 12/22/20] calcium carb-ergocalciferol (vit D2) 500 mg (1,250 mg)-200 unit tablet 1 tab PO DAILY SUPPLEMENT 01/09/21 [History Last Taken 01/09/21] glimepiride 4 mg tablet 4 mg PO BREAKFAST DM 01/09/21 [History Last Taken 01/09/21] metformin 500 mg tablet (Glucophage) 500 mg PO TID DM 01/09/21 [History Last Taken 01/09/21] mirtazapine 15 mg tablet 15 mg PO QHS 01/09/21 [History Last Taken 01/08/21] tamsulosin 0.4 mg capsule 0.4 mg PO QHS 01/09/21 [History Last Taken 01/08/21] benzonatate 100 mg capsule 200 mg PO TID PRN COUGH #30 caps 01/11/21 [Rx Last Taken Unknown] potassium chloride 20 mEq tablet,extended release 20 meq PO BID #60 tabs 01/11/21 [Rx Last Taken Unknown] budesonide-formoterol HFA 80 mcg-4.5 mcg/actuation aerosol inhaler (Symbicort) 2 puff inhalation BID 02/06/21 [History Last Taken 01/23/22] acetaminophen 500 mg tablet (Pharbetol) 1,000 mg PO Q8H PRN Pain 07/15/21 [History Last Taken Unknown] docusate sodium 100 mg capsule 100 mg PO BID 07/15/21 [History Last Taken Unknown] bisacodyl 10 mg rectal suppository (Dulcolax (bisacodyl)) 10 mg FL DAILY PRN Constipation 01/22/22 [History Last Taken Unknown] guaifenesin 100 mg/5 mL oral syrup 400 mg PO Q6H PRN Cough 01/22/22 [History Last Taken Unknown] ibuprofen 600 mg tablet 400 mg PO Q6H PRN Pain 01/22/22 [History Last Taken Unknown] meloxicam 7.5 mg tablet 7.5 mg PO DAILY 01/22/22 [History Last Taken Unknown] polyethylene glycol 3350 17 gram/dose oral powder (Gavilax) 17 g PO DAILY PRN Constipation #850 grams 04/20/22 [Rx Last Taken Unknown] pantoprazole 40 mg tablet,delayed release See Rx Instructions .Route .COMPLEX #56 tabs 06/02/22 [Rx Last Taken Unknown] plecanatide 3 mg tablet (Trulance) 3 mg PO DAILY #90 tabs 08/12/22 [Rx Last Taken Unknown] Allergy/AdvReac Type Severity Reaction Status Date / Time lisinopril Allergy Unknown Verified 11/13/22 14:30 paroxetine [From Paxil] Allergy NEEDS Verified 11/13/22 14:30 FOLLOW-UP sertraline Allergy Unknown Verified 11/13/22 14:30 Surgical History History of bilateral hip arthroplasty History of cholecystectomy Hx of CABG Social History Smoking Status: Never smoker ROS <RETA Raya - Last Filed: 11/13/22 19:50> ROS ED ROS Narrative Constitutional: Negative for fever, chills, malaise. ENT: Negative for sore throat, ear pain, rhinorrhea. CVS: Positive for chest pain. Negative for palpitations, syncope. Respiratory: Negative for shortness of breath, cough, orthopnea. GI: Negative for abdominal pain, nausea, vomiting, melena, hematochezia. Neuro: Negative for headache. Musc: Negative for joint pain, swelling. EXAM <RETA Raya - Last Filed: 11/13/22 19:50> Physical Exam Narrative Exam Narrative: CONST: Patient sitting in no acute distress. EYES: Normal inspection. NECK: Normal inspection. RESP: No respiratory distress, CTAB. CVS: Regular rate and rhythm, no murmur, no gallop. ABD: Soft and nontender, no guarding or rebound, nondistended. SKIN: Color normal, no rash, warm, dry, intact. EXTREMITIES: Normal appearance, no pedal edema. NEURO: Oriented x4. PSYCH: Normal affect. Const Vital Signs: 11/13/22 14:30 11/13/22 16:20 11/13/22 16:23 Temperature 95.9 F L Temperature Source Temporal Pulse Rate 74 65 Respiratory Rate 18 13 Respiratory Effort Respiratory Pattern Blood Pressure 108/70 138/57 H Blood Pressure Mean 82 84 Pulse Ox 93 95 Oxygen Delivery Method Room Air Room Air Room Air 11/13/22 16:25 11/13/22 18:00 11/13/22 18:27 Temperature Temperature Source Pulse Rate 62 60 Respiratory Rate 16 Respiratory Effort Normal Non-Labored Respiratory Pattern Normal Blood Pressure 116/71 127/52 H Blood Pressure Mean 86 Pulse Ox 93 Oxygen Delivery Method Room Air 11/13/22 19:10 Temperature 98 F Temperature Source Temporal Pulse Rate 65 Respiratory Rate 17 Respiratory Effort Respiratory Pattern Blood Pressure 114/71 Blood Pressure Mean 85 Pulse Ox 95 Oxygen Delivery Method Room Air <Dr. Abhiejet Treadwell, DO - Last Filed: 11/13/22 21:01> Physical Exam Const Vital Signs: 11/13/22 14:30 11/13/22 16:20 11/13/22 16:23 Temperature 95.9 F L Temperature Source Temporal Pulse Rate 74 65 Respiratory Rate 18 13 Respiratory Effort Respiratory Pattern Blood Pressure 108/70 138/57 H Blood Pressure Mean 82 84 Pulse Ox 93 95 Oxygen Delivery Method Room Air Room Air Room Air 11/13/22 16:25 11/13/22 18:00 11/13/22 18:27 Temperature Temperature Source Pulse Rate 62 60 Respiratory Rate 16 Respiratory Effort Normal Non-Labored Respiratory Pattern Normal Blood Pressure 116/71 127/52 H Blood Pressure Mean 86 Pulse Ox 93 Oxygen Delivery Method Room Air 11/13/22 19:10 Temperature 98 F Temperature Source Temporal Pulse Rate 65 Respiratory Rate 17 Respiratory Effort Respiratory Pattern Blood Pressure 114/71 Blood Pressure Mean 85 Pulse Ox 95 Oxygen Delivery Method Room Air MDM <RETA Raya - Last Filed: 11/13/22 19:50> [facility] Narrative Medical decision making narrative: Presents with an episode of chest pain that occurred while lying in bed at 1 AM. He has had no pain since and has been up and moving today. He appears well and nontoxic with normal vital signs. His medical exam is benign. EKG shows ventricular paced rhythm at 64 bpm with no acute ischemic changes. It is unchanged from previous. CBC, BMP overall unremarkable. Glucose 151 with normal anion gap. Troponin is 16 and delta is 19. Patient developed chest pressure while here and repeat EKG is unchanged and he was treated with Nitropaste. I suspect patient is having unstable angina and should get a cardiac catheterization sooner than later. He was also only scheduled for diagnostic one at [place] and they do not do therapeutic ones there. I called [facility] where his three knife trimmer has privileges but they have no beds available. I spoke with Dr. Linares here and he is comfortable keeping the patient here with plan to cath him on Wednesday. Case discussed with the hospitalist for admission. Differential: STEMI, NSTEMI, unstable angina Consults: Case discussed with three knife trimmer and hospitalist External records reviewed: Documentation from 10/30/2022 at [facility] showed a high risk nuclear stress test result concerning for LAD ischemia. Symptoms suggestive of stable angina with markedly abnormal stress test recommended proceeding with a diagnostic heart catheterization. Lab Data Attestation: I reviewed the patient's lab results. Labs: Laboratory Results - last 24 hr 11/13/22 11/13/22 11/13/22 16:12 16:12 18:25 WBC 8.5 RBC 4.73 Hgb 13.4 Hct 42.3 MCV 89.4 MCH 28.3 MCHC 31.7 L RDW Std Deviation 52.1 H RDW Coeff of Yue 15.9 H Plt Count 199 MPV 9.1 Immature Gran % (Auto) 0.700 Neut % (Auto) 71.8 H Lymph % (Auto) 12.8 L [place] % (Auto) 11.6 H Eos % (Auto) 2.5 Baso % (Auto) 0.6 Absolute Neuts (auto) 6.1 Absolute Lymphs (auto) 1.08 Nucleated RBC % 0 Sodium 133 L Potassium 4.2 Chloride 100 Carbon Dioxide 29.0 Anion Gap 4 L BUN 19 H Creatinine 0.91 Estim Creat Clear Calc 69.88 Est GFR (MDRD) Af Amer 102 Est GFR (MDRD) Non-Af 85 BUN/Creatinine Ratio 20.8 H Glucose 151 H Calcium 8.9 Troponin I High Sens 16 19 Radiography Diagnostic Testing: Clinical Impression(s) from Imaging Studies Chest X-Ray 11/13/22 16:15 IMPRESSION: No acute cardiopulmonary disease or major interval change. Electronically Signed: Mayco Talbot DO at 16:38 EDT Reading Location ID and State: [address] [place] [address] Tel [phone], Service support , ED attending interpretation of chest x-ray shows normal heart size, no acute infiltrate or effusion. EKG Initial EKG: Attestation: I personally reviewed and interpreted this EKG as follows: Interpretation: No Acute Injury Pattern Comments: Ventricular paced rhythm at 64 bpm, no acute ST segment changes <Dr. Abhijeet Treadwell DO - Last Filed: 11/13/22 21:01> [facility] Narrative Medical decision making narrative: Presents with an episode of chest pain that occurred while lying in bed at 1 AM. He has had no pain since and has been up and moving today. He appears well and nontoxic with normal vital signs. His medical exam is benign. EKG shows ventricular paced rhythm at 64 bpm with no acute ischemic changes. It is unchanged from previous. CBC, BMP overall unremarkable. Glucose 151 with normal anion gap. Troponin is 16 and delta is 19. Patient developed chest pressure while here and repeat EKG is unchanged and he was treated with Nitropaste. I suspect patient is having unstable angina and should get a cardiac catheterization sooner than later. He was also only scheduled for diagnostic one at [place] and they do not do therapeutic ones there. I called [facility] where his three knife trimmer has privileges but they have no beds available. I spoke with Dr. Linares here and he is comfortable keeping the patient here with plan to cath him on Wednesday. Case discussed with the hospitalist for admission. Differential: STEMI, NSTEMI, unstable angina Consults: Case discussed with three knife trimmer and hospitalist External records reviewed: Documentation from 10/30/2022 at [facility] showed a high risk nuclear stress test result concerning for LAD ischemia. Symptoms suggestive of stable angina with markedly abnormal stress test recommended proceeding with a diagnostic heart catheterization. This patient was seen with a PA/CHEMICAL INSTRUMENTATION OFFICER Individually assessed they patient including history and physical. I have reviewed everything on the chart that is available and agree with the documentation provided by the PA/CHEMICAL INSTRUMENTATION OFFICER including discussion about the assessment, treatment plan, discussion, and return precautions. Patient ultimately had a chest pain work-up which was unremarkable however he had a recent stress test which was markedly abnormal. We were able to look this up on [facility]. After discussing this with Dr. Linares he initially recommended transfer because the patient could not be cathed until Wednesday. We did attempt to transfer the patient to [facility] and they do not have any bed availability. He was called back and amenable to admission. Patient mid to the hospitalist in stable condition. Lab Data Labs: Laboratory Results - last 24 hr 11/13/22 11/13/22 11/13/22 16:12 16:12 18:25 WBC 8.5 RBC 4.73 Hgb 13.4 Hct 42.3 MCV 89.4 MCH 28.3 MCHC 31.7 L RDW Std Deviation 52.1 H RDW Coeff of Yue 15.9 H Plt Count 199 MPV 9.1 Immature Gran % (Auto) 0.700 Neut % (Auto) 71.8 H Lymph % (Auto) 12.8 L [place] % (Auto) 11.6 H Eos % (Auto) 2.5 Baso % (Auto) 0.6 Absolute Neuts (auto) 6.1 Absolute Lymphs (auto) 1.08 Nucleated RBC % 0 Sodium 133 L Potassium 4.2 Chloride 100 Carbon Dioxide 29.0 Anion Gap 4 L BUN 19 H Creatinine 0.91 Estim Creat Clear Calc 69.88 Est GFR (MDRD) Af Amer 102 Est GFR (MDRD) Non-Af 85 BUN/Creatinine Ratio 20.8 H Glucose 151 H Calcium 8.9 Troponin I High Sens 16 19 Radiography Diagnostic Testing: Clinical Impression(s) from Imaging Studies Chest X-Ray 11/13/22 16:15 IMPRESSION: No acute cardiopulmonary disease or major interval change. Electronically Signed: Mayco Talbot DO at 16:38 EDT Reading Location ID and State: [facility] / [place] Tel [phone], Service support , Discharge Plan Disposition Disposition: Acute Care Hospital [facility] Discharge Date/Time: 11/13/22 20:28
--- NOTE | 2022-11-13 16:01 | EKG12_ITS ---
Test Reason : SOB/LEFT ARM PAIN Blood Pressure : / mmHG Vent. Rate : 064 BPM Atrial Rate : 057 BPM P-R Int : 000 ms QRS Dur : 160 ms QT Int : 462 ms P-R-T Axes : 000 -48 105 degrees QTc Int : 476 ms Ventricular-paced rhythm Abnormal ECG Confirmed by LAURA MEEK, SHAR ([id number]), editorial manager LEIGH CABA ([id number]) on 11/16/2022 2:16:14 PM Referred By: EMILY/MYRTLE Confirmed By:SHAR SANCHEZ MD
--- NOTE | 2022-11-13 16:15 | RAD_ITS ---
STUDY: X-RAY CHEST REASON FOR EXAM: Male, 82 years old. Chest pain last night, now absent. Constant chest pressure. Hypertension. Glucose of 244. Increasing weakness. TECHNIQUE: Single AP portable view of the chest. COMPARISON: May 07, 2022. FINDINGS: Stable cardiac pacemaker. The lungs are hypoexpanded. There is mild interstitial changes at the lung bases most marked on the left which appears stable. Surgical clips are seen in the region of the left hilum. A left pleural effusion/pleural thickening cannot be ruled out. Sternal cerclage wires are present from a prior sternotomy. The heart is enlarged. Normal mediastinum and tj. Normal visualized pulmonary arteries. Normal visualized aortic arch and descending thoracic aorta. The thoracic spine is obscured by the mediastinum. Normal visualized ribs, clavicles, and shoulders. There is no demonstrated abnormality of the visualized soft tissue structures of the upper abdomen. RAD/Chest 1 View (Portable) IMPRESSION: No acute cardiopulmonary disease or major interval change. Electronically Signed: Mayco Talbot DO at 16:38 EDT ,
[2022-11-13 16:19] LABS: Absolute Lymphocyte Count 1.08 X10^3/uL (0.83-4.51); Absolute Neutrophil Count 6.1 X10^3/uL (2.0-7.7); Basophil# 0.05 X10^3/uL; Basophil% 0.6 % (0-1); Eosinophil# 0.21 X10^3/uL; Eosinophils% 2.5 % (0-5); Hematocrit 42.3 % (40-54); Hemoglobin 13.4 g/dL (13.0-16.5); Lymphocyte # 1.08 X10^3/ul (0.83-4.51); Lymphocyte % 12.8 % (19-41); Mean Corp Hgb Conc 31.7 g/dL (32-36); Mean Corpuscular Hgb 28.3 pg (27.0-32.0); Mean Corpuscular Volume 89.4 fL (80-94); Mean Platelet Vol. 9.1 fl (6.2-12.0); Monocyte# 0.98 X10^3/uL; Monocyte% 11.6 % (0-10); NRBC Flagged by Analyzer 0 % (0-5); Neutrophil # 6.07 X10^3/uL (2.7-7.7); Neutrophil % 71.8 % (47-70); Platelet Count 199 K/mm3 (150-450); RBC Distribution Width CV 15.9 % (11.6-14.6); RBC Distribution Width SD 52.1 fl (35.1-43.9); Red Blood Count 4.73 M/mm3 (4.6-6.2); White Blood Count 8.5 K/mm3 (4.4-11.0)
[2022-11-13] MEDS: Aspirin 81 MG TAB.CHEW 324 MG PO (16:20)
[2022-11-13 16:50] LABS: Anion Gap 4 (5-15); BUN 19 mg/dL (7-18); BUN/Creat Ratio 20.8 RATIO (10-20); Calcium,Total 8.9 mg/dL (8.5-10.1); Chloride 100 mmol/L (98-107); Creatinine, Serum 0.91 mg/dL (0.70-1.30); EST Glomerular Filtration Rate 85 mL/min (>60); Est Glom Filt Rate - Afr Amer 102 mL/min (>60); Estimated Creatinine Clearance 69.88 ml/min; Glucose 151 mg/dL (74-106); Potassium 4.2 mmol/L (3.5-5.1); Sodium Level 133 mmol/L (136-145); Troponin-I HS (w/2H Reflex) 16 pg/mL (3.0-78.0)
--- NOTE | 2022-11-13 17:45 | EKG12_ITS ---
Test Reason : REPEAT Blood Pressure : / mmHG Vent. Rate : 067 BPM Atrial Rate : 060 BPM P-R Int : 000 ms QRS Dur : 154 ms QT Int : 458 ms P-R-T Axes : 000 -48 104 degrees QTc Int : 483 ms Ventricular-paced rhythm Abnormal ECG Confirmed by SHAR SANCHEZ MD ([id number]), scientific editor LEIGH CABA ([id number]) on 11/16/2022 2:16:28 PM Referred By: Confirmed By:SHAR SANCHEZ MD
[2022-11-13 18:16] LABS: Reflex Troponin-HS? (from REC) Y
[2022-11-13] MEDS: Nitroglycerin SL (ED/IMG/CATH) 0.4 MG TABLET SL (18:27)
[2022-11-13 18:55] LABS: Troponin-I HS 19 pg/mL (3.0-78.0)
--- NOTE | 2022-11-13 19:30 | PCM.HP.STD ---
HPI - General General Date of Admission: 11/13/22 Date of Service: 11/13/22 Chief Complaint: Chest pain HPI Narrative The patient is an 82 y/o M w/ PMHx: Asthma/COPD with allergic rhinitis, EDMOND on BIPAP, CAD s/p PCI x 1 and CABG x 2, GERD, HTN, HLD, CHF unclear type, Hypothyroidism, Diabetes mellitus type II, BPH, Anxiety and Depression, Hx complete HB s/p pacemaker who presents to the [facility] ED on 11/13/22 with history of onset chest discomfort occurring approximately 1 AM while he was lying in bed specifically left-sided with the chest discomfort described as pressure-like in sensation with radiation to his left arm although it seemed to resolve when he rolled onto his right side with recurrence again when he would turn onto the left although it seemed to improve and he was able to fall asleep with porting his discomfort at its worse initially 10 of 10 in severity prompting eventual ED evaluation. Patient reports that he did have a recent stress test per his mixed signal design engineer in [place] Dr. Chavez that demonstrated reversible ischemia on 10/30/2022 with planned upcoming cardiac catheterization on 11/17/2022 but again given his atypical pain prompted ED evaluation. In the ED nitroglycerin sublingual administered with some improvement in his discomfort therefore discussed with ED staff and requested that nitroglycerin paste be placed and upon hospitalist evaluation patient is complete resolution of pain. Work-up in the ED included T95.9, heart rate 61, BP 123/66, respiratory rate 18, 93% on room air, CBC with WC 8.5, hemoglobin 13.4, platelet 199 without marked shift, BMP with sodium 133, BUN/creatinine 19/0.91, glucose 151, troponin initial 16 with repeat delta 19, EKG was sinus rhythm with no acute evidence of ischemia with repeat chest x-ray upon chest pain resolution similar and unchanged with no acute evidence of ischemia. In the ED patient ministered aspirin full-strength 324 mg p.o. x1 and as noted sublingual nitroglycerin x1 with then transition to paste given improvement. ED staff did discuss case with on-call mixed signal design engineer who recommended admission and planned cardiac catheterization on Wednesday. [facility] Medical History Asthma Atrial fibrillation BiPAP (biphasic positive airway pressure) dependence Cancer Cardiology follow-up encounter Congestive heart failure (CHF) COPD (chronic obstructive pulmonary disease) Diabetes Dysphagia GERD (gastroesophageal reflux disease) Hyperlipemia Hypertension Non-smoker Pacemaker Pancreatic abnormality Shortness of breath on exertion Thyroid disease Uses wheelchair Wears glasses Home Medications aspirin 81 mg chewable tablet 81 mg PO DAILY HEALTH MAINTENANCE 06/09/13 [History Last Taken 01/20/22] nitroglycerin 0.4 mg sublingual tablet 0.4 mg sublingual Q5M PRN Chest Pain 06/09/13 [History Last Taken 10/17/16 09:00] magnesium oxide 400 mg (241.3 mg magnesium) tablet 400 mg PO DAILY MAGNESIUM 10/07/15 [History Last Taken 01/09/21] oxybutynin chloride 5 mg tablet 5 mg PO TID DYSURIA 01/27/16 [History Last Taken 01/09/21] metoprolol tartrate 25 mg tablet 25 mg PO BID HTN 05/08/16 [History Last Taken 01/23/22] furosemide 40 mg tablet 80 mg PO DAILY CHF 10/17/16 [History Last Taken 01/09/21] atorvastatin 80 mg tablet 80 mg PO QHS HLD 08/05/18 [History Last Taken 01/08/21] cholecalciferol (vitamin D3) 50 mcg (2,000 unit) capsule 2,000 unit PO DAILY SUPPLEMENT 11/24/19 [History Last Taken 01/09/21] fluticasone propionate 50 mcg/actuation nasal spray,suspension 2 spray NASAL DAILY ALLERGIES 11/24/19 [History Last Taken 01/09/21] montelukast 10 mg tablet 10 mg PO DAILY ALLERGIES 11/24/19 [History Last Taken 01/08/21] aluminum-mag hydroxide-simethicone 400 mg-400 mg-40 mg/5 mL oral susp (Mintox Maximum Strength) 20 ml PO Q6H PRN UPSET STOMACH 01/09/21 [History Last Taken 12/22/20] calcium carb-ergocalciferol (vit D2) 500 mg (1,250 mg)-200 unit tablet 1 tab PO DAILY SUPPLEMENT 01/09/21 [History Last Taken 01/09/21] glimepiride 4 mg tablet 4 mg PO BREAKFAST DM 01/09/21 [History Last Taken 01/09/21] metformin 500 mg tablet (Glucophage) 500 mg PO TID DM 01/09/21 [History Last Taken 01/09/21] mirtazapine 15 mg tablet 15 mg PO QHS 01/09/21 [History Last Taken 01/08/21] tamsulosin 0.4 mg capsule 0.4 mg PO QHS 01/09/21 [History Last Taken 01/08/21] benzonatate 100 mg capsule 200 mg PO TID PRN COUGH #30 caps 01/11/21 [Rx Last Taken Unknown] potassium chloride 20 mEq tablet,extended release 20 meq PO BID #60 tabs 01/11/21 [Rx Last Taken Unknown] budesonide-formoterol HFA 80 mcg-4.5 mcg/actuation aerosol inhaler (Symbicort) 2 puff inhalation BID 02/06/21 [History Last Taken 01/23/22] acetaminophen 500 mg tablet (Pharbetol) 1,000 mg PO Q8H PRN Pain 07/15/21 [History Last Taken Unknown] docusate sodium 100 mg capsule 100 mg PO BID 07/15/21 [History Last Taken Unknown] bisacodyl 10 mg rectal suppository (Dulcolax (bisacodyl)) 10 mg [place] DAILY PRN Constipation 01/22/22 [History Last Taken Unknown] guaifenesin 100 mg/5 mL oral syrup 400 mg PO Q6H PRN Cough 01/22/22 [History Last Taken Unknown] ibuprofen 600 mg tablet 400 mg PO Q6H PRN Pain 01/22/22 [History Last Taken Unknown] meloxicam 7.5 mg tablet 7.5 mg PO DAILY 01/22/22 [History Last Taken Unknown] polyethylene glycol 3350 17 gram/dose oral powder (Gavilax) 17 g PO DAILY PRN Constipation #850 grams 04/20/22 [Rx Last Taken Unknown] pantoprazole 40 mg tablet,delayed release See Rx Instructions .Route .COMPLEX #56 tabs 06/02/22 [Rx Last Taken Unknown] plecanatide 3 mg tablet (Trulance) 3 mg PO DAILY #90 tabs 08/12/22 [Rx Last Taken Unknown] Allergy/AdvReac Type Severity Reaction Status Date / Time lisinopril Allergy Unknown Verified 11/13/22 14:30 paroxetine [From Paxil] Allergy NEEDS Verified 11/13/22 14:30 FOLLOW-UP sertraline Allergy Unknown Verified 11/13/22 14:30 Family History (Updated 11/13/22 @ 21:[address] Magdalena Grace MD) Mother Lung cancer Father CAD (coronary artery disease) Hypertension Heart disease Myocardial infarction Brother Myocardial infarction Hypertension Heart disease CAD (coronary artery disease) Surgical History (Updated 11/13/22 @ 21:[address] Magdalena Grace MD) Coronary angioplasty status History of bilateral hip arthroplasty History of cholecystectomy Hx of CABG Social History (Updated 11/13/22 @ 21:[address] Magdalena Grace MD) housing: assisted living facility Smoking Status: Never smoker alcohol intake: never substance use type: does not use ROS ROS Narrative Admission Review of Systems: CONSTITUTIONAL: No weight loss, fever, chills, + weakness or fatigue. HEENT: Eyes: No visual loss, blurred vision, double vision or yellow sclerae. Ears, Nose, Throat: No hearing loss, sneezing, congestion, runny nose or sore throat. SKIN: + BL LE chronic stasis disease changes. CARDIOVASCULAR: + chest pain, chest pressure or chest discomfort, chronic BL LE edema. No palpitations, orthopnea, syncopal events. RESPIRATORY: No shortness of breath, cough or sputum, wheezing, hemoptysis. GASTROINTESTINAL: No anorexia, nausea, vomiting or diarrhea, abdominal pain, melena, BRBPR. GENITOURINARY: No dysuria, frequency, urgency or retention. NEUROLOGICAL: No headache, dizziness, syncope, paralysis, ataxia, numbness or tingling in the extremities, focal weakness, change in bowel or bladder control, seizure. MUSCULOSKELETAL: + muscle, back pain, joint pain or stiffness. HEMATOLOGIC: + Easy bleeding or bruising. LYMPHATICS: No enlarged nodes. No history of splenectomy. PSYCHIATRIC: + history of depression or anxiety. ENDOCRINOLOGIC: No reports of sweating, cold or heat intolerance. No polyuria or polydipsia. ALLERGIES: + history of asthma, rhinitis. Vital Signs Vital Signs Vital Signs: 11/13/22 14:30 11/13/22 16:20 11/13/22 16:23 Temperature 95.9 F L Temperature Source Temporal Pulse Rate 74 65 Respiratory Rate 18 13 Respiratory Effort Respiratory Pattern Blood Pressure 108/70 138/57 H Blood Pressure Mean 82 84 Pulse Ox 93 95 Oxygen Delivery Method Room Air Room Air Room Air 11/13/22 16:25 11/13/22 18:00 11/13/22 18:27 Temperature Temperature Source Pulse Rate 62 60 Respiratory Rate 16 Respiratory Effort Normal Non-Labored Respiratory Pattern Normal Blood Pressure 116/71 127/52 H Blood Pressure Mean 86 Pulse Ox 93 Oxygen Delivery Method Room Air 11/13/22 19:10 Temperature 98 F Temperature Source Temporal Pulse Rate 65 Respiratory Rate 17 Respiratory Effort Respiratory Pattern Blood Pressure 114/71 Blood Pressure Mean 85 Pulse Ox 95 Oxygen Delivery Method Room Air Weight Weight: 338 lb 6.553 oz Body Mass Index (BMI) 45.8 Physical Exam Narrative Physical Examination: General: Awake, alert, oriented x 3 and cooperative, seated upright in the ED bed, notes resolution of his chest discomfort, nitroglycerin paste in place. Skin: Normal color, normal turgor, no icterus, no cyanosis except for notable bilateral lower extremity venous stasis skin changes HEENT: AT/NC, EOMI, PERRLA, MMM, no carotid bruits or JVD noted; however, very thickened neck makes evaluation difficult. Lungs: Diminished, greater bases, proper effort, no rales, ronchi or wheezing. Heart: Currently regular rate and rhythm; no gallop, rub audible, + SM. Abdomen: Soft, morbidly obese, NTTP, no obvious distention or HSM but habitus makes evaluation difficult, distant normal BS. Extremities: No cyanosis, no clubbing, bilateral lower extremity chronic distal pitting edema and venous stasis skin changes Neurological: Patient awake, alert, oriented as noted, cognitive function intact; pupils equally reactive to light and accommodation, cranial nerves II-XII grossly normal, moving all 4 extremities, no focal deficits, strength mildly to moderately global decrease secondary to acute presentation, improving. Psychiatric: Affect appears fatigued otherwise normal, no acute evidence of depressive or anxiety feelings but does have underlying history. Results Lab / Micro Data Result Diagrams: 11/13/22 16:12 11/13/22 16:12 Labs: Laboratory Results - last 24 hr 11/13/22 16:12: WBC 8.5, RBC 4.73, Hgb 13.4, Hct 42.3, MCV 89.4, MCH 28.3, MCHC 31.7 L, RDW Std Deviation 52.1 H, RDW Coeff of Yue 15.9 H, Plt Count 199, MPV 9.1, Immature Gran % (Auto) 0.700, Neut % (Auto) 71.8 H, Lymph % (Auto) 12.8 L, Garden % (Auto) 11.6 H, Eos % (Auto) 2.5, Baso % (Auto) 0.6, Absolute Neuts (auto) 6.1, Absolute Lymphs (auto) 1.08, Nucleated RBC % 0 11/13/22 16:12: Sodium 133 L, Potassium 4.2, Chloride 100, Carbon Dioxide 29.0, Anion Gap 4 L, BUN 19 H, Creatinine 0.91, Estim Creat Clear Calc 69.88, Est GFR (MDRD) Af Amer 102, Est GFR (MDRD) Non-Af 85, BUN/Creatinine Ratio 20.8 H, Glucose 151 H, Calcium 8.9, Troponin I High Sens 16 11/13/22 18:25: Troponin I High Sens 19 Radiology Impression Chest X-Ray 11/13/22 16:15 IMPRESSION: No acute cardiopulmonary disease or major interval change. Electronically Signed: Mayco Talbot DO at 16:38 EDT Reading Location ID and State: [address] [place] [address] Tel [phone], Service support , Assessment & Plan Assessment/Plan (1) Angina pectoris, unstable: PLAN: Plan The patient is an 82 y/o M w/ PMHx: Asthma/COPD with allergic rhinitis, EDMOND on BIPAP, CAD s/p PCI x 1 and CABG x 2, GERD, HTN, HLD, CHF unclear type, Hypothyroidism, Diabetes mellitus type II, BPH, Anxiety and Depression, Hx complete HB s/p pacemaker who presents to the [facility] ED on 11/13/22 with history of onset chest discomfort occurring approximately 1 AM while he was lying in bed specifically left-sided with the chest discomfort described as pressure-like in sensation with radiation to his left arm although it seemed to resolve when he rolled onto his right side with recurrence again when he would turn onto the left although it seemed to improve and he was able to fall asleep with porting his discomfort at its worse initially 10 of 10 in severity prompting eventual ED evaluation. #1. Chest pain secondary to Unstable Angina: EKG in ED x2 with sinus rhythm with no acute evidence of ischemia, CXR w/ no acute cardiopulmonary findings, initial trop 16 with repeat delta 19. Will admit to PCU, place on a monitored bed to assure no acute myocardial infarction with serial cardiac enzymes and EKGs. We will plan initiation of judicious hydration Wednesday evening for planned cardiac catheterization Wednesday per Dr. Linares. Given improvement of chest discomfort with nitroglycerin sublingual regimen requested ED initiate nitroglycerin paste, will continue. FLP in AM. Magnesium level requested. Continue cardiology consultation. ASA, morphine. #2. CAD: Status post PCI and CABG, as noted patient with recent cardiac stress testing per his mixed signal design engineer which demonstrated reversible ischemia on 10/30/2022 with initial plan for upcoming 11/17/2022 cardiac catheterization however given presentation continue plan as noted above #1, continue aspirin, statin, metoprolol, not on CIELO inhibitor/ARB. #3. Chronic CHF, unclear specific type: Patient reports underlying CHF history, last echocardiogram in the system noted 01/10/2021 with EF 55%, no evidence of any diastolic dysfunction at that point, trivial MVI, bicuspid aortic valve present, continue aspirin, statin, metoprolol, Lasix, not on CIELO inhibitor/ARB. Will judiciously hydrate prior to cardiac catheterization. #4. PAF: Patient not chronically anticoagulated per current list, will continue home metoprolol regimen. #5. Chronic COPD/asthma with allergic rhinitis: Will hold home inhalers and in the interim transition to ATC budesonide therapy, PRN albuterol, HOB, IS parameters, continue patient home Singulair and fluticasone regimen. #6. Diabetes mellitus type II: Hold oral home regimen, ADA diet, accu checks w/ ISS. #7. Anxiety and depression: We will continue patient home mirtazapine regimen #8. Hypertension: Continue home regimen including Toprol, Lasix, PRN hydralazine. #9. Hyperlipidemia: Continue home statin regimen. AM FLP. #10. History complete heart block: Status post pacemaker placement. #11. Morbid Obesity: Weight loss and lifestyle changes encouraged. #12. Chronic bilateral lower extremity venous stasis disease: We will continue patient home wraps #13. GERD: We will continue patient on PPI. #14. BPH: We will continue patient on Flomax regimen. #15. EDMOND: BiPAP nightly. #16. DVT prophylaxis: Lovenox. #17. CODE status: Patient HCPOA is Armaan his brother and living will is currently in place. Discussed CODE status at length including difference between FULL code, DNR-CCA and DNR-CC status. Following discussions about the differences in these status, requested Full Code status. Advanced Care Planning Face to Face Time: 16 minutes. Admission Evaluation Time spent evaluating chart, patient history, patient evaluation, care planning and discussion with specialists: 60 minutes. Charges/Coding Visit Charges Inpatient E&M: 67953 Init Hosp L2 Procedures Hospitalists Procedures: 65728 Advncd Care Plan 30 Min
[2022-11-13] MEDS: Nitroglycerin Oint 1 INCH PACKET 0.5 INCH TD ×2 (19:40→22:59)
--- NOTE | 2022-11-13 20:51 | EKG12_ITS ---
Test Reason : CP ADMIT Blood Pressure : / mmHG Vent. Rate : 060 BPM Atrial Rate : 088 BPM P-R Int : 000 ms QRS Dur : 158 ms QT Int : 494 ms P-R-T Axes : 000 -47 095 degrees QTc Int : 494 ms Ventricular-paced rhythm Abnormal ECG When compared with ECG of 13-NOV-2022 17:55, MANUAL COMPARISON REQUIRED, DATA IS UNCONFIRMED Confirmed by LAURA MEEK, SHAR ([id number]), writer editor LEIGH CABA ([id number]) on 11/17/2022 9:08:18 AM Referred By: Confirmed By:SHAR SANCHEZ MD
[2022-11-13 21:13] LABS: Magnesium 1.9 mg/dL (1.6-2.6)
[2022-11-13] MEDS: Tamsulosin HCl 0.4 MG Capsule PO (22:33)
[2022-11-13] MEDS: Docusate Sodium 100 MG Capsule PO (22:33)
[2022-11-13] MEDS: Oxybutynin 5 MG Tablet PO (22:33)
[2022-11-13] MEDS: Potassium Chloride Oral Tablet 20 MEQ PO (22:34)
[2022-11-13] MEDS: Atorvastatin Calcium 80 MG Tablet PO (22:35)
[2022-11-13] MEDS: Pantoprazole Sodium 40 MG Tablet PO (22:37)
[2022-11-13] MEDS: Mirtazapine 15 MG Tablet PO (22:38)
[2022-11-13] MEDS: Metoprolol Tartrate 25 MG Tablet PO (22:39)
[2022-11-13 22:51] LABS: Troponin-I HS 20 pg/mL (3.0-78.0)
[2022-11-13] MEDS: Insulin Lispro 100 UNIT/ML INSULN.PEN SC (22:57)
[2022-11-14] VITALS (9 sets, daily range): BP systolic 129–148; BP diastolic 59–72; PULSE 57–72; RESP 15–20; TEMP 36.3–36.9; O2SAT 93–96; BMI 45.1
[2022-11-14 00:15] LABS: Bedside Glucose 164 mg/dL (74-106)
--- NOTE | 2022-11-14 01:47 | NURSING ---
Emergency charting in effect miles. 11/13-11/14
--- NOTE | 2022-11-14 03:48 | CPS ---
Set up V60 for pt use with a nasal mask, pt was dissatisfied. wanted it off and said he will just wear nasal O2. This RT even offered to set up a sleep lab machine for pt comfort. He said no thank you. RN notified.
[2022-11-14 06:23] LABS: Absolute Lymphocyte Count 1.37 X10^3/uL (0.83-4.51); Absolute Neutrophil Count 5.9 X10^3/uL (2.0-7.7); Basophil# 0.06 X10^3/uL; Basophil% 0.7 % (0-1); Eosinophil# 0.32 X10^3/uL; Eosinophils% 3.7 % (0-5); Hematocrit 40.3 % (40-54); Lymphocyte # 1.37 X10^3/ul (0.83-4.51); Lymphocyte % 15.9 % (19-41); Mean Corp Hgb Conc 32.3 g/dL (32-36); Mean Corpuscular Hgb 28.8 pg (27.0-32.0); Mean Corpuscular Volume 89.2 fL (80-94); Mean Platelet Vol. 9.7 fl (6.2-12.0); Monocyte# 0.97 X10^3/uL; Monocyte% 11.3 % (0-10); NRBC Flagged by Analyzer 0 % (0-5); Neutrophil # 5.87 X10^3/uL (2.7-7.7); Neutrophil % 68.1 % (47-70); Platelet Count 196 K/mm3 (150-450); RBC Distribution Width SD 52.4 fl (35.1-43.9); Red Blood Count 4.52 M/mm3 (4.6-6.2); White Blood Count 8.6 K/mm3 (4.4-11.0)
[2022-11-14] MEDS: Insulin Lispro 100 UNIT/ML INSULN.PEN SC ×4 (06:50→21:18)
[2022-11-14] MEDS: Nitroglycerin Oint 1 INCH PACKET 0.5 INCH TD (06:52)
[2022-11-14] MEDS: Oxybutynin 5 MG Tablet PO ×3 (06:54→21:18)
[2022-11-14 06:59] LABS: ALB/GLOB Ratio 0.7 RATIO (0.9-2.4); AST(SGOT) 22 U/L (15-37); Alanine Aminotransfer ALT/SGPT 26 U/L (16-61); Albumin, Serum 2.7 g/dL (3.2-5.0); Alkaline Phosphatase 86 U/L (45-117); Anion Gap 5 (5-15); BUN 16 mg/dL (7-18); BUN/Creat Ratio 21.2 RATIO (10-20); Calcium,Total 8.7 mg/dL (8.5-10.1); Chloride 101 mmol/L (98-107); Cholesterol 96 mg/dL (200); Creatinine, Serum 0.76 mg/dL (0.70-1.30); EST Glomerular Filtration Rate 105 mL/min (>60); Est Glom Filt Rate - Afr Amer 127 mL/min (>60); Estimated Creatinine Clearance 63.59 ml/min; Glucose 129 mg/dL (74-106); High Density Lipoprotein 31 mg/dL; Potassium 4.1 mmol/L (3.5-5.1); Protein, Total 6.7 g/dL (6.4-8.2); Sodium Level 133 mmol/L (136-145); Triglycerides 105 mg/dL; Very Low Density Lipoprotein 21 mg/dL (5-40)
[2022-11-14] MEDS: Budesonide Respules 0.5 MG/2 ML AMPUL.NEB. INHALATION ×2 (07:02→19:35)
[2022-11-14] MEDS: Docusate Sodium 100 MG Capsule PO ×2 (08:25→21:18)
[2022-11-14] MEDS: Magnesium Chloride 64 MG Delay Rel.Tablet 128 MG PO (08:25)
[2022-11-14] MEDS: Potassium Chloride Oral Tablet 20 MEQ PO (08:25)
[2022-11-14] MEDS: Furosemide 40 MG Tablet 80 MG PO (08:26)
[2022-11-14] MEDS: Montelukast 10 MG Tablet PO (08:26)
[2022-11-14] MEDS: Aspirin 81 MG TAB.CHEW PO (08:26)
[2022-11-14] MEDS: Metoprolol Tartrate 25 MG Tablet PO ×2 (08:26→21:19)
[2022-11-14] MEDS: Pantoprazole Sodium 40 MG Tablet PO ×2 (08:27→21:19)
[2022-11-14] MEDS: Fluticasone 0.05% 1 SPRAY NASAL.SRY 2 SPRAY NASAL (08:27)
--- NOTE | 2022-11-14 08:50 | PN.HOSP_ITS ---
Reason for Visit Reason for Visit: Diagnoses Unstable angina (11/13/22) Follow-up for unstable angina. Objective Data Objective Data Vital Signs: Vital Signs Temp Pulse Resp BP Pulse Ox O2 Del Method O2 Flow Rate 97.3 F L 62 16 133/65 H 96 Room Air 2 11/14/22 06:44 11/14/22 08:26 11/14/22 07:02 11/14/22 08:26 11/14/22 07:02 11/14/22 08:32 11/14/22 07:02 Oxygen Flow Rate (L/min) 2 Oxygen Delivery Method Room Air Weight: 332 lb 7.313 oz Body Mass Index (BMI) 45.1 Intake & Output: Intake and Output for Last 24 Hours 11/12/22 11/13/22 11/14/22 23:59 23:59 23:59 Intake Total 420 / 420 Balance 420 / 420 Lab / Micro Data Result Diagrams: 11/14/22 05:34 11/14/22 05:34 Labs: Laboratory Results - last 24 hr 11/13/22 16:12: WBC 8.5, RBC 4.73, Hgb 13.4, Hct 42.3, MCV 89.4, MCH 28.3, MCHC 31.7 L, RDW Std Deviation 52.1 H, RDW Coeff of Yue 15.9 H, Plt Count 199, MPV 9.1, Immature Gran % (Auto) 0.700, Neut % (Auto) 71.8 H, Lymph % (Auto) 12.8 L, Wilson % (Auto) 11.6 H, Eos % (Auto) 2.5, Baso % (Auto) 0.6, Absolute Neuts (auto) 6.1, Absolute Lymphs (auto) 1.08, Nucleated RBC % 0 11/13/22 16:12: Sodium 133 L, Potassium 4.2, Chloride 100, Carbon Dioxide 29.0, Anion Gap 4 L, BUN 19 H, Creatinine 0.91, Estim Creat Clear Calc 69.88, Est GFR (MDRD) Af Amer 102, Est GFR (MDRD) Non-Af 85, BUN/Creatinine Ratio 20.8 H, Glucose 151 H, Calcium 8.9, Troponin I High Sens 16 11/13/22 18:25: Troponin I High Sens 19 11/13/22 18:25: Magnesium 1.9 11/13/22 22:21: Troponin I High Sens 20 11/13/22 22:31: POC Glucose 164 H 11/14/22 05:34: WBC 8.6, RBC 4.52 L, Hgb 13.0, Hct 40.3, MCV 89.2, MCH 28.8, MCHC 32.3, RDW Std Deviation 52.4 H, RDW Coeff of Yue 16.0 H, Plt Count 196, MPV 9.7, Immature Gran % (Auto) 0.300, Neut % (Auto) 68.1, Lymph % (Auto) 15.9 L, Wilson % (Auto) 11.3 H, Eos % (Auto) 3.7, Baso % (Auto) 0.7, Absolute Neuts (auto) 5.9, Absolute Lymphs (auto) 1.37, Nucleated RBC % 0 11/14/22 05:34: Sodium 133 L, Potassium 4.1, Chloride 101, Carbon Dioxide 27.0, Anion Gap 5, BUN 16, Creatinine 0.76, Estim Creat Clear Calc 63.59, Est GFR (MDRD) Af Amer 127, Est GFR (MDRD) Non-Af 105, BUN/Creatinine Ratio 21.2 H, Glucose 129 H, Calcium 8.7, Total Bilirubin 0.90, AST 22, ALT 26, Alkaline Phosphatase 86, Total Protein 6.7, Albumin 2.7 L, Globulin 4.0, Albumin/Globulin Ratio 0.7 L, Triglycerides 105, Cholesterol 96, LDL Cholesterol 44, VLDL Cholesterol 21, HDL Cholesterol 31 L Radiography Diagnostic Testing: Radiology Impression Chest X-Ray 11/13/22 16:15 IMPRESSION: No acute cardiopulmonary disease or major interval change. Electronically Signed: Mayco Talbot DO at 16:38 EDT Reading Location ID and State: [address] [place] [address] Tel [phone], Service support , Physical Exam Narrative Seen and examined. Patient does not have chest discomfort tightness or shortness of breath now. History of double bypass with cardiac stenting 1998. Patient stated he is allergic to enoxaparin and bleeding risk with warfarin. General: Alert, Oriented x3, Cooperative, morbid obesity BMI 45.1 Kd prescribed. HEENT: Atraumatic, PERRLA, EOMI, Normocephalic Oral: No Gingival or Mucosal Lesions/ Ulcerations Neck: Supple, No JVD, Negative Carotid Bruits Lungs: Air entry diminished in bilateral lung bases. No crepitation/rhonchi Cardiovascular: Right upper chest pacemaker. Regular rate, Regular Rhythm, Normal S1, Normal S2, No murmurs Abdomen: Bowel Sounds Present, Soft, Non Tender, Non-Distended : No renal angle tenderness. No suprapubic tenderness. Extremities: Bilateral edema, chronic, Capillary Refill Less than 3 Seconds Skin: Chronic venous changes of great depigmentation. No open ulcer or weeping. Musculoskeletal: No Tenderness to Palpation of Joints or Extremities Neurological: Cranial nerves II-XII grossly intact, DTR 2+/4 and Symmetrical, Neuro grossly intact Psych/Mental Status: Normal Affect, Appropriate. Assessment & Plan Assessment/Plan (1) Angina pectoris, unstable: PLAN: Plan The patient is an 82 y/o M with left shoulder and then chest discomfort started at 1 AM while he was sleeping which persisted for some time with radiation to left arm is admitted with working diagnosis of unstable angina. The patient is being admitted in PCU #1. Atypical chest discomfort secondary to Unstable Angina: Patient had serial troponin enzymes which are negative. Twelve-lead EKG shows ventricular paced rhythm. Repeat EKG shows no change. Prior to that patient had positive, abnormal nuclear stress test , concerning LAD ischemia on 10/30/2022 at [facility] and then is scheduled for cardiac cath but they do not have the bed therefore admitted here pool lifeguard is consulted. On Nitropatch, aspirin, metoprolol and morphine as needed. Dr. Linares is consulted #2. CAD: Status post PCI and CABG: As mentioned above. Patient has allergy with lisinopril. #3. Chronic CHF, unclear specific type: Patient reports underlying CHF history, last echocardiogram in the system noted 01/10/2021 with EF 55%, no evidence of any diastolic dysfunction at that point, trivial MVI, bicuspid aortic valve present, continue aspirin, statin, metoprolol, Lasix, not on CIELO inhibitor/ARB. Will judiciously hydrate prior to cardiac catheterization. #4. PAF: Patient not chronically anticoagulated per current list, will continue home metoprolol regimen. #5. Chronic COPD/asthma with allergic rhinitis: Will hold home inhalers and in the interim transition to ATC budesonide therapy, PRN albuterol, HOB, IS parameters, continue patient home Singulair and fluticasone regimen. #6. Diabetes mellitus type II: Hold oral home regimen, ADA diet, accu checks w/ ISS. #7. Anxiety and depression: continue patient home mirtazapine regimen #8. Hypertension: Continue home regimen including Toprol, Lasix, PRN hydralazine. #9. Hyperlipidemia: Continue home statin regimen. AM FLP. #10. History complete heart block: Status post pacemaker placement. #11. Morbid Obesity: Weight loss and lifestyle changes encouraged. #12. Chronic bilateral lower extremity venous stasis disease: We will continue patient home wraps #13. GERD: We will continue patient on PPI. #14. BPH: We will continue patient on Flomax regimen. #15. EDMOND: BiPAP nightly. #16. DVT prophylaxis: Lovenox. #17. CODE status: Patient NICOLAS is Armaan his brother and living will is currently in place. Discussed CODE status at length including difference between FULL code, DNR-CCA and DNR-CC status. Clinical Impression(s) from Imaging Studies Chest X-Ray 11/13/22 16:15 IMPRESSION: No acute cardiopulmonary disease or major interval change. Charges/Coding Visit Charges Inpatient E&M: 69239 Subs Hosp L2
[2022-11-14 09:35] LABS: Bedside Glucose 163 mg/dL (74-106)
[2022-11-14] MEDS: Spironolactone 25 MG Tablet PO (10:25)
[2022-11-14] MEDS: Nystatin Powder 15gm Bottle 1 APPLIC TOPICAL ×2 (10:25→21:19)
[2022-11-14 11:40] LABS: Bedside Glucose 181 mg/dL (74-106)
--- NOTE | 2022-11-14 13:21 | CASEMGMT ---
JANEEN CM: In-network Tertiary Facilities: [facility], [facility], [facility] and [facility], Krishna Lovett RN CM
--- NOTE | 2022-11-14 14:09 | ECHOCS_ITS ---
Version 3 Reason For Study: CAD- CABG Procedure This was a 2D Doppler, Color Flow transthoracic echocardiogram. The study was technically difficult. Exam performed portable in patient room. Left Ventricle Normal LV size. Mild concentric left ventricular hypertrophy. Left ventricular systolic function is normal. The estimated ejection fraction is 60 %. No regional wall motion abnormalities noted. Right Ventricle Normal RV size. ICD or pacer leads identified within the right ventricle. Normal systolic function. Atria Normal left atrium. Normal right atrium. Tricuspid Valve Normal tricuspid valve. Mild (1+) tricuspid valve insufficiency. Pulmonary artery systolic pressure is 28 mmHg. Medication Diluted definity 2ml given slow IV push to enhance endocardial definition. MMode/2D Measurements & Calculations LVIDd: 5.6 cm IVSd: 1.2 cm Ao root diam: 3.0 cm LVIDs: 4.2 cm LVPWd: 1.4 cm FS: 24.5 % LA dimension(2D): 6.1 cm Doppler Measurements & Calculations MV E max romaine: 98.4 cm/sec Ao V2 max: 87.0 cm/sec LV V1 max: 76.6 cm/sec Ao max P.0 mmHg LV V1 max P.4 mmHg PA V2 max: 100.3 cm/sec TR max romaine: 243.3 cm/sec PA V2 mean: 69.1 cm/sec TR max P.7 mmHg ECHO/Echo Complete W/ Contrast Interpretation Summary Normal LV size. Left ventricular systolic function is normal. The estimated ejection fraction is 60 %. Mild concentric left ventricular hypertrophy. Pulmonary artery systolic pressure is 28 mmHg. Contrast injection was performed. Ordering Physician: David Cox Referring Physician: Bertrand Warner Performed By: Aracelis Zaman RCS
[2022-11-14] MEDS: Clopidogrel Bisulfate 75 MG Tablet PO (14:46)
[2022-11-14] MEDS: Isosorbide Mononitrate 30 MG Tablet PO (14:46)
--- NOTE | 2022-11-14 14:50 | CON.PCM.CA_ITS ---
Assessment & Plan Assessment/Plan (1) Angina pectoris, unstable: (2) HLD (hyperlipidemia): (3) Obstructive sleep apnea: (4) Morbid obesity: (5) S/P CABG x 2: PLAN: 82-year-old patient Seen and evaluated today at bedside along with the nursing staff and discussed with the medical team Evidently patient recently had a stress test done outside facility/which is abnormal Patient came to the ER here at the [facility] had symptoms of shortness of breath and describe also pressure and heaviness in the chest. Had extensive cardiac history 1998 patient has CABG x2 and I noted they harvested the left radial artery He denies any history of myocardial infarction at that time Subsequently in 23 Dec 1999 he had a PCI stent according to the cart appear to be in the left circumflex artery/stented He is known to have history of hyperlipidemia. History of a pacemaker right-sided as the patient is left-handed Other medical problem include history of diabetes mellitus, hypertension, esophageal stricture, history of congestive heart failure and obstructive sleep apnea and hyperlipidemia. Cardiac care plan recommendations; I reviewed all his current evaluation he does not have any active chest pain now The EKG showed paced electronic ventricular rhythm Series of high sensitive troponins within normal We will get the report of the stress test from [facility] Also I will evaluate him by echocardiogram I reviewed all his current medication and discussed with the medical team Patient to be on dual antiplatelet therapy with Plavix aspirin, he is on a statin atorvastatin, low-dose beta-emily metoprolol 25 mg twice daily in addition to long-acting nitrate Imdur for symptoms of chest pressure and angina. Patient mentioned that he is allergic to Coumadin as well as to heparin not very clear detailed history about his allergy. Based on the result of the stress test will discuss the need for cardiac catheterization Approach will be in this case possible right common femoral artery as he had al ready left radial artery used for the bypass graft. HPI Consult Data Date of Consult: 11/15/22 HPI Narrative Reason for Consultation: Unstable angina with abnormal stress test/CAD with CABG and PCI stent HPI Narrative: MAYCO KENDRICK, is a 82 M who presents [facility] Medical History Asthma Atrial fibrillation BiPAP (biphasic positive airway pressure) dependence Cancer Cardiology follow-up encounter Congestive heart failure (CHF) COPD (chronic obstructive pulmonary disease) Diabetes Dysphagia GERD (gastroesophageal reflux disease) Hyperlipemia Hypertension Non-smoker Pacemaker Pancreatic abnormality Shortness of breath on exertion Thyroid disease Uses wheelchair Wears glasses Home Medications aspirin 81 mg chewable tablet 81 mg PO DAILY HEALTH MAINTENANCE 06/09/13 [H istory Last Taken 01/20/22] nitroglycerin 0.4 mg sublingual tablet 0.4 mg sublingual Q5M PRN Chest Pain 06/09/13 [History Last Taken 10/17/16 09:00] magnesium oxide 400 mg (241.3 mg magnesium) tablet 400 mg PO DAILY MAGNESIUM 10/07/15 [History Last Taken 01/09/21] oxybutynin chloride 5 mg tablet 5 mg PO TID DYSURIA 01/27/16 [History Last Taken 01/09/21] metoprolol tartrate 25 mg tablet 25 mg PO BID HTN 05/08/16 [History Last Taken 01/23/22] furosemide 40 mg tablet 80 mg PO DAILY CHF 10/17/16 [History Last Taken 01/09/21] atorvastatin 80 mg tablet 80 mg PO QHS HLD 08/05/18 [History Last Taken 0 01/08/21] cholecalciferol (vitamin D3) 50 mcg (2,000 unit) capsule 2,000 unit PO DAILY SUPPLEMENT 11/24/19 [History Last Taken 01/09/21] fluticasone propionate 50 mcg/actuation nasal spray,suspension 2 spray NASAL DAILY ALLERGIES 11/24/19 [History Last Taken 01/09/21] montelukast 10 mg tablet 10 mg PO DAILY ALLERGIES 11/24/19 [History Last Taken 01/08/21] aluminum-mag hydroxide-simethicone 400 mg-400 mg-40 mg/5 mL oral susp (Mintox Maximum Strength) 20 ml PO Q6H PRN UPSET STOMACH 01/09/21 [History Last Taken 12/22/20] calcium carb-ergocalciferol (vit D2) 500 mg (1,250 mg)-200 unit tablet 1 tab PO DAILY SUPPLEMENT 01/09/21 [History Last Taken 01/09/21] glimepiride 4 mg tablet 4 mg PO BREAKFAST DM 01/09/21 [History Last Taken 01/09/21] metformin 500 mg tablet (Glucophage) 500 mg PO TID DM 01/09/21 [History Last Taken 01/09/21] mirtazapine 15 mg tablet 15 mg PO QHS 01/09/21 [History Last Taken 01/08/21] tamsulosin 0.4 mg capsule 0.4 mg PO QHS 01/09/21 [History Last Taken 01/08/21] benzonatate 100 mg capsule 200 mg PO TID PRN COUGH #30 caps 01/11/21 [Rx Last Taken Unknown] potassium chloride 20 mEq tablet,extended release 20 meq PO BID #60 tabs 01/11/21 [Rx Last Taken Unknown] budesonide-formoterol HFA 80 mcg-4.5 mcg/actuation aerosol inhaler (Symbicort) 2 puff inhalation BID 02/06/21 [History Last Taken 01/23/22] acetaminophen 500 mg tablet (Pharbetol) 1,000 mg PO Q8H PRN Pain 07/15/21 [History Last Taken Unknown] docusate sodium 100 mg capsule 100 mg PO BID 07/15/21 [History Last Taken Unknown] bisacodyl 10 mg rectal suppository (Dulcolax (bisacodyl)) 10 mg [place] DAILY PRN Constipation 01/22/22 [History Last Taken Unknown] guaifenesin 100 mg/5 mL oral syrup 400 mg PO Q6H PRN Cough 01/22/22 [History Last Taken Unknown] ibuprofen 600 mg tablet 400 mg PO Q6H PRN Pain 01/22/22 [History Last Taken Unknown] meloxicam 7.5 mg tablet 7.5 mg PO DAILY 01/22/22 [History Last Taken Unknown] pantoprazole 40 mg tablet,delayed release See Rx Instructions .Route .COMPLEX #56 tabs 06/02/22 [Rx Last Taken Unknown] empagliflozin 10 mg tablet (Jardiance) 10 mg PO DAILY diabetes 11/14/22 [History Last Taken Unknown] plecanatide 3 mg tablet (Trulance) 3 mg PO DAILY chronic constipation 11/14/22 [History Last Taken Unknown] Allergy/AdvReac Type Severity Reaction Status Date / Time lisinopril Allergy Unknown Verified 11/13/22 14:30 paroxetine [From Paxil] Allergy NEEDS Verified 11/13/22 14:30 FOLLOW-UP sertraline Allergy Unknown Verified 11/13/22 14:30 enoxaparin [From Lovenox] AdvReac PT UNSURE Verified 11/14/22 04:19 OF REACTION Family History Mother Lung cancer Father CAD (coronary artery disease) Hypertension Heart disease Myocardial infarction Brother Myocardial infarction Hypertension Heart disease CAD (coronary artery disease) Surgical History (Updated 11/14/22 @ 14:[address] Kendall Linares MD) Coronary angioplasty status History of bilateral hip arthroplasty History of cholecystectomy Hx of CABG Social History (Updated 11/14/22 @ 00:32 by Carolina Velarde) household members: none housing: assisted living facility number of children: 0 service: Yes ([employer]) current occupational status: retired Smoking Status: Never smoker alcohol intake: never substance use type: does not use Physical Exam Cardio Cardio Narrative: Seen and evaluated today at bedside along with the nursing staff Not in acute distress not having any active chest pain surveillance system monitor showed paced electronic ventricular rhythm Cardiac exam S1-S2 is regular Chest exam clear to auscultation bilateral Pacemaker device noted on the right infraclavicular region Patient left-handed Surgical noted on the left radial artery area/harvested for bypass graft Mid sternotomy scar/CABG Risk Stratification Risk Stratification Applicable: Yes Age >/= 65: Yes >/= 3 CAD Risk Factors (HTN, HLD, DM, family hx of CAD, or current smoker): Yes Aspirin Use in the Past 7 Days: Yes Severe Angina (>/= episodes in 24 hours): No EKG ST Changes >/= 0.5mm: No Positive Cardiac Marker: No ALVERTO Risk Stratification Score: 3 ALVERTO % Risk: 13% Risk Objective Data Vital Signs: Vital Signs Temp Pulse Resp BP Pulse Ox O2 Del Method O2 Flow Rate 98.2 F 65 18 148/59 H 95 Room Air 2 11/14/22 11:30 11/14/22 11:30 11/14/22 11:30 11/14/22 11:30 11/14/22 11:30 11/14/22 13:50 11/14/22 07:02 Oxygen Flow Rate (L/min) 2 Oxygen Delivery Method Room Air Weight: 332 lb 7.313 oz Body Mass Index (BMI) 45.1 Intake & Output: Intake and Output for Last 24 Hours 11/12/22 11/13/22 11/14/22 23:59 23:59 23:59 Intake Total 900 / 900 Output Total 400 / 400 Balance 500 / 500 Lab / Micro Data Result Diagrams: 11/15/22 06:25 11/15/22 06:25 Labs: Laboratory Results - last 24 hr 11/13/22 16:12: WBC 8.5, RBC 4.73, Hgb 13.4, Hct 42.3, MCV 89.4, MCH 28.3, MCHC 31.7 L, RDW Std Deviation 52.1 H, RDW Coeff of Yue 15.9 H, Plt Count 199, MPV 9.1, Immature Gran % (Auto) 0.700, Neut % (Auto) 71.8 H, Lymph % (Auto) 12.8 L, [place] % (Auto) 11.6 H, Eos % (Auto) 2.5, Baso % (Auto) 0.6, Absolute Neuts (auto) 6.1, Absolute Lymphs (auto) 1.08, Nucleated RBC % 0 11/13/22 16:12: Sodium 133 L, Potassium 4.2, Chloride 100, Carbon Dioxide 29.0, Anion Gap 4 L, BUN 19 H, Creatinine 0.91, Estim Creat Clear Calc 69.88, Est GFR (MDRD) Af Amer 102, Est GFR (MDRD) Non-Af 85, BUN/Creatinine Ratio 20.8 H, Glucose 151 H, Calcium 8.9, Troponin I High Sens 16 11/13/22 18:25: Troponin I High Sens 19 11/13/22 18:25: Magnesium 1.9 11/13/22 22:21: Troponin I High Sens 20 11/13/22 22:31: POC Glucose 164 H 11/14/22 05:34: WBC 8.6, RBC 4.52 L, Hgb 13.0, Hct 40.3, MCV 89.2, MCH 28.8, MCHC 32.3, RDW Std Deviation 52.4 H, RDW Coeff of Yue 16.0 H, Plt Count 196, MPV 9.7, Immature Gran % (Auto) 0.300, Neut % (Auto) 68.1, Lymph % (Auto) 15.9 L, [place] % (Auto) 11.3 H, Eos % (Auto) 3.7, Baso % (Auto) 0.7, Absolute Neuts (auto) 5.9, Absolute Lymphs (auto) 1.37, Nucleated RBC % 0 11/14/22 05:34: Sodium 133 L, Potassium 4.1, Chloride 101, Carbon Dioxide 27.0, Anion Gap 5, BUN 16, Creatinine 0.76, Estim Creat Clear Calc 63.59, Est GFR (MDRD) Af Amer 127, Est GFR (MDRD) Non-Af 105, BUN/Creatinine Ratio 21.2 H, Glucose 129 H, Calcium 8.7, Total Bilirubin 0.90, AST 22, ALT 26, Alkaline Phosphatase 86, Total Protein 6.7, Albumin 2.7 L, Globulin 4.0, Albumin/Globulin Ratio 0.7 L, Triglycerides 105, Cholesterol 96, LDL Cholesterol 44, VLDL Cholesterol 21, HDL Cholesterol 31 L 11/14/22 06:48: POC Glucose 163 H 11/14/22 11:03: POC Glucose 181 H Cardiology Labs/Tests 11/13/22 16:12: WBC 8.5, RBC 4.73, Hgb 13.4, Hct 42.3, MCV 89.4, MCH 28.3, MCHC 31.7 L, Plt Count 199, MPV 9.1, Immature Gran % (Auto) 0.700, Neut % (Auto) 71.8 H, Lymph % (Auto) 12.8 L, [place] % (Auto) 11.6 H, Eos % (Auto) 2.5, Baso % (Auto) 0.6, Absolute Neuts (auto) 6.1, Nucleated RBC % 0 11/13/22 16:12: Sodium 133 L, Potassium 4.2, Chloride 100, Carbon Dioxide 29.0, Anion Gap 4 L, BUN 19 H, Creatinine 0.91, Est GFR (MDRD) Af Amer 102, Est GFR (MDRD) Non-Af 85, BUN/Creatinine Ratio 20.8 H, Glucose 151 H, Calcium 8.9 11/13/22 18:25: Magnesium 1.9 11/14/22 05:34: WBC 8.6, RBC 4.52 L, Hgb 13.0, Hct 40.3, MCV 89.2, MCH 28.8, MCHC 32.3, Plt Count 196, MPV 9.7, Immature Gran % (Auto) 0.300, Neut % (Auto) 68.1, Lymph % (Auto) 15.9 L, [place] % (Auto) 11.3 H, Eos % (Auto) 3.7, Baso % (Auto) 0.7, Absolute Neuts (auto) 5.9, Nucleated RBC % 0 11/14/22 05:34: Sodium 133 L, Potassium 4.1, Chloride 101, Carbon Dioxide 27.0, Anion Gap 5, BUN 16, Creatinine 0.76, Est GFR (MDRD) Af Amer 127, Est GFR (MDRD) Non-Af 105, BUN/Creatinine Ratio 21.2 H, Glucose 129 H, Calcium 8.7, Total Bilirubin 0.90, Triglycerides 105, Cholesterol 96, LDL Cholesterol 44, VLDL Cholesterol 21, HDL Cholesterol 31 L Rhythm: EKG: ECHO: Stress Test: Cardiac Cath: PCI: CT Surgery: Holter monitor: EPS: PPM: CXR: Chest CT Scan: Radiography Diagnostic Testing: Radiology Impression Chest X-Ray 11/13/22 16:15 IMPRESSION: No acute cardiopulmonary disease or major interval change. Electronically Signed: Mayco Talbot DO at 16:38 EDT Reading Location ID and State: [address] [place] [address] Tel [phone], Service support ,
[2022-11-14 16:35] LABS: Bedside Glucose 155 mg/dL (74-106)
[2022-11-14] MEDS: Tamsulosin HCl 0.4 MG Capsule PO (21:18)
[2022-11-14] MEDS: Mirtazapine 15 MG Tablet PO (21:19)
[2022-11-14] MEDS: Atorvastatin Calcium 80 MG Tablet PO (21:19)
[2022-11-14 22:45] LABS: Bedside Glucose 197 mg/dL (74-106)
[2022-11-15] VITALS (9 sets, daily range): BP systolic 114–137; BP diastolic 60–89; PULSE 60–67; RESP 16–20; TEMP 36.2–36.6; O2SAT 93–98; BMI 45.0
[2022-11-15] MEDS: Oxybutynin 5 MG Tablet PO ×3 (06:27→22:40)
[2022-11-15] MEDS: Budesonide Respules 0.5 MG/2 ML AMPUL.NEB. INHALATION ×2 (06:52→19:19)
[2022-11-15 06:55] LABS: Absolute Lymphocyte Count 1.34 X10^3/uL (0.83-4.51); Absolute Neutrophil Count 5.8 X10^3/uL (2.0-7.7); Basophil# 0.04 X10^3/uL; Basophil% 0.5 % (0-1); Bedside Glucose 134 mg/dL (74-106); Eosinophil# 0.32 X10^3/uL; Eosinophils% 3.7 % (0-5); Hematocrit 39.9 % (40-54); Hemoglobin 12.8 g/dL (13.0-16.5); Lymphocyte # 1.34 X10^3/ul (0.83-4.51); Lymphocyte % 15.7 % (19-41); Mean Corp Hgb Conc 32.1 g/dL (32-36); Mean Corpuscular Hgb 28.5 pg (27.0-32.0); Mean Corpuscular Volume 88.9 fL (80-94); Mean Platelet Vol. 9.4 fl (6.2-12.0); Monocyte# 0.99 X10^3/uL; Monocyte% 11.6 % (0-10); NRBC Flagged by Analyzer 0 % (0-5); Neutrophil % 67.9 % (47-70); Platelet Count 199 K/mm3 (150-450); RBC Distribution Width CV 15.9 % (11.6-14.6); RBC Distribution Width SD 51.9 fl (35.1-43.9); Red Blood Count 4.49 M/mm3 (4.6-6.2); White Blood Count 8.5 K/mm3 (4.4-11.0)
[2022-11-15 07:12] LABS: Anion Gap 4 (5-15); BUN 24 mg/dL (7-18); BUN/Creat Ratio 23.8 RATIO (10-20); Calcium,Total 8.9 mg/dL (8.5-10.1); Chloride 102 mmol/L (98-107); Creatinine, Serum 1.01 mg/dL (0.70-1.30); EST Glomerular Filtration Rate 75 mL/min (>60); Est Glom Filt Rate - Afr Amer 91 mL/min (>60); Estimated Creatinine Clearance 62.96 ml/min; Glucose 139 mg/dL (74-106); Sodium Level 136 mmol/L (136-145)
--- NOTE | 2022-11-15 07:51 | PN.HOSP_ITS ---
Reason for Visit Reason for Visit: Diagnoses Unstable angina (11/13/22) Subjective Subjective Follow-up for unstable angina. Objective Data Objective Data Vital Signs: Vital Signs Temp Pulse Resp BP Pulse Ox O2 Del Method O2 Flow Rate 98 F 62 18 137/70 H 98 Nasal Cannula 2 11/15/22 04:02 11/15/22 04:02 11/15/22 04:02 11/15/22 04:02 11/15/22 04:02 11/15/22 04:03 11/15/22 04:03 Oxygen Flow Rate (L/min) 2 Oxygen Delivery Method Nasal Cannula Weight: 332 lb 0.258 oz Body Mass Index (BMI) 45.0 Intake & Output: Intake and Output for Last 24 Hours 11/13/22 11/14/22 11/15/22 23:59 23:59 23:59 Intake Total 900 / 1140 480 / 480 Output Total 850 / 850 Balance 50 / 290 480 / 480 Lab / Micro Data Result Diagrams: 11/15/22 06:25 11/15/22 06:25 Labs: Laboratory Results - last 24 hr 11/14/22 06:48: POC Glucose 163 H 11/14/22 11:03: POC Glucose 181 H 11/14/22 16:07: POC Glucose 155 H 11/14/22 21:15: POC Glucose 197 H 11/15/22 06:25: WBC 8.5, RBC 4.49 L, Hgb 12.8 L, Hct 39.9 L, MCV 88.9, MCH 28.5, MCHC 32.1, RDW Std Deviation 51.9 H, RDW Coeff of Yue 15.9 H, Plt Count 199, MPV 9.4, Immature Gran % (Auto) 0.600, Neut % (Auto) 67.9, Lymph % (Auto) 15.7 L, [place] % (Auto) 11.6 H, Eos % (Auto) 3.7, Baso % (Auto) 0.5, Absolute Neuts (auto) 5.8, Absolute Lymphs (auto) 1.34, Nucleated RBC % 0 11/15/22 06:25: Sodium 136, Potassium 4.0, Chloride 102, Carbon Dioxide 30.0, Anion Gap 4 L, BUN 24 H, Creatinine 1.01, Estim Creat Clear Calc 62.96, Est GFR (MDRD) Af Amer 91, Est GFR (MDRD) Non-Af 75, BUN/Creatinine Ratio 23.8 H, Glucose 139 H, Calcium 8.9 11/15/22 06:25: POC Glucose 134 H Physical Exam Narrative Seen and examined. Patient does not have chest discomfort tightness or shortness of breath last 24 hours. History of double bypass with cardiac stenting 1998. Patient stated he is allergic to enoxaparin and bleeding risk with warfarin. General: Alert, Oriented x3, Cooperative, morbid obesity BMI 45.1 Kd prescribed. HEENT: Atraumatic, PERRLA, EOMI, Normocephalic Oral: No Gingival or Mucosal Lesions/ Ulcerations Neck: Supple, No JVD, Negative Carotid Bruits Lungs: Air entry diminished in bilateral lung bases. No crepitation/rhonchi Cardiovascular: Right upper chest pacemaker. Regular rate, Regular Rhythm, Normal S1, Normal S2, right second ICS LSB, chronic Abdomen: Bowel Sounds Present, Soft, Non Tender, Non-Distended : No renal angle tenderness. No suprapubic tenderness. Extremities: Bilateral edema, chronic, Capillary Refill Less than 3 Seconds Skin: Chronic venous changes of blackish depigmentation. No open ulcer or weeping. Musculoskeletal: No Tenderness to Palpation of Joints or Extremities Neurological: Cranial nerves II-XII grossly intact, DTR 2+/4 and Symmetrical, Neuro grossly intact Psych/Mental Status: Normal Affect, Appropriate. Assessment & Plan Assessment/Plan (1) Angina pectoris, unstable: PLAN: Plan The patient is an 82 y/o M with left shoulder and then chest discomfort started at 1 AM while he was sleeping which persisted for some time with radiation to left arm is admitted with working diagnosis of unstable angina. The patient is being admitted in PCU #1. Atypical chest discomfort secondary to Unstable Angina: Patient had serial troponin enzymes which are negative. Twelve-lead EKG shows ventricular paced rhythm. Repeat EKG shows no change. Prior to that patient had positive, abnormal nuclear stress test , concerning LAD ischemia on 10/30/2022 at [facility] and then is scheduled for cardiac cath but they do not have the bed therefore admitted here traffic signal mechanic is consulted. On Nitropatch, aspirin, metoprolol and morphine as needed. Dr. Linares is consulted 11/15: No chest pain or discomfort pressure or shortness for the last 24 hours. Discussed with the traffic signal mechanic. Plan for cardiac cath tomorrow AM. Awaiting stress test and other cardiac work-up report from [facility]. #2. CAD: Status post PCI and CABG: As mentioned above. Patient has allergy with lisinopril. #3. Chronic CHF, unclear specific type: Patient reports underlying CHF history, last echocardiogram in the system noted 01/10/2021 with EF 55%, no evidence of any diastolic dysfunction at that point, trivial MVI, bicuspid aortic valve present, continue aspirin, statin, metoprolol, Lasix, not on CIELO inhibitor/ARB. 11/15: Patient is euvolemic, therefore continue baseline Lasix and spironolactone medications. IV fluid discontinued yesterday. #4. PAF: Patient not chronically anticoagulated per current list, will continue home metoprolol regimen. #5. Chronic COPD/asthma with allergic rhinitis: Will hold home inhalers and in the interim transition to ATC budesonide therapy, PRN albuterol, HOB, IS parameters, continue patient home Singulair and fluticasone regimen. #6. Diabetes mellitus type II mild CKD stage II possible diabetic nephropathy: Creatinine 1.01 BUN 24 estimated creatinine clearance 63 mill per minute. Hold oral antidiabetic agents, Accu-Cheks and cover with Humalog sliding scale. #7. Anxiety and depression: continue patient home mirtazapine regimen #8. Hypertension: Continue home regimen including Toprol, Lasix, PRN hydralazine. #9. Hyperlipidemia: Continue home statin regimen. AM FLP. #10. History complete heart block: Status post pacemaker placement. #11. Morbid Obesity: Weight loss and lifestyle changes encouraged. #12. Chronic bilateral lower extremity venous stasis disease: l continue patient home wraps #13. GERD: We will continue patient on PPI. #14. BPH: We will continue patient on Flomax regimen. #15. EDMOND: BiPAP nightly. #16. DVT prophylaxis: Lovenox. #17. CODE status: Patient NICOL[place] is Armaan his brother and living will is currently in place. Discussed CODE status at length including difference between FULL code, DNR-CCA and DNR-CC status. Clinical Impression(s) from Imaging Studies Chest X-Ray 11/13/22 16:15 IMPRESSION: No acute cardiopulmonary disease or major interval change. Charges/Coding Visit Charges Inpatient E&M: 91358 Subs Hosp L2
--- NOTE | 2022-11-15 08:12 | PN.CARD_ITS ---
Subjective Subjective Patient seen and evaluated this morning at bedside He does not have any active chest pain comfortable lying in bed not in acute distress. Objective Data Vital Signs: Vital Signs Temp Pulse Resp BP Pulse Ox O2 Del Method O2 Flow Rate 98 F 62 18 137/70 H 98 Nasal Cannula 2 11/15/22 04:02 11/15/22 04:02 11/15/22 04:02 11/15/22 04:02 11/15/22 04:02 11/15/22 04:03 11/15/22 04:03 Oxygen Flow Rate (L/min) 2 Oxygen Delivery Method Nasal Cannula Weight: 332 lb 0.258 oz Body Mass Index (BMI) 45.0 Intake & Output: Intake and Output for Last 24 Hours 11/13/22 11/14/22 11/15/22 23:59 23:59 23:59 Intake Total 900 / 1140 480 / 480 Output Total 850 / 850 Balance 50 / 290 480 / 480 Lab / Micro Data Result Diagrams: 11/15/22 06:25 11/15/22 06:25 Labs: Laboratory Results - last 24 hr 11/14/22 06:48: POC Glucose 163 H 11/14/22 11:03: POC Glucose 181 H 11/14/22 16:07: POC Glucose 155 H 11/14/22 21:15: POC Glucose 197 H 11/15/22 06:25: WBC 8.5, RBC 4.49 L, Hgb 12.8 L, Hct 39.9 L, MCV 88.9, MCH 28.5, MCHC 32.1, RDW Std Deviation 51.9 H, RDW Coeff of Yue 15.9 H, Plt Count 199, MPV 9.4, Immature Gran % (Auto) 0.600, Neut % (Auto) 67.9, Lymph % (Auto) 15.7 L, [place] % (Auto) 11.6 H, Eos % (Auto) 3.7, Baso % (Auto) 0.5, Absolute Neuts (auto) 5.8, Absolute Lymphs (auto) 1.34, Nucleated RBC % 0 11/15/22 06:25: Sodium 136, Potassium 4.0, Chloride 102, Carbon Dioxide 30.0, Anion Gap 4 L, BUN 24 H, Creatinine 1.01, Estim Creat Clear Calc 62.96, Est GFR (MDRD) Af Amer 91, Est GFR (MDRD) Non-Af 75, BUN/Creatinine Ratio 23.8 H, Glucose 139 H, Calcium 8.9 11/15/22 06:25: POC Glucose 134 H Cardiology Labs/Tests 11/15/22 06:25: WBC 8.5, RBC 4.49 L, Hgb 12.8 L, Hct 39.9 L, MCV 88.9, MCH 28.5, MCHC 32.1, Plt Count 199, MPV 9.4, Immature Gran % (Auto) 0.600, Neut % (Auto) 67.9, Lymph % (Auto) 15.7 L, [place] % (Auto) 11.6 H, Eos % (Auto) 3.7, Baso % (Auto) 0.5, Absolute Neuts (auto) 5.8, Nucleated RBC % 0 11/15/22 06:25: Sodium 136, Potassium 4.0, Chloride 102, Carbon Dioxide 30.0, Anion Gap 4 L, BUN 24 H, Creatinine 1.01, Est GFR (MDRD) Af Amer 91, Est GFR (MDRD) Non-Af 75, BUN/Creatinine Ratio 23.8 H, Glucose 139 H, Calcium 8.9 Rhythm: EKG: ECHO: Stress Test: Cardiac Cath: PCI: CT Surgery: Holter monitor: EPS: PPM: CXR: Chest CT Scan: Physical Exam Cardio Cardio Narrative: Patient comfortable in no acute distress Review of media monitor underlying rhythm is normal sinus rhythm Cardiovascular exam S1-S2 regular Chest exam clear to auscultation bilateral. Assessment & Plan Assessment/Plan (1) GERD (gastroesophageal reflux disease): (2) Esophageal stricture: (3) Benign essential HTN: (4) DM2 (diabetes mellitus, type 2): QUALIFIERS: Qualified Code(s): Z79.4 - intermodal customer service (current) use of insulin (5) HLD (hyperlipidemia): (6) S/P CABG x 2: PLAN: Plan 82-year-old patient With multiple medical comorbidities CAD prior PCI and a stent of the left circumflex according to records And to be changed to using left radial the conduit. Patient had CABG x2 in 1998 He was admitted through the ER with abnormal nuclear stress test from [facility] He been stable clinically he does not have any active chest pain And the cardiac markers has been negative. Cardiac care plan; 1. We will continue medical treatment 2. We will get the report of the nuclear stress test from [facility] as well as the report of bypass surgery We will plan for evaluation further with cardiac catheterization/right common femoral artery approach possible To assess for [place] coronaries as well as a bypass graft and evaluate for progression of CAD. We will continue current medical treatment
[2022-11-15] MEDS: Nystatin Powder 15gm Bottle 1 APPLIC TOPICAL ×2 (10:01→22:42)
[2022-11-15] MEDS: Fluticasone 0.05% 1 SPRAY NASAL.SRY 2 SPRAY NASAL (10:01)
[2022-11-15] MEDS: Senna/Docusate Sodium 1 Tablet 2 TABLET PO (10:02)
[2022-11-15] MEDS: Furosemide 40 MG Tablet 80 MG PO (10:02)
[2022-11-15] MEDS: Metoprolol Tartrate 25 MG Tablet PO ×2 (10:02→22:40)
[2022-11-15] MEDS: Polyethylene Glycol 3350 17 GM PACKET PO (10:02)
[2022-11-15] MEDS: Spironolactone 25 MG Tablet PO (10:02)
[2022-11-15] MEDS: Clopidogrel Bisulfate 75 MG Tablet PO (10:03)
[2022-11-15] MEDS: Pantoprazole Sodium 40 MG Tablet PO ×2 (10:03→22:40)
[2022-11-15] MEDS: Isosorbide Mononitrate 30 MG Tablet PO (10:03)
[2022-11-15] MEDS: Montelukast 10 MG Tablet PO (10:03)
[2022-11-15] MEDS: Magnesium Chloride 64 MG Delay Rel.Tablet 128 MG PO (10:03)
[2022-11-15] MEDS: Aspirin 81 MG TAB.CHEW PO (10:06)
[2022-11-15] MEDS: Insulin Lispro 100 UNIT/ML INSULN.PEN SC ×3 (11:32→22:40)
[2022-11-15 11:46] LABS: Bedside Glucose 236 mg/dL (74-106)
[2022-11-15 17:06] LABS: Bedside Glucose 163 mg/dL (74-106)
[2022-11-15] MEDS: Tamsulosin HCl 0.4 MG Capsule PO (22:40)
[2022-11-15] MEDS: Mirtazapine 15 MG Tablet PO (22:40)
[2022-11-15] MEDS: Atorvastatin Calcium 80 MG Tablet PO (22:41)
[2022-11-15 23:05] LABS: Bedside Glucose 243 mg/dL (74-106)
[2022-11-16] VITALS (14 sets, daily range): BP systolic 104–136; BP diastolic 61–88; PULSE 57–100; RESP 16–18; TEMP 36.3–36.9; O2SAT 91–98; BMI 44.4
[2022-11-16] MEDS: BENZOCAINE/MENTHOL 1 LOZENGE 2 LOZENGE MUCOUS MEM ×2 (05:08→21:45)
[2022-11-16] MEDS: Oxybutynin 5 MG Tablet PO ×3 (05:09→21:20)
[2022-11-16 05:49] LABS: Absolute Lymphocyte Count 1.47 X10^3/uL (0.83-4.51); Absolute Neutrophil Count 5.5 X10^3/uL (2.0-7.7); Basophil# 0.05 X10^3/uL; Basophil% 0.6 % (0-1); Eosinophil# 0.34 X10^3/uL; Hematocrit 41.2 % (40-54); Lymphocyte # 1.47 X10^3/ul (0.83-4.51); Lymphocyte % 17.4 % (19-41); Mean Corp Hgb Conc 31.6 g/dL (32-36); Mean Corpuscular Hgb 28.1 pg (27.0-32.0); Mean Platelet Vol. 9.7 fl (6.2-12.0); Monocyte% 11.8 % (0-10); NRBC Flagged by Analyzer 0 % (0-5); Neutrophil # 5.54 X10^3/uL (2.7-7.7); Neutrophil % 65.5 % (47-70); Platelet Count 209 K/mm3 (150-450); RBC Distribution Width CV 15.9 % (11.6-14.6); RBC Distribution Width SD 51.8 fl (35.1-43.9); Red Blood Count 4.63 M/mm3 (4.6-6.2); White Blood Count 8.5 K/mm3 (4.4-11.0)
--- NOTE | 2022-11-16 05:55 | EKG12_ITS ---
Test Reason : AM EKG Blood Pressure : / mmHG Vent. Rate : 064 BPM Atrial Rate : 056 BPM P-R Int : 000 ms QRS Dur : 160 ms QT Int : 490 ms P-R-T Axes : 000 -52 092 degrees QTc Int : 505 ms Ventricular-paced rhythm with occasional Premature ventricular complexes Abnormal ECG When compared with ECG of 13-NOV-2022 21:40, MANUAL COMPARISON REQUIRED, DATA IS UNCONFIRMED Confirmed by LAURA MEEK, SHAR ([id number]), editorial project manager LEIGH CABA ([id number]) on 11/17/2022 9:04:55 AM Referred By: JR Confirmed By:SHAR SANCHEZ MD
[2022-11-16 06:47] LABS: Anion Gap 5 (5-15); BUN 23 mg/dL (7-18); BUN/Creat Ratio 26.4 RATIO (10-20); Calcium,Total 9.1 mg/dL (8.5-10.1); Chloride 102 mmol/L (98-107); Creatinine, Serum 0.87 mg/dL (0.70-1.30); EST Glomerular Filtration Rate 89 mL/min (>60); Est Glom Filt Rate - Afr Amer 108 mL/min (>60); Estimated Creatinine Clearance 73.09 ml/min; Glucose 132 mg/dL (74-106); Potassium 3.9 mmol/L (3.5-5.1); Sodium Level 136 mmol/L (136-145)
[2022-11-16 07:15] LABS: Bedside Glucose 152 mg/dL (74-106)
[2022-11-16] MEDS: Budesonide Respules 0.5 MG/2 ML AMPUL.NEB. INHALATION ×2 (07:40→18:48)
--- NOTE | 2022-11-16 08:24 | PN.HOSP_ITS ---
Reason for Visit Reason for Visit: Diagnoses Type 2 diabetes mellitus without complications (11/13/22) Morbid (severe) obesity due to excess calories (11/13/22) Hyperlipidemia, unspecified (11/13/22) Obstructive sleep apnea (adult) (pediatric) (11/13/22) Essential (primary) hypertension (11/13/22) Unstable angina (11/13/22) Gastro-esophageal reflux disease without esophagitis (11/13/22) Esophageal obstruction (11/13/22) Presence of aortocoronary bypass graft (11/13/22) Subjective Subjective No chest pain. No shortness of breath. Objective Data Objective Data Vital Signs: Vital Signs Temp Pulse Resp BP Pulse Ox O2 Del Method O2 Flow Rate 36.8 C 61 16 121/88 H 92 Nasal Cannula 2 11/16/22 04:49 11/16/22 07:42 11/16/22 07:42 11/16/22 04:49 11/16/22 07:42 11/16/22 08:18 11/16/22 08:18 Oxygen Flow Rate (L/min) 2 Oxygen Delivery Method Nasal Cannula Weight: 148.6 kg Body Mass Index (BMI) 44.4 Intake & Output: Intake and Output for Last 24 Hours 11/14/22 11/15/22 11/16/22 23:59 23:59 23:59 Intake Total 900 / 1140 1520 / 1960 440 / 440 Output Total 850 / 850 350 / 350 Balance 50 / 290 1520 / 1960 90 / 90 Lab / Micro Data Result Diagrams: 11/16/22 04:55 11/16/22 04:55 Labs: Laboratory Results - last 24 hr 11/15/22 11:28: POC Glucose 236 H 11/15/22 16:39: POC Glucose 163 H 11/15/22 22:36: POC Glucose 243 H 11/16/22 04:55: WBC 8.5, RBC 4.63, Hgb 13.0, Hct 41.2, MCV 89.0, MCH 28.1, MCHC 31.6 L, RDW Std Deviation 51.8 H, RDW Coeff of Yue 15.9 H, Plt Count 209, MPV 9.7, Immature Gran % (Auto) 0.700, Neut % (Auto) 65.5, Lymph % (Auto) 17.4 L, Castro % (Auto) 11.8 H, Eos % (Auto) 4.0, Baso % (Auto) 0.6, Absolute Neuts (auto) 5.5, Absolute Lymphs (auto) 1.47, Nucleated RBC % 0 11/16/22 04:55: Sodium 136, Potassium 3.9, Chloride 102, Carbon Dioxide 29.0, Anion Gap 5, BUN 23 H, Creatinine 0.87, Estim Creat Clear Calc 73.09, Est GFR (MDRD) Af Amer 108, Est GFR (MDRD) Non-Af 89, BUN/Creatinine Ratio 26.4 H, Glucose 132 H, Calcium 9.1 11/16/22 06:53: POC Glucose 152 H Physical Exam Const alert and no apparent distress HEENT head/scalp atraumatic and moist oral mucous membranes Eyes PERRL Resp normal respiratory effort, no retractions, no use of accessory muscles and clear to auscultation bilaterally Cardio regular rate, regular rhythm, S1 normal heart sound and S2 normal heart sound GI normal to inspection, nondistended, normoactive bowel sounds, soft to palpation, non-tender and non-distended Extremity normal to inspection and full ROM Assessment & Plan Assessment/Plan (1) Angina pectoris, unstable: PLAN: Atypical chest discomfort secondary to Unstable Angina: Patient had serial troponin enzymes which are negative. Twelve-lead EKG shows ventricular paced rhythm. Repeat EKG shows no change. Prior to that patient had positive, abnormal nuclear stress test , concerning LAD ischemia on 10/30/2022 at [facility] and then is scheduled for cardiac cath but they do not have the bed therefore admitted here drilling engineer is consulted. On Nitropatch, aspirin, metoprolol and morphine as needed. Dr. Linares is consulted 11/15: No chest pain or discomfort pressure or shortness for the last 24 hours. Discussed with the drilling engineer. 11/16: ADALID Rojas. Multivessel disease. Recommend medical mgmt. Echo pending. PLAN: Plan Chronic conditions: * CAD: Status post PCI and CABG: As mentioned above. Patient has allergy with lisinopril. * Chronic CHF, unclear specific type: Patient reports underlying CHF history, last echocardiogram in the system noted 01/10/2021 with EF 55%, no evidence of any diastolic dysfunction at that point, trivial MVI, bicuspid aortic valve present, continue aspirin, statin, metoprolol, Lasix, not on CIELO inhibitor/ARB. 11/15: Patient is euvolemic, therefore continue baseline Lasix and spironolactone medications. IV fluid discontinued yesterday. * PAF: Patient not chronically anticoagulated per current list, will continue home metoprolol regimen. * Chronic COPD/asthma with allergic rhinitis: Will hold home inhalers and in the interim transition to ATC budesonide therapy, PRN albuterol, HOB, IS parameters, continue patient home Singulair and fluticasone regimen. * Diabetes mellitus type II mild CKD stage II possible diabetic nephropathy: Creatinine 1.01 BUN 24 estimated creatinine clearance 63 mill per minute. Hold oral antidiabetic agents, Accu-Cheks and cover with Humalog sliding scale. * Anxiety and depression: continue patient home mirtazapine regimen * Hypertension: Continue home regimen including Toprol, Lasix, PRN hydralazine. * Hyperlipidemia: Continue home statin regimen. AM FLP. * History complete heart block: Status post pacemaker placement. * Morbid Obesity: Weight loss and lifestyle changes encouraged. * Chronic bilateral lower extremity venous stasis disease: l continue patient home wraps * GERD: We will continue patient on PPI. * BPH: We will continue patient on Flomax regimen. * EDMOND: BiPAP nightly. DVT prophylaxis: Lovenox. CODE status: Full Charges/Coding Visit Charges Inpatient E&M: 48526 Subs Hosp L2
[2022-11-16] MEDS: Metoprolol Tartrate 25 MG Tablet PO ×2 (08:50→21:21)
[2022-11-16] MEDS: Aspirin 81 MG TAB.CHEW PO (08:50)
[2022-11-16] MEDS: Clopidogrel Bisulfate 75 MG Tablet PO (08:51)
[2022-11-16] MEDS: Isosorbide Mononitrate 30 MG Tablet PO (08:51)
--- NOTE | 2022-11-16 08:56 | NURSING ---
Called report to Gabriela VERNON in dental laboratory technology teacher
[2022-11-16] MEDS: 0.9% Normal Saline 1,000 ML 75 ML IV (10:30)
[2022-11-16] MEDS: Polyethylene Glycol 3350 17 GM PACKET PO (11:24)
[2022-11-16] MEDS: Insulin Lispro 100 UNIT/ML INSULN.PEN SC ×3 (11:24→21:18)
[2022-11-16] MEDS: Fluticasone 0.05% 1 SPRAY NASAL.SRY 2 SPRAY NASAL (11:25)
[2022-11-16] MEDS: Nystatin Powder 15gm Bottle 1 APPLIC TOPICAL ×2 (11:26→21:21)
[2022-11-16] MEDS: Furosemide 40 MG Tablet 80 MG PO (11:27)
[2022-11-16] MEDS: Senna/Docusate Sodium 1 Tablet 2 TABLET PO ×2 (11:27→21:22)
[2022-11-16] MEDS: Magnesium Chloride 64 MG Delay Rel.Tablet 128 MG PO (11:27)
[2022-11-16] MEDS: Pantoprazole Sodium 40 MG Tablet PO ×2 (11:27→21:21)
[2022-11-16] MEDS: Spironolactone 25 MG Tablet PO (11:27)
[2022-11-16] MEDS: Montelukast 10 MG Tablet PO (11:28)
--- NOTE | 2022-11-16 11:54 | CASEMGMT ---
[facility] BREEZY also called [facility] and spoke with Rina. Patient's pharmacy is [facility]. BREEZY made sure [facility] was marked as patient's preferred pharmacy. Stacy TSANG
[2022-11-16 12:11] LABS: Bedside Glucose 162 mg/dL (74-106)
--- NOTE | 2022-11-16 14:24 | CRPHASE1 ---
Patient Communication PHII Cardiac Rehab Discussed with Patient:: Yes Guide to Cardiac Rehab Given to Patient:: Yes Cardiac Rehab Facility Choice List Given to Patient:: Yes - chooses [facility] Choice Program [facility] CR PHII:: Communication Given to CR, Refer to [facility] Refer Phase II Cardiac Rehab:: Yes Sessions:: 36 sessions - 3 days/wk, 12 weeks Cardiac Rehabilitation Info Cardiac Rehabilitation Program Information: Cardiac Rehab The cardiac rehab team at [facility] consists of highly skilled exercise physiologists, nurses, respiratory therapists and physicians working together with you. Our purpose is to help you have a full recovery and achieve the goals you set for yourself. Over the years many of our patients have returned to activities they assumed they would never do again! We can help restore your confidence and motivation to make lifestyle changes that can have a significant impact on your health and quality of life! We can help answer questions and concerns you may have about exercise, lifestyle, medications, diet, stress and anxiety which are common following a hospitalization. WE monitor ECG and vital signs during exercise and discuss your progress with you and report to your physician(s). Cardiac Rehab is proven to help reduce readmissions, improve functional capacity and lower recurrence of problems with your heart. Our Cardiac Rehab program is Certified by the [place] [employer] Pulmonary [employer] (AACVPR) and Accredited by the [place] [employer] through our [facility]. You can contact us at . We invite you to call us with your questions or to get started in our program. If you have other questions or concerns be sure to ask your physician/provider during your follow-up visit. WE look forward to seeing you!
--- NOTE | 2022-11-16 14:24 | CRPH1.INSTRU ---
General Education CAD and cardiac anatomy and function:: Needs reinforcement Explanation of diagnoses and procedures:: Needs reinforcement Sign/Symptoms of [place]:: Needs reinforcement Antiplatelet therapy: Needs reinforcement Proper use of NTG-SL: Needs reinforcement Emergency procedures and activation of EMS: Needs reinforcement Compliance of all prescribed medications: Needs reinforcement
--- NOTE | 2022-11-16 15:31 | CHAPLAIN ---
Type of Pastoral Visit _x__ Initial Visit ___ Follow-up Visit ___ On-call Visit ___ General Patient Visit ___ Spiritual Assessment ___ Family Conference ___ Bereavement ___ Rapid Response ___ Code Blue ___ Other (describe below) Pastoral Care Referral From _x__ Patient ___ Family ___ Nurse ___ Physician ___ Senior Trainer ___ Sausage Inspector ___ Other (describe below) Sacrament/Intervention _x__ Active listening ___ Anointing ___ Holiness ___ Bereavement ___ Communion ___ Ya exploration ___ ___ Life review _x__ Prayer ___ Reconciliation ___ Sacrament of Sick _x__ Supportive presence ___ Wedding ___ Other (describe below) Pastoral Comments patient describes his health situation and acknowledges his stress and dissatisfaction with his living situation at [place]; pt seeks emotional support and opportunity to express his needs; pt welcomes a prayer and presence
[2022-11-16 16:55] LABS: Bedside Glucose 212 mg/dL (74-106)
[2022-11-16] MEDS: Tamsulosin HCl 0.4 MG Capsule PO (21:20)
[2022-11-16] MEDS: Atorvastatin Calcium 80 MG Tablet PO (21:20)
[2022-11-16] MEDS: Mirtazapine 15 MG Tablet PO (21:21)
[2022-11-16 23:11] LABS: Bedside Glucose 183 mg/dL (74-106)
[2022-11-17] VITALS (8 sets, daily range): BP systolic 116–138; BP diastolic 59–62; PULSE 57–64; RESP 17–19; TEMP 36.4–36.8; O2SAT 90–96; BMI 44.0
[2022-11-17 06:03] LABS: Hemoglobin 13.1 g/dL (13.0-16.5); Mean Corp Hgb Conc 31.2 g/dL (32-36); Mean Corpuscular Hgb 28.3 pg (27.0-32.0); Mean Corpuscular Volume 90.7 fL (80-94); Mean Platelet Vol. 9.9 fl (6.2-12.0); Platelet Count 217 K/mm3 (150-450); RBC Distribution Width CV 16.2 % (11.6-14.6); RBC Distribution Width SD 53.3 fl (35.1-43.9); Red Blood Count 4.63 M/mm3 (4.6-6.2); White Blood Count 10.8 K/mm3 (4.4-11.0)
--- NOTE | 2022-11-17 06:05 | PN.CARD_ITS ---
Subjective Subjective Patient seen and evaluated. Doing better today. Underwent cardiac catheterization yesterday. Objective Data Vital Signs: Vital Signs Temp Pulse Resp BP Pulse Ox O2 Del Method O2 Flow Rate 98.2 F 57 L 19 H 138/62 H 96 Nasal Cannula 3 11/17/22 03:15 11/17/22 03:17 11/17/22 03:17 11/17/22 03:15 11/17/22 03:17 11/17/22 03:17 11/17/22 03:17 Oxygen Flow Rate (L/min) 3 Oxygen Delivery Method Nasal Cannula Weight: 327 lb 9.71 oz Body Mass Index (BMI) 44.4 Intake & Output: Intake and Output for Last 24 Hours 11/15/22 11/16/22 11/17/22 23:59 23:59 23:59 Intake Total 1520 / 1959 1371.25 / 1371.25 Output Total 1725 / 1725 Balance 1521959 -353.75 / -353.75 Lab / Micro Data Result Diagrams: 11/16/22 04:55 11/16/22 04:55 Labs: Laboratory Results - last 24 hr 11/16/22 04:55: Sodium 136, Potassium 3.9, Chloride 102, Carbon Dioxide 29.0, Anion Gap 5, BUN 23 H, Creatinine 0.87, Estim Creat Clear Calc 73.09, Est GFR (MDRD) Af Amer 108, Est GFR (MDRD) Non-Af 89, BUN/Creatinine Ratio 26.4 H, Glucose 132 H, Calcium 9.1 11/16/22 06:53: POC Glucose 152 H 11/16/22 11:24: POC Glucose 162 H 11/16/22 16:27: POC Glucose 212 H 11/16/22 21:16: POC Glucose 183 H Cardiology Labs/Tests 11/16/22 04:55: Sodium 136, Potassium 3.9, Chloride 102, Carbon Dioxide 29.0, Anion Gap 5, BUN 23 H, Creatinine 0.87, Est GFR (MDRD) Af Amer 108, Est GFR (MDRD) Non-Af 89, BUN/Creatinine Ratio 26.4 H, Glucose 132 H, Calcium 9.1 Rhythm: EKG: ECHO: Stress Test: Cardiac Cath: PCI: CT Surgery: Holter monitor: EPS: PPM: CXR: Chest CT Scan: Radiography Diagnostic Testing: Radiology Impression Echocardiogram 11/14/22 14:09 Interpretation Summary Normal LV size. Left ventricular systolic function is normal. The estimated ejection fraction is 60 %. Mild concentric left ventricular hypertrophy. Pulmonary artery systolic pressure is 28 mmHg. Contrast injection was performed. Ordering Physician: David Cox Referring Physician: Bertrand Warner Performed By: Aracelis Zaman RCS Physical Exam Const alert, oriented x3 and no apparent distress General Appearance: cooperative HEENT hearing grossly normal bilaterally Head and Scalp: atraumatic Eyes EOMs intact bilaterally Neck General: normal visual inspection Chest inspection of chest normal and palpation of chest normal Resp normal respiratory effort Auscultation: clear to auscultation bilaterally Cardio regular rate, regular rhythm, S1 normal heart sound and S2 normal heart sound Jugular Venous Distention: JVD GI normal to inspection, nondistended, normoactive bowel sounds Extremity normal capillary refill and no pedal edema Peripheral Pulses: Yes pulses 2+ throughout and femoral pulses present Skin no rashes or lesions noted Neuro oriented x3 and CN's II-XII intact bilaterally Psych Appearance: grossly normal and appropriate Assessment & Plan Assessment/Plan (1) S/P CABG x 2: PLAN: Patient is status post coronary bypass surgery. Underwent cardiac catheterization yesterday which demonstrated patency of the WOODS as well as the saphenous vein graft/radial branch. He appears to be well revascularized his echocardiogram demonstrated normal left ventricular function. Plan will be to discharge him for outpatient follow-up with his primary straightening machine feeder. (2) Benign essential HTN: PLAN: His blood pressure appears to be under better control at this time. We will continue current medical therapy. Thank you for allowing me to participate in the care of your patient. Please don't hesitate to call if any issues arise.
[2022-11-17] MEDS: Insulin Lispro 100 UNIT/ML INSULN.PEN SC ×2 (06:31→11:11)
[2022-11-17] MEDS: Oxybutynin 5 MG Tablet PO ×2 (06:32→14:32)
[2022-11-17] MEDS: BENZOCAINE/MENTHOL 1 LOZENGE 2 LOZENGE MUCOUS MEM (06:32)
[2022-11-17] MEDS: Budesonide Respules 0.5 MG/2 ML AMPUL.NEB. INHALATION (06:41)
[2022-11-17 06:53] LABS: ALB/GLOB Ratio 0.7 RATIO (0.9-2.4); AST(SGOT) 32 U/L (15-37); Alanine Aminotransfer ALT/SGPT 25 U/L (16-61); Alkaline Phosphatase 94 U/L (45-117); Anion Gap 6 (5-15); BUN 24 mg/dL (7-18); BUN/Creat Ratio 26.3 RATIO (10-20); Calcium,Total 8.9 mg/dL (8.5-10.1); Chloride 103 mmol/L (98-107); Creatinine, Serum 0.91 mg/dL (0.70-1.30); EST Glomerular Filtration Rate 85 mL/min (>60); Est Glom Filt Rate - Afr Amer 103 mL/min (>60); Estimated Creatinine Clearance 69.88 ml/min; Globulin 4.1 g/dL (2.2-4.2); Glucose 155 mg/dL (74-106); Potassium 3.8 mmol/L (3.5-5.1); Protein, Total 7.1 g/dL (6.4-8.2); Sodium Level 137 mmol/L (136-145)
[2022-11-17 06:55] LABS: Bedside Glucose 158 mg/dL (74-106)
--- NOTE | 2022-11-17 08:00 | PN.HOSP_ITS ---
Reason for Visit Reason for Visit: Diagnoses Type 2 diabetes mellitus without complications (11/13/22) Morbid (severe) obesity due to excess calories (11/13/22) Hyperlipidemia, unspecified (11/13/22) Obstructive sleep apnea (adult) (pediatric) (11/13/22) Essential (primary) hypertension (11/13/22) Unstable angina (11/13/22) Gastro-esophageal reflux disease without esophagitis (11/13/22) Esophageal obstruction (11/13/22) Presence of aortocoronary bypass graft (11/13/22) Subjective Subjective No new events. Did not sleep well due to the bed being uncomfortable. Objective Data Objective Data Vital Signs: Vital Signs Temp Pulse Resp BP Pulse Ox O2 Del Method O2 Flow Rate 36.8 C 63 18 138/62 H 90 Nasal Cannula 3 11/17/22 03:15 11/17/22 06:38 11/17/22 06:38 11/17/22 03:15 11/17/22 06:38 11/17/22 06:38 11/17/22 06:38 Oxygen Flow Rate (L/min) 3 Oxygen Delivery Method Nasal Cannula Weight: 147.2 kg Body Mass Index (BMI) 44.0 Intake & Output: Intake and Output for Last 24 Hours 11/15/22 11/16/22 11/17/22 23:59 23:59 23:59 Intake Total 1520 1959 1371.25 / 1371.25 Output Total 1725 / 1725 Balance 1519 -353.75 / -353.75 Lab / Micro Data Result Diagrams: 11/17/22 04:39 11/17/22 04:39 Labs: Laboratory Results - last 24 hr 11/16/22 11:24: POC Glucose 162 H 11/16/22 16:27: POC Glucose 212 H 11/16/22 21:16: POC Glucose 183 H 11/17/22 04:39: WBC 10.8, RBC 4.63, Hgb 13.1, Hct 42.0, MCV 90.7, MCH 28.3, MCHC 31.2 L, RDW Std Deviation 53.3 H, RDW Coeff of Yue 16.2 H, Plt Count 217, MPV 9.9 11/17/22 04:39: Sodium 137, Potassium 3.8, Chloride 103, Carbon Dioxide 28.0, Anion Gap 6, BUN 24 H, Creatinine 0.91, Estim Creat Clear Calc 69.88, Est GFR (MDRD) Af Amer 103, Est GFR (MDRD) Non-Af 85, BUN/Creatinine Ratio 26.3 H, Glucose 155 H, Calcium 8.9, Total Bilirubin 1.00, AST 32, ALT 25, Alkaline Christi sphatase 94, Total Protein 7.1, Albumin 3.0 L, Globulin 4.1, Albumin/Globulin Ratio 0.7 L 11/17/22 06:30: POC Glucose 158 H Radiography Diagnostic Testing: Radiology Impression Echocardiogram 11/14/22 14:09 Interpretation Summary Normal LV size. Left ventricular systolic function is normal. The estimated ejection fraction is 60 %. Mild concentric left ventricular hypertrophy. Pulmonary artery systolic pressure is 28 mmHg. Contrast injection was performed. Ordering Physician: David Cox Referring Physician: Bertrand Warner Performed By: Aracelis Zaman RCS Physical Exam Const alert and no apparent distress HEENT head/scalp atraumatic and moist oral mucous membranes Resp normal respiratory effort, no retractions, no use of accessory muscles and clear to auscultation bilaterally Cardio regular rate, regular rhythm, S1 normal heart sound and S2 normal heart sound GI normal to inspection, nondistended, normoactive bowel sounds, soft to palpation, non-tender and non-distended Extremity normal to inspection Assessment & Plan Assessment/Plan (1) Angina pectoris, unstable: PLAN: Atypical chest discomfort secondary to Unstable Angina: Patient had serial troponin enzymes which are negative. Twelve-lead EKG shows ventricular paced rhythm. Repeat EKG shows no change. Prior to that patient had positive, abnormal nuclear stress test , concerning LAD ischemia on 10/30/[address] [facility] and then is scheduled for cardiac cath but they do not have the bed therefore admitted here supervisor rice milling is consulted. On Nitropatch, aspirin, metoprolol and morphine as needed. Dr. Linares is consulted 11/15: No chest pain or discomfort pressure or shortness for the last 24 hours. Discussed with the supervisor rice milling. 11/16: ADALID Rojas. Multivessel disease. Recommend medical mgmt. Echo yadi prince. Echo shows EF 60%, Mild concentric left ventricular hypertrophy. PAP 28mmHg Medical managment to include: metoprolol tartrate 25 BID, clopidogrel 75 daily, ASA 81 daily, atorvastatin 80 QHS PLAN: Plan Chronic conditions: * CAD: Status post PCI and CABG: As mentioned above. Patient has allergy with lisinopril. * Chronic CHF, unclear specific type: Patient reports underlying CHF history, last echocardiogram in the system noted 01/10/2021 with EF 55%, no evidence of any diastolic dysfunction at that point, trivial MVI, bicuspid aortic valve present, continue aspirin, statin, metoprolol, Lasix, not on CIELO inhibitor/ARB. 11/15: Patient is euvolemic, therefore continue baseline Lasix and spironolactone medications. IV fluid discontinued yesterday. * PAF: Patient not chronically anticoagulated per current list, will continue home metoprolol regimen. * Chronic COPD/asthma with allergic rhinitis: Will hold home inhalers and in the interim transition to ATC budesonide therapy, PRN albuterol, HOB, IS parameters, continue patient home Singulair and fluticasone regimen. * Diabetes mellitus type II mild CKD stage II possible diabetic nephropathy: Creatinine 1.01 BUN 24 estimated creatinine clearance 63 mill per minute. Hold oral antidiabetic agents, Accu-Cheks and cover with Humalog sliding scale. * Anxiety and depression: continue patient home mirtazapine regimen * Hypertension: Continue home regimen including Toprol, Lasix, PRN hydralazine. * Hyperlipidemia: Continue home statin regimen. AM FLP. * History complete heart block: Status post pacemaker placement. * Morbid Obesity: Weight loss and lifestyle changes encouraged. * Chronic bilateral lower extremity venous stasis disease: l continue patient home wraps * GERD: We will continue patient on PPI. * BPH: We will continue patient on Flomax regimen. * EDMOND: BiPAP nightly. DVT prophylaxis: Lovenox. CODE status: Full DC home.
[2022-11-17] MEDS: Fluticasone 0.05% 1 SPRAY NASAL.SRY 2 SPRAY NASAL (08:59)
[2022-11-17] MEDS: Senna/Docusate Sodium 1 Tablet 2 TABLET PO (08:59)
[2022-11-17] MEDS: Polyethylene Glycol 3350 17 GM PACKET PO (09:00)
[2022-11-17] MEDS: Pantoprazole Sodium 40 MG Tablet PO (09:01)
[2022-11-17] MEDS: Magnesium Chloride 64 MG Delay Rel.Tablet 128 MG PO (09:01)
[2022-11-17] MEDS: Metoprolol Tartrate 25 MG Tablet PO (09:01)
[2022-11-17] MEDS: Montelukast 10 MG Tablet PO (09:01)
[2022-11-17] MEDS: Furosemide 40 MG Tablet 80 MG PO (09:01)
[2022-11-17] MEDS: Clopidogrel Bisulfate 75 MG Tablet PO (09:01)
[2022-11-17] MEDS: Isosorbide Mononitrate 30 MG Tablet PO (09:01)
[2022-11-17] MEDS: Aspirin 81 MG TAB.CHEW PO (09:02)
[2022-11-17] MEDS: Spironolactone 25 MG Tablet PO (09:02)
--- NOTE | 2022-11-17 10:00 | EKG12_ITS ---
Test Reason : AM Blood Pressure : / mmHG Vent. Rate : 062 BPM Atrial Rate : 051 BPM P-R Int : 000 ms QRS Dur : 170 ms QT Int : 486 ms P-R-T Axes : 000 -43 092 degrees QTc Int : 493 ms Ventricular-paced rhythm with occasional Premature ventricular complexes Abnormal ECG When compared with ECG of 16-NOV-2022 05:17, MANUAL COMPARISON REQUIRED, DATA IS UNCONFIRMED Confirmed by LAURA MEEK, SHAR ([id number]), medical editor LEIGH CABA ([id number]) on 11/18/2022 9:58:53 AM Referred By: Confirmed By:SHAR SANCHEZ MD
--- NOTE | 2022-11-17 10:11 | CASEMGMT ---
Patient will be discharged back to [facility] today. SW called [facility] and notified them of patient's discharge today. Stacy TSANG
--- NOTE | 2022-11-17 10:50 | DCINST_ITS ---
Discharge Instructions Diet Discharge Diet: Low fat / Low cholesterol Activity Discharge Activity: Return to Normal Activity Dressing / Incision Call your doctor if you observe: Shortness of breath and Chest pain Follow Up Care Test Results: Test results from this visit will be discussed in further detail at your follow- up appointment, if applicable. Discharge Plan Admission Admit Date/Time: 11/13/22 19:31 Primary Reason for Your Visit: myocardial infarction. Attending Provider: Daquan Mckeon Primary Care Provider: Bertrand Warner Consulting Providers: Kendall Linares ; Magdalena Grace ; David Cox Discharge Orders/Prescriptions Prescriptions: New clopidogrel 75 mg Tablet 75 mg PO DAILY Qty: 30 0RF isosorbide mononitrate 30 mg Tablet Extended Release 24 Hr 30 mg PO DAILY Qty: 30 0RF spironolactone 25 mg Tablet 25 mg PO DAILY Qty: 30 0RF Continued nitroglycerin 0.4 MG tablet 0.4 mg sublingual Q5M PRN (Reason: Chest Pain) Label Comments: CHEST aspirin 81 MG tablet,chewable 81 mg PO DAILY Label Comments: [facility] magnesium oxide 400 MG tablet 400 mg PO DAILY Label Comments: MAGNESIUM SUPPLEMENT oxybutynin chloride 5 MG tablet 5 mg PO TID metoprolol tartrate 25 MG tablet 25 mg PO BID furosemide 40 MG tablet 80 mg PO DAILY atorvastatin 80 MG tablet 80 mg PO QHS montelukast 10 MG tablet 10 mg PO DAILY fluticasone propionate 1 SPRAY spray,suspension 2 spray NASAL DAILY cholecalciferol (vitamin D3) 2,000 UNIT capsule 2,000 unit PO DAILY tamsulosin 0.4 mg Capsule 0.4 mg PO QHS mirtazapine 15 mg Tablet 15 mg PO QHS glimepiride 4 mg Tablet 4 mg PO BREAKFAST alum-mag hydroxide-simeth [Mintox Maximum Strength] 400-400-40 mg/5 mL Suspension 20 ml PO Q6H PRN (Reason: UPSET STOMACH) calcium carbonate-vitamin D2 500 mg(1,250mg) -200 unit Tablet 1 tab PO DAILY benzonatate 100 mg Capsule 200 mg PO TID PRN (Reason: COUGH) Qty: 30 0RF budesonide-formoterol [Symbicort] 80-4.5 mcg/actuation Hfa Aerosol Inhaler 2 puff INHALATION BID acetaminophen [Pharbetol] 500 mg Tablet 1,000 mg PO Q8H PRN (Reason: Pain) docusate sodium 100 MG capsule 100 mg PO BID bisacodyl [Dulcolax (bisacodyl)] 10 mg Suppository 10 mg [place] DAILY PRN (Reason: Constipation) guaifenesin 100 mg/5 mL Syrup 400 mg PO Q6H PRN (Reason: Cough) Trulance 3 mg tablet 3 mg PO DAILY Jardiance 10 mg Tablet 10 mg PO DAILY pantoprazole 40 mg tablet,delayed release (DR/EC) See Rx Instructions .ROUTE .COMPLEX Qty: 56 5RF Dose Instruction: TAKE 1 TABLET BY MOUTH TWICE A DAY Rx Instructions: TAKE 1 TABLET BY MOUTH TWICE A DAY Held metformin [Glucophage] 500 mg tablet 500 mg PO TID Hold Instructions: Resume on 11/21/22. Discontinued potassium chloride 20 mEq tablet extended release 20 meq PO BID Qty: 60 0RF meloxicam 7.5 mg Tablet 7.5 mg PO DAILY ibuprofen 600 mg tablet 400 mg PO Q6H PRN (Reason: Pain) Referrals / Follow Up: [facility] [Provider Group] - Within 1 Month Bertrand Warner MD [Primary Care Provider] - Within 2 Weeks Disposition Disposition (needs filled in before D/C Order can be placed): Home, Self Care
--- NOTE | 2022-11-17 10:57 | DS.PCM_ITS ---
Providers Date of Admission: 11/13/22 Primary Care Physician: Dr. Bertrand Warner MD Consultations 11/13/22 20:57 Consult: Cardiology Routine Consulting Provider: Kendall Linares Reason for Consult: Unstable angina EMERGENT Consult: No MD Notified: Yes Date Notified: 11/13/22 Time Notified: 20:46 Method of Notification: ED Physician Initiated Reason For Visit: UNSTABLE ANGINA Diagnosis Discharge Diagnosis (1) Angina pectoris, unstable: Status: Acute Code(s): I20.0 - Unstable angina Plan: Atypical chest discomfort secondary to Unstable Angina: Patient had serial troponin enzymes which are negative. Twelve-lead EKG shows ventricular paced rhythm. Repeat EKG shows no change. Prior to that patient had positive, abnormal nuclear stress test , concerning LAD ischemia on 10/30/[address] [facility] and then is scheduled for cardiac cath but they do not have the bed therefore admitted here varying exceptionalities teacher is consulted. On Nitropatch, aspirin, metoprolol and morphine as needed. Dr. Linares is consulted 11/15: No chest pain or discomfort pressure or shortness for the last 24 hours. Discussed with the varying exceptionalities teacher. 11/16: ADALID Rojas. Multivessel disease. Recommend medical mgmt. Echo pending. Echo shows EF 60%, Mild concentric left ventricular hypertrophy. PAP 28mmHg Medical managment to include: metoprolol tartrate 25 BID, clopidogrel 75 daily, ASA 81 daily, atorvastatin 80 QHS Plan Chronic conditions: * CAD: Status post PCI and CABG: As mentioned above. Patient has allergy with lisinopril. * Chronic CHF, unclear specific type: Patient reports underlying CHF history, last echocardiogram in the system noted 01/10/2021 with EF 55%, no evidence of any diastolic dysfunction at that point, trivial MVI, bicuspid aortic valve present, continue aspirin, statin, metoprolol, Lasix, not on CIELO inhibitor/ARB. 11/15: Patient is euvolemic, therefore continue baseline Lasix and spironolactone medications. IV fluid discontinued yesterday. * PAF: Patient not chronically anticoagulated per current list, will continue home metoprolol regimen. * Chronic COPD/asthma with allergic rhinitis: Will hold home inhalers and in the interim transition to ATC budesonide therapy, PRN albuterol, HOB, IS para meters, continue patient home Singulair and fluticasone regimen. * Diabetes mellitus type II mild CKD stage II possible diabetic nephropathy: Creatinine 1.01 BUN 24 estimated creatinine clearance 63 mill per minute. Hold oral antidiabetic agents, Accu-Cheks and cover with Humalog sliding scale. * Anxiety and depression: continue patient home mirtazapine regimen * Hypertension: Continue home regimen including Toprol, Lasix, PRN hydralazine. * Hyperlipidemia: Continue home statin regimen. AM FLP. * History complete heart block: Status post pacemaker placement. * Morbid Obesity: Weight loss and lifestyle changes encouraged. * Chronic bilateral lower extremity venous stasis disease: l continue patient home wraps * GERD: We will continue patient on PPI. * BPH: We will continue patient on Flomax regimen. * EDMOND: BiPAP nightly. CODE status: Full DC home. Medications at Discharge Home Medications aspirin 81 mg chewable tablet 81 mg PO DAILY HEALTH MAINTENANCE 06/09/13 nitroglycerin 0.4 mg sublingual tablet 0.4 mg sublingual Q5M PRN Chest Pain 06/09/13 magnesium oxide 400 mg (241.3 mg magnesium) tablet 400 mg PO DAILY MAGNESIUM 10/07/15 oxybutynin chloride 5 mg tablet 5 mg PO TID DYSURIA 01/27/16 metoprolol tartrate 25 mg tablet 25 mg PO BID HTN 05/08/16 furosemide 40 mg tablet 80 mg PO DAILY CHF 10/17/16 atorvastatin 80 mg tablet 80 mg PO QHS HLD 08/05/18 cholecalciferol (vitamin D3) 50 mcg (2,000 unit) capsule 2,000 unit PO DAILY SUPPLEMENT 11/24/19 fluticasone propionate 50 mcg/actuation nasal spray,suspension 2 spray NASAL DAILY ALLERGIES 11/24/19 montelukast 10 mg tablet 10 mg PO DAILY ALLERGIES 11/24/19 aluminum-mag hydroxide-simethicone 400 mg-400 mg-40 mg/5 mL oral susp (Mintox M aximum Strength) 20 ml PO Q6H PRN UPSET STOMACH 01/09/21 calcium carb-ergocalciferol (vit D2) 500 mg (1,250 mg)-200 unit tablet 1 tab PO DAILY SUPPLEMENT 01/09/21 glimepiride 4 mg tablet 4 mg PO BREAKFAST DM 01/09/21 metformin 500 mg tablet (Glucophage) 500 mg PO TID DM 01/09/21 mirtazapine 15 mg tablet 15 mg PO QHS 01/09/21 tamsulosin 0.4 mg capsule 0.4 mg PO QHS 01/09/21 benzonatate 100 mg capsule 200 mg PO TID PRN COUGH #30 caps 01/11/21 budesonide-formoterol HFA 80 mcg-4.5 mcg/actuation aerosol inhaler (Symbicort) 2 puff inhalation BID 02/06/21 acetaminophen 500 mg tablet (Pharbetol) 1,000 mg PO Q8H PRN Pain 07/15/21 docusate sodium 100 mg capsule 100 mg PO BID 07/15/21 bisacodyl 10 mg rectal suppository (Dulcolax (bisacodyl)) 10 mg MA DAILY PRN Constipation 01/22/22 guaifenesin 100 mg/5 mL oral syrup 400 mg PO Q6H PRN Cough 01/22/22 pantoprazole 40 mg tablet,delayed release See Rx Instructions .Route .COMPLEX #56 tabs 06/02/22 empagliflozin 10 mg tablet (Jardiance) 10 mg PO DAILY diabetes 11/14/22 plecanatide 3 mg tablet (Trulance) 3 mg PO DAILY chronic constipation 11/14/22 clopidogrel 75 mg tablet 75 mg PO DAILY #30 tabs 11/17/22 isosorbide mononitrate 30 mg tablet,extended release 24 hr 30 mg PO DAILY #30 tabs 11/17/22 spironolactone 25 mg tablet 25 mg PO DAILY #30 tabs 11/17/22 Hospital Course Operations None Procedures 2-D Echocardiogram and Cardiac catheterization Summary of Care Provided Minutes Spent on Discharge: 32 Weight / BMI Weight Weight: 147.2 kg Body Mass Index (BMI) 44.0 ABG / Lab / Microbiology Data Result Diagrams: 11/17/22 04:39 11/17/22 04:39 Laboratory: Laboratory Results - last 24 hr 11/16/22 11:24: POC Glucose 162 H 11/16/22 16:27: POC Glucose 212 H 11/16/22 21:16: POC Glucose 183 H 11/17/22 04:39: WBC 10.8, RBC 4.63, Hgb 13.1, Hct 42.0, MCV 90.7, MCH 28.3, MCHC 31.2 L, RDW Std Deviation 53.3 H, RDW Coeff of Yue 16.2 H, Plt Count 217, MPV 9.9 11/17/22 04:39: Sodium 137, Potassium 3.8, Chloride 103, Carbon Dioxide 28.0, Anion Gap 6, BUN 24 H, Creatinine 0.91, Estim Creat Clear Calc 69.88, Est GFR (MDRD) Af Amer 103, Est GFR (MDRD) Non-Af 85, BUN/Creatinine Ratio 26.3 H, Glucose 155 H, Calcium 8.9, Total Bilirubin 1.00, AST 32, ALT 25, Alkaline Phosphatase 94, Total Protein 7.1, Albumin 3.0 L, Globulin 4.1, Albumin/Globulin Ratio 0.7 L 11/17/22 06:30: POC Glucose 158 H Radiography Diagnostic Testing: Radiology Impression Echocardiogram 11/14/22 14:09 Interpretation Summary Normal LV size. Left ventricular systolic function is normal. The estimated ejection fraction is 60 %. Mild concentric left ventricular hypertrophy. Pulmonary artery systolic pressure is 28 mmHg. Contrast injection was performed. Ordering Physician: David Cox Referring Physician: Bertrand Warner Performed By: Aracelis Zaman RCS D/C Instructions Discharge Diet: Low fat / Low cholesterol Call your doctor if you observe: Shortness of breath and Chest pain Meaningful Use Info Meaningful Use Diagnoses (Choose all that apply): None applicable Discharge Plan Admission Admit Date/Time: 11/13/22 19:31 Primary Reason for Your Visit: unstable angina Attending Provider: Daquan Mckeon Primary Care Provider: Bertrand Warner Consulting Providers: Kendall Linares ; Magdalena Grace ; David Cox Discharge Orders/Prescriptions Prescriptions: New clopidogrel 75 mg Tablet 75 mg PO DAILY Qty: 30 0RF isosorbide mononitrate 30 mg Tablet Extended Release 24 Hr 30 mg PO DAILY Qty: 30 0RF spironolactone 25 mg Tablet 25 mg PO DAILY Qty: 30 0RF Continued nitroglycerin 0.4 MG tablet 0.4 mg sublingual Q5M PRN (Reason: Chest Pain) Label Comments: CHEST aspirin 81 MG tablet,chewable 81 mg PO DAILY Label Comments: HEART HEALTH magnesium oxide 400 MG tablet 400 mg PO DAILY Label Comments: MAGNESIUM SUPPLEMENT oxybutynin chloride 5 MG tablet 5 mg PO TID metoprolol tartrate 25 MG tablet 25 mg PO BID furosemide 40 MG tablet 80 mg PO DAILY atorvastatin 80 MG tablet 80 mg PO QHS montelukast 10 MG tablet 10 mg PO DAILY fluticasone propionate 1 SPRAY spray,suspension 2 spray NASAL DAILY cholecalciferol (vitamin D3) 2,000 UNIT capsule 2,000 unit PO DAILY tamsulosin 0.4 mg Capsule 0.4 mg PO QHS mirtazapine 15 mg Tablet 15 mg PO QHS glimepiride 4 mg Tablet 4 mg PO BREAKFAST alum-mag hydroxide-simeth [Mintox Maximum Strength] 400-400-40 mg/5 mL Suspension 20 ml PO Q6H PRN (Reason: UPSET STOMACH) calcium carbonate-vitamin D2 500 mg(1,250mg) -200 unit Tablet 1 tab PO DAILY benzonatate 100 mg Capsule 200 mg PO TID PRN (Reason: COUGH) Qty: 30 0RF budesonide-formoterol [Symbicort] 80-4.5 mcg/actuation Hfa Aerosol Inhaler 2 puff INHALATION BID acetaminophen [Pharbetol] 500 mg Tablet 1,000 mg PO Q8H PRN (Reason: Pain) docusate sodium 100 MG capsule 100 mg PO BID bisacodyl [Dulcolax (bisacodyl)] 10 mg Suppository 10 mg MA DAILY PRN (Reason: Constipation) guaifenesin 100 mg/5 mL Syrup 400 mg PO Q6H PRN (Reason: Cough) Trulance 3 mg tablet 3 mg PO DAILY Jardiance 10 mg Tablet 10 mg PO DAILY pantoprazole 40 mg tablet,delayed release (DR/EC) See Rx Instructions .ROUTE .COMPLEX Qty: 56 5RF Dose Instruction: TAKE 1 TABLET BY MOUTH TWICE A DAY Rx Instructions: TAKE 1 TABLET BY MOUTH TWICE A DAY Held metformin [Glucophage] 500 mg tablet 500 mg PO TID Hold Instructions: Resume on 11/21/22. Discontinued potassium chloride 20 mEq tablet extended release 20 meq PO BID Qty: 60 0RF meloxicam 7.5 mg Tablet 7.5 mg PO DAILY ibuprofen 600 mg tablet 400 mg PO Q6H PRN (Reason: Pain) Referrals / Follow Up: [facility] [Provider Group] - Within 1 Month Bertrand Warner MD [Primary Care Provider] - Within 2 Weeks Disposition Disposition (needs filled in before D/C Order can be placed): Home, Self Care Charges/Coding Visit Charges Inpatient E&M: 62672 Disch Hosp >30min
--- NOTE | 2022-11-17 11:18 | PHA.DC.MR ---
Pharmacy Service has performed discharge medication reconciliation for this patient. The patient's discharge medication list was reviewed for discrepancies and discrepancies were resolved. Home Medications aspirin 81 mg chewable tablet 81 mg PO DAILY HEALTH MAINTENANCE 06/09/13 nitroglycerin 0.4 mg sublingual tablet 0.4 mg sublingual Q5M PRN Chest Pain 06/09/13 magnesium oxide 400 mg (241.3 mg magnesium) tablet 400 mg PO DAILY MAGNESIUM 10/07/15 oxybutynin chloride 5 mg tablet 5 mg PO TID DYSURIA 01/27/16 metoprolol tartrate 25 mg tablet 25 mg PO BID HTN 05/08/16 furosemide 40 mg tablet 80 mg PO DAILY CHF 10/17/16 atorvastatin 80 mg tablet 80 mg PO QHS HLD 08/05/18 cholecalciferol (vitamin D3) 50 mcg (2,000 unit) capsule 2,000 unit PO DAILY SUPPLEMENT 11/24/19 fluticasone propionate 50 mcg/actuation nasal spray,suspension 2 spray NASAL DAILY ALLERGIES 11/24/19 montelukast 10 mg tablet 10 mg PO DAILY ALLERGIES 11/24/19 aluminum-mag hydroxide-simethicone 400 mg-400 mg-40 mg/5 mL oral susp (Mintox Maximum Strength) 20 ml PO Q6H PRN UPSET STOMACH 01/09/21 calcium carb-ergocalciferol (vit D2) 500 mg (1,250 mg)-200 unit tablet 1 tab PO DAILY SUPPLEMENT 01/09/21 glimepiride 4 mg tablet 4 mg PO BREAKFAST DM 01/09/21 metformin 500 mg tablet (Glucophage) 500 mg PO TID DM 01/09/21 mirtazapine 15 mg tablet 15 mg PO QHS mental health 01/09/21 tamsulosin 0.4 mg capsule 0.4 mg PO QHS prostate 01/09/21 benzonatate 100 mg capsule 200 mg PO TID PRN COUGH #30 caps 01/11/21 budesonide-formoterol HFA 80 mcg-4.5 mcg/actuation aerosol inhaler (Symbicort) 2 puff inhalation BID breathing 02/06/21 acetaminophen 500 mg tablet (Pharbetol) 1,000 mg PO Q8H PRN Pain 07/15/21 docusate sodium 100 mg capsule 100 mg PO BID stool softner 07/15/21 bisacodyl 10 mg rectal suppository (Dulcolax (bisacodyl)) 10 mg OK DAILY PRN Constipation 01/22/22 guaifenesin 100 mg/5 mL oral syrup 400 mg PO Q6H PRN Cough 01/22/22 pantoprazole 40 mg tablet,delayed release See Rx Instructions .Route .COMPLEX #56 tabs 06/02/22 empagliflozin 10 mg tablet (Jardiance) 10 mg PO DAILY diabetes 11/14/22 plecanatide 3 mg tablet (Trulance) 3 mg PO DAILY chronic constipation 11/14/22 clopidogrel 75 mg tablet 75 mg PO DAILY #30 tabs 11/17/22 isosorbide mononitrate 30 mg tablet,extended release 24 hr 30 mg PO DAILY #30 tabs 11/17/22 spironolactone 25 mg tablet 25 mg PO DAILY #30 tabs 11/17/22
[2022-11-17 11:25] LABS: Bedside Glucose 210 mg/dL (74-106)
--- NOTE | 2022-11-17 14:33 | CASEMGMT ---
BREEZY faxed d/c orders to [facility]. BREEZY called [employer] as required by insurance and requested transport be set up via wheelchair with [facility]. Confirmation number is [id number]. Stacy TSANG
--- NOTE | 2022-11-17 15:14 | NURSING ---
Madeline from [facility] updated on discharge medications.
--- NOTE | 2022-11-17 15:15 | CASEMGMT ---
BREEZY received notification that [facility] patient at 330 via wheelchair. BREEZY called [facility] and let them know this information. BREEZY Dawn notified patient. Stacy TSANG
--- NOTE | 2022-11-20 14:11 | CL.D_ITS ---
Patient Name: LINCOLN KENDRICK Study Date: 11/16/2022 Performing: Pierre Mercado MD Ht: 72 inches 182.88 cm : 1940 Wt: 328 lbs 148.6 kg Age: 82 Gender: male BSA: 2.63 PROCEDURE(S) PERFORMED [id number])LHC/COR/CABG CLINICAL PROFILE AND INDICATIONS Indications: Suspected CAD Heart Failure: None Stress/Imaging Date: 08/24/22 CAD Presentations: Unstable angina. CONCLUSIONS Coronary artery bypass graft with WOODS to the diagonal vessel patent and saphenous vein graft to the LAD sequential patent and dominant circumflex artery with no high-grade stenosis. First obtuse marginal branch with ostial stenosis. RECOMMENDATIONS Medical therapy DESCRIPTION OF PROCEDURE The patient arrived to the procedure lab. The risks and benefits of the procedure as well as a full description of our services here and current unavailability of surgical backup were fully explained to the patient and/or their significant other prior to the catheterization. The Timeout was completed, verifying the correct patient and procedure. The patient's procedural site was prepped and draped in the usual fashion. Local anesthetic was given subcutaneously to right groin region with Lidocaine 2% by Dr Rojas. Using a modified Seldinger technique, arterial access was obtained via the right femoral artery, a 5Fr sheath was inserted by Dr Rojas, arterial access was obtained via the right femoral artery, with Micropuncture set Left Coronary Artery selective angiography was performed in multiple views using a 5 Fr. JL4 catheter. Right Coronary Artery selective angiography was then performed in multiple views using a 5 Fr. 3DRC (Rigoberto) catheter. Saphenous Vein graft to the LAD selective angiography was performed in multiple views using a 5 Fr. 3DRC (Rigoberto) catheter. Left internal mammary artery graft to the LAD selective angiography was performed in multiple views using a 5 Fr. IM catheter.The arterial sheath was pulled and a Perclose closure device was deployed for hemostasis CORONARY ANGIOGRAPHY DOMINANCE: Left Dominant LEFT HEART ASSESSMENT Normal LV wall motion Normal Left Ventricular systolic function LEFT MAIN: No significant disease noted LEFT ANTERIOR DESCENDING ARTERY: MID LAD: is occluded DIAGONAL 1: Proximal - Moderate luminal irregularities up to 50% CIRCUMFLEX ARTERY: Dominant large vessel with first obtuse marginal branch with ostial 80% stenosis and the rest of the vessel have mild to moderate diffuse disease RIGHT CORONARY ARTERY: Moderate luminal irregularities up to 50% GRAFTS: WOODS graft to the 1st Diagonal Patent vessel with known clipped thoracic branch and anastomosis to diagonal vessel and retrogradely fills the LAD Saphenous Vein graft to the Mid LAD There Appears to be a sequential graft mid and distal LAD with eccentric 50% stenotic lesion in the body of the graft and then distally at the anastomotic site to the distal LAD with an 80% stenosis. The distal LAD however is also filled free of the diagonal vessel COMPLICATIONS No Complications PROCEDURE MEDICATIONS Fentanyl 25 mcg IV Versed 0.5 mg IV Fentanyl 50 mcg IV Oxygen: 2 L/min via nasal cannula SUMMARY OF HEMODYNAMIC DATA Time AIR REST ECG 09:12:27 AO 159/17 (51) SA 09:33:02 Signed By Pierre Mercado MD On 11/20/2022 14:10:44 Pierre Mercado MD
== END 2022-11-17 15:41 | disposition home or self-care (01) | DRG 287 ==
LOC: ED 19:36 → PCU 19:59
PROVIDERS: Internal Medicine; Physician Assistant; Specialist; Admitting Provider Family Medicine; Emergency Provider Student in an Organized Health Care Education/Training Program; PCP Family Medicine
DX: I25.110 Atherosclerotic heart disease of native coronary artery with unstable angina pectoris (principal); I44.2 Atrioventricular block, complete; I13.0 Hypertensive heart and chronic kidney disease with heart failure and stage 1 through stage 4 chronic kidney disease, or unspecified chronic kidney disease; Q23.1 Congenital insufficiency of aortic valve; Z68.42 Body mass index [BMI] 45.0-49.9, adult; K22.2 Esophageal obstruction; E11.21 Type 2 diabetes mellitus with diabetic nephropathy; I50.9 Heart failure, unspecified; Z79.4 Long term (current) use of insulin; J44.9 Chronic obstructive pulmonary disease, unspecified; E66.01 Morbid (severe) obesity due to excess calories; I48.0 Paroxysmal atrial fibrillation; E11.22 Type 2 diabetes mellitus with diabetic chronic kidney disease; K21.9 Gastro-esophageal reflux disease without esophagitis; J30.9 Allergic rhinitis, unspecified; I87.8 Other specified disorders of veins; G47.33 Obstructive sleep apnea (adult) (pediatric); E78.5 Hyperlipidemia, unspecified; N18.9 Chronic kidney disease, unspecified; Z95.0 Presence of cardiac pacemaker; Z79.82 Long term (current) use of aspirin; Z95.5 Presence of coronary angioplasty implant and graft; Z79.51 Long term (current) use of inhaled steroids; F32.A Depression, unspecified; R94.39 Abnormal result of other cardiovascular function study; N40.0 Benign prostatic hyperplasia without lower urinary tract symptoms
CPT/HCPCS: 36415; 71045; 80048; 80053; 80061; 82962; 83735; 84484; 85025; 85027; 93005; 93306; 93455; 94640; 94668; 97110; 97116; 97161; 97165; 97530; 99152; 99153; 99285; J7030; J7040; Q9957; A4216; C1760; C1769; C8929; Q9967

== ENCOUNTER 2022-12-03 10:44 | Emergency (ER) | payer MEDICARE, MEDICAID, SELFPAY ==
[2022-12-03 10:46] VITALS: BP 147/44; PULSE 65; RESP 16; TEMP 37.6; O2SAT 94; BMI 45.3
--- NOTE | 2022-12-03 11:23 | CT_ITS ---
HISTORY: Diffuse abdominal pain. TECHNIQUE: Helically acquired images were obtained of the abdomen and pelvis after the intravenous administration of 100 mL Isovue-300. A radiation dose optimization technique was used for this scan. 504 images. COMPARISON: 04/24/2022. CTA chest 01/09/2021. FINDINGS: LOWER CHEST: Borderline cardiomegaly with pacemaker and midline sternotomy. 7 mm pleural-based right lower lobe nodule, unchanged size since 2020. Unchanged plaque-like opacity in the posterior left lower lobe since 2021. BOWEL: Mild fluid distention of small bowel and colon. Bowel including appendix nondilated. Colonic the articular lordosis without focal inflammatory change observed. PERITONEUM: No significant ascites. LIVER: Fatty infiltration. Stable round hypoenhancing cystic lesions measuring 9 mm in the left lobe and 17 mm in the right lobe. GALLBLADDER/BILIARY TREE: Gallbladder absent. PANCREAS: Fatty atrophy. KIDNEYS: No hydronephrosis. Stable 4.2 cm right renal cyst and additional lesion too small to characterize. Unchanged 2.2 cm left renal cyst. SPLEEN/ADRENAL GLANDS: Unremarkable. VESSELS: No abdominal aortic aneurysm. Atherosclerosis of the abdominal aorta and its major branches. PELVIC ORGANS: Artifact from bilateral hip arthroplasties. 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 ABDOMINAL WALL: Fat-containing inguinal hernias. BONES: Degenerative change. CT/Abdomen/Pelvis W IV Cont ONLY IMPRESSION: Mild enteritis with mild fluid distention of small bowel and colon. Colonic diverticulosis without acute diverticulitis. Stable 7 mm right lower lobe pulmonary nodule and plaque-like opacity in the left lower lobe; recommend follow-up CT chest. Other chronic findings as above. Electronically Signed: Neeru Mckeon MD at 12:39 EDT ,
--- NOTE | 2022-12-03 11:24 | EKG12_ITS ---
Test Reason : SOB Blood Pressure : / mmHG Vent. Rate : 062 BPM Atrial Rate : 061 BPM P-R Int : 000 ms QRS Dur : 158 ms QT Int : 468 ms P-R-T Axes : 000 -48 123 degrees QTc Int : 475 ms Ventricular-paced rhythm with occasional Premature ventricular complexes Abnormal ECG Confirmed by VIMAL ZULETA ([id number]), multimedia editor LEIGH CABA ([id number]) on 12/08/2022 7:43:57 AM Referred By: NICOL Confirmed By:VIMAL ZULETA
--- NOTE | 2022-12-03 11:24 | RAD_ITS ---
HISTORY: chest pain, sob, cough. TECHNIQUE: XR Chest 2 Views. COMPARISON: 11/13/2022. FINDINGS: CARDIOMEDIASTINAL BORDERS: Unchanged cardia mediastinal enlargement with cardiac pacemaker, midline sternotomy, and left-sided surgical clips. LUNGS: Patchy left perihilar and basilar opacities again seen. Mild linear opacities in the right lung base again seen. PLEURA: No pleural effusion or pneumothorax seen. OSSEOUS STRUCTURES: Degenerative change. RAD/Chest PA and Lateral IMPRESSION: No significant interval change in left perihilar and bibasilar opacities which may be infectious or inflammatory but recommend follow-up to resolution or CT to exclude underlying lesion. Electronically Signed: Neeru Mckeon MD at 12:50 EDT ,
--- NOTE | 2022-12-03 11:25 | EDS_ITS ---
HPI History of Present Illness Chief Complaint: Headache Informant: patient and EMS Narrative Narrative: Patient sent from [facility] after starting did not feel well this morning. He states for the past 5 or 6 hours, he has been having chest pressure, some shortness of breath, diffuse abdominal pain/cramping, some mild frontal headaches off-and-on. He does not have a severe headache or any loss of consciousness but he has felt lightheaded all morning that was worse when he was standing and shaving at the mirror. Denies any syncope or near syncope. Some nausea and did not feel like eating or drinking today. [facility] Medical History (Updated 12/03/22 @ 15:[address] Ruddy Kern MD) Asthma Asthma Atherosclerosis of coronary artery of [place] heart without angina pectoris Atrial fibrillation Benign essential HTN BiPAP (biphasic positive airway pressure) dependence Cancer Cardiology follow-up encounter Chest pain CHF (congestive heart failure) Cholecystitis Chronic venous insufficiency Complete heart block Congestive heart failure (CHF) Constipation COPD (chronic obstructive pulmonary disease) Diabetes Diverticulosis DM2 (diabetes mellitus, type 2) Dysphagia Edema of both legs Esophageal stricture Fall GERD (gastroesophageal reflux disease) HLD (hyperlipidemia) Hyperlipemia Hypertension Ileus following gastrointestinal surgery Junctional escape rhythm Mobitz type 1 second degree atrioventricular block Morbid obesity Non-smoker Obstructive sleep apnea Pacemaker Pancreatic abnormality Paroxysmal atrial fibrillation Prostate cancer Shortness of breath on exertion Swelling of lower extremity Symptomatic bradycardia Thyroid disease Ulcer of left lower extremity with fat layer exposed Ulcer of right lower extremity with fat layer exposed Uses wheelchair Venous stasis dermatitis of both lower extremities Wears glasses Home Medications aspirin 81 mg chewable tablet 81 mg PO DAILY HEALTH MAINTENANCE 06/09/13 [History Last Taken 01/20/22] nitroglycerin 0.4 mg sublingual tablet 0.4 mg sublingual Q5M PRN Chest Pain 06/09/13 [History Last Taken 10/17/16 09:00] magnesium oxide 400 mg (241.3 mg magnesium) tablet 400 mg PO DAILY MAGNESIUM 10/07/15 [History Last Taken 01/09/21] oxybutynin chloride 5 mg tablet 15 mg PO DAILY DYSURIA 01/27/16 [History Last Taken 01/09/21] furosemide 40 mg tablet 80 mg PO DAILY CHF 10/17/16 [History Last Taken 01/09/21] atorvastatin 80 mg tablet 80 mg PO QHS HLD 08/05/18 [History Last Taken 01/08/21] cholecalciferol (vitamin D3) 50 mcg (2,000 unit) capsule 2,000 unit PO DAILY SUPPLEMENT 11/24/19 [History Last Taken 01/09/21] fluticasone propionate 50 mcg/actuation nasal spray,suspension 2 spray NASAL DAILY ALLERGIES 11/24/19 [History Last Taken 01/09/21] montelukast 10 mg tablet 10 mg PO DAILY ALLERGIES 11/24/19 [History Last Taken 01/08/21] calcium carb-ergocalciferol (vit D2) 500 mg (1,250 mg)-200 unit tablet 1 tab PO DAILY SUPPLEMENT 01/09/21 [History Last Taken 01/09/21] glimepiride 4 mg tablet 4 mg PO BREAKFAST DM 01/09/21 [History Last Taken 01/09/21] metformin 500 mg tablet (Glucophage) 500 mg PO BID DM 01/09/21 [History Last Taken 01/09/21] mirtazapine 15 mg tablet 15 mg PO QHS mental health 01/09/21 [History Last Taken 01/08/21] tamsulosin 0.4 mg capsule 0.4 mg PO QHS prostate 01/09/21 [History Last Taken 01/08/21] docusate sodium 100 mg capsule 100 mg PO DAILY stool softner 07/15/21 [History Last Taken Unknown] empagliflozin 10 mg tablet (Jardiance) 10 mg PO DAILY diabetes 11/14/22 [History Last Taken Unknown] plecanatide 3 mg tablet (Trulance) 3 mg PO DAILY chronic constipation 11/14/22 [History Last Taken Unknown] clopidogrel 75 mg tablet 75 mg PO DAILY #30 tabs 11/17/22 [Rx Last Taken Unknown] fluticasone furoate 200 mcg-vilanterol 25 mcg/dose inhalation powder (Breo Ellipta) 1 inh inhalation DAILY Check with primary doctor 11/17/22 [History Last Taken Unknown] isosorbide mononitrate 30 mg tablet,extended release 24 hr 30 mg PO DAILY #30 tabs 11/17/22 [Rx Last Taken Unknown] losartan 25 mg tablet 25 mg PO QHS Check with primary doctor 11/17/22 [History Last Taken Unknown] metoprolol succinate 25 mg tablet,extended release 24 hr 25 mg PO DAILY Check with primary doctor 11/17/22 [History Last Taken Unknown] sitagliptin phosphate 100 mg tablet (Januvia) 100 mg DAILY Check with primary doctor 11/17/22 [History Last Taken Unknown] spironolactone 25 mg tablet 25 mg PO DAILY #30 tabs 11/17/22 [Rx Last Taken Unknown] pantoprazole 40 mg tablet,delayed release See Rx Instructions .Route .COMPLEX #56 tabs 11/19/22 [Rx Last Taken Unknown] omega-3 fatty acids-vitamin E 1,000 mg capsule 1 cap PO DAILY 12/03/22 [History Last Taken Unknown] Allergy/AdvReac Type Severity Reaction Status Date / Time lisinopril Allergy Unknown Verified 11/13/22 14:30 paroxetine [From Paxil] Allergy NEEDS Verified 11/13/22 14:30 FOLLOW-UP sertraline Allergy Unknown Verified 11/13/22 14:30 enoxaparin [From Lovenox] AdvReac PT UNSURE Verified 11/14/22 04:19 OF REACTION Family History Mother Lung cancer Father CAD (coronary artery disease) Hypertension Heart disease Myocardial infarction Brother Myocardial infarction Hypertension Heart disease CAD (coronary artery disease) Surgical History Coronary angioplasty status H/O coronary artery bypass surgery History of bilateral hip arthroplasty History of cholecystectomy Hx of CABG Presence of cardiac pacemaker S/P CABG x 2 Status post cholecystectomy Social History household members: none housing: assisted living facility number of children: 0 current occupational status: retired Smoking Status: Never smoker alcohol intake: never substance use type: does not use ROS ROS ED Constitutional Constitutional ED: Denies chills or fever(s) Eyes Eyes: Denies change in vision or diplopia ENT ENT ED: Denies rhinorrhea or sore throat Cardiovascular Cardiovascular: Reports chest pain, leg edema and leg ulcers; Denies orthopnea or palpitations Respiratory/Chest Respiratory/Chest: Reports cough, dyspnea and sputum; Denies hemoptysis or orthopnea Gastrointestinal Gastrointestinal: Reports abdominal pain and nausea; Denies diarrhea, melena or vomiting Genitourinary Genitourinary ED: Denies dysuria or hematuria Musculoskeletal Musculoskeletal: Denies back pain or neck pain Integumentary Reports other Details: Spontaneous blister left casillas/leg ; Denies abscess or rash Neurologic Neurologic: Reports headache(s); Denies paresthesias or weakness Psychiatric Psychiatric: Denies anxiety or suicidal thoughts EXAM Physical Exam Const Vital Signs: 12/03/22 10:46 12/03/22 11:38 12/03/22 11:38 Temperature 99.7 F H Temperature Source Oral Pulse Rate 65 60 Respiratory Rate 16 18 Respiratory Pattern Normal Blood Pressure 147/44 H Blood Pressure Mean 78 Pulse Ox 94 96 Oxygen Delivery Method Room Air Room Air Oxygen Flow Rate (L/min) 12/03/22 13:52 Temperature Temperature Source Pulse Rate 65 Respiratory Rate 16 Respiratory Pattern Blood Pressure 156/62 H Blood Pressure Mean 93 Pulse Ox 91 Oxygen Delivery Method Nasal Cannula Oxygen Flow Rate (L/min) 2 Positive well nourished, well developed and obese General Appearance ED: well developed and NAD Nutritional Appearance: obese HEENT Reports moist mucous membranes normocephalic and atraumatic Eyes PERRL and EOMs intact bilaterally Neck full ROM, no lymphadenopathy, supple and no JVD Chest Wall inspection of chest normal and palpation of chest normal Resp normal respiratory effort and clear to auscultation bilaterally Resp Narrative: Diminished throughout symmetrically. No respiratory distress. Conversive in full sentences. Cardio regular rate, regular rhythm and no murmurs GI non-distended GI Narrative: Obesity limits the exam. Normal bowel sounds. Diffusely tender. Well-healed surgical incision right upper quadrant. Auscultation: normoactive bowel sounds Palpation: soft Back/Spine no CVA tenderness General Back: other FROM Extremity Extremity Narrative: No ulcerated wounds or signs of acute infection. General Extremety ED: Yes edema; Negative for pulses abnormal or tenderness General Extremity: edema bilateral lower extremity Details: moderate (Changes of chronic stasis dermatitis bilaterally. Nonruptured small 1 cm nontender bulla left casillas without surrounding erythema.); Negative for pulses abnormal Neuro oriented x3, CN's II-XII intact bilaterally and no sensory deficits noted Sensorium / Orientation: awake and alert Motor Exam: strength 5/5 throughout Psych mental status grossly normal Psych Narrative: Flat affect Skin no rashes or lesions noted and no wounds MDM MDM MDM Narrative Medical decision making narrative: Patient's symptoms are nonspecific, and his work-up is as well. He has a low- grade temperature 99.7 here, he does not appear septic and his exam is benign. His exam is also limited by obesity. His lungs are clear, his chest x-ray shows some nonspecific opacities in the bases, they do not appear to be acute pneum onia on my interpretation of the two-view x-ray series. CT of the abdomen and pelvis was reviewed and I reviewed the report, and I agree with it. Does not appear to have any consolidations or pneumonia in the lower lobes of the lungs on the CT to explain his symptoms. I do not think he needs a CT of the head, I think his headaches are a side effect of what ever illness he is having. Given the lack of evidence for a bacterial source, I suppose this is probably viral until proven otherwise. I did send COVID and flu swab those were both negative. At this time, his vital signs are stable and I see no reason to admit him to the hospital for anything, so I think he is okay to go back to [facility]. He did feel better after albuterol aerosol, and his chest tightness is gone, suggesting some of that is COPD-mediated. However given his leg edema, diabetes, and history of CHF along with the fact that he is already hyperglycemic at 206, I do not think putting him on prednisone at this time would necessarily be beneficial, I discussed that with him and he is in agreement and will follow-up. Lab Data Attestation: I reviewed the patient's lab results. Labs: Laboratory Results - last 24 hr 12/03/22 12/03/22 12/03/22 11:30 11:30 11:30 WBC 10.2 RBC 4.51 L Hgb 12.9 L Hct 40.5 MCV 89.8 MCH 28.6 MCHC 31.9 L RDW Std Deviation 55.0 H RDW Coeff of Yue 16.7 H Plt Count 218 MPV 9.3 Immature Gran % (Auto) 0.900 Neut % (Auto) 83.6 H Lymph % (Auto) 4.6 L [place] % (Auto) 9.7 Eos % (Auto) 0.9 Baso % (Auto) 0.3 Absolute Neuts (auto) 8.6 H Absolute Lymphs (auto) 0.47 L Nucleated RBC % 0 Differential Comment SCANNED Sodium 138 Potassium 3.6 Chloride 105 Carbon Dioxide 27.0 Anion Gap 6 BUN 21 H Creatinine 0.96 Estim Creat Clear Calc 66.24 Est GFR (MDRD) Af Amer 97 Est GFR (MDRD) Non-Af 80 BUN/Creatinine Ratio 22.0 H Glucose 206 H Calcium 8.8 Total Bilirubin 1.00 AST 15 ALT 20 Alkaline Phosphatase 88 Troponin I High Sens 22 B-Natriuretic Peptide 120.2 H Total Protein 7.4 Albumin 3.0 L Globulin 4.4 H Albumin/Globulin Ratio 0.7 L Lipase 23 Urine Color Urine Clarity Urine pH Ur Specific [place] Urine Protein Urine Glucose (UA) Urine Ketones Urine Occult Blood Urine Nitrite Urine Bilirubin Urine Urobilinogen Ur Leukocyte Esterase Urine RBC Urine WBC Ur Squamous Epith Cells Urine Bacteria Urine Mucus 12/03/22 11:55 WBC RBC Hgb Hct MCV MCH MCHC RDW Std Deviation RDW Coeff of [place] Plt Count MPV Immature Gran % (Auto) Neut % (Auto) Lymph % (Auto) [place] % (Auto) Eos % (Auto) Baso % (Auto) Absolute Neuts (auto) Absolute Lymphs (auto) Nucleated RBC % Differential Comment Sodium Potassium Chloride Carbon Dioxide Anion Gap BUN Creatinine Estim Creat Clear Calc Est GFR (MDRD) Af Amer Est GFR (MDRD) Non-Af BUN/Creatinine Ratio Glucose Calcium Total Bilirubin AST ALT Alkaline Phosphatase Troponin I High Sens B-Natriuretic Peptide Total Protein Albumin Globulin Albumin/Globulin Ratio Lipase Urine Color Yellow Urine Clarity Clear Urine pH 5.0 Ur Specific [place] 1.020 Urine Protein 30 H Urine Glucose (UA) Normal Urine Ketones Negative Urine Occult Blood 10 H Urine Nitrite Negative Urine Bilirubin Negative Urine Urobilinogen Normal Ur Leukocyte Esterase Negative Urine RBC 0-5 SEEN Urine WBC 0 SEEN Ur Squamous Epith Cells 0-5 SEEN Urine Bacteria RARE Urine Mucus 0 SEEN Radiography Diagnostic Testing: Clinical Impression(s) from Imaging Studies Abdomen/Pelvis CT 12/03/22 11:23 IMPRESSION: Mild enteritis with mild fluid distention of small bowel and colon. Colonic diverticulosis without acute diverticulitis. Stable 7 mm right lower lobe pulmonary nodule and plaque-like opacity in the left lower lobe; recommend follow-up CT chest. Other chronic findings as above. Electronically Signed: Neeru Mckeon MD at 12:39 EDT Reading Location ID and State: [facility] / [place] Tel , Service support , Chest X-Ray 12/03/22 11:24 IMPRESSION: No significant interval change in left perihilar and bibasilar opacities which may be infectious or inflammatory but recommend follow-up to resolution or CT to exclude underlying lesion. Electronically Signed: Neeru Mckeon MD at 12:50 EDT Reading Location ID and State: [facility] / [place] Tel , Service support , Rhythm Strip Rhythm Strip: paced Rate: 65 Ectopy: PVC(s) EKG Initial EKG: Attestation: I personally reviewed and interpreted this EKG as follows: Interpretation: Paced Prior EKG tracings: available for review Prior: Unchanged Discharge Plan Triage Chief Complaint: Headache Other Complaint: Nausea/Vomiting ED Provider: Ruddy Kern Dx/Rx/DC Orders Clinical Impression: Acute viral syndrome, Bilateral edema of lower extremity, COPD (chronic obstructive pulmonary disease) Instructions: ED Viral Syndrome (Adult) Prescriptions: No Action nitroglycerin 0.4 MG tablet 0.4 mg sublingual Q5M PRN (Reason: Chest Pain) Label Comments: CHEST aspirin 81 MG tablet,chewable 81 mg PO DAILY Label Comments: HEART HEALTH magnesium oxide 400 MG tablet 400 mg PO DAILY Label Comments: MAGNESIUM SUPPLEMENT oxybutynin chloride 5 MG tablet 15 mg PO DAILY furosemide 40 MG tablet 80 mg PO DAILY atorvastatin 80 MG tablet 80 mg PO QHS montelukast 10 MG tablet 10 mg PO DAILY fluticasone propionate 1 SPRAY spray,suspension 2 spray NASAL DAILY cholecalciferol (vitamin D3) 2,000 UNIT capsule 2,000 unit PO DAILY metformin [Glucophage] 500 mg tablet 500 mg PO BID Hold Instructions: Resume on 11/21/22. tamsulosin 0.4 mg Capsule 0.4 mg PO QHS mirtazapine 15 mg Tablet 15 mg PO QHS glimepiride 4 mg Tablet 4 mg PO BREAKFAST calcium carbonate-vitamin D2 500 mg(1,250mg) -200 unit Tablet 1 tab PO DAILY docusate sodium 100 MG capsule 100 mg PO DAILY Trulance 3 mg tablet 3 mg PO DAILY Jardiance 10 mg Tablet 10 mg PO DAILY clopidogrel 75 mg Tablet 75 mg PO DAILY Qty: 30 0RF isosorbide mononitrate 30 mg Tablet Extended Release 24 Hr 30 mg PO DAILY Qty: 30 0RF spironolactone 25 mg Tablet 25 mg PO DAILY Qty: 30 0RF fluticasone furoate-vilanterol [Breo Ellipta] 200-25 mcg/dose blister with device 1 inh INHALATION DAILY losartan 25 mg tablet 25 mg PO QHS Rx Instructions: HOLD IF SYSTOLIC <100 metoprolol succinate 25 mg tablet extended release 24 hr 25 mg PO DAILY Rx Instructions: HOLD hr <55 HOLD SYSTOLIC <95 Januvia 100 mg tablet 100 mg DAILY Fish Oil 1,000 mg Capsule 1 cap PO DAILY pantoprazole 40 mg tablet,delayed release (DR/EC) See Rx Instructions .ROUTE .COMPLEX Qty: 56 5RF Dose Instruction: TAKE 1 TABLET BY MOUTH TWICE A DAY Rx Instructions: TAKE 1 TABLET BY MOUTH TWICE A DAY Primary Care Provider: Bertrand Warner Referrals: Bertrand Warner MD [Primary Care Provider] - 3-5 Days if not improving Disposition Disposition: Home, Self Care
[2022-12-03] MEDS: Albuterol 2.5 MG/3 ML VIAL.NEB. INHALATION (11:36)
[2022-12-03 11:38] VITALS: PULSE 60; RESP 18; O2SAT 96
[2022-12-03 11:40] LABS: Absolute Lymphocyte Count 0.47 X10^3/uL (0.83-4.51); Absolute Neutrophil Count 8.6 X10^3/uL (2.0-7.7); Basophil# 0.03 X10^3/uL; Basophil% 0.3 % (0-1); Eosinophil# 0.09 X10^3/uL; Eosinophils% 0.9 % (0-5); Hematocrit 40.5 % (40-54); Hemoglobin 12.9 g/dL (13.0-16.5); Lymphocyte # 0.47 X10^3/ul (0.83-4.51); Lymphocyte % 4.6 % (19-41); Mean Corp Hgb Conc 31.9 g/dL (32-36); Mean Corpuscular Hgb 28.6 pg (27.0-32.0); Mean Corpuscular Volume 89.8 fL (80-94); Mean Platelet Vol. 9.3 fl (6.2-12.0); Monocyte# 0.99 X10^3/uL; Monocyte% 9.7 % (0-10); NRBC Flagged by Analyzer 0 % (0-5); Neutrophil # 8.56 X10^3/uL (2.7-7.7); Neutrophil % 83.6 % (47-70); POSITIVE DIFFERENTIAL YES; Platelet Count 218 K/mm3 (150-450); RBC Distribution Width CV 16.7 % (11.6-14.6); Red Blood Count 4.51 M/mm3 (4.6-6.2); White Blood Count 10.2 K/mm3 (4.4-11.0)
[2022-12-03 11:44] LABS: Differential Indicated SCAN CRITERIA MET
[2022-12-03 11:57] LABS: ALB/GLOB Ratio 0.7 RATIO (0.9-2.4); AST(SGOT) 15 U/L (15-37); Alanine Aminotransfer ALT/SGPT 20 U/L (16-61); Alkaline Phosphatase 88 U/L (45-117); Anion Gap 6 (5-15); BUN 21 mg/dL (7-18); Calcium,Total 8.8 mg/dL (8.5-10.1); Chloride 105 mmol/L (98-107); Creatinine, Serum 0.96 mg/dL (0.70-1.30); EST Glomerular Filtration Rate 80 mL/min (>60); Est Glom Filt Rate - Afr Amer 97 mL/min (>60); Estimated Creatinine Clearance 66.24 ml/min; Globulin 4.4 g/dL (2.2-4.2); Glucose 206 mg/dL (74-106); Lipase 23 U/L (13-75); Potassium 3.6 mmol/L (3.5-5.1); Protein, Total 7.4 g/dL (6.4-8.2); Sodium Level 138 mmol/L (136-145); Troponin-I HS 22 pg/mL (3.0-78.0)
[2022-12-03 12:01] LABS: Mucous, Urine 0 SEEN /hpf (<or=2+); White Blood Cells 0 SEEN /hpf (0-5)
[2022-12-03 12:05] LABS: Color, Urine Yellow (Yellow); Glucose, Dipstick Normal (Normal); Ketone-Dipstick Negative (Negative); Leukocyte Esterase-Dipstick Negative /ul (Negative); Nitrite-Dipstick Negative (Negative); Occult Blood-Urine 10 /ul (Negative); Protein-Dipstick 30 mg/dl (Negative); Urine Bilirubin Dipstick Negative (Negative); Urine Clarity Clear (Clear); Urine Urobilinogen Normal (Normal)
[2022-12-03 12:07] LABS: Differential Comment SCANNED
[2022-12-03 12:11] LABS: Bacteria RARE /hpf (None Seen); Red Blood Cells-Urine 0-5 SEEN /hpf (0-5); Squamous Epithelial Cells - UA 0-5 SEEN /hpf (0-5)
[2022-12-03 12:18] LABS: BNP,B-Type NATRIURETIC PEPTIDE 120.2 pg/mL (0-100)
--- NOTE | 2022-12-03 12:53 | ED.RN ---
PT'S O2 SATS NOTED TO DECREASE TO 84% ON ROOM AIR. THIS RN APPLIES 2L O2 VIA NC, PT O2 SATS RISE TO 93%. DR. SERNA NOTIFED
[2022-12-03 13:52] VITALS: BP 156/62; PULSE 65; RESP 16; O2SAT 91
[2022-12-03 16:35] VITALS: BP 132/61; PULSE 60; RESP 18; O2SAT 95
== END 2022-12-03 17:17 | disposition home or self-care (01) ==
PROVIDERS: Emergency Provider Emergency Medicine; PCP Family Medicine; Visit Provider Emergency Medicine
DX: B34.9 Viral infection, unspecified (principal); J44.9 Chronic obstructive pulmonary disease, unspecified; I11.0 Hypertensive heart disease with heart failure; I50.9 Heart failure, unspecified; E11.9 Type 2 diabetes mellitus without complications; R11.2 Nausea with vomiting, unspecified; R51.9 Headache, unspecified; E78.5 Hyperlipidemia, unspecified; I25.10 Atherosclerotic heart disease of native coronary artery without angina pectoris; R50.9 Fever, unspecified; R10.84 Generalized abdominal pain; R60.0 Localized edema
CPT/HCPCS: 71046; 74177; 80053; 81001; 83690; 83880; 84484; 85025; 87428; 93005; 94640; 99285; Q9967; A4216

== ENCOUNTER 2023-06-09 12:32 | Inpatient (IN) | payer MEDICARE, MEDICAID, SELFPAY ==
[2023-06-09] VITALS (8 sets, daily range): BP systolic 148–176; BP diastolic 64–81; PULSE 60–67; RESP 18–21; TEMP 36.2–36.6; O2SAT 92–97; BMI 49.4; BMI 48.4
--- NOTE | 2023-06-09 13:00 | EX.ED.DYSGE1 ---
HPI History of Present Illness Chief Complaint: Cellulitis [facility] Medical History (Updated 06/09/23 @ 15:[address] Magdalena Grace MD) Asthma Atherosclerosis of coronary artery of [place] heart without angina pectoris Atrial fibrillation Benign essential HTN BiPAP (biphasic positive airway pressure) dependence Cancer Cardiology follow-up encounter Chest pain CHF (congestive heart failure) Cholecystitis Chronic venous insufficiency Complete heart block Congestive heart failure (CHF) Constipation COPD (chronic obstructive pulmonary disease) Diabetes Diverticulosis DM2 (diabetes mellitus, type 2) Dysphagia Edema of both legs Esophageal stricture Fall GERD (gastroesophageal reflux disease) HLD (hyperlipidemia) Hyperlipemia Hypertension Ileus following gastrointestinal surgery Junctional escape rhythm Mobitz type 1 second degree atrioventricular block Morbid obesity Non-smoker Obstructive sleep apnea Pacemaker Pancreatic abnormality Paroxysmal atrial fibrillation Prostate cancer Shortness of breath on exertion Swelling of lower extremity Symptomatic bradycardia Thyroid disease Ulcer of left lower extremity with fat layer exposed Ulcer of right lower extremity with fat layer exposed Uses wheelchair Venous stasis dermatitis of both lower extremities Wears glasses Home Medications aspirin 81 mg chewable tablet 81 mg PO DAILY HEALTH MAINTENANCE 06/09/13 [History Last Taken 01/20/22] nitroglycerin 0.4 mg sublingual tablet 0.4 mg sublingual Q5M PRN Chest Pain 06/09/13 [History Last Taken 10/17/16 09:00] magnesium oxide 400 mg (241.3 mg magnesium) tablet 400 mg PO DAILY MAGNESIUM 10/07/15 [History Last Taken 01/09/21] furosemide 40 mg tablet 80 mg PO DAILY CHF 10/17/16 [History Last Taken 01/09/21] atorvastatin 80 mg tablet 80 mg PO QHS HLD 08/05/18 [History Last Taken 01/08/21] cholecalciferol (vitamin D3) 50 mcg (2,000 unit) capsule 2,000 unit PO BID SUPPLEMENT 11/24/19 [History Last Taken 06/09/23] fluticasone propionate 50 mcg/actuation nasal spray,suspension 2 spray NASAL DAILY ALLERGIES 11/24/19 [History Last Taken 01/09/21] montelukast 10 mg tablet 10 mg PO DAILY ALLERGIES 11/24/19 [History Last Taken 01/08/21] glimepiride 4 mg tablet 4 mg PO BREAKFAST DM 01/09/21 [History Last Taken 01/09/21] mirtazapine 15 mg tablet 15 mg PO QHS mental health 01/09/21 [History Last Taken 01/08/21] tamsulosin 0.4 mg capsule 0.4 mg PO QHS prostate 01/09/21 [History Last Taken 06/08/23] docusate sodium 100 mg capsule 100 mg PO DAILY stool softner 07/15/21 [History Last Taken Unknown] plecanatide 3 mg tablet (Trulance) 3 mg PO DAILY chronic constipation 11/14/22 [History Last Taken 06/09/23] clopidogrel 75 mg tablet 75 mg PO DAILY #30 tabs 11/17/22 [Rx Last Taken Unknown] fluticasone furoate 200 mcg-vilanterol 25 mcg/dose inhalation powder (Breo Ellipta) 1 inh inhalation DAILY Check with primary doctor 11/17/22 [History Last Taken Unknown] isosorbide mononitrate 30 mg tablet,extended release 24 hr 30 mg PO DAILY #30 tabs 11/17/22 [Rx Last Taken Unknown] losartan 25 mg tablet 25 mg PO QHS Check with primary doctor 11/17/22 [History Last Taken Unknown] metoprolol succinate 25 mg tablet,extended release 24 hr 25 mg PO DAILY Check with primary doctor 11/17/22 [History Last Taken Unknown] sitagliptin phosphate 100 mg tablet (Januvia) 100 mg PO DAILY Check with primary doctor 11/17/22 [History Last Taken Unknown] spironolactone 25 mg tablet 25 mg PO DAILY #30 tabs 11/17/22 [Rx Last Taken 06/09/23] omega-3 fatty acids-vitamin E 1,000 mg capsule 1 cap PO DAILY 12/03/22 [History Last Taken Unknown] oxybutynin chloride 15 mg tablet,extended release 24 hr 15 mg PO DAILY 12/15/22 [History Last Taken Unknown] calcium carbonate 600 mg-vitamin D3 5 mcg (200 unit) tablet (Calcium 600 + D(3)) 1 tab PO BID 06/09/23 [History Last Taken 06/09/23] pantoprazole 40 mg tablet,delayed release 40 mg PO BID 06/09/23 [History Last Taken 06/09/23] Allergy/AdvReac Type Severity Reaction Status Date / Time lisinopril Allergy Unknown Verified 05/05/23 14:07 paroxetine [From Paxil] Allergy NEEDS Verified 05/05/23 14:07 FOLLOW-UP sertraline Allergy Unknown Verified 05/05/23 14:07 enoxaparin [From Lovenox] AdvReac PT UNSURE Verified 05/05/23 14:07 OF REACTION Family History Mother Lung cancer Father CAD (coronary artery disease) Hypertension Heart disease Myocardial infarction Brother Myocardial infarction Hypertension Heart disease CAD (coronary artery disease) Surgical History Coronary angioplasty status H/O coronary artery bypass surgery History of bilateral hip arthroplasty History of cholecystectomy Hx of CABG Presence of cardiac pacemaker S/P CABG x 2 Status post cholecystectomy Social History household members: none housing: assisted living facility number of children: 0 current occupational status: retired Smoking Status: Never smoker alcohol intake: never substance use type: does not use EXAM Physical Exam Const Vital Signs: 06/09/23 12:34 06/09/23 13:12 06/09/23 15:02 Temperature 97.1 F L Temperature Source Temporal Pulse Rate 67 61 Respiratory Rate 21 H Blood Pressure 176/79 H 167/77 H Blood Pressure Mean 111 107 Pulse Ox 93 96 94 Oxygen Delivery Method Room Air Room Air MDM MDM MDM Narrative Medical decision making narrative: HISTORY OF PRESENT ILLNESS: 82-year-old male here with concern for bilateral leg swelling redness conference soon for cellulitis. States he develop chest pain shortness breath just prior to arrival. He states he was seen as an outpatient and was told to come to the ED secondary to having bilateral redness and concern for cellulitis. Also notes a blister on his right leg as well. REVIEW OF SYSTEMS: Pertinent positives: Shortness of breath, bilateral lower extremity edema, fatigue Pertinent negatives: unilateral leg swelling, syncope, fever, vomiting. PHYSICAL EXAM: Nursing triage notes reviewed, Vital signs reviewed Constitutional: please see mdm HENT: MMM Eyes: Pupils equal round and reactive to light, Extraocular muscles intact Neck: No stridor, no JVD, full neck ROM Lungs: diminished in the bases, rales noted No increased work of breathing, no conversational dyspnea, no accessory muscle use, no nasal flaring. No respiratory distress noted Heart: Regular rate and rhythm, No murmurs, No rubs and No gallops, 2+ distal pulses (radial, femoral, posterior tibial) in all extremities Abdomen: Soft, there is no tenderness, rigidity, rebound or guarding, no obvious peritoneal signs, no palpable pulsatile abdominal masses, no auscultated abdominal bruit : No CVAT Extremities: 2-3+ pitting edema in bilateral lower extremities Neuro: No focal neurological deficits, cranial nerves II through XII intact, 5/5 strength in all extremities. Intact sensation to light touch in all extremities, 2+ reflexes bilateral patella tendons. Normal gait. No ataxia. Skin: Confluent erythema superimposed on chronic venous stasis changes, there is a blister noted in the right anterior tibia however there is no bullae crepitus or pain on proportion to exam to suggest necrotizing fasciitis MEDICAL DECISION MAKING: Chief Complaint: Bilateral leg swelling External records reviewed: Last ED visit in November 2022 for viral syndrome Factors affecting care: Hyperlipidemia, hypertension status post CABG, COPD, asthma, type 2 diabetes, Social determinants of health: none History obtained from others: none Consults: Internal medicine MDM Narrative: Patient was hemodynamically stable, afebrile, nontoxic-appearing. exam consistent with cellulitis. Exam is not consistent with necrotizing fasciitis. I considered the following differential diagnosis: Cellulitis, necrotizing fasciitis, CHF, anemia, arrhythmia, electrolyte disturbance, DVT I obtained a broad lab and imaging work-up to further elucidate the etiology of the patient complaints. ALL IMAGES (IF OBTAINED) HAVE BEEN PERSONALLY REVIEWED AND INTERPRETED BY MYSELF. EKG with ventricular paced rhythm, left axis deviation, no STEMI Troponin is negative, no evidence of myocardial ischemia CBC without significant leukocytosis, mild anemia, thrombocytopenia BMP without significant electrolyte abnormalities, no MARLA noted hyperglycemia BMP without evidence of significant electrolyte abnormalities, no anion gap, no acute kidney injury. Within normal limits Chest x-ray read myself shows evidence of pulmonary vascular congestion Bilateral DVT ultrasounds are negative The synthesis the patient labs, images, history, physical exam consistent with CHF exacerbation as well as bilateral lower extremity cellulitis. He received Lasix for CHF and vancomycin for cellulitis was admitted for further diuresis antimicrobial therapy. Patient was discussed with hospitalist. The patient and/or family, caregivers express understanding. The patient and/or family, caregivers agrees with the plan. Shared decision making: I will have a discussion with the patient and or visitors regarding risk/benefits of further testing or admission. They will be made aware of of the risk/benefits inherent in this decision they will be given the opportunity to voice understanding. Total critical care time today provided was at least 0 [] minutes. This excludes separately billable procedures. Critical care time (if documented) is secondary to the patient having high probability of clinically significant/life threatening deterioration in the patient's condition which required my urgent intervention. Impression: 1. CHF exacerbation 2. Bilateral lower extremity cellulitis 3. History of diabetes Dispo: Admit to the PCU Lab Data Labs: Laboratory Results - last 24 hr 06/09/23 13:40 WBC 7.3 RBC 4.33 L Hgb 11.9 L Hct 39.1 L MCV 90.3 MCH 27.5 MCHC 30.4 L RDW Std Deviation 59.3 H RDW Coeff of Yue 17.9 H Plt Count 215 MPV 9.6 Sodium 141 Potassium 4.4 Chloride 110 H Carbon Dioxide 27.0 Anion Gap 4 L BUN 23 H Creatinine 1.02 Estim Creat Clear Calc 62.34 Est GFR (MDRD) Af Amer 90 Est GFR (MDRD) Non-Af 74 BUN/Creatinine Ratio 22.5 H Glucose 191 H Calcium 8.9 Troponin I High Sens 19 C-React Prot Ext Range 10.10 H B-Natriuretic Peptide 92.1 Radiography Diagnostic Testing: Clinical Impression(s) from Imaging Studies Chest X-Ray 06/09/23 13:53 IMPRESSION: CHF with pulmonary edema. Question central left lung mass versus pneumonia. Electronically Signed: Francisco Andrade MD at 14:10 EDT , Discharge Plan Triage Chief Complaint: Cellulitis ED Provider: Maged Holguin Dx/Rx/DC Orders Prescriptions: No Action oxybutynin chloride 15 mg tablet extended release 24hr 15 mg PO DAILY nitroglycerin 0.4 MG tablet 0.4 mg sublingual Q5M PRN (Reason: Chest Pain) Patient Comments: CHEST aspirin 81 MG tablet,chewable 81 mg PO DAILY Patient Comments: HEART HEALTH magnesium oxide 400 MG tablet 400 mg PO DAILY Patient Comments: MAGNESIUM SUPPLEMENT furosemide 40 MG tablet 80 mg PO DAILY atorvastatin 80 MG tablet 80 mg PO QHS montelukast 10 MG tablet 10 mg PO DAILY fluticasone propionate 1 SPRAY spray,suspension 2 spray NASAL DAILY cholecalciferol (vitamin D3) 2,000 UNIT capsule 2,000 unit PO BID tamsulosin 0.4 mg Capsule 0.4 mg PO QHS mirtazapine 15 mg Tablet 15 mg PO QHS glimepiride 4 mg Tablet 4 mg PO BREAKFAST docusate sodium 100 MG capsule 100 mg PO DAILY Trulance 3 mg tablet 3 mg PO DAILY clopidogrel 75 mg Tablet 75 mg PO DAILY Qty: 30 0RF isosorbide mononitrate 30 mg Tablet Extended Release 24 Hr 30 mg PO DAILY Qty: 30 0RF spironolactone 25 mg Tablet 25 mg PO DAILY Qty: 30 0RF fluticasone furoate-vilanterol [Breo Ellipta] 200-25 mcg/dose blister with device 1 inh INHALATION DAILY losartan 25 mg tablet 25 mg PO QHS Rx Instructions: HOLD IF SYSTOLIC <100 metoprolol succinate 25 mg tablet extended release 24 hr 25 mg PO DAILY Rx Instructions: HOLD hr <55 HOLD SYSTOLIC <95 Januvia 100 mg tablet 100 mg PO DAILY Fish Oil 1,000 mg Capsule 1 cap PO DAILY calcium carbonate-vitamin D3 [Calcium 600 + D(3)] 600 mg-5 mcg (200 unit) tablet 1 tab PO BID pantoprazole 40 mg tablet,delayed release (DR/EC) 40 mg PO BID Primary Care Provider: Bertrand Warner Referrals: Bertrand Warner MD [Primary Care Provider] -
--- NOTE | 2023-06-09 13:29 | EKG12_ITS ---
Test Reason : Blood Pressure : / mmHG Vent. Rate : 061 BPM Atrial Rate : 416 BPM P-R Int : 000 ms QRS Dur : 162 ms QT Int : 470 ms P-R-T Axes : 000 -42 115 degrees QTc Int : 473 ms Ventricular-paced rhythm Abnormal ECG Confirmed by KENDRICK MEEK, YADIRA ([id number]), sports editor MAGGIE LONG ([id number]) on 06/11/2023 7:10:57 AM Referred By: EMILY Confirmed By:CARLO MARKS MD
--- NOTE | 2023-06-09 13:29 | VDLE_ITS ---
Reason For Study: BLE Swelling RIGHT LEFT GSV is normal. GSV is normal. CFV is compressible, spontaneous, phasic, CFV is compressible, spontaneous, phasic, competent and demonstrates normal competent, and demonstrates normal augmentation. augmentation. FV is compressible, spontaneous, phasic, FV is compressible, spontaneous, phasic, competent and demonstrates normal competent and demonstrates normal augmentation. augmentation. POP V is compressible, spontaneous, phasic, POP V is compressible, spontaneous, phasic, competent and demonstrates normal competent and demonstrates normal augmentation. augmentation. T/P Trunk is compressible. T/P Trunk is compressible. PTV is compressible. PTV is compressible. RT PerV is compressible. LT PerV is compressible. Calf vessels visualized in segments due to Calf vessels visualized in segments due to cellulitis and swelling. cellulitis and swelling. Procedure This is a venous duplex using B-mode, color flow and spectral Doppler. Exam performed portable in ED. The study was technically difficult. A preliminary report was called and/or faxed to ED JANEEN Alba. VL/Venous Duplex US - Jon Extrem Interpretation Summary Deep veins of the bilateral lower extremities are patent and compressible segme ntally. There is no evidence of bilateral lower extremity deep vein thrombosis. The bilateral great saphenous veins appear patent and compressible segmentally. Limited study below knee bilateral due to edema Ordering Physician: Maged Holguin Performed By: Freddie Miguel RVT
--- NOTE | 2023-06-09 13:34 | NURSING ---
NO OLD EKGS
--- NOTE | 2023-06-09 13:53 | RAD_ITS ---
EXAM: XR CHEST, 1 VIEW CLINICAL INDICATION: SOB TECHNIQUE: Frontal view of the chest. COMPARISON: XR Chest dated 12/03/2022 FINDINGS: LUNGS AND PLEURAL SPACES: Persistent central pulmonary densities which may represent pulmonary edema. Left parahilar mass/pneumonia not excluded. Pulmonary vascular congestion. HEART: Stable cardiomegaly. Surgical changes of coronary artery bypass graft (CABG). MEDIASTINUM: No mediastinal or hilar mass. BONES/JOINTS: No acute abnormality. TUBES, LINES AND DEVICES: Atrioventricular pacemaker wires remain in place. RAD/Chest 1 View (Portable) IMPRESSION: CHF with pulmonary edema. Question central left lung mass versus pneumonia. Electronically Signed: Francisco Andrade MD at 14:10 EDT ,
[2023-06-09 13:56] LABS: Hematocrit 39.1 % (40-54); Hemoglobin 11.9 g/dL (13.0-16.5); Mean Corp Hgb Conc 30.4 g/dL (32-36); Mean Corpuscular Hgb 27.5 pg (27.0-32.0); Mean Corpuscular Volume 90.3 fL (80-94); Mean Platelet Vol. 9.6 fl (6.2-12.0); Platelet Count 215 K/mm3 (150-450); RBC Distribution Width CV 17.9 % (11.6-14.6); RBC Distribution Width SD 59.3 fl (35.1-43.9); Red Blood Count 4.33 M/mm3 (4.6-6.2); White Blood Count 7.3 K/mm3 (4.4-11.0)
[2023-06-09 14:05] LABS: BNP,B-Type NATRIURETIC PEPTIDE 92.1 pg/mL (0-100)
[2023-06-09 14:13] LABS: Anion Gap 4 (5-15); BUN 23 mg/dL (7-18); BUN/Creat Ratio 22.5 RATIO (10-20); Calcium,Total 8.9 mg/dL (8.5-10.1); Chloride 110 mmol/L (98-107); Creatinine, Serum 1.02 mg/dL (0.70-1.30); EST Glomerular Filtration Rate 74 mL/min (>60); Est Glom Filt Rate - Afr Amer 90 mL/min (>60); Estimated Creatinine Clearance 62.34 ml/min; Glucose 191 mg/dL (74-106); Potassium 4.4 mmol/L (3.5-5.1); Sodium Level 141 mmol/L (136-145); Troponin-I HS 19 pg/mL (3.0-78.0)
[2023-06-09] MEDS: Furosemide 40 MG/4 ML Vial IV (14:37)
--- NOTE | 2023-06-09 14:53 | ED.RN ---
Purewick catheter applied. Patient tolerated well.
[2023-06-09] MEDS: Vancomycin HCl 2,000 MG in 0.9% Normal Saline (500mL Bag) 500 ML 250 MG IV (15:05)
--- NOTE | 2023-06-09 15:32 | HP.PCM.HOS_ITS ---
HPI - General General Date of Admission: 06/09/23 Date of Service: 06/09/23 Chief Complaint: Dyspnea, orthopnea, weight gain, worsening BL LE redness. HPI Narrative The patient is an 82 y/o M w/ PMHx: Chronic anemia, Asthma/COPD with allergic rhinitis, EDMOND on BIPAP, CAD s/p PCI x 1 and CABG x 2, GERD, HTN, HLD, HFpEF, Hypothyroidism, Diabetes mellitus type II, BPH, Anxiety and Depression, Hx complete HB s/p pacemaker who presents to the [facility] ED on 06/09/23 with history of dyspnea, worse with exertion with associated chest discomfort as well as increased weight gain, increasing bilateral lower extremity edema and redness in addition to orthopnea with outpatient evaluation with referral to the ED for further evaluation. Patient has been also having stasis blisters most recently to the right lower extremity. He states that his legs have appeared similar to this for many years and he does not think it is changed but the physician he did see outpatient he felt it was concerning for possible cellulitis prompting referral. Work-up in the ED included T97.1, heart rate 67, BP 176/79, respiratory rate 21, 93% on room air, CBC with WBC 7.3, hemoglobin 11.9, platelet 215 without differential performed, BMP with BUN/creatinine 23/1.02, glucose 191, troponin 19, BNP 92.1, troponin 19, chest x-ray with mild congestion with questionable central left lung mass versus pneumonia with recommended follow-up, EKG paced with no acute evidence of ischemia. In the ED patient ministered IV vancomycin and Lasix 40 mg IV x1. [facility] Medical History (Updated 06/09/23 @ 15:[address] Magdalena Grace MD) Asthma Atherosclerosis of coronary artery of [place] heart without angina pectoris Atrial fibrillation Benign essential HTN BiPAP (biphasic positive airway pressure) dependence Cancer Cardiology follow-up encounter Chest pain CHF (congestive heart failure) Cholecystitis Chronic venous insufficiency Complete heart block Congestive heart failure (CHF) Constipation COPD (chronic obstructive pulmonary disease) Diabetes Diverticulosis DM2 (diabetes mellitus, type 2) Dysphagia Edema of both legs Esophageal stricture Fall GERD (gastroesophageal reflux disease) HLD (hyperlipidemia) Hyperlipemia Hypertension Ileus following gastrointestinal surgery Junctional escape rhythm Mobitz type 1 second degree atrioventricular block Morbid obesity Non-smoker Obstructive sleep apnea Pacemaker Pancreatic abnormality Paroxysmal atrial fibrillation Prostate cancer Shortness of breath on exertion Swelling of lower extremity Symptomatic bradycardia Thyroid disease Ulcer of left lower extremity with fat layer exposed Ulcer of right lower extremity with fat layer exposed Uses wheelchair Venous stasis dermatitis of both lower extremities Wears glasses Home Medications aspirin 81 mg chewable tablet 81 mg PO DAILY HEALTH MAINTENANCE 06/09/13 [H istory Last Taken 01/20/22] nitroglycerin 0.4 mg sublingual tablet 0.4 mg sublingual Q5M PRN Chest Pain 06/09/13 [History Last Taken 10/17/16 09:00] magnesium oxide 400 mg (241.3 mg magnesium) tablet 400 mg PO DAILY MAGNESIUM 10/07/15 [History Last Taken 01/09/21] furosemide 40 mg tablet 80 mg PO DAILY CHF 10/17/16 [History Last Taken 01/09/21] atorvastatin 80 mg tablet 80 mg PO QHS HLD 08/05/18 [History Last Taken 01/08/21] cholecalciferol (vitamin D3) 50 mcg (2,000 unit) capsule 2,000 unit PO BID SUPPLEMENT 11/24/19 [History Last Taken 06/09/23] fluticasone propionate 50 mcg/actuation nasal spray,suspension 2 spray NASAL DAILY ALLERGIES 11/24/19 [History Last Taken 01/09/21] montelukast 10 mg tablet 10 mg PO DAILY ALLERGIES 11/24/19 [History Last Taken 01/08/21] glimepiride 4 mg tablet 4 mg PO BREAKFAST DM 01/09/21 [History Last Taken 01/09/21] mirtazapine 15 mg tablet 15 mg PO QHS mental health 01/09/21 [History Last Taken 01/08/21] tamsulosin 0.4 mg capsule 0.4 mg PO QHS prostate 01/09/21 [History Last Taken 06/08/23] docusate sodium 100 mg capsule 100 mg PO DAILY stool softner 07/15/21 [History Last Taken Unknown] plecanatide 3 mg tablet (Trulance) 3 mg PO DAILY chronic constipation 11/14/22 [History Last Taken 06/09/23] clopidogrel 75 mg tablet 75 mg PO DAILY #30 tabs 11/17/22 [Rx Last Taken Unknown] fluticasone furoate 200 mcg-vilanterol 25 mcg/dose inhalation powder (Breo Ellipta) 1 inh inhalation DAILY Check with primary doctor 11/17/22 [History Last Taken Unknown] isosorbide mononitrate 30 mg tablet,extended release 24 hr 30 mg PO DAILY #30 tabs 11/17/22 [Rx Last Taken Unknown] losartan 25 mg tablet 25 mg PO QHS Check with primary doctor 11/17/22 [History Last Taken Unknown] metoprolol succinate 25 mg tablet,extended release 24 hr 25 mg PO DAILY Check with primary doctor 11/17/22 [History Last Taken Unknown] sitagliptin phosphate 100 mg tablet (Januvia) 100 mg PO DAILY Check with primary doctor 11/17/22 [History Last Taken Unknown] spironolactone 25 mg tablet 25 mg PO DAILY #30 tabs 11/17/22 [Rx Last Taken 06/09/23] omega-3 fatty acids-vitamin E 1,000 mg capsule 1 cap PO DAILY 12/03/22 [History Last Taken Unknown] oxybutynin chloride 15 mg tablet,extended release 24 hr 15 mg PO DAILY 12/15/22 [History Last Taken Unknown] calcium carbonate 600 mg-vitamin D3 5 mcg (200 unit) tablet (Calcium 600 + D(3)) 1 tab PO BID 06/09/23 [History Last Taken 06/09/23] pantoprazole 40 mg tablet,delayed release 40 mg PO BID 06/09/23 [History Last Taken 06/09/23] Allergy/AdvReac Type Severity Reaction Status Date / Time lisinopril Allergy Unknown Verified 05/05/23 14:07 paroxetine [From Paxil] Allergy NEEDS Verified 05/05/23 14:07 FOLLOW-UP sertraline Allergy Unknown Verified 05/05/23 14:07 enoxaparin [From Lovenox] AdvReac PT UNSURE Verified 05/05/23 14:07 OF REACTION Family History Mother Lung cancer Father CAD (coronary artery disease) Hypertension Heart disease Myocardial infarction Brother Myocardial infarction Hypertension Heart disease CAD (coronary artery disease) Surgical History Coronary angioplasty status H/O coronary artery bypass surgery History of bilateral hip arthroplasty History of cholecystectomy Hx of CABG Presence of cardiac pacemaker S/P CABG x 2 Status post cholecystectomy Social History household members: none housing: assisted living facility number of children: 0 current occupational status: retired Smoking Status: Never smoker alcohol intake: never substance use type: does not use ROS ROS Narrative Admission Review of Systems: CONSTITUTIONAL: No weight loss, fever, chills, + weakness or fatigue. HEENT: Eyes: No visual loss, blurred vision, double vision or yellow sclerae. Ears, Nose, Throat: No hearing loss, sneezing, congestion, runny nose or sore throat. SKIN: No rash or itching, lesions, wounds except + notable bilateral lower extremity stasis blisters and significant venous stasis skin changes as well as erythema but appears more consistent with stasis disease. CARDIOVASCULAR: Orthopnea, edema,+ No chest pain, chest pressure or chest discomfort, palpitations, syncopal events. RESPIRATORY: + Shortness of breath. No cough or sputum, wheezing, hemoptysis. GASTROINTESTINAL: No anorexia, nausea, vomiting or diarrhea, abdominal pain, melena, BRBPR. GENITOURINARY: No dysuria, frequency, urgency or retention. NEUROLOGICAL: No headache, dizziness, syncope, paralysis, ataxia, numbness or tingling in the extremities, focal weakness, change in bowel or bladder control, seizure. MUSCULOSKELETAL: + muscle, back pain, joint pain or stiffness. HEMATOLOGIC: + anemia, easy bleeding or bruising. LYMPHATICS: No enlarged nodes. No history of splenectomy. PSYCHIATRIC: No history of depression or anxiety. ENDOCRINOLOGIC: No reports of sweating, cold or heat intolerance. No polyuria or polydipsia. ALLERGIES: No history of asthma, hives, eczema or rhinitis. Vital Signs Vital Signs Vital Signs: 06/09/23 12:34 06/09/23 13:12 06/09/23 15:02 Temperature 97.1 F L Temperature Source Temporal Pulse Rate 67 61 Respiratory Rate 21 H Blood Pressure 176/79 H 167/77 H Blood Pressure Mean 111 107 Pulse Ox 93 96 94 Oxygen Delivery Method Room Air Room Air Weight Weight: 364 lb 13.84 oz Body Mass Index (BMI) 49.4 Physical Exam Narrative Physical Examination: General: Awake, alert, oriented x 3 and cooperative, seated upright in ED bed in no apparent distress fatigued. Skin: Normal color, normal turgor, no icterus, no cyanosis except for significant bilateral lower extremity venous stasis skin changes, erythema but more consistent with stasis disease, stasis blisters present HEENT: AT/NC, EOMI, PERRLA, MMM, no carotid bruits, + JVD noted although difficult assessment given thickened neck. Lungs: Diminished, greater bases, no evidence of any respiratory distress, no severe noted rales, no marked rhonchi or wheezing. Heart: Regular/paced; no gallop, rub audible. Abdomen: Soft, morbidly obese, NTTP, distant normal BS, difficult to assess abdominal distention or HSM secondary to habitus Extremities: No cyanosis, no clubbing, significant bilateral lower extremity p edal to proximal knee pitting edema, see skin. Neurological: Patient awake, alert, oriented as noted, cognitive function intact; pupils equally reactive to light and accommodation, cranial nerves II-X II grossly normal, moving all 4 extremities, no focal deficits, strength moderately to severely globally decreased secondary to acute presentation. Psychiatric: Affect appears fatigued, no acute evidence of depressive or anxiety feelings. Results Lab / Micro Data 06/09/23 13:40 06/09/23 13:40 Labs: Laboratory Results - last 24 hr 06/09/23 13:40: WBC 7.3, RBC 4.33 L, Hgb 11.9 L, Hct 39.1 L, MCV 90.3, MCH 27.5, MCHC 30.4 L, RDW Std Deviation 59.3 H, RDW Coeff of Yue 17.9 H, Plt Count 215, MPV 9.6, Sodium 141, Potassium 4.4, Chloride 110 H, Carbon Dioxide 27.0, Anion Gap 4 L, BUN 23 H, Creatinine 1.02, Estim Creat Clear Calc 62.34, Est GFR (MDRD) Af Amer 90, Est GFR (MDRD) Non-Af 74, BUN/Creatinine Ratio 22.5 H, Glucose 191 H , Calcium 8.9, Troponin I High Sens 19, C-React Prot Ext Range 10.10 H, B- Natriuretic Peptide 92.1 Radiology Impression Chest X-Ray 06/09/23 13:53 IMPRESSION: CHF with pulmonary edema. Question central left lung mass versus pneumonia. Electronically Signed: Francisco Andrade MD at 14:10 EDT Reading Location ID and State: [facility] / [place] Tel , Service support , Assessment & Plan Assessment/Plan (1) CHF exacerbation: PLAN: Plan The patient is an 82 y/o M w/ PMHx: Chronic anemia, Asthma/COPD with allergic rhinitis, EDMNOD on BIPAP, CAD s/p PCI x 1 and CABG x 2, GERD, HTN, HLD, HFpEF, Hypothyroidism, Diabetes mellitus type II, BPH, Anxiety and Depression, Hx complete HB s/p pacemaker who presents to the [facility] ED on 06/09/23 with history of dyspnea, worse with exertion with associated chest discomfort as well as increased weight gain, increasing bilateral lower extremity edema and redness in addition to orthopnea with outpatient evaluation with referral to the ED for further evaluation. #1. Acute Mild Decompensated HFpEF: Patient administered IV lasix in the ED, will admit to PCU, maintain on cardiac telemetry, obtain cardiac enzyme series, obtain serial EKGs, continue IV lasix diuresis, monitor I/Os, maintain on intake restriction, continue medical therapy, obtain TSH and magnesium level. Most recent ECHO noted 11/16/2022 with normal LV size, LV systolic function normal, EF 60%, mild concentric LVH, PASP 28 mmHg thus will not repeat. Will place snug OZIEL wraps with elevation BL LE as suspect concern for BL LE cellulitis more likely venous stasis severe changes given overload. #2. Bilateral Lower Extremity concern for Possible BL LE Cellulitis, lower suspicion, Suspect more likely Severe venous stasis disease with #1: In the ED administered IV vancomycin x 1, CBC with no marked WBC elevation however differential was not performed, CRP very minimally elevated 10.10, will obtain ESR as well in addition to procalcitonin and if significantly elevated may consider continuing antibiotic therapy however at this time will place neck Oziel wraps with elevation and continue IV diuresis with reevaluation of legs. #3. Chronic normocytic anemia: Admission hemoglobin 11.9, MCV 90.3, has certainly vacillated but primarily appears to 12 range, will continue to follow and if drops further may need to be evaluated. #4. 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 #5. PAF: Patient not chronically anticoagulated per current list, will continue patient home asa, Plavix regimen, will continue home metoprolol regimen. #6. Chronic COPD/asthma with allergic rhinitis: Will hold home inhalers and in the interim transition to ATC budesonide therapy, PRN albuterol, HOB, IS parameters, continue patient home Singulair and fluticasone regimen. #7. Diabetes mellitus type II: Hold oral home regimen, ADA diet, accu checks w/ ISS. #8. Anxiety and depression: We will continue patient home mirtazapine regimen #9. Hypertension: Continue home regimen including metoprolol, isosorbide, losartan, spironolactone, IV Lasix as noted, PRN hydralazine. #10. Hyperlipidemia: Continue home statin regimen. AM FLP. #11. History complete heart block: Status post pacemaker placement. #12. Morbid Obesity: Weight loss and lifestyle changes encouraged. #13. GERD: We will continue patient on PPI. #14. BPH: We will continue patient on Flomax regimen. #15. EDMOND: BiPAP nightly. #16. DVT prophylaxis: Heparin. #17. CODE status: Patient HCPOA is Armaan his brother and living will is currently in place. Full Code status. Charges/Coding Visit Charges Inpatient E&M: 78836 Init Hosp L3
--- NOTE | 2023-06-09 15:59 | NURSING ---
121 WHITE CHF EXAC
[2023-06-09 16:21] LABS: Magnesium 2.1 mg/dL (1.6-2.6)
[2023-06-09 16:44] LABS: Erythrocyte Sedimentation Rate 40 mm/hr (0-20)
[2023-06-09 18:21] LABS: Bedside Glucose 103 mg/dL (74-106)
[2023-06-09] MEDS: 0.9% Saline Lock 10 ML Syringe IV (18:29)
[2023-06-09] MEDS: Furosemide 100 MG/10 ML Vial 60 MG IV (18:29)
[2023-06-09 18:47] LABS: Troponin-I HS 25 pg/mL (3.0-78.0)
[2023-06-09 19:35] LABS: Procalcitonin 0.07 ng/mL (0.00-0.09)
[2023-06-09] MEDS: Ipratropium/Albuterol Sulfate 3 ML AMPUL.NEB INHALATION (19:47)
[2023-06-09 21:07] LABS: Troponin-I HS 22 pg/mL (3.0-78.0)
[2023-06-09] MEDS: Pantoprazole Sodium 40 MG Tablet PO (22:08)
[2023-06-09] MEDS: Tamsulosin HCl 0.4 MG Capsule 0.400000000000000022 MG PO (22:08)
[2023-06-09] MEDS: Losartan Potassium 25 MG Tablet PO (22:08)
[2023-06-09] MEDS: Atorvastatin Calcium 80 MG Tablet PO (22:09)
[2023-06-09] MEDS: Mirtazapine 15 MG Tablet PO (22:09)
[2023-06-09 23:40] LABS: Bedside Glucose 180 mg/dL (74-106)
[2023-06-10] VITALS (8 sets, daily range): BP systolic 122–145; BP diastolic 53–62; PULSE 60–68; RESP 18–20; TEMP 36.6–37.3; O2SAT 88–99; BMI 48.0
--- NOTE | 2023-06-10 00:48 | CPS ---
Pt wearing Sleep lab machine with humidity and 2L bled in. Pt tolerating well.
[2023-06-10 06:08] LABS: Absolute Neutrophil Count 6.2 X10^3/uL (2.0-7.7); Basophil# 0.04 X10^3/uL; Basophil% 0.5 % (0-1); Eosinophil# 0.24 X10^3/uL; Eosinophils% 2.8 % (0-5); Hematocrit 38.2 % (40-54); Hemoglobin 11.8 g/dL (13.0-16.5); Lymphocyte % 10.6 % (19-41); Mean Corp Hgb Conc 30.9 g/dL (32-36); Mean Corpuscular Hgb 27.7 pg (27.0-32.0); Mean Corpuscular Volume 89.7 fL (80-94); Mean Platelet Vol. 9.7 fl (6.2-12.0); Monocyte% 12.9 % (0-10); NRBC Flagged by Analyzer 0 % (0-5); Neutrophil # 6.19 X10^3/uL (2.7-7.7); Neutrophil % 72.7 % (47-70); Platelet Count 213 K/mm3 (150-450); RBC Distribution Width SD 59.3 fl (35.1-43.9); Red Blood Count 4.26 M/mm3 (4.6-6.2); White Blood Count 8.5 K/mm3 (4.4-11.0)
[2023-06-10] MEDS: Insulin Lispro 100 UNIT/ML INSULN.PEN SC ×4 (06:41→21:59)
[2023-06-10 07:03] LABS: ALB/GLOB Ratio 0.6 RATIO (0.9-2.4); AST(SGOT) 12 U/L (15-37); Alanine Aminotransfer ALT/SGPT 20 U/L (16-61); Albumin, Serum 2.9 g/dL (3.2-5.0); Alkaline Phosphatase 93 U/L (45-117); Anion Gap 6 (5-15); BUN 22 mg/dL (7-18); BUN/Creat Ratio 21.4 RATIO (10-20); Calcium,Total 8.7 mg/dL (8.5-10.1); Chloride 106 mmol/L (98-107); Cholesterol 83 mg/dL (200); Creatinine, Serum 1.03 mg/dL (0.70-1.30); EST Glomerular Filtration Rate 74 mL/min (>60); Est Glom Filt Rate - Afr Amer 89 mL/min (>60); Estimated Creatinine Clearance 61.74 ml/min; Globulin 4.5 g/dL (2.2-4.2); Glucose 172 mg/dL (74-106); High Density Lipoprotein 29 mg/dL; Potassium 4.1 mmol/L (3.5-5.1); Protein, Total 7.4 g/dL (6.4-8.2); Sodium Level 140 mmol/L (136-145); Thyroid Stim Hormone (TSH) 2.55 uIU/mL (0.358-3.74); Triglycerides 75 mg/dL; Very Low Density Lipoprotein 15 mg/dL (5-40)
[2023-06-10 07:06] LABS: Bedside Glucose 177 mg/dL (74-106)
[2023-06-10] MEDS: Furosemide 100 MG/10 ML Vial 60 MG IV ×2 (08:57→17:02)
[2023-06-10] MEDS: Spironolactone 25 MG Tablet PO (08:57)
[2023-06-10] MEDS: Magnesium Chloride 64 MG Delay Rel.Tablet 128 MG PO (08:57)
[2023-06-10] MEDS: Aspirin 81 MG TAB.CHEW PO (08:57)
[2023-06-10] MEDS: Fluticasone 0.05% 1 SPRAY NASAL.SRY 2 SPRAY NASAL (08:58)
[2023-06-10] MEDS: Heparin Injection (Vial) 5,000 UNIT/ML VIAL 5000 UNIT SC ×2 (08:58→22:04)
[2023-06-10] MEDS: Pantoprazole Sodium 40 MG Tablet PO ×2 (08:59→22:01)
[2023-06-10] MEDS: Montelukast 10 MG Tablet PO (08:59)
[2023-06-10] MEDS: Clopidogrel Bisulfate 75 MG Tablet PO (08:59)
[2023-06-10] MEDS: Metoprolol(XL)Succ 25 MG Tablet PO (08:59)
[2023-06-10] MEDS: Tolterodine Tartrate 4 MG CAP.SA PO (08:59)
[2023-06-10] MEDS: Isosorbide Mononitrate 30 MG Tablet PO (08:59)
[2023-06-10 12:01] LABS: Bedside Glucose 220 mg/dL (74-106)
--- NOTE | 2023-06-10 12:20 | CHAPLAIN ---
Type of Pastoral Visit _x__ Initial Visit ___ Follow-up Visit ___ On-call Visit ___ General Patient Visit ___ Spiritual Assessment ___ Family Conference ___ Bereavement ___ Rapid Response ___ Code Blue ___ Other (describe below) Pastoral Care Referral From _x__ Patient ___ Family ___ Nurse ___ Physician ___ Negative Cleaner ___ Cause Analyst ___ Other (describe below) Sacrament/Intervention _x__ Active listening ___ Anointing ___ Islam ___ Bereavement ___ Communion _x__ Ya exploration ___ _x__ Life review _x__ Prayer ___ Reconciliation ___ Sacrament of Sick _x__ Supportive presence ___ Wedding ___ Other (describe below) Pastoral Comments patient has been seen before in a previous admission; pt states that his living situation is a little better now with a change in management ; pt admits that he gets feeling overwhelmed with the problems of life and has little support; much consideration of what might be helpful to him including a positive perspective, coping mechanisms, hobbies of interest to pursue, people to get to know, ya and prayer; pt acknowledges that these are good choices and that I need to take more time for God ; pt has issues of being isolated and would benefit from more social interaction; pt welcomes future visits as possible
[2023-06-10] MEDS: Ipratropium/Albuterol Sulfate 3 ML AMPUL.NEB INHALATION ×2 (12:40→19:24)
--- NOTE | 2023-06-10 16:51 | PN.HOSP_ITS ---
Reason for Visit Reason for Visit: Diagnoses Heart failure, unspecified (06/09/23) Subjective Subjective Patient seen at bedside this morning. Had just been moved from bed to bedside chair by nursing staff. Patient was breathing comfortably on room air at rest, no increased work of breathing was noted. Patient denied any chest pain or shortness of breath this morning. Patient states he has had good urine output since receiving IV diuretic yesterday. Still thinks that he has a large amount of fluid on him that he is, off with IV diuretics. Has not worked with PT OT yet this morning. He denies any fevers or chills. No other acute concerns morning. Objective Data Objective Data Vital Signs: Vital Signs Temp Pulse Resp BP Pulse Ox O2 Del Method O2 Flow Rate 97.9 F 60 20 H 122/56 H 99 Nasal Cannula 2 06/10/23 15:00 06/10/23 15:00 06/10/23 15:00 06/10/23 15:00 06/10/23 15:00 06/10/23 15:00 06/10/23 15:00 Oxygen Flow Rate (L/min) 2 Oxygen Delivery Method Nasal Cannula Weight: 160.7 kg Body Mass Index (BMI) 48.0 Intake & Output: Intake and Output for Last 24 Hours 06/08/23 06/09/23 06/10/23 23:59 23:59 23:59 Intake Total 540 / 540 500 / 500 Output Total 2750 / 2750 1100 / 1100 Balance -2210 / -2210 -600 / -600 Lab / Micro Data 06/10/23 05:40 06/10/23 05:40 Labs: Laboratory Results - last 24 hr 06/09/23 15:56: Procalcitonin 0.07 06/09/23 17:50: Troponin I High Sens 25 06/09/23 17:58: POC Glucose 103 06/09/23 20:20: Troponin I High Sens 22 06/09/23 22:14: POC Glucose 180 H 06/10/23 05:40: WBC 8.5, RBC 4.26 L, Hgb 11.8 L, Hct 38.2 L, MCV 89.7, MCH 27.7, MCHC 30.9 L, RDW Std Deviation 59.3 H, RDW Coeff of Yue 18.0 H, Plt Count 213, MPV 9.7, Immature Gran % (Auto) 0.500, Neut % (Auto) 72.7 H, Lymph % (Auto) 10.6 L, [place] % (Auto) 12.9 H, Eos % (Auto) 2.8, Baso % (Auto) 0.5, Absolute Neuts (auto) 6.2, Absolute Lymphs (auto) 0.90, Nucleated RBC % 0, Sodium 140, Potass ium 4.1, Chloride 106, Carbon Dioxide 28.0, Anion Gap 6, BUN 22 H, Creatinine 1.03, Estim Creat Clear Calc 61.74, Est GFR (MDRD) Af Amer 89, Est GFR (MDRD) Non-Af 74, BUN/Creatinine Ratio 21.4 H, Glucose 172 H, Calcium 8.7, Total Bilirubin 1.10 H, AST 12 L, ALT 20, Alkaline Phosphatase 93, Total Protein 7.4, Albumin 2.9 L, Globulin 4.5 H, Albumin/Globulin Ratio 0.6 L, Triglycerides 75, Cholesterol 83, LDL Cholesterol 39, VLDL Cholesterol 15, HDL Cholesterol 29 L, TSH 2.55 06/10/23 06:36: POC Glucose 177 H 06/10/23 11:36: POC Glucose 220 H Radiography Diagnostic Testing: Radiology Impression Venous Doppler Study 06/09/23 13:29 Interpretation Summary Deep veins of the bilateral lower extremities are patent and compressible segmentally. There is no evidence of bilateral lower extremity deep vein thrombosis. The bilateral great saphenous veins appear patent and compressible segmentally. Limited study below knee bilateral due to edema Ordering Physician: Maged Holguin Performed By: Freddie Miguel, RVT Physical Exam Const alert and oriented x3 Constitutional Narrative: Pleasant elderly male, morbidly obese, sitting comfortably in bed, conversing normally, no acute distress. Breathing comfortably on room air at rest, no increased work of breathing noted. General Appearance: cooperative and comfortable HEENT normocephalic, head/scalp atraumatic, hearing grossly normal bilaterally, nasal mucous membranes and turbinates normal and moist oral mucous membranes Eyes PERRL, EOMs intact bilaterally and conjunctivae normal Neck full ROM, no lymphadenopathy and supple Lymph Lymphatic: no lymphadenopathy noted Chest inspection of chest normal Resp normal respiratory effort, normal air movement, no use of accessory muscles and clear to auscultation bilaterally Cardio regular rate, regular rhythm, no murmurs and peripheral pulses 2+ throughout GI normal to inspection, nondistended, normoactive bowel sounds, soft to palpation, non-tender and non-distended Back/Spine normal ROM Extremity Extremity Narrative: Significant bilateral lower extremity pitting edema up to the proximal knee, per patient remains about the same as on admission. Skin no rashes or lesions noted Psych mental status grossly normal Assessment & Plan Assessment/Plan (1) CHF exacerbation: PLAN: Plan Patient is an 82-year-old male with history of HFpEF, CAD s/p CABG and PCI, history of complete heart block s/p pacemaker, asthma/COPD with allergic rhinitis, chronic anemia, morbid obesity, EDMOND on BiPAP, paroxysmal atrial fibrillation, anxiety/depression, type 2 diabetes, hypertension and hyperlipidem ia who presented to [facility] ED on 06/09/2023 with worsening dyspnea on exertion. 1. Acute mild decompensated HFpEF, bilateral lower extremity edema Unclear etiology, may be secondary to inadequate home diuresis. Chest x-ray on admit showed CHF with pulmonary edema. Had significant lower extremity pitting edema up to his proximal knees, unclear on what his baseline is. Venous duplex ultrasound showed no evidence of DVT in bilateral extremities. BNP only 92 on admit. Notably most recent echo from 11/16/2022 showed normal LV size and function, EF 60%, mild concentric LVH. Labs on admit otherwise fairly benign. Home regimen of Lasix 80 mg daily. Notably have low concern for lower extremity cellulitis at this time. ? Continue IV Lasix 60 mg twice daily for now. Monitor urine output. Monitor BMP daily. Daily weights. 2. Debility, morbid obesity ? Resides in assisted living. PT/OT/case management consulted. Patient currently does not feel comfortable going back to assisted living given his functional status at this time, will monitor over next few days. BMI 48.0. Lifestyle modifications encouraged. Chronic medical conditions: ? Paroxysmal atrial fibrillation: Not chronically anticoagulated per current list. Continue home aspirin, Plavix and metoprolol. ? CAD s/p CABG and PCI. Continue home aspirin, Plavix, statin, metoprolol, losartan. ? COPD/asthma with allergic rhinitis: Continue home Singulair and fluticasone, budesonide therapy scheduled and as needed albuterol while inpatient. ? Type 2 diabetes: Holding home regimen, sliding scale insulin while inpatient. ? Hypertension: Continue home metoprolol, isosorbide, losartan, spironolactone. ? BPH: Continue home Flomax. DVT prophylaxis: Heparin subcu CODE STATUS: Full code, verified Expected disposition: Back to assisted living versus SNF, TBD Total clinical time spent by myself addressing the patient's medical issues, reviewing all the data, and collaborating with patient's care team: 35 minutes. Charges/Coding Visit Charges Inpatient E&M: 60632 Subs Hosp L2
[2023-06-10] MEDS: 0.9% Saline Lock 10 ML Syringe IV (17:03)
[2023-06-10 17:24] LABS: Bedside Glucose 200 mg/dL (74-106)
[2023-06-10] MEDS: Losartan Potassium 25 MG Tablet PO (22:00)
[2023-06-10] MEDS: Tamsulosin HCl 0.4 MG Capsule 0.400000000000000022 MG PO (22:00)
[2023-06-10] MEDS: Atorvastatin Calcium 80 MG Tablet PO (22:01)
[2023-06-10] MEDS: Mirtazapine 15 MG Tablet PO (22:01)
[2023-06-11] VITALS (8 sets, daily range): BP systolic 120–143; BP diastolic 53–68; PULSE 60–68; RESP 16–22; TEMP 36.1–37.3; O2SAT 93–97; BMI 47.7
[2023-06-11 01:01] LABS: Bedside Glucose 158 mg/dL (74-106)
[2023-06-11 06:29] LABS: Anion Gap 5 (5-15); BUN 27 mg/dL (7-18); BUN/Creat Ratio 22.3 RATIO (10-20); Calcium,Total 8.6 mg/dL (8.5-10.1); Chloride 104 mmol/L (98-107); Creatinine, Serum 1.21 mg/dL (0.70-1.30); EST Glomerular Filtration Rate 61 mL/min (>60); Est Glom Filt Rate - Afr Amer 74 mL/min (>60); Estimated Creatinine Clearance 52.55 ml/min; Glucose 162 mg/dL (74-106); Potassium 3.9 mmol/L (3.5-5.1); Sodium Level 139 mmol/L (136-145)
[2023-06-11] MEDS: Insulin Lispro 100 UNIT/ML INSULN.PEN SC ×4 (06:42→21:59)
[2023-06-11 07:02] LABS: Bedside Glucose 170 mg/dL (74-106)
[2023-06-11] MEDS: Furosemide 20 MG Tablet 60 MG PO ×2 (09:26→17:50)
[2023-06-11] MEDS: Isosorbide Mononitrate 30 MG Tablet PO (09:27)
[2023-06-11] MEDS: Magnesium Chloride 64 MG Delay Rel.Tablet 128 MG PO (09:27)
[2023-06-11] MEDS: Spironolactone 25 MG Tablet PO (09:27)
[2023-06-11] MEDS: Aspirin 81 MG TAB.CHEW PO (09:28)
[2023-06-11] MEDS: Tolterodine Tartrate 4 MG CAP.SA PO (09:28)
[2023-06-11] MEDS: Clopidogrel Bisulfate 75 MG Tablet PO (09:28)
[2023-06-11] MEDS: Montelukast 10 MG Tablet PO (09:28)
[2023-06-11] MEDS: Fluticasone 0.05% 1 SPRAY NASAL.SRY 2 SPRAY NASAL (09:28)
[2023-06-11] MEDS: Pantoprazole Sodium 40 MG Tablet PO ×2 (09:28→21:49)
[2023-06-11] MEDS: Metoprolol(XL)Succ 25 MG Tablet PO (09:30)
[2023-06-11] MEDS: Heparin Injection (Vial) 5,000 UNIT/ML VIAL 5000 UNIT SC ×2 (09:31→21:52)
--- NOTE | 2023-06-11 10:15 | CASEMGMT ---
Discharge Planning Updates faxed to [facility]. Felicia Gutierres, Discharge Planning Asst.
--- NOTE | 2023-06-11 10:31 | CASEMGMT ---
SW met with patient. Introduced self and role at [facility]. Patient is from [facility] and he plans to return at discharge. Patient will need transportation back to [facility] when discharged. Patient has a bipap at night from [facility], but does not normally where O2. Patient would like [facility] if he needs O2 at discharge. Plan: Return to [facility] [place] at d/c. Stacy TSANG
[2023-06-11] MEDS: Flu Vacc QS2023-24(65YR UP)/PF 240 MCG/0.7 ML Syringe IM (10:49)
[2023-06-11] MEDS: Docusate Sodium 100 MG Capsule PO (10:49)
[2023-06-11 11:19] LABS: Bedside Glucose 272 mg/dL (74-106)
[2023-06-11] MEDS: Ipratropium/Albuterol Sulfate 3 ML AMPUL.NEB INHALATION ×2 (13:00→19:34)
--- NOTE | 2023-06-11 14:52 | PCM.PN.HOSP ---
Reason for Visit Reason for Visit: Diagnoses Heart failure, unspecified (06/09/23) Subjective Subjective Patient seen at bedside this morning. Sitting comfortably in bedside chair, conversing normally, no acute distress. Patient states that he has had decent urine output on IV antibiotics to this point. Continues to feel like his legs are very volume overloaded. He is satting well on room air and denies any shortness of breath at rest. He reports difficulty with ambulation but was able to work decently well with therapy yesterday. He denies any fevers or chills. Denies any acute pain or discomfort. No other acute concerns this morning. Objective Data Objective Data Vital Signs: Vital Signs Temp Pulse Resp BP Pulse Ox O2 Del Method O2 Flow Rate 97.0 F L 68 20 H 130/68 H 96 Nasal Cannula 1 06/11/23 09:30 06/11/23 13:00 06/11/23 13:00 06/11/23 09:30 06/11/23 09:30 06/11/23 10:00 06/11/23 10:00 Oxygen Flow Rate (L/min) 1 Oxygen Delivery Method Nasal Cannula Weight: 159.5 kg Body Mass Index (BMI) 47.7 Intake & Output: Intake and Output for Last 24 Hours 06/09/23 06/10/23 06/11/23 23:59 23:59 23:59 Intake Total 540 / 540 1500 / 1500 500 / 500 Output Total 2750 / 2750 2500 / 2500 600 / 600 Balance -2210 / -2210 -1000 / -1000 -100 / -100 Lab / Micro Data 06/10/23 05:40 06/11/23 05:10 Labs: Laboratory Results - last 24 hr 06/10/23 17:00: POC Glucose 200 H 06/10/23 21:59: POC Glucose 158 H 06/11/23 05:10: Sodium 139, Potassium 3.9, Chloride 104, Carbon Dioxide 30.0, Anion Gap 5, BUN 27 H, Creatinine 1.21, Estim Creat Clear Calc 52.55, Est GFR (MDRD) Af Amer 74, Est GFR (MDRD) Non-Af 61, BUN/Creatinine Ratio 22.3 H, Glucose 162 H, Calcium 8.6 06/11/23 06:41: POC Glucose 170 H 06/11/23 10:48: POC Glucose 272 H Physical Exam Const alert and oriented x3 Constitutional Narrative: Pleasant elderly male, morbidly obese, sitting comfortably in bedside chair, conversing normally, no acute distress. Satting well on room air at rest, no increased work of breathing noted. General Appearance: cooperative and comfortable HEENT normocephalic, head/scalp atraumatic, hearing grossly normal bilaterally, nasal mucous membranes and turbinates normal and moist oral mucous membranes Eyes PERRL, EOMs intact bilaterally and conjunctivae normal Neck full ROM, no lymphadenopathy and supple Lymph Lymphatic: no lymphadenopathy noted Chest inspection of chest normal Resp normal respiratory effort, normal air movement, no use of accessory muscles and clear to auscultation bilaterally Cardio regular rate, regular rhythm, no murmurs and peripheral pulses 2+ throughout GI normal to inspection, nondistended, normoactive bowel sounds, soft to palpation, non-tender and non-distended Back/Spine normal ROM Extremity Extremity Narrative: Significant bilateral lower extremity pitting edema up to the proximal knee, similar to previous. Skin no rashes or lesions noted Psych mental status grossly normal Assessment & Plan Assessment/Plan (1) CHF exacerbation: PLAN: Plan Patient is an 82-year-old male with history of HFpEF, CAD s/p CABG and PCI, history of complete heart block s/p pacemaker, asthma/COPD with allergic rhinitis, chronic anemia, morbid obesity, EDMOND on BiPAP, paroxysmal atrial fibrillation, anxiety/depression, type 2 diabetes, hypertension and hyperlipidemia who presented to [facility] ED on 06/09/2023 with worsening dyspnea on exertion. 1. Acute mild decompensated HFpEF, bilateral lower extremity edema Unclear etiology, may be secondary to inadequate home diuresis. Chest x-ray on admit showed CHF with pulmonary edema. Had significant lower extremity pitting edema up to his proximal knees, unclear on what his baseline is. Venous duplex ultrasound showed no evidence of DVT in bilateral extremities. BNP only 92 on admit. Notably most recent echo from 11/16/2022 showed normal LV size and function, EF 60%, mild concentric LVH. Labs on admit otherwise fairly benign. Home regimen of Lasix 80 mg daily. Notably have low concern for lower extremity cellulitis at this time. Labs showing evidence of contraction alkalosis on 06/11. ? De-escalated to p.o. Lasix 60 mg twice daily on 06/11. Monitor urine output and BMP. Patient notably reports that he was previously on Lasix 80 mg in the morning and 40 mg at night and was told he was being over diuresed. We will need to clarify home-going diuretic regimen prior to discharge. 2. Debility ? Resides in assisted living. PT/OT/case management consulted. Patient okay for returning to assisted living facility with therapy services at facility able to see patient as needed. Chronic medical conditions: ? Paroxysmal atrial fibrillation: Not chronically anticoagulated per current list. Continue home aspirin, Plavix and metoprolol. ? CAD s/p CABG and PCI. Continue home aspirin, Plavix, statin, metoprolol, losartan. ? COPD/asthma with allergic rhinitis: Continue home Singulair and fluticasone, budesonide therapy scheduled and as needed albuterol while inpatient. ? Type 2 diabetes: Holding home regimen, sliding scale insulin while inpatient. ? Hypertension: Continue home metoprolol, isosorbide, losartan, spironolactone. ? BPH: Continue home Flomax. ? Morbid obesity: BMI 48.0. Lifestyle modifications encouraged. DVT prophylaxis: Heparin subcu CODE STATUS: Full code, verified Expected disposition: Back to assisted living facility, 1 to 2 days Total clinical time spent by myself addressing the patient's medical issues, reviewing all the data, and collaborating with patient's care team: 35 minutes. Charges/Coding Visit Charges Inpatient E&M: 29783 Subs Hosp L2
[2023-06-11 16:50] LABS: Bedside Glucose 216 mg/dL (74-106)
[2023-06-11] MEDS: Losartan Potassium 25 MG Tablet PO (21:48)
[2023-06-11] MEDS: Atorvastatin Calcium 80 MG Tablet PO (21:49)
[2023-06-11] MEDS: Tamsulosin HCl 0.4 MG Capsule 0.400000000000000022 MG PO (21:49)
[2023-06-11] MEDS: Mirtazapine 15 MG Tablet PO (21:50)
[2023-06-11] MEDS: Acetaminophen 325 MG Tablet 650 MG PO (22:04)
[2023-06-11 23:48] LABS: Bedside Glucose 173 mg/dL (74-106)
[2023-06-12] VITALS (11 sets, daily range): BP systolic 128–151; BP diastolic 55–63; PULSE 60–72; RESP 15–24; TEMP 36.4–37.4; O2SAT 93–98; BMI 47.6
[2023-06-12 06:54] LABS: Anion Gap 6 (5-15); BUN 29 mg/dL (7-18); BUN/Creat Ratio 28.2 RATIO (10-20); Calcium,Total 8.6 mg/dL (8.5-10.1); Chloride 104 mmol/L (98-107); Creatinine, Serum 1.03 mg/dL (0.70-1.30); EST Glomerular Filtration Rate 74 mL/min (>60); Est Glom Filt Rate - Afr Amer 89 mL/min (>60); Estimated Creatinine Clearance 61.74 ml/min; Glucose 154 mg/dL (74-106); Potassium 3.8 mmol/L (3.5-5.1); Sodium Level 138 mmol/L (136-145)
[2023-06-12 07:20] LABS: Bedside Glucose 149 mg/dL (74-106)
[2023-06-12] MEDS: Ipratropium/Albuterol Sulfate 3 ML AMPUL.NEB INHALATION ×2 (07:42→13:39)
[2023-06-12] MEDS: Fluticasone 0.05% 1 SPRAY NASAL.SRY 2 SPRAY NASAL (08:46)
[2023-06-12] MEDS: Spironolactone 25 MG Tablet PO (08:46)
[2023-06-12] MEDS: Magnesium Chloride 64 MG Delay Rel.Tablet 128 MG PO (08:47)
[2023-06-12] MEDS: Aspirin 81 MG TAB.CHEW PO (08:47)
[2023-06-12] MEDS: Metoprolol(XL)Succ 25 MG Tablet PO (08:47)
[2023-06-12] MEDS: Docusate Sodium 100 MG Capsule PO (08:48)
[2023-06-12] MEDS: Furosemide 20 MG Tablet 60 MG PO (08:48)
[2023-06-12] MEDS: Montelukast 10 MG Tablet PO (08:49)
[2023-06-12] MEDS: Clopidogrel Bisulfate 75 MG Tablet PO (08:49)
[2023-06-12] MEDS: Tolterodine Tartrate 4 MG CAP.SA PO (08:49)
[2023-06-12] MEDS: Isosorbide Mononitrate 30 MG Tablet PO (08:49)
[2023-06-12] MEDS: Pantoprazole Sodium 40 MG Tablet PO ×2 (08:50→22:41)
[2023-06-12] MEDS: Heparin Injection (Vial) 5,000 UNIT/ML VIAL 5000 UNIT SC ×2 (08:50→22:38)
[2023-06-12] MEDS: Insulin Lispro 100 UNIT/ML INSULN.PEN SC ×3 (10:38→22:48)
[2023-06-12 10:53] LABS: Bedside Glucose 217 mg/dL (74-106)
--- NOTE | 2023-06-12 14:33 | PN.HOSP_ITS ---
Reason for Visit Reason for Visit: Diagnoses Heart failure, unspecified (06/09/23) Subjective Subjective Patient seen at bedside this morning. Sitting comfortably in bed, conversing normally, no acute distress. Patient states that he has continued to have fairly heavy urine output and this has been concerning to him. His legs continue to feel swollen but no different than previous days. He is breathing well on room air and denies any shortness of breath. Has done okay getting up and working with therapy. Denies any fevers or chills. No other acute concerns this morning. Objective Data Objective Data Vital Signs: Vital Signs Temp Pulse Resp BP Pulse Ox O2 Del Method O2 Flow Rate 97.6 F L 72 22 H 131/55 H 96 Room Air 2 06/12/23 08:44 06/12/23 13:39 06/12/23 13:39 06/12/23 08:47 06/12/23 11:36 06/12/23 08:55 06/12/23 04:35 Oxygen Flow Rate (L/min) 2 Oxygen Delivery Method Room Air Weight: 159.4 kg Body Mass Index (BMI) 47.6 Intake & Output: Intake and Output for Last 24 Hours 06/10/23 06/11/23 06/12/23 23:59 23:59 23:59 Intake Total 1500 / 1500 1000 / 1250 500 / 500 Output Total 2500 / 2500 1150 / 1450 1050 / 1050 Balance -1000 / -1000 -150 / -200 -550 / -550 Lab / Micro Data 06/10/23 05:40 06/12/23 05:45 Labs: Laboratory Results - last 24 hr 06/11/23 16:29: POC Glucose 216 H 06/11/23 21:57: POC Glucose 173 H 06/12/23 05:45: Sodium 138, Potassium 3.8, Chloride 104, Carbon Dioxide 28.0, Anion Gap 6, BUN 29 H, Creatinine 1.03, Estim Creat Clear Calc 61.74, Est GFR (MDRD) Af Amer 89, Est GFR (MDRD) Non-Af 74, BUN/Creatinine Ratio 28.2 H, Glucose 154 H, Calcium 8.6 06/12/23 07:02: POC Glucose 149 H 06/12/23 10:35: POC Glucose 217 H Physical Exam Const alert and oriented x3 Constitutional Narrative: Pleasant elderly male, morbidly obese, sitting comfortably in bedside chair, conversing normally, no acute distress. Satting well on room air at rest, no increased work of breathing noted. General Appearance: cooperative and comfortable HEENT normocephalic, head/scalp atraumatic, hearing grossly normal bilaterally, nasal mucous membranes and turbinates normal and moist oral mucous membranes Eyes PERRL, EOMs intact bilaterally and conjunctivae normal Neck full ROM, no lymphadenopathy and supple Lymph Lymphatic: no lymphadenopathy noted Chest inspection of chest normal Resp normal respiratory effort, normal air movement, no use of accessory muscles and clear to auscultation bilaterally Cardio regular rate, regular rhythm, no murmurs and peripheral pulses 2+ throughout GI normal to inspection, nondistended, normoactive bowel sounds, soft to palpation, non-tender and non-distended Back/Spine normal ROM Extremity Extremity Narrative: Significant bilateral lower extremity pitting edema up to the proximal knee, similar to previous. Skin no rashes or lesions noted Psych mental status grossly normal Assessment & Plan Assessment/Plan (1) CHF exacerbation: PLAN: Plan Patient is an 82-year-old male with history of HFpEF, CAD s/p CABG and PCI, hi story of complete heart block s/p pacemaker, asthma/COPD with allergic rhinitis, chronic anemia, morbid obesity, EDMOND on BiPAP, paroxysmal atrial fibrillation, anxiety/depression, type 2 diabetes, hypertension and hyperlipidemia who presented to [facility] ED on 06/09/2023 with worsening dyspnea on exertion. 1. Acute mild decompensated HFpEF, bilateral lower extremity edema Unclear etiology, may be secondary to inadequate home diuresis. Chest x-ray on admit showed CHF with pulmonary edema. Had significant lower extremity pitting edema up to his proximal knees, unclear on what his baseline is. Venous duplex ultrasound showed no evidence of DVT in bilateral extremities. BNP only 92 on admit. Notably most recent echo from 11/16/2022 showed normal LV size and function, EF 60%, mild concentric LVH. Labs on admit otherwise fairly benign. Home regimen of Lasix 80 mg daily. Notably have low concern for lower extremity cellulitis at this time. Labs showing evidence of contraction alkalosis on 06/11. ? De-escalated to p.o. Lasix 60 mg twice daily on 06/11. Monitor urine output and BMP. Patient notably reports that he was previously on Lasix 80 mg in the morning and 40 mg at night and was told he was being over diuresed. We will switch him to p.o. Lasix 80 mg daily in the morning tomorrow. If stable tomorrow, will plan for discharge. 2. Debility ? Resides in assisted living. PT/OT/case management consulted. Patient okay for returning to assisted living facility with therapy services at facility able to see patient as needed. Chronic medical conditions: ? Paroxysmal atrial fibrillation: Not chronically anticoagulated per current list. Continue home aspirin, Plavix and metoprolol. ? CAD s/p CABG and PCI. Continue home aspirin, Plavix, statin, metoprolol, losartan. ? COPD/asthma with allergic rhinitis: Continue home Singulair and fluticasone, budesonide therapy scheduled and as needed albuterol while inpatient. ? Type 2 diabetes: Holding home regimen, sliding scale insulin while inpatient. ? Hypertension: Continue home metoprolol, isosorbide, losartan, spironolactone. ? BPH: Continue home Flomax. ? Morbid obesity: BMI 48.0. Lifestyle modifications encouraged. DVT prophylaxis: Heparin subcu CODE STATUS: Full code, verified Expected disposition: Back to assisted living facility, tomorrow Total clinical time spent by myself addressing the patient's medical issues, reviewing all the data, and collaborating with patient's care team: 35 minutes. Charges/Coding Visit Charges Inpatient E&M: 74539 Subs Hosp L2
[2023-06-12 16:34] LABS: Bedside Glucose 219 mg/dL (74-106)
[2023-06-12] MEDS: Acetaminophen 325 MG Tablet 650 MG PO (20:31)
[2023-06-12] MEDS: Losartan Potassium 25 MG Tablet PO (22:36)
[2023-06-12] MEDS: Tamsulosin HCl 0.4 MG Capsule 0.400000000000000022 MG PO (22:38)
[2023-06-12] MEDS: Atorvastatin Calcium 80 MG Tablet PO (22:39)
[2023-06-12] MEDS: Mirtazapine 15 MG Tablet PO (22:41)
[2023-06-12 23:17] LABS: Bedside Glucose 216 mg/dL (74-106)
[2023-06-13] VITALS (7 sets, daily range): BP systolic 115–129; BP diastolic 55–76; PULSE 60–98; RESP 15–22; TEMP 36.4–36.9; O2SAT 90–97; BMI 47.9
[2023-06-13] MEDS: Insulin Lispro 100 UNIT/ML INSULN.PEN SC ×2 (06:33→11:12)
[2023-06-13 06:55] LABS: Bedside Glucose 161 mg/dL (74-106)
[2023-06-13] MEDS: Ipratropium/Albuterol Sulfate 3 ML AMPUL.NEB INHALATION ×2 (07:28→12:52)
[2023-06-13 07:59] LABS: Anion Gap 7 (5-15); BUN 35 mg/dL (7-18); BUN/Creat Ratio 36.7 RATIO (10-20); Calcium,Total 8.4 mg/dL (8.5-10.1); Chloride 102 mmol/L (98-107); Creatinine, Serum 0.95 mg/dL (0.70-1.30); EST Glomerular Filtration Rate 80 mL/min (>60); Est Glom Filt Rate - Afr Amer 97 mL/min (>60); Estimated Creatinine Clearance 66.94 ml/min; Glucose 176 mg/dL (74-106); Potassium 3.7 mmol/L (3.5-5.1); Sodium Level 137 mmol/L (136-145)
[2023-06-13] MEDS: Metoprolol(XL)Succ 25 MG Tablet PO (08:46)
[2023-06-13] MEDS: Tolterodine Tartrate 4 MG CAP.SA PO (08:47)
[2023-06-13] MEDS: Docusate Sodium 100 MG Capsule PO (08:47)
[2023-06-13] MEDS: Clopidogrel Bisulfate 75 MG Tablet PO (08:48)
[2023-06-13] MEDS: Isosorbide Mononitrate 30 MG Tablet PO (08:48)
[2023-06-13] MEDS: Furosemide 80 MG Tablet PO (08:49)
[2023-06-13] MEDS: Montelukast 10 MG Tablet PO (08:49)
[2023-06-13] MEDS: Magnesium Chloride 64 MG Delay Rel.Tablet 128 MG PO (08:49)
[2023-06-13] MEDS: Pantoprazole Sodium 40 MG Tablet PO (08:49)
[2023-06-13] MEDS: Aspirin 81 MG TAB.CHEW PO (08:50)
[2023-06-13] MEDS: Heparin Injection (Vial) 5,000 UNIT/ML VIAL 5000 UNIT SC (08:50)
[2023-06-13] MEDS: Spironolactone 25 MG Tablet PO (08:50)
[2023-06-13] MEDS: Fluticasone 0.05% 1 SPRAY NASAL.SRY 2 SPRAY NASAL (08:51)
[2023-06-13 11:32] LABS: Bedside Glucose 276 mg/dL (74-106)
--- NOTE | 2023-06-13 12:29 | DCINST_ITS ---
Discharge Instructions Diet Discharge Diet: 4000 mg Sodium Diet Activity Discharge Activity: Return to Normal Activity Weight Bearing Status: Full weight bearing Follow Up Care Please Follow Up With: Bertrand Warner MD When: As needed Test Results: Test results from this visit will be discussed in further detail at your follow- up appointment, if applicable. Pending Tests Upon Discharge: None Discharge Plan Admission Admit Date/Time: 06/09/23 15:41 Primary Reason for Your Visit: Shortness of breath, weight gain Attending Provider: Drew Jenkins Primary Care Provider: Bertrand Warner Consulting Providers: Magdalena Grace Instructions Additional Instructions / Restrictions: We have discharged you on 80 mg of Lasix every morning. Please take this and kj brar previous home medications as normal. Home health care will be confirmed for you tomorrow, and will be able to see you in your assisted living facility as needed. Discharge Orders/Prescriptions Prescriptions: Continued oxybutynin chloride 15 mg tablet extended release 24hr 15 mg PO DAILY nitroglycerin 0.4 MG tablet 0.4 mg sublingual Q5M PRN (Reason: Chest Pain) Patient Comments: CHEST aspirin 81 MG tablet,chewable 81 mg PO DAILY Patient Comments: HEART HEALTH magnesium oxide 400 MG tablet 400 mg PO DAILY Patient Comments: MAGNESIUM SUPPLEMENT furosemide 40 MG tablet 80 mg PO DAILY atorvastatin 80 MG tablet 80 mg PO QHS montelukast 10 MG tablet 10 mg PO DAILY fluticasone propionate 1 SPRAY spray,suspension 2 spray NASAL DAILY cholecalciferol (vitamin D3) 2,000 UNIT capsule 2,000 unit PO BID tamsulosin 0.4 mg Capsule 0.4 mg PO QHS mirtazapine 15 mg Tablet 15 mg PO QHS glimepiride 4 mg Tablet 4 mg PO BREAKFAST docusate sodium 100 MG capsule 100 mg PO DAILY Trulance 3 mg tablet 3 mg PO DAILY clopidogrel 75 mg Tablet 75 mg PO DAILY Qty: 30 0RF isosorbide mononitrate 30 mg Tablet Extended Release 24 Hr 30 mg PO DAILY Qty: 30 0RF spironolactone 25 mg Tablet 25 mg PO DAILY Qty: 30 0RF fluticasone furoate-vilanterol [Breo Ellipta] 200-25 mcg/dose blister with device 1 inh INHALATION DAILY losartan 25 mg tablet 25 mg PO QHS Rx Instructions: HOLD IF SYSTOLIC <100 metoprolol succinate 25 mg tablet extended release 24 hr 25 mg PO DAILY Rx Instructions: HOLD hr <55 HOLD SYSTOLIC <95 Januvia 100 mg tablet 100 mg PO DAILY omega-3 fatty acids-vitamin E 1,000 mg Capsule 1 cap PO DAILY calcium carbonate-vitamin D3 [Calcium 600 + D(3)] 600 mg-5 mcg (200 unit) tablet 1 tab PO BID pantoprazole 40 mg tablet,delayed release (DR/EC) 40 mg PO BID Referrals / Follow Up: Bertrand Warner MD [Primary Care Provider] - Disposition Disposition (needs filled in before D/C Order can be placed): Assisted Living
--- NOTE | 2023-06-13 12:34 | DS.PCM_ITS ---
Providers Date of Admission: 06/09/23 Date of Discharge: 06/13/23 Primary Care Physician: Dr. Bertrand Warner MD Reason For Visit: CHF EXACERBATION, ? BI LE CELLULITIS Diagnosis Discharge Diagnosis (1) CHF exacerbation: Status: Chronic Code(s): I50.9 - Heart failure, unspecified Medications at Discharge Home Medications aspirin 81 mg chewable tablet 81 mg PO DAILY HEALTH MAINTENANCE 06/09/13 nitroglycerin 0.4 mg sublingual tablet 0.4 mg sublingual Q5M PRN Chest Pain 06/09/13 magnesium oxide 400 mg (241.3 mg magnesium) tablet 400 mg PO DAILY MAGNESIUM 10/07/15 furosemide 40 mg tablet 80 mg PO DAILY CHF 10/17/16 atorvastatin 80 mg tablet 80 mg PO QHS HLD 08/05/18 cholecalciferol (vitamin D3) 50 mcg (2,000 unit) capsule 2,000 unit PO BID SUPPLEMENT 11/24/19 fluticasone propionate 50 mcg/actuation nasal spray,suspension 2 spray NASAL DAILY ALLERGIES 11/24/19 montelukast 10 mg tablet 10 mg PO DAILY ALLERGIES 11/24/19 glimepiride 4 mg tablet 4 mg PO BREAKFAST DM 01/09/21 mirtazapine 15 mg tablet 15 mg PO QHS mental health 01/09/21 tamsulosin 0.4 mg capsule 0.4 mg PO QHS prostate 01/09/21 docusate sodium 100 mg capsule 100 mg PO DAILY stool softner 07/15/21 plecanatide 3 mg tablet (Trulance) 3 mg PO DAILY chronic constipation 11/14/22 clopidogrel 75 mg tablet 75 mg PO DAILY #30 tabs 11/17/22 fluticasone furoate 200 mcg-vilanterol 25 mcg/dose inhalation powder (Breo Ellipta) 1 inh inhalation DAILY Check with primary doctor 11/17/22 isosorbide mononitrate 30 mg tablet,extended release 24 hr 30 mg PO DAILY #30 tabs 11/17/22 losartan 25 mg tablet 25 mg PO QHS Check with primary doctor 11/17/22 metoprolol succinate 25 mg tablet,extended release 24 hr 25 mg PO DAILY Check with primary doctor 11/17/22 sitagliptin phosphate 100 mg tablet (Januvia) 100 mg PO DAILY Check with primary doctor 11/17/22 spironolactone 25 mg tablet 25 mg PO DAILY #30 tabs 11/17/22 omega-3 fatty acids-vitamin E 1,000 mg capsule 1 cap PO DAILY 12/03/22 oxybutynin chloride 15 mg tablet,extended release 24 hr 15 mg PO DAILY 12/15/22 calcium carbonate 600 mg-vitamin D3 5 mcg (200 unit) tablet (Calcium 600 + D(3)) 1 tab PO BID 06/09/23 pantoprazole 40 mg tablet,delayed release 40 mg PO BID 06/09/23 Hospital Course Operations None Procedures - (Chest x-ray, venous Doppler study) Summary of Care Provided Minutes Spent on Discharge: 35 Hospital Course: Patient is an 82-year-old male with history of HFpEF, CAD s/p CABG and PCI, history of complete heart block s/p pacemaker, asthma/COPD with allergic rhini tis, chronic anemia, morbid obesity, EDMOND on BiPAP, paroxysmal atrial fibrillation, anxiety/depression, type 2 diabetes, hypertension and hyperlipidemia who presented to [facility] ED on 06/09/2023 with worsening dyspnea on exertion. Multiple medical conditions addressed during patient's hospitalization as noted below. Acute mild decompensated HFpEF with bilateral lower extremity edema, improving: Unclear etiology, may have been secondary to inadequate home diuresis. Chest x-ray on admit showed CHF with pulmonary edema. Had significant lower extremity pitting edema up to his proximal knees, unclear on what his baseline is. Venous duplex ultrasound showed no evidence of DVT in bilateral extremities. BNP only 92 on admit. Notably most recent echo from 11/16/2022 showed normal LV size and function, EF 60%, mild concentric LVH. Labs on admit otherwise fairly benign. Home regimen of Lasix 80 mg daily. Notably had low concern for lower extremity cellulitis. Labs showing evidence of contraction alkalosis on 06/11. Patient was de-escalated to p.o. Lasix 60 mg twice daily on 06/11 but per patient, continued to have fairly heavy urine output. BMP remained fairly stable. Patient stated he was previously discharged on Lasix 80 mg in the morning and 40 mg at night and felt like he was being over diuresed. Started on Lasix 80 mg in the morning on 06/13 and discharged patient on this regimen. Recommend close outpatient cardiology follow-up. Patient notably did have mild hypoxia during admission, was able to do home O2 walk test prior to discharge and oxygen saturations remained greater than 90%, did not require oxygen on discharge. Debility: Resides in assisted living facility. Suspect patient has fairly significant debility at baseline given his morbid obesity and multiple comorbidities. PT/OT/case management followed. Patient was okay to return to assisted living facility with therapy services at the facility able to see the patient as needed on discharge. Discharge diagnoses: ? Acute mild decompensated HFpEF with bilateral lower extremity edema, improving ? Debility ? Paroxysmal atrial fibrillation ? CAD s/p CABG and PCI ? COPD/asthma with allergic rhinitis ? Type 2 diabetes ? Hypertension ? BPH ? Morbid obesity Total clinical time spent by myself addressing the patient's discharge needs: 35 minutes. Physical Exam Const alert and oriented x3 Constitutional Narrative: Pleasant elderly male, morbidly obese, sitting comfortably in bedside chair, conversing normally, no acute distress. Satting well on room air at rest, no increased work of breathing noted. General Appearance: cooperative and comfortable HEENT normocephalic, head/scalp atraumatic, hearing grossly normal bilaterally, nasal mucous membranes and turbinates normal and moist oral mucous membranes Eyes PERRL, EOMs intact bilaterally and conjunctivae normal Neck full ROM, no lymphadenopathy and supple Lymph Lymphatic: no lymphadenopathy noted Chest inspection of chest normal Resp normal respiratory effort, normal air movement, no use of accessory muscles and clear to auscultation bilaterally Cardio regular rate, regular rhythm, no murmurs and peripheral pulses 2+ throughout GI normal to inspection, nondistended, normoactive bowel sounds, soft to palpation, non-tender and non-distended Back/Spine normal ROM Extremity Extremity Narrative: Significant bilateral lower extremity pitting edema up to the proximal knee, similar to previous. Skin no rashes or lesions noted Psych mental status grossly normal Weight / BMI Weight Weight: 160.2 kg Body Mass Index (BMI) 47.9 ABG / Lab / Microbiology Data 06/10/23 05:40 06/13/23 07:27 Laboratory: Laboratory Results - last 24 hr 06/12/23 16:11: POC Glucose 219 H 06/12/23 22:47: POC Glucose 216 H 06/13/23 06:31: POC Glucose 161 H 06/13/23 07:27: Sodium 137, Potassium 3.7, Chloride 102, Carbon Dioxide 28.0, Anion Gap 7, BUN 35 H, Creatinine 0.95, Estim Creat Clear Calc 66.94, Est GFR (MDRD) Af Amer 97, Est GFR (MDRD) Non-Af 80, BUN/Creatinine Ratio 36.7 H, Glucose 176 H, Calcium 8.4 L 06/13/23 11:09: POC Glucose 276 H D/C Instructions Discharge Diet: 4000 mg Sodium Diet Weight Bearing Status: Full weight bearing Pending Tests Upon Discharge: None Please Follow Up With: Bertrand Warner MD When: As needed Meaningful Use Info Meaningful Use Diagnoses (Choose all that apply): None applicable Discharge Plan Admission Admit Date/Time: 06/09/23 15:41 Primary Reason for Your Visit: Shortness of breath, weight gain Attending Provider: Drew Jenkins Primary Care Provider: Bertrand Warner Consulting Providers: Magdalena Grace Instructions Additional Instructions / Restrictions: We have discharged you on 80 mg of Lasix every morning. Please take this and all previous home medications as normal. Home health care will be confirmed for you tomorrow, and will be able to see you in your assisted living facility as needed. Discharge Orders/Prescriptions Prescriptions: Continued oxybutynin chloride 15 mg tablet extended release 24hr 15 mg PO DAILY nitroglycerin 0.4 MG tablet 0.4 mg sublingual Q5M PRN (Reason: Chest Pain) Patient Comments: CHEST aspirin 81 MG tablet,chewable 81 mg PO DAILY Patient Comments: HEART HEALTH magnesium oxide 400 MG tablet 400 mg PO DAILY Patient Comments: MAGNESIUM SUPPLEMENT furosemide 40 MG tablet 80 mg PO DAILY atorvastatin 80 MG tablet 80 mg PO QHS montelukast 10 MG tablet 10 mg PO DAILY fluticasone propionate 1 SPRAY spray,suspension 2 spray NASAL DAILY cholecalciferol (vitamin D3) 2,000 UNIT capsule 2,000 unit PO BID tamsulosin 0.4 mg Capsule 0.4 mg PO QHS mirtazapine 15 mg Tablet 15 mg PO QHS glimepiride 4 mg Tablet 4 mg PO BREAKFAST docusate sodium 100 MG capsule 100 mg PO DAILY Trulance 3 mg tablet 3 mg PO DAILY clopidogrel 75 mg Tablet 75 mg PO DAILY Qty: 30 0RF isosorbide mononitrate 30 mg Tablet Extended Release 24 Hr 30 mg PO DAILY Qty: 30 0RF spironolactone 25 mg Tablet 25 mg PO DAILY Qty: 30 0RF fluticasone furoate-vilanterol [Breo Ellipta] 200-25 mcg/dose blister with device 1 inh INHALATION DAILY losartan 25 mg tablet 25 mg PO QHS Rx Instructions: HOLD IF SYSTOLIC <100 metoprolol succinate 25 mg tablet extended release 24 hr 25 mg PO DAILY Rx Instructions: HOLD hr <55 HOLD SYSTOLIC <95 Januvia 100 mg tablet 100 mg PO DAILY omega-3 fatty acids-vitamin E 1,000 mg Capsule 1 cap PO DAILY calcium carbonate-vitamin D3 [Calcium 600 + D(3)] 600 mg-5 mcg (200 unit) tablet 1 tab PO BID pantoprazole 40 mg tablet,delayed release (DR/EC) 40 mg PO BID Referrals / Follow Up: Bertrand Warner MD [Primary Care Provider] - Disposition Disposition (needs filled in before D/C Order can be placed): Assisted Living Charges/Coding Visit Charges Inpatient E&M: 57244 Disch Hosp >30min
--- NOTE | 2023-06-13 12:51 | NURSING ---
Left a vm on pt's brother Freddie's phone to call U so we can inform him that pt Mayco will be d/c to [facility] today.
--- NOTE | 2023-06-14 15:45 | CASEMGMT ---
Discharge Planning HH order faxed to [facility] at their request. Unable to update patient with phone number provided. Felicia Gutierres, Discharge Planning Asst.
== END 2023-06-13 13:21 | disposition home or self-care (01) | DRG 291 ==
LOC: ED 12:58 → PCU 16:09
PROVIDERS: Admitting Provider Family Medicine; Emergency Provider Emergency Medicine; PCP Family Medicine; Visit Provider Hospitalist
DX: I11.0 Hypertensive heart disease with heart failure (principal); I50.31 Acute diastolic (congestive) heart failure; Z68.42 Body mass index [BMI] 45.0-49.9, adult; E03.9 Hypothyroidism, unspecified; Z95.1 Presence of aortocoronary bypass graft; E11.9 Type 2 diabetes mellitus without complications; J44.9 Chronic obstructive pulmonary disease, unspecified; E66.01 Morbid (severe) obesity due to excess calories; I48.0 Paroxysmal atrial fibrillation; F32.A Depression, unspecified; E78.5 Hyperlipidemia, unspecified; G47.33 Obstructive sleep apnea (adult) (pediatric); J30.9 Allergic rhinitis, unspecified; I87.8 Other specified disorders of veins; K21.9 Gastro-esophageal reflux disease without esophagitis; I25.10 Atherosclerotic heart disease of native coronary artery without angina pectoris; F41.9 Anxiety disorder, unspecified; Z79.82 Long term (current) use of aspirin; Z79.02 Long term (current) use of antithrombotics/antiplatelets; Z95.0 Presence of cardiac pacemaker; Z79.84 Long term (current) use of oral hypoglycemic drugs; R53.81 Other malaise; R09.02 Hypoxemia; N40.0 Benign prostatic hyperplasia without lower urinary tract symptoms; Z95.5 Presence of coronary angioplasty implant and graft; R60.0 Localized edema; Z23 Encounter for immunization
CPT/HCPCS: 36415; 71045; 80048; 80053; 80061; 82962; 83735; 83880; 84145; 84443; 84484; 85025; 85027; 85652; 86140; 93005; 93970; 94002; 94003; 94640; 94762; 97162; 97166; 97530; 97535; 97802; 99285; G0008; J7040; 90662; A4216; J1940

== ENCOUNTER 2023-06-20 09:20 | Emergency (ER) | payer MEDICARE, MEDICAID, SELFPAY ==
[2023-06-20 09:21] VITALS: BP 130/60; PULSE 65; RESP 16; TEMP 36.6; O2SAT 94; BMI 49.6
--- NOTE | 2023-06-20 09:50 | ED.VIS.LOWEX ---
HPI History of Present Illness HPI Narrative: Patient presents with a wound to his right lower leg that has been getting worse over the past few weeks. Patient states his home health nurse today sought and referred him to the emergency department because it was getting bigger. Patient states he has sharp pain but only with palpation to the area. Patient denies any paresthesias or weakness. Patient denies any fevers or chills. Patient denies any calf pain or tenderness. Patient denies any nausea or vomiting. Patient denies any new trauma or injury. 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 Atrial fibrillation Benign essential HTN BiPAP (biphasic positive airway pressure) dependence Cancer Cardiology follow-up encounter Chest pain CHF (congestive heart failure) Cholecystitis Chronic venous insufficiency Complete heart block Congestive heart failure (CHF) Constipation COPD (chronic obstructive pulmonary disease) Diabetes Diverticulosis DM2 (diabetes mellitus, type 2) Dysphagia Edema of both legs Esophageal stricture Fall GERD (gastroesophageal reflux disease) HLD (hyperlipidemia) Hyperlipemia Hypertension Ileus following gastrointestinal surgery Junctional escape rhythm Mobitz type 1 second degree atrioventricular block Morbid obesity Non-smoker Obstructive sleep apnea Pacemaker Pancreatic abnormality Paroxysmal atrial fibrillation Prostate cancer Shortness of breath on exertion Swelling of lower extremity Symptomatic bradycardia Thyroid disease Ulcer of left lower extremity with fat layer exposed Ulcer of right lower extremity with fat layer exposed Uses wheelchair Venous stasis dermatitis of both lower extremities Wears glasses Home Medications aspirin 81 mg chewable tablet 81 mg PO DAILY HEALTH MAINTENANCE 06/09/13 [History Last Taken 06/20/23] nitroglycerin 0.4 mg sublingual tablet 0.4 mg sublingual Q5M PRN Chest Pain 06/09/13 [History Last Taken 10/17/16 09:00] magnesium oxide 400 mg (241.3 mg magnesium) tablet 400 mg PO DAILY MAGNESIUM 10/07/15 [History Last Taken 01/09/21] furosemide 40 mg tablet 80 mg PO DAILY CHF 10/17/16 [History Last Taken 01/09/21] atorvastatin 80 mg tablet 80 mg PO QHS HLD 08/05/18 [History Last Taken 06/19/23] cholecalciferol (vitamin D3) 50 mcg (2,000 unit) capsule 2,000 unit PO BID SUPPLEMENT 11/24/19 [History Last Taken 06/20/23] fluticasone propionate 50 mcg/actuation nasal spray,suspension 2 spray NASAL DAILY ALLERGIES 11/24/19 [History Last Taken 01/09/21] montelukast 10 mg tablet 10 mg PO QHS ALLERGIES 11/24/19 [History Last Taken 06/19/23] glimepiride 4 mg tablet 4 mg PO BREAKFAST DM 01/09/21 [History Last Taken 06/20/23] mirtazapine 15 mg tablet 15 mg PO QHS mental health 01/09/21 [History Last Taken 06/19/23] tamsulosin 0.4 mg capsule 0.4 mg PO QHS prostate 01/09/21 [History Last Taken 06/19/23] docusate sodium 100 mg capsule 100 mg PO DAILY stool softner 07/15/21 [History Last Taken 06/20/23] plecanatide 3 mg tablet (Trulance) 3 mg PO DAILY chronic constipation 11/14/22 [History Last Taken 06/20/23] clopidogrel 75 mg tablet 75 mg PO DAILY #30 tabs 11/17/22 [Rx Last Taken 06/20/23] fluticasone furoate 200 mcg-vilanterol 25 mcg/dose inhalation powder (Breo Ellipta) 1 inh inhalation DAILY Check with primary doctor 11/17/22 [History Last Taken 06/19/23] isosorbide mononitrate 30 mg tablet,extended release 24 hr 30 mg PO DAILY #30 tabs 11/17/22 [Rx Last Taken 06/20/23] losartan 25 mg tablet 25 mg PO QHS Check with primary doctor 11/17/22 [History Last Taken 06/19/23] metoprolol succinate 25 mg tablet,extended release 24 hr 25 mg PO DAILY Check with primary doctor 11/17/22 [History Last Taken 06/20/23] sitagliptin phosphate 100 mg tablet (Januvia) 100 mg PO DAILY Check with primary doctor 11/17/22 [History Last Taken 06/20/23] spironolactone 25 mg tablet 25 mg PO DAILY #30 tabs 11/17/22 [Rx Last Taken 06/20/23] omega-3 fatty acids-vitamin E 1,000 mg capsule 1 cap PO DAILY 12/03/22 [History Last Taken 06/20/23] oxybutynin chloride 15 mg tablet,extended release 24 hr 15 mg PO DAILY 12/15/22 [History Last Taken 06/20/23] calcium carbonate 600 mg-vitamin D3 5 mcg (200 unit) tablet (Calcium 600 + D(3)) 1 tab PO BID 06/09/23 [History Last Taken 06/20/23] pantoprazole 40 mg tablet,delayed release 40 mg PO BID 06/09/23 [History Last Taken 06/20/23] amoxicillin 875 mg-potassium clavulanate 125 mg tablet 875 mg (0.875 x 875-125 mg) PO Q12H #20 TABLETS 06/20/23 [Rx Last Taken Unknown] furosemide 80 mg tablet 80 mg PO DAILY 06/20/23 [History Last Taken 06/20/23] metformin 1,000 mg tablet 1,000 mg PO BID 06/20/23 [History Last Taken 06/20/23] Allergy/AdvReac Type Severity Reaction Status Date / Time lisinopril Allergy Unknown Verified 06/20/23 09:26 paroxetine [From Paxil] Allergy NEEDS Verified 06/20/23 09:26 FOLLOW-UP sertraline Allergy Unknown Verified 06/20/23 09:26 enoxaparin [From Lovenox] AdvReac PT UNSURE Verified 06/20/23 09:26 OF REACTION Family History Mother Lung cancer Father CAD (coronary artery disease) Hypertension Heart disease Myocardial infarction Brother Myocardial infarction Hypertension Heart disease CAD (coronary artery disease) Surgical History Coronary angioplasty status H/O coronary artery bypass surgery History of bilateral hip arthroplasty History of cholecystectomy Hx of CABG Presence of cardiac pacemaker S/P CABG x 2 Status post cholecystectomy Social History household members: none housing: assisted living facility number of children: 0 current occupational status: retired Smoking Status: Never smoker alcohol intake: never substance use type: does not use ROS ROS ED Constitutional Constitutional ED: Denies chills or fever(s) Eyes Eyes: Denies blurry vision or change in vision ENT ENT ED: Denies rhinorrhea or sore throat Cardiovascular Cardiovascular: Denies chest pain or palpitations Respiratory/Chest Respiratory/Chest: Reports cough and dyspnea Gastrointestinal Gastrointestinal: Denies nausea or vomiting Genitourinary Genitourinary ED: Denies dysuria or hematuria Musculoskeletal Musculoskeletal: Denies back pain or neck pain Integumentary Denies abscess or rash Neurologic Neurologic: Denies headache(s) or weakness Allergic/Immunologic Allergic/Immunologic ED: Denies mouth swelling or urticaria EXAM Physical Exam Const Vital Signs: 06/20/23 09:21 06/20/23 10:24 06/20/23 10:55 Temperature 97.8 F 97.9 F 97.6 F L Temperature Source Oral Oral Oral Pulse Rate 65 60 55 L Respiratory Rate 16 16 16 Blood Pressure 130/60 H 129/58 H 128/53 H Blood Pressure Mean 83 81 78 Pulse Ox 94 95 95 Oxygen Delivery Method Room Air Room Air Room Air Positive well nourished, well developed and obese General Appearance ED: well developed and NAD Nutritional Appearance: obese HEENT Reports moist mucous membranes Chest Wall inspection of chest normal and palpation of chest normal Resp normal respiratory effort and clear to auscultation bilaterally Cardio regular rate and regular rhythm GI non-tender and non-distended Palpation: soft Extremity full ROM Neuro oriented x3, CN's II-XII intact bilaterally, moves all extremities and no sensory deficits noted Sensorium / Orientation: alert Motor Exam: strength 5/5 throughout Psych mental status grossly normal Skin Skin Narrative: There is a 4 x 5 cm grade 2 ulceration of the anterior aspect of the right lower leg. There is no surrounding tenderness. There is no surrounding erythema or warmth noted. There is some mild serous drainage noted. There is no purulent drainage noted. There is full range of motion. There is no calf tenderness noted. MDM MDM MDM Narrative Medical decision making narrative: Differential diagnosis includes chronic skin ulceration, infection, and sepsis. CBC will be obtained to assess for leukocytosis and anemia. Basic metabolic profile will be obtained to assess for electrolyte abnormality and renal function. Lactate will be obtained to assess for sepsis. Blood cultures will be obtained to assess for sepsis. Wound culture will be obtained to assess for wound infection. MRSA wound PCR will be obtained to assess for MRSA infection. Lab Data Attestation: I reviewed the patient's lab results. Lab results narrative: CBC was reviewed. White blood cell count was within normal limits. There is a mild anemia with a hemoglobin of 11.3 and hematocrit 37.4. Platelets were normal. Basic metabolic profile was reviewed and was essentially within normal limits. Glucose was slightly elevated at 258. CO2 was normal. Anion gap was normal. Serum lactate was reviewed and was elevated at 3.2. Labs: Laboratory Results - last 24 hr 06/20/23 09:25 WBC 8.3 RBC 4.07 L Hgb 11.3 L Hct 37.4 L MCV 91.9 MCH 27.8 MCHC 30.2 L RDW Std Deviation 58.2 H RDW Coeff of Yue 17.3 H Plt Count 246 MPV 9.9 Immature Gran % (Auto) 1.100 H Neut % (Auto) 75.0 H Lymph % (Auto) 11.0 L Hancock % (Auto) 7.7 Eos % (Auto) 4.5 Baso % (Auto) 0.7 Absolute Neuts (auto) 6.2 Absolute Lymphs (auto) 0.91 Nucleated RBC % 0 Sodium 137 Potassium 4.2 Chloride 104 Carbon Dioxide 27.0 Anion Gap 6 BUN 25 H Creatinine 1.10 Estim Creat Clear Calc 57.81 Est GFR (MDRD) Af Amer 83 Est GFR (MDRD) Non-Af 68 BUN/Creatinine Ratio 22.7 H Glucose 258 H Lactic Acid 3.2 H* Calcium 8.6 Treatment and Re-Evaluation Narrative: Patient was started on Unasyn here. Patient was advised of his findings. Upon chart review, it was noted that the patient was on metformin. This is the likely cause of his lactic acidosis. Patient has no SIRS criteria and a normal white blood cell count. Therefore, I do not feel that the lactic acidosis is from sepsis. Patient was given a prescription for Augmentin. Patient was given referral to the wound care center. Patient was instructed to have his wound changed by the home health nurse this week. Patient was instructed to return if worse in any way. Patient understood and was agreeable with the plan. All questions were answered. Discharge Plan Triage Chief Complaint: Wound ED Provider: Daquan Molina Dx/Rx/DC Orders Clinical Impression: Open wound of right lower leg, Hypertension Instructions: ED Wound Care Prescriptions: New amoxicillin-pot clavulanate [amoxicillin-pot clavulanate] 875-125 mg tablet 875 mg PO Q12H Qty: 20 0RF No Action oxybutynin chloride 15 mg tablet extended release 24hr 15 mg PO DAILY nitroglycerin 0.4 MG tablet 0.4 mg sublingual Q5M PRN (Reason: Chest Pain) Patient Comments: CHEST aspirin 81 MG tablet,chewable 81 mg PO DAILY Patient Comments: HEART HEALTH magnesium oxide 400 MG tablet 400 mg PO DAILY Patient Comments: MAGNESIUM SUPPLEMENT furosemide 40 MG tablet 80 mg PO DAILY atorvastatin 80 MG tablet 80 mg PO QHS montelukast 10 MG tablet 10 mg PO QHS fluticasone propionate 1 SPRAY spray,suspension 2 spray NASAL DAILY cholecalciferol (vitamin D3) 2,000 UNIT capsule 2,000 unit PO BID tamsulosin 0.4 mg Capsule 0.4 mg PO QHS mirtazapine 15 mg Tablet 15 mg PO QHS glimepiride 4 mg Tablet 4 mg PO BREAKFAST docusate sodium 100 MG capsule 100 mg PO DAILY Trulance 3 mg tablet 3 mg PO DAILY clopidogrel 75 mg Tablet 75 mg PO DAILY Qty: 30 0RF isosorbide mononitrate 30 mg Tablet Extended Release 24 Hr 30 mg PO DAILY Qty: 30 0RF spironolactone 25 mg Tablet 25 mg PO DAILY Qty: 30 0RF fluticasone furoate-vilanterol [Breo Ellipta] 200-25 mcg/dose blister with device 1 inh INHALATION DAILY losartan 25 mg tablet 25 mg PO QHS Rx Instructions: HOLD IF SYSTOLIC <100 metoprolol succinate 25 mg tablet extended release 24 hr 25 mg PO DAILY Rx Instructions: HOLD hr <55 HOLD SYSTOLIC <95 Januvia 100 mg tablet 100 mg PO DAILY omega-3 fatty acids-vitamin E 1,000 mg Capsule 1 cap PO DAILY furosemide 80 mg tablet 80 mg PO DAILY metformin 1,000 mg tablet 1,000 mg PO BID calcium carbonate-vitamin D3 [Calcium 600 + D(3)] 600 mg-5 mcg (200 unit) tablet 1 tab PO BID pantoprazole 40 mg tablet,delayed release (DR/EC) 40 mg PO BID Primary Care Provider: Bertrand Warner Referrals: Bertrand Warner MD [Primary Care Provider] - 3-5 Days Wound,Center [Non-Staff] - 3-5 Days Disposition Disposition: Home, Self Care
[2023-06-20 10:19] LABS: Absolute Lymphocyte Count 0.91 X10^3/uL (0.83-4.51); Absolute Neutrophil Count 6.2 X10^3/uL (2.0-7.7); Basophil# 0.06 X10^3/uL; Basophil% 0.7 % (0-1); Eosinophil# 0.37 X10^3/uL; Eosinophils% 4.5 % (0-5); Hematocrit 37.4 % (40-54); Hemoglobin 11.3 g/dL (13.0-16.5); Lymphocyte # 0.91 X10^3/ul (0.83-4.51); Mean Corp Hgb Conc 30.2 g/dL (32-36); Mean Corpuscular Hgb 27.8 pg (27.0-32.0); Mean Corpuscular Volume 91.9 fL (80-94); Mean Platelet Vol. 9.9 fl (6.2-12.0); Monocyte# 0.64 X10^3/uL; Monocyte% 7.7 % (0-10); NRBC Flagged by Analyzer 0 % (0-5); Neutrophil # 6.22 X10^3/uL (2.7-7.7); Platelet Count 246 K/mm3 (150-450); RBC Distribution Width CV 17.3 % (11.6-14.6); RBC Distribution Width SD 58.2 fl (35.1-43.9); Red Blood Count 4.07 M/mm3 (4.6-6.2); White Blood Count 8.3 K/mm3 (4.4-11.0)
[2023-06-20] MEDS: Ampicillin/Sulbactam 3 GM in 0.9% Normal Saline (100mL MB+) 100 ML IV (10:22)
[2023-06-20 10:24] VITALS: BP 129/58; PULSE 60; RESP 16; TEMP 36.6; O2SAT 95
[2023-06-20 10:26] LABS: Anion Gap 6 (5-15); BUN 25 mg/dL (7-18); BUN/Creat Ratio 22.7 RATIO (10-20); Calcium,Total 8.6 mg/dL (8.5-10.1); Chloride 104 mmol/L (98-107); EST Glomerular Filtration Rate 68 mL/min (>60); Est Glom Filt Rate - Afr Amer 83 mL/min (>60); Estimated Creatinine Clearance 57.81 ml/min; Glucose 258 mg/dL (74-106); Potassium 4.2 mmol/L (3.5-5.1); Sodium Level 137 mmol/L (136-145)
[2023-06-20 10:52] LABS: Lactic Acid 3.2 mmol/L (0.4-1.9)
[2023-06-20] MEDS: guaiFENesin/D-Methorphan TAB.SR.12H 1 TABLET PO (10:53)
[2023-06-20 10:55] VITALS: BP 128/53; PULSE 55; RESP 16; TEMP 36.4; O2SAT 95
[2023-06-20 11:48] VITALS: BP 123/61; PULSE 60; RESP 16; O2SAT 94
[2023-06-20 12:23] LABS: M R Staph aureus DNA By PCR Negative (Negative); Probe Check PASS; Specimen Processing Control PASS; Staph aureus DNA By PCR NEGATIVE (Negative)
--- NOTE | 2023-06-20 12:26 | NURSING ---
YASIRETTE CALLED, ETA WITHIN THE HOUR
[2023-06-20 14:11] LABS: Reflex Lactate? Y
== END 2023-06-20 13:45 | disposition home or self-care (01) ==
PROVIDERS: Emergency Provider Emergency Medicine; PCP Family Medicine; Visit Provider Emergency Medicine
DX: S81.801A Unspecified open wound, right lower leg, initial encounter (principal); J44.9 Chronic obstructive pulmonary disease, unspecified; I11.0 Hypertensive heart disease with heart failure; I50.9 Heart failure, unspecified; E11.9 Type 2 diabetes mellitus without complications; E78.5 Hyperlipidemia, unspecified; I25.10 Atherosclerotic heart disease of native coronary artery without angina pectoris; Z95.0 Presence of cardiac pacemaker; Z79.899 Other long term (current) drug therapy; Z79.82 Long term (current) use of aspirin; Z79.51 Long term (current) use of inhaled steroids; Z79.02 Long term (current) use of antithrombotics/antiplatelets; K21.9 Gastro-esophageal reflux disease without esophagitis; Z98.61 Coronary angioplasty status; Z96.643 Presence of artificial hip joint, bilateral; Z90.49 Acquired absence of other specified parts of digestive tract; Z95.1 Presence of aortocoronary bypass graft
CPT/HCPCS: 80048; 83605; 85025; 87040; 87070; 87077; 87186; 87205; 87640; 96365; 99285; J7050; A4216; J0295

== ENCOUNTER 2023-06-23 14:52 | Observation (INO) | payer MEDICARE, MEDICAID, SELFPAY ==
[2023-06-23] VITALS (7 sets, daily range): BP systolic 125–148; BP diastolic 65–135; PULSE 60–82; RESP 15–20; TEMP 35.9–36.8; O2SAT 94–97; BMI 50.8
--- NOTE | 2023-06-23 15:12 | EX.ED.DYSGE1 ---
HPI History of Present Illness Chief Complaint: Wound Detail of Chief Complaint: Right leg redness and swelling Informant: patient Narrative Narrative: Patient presents to the emergency department with complaint of a wound to his right leg that he had for about 2 weeks. Patient had an assisted living facility currently. Patient states that he was recently in the emergency department for same and was discharged home with an antibiotic. Patient denies fevers or chills or sweats but states that the nursing staff felt like the wound was getting worse. Patient referred back to the emergency department. Patient is a type II diabetic. [facility] Medical History Asthma Atherosclerosis of coronary artery of [place] heart without angina pectoris Atrial fibrillation Benign essential HTN BiPAP (biphasic positive airway pressure) dependence Cancer Cardiology follow-up encounter Chest pain CHF (congestive heart failure) Cholecystitis Chronic venous insufficiency Complete heart block Congestive heart failure (CHF) Constipation COPD (chronic obstructive pulmonary disease) Diabetes Diverticulosis DM2 (diabetes mellitus, type 2) Dysphagia Edema of both legs Esophageal stricture Fall GERD (gastroesophageal reflux disease) HLD (hyperlipidemia) Hyperlipemia Hypertension Ileus following gastrointestinal surgery Junctional escape rhythm Mobitz type 1 second degree atrioventricular block Morbid obesity Non-smoker Obstructive sleep apnea Pacemaker Pancreatic abnormality Paroxysmal atrial fibrillation Prostate cancer Shortness of breath on exertion Swelling of lower extremity Symptomatic bradycardia Thyroid disease Ulcer of left lower extremity with fat layer exposed Ulcer of right lower extremity with fat layer exposed Uses wheelchair Venous stasis dermatitis of both lower extremities Wears glasses Home Medications aspirin 81 mg chewable tablet 81 mg PO DAILY HEALTH MAINTENANCE 06/09/13 [History Last Taken 06/20/23] nitroglycerin 0.4 mg sublingual tablet 0.4 mg sublingual Q5M PRN Chest Pain 06/09/13 [History Last Taken 10/17/16 09:00] magnesium oxide 400 mg (241.3 mg magnesium) tablet 400 mg PO DAILY MAGNESIUM 10/07/15 [History Last Taken 01/09/21] furosemide 40 mg tablet 80 mg PO DAILY CHF 10/17/16 [History Last Taken 01/09/21] atorvastatin 80 mg tablet 80 mg PO QHS HLD 08/05/18 [History Last Taken 06/19/23] cholecalciferol (vitamin D3) 50 mcg (2,000 unit) capsule 2,000 unit PO BID SUPPLEMENT 04/03/20 [History Last Taken 06/20/23] fluticasone propionate 50 mcg/actuation nasal spray,suspension 2 spray NASAL DAILY ALLERGIES 11/24/19 [History Last Taken 01/09/21] montelukast 10 mg tablet 10 mg PO QHS ALLERGIES 11/24/19 [History Last Taken 06/19/23] glimepiride 4 mg tablet 4 mg PO BREAKFAST DM 01/09/21 [History Last Taken 06/20/23] mirtazapine 15 mg tablet 15 mg PO QHS mental health 01/09/21 [History Last Taken 06/19/23] tamsulosin 0.4 mg capsule 0.4 mg PO QHS prostate 01/09/21 [History Last Taken 06/19/23] docusate sodium 100 mg capsule 100 mg PO DAILY stool softner 07/15/21 [History Last Taken 06/20/23] plecanatide 3 mg tablet (Trulance) 3 mg PO DAILY chronic constipation 11/14/22 [History Last Taken 06/20/23] clopidogrel 75 mg tablet 75 mg PO DAILY #30 tabs 11/17/22 [Rx Last Taken 06/20/23] fluticasone furoate 200 mcg-vilanterol 25 mcg/dose inhalation powder (Breo Ellipta) 1 inh inhalation DAILY Check with primary doctor 11/17/22 [History Last Taken 06/19/23] isosorbide mononitrate 30 mg tablet,extended release 24 hr 30 mg PO DAILY #30 tabs 11/17/22 [Rx Last Taken 06/20/23] losartan 25 mg tablet 25 mg PO QHS Check with primary doctor 11/17/22 [History Last Taken 06/19/23] metoprolol succinate 25 mg tablet,extended release 24 hr 25 mg PO DAILY Check with primary doctor 11/17/22 [History Last Taken 06/20/23] sitagliptin phosphate 100 mg tablet (Januvia) 100 mg PO DAILY Check with primary doctor 11/17/22 [History Last Taken 06/20/23] spironolactone 25 mg tablet 25 mg PO DAILY #30 tabs 11/17/22 [Rx Last Taken 06/20/23] omega-3 fatty acids-vitamin E 1,000 mg capsule 1 cap PO DAILY 12/03/22 [History Last Taken 06/20/23] oxybutynin chloride 15 mg tablet,extended release 24 hr 15 mg PO DAILY 12/15/22 [History Last Taken 06/20/23] calcium carbonate 600 mg-vitamin D3 5 mcg (200 unit) tablet (Calcium 600 + D(3)) 1 tab PO BID 06/09/23 [History Last Taken 06/20/23] pantoprazole 40 mg tablet,delayed release 40 mg PO BID 06/09/23 [History Last Taken 06/20/23] amoxicillin 875 mg-potassium clavulanate 125 mg tablet 875 mg (0.875 x 875-125 mg) PO Q12H #20 TABLETS 06/20/23 [Rx Last Taken Unknown] furosemide 80 mg tablet 80 mg PO DAILY 06/20/23 [History Last Taken 06/20/23] metformin 1,000 mg tablet 1,000 mg PO BID 06/20/23 [History Last Taken 06/20/23] Allergy/AdvReac Type Severity Reaction Status Date / Time lisinopril Allergy Unknown Verified 06/23/23 14:54 paroxetine [From Paxil] Allergy NEEDS Verified 06/23/23 14:54 FOLLOW-UP sertraline Allergy Unknown Verified 06/23/23 14:54 enoxaparin [From Lovenox] AdvReac PT UNSURE Verified 06/23/23 14:54 OF REACTION Family History Mother Lung cancer Father CAD (coronary artery disease) Hypertension Heart disease Myocardial infarction Brother Myocardial infarction Hypertension Heart disease CAD (coronary artery disease) Surgical History Coronary angioplasty status H/O coronary artery bypass surgery History of bilateral hip arthroplasty History of cholecystectomy Hx of CABG Presence of cardiac pacemaker S/P CABG x 2 Status post cholecystectomy Social History household members: none housing: assisted living facility number of children: 0 current occupational status: retired Smoking Status: Never smoker alcohol intake: never substance use type: does not use ROS ROS ED Review of Systems ROS Unobtainable: other Constitutional Constitutional ED: Reports lethargy; Denies chills, fever(s), sweats or weight loss Eyes Eyes: Denies blurry vision, change in vision or diplopia ENT ENT ED: Denies rhinorrhea or sore throat Cardiovascular Cardiovascular: Denies chest pain, orthopnea or racing heartbeat Respiratory/Chest Respiratory/Chest: Denies cough, dyspnea, dyspnea on exertion, orthopnea or sputum Gastrointestinal Gastrointestinal: Denies abdominal pain, diarrhea, nausea or vomiting Genitourinary Genitourinary ED: Denies dysuria, hematuria or urinary frequency Musculoskeletal Musculoskeletal: Denies arthralgias, back pain, myalgias or neck pain Integumentary Reports rash and other Details: Redness and swelling and wound to right leg ; Denies abscess or Abrasions Neurologic Neurologic: Denies headache(s) or weakness Psychiatric Psychiatric: Denies anxiety, depression or suicidal thoughts Endocrine Endocrinology: Denies polydipsia, polyphagia or polyuria Hematologic/Lymphatic Hematologic/Lymphatic: Denies easy bleeding, easy bruising or lymphadenopathy Allergic/Immunologic Allergic/Immunologic ED: Denies mouth swelling, tongue swelling or urticaria EXAM Physical Exam Const Vital Signs: 06/23/23 14:53 06/23/23 16:00 06/23/23 15:54 Temperature 96.7 F L 98.3 F Temperature Source Temporal Temporal Pulse Rate 62 60 60 Respiratory Rate 18 16 16 Blood Pressure 144/76 H 128/74 H 125/71 H Blood Pressure Mean 98 92 89 Pulse Ox 94 95 95 Oxygen Delivery Method Room Air Room Air Room Air Positive well nourished and well developed General Appearance ED: well developed and NAD HEENT Reports TM's clear and moist mucous membranes normocephalic and atraumatic; Negative for trauma or tenderness Tympanic Membrane ED: Yes TM's clear Eyes PERRL and EOMs intact bilaterally General Eye ED: Negative for pale conjunctiva or scleral icterus Neck no lymphadenopathy, supple and no JVD General: Negative for tenderness Chest Wall inspection of chest normal and palpation of chest normal Chest: Negative for tenderness Resp normal respiratory effort and clear to auscultation bilaterally Effort and Inspection: Negative for respiratory distress or pain with movement Auscultation: Negative for rhonchi, wheezes or diminished lung sounds Cardio regular rate, regular rhythm, S1 normal heart sound, S2 normal heart sound and no murmurs Peripheral Pulses: pulses 2+ throughout GI normal to inspection, nondistended, normoactive bowel sounds, soft to palpation, non-tender, non-distended and no masses Back/Spine no CVA tenderness and no thoracic nor lumbar tenderness Extremity Extremity Narrative: Leg-patient has diffuse erythema from the knee down to the foot. There is soft tissue swelling and edema. He has a wound measuring approximately 4 cm in diameter to the distal third anterior tibia that appears to be superficial. There are some serous drainage from it. There is an odor to the wound. General Extremety ED: Negative for edema General Extremity: Negative for edema Neuro oriented x3, CN's II-XII intact bilaterally, no sensory deficits noted and gait normal Sensorium / Orientation: awake, alert, oriented to person, oriented to place and oriented to time Motor Exam: strength 5/5 throughout and strength abnormal Psych mental status grossly normal Skin no rashes or lesions noted and no wounds MDM MDM MDM Narrative Medical decision making narrative: Patient presents with redness and swelling to the right leg x2 weeks with a chronic wound. Patient is a diabetic. Not improving on antibiotics as outpatient. Referred back to the emergency department. Clinically he looks well. Initially IV line established. Patient was started on Unasyn and vancomycin IV. Patient had basic labs obtained CBC showed a normal white count of 7.8 with hemoglobin of 11 and platelet count of 234. Chemistries unremarkable. Lactate was elevated 2.7 and he also had a previously elevated lactate that was thought to be related to his diabetic medications. I had patient evaluated by hospitalist who is case with patient's primary care physician and he came up with a plan going forward to admit for diuresis. Lab Data Attestation: I reviewed the patient's lab results. Labs: Laboratory Results - last 24 hr 06/23/23 15:15 WBC 7.8 RBC 4.14 L Hgb 11.4 L Hct 37.4 L MCV 90.3 MCH 27.5 MCHC 30.5 L RDW Std Deviation 58.1 H RDW Coeff of Yue 17.6 H Plt Count 234 MPV 9.3 Immature Gran % (Auto) 0.600 Neut % (Auto) 74.2 H Lymph % (Auto) 10.1 L [place] % (Auto) 10.8 H Eos % (Auto) 3.7 Baso % (Auto) 0.6 Absolute Neuts (auto) 5.8 Absolute Lymphs (auto) 0.79 L Nucleated RBC % 0 Sodium 140 Potassium 4.3 Chloride 106 Carbon Dioxide 28.0 Anion Gap 6 BUN 21 H Creatinine 0.95 Estim Creat Clear Calc 66.94 Est GFR (MDRD) Af Amer 98 Est GFR (MDRD) Non-Af 81 BUN/Creatinine Ratio 22.1 H Glucose 198 H Lactic Acid 2.7 H* Calcium 8.7 Radiography Diagnostic Testing: Clinical Impression(s) from Imaging Studies Tibia/Fibula X-Ray 06/23/23 15:35 IMPRESSION: Diffuse soft tissue swelling. Electronically Signed: Christiano Odom MD at 15:50 EDT , Discharge Plan Triage Chief Complaint: Wound ED Provider: Virginia Beasley Dx/Rx/DC Orders Clinical Impression: Chronic wound, Cellulitis of right lower limb, Lymphedema Prescriptions: No Action oxybutynin chloride 15 mg tablet extended release 24hr 15 mg PO DAILY nitroglycerin 0.4 MG tablet 0.4 mg sublingual Q5M PRN (Reason: Chest Pain) Patient Comments: CHEST aspirin 81 MG tablet,chewable 81 mg PO DAILY Patient Comments: HEART HEALTH magnesium oxide 400 MG tablet 400 mg PO DAILY Patient Comments: MAGNESIUM SUPPLEMENT furosemide 40 MG tablet 80 mg PO DAILY atorvastatin 80 MG tablet 80 mg PO QHS montelukast 10 MG tablet 10 mg PO QHS fluticasone propionate 1 SPRAY spray,suspension 2 spray NASAL DAILY cholecalciferol (vitamin D3) 2,000 UNIT capsule 2,000 unit PO BID tamsulosin 0.4 mg Capsule 0.4 mg PO QHS mirtazapine 15 mg Tablet 15 mg PO QHS glimepiride 4 mg Tablet 4 mg PO BREAKFAST docusate sodium 100 MG capsule 100 mg PO DAILY Trulance 3 mg tablet 3 mg PO DAILY clopidogrel 75 mg Tablet 75 mg PO DAILY Qty: 30 0RF isosorbide mononitrate 30 mg Tablet Extended Release 24 Hr 30 mg PO DAILY Qty: 30 0RF spironolactone 25 mg Tablet 25 mg PO DAILY Qty: 30 0RF fluticasone furoate-vilanterol [Breo Ellipta] 200-25 mcg/dose blister with device 1 inh INHALATION DAILY losartan 25 mg tablet 25 mg PO QHS Rx Instructions: HOLD IF SYSTOLIC <100 metoprolol succinate 25 mg tablet extended release 24 hr 25 mg PO DAILY Rx Instructions: HOLD hr <55 HOLD SYSTOLIC <95 Januvia 100 mg tablet 100 mg PO DAILY omega-3 fatty acids-vitamin E 1,000 mg Capsule 1 cap PO DAILY furosemide 80 mg tablet 80 mg PO DAILY metformin 1,000 mg tablet 1,000 mg PO BID amoxicillin-pot clavulanate [amoxicillin-pot clavulanate] 875-125 mg tablet 875 mg PO Q12H Qty: 20 0RF calcium carbonate-vitamin D3 [Calcium 600 + D(3)] 600 mg-5 mcg (200 unit) tablet 1 tab PO BID pantoprazole 40 mg tablet,delayed release (DR/EC) 40 mg PO BID Primary Care Provider: Bertrand Warner Referrals: Bertrand Warner MD [Primary Care Provider] - 06/25/23 Activity Restrictions/Additional Instructions: <del>Increase</del> <del>your</del> <del>spironolactone</del> <del>to</del> <del>50</del> <del>mg/day</del> <del>Discontinue</del> <del>your</del> <del>Augmentin</del> <del>as</del> <del>we</del> <del>will</del> <del>be</del> <del>starting</del> <del>Omnicef</del> <del>instead.</del> Disposition Disposition: [facility]
[2023-06-23 15:28] LABS: Absolute Lymphocyte Count 0.79 X10^3/uL (0.83-4.51); Absolute Neutrophil Count 5.8 X10^3/uL (2.0-7.7); Basophil# 0.05 X10^3/uL; Basophil% 0.6 % (0-1); Eosinophil# 0.29 X10^3/uL; Eosinophils% 3.7 % (0-5); Hematocrit 37.4 % (40-54); Hemoglobin 11.4 g/dL (13.0-16.5); Lymphocyte # 0.79 X10^3/ul (0.83-4.51); Lymphocyte % 10.1 % (19-41); Mean Corp Hgb Conc 30.5 g/dL (32-36); Mean Corpuscular Hgb 27.5 pg (27.0-32.0); Mean Corpuscular Volume 90.3 fL (80-94); Mean Platelet Vol. 9.3 fl (6.2-12.0); Monocyte# 0.85 X10^3/uL; Monocyte% 10.8 % (0-10); NRBC Flagged by Analyzer 0 % (0-5); Neutrophil # 5.81 X10^3/uL (2.7-7.7); Neutrophil % 74.2 % (47-70); Platelet Count 234 K/mm3 (150-450); RBC Distribution Width CV 17.6 % (11.6-14.6); RBC Distribution Width SD 58.1 fl (35.1-43.9); Red Blood Count 4.14 M/mm3 (4.6-6.2); White Blood Count 7.8 K/mm3 (4.4-11.0)
--- NOTE | 2023-06-23 15:35 | RAD_ITS ---
STUDY: X-RAY - RIGHT TIBIA AND FIBULA REASON FOR EXAM: Male, 82 years old. Swelling TECHNIQUE: 4 view(s) of the tibia and fibula were obtained. COMPARISON: None. FINDINGS: Normal visualized tibia. Normal visualized fibula. Diffuse soft tissue swelling RAD/Tibia & Fibula 2 Views IMPRESSION: Diffuse soft tissue swelling. Electronically Signed: Christiano Odom MD at 15:50 EDT ,
[2023-06-23 15:41] LABS: Anion Gap 6 (5-15); BUN 21 mg/dL (7-18); BUN/Creat Ratio 22.1 RATIO (10-20); Calcium,Total 8.7 mg/dL (8.5-10.1); Chloride 106 mmol/L (98-107); Creatinine, Serum 0.95 mg/dL (0.70-1.30); EST Glomerular Filtration Rate 81 mL/min (>60); Est Glom Filt Rate - Afr Amer 98 mL/min (>60); Estimated Creatinine Clearance 66.94 ml/min; Glucose 198 mg/dL (74-106); Potassium 4.3 mmol/L (3.5-5.1); Sodium Level 140 mmol/L (136-145)
[2023-06-23] MEDS: Ampicillin/Sulbactam 3 GM in 0.9% Normal Saline (100mL MB+) 100 ML IV (15:54)
[2023-06-23 16:06] LABS: Lactic Acid 2.7 mmol/L (0.4-1.9)
[2023-06-23] MEDS: Vancomycin HCl 2,000 MG in 0.9% Normal Saline (500mL Bag) 500 ML 250 MG IV (16:39)
--- NOTE | 2023-06-23 16:41 | NURSING ---
MED SURG OBS TERELETSKY LYMPHEDEMA, CELLULITIS RIGHT LEG
--- NOTE | 2023-06-23 16:56 | HP.PCM.HOS_ITS ---
HPI - General General Date of Admission: 06/23/23 Date of Service: 06/23/23 Chief Complaint: Right lower leg wound HPI Narrative LINCOLN KENDRICK, is a 82 M who presents to the emergency room at [facility] after being sent in by assisted living-patient lives at [facility]- due to a nonhealing wound on his right casillas area. He was seen in the emergency room on 06/20/2023 and placed on Augmentin, he has no one at the assisted living that we will dress his wound and he has a history of lymphedema of his legs. Patient denies any fevers or chills. Report of the wound culture from 06/20/2023 grew out Acinetobacter and ESBL Klebsiella pneumonia. Labs obtained on the patient in the ER showed a normal white blood cell count, hemoglobin was slightly low at 11.4, patient's glucose was 198, lactic acid was 2.7, and BUN was 21. Examination of the patient's right lower leg wound showed it to have nonpurulent drainage, there was some serosanguineous drainage noted on the 4 x 4 and on the wound surface. Patient's lower legs were both lymphedematous with more swelling in the right leg. There was also evidence of edema in the thighs bilaterally but it was nonpitting in nature. Patient will be placed in observation status for lymphedema, due to social issues, he cannot obtain a ride to see his family practitioner this week and I felt it was necessary to place him in the hospital for overnight diuresis. I will have PT and OT see him to see if he can remain at assisted living, patient will be placed on oral Levaquin for his wound. Patient will be seen by the wound care nurse and he will need follow-up at the wound care clinic. I talked to his PCP by phone about the plan of care. COUNT INCLUDES THE [facility] Medical History Asthma Atherosclerosis of coronary artery of [place] heart without angina pectoris Atrial fibrillation Benign essential HTN BiPAP (biphasic positive airway pressure) dependence Cancer Cardiology follow-up encounter Chest pain CHF (congestive heart failure) Cholecystitis Chronic venous insufficiency Complete heart block Congestive heart failure (CHF) Constipation COPD (chronic obstructive pulmonary disease) Diabetes Diverticulosis DM2 (diabetes mellitus, type 2) Dysphagia Edema of both legs Esophageal stricture Fall GERD (gastroesophageal reflux disease) HLD (hyperlipidemia) Hyperlipemia Hypertension Ileus following gastrointestinal surgery Junctional escape rhythm Mobitz type 1 second degree atrioventricular block Morbid obesity Non-smoker Obstructive sleep apnea Pacemaker Pancreatic abnormality Paroxysmal atrial fibrillation Prostate cancer Shortness of breath on exertion Swelling of lower extremity Symptomatic bradycardia Thyroid disease Ulcer of left lower extremity with fat layer exposed Ulcer of right lower extremity with fat layer exposed Uses wheelchair Venous stasis dermatitis of both lower extremities Wears glasses Home Medications aspirin 81 mg chewable tablet 81 mg PO DAILY HEALTH MAINTENANCE 06/09/13 [History Last Taken 06/20/23] nitroglycerin 0.4 mg sublingual tablet 0.4 mg sublingual Q5M PRN Chest Pain 06/09/13 [History Last Taken 10/17/16 09:00] magnesium oxide 400 mg (241.3 mg magnesium) tablet 400 mg PO DAILY MAGNESIUM 10/07/15 [History Last Taken 01/09/21] furosemide 40 mg tablet 80 mg PO DAILY CHF 10/17/16 [History Last Taken 01/09/21] atorvastatin 80 mg tablet 80 mg PO QHS HLD 08/05/18 [History Last Taken 06/19/23] cholecalciferol (vitamin D3) 50 mcg (2,000 unit) capsule 2,000 unit PO BID SUPPLEMENT 11/24/19 [History Last Taken 06/20/23] fluticasone propionate 50 mcg/actuation nasal spray,suspension 2 spray NASAL DAILY ALLERGIES 11/24/19 [History Last Taken 01/09/21] montelukast 10 mg tablet 10 mg PO QHS ALLERGIES 11/24/19 [History Last Taken 06/19/23] glimepiride 4 mg tablet 4 mg PO BREAKFAST DM 01/09/21 [History Last Taken 06/20/23] mirtazapine 15 mg tablet 15 mg PO QHS mental health 01/09/21 [History Last Taken 06/19/23] tamsulosin 0.4 mg capsule 0.4 mg PO QHS prostate 01/09/21 [History Last Taken 06/19/23] docusate sodium 100 mg capsule 100 mg PO DAILY stool softner 07/15/21 [History L ast Taken 06/20/23] plecanatide 3 mg tablet (Trulance) 3 mg PO DAILY chronic constipation 11/14/22 [ History Last Taken 06/20/23] clopidogrel 75 mg tablet 75 mg PO DAILY #30 tabs 11/17/22 [Rx Last Taken 06/20/23] fluticasone furoate 200 mcg-vilanterol 25 mcg/dose inhalation powder (Breo Ellipta) 1 inh inhalation DAILY Check with primary doctor 11/17/22 [History Last Taken 06/19/23] isosorbide mononitrate 30 mg tablet,extended release 24 hr 30 mg PO DAILY #30 tabs 11/17/22 [Rx Last Taken 06/20/23] losartan 25 mg tablet 25 mg PO QHS Check with primary doctor 11/17/22 [History Last Taken 06/19/23] metoprolol succinate 25 mg tablet,extended release 24 hr 25 mg PO DAILY Check with primary doctor 11/17/22 [History Last Taken 06/20/23] sitagliptin phosphate 100 mg tablet (Riccouvtariq) 100 mg PO DAILY Check with primary doctor 11/17/22 [History Last Taken 06/20/23] spironolactone 25 mg tablet 25 mg PO DAILY #30 tabs 11/17/22 [Rx Last Taken 06/20/23] omega-3 fatty acids-vitamin E 1,000 mg capsule 1 cap PO DAILY 12/03/22 [History Last Taken 06/20/23] oxybutynin chloride 15 mg tablet,extended release 24 hr 15 mg PO DAILY 12/15/22 [History Last Taken 06/20/23] calcium carbonate 600 mg-vitamin D3 5 mcg (200 unit) tablet (Calcium 600 + D(3)) 1 tab PO BID 06/09/23 [History Last Taken 06/20/23] pantoprazole 40 mg tablet,delayed release 40 mg PO BID 06/09/23 [History Last Taken 06/20/23] amoxicillin 875 mg-potassium clavulanate 125 mg tablet 875 mg (0.875 x 875-125 mg) PO Q12H #20 TABLETS 06/20/23 [Rx Last Taken Unknown] furosemide 80 mg tablet 80 mg PO DAILY 06/20/23 [History Last Taken 06/20/23] metformin 1,000 mg tablet 1,000 mg PO BID 06/20/23 [History Last Taken 06/20/23] Allergy/AdvReac Type Severity Reaction Status Date / Time lisinopril Allergy Unknown Verified 06/23/23 14:54 paroxetine [From Paxil] Allergy NEEDS Verified 06/23/23 14:54 FOLLOW-UP sertraline Allergy Unknown Verified 06/23/23 14:54 enoxaparin [From Lovenox] AdvReac PT UNSURE Verified 06/23/23 14:54 OF REACTION Family History Mother Lung cancer Father CAD (coronary artery disease) Hypertension Heart disease Myocardial infarction Brother Myocardial infarction Hypertension Heart disease CAD (coronary artery disease) Surgical History Coronary angioplasty status H/O coronary artery bypass surgery History of bilateral hip arthroplasty History of cholecystectomy Hx of CABG Presence of cardiac pacemaker S/P CABG x 2 Status post cholecystectomy Social History household members: none housing: assisted living facility number of children: 0 current occupational status: retired Smoking Status: Never smoker alcohol intake: never substance use type: does not use ROS Constitutional Constitutional: Denies anorexia, change in weight, chills, fatigue, fever(s), malaise, night sweats or weakness Eyes Eyes: Denies blurry vision, change in vision, discharge from eye(s) or eye pain Cardiovascular Cardiovascular: Denies chest pain, claudication, dyspnea on exertion, edema, lightheadedness or palpitations Respiratory/Chest Respiratory/Chest: Denies cough, hemoptysis, shortness of breath at rest or shortness of breath with exertion Gastrointestinal Gastrointestinal: Denies abdominal pain, constipation, diarrhea, hematemesis, hematochezia, melena, nausea or vomiting Genitourinary Genitourinary: Denies dysuria, hematuria, urinary frequency, urinary hesitancy, urinary incontinence or urinary urgency Musculoskeletal Musculoskeletal: Reports arthralgias and joint pain; Denies back pain, joint stiffness, joint swelling, myalgias or neck pain Neurologic Neurologic: Denies abnormal gait, abnormal speech, dizziness, focal weakness, headache(s), loss of vision, numbness, other visual disturbances, paresthesias, syncope or tingling Psychiatric Psychiatric: Denies anxiety, cognitive impairment, depression, irritability, mood swings or suicidal ideation Endocrine Endocrinology: Denies change in body appearance, cold intolerance, excessive swe ating, heat intolerance, polydipsia or polyuria Hematologic/Lymphatic Hematologic/Lymphatic: Denies none, anemia, easy bleeding, easy bruising or lymphadenopathy Allergic/Immunologic Allergic/Immunologic: Denies rhinitis, urticaria, eczemia or asthma Vital Signs Vital Signs Vital Signs: 06/23/23 14:53 06/23/23 16:00 06/23/23 15:54 Temperature 96.7 F L 98.3 F Temperature Source Temporal Temporal Pulse Rate 62 60 60 Respiratory Rate 18 16 16 Blood Pressure 144/76 H 128/74 H 125/71 H Blood Pressure Mean 98 92 89 Pulse Ox 94 95 95 Oxygen Delivery Method Room Air Room Air Room Air Weight Weight: 169.9 kg Body Mass Index (BMI) 50.8 Physical Exam Const alert, oriented x3 and no apparent distress Constitutional Narrative: Patient is morbidly obese General Appearance: cooperative, well kempt and well developed Orientation / Consciousness: awake, oriented to person, oriented to place and oriented to time HEENT normocephalic, head/scalp atraumatic, hearing grossly normal bilaterally and moist oral mucous membranes Eyes PERRL, EOMs intact bilaterally and conjunctivae normal Neck supple, no JVD, thyroid normal and no carotid bruits General: trachea midline Resp normal respiratory effort, no retractions, no use of accessory muscles and clear to auscultation bilaterally Auscultation: Negative for rales, rhonchi or wheezes Cardio regular rate, regular rhythm, S1 normal heart sound, S2 normal heart sound, no murmurs, no rub and no gallops GI normal to inspection, nondistended, normoactive bowel sounds, soft to palpation, non-tender and non-distended GI Narrative: Patient is morbidly obese Extremity Extremity Narrative: There are skin changes compatible with lymphedema over the lower extremities bilaterally, worse on the right, there is a superficial wound on the anterior aspect of the right casillas approximately midway down the right lower leg, this wound is approximately 5 to 6 cm in length and 3 cm in diameter, there is some serosanguineous drainage noted coming from the area. There is signs of non pitting edema in the thighs bilaterally Skin no rashes or lesions noted General Skin Exam: no breakdown Neuro oriented x3, CN's II-XII intact bilaterally, moves all extremities, no focal motor deficits and no sensory deficits noted Sensorium / Orientation: awake and alert Speech: speech normal Psych affect normal Results Lab / Micro Data 06/23/23 15:15 06/23/23 15:15 Labs: Laboratory Results - last 24 hr 06/23/23 15:15: WBC 7.8, RBC 4.14 L, Hgb 11.4 L, Hct 37.4 L, MCV 90.3, MCH 27.5, MCHC 30.5 L, RDW Std Deviation 58.1 H, RDW Coeff of Yue 17.6 H, Plt Count 234, MPV 9.3, Immature Gran % (Auto) 0.600, Neut % (Auto) 74.2 H, Lymph % (Auto) 10.1 L, [place] % (Auto) 10.8 H, Eos % (Auto) 3.7, Baso % (Auto) 0.6, Absolute Neuts (auto) 5.8, Absolute Lymphs (auto) 0.79 L, Nucleated RBC % 0, Sodium 140, Potassium 4.3, Chloride 106, Carbon Dioxide 28.0, Anion Gap 6, BUN 21 H, Creatinine 0.95, Estim Creat Clear Calc 66.94, Est GFR (MDRD) Af Amer 98, Est GFR (MDRD) Non-Af 81, BUN/Creatinine Ratio 22.1 H, Glucose 198 H, Lactic Acid 2.7 H*, Calcium 8.7 Radiology Impression Tibia/Fibula X-Ray 06/23/23 15:35 IMPRESSION: Diffuse soft tissue swelling. Electronically Signed: Christiano Odom MD at 15:50 EDT Reading Location ID and State: [address] [place] [address] , Service support , Assessment & Plan Assessment/Plan (1) Lymphedema: PLAN: Plan 1. Lymphedema-resistant to outpatient treatment-patient will be placed in observation status on MedSurg, he will be placed on IV Lasix every 8 hours, he will have his lower legs wrapped and will need to be reevaluated tomorrow for possible discharge back to assisted living if the patient is capable of ambulating with physical therapy and Occupational Therapy. #2 superficial wound to the right lower leg-Acinetobacter and ESBL Klebsiella- both these organisms are susceptible to levofloxacin, I placed him on Levaquin 750 mg daily starting tonight, I do not feel the patient needs IV antibiotic ad ministration at this time #3 type 2 diabetes-patient's blood sugars will be monitored by fingerstick means and sliding scale insulin will be given, I have elected to keep him on his oral medications for diabetes #4 coronary artery disease-this appears to be stable at this time-patient is on antiplatelet medication #5 hyperlipidemia-patient is currently on atorvastatin #6 morbid obesity-complicates care, medical course, recovery, and prognosis #7 generalized debility secondary to morbid obesity and multiple medical problems-patient will be seen by PT and OT, there is a possibility he will need temporary placement in a senior care facility if he is not able to care for self #8 essential hypertension-patient will remain on his present home medications Total clinical time spent by myself addressing the patient's medical issues, reviewing all of his data, and collaborating with patient's care team: 75- minutes Charges/Coding Visit Charges Inpatient E&M: 61282 Init Hosp L3
[2023-06-23 19:24] LABS: Reflex Lactate? Y
[2023-06-23] MEDS: metFORMIN HCl 1,000 MG Tablet 1000 MG PO (21:11)
[2023-06-23] MEDS: Tamsulosin HCl 0.4 MG Capsule PO (21:12)
[2023-06-23] MEDS: Pantoprazole Sodium 40 MG Tablet PO (21:12)
[2023-06-23] MEDS: Losartan Potassium 25 MG Tablet PO (21:14)
[2023-06-23] MEDS: levoFLOXacin 750 MG Tablet PO (21:14)
[2023-06-23] MEDS: Atorvastatin Calcium 80 MG Tablet PO (21:15)
[2023-06-23] MEDS: Mirtazapine 15 MG Tablet PO (21:16)
[2023-06-23 21:21] LABS: Lactic Acid 1.9 mmol/L (0.4-1.9)
[2023-06-23] MEDS: Spironolactone 25 MG Tablet PO (21:23)
[2023-06-23] MEDS: Furosemide 100 MG/10 ML Vial 60 MG IV (21:25)
[2023-06-23 23:40] LABS: Bedside Glucose 131 mg/dL (74-106)
[2023-06-24] MEDS: guaiFENesin 600 MG Tablet PO ×3 (01:37→22:33)
[2023-06-24 03:44] VITALS: BP 113/56; PULSE 65; RESP 18; TEMP 36.4; O2SAT 98
[2023-06-24 05:03] VITALS: BP 121/60; PULSE 65
[2023-06-24] MEDS: Furosemide 100 MG/10 ML Vial 60 MG IV ×3 (05:04→22:35)
[2023-06-24 06:51] LABS: Bedside Glucose 91 mg/dL (74-106)
[2023-06-24 07:28] LABS: Anion Gap 8 (5-15); BUN 17 mg/dL (7-18); BUN/Creat Ratio 20.2 RATIO (10-20); Calcium,Total 8.7 mg/dL (8.5-10.1); Chloride 103 mmol/L (98-107); Creatinine, Serum 0.84 mg/dL (0.70-1.30); EST Glomerular Filtration Rate 93 mL/min (>60); Est Glom Filt Rate - Afr Amer 112 mL/min (>60); Glucose 90 mg/dL (74-106); Potassium 3.5 mmol/L (3.5-5.1); Sodium Level 138 mmol/L (136-145)
[2023-06-24] MEDS: metFORMIN HCl 1,000 MG Tablet 1000 MG PO ×2 (08:09→15:58)
[2023-06-24] MEDS: Aspirin 81 MG TAB.CHEW PO (08:09)
[2023-06-24] MEDS: Tolterodine Tartrate 4 MG CAP.SA PO (08:09)
[2023-06-24] MEDS: Potassium Chloride Oral Tablet 20 MEQ PO (08:09)
[2023-06-24] MEDS: Clopidogrel Bisulfate 75 MG Tablet PO (08:10)
[2023-06-24] MEDS: Isosorbide Mononitrate 30 MG Tablet PO (08:10)
[2023-06-24] MEDS: Docusate Sodium 100 MG Capsule PO (08:10)
[2023-06-24] MEDS: Pantoprazole Sodium 40 MG Tablet PO ×2 (08:10→22:33)
[2023-06-24 08:12] VITALS: BP 120/58; PULSE 60
[2023-06-24] MEDS: Spironolactone 50 MG Tablet PO (08:12)
[2023-06-24] MEDS: Metoprolol(XL)Succ 25 MG Tablet PO (08:12)
[2023-06-24] MEDS: Heparin Injection (Vial) 5,000 UNIT/ML VIAL 5000 UNIT SC (08:16)
[2023-06-24 08:18] VITALS: BP 120/58; PULSE 64; RESP 18; TEMP 36.8; O2SAT 94
--- NOTE | 2023-06-24 09:54 | PCM.PN.HOSP ---
Reason for Visit Reason for Visit: Diagnoses Lymphedema, not elsewhere classified (06/23/23) Subjective Subjective Patient is an 82-year-old gentleman sent to the ED by the primary care physician on account of wound to his right lower extremity Objective Data Objective Data Vital Signs: Vital Signs Temp Pulse Resp BP Pulse Ox O2 Del Method O2 Flow Rate 98.2 F 64 18 120/58 L 94 Room Air 2 06/24/23 08:18 06/24/23 08:18 06/24/23 08:18 06/24/23 08:18 06/24/23 08:18 06/24/23 08:18 06/24/23 03:44 Oxygen Flow Rate (L/min) 2 Oxygen Delivery Method Room Air Weight: 169.9 kg Body Mass Index (BMI) 50.8 Intake & Output: Intake and Output for Last 24 Hours 06/22/23 06/23/23 06/24/23 23:59 23:59 23:59 Intake Total 652 / 652 Output Total 950 / 950 1100 / 1100 Balance -298 / -298 -1100 / -1100 Lab / Micro Data 06/23/23 15:15 06/24/23 05:37 Labs: Laboratory Results - last 24 hr 06/23/23 15:15: WBC 7.8, RBC 4.14 L, Hgb 11.4 L, Hct 37.4 L, MCV 90.3, MCH 27.5, MCHC 30.5 L, RDW Std Deviation 58.1 H, RDW Coeff of Yue 17.6 H, Plt Count 234, MPV 9.3, Immature Gran % (Auto) 0.600, Neut % (Auto) 74.2 H, Lymph % (Auto) 10.1 L, [place] % (Auto) 10.8 H, Eos % (Auto) 3.7, Baso % (Auto) 0.6, Absolute Neuts (auto) 5.8, Absolute Lymphs (auto) 0.79 L, Nucleated RBC % 0, Sodium 140, Potassium 4.3, Chloride 106, Carbon Dioxide 28.0, Anion Gap 6, BUN 21 H, Creatinine 0.95, Estim Creat Clear Calc 66.94, Est GFR (MDRD) Af Amer 98, Est GFR (MDRD) Non-Af 81, BUN/Creatinine Ratio 22.1 H, Glucose 198 H, Lactic Acid 2.7 H*, Calcium 8.7 06/23/23 20:37: Lactic Acid 1.9 06/23/23 21:04: POC Glucose 131 H 06/24/23 05:37: Sodium 138, Potassium 3.5, Chloride 103, Carbon Dioxide 27.0, Anion Gap 8, BUN 17, Creatinine 0.84, Estim Creat Clear Calc 75.70, Est GFR (MDRD) Af Amer 112, Est GFR (MDRD) Non-Af 93, BUN/Creatinine Ratio 20.2 H, Glucose 90, Calcium 8.7 06/24/23 06:22: POC Glucose 91 Radiography Diagnostic Testing: Radiology Impression Tibia/Fibula X-Ray 06/23/23 15:35 IMPRESSION: Diffuse soft tissue swelling. Electronically Signed: Christiano Odom MD at 15:50 EDT , Physical Exam Narrative GENERAL: cooperative HEENT: Atraumatic; normocephalic EYES; Anicteric, Normal Conjunctiva NECK; supple, normal thyroid, RESPIRATORY: Diminished to auscultation CARDIOVASCULAR: Regular S1 S2, GI: soft, normoactive bowel sounds, : No Renal angle tenderness; EXTREMITIES: Bilateral lymphedema MUSCULOSKELETAL: no muscle wasting NEURO: Awake; no lateralizing signs. SKIN: No Rash PSYCH; Flat affect Assessment & Plan Assessment/Plan (1) Lymphedema: PLAN: Plan Patient is an 82-year-old gentleman sent to the ED by the primary care physician on account of wound to his right lower extremity 1. Superficial wound to the right lower leg ? Cultures came back positive for Acinetobacter as well as ESBL both sensitive to flocculence patient started on Levaquin 2. Bilateral lower extremity lymphedema ? Apparently resistant to outpatient treatment admitted for inpatient treatment with IV diuretics consult placed wound care nurse 3. Acute on chronic congestive heart failure with preserved ejection fraction (present on admission) ? Echo from 11/16/2022 demonstrated EF of 60%. Managed with diuretics, strict input and output, daily weight, low-sodium diet 4. Diabetes mellitus type II -patient's oral hypoglycemics held. Placed on long acting insulin, Accu-Cheks a.c. and at bedtime and covered with sliding scale insulin 5. Class III obesity with BMI of 50.8 ? Complicating care weight loss advised 6. Hypertension - Blood pressure controlled, home medications continued with dose adjustment as needed 7. Dyslipidemia -Patient is on statin therapy, continued at home dose 8. Coronary artery disease ? With previous CABG and subsequent PCI patient is on guideline directed medical therapy 9. Paroxysmal A-fib ? Rate controlled not on systemic anticoagulation due to risk for falls 10. BPH ? Patient is on tamsulosin did continue 11. 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 Bronchodilator treatment as needed 12. DVT prophylaxis ? SC heparin Time spent in the patient's overall evaluation,decision-making process, review of diagnostic data, adjustment of management, discussion with other providers, nursing nursing and ancillary staff involved in patient's care documentation, 50 Minutes Charges/Coding Visit Charges Inpatient E&M: 75340 Subs Hosp L3
[2023-06-24] MEDS: LINAGLIPTIN 5 MG TABLET PO (10:24)
--- NOTE | 2023-06-24 10:41 | WOUNDNOTE ---
wound photo: right lower leg
--- NOTE | 2023-06-24 10:41 | WOUNDNOTE ---
skin photo: left lower leg
--- NOTE | 2023-06-24 10:42 | WOUNDNOTE ---
wound photo: right great toe
[2023-06-24] MEDS: Glimepiride 4 MG Tablet PO (11:49)
[2023-06-24] MEDS: Insulin Lispro 100 UNIT/ML INSULN.PEN SC ×2 (11:53→17:15)
--- NOTE | 2023-06-24 12:00 | CASEMGMT ---
SW was informed that patient will need to go to a fpc as [facility] is not able to assist with wound care. SW met with patient. Introduced self and role at [facility]. Patient confirmed he will need to go to a fpc before going back to [facility]. SW provided patient with a list of facilities. SW asked patient to pick at least 3 facilities he would be okay with and SW will check with those facilities. BREEZY told patient SW will check back in a little bit. Plan: SNF pending patient choices, accepting facility, and insurance approval. Stacy Haddad MUSIC MIXER SHARAN
[2023-06-24 12:08] LABS: Bedside Glucose 169 mg/dL (74-106)
--- NOTE | 2023-06-24 12:13 | CASEMGMT ---
Discharge Planning A list of?SNF providers including quality and resource use data and consistent with the patient's preferred geographic region, medical needs, and insurance network was created in [employer] Guide.? This list was provided to the SW. Felicia Gutierres Discharge Planning Asst.
[2023-06-24 15:00] VITALS: BP 137/57; PULSE 80; RESP 15; TEMP 36.9; O2SAT 92
[2023-06-24] MEDS: Mag Hydrox/Al Hydrox/Simeth 30 ML UDC PO (15:57)
--- NOTE | 2023-06-24 16:47 | CASEMGMT ---
Met with patient to complete VILLA form. VILLA form explained to patient who voiced understanding and signed form. Original form placed in pt?s chart and copy provided to?patient. Felicia Gutierres, Discharge Planning Asst
[2023-06-24 17:03] LABS: Bedside Glucose 159 mg/dL (74-106)
[2023-06-24 22:25] VITALS: BP 131/56; PULSE 63; RESP 18; TEMP 36.8; O2SAT 93
[2023-06-24] MEDS: levoFLOXacin 750 MG Tablet PO (22:33)
[2023-06-24] MEDS: Atorvastatin Calcium 80 MG Tablet PO (22:33)
[2023-06-24] MEDS: Mirtazapine 15 MG Tablet PO (22:34)
[2023-06-24] MEDS: Losartan Potassium 25 MG Tablet PO (22:34)
[2023-06-24] MEDS: Tamsulosin HCl 0.4 MG Capsule PO (22:34)
[2023-06-24 23:21] LABS: Bedside Glucose 146 mg/dL (74-106)
[2023-06-25] MEDS: Benzonatate 100 MG Capsule PO (03:17)
[2023-06-25 05:24] VITALS: BP 117/58; PULSE 62; RESP 18; TEMP 36.8; O2SAT 93
[2023-06-25] MEDS: Furosemide 100 MG/10 ML Vial 60 MG IV (05:26)
[2023-06-25 06:52] LABS: Bedside Glucose 92 mg/dL (74-106)
--- NOTE | 2023-06-25 07:27 | PN.HOSP_ITS ---
Reason for Visit Reason for Visit: Diagnoses Lymphedema, not elsewhere classified (06/23/23) Subjective Subjective Patient seen clinical condition continues to improve. Patient is a negative fluid balance Objective Data Objective Data Vital Signs: Vital Signs Temp Pulse Resp BP Pulse Ox O2 Del Method O2 Flow Rate 98.3 F 62 18 117/58 L 93 Nasal Cannula 2 06/25/23 05:24 06/25/23 05:24 06/25/23 05:24 06/25/23 05:24 06/25/23 05:24 06/25/23 05:24 06/25/23 05:24 Oxygen Flow Rate (L/min) 2 Oxygen Delivery Method Nasal Cannula Weight: 169.9 kg Body Mass Index (BMI) 50.8 Intake & Output: Intake and Output for Last 24 Hours 06/23/23 06/24/23 06/25/23 23:59 23:59 23:59 Intake Total 652 / 652 Output Total 950 / 950 3700 / 3700 850 / 850 Balance -298 / -298 -3700 / -3700 -850 / -850 Lab / Micro Data 06/25/23 08:27 06/25/23 08:27 Labs: Laboratory Results - last 24 hr 06/24/23 05:37: Sodium 138, Potassium 3.5, Chloride 103, Carbon Dioxide 27.0, Anion Gap 8, BUN 17, Creatinine 0.84, Estim Creat Clear Calc 75.70, Est GFR (MDRD) Af Amer 112, Est GFR (MDRD) Non-Af 93, BUN/Creatinine Ratio 20.2 H, Glucose 90, Calcium 8.7 06/24/23 11:51: POC Glucose 169 H 06/24/23 16:46: POC Glucose 159 H 06/24/23 22:30: POC Glucose 146 H 06/25/23 06:33: POC Glucose 92 Physical Exam Narrative GENERAL: cooperative HEENT: Atraumatic; normocephalic EYES; Anicteric, Normal Conjunctiva NECK; supple, normal thyroid, RESPIRATORY: Diminished to auscultation CARDIOVASCULAR: Regular S1 S2, GI: soft, normoactive bowel sounds, : No Renal angle tenderness; EXTREMITIES: Bilateral lymphedema MUSCULOSKELETAL: no muscle wasting NEURO: Awake; no lateralizing signs. SKIN: No Rash PSYCH; Flat affect Assessment & Plan Assessment/Plan (1) Lymphedema: PLAN: Plan Patient is an 82-year-old gentleman sent to the ED by the primary care physician on account of wound to his right lower extremity 1. Superficial wound to the right lower leg ? Cultures came back positive for Acinetobacter as well as ESBL both sensitive to flocculence patient started on Levaquin 2. Bilateral lower extremity lymphedema ? Apparently resistant to outpatient treatment admitted for inpatient treatment with IV diuretics consult placed wound care nurse 3. Acute on chronic congestive heart failure with preserved ejection fraction (present on admission) ? Echo from 11/16/2022 demonstrated EF of 60%. Managed with diuretics, strict input and output, daily weight, low-sodium diet 4. Diabetes mellitus type II -patient's oral hypoglycemics held. Placed on long acting insulin, Accu-Cheks a.c. and at bedtime and covered with sliding scale insulin 5. Class III obesity with BMI of 50.8 ? Complicating care weight loss advised 6. Hypertension - Blood pressure controlled, home medications continued with dose adjustment as needed 7. Dyslipidemia -Patient is on statin therapy, continued at home dose 8. Coronary artery disease ? With previous CABG and subsequent PCI patient is on guideline directed medical therapy 9. Paroxysmal A-fib ? Rate controlled not on systemic anticoagulation due to risk for falls 10. BPH ? Patient is on tamsulosin did continue 11. 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 Bronchodilator treatment as needed 12. DVT prophylaxis ? SC heparin 13. Physical deconditioning - Requested for PT OT eval and home health care social worker to assist with discharge planning Time spent in the patient's overall evaluation,decision-making process, review of diagnostic data, adjustment of management, discussion with other providers, nursing nursing and ancillary staff involved in patient's care documentation, 40 Minutes Charges/Coding Visit Charges Inpatient E&M: 91872 Subs Hosp L2
[2023-06-25 08:44] LABS: Hematocrit 39.2 % (40-54); Hemoglobin 12.5 g/dL (13.0-16.5); Mean Corp Hgb Conc 31.9 g/dL (32-36); Mean Corpuscular Volume 87.9 fL (80-94); Mean Platelet Vol. 9.4 fl (6.2-12.0); Platelet Count 267 K/mm3 (150-450); RBC Distribution Width CV 17.9 % (11.6-14.6); RBC Distribution Width SD 57.1 fl (35.1-43.9); Red Blood Count 4.46 M/mm3 (4.6-6.2); White Blood Count 8.9 K/mm3 (4.4-11.0)
[2023-06-25 08:55] VITALS: BP 120/59; PULSE 60; RESP 15; TEMP 36.8; O2SAT 92
[2023-06-25] MEDS: guaiFENesin 600 MG Tablet PO (09:00)
[2023-06-25] MEDS: Heparin Injection (Vial) 5,000 UNIT/ML VIAL 5000 UNIT SC (09:00)
[2023-06-25 09:01] VITALS: PULSE 60
[2023-06-25] MEDS: Spironolactone 50 MG Tablet PO (09:01)
[2023-06-25] MEDS: Glimepiride 4 MG Tablet PO (09:01)
[2023-06-25] MEDS: metFORMIN HCl 1,000 MG Tablet 1000 MG PO (09:01)
[2023-06-25] MEDS: Metoprolol(XL)Succ 25 MG Tablet PO (09:01)
[2023-06-25] MEDS: Tolterodine Tartrate 4 MG CAP.SA PO (09:01)
[2023-06-25] MEDS: LINAGLIPTIN 5 MG TABLET PO (09:01)
[2023-06-25] MEDS: Clopidogrel Bisulfate 75 MG Tablet PO (09:01)
[2023-06-25] MEDS: Aspirin 81 MG TAB.CHEW PO (09:02)
[2023-06-25] MEDS: Isosorbide Mononitrate 30 MG Tablet PO (09:02)
[2023-06-25] MEDS: Potassium Chloride Oral Tablet 20 MEQ PO (09:02)
[2023-06-25] MEDS: Pantoprazole Sodium 40 MG Tablet PO (09:02)
[2023-06-25 09:03] LABS: ALB/GLOB Ratio 0.6 RATIO (0.9-2.4); AST(SGOT) 58 U/L (15-37); Alanine Aminotransfer ALT/SGPT 31 U/L (16-61); Albumin, Serum 2.9 g/dL (3.2-5.0); Alkaline Phosphatase 103 U/L (45-117); Anion Gap 7 (5-15); BUN 22 mg/dL (7-18); BUN/Creat Ratio 19.8 RATIO (10-20); Chloride 100 mmol/L (98-107); Creatinine, Serum 1.11 mg/dL (0.70-1.30); EST Glomerular Filtration Rate 67 mL/min (>60); Est Glom Filt Rate - Afr Amer 82 mL/min (>60); Estimated Creatinine Clearance 57.29 ml/min; Globulin 4.8 g/dL (2.2-4.2); Glucose 99 mg/dL (74-106); Magnesium 1.9 mg/dL (1.6-2.6); Potassium 3.5 mmol/L (3.5-5.1); Protein, Total 7.7 g/dL (6.4-8.2); Sodium Level 137 mmol/L (136-145)
--- NOTE | 2023-06-25 09:28 | CASEMGMT ---
Patient was accepted by [facility]. BREEZY asked that they start the pre-cert. Stacy TSANG
--- NOTE | 2023-06-25 10:32 | CASEMGMT ---
BREEZY notified patient that [facility] is able to accept him. BREEZY explained once his insurance approves him we can let him know and set up transport. Plan: d/c to [facility] pending insurance authorization. Stacy TSANG
[2023-06-25] MEDS: Insulin Lispro 100 UNIT/ML INSULN.PEN SC (11:42)
[2023-06-25 12:03] LABS: Bedside Glucose 211 mg/dL (74-106)
--- NOTE | 2023-06-25 13:13 | CASEMGMT ---
BREEZY called [facility] and updated them that patient will be going to [facility] at d/c for rehab. Stacy Haddad CHEMICAL PLANT MANAGER SHARAN
--- NOTE | 2023-06-25 14:16 | PCM.TXEXTCAR ---
Diet Diet Order/Speech Therapy: 06/23/23 18:32 Diet: Consistent Carb - Calorie Controlled Food consistency:: Regular Liquid Consistency:: Regular/Thin Dietary Modifications:: Cardiac / Heart Healthy How many daily calories?: 2000 calorie Wound(s) RIGHT LEG: Wound Type: Stasis Ulcer Dressing Change: Adaptic tip of right great toe: Wound Type: dry blood blister Therapies Physical Therapy: Eval and Treat Occupational Therapy: Eval and Treat Problem/Diagnosis (1) Lymphedema: Status: Acute Code(s): I89.0 - Lymphedema, not elsewhere classified Plan Patient is an 82-year-old gentleman sent to the ED by the primary care physician on account of wound to his right lower extremity 1. Superficial wound to the right lower leg ? Cultures came back positive for Acinetobacter as well as ESBL both sensitive to flocculence patient started on Levaquin 2. Bilateral lower extremity lymphedema ? Apparently resistant to outpatient treatment admitted for inpatient treatment with IV diuretics consult placed wound care nurse 3. Acute on chronic congestive heart failure with preserved ejection fraction (present on admission) ? Echo from 11/16/2022 demonstrated EF of 60%. Managed with diuretics, strict input and output, daily weight, low-sodium diet 4. Diabetes mellitus type II -patient's oral hypoglycemics held. Placed on long acting insulin, Accu-Cheks a.c. and at bedtime and covered with sliding scale insulin 5. Class III obesity with BMI of 50.8 ? Complicating care weight loss advised 6. Hypertension - Blood pressure controlled, home medications continued with dose adjustment as needed 7. Dyslipidemia -Patient is on statin therapy, continued at home dose 8. Coronary artery disease ? With previous CABG and subsequent PCI patient is on guideline directed medical therapy 9. Paroxysmal A-fib ? Rate controlled not on systemic anticoagulation due to risk for falls 10. BPH ? Patient is on tamsulosin did continue 11. 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 Bronchodilator treatment as needed 12. DVT prophylaxis ? SC heparin 13. Physical deconditioning - Requested for PT OT eval and social service assistant to assist with discharge planning Time spent in the patient's overall evaluation,decision-making process, review of diagnostic data, adjustment of management, discussion with other providers, nursing nursing and ancillary staff involved in patient's care documentation, 40 Minutes Allergies/Procedures Done in Hospital Allergies lisinopril Allergy (Verified 06/23/23 14:54) Unknown paroxetine [From Paxil] Allergy (Verified 06/23/23 14:54) NEEDS FOLLOW-UP sertraline Allergy (Verified 06/23/23 14:54) Unknown enoxaparin [From Lovenox] Adverse Reaction (Verified 06/23/23 14:54) PT UNSURE OF REACTION states he had at another facility and he had complications. pt requests we consult the other hospital for records to confirm Type of Care/Length of Stay Estimated LOS: Convalescent Care Less Than 30 days Type of Care Needed: Skilled Rehab Potential: Good Prognosis: Good Additional Orders/Day of Discharge Day of Discharge: 06/25/23 Dietary and Speech Recommendations Dietitian Recommendations/Changes: RD will change diet to 2000CCD/Cardiac diet to manage medical conditions. Discharge Plan Admission Admit Date/Time: 06/23/23 16:34 Attending Provider: Gustavo Ordonez Primary Care Provider: Bertrand Warner Consulting Providers: Charanjit Pope Instructions Additional Instructions / Restrictions: <del>Increase</del> <del>your</del> <del>spironolactone</del> <del>to</del> <del>50</del> <del>mg/day</del> <del>Discontinue</del> <del>your</del> <del>Augmentin</del> <del>as</del> <del>we</del> <del>will</del> <del>be</del> <del>starting</del> <del>Omnicef</del> <del>instead.</del> Discharge Orders/Prescriptions Prescriptions: New benzonatate 100 mg Capsule 100 mg PO 4X/DAY PRN PRN (Reason: COUGH) Qty: 0 0RF insulin lispro [Humalog KwikPen Insulin] 100 unit/mL Insulin Pen See Protocol subcut ACHS Qty: 0 0RF Protocol: 4. Sliding Scale Insulin High-Med Dosing Condition: 150-199 mg/dl = 2 units Condition: 200-259 mg/dl = 4 units Condition: 260-324 mg/dl = 6 units Condition: 325-374 mg/dl = 8 units Condition: 375-409 mg/dl = 10 units Condition: 410-449 mg/dl = 11 units Condition: Greater than 449 call physician Protocol Text: - Use for Total Daily Dose of Insulin 56-80 units - Patient who are insulin resistant or septic HIGH MEDIUM DOSING ALGORITHM acetaminophen 325 mg Tablet 650 mg PO Q6H PRN PRN (Reason: Pain 1-10 Or Fever>100.7) Qty: 0 0RF guaifenesin [Mucinex] 600 mg Tablet Extended Release 12hr 600 mg PO BID Qty: 0 0RF levofloxacin 750 mg Tablet 750 mg PO QHS Qty: 14 0RF spironolactone 50 mg Tablet 50 mg PO DAILY Qty: 0 0RF furosemide [Lasix] 80 mg tablet 80 mg PO BID Qty: 60 0RF Continued oxybutynin chloride 15 mg tablet extended release 24hr 15 mg PO DAILY nitroglycerin 0.4 MG tablet 0.4 mg sublingual Q5M PRN (Reason: Chest Pain) Patient Comments: CHEST aspirin 81 MG tablet,chewable 81 mg PO DAILY Patient Comments: HEART HEALTH magnesium oxide 400 MG tablet 400 mg PO DAILY Patient Comments: MAGNESIUM SUPPLEMENT atorvastatin 80 MG tablet 80 mg PO QHS montelukast 10 MG tablet 10 mg PO QHS fluticasone propionate 1 SPRAY spray,suspension 2 spray NASAL DAILY cholecalciferol (vitamin D3) 2,000 UNIT capsule 2,000 unit PO BID tamsulosin 0.4 mg Capsule 0.4 mg PO QHS mirtazapine 15 mg Tablet 15 mg PO QHS glimepiride 4 mg Tablet 4 mg PO BREAKFAST docusate sodium 100 MG capsule 100 mg PO DAILY Trulance 3 mg tablet 3 mg PO DAILY clopidogrel 75 mg Tablet 75 mg PO DAILY Qty: 30 0RF isosorbide mononitrate 30 mg Tablet Extended Release 24 Hr 30 mg PO DAILY Qty: 30 0RF fluticasone furoate-vilanterol [Breo Ellipta] 200-25 mcg/dose blister with device 1 inh INHALATION DAILY losartan 25 mg tablet 25 mg PO QHS Rx Instructions: HOLD IF SYSTOLIC <100 metoprolol succinate 25 mg tablet extended release 24 hr 25 mg PO DAILY Rx Instructions: HOLD hr <55 HOLD SYSTOLIC <95 Januvia 100 mg tablet 100 mg PO DAILY omega-3 fatty acids-vitamin E 1,000 mg Capsule 1 cap PO DAILY furosemide 80 mg tablet 80 mg PO DAILY metformin 1,000 mg tablet 1,000 mg PO BID calcium carbonate-vitamin D3 [Calcium 600 + D(3)] 600 mg-5 mcg (200 unit) tablet 1 tab PO BID pantoprazole 40 mg tablet,delayed release (DR/EC) 40 mg PO BID Discontinued furosemide 40 MG tablet 80 mg PO DAILY spironolactone 25 mg Tablet 25 mg PO DAILY Qty: 30 0RF amoxicillin-pot clavulanate [amoxicillin-pot clavulanate] 875-125 mg tablet 875 mg PO Q12H Qty: 20 0RF Referrals / Follow Up: Bertrand Warner MD [Primary Care Provider] - Within 2 Weeks Disposition Disposition (needs filled in before D/C Order can be placed): Intermediate Facility
--- NOTE | 2023-06-25 14:28 | PCM.DC.SUM ---
Providers Date of Admission: 06/23/23 Date of Discharge: 06/25/23 Primary Care Physician: Dr. Bertrand Warner MD Consultations 06/23/23 18:32 Consult: Onc/Wound/elevator repairer helper Routine Comment: Reason for Consult:: right leg wound Reason For Visit: LYMPHEDEMA, RIGHT LOWER EXTREMITY WOUND Diagnosis Discharge Diagnosis (1) Lymphedema: Status: Acute Code(s): I89.0 - Lymphedema, not elsewhere classified Plan Patient is an 82-year-old gentleman sent to the ED by the primary care physician on account of wound to his right lower extremity 1. Superficial wound to the right lower leg ? Cultures came back positive for Acinetobacter as well as ESBL both sensitive to flocculence patient started on Levaquin 2. Bilateral lower extremity lymphedema ? Apparently resistant to outpatient treatment admitted for inpatient treatment with IV diuretics consult placed wound care nurse 3. Acute on chronic congestive heart failure with preserved ejection fraction (present on admission) ? Echo from 11/16/2022 demonstrated EF of 60%. Managed with diuretics, strict input and output, daily weight, low-sodium diet 4. Diabetes mellitus type II -patient's oral hypoglycemics held. Placed on long acting insulin, Accu-Cheks a.c. and at bedtime and covered with sliding scale insulin 5. Class III obesity with BMI of 50.8 ? Complicating care weight loss advised 6. Hypertension - Blood pressure controlled, home medications continued with dose adjustment as needed 7. Dyslipidemia -Patient is on statin therapy, continued at home dose 8. Coronary artery disease ? With previous CABG and subsequent PCI patient is on guideline directed medical therapy 9. Paroxysmal A-fib ? Rate controlled not on systemic anticoagulation due to risk for falls 10. BPH ? Patient is on tamsulosin did continue 11. 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 Bronchodilator treatment as needed 12. DVT prophylaxis ? SC heparin 13. Physical deconditioning - Requested for PT OT eval and social sciences department chair to assist with discharge planning Time spent in the patient's overall evaluation,decision-making process, review of diagnostic data, adjustment of management, discussion with other providers, nursing nursing and ancillary staff involved in patient's care documentation, 40 Minutes Medications at Discharge Home Medications aspirin 81 mg chewable tablet 81 mg PO DAILY HEALTH MAINTENANCE 06/09/13 nitroglycerin 0.4 mg sublingual tablet 0.4 mg sublingual Q5M PRN Chest Pain 06/09/13 magnesium oxide 400 mg (241.3 mg magnesium) tablet 400 mg PO DAILY MAGNESIUM 10/07/15 atorvastatin 80 mg tablet 80 mg PO QHS HLD 08/05/18 cholecalciferol (vitamin D3) 50 mcg (2,000 unit) capsule 2,000 unit PO BID SUPPLEMENT 11/24/19 fluticasone propionate 50 mcg/actuation nasal spray,suspension 2 spray NASAL DAILY ALLERGIES 11/24/19 montelukast 10 mg tablet 10 mg PO QHS ALLERGIES 11/24/19 glimepiride 4 mg tablet 4 mg PO BREAKFAST DM 01/09/21 mirtazapine 15 mg tablet 15 mg PO QHS mental health 01/09/21 tamsulosin 0.4 mg capsule 0.4 mg PO QHS prostate 01/09/21 docusate sodium 100 mg capsule 100 mg PO DAILY stool softner 07/15/21 plecanatide 3 mg tablet (Trulance) 3 mg PO DAILY chronic constipation 11/14/22 clopidogrel 75 mg tablet 75 mg PO DAILY #30 tabs 11/17/22 fluticasone furoate 200 mcg-vilanterol 25 mcg/dose inhalation powder (Breo Ellipta) 1 inh inhalation DAILY Check with primary doctor 11/17/22 isosorbide mononitrate 30 mg tablet,extended release 24 hr 30 mg PO DAILY #30 tabs 11/17/22 losartan 25 mg tablet 25 mg PO QHS Check with primary doctor 11/17/22 metoprolol succinate 25 mg tablet,extended release 24 hr 25 mg PO DAILY Check with primary doctor 11/17/22 sitagliptin phosphate 100 mg tablet (Januvia) 100 mg PO DAILY Check with primary doctor 11/17/22 omega-3 fatty acids-vitamin E 1,000 mg capsule 1 cap PO DAILY 12/03/22 oxybutynin chloride 15 mg tablet,extended release 24 hr 15 mg PO DAILY 12/15/22 calcium carbonate 600 mg-vitamin D3 5 mcg (200 unit) tablet (Calcium 600 + D(3)) 1 tab PO BID 06/09/23 pantoprazole 40 mg tablet,delayed release 40 mg PO BID 06/09/23 furosemide 80 mg tablet 80 mg PO DAILY 06/20/23 metformin 1,000 mg tablet 1,000 mg PO BID 06/20/23 acetaminophen 325 mg tablet 650 mg (2 x 325 mg) PO Q6H PRN PRN Pain 1-10 Or Fever>100.7 #0 tabs 06/25/23 benzonatate 100 mg capsule 100 mg PO 4X/DAY PRN PRN COUGH #0 caps 06/25/23 furosemide 80 mg tablet (Lasix) 80 mg PO BID #60 tabs 06/25/23 guaifenesin 600 mg tablet, extended release 12 hr (Mucinex) 600 mg PO BID #0 tabs 06/25/23 insulin lispro 100 unit/mL subcutaneous pen (Humalog KwikPen (U-100) Insulin) See Protocol subcut ACHS #0 mL 06/25/23 levofloxacin 750 mg tablet 750 mg PO QHS #14 tabs 06/25/23 spironolactone 50 mg tablet 50 mg PO DAILY #0 tabs 06/25/23 Hospital Course Summary of Care Provided Minutes Spent on Discharge: 40 Physical Exam Narrative GENERAL: cooperative HEENT: Atraumatic; normocephalic EYES; Anicteric, Normal Conjunctiva NECK; supple, normal thyroid, RESPIRATORY: Diminished to auscultation CARDIOVASCULAR: Regular S1 S2, GI: soft, normoactive bowel sounds, : No Renal angle tenderness; EXTREMITIES: Bilateral lymphedema MUSCULOSKELETAL: no muscle wasting NEURO: Awake; no lateralizing signs. SKIN: No Rash PSYCH; Flat affect Weight / BMI Weight Weight: 169.9 kg Body Mass Index (BMI) 50.8 ABG / Lab / Microbiology Data 06/25/23 08:27 06/25/23 08:27 Laboratory: Laboratory Results - last 24 hr 06/24/23 16:46: POC Glucose 159 H 06/24/23 22:30: POC Glucose 146 H 06/25/23 06:33: POC Glucose 92 06/25/23 08:27: WBC 8.9, RBC 4.46 L, Hgb 12.5 L, Hct 39.2 L, MCV 87.9, MCH 28.0, MCHC 31.9 L, RDW Std Deviation 57.1 H, RDW Coeff of Yue 17.9 H, Plt Count 267, MPV 9.4, Sodium 137, Potassium 3.5, Chloride 100, Carbon Dioxide 30.0, Anion Gap 7, BUN 22 H, Creatinine 1.11, Estim Creat Clear Calc 57.29, Est GFR (MDRD) Af Amer 82, Est GFR (MDRD) Non-Af 67, BUN/Creatinine Ratio 19.8, Glucose 99, Calcium 9.0, Magnesium 1.9, Total Bilirubin 0.90, AST 58 H, ALT 31, Alkaline Phosphatase 103, Total Protein 7.7, Albumin 2.9 L, Globulin 4.8 H, Albumin/Globulin Ratio 0.6 L 06/25/23 11:41: POC Glucose 211 H D/C Instructions Discharge Diet: 8 Cup Fluid Restriction and 2000 mg Sodium Diet Discharge Activity: Return to Normal Activity Call your doctor if you observe: Fever of 101 or Higher, Shortness of breath, Fainting spells and Chest pain Meaningful Use Info Meaningful Use Diagnoses (Choose all that apply): CHF CHF CIELO/ARB ordered at discharge?: No Reason CIELO/ARB not ordered?: Not indicated Documented LVEF (%): 65 Discharge Plan Admission Admit Date/Time: 06/23/23 16:34 Attending Provider: Gustavo Ordonez Primary Care Provider: Bertrand Warner Consulting Providers: Charanjit Pope Instructions Additional Instructions / Restrictions: <del>Increase</del> <del>your</del> <del>spironolactone</del> <del>to</del> <del>50</del> <del>mg/day</del> <del>Discontinue</del> <del>your</del> <del>Augmentin</del> <del>as</del> <del>we</del> <del>will</del> <del>be</del> <del>starting</del> <del>Omnicef</del> <del>instead.</del> Discharge Orders/Prescriptions Prescriptions: New benzonatate 100 mg Capsule 100 mg PO 4X/DAY PRN PRN (Reason: COUGH) Qty: 0 0RF insulin lispro [Humalog KwikPen Insulin] 100 unit/mL Insulin Pen See Protocol subcut ACHS Qty: 0 0RF Protocol: 4. Sliding Scale Insulin High-Med Dosing Condition: 150-199 mg/dl = 2 units Condition: 200-259 mg/dl = 4 units Condition: 260-324 mg/dl = 6 units Condition: 325-374 mg/dl = 8 units Condition: 375-409 mg/dl = 10 units Condition: 410-449 mg/dl = 11 units Condition: Greater than 449 call physician Protocol Text: - Use for Total Daily Dose of Insulin 56-80 units - Patient who are insulin resistant or septic HIGH MEDIUM DOSING ALGORITHM acetaminophen 325 mg Tablet 650 mg PO Q6H PRN PRN (Reason: Pain 1-10 Or Fever>100.7) Qty: 0 0RF guaifenesin [Mucinex] 600 mg Tablet Extended Release 12hr 600 mg PO BID Qty: 0 0RF levofloxacin 750 mg Tablet 750 mg PO QHS Qty: 14 0RF spironolactone 50 mg Tablet 50 mg PO DAILY Qty: 0 0RF furosemide [Lasix] 80 mg tablet 80 mg PO BID Qty: 60 0RF Continued oxybutynin chloride 15 mg tablet extended release 24hr 15 mg PO DAILY nitroglycerin 0.4 MG tablet 0.4 mg sublingual Q5M PRN (Reason: Chest Pain) Patient Comments: CHEST aspirin 81 MG tablet,chewable 81 mg PO DAILY Patient Comments: HEART HEALTH magnesium oxide 400 MG tablet 400 mg PO DAILY Patient Comments: MAGNESIUM SUPPLEMENT atorvastatin 80 MG tablet 80 mg PO QHS montelukast 10 MG tablet 10 mg PO QHS fluticasone propionate 1 SPRAY spray,suspension 2 spray NASAL DAILY cholecalciferol (vitamin D3) 2,000 UNIT capsule 2,000 unit PO BID tamsulosin 0.4 mg Capsule 0.4 mg PO QHS mirtazapine 15 mg Tablet 15 mg PO QHS glimepiride 4 mg Tablet 4 mg PO BREAKFAST docusate sodium 100 MG capsule 100 mg PO DAILY Trulance 3 mg tablet 3 mg PO DAILY clopidogrel 75 mg Tablet 75 mg PO DAILY Qty: 30 0RF isosorbide mononitrate 30 mg Tablet Extended Release 24 Hr 30 mg PO DAILY Qty: 30 0RF fluticasone furoate-vilanterol [Breo Ellipta] 200-25 mcg/dose blister with device 1 inh INHALATION DAILY losartan 25 mg tablet 25 mg PO QHS Rx Instructions: HOLD IF SYSTOLIC <100 metoprolol succinate 25 mg tablet extended release 24 hr 25 mg PO DAILY Rx Instructions: HOLD hr <55 HOLD SYSTOLIC <95 Januvia 100 mg tablet 100 mg PO DAILY omega-3 fatty acids-vitamin E 1,000 mg Capsule 1 cap PO DAILY furosemide 80 mg tablet 80 mg PO DAILY metformin 1,000 mg tablet 1,000 mg PO BID calcium carbonate-vitamin D3 [Calcium 600 + D(3)] 600 mg-5 mcg (200 unit) tablet 1 tab PO BID pantoprazole 40 mg tablet,delayed release (DR/EC) 40 mg PO BID Discontinued furosemide 40 MG tablet 80 mg PO DAILY spironolactone 25 mg Tablet 25 mg PO DAILY Qty: 30 0RF amoxicillin-pot clavulanate [amoxicillin-pot clavulanate] 875-125 mg tablet 875 mg PO Q12H Qty: 20 0RF Referrals / Follow Up: Bertrand Warner MD [Primary Care Provider] - Within 2 Weeks Disposition Disposition (needs filled in before D/C Order can be placed): [facility] Charges/Coding Visit Charges Inpatient E&M: 16592 Disch Hosp >30min
--- NOTE | 2023-06-25 14:53 | CASEMGMT ---
Discharge Planning Discharge orders, signed med list, and transport time sent to [facility] via [facility]. [facility] will transport patient by wheelchair at 3:45p. Nursing, SW, patient, and his brother updated. Felicia Gutierres, Discharge Planning Asst.
[2023-06-25 15:00] VITALS: BP 133/55; PULSE 60; RESP 15; TEMP 37.1; O2SAT 98
== END 2023-06-25 14:27 | disposition skilled nursing facility (03) ==
LOC: ED 17:01 → PCU 17:52
PROVIDERS: Admitting Provider Internal Medicine; Emergency Provider Emergency Medicine; PCP Family Medicine; Visit Provider Internal Medicine
DX: S81.801A Unspecified open wound, right lower leg, initial encounter (principal); J44.9 Chronic obstructive pulmonary disease, unspecified; I11.0 Hypertensive heart disease with heart failure; I50.33 Acute on chronic diastolic (congestive) heart failure; E11.01 Type 2 diabetes mellitus with hyperosmolarity with coma; I48.0 Paroxysmal atrial fibrillation; Z68.43 Body mass index [BMI] 50.0-59.9, adult; E66.01 Morbid (severe) obesity due to excess calories; I89.0 Lymphedema, not elsewhere classified; E78.5 Hyperlipidemia, unspecified; L03.115 Cellulitis of right lower limb; Z79.84 Long term (current) use of oral hypoglycemic drugs; Z79.02 Long term (current) use of antithrombotics/antiplatelets; I25.10 Atherosclerotic heart disease of native coronary artery without angina pectoris; B96.1 Klebsiella pneumoniae [K. pneumoniae] as the cause of diseases classified elsewhere; Z79.82 Long term (current) use of aspirin; Z79.51 Long term (current) use of inhaled steroids; Z79.899 Other long term (current) drug therapy; N40.0 Benign prostatic hyperplasia without lower urinary tract symptoms; K21.9 Gastro-esophageal reflux disease without esophagitis; G47.33 Obstructive sleep apnea (adult) (pediatric); Z95.0 Presence of cardiac pacemaker; Z16.12 Extended spectrum beta lactamase (ESBL) resistance
CPT/HCPCS: 36415; 73590; 80048; 80053; 82962; 83605; 83735; 85025; 85027; 96365; 96366; 96367; 96372; 96375; 96376; 97162; 97166; 97535; 99221; 99285; J7040; G0378; J0295; J1940

== ENCOUNTER 2023-12-07 09:49 | Inpatient (IN) | payer MEDICARE, MEDICAID, SELFPAY ==
[2023-12-07] VITALS (11 sets, daily range): BP systolic 123–146; BP diastolic 63–78; PULSE 60–78; RESP 14–24; TEMP 36.4–36.9; O2SAT 87–99; BMI 50.5; BMI 50.1
--- NOTE | 2023-12-07 10:18 | EKG12_ITS ---
Test Reason : SOB Blood Pressure : / mmHG Vent. Rate : 060 BPM Atrial Rate : 065 BPM P-R Int : 000 ms QRS Dur : 160 ms QT Int : 474 ms P-R-T Axes : 000 -48 100 degrees QTc Int : 474 ms Ventricular-paced rhythm Abnormal ECG Confirmed by SHAR SANCHEZ MD ([id number]), editor house organ MAGGIE LONG ([id number]) on 12/08/2023 9:14:41 AM Referred By: SIDDHARTHA/RONNY Confirmed By:SHAR SANCHEZ MD
--- NOTE | 2023-12-07 10:19 | ED.VIS.DYS ---
HPI History of Present Illness Chief Complaint: Shortness of Breath Informant: patient, EMS and SNF Narrative Narrative: 83-year-old male presenting to the emergency room with dyspnea. Patient reportedly developed a cough and some intermittent shortness of breath over the past several days. He notes a white sputum production occasionally. Reportedly had a chest x-ray on 05 December that demonstrated pulmonary congestion and bilateral small effusions. Patient notes swelling of his legs particularly the left. He has chronic lymphedema and wounds. He notes a history of CHF as a coronary artery bypass about 20 years ago. He has a permanent cardiac pacemaker. He denies blood thinners but he is on Plavix. He also takes a baby aspirin a day. He takes Lasix 50 mg once a day according to the MAR that accompanies him. Patient denies any fevers. He has been able to lay down at night. Typically wears BiPAP at night and does not wear oxygen during the day. [facility] Medical History Asthma Atherosclerosis of coronary artery of [place] heart without angina pectoris Atrial fibrillation Benign essential HTN BiPAP (biphasic positive airway pressure) dependence Cancer Cardiology follow-up encounter Chest pain CHF (congestive heart failure) Cholecystitis Chronic venous insufficiency Complete heart block Congestive heart failure (CHF) Constipation COPD (chronic obstructive pulmonary disease) Diabetes Diverticulosis DM2 (diabetes mellitus, type 2) Dysphagia Edema of both legs Esophageal stricture Fall GERD (gastroesophageal reflux disease) HLD (hyperlipidemia) Hyperlipemia Hypertension Ileus following gastrointestinal surgery Junctional escape rhythm Mobitz type 1 second degree atrioventricular block Morbid obesity Non-smoker Obstructive sleep apnea Pacemaker Pancreatic abnormality Paroxysmal atrial fibrillation Prostate cancer Shortness of breath on exertion Swelling of lower extremity Symptomatic bradycardia Thyroid disease Ulcer of left lower extremity with fat layer exposed Ulcer of right lower extremity with fat layer exposed Uses wheelchair Venous stasis dermatitis of both lower extremities Wears glasses Home Medications aspirin 81 mg chewable tablet 81 mg PO DAILY HEALTH MAINTENANCE 06/09/13 [History Last Taken 06/20/23] nitroglycerin 0.4 mg sublingual tablet 0.4 mg sublingual Q5M PRN Chest Pain 06/09/13 [History Last Taken 10/17/16 09:00] magnesium oxide 400 mg (241.3 mg magnesium) tablet 400 mg PO DAILY MAGNESIUM 10/07/15 [History Last Taken 01/09/21] atorvastatin 80 mg tablet 80 mg PO QHS HLD 12/14/18 [History Last Taken 06/19/23] cholecalciferol (vitamin D3) 50 mcg (2,000 unit) capsule 2,000 unit PO BID SUPPLEMENT 11/24/19 [History Last Taken 06/20/23] fluticasone propionate 50 mcg/actuation nasal spray,suspension 2 spray NASAL DAILY ALLERGIES 11/24/19 [History Last Taken 01/09/21] montelukast 10 mg tablet 10 mg PO QHS ALLERGIES 11/24/19 [History Last Taken 06/19/23] glimepiride 4 mg tablet 4 mg PO BREAKFAST DM 01/09/21 [History Last Taken 06/20/23] mirtazapine 15 mg tablet 15 mg PO QHS mental health 01/09/21 [History Last Taken 06/19/23] tamsulosin 0.4 mg capsule 0.4 mg PO QHS prostate 01/09/21 [History Last Taken 06/19/23] docusate sodium 100 mg capsule 100 mg PO DAILY stool softner 07/15/21 [History Last Taken 06/20/23] clopidogrel 75 mg tablet 75 mg PO DAILY #30 tabs 11/17/22 [Rx Last Taken 06/20/23] fluticasone furoate 200 mcg-vilanterol 25 mcg/dose inhalation powder (Breo Ellipta) 1 inh inhalation DAILY Check with primary doctor 11/17/22 [History Last Taken 06/19/23] isosorbide mononitrate 30 mg tablet,extended release 24 hr 30 mg PO DAILY #30 tabs 11/17/22 [Rx Last Taken 06/20/23] losartan 25 mg tablet 25 mg PO QHS Check with primary doctor 11/17/22 [History Last Taken 06/19/23] metoprolol succinate 25 mg tablet,extended release 24 hr 25 mg PO DAILY Check with primary doctor 11/17/22 [History Last Taken 06/20/23] sitagliptin phosphate 100 mg tablet (Januvia) 100 mg PO DAILY Check with primary doctor 11/17/22 [History Last Taken 06/20/23] omega-3 fatty acids-vitamin E 1,000 mg capsule 1 cap PO DAILY 12/03/22 [History Last Taken 06/20/23] calcium carbonate 600 mg-vitamin D3 5 mcg (200 unit) tablet (Calcium 600 + D(3)) 1 tab PO BID 06/09/23 [History Last Taken 06/20/23] pantoprazole 40 mg tablet,delayed release 40 mg PO BID 06/09/23 [History Last Taken 06/20/23] metformin 1,000 mg tablet 1,000 mg PO BID 06/20/23 [History Last Taken 06/20/23] acetaminophen 325 mg tablet 650 mg (2 x 325 mg) PO Q6H PRN PRN Pain 1-10 Or Fever>100.7 #0 tabs 06/25/23 [Rx Last Taken Unknown] benzonatate 100 mg capsule 100 mg PO 4X/DAY PRN PRN COUGH #0 caps 06/25/23 [Rx Last Taken Unknown] furosemide 80 mg tablet (Lasix) 80 mg PO BID #60 tabs 06/25/23 [Rx Last Taken Unknown] guaifenesin 600 mg tablet, extended release 12 hr (Mucinex) 600 mg PO BID #0 tabs 06/25/23 [Rx Last Taken Unknown] insulin lispro 100 unit/mL subcutaneous pen (Humalog KwikPen (U-100) Insulin) See Protocol subcut ACHS #0 mL 06/25/23 [Rx Last Taken Unknown] levofloxacin 750 mg tablet 750 mg PO QHS #14 tabs 06/25/23 [Rx Last Taken Unknown] spironolactone 50 mg tablet 50 mg PO DAILY #0 tabs 06/25/23 [Rx Last Taken Unknown] plecanatide 3 mg tablet (Trulance) 3 mg PO DAILY chronic constipation 30 days #30 tabs 06/28/23 [Rx Last Taken Unknown] buspirone 15 mg tablet 15 mg PO BID 10/25/23 [History Last Taken Unknown] Allergy/AdvReac Type Severity Reaction Status Date / Time lisinopril Allergy Unknown Verified 12/07/23 09:50 paroxetine [From Paxil] Allergy NEEDS Verified 12/07/23 09:50 FOLLOW-UP sertraline Allergy Unknown Verified 12/07/23 09:50 enoxaparin [From Lovenox] AdvReac PT UNSURE Verified 12/07/23 09:50 OF REACTION Family History Mother Lung cancer Father CAD (coronary artery disease) Hypertension Heart disease Myocardial infarction Brother Myocardial infarction Hypertension Heart disease CAD (coronary artery disease) Surgical History Coronary angioplasty status H/O coronary artery bypass surgery History of bilateral hip arthroplasty History of cholecystectomy Hx of CABG Presence of cardiac pacemaker S/P CABG x 2 Status post cholecystectomy Social History household members: none housing: assisted living facility number of children: 0 current occupational status: retired Smoking Status: Never smoker alcohol intake: never substance use type: does not use ROS ROS ED Constitutional Constitutional ED: Denies chills, fever(s) or weight loss Eyes Eyes: Denies change in vision or diplopia ENT ENT ED: Denies ear pain, rhinorrhea or sore throat Cardiovascular Cardiovascular: Reports other Details: Lower extremity edema ; Denies chest pain, orthopnea, palpitations or racing heartbeat Respiratory/Chest Respiratory/Chest: Reports cough, dyspnea, dyspnea on exertion and sputum; Denies orthopnea Gastrointestinal Gastrointestinal: Denies abdominal pain, diarrhea, nausea or vomiting Genitourinary Genitourinary ED: Denies dysuria, hematuria or urinary frequency Musculoskeletal Musculoskeletal: Denies arthralgias or myalgias Integumentary Denies abscess or rash Neurologic Neurologic: Denies headache(s) or weakness Psychiatric Psychiatric: Denies anxiety, depression, suicidal ideation or suicidal thoughts Endocrine Endocrinology: Denies polydipsia, polyphagia or polyuria Allergic/Immunologic Allergic/Immunologic ED: Denies mouth swelling, tongue swelling or urticaria EXAM Physical Exam Const Vital Signs: 12/07/23 09:50 12/07/23 09:54 12/07/23 09:59 Temperature 97.9 F 97.8 F Temperature Source Oral Oral Pulse Rate 68 68 Respiratory Rate 18 18 Respiratory Effort Short of Breath Respiratory Depth Normal Respiratory Pattern Normal Blood Pressure 133/74 H 133/74 H Blood Pressure Mean 93 93 Pulse Ox 93 87 Oxygen Delivery Method Room Air Room Air Nasal Cannula Oxygen Flow Rate (L/min) 3 12/07/23 10:30 12/07/23 10:54 12/07/23 12:00 Temperature 97.8 F 97.8 F Temperature Source Temporal Temporal Pulse Rate 78 67 Respiratory Rate 14 18 Respiratory Effort Respiratory Depth Respiratory Pattern Blood Pressure 134/78 H 131/78 H Blood Pressure Mean 96 95 Pulse Ox 94 97 Oxygen Delivery Method Room Air Nasal Cannula Nasal Cannula Oxygen Flow Rate (L/min) 12/07/23 13:00 Temperature 97.8 F Temperature Source Temporal Pulse Rate 76 Respiratory Rate 16 Respiratory Effort Respiratory Depth Respiratory Pattern Blood Pressure 142/78 H Blood Pressure Mean 99 Pulse Ox 97 Oxygen Delivery Method Nasal Cannula Oxygen Flow Rate (L/min) Positive well nourished, well developed and obese General Appearance ED: well developed Nutritional Appearance: obese HEENT Reports normocephalic, head/scalp atraumatic and moist mucous membranes Eyes PERRL and EOMs intact bilaterally Neck no lymphadenopathy, supple and no JVD Resp normal respiratory effort and clear to auscultation bilaterally Resp Narrative: Diminished breath sounds bilaterally. Body habitus certainly limits auscultation. Cardio regular rate, regular rhythm and no murmurs GI normal to inspection, nondistended, normoactive bowel sounds and non-tender Palpation: soft Back/Spine no CVA tenderness and normal ROM Extremity General Extremety ED: Yes edema General Extremity: edema Neuro oriented x3 and CN's II-XII intact bilaterally Sensorium / Orientation: alert Motor Exam: strength 5/5 throughout Psych mental status grossly normal Mood & Affect: Negative for depressed or tearful Skin no rashes or lesions noted Skin Narrative: Patient has weeping of the bilateral lower extremities consistent with lymphedema. There is chronic venous stasis changes. MDM MDM MDM Narrative Medical decision making narrative: My independent interpretation of the chest x-ray is mild pulmonary edema possible mass versus infiltrate left lung field retrocardiac. White count 9.0 with hemoglobin 11.3. Platelet count of 214. INR is 1.4 with a PTT of 30.6. Creatinine 1.34 with a BUN of 33 glucose of 170 normal LFTs troponin 22 BNP 112.9. Patient has been requiring supplemental oxygen even while awake to maintain saturations greater than 90%. Given the chest x-ray findings of lower extremity swelling a CTA of the chest was obtained. This demonstrated no pulmonary embolism. Clinically I favor atelectatic changes versus infiltrate. Patient received 60 mg of Lasix. Given the acute hypoxemic respiratory failure and his swelling plan will be admission for diuresis. History & Record Review Discussion w/independent historian: EMS personnel and Patient Lab Data Attestation: I reviewed the patient's lab results. Labs: Laboratory Results - last 24 hr 12/07/23 10:26 WBC 9.0 RBC 4.10 L Hgb 11.3 L Hct 36.8 L MCV 89.8 MCH 27.6 MCHC 30.7 L RDW Std Deviation 51.8 H RDW Coeff of Yue 15.8 H Plt Count 214 MPV 9.6 Immature Gran % (Auto) 0.600 Neut % (Auto) 70.8 H Lymph % (Auto) 13.2 L Jennings % (Auto) 11.9 H Eos % (Auto) 3.1 Baso % (Auto) 0.4 Absolute Neuts (auto) 6.3 Absolute Lymphs (auto) 1.18 Nucleated RBC % 0 PT 17.0 H INR 1.4 APTT 30.6 Sodium 138 Potassium 4.3 Chloride 104 Carbon Dioxide 33.0 H Anion Gap 1 L BUN 33 H Creatinine 1.34 H Estim Creat Clear Calc 68.70 Est GFR (MDRD) Af Amer 66 Est GFR (MDRD) Non-Af 54 L BUN/Creatinine Ratio 24.6 H Glucose 170 H Calcium 8.9 Total Bilirubin 0.60 Direct Bilirubin 0.25 AST 14 L ALT 21 Alkaline Phosphatase 83 Troponin I High Sens 22 B-Natriuretic Peptide 112.9 H Total Protein 7.3 Albumin 3.0 L Globulin 4.3 H Radiography Diagnostic Testing: Clinical Impression(s) from Imaging Studies Chest X-Ray 12/07/23 10:32 IMPRESSION: Cardiomegaly and findings in keeping with CHF with possible bibasilar atelectasis and/or left basilar infiltrate. Electronically Signed: Christiano Odom MD at 10:58 EDT , Chest CTA 12/07/23 11:19 IMPRESSION: Minimal left pleural effusion with increased markings at the left lung base more prominent in the right base suggestive of either left basilar atelectasis and/or early infiltrate and atelectasis at the right lung base. Electronically Signed: Christiano Odom MD at 12:24 EDT , EKG Initial EKG: Attestation: I personally reviewed and interpreted this EKG as follows: Comments: Ventricular paced rhythm at a rate of 60 bpm Differential Diagnosis Chest pain/SOB: pulmonary embolism, ACS, pneumothorax, pneumonia, aortic dissection and CHF Management Discussion w/another healthcare provider: Hospitalist Discharge Plan Dx/Rx/DC Orders Clinical Impression: Congestive heart failure, Venous stasis dermatitis of both lower extremities, Acute hypoxemic respiratory failure Disposition Disposition: Acute Care Hospital [facility]
--- NOTE | 2023-12-07 10:32 | RAD_ITS ---
STUDY: X-RAY CHEST REASON FOR EXAM: Male, 83 years old. Cough. TECHNIQUE: Single AP portable view of the chest. COMPARISON: Comparison is made with prior study dated June 09, 2023. FINDINGS: EKG electrodes are seen. There is evidence of vascular congestion and mild degree of CHF. Increased markings at both lung bases with areas of confluence worse in the left lower lobe. Superimposed bibasilar atelectasis and/or left infiltrate should be ruled out. Blunting of the left costo phrenic angle. Sternal cerclage wires and vascular clips are present from a prior sternotomy and coronary artery bypass graft procedure (CABG). Moderate cardiomegaly. A right-sided dual-chamber pacemaker is seen. Normal mediastinum and tj. Prominence of the central pulmonary arteries. There is atherosclerotic tortuosity of the aortic arch and descending thoracic aorta. Normal visualized thoracic spine. Normal visualized ribs, clavicles, and shoulders. There is no demonstrated abnormality of the visualized soft tissue structures of the upper abdomen. RAD/Chest 1 View (Portable) IMPRESSION: Cardiomegaly and findings in keeping with CHF with possible bibasilar atelectasis and/or left basilar infiltrate. Electronically Signed: Christiano Odom MD at 10:58 EDT ,
[2023-12-07 10:38] LABS: Absolute Lymphocyte Count 1.18 X10^3/uL (0.83-4.51); Absolute Neutrophil Count 6.3 X10^3/uL (2.0-7.7); Basophil# 0.04 X10^3/uL; Basophil% 0.4 % (0-1); Eosinophil# 0.28 X10^3/uL; Eosinophils% 3.1 % (0-5); Hematocrit 36.8 % (40-54); Hemoglobin 11.3 g/dL (13.0-16.5); Lymphocyte # 1.18 X10^3/ul (0.83-4.51); Lymphocyte % 13.2 % (19-41); Mean Corp Hgb Conc 30.7 g/dL (32-36); Mean Corpuscular Hgb 27.6 pg (27.0-32.0); Mean Corpuscular Volume 89.8 fL (80-94); Mean Platelet Vol. 9.6 fl (6.2-12.0); Monocyte# 1.07 X10^3/uL; Monocyte% 11.9 % (0-10); NRBC Flagged by Analyzer 0 % (0-5); Neutrophil # 6.34 X10^3/uL (2.7-7.7); Neutrophil % 70.8 % (47-70); Platelet Count 214 K/mm3 (150-450); RBC Distribution Width CV 15.8 % (11.6-14.6); RBC Distribution Width SD 51.8 fl (35.1-43.9)
[2023-12-07 10:46] LABS: International Normalized Ratio 1.4
[2023-12-07 10:47] LABS: Partial Thromboplast Time 30.6 Seconds (24.1-36.2)
[2023-12-07 10:57] LABS: AST(SGOT) 14 U/L (15-37); Alanine Aminotransfer ALT/SGPT 21 U/L (16-61); Alkaline Phosphatase 83 U/L (45-117); Anion Gap 1 (5-15); BNP,B-Type NATRIURETIC PEPTIDE 112.9 pg/mL (0-100); BUN 33 mg/dL (7-18); BUN/Creat Ratio 24.6 RATIO (10-20); Bilirubin, Direct 0.25 mg/dL (0.00-0.30); Calcium,Total 8.9 mg/dL (8.5-10.1); Chloride 104 mmol/L (98-107); Creatinine, Serum 1.34 mg/dL (0.70-1.30); EST Glomerular Filtration Rate 54 mL/min (>60); Est Glom Filt Rate - Afr Amer 66 mL/min (>60); Globulin 4.3 g/dL (2.2-4.2); Glucose 170 mg/dL (74-106); Potassium 4.3 mmol/L (3.5-5.1); Protein, Total 7.3 g/dL (6.4-8.2); Sodium Level 138 mmol/L (136-145); Troponin-I HS 22 pg/mL (3.0-78.0)
--- NOTE | 2023-12-07 11:19 | CT_ITS ---
STUDY: CTA CHEST REASON FOR EXAM: Male, 83 years old. Pulmonary embolism. Hypoxia. COPD. RADIATION DOSAGE (If Supplied By Facility): CTDIvol = ( 29.67 ) mGy, DLP = ( 685.49 ) mGy TECHNIQUE: The examination was performed with the intravenous administration of IV 100mL [id number]-[id number]. Post-processing of the angiographic images was performed, with multiplanar reformation and 3D reconstruction. Individualized dose optimization techniques were used for this CT. COMPARISON: Comparison is made with prior chest radiograph done earlier today as well as prior CT of the chest dated January 09, 2021. FINDINGS: Normal enhancement of the main pulmonary artery and right and left pulmonary arteries. Normal enhancement of the bilateral peripheral pulmonary arteries. There is no demonstrated pulmonary embolism. Prominence of the main pulmonary arteries bilaterally. There is atherosclerotic calcification of the aortic arch with tortuosity. There is no demonstrated aortic dissection. There are calcifications of the coronary arteries. A dual-chamber pacemaker is seen. Prior CABG. Cardiomegaly. Normal mediastinum. Normal hilar regions. Normal visualized trachea and bronchi. The lungs are well expanded. Atelectasis and/or early infiltrate in the left lower lobe. Mild increased markings at the right lung base suggestive of atelectasis. Minimal pleural thickening on the left side suggestive of a tiny effusion. Normal chest wall structures. There are degenerative changes of thoracic spine. Increased kyphosis. Normal visualized upper abdomen. CT/CTA Chest W/WO Contrast IMPRESSION: Minimal left pleural effusion with increased markings at the left lung base more prominent in the right base suggestive of either left basilar atelectasis and/or early infiltrate and atelectasis at the right lung base. Electronically Signed: Christiano Odom MD at 12:24 EDT ,
--- NOTE | 2023-12-07 13:52 | PCM.HP.STD ---
HPI - General General Date of Admission: 12/07/23 Date of Service: 12/07/23 Chief Complaint: Dyspnea, worsening lower extremity swelling/edema, orthopnea. HPI Narrative The patient is an 82 y/o M w/ PMHx: CKD stage II per GFR trending, Chronic anemia, Asthma/COPD with allergic rhinitis, EDMOND on BIPAP, CAD s/p PCI x 1 and CABG x 2, GERD, HTN, HLD, HFpEF, Hypothyroidism, Diabetes mellitus type II, BPH, Anxiety and Depression, Hx complete HB s/p pacemaker who presents to the [facility] ED on 12/07/23 with history of worsening dyspnea although noted to be intermittent with mild cough over the last several days with cough noted to be productive occasionally of white sputum with recent 12/06/2023 outpatient chest x-ray which demonstrated mild congestion and small effusions with increasing swelling to his lower extremities left greater than right complicated by underlying chronic lymphedema with chronic stasis wounds with notable orthopnea and difficulty sleeping as he is unable to lay down with no fevers or chills nor any recent ill contacts normal using BiPAP at night but no daily oxygen chronic usage but given ongoing and not improving prompted eventual ED evaluation. Workup in the ED included T97.9, heart rate 68, BP 133/74, respiratory rate 18, initially 93% on room air however desaturated to 87% improving to 97% on 3 L nasal cannula, CBC with WBC 9.0, 11.3, MCV 89.8, platelet 214 without marked shift, unremarkable coags aside PT 17, CMP with Comvax at 33, BUN/creatinine 33/1.34, GFR 66, glucose 170, not marked appearing hepatic profile, troponin 22, BNP 112.9, chest x-ray with cardiomegaly and findings consistent with CHF with possible bibasilar atelectasis and/or left basilar infiltrate, follow-up CTA chest with minimal left pleural effusion with increased markings at the left lung base more prominent in the right base suggestive of either left basilar atelectasis and/or early infiltrate and atelectasis at the right lung base, EKG with no acute evidence of ischemia. In the ED patient ministered Lasix 60 mg IV x 1. [facility] Medical History (Updated 12/07/23 @ 14:[address] Magdalena Grace MD) Asthma Atherosclerosis of coronary artery of [place] heart without angina pectoris Atrial fibrillation Benign essential HTN BiPAP (biphasic positive airway pressure) dependence Cancer Cardiology follow-up encounter Chest pain CHF (congestive heart failure) Cholecystitis Chronic venous insufficiency CKD (chronic kidney disease), stage II Complete heart block Congestive heart failure (CHF) Constipation COPD (chronic obstructive pulmonary disease) Diabetes Diverticulosis DM2 (diabetes mellitus, type 2) Dysphagia Edema of both legs Esophageal stricture Fall GERD (gastroesophageal reflux disease) HLD (hyperlipidemia) Hyperlipemia Hypertension Ileus following gastrointestinal surgery Junctional escape rhythm Mobitz type 1 second degree atrioventricular block Morbid obesity Non-smoker Obstructive sleep apnea Pacemaker Pancreatic abnormality Paroxysmal atrial fibrillation Prostate cancer Shortness of breath on exertion Swelling of lower extremity Symptomatic bradycardia Thyroid disease Ulcer of left lower extremity with fat layer exposed Ulcer of right lower extremity with fat layer exposed Uses wheelchair Venous stasis dermatitis of both lower extremities Wears glasses Home Medications aspirin 81 mg chewable tablet 81 mg PO DAILY HEALTH MAINTENANCE 06/09/13 [History Last Taken 06/20/23] nitroglycerin 0.4 mg sublingual tablet 0.4 mg sublingual Q5M PRN Chest Pain 06/09/13 [History Last Taken 10/17/16 09:00] magnesium oxide 400 mg (241.3 mg magnesium) tablet 400 mg PO DAILY MAGNESIUM 10/07/15 [History Last Taken 01/09/21] atorvastatin 80 mg tablet 80 mg PO QHS HLD 08/05/18 [History Last Taken 06/19/23] cholecalciferol (vitamin D3) 50 mcg (2,000 unit) capsule 2,000 unit PO BID SUPPLEMENT 11/24/19 [History Last Taken 06/20/23] fluticasone propionate 50 mcg/actuation nasal spray,suspension 2 spray NASAL DAILY ALLERGIES 11/24/19 [History Last Taken 01/09/21] montelukast 10 mg tablet 10 mg PO QHS ALLERGIES 11/24/19 [History Last Taken 06/19/23] glimepiride 4 mg tablet 4 mg PO BREAKFAST DM 01/09/21 [History Last Taken 06/20/23] mirtazapine 15 mg tablet 15 mg PO QHS mental health 01/09/21 [History Last Taken 06/19/23] tamsulosin 0.4 mg capsule 0.4 mg PO QHS prostate 01/09/21 [History Last Taken 06/19/23] docusate sodium 100 mg capsule 100 mg PO DAILY stool softner 07/15/21 [History Last Taken 06/20/23] clopidogrel 75 mg tablet 75 mg PO DAILY #30 tabs 11/17/22 [Rx Last Taken 06/20/23] fluticasone furoate 200 mcg-vilanterol 25 mcg/dose inhalation powder (Breo Ellipta) 1 inh inhalation DAILY Check with primary doctor 11/17/22 [History Last Taken 06/19/23] isosorbide mononitrate 30 mg tablet,extended release 24 hr 30 mg PO DAILY #30 tabs 11/17/22 [Rx Last Taken 06/20/23] losartan 25 mg tablet 25 mg PO QHS Check with primary doctor 11/17/22 [History Last Taken 06/19/23] metoprolol succinate 25 mg tablet,extended release 24 hr 25 mg PO DAILY Check with primary doctor 11/17/22 [History Last Taken 06/20/23] sitagliptin phosphate 100 mg tablet (Januvia) 100 mg PO DAILY Check with primary doctor 11/17/22 [History Last Taken 06/20/23] omega-3 fatty acids-vitamin E 1,000 mg capsule 1 cap PO DAILY 12/03/22 [History Last Taken 06/20/23] calcium carbonate 600 mg-vitamin D3 5 mcg (200 unit) tablet (Calcium 600 + D(3)) 1 tab PO BID 06/09/23 [History Last Taken 06/20/23] pantoprazole 40 mg tablet,delayed release 40 mg PO BID 06/09/23 [History Last Taken 06/20/23] metformin 1,000 mg tablet 1,000 mg PO BID 06/20/23 [History Last Taken 06/20/23] acetaminophen 325 mg tablet 650 mg (2 x 325 mg) PO Q6H PRN PRN Pain 1-10 Or Fever>100.7 #0 tabs 06/25/23 [Rx Last Taken Unknown] benzonatate 100 mg capsule 100 mg PO 4X/DAY PRN PRN COUGH #0 caps 06/25/23 [Rx Last Taken Unknown] furosemide 80 mg tablet (Lasix) 80 mg PO BID #60 tabs 06/25/23 [Rx Last Taken Unknown] guaifenesin 600 mg tablet, extended release 12 hr (Mucinex) 600 mg PO BID #0 tabs 06/25/23 [Rx Last Taken Unknown] insulin lispro 100 unit/mL subcutaneous pen (Humalog KwikPen (U-100) Insulin) See Protocol subcut ACHS #0 mL 06/25/23 [Rx Last Taken Unknown] levofloxacin 750 mg tablet 750 mg PO QHS #14 tabs 06/25/23 [Rx Last Taken Unknown] spironolactone 50 mg tablet 50 mg PO DAILY #0 tabs 06/25/23 [Rx Last Taken Unknown] plecanatide 3 mg tablet (Trulance) 3 mg PO DAILY chronic constipation 30 days #30 tabs 06/28/23 [Rx Last Taken Unknown] buspirone 15 mg tablet 15 mg PO BID 10/25/23 [History Last Taken Unknown] Allergy/AdvReac Type Severity Reaction Status Date / Time lisinopril Allergy Unknown Verified 12/07/23 09:50 paroxetine [From Paxil] Allergy NEEDS Verified 12/07/23 09:50 FOLLOW-UP sertraline Allergy Unknown Verified 12/07/23 09:50 enoxaparin [From Lovenox] AdvReac PT UNSURE Verified 12/07/23 09:50 OF REACTION Family History Mother Lung cancer Father CAD (coronary artery disease) Hypertension Heart disease Myocardial infarction Brother Myocardial infarction Hypertension Heart disease CAD (coronary artery disease) Surgical History Coronary angioplasty status H/O coronary artery bypass surgery History of bilateral hip arthroplasty History of cholecystectomy Hx of CABG Presence of cardiac pacemaker S/P CABG x 2 Status post cholecystectomy Social History household members: none housing: assisted living facility number of children: 0 current occupational status: retired Smoking Status: Never smoker alcohol intake: never substance use type: does not use ROS ROS Narrative Admission Review of Systems: CONSTITUTIONAL: No weight loss, fever, chills, + weakness or fatigue. HEENT: Eyes: No visual loss, blurred vision, double vision or yellow sclerae. Ears, Nose, Throat: No hearing loss, sneezing, congestion, runny nose or sore throat. SKIN: No rash or itching, lesions, wounds except + notable bilateral lower extremity stasis blisters and significant venous stasis skin changes, stasis disease changes. CARDIOVASCULAR:+ Orthopnea, edema. No chest pain, chest pressure or chest discomfort, palpitations, syncopal events. RESPIRATORY: + Shortness of breath, mild cough, occasional white sputum production. No wheezing, hemoptysis. GASTROINTESTINAL: No anorexia, nausea, vomiting or diarrhea, abdominal pain, melena, BRBPR. GENITOURINARY: No dysuria, frequency, urgency or retention. NEUROLOGICAL: No headache, dizziness, syncope, paralysis, ataxia, numbness or tingling in the extremities, focal weakness, change in bowel or bladder control, seizure. MUSCULOSKELETAL: + muscle, back pain, joint pain or stiffness. HEMATOLOGIC: + anemia, easy bleeding or bruising. LYMPHATICS: No enlarged nodes. No history of splenectomy. PSYCHIATRIC: + History of anxiety and depression. ENDOCRINOLOGIC: No reports of sweating, cold or heat intolerance. No polyuria or polydipsia. ALLERGIES: + History of asthma and allergic rhinitis. Vital Signs Vital Signs Vital Signs: 12/07/23 09:50 12/07/23 09:54 12/07/23 09:59 Temperature 97.9 F 97.8 F Temperature Source Oral Oral Pulse Rate 68 68 Respiratory Rate 18 18 Respiratory Effort Short of Breath Respiratory Depth Normal Respiratory Pattern Normal Blood Pressure 133/74 H 133/74 H Blood Pressure Mean 93 93 Pulse Ox 93 87 Oxygen Delivery Method Room Air Room Air Nasal Cannula Oxygen Flow Rate (L/min) 3 12/07/23 10:30 12/07/23 10:54 12/07/23 12:00 Temperature 97.8 F 97.8 F Temperature Source Temporal Temporal Pulse Rate 78 67 Respiratory Rate 14 18 Respiratory Effort Respiratory Depth Respiratory Pattern Blood Pressure 134/78 H 131/78 H Blood Pressure Mean 96 95 Pulse Ox 94 97 Oxygen Delivery Method Room Air Nasal Cannula Nasal Cannula Oxygen Flow Rate (L/min) 12/07/23 13:00 Temperature 97.8 F Temperature Source Temporal Pulse Rate 76 Respiratory Rate 16 Respiratory Effort Respiratory Depth Respiratory Pattern Blood Pressure 142/78 H Blood Pressure Mean 99 Pulse Ox 97 Oxygen Delivery Method Nasal Cannula Oxygen Flow Rate (L/min) Weight Weight: 373 lb 3.881 oz Body Mass Index (BMI) 50.5 Physical Exam Narrative Physical Examination: General: Awake, alert, oriented x 3 and cooperative, seated upright in ED bed, fatigued but no acute distress. Skin: Normal color, normal turgor, no icterus, no cyanosis except for significant bilateral lower extremity venous stasis skin changes, with notable stasis blisters bilaterally. HEENT: AT/NC, EOMI, PERRLA, MMM, no appreciated carotid bruits, + JVD noted although difficult assessment given thickened neck. Lungs: Diminished, greater bases, very mild rales but very distant at the bases likely secondary to habitus, no evidence of any distress, no marked rhonchi or wheezing. Heart: Regular rate and rhythm; no gallop, rub audible. Abdomen: Soft, morbidly obese, NTTP, distant normal BS, difficult to assess abdominal distention or HSM secondary to habitus Extremities: No cyanosis, no clubbing, significant bilateral lower extremity pedal to proximal knee edema however complicated by stasis disease as noted, see skin. Neurological: Patient awake, alert, oriented as noted, cognitive function intact; pupils equally reactive to light and accommodation, cranial nerves II-XII grossly normal, moving all 4 extremities, no focal deficits, strength moderately to severely globally decreased secondary to acute presentation. Psychiatric: Affect appears fatigued, no acute evidence of depressive or anxiety feelings but does have underlying history. Results Lab / Micro Data 12/07/23 10:26 12/07/23 10:26 Labs: Laboratory Results - last 24 hr 12/07/23 10:26: WBC 9.0, RBC 4.10 L, Hgb 11.3 L, Hct 36.8 L, MCV 89.8, MCH 27.6, MCHC 30.7 L, RDW Std Deviation 51.8 H, RDW Coeff of Yue 15.8 H, Plt Count 214, MPV 9.6, Immature Gran % (Auto) 0.600, Neut % (Auto) 70.8 H, Lymph % (Auto) 13.2 L, [place] % (Auto) 11.9 H, Eos % (Auto) 3.1, Baso % (Auto) 0.4, Absolute Neuts (auto) 6.3, Absolute Lymphs (auto) 1.18, Nucleated RBC % 0, PT 17.0 H, INR 1.4, APTT 30.6, Sodium 138, Potassium 4.3, Chloride 104, Carbon Dioxide 33.0 H, Anion Gap 1 L, BUN 33 H, Creatinine 1.34 H, Estim Creat Clear Calc 68.70, Est GFR (MDRD) Af Amer 66, Est GFR (MDRD) Non-Af 54 L, BUN/Creatinine Ratio 24.6 H, Glucose 170 H, Calcium 8.9, Total Bilirubin 0.60, Direct Bilirubin 0.25, AST 14 L, ALT 21, Alkaline Phosphatase 83, Troponin I High Sens 22, B-Natriuretic Peptide 112.9 H, Total Protein 7.3, Albumin 3.0 L, Globulin 4.3 H Imaging Radiology Impression Chest X-Ray 12/07/23 10:32 IMPRESSION: Cardiomegaly and findings in keeping with CHF with possible bibasilar atelectasis and/or left basilar infiltrate. Electronically Signed: Christiano Odom MD at 10:58 EDT , Chest CTA 12/07/23 11:19 IMPRESSION: Minimal left pleural effusion with increased markings at the left lung base more prominent in the right base suggestive of either left basilar atelectasis and/or early infiltrate and atelectasis at the right lung base. Electronically Signed: Christiano Odom MD at 12:24 EDT , Assessment & Plan Assessment/Plan (1) Congestive heart failure: PLAN: Plan The patient is an 82 y/o M w/ PMHx: CKD stage II per GFR trending, Chronic anemia, Asthma/COPD with allergic rhinitis, EDMOND on BIPAP, CAD s/p PCI x 1 and CABG x 2, GERD, HTN, HLD, HFpEF, Hypothyroidism, Diabetes mellitus type II, BPH, Anxiety and Depression, Hx complete HB s/p pacemaker who presents to the [facility] ED on 12/07/23 with history of worsening dyspnea although noted to be intermittent with mild cough over the last several days with cough noted to be productive occasionally of white sputum with recent 12/06/2023 outpatient chest x-ray which demonstrated mild congestion and small effusions with increasing swelling to his lower extremities left greater than right complicated by underlying chronic lymphedema with chronic stasis wounds with notable orthopnea. #1. Acute Hypoxia secondary to Acute Mild Decompensated HFpEF: Patient administered IV lasix in the ED, will admit to PCU, maintain on cardiac telemetry, obtain cardiac enzyme series, obtain serial EKGs, continue IV lasix diuresis, monitor I/Os, maintain on intake restriction, continue medical therapy, obtain TSH and magnesium level. Most recent ECHO noted 11/14/2022 with normal LV size, LV systolic function normal, EF 60%, mild concentric LVH, PASP 28 mmHg thus will repeat at this time. Will place snug OZIEL wraps with elevation BL LE as noted #3. Given concerns for possible underlying developing infiltrate we will also obtain procalcitonin, sputum culture, respiratory viral panel, urine antigens to be cautious and low threshold to repeat chest x-ray to further assess or add antibiotic therapies if patient becomes febrile or further evaluation more concerning for infectious etiology. #2. Mild Renal Insufficiency on Chronic Kidney Disease Stage II per GFR trending: Likely secondary to acute presentation #1, admission BUN/Cr 33/1.34, GFR 66 normally in the 70-80 range consistent with stage II although has vacillated, baseline renal function primarily 0.9-1.1, repeat BMP in AM. Continue to monitor. #3. Bilateral Lower Extremity significant chronic venous stasis disease with chronic stasis ulcers: Will continue treatment as noted above number 1, place snug Oziel wraps with elevation, would benefit from ongoing outpatient evaluation in the wound care center. #4. CAD: Status post PCI and CABG, continue aspirin, Plavix, statin, metoprolol, losartan. #5. PAF: Patient not chronically anticoagulated, continue patient home asa, Plavix, metoprolol regimen. #6. Chronic COPD/asthma with allergic rhinitis: Will hold home inhalers and in the interim transition to ATC budesonide therapy, PRN albuterol, HOB, IS parameters, continue patient home Singulair and fluticasone regimen. #7. Diabetes mellitus type II: Hold oral home regimen, ADA diet, accu checks w/ ISS. #8. Anxiety and depression: We will continue patient home mirtazapine regimen #9. Hypertension: Continue home regimen including metoprolol, isosorbide, losartan, spironolactone, IV Lasix as noted, PRN hydralazine. #10. Hyperlipidemia: Continue home statin regimen. AM FLP. #11. History complete heart block: Status post pacemaker placement. #12. Morbid Obesity: Weight loss and lifestyle changes encouraged. #13. GERD: We will continue patient on PPI. #14. BPH: We will continue patient on Flomax regimen. #15. Chronic normocytic anemia: Admission hemoglobin 11.3, MCV 89.8, has certainly vacillated but primarily appears 11-12 range, stable, will continue to trend. #16. EDMOND: BiPAP nightly. #17. DVT prophylaxis: Heparin. #18. CODE status: Patient NICOLAS is Armaan his brother and living will is currently in place. Full Code status. Charges/Coding Visit Charges Inpatient E&M: 81595 Init Hosp L3
--- NOTE | 2023-12-07 14:15 | NURSING ---
PCU WHITE CHF, HYPOXIA
[2023-12-07] MEDS: Furosemide 100 MG/10 ML Vial 60 MG IV ×2 (14:26→17:31)
[2023-12-07 15:00] LABS: Magnesium 2.3 mg/dL (1.6-2.6)
[2023-12-07 15:13] LABS: Procalcitonin 0.08 ng/mL (0.00-0.09)
--- NOTE | 2023-12-07 16:29 | ECHOCS_ITS ---
Reason For Study: CONGESTIVE HEART FAILURE Procedure This was a 2D Doppler, Color Flow transthoracic echocardiogram. The study was technically difficult. Contrast injection was performed. Exam performed portable in patient room. Left Ventricle Normal LV size. Moderate concentric left ventricular hypertrophy. Left ventricular systolic function is normal. The left ventricular ejection fraction is 55 %. Right Ventricle Normal RV size. ICD or pacer leads identified within the right ventricle. Normal systolic function. Atria The left atrium is moderately enlarged. The right atrium is mildly enlarged. Mitral Valve Normal mitral valve. Tricuspid Valve Normal tricuspid valve. Aortic Valve Trisinus/trileaflet aortic valve. Pulmonic Valve The pulmonic valve is not well visualized. Great Vessels Normal aortic root. The pulmonary artery is normal size. Normal inferior vena cava. Pericardium/Pleural No pericardial effusion. Medication Diluted definity 3ml given slow IV push to enhance endocardial definition. MMode/2D Measurements & Calculations LVIDd: 5.0 cm IVSd: 1.4 cm LVOT diam: 2.1 cm LVIDs: 2.6 cm LVPWd: 1.3 cm RVDd: 4.5 cm FS: 48.1 % LVOT area: 3.6 cm2 Ao root diam: 3.7 cm LAV(MOD-bp): 81.2 ml LVAd ap4: 34.4 cm2 LAV(MOD-bp) Indexed: 29.7 ml/m2 LVLd ap4: 8.2 cm LAV(MOD-sp2): 74.5 ml EDV(MOD-sp4): 120.4 ml LAV(MOD-sp4): 80.8 ml EDV(sp4-el): 122.6 ml LVAs ap4: 22.3 cm2 LVLs ap4: 7.6 cm ESV(MOD-sp4): 53.6 ml ESV(sp4-el): 55.4 ml EF(MOD-sp4): 55.5 % EF(sp4-el): 54.8 % LVAd ap2: 37.6 cm2 SV(MOD-sp4): 66.8 ml SV(MOD-sp2): 69.1 ml LVLd ap2: 9.3 cm EDV(MOD-sp2): 124.5 ml EDV(sp2-el): 129.4 ml LVAs ap2: 24.1 cm2 LVLs ap2: 8.4 cm ESV(MOD-sp2): 55.5 ml ESV(sp2-el): 58.9 ml EF(MOD-sp2): 55.5 % SV(sp4-el): 67.2 ml LA dimension(2D): 5.8 cm LA A4 area: 26.5 cm2 RA A4 area: 22.7 cm2 TAPSE: 1.0 cm Time Measurements MV dec time: 0.16 sec Doppler Measurements & Calculations MV E max attila: 106.2 cm/sec Lat Peak E' Attila: 13.7 cm/sec Ao V2 max: 138.6 cm/sec E/E' lat: 7.7 Ao max P.7 mmHg Ao V2 mean: 91.8 cm/sec Ao mean P.9 mmHg Ao V2 VTI: 24.1 cm AV (velocity ratio): 0.62 MARK(I,D): 2.2 cm2 MARK(V,D): 1.9 cm2 LV V1 max: 75.2 cm/sec SV(LVOT): 52.9 ml PA V2 max: 84.0 cm/sec LV V1 max P.3 mmHg PA max PG (full): 1.2 mmHg LV V1 mean P.0 mmHg LV V1 mean: 46.0 cm/sec LV V1 VTI: 14.8 cm ECHO/Echo Complete W/ Contrast Interpretation Summary Normal LV size. Moderate concentric left ventricular hypertrophy. The left ventricular ejection fraction is 55 %. Left ventricular systolic function is normal. Contrast injection was performed. Ordering Physician: Magdalena Grace Performed By: Shaye Oliva RDCS
[2023-12-07] MEDS: Insulin Lispro 100 UNIT/ML INSULN.PEN SC ×2 (17:34→23:01)
[2023-12-07 17:42] LABS: Troponin-I HS 22 pg/mL (3.0-78.0)
[2023-12-07 18:39] LABS: Bedside Glucose 181 mg/dL (74-106)
[2023-12-07] MEDS: Budesonide Respules 0.5 MG/2 ML AMPUL.NEB. INHALATION (19:01)
[2023-12-07 20:35] LABS: Troponin-I HS 20 pg/mL (3.0-78.0)
[2023-12-07] MEDS: Heparin Injection (Vial) 5,000 UNIT/ML VIAL 5000 UNIT SC (22:58)
[2023-12-07] MEDS: Losartan Potassium 25 MG Tablet PO (22:59)
[2023-12-07] MEDS: Tamsulosin HCl 0.4 MG Capsule PO (22:59)
[2023-12-07] MEDS: Atorvastatin Calcium 80 MG Tablet PO (22:59)
[2023-12-07] MEDS: busPIRone 15 MG TABLET PO (22:59)
[2023-12-07] MEDS: Pantoprazole Sodium 40 MG Tablet PO (23:00)
[2023-12-07] MEDS: Mirtazapine 15 MG Tablet PO (23:00)
[2023-12-07] MEDS: Montelukast 10 MG Tablet PO (23:01)
[2023-12-07] MEDS: guaiFENesin 10 ML UDC (200MG/10ML) 20 ML PO (23:06)
[2023-12-07 23:49] LABS: Bedside Glucose 189 mg/dL (74-106)
[2023-12-07 23:58] LABS: Troponin-I HS 20 pg/mL (3.0-78.0)
[2023-12-08] VITALS (10 sets, daily range): BP systolic 113–130; BP diastolic 53–60; PULSE 60–72; RESP 16–20; TEMP 36.5–36.9; O2SAT 91–96; BMI 48.9
[2023-12-08] MEDS: busPIRone 15 MG TABLET PO ×3 (05:17→21:16)
[2023-12-08] MEDS: Budesonide Respules 0.5 MG/2 ML AMPUL.NEB. INHALATION ×2 (06:44→19:10)
[2023-12-08 06:56] LABS: Absolute Lymphocyte Count 1.26 X10^3/uL (0.83-4.51); Absolute Neutrophil Count 5.4 X10^3/uL (2.0-7.7); Basophil# 0.05 X10^3/uL; Basophil% 0.6 % (0-1); Eosinophil# 0.33 X10^3/uL; Eosinophils% 4.1 % (0-5); Hematocrit 38.1 % (40-54); Hemoglobin 11.5 g/dL (13.0-16.5); Lymphocyte # 1.26 X10^3/ul (0.83-4.51); Lymphocyte % 15.6 % (19-41); Mean Corp Hgb Conc 30.2 g/dL (32-36); Mean Corpuscular Hgb 27.4 pg (27.0-32.0); Mean Corpuscular Volume 90.9 fL (80-94); Mean Platelet Vol. 10.1 fl (6.2-12.0); Monocyte# 0.95 X10^3/uL; Monocyte% 11.8 % (0-10); NRBC Flagged by Analyzer 0 % (0-5); Neutrophil # 5.44 X10^3/uL (2.7-7.7); Neutrophil % 67.4 % (47-70); Platelet Count 224 K/mm3 (150-450); RBC Distribution Width CV 15.7 % (11.6-14.6); RBC Distribution Width SD 52.5 fl (35.1-43.9); Red Blood Count 4.19 M/mm3 (4.6-6.2); White Blood Count 8.1 K/mm3 (4.4-11.0)
[2023-12-08 06:58] LABS: Bedside Glucose 107 mg/dL (74-106)
[2023-12-08 07:30] LABS: ALB/GLOB Ratio 0.7 RATIO (0.9-2.4); AST(SGOT) 15 U/L (15-37); Alanine Aminotransfer ALT/SGPT 20 U/L (16-61); Albumin, Serum 3.1 g/dL (3.2-5.0); Alkaline Phosphatase 86 U/L (45-117); Anion Gap 4 (5-15); BUN 31 mg/dL (7-18); BUN/Creat Ratio 27.9 RATIO (10-20); Calcium,Total 9.2 mg/dL (8.5-10.1); Chloride 102 mmol/L (98-107); Cholesterol 92 mg/dL (200); Creatinine, Serum 1.11 mg/dL (0.70-1.30); EST Glomerular Filtration Rate 67 mL/min (>60); Est Glom Filt Rate - Afr Amer 82 mL/min (>60); Estimated Creatinine Clearance 81.28 ml/min; Globulin 4.2 g/dL (2.2-4.2); Glucose 110 mg/dL (74-106); High Density Lipoprotein 30 mg/dL; Potassium 3.7 mmol/L (3.5-5.1); Protein, Total 7.3 g/dL (6.4-8.2); Sodium Level 138 mmol/L (136-145); Thyroid Stim Hormone (TSH) 3.09 uIU/mL (0.358-3.74); Triglycerides 88 mg/dL; Very Low Density Lipoprotein 18 mg/dL (5-40)
--- NOTE | 2023-12-08 09:04 | PCM.PN.HOSP ---
Reason for Visit Reason for Visit: Diagnoses Heart failure, unspecified (12/07/23) Subjective Subjective Patient is an 83-year-old gentleman with multiple comorbidities admitted with progressive shortness of breath as well as bipedal edema diagnosed with acute decompensated congestive heart failure admitted to a monitored bed for further management Objective Data Objective Data Vital Signs: Vital Signs Temp Pulse Resp BP Pulse Ox O2 Del Method O2 Flow Rate 97.7 F L 60 18 120/59 L 94 Bi-pap 3 12/08/23 05:16 12/08/23 05:16 12/08/23 05:16 12/08/23 05:16 12/08/23 05:16 12/08/23 06:34 12/08/23 06:34 FiO2 3 12/07/23 22:40 Oxygen Flow Rate (L/min) 3 Oxygen Delivery Method Bi-pap Weight: 163.6 kg Body Mass Index (BMI) 48.9 Intake & Output: Intake and Output for Last 24 Hours 12/06/23 12/07/23 12/08/23 23:59 23:59 23:59 Intake Total 0 / 0 Output Total 2900 / 2900 650 / 650 Balance -2900 / -2900 -650 / -650 Lab / Micro Data 12/08/23 06:20 12/08/23 06:20 Labs: Laboratory Results - last 24 hr 12/07/23 10:26: WBC 9.0, RBC 4.10 L, Hgb 11.3 L, Hct 36.8 L, MCV 89.8, MCH 27.6, MCHC 30.7 L, RDW Std Deviation 51.8 H, RDW Coeff of Yue 15.8 H, Plt Count 214, MPV 9.6, Immature Gran % (Auto) 0.600, Neut % (Auto) 70.8 H, Lymph % (Auto) 13.2 L, [place] % (Auto) 11.9 H, Eos % (Auto) 3.1, Baso % (Auto) 0.4, Absolute Neuts (auto) 6.3, Absolute Lymphs (auto) 1.18, Nucleated RBC % 0, PT 17.0 H, INR 1.4, APTT 30.6, Sodium 138, Potassium 4.3, Chloride 104, Carbon Dioxide 33.0 H, Anion Gap 1 L, BUN 33 H, Creatinine 1.34 H, Estim Creat Clear Calc 68.70, Est GFR (MDRD) Af Amer 66, Est GFR (MDRD) Non-Af 54 L, BUN/Creatinine Ratio 24.6 H, Glucose 170 H, Calcium 8.9, Magnesium 2.3, Total Bilirubin 0.60, Direct Bilirubin 0.25, AST 14 L, ALT 21, Alkaline Phosphatase 83, Troponin I High Sens 22, B-Natriuretic Peptide 112.9 H, Total Protein 7.3, Albumin 3.0 L, Globulin 4.3 H, Procalcitonin 0.08 12/07/23 17:16: Troponin I High Sens 22 12/07/23 17:29: POC Glucose 181 H 12/07/23 19:45: Troponin I High Sens 20 12/07/23 22:45: POC Glucose 189 H 12/07/23 23:23: Troponin I High Sens 20 12/08/23 06:20: WBC 8.1, RBC 4.19 L, Hgb 11.5 L, Hct 38.1 L, MCV 90.9, MCH 27.4, MCHC 30.2 L, RDW Std Deviation 52.5 H, RDW Coeff of Yue 15.7 H, Plt Count 224, MPV 10.1, Immature Gran % (Auto) 0.500, Neut % (Auto) 67.4, Lymph % (Auto) 15.6 L, [place] % (Auto) 11.8 H, Eos % (Auto) 4.1, Baso % (Auto) 0.6, Absolute Neuts (auto) 5.4, Absolute Lymphs (auto) 1.26, Nucleated RBC % 0, Sodium 138, Potassium 3.7, Chloride 102, Carbon Dioxide 32.0, Anion Gap 4 L, BUN 31 H, Creatinine 1.11, Estim Creat Clear Calc 81.28, Est GFR (MDRD) Af Amer 82, Est GFR (MDRD) Non-Af 67, BUN/Creatinine Ratio 27.9 H, Glucose 110 H, Calcium 9.2, Total Bilirubin 0.90, AST 15, ALT 20, Alkaline Phosphatase 86, Total Protein 7.3, Albumin 3.1 L, Globulin 4.2, Albumin/Globulin Ratio 0.7 L, Triglycerides 88, Cholesterol 92, LDL Cholesterol 44, VLDL Cholesterol 18, HDL Cholesterol 30 L, TSH 3.09 12/08/23 06:40: POC Glucose 107 H Micro: Microbiology 12/07/23 16:05 Mucosa - Nose Respiratory Panel (PCR) - Final 12/07/23 16:40 Urine, Random Legionella Antigen - Final 12/07/23 16:40 Urine, Random Streptococcus pneumoniae Antigen (M - Final Radiography Diagnostic Testing: Radiology Impression Chest X-Ray 12/07/23 10:32 IMPRESSION: Cardiomegaly and findings in keeping with CHF with possible bibasilar atelectasis and/or left basilar infiltrate. Electronically Signed: Christiano Odom MD at 10:58 EDT , Chest CTA 12/07/23 11:19 IMPRESSION: Minimal left pleural effusion with increased markings at the left lung base more prominent in the right base suggestive of either left basilar atelectasis and/or early infiltrate and atelectasis at the right lung base. Electronically Signed: Christiano Odom MD at 12:24 EDT , Physical Exam Narrative GENERAL: cooperative HEENT: Atraumatic; normocephalic EYES; Anicteric, Normal Conjunctiva NECK; supple, normal thyroid, RESPIRATORY: Diminished to auscultation CARDIOVASCULAR: Regular S1 S2, GI: soft, normoactive bowel sounds, : No Renal angle tenderness; EXTREMITIES: Bilateral lymphedema MUSCULOSKELETAL: no muscle wasting NEURO: Awake; no lateralizing signs. SKIN: No Rash PSYCH; Flat affect Assessment & Plan Assessment/Plan (1) Congestive heart failure: PLAN: Plan Patient is an 83-year-old gentleman with multiple comorbidities admitted with progressive shortness of breath as well as bipedal edema diagnosed with acute decompensated congestive heart failure admitted to a monitored bed for further management 1. Acute on chronic congestive heart failure with preserved ejection fraction ? Echo from 11/16/2022 demonstrated EF of 60%. Managed with diuretics, strict input and output, daily weight, low-sodium diet 2. Class III 3 obesity with BMI of 48.9 ? Complicating care weight loss advised next 3. Diabetes mellitus type II -patient's oral hypoglycemics held. Placed on long acting insulin, Accu-Cheks a.c. and at bedtime and covered with sliding scale insulin 4. Hypertension - Blood pressure controlled, home medications continued with dose adjustment as needed 5. Dyslipidemia -Patient is on statin therapy, continued at home dose 6. Coronary artery disease ? With previous CABG and subsequent PCI patient is on guideline directed medical therapy 7. Paroxysmal A-fib ? Rate controlled not on systemic anticoagulation due to risk for falls 8. BPH with lower urinary obstructive symptoms - Patient treated with tamsulosin 9.. Overlap syndrome with COPD asthma ? Bronchodilator treatment as needed 10. GERD ? Patient is on Protonix 40 mg p.o. twice daily discontinued 11. Allergic rhinitis ? Patient is on montelukast?continue 12. Bilateral lower extremity lymphedema ? Apparently resistant to outpatient treatment admitted for inpatient treatment with IV diuretics consult placed wound care nurse 13. Chronic constipation ? Patient is on plecanatide tied with continued 14.. Physical deconditioning - Requested for PT OT eval and social media marketing manager to assist with discharge planning 15. DVT prophylaxis ? SC heparin Time spent in the patient's overall evaluation,decision-making process, review of diagnostic data, adjustment of management, discussion with other providers, nursing nursing and ancillary staff involved in patient's care documentation, 50 Minutes Charges/Coding Visit Charges Inpatient E&M: 05910 Subs Hosp L3
[2023-12-08] MEDS: guaiFENesin 10 ML UDC (200MG/10ML) 20 ML PO ×2 (09:21→21:26)
[2023-12-08] MEDS: Fluticasone 0.05% 1 SPRAY NASAL.SRY 2 SPRAY NASAL (09:22)
[2023-12-08] MEDS: Furosemide 100 MG/10 ML Vial 60 MG IV ×2 (09:23→18:17)
[2023-12-08] MEDS: Heparin Injection (Vial) 5,000 UNIT/ML VIAL 5000 UNIT SC ×2 (09:23→21:15)
[2023-12-08] MEDS: Docusate Sodium 100 MG Capsule PO (09:23)
[2023-12-08] MEDS: Pantoprazole Sodium 40 MG Tablet PO ×2 (09:23→21:15)
[2023-12-08] MEDS: Magnesium Chloride 64 MG Delay Rel.Tablet 128 MG PO (09:24)
[2023-12-08] MEDS: Aspirin 81 MG TAB.CHEW PO (09:24)
[2023-12-08] MEDS: Spironolactone 50 MG Tablet PO (09:24)
[2023-12-08] MEDS: Isosorbide Mononitrate 30 MG Tablet PO (09:24)
[2023-12-08] MEDS: Clopidogrel Bisulfate 75 MG Tablet PO (09:25)
[2023-12-08] MEDS: 0.9% Saline Lock 10 ML Syringe IV ×2 (09:27→18:17)
[2023-12-08 11:16] LABS: Bedside Glucose 197 mg/dL (74-106)
--- NOTE | 2023-12-08 11:23 | CASEMGMT ---
SW received a call from Rashida at [facility]. They feel patient needs a nursing home facility at discharge. Stacy TSANG
[2023-12-08] MEDS: Insulin Lispro 100 UNIT/ML INSULN.PEN SC ×3 (11:27→21:29)
[2023-12-08] MEDS: Metoprolol(XL)Succ 25 MG Tablet PO (11:28)
[2023-12-08 17:43] LABS: Bedside Glucose 188 mg/dL (74-106)
[2023-12-08] MEDS: Mirtazapine 15 MG Tablet PO (21:15)
[2023-12-08] MEDS: Atorvastatin Calcium 80 MG Tablet PO (21:15)
[2023-12-08] MEDS: Tamsulosin HCl 0.4 MG Capsule PO (21:16)
[2023-12-08] MEDS: Montelukast 10 MG Tablet PO (21:16)
[2023-12-08] MEDS: Losartan Potassium 25 MG Tablet PO (21:17)
[2023-12-08 22:11] LABS: Bedside Glucose 233 mg/dL (74-106)
[2023-12-09] VITALS (11 sets, daily range): BP systolic 118–135; BP diastolic 50–62; PULSE 60–68; RESP 14–18; TEMP 36.4–36.6; O2SAT 93–99; BMI 48.4
[2023-12-09] MEDS: busPIRone 15 MG TABLET PO ×3 (06:28→21:16)
[2023-12-09] MEDS: Budesonide Respules 0.5 MG/2 ML AMPUL.NEB. INHALATION ×2 (09:02→19:10)
[2023-12-09] MEDS: Docusate Sodium 100 MG Capsule PO (09:27)
[2023-12-09] MEDS: Aspirin 81 MG TAB.CHEW PO (09:27)
[2023-12-09] MEDS: Spironolactone 50 MG Tablet PO (09:27)
[2023-12-09] MEDS: Metoprolol(XL)Succ 25 MG Tablet PO (09:27)
[2023-12-09] MEDS: Isosorbide Mononitrate 30 MG Tablet PO (09:27)
[2023-12-09] MEDS: Fluticasone 0.05% 1 SPRAY NASAL.SRY 2 SPRAY NASAL (09:28)
[2023-12-09] MEDS: Clopidogrel Bisulfate 75 MG Tablet PO (09:28)
[2023-12-09] MEDS: Pantoprazole Sodium 40 MG Tablet PO ×2 (09:28→21:17)
[2023-12-09] MEDS: Magnesium Chloride 64 MG Delay Rel.Tablet 128 MG PO (09:28)
[2023-12-09] MEDS: guaiFENesin 10 ML UDC (200MG/10ML) 20 ML PO ×2 (09:32→18:21)
[2023-12-09] MEDS: Heparin Injection (Vial) 5,000 UNIT/ML VIAL 5000 UNIT SC ×2 (09:33→21:19)
[2023-12-09] MEDS: Furosemide 100 MG/10 ML Vial 60 MG IV ×2 (09:35→18:23)
[2023-12-09] MEDS: 0.9% Saline Lock 10 ML Syringe IV ×2 (09:37→18:23)
--- NOTE | 2023-12-09 09:39 | CPS ---
this RT decreased pt down to 2L NC at this time
--- NOTE | 2023-12-09 09:47 | PCM.PN.HOSP ---
Reason for Visit Reason for Visit: Diagnoses Heart failure, unspecified (12/07/23) Subjective Subjective Patient seen still remains dyspneic at rest. Will continue with current diuretic therapy Objective Data Objective Data Vital Signs: Vital Signs Temp Pulse Resp BP Pulse Ox O2 Del Method O2 Flow Rate 97.6 F L 60 18 118/50 L 96 Nasal Cannula 2 12/09/23 09:21 12/09/23 09:27 12/09/23 09:21 12/09/23 09:21 12/09/23 09:21 12/09/23 09:21 12/09/23 09:21 FiO2 3 12/07/23 22:40 Oxygen Flow Rate (L/min) 2 Oxygen Delivery Method Nasal Cannula Weight: 162.1 kg Body Mass Index (BMI) 48.4 Intake & Output: Intake and Output for Last 24 Hours 12/07/23 12/08/23 12/09/23 23:59 23:59 23:59 Intake Total 0 / 0 570 / 570 150 / 150 Output Total 2900 / 2900 3250 / 3250 950 / 950 Balance -2900 / -2900 -2680 / -2680 -800 / -800 Lab / Micro Data 12/08/23 06:20 12/08/23 06:20 Labs: Laboratory Results - last 24 hr 12/08/23 10:49: POC Glucose 197 H 12/08/23 16:41: POC Glucose 188 H 12/08/23 21:29: POC Glucose 233 H Micro: Microbiology 12/07/23 16:05 Mucosa - Nose Respiratory Panel (PCR) - Final 12/07/23 16:40 Urine, Random Legionella Antigen - Final 12/07/23 16:40 Urine, Random Streptococcus pneumoniae Antigen (M - Final Radiography Diagnostic Testing: Radiology Impression Echocardiogram 12/07/23 16:29 Interpretation Summary Normal LV size. Moderate concentric left ventricular hypertrophy. The left ventricular ejection fraction is 55 %. Left ventricular systolic function is normal. Contrast injection was performed. Ordering Physician: Magdalena Grace Performed By: Shaye Oliva RDCS Physical Exam Narrative GENERAL: cooperative HEENT: Atraumatic; normocephalic EYES; Anicteric, Normal Conjunctiva NECK; supple, normal thyroid, RESPIRATORY: Diminished to auscultation CARDIOVASCULAR: Regular S1 S2, GI: soft, normoactive bowel sounds, : No Renal angle tenderness; EXTREMITIES: Bilateral lymphedema MUSCULOSKELETAL: no muscle wasting NEURO: Awake; no lateralizing signs. SKIN: No Rash PSYCH; Flat affect Assessment & Plan Assessment/Plan (1) Congestive heart failure: PLAN: Plan Patient is an 83-year-old gentleman with multiple comorbidities admitted with progressive shortness of breath as well as bipedal edema diagnosed with acute decompensated congestive heart failure admitted to a monitored bed for further management 1. Acute on chronic congestive heart failure with preserved ejection fraction ? Echo from 11/16/2022 demonstrated EF of 60%. Managed with diuretics, strict input and output, daily weight, low-sodium diet ? Patient still remains dyspneic at rest. Patient is negative fluid balance of 2.8 L over the past 24 hours. 2. Class III 3 obesity with BMI of 48.9 ? Complicating care weight loss advised next 3. Diabetes mellitus type II -patient's oral hypoglycemics held. Placed on long acting insulin, Accu-Cheks a.c. and at bedtime and covered with sliding scale insulin 4. Hypertension - Blood pressure controlled, home medications continued with dose adjustment as needed 5. Dyslipidemia -Patient is on statin therapy, continued at home dose 6. Coronary artery disease ? With previous CABG and subsequent PCI patient is on guideline directed medical therapy 7. Paroxysmal A-fib ? Rate controlled not on systemic anticoagulation due to risk for falls 8. BPH with lower urinary obstructive symptoms - Patient treated with tamsulosin 9.. Overlap syndrome with COPD asthma ? Bronchodilator treatment as needed 10. GERD ? Patient is on Protonix 40 mg p.o. twice daily discontinued 11. Allergic rhinitis ? Patient is on montelukast?continue 12. Bilateral lower extremity lymphedema ? Apparently resistant to outpatient treatment admitted for inpatient treatment with IV diuretics consult placed wound care nurse 13. Chronic constipation ? Patient is on plecanatide tied with continued 14.. Physical deconditioning - Requested for PT OT eval and dialysis social worker to assist with discharge planning 15. DVT prophylaxis ? SC heparin Time spent in the patient's overall evaluation,decision-making process, review of diagnostic data, adjustment of management, discussion with other providers, nursing nursing and ancillary staff involved in patient's care documentation, 38 Minutes Charges/Coding Visit Charges Inpatient E&M: 82123 Subs Hosp L2
[2023-12-09 10:22] LABS: Absolute Lymphocyte Count 1.06 X10^3/uL (0.83-4.51); Absolute Neutrophil Count 6.5 X10^3/uL (2.0-7.7); Basophil# 0.05 X10^3/uL; Basophil% 0.6 % (0-1); Eosinophil# 0.38 X10^3/uL; Eosinophils% 4.2 % (0-5); Hemoglobin 11.9 g/dL (13.0-16.5); Lymphocyte # 1.06 X10^3/ul (0.83-4.51); Lymphocyte % 11.8 % (19-41); Mean Corp Hgb Conc 31.3 g/dL (32-36); Mean Corpuscular Hgb 28.1 pg (27.0-32.0); Mean Corpuscular Volume 89.6 fL (80-94); Mean Platelet Vol. 9.7 fl (6.2-12.0); Monocyte# 0.91 X10^3/uL; Monocyte% 10.2 % (0-10); NRBC Flagged by Analyzer 0 % (0-5); Neutrophil # 6.52 X10^3/uL (2.7-7.7); Neutrophil % 72.8 % (47-70); Platelet Count 209 K/mm3 (150-450); RBC Distribution Width CV 15.7 % (11.6-14.6); RBC Distribution Width SD 51.4 fl (35.1-43.9); Red Blood Count 4.24 M/mm3 (4.6-6.2)
--- NOTE | 2023-12-09 10:47 | CASEMGMT ---
BREEZY faxed updates to [facility]. SW met with patient. Introduced self and role at [facility]. SW asked patient about discharge plan and patient plans to return to [facility]. SW mentioned [facility] stating they feel patient would benefit from going to a custodial. Patient said he is going to go back to [facility], not to a custodial. SW will talk with [facility] and let them know this information and that physician is planning on discharging tomorrow. Stacy TSANG
[2023-12-09 11:08] LABS: Anion Gap 4 (5-15); BUN 34 mg/dL (7-18); BUN/Creat Ratio 26.8 RATIO (10-20); Calcium,Total 8.7 mg/dL (8.5-10.1); Chloride 100 mmol/L (98-107); Creatinine, Serum 1.27 mg/dL (0.70-1.30); EST Glomerular Filtration Rate 58 mL/min (>60); Est Glom Filt Rate - Afr Amer 70 mL/min (>60); Estimated Creatinine Clearance 70.66 ml/min; Glucose 265 mg/dL (74-106); Magnesium 2.2 mg/dL (1.6-2.6); Phosphorus 3.9 mg/dL (2.5-4.9); Potassium 3.8 mmol/L (3.5-5.1); Sodium Level 136 mmol/L (136-145)
[2023-12-09] MEDS: Insulin Lispro 100 UNIT/ML INSULN.PEN SC ×3 (11:27→21:24)
[2023-12-09 13:51] LABS: Bedside Glucose 309 mg/dL (74-106)
[2023-12-09 13:51] LABS: Bedside Glucose 127 mg/dL (74-106)
--- NOTE | 2023-12-09 13:51 | WOUNDNOTE ---
wound photo: left lower leg
--- NOTE | 2023-12-09 13:52 | WOUNDNOTE ---
wound photo: right lower leg
--- NOTE | 2023-12-09 15:18 | CASEMGMT ---
BREEZY faxed PT note from today to [facility]. BREEZY also called [facility] and spoke with Raj (?). BREEZY explained patient is not in agreement with going to a retirement at this time. BREEZY also let her know patient may be discharged back to [facility] tomorrow. Stacy Haddad OSTOMY NURSE SHARAN
--- NOTE | 2023-12-09 16:21 | CHAPLAIN ---
Type of Pastoral Visit _x__ Initial Visit ___ Follow-up Visit ___ On-call Visit ___ General Patient Visit ___ Spiritual Assessment ___ Family Conference ___ Bereavement ___ Rapid Response ___ Code Blue ___ Other (describe below) Pastoral Care Referral From _x__ Patient ___ Family ___ Nurse ___ Physician ___ Cinder Block Mason ___ Cap Maker ___ Other (describe below) Sacrament/Intervention _x__ Active listening ___ Anointing ___ Shinto ___ Bereavement ___ Communion ___ Ya exploration ___ ___ Life review _x__ Prayer ___ Reconciliation ___ Sacrament of Sick _x__ Supportive presence ___ Wedding ___ Other (describe below) Pastoral Comments patient has been seen before and gives updates on his life and circumstances; pt gives several health concerns and reasons for being evaluated; pt has remained at his apartment; pt has limited support but welcomes this time for conversation and prayer
[2023-12-09 16:46] LABS: Bedside Glucose 258 mg/dL (74-106)
[2023-12-09] MEDS: Losartan Potassium 25 MG Tablet PO (21:16)
[2023-12-09] MEDS: Tamsulosin HCl 0.4 MG Capsule PO (21:17)
[2023-12-09] MEDS: Mirtazapine 15 MG Tablet PO (21:17)
[2023-12-09] MEDS: Montelukast 10 MG Tablet PO (21:17)
[2023-12-09] MEDS: Atorvastatin Calcium 80 MG Tablet PO (21:17)
[2023-12-09 22:56] LABS: Bedside Glucose 264 mg/dL (74-106)
[2023-12-10 02:30] VITALS: PULSE 70; RESP 14; O2SAT 93
[2023-12-10 03:00] VITALS: BP 140/65; PULSE 60; RESP 16; TEMP 36.4; O2SAT 96
[2023-12-10 06:00] VITALS: BMI 47.6
[2023-12-10] MEDS: busPIRone 15 MG TABLET PO (06:29)
[2023-12-10 06:39] LABS: Absolute Lymphocyte Count 1.09 X10^3/uL (0.83-4.51); Basophil# 0.04 X10^3/uL; Basophil% 0.5 % (0-1); Eosinophil# 0.37 X10^3/uL; Eosinophils% 4.3 % (0-5); Hematocrit 37.4 % (40-54); Hemoglobin 11.5 g/dL (13.0-16.5); Lymphocyte # 1.09 X10^3/ul (0.83-4.51); Lymphocyte % 12.7 % (19-41); Mean Corp Hgb Conc 30.7 g/dL (32-36); Mean Corpuscular Hgb 27.7 pg (27.0-32.0); Mean Corpuscular Volume 90.1 fL (80-94); Mean Platelet Vol. 9.7 fl (6.2-12.0); Monocyte# 1.05 X10^3/uL; Monocyte% 12.3 % (0-10); NRBC Flagged by Analyzer 0 % (0-5); Neutrophil # 5.99 X10^3/uL (2.7-7.7); Neutrophil % 69.8 % (47-70); Platelet Count 231 K/mm3 (150-450); RBC Distribution Width CV 15.7 % (11.6-14.6); RBC Distribution Width SD 51.7 fl (35.1-43.9); Red Blood Count 4.15 M/mm3 (4.6-6.2); White Blood Count 8.6 K/mm3 (4.4-11.0)
[2023-12-10 07:00] VITALS: PULSE 69; RESP 18; O2SAT 93
[2023-12-10 07:09] LABS: Anion Gap 4 (5-15); BUN 28 mg/dL (7-18); BUN/Creat Ratio 25.5 RATIO (10-20); Calcium,Total 8.5 mg/dL (8.5-10.1); Chloride 100 mmol/L (98-107); EST Glomerular Filtration Rate 68 mL/min (>60); Est Glom Filt Rate - Afr Amer 82 mL/min (>60); Estimated Creatinine Clearance 80.76 ml/min; Glucose 164 mg/dL (74-106); Potassium 3.8 mmol/L (3.5-5.1); Sodium Level 138 mmol/L (136-145)
[2023-12-10 07:11] LABS: Bedside Glucose 159 mg/dL (74-106)
--- NOTE | 2023-12-10 08:58 | PN.HOSP_ITS ---
Reason for Visit Reason for Visit: Diagnoses Heart failure, unspecified (12/07/23) Subjective Subjective Patient seen back to baseline. Plan show to be assessed for possible Objective Data Objective Data Vital Signs: Vital Signs Temp Pulse Resp BP Pulse Ox O2 Del Method O2 Flow Rate 97.5 F L 69 18 140/65 H 93 Nasal Cannula 2 12/10/23 03:00 12/10/23 07:00 12/10/23 07:00 12/10/23 03:00 12/10/23 07:00 12/10/23 04:30 12/10/23 04:30 FiO2 3 12/07/23 22:40 Oxygen Flow Rate (L/min) 2 Oxygen Delivery Method Nasal Cannula Weight: 159.3 kg Body Mass Index (BMI) 47.6 Intake & Output: Intake and Output for Last 24 Hours 12/08/23 12/09/23 12/10/23 23:59 23:59 23:59 Intake Total 570 / 570 1350 / 1350 Output Total 3250 / 3250 3000 / 3000 Balance -2680 / -2680 -1650 / -1650 Lab / Micro Data 12/10/23 05:52 12/10/23 05:52 Labs: Laboratory Results - last 24 hr 12/09/23 06:31: POC Glucose 127 H 12/09/23 10:13: WBC 9.0, RBC 4.24 L, Hgb 11.9 L, Hct 38.0 L, MCV 89.6, MCH 28.1, MCHC 31.3 L, RDW Std Deviation 51.4 H, RDW Coeff of Yue 15.7 H, Plt Count 209, MPV 9.7, Immature Gran % (Auto) 0.400, Neut % (Auto) 72.8 H, Lymph % (Auto) 11.8 L, [place] % (Auto) 10.2 H, Eos % (Auto) 4.2, Baso % (Auto) 0.6, Absolute Neuts (auto) 6.5, Absolute Lymphs (auto) 1.06, Nucleated RBC % 0, Sodium 136, Potassium 3.8, Chloride 100, Carbon Dioxide 32.0, Anion Gap 4 L, BUN 34 H, Creatinine 1.27, Estim Creat Clear Calc 70.66, Est GFR (MDRD) Af Amer 70, Est GFR (MDRD) Non-Af 58 L, BUN/Creatinine Ratio 26.8 H, Glucose 265 H, Calcium 8.7, Phosphorus 3.9, Magnesium 2.2 12/09/23 11:26: POC Glucose 309 H 12/09/23 16:26: POC Glucose 258 H 12/09/23 21:11: POC Glucose 264 H 12/10/23 05:52: WBC 8.6, RBC 4.15 L, Hgb 11.5 L, Hct 37.4 L, MCV 90.1, MCH 27.7, MCHC 30.7 L, RDW Std Deviation 51.7 H, RDW Coeff of Yue 15.7 H, Plt Count 231, MPV 9.7, Immature Gran % (Auto) 0.400, Neut % (Auto) 69.8, Lymph % (Auto) 12.7 L , [place] % (Auto) 12.3 H, Eos % (Auto) 4.3, Baso % (Auto) 0.5, Absolute Neuts (auto) 6.0, Absolute Lymphs (auto) 1.09, Nucleated RBC % 0, Sodium 138, Potassium 3.8, Chloride 100, Carbon Dioxide 34.0 H, Anion Gap 4 L, BUN 28 H, Creatinine 1.10, Estim Creat Clear Calc 80.76, Est GFR (MDRD) Af Amer 82, Est GFR (MDRD) Non-Af 68, BUN/Creatinine Ratio 25.5 H, Glucose 164 H, Calcium 8.5 12/10/23 06:27: POC Glucose 159 H Micro: Microbiology 12/08/23 13:35 Sputum, Expectorated/Coughed Gram Stain - Final 12/08/23 13:35 Sputum, Expectorated/Coughed Respiratory Culture - Final Serratia marcescens 12/07/23 16:05 Mucosa - Nose Respiratory Panel (PCR) - Final 12/07/23 16:40 Urine, Random Legionella Antigen - Final 12/07/23 16:40 Urine, Random Streptococcus pneumoniae Antigen (M - Final Physical Exam Narrative GENERAL: cooperative HEENT: Atraumatic; normocephalic EYES; Anicteric, Normal Conjunctiva NECK; supple, normal thyroid, RESPIRATORY: Diminished to auscultation CARDIOVASCULAR: Regular S1 S2, GI: soft, normoactive bowel sounds, : No Renal angle tenderness; EXTREMITIES: Bilateral lymphedema MUSCULOSKELETAL: no muscle wasting NEURO: Awake; no lateralizing signs. SKIN: No Rash PSYCH; Flat affect Assessment & Plan Assessment/Plan (1) Congestive heart failure: PLAN: Plan Patient is an 83-year-old gentleman with multiple comorbidities admitted with progressive shortness of breath as well as bipedal edema diagnosed with acute decompensated congestive heart failure admitted to a monitored bed for further management 1. Acute on chronic congestive heart failure with preserved ejection fraction ? Echo from 11/16/2022 demonstrated EF of 60%. Managed with diuretics, strict input and output, daily weight, low-sodium diet ? Patient still remains dyspneic at rest. Patient is negative fluid balance of 2.8 L over the past 24 hours. ? 12/10/2023 patient back to baseline patient to be assessed for possible discharge 2. Class III 3 obesity with BMI of 48.9 ? Complicating care weight loss advised next 3. Diabetes mellitus type II -patient's oral hypoglycemics held. Placed on long acting insulin, Accu-Cheks a.c. and at bedtime and covered with sliding scale insulin 4. Hypertension - Blood pressure controlled, home medications continued with dose adjustment as needed 5. Dyslipidemia -Patient is on statin therapy, continued at home dose 6. Coronary artery disease ? With previous CABG and subsequent PCI patient is on guideline directed medical therapy 7. Paroxysmal A-fib ? Rate controlled not on systemic anticoagulation due to risk for falls 8. BPH with lower urinary obstructive symptoms - Patient treated with tamsulosin 9.. Overlap syndrome with COPD asthma ? Bronchodilator treatment as needed 10. GERD ? Patient is on Protonix 40 mg p.o. twice daily discontinued 11. Allergic rhinitis ? Patient is on montelukast?continue 12. Bilateral lower extremity lymphedema ? Apparently resistant to outpatient treatment admitted for inpatient treatment with IV diuretics consult placed wound care nurse 13. Chronic constipation ? Patient is on plecanatide tied with continued 14.. Physical deconditioning - Requested for PT OT eval and nephrology social worker to assist with discharge planning 15. DVT prophylaxis ? SC heparin Time spent in the patient's overall evaluation,decision-making process, review of diagnostic data, adjustment of management, discussion with other providers, nursing nursing and ancillary staff involved in patient's care documentation, 38 Minutes
--- NOTE | 2023-12-10 09:11 | PCM.DC.SUM ---
Providers Date of Admission: 12/07/23 Date of Discharge: 12/10/23 Primary Care Physician: Dr. Bertrand Warner MD Consultations 12/07/23 16:29 Consult: Onc/Wound/nca certified concierge Routine Comment: Reason for Consult:: Stasis wounds/blisters Reason For Visit: HYPOXIA, HF EXAC Diagnosis Discharge Diagnosis (1) Congestive heart failure: Status: Acute Code(s): I50.9 - Heart failure, unspecified Plan Patient is an 83-year-old gentleman with multiple comorbidities admitted with progressive shortness of breath as well as bipedal edema diagnosed with acute decompensated congestive heart failure admitted to a monitored bed for further management 1. Acute on chronic congestive heart failure with preserved ejection fraction ? Echo from 11/16/2022 demonstrated EF of 60%. Managed with diuretics, strict input and output, daily weight, low-sodium diet ? Patient still remains dyspneic at rest. Patient is negative fluid balance of 2.8 L over the past 24 hours. ? 12/10/2023 patient back to baseline patient to be assessed for possible discharge 2. Class III 3 obesity with BMI of 48.9 ? Complicating care weight loss advised next 3. Diabetes mellitus type II -patient's oral hypoglycemics held. Placed on long acting insulin, Accu-Cheks a.c. and at bedtime and covered with sliding scale insulin 4. Hypertension - Blood pressure controlled, home medications continued with dose adjustment as needed 5. Dyslipidemia -Patient is on statin therapy, continued at home dose 6. Coronary artery disease ? With previous CABG and subsequent PCI patient is on guideline directed medical therapy 7. Paroxysmal A-fib ? Rate controlled not on systemic anticoagulation due to risk for falls 8. BPH with lower urinary obstructive symptoms - Patient treated with tamsulosin 9.. Overlap syndrome with COPD asthma ? Bronchodilator treatment as needed 10. GERD ? Patient is on Protonix 40 mg p.o. twice daily discontinued 11. Allergic rhinitis ? Patient is on montelukast?continue 12. Bilateral lower extremity lymphedema ? Apparently resistant to outpatient treatment admitted for inpatient treatment with IV diuretics consult placed wound care nurse 13. Chronic constipation ? Patient is on plecanatide tied with continued 14.. Physical deconditioning - Requested for PT OT eval and licensed social worker to assist with discharge planning 15. DVT prophylaxis ? SC heparin Time spent in the patient's overall evaluation,decision-making process, review of diagnostic data, adjustment of management, discussion with other providers, nursing nursing and ancillary staff involved in patient's care documentation, 38 Minutes Medications at Discharge Home Medications aspirin 81 mg chewable tablet 81 mg PO DAILY HEALTH MAINTENANCE 06/09/13 nitroglycerin 0.4 mg sublingual tablet 0.4 mg sublingual Q5M PRN Chest Pain 06/09/13 magnesium oxide 400 mg (241.3 mg magnesium) tablet 400 mg PO DAILY MAGNESIUM 10/07/15 atorvastatin 80 mg tablet 80 mg PO QHS HLD 08/05/18 cholecalciferol (vitamin D3) 50 mcg (2,000 unit) capsule 2,000 unit PO BID SUPPLEMENT 11/24/19 fluticasone propionate 50 mcg/actuation nasal spray,suspension 2 spray NASAL DAILY ALLERGIES 11/24/19 montelukast 10 mg tablet 10 mg PO QHS ALLERGIES 11/24/19 glimepiride 4 mg tablet 4 mg PO BREAKFAST DM 01/09/21 mirtazapine 15 mg tablet 15 mg PO QHS mental health 01/09/21 tamsulosin 0.4 mg capsule 0.4 mg PO QHS prostate 01/09/21 docusate sodium 100 mg capsule 100 mg PO DAILY stool softner 07/15/21 clopidogrel 75 mg tablet 75 mg PO DAILY prevent clots #30 tabs 11/17/22 fluticasone furoate 200 mcg-vilanterol 25 mcg/dose inhalation powder (Breo Ellipta) 1 inh inhalation DAILY Check with primary doctor 11/17/22 isosorbide mononitrate 30 mg tablet,extended release 24 hr 30 mg PO DAILY bp, heart #30 tabs 11/17/22 losartan 25 mg tablet 25 mg PO QHS Check with primary doctor 11/17/22 metoprolol succinate 25 mg tablet,extended release 24 hr 25 mg PO DAILY Check with primary doctor 11/17/22 sitagliptin phosphate 100 mg tablet (Januvia) 100 mg PO DAILY Check with primary doctor 11/17/22 omega-3 fatty acids-vitamin E 1,000 mg capsule 1 cap PO DAILY supplement 12/03/22 calcium carbonate 600 mg-vitamin D3 5 mcg (200 unit) tablet (Calcium 600 + D(3)) 1 tab PO BID supplement 06/09/23 pantoprazole 40 mg tablet,delayed release 40 mg PO BID GERD 06/09/23 metformin 1,000 mg tablet 1,000 mg PO BID blood glucose 06/20/23 acetaminophen 325 mg tablet 650 mg (2 x 325 mg) PO Q6H PRN PRN Pain 1-10 Or Fever>100.7 #0 tabs 06/25/23 insulin lispro 100 unit/mL subcutaneous pen (Humalog KwikPen (U-100) Insulin) See Protocol subcut ACHS #0 mL 06/25/23 spironolactone 50 mg tablet 50 mg PO DAILY directic #0 tabs 06/25/23 plecanatide 3 mg tablet (Trulance) 3 mg PO DAILY chronic constipation 30 days #30 tabs 06/28/23 buspirone 15 mg tablet 15 mg PO TID mood 10/25/23 mirabegron 50 mg tablet,extended release 24 hr (Myrbetriq) 50 mg PO DAILY . 12/07/23 pantoprazole 40 mg tablet,delayed release (Protonix) 40 mg PO BID GERD 12/07/23 sitagliptin phosphate 100 mg tablet (Januvia) 100 mg PO DAILY blood glucose 12/07/23 furosemide 80 mg tablet (Lasix) 80 mg PO BID directic #60 tabs 12/10/23 guaifenesin 1,200 mg tablet, extended release 12 hr (Mucinex) 1,200 mg PO BID #30 tabs 12/10/23 Physical Exam Narrative GENERAL: cooperative HEENT: Atraumatic; normocephalic EYES; Anicteric, Normal Conjunctiva NECK; supple, normal thyroid, RESPIRATORY: Diminished to auscultation CARDIOVASCULAR: Regular S1 S2, GI: soft, normoactive bowel sounds, : No Renal angle tenderness; EXTREMITIES: Bilateral lymphedema MUSCULOSKELETAL: no muscle wasting NEURO: Awake; no lateralizing signs. SKIN: No Rash PSYCH; Flat affect Weight / BMI Weight Weight: 159.3 kg Body Mass Index (BMI) 47.6 ABG / Lab / Microbiology Data 12/10/23 05:52 12/10/23 05:52 Laboratory: Laboratory Results - last 24 hr 12/09/23 06:31: POC Glucose 127 H 12/09/23 10:13: WBC 9.0, RBC 4.24 L, Hgb 11.9 L, Hct 38.0 L, MCV 89.6, MCH 28.1, MCHC 31.3 L, RDW Std Deviation 51.4 H, RDW Coeff of Yue 15.7 H, Plt Count 209, MPV 9.7, Immature Gran % (Auto) 0.400, Neut % (Auto) 72.8 H, Lymph % (Auto) 11.8 L, [place] % (Auto) 10.2 H, Eos % (Auto) 4.2, Baso % (Auto) 0.6, Absolute Neuts (auto) 6.5, Absolute Lymphs (auto) 1.06, Nucleated RBC % 0, Sodium 136, Potassium 3.8, Chloride 100, Carbon Dioxide 32.0, Anion Gap 4 L, BUN 34 H, Creatinine 1.27, Estim Creat Clear Calc 70.66, Est GFR (MDRD) Af Amer 70, Est GFR (MDRD) Non-Af 58 L, BUN/Creatinine Ratio 26.8 H, Glucose 265 H, Calcium 8.7, Phosphorus 3.9, Magnesium 2.2 12/09/23 11:26: POC Glucose 309 H 12/09/23 16:26: POC Glucose 258 H 12/09/23 21:11: POC Glucose 264 H 12/10/23 05:52: WBC 8.6, RBC 4.15 L, Hgb 11.5 L, Hct 37.4 L, MCV 90.1, MCH 27.7, MCHC 30.7 L, RDW Std Deviation 51.7 H, RDW Coeff of Yue 15.7 H, Plt Count 231, MPV 9.7, Immature Gran % (Auto) 0.400, Neut % (Auto) 69.8, Lymph % (Auto) 12.7 L, [place] % (Auto) 12.3 H, Eos % (Auto) 4.3, Baso % (Auto) 0.5, Absolute Neuts (auto) 6.0, Absolute Lymphs (auto) 1.09, Nucleated RBC % 0, Sodium 138, Potassium 3.8, Chloride 100, Carbon Dioxide 34.0 H, Anion Gap 4 L, BUN 28 H, Creatinine 1.10, Estim Creat Clear Calc 80.76, Est GFR (MDRD) Af Amer 82, Est GFR (MDRD) Non-Af 68, BUN/Creatinine Ratio 25.5 H, Glucose 164 H, Calcium 8.5 12/10/23 06:27: POC Glucose 159 H Microbiology: Microbiology 12/08/23 13:35 Sputum, Expectorated/Coughed Gram Stain - Final 12/08/23 13:35 Sputum, Expectorated/Coughed Respiratory Culture - Final Serratia marcescens 12/07/23 16:05 Mucosa - Nose Respiratory Panel (PCR) - Final 12/07/23 16:40 Urine, Random Legionella Antigen - Final 12/07/23 16:40 Urine, Random Streptococcus pneumoniae Antigen (M - Final Meaningful Use Info Meaningful Use Meaningful Use Diagnoses (Choose all that apply): CHF CHF CIELO/ARB ordered at discharge?: Yes Documented LVEF (%): 60 Ischemic Stroke Statin Dosing Therapy Reference: STATIN DOSE THERAPY REFERENCE: * Patients > 75 years receive moderate or high dose statin therapy. * Patients 75 years or YOUNGER should receive HIGH intensity statin dose unless contraindicated. You will be required to document reason for non-treatment if statin daily dose does not meet guidelines. HIGH DOSE STATIN THERAPY DAILY Atorvastatin > than or = to 40 mg Rosuvastatin > than or = to 20 mg Amlodipine + Atorvastatin > than or = to 2.5/40 mg Ezetimibe + Simvastatin 10/80 mg Simvastatin 80mg Discharge Plan Admission Admit Date/Time: 12/07/23 14:02 Attending Provider: Gustavo Ordonez Primary Care Provider: Bertrand Warner Consulting Providers: Magdalena Grace Discharge Orders/Prescriptions Prescriptions: New guaifenesin [Mucinex] 1,200 mg tablet extended release 12hr 1,200 mg PO BID Qty: 30 0RF Continued buspirone 15 mg tablet 15 mg PO TID nitroglycerin 0.4 MG tablet 0.4 mg sublingual Q5M PRN (Reason: Chest Pain) Patient Comments: CHEST aspirin 81 MG tablet,chewable 81 mg PO DAILY Patient Comments: HEART HEALTH magnesium oxide 400 MG tablet 400 mg PO DAILY Patient Comments: MAGNESIUM SUPPLEMENT atorvastatin 80 MG tablet 80 mg PO QHS montelukast 10 MG tablet 10 mg PO QHS fluticasone propionate 1 SPRAY spray,suspension 2 spray NASAL DAILY cholecalciferol (vitamin D3) 2,000 UNIT capsule 2,000 unit PO BID tamsulosin 0.4 mg Capsule 0.4 mg PO QHS mirtazapine 15 mg Tablet 15 mg PO QHS glimepiride 4 mg Tablet 4 mg PO BREAKFAST docusate sodium 100 MG capsule 100 mg PO DAILY clopidogrel 75 mg Tablet 75 mg PO DAILY Qty: 30 0RF isosorbide mononitrate 30 mg Tablet Extended Release 24 Hr 30 mg PO DAILY Qty: 30 0RF fluticasone furoate-vilanterol [Breo Ellipta] 200-25 mcg/dose blister with device 1 inh INHALATION DAILY losartan 25 mg tablet 25 mg PO QHS Rx Instructions: HOLD IF SYSTOLIC <100 metoprolol succinate 25 mg tablet extended release 24 hr 25 mg PO DAILY Rx Instructions: HOLD hr <55 HOLD SYSTOLIC <95 Januvia 100 mg tablet 100 mg PO DAILY omega-3 fatty acids-vitamin E 1,000 mg Capsule 1 cap PO DAILY metformin 1,000 mg tablet 1,000 mg PO BID calcium carbonate-vitamin D3 [Calcium 600 + D(3)] 600 mg-5 mcg (200 unit) tablet 1 tab PO BID pantoprazole 40 mg tablet,delayed release (DR/EC) 40 mg PO BID insulin lispro [Humalog KwikPen Insulin] 100 unit/mL Insulin Pen See Protocol subcut ACHS Qty: 0 0RF Protocol: 4. Sliding Scale Insulin High-Med Dosing Condition: 150-199 mg/dl = 2 units Condition: 200-259 mg/dl = 4 units Condition: 260-324 mg/dl = 6 units Condition: 325-374 mg/dl = 8 units Condition: 375-409 mg/dl = 10 units Condition: 410-449 mg/dl = 11 units Condition: Greater than 449 call physician Protocol Text: - Use for Total Daily Dose of Insulin 56-80 units - Patient who are insulin resistant or septic HIGH MEDIUM DOSING ALGORITHM acetaminophen 325 mg Tablet 650 mg PO Q6H PRN PRN (Reason: Pain 1-10 Or Fever>100.7) Qty: 0 0RF spironolactone 50 mg Tablet 50 mg PO DAILY Qty: 0 0RF Januvia 100 mg tablet 100 mg PO DAILY Myrbetriq 50 mg tablet extended release 24 hr 50 mg PO DAILY pantoprazole [Protonix] 40 mg tablet,delayed release (DR/EC) 40 mg PO BID furosemide [Lasix] 80 mg tablet 80 mg PO BID Qty: 60 0RF Trulance 3 mg tablet 3 mg PO DAILY 30 Days Qty: 30 6RF Referrals / Follow Up: Bertrand Warner MD [Primary Care Provider] - Disposition Disposition (needs filled in before D/C Order can be placed): Home, Self Care Charges/Coding Visit Charges Inpatient E&M: 15245 Disch Hosp >30min
--- NOTE | 2023-12-10 09:45 | PHA.DC.MR.R ---
Pharmacy [place] Med Reconciliation Pharmacy Service has performed discharge medication reconciliation for this patient. The patient's discharge medication list was reviewed for discrepancies and discrepancies were resolved. Medications at Discharge Home Medications aspirin 81 mg chewable tablet 81 mg PO DAILY HEALTH MAINTENANCE 06/09/13 nitroglycerin 0.4 mg sublingual tablet 0.4 mg sublingual Q5M PRN Chest Pain 06/09/13 magnesium oxide 400 mg (241.3 mg magnesium) tablet 400 mg PO DAILY MAGNESIUM 10/07/15 atorvastatin 80 mg tablet 80 mg PO QHS HLD 08/05/18 cholecalciferol (vitamin D3) 50 mcg (2,000 unit) capsule 2,000 unit PO BID SUPPLEMENT 11/24/19 fluticasone propionate 50 mcg/actuation nasal spray,suspension 2 spray NASAL DAILY ALLERGIES 11/24/19 montelukast 10 mg tablet 10 mg PO QHS ALLERGIES 11/24/19 glimepiride 4 mg tablet 4 mg PO BREAKFAST DM 01/09/21 mirtazapine 15 mg tablet 15 mg PO QHS mental health 01/09/21 tamsulosin 0.4 mg capsule 0.4 mg PO QHS prostate 01/09/21 docusate sodium 100 mg capsule 100 mg PO DAILY stool softner 07/15/21 clopidogrel 75 mg tablet 75 mg PO DAILY prevent clots #30 tabs 11/17/22 fluticasone furoate 200 mcg-vilanterol 25 mcg/dose inhalation powder (Breo Ellipta) 1 inh inhalation DAILY Check with primary doctor 11/17/22 isosorbide mononitrate 30 mg tablet,extended release 24 hr 30 mg PO DAILY bp, heart #30 tabs 11/17/22 losartan 25 mg tablet 25 mg PO QHS Check with primary doctor 11/17/22 metoprolol succinate 25 mg tablet,extended release 24 hr 25 mg PO DAILY Check with primary doctor 11/17/22 sitagliptin phosphate 100 mg tablet (Januvia) 100 mg PO DAILY Check with primary doctor 11/17/22 omega-3 fatty acids-vitamin E 1,000 mg capsule 1 cap PO DAILY supplement 12/03/22 calcium carbonate 600 mg-vitamin D3 5 mcg (200 unit) tablet (Calcium 600 + D(3)) 1 tab PO BID supplement 06/09/23 pantoprazole 40 mg tablet,delayed release 40 mg PO BID GERD 10/18/23 metformin 1,000 mg tablet 1,000 mg PO BID blood glucose 06/20/23 acetaminophen 325 mg tablet 650 mg (2 x 325 mg) PO Q6H PRN PRN Pain 1-10 Or Fever>100.7 #0 tabs 06/25/23 insulin lispro 100 unit/mL subcutaneous pen (Humalog KwikPen (U-100) Insulin) See Protocol subcut ACHS #0 mL 06/25/23 spironolactone 50 mg tablet 50 mg PO DAILY directic #0 tabs 06/25/23 plecanatide 3 mg tablet (Trulance) 3 mg PO DAILY chronic constipation 30 days #30 tabs 06/28/23 buspirone 15 mg tablet 15 mg PO TID mood 10/25/23 mirabegron 50 mg tablet,extended release 24 hr (Myrbetriq) 50 mg PO DAILY . 12/07/23 furosemide 80 mg tablet (Lasix) 80 mg PO BID directic #60 tabs 12/10/23 guaifenesin 1,200 mg tablet, extended release 12 hr (Mucinex) 1,200 mg PO BID #30 tabs 12/10/23
[2023-12-10 10:17] VITALS: BP 121/54; PULSE 59; RESP 16; TEMP 36.9; O2SAT 97
[2023-12-10] MEDS: Fluticasone 0.05% 1 SPRAY NASAL.SRY 2 SPRAY NASAL (10:21)
[2023-12-10 10:23] VITALS: BP 121/54; PULSE 59
[2023-12-10] MEDS: Metoprolol(XL)Succ 25 MG Tablet PO (10:23)
[2023-12-10] MEDS: Docusate Sodium 100 MG Capsule PO (10:23)
[2023-12-10] MEDS: Clopidogrel Bisulfate 75 MG Tablet PO (10:23)
[2023-12-10] MEDS: Isosorbide Mononitrate 30 MG Tablet PO (10:23)
[2023-12-10] MEDS: Pantoprazole Sodium 40 MG Tablet PO (10:23)
[2023-12-10] MEDS: Aspirin 81 MG TAB.CHEW PO (10:24)
[2023-12-10] MEDS: Magnesium Chloride 64 MG Delay Rel.Tablet 128 MG PO (10:24)
[2023-12-10] MEDS: Spironolactone 50 MG Tablet PO (10:24)
[2023-12-10] MEDS: Acetaminophen 325 MG Tablet 650 MG PO (10:28)
[2023-12-10] MEDS: guaiFENesin 10 ML UDC (200MG/10ML) 20 ML PO (10:29)
--- NOTE | 2023-12-10 10:29 | CASEMGMT ---
Patient is ready for discharge back to [facility]. BREEZY faxed d/c orders to [facility]. BREEZY also called [facility] and left a voice mail letting them know patient will be returning today and will be picked up at 1130. BREEZY notified RN, patient, and assistant secretary. BREEZY also sent an order for home PT/OT to [facility]. Plan: d/c back to [facility]. Physicians will transport patient via wheelchair van. Stacy TSANG
[2023-12-10 10:43] VITALS: O2SAT 85; O2SAT 90; O2SAT 94
--- NOTE | 2023-12-10 11:37 | CASEMGMT ---
SW faxed updated d/c instructions reflecting 2L O2 continuous as well as the order from [employer]. SW also faxed the order for PT/OT. SW included all of this in patient's packet as well. Stacy Haddad MSW MICROBIOLOGY LABORATORY MANAGER
--- NOTE | 2023-12-10 12:00 | CASEMGMT ---
RN indicated she called report to [facility] and they were upset that patient is on his way back and that patient does not have O2. SW called [facility] and there was no answer. BREEZY left a voice mail letting [facility] know that patient stated he has O2 from [employer] and [facility] SW left SW's name and phone number for a return call. Stacy Haddad SOFTBALL COACH SHARAN
--- NOTE | 2023-12-10 12:00 | NURSING ---
[facility] executive administrative asst[facility] & Steph adamst director at [phone].
--- NOTE | 2023-12-10 14:20 | CASEMGMT ---
BREEZY attempted to call [facility] again. There was no answer again. Stacy Haddad RESTAURANT CREW PERSON SHARAN
== END 2023-12-10 11:51 | disposition home or self-care (01) | DRG 291 ==
LOC: ED 14:01 → PCU 14:30
PROVIDERS: Admitting Provider Family Medicine; Emergency Provider Emergency Medicine; PCP Family Medicine; Visit Provider Internal Medicine
DX: I13.0 Hypertensive heart and chronic kidney disease with heart failure and stage 1 through stage 4 chronic kidney disease, or unspecified chronic kidney disease (principal); I50.33 Acute on chronic diastolic (congestive) heart failure; L97.819 Non-pressure chronic ulcer of other part of right lower leg with unspecified severity; L97.829 Non-pressure chronic ulcer of other part of left lower leg with unspecified severity; N13.8 Other obstructive and reflux uropathy; I83.018 Varicose veins of right lower extremity with ulcer other part of lower leg; I83.028 Varicose veins of left lower extremity with ulcer other part of lower leg; E11.22 Type 2 diabetes mellitus with diabetic chronic kidney disease; D64.9 Anemia, unspecified; E11.59 Type 2 diabetes mellitus with other circulatory complications; J44.9 Chronic obstructive pulmonary disease, unspecified; E66.01 Morbid (severe) obesity due to excess calories; Z79.4 Long term (current) use of insulin; I48.0 Paroxysmal atrial fibrillation; J30.9 Allergic rhinitis, unspecified; I25.10 Atherosclerotic heart disease of native coronary artery without angina pectoris; G47.33 Obstructive sleep apnea (adult) (pediatric); I89.0 Lymphedema, not elsewhere classified; K21.9 Gastro-esophageal reflux disease without esophagitis; I87.2 Venous insufficiency (chronic) (peripheral); E78.5 Hyperlipidemia, unspecified; N18.2 Chronic kidney disease, stage 2 (mild); F41.8 Other specified anxiety disorders; K59.09 Other constipation; Z95.0 Presence of cardiac pacemaker; Z79.84 Long term (current) use of oral hypoglycemic drugs; Z79.82 Long term (current) use of aspirin; Z79.51 Long term (current) use of inhaled steroids; N40.1 Benign prostatic hyperplasia with lower urinary tract symptoms; Z99.89 Dependence on other enabling machines and devices; Z85.46 Personal history of malignant neoplasm of prostate; Z79.899 Other long term (current) drug therapy; Z79.02 Long term (current) use of antithrombotics/antiplatelets; Z95.5 Presence of coronary angioplasty implant and graft; Z96.643 Presence of artificial hip joint, bilateral; Z90.49 Acquired absence of other specified parts of digestive tract; Z95.1 Presence of aortocoronary bypass graft; R09.02 Hypoxemia; Z79.01 Long term (current) use of anticoagulants; R53.81 Other malaise
CPT/HCPCS: 36415; 71045; 71275; 80048; 80053; 80061; 80076; 82962; 83735; 83880; 84100; 84145; 84443; 84484; 85025; 85610; 85730; 87070; 87077; 87186; 87205; 87449; 87633; 93005; 93306; 94002; 94003; 94640; 94668; 97162; 97166; 97530; 97535; 97802; 99252; 99283; Q9957; Q9967; A4216; C8929; G0463; J1940

== ENCOUNTER 2024-01-03 08:13 | Day surgery (SDC) | payer MEDICARE, MEDICAID, SELFPAY ==
[2024-01-03] VITALS (18 sets, daily range): BP systolic 88–168; BP diastolic 34–86; PULSE 61–78; RESP 14–20; TEMP 35.7–36.8; O2SAT 87–96; BMI 49.6
[2024-01-03] MEDS: Lactated Ringers 1,000 ML 15 ML IV (08:39)
[2024-01-03 09:00] LABS: Bedside Glucose 132 mg/dL (74-106)
--- NOTE | 2024-01-03 09:45 | EGD_PTH ---
PATIENT: LINCOLN KENDRICK LOC: EN U#:[id number] AGE/SX: 83/M ROOM: RE01/03/[address]: Dr. Eagle Domingo DO : 1940 BED: DIS: 01/03/2024 SPEC #: [id number] RECD: 01/03/24 11:07 STATUS: DORETHA JONNY #: [id number] CAROLINA: 01/03/24 09:[address]: Eagle Domingo DEPT: SURGICAL PATHOLOGY RECD BY: Marcus Clark ENTERED: 01/03/24 13:32 SP TYPE: EGD BIOPSY NALDO DR: Dr. Bertrand Warner MD Tissues: A - Duodenum, NOS B - Gastric mucous membrane Procedures: Surgery Specimen Level IV HEADER OPERATION: EGD PRE-OP DIAGNOSIS: Constipation, GERD TISSUE SUBMITTED: A- Duodenum biopsy, B- Gastric antrum biopsy MICROSCOPIC DIAGNOSIS A. Duodenum, biopsy: No pathologic change. B. Gastric antrum, biopsy: Chronic gastritis. / 01/05/24 COMMENT B. The results of immunohistochemistry for Helicobacter pylori will be reported separately ([id number]). MICROSCOPIC DESCRIPTION Slides are reviewed. GROSS DESCRIPTION A. Received in fixative is one container labeled with the patient's name and designated Duodenum biopsy. The specimen consists of two irregular fragments of light claros soft tissue that in aggregate measure 0.5 x 0.3 x 0.1 cm. The specimen is totally submitted in one cassette. B. Received in fixative is one container labeled with the patient's name and designated Gastric antrum biopsy. The specimen consists of one irregular fragment of light claros soft tissue that measures 0.5 x 0.5 x 0.1 cm. The specimen is totally submitted in one cassette / 01/03/2024 TC:3 CPT:25122e1
--- NOTE | 2024-01-03 09:45 | IMM_PTH ---
PATIENT: LINCOLN KENDRICK LOC: EN U#:[id number] AGE/SX: 83/M ROOM: RE01/03/[address]: Dr. Eagle Domingo DO : 1940 BED: DIS: 01/03/2024 SPEC #: [id number] RECD: 01/04/24 09:18 STATUS: DORETHA REMonico #: [id number] CAROLINA: 01/03/24 09:[address]: Eagle Domingo DEPT: IMMUNOHISTOCHEMISTRY RECD BY: Luis Gamboa ENTERED: 01/04/24 09:18 SP TYPE: IMMUNO OTHR DR: Dr. Bertrand Warner MD Tissues: B - Gastric mucous membrane Procedures: H Pylori (initial) PHYSICIAN & INSTITUTION [place] [address] SPECIMEN INFORMATION: Tissue Source: B- Gastric antrum biopsy Clinical Info: Constipation, GERD Specimen Number: [id number] CPT code: 92726 METHODOLOGY: Deparaffinized sections of prefer/formalin-fixed tissue or PAP/DQ stained slides are incubated with monoclonal/polyclonal antibodies/oligonucleotide probes. Localization is made via biotin free immunoperoxidase method. Appropriate controls are performed and reacted as expected. Results on target cell population are indicated in the following table: RESULTS: ANTIBODY / CLONE RESULT Block B H Pylori (polyclonal) negative These tests were developed and their performance characteristics determined by [facility]. They may not have been cleared or approved by the U.S. Food and Drug Administration. The FDA has determined that such clearance or approval is not necessary. The above immunohistochemical/dualISH markers are ordered and reviewed by the Pathologist. INTERPRETATION: Gastric antrum, biopsy: Negative for Helicobacter pylori organisms. ELDON/ 01/05/2024
--- NOTE | 2024-01-03 09:55 | PCM.HP.BLA ---
History and Physical Date of Admission: 01/03/24 LINCOLN KENDRICK, is a 83 M who presents to the office today for follow up. PMH prostate cancer s/p surgical removal; pancreatic mass; s/p cholecystectomy 2019; DMII; pacemaker placement; lung nodule. [facility] ED 07.15.21 with food bolus, when he got to ED he was able to pass liquids. Discharged without dysphagia intervention. *BGI established 3.. for ED f/u. Has had food sticking before but has not required emergent intervention until ED visit. Continues to have dysphagia with pills/food 2-3 times a week. BM occur most day of the week with straining and normal stool consistency with use of Dulcolax; right sided abdominal pain on days of increased constipation. ?EGD 6.11.11?LA Grade A esophagitis; mild Schatzki ring, Savary 60F; two gastric hyperplastic polyps, bleeding, heater probe. ?Start PPI taper OV 6. stop dicyclomine; start MiraLAX QD and oil OV 8.. constipation continues without change despite medication use. ?CT abd/pel 9..?hepatic steatosis, 1.5cm stable cyst; s/p cholecystectomy; moderate fecal burden OV 10..22 stop mineral oil. Start lactulose BID OV 12..22 stop lactulose (promoted BM but caused RLQ discomfort), Trulance samples OV 2..23 continue Trulance and PPI OV 9..23 Trulance continues and have been having normal BM pattern; intermittent abdominal pain lasting seconds OV 3.4.24 Pt well since visit. Continues Trulance with daily BM. Every once in a while will have diarrhea. Does still have some bloating every so often. Is not having any abdominal pain or heartburn. ? ROS Const Constitutional: Positive for fatigue ENT ENT: No difficulty swallowing Gastro GI: Positive for constipation and diarrhea; No abdominal pain, belching, bloating, change in bowel habits, change in stool character, coffee ground emesis, cramping, heartburn, difficulty swallowing, feeling full early, excessive flatus, incontinent of stools, Vomiting blood/hematemesis, Blood in stool, loose stools, Black,tarry stools, nausea/dyspepsia, pain with swallowing, vomiting or other Musc Musculoskeletal: Positive for back pain, muscle cramps, stiffness and Arthritis; No joint pain Skin Skin: No yellowing of the eye or itchy eyes Psych Psychiatric: Positive for anxiety and No depression Endo Endocrine: Positive for fatigue Aller/Imm Allergy/Immunologic: No itchy eyes Jesus/Lymp Hematologic/Lymphatic: Positive for easy bruising; No easy bleeding Exam Const General: cooperative and comfortable Nutritional Appearance: obese Orientation: alert, awake and oriented x3 Quality Reporting Tobacco Screening ([facility] 138) Smoking Status: Never smoker Assessment and Plan Assessment and Plan (1) Constipation: Status: Inactive Plan: Continue Trulance 3 mg daily with the addition of supplemental fiber Much less frequent RUQ pain, might be gas pain, only lasts a split second f/u 6 mos (2) GERD (gastroesophageal reflux disease): Status: Inactive Qualifiers: Esophagitis presence: with esophagitis Plan: We will schedule him for an upper endoscopy to evaluate his upper GI tract to see if there is any etiology to his abdominal pain. He does have a history of peptic ulcer disease secondary to nonsteroidals and concomitant antiplatelet medicines. continue pantoprazole 40 mg QAM I have examined the patient and the H&P has been reviewed. There are no clinical changes since date of exam.
--- NOTE | 2024-01-03 10:14 | OP.EGD_ITS ---
Patient Name: Mayco Dela Cruz Procedure Date: 01/03/2024 9:54 AM Date of : 1940 Age: 83 Procedure: Upper GI endoscopy Indications: Epigastric abdominal pain Providers: Eagle Domingo DO Medicines: Monitored Anesthesia Care Patient Profile: This is an 83 year old male. Refer to note in patient chart for documentation of history and physical. Patient has symptoms of acute epigastric abdominal pain and chronic epigastric abdominal pain. Complications: No immediate complications. Procedure: Pre-Anesthesia Assessment: - Prior to the procedure, a History and Physical was performed, and patient medications and allergies were reviewed. The patient is competent. The risks and benefits of the procedure and the sedation options and risks were discussed with the patient. All questions were answered and informed consent was obtained. Patient identification and proposed procedure were verified by the physician in the pre-procedure area. Mental Status Examination: alert and oriented. Airway Examination: normal oropharyngeal airway and neck mobility. Respiratory Examination: clear to auscultation. CV Examination: normal. Prophylactic Antibiotics: The patient does not require prophylactic antibiotics. Prior Anticoagulants: The patient has taken no anticoagulant or antiplatelet agents. ASA Grade Assessment: IV - A patient with severe systemic disease that is a constant threat to life. After reviewing the risks and benefits, the patient was deemed in satisfactory condition to undergo the procedure. The anesthesia plan was to use monitored anesthesia care (MAC). Immediately prior to administration of medications, the patient was re-assessed for adequacy to receive sedatives. The heart rate, respiratory rate, oxygen saturations, blood pressure, adequacy of pulmonary ventilation, and response to care were monitored throughout the procedure. The physical status of the patient was re-assessed after the procedure. After obtaining informed consent, the endoscope was passed under direct vision. Throughout the procedure, the patient's blood pressure, pulse, and oxygen saturations were monitored continuously. The Endoscope was introduced through the mouth, and advanced to the second part of duodenum. The upper GI endoscopy was accomplished without difficulty. The patient tolerated the procedure well. Scope In: 10:04:41 AM Scope Out: 10:07:22 AM Total Procedure Duration Time 0 hours 2 minutes 41 seconds Findings: The examined esophagus was normal. A medium amount of food (residue) was found in the gastric body. Patchy mildly erythematous mucosa without bleeding was found in the gastric antrum. Biopsies were taken with a cold forceps for histology. Verification of patient identification for the specimen was done. Biopsies were taken with a cold forceps for Helicobacter pylori testing. Verification of patient identification for the specimen was done. Estimated blood loss was minimal. Patchy mildly erythematous mucosa without active bleeding and with no stigmata of bleeding was found in the duodenal bulb. Biopsies were taken with a cold forceps for histology. Verification of patient identification for the specimen was done. Estimated blood loss was minimal. Impression: - Normal esophagus. - A medium amount of food (residue) in the stomach. - Erythematous mucosa in the antrum. Biopsied. - Erythematous duodenopathy. Biopsied. Recommendation: - Discharge patient to home. - Resume previous diet. - Continue present medications. - Await pathology results. Procedure Code(s): --- Professional --- 25086, Esophagogastroduodenoscopy, flexible, transoral; with biopsy, single or multiple CPT copyright 2021 [employer]. All rights reserved. The codes documented in this report are preliminary and upon auto radiator specialist review may be revised to meet current compliance requirements. Eagle Domingo DO 01/03/2024 10:14:12 AM This report has been signed electronically. Number of Addenda: 0 Note Initiated On: 01/03/2024 9:54 AM
--- NOTE | 2024-01-03 10:14 | OP.CCLET_ITS ---
01/03/2024 Bertrand Warner MD Re : Upper GI endoscopy procedure for Mayco Dela Cruz Dear Dr. Warner This procedure was performed on Wednesday, January 03, 2024. My impressions and recommendations are as follows: Impressions : - Normal esophagus. - A medium amount of food (residue) in the stomach. - Erythematous mucosa in the antrum. Biopsied. - Erythematous duodenopathy. Biopsied. Recommendations : - Discharge patient to home. - Resume previous diet. - Continue present medications. - Await pathology results. My findings are described in the full procedure note, which is enclosed. If I can be of further assistance, please feel free to contact me at . Sincerely, Eagle Domingo, 01/03/2024 10:14:12 AM This report has been signed electronically.
[2024-01-03] MEDS: Ipratropium/Albuterol Sulfate 3 ML AMPUL.NEB INHALATION (12:39)
--- NOTE | 2024-01-03 13:45 | SUR.PHASEI ---
PATIENT WAS UNABLE TO KEEP O2 SATURATIONS ON ROOM AIR. ANESTHESIA AWARE. I CALLED HIS O2 SUPPLIER LEON TO BRING HIM AND OXYGEN TANK TO THE HOSPITAL SO HE CAN GO HOME. LEON IS GOING TO DELIVER A TANK TO HIM HERE AT THE HOSPITAL.
--- NOTE | 2024-01-03 14:36 | SUR.PHASEII ---
OXYGEN WAS DELIVERED BY PT'S MEDICAL SUPPLIER. [facility] WAS CONTACTED TO PROVIDE THE PT A RIDE HOME.
--- NOTE | 2024-01-03 14:53 | SUR.PHASEII ---
Patient taken by [facility] transporter. on 4l nc by oxygen tank.
== END 2024-01-03 14:54 | disposition home or self-care (01) ==
LOC: EN 08:14 → AC 08:16
PROVIDERS: PCP Family Medicine; Referring Provider Family Medicine; Visit Provider Internal Medicine Gastroenterology
PROC: 0DJ08ZZ Inspection of Upper Intestinal Tract, Via Natural or Artificial Opening Endoscopic (ICD-10-PCS; CPT 43235; principal; 2024-01-03 09:40)
DX: K29.50 Unspecified chronic gastritis without bleeding (principal); K59.00 Constipation, unspecified; R10.13 Epigastric pain; F41.9 Anxiety disorder, unspecified; R53.83 Other fatigue; R23.3 Spontaneous ecchymoses; K21.9 Gastro-esophageal reflux disease without esophagitis
CPT/HCPCS: 43239; J7120; 82962; 88305; 88342; 94640; J2405

== ENCOUNTER 2024-01-04 14:36 | Inpatient (IN) | payer MEDICARE, MEDICAID, SELFPAY ==
[2024-01-04] VITALS (8 sets, daily range): BP systolic 106–135; BP diastolic 70–94; PULSE 60–67; RESP 18–28; TEMP 36.4–36.5; O2SAT 91–98; BMI 49.9
--- NOTE | 2024-01-04 15:04 | ED.VIS.DYS ---
HPI History of Present Illness Chief Complaint: Edema Informant: patient Onset/Context/Timing Onset: Days Context: gradual Timing: Continuous Quality: Positive for Dyspnea on exertion Current Severity: Mild Maximum Severity: Mild Worsened by: Exertion Relieved by: Oxygen Associated Symptoms Negative for cough Chest Pain: Positive for None Narrative Narrative: 83-year-old male who lives in assisted living at [facility] as extensive past medical history including CHF, CAD, stent, chronic kidney disease, A-fib and COPD. Patient is on Plavix and aspirin says been taking his meds. Saw his primary care physician's office today he has had increased shortness of breath and weight gain with increased swelling in his legs. Reportedly was 85% at home today he does have oxygen there he also has a new type of oxygen which he was not sure how to use. Primary care physician's office sent him to the ER to be admitted for CHF and failure to thrive and possibly placed in extended-care facility. PE Risk Factors: Positive for Recent immobilization; Negative for Cancer, OCP + Smoking + > 35, Prior DVT or PE, Recent surgery or Recent travel Prior similar symptoms: Yes Recent Illness/Hospitalization: Yes PFSH [facility] Medical History History of echocardiogram Lives in assisted living facility [facility] as ambulation aid Arthritis Dietary restriction On home oxygen therapy Anxiety Depression CKD (chronic kidney disease), stage II Constipation Esophageal stricture Wears glasses Cancer Pancreatic abnormality Thyroid disease Shortness of breath on exertion Cardiology follow-up encounter Dysphagia GERD (gastroesophageal reflux disease) Atrial fibrillation Congestive heart failure (CHF) Diabetes Non-smoker BiPAP (biphasic positive airway pressure) dependence Asthma COPD (chronic obstructive pulmonary disease) Hyperlipemia Pacemaker Hypertension Ulcer of right lower extremity with fat layer exposed Ulcer of left lower extremity with fat layer exposed Chest pain Fall Paroxysmal atrial fibrillation Complete heart block 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 Atherosclerosis of coronary artery of [place] heart without angina pectoris Junctional escape rhythm Chronic venous insufficiency Swelling of lower extremity Edema of both legs Morbid obesity Prostate cancer Venous stasis dermatitis of both lower extremities Cholecystitis CHF (congestive heart failure) Ileus following gastrointestinal surgery Obstructive sleep apnea HLD (hyperlipidemia) DM2 (diabetes mellitus, type 2) Benign essential HTN Home Medications ?Medication ?Instructions ?Recorded ?Last Taken ?Type aspirin 81 mg chewable tablet 81 mg PO DAILY HEALTH MAINTENANCE 06/09/13 12/31/23 History nitroglycerin 0.4 mg sublingual 0.4 mg sublingual Q5M PRN Chest 06/09/13 10/17/16 09:00 History tablet Pain magnesium oxide 400 mg (241.3 mg 400 mg PO DAILY MAGNESIUM 10/07/15 01/02/24 History magnesium) tablet atorvastatin 80 mg tablet 80 mg PO QHS HLD 08/05/18 01/02/24 History cholecalciferol (vitamin D3) 50 2,000 unit PO BID SUPPLEMENT 11/24/19 01/02/24 History mcg (2,000 unit) capsule fluticasone propionate 50 2 spray NASAL DAILY ALLERGIES 11/24/19 01/02/24 History mcg/actuation nasal spray,suspension montelukast 10 mg tablet 10 mg PO QHS ALLERGIES 11/24/19 01/02/24 History glimepiride 4 mg tablet 4 mg PO BREAKFAST DM 01/09/21 01/02/24 History mirtazapine 15 mg tablet 15 mg PO QHS mental health 01/09/21 01/02/24 History tamsulosin 0.4 mg capsule 0.4 mg PO QHS prostate 01/09/21 01/02/24 History docusate sodium 100 mg capsule 100 mg PO DAILY stool softner 07/15/21 01/02/24 History clopidogrel 75 mg tablet 75 mg PO DAILY prevent clots #30 11/17/22 01/01/24 Rx tabs fluticasone furoate 200 1 inh inhalation DAILY Check with 11/17/22 01/02/24 History mcg-vilanterol 25 mcg/dose primary doctor inhalation powder (Breo Ellipta) isosorbide mononitrate 30 mg 30 mg PO DAILY bp, heart #30 tabs 11/17/22 06/20/23 Rx tablet,extended release 24 hr losartan 25 mg tablet 25 mg PO QHS Check with primary 11/17/22 01/02/24 History doctor metoprolol succinate 25 mg 25 mg PO DAILY Check with primary 11/17/22 01/02/24 History tablet,extended release 24 hr doctor calcium carbonate 600 mg-vitamin 1 tab PO BID supplement 06/09/23 01/02/24 History D3 5 mcg (200 unit) tablet (Calcium 600 + D(3)) pantoprazole 40 mg tablet,delayed 40 mg PO DAILY GERD 06/09/23 01/02/24 History release metformin 1,000 mg tablet 1,000 mg PO BID blood glucose 06/20/23 01/02/24 History acetaminophen 325 mg tablet 650 mg (2 x 325 mg) PO Q6H PRN PRN 06/25/23 Unknown Rx Pain 1-10 Or Fever>100.7 #0 tabs spironolactone 50 mg tablet 50 mg PO DAILY directic #0 tabs 06/25/23 01/02/24 Rx plecanatide 3 mg tablet (Trulance) 3 mg PO DAILY chronic constipation 06/28/23 01/02/24 Rx 30 days #30 tabs buspirone 15 mg tablet 15 mg PO TID mood 10/25/23 01/02/24 History mirabegron 50 mg tablet,extended 50 mg PO DAILY . 12/07/23 01/02/24 History release 24 hr (Myrbetriq) furosemide 80 mg tablet (Lasix) 80 mg PO BID directic #60 tabs 12/10/23 01/02/24 Rx furosemide 40 mg tablet 40 mg PO BID 12/30/23 01/02/24 History ibuprofen 600 mg tablet 600 mg PO Q6H PRN PRN pain 12/30/23 Unknown History tramadol 50 mg tablet 50 mg PO Q6H PRN PRN pain 12/30/23 Unknown History Allergy/AdvReac Type Severity Reaction Status Date / Time lisinopril Allergy Unknown Verified 01/03/24 08:40 paroxetine (From Paxil) Allergy NEEDS Verified 01/03/24 08:40 FOLLOW-UP sertraline Allergy Unknown Verified 01/03/24 08:40 enoxaparin (From Lovenox) AdvReac PT UNSURE Verified 01/03/24 08:40 OF REACTION Family History Mother Lung cancer Father CAD (coronary artery disease) Hypertension Heart disease Myocardial infarction Brother Myocardial infarction Hypertension Heart disease CAD (coronary artery disease) Surgical History History of cardiac catheterization History of appendectomy History of coronary artery stent placement S/P CABG x 2 Coronary angioplasty status History of bilateral hip arthroplasty History of cholecystectomy Hx of CABG H/O coronary artery bypass surgery Presence of cardiac pacemaker Status post cholecystectomy Social History household members: none housing: assisted living facility number of children: 0 current occupational status: retired Smoking Status: Never smoker alcohol intake: never substance use type: does not use ROS ROS ED ROS Narrative Shortness of breath. Leg swelling. Weight gain. Review of Systems ROS Unobtainable: Denies due to encephalopathy Constitutional Constitutional ED: Denies chills or fever(s) Eyes Eyes: Denies blurry vision ENT ENT ED: Denies ear pain, rhinorrhea or sore throat Cardiovascular Cardiovascular: Denies chest pain, palpitations or racing heartbeat Respiratory/Chest Respiratory/Chest: Reports dyspnea and dyspnea on exertion; Denies cough Gastrointestinal Gastrointestinal: Denies abdominal pain Genitourinary Genitourinary ED: Denies dysuria or hematuria Musculoskeletal Musculoskeletal: Denies arthralgias or back pain Integumentary Denies abscess or Abrasions Neurologic Neurologic: Denies headache(s) Psychiatric Psychiatric: Denies anxiety or depression Endocrine Endocrinology: Denies cold intolerance, heat intolerance, polydipsia, polyphagia or polyuria Hematologic/Lymphatic Hematologic/Lymphatic: Denies easy bleeding, easy bruising or lymphadenopathy Allergic/Immunologic Allergic/Immunologic ED: Denies mouth swelling, tongue swelling or urticaria EXAM Physical Exam Narrative Exam Narrative: 81-year-old male sitting upright in bed. No distress. Vital signs are stable afebrile. Pulse ox 91% on 2 L. H EENT exam unremarkable. Neck nontender no JVD. Lungs clear to auscultation bilaterally. Diminished in both bases. Heart regular rate about 66. No murmur appreciated. Abdomen soft nontender. Moving all 4 extremities. He does have 1+ pitting edema both lower extremities. Dorsi plantarflexion intact. Normal ancient art curator strength. Neurologically is awake and alert with no focal motor deficits. Const Vital Signs: 01/04/24 14:36 01/04/24 14:43 01/04/24 14:56 Temperature 97.7 F L 97.7 F L Temperature Source Oral Oral Pulse Rate 67 66 Respiratory Rate 28 H 20 H Respiratory Effort Respiratory Pattern Blood Pressure 130/82 H 106/94 H Blood Pressure Mean 98 98 Pulse Ox 94 91 Oxygen Delivery Method Nasal Cannula Nasal Cannula Nasal Cannula Oxygen Flow Rate (L/min) 2 2 2 01/04/24 14:56 01/04/24 16:39 01/04/24 18:00 Temperature Temperature Source Pulse Rate 60 62 Respiratory Rate 18 19 H Respiratory Effort Short of Breath Respiratory Pattern Normal Blood Pressure 122/70 H 135/74 H Blood Pressure Mean 87 94 Pulse Ox 94 93 Oxygen Delivery Method Nasal Cannula Nasal Cannula Oxygen Flow Rate (L/min) 2 2 Positive well nourished, well developed and obese; Negative for cachectic, contractures or unkempt General Appearance ED: well developed and NAD; Negative for unkempt, cachectic, contractures or pallor Nutritional Appearance: obese; Negative for cachectic HEENT Reports moist mucous membranes; Denies dry mucous membranes atraumatic; Negative for trauma or tenderness Mouth ED: No dry mucous membranes Mouth: No dry mucous membranes Eyes PERRL and EOMs intact bilaterally General Eye ED: Negative for pale conjunctiva or scleral icterus Neck no lymphadenopathy, supple, no meningeal signs and no JVD General: Negative for tenderness Lymph Lymphatic: Negative for other Chest Wall Chest: Negative for other Resp normal respiratory effort and clear to auscultation bilaterally Resp Narrative: Diminished in both bases. Effort and Inspection: Negative for pain with movement Auscultation: diminished lung sounds; Negative for rales, rhonchi or wheezes Cardio regular rate, regular rhythm, S1 normal heart sound, S2 normal heart sound and no murmurs Rate: Negative for bradycardia or tachycardic Rhythm: Negative for abnormal rhythm GI non-tender, non-distended and no masses Inspection: Negative for other Auscultation: normoactive bowel sounds Palpation: soft; Negative for tender, guarding or rebound tenderness present Back/Spine no CVA tenderness and normal to inspection General Back: Negative for CVA tenderness Extremity Negative for normal to inspection Extremity Narrative: Bilateral 1+ pitting edema. General Extremety ED: Yes edema; Negative for tenderness General Extremity: edema Neuro oriented x3 and CN's II-XII intact bilaterally Sensorium / Orientation: alert, oriented to person, oriented to place and oriented to time; Negative for orientation impaired, confused, lethargic or stuporous Speech: speech normal Motor Exam: strength 5/5 throughout Psych mental status grossly normal Appearance: Negative for unkempt Attitude: No agitated Mood & Affect: Negative for depressed, anxious or tearful Thought Process: normal thought process Skin no wounds and skin turgor normal Skin Narrative: Chronic lower extremity venous stasis changes. General Skin Exam: Negative for jaundice or pallor Rashes: rashes noted MDM MDM MDM Narrative Medical decision making narrative: 83-year-old male history of CHF with exacerbation of CHF with increased lower extremity swelling. Hypoxic at home. Reportedly needs shelter placement for increased care. Cardiac workup will be performed. I will speak to the hospitalist about admission. Repeat exam unchanged at 6:20 PM. Treated with IV Lasix 40 mg. Patient will be admitted for recurrent CHF and failure to thrive. Lab Data Attestation: I reviewed the patient's lab results. Lab results narrative: CBC shows a white count 8. H&H 11.2 and 38. Platelets 229. Chest x-ray shows cardiomegaly. Prior sternotomy with wires. Right-sided pacemaker defibrillator. Chemistries show gap 4. BUN 36 creatinine 1.31. Glucose 121. Troponin 25. BNP 132. Labs: Laboratory Results - last 24 hr 01/04/24 15:50 WBC 8.0 RBC 4.24 L Hgb 11.2 L Hct 38.0 L MCV 89.6 MCH 26.4 L MCHC 29.5 L RDW Std Deviation 54.4 H RDW Coeff of Yue 17.0 H Plt Count 229 MPV 9.9 Immature Gran % (Auto) 0.600 Neut % (Auto) 68.8 Lymph % (Auto) 12.7 L [place] % (Auto) 13.6 H Eos % (Auto) 3.6 Baso % (Auto) 0.7 Absolute Neuts (auto) 5.5 Absolute Lymphs (auto) 1.02 Nucleated RBC % 0 Sodium 138 Potassium 4.7 Chloride 101 Carbon Dioxide 33.0 H Anion Gap 4 L BUN 36 H Creatinine 1.31 H Est GFR (MDRD) Af Amer 67 Est GFR (MDRD) Non-Af 56 L BUN/Creatinine Ratio 27.5 H Glucose 121 H Calcium 9.4 Troponin I High Sens 25 B-Natriuretic Peptide 132.4 H Radiography Chest X-Ray - ED: 1 View, Read by ED Physician, Read by Radiologist, Mediastinum, Bony Structures, Chronic Changes, Cardiomegaly and CHF Diagnostic Testing: Clinical Impression(s) from Imaging Studies Chest X-Ray 01/04/24 15:25 IMPRESSION: Cardiomegaly and mild degree of CHF. Electronically Signed: Christiano Odom MD at 15:39 EDT , Chest x-ray, portable, single view interpreted both by myself and the radiologist. Shows mild CHF. Cardiomegaly which is chronic. Seen on prior films. Prior sternotomy with wires. Right-sided pacemaker defibrillator. Rhythm Strip Rhythm Strip: Paced Rate: 64 Ectopy: PVC(s) EKG Initial EKG: Attestation: I personally reviewed and interpreted this EKG as follows: Interpretation: Paced Comments: Paced rhythm rate is 64. Occasional PVC. Discharge Plan Triage Chief Complaint: Edema ED Provider: Alphonso Rahman Dx/Rx/DC Orders Prescriptions: No Action buspirone 15 mg tablet 15 mg PO TID nitroglycerin 0.4 MG tablet 0.4 mg sublingual Q5M PRN (Reason: Chest Pain) Patient Comments: CHEST aspirin 81 MG tablet,chewable 81 mg PO DAILY Patient Comments: HEART HEALTH magnesium oxide 400 MG tablet 400 mg PO DAILY Patient Comments: MAGNESIUM SUPPLEMENT atorvastatin 80 MG tablet 80 mg PO QHS montelukast 10 MG tablet 10 mg PO QHS fluticasone propionate 1 SPRAY spray,suspension 2 spray NASAL DAILY cholecalciferol (vitamin D3) 2,000 UNIT capsule 2,000 unit PO BID tamsulosin 0.4 mg Capsule 0.4 mg PO QHS mirtazapine 15 mg Tablet 15 mg PO QHS glimepiride 4 mg Tablet 4 mg PO BREAKFAST docusate sodium 100 MG capsule 100 mg PO DAILY clopidogrel 75 mg Tablet 75 mg PO DAILY Qty: 30 0RF isosorbide mononitrate 30 mg Tablet Extended Release 24 Hr 30 mg PO DAILY Qty: 30 0RF fluticasone furoate-vilanterol [Breo Ellipta] 200-25 mcg/dose blister with device 1 inh INHALATION DAILY losartan 25 mg tablet 25 mg PO QHS Rx Instructions: HOLD IF SYSTOLIC <100 metoprolol succinate 25 mg tablet extended release 24 hr 25 mg PO DAILY Rx Instructions: HOLD hr <55 HOLD SYSTOLIC <95 metformin 1,000 mg tablet 1,000 mg PO BID calcium carbonate-vitamin D3 [Calcium 600 + D(3)] 600 mg-5 mcg (200 unit) tablet 1 tab PO BID pantoprazole 40 mg tablet,delayed release (DR/EC) 40 mg PO DAILY acetaminophen 325 mg Tablet 650 mg PO Q6H PRN PRN (Reason: Pain 1-10 Or Fever>100.7) Qty: 0 0RF spironolactone 50 mg Tablet 50 mg PO DAILY Qty: 0 0RF mirabegron [Myrbetriq] 50 mg tablet extended release 24 hr 50 mg PO DAILY furosemide [Lasix] 80 mg tablet 80 mg PO BID Qty: 60 0RF furosemide 40 mg tablet 40 mg PO BID ibuprofen 600 mg tablet 600 mg PO Q6H PRN PRN (Reason: pain) tramadol 50 mg tablet 50 mg PO Q6H PRN PRN (Reason: pain) Trulance 3 mg tablet 3 mg PO DAILY 30 Days Qty: 30 6RF Primary Care Provider: Bertrand Warner Referrals: Bertrand Warner MD [Primary Care Provider] - Print Language: Kiswahili
--- NOTE | 2024-01-04 15:25 | RAD_ITS ---
STUDY: X-RAY CHEST REASON FOR EXAM: Male, 83 years old. Chest pain and shortness of breath. TECHNIQUE: Single AP portable view of the chest. COMPARISON: Comparison is made with prior study dated December 07, 2023. FINDINGS: EKG electrodes are seen. Vascular congestion and mild degree of CHF. There is no demonstrated pleural abnormality. Sternal cerclage wires and vascular clips are present from a prior sternotomy and coronary artery bypass graft procedure (CABG). Moderate cardiomegaly. A right-sided dual-chamber pacemaker is seen. Normal mediastinum and tj. Normal visualized pulmonary arteries. Normal visualized aortic arch and descending thoracic aorta. There are degenerative changes of the visualized thoracic spine. Normal visualized ribs, clavicles, and shoulders. There is no demonstrated abnormality of the visualized soft tissue structures of the upper abdomen. RAD/Chest 1 View (Portable) IMPRESSION: Cardiomegaly and mild degree of CHF. Electronically Signed: Christiano Odom MD at 15:39 EDT ,
[2024-01-04 16:28] LABS: Absolute Lymphocyte Count 1.02 X10^3/uL (0.83-4.51); Absolute Neutrophil Count 5.5 X10^3/uL (2.0-7.7); Basophil# 0.06 X10^3/uL; Basophil% 0.7 % (0-1); Eosinophil# 0.29 X10^3/uL; Eosinophils% 3.6 % (0-5); Hemoglobin 11.2 g/dL (13.0-16.5); Lymphocyte # 1.02 X10^3/ul (0.83-4.51); Lymphocyte % 12.7 % (19-41); Mean Corp Hgb Conc 29.5 g/dL (32-36); Mean Corpuscular Hgb 26.4 pg (27.0-32.0); Mean Corpuscular Volume 89.6 fL (80-94); Mean Platelet Vol. 9.9 fl (6.2-12.0); Monocyte# 1.09 X10^3/uL; Monocyte% 13.6 % (0-10); NRBC Flagged by Analyzer 0 % (0-5); Neutrophil # 5.51 X10^3/uL (2.7-7.7); Neutrophil % 68.8 % (47-70); Platelet Count 229 K/mm3 (150-450); RBC Distribution Width SD 54.4 fl (35.1-43.9); Red Blood Count 4.24 M/mm3 (4.6-6.2)
[2024-01-04 16:47] LABS: Anion Gap 4 (5-15); BUN 36 mg/dL (7-18); BUN/Creat Ratio 27.5 RATIO (10-20); Calcium,Total 9.4 mg/dL (8.5-10.1); Chloride 101 mmol/L (98-107); Creatinine, Serum 1.31 mg/dL (0.70-1.30); EST Glomerular Filtration Rate 56 mL/min (>60); Est Glom Filt Rate - Afr Amer 67 mL/min (>60); Glucose 121 mg/dL (74-106); Potassium 4.7 mmol/L (3.5-5.1); Sodium Level 138 mmol/L (136-145); Troponin-I HS 25 pg/mL (3.0-78.0)
[2024-01-04 18:05] LABS: BNP,B-Type NATRIURETIC PEPTIDE 132.4 pg/mL (0-100)
--- NOTE | 2024-01-04 18:57 | HP.PCM.HOS_ITS ---
HPI - General General Date of Admission: 01/04/24 Date of Service: 01/04/24 Chief Complaint: Hypoxia unable to effectively use new O2 delivered, Weight gain, Orthopnea, Worsening edema. HPI Narrative The patient is an 82 y/o M w/ PMHx: CKD stage II per GFR trending, Chronic anemia, Asthma/COPD with allergic rhinitis, EDMOND on BIPAP, CAD s/p PCI x 1 and CABG x 2, GERD, HTN, HLD, HFpEF, Hypothyroidism, Diabetes mellitus type II, BPH, Anxiety and Depression, Hx complete HB s/p pacemaker, recent discharge 12/10/23 following evaluation and treatment of acute on chronic heart failure exacerbation with preserved EF with attempts to discharge on 2 L nasal cannula however it was delivered to his assisted living location but unfortunately he did not know how to use it and so it was left on used and although patient reports continued oral diuretics he has gained 7 pounds with recurrent orthopnea, cough productive of white sputum, dyspnea worse with any exertion attempts as well as increasing lower extremity swelling with significant debility and inability to care for himself prompting the assisted living to transition him to the ED for evaluation for acute treatment but also consideration of at least temporary skilled placement. Workup in the ED included T97.7, heart rate 67, BP 130/82, respiratory rate 28, 94% on 2 L once it was placed, most recent repeat vital signs heart rate 62, BP 135/74, respiratory rate 19, 93% on 2 L nasal cannula, CBC with WBC 8.0, 11.2, MCV 89.6, platelet 229 without marked shift, BMP with Comvax at 33, BUN/creatinine 36/1.31, glucose 121, troponin 25, BNP 132.4, EKG with ventricular paced rhythm with no acute evidence of ischemia, chest x-ray with evidence of cardiomegaly and mild degree of CHF. Discussed with ED physician and he noted intention to initiate Lasix 40 mg IV x 1. FOR[facility]LY [facility] Medical History History of echocardiogram Lives in assisted living facility [facility] as ambulation aid Arthritis Dietary restriction On home oxygen therapy Anxiety Depression CKD (chronic kidney disease), stage II Constipation Esophageal stricture Wears glasses Cancer Pancreatic abnormality Thyroid disease Shortness of breath on exertion Cardiology follow-up encounter Dysphagia GERD (gastroesophageal reflux disease) Atrial fibrillation Congestive heart failure (CHF) Diabetes Non-smoker BiPAP (biphasic positive airway pressure) dependence Asthma COPD (chronic obstructive pulmonary disease) Hyperlipemia Pacemaker Hypertension Ulcer of right lower extremity with fat layer exposed Ulcer of left lower extremity with fat layer exposed Chest pain Fall Paroxysmal atrial fibrillation Complete heart block 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 Atherosclerosis of coronary artery of [place] heart without angina pectoris Junctional escape rhythm Chronic venous insufficiency Swelling of lower extremity Edema of both legs Morbid obesity Prostate cancer Venous stasis dermatitis of both lower extremities Cholecystitis CHF (congestive heart failure) Ileus following gastrointestinal surgery Obstructive sleep apnea HLD (hyperlipidemia) DM2 (diabetes mellitus, type 2) Benign essential HTN Home Medications ?Medication ?Instructions ?Recorded ?Last Taken ?Type aspirin 81 mg chewable tablet 81 mg PO DAILY HEALTH MAINTENANCE 06/09/13 12/31/23 History nitroglycerin 0.4 mg sublingual 0.4 mg sublingual Q5M PRN Chest 06/09/13 10/17/16 09:00 History tablet Pain magnesium oxide 400 mg (241.3 mg 400 mg PO DAILY MAGNESIUM 10/07/15 01/02/24 History magnesium) tablet atorvastatin 80 mg tablet 80 mg PO QHS HLD 08/05/18 01/02/24 History cholecalciferol (vitamin D3) 50 2,000 unit PO BID SUPPLEMENT 11/24/19 01/02/24 History mcg (2,000 unit) capsule fluticasone propionate 50 2 spray NASAL DAILY ALLERGIES 11/24/19 01/02/24 History mcg/actuation nasal spray,suspension montelukast 10 mg tablet 10 mg PO QHS ALLERGIES 11/24/19 01/02/24 History glimepiride 4 mg tablet 4 mg PO BREAKFAST DM 01/09/21 01/02/24 History mirtazapine 15 mg tablet 15 mg PO QHS mental health 01/09/21 01/02/24 History tamsulosin 0.4 mg capsule 0.4 mg PO QHS prostate 01/09/21 01/02/24 History docusate sodium 100 mg capsule 100 mg PO DAILY stool softner 07/15/21 01/02/24 History clopidogrel 75 mg tablet 75 mg PO DAILY prevent clots #30 11/17/22 01/01/24 Rx tabs fluticasone furoate 200 1 inh inhalation DAILY Check with 11/17/22 01/02/24 History mcg-vilanterol 25 mcg/dose primary doctor inhalation powder (Breo Ellipta) isosorbide mononitrate 30 mg 30 mg PO DAILY bp, heart #30 tabs 11/17/22 06/20/23 Rx tablet,extended release 24 hr losartan 25 mg tablet 25 mg PO QHS Check with primary 11/17/22 01/02/24 History doctor metoprolol succinate 25 mg 25 mg PO DAILY Check with primary 11/17/22 01/02/24 History tablet,extended release 24 hr doctor calcium carbonate 600 mg-vitamin 1 tab PO BID supplement 06/09/23 01/02/24 History D3 5 mcg (200 unit) tablet (Calcium 600 + D(3)) pantoprazole 40 mg tablet,delayed 40 mg PO DAILY GERD 06/09/23 01/02/24 History release metformin 1,000 mg tablet 1,000 mg PO BID blood glucose 06/20/23 01/02/24 History acetaminophen 325 mg tablet 650 mg (2 x 325 mg) PO Q6H PRN PRN 06/25/23 Unknown Rx Pain 1-10 Or Fever>100.7 #0 tabs spironolactone 50 mg tablet 50 mg PO DAILY directic #0 tabs 06/25/23 01/02/24 Rx plecanatide 3 mg tablet (Trulance) 3 mg PO DAILY chronic constipation 06/28/23 01/02/24 Rx 30 days #30 tabs buspirone 15 mg tablet 15 mg PO TID mood 10/25/23 01/02/24 History mirabegron 50 mg tablet,extended 50 mg PO DAILY . 12/07/23 01/02/24 History release 24 hr (Myrbetriq) furosemide 80 mg tablet (Lasix) 80 mg PO BID directic #60 tabs 12/10/23 01/02/24 Rx furosemide 40 mg tablet 40 mg PO BID 12/30/23 01/02/24 History ibuprofen 600 mg tablet 600 mg PO Q6H PRN PRN pain 12/30/23 Unknown History tramadol 50 mg tablet 50 mg PO Q6H PRN PRN pain 12/30/23 Unknown History Allergy/AdvReac Type Severity Reaction Status Date / Time lisinopril Allergy Unknown Verified 01/03/24 08:40 paroxetine (From Paxil) Allergy NEEDS Verified 01/03/24 08:40 FOLLOW-UP sertraline Allergy Unknown Verified 01/03/24 08:40 enoxaparin (From Lovenox) AdvReac PT UNSURE Verified 01/03/24 08:40 OF REACTION Family History Mother Lung cancer Father CAD (coronary artery disease) Hypertension Heart disease Myocardial infarction Brother Myocardial infarction Hypertension Heart disease CAD (coronary artery disease) Surgical History History of cardiac catheterization History of appendectomy History of coronary artery stent placement S/P CABG x 2 Coronary angioplasty status History of bilateral hip arthroplasty History of cholecystectomy Hx of CABG H/O coronary artery bypass surgery Presence of cardiac pacemaker Status post cholecystectomy Social History household members: none housing: assisted living facility number of children: 0 current occupational status: retired Smoking Status: Never smoker alcohol intake: never substance use type: does not use ROS ROS Narrative Admission Review of Systems: CONSTITUTIONAL: No weight loss, fever, chills, + weakness or fatigue. HEENT: Eyes: No visual loss, blurred vision, double vision or yellow sclerae. Ears, Nose, Throat: No hearing loss, sneezing, congestion, runny nose or sore throat. SKIN: No rash or itching, lesions, wounds except + notable bilateral lower extremity stasis blisters and significant venous stasis skin changes, stasis disease changes. CARDIOVASCULAR:+ Orthopnea, edema, weight gain. No chest pain, chest pressure or chest discomfort, palpitations, syncopal events. RESPIRATORY: + Shortness of breath, mild cough, occasional white sputum production. No wheezing, hemoptysis. GASTROINTESTINAL: No anorexia, nausea, vomiting or diarrhea, abdominal pain, melena, BRBPR. GENITOURINARY: No dysuria, frequency, urgency or retention. NEUROLOGICAL: No headache, dizziness, syncope, paralysis, ataxia, numbness or tingling in the extremities, focal weakness, change in bowel or bladder control, seizure. MUSCULOSKELETAL: + Muscle, back pain, joint pain or stiffness. HEMATOLOGIC: + Chronic anemia, easy bleeding or bruising. LYMPHATICS: No enlarged nodes. No history of splenectomy. PSYCHIATRIC: + History of anxiety and depression. ENDOCRINOLOGIC: No reports of sweating, cold or heat intolerance. No polyuria or polydipsia. ALLERGIES: + History of asthma and allergic rhinitis. Vital Signs Vital Signs Vital Signs: 01/04/24 14:36 01/04/24 14:43 01/04/24 14:56 Temperature 97.7 F L 97.7 F L Temperature Source Oral Oral Pulse Rate 67 66 Respiratory Rate 28 H 20 H Respiratory Effort Respiratory Pattern Blood Pressure 130/82 H 106/94 H Blood Pressure Mean 98 98 Pulse Ox 94 91 Oxygen Delivery Method Nasal Cannula Nasal Cannula Nasal Cannula Oxygen Flow Rate (L/min) 2 2 2 01/04/24 14:56 01/04/24 16:39 01/04/24 18:00 Temperature Temperature Source Pulse Rate 60 62 Respiratory Rate 18 19 H Respiratory Effort Short of Breath Respiratory Pattern Normal Blood Pressure 122/70 H 135/74 H Blood Pressure Mean 87 94 Pulse Ox 94 93 Oxygen Delivery Method Nasal Cannula Nasal Cannula Oxygen Flow Rate (L/min) 2 2 Physical Exam Narrative Physical Examination: General: Awake, alert, oriented x 3 and cooperative, seated upright in ED bed, fatigued but no acute distress. Skin: Normal color, normal turgor, no icterus, no cyanosis except for significant bilateral lower extremity venous stasis skin changes, with notable stasis blisters bilaterally. HEENT: AT/NC, EOMI, PERRLA, MMM, no appreciated carotid bruits, + JVD noted although difficult assessment given thickened neck. Lungs: Diminished, greater bases, distant mild rales, no evidence of any distress, no marked rhonchi or wheezing. Heart: Paced, currently regular rhythm; no gallop, rub audible. Abdomen: Soft, morbidly obese, NTTP, distant normal BS, difficult to assess abdominal distention or HSM secondary to habitus Extremities: No cyanosis, no clubbing, significant bilateral lower extremity pedal to proximal knee edema however complicated by stasis disease as noted, see skin. Neurological: Patient awake, alert, oriented as noted, cognitive function intact; pupils equally reactive to light and accommodation, cranial nerves II- XII grossly normal, moving all 4 extremities, no focal deficits, strength severely globally decreased secondary to acute presentation compounded by underlying comorbidities. Psychiatric: Affect appears fatigued, no acute evidence of depressive or anxiety feelings but does have underlying history. Results Lab / Micro Data 01/04/24 15:50 01/04/24 15:50 Labs: Laboratory Results - last 24 hr 01/04/24 15:50: WBC 8.0, RBC 4.24 L, Hgb 11.2 L, Hct 38.0 L, MCV 89.6, MCH 26.4 L, MCHC 29.5 L, RDW Std Deviation 54.4 H, RDW Coeff of Yue 17.0 H, Plt Count 229, MPV 9.9, Immature Gran % (Auto) 0.600, Neut % (Auto) 68.8, Lymph % (Auto) 12.7 L, [place] % (Auto) 13.6 H, Eos % (Auto) 3.6, Baso % (Auto) 0.7, Absolute Neuts (auto) 5.5, Absolute Lymphs (auto) 1.02, Nucleated RBC % 0, Sodium 138, Potassium 4.7, Chloride 101, Carbon Dioxide 33.0 H, Anion Gap 4 L, BUN 36 H, C reatinine 1.31 H, Est GFR (MDRD) Af Amer 67, Est GFR (MDRD) Non-Af 56 L, B UN/Creatinine Ratio 27.5 H, Glucose 121 H, Calcium 9.4, Troponin I High Sens 25, B-Natriuretic Peptide 132.4 H Rhythm Strip Rhythm Strip: Paced Rate: 64 Ectopy: PVC(s) Imaging Radiology Impression Chest X-Ray 01/04/24 15:25 IMPRESSION: Cardiomegaly and mild degree of CHF. Electronically Signed: Christiano Odom MD at 15:39 EDT , Assessment & Plan Assessment/Plan (1) CHF exacerbation: PLAN: Plan The patient is an 82 y/o M w/ PMHx: CKD stage II per GFR trending, Chronic anemia, Asthma/COPD with allergic rhinitis, EDMOND on BIPAP, CAD s/p PCI x 1 and CABG x 2, GERD, HTN, HLD, HFpEF, Hypothyroidism, Diabetes mellitus type II, BPH, Anxiety and Depression, Hx complete HB s/p pacemaker, recent discharge 12/10/23 following evaluation and treatment of acute on chronic heart failure exacerbation with preserved EF with attempts to discharge on 2 L nasal cannula however it was delivered to his assisted living location but unfortunately he did not know how to use it and so it was left on used and although patient reports continued oral diuretics he has gained 7 pounds with recurrent orthopnea, cough productive of white sputum, dyspnea worse with any exertion attempts as well as increasing lower extremity swelling with significant debility and inability to care for himself prompting the assisted living to transition him to the ED for evaluation for acute treatment but also consideration of at least temporary skilled placement. #1. Adult FTT secondary to Acute Decompensated HFpEF w/ recurrent Hypoxia secondary to failure to use oxygen supplementation correctly: Patient per discussion with ED physician will be administered IV lasix in the ED, will admit to PCU, maintain on cardiac telemetry, obtain cardiac enzyme series, obtain serial EKGs, continue IV lasix diuresis, monitor I/Os, maintain on intake restriction, continue medical therapy, recent TSH normal thus will defer repeat, will obtain mag level. Most recent ECHO noted during recent admission 12/07/23 with normal LV size, moderate concentric LVH, LVEF 55%, LV systolic function normal, wound RN consulted for lower extremity stasis blisters and ongoing care, will place neck Oziel wraps with elevation as patient if able to tolerate, PT/OT/case management consultation for discharge planning and at this point given debility likely will need skilled facility placement. #2. Chronic Kidney Disease Stage II per GFR trending prior: Admission BUN/creatinine 36/1.31, GFR 56, seems to vacillate especially with overload presentation, baseline creatinine primarily 0.9-1.1, will continue to diurese as noted and closely continue to monitor renal function. #3. Bilateral Lower Extremity significant chronic venous stasis disease with chronic stasis ulcers: Will continue treatment as noted above #1, place snug Oziel wraps with elevation, wound RN consulted. #4. CAD: Status post PCI and CABG, continue aspirin, plavix, statin, metoprolol, losartan. #5. PAF: Patient not chronically anticoagulated, continue patient home asa, plavix, metoprolol regimen. EKG upon presentation with ventricular pacing. #6. Chronic COPD/asthma with allergic rhinitis: Will hold home inhalers and in the interim transition to ATC budesonide therapy, PRN albuterol, HOB, IS parameters, continue patient home Singulair and fluticasone regimen. #7. Diabetes mellitus type II: Hold oral home regimen, ADA diet, accu checks w/ ISS. #8. Anxiety and depression: We will continue patient home mirtazapine regimen #9. Hypertension: Will continue home regimen including metoprolol, isosorbide, losartan, spironolactone, IV Lasix as noted, PRN hydralazine. #10. Hyperlipidemia: Continue home statin regimen. #11. History complete heart block: Status post pacemaker placement, encourage continued outpatient follow-up with cardiology as previously arranged. #12. Morbid Obesity: Weight loss and lifestyle changes encouraged. #13. GERD: Will continue patient on PPI. #14. BPH: Will continue patient on Flomax regimen. #15. Chronic normocytic anemia: Admission hemoglobin 11.2, MCV and 89.6, most recent baseline of appears 11-12 range, stable, will continue to trend. #16. EDMOND: BiPAP nightly. #17. DVT prophylaxis: Heparin. #18. CODE status: Patient HCPOA is Armaan his brother and living will is currently in place. Full Code status. Charges/Coding Visit Charges Inpatient E&M: 67889 Init Hosp L3
[2024-01-04 19:49] LABS: Magnesium 1.7 mg/dL (1.6-2.6)
[2024-01-04] MEDS: Budesonide Respules 0.5 MG/2 ML AMPUL.NEB. INHALATION (21:10)
[2024-01-04] MEDS: Tamsulosin HCl 0.4 MG Capsule PO (21:11)
[2024-01-04] MEDS: Losartan Potassium 25 MG Tablet PO (21:11)
[2024-01-04] MEDS: busPIRone 15 MG TABLET PO (21:11)
[2024-01-04] MEDS: Heparin Injection (Vial) 5,000 UNIT/ML VIAL 5000 UNIT SC (21:12)
[2024-01-04] MEDS: Furosemide 100 MG/10 ML Vial 60 MG IV (21:12)
[2024-01-04] MEDS: Montelukast 10 MG Tablet PO (21:14)
[2024-01-04] MEDS: Mirtazapine 15 MG Tablet PO (21:14)
[2024-01-04] MEDS: Atorvastatin Calcium 80 MG Tablet PO (21:14)
[2024-01-04 22:02] LABS: Troponin-I HS 21 pg/mL (3.0-78.0)
[2024-01-04 22:45] LABS: Bedside Glucose 95 mg/dL (74-106)
[2024-01-05] VITALS (9 sets, daily range): BP systolic 125–141; BP diastolic 62–79; PULSE 58–67; RESP 16–26; TEMP 36.3–36.9; O2SAT 92–96; BMI 49.6
[2024-01-05 00:40] LABS: Troponin-I HS 20 pg/mL (3.0-78.0)
[2024-01-05 03:59] LABS: Absolute Lymphocyte Count 1.18 X10^3/uL (0.83-4.51); Absolute Neutrophil Count 5.1 X10^3/uL (2.0-7.7); Basophil# 0.06 X10^3/uL; Basophil% 0.8 % (0-1); Eosinophils% 5.1 % (0-5); Hematocrit 35.2 % (40-54); Hemoglobin 10.8 g/dL (13.0-16.5); Lymphocyte # 1.18 X10^3/ul (0.83-4.51); Lymphocyte % 15.2 % (19-41); Mean Corp Hgb Conc 30.7 g/dL (32-36); Mean Corpuscular Hgb 27.6 pg (27.0-32.0); Mean Corpuscular Volume 89.8 fL (80-94); Mean Platelet Vol. 9.8 fl (6.2-12.0); Monocyte# 1.03 X10^3/uL; Monocyte% 13.2 % (0-10); NRBC Flagged by Analyzer 0 % (0-5); Neutrophil # 5.08 X10^3/uL (2.7-7.7); Neutrophil % 65.3 % (47-70); Platelet Count 210 K/mm3 (150-450); RBC Distribution Width CV 16.9 % (11.6-14.6); RBC Distribution Width SD 55.1 fl (35.1-43.9); Red Blood Count 3.92 M/mm3 (4.6-6.2); White Blood Count 7.8 K/mm3 (4.4-11.0)
[2024-01-05 04:18] LABS: Troponin-I HS 24 pg/mL (3.0-78.0)
[2024-01-05 06:14] LABS: ALB/GLOB Ratio 0.7 RATIO (0.9-2.4); AST(SGOT) 16 U/L (15-37); Alanine Aminotransfer ALT/SGPT 18 U/L (16-61); Albumin, Serum 2.9 g/dL (3.2-5.0); Alkaline Phosphatase 89 U/L (45-117); Anion Gap 6 (5-15); BUN 33 mg/dL (7-18); BUN/Creat Ratio 29.2 RATIO (10-20); Calcium,Total 9.3 mg/dL (8.5-10.1); Chloride 101 mmol/L (98-107); Creatinine, Serum 1.13 mg/dL (0.70-1.30); EST Glomerular Filtration Rate 66 mL/min (>60); Est Glom Filt Rate - Afr Amer 80 mL/min (>60); Estimated Creatinine Clearance 80.53 ml/min; Globulin 4.3 g/dL (2.2-4.2); Glucose 95 mg/dL (74-106); Protein, Total 7.2 g/dL (6.4-8.2); Sodium Level 139 mmol/L (136-145)
[2024-01-05] MEDS: busPIRone 15 MG TABLET PO ×3 (06:42→21:33)
[2024-01-05 07:03] LABS: Bedside Glucose 74 mg/dL (74-106)
[2024-01-05] MEDS: Budesonide Respules 0.5 MG/2 ML AMPUL.NEB. INHALATION ×2 (07:33→18:57)
[2024-01-05] MEDS: 0.9% Saline Lock 10 ML Syringe IV ×2 (09:45→16:58)
[2024-01-05] MEDS: Furosemide 100 MG/10 ML Vial 60 MG IV ×2 (09:45→16:58)
[2024-01-05] MEDS: Aspirin 81 MG TAB.CHEW PO (09:46)
[2024-01-05] MEDS: Spironolactone 50 MG Tablet PO (09:46)
[2024-01-05] MEDS: Magnesium Chloride 64 MG Delay Rel.Tablet 128 MG PO (09:46)
[2024-01-05] MEDS: Docusate Sodium 100 MG Capsule PO (09:46)
[2024-01-05] MEDS: Clopidogrel Bisulfate 75 MG Tablet PO (09:46)
[2024-01-05] MEDS: Isosorbide Mononitrate 30 MG Tablet PO (09:46)
[2024-01-05] MEDS: Metoprolol(XL)Succ 25 MG Tablet PO (09:46)
[2024-01-05] MEDS: Vibegron 75 MG TABLET PO (09:46)
[2024-01-05] MEDS: Pantoprazole Sodium 40 MG Tablet PO (09:46)
[2024-01-05] MEDS: Heparin Injection (Vial) 5,000 UNIT/ML VIAL 5000 UNIT SC ×2 (09:47→21:34)
[2024-01-05] MEDS: Fluticasone 0.05% 1 SPRAY NASAL.SRY 2 SPRAY NASAL (09:47)
[2024-01-05] MEDS: Psyllium 1 PACKET PO (09:48)
--- NOTE | 2024-01-05 09:58 | PCM.PN.HOSP ---
Reason for Visit Reason for Visit: Diagnoses Heart failure, unspecified (01/04/24) Objective Data Objective Data Vital Signs: Vital Signs Temp Pulse Resp BP Pulse Ox O2 Del Method O2 Flow Rate 98.5 F 67 18 129/79 H 95 Nasal Cannula 2 01/05/24 09:10 01/05/24 09:46 01/05/24 09:10 01/05/24 09:10 01/05/24 09:10 01/05/24 09:10 01/05/24 08:20 Oxygen Flow Rate (L/min) 2 Oxygen Delivery Method Nasal Cannula Weight: 365 lb 15.477 oz Body Mass Index (BMI) 49.6 Intake & Output: Intake and Output for Last 24 Hours 01/03/24 01/04/24 01/05/24 23:59 23:59 23:59 Intake Total 220 / 220 Output Total 1600 / 1600 1200 / 1200 Balance -1380 / -1380 -1200 / -1200 Lab / Micro Data 01/05/24 03:28 01/05/24 03:28 Labs: Laboratory Results - last 24 hr 01/04/24 15:50: WBC 8.0, RBC 4.24 L, Hgb 11.2 L, Hct 38.0 L, MCV 89.6, MCH 26.4 L, MCHC 29.5 L, RDW Std Deviation 54.4 H, RDW Coeff of Yue 17.0 H, Plt Count 229, MPV 9.9, Immature Gran % (Auto) 0.600, Neut % (Auto) 68.8, Lymph % (Auto) 12.7 L, [place] % (Auto) 13.6 H, Eos % (Auto) 3.6, Baso % (Auto) 0.7, Absolute Neuts (auto) 5.5, Absolute Lymphs (auto) 1.02, Nucleated RBC % 0, Sodium 138, Potassium 4.7, Chloride 101, Carbon Dioxide 33.0 H, Anion Gap 4 L, BUN 36 H, Creatinine 1.31 H, Est GFR (MDRD) Af Amer 67, Est GFR (MDRD) Non-Af 56 L, BUN/Creatinine Ratio 27.5 H, Glucose 121 H, Calcium 9.4, Magnesium 1.7, Troponin I High Sens 25, B-Natriuretic Peptide 132.4 H 01/04/24 21:21: POC Glucose 95 01/04/24 21:34: Troponin I High Sens 21 01/04/24 23:53: Troponin I High Sens 20 01/05/24 03:28: WBC 7.8, RBC 3.92 L, Hgb 10.8 L, Hct 35.2 L, MCV 89.8, MCH 27.6, MCHC 30.7 L, RDW Std Deviation 55.1 H, RDW Coeff of Yue 16.9 H, Plt Count 210, MPV 9.8, Immature Gran % (Auto) 0.400, Neut % (Auto) 65.3, Lymph % (Auto) 15.2 L, [place] % (Auto) 13.2 H, Eos % (Auto) 5.1 H, Baso % (Auto) 0.8, Absolute Neuts (auto) 5.1, Absolute Lymphs (auto) 1.18, Nucleated RBC % 0, Sodium 139, Potassium 4.0, Chloride 101, Carbon Dioxide 32.0, Anion Gap 6, BUN 33 H, Creatinine 1.13, Estim Creat Clear Calc 80.53, Est GFR (MDRD) Af Amer 80, Est GFR (MDRD) Non-Af 66, BUN/Creatinine Ratio 29.2 H, Glucose 95, Calcium 9.3, Total Bilirubin 0.80, AST 16, ALT 18, Alkaline Phosphatase 89, Troponin I High Sens 24, Total Protein 7.2, Albumin 2.9 L, Globulin 4.3 H, Albumin/Globulin Ratio 0.7 L 01/05/24 06:25: POC Glucose 74 Radiography Diagnostic Testing: Radiology Impression Chest X-Ray 01/04/24 15:25 IMPRESSION: Cardiomegaly and mild degree of CHF. Electronically Signed: Christiano Odom MD at 15:39 EDT , Rhythm Strip Rhythm Strip: Paced Rate: 64 Ectopy: PVC(s) Physical Exam Narrative Seen and examined Patient is short of breath. Dyspnea at rest. Has swelling of lower extremities and abdomen mainly subcutaneous edema. Physical exam General: Alert, Oriented x3, Cooperative HEENT: Atraumatic, PERRLA, EOMI, Normocephalic Oral: No Gingival or Mucosal Lesions/ Ulcerations Neck: Supple, No JVD, Negative Carotid Bruits Chest wall/Lungs: Air entry diminished in bilateral lung bases. Bilateral shallow breathing. No crepitation/rhonchi Cardiovascular: Regular rate, Regular Rhythm, Normal S1, Normal S2, systolic murmur. Right subclavicular pacemaker Abdomen: Bowel Sounds Present, Soft, Non Tender, distended with subcutaneous edema : No dysuria. No renal angle tenderness. No suprapubic tenderness. Extremities: Bilateral LE edema up to thigh level capillary Refill Less than 3 Seconds Skin: No rashes, No breakdown Musculoskeletal: No Tenderness to Palpation of Joints or Extremities Neurological: Cranial nerves II-XII grossly intact, DTR 2+/4. No acute focal neurological deficit. Psych/Mental Status: Flat affect Assessment & Plan Assessment/Plan (1) CHF exacerbation: PLAN: Plan The patient is an 82 y/o M was admitted from assisted living for increased shortness of breath, weight gain and bilateral leg swelling. Was hypoxic 85% on room air. #1. Adult FTT secondary to Acute Decompensated HFpEF w/ recurrent Hypoxia not able to use oxygen machine: Patient is being admitted in PCU. Heart failure core measures including intake and output, fluid restriction less than 1500 mL, daily weight monitoring, kidney and electrolytes monitoring. IV Lasix 60 mg every 12 hourly and spironolactone 50 mg daily Last echo 12/07/23 with normal LV size, moderate concentric LVH, LVEF 55%, LV systolic function normal, wound RN consulted for lower extremity blisters. Troponins negative. #2. Chronic Kidney Disease Stage II : Admission BUN/creatinine 36/1.31, GFR 56. Continue diuresis 01/04: BUNs/creatinine 33/1.13. 3. Diabetes mellitus type II -patient's oral hypoglycemics held. Glucose 95 on BMP. No scheduled insulin ordered. Accu-Cheks a.c. and at bedtime and covered with sliding scale insulin 4. Hypertension - Blood pressure controlled, home medications continued with dose adjustment as needed 5. Dyslipidemia -Patient is on statin therapy, continued at home dose 6. Coronary artery disease ? With previous CABG and subsequent PCI patient is on guideline directed medical therapy 7. Complete heart block status post pacemaker with paroxysmal A-fib: Rate is controlled. Pacemaker. Paced rhythm not on systemic anticoagulation due to risk for falls. On baby aspirin and Plavix 8. BPH with lower urinary obstructive symptoms - Patient treated with tamsulosin 9.. Overlap syndrome with COPD asthma ? Bronchodilator treatment as needed 10. GERD ? Patient is on Protonix 40 mg p.o. twice daily discontinued 11. Allergic rhinitis ? Patient is on montelukast?continue 12. Bilateral lower extremity lymphedema ? Apparently resistant to outpatient treatment admitted for inpatient treatment with IV diuretics consult placed wound care nurse 13. Chronic constipation with IBS ? Patient is on plecanatide at home. Hold it because nonformulary 14.. Physical deconditioning, obstructive sleep apnea - Requested for PT OT eval and social service technician to assist with discharge planning 15. DVT prophylaxis ? SC heparin Charges/Coding Visit Charges Inpatient E&M: 45485 Subs Hosp L2
--- NOTE | 2024-01-05 11:01 | WOUNDNOTE ---
skin photo: left lower leg
--- NOTE | 2024-01-05 11:02 | WOUNDNOTE ---
skin photo: left lower leg
--- NOTE | 2024-01-05 11:02 | WOUNDNOTE ---
skin photo: right lower leg
--- NOTE | 2024-01-05 11:03 | WOUNDNOTE ---
skin photo: right lower leg
[2024-01-05 11:53] LABS: Bedside Glucose 169 mg/dL (74-106)
[2024-01-05] MEDS: Insulin Lispro 100 UNIT/ML INSULN.PEN SC ×3 (12:19→21:39)
--- NOTE | 2024-01-05 16:05 | CHAPLAIN ---
Type of Pastoral Visit _x__ Initial Visit ___ Follow-up Visit ___ On-call Visit ___ General Patient Visit ___ Spiritual Assessment ___ Family Conference ___ Bereavement ___ Rapid Response ___ Code Blue ___ Other (describe below) Pastoral Care Referral From _x__ Patient ___ Family ___ Nurse ___ Physician ___ Crossbar Switch Adjuster ___ Reservation Agent ___ Other (describe below) Sacrament/Intervention _x__ Active listening ___ Anointing ___ Protestant ___ Bereavement ___ Communion ___ Ya exploration ___ ___ Life review _x__ Prayer ___ Reconciliation ___ Sacrament of Sick _x__ Supportive presence ___ Wedding ___ Other (describe below) Pastoral Comments patient has been seen often in hospital and even recently; pt expresses frustration on why he is not getting better and why are there not answers for him; encouraged pt to ask questions and continue looking for the positive blessings in his life; time given to listen, be present, and say a prayer
[2024-01-05 17:20] LABS: Bedside Glucose 173 mg/dL (74-106)
[2024-01-05] MEDS: Atorvastatin Calcium 80 MG Tablet PO (21:34)
[2024-01-05] MEDS: Tamsulosin HCl 0.4 MG Capsule PO (21:35)
[2024-01-05] MEDS: Mirtazapine 15 MG Tablet PO (21:35)
[2024-01-05] MEDS: Montelukast 10 MG Tablet PO (21:35)
[2024-01-05] MEDS: Losartan Potassium 25 MG Tablet PO (21:36)
[2024-01-06] VITALS (8 sets, daily range): BP systolic 125–141; BP diastolic 55–76; PULSE 59–66; RESP 15–24; TEMP 36.1–36.9; O2SAT 91–97; BMI 48.5
[2024-01-06 00:10] LABS: Bedside Glucose 224 mg/dL (74-106)
[2024-01-06] MEDS: busPIRone 15 MG TABLET PO ×3 (05:31→22:42)
[2024-01-06 06:45] LABS: Bedside Glucose 117 mg/dL (74-106)
[2024-01-06 06:48] LABS: Absolute Lymphocyte Count 1.34 X10^3/uL (0.83-4.51); Absolute Neutrophil Count 5.4 X10^3/uL (2.0-7.7); Basophil# 0.05 X10^3/uL; Basophil% 0.6 % (0-1); Eosinophils% 4.8 % (0-5); Hemoglobin 11.2 g/dL (13.0-16.5); Lymphocyte # 1.34 X10^3/ul (0.83-4.51); Mean Corp Hgb Conc 30.3 g/dL (32-36); Mean Corpuscular Volume 89.2 fL (80-94); Mean Platelet Vol. 9.3 fl (6.2-12.0); Monocyte% 14.3 % (0-10); NRBC Flagged by Analyzer 0 % (0-5); Neutrophil # 5.36 X10^3/uL (2.7-7.7); Neutrophil % 63.9 % (47-70); Platelet Count 203 K/mm3 (150-450); RBC Distribution Width CV 16.7 % (11.6-14.6); RBC Distribution Width SD 53.9 fl (35.1-43.9); Red Blood Count 4.15 M/mm3 (4.6-6.2); White Blood Count 8.4 K/mm3 (4.4-11.0)
[2024-01-06 07:11] LABS: Anion Gap 2 (5-15); BUN 29 mg/dL (7-18); BUN/Creat Ratio 22.1 RATIO (10-20); Calcium,Total 9.1 mg/dL (8.5-10.1); Chloride 98 mmol/L (98-107); Creatinine, Serum 1.31 mg/dL (0.70-1.30); EST Glomerular Filtration Rate 56 mL/min (>60); Est Glom Filt Rate - Afr Amer 67 mL/min (>60); Estimated Creatinine Clearance 68.55 ml/min; Glucose 116 mg/dL (74-106); Sodium Level 135 mmol/L (136-145)
--- NOTE | 2024-01-06 08:52 | CASEMGMT ---
Discharge Planning Updates faxed to [facility]. Felicia Gutierres DC Planning Asst.
[2024-01-06] MEDS: Spironolactone 50 MG Tablet PO (09:26)
[2024-01-06] MEDS: Pantoprazole Sodium 40 MG Tablet PO (09:26)
[2024-01-06] MEDS: Magnesium Chloride 64 MG Delay Rel.Tablet 128 MG PO (09:27)
[2024-01-06] MEDS: Furosemide 100 MG/10 ML Vial 60 MG IV (09:27)
[2024-01-06] MEDS: Clopidogrel Bisulfate 75 MG Tablet PO (09:27)
[2024-01-06] MEDS: Aspirin 81 MG TAB.CHEW PO (09:27)
[2024-01-06] MEDS: Docusate Sodium 100 MG Capsule PO (09:27)
[2024-01-06] MEDS: Vibegron 75 MG TABLET PO (09:27)
[2024-01-06] MEDS: Isosorbide Mononitrate 30 MG Tablet PO (09:27)
[2024-01-06] MEDS: Heparin Injection (Vial) 5,000 UNIT/ML VIAL 5000 UNIT SC ×2 (09:28→22:42)
[2024-01-06] MEDS: Metoprolol(XL)Succ 25 MG Tablet PO (09:28)
[2024-01-06] MEDS: Fluticasone 0.05% 1 SPRAY NASAL.SRY 2 SPRAY NASAL (09:29)
[2024-01-06] MEDS: Budesonide Respules 0.5 MG/2 ML AMPUL.NEB. INHALATION ×2 (11:02→18:58)
[2024-01-06] MEDS: Insulin Lispro 100 UNIT/ML INSULN.PEN SC ×3 (11:27→22:42)
[2024-01-06 11:46] LABS: Bedside Glucose 207 mg/dL (74-106)
--- NOTE | 2024-01-06 13:17 | PCM.PN.HOSP ---
Reason for Visit Reason for Visit: Diagnoses Heart failure, unspecified (01/04/24) Objective Data Objective Data Vital Signs: Vital Signs Temp Pulse Resp BP Pulse Ox O2 Del Method O2 Flow Rate 98.0 F 65 18 141/76 H 94 Nasal Cannula 2 01/06/24 08:40 01/06/24 11:04 01/06/24 11:04 01/06/24 08:40 01/06/24 08:40 01/06/24 13:13 01/06/24 08:40 Oxygen Flow Rate (L/min) 2 Oxygen Delivery Method Nasal Cannula Weight: 357 lb 12.964 oz Body Mass Index (BMI) 48.5 Intake & Output: Intake and Output for Last 24 Hours 01/04/24 01/05/24 01/06/24 23:59 23:59 23:59 Intake Total 220 / 220 1010 / 1010 240 / 240 Output Total 1600 / 1600 3450 / 3450 1050 / 1050 Balance -1380 / -1380 -2440 / -2440 -810 / -810 Lab / Micro Data 01/06/24 06:25 01/06/24 06:25 Labs: Laboratory Results - last 24 hr 01/05/24 16:58: POC Glucose 173 H 01/05/24 21:38: POC Glucose 224 H 01/06/24 06:25: WBC 8.4, RBC 4.15 L, Hgb 11.2 L, Hct 37.0 L, MCV 89.2, MCH 27.0, MCHC 30.3 L, RDW Std Deviation 53.9 H, RDW Coeff of Yue 16.7 H, Plt Count 203, MPV 9.3, Immature Gran % (Auto) 0.400, Neut % (Auto) 63.9, Lymph % (Auto) 16.0 L, Garrard % (Auto) 14.3 H, Eos % (Auto) 4.8, Baso % (Auto) 0.6, Absolute Neuts (auto) 5.4, Absolute Lymphs (auto) 1.34, Nucleated RBC % 0, Sodium 135 L, Potassium 4.0, Chloride 98, Carbon Dioxide 35.0 H, Anion Gap 2 L, BUN 29 H, Creatinine 1.31 H, Estim Creat Clear Calc 68.55, Est GFR (MDRD) Af Amer 67, Est GFR (MDRD) Non-Af 56 L, BUN/Creatinine Ratio 22.1 H, Glucose 116 H, Calcium 9.1 01/06/24 06:26: POC Glucose 117 H 01/06/24 11:26: POC Glucose 207 H Rhythm Strip Rhythm Strip: Paced Rate: 64 Ectopy: PVC(s) Physical Exam Narrative Seen and examined Shortness of breath has much improved. Patient sitting on the chair. Had good sleep last night. Still has significant swelling of lower extremities and abdomen mainly subcutaneous edema. Physical exam General: Alert, Oriented x3, Cooperative HEENT: Atraumatic, PERRLA, EOMI, Normocephalic Oral: No Gingival or Mucosal Lesions/ Ulcerations Neck: Supple, No JVD, Negative Carotid Bruits Chest wall/Lungs: Air entry diminished in bilateral lung bases No crepitation/rhonchi Cardiovascular: Regular rate, Regular Rhythm, Normal S1, Normal S2, systolic murmur. Right subclavicular pacemaker Abdomen: Bowel Sounds Present, Soft, Non Tender, distended with subcutaneous edema : No dysuria. No renal angle tenderness. No suprapubic tenderness. Extremities: Bilateral LE edema up to knee level. capillary Refill Less than 3 Seconds Skin: No rashes, No breakdown Musculoskeletal: No Tenderness to Palpation of Joints or Extremities Neurological: Cranial nerves II-XII grossly intact, DTR 2+/4. No acute focal neurological deficit. Psych/Mental Status: Flat affect Assessment & Plan Assessment/Plan (1) CHF exacerbation: PLAN: Plan The patient is an 82 y/o M was admitted from assisted living for increased shortness of breath, weight gain and bilateral leg swelling. Was hypoxic 85% on room air. #1. Adult FTT secondary to Acute Decompensated HFpEF w/ recurrent Hypoxia not able to use oxygen machine: Patient is being admitted in PCU. Heart failure core measures including intake and output, fluid restriction less than 1500 mL, daily weight monitoring, kidney and electrolytes monitoring. IV Lasix 60 mg every 12 hourly and spironolactone 50 mg daily Last echo 12/07/23 with normal LV size, moderate concentric LVH, LVEF 55%, LV systolic function normal, wound RN consulted for lower extremity blisters. Troponins negative. 01/05: Active PT and OT rehab. #2. Chronic Kidney Disease Stage II : Admission BUN/creatinine 36/1.31, GFR 56. Continue diuresis 01/04: BUNs/creatinine 33/1.13. 01/05: BUNs/creatinine 29/1.31 bicarb 35. Discontinue IV Lasix changed to oral Lasix 40 mg p.o. twice daily from tomorrow a.m. patient has significant improvement in edema but still has lower extremity swelling. Bilateral venous edema/lymphedema with grayish pigmentation, seepage and macerated skin. 3. Diabetes mellitus type II -patient's oral hypoglycemics held. Glucose 95 on BMP. No scheduled insulin ordered. Accu-Cheks a.c. and at bedtime and covered with sliding scale insulin 01/05 glucose is reasonably controlled. 4. Hypertension - Blood pressure controlled, home medications continued with dose adjustment as needed 5. Dyslipidemia -Patient is on statin therapy, continued at home dose 6. Coronary artery disease ? With previous CABG and subsequent PCI patient is on guideline directed medical therapy 7. Complete heart block status post pacemaker with paroxysmal A-fib: Rate is controlled. Pacemaker. Paced rhythm not on systemic anticoagulation due to risk for falls. On baby aspirin and Plavix 8. BPH with lower urinary obstructive symptoms - Patient treated with tamsulosin 9.. Overlap syndrome with COPD asthma ? Bronchodilator treatment as needed 10. GERD ? Patient is on Protonix 40 mg p.o. twice daily discontinued 11. Allergic rhinitis ? Patient is on montelukast?continue 12. Bilateral lower extremity lymphedema ? Apparently resistant to outpatient treatment admitted for inpatient treatment with IV diuretics consult placed wound care nurse 13. Chronic constipation with IBS ? Patient is on plecanatide at home. Hold it because nonformulary 14.. Physical deconditioning, obstructive sleep apnea - Requested for PT OT eval and case management social worker to assist with discharge planning 15. DVT prophylaxis ? SC heparin Charges/Coding Visit Charges Inpatient E&M: 27989 Subs Hosp L2
--- NOTE | 2024-01-06 13:57 | CASEMGMT ---
BREEZY [facility] She had just received the updates from [facility] and wanted to know what was going on. BREEZY explained that SW will talk with patient. However, patient is doing fairly well with therapy. BREEZY also stated if patient is not agreeable SW cannot force patient to go anywhere. Rashida stated she is aware of this. BREEZY told Rashida that if patient is too much for them they may need to talk with patient about moving to another CT that is able to manage his care. Rashida stated they don't want patient to move. They want him to go somewhere short term and get better. Rashida said patient barely makes it down to get his medications daily. BREEZY let Rashida know SW will talk with patient. BREEZY met with patient. Introduced self and role at [facility]. SW spoke with patient about [facility] of [facility] coming back. Patient stated he does not know why [facility] wants him to go somewhere for rehab. SW asked patient if he is taking his medications, he said he was taking them. Patient stated one of the times a nurse asked if patient would like his meds brought to him and he said yes. SW asked patient if he knows how to operate his oxygen. Patient stated he does. SW asked patient if he would be willing to go to a facility short term. Patient said he had a bad experience last time he went to a facility. Patient stated he is most comfortable with going back to [facility]. SW let patient know if he changes his mind and agrees to try a new rehab facility to ask for SW. Patient thanked BREEZY for checking in. BREEZY will call Ayo. Plan: At this time the plan is for patient to return to [facility] with an order for home health. ([facility] arranges their own home health). Stacy TSANG
--- NOTE | 2024-01-06 15:55 | CASEMGMT ---
[facility] BREEZY let Rashida know SW spoke with patient for quite some time today and he does not want to go to a halfway facility. BREEZY asked Rashida what patient needs that they cannot accommodate. Rashida said it takes 2 people to get him off of the toilet. Rashida also said he barely makes it to the nurses station. Patient has to stop and rest and he is, huffing and puffing. BREEZY pulled up OT notes and patient is a standby assist to get on and off the toilet. Lucrecia said they are aware they cannot refuse patient, but they strongly encourage he go somewhere. Patient's physician also feels like patient needs [facility] care. BREEZY verbalized understanding. BREEZY asked Rashida if they would be able to set up home health for patient. Rashida said last time they could not set up home health because the order was not signed by the physician and they couldn't get one from patient's PCP. BREEZY will have the physician physically sign the order. BREEZY let Rashida know that the physician was thinking about discharging patient tomorrow. Rashida thanked BREEZY for the call. Plan: d/c back to [facility] with home health. Stacy TSANG
[2024-01-06 16:39] LABS: Bedside Glucose 181 mg/dL (74-106)
[2024-01-06] MEDS: Montelukast 10 MG Tablet PO (22:42)
[2024-01-06] MEDS: Mirtazapine 15 MG Tablet PO (22:42)
[2024-01-06] MEDS: Losartan Potassium 25 MG Tablet PO (22:42)
[2024-01-06] MEDS: Tamsulosin HCl 0.4 MG Capsule PO (22:42)
[2024-01-06] MEDS: Atorvastatin Calcium 80 MG Tablet PO (22:42)
[2024-01-07] VITALS (10 sets, daily range): BP systolic 124–142; BP diastolic 56–64; PULSE 60–65; RESP 15–22; TEMP 36.7–37; O2SAT 88–97; BMI 48.8
[2024-01-07 00:17] LABS: Bedside Glucose 217 mg/dL (74-106)
[2024-01-07] MEDS: busPIRone 15 MG TABLET PO ×3 (06:08→22:13)
[2024-01-07 06:32] LABS: Bedside Glucose 135 mg/dL (74-106)
[2024-01-07] MEDS: Budesonide Respules 0.5 MG/2 ML AMPUL.NEB. INHALATION ×2 (06:55→19:13)
[2024-01-07 06:58] LABS: Absolute Lymphocyte Count 1.04 X10^3/uL (0.83-4.51); Absolute Neutrophil Count 4.1 X10^3/uL (2.0-7.7); Basophil# 0.04 X10^3/uL; Basophil% 0.6 % (0-1); Eosinophil# 0.46 X10^3/uL; Eosinophils% 6.9 % (0-5); Hematocrit 35.9 % (40-54); Hemoglobin 10.8 g/dL (13.0-16.5); Lymphocyte # 1.04 X10^3/ul (0.83-4.51); Lymphocyte % 15.7 % (19-41); Mean Corp Hgb Conc 30.1 g/dL (32-36); Mean Corpuscular Hgb 26.8 pg (27.0-32.0); Mean Corpuscular Volume 89.1 fL (80-94); Mean Platelet Vol. 9.5 fl (6.2-12.0); Monocyte# 0.91 X10^3/uL; Monocyte% 13.7 % (0-10); NRBC Flagged by Analyzer 0 % (0-5); Neutrophil # 4.07 X10^3/uL (2.7-7.7); Neutrophil % 61.3 % (47-70); Platelet Count 202 K/mm3 (150-450); RBC Distribution Width CV 16.9 % (11.6-14.6); RBC Distribution Width SD 54.4 fl (35.1-43.9); Red Blood Count 4.03 M/mm3 (4.6-6.2); White Blood Count 6.6 K/mm3 (4.4-11.0)
--- NOTE | 2024-01-07 10:05 | CASEMGMT ---
Discharge Planning Update faxed to [facility] with note that patient should return over the wknd. Fax confirmation rec'd. Felicia Gutierres DC Planning Asst.
--- NOTE | 2024-01-07 10:24 | CASEMGMT ---
Patient is not ready for discharge today. SW put in an order for home health for patient. will have physician physically sign order so [facility] can set up home health. Plan: d/c back to [facility] with home health Shelter, PT, and OT. Physicians will transport patient via wheelchair van. Stacy Haddad [employer]
[2024-01-07] MEDS: Spironolactone 50 MG Tablet PO (10:49)
[2024-01-07] MEDS: Docusate Sodium 100 MG Capsule PO (10:49)
[2024-01-07] MEDS: Aspirin 81 MG TAB.CHEW PO (10:49)
[2024-01-07] MEDS: Furosemide 40 MG Tablet PO (10:50)
[2024-01-07] MEDS: Isosorbide Mononitrate 30 MG Tablet PO (10:50)
[2024-01-07] MEDS: Pantoprazole Sodium 40 MG Tablet PO (10:50)
[2024-01-07] MEDS: Magnesium Chloride 64 MG Delay Rel.Tablet 128 MG PO (10:50)
[2024-01-07] MEDS: Clopidogrel Bisulfate 75 MG Tablet PO (10:50)
[2024-01-07] MEDS: Vibegron 75 MG TABLET PO (10:50)
[2024-01-07] MEDS: Metoprolol(XL)Succ 25 MG Tablet PO (10:51)
[2024-01-07] MEDS: Fluticasone 0.05% 1 SPRAY NASAL.SRY 2 SPRAY NASAL (10:53)
[2024-01-07] MEDS: Heparin Injection (Vial) 5,000 UNIT/ML VIAL 5000 UNIT SC ×2 (10:54→22:14)
[2024-01-07 11:48] LABS: Anion Gap 5 (5-15); BUN 25 mg/dL (7-18); BUN/Creat Ratio 22.5 RATIO (10-20); Chloride 98 mmol/L (98-107); Creatinine, Serum 1.11 mg/dL (0.70-1.30); EST Glomerular Filtration Rate 67 mL/min (>60); Est Glom Filt Rate - Afr Amer 82 mL/min (>60); Estimated Creatinine Clearance 81.17 ml/min; Glucose 145 mg/dL (74-106); Sodium Level 135 mmol/L (136-145)
[2024-01-07] MEDS: Insulin Lispro 100 UNIT/ML INSULN.PEN SC ×3 (12:06→22:13)
[2024-01-07 12:16] LABS: Bedside Glucose 183 mg/dL (74-106)
--- NOTE | 2024-01-07 15:17 | PCM.PN.HOSP ---
Reason for Visit Reason for Visit: Diagnoses Heart failure, unspecified (01/04/24) Objective Data Objective Data Vital Signs: Vital Signs Temp Pulse Resp BP Pulse Ox O2 Del Method O2 Flow Rate 98.2 F 63 18 136/56 H 88 Nasal Cannula 2 01/07/24 10:46 01/07/24 10:51 01/07/24 10:46 01/07/24 10:51 01/07/24 14:29 01/07/24 12:45 01/07/24 14:30 Oxygen Flow Rate (L/min) 2 Oxygen Delivery Method Nasal Cannula Weight: 359 lb 12.71 oz Body Mass Index (BMI) 48.8 Intake & Output: Intake and Output for Last 24 Hours 01/05/24 01/06/24 01/07/24 23:59 23:59 23:59 Intake Total 1010 / 1010 720 / 720 625 / 625 Output Total 3450 / 3450 1800 / 2200 600 / 600 Balance -2440 / -2440 -1080 / -1480 25 / 25 Lab / Micro Data 01/07/24 06:30 01/07/24 06:30 Labs: Laboratory Results - last 24 hr 01/06/24 16:19: POC Glucose 181 H 01/06/24 22:40: POC Glucose 217 H 01/07/24 06:06: POC Glucose 135 H 01/07/24 06:30: WBC 6.6, RBC 4.03 L, Hgb 10.8 L, Hct 35.9 L, MCV 89.1, MCH 26.8 L, MCHC 30.1 L, RDW Std Deviation 54.4 H, RDW Coeff of Yue 16.9 H, Plt Count 202, MPV 9.5, Immature Gran % (Auto) 1.800 H, Neut % (Auto) 61.3, Lymph % (Auto) 15.7 L, Turner % (Auto) 13.7 H, Eos % (Auto) 6.9 H, Baso % (Auto) 0.6, Absolute Neuts (auto) 4.1, Absolute Lymphs (auto) 1.04, Nucleated RBC % 0, Sodium 135 L, Potassium 4.0, Chloride 98, Carbon Dioxide 32.0, Anion Gap 5, BUN 25 H, Creatinine 1.11, Estim Creat Clear Calc 81.17, Est GFR (MDRD) Af Amer 82, Est GFR (MDRD) Non-Af 67, BUN/Creatinine Ratio 22.5 H, Glucose 145 H, Calcium 9.0 01/07/24 11:52: POC Glucose 183 H Rhythm Strip Rhythm Strip: Paced Rate: 64 Ectopy: PVC(s) Physical Exam Narrative Seen and examined. Yesterday patient had increasing bicarb and creatinine therefore IV Lasix 60 mg twice daily was held and changed to p.o. The monitor patient still has significant edema up to mid thigh level, abdominal swelling get dyspnea on exertion. Therefore decided to keep 1 more day with IV Lasix 40 mg every 12 hourly. Physical exam General: Alert, Oriented x3, Cooperative HEENT: Atraumatic, PERRLA, EOMI, Normocephalic Oral: No Gingival or Mucosal Lesions/ Ulcerations Neck: Supple, No JVD, Negative Carotid Bruits Chest wall/Lungs: Air entry diminished in bilateral lung bases No crepitation/rhonchi Cardiovascular: Paced rhythm, normal S1-S2, systolic murmur. Right subclavicular pacemaker Abdomen: Bowel Sounds Present, Soft, Non Tender, mild distended with subcutaneous edema : No dysuria. No renal angle tenderness. No suprapubic tenderness. Extremities: Bilateral LE edema up to mid thigh level. capillary Refill Less than 3 Seconds Skin: No rashes, No breakdown Musculoskeletal: No Tenderness to Palpation of Joints or Extremities Neurological: Cranial nerves II-XII grossly intact, DTR 2+/4. No acute focal neurological deficit. Psych/Mental Status: Flat affect Assessment & Plan Assessment/Plan (1) CHF exacerbation: PLAN: Plan The patient is an 82 y/o M was admitted from assisted living for increased shortness of breath, weight gain and bilateral leg swelling. Was hypoxic 85% on room air. #1. Adult FTT secondary to Acute Decompensated HFpEF w/ recurrent Hypoxia not able to use oxygen machine: Patient is being admitted in PCU. Heart failure core measures including intake and output, fluid restriction less than 1500 mL, daily weight monitoring, kidney and electrolytes monitoring. IV Lasix 60 mg every 12 hourly and spironolactone 50 mg daily Last echo 12/07/23 with normal LV size, moderate concentric LVH, LVEF 55%, LV systolic function normal, wound RN consulted for lower extremity blisters. Troponins negative. 01/05: Active PT and OT rehab. #2. Chronic Kidney Disease Stage II : Admission BUN/creatinine 36/1.31, GFR 56. Continue diuresis 01/04: BUNs/creatinine 33/1.13. 01/05: BUNs/creatinine 29/1.31 bicarb 35. Discontinue IV Lasix changed to oral Lasix 40 mg p.o. twice daily from tomorrow a.m. patient has significant improvement in edema but still has lower extremity swelling. Bilateral venous edema/lymphedema with grayish pigmentation, seepage and macerated skin. 01/06: BUNs/creatinine better 25/1.11. Furosemide 40 mg twice daily changed to IV as oral seems not very effective. Bicarb also better 32. Anion gap 5. 3. Diabetes mellitus type II -patient's oral hypoglycemics held. Glucose 95 on BMP. No scheduled insulin ordered. Accu-Cheks a.c. and at bedtime and covered with sliding scale insulin 01/05 glucose is reasonably controlled. 01/06: Glucose ranges from 1 83-217. 4. Hypertension - Blood pressure controlled, home medications continued with dose adjustment as needed 5. Dyslipidemia -Patient is on statin therapy, continued at home dose 6. Coronary artery disease ? With previous CABG and subsequent PCI patient is on guideline directed medical therapy 7. Complete heart block status post pacemaker with paroxysmal A-fib: Rate is controlled. Pacemaker. Paced rhythm not on systemic anticoagulation due to risk for falls. On baby aspirin and Plavix 8. BPH with lower urinary obstructive symptoms - Patient treated with tamsulosin 9.. Overlap syndrome with COPD asthma ? Bronchodilator treatment as needed 10. GERD ? Patient is on Protonix 40 mg p.o. twice daily discontinued 11. Allergic rhinitis ? Patient is on montelukast?continue 12. Bilateral lower extremity lymphedema ? Apparently resistant to outpatient treatment admitted for inpatient treatment with IV diuretics consult placed wound care nurse 13. Chronic constipation with IBS ? Patient is on plecanatide at home. Hold it because nonformulary 14.. Physical deconditioning, obstructive sleep apnea - Requested for PT OT eval and health and social care teacher to assist with discharge planning 15. DVT prophylaxis ? SC heparin Charges/Coding Visit Charges Inpatient E&M: 88367 Subs Hosp L2
[2024-01-07] MEDS: Furosemide 40 MG/4 ML Vial IV (17:39)
[2024-01-07 18:13] LABS: Bedside Glucose 190 mg/dL (74-106)
[2024-01-07] MEDS: Mirtazapine 15 MG Tablet PO (22:13)
[2024-01-07] MEDS: Atorvastatin Calcium 80 MG Tablet PO (22:13)
[2024-01-07] MEDS: Tamsulosin HCl 0.4 MG Capsule PO (22:13)
[2024-01-07] MEDS: Montelukast 10 MG Tablet PO (22:13)
[2024-01-07] MEDS: Losartan Potassium 25 MG Tablet PO (22:13)
[2024-01-07 22:33] LABS: Bedside Glucose 222 mg/dL (74-106)
[2024-01-08] VITALS (7 sets, daily range): BP systolic 141–149; BP diastolic 68; PULSE 58–63; RESP 16–18; TEMP 36.2–36.3; O2SAT 86–98; BMI 50.0
[2024-01-08] MEDS: busPIRone 15 MG TABLET PO (06:27)
[2024-01-08 06:59] LABS: Bedside Glucose 152 mg/dL (74-106)
[2024-01-08] MEDS: Budesonide Respules 0.5 MG/2 ML AMPUL.NEB. INHALATION (07:38)
[2024-01-08 07:59] LABS: Absolute Lymphocyte Count 1.05 X10^3/uL (0.83-4.51); Absolute Neutrophil Count 4.4 X10^3/uL (2.0-7.7); Basophil# 0.05 X10^3/uL; Basophil% 0.7 % (0-1); Eosinophil# 0.43 X10^3/uL; Eosinophils% 6.2 % (0-5); Hematocrit 36.2 % (40-54); Hemoglobin 11.4 g/dL (13.0-16.5); Lymphocyte # 1.05 X10^3/ul (0.83-4.51); Lymphocyte % 15.2 % (19-41); Mean Corp Hgb Conc 31.5 g/dL (32-36); Mean Corpuscular Hgb 27.9 pg (27.0-32.0); Mean Corpuscular Volume 88.7 fL (80-94); Mean Platelet Vol. 9.3 fl (6.2-12.0); Monocyte# 0.96 X10^3/uL; Monocyte% 13.9 % (0-10); NRBC Flagged by Analyzer 0 % (0-5); Neutrophil % 63.4 % (47-70); Platelet Count 189 K/mm3 (150-450); RBC Distribution Width CV 17.1 % (11.6-14.6); RBC Distribution Width SD 54.1 fl (35.1-43.9); Red Blood Count 4.08 M/mm3 (4.6-6.2); White Blood Count 6.9 K/mm3 (4.4-11.0)
[2024-01-08] MEDS: Pantoprazole Sodium 40 MG Tablet PO (08:00)
[2024-01-08] MEDS: Clopidogrel Bisulfate 75 MG Tablet PO (08:00)
[2024-01-08] MEDS: Aspirin 81 MG TAB.CHEW PO (08:01)
[2024-01-08] MEDS: Magnesium Chloride 64 MG Delay Rel.Tablet 128 MG PO (08:01)
--- NOTE | 2024-01-08 08:29 | DCINST_ITS ---
Discharge Instructions Diet Discharge Diet: Low fat / Low cholesterol, 1800 Calorie Control Diet, 6 Cup Fluid Restriction and 2000 mg Sodium Diet Activity Discharge Activity: Return to Normal Activity Weight Bearing Status: Weight bearing as tolerated Dressing / Incision Call your doctor if you observe: Fever of 101 or Higher, Coldness, Increased Pain, Numbness or Tingling, Change in Color, Inability to urinate, Inability to have a bowel movement, Shortness of breath, Dizziness, Fainting spells, Swelling in the ankles, Chest pain, Prolonged hiccupping, Increased palpitations (irregular heartbeat) and Calf discomfort Follow Up Care When: IN 2 WEEKS Test Results: Test results from this visit will be discussed in further detail at your follow- up appointment, if applicable. 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 Advised BMP in 1 week. Discharge Orders/Prescriptions Prescriptions: New Daily Fiber (psyllium-aspart) 3 gram Powder In Packet 1 packet PO DAILY PRN PRN (Reason: Constipation) Qty: 0 0RF torsemide 40 mg tablet 40 mg PO BID 30 Days Qty: 60 1RF Rx Instructions: Hold for MARLA Continued buspirone 15 mg tablet 15 mg PO TID nitroglycerin 0.4 MG tablet 0.4 mg sublingual Q5M PRN (Reason: Chest Pain) Patient Comments: CHEST aspirin 81 MG tablet,chewable 81 mg PO DAILY Patient Comments: [facility] magnesium oxide 400 MG tablet 400 mg PO DAILY Patient Comments: MAGNESIUM SUPPLEMENT atorvastatin 80 MG tablet 80 mg PO QHS montelukast 10 MG tablet 10 mg PO QHS fluticasone propionate 1 SPRAY spray,suspension 2 spray NASAL DAILY cholecalciferol (vitamin D3) 2,000 UNIT capsule 2,000 unit PO BID tamsulosin 0.4 mg Capsule 0.4 mg PO QHS mirtazapine 15 mg Tablet 15 mg PO QHS glimepiride 4 mg Tablet 4 mg PO BREAKFAST docusate sodium 100 MG capsule 100 mg PO DAILY clopidogrel 75 mg Tablet 75 mg PO DAILY Qty: 30 0RF isosorbide mononitrate 30 mg Tablet Extended Release 24 Hr 30 mg PO DAILY Qty: 30 0RF fluticasone furoate-vilanterol [Breo Ellipta] 200-25 mcg/dose blister with device 1 inh INHALATION DAILY losartan 25 mg tablet 25 mg PO QHS Rx Instructions: HOLD IF SYSTOLIC <100 metoprolol succinate 25 mg tablet extended release 24 hr 25 mg PO DAILY Rx Instructions: HOLD hr <55 HOLD SYSTOLIC <95 metformin 1,000 mg tablet 1,000 mg PO BID calcium carbonate-vitamin D3 [Calcium 600 + D(3)] 600 mg-5 mcg (200 unit) tablet 1 tab PO BID pantoprazole 40 mg tablet,delayed release (DR/EC) 40 mg PO DAILY acetaminophen 325 mg Tablet 650 mg PO Q6H PRN PRN (Reason: Pain 1-10 Or Fever>100.7) Qty: 0 0RF spironolactone 50 mg Tablet 50 mg PO DAILY Qty: 0 0RF mirabegron [Myrbetriq] 50 mg tablet extended release 24 hr 50 mg PO DAILY tramadol 50 mg tablet 50 mg PO Q6H PRN PRN (Reason: pain) Trulance 3 mg tablet 3 mg PO DAILY 30 Days Qty: 30 6RF sucralfate 1 gram tablet 1 g PO BID Qty: 60 0RF Discontinued furosemide 40 mg tablet 40 mg PO BID ibuprofen 600 mg tablet 600 mg PO Q6H PRN PRN (Reason: pain) Referrals / Follow Up: Bertrand Warner MD [Primary Care Provider] - Within 1 Week Familia Ingram MD [Med Staff - Consulting] - Within 2 Weeks (For MARLA. Patient on diuretics for CHF) Disposition Disposition (needs filled in before D/C Order can be placed): Assisted Living
[2024-01-08 08:30] LABS: Anion Gap 4 (5-15); BUN 24 mg/dL (7-18); BUN/Creat Ratio 22.9 RATIO (10-20); Calcium,Total 8.7 mg/dL (8.5-10.1); Chloride 99 mmol/L (98-107); Creatinine, Serum 1.05 mg/dL (0.70-1.30); EST Glomerular Filtration Rate 72 mL/min (>60); Est Glom Filt Rate - Afr Amer 87 mL/min (>60); Estimated Creatinine Clearance 87.03 ml/min; Glucose 148 mg/dL (74-106); Potassium 4.1 mmol/L (3.5-5.1); Sodium Level 135 mmol/L (136-145)
[2024-01-08] MEDS: Spironolactone 50 MG Tablet PO (09:18)
[2024-01-08] MEDS: Fluticasone 0.05% 1 SPRAY NASAL.SRY 2 SPRAY NASAL (09:19)
[2024-01-08] MEDS: Docusate Sodium 100 MG Capsule PO (09:19)
[2024-01-08] MEDS: Vibegron 75 MG TABLET PO (09:19)
[2024-01-08] MEDS: Metoprolol(XL)Succ 25 MG Tablet PO (09:20)
[2024-01-08] MEDS: Isosorbide Mononitrate 30 MG Tablet PO (09:20)
[2024-01-08] MEDS: Furosemide 40 MG/4 ML Vial IV (09:21)
[2024-01-08] MEDS: 0.9% Saline Lock 10 ML Syringe IV (09:21)
[2024-01-08] MEDS: Heparin Injection (Vial) 5,000 UNIT/ML VIAL 5000 UNIT SC (09:21)
--- NOTE | 2024-01-08 09:35 | DS.PCM_ITS ---
Providers Date of Admission: 01/04/24 Date of Discharge: 01/08/24 Primary Care Physician: Dr. Bertrand Warner MD Consultations 01/04/24 20:22 Consult: Onc/Wound/roller skates assembler Routine Comment: Reason for Consult:: BL LE stasis wounds Reason For Visit: HF EXACERBATION, ADULT FTT Diagnosis Discharge Diagnosis (1) CHF exacerbation: Status: Chronic Code(s): I50.9 - Heart failure, unspecified Plan The patient is an 82 y/o M was admitted from assisted living for increased shortness of breath, weight gain and bilateral leg swelling. Was hypoxic 85% on room air. #1. Adult FTT secondary to Acute Decompensated HFpEF w/ recurrent Hypoxia not able to use oxygen machine: Patient is being admitted in PCU. Heart failure core measures including intake and output, fluid restriction less than 1500 mL, daily weight monitoring, kidney and electrolytes monitoring. IV Lasix 60 mg every 12 hourly and spironolactone 50 mg daily Last echo 12/07/23 with normal LV size, moderate concentric LVH, LVEF 55%, LV systolic function normal, wound RN consulted for lower extremity blisters. Troponins negative. 01/05: Active PT and OT rehab. #2. Chronic Kidney Disease Stage II : Admission BUN/creatinine 36/1.31, GFR 56. Continue diuresis 01/04: BUNs/creatinine 33/1.13. 01/05: BUNs/creatinine 29/1.31 bicarb 35. Discontinue IV Lasix changed to oral Lasix 40 mg p.o. twice daily from tomorrow a.m. patient has significant improvement in edema but still has lower extremity swelling. Bilateral venous edema/lymphedema with grayish pigmentation, seepage and macerated skin. 01/06: BUNs/creatinine better 25/1.11. Furosemide 40 mg twice daily changed to IV as oral seems not very effective. Bicarb also better 32. Anion gap 5. 01/07: BUNs/creatinine 24/1.05. Bicarb 32. Furosemide 40 mg IV 1 dose and discharged on torsemide 40 mg oral twice daily. Advised follow-up on cam specialist Dr. Youngblood in 2 weeks. Follow-up with project designer to manage diuretics and CKD. 3. Diabetes mellitus type II -patient's oral hypoglycemics held. Glucose 95 on BMP. No scheduled insulin ordered. Accu-Cheks a.c. and at bedtime and covered with sliding scale insulin 01/05 glucose is reasonably controlled. 01/06: Glucose ranges from 1 83-217. 01/07: Glucose is reasonably controlled. Glucose in BMP is 148. 4. Hypertension - Blood pressure controlled, home medications continued with dose adjustment as needed 5. Dyslipidemia -Patient is on statin therapy, continued at home dose 6. Coronary artery disease ? With previous CABG and subsequent PCI patient is on guideline directed medical therapy 7. Complete heart block status post pacemaker with paroxysmal A-fib: Rate is controlled. Pacemaker. Paced rhythm not on systemic anticoagulation due to risk for falls. On baby aspirin and Plavix 8. BPH with lower urinary obstructive symptoms - Patient treated with tamsulosin 9.. Overlap syndrome with COPD asthma ? Bronchodilator treatment as needed 10. GERD ? Patient is on Protonix 40 mg p.o. twice daily discontinued 11. Allergic rhinitis ? Patient is on montelukast?continue 12. Bilateral lower extremity lymphedema ? Apparently resistant to outpatient treatment admitted for inpatient treatment with IV diuretics consult placed wound care nurse 13. Chronic constipation with IBS ? Patient is on plecanatide at home. Hold it because nonformulary 14.. Physical deconditioning, obstructive sleep apnea - Requested for PT OT eval and social and human services assistant to assist with discharge planning 15. DVT prophylaxis ? SC heparin Discharge medication reconciliation done. Discharge follow-up instructions completed. Discharge process discussed with the patient and all questions were answered to patient's satisfaction. Follow with PCP in 1 to 2 weeks Total time spent, exact 35 minutes on discharge meds reconciliation, examination, coordination of care with nurses and ancillary staff, review of imaging and blood test and discussion with the patient on follow-up instructions.. Patient in assisted living center. Medications at Discharge Home Medications aspirin 81 mg chewable tablet 81 mg PO DAILY HEALTH MAINTENANCE 06/09/13 nitroglycerin 0.4 mg sublingual tablet 0.4 mg sublingual Q5M PRN Chest Pain 06/09/13 magnesium oxide 400 mg (241.3 mg magnesium) tablet 400 mg PO DAILY MAGNESIUM 10/07/15 atorvastatin 80 mg tablet 80 mg PO QHS HLD 08/05/18 cholecalciferol (vitamin D3) 50 mcg (2,000 unit) capsule 2,000 unit PO BID SUPPLEMENT 11/24/19 fluticasone propionate 50 mcg/actuation nasal spray,suspension 2 spray NASAL DAILY ALLERGIES 11/24/19 montelukast 10 mg tablet 10 mg PO QHS ALLERGIES 11/24/19 glimepiride 4 mg tablet 4 mg PO BREAKFAST DM 01/09/21 mirtazapine 15 mg tablet 15 mg PO QHS mental health 01/09/21 tamsulosin 0.4 mg capsule 0.4 mg PO QHS prostate 01/09/21 docusate sodium 100 mg capsule 100 mg PO DAILY stool softner 07/15/21 clopidogrel 75 mg tablet 75 mg PO DAILY prevent clots #30 tabs 11/17/22 fluticasone furoate 200 mcg-vilanterol 25 mcg/dose inhalation powder (Breo Ellipta) 1 inh inhalation DAILY Check with primary doctor 11/17/22 isosorbide mononitrate 30 mg tablet,extended release 24 hr 30 mg PO DAILY bp, heart #30 tabs 11/17/22 losartan 25 mg tablet 25 mg PO QHS Check with primary doctor 11/17/22 metoprolol succinate 25 mg tablet,extended release 24 hr 25 mg PO DAILY Check with primary doctor 11/17/22 calcium carbonate 600 mg-vitamin D3 5 mcg (200 unit) tablet (Calcium 600 + D(3)) 1 tab PO BID supplement 06/09/23 pantoprazole 40 mg tablet,delayed release 40 mg PO DAILY GERD 06/09/23 metformin 1,000 mg tablet 1,000 mg PO BID blood glucose 06/20/23 acetaminophen 325 mg tablet 650 mg (2 x 325 mg) PO Q6H PRN PRN Pain 1-10 Or Fever>100.7 #0 tabs 06/25/23 spironolactone 50 mg tablet 50 mg PO DAILY directic #0 tabs 06/25/23 plecanatide 3 mg tablet (Trulance) 3 mg PO DAILY chronic constipation 30 days #30 tabs 06/28/23 buspirone 15 mg tablet 15 mg PO TID mood 10/25/23 mirabegron 50 mg tablet,extended release 24 hr (Myrbetriq) 50 mg PO DAILY . 12/07/23 tramadol 50 mg tablet 50 mg PO Q6H PRN PRN pain 12/30/23 sucralfate 1 gram tablet 1 g PO BID #60 tabs 01/07/24 psyllium husk (aspartame) 3 gram oral powder packet (Daily Fiber (psyllium- aspartame)) 1 packet PO DAILY PRN PRN Constipation #0 ea 01/08/24 torsemide 40 mg tablet 40 mg PO BID 1 month #60 tabs 01/08/24 Physical Exam Narrative Seen and examined. Patient has decreasing fluid load in lower extremities. Shortness of breath is better. Physical exam General: Alert, Oriented x3, Cooperative HEENT: Atraumatic, PERRLA, EOMI, Normocephalic Oral: No Gingival or Mucosal Lesions/ Ulcerations Neck: Supple, No JVD, Negative Carotid Bruits Chest wall/Lungs: Air entry diminished in bilateral lung bases No crepitation/rhonchi Cardiovascular: Paced rhythm, normal S1-S2, systolic murmur. Right subclavicular pacemaker Abdomen: Bowel Sounds Present, Soft, Non Tender, mild distended with subcutaneous edema : No dysuria. No renal angle tenderness. No suprapubic tenderness. Extremities: Bilateral LE edema up to knee level. capillary Refill Less than 3 Seconds Skin: No rashes, No breakdown Musculoskeletal: No Tenderness to Palpation of Joints or Extremities Neurological: Cranial nerves II-XII grossly intact, DTR 2+/4. No acute focal neurological deficit. Psych/Mental Status: Flat affect Weight / BMI Weight Weight: 368 lb 9.806 oz Body Mass Index (BMI) 50.0 ABG / Lab / Microbiology Data 01/08/24 07:30 01/08/24 07:30 Laboratory: Laboratory Results - last 24 hr 01/07/24 06:30: Sodium 135 L, Potassium 4.0, Chloride 98, Carbon Dioxide 32.0, Anion Gap 5, BUN 25 H, Creatinine 1.11, Estim Creat Clear Calc 81.17, Est GFR (MDRD) Af Amer 82, Est GFR (MDRD) Non-Af 67, BUN/Creatinine Ratio 22.5 H, G lucose 145 H, Calcium 9.0 01/07/24 11:52: POC Glucose 183 H 01/07/24 17:33: POC Glucose 190 H 01/07/24 22:11: POC Glucose 222 H 01/08/24 06:27: POC Glucose 152 H 01/08/24 07:30: WBC 6.9, RBC 4.08 L, Hgb 11.4 L, Hct 36.2 L, MCV 88.7, MCH 27.9, MCHC 31.5 L, RDW Std Deviation 54.1 H, RDW Coeff of Yue 17.1 H, Plt Count 189, MPV 9.3, Immature Gran % (Auto) 0.600, Neut % (Auto) 63.4, Lymph % (Auto) 15.2 L , Gallia % (Auto) 13.9 H, Eos % (Auto) 6.2 H, Baso % (Auto) 0.7, Absolute Neuts (auto) 4.4, Absolute Lymphs (auto) 1.05, Nucleated RBC % 0, Sodium 135 L, Potassium 4.1, Chloride 99, Carbon Dioxide 32.0, Anion Gap 4 L, BUN 24 H, Creatinine 1.05, Estim Creat Clear Calc 87.03, Est GFR (MDRD) Af Amer 87, Est GFR (MDRD) Non-Af 72, BUN/Creatinine Ratio 22.9 H, Glucose 148 H, Calcium 8.7 D/C Instructions Discharge Diet: Low fat / Low cholesterol, 1800 Calorie Control Diet, 6 Cup Fluid Restriction and 2000 mg Sodium Diet Weight Bearing Status: Weight bearing as tolerated Call your doctor if you observe: Fever of 101 or Higher, Coldness, Increased Pain, Numbness or Tingling, Change in Color, Inability to urinate, Inability to have a bowel movement, Shortness of breath, Dizziness, Fainting spells, Swelling in the ankles, Chest pain, Prolonged hiccupping, Increased palpitations (irregular heartbeat) and Calf discomfort When: IN 2 WEEKS Meaningful Use Info Meaningful Use Meaningful Use Diagnoses (Choose all that apply): CHF CHF CIELO/ARB ordered at discharge?: No Reason CIELO/ARB not ordered?: Worsening renal dysfunctn Documented LVEF (%): 55 Ischemic Stroke Statin Dosing Therapy Reference: STATIN DOSE THERAPY REFERENCE: * Patients > 75 years receive moderate or high dose statin therapy. * Patients 75 years or YOUNGER should receive HIGH intensity statin dose unless contraindicated. You will be required to document reason for non-treatment if statin daily dose does not meet guidelines. HIGH DOSE STATIN THERAPY DAILY Atorvastatin > than or = to 40 mg Rosuvastatin > than or = to 20 mg Amlodipine + Atorvastatin > than or = to 2.5/40 mg Ezetimibe + Simvastatin 10/80 mg Simvastatin 80mg Discharge Plan Admission Admit Date/Time: 01/04/24 19:09 Primary Reason for Your Visit: CHF exacerbation Attending Provider: David Cox Primary Care Provider: Bertrand Warner Consulting Providers: Magdalena Grace Instructions Additional Instructions / Restrictions: Follow-up outpatient, [place] cam specialist Dr. Youngblood in 2 weeks. Advised BMP in 1 week. Discharge Orders/Prescriptions Prescriptions: New Daily Fiber (psyllium-aspart) 3 gram Powder In Packet 1 packet PO DAILY PRN PRN (Reason: Constipation) Qty: 0 0RF torsemide 40 mg tablet 40 mg PO BID 30 Days Qty: 60 1RF Rx Instructions: Hold for MARLA Continued buspirone 15 mg tablet 15 mg PO TID nitroglycerin 0.4 MG tablet 0.4 mg sublingual Q5M PRN (Reason: Chest Pain) Patient Comments: CHEST aspirin 81 MG tablet,chewable 81 mg PO DAILY Patient Comments: HEART HEALTH magnesium oxide 400 MG tablet 400 mg PO DAILY Patient Comments: MAGNESIUM SUPPLEMENT atorvastatin 80 MG tablet 80 mg PO QHS montelukast 10 MG tablet 10 mg PO QHS fluticasone propionate 1 SPRAY spray,suspension 2 spray NASAL DAILY cholecalciferol (vitamin D3) 2,000 UNIT capsule 2,000 unit PO BID tamsulosin 0.4 mg Capsule 0.4 mg PO QHS mirtazapine 15 mg Tablet 15 mg PO QHS glimepiride 4 mg Tablet 4 mg PO BREAKFAST docusate sodium 100 MG capsule 100 mg PO DAILY clopidogrel 75 mg Tablet 75 mg PO DAILY Qty: 30 0RF isosorbide mononitrate 30 mg Tablet Extended Release 24 Hr 30 mg PO DAILY Qty: 30 0RF fluticasone furoate-vilanterol [Breo Ellipta] 200-25 mcg/dose blister with device 1 inh INHALATION DAILY losartan 25 mg tablet 25 mg PO QHS Rx Instructions: HOLD IF SYSTOLIC <100 metoprolol succinate 25 mg tablet extended release 24 hr 25 mg PO DAILY Rx Instructions: HOLD hr <55 HOLD SYSTOLIC <95 metformin 1,000 mg tablet 1,000 mg PO BID calcium carbonate-vitamin D3 [Calcium 600 + D(3)] 600 mg-5 mcg (200 unit) tablet 1 tab PO BID pantoprazole 40 mg tablet,delayed release (DR/EC) 40 mg PO DAILY acetaminophen 325 mg Tablet 650 mg PO Q6H PRN PRN (Reason: Pain 1-10 Or Fever>100.7) Qty: 0 0RF spironolactone 50 mg Tablet 50 mg PO DAILY Qty: 0 0RF mirabegron [Myrbetriq] 50 mg tablet extended release 24 hr 50 mg PO DAILY tramadol 50 mg tablet 50 mg PO Q6H PRN PRN (Reason: pain) Trulance 3 mg tablet 3 mg PO DAILY 30 Days Qty: 30 6RF sucralfate 1 gram tablet 1 g PO BID Qty: 60 0RF Discontinued furosemide 40 mg tablet 40 mg PO BID ibuprofen 600 mg tablet 600 mg PO Q6H PRN PRN (Reason: pain) Referrals / Follow Up: Bertrand Warner MD [Primary Care Provider] - Within 1 Week Familia Ingram MD [Med Staff - Consulting] - Within 2 Weeks (For MARLA. Patient on diuretics for CHF) Disposition Disposition (needs filled in before D/C Order can be placed): Assisted Living Charges/Coding Visit Charges Inpatient E&M: 13674 Disch Hosp >30min
[2024-01-08] MEDS: Insulin Lispro 100 UNIT/ML INSULN.PEN SC (11:19)
[2024-01-09 09:09] LABS: Bedside Glucose 184 mg/dL (74-106)
== END 2024-01-08 13:50 | disposition home or self-care (01) | DRG 291 ==
LOC: ED 18:21 → PCU 21:49
PROVIDERS: Admitting Provider Family Medicine; Emergency Provider Emergency Medicine; PCP Family Medicine; Visit Provider Internal Medicine
DX: I13.0 Hypertensive heart and chronic kidney disease with heart failure and stage 1 through stage 4 chronic kidney disease, or unspecified chronic kidney disease (principal); I50.33 Acute on chronic diastolic (congestive) heart failure; I44.2 Atrioventricular block, complete; N13.8 Other obstructive and reflux uropathy; Z68.42 Body mass index [BMI] 45.0-49.9, adult; D63.1 Anemia in chronic kidney disease; E11.22 Type 2 diabetes mellitus with diabetic chronic kidney disease; Z95.1 Presence of aortocoronary bypass graft; J44.9 Chronic obstructive pulmonary disease, unspecified; E66.01 Morbid (severe) obesity due to excess calories; I48.0 Paroxysmal atrial fibrillation; F32.A Depression, unspecified; I25.10 Atherosclerotic heart disease of native coronary artery without angina pectoris; E78.5 Hyperlipidemia, unspecified; J30.9 Allergic rhinitis, unspecified; K21.9 Gastro-esophageal reflux disease without esophagitis; I87.2 Venous insufficiency (chronic) (peripheral); G47.33 Obstructive sleep apnea (adult) (pediatric); K58.9 Irritable bowel syndrome, unspecified; N18.2 Chronic kidney disease, stage 2 (mild); I89.0 Lymphedema, not elsewhere classified; F41.9 Anxiety disorder, unspecified; K58.1 Irritable bowel syndrome with constipation; Y92.099 Unspecified place in other non-institutional residence as the place of occurrence of the external cause; T41.5X6A Underdosing of therapeutic gases, initial encounter; R09.02 Hypoxemia; N40.1 Benign prostatic hyperplasia with lower urinary tract symptoms; R53.81 Other malaise; Z99.81 Dependence on supplemental oxygen; Z79.51 Long term (current) use of inhaled steroids; Z79.82 Long term (current) use of aspirin; Z79.84 Long term (current) use of oral hypoglycemic drugs; Z79.02 Long term (current) use of antithrombotics/antiplatelets; Z95.5 Presence of coronary angioplasty implant and graft; Z95.810 Presence of automatic (implantable) cardiac defibrillator
CPT/HCPCS: 36415; 71045; 80048; 80053; 82962; 83735; 83880; 84484; 85025; 88305; 88342; 93005; 94002; 94003; 94640; 94668; 97162; 97166; 97530; 97535; 97802; 99285; J7120; A4216; J1940; J2405

== ENCOUNTER 2024-01-08 15:43 | Emergency (ER) | payer MEDICARE, MEDICAID, SELFPAY ==
[2024-01-08 15:43] VITALS: BP 118/61; PULSE 70; RESP 18; TEMP 36.6; O2SAT 93; BMI 49.3
--- NOTE | 2024-01-08 16:19 | EX.ED.UPPERE ---
HPI History of Present Illness Chief Complaint: Upper Extremity Injury Informant: patient, EMS and other (Assisted living staff social group worker) Narrative Narrative: 83-year-old male presenting to the emergency room with right wrist and hand pain and swelling. Reportedly the patient was just admitted to the hospital and was discharged back to his assisted living facility. He was declining transfer to [facility] facility. Assisted living staff stated that he could not get up off the commode because the handlebar that he uses to lift it up is on his left and his left hand is hurting. He states he had an IV in his left wrist bone. He states that now it is swollen. He did not notice this until he got home. He states that he was on a blood thinner while in the hospital and chart review shows that he was on Lovenox injections. Assisted living staff states that he is not appropriate for their facility. I spoke with our social group worker at the hospital. [facility] Medical History History of echocardiogram Lives in assisted living facility [facility] as ambulation aid Arthritis Dietary restriction On home oxygen therapy Anxiety Depression CKD (chronic kidney disease), stage II Constipation Esophageal stricture Wears glasses Cancer Pancreatic abnormality Thyroid disease Shortness of breath on exertion Cardiology follow-up encounter Dysphagia GERD (gastroesophageal reflux disease) Atrial fibrillation Congestive heart failure (CHF) Diabetes Non-smoker BiPAP (biphasic positive airway pressure) dependence Asthma COPD (chronic obstructive pulmonary disease) Hyperlipemia Pacemaker Hypertension Ulcer of right lower extremity with fat layer exposed Ulcer of left lower extremity with fat layer exposed Chest pain Fall Paroxysmal atrial fibrillation Complete heart block 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 Atherosclerosis of coronary artery of [place] heart without angina pectoris Junctional escape rhythm Chronic venous insufficiency Swelling of lower extremity Edema of both legs Morbid obesity Prostate cancer Venous stasis dermatitis of both lower extremities Cholecystitis CHF (congestive heart failure) Ileus following gastrointestinal surgery Obstructive sleep apnea HLD (hyperlipidemia) DM2 (diabetes mellitus, type 2) Benign essential HTN Home Medications ?Medication ?Instructions ?Recorded ?Last Taken ?Type aspirin 81 mg chewable tablet 81 mg PO DAILY HEALTH MAINTENANCE 06/09/13 12/31/23 History nitroglycerin 0.4 mg sublingual 0.4 mg sublingual Q5M PRN Chest 06/09/13 10/17/16 09:00 History tablet Pain magnesium oxide 400 mg (241.3 mg 400 mg PO DAILY MAGNESIUM 10/07/15 01/02/24 History magnesium) tablet atorvastatin 80 mg tablet 80 mg PO QHS HLD 08/05/18 01/02/24 History cholecalciferol (vitamin D3) 50 2,000 unit PO BID SUPPLEMENT 11/24/19 01/02/24 History mcg (2,000 unit) capsule fluticasone propionate 50 2 spray NASAL DAILY ALLERGIES 11/24/19 01/02/24 History mcg/actuation nasal spray,suspension montelukast 10 mg tablet 10 mg PO QHS ALLERGIES 11/24/19 01/02/24 History glimepiride 4 mg tablet 4 mg PO BREAKFAST DM 01/09/21 01/02/24 History mirtazapine 15 mg tablet 15 mg PO QHS mental health 01/09/21 01/02/24 History tamsulosin 0.4 mg capsule 0.4 mg PO QHS prostate 01/09/21 01/02/24 History docusate sodium 100 mg capsule 100 mg PO DAILY stool softner 07/15/21 01/02/24 History clopidogrel 75 mg tablet 75 mg PO DAILY prevent clots #30 11/17/22 01/01/24 Rx tabs fluticasone furoate 200 1 inh inhalation DAILY Check with 11/17/22 01/02/24 History mcg-vilanterol 25 mcg/dose primary doctor inhalation powder (Breo Ellipta) isosorbide mononitrate 30 mg 30 mg PO DAILY bp, heart #30 tabs 11/17/22 06/20/23 Rx tablet,extended release 24 hr losartan 25 mg tablet 25 mg PO QHS Check with primary 11/17/22 01/02/24 History doctor metoprolol succinate 25 mg 25 mg PO DAILY Check with primary 11/17/22 01/02/24 History tablet,extended release 24 hr doctor calcium carbonate 600 mg-vitamin 1 tab PO BID supplement 06/09/23 01/02/24 History D3 5 mcg (200 unit) tablet (Calcium 600 + D(3)) pantoprazole 40 mg tablet,delayed 40 mg PO DAILY GERD 06/09/23 01/02/24 History release metformin 1,000 mg tablet 1,000 mg PO BID blood glucose 06/20/23 01/02/24 History acetaminophen 325 mg tablet 650 mg (2 x 325 mg) PO Q6H PRN PRN 06/25/23 Unknown Rx Pain 1-10 Or Fever>100.7 #0 tabs spironolactone 50 mg tablet 50 mg PO DAILY directic #0 tabs 06/25/23 01/02/24 Rx plecanatide 3 mg tablet (Trulance) 3 mg PO DAILY chronic constipation 06/28/23 01/02/24 Rx 30 days #30 tabs buspirone 15 mg tablet 15 mg PO TID mood 10/25/23 01/02/24 History mirabegron 50 mg tablet,extended 50 mg PO DAILY . 12/07/23 01/02/24 History release 24 hr (Myrbetriq) tramadol 50 mg tablet 50 mg PO Q6H PRN PRN pain 12/30/23 Unknown History sucralfate 1 gram tablet 1 g PO BID #60 tabs 01/07/24 Unknown Rx ammonium lactate 12 % topical cream 1 applic topical BID 01/08/24 Unknown History psyllium husk (aspartame) 3 gram 1 packet PO DAILY PRN PRN 01/08/24 Unknown Rx oral powder packet (Daily Fiber Constipation #0 ea (psyllium-aspartame)) torsemide 40 mg tablet 40 mg PO BID 1 month #60 tabs 01/08/24 Unknown Rx Allergy/AdvReac Type Severity Reaction Status Date / Time lisinopril Allergy Unknown Verified 01/08/24 15:47 paroxetine (From Paxil) Allergy NEEDS Verified 01/08/24 15:47 FOLLOW-UP sertraline Allergy Unknown Verified 01/08/24 15:47 enoxaparin (From Lovenox) AdvReac PT UNSURE Verified 01/08/24 15:47 OF REACTION Family History Mother Lung cancer Father CAD (coronary artery disease) Hypertension Heart disease Myocardial infarction Brother Myocardial infarction Hypertension Heart disease CAD (coronary artery disease) Surgical History History of cardiac catheterization History of appendectomy History of coronary artery stent placement S/P CABG x 2 Coronary angioplasty status History of bilateral hip arthroplasty History of cholecystectomy Hx of CABG H/O coronary artery bypass surgery Presence of cardiac pacemaker Status post cholecystectomy Social History household members: none housing: assisted living facility number of children: 0 current occupational status: retired Smoking Status: Never smoker alcohol intake: never substance use type: does not use ROS ROS ED Constitutional Constitutional ED: Denies chills or weight loss Eyes Eyes: Denies change in vision or diplopia ENT ENT ED: Denies ear pain, rhinorrhea or sore throat Cardiovascular Cardiovascular: Denies chest pain, orthopnea, palpitations or racing heartbeat Respiratory/Chest Respiratory/Chest: Reports dyspnea; Denies cough or orthopnea Gastrointestinal Gastrointestinal: Denies abdominal pain, diarrhea, nausea or vomiting Genitourinary Genitourinary ED: Denies dysuria, hematuria or urinary frequency Musculoskeletal Musculoskeletal: Denies arthralgias or myalgias Integumentary Denies abscess or rash Neurologic Neurologic: Denies headache(s) or weakness Psychiatric Psychiatric: Denies anxiety, depression, suicidal ideation or suicidal thoughts Endocrine Endocrinology: Denies polydipsia, polyphagia or polyuria Allergic/Immunologic Allergic/Immunologic ED: Denies mouth swelling, tongue swelling or urticaria EXAM Physical Exam Const Vital Signs: 01/08/24 15:43 Temperature 98 F Temperature Source Oral Pulse Rate 70 Respiratory Rate 18 Blood Pressure 118/61 Blood Pressure Mean 80 Pulse Ox 93 Oxygen Delivery Method Room Air Positive well nourished, well developed and obese General Appearance ED: well developed Nutritional Appearance: obese HEENT Reports normocephalic, head/scalp atraumatic and moist mucous membranes Eyes PERRL and EOMs intact bilaterally Neck no lymphadenopathy, supple and no JVD Resp normal respiratory effort and clear to auscultation bilaterally Cardio regular rate, regular rhythm and no murmurs GI normal to inspection, nondistended, normoactive bowel sounds and non-tender Palpation: soft Back/Spine no CVA tenderness and normal ROM Extremity Extremity Narrative: Patient reports tenderness to palpation along the dorsum of the right wrist and hand. There is mild swelling when compared to the left. Less than 2-second capillary refill. At the site of his IV is some tenderness along the vein. I do not however appreciate any significant thrombosis of the superficial vein. General Extremety ED: Yes edema; Negative for palpable cord General Extremity: edema left upper extremity mild; Negative for palpable cord Neuro oriented x3 and CN's II-XII intact bilaterally Sensorium / Orientation: alert Motor Exam: strength 5/5 throughout Psych mental status grossly normal Mood & Affect: Negative for depressed or tearful Skin no rashes or lesions noted and no wounds MDM MDM MDM Narrative Medical decision making narrative: My independent interpretation of the plain films of the left hand is no acute fracture. No subcutaneous air. I do not have access to upper extremity duplex ultrasound I have low suspicion for DVT of the arm given that he was on Lovenox. This may be related to his peripheral IV. Apparently he cannot go back to his assisted living center. Plan will be to admit him socially and try to get him into [facility] After patient was seen by the hospitalist I am informed by nursing that nursing grading supervisor spoke with the divisional human resources director at the facility where he is at and he can return there. Patient is comfortable with this. I will have him treat for superficial thrombophlebitis even though not palpating a palpable cord at this time. I will have him use warm compresses full-strength aspirin and should he develop more proximal symptoms worsening symptoms he may require a duplex ultrasound to rule out DVT. History & Record Review Discussion w/independent historian: Patient Discharge Plan Triage Chief Complaint: Upper Extremity Injury ED Provider: James Israel Dx/Rx/DC Orders Clinical Impression: Swelling of left hand, Adult failure to thrive, Congestive heart failure, H/O coronary artery bypass surgery Prescriptions: No Action buspirone 15 mg tablet 15 mg PO TID nitroglycerin 0.4 MG tablet 0.4 mg sublingual Q5M PRN (Reason: Chest Pain) Patient Comments: CHEST aspirin 81 MG tablet,chewable 81 mg PO DAILY Patient Comments: HEART HEALTH magnesium oxide 400 MG tablet 400 mg PO DAILY Patient Comments: MAGNESIUM SUPPLEMENT atorvastatin 80 MG tablet 80 mg PO QHS montelukast 10 MG tablet 10 mg PO QHS fluticasone propionate 1 SPRAY spray,suspension 2 spray NASAL DAILY cholecalciferol (vitamin D3) 2,000 UNIT capsule 2,000 unit PO BID tamsulosin 0.4 mg Capsule 0.4 mg PO QHS mirtazapine 15 mg Tablet 15 mg PO QHS glimepiride 4 mg Tablet 4 mg PO BREAKFAST docusate sodium 100 MG capsule 100 mg PO DAILY clopidogrel 75 mg Tablet 75 mg PO DAILY Qty: 30 0RF isosorbide mononitrate 30 mg Tablet Extended Release 24 Hr 30 mg PO DAILY Qty: 30 0RF fluticasone furoate-vilanterol [Breo Ellipta] 200-25 mcg/dose blister with device 1 inh INHALATION DAILY losartan 25 mg tablet 25 mg PO QHS Rx Instructions: HOLD IF SYSTOLIC <100 metoprolol succinate 25 mg tablet extended release 24 hr 25 mg PO DAILY Rx Instructions: HOLD hr <55 HOLD SYSTOLIC <95 metformin 1,000 mg tablet 1,000 mg PO BID calcium carbonate-vitamin D3 [Calcium 600 + D(3)] 600 mg-5 mcg (200 unit) tablet 1 tab PO BID pantoprazole 40 mg tablet,delayed release (DR/EC) 40 mg PO DAILY acetaminophen 325 mg Tablet 650 mg PO Q6H PRN PRN (Reason: Pain 1-10 Or Fever>100.7) Qty: 0 0RF spironolactone 50 mg Tablet 50 mg PO DAILY Qty: 0 0RF mirabegron [Myrbetriq] 50 mg tablet extended release 24 hr 50 mg PO DAILY tramadol 50 mg tablet 50 mg PO Q6H PRN PRN (Reason: pain) Daily Fiber (psyllium-aspart) 3 gram Powder In Packet 1 packet PO DAILY PRN PRN (Reason: Constipation) Qty: 0 0RF torsemide 40 mg tablet 40 mg PO BID 30 Days Qty: 60 1RF Rx Instructions: Hold for MARLA ammonium lactate 12 % cream 1 applic topical BID Trulance 3 mg tablet 3 mg PO DAILY 30 Days Qty: 30 6RF sucralfate 1 gram tablet 1 g PO BID Qty: 60 0RF Primary Care Provider: Bertrand Warner Referrals: Bertrand Warner MD [Primary Care Provider] - 2 Days Activity Restrictions/Additional Instructions: I would recommend warm compresses or heating pad. Please use the arm/hand frequently. You may wish to take a full-strength aspirin until symptoms resolved. Should you develop more symptoms proximal to the wrist this may require you to have a formal ultrasound of the upper extremity. Print Language: Citizen Of [place] Disposition Disposition: Home, Self Care
--- NOTE | 2024-01-08 16:36 | ED.RN ---
Spoke to June dialysis social worker from [facility]. [facility] nurse had called prior to patient coming in and was angry. She was yelling and stating that she couldn't believe that we had sent the patient back. She stated that they do not have the staff to take care of this patient. She stated that the doctor from [facility] had written a letter stating that the patient couldn't go back and that he needed SNF. Patient was discharged from [facility] today. When he got back to [facility] his wrist was hurting where the IV site was and he couldn't get back up off the toilet. I asked the nurse from [facility] is he came back from the ED. The nurse stated no that he had been admitted on the floor. I explained there was nothing the ED could do but see the patient when he gets here. I told her that I was sure that the floor had taken into consideration the patients wishes as well as his wellbeing. Her response was that she was just letting me know that they can not take care of him. The squad stated that they had a pissing match with the staff and the patient. [facility] ended up bringing him here anyway. Patient is being treated at this point. June TIJERINA stated that she was sorry and they had everything set up for him at home. The patient does not want SNF. Jnue TIJERINA stated that we would have to admit the patient and they would start from the beginning on Wednesday. Dr Israel is aware.
--- NOTE | 2024-01-08 16:49 | ED.RN ---
This RN updated pt on plan to admit for further consultation and evaluation of admission to higher level of care than his current assisted living situation. Pt became angry, states I will never go to a [facility]. This RN advised pt his options would be discussed by case management on Wednesday. Pt states he will speak to his own caseworker protective services, Not you fiordaliza's caseworker protective services. Pt is happy with admission to hospital, states I'll just go back to my room now, it's 114. RN advised pt he would likely be admitted to a different room. Pt requests my purewick you always give me, otherwise you'll have to clean me up. Male purewinir applied.
--- NOTE | 2024-01-08 17:00 | RAD_ITS ---
INDICATION: pain EXAMINATION/TECHNIQUE: X-RAY - LEFT XR Hand Min 3 Views 3 VIEWS COMPARISON: No relevant prior comparison study available FINDINGS: SOFT TISSUES: No soft tissue swelling or gas. Surgical clips in the distal forearm. BONES/JOINTS: No acute fracture or subluxation.. Normal alignment. Preservation of the joint space.. No sclerotic or destructive changes observed. RAD/Hand Min 3 Views IMPRESSION: No demonstrated acute osseous changes. Electronically Signed: Ronn Buckley MD at 17:22 EDT ,
--- NOTE | 2024-01-08 17:11 | HP.PCM.HOS_ITS ---
[facility] - General General Date of Admission: 01/08/24 Date of Service: 01/08/24 Chief Complaint: Adult FTT, Unable to care for self at Assisted Living [facility] Narrative The patient is an 82 y/o M w/ PMHx: CKD stage II per GFR trending, Chronic anemi a, Asthma/COPD with allergic rhinitis, EDMOND on BIPAP, CAD s/p PCI x 1 and CABG x 2, GERD, HTN, HLD, HFpEF, Hypothyroidism, Diabetes mellitus type II, BPH, Anxiety and Depression, Hx complete HB s/p pacemaker, recent discharge 12/10/23 following evaluation and treatment of acute on chronic heart failure exacerbation with preserved EF to his assisted living but unsuccessful in caring for himself and incorrectly using his oxygen, represented to the [facility] 01/04/24 and again admitted for hypoxia associated w/ HF exacerbation with readmission, discharged on same day of current presentation 01/08/24 with transition to torsemide from lasix and fiber daily regimen who now re-presents as when patient arrived to the assisted living he was complaining of left forearm discomfort at a recent IV site and per staff was refusing to get up from the toilet; however, he also mentioned to staff and EMS his dislike of the assisted living and preference of [facility] food. Upon discussion with staff it was reported that patient declined at least on occasion therapy assessments during his recent admission and declined skilled facility placement prompting the return once he was clinically appropriate to assisted living. At this time the assisted living physician is refusing to take him back. Patient has been made aware that he is unable to return to the assisted living and he has been strongly encouraged to continue with physical and Occupational Therapy assessments with plan skilled facility placement. Discussed in the ED workup included strongly with patient that he would be expected to assist in his self-care to improve his endurance. In the ED workup included T98, heart 70, BP 118/61, respiratory rate 18, 93% on room air, plain film of the left hand with no acute findings. [facility] Medical History History of echocardiogram Lives in assisted living facility [facility] as ambulation aid Arthritis Dietary restriction On home oxygen therapy Anxiety Depression CKD (chronic kidney disease), stage II Constipation Esophageal stricture Wears glasses Cancer Pancreatic abnormality Thyroid disease Shortness of breath on exertion Cardiology follow-up encounter Dysphagia GERD (gastroesophageal reflux disease) Atrial fibrillation Congestive heart failure (CHF) Diabetes Non-smoker BiPAP (biphasic positive airway pressure) dependence Asthma COPD (chronic obstructive pulmonary disease) Hyperlipemia Pacemaker Hypertension Ulcer of right lower extremity with fat layer exposed Ulcer of left lower extremity with fat layer exposed Chest pain Fall Paroxysmal atrial fibrillation Complete heart block 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 Atherosclerosis of coronary artery of habematolel heart without angina pectoris Junctional escape rhythm Chronic venous insufficiency Swelling of lower extremity Edema of both legs Morbid obesity Prostate cancer Venous stasis dermatitis of both lower extremities Cholecystitis CHF (congestive heart failure) Ileus following gastrointestinal surgery Obstructive sleep apnea HLD (hyperlipidemia) DM2 (diabetes mellitus, type 2) Benign essential HTN Home Medications ?Medication ?Instructions ?Recorded ?Last Taken ?Type aspirin 81 mg chewable tablet 81 mg PO DAILY HEALTH MAINTENANCE 06/09/13 12/31/23 History nitroglycerin 0.4 mg sublingual 0.4 mg sublingual Q5M PRN Chest 06/09/13 10/17/16 09:00 History tablet Pain magnesium oxide 400 mg (241.3 mg 400 mg PO DAILY MAGNESIUM 10/07/15 01/02/24 History magnesium) tablet atorvastatin 80 mg tablet 80 mg PO QHS HLD 08/05/18 01/02/24 History cholecalciferol (vitamin D3) 50 2,000 unit PO BID SUPPLEMENT 11/24/19 01/02/24 History mcg (2,000 unit) capsule fluticasone propionate 50 2 spray NASAL DAILY ALLERGIES 11/24/19 01/02/24 History mcg/actuation nasal spray,suspension montelukast 10 mg tablet 10 mg PO QHS ALLERGIES 11/24/19 01/02/24 History glimepiride 4 mg tablet 4 mg PO BREAKFAST DM 01/09/21 01/02/24 History mirtazapine 15 mg tablet 15 mg PO QHS mental health 01/09/21 01/02/24 History tamsulosin 0.4 mg capsule 0.4 mg PO QHS prostate 01/09/21 01/02/24 History docusate sodium 100 mg capsule 100 mg PO DAILY stool softner 07/15/21 01/02/24 History clopidogrel 75 mg tablet 75 mg PO DAILY prevent clots #30 11/17/22 01/01/24 Rx tabs fluticasone furoate 200 1 inh inhalation DAILY Check with 11/17/22 01/02/24 History mcg-vilanterol 25 mcg/dose primary doctor inhalation powder (Breo Ellipta) isosorbide mononitrate 30 mg 30 mg PO DAILY bp, heart #30 tabs 11/17/22 06/20/23 Rx tablet,extended release 24 hr losartan 25 mg tablet 25 mg PO QHS Check with primary 11/17/22 01/02/24 History doctor metoprolol succinate 25 mg 25 mg PO DAILY Check with primary 11/17/22 01/02/24 History tablet,extended release 24 hr doctor calcium carbonate 600 mg-vitamin 1 tab PO BID supplement 06/09/23 01/02/24 History D3 5 mcg (200 unit) tablet (Calcium 600 + D(3)) pantoprazole 40 mg tablet,delayed 40 mg PO DAILY GERD 06/09/23 01/02/24 History release metformin 1,000 mg tablet 1,000 mg PO BID blood glucose 06/20/23 01/02/24 History acetaminophen 325 mg tablet 650 mg (2 x 325 mg) PO Q6H PRN PRN 06/25/23 Unknown Rx Pain 1-10 Or Fever>100.7 #0 tabs spironolactone 50 mg tablet 50 mg PO DAILY directic #0 tabs 06/25/23 01/02/24 Rx plecanatide 3 mg tablet (Trulance) 3 mg PO DAILY chronic constipation 06/28/23 01/02/24 Rx 30 days #30 tabs buspirone 15 mg tablet 15 mg PO TID mood 10/25/23 01/02/24 History mirabegron 50 mg tablet,extended 50 mg PO DAILY . 12/07/23 01/02/24 History release 24 hr (Myrbetriq) tramadol 50 mg tablet 50 mg PO Q6H PRN PRN pain 12/30/23 Unknown History sucralfate 1 gram tablet 1 g PO BID #60 tabs 01/07/24 Unknown Rx ammonium lactate 12 % topical cream 1 applic topical BID 01/08/24 Unknown History psyllium husk (aspartame) 3 gram 1 packet PO DAILY PRN PRN 01/08/24 Unknown Rx oral powder packet (Daily Fiber Constipation #0 ea (psyllium-aspartame)) torsemide 40 mg tablet 40 mg PO BID 1 month #60 tabs 05/18/24 Unknown Rx Allergy/AdvReac Type Severity Reaction Status Date / Time lisinopril Allergy Unknown Verified 01/08/24 15:47 paroxetine (From Paxil) Allergy NEEDS Verified 01/08/24 15:47 FOLLOW-UP sertraline Allergy Unknown Verified 01/08/24 15:47 enoxaparin (From Lovenox) AdvReac PT UNSURE Verified 01/08/24 15:47 OF REACTION Family History Mother Lung cancer Father CAD (coronary artery disease) Hypertension Heart disease Myocardial infarction Brother Myocardial infarction Hypertension Heart disease CAD (coronary artery disease) Surgical History History of cardiac catheterization History of appendectomy History of coronary artery stent placement S/P CABG x 2 Coronary angioplasty status History of bilateral hip arthroplasty History of cholecystectomy Hx of CABG H/O coronary artery bypass surgery Presence of cardiac pacemaker Status post cholecystectomy Social History household members: none housing: assisted living facility number of children: 0 current occupational status: retired Smoking Status: Never smoker alcohol intake: never substance use type: does not use ROS ROS Narrative Admission Review of Systems: CONSTITUTIONAL: No weight loss, fever, chills, + weakness or fatigue. HEENT: Eyes: No visual loss, blurred vision, double vision or yellow sclerae. Ears, Nose, Throat: No hearing loss, sneezing, congestion, runny nose or sore throat. SKIN: No rash or itching, lesions, wounds except + chronic bilateral lower extremity stasis blisters and significant venous stasis skin changes, stasis disease changes. CARDIOVASCULAR:+ Chronic orthopnea, edema. No chest pain, chest pressure or chest discomfort, palpitations, syncopal events. RESPIRATORY: + Chronic shortness of breath worse with activity attempts, improved since prior admission. No marked cough, sputum production, wheezing, hemoptysis. GASTROINTESTINAL: No anorexia, nausea, vomiting or diarrhea, abdominal pain, melena, BRBPR. GENITOURINARY: No dysuria, frequency, urgency or retention. NEUROLOGICAL: No headache, dizziness, syncope, paralysis, ataxia, numbness or tingling in the extremities, focal weakness, change in bowel or bladder control, seizure. MUSCULOSKELETAL: + Muscle, back pain, joint pain or stiffness. HEMATOLOGIC: + Chronic anemia, easy bleeding or bruising. LYMPHATICS: No enlarged nodes. No history of splenectomy. PSYCHIATRIC: + History of anxiety and depression. ENDOCRINOLOGIC: No reports of sweating, cold or heat intolerance. No polyuria or polydipsia. ALLERGIES: + History of asthma and allergic rhinitis. Vital Signs Vital Signs Vital Signs: 01/08/24 15:43 Temperature 98 F Temperature Source Oral Pulse Rate 70 Respiratory Rate 18 Blood Pressure 118/61 Blood Pressure Mean 80 Pulse Ox 93 Oxygen Delivery Method Room Air Weight Weight: 363 lb 12.203 oz Body Mass Index (BMI) 49.3 Physical Exam Narrative Physical Examination: General: Awake, alert, oriented x 3 and cooperative, seated upright in ED bed, no acute distress, denies any complaints even when left arm is evaluated and palpated. Skin: Normal color, normal turgor, no icterus, no cyanosis with dressings in place from day of presentation with history of notable bilateral lower extremity venous stasis skin changes with notable stasis blisters bilaterally. HEENT: AT/NC, EOMI, PERRLA, MMM, no appreciated carotid bruits, no marked JVD noted although difficult assessment given thickened neck. Lungs: Diminished, greater bases, no evidence of any distress, no marked rales, rhonchi or wheezing. Heart: Paced, currently regular rhythm; no gallop, rub audible. Abdomen: Soft, morbidly obese, NTTP, distant normal BS, difficult to assess abdominal distention or HSM secondary to habitus Extremities: No cyanosis, no clubbing, see skin. No evidence of any marked edema, erythema to the LUE. Neurological: Patient awake, alert, oriented as noted, cognitive function intact; pupils equally reactive to light and accommodation, cranial nerves II- XII grossly normal, moving all 4 extremities, no focal deficits, strength moderately to severely globally decreased secondary to patient underlying co- morbidities, habitus and suspected also patient preference. Psychiatric: Affect appears normal, no acute evidence of depressive or anxiety feelings but does have underlying history. Assessment & Plan Assessment/Plan (1) Adult failure to thrive: PLAN: Plan The patient is an 82 y/o M w/ PMHx: CKD stage II per GFR trending, Chronic anemia, Asthma/COPD with allergic rhinitis, EDMOND on BIPAP, CAD s/p PCI x 1 and CABG x 2, GERD, HTN, HLD, HFpEF, Hypothyroidism, Diabetes mellitus type II, BPH, Anxiety and Depression, Hx complete HB s/p pacemaker, discharged on same day of presentation 01/08/24 with acute HF exacerbation w/ transition to torsemide from lasix and fiber daily regimen who now re-presents as when patient arrived to the assisted living he was complaining of left forearm discomfort at a recent IV site and per staff was refusing to get up from the toilet; however, he also mentioned to staff and EMS his dislike of the assisted living and preference of [facility] food. #1. Adult FTT secondary to Suspected Underlying Comorbidities, Morbidly obese habitus and Patient willingness/preference: Given patient has been declined at assisted [facility] and from discussion with staff unwilling to perform the activities they request but also unable to care for self at the level of needs of assisted living will admit to [facility], continue all medications from his recent discharge, maintain on fall precautions, strongly encourage as much self care as patient is able to assist in building his endurance and abilities, PT/OT/CM consultation for discharge planning. #2. LUE discomfort, suspected superficial thrombophlebitis status post recent IV placement: Plain film of the left upper extremity unremarkable, no concerning findings on evaluation, will place warm compresses and encourage elevation. #3. HFpEF with recurrent hypoxia on chronic 2 L supplementation status post recent discharge: Given resolved and compensated appearance will at this time continue patient oral regimen from recent discharge including aspirin, Plavix, statin, metoprolol, losartan, spironolactone and recently transitioned to torsemide. If necessary will judiciously hydrate. Will maintain on fluid restriction until assess patient oral intake abilities to control his fluid intake appropriately to avoid recurrent exacerbation. #4. Chronic Kidney Disease Stage II per GFR trending prior: Will obtain CBC and BMP in AM, but will defer repeat as patient was just discharged on current day of presentation, baseline creatinine primarily 0.9-1.1. #5. Bilateral Lower Extremity significant chronic venous stasis disease with chronic stasis ulcers: Will continue soap and water warm cleansing daily, dressings to stasis blister regions as needed, snug Oziel wraps with elevation. #6. CAD: Status post PCI and CABG, continue aspirin, plavix, statin, metoprolol, losartan. #7. PAF: Patient not chronically anticoagulated, continue patient home asa, plavix, metoprolol regimen. #8. Chronic COPD/asthma with allergic rhinitis: Will hold home inhalers and in the interim transition to ATC budesonide therapy, PRN albuterol, HOB, IS parameters, continue patient home Singulair and fluticasone regimen. #9. Diabetes mellitus type II: Given patient recent discharge and admission purely for skilled placement will at this time continue oral home regimen but certainly could reassess if needed, ADA diet, accu checks w/ ISS. #10. Anxiety and depression: We will continue patient home mirtazapine regimen #11. Hypertension: Will continue home regimen including metoprolol, isosorbide, losartan, spironolactone, torsemide, PRN hydralazine. #12. Hyperlipidemia: Continue home statin regimen. #13. History complete heart block: Status post pacemaker placement, encourage continued outpatient follow-up with cardiology as previously arranged. #14. Morbid Obesity: Weight loss and lifestyle changes encouraged. #15. GERD: Will continue patient on PPI. #16. BPH: Will continue patient on Flomax regimen. #17. Chronic normocytic anemia: Will obtain CBC and BMP in AM, will not repeat now given recent discharge on day of presentation, most recent baseline of appears 11-12 range. #18. EDMOND: BiPAP nightly. #19. DVT prophylaxis: Heparin. #20. CODE status: Patient NICOLAS is Armaan his brother and living will is currently in place. Full Code status. Charges/Coding Visit Charges Inpatient E&M: 71260 Init Hosp L2
[2024-01-08 17:38] VITALS: BP 128/57; PULSE 71; RESP 22; TEMP 36.9; O2SAT 93
--- NOTE | 2024-01-08 18:23 | NURSING ---
Spoke with Dr. Grace in regards to admission, states was told pt could not go back to [facility] but did not need admit. Spoke with Kaur TIJERINA about pt and readmission. Stated if [facility] was refusing pt we needed to readmit for NH placement but [facility] and Case management had worked all week with pt and pt refused SNF admission. Prior to discharge from PCU today patient was ambulatory and independent. I then spoke with Diandra the nurse from [facility] who said pt could not come back because he can not do for himself. When informed that patient did not meet admission criteria, stated Im the only nurse here and there is only one aide and we are not breaking our backs to get him up. I again informed her that he did not meet admission criteria and needed to come back to his home. Sugar then gave me the number to the DON Steph Monzon. I called Steph and explained the situation with her, and was told by Steph that the patient had a note from his PCP that the pt needs SNF placement. I informed Steph of my conversation with [facility]REE[facility] and the patients refusal for SNF. I also informed her that that patients triage note stated his wrist hurt from where the IV was and he liked the food at [facility] better. I informed her that this does not meet admission criteria and that [facility] had also worked to get the patient Home Health visits and that [facility] could work on SNF placement from their facility as patient is still refusing while in ED. Steph stated she would call Diandra and inform her patient would be returning.
[2024-01-08 19:43] VITALS: BP 119/65; PULSE 79; RESP 16; O2SAT 95
--- NOTE | 2024-01-08 20:09 | ED.RN ---
Pt going back as wheelchair by cot by [facility]. Pt is able to ambulate but is not able to transfer without one person assist.
[2024-01-08 20:10] VITALS: BP 119/65; PULSE 79; RESP 16; TEMP 36.7; O2SAT 95
== END 2024-01-08 20:23 | disposition home or self-care (01) ==
PROVIDERS: Emergency Provider Emergency Medicine; PCP Family Medicine; Visit Provider Emergency Medicine
DX: M79.89 Other specified soft tissue disorders (principal); I13.0 Hypertensive heart and chronic kidney disease with heart failure and stage 1 through stage 4 chronic kidney disease, or unspecified chronic kidney disease; I50.9 Heart failure, unspecified; J44.9 Chronic obstructive pulmonary disease, unspecified; I48.0 Paroxysmal atrial fibrillation; E11.22 Type 2 diabetes mellitus with diabetic chronic kidney disease; R62.7 Adult failure to thrive; E78.5 Hyperlipidemia, unspecified; N18.2 Chronic kidney disease, stage 2 (mild); E66.9 Obesity, unspecified; Z79.84 Long term (current) use of oral hypoglycemic drugs; Z79.899 Other long term (current) drug therapy; Z79.82 Long term (current) use of aspirin; Z79.51 Long term (current) use of inhaled steroids; Z79.01 Long term (current) use of anticoagulants; Z95.5 Presence of coronary angioplasty implant and graft; Z95.1 Presence of aortocoronary bypass graft
CPT/HCPCS: 73130; 99284

== ENCOUNTER 2024-01-23 19:07 | Emergency (ER) | payer MEDICARE, MEDICAID, SELFPAY ==
[2024-01-23 19:10] VITALS: BP 127/60; PULSE 64; RESP 20; TEMP 36.8; O2SAT 94; BMI 48.0
--- NOTE | 2024-01-23 19:30 | EDS_ITS ---
[facility] <SEYMOUR Perdue - Last Filed: 01/23/24 19:34> History of Present Illness Chief Complaint: Laceration Narrative Narrative: Patient is an 83-year-old male with history of neuropathy, kidney disease, hypertension, history of bypass on Plavix who presents to the emergency department with right lower leg injury. Patient dates he was making chicken at his assisted living facility. He dropped a knife, and developed a skin tear to the right medial lower leg. He did have some bleeding, they could not get the bleeding to stop and they called the ambulance. Patient states his tetanus vaccination was less than 3 years ago. [facility] <SEYMOUR Perdue - Last Filed: 01/23/24 19:34> [facility] Medical History History of echocardiogram Lives in assisted living facility [facility] as ambulation aid Arthritis Dietary restriction On home oxygen therapy Anxiety Depression CKD (chronic kidney disease), stage II Constipation Esophageal stricture Wears glasses Cancer Pancreatic abnormality Thyroid disease Shortness of breath on exertion Cardiology follow-up encounter Dysphagia GERD (gastroesophageal reflux disease) Atrial fibrillation Congestive heart failure (CHF) Diabetes Non-smoker BiPAP (biphasic positive airway pressure) dependence Asthma COPD (chronic obstructive pulmonary disease) Hyperlipemia Pacemaker Hypertension Ulcer of right lower extremity with fat layer exposed Ulcer of left lower extremity with fat layer exposed Chest pain Fall Paroxysmal atrial fibrillation Complete heart block 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 Atherosclerosis of coronary artery of [place] heart without angina pectoris Junctional escape rhythm Chronic venous insufficiency Swelling of lower extremity Edema of both legs Morbid obesity Prostate cancer Venous stasis dermatitis of both lower extremities Cholecystitis CHF (congestive heart failure) Ileus following gastrointestinal surgery Obstructive sleep apnea HLD (hyperlipidemia) DM2 (diabetes mellitus, type 2) Benign essential HTN Home Medications ?Medication ?Instructions ?Recorded ?Last Taken ?Type aspirin 81 mg chewable tablet 81 mg PO DAILY HEALTH MAINTENANCE 06/09/13 12/31/23 History nitroglycerin 0.4 mg sublingual 0.4 mg sublingual Q5M PRN Chest 06/09/13 10/17/16 09:00 History tablet Pain magnesium oxide 400 mg (241.3 mg 400 mg PO DAILY MAGNESIUM 10/07/15 01/02/24 History magnesium) tablet atorvastatin 80 mg tablet 80 mg PO QHS HLD 08/05/18 01/02/24 History cholecalciferol (vitamin D3) 50 2,000 unit PO BID SUPPLEMENT 11/24/19 01/02/24 History mcg (2,000 unit) capsule fluticasone propionate 50 2 spray NASAL DAILY ALLERGIES 11/24/19 01/02/24 History mcg/actuation nasal spray,suspension montelukast 10 mg tablet 10 mg PO QHS ALLERGIES 11/24/19 01/02/24 History glimepiride 4 mg tablet 4 mg PO BREAKFAST DM 01/09/21 01/02/24 History mirtazapine 15 mg tablet 15 mg PO QHS mental health 01/09/21 01/02/24 History tamsulosin 0.4 mg capsule 0.4 mg PO QHS prostate 01/09/21 01/02/24 History docusate sodium 100 mg capsule 100 mg PO DAILY stool softner 07/15/21 01/02/24 History clopidogrel 75 mg tablet 75 mg PO DAILY prevent clots #30 11/17/22 01/01/24 Rx tabs fluticasone furoate 200 1 inh inhalation DAILY Check with 11/17/22 01/02/24 History mcg-vilanterol 25 mcg/dose primary doctor inhalation powder (Breo Ellipta) isosorbide mononitrate 30 mg 30 mg PO DAILY bp, heart #30 tabs 11/17/22 06/20/23 Rx tablet,extended release 24 hr losartan 25 mg tablet 25 mg PO QHS Check with primary 11/17/22 01/02/24 History doctor metoprolol succinate 25 mg 25 mg PO DAILY Check with primary 11/17/22 01/02/24 History tablet,extended release 24 hr doctor calcium carbonate 600 mg-vitamin 1 tab PO BID supplement 06/09/23 01/02/24 History D3 5 mcg (200 unit) tablet (Calcium 600 + D(3)) pantoprazole 40 mg tablet,delayed 40 mg PO DAILY GERD 06/09/23 01/02/24 History release metformin 1,000 mg tablet 1,000 mg PO BID blood glucose 06/20/23 01/02/24 History acetaminophen 325 mg tablet 650 mg (2 x 325 mg) PO Q6H PRN PRN 06/25/23 Unknown Rx Pain 1-10 Or Fever>100.7 #0 tabs spironolactone 50 mg tablet 50 mg PO DAILY directic #0 tabs 06/25/23 01/02/24 Rx plecanatide 3 mg tablet (Trulance) 3 mg PO DAILY chronic constipation 06/28/23 01/02/24 Rx 30 days #30 tabs buspirone 15 mg tablet 15 mg PO TID mood 10/25/23 01/02/24 History mirabegron 50 mg tablet,extended 50 mg PO DAILY . 12/07/23 01/02/24 History release 24 hr (Myrbetriq) tramadol 50 mg tablet 50 mg PO Q6H PRN PRN pain 12/30/23 Unknown History sucralfate 1 gram tablet 1 g PO BID #60 tabs 01/07/24 Unknown Rx ammonium lactate 12 % topical cream 1 applic topical BID 01/08/24 Unknown History psyllium husk (aspartame) 3 gram 1 packet PO DAILY PRN PRN 01/08/24 Unknown Rx oral powder packet (Daily Fiber Constipation #0 ea (psyllium-aspartame)) torsemide 40 mg tablet 40 mg PO BID 1 month #60 tabs 01/08/24 Unknown Rx Allergy/AdvReac Type Severity Reaction Status Date / Time lisinopril Allergy Unknown Verified 01/08/24 15:47 paroxetine (From Paxil) Allergy NEEDS Verified 01/08/24 15:47 FOLLOW-UP sertraline Allergy Unknown Verified 01/08/24 15:47 enoxaparin (From Lovenox) AdvReac PT UNSURE Verified 01/08/24 15:47 OF REACTION Family History Mother Lung cancer Father CAD (coronary artery disease) Hypertension Heart disease Myocardial infarction Brother Myocardial infarction Hypertension Heart disease CAD (coronary artery disease) Surgical History History of cardiac catheterization History of appendectomy History of coronary artery stent placement S/P CABG x 2 Coronary angioplasty status History of bilateral hip arthroplasty History of cholecystectomy Hx of CABG H/O coronary artery bypass surgery Presence of cardiac pacemaker Status post cholecystectomy Social History household members: none housing: assisted living facility number of children: 0 current occupational status: retired Smoking Status: Never smoker alcohol intake: never substance use type: does not use ROS <Harrison Aslanides, [employer] - Last Filed: 01/23/24 19:34> ROS ED ROS Narrative Constitutional: Negative for fever, chills, weight loss, weakness Eyes: Negative for vision loss, vision change, double vision ENT: Negative for any sore throat, ear pain, congestion Cardiovascular: Negative for any chest pain, tightness, palpitations Respiratory: Negative for any cough, sputum production, hemoptysis, dyspnea, dyspnea on exertion, orthopnea Gastrointestinal: Negative for any abdominal pain, nausea, vomiting, diarrhea, constipation, blood in stool, blood in vomit : Negative for any urinary frequency, dysuria, retention, blood in urine Muscle skeletal: Negative for any neck pain, back pain Neurological: Negative for any headache, syncope, dizziness Skin: Negative for any rashes, itching, abrasions, lacerations. Positive for skin tear of the right lower leg Psychiatric: Negative for any depression, anxiety, stress, suicidal ideation, homicidal ideation Hematologic: Negative for any excessive bruising, easy bleeding EXAM <SEYMOUR Perdue - Last Filed: 01/23/24 19:34> Physical Exam Narrative Exam Narrative: Vital signs reviewed. HEET: Head normocephalic atraumatic, TMs clear bilaterally. Posterior pharynx is clear, moist mucous membranes. Nares clear bilaterally. Neck: Supple with no lymphadenopathy or tenderness. No signs of meningismus. Cardiac: Regular rate and rhythm no murmurs gallops or rubs, equal peripheral pulses bilaterally. Respiratory: Lungs clear to auscultation bilaterally. No chest tenderness. Abdomen: Soft, nontender, nondistended. No abdominal bruit or pulsatile masses. No hepatosplenomegaly Extremities: No peripheral edema, no signs of gross trauma or deformity. Active full range of motion of all extremities. Patient has a 2.5 vertical skin tear flap-like laceration. On my evaluation breathing is controlled. Patient had no neurological focal deficit. He has evidence of chronic venous insufficiency Neuro: Cranial nerves II through XII intact, no focal neurological deficits. Skin: Clean dry and intact with no rash, purpura, petechiae, vesicles or pustules. Backs/flank: No CVA tenderness, no midline spinal tenderness, no deformity. Psych: Normal mood and affect. No SI, HI or acute psychosis. Const Vital Signs: 01/23/24 19:10 01/23/24 19:55 Temperature 98.2 F 97.8 F Temperature Source Oral Pulse Rate 64 62 Respiratory Rate 20 H 20 H Blood Pressure 127/60 H 119/56 L Blood Pressure Mean 82 77 Pulse Ox 94 95 Oxygen Delivery Method Room Air <Channing hCo MD - Last Filed: 01/23/24 20:40> Physical Exam Const Vital Signs: 01/23/24 19:10 01/23/24 19:55 Temperature 98.2 F 97.8 F Temperature Source Oral Pulse Rate 64 62 Respiratory Rate 20 H 20 H Blood Pressure 127/60 H 119/56 L Blood Pressure Mean 82 77 Pulse Ox 94 95 Oxygen Delivery Method Room Air MDM <SEYMOUR Perdue - Last Filed: 01/23/24 19:34> [facility] Treatment and Re-Evaluation :: Differential diagnosis includes however is not limited to: Simple laceration, skin tear, tendon laceration Patient appears to be in no obvious respiratory distress, patient's vital signs are stable. Patient presents to the emergency department with complaints of skin tear laceration of the right lower extremity. Patient skin tear was placed back, I do believe that it is thick enough to withstand some sutures. However patient does not want sutures, he wants Steri-Strips. The wound was cleansed. I was able to use tincture around the area, was able to place Steri-Strips to close the wound. Some skin glue around the area. I was able to dress the wound. The patient's tetanus vaccine is up-to-date. The patient is no longer bleeding, he will have this reevaluated in 2 days. Patient agreeable and will look out for any signs of infection. Patient stable for discharge <Channing Cho MD - Last Filed: 01/23/24 20:40> [facility] Narrative Medical decision making narrative: Dr. Cho: I have personally performed a face to face assessment of the patient and have reviewed the BAKARI Note. I performed a substantive portion of the visit including all aspects of the following. My kidd findings include: History is patient was holding a knife and dropped it, when the knife fell, he created a skin laceration on his right medial lower leg. Exam is afebrile. Vital signs noted. Chronic lymphedema skin changes bilateral lower extremities. Positive skin tear/flap laceration right lower extremity. Medical Decision Making: Cleanse wound. Closed with Steri-Strips. He was told of the risk of infection and scarring and acknowledges understanding. Wound to heal by secondary intent. Discharge. Other additions or changes: [None] Differential Diagnosis Differential Diagnosis: Not applicable Discharge Plan Triage Chief Complaint: Laceration ED Midlevel Provider: Harrison Lux ED Provider: Channing Cho Dx/Rx/DC Orders Clinical Impression: Skin tear Instructions: ED Laceration Minimize Scars, ED Laceration Chin Skin Glue Ch, ED Laceration Small Not Sutured Ch Prescriptions: No Action buspirone 15 mg tablet 15 mg PO TID nitroglycerin 0.4 MG tablet 0.4 mg sublingual Q5M PRN (Reason: Chest Pain) Patient Comments: CHEST aspirin 81 MG tablet,chewable 81 mg PO DAILY Patient Comments: HEART HEALTH magnesium oxide 400 MG tablet 400 mg PO DAILY Patient Comments: MAGNESIUM SUPPLEMENT atorvastatin 80 MG tablet 80 mg PO QHS montelukast 10 MG tablet 10 mg PO QHS fluticasone propionate 1 SPRAY spray,suspension 2 spray NASAL DAILY cholecalciferol (vitamin D3) 2,000 UNIT capsule 2,000 unit PO BID tamsulosin 0.4 mg Capsule 0.4 mg PO QHS mirtazapine 15 mg Tablet 15 mg PO QHS glimepiride 4 mg Tablet 4 mg PO BREAKFAST docusate sodium 100 MG capsule 100 mg PO DAILY clopidogrel 75 mg Tablet 75 mg PO DAILY Qty: 30 0RF isosorbide mononitrate 30 mg Tablet Extended Release 24 Hr 30 mg PO DAILY Qty: 30 0RF fluticasone furoate-vilanterol [Breo Ellipta] 200-25 mcg/dose blister with device 1 inh INHALATION DAILY losartan 25 mg tablet 25 mg PO QHS Rx Instructions: HOLD IF SYSTOLIC <100 metoprolol succinate 25 mg tablet extended release 24 hr 25 mg PO DAILY Rx Instructions: HOLD hr <55 HOLD SYSTOLIC <95 metformin 1,000 mg tablet 1,000 mg PO BID calcium carbonate-vitamin D3 [Calcium 600 + D(3)] 600 mg-5 mcg (200 unit) tablet 1 tab PO BID pantoprazole 40 mg tablet,delayed release (DR/EC) 40 mg PO DAILY acetaminophen 325 mg Tablet 650 mg PO Q6H PRN PRN (Reason: Pain 1-10 Or Fever>100.7) Qty: 0 0RF spironolactone 50 mg Tablet 50 mg PO DAILY Qty: 0 0RF mirabegron [Myrbetriq] 50 mg tablet extended release 24 hr 50 mg PO DAILY tramadol 50 mg tablet 50 mg PO Q6H PRN PRN (Reason: pain) Daily Fiber (psyllium-aspart) 3 gram Powder In Packet 1 packet PO DAILY PRN PRN (Reason: Constipation) Qty: 0 0RF torsemide 40 mg tablet 40 mg PO BID 30 Days Qty: 60 1RF Rx Instructions: Hold for MARLA ammonium lactate 12 % cream 1 applic topical BID Trulance 3 mg tablet 3 mg PO DAILY 30 Days Qty: 30 6RF sucralfate 1 gram tablet 1 g PO BID Qty: 60 0RF Primary Care Provider: Bertrand Warner Referrals: Bertrand Warner MD [Primary Care Provider] - Activity Restrictions/Additional Instructions: Please keep the Steri-Strips until they fall off. You may change the dressing every 24 hours. Print Language: Emirati Disposition Disposition: Home, Self Care
[2024-01-23] MEDS: Lidocaine 1% /Epi 1:100 (20ml) 20 ML Vial 3 ML INFILT (19:54)
[2024-01-23 19:55] VITALS: BP 119/56; PULSE 62; RESP 20; TEMP 36.6; O2SAT 95
== END 2024-01-23 23:10 | disposition home or self-care (01) ==
PROVIDERS: Emergency Provider Emergency Medicine; PCP Family Medicine; Visit Provider Emergency Medicine
DX: S81.811A Laceration without foreign body, right lower leg, initial encounter (principal); I13.0 Hypertensive heart and chronic kidney disease with heart failure and stage 1 through stage 4 chronic kidney disease, or unspecified chronic kidney disease; I50.9 Heart failure, unspecified; I48.0 Paroxysmal atrial fibrillation; E11.40 Type 2 diabetes mellitus with diabetic neuropathy, unspecified; Z79.02 Long term (current) use of antithrombotics/antiplatelets; W26.0XXA Contact with knife, initial encounter; Y93.G3 Activity, cooking and baking; Y92.099 Unspecified place in other non-institutional residence as the place of occurrence of the external cause; Z99.81 Dependence on supplemental oxygen; K21.9 Gastro-esophageal reflux disease without esophagitis; Z95.1 Presence of aortocoronary bypass graft; N18.2 Chronic kidney disease, stage 2 (mild); J45.909 Unspecified asthma, uncomplicated; Z95.0 Presence of cardiac pacemaker; Z79.899 Other long term (current) drug therapy; Z79.82 Long term (current) use of aspirin; Z79.51 Long term (current) use of inhaled steroids; Z79.84 Long term (current) use of oral hypoglycemic drugs; I89.0 Lymphedema, not elsewhere classified
CPT/HCPCS: 12001; 99282

== ENCOUNTER 2024-02-10 09:46 | Outpatient (RCR) | payer MEDICARE, MEDICAID, SELFPAY ==
[2024-02-10 09:57] VITALS: BP 108/49; PULSE 62; RESP 20; TEMP 35.9; BMI 47.5
--- NOTE | 2024-02-10 12:21 | PCM.WC.HP ---
History of Present Illness Date of Service: 02/10/24 Chief Complaint: Nonhealing bilateral lower extremity ulcers. History of Wound: Mr. Dela Cruz is an 83-year-old well-known to the wound center but last seen here in 2020. Presents due to right lower extremity wound. Started after he was injured by a knife while eating chicken. Was seen by his adult protective caseworker and the emergency room following the incident and has had some dressings to it daily. He believes that there has been some improvement. Chronic history of venous insufficiency and venous ulcers. He states that he utilizes his compression consistently. Also history of CHF, he is currently on Lasix which he reports compliance with. He feels well otherwise. History of diabetes mellitus, he is not sure of his last A1c but believes it was borderline . He states that his appetite is good. [facility] Medical History (Updated 02/10/24 @ 12:[address] Ran Molina MD) DM2 (diabetes mellitus, type 2) Wound of right lower extremity History of echocardiogram Lives in assisted living facility [facility] as ambulation aid Arthritis Dietary restriction On home oxygen therapy Anxiety Depression CKD (chronic kidney disease), stage II Constipation Esophageal stricture Wears glasses Cancer Pancreatic abnormality Thyroid disease Shortness of breath on exertion Cardiology follow-up encounter Dysphagia GERD (gastroesophageal reflux disease) Atrial fibrillation Congestive heart failure (CHF) Diabetes Non-smoker BiPAP (biphasic positive airway pressure) dependence Asthma COPD (chronic obstructive pulmonary disease) Hyperlipemia Pacemaker Hypertension Ulcer of right lower extremity with fat layer exposed Ulcer of left lower extremity with fat layer exposed Chest pain Fall Paroxysmal atrial fibrillation Complete heart block 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 Atherosclerosis of coronary artery of [place] heart without angina pectoris Junctional escape rhythm Chronic venous insufficiency Swelling of lower extremity Edema of both legs Morbid obesity Prostate cancer Venous stasis dermatitis of both lower extremities Cholecystitis CHF (congestive heart failure) Ileus following gastrointestinal surgery Obstructive sleep apnea HLD (hyperlipidemia) Benign essential HTN Home Medications ?Medication ?Instructions ?Recorded ?Last Taken ?Type aspirin 81 mg chewable tablet 81 mg PO DAILY HEALTH MAINTENANCE 06/09/13 12/31/23 History nitroglycerin 0.4 mg sublingual 0.4 mg sublingual Q5M PRN Chest 06/09/13 10/17/16 09:00 History tablet Pain magnesium oxide 400 mg (241.3 mg 400 mg PO DAILY MAGNESIUM 10/07/15 01/02/24 History magnesium) tablet atorvastatin 80 mg tablet 80 mg PO QHS HLD 08/05/18 01/02/24 History cholecalciferol (vitamin D3) 50 2,000 unit PO BID SUPPLEMENT 11/24/19 01/02/24 History mcg (2,000 unit) capsule fluticasone propionate 50 2 spray NASAL DAILY ALLERGIES 11/24/19 01/02/24 History mcg/actuation nasal spray,suspension montelukast 10 mg tablet 10 mg PO QHS ALLERGIES 11/24/19 01/02/24 History glimepiride 4 mg tablet 4 mg PO BREAKFAST DM 01/09/21 01/02/24 History mirtazapine 15 mg tablet 15 mg PO QHS mental health 01/09/21 01/02/24 History tamsulosin 0.4 mg capsule 0.4 mg PO QHS prostate 01/09/21 01/02/24 History docusate sodium 100 mg capsule 100 mg PO DAILY stool softner 07/15/21 01/02/24 History clopidogrel 75 mg tablet 75 mg PO DAILY prevent clots #30 11/17/22 01/01/24 Rx tabs fluticasone furoate 200 1 inh inhalation DAILY Check with 11/17/22 01/02/24 History mcg-vilanterol 25 mcg/dose primary doctor inhalation powder (Breo Ellipta) isosorbide mononitrate 30 mg 30 mg PO DAILY bp, heart #30 tabs 11/17/22 06/20/23 Rx tablet,extended release 24 hr losartan 25 mg tablet 25 mg PO QHS Check with primary 11/17/22 01/02/24 History doctor metoprolol succinate 25 mg 25 mg PO DAILY Check with primary 11/17/22 01/02/24 History tablet,extended release 24 hr doctor calcium carbonate 600 mg-vitamin 1 tab PO BID supplement 06/09/23 01/02/24 History D3 5 mcg (200 unit) tablet (Calcium 600 + D(3)) pantoprazole 40 mg tablet,delayed 40 mg PO DAILY GERD 06/09/23 01/02/24 History release metformin 1,000 mg tablet 1,000 mg PO BID blood glucose 06/20/23 01/02/24 History acetaminophen 325 mg tablet 650 mg (2 x 325 mg) PO Q6H PRN PRN 06/25/23 Unknown Rx Pain 1-10 Or Fever>100.7 #0 tabs spironolactone 50 mg tablet 50 mg PO DAILY directic #0 tabs 06/25/23 01/02/24 Rx plecanatide 3 mg tablet (Trulance) 3 mg PO DAILY chronic constipation 06/28/23 01/02/24 Rx 30 days #30 tabs buspirone 15 mg tablet 15 mg PO TID mood 10/25/23 01/02/24 History mirabegron 50 mg tablet,extended 50 mg PO DAILY . 12/07/23 01/02/24 History release 24 hr (Myrbetriq) tramadol 50 mg tablet 50 mg PO Q6H PRN PRN pain 12/30/23 Unknown History sucralfate 1 gram tablet 1 g PO BID #60 tabs 01/07/24 Unknown Rx ammonium lactate 12 % topical cream 1 applic topical BID 01/08/24 Unknown History psyllium husk (aspartame) 3 gram 1 packet PO DAILY PRN PRN 01/08/24 Unknown Rx oral powder packet (Daily Fiber Constipation #0 ea (psyllium-aspartame)) torsemide 40 mg tablet 40 mg PO BID 1 month #60 tabs 01/08/24 Unknown Rx Allergy/AdvReac Type Severity Reaction Status Date / Time lisinopril Allergy Unknown Verified 01/08/24 15:47 paroxetine (From Paxil) Allergy NEEDS Verified 01/08/24 15:47 FOLLOW-UP sertraline Allergy Unknown Verified 01/08/24 15:47 enoxaparin (From Lovenox) AdvReac PT UNSURE Verified 01/08/24 15:47 OF REACTION Family History Mother Lung cancer Father CAD (coronary artery disease) Hypertension Heart disease Myocardial infarction Brother Myocardial infarction Hypertension Heart disease CAD (coronary artery disease) Surgical History (Updated 01/11/24 @ 00:02 by Keith Peterson) History of cardiac catheterization History of appendectomy History of coronary artery stent placement S/P CABG x 2 Coronary angioplasty status History of bilateral hip arthroplasty History of cholecystectomy Hx of CABG H/O coronary artery bypass surgery Presence of cardiac pacemaker Status post cholecystectomy Social History household members: none housing: assisted living facility number of children: 0 current occupational status: retired Smoking Status: Never smoker alcohol intake: never substance use type: does not use ROS Constitutional Constitutional: Denies anorexia, change in weight, fatigue or fever(s) Eyes Eyes: Denies acute decrease in peripheral vision, blind spots, bloody eye, blurry vision or change in vision ENT HEENT: Denies abnormal hearing, dysphagia, ear discharge, epistaxis or facial pain Cardiovascular Cardiovascular: Denies abdominal edema, chest pain with activity, claudication, cold extremities or cyanosis Respiratory/Chest Respiratory/Chest: Denies excessive phlegm production, inability to speak, pain on inspiration, pain with cough or pale skin Gastrointestinal Gastrointestinal: Denies bloating, change in bowel habits, dyspepsia, dysphagia or early satiety Genitourinary Genitourinary: Denies burning urination, difficulty urinating, dribbling, dysuria or genital lesions Musculoskeletal Musculoskeletal: Denies muscle spasms, muscle weakness, myalgias, neck pain or numbness Integumentary Integumentary: Denies bleeding lesions, change in pigmentation, changing lesions, nail changes or new lesions Neurologic Neurologic: Denies abnormal hearing, abnormal speech, behavior changes, focal weakness or frequent falls Psychiatric Psychiatric: Denies anxiety, auditory hallucinations, behavioral changes or cognitive impairment Endocrine Endocrinology: Denies cold intolerance, deepening of the voice, increase in ring/shoe/hat size, palpitations, polydipsia or polyphagia Hematologic/Lymphatic Hematologic/Lymphatic: Denies easy bleeding, easy bruising or lymphadenopathy Allergic/Immunologic Allergic/Immunologic: Denies itchy eyes, lip swelling, rhinitis or throat swelling Vital Signs Vital Signs Vital Signs: 02/10/24 09:57 Temperature 96.7 F L Temperature Source Temporal Pulse Rate 62 Respiratory Rate 20 H Blood Pressure 108/49 L Blood Pressure Mean 68 Blood Pressure Source Monitor Blood Pressure Position Semi-Fowlers Blood Pressure Location Right Forearm Oxygen Delivery Method Room Air Weight Weight: 350 lb Body Mass Index (BMI) 47.5 Physical Exam Const alert, oriented x3 and no apparent distress General Appearance: cooperative, comfortable and well developed HEENT normocephalic and hearing grossly normal bilaterally Head and Scalp: normal to inspection, normocephalic and atraumatic Eyes EOMs intact bilaterally General Eye: normal appearance of both eyes Neck full ROM and supple General: normal visual inspection Resp normal respiratory effort and normal air movement Effort and Inspection: able to speak in complete sentences Auscultation: clear to auscultation bilaterally Cardio regular rate, S1 normal heart sound and S2 normal heart sound GI soft to palpation and non-tender Extremity General Extremity: edema Skin Rashes: rashes noted Stasis dermatitis bilateral Wounds: wounds noted bed with slough and pink, drainage serosanguineous and other, no odor and open Neuro oriented x3, CN's II-XII intact bilaterally and moves all extremities Psych mental status grossly normal, thought process normal, cooperative and affect normal Debridement Note Debridement Note Wound debrided: Right lower extremity Type of Debridement: Excisional debridement Anesthesia Used: 4% Lidocaine Solution Depth: Down to and including healthy tissue and in the subcutaneous layer Percentage of wound debrided: 100 Instrument Used: 5mm curette Tissue Removed: Slough and devitalized tissue Severity: Fat Layer Exposed Amount of bleeding with debridement: Mild Bleeding Controlled with: Pressure Patient tolerated procedure: Patient tolerated procedure well Post-Debridement Measurements and Additional Note: Post-Debridement Measurements/Treatment WC - Nurse 1 - General Ulcer Assessment Start: 02/10/24 09:57 Freq: Status: Active Protocol: JOBY Activity Type Activity Date Activity User E-sign Co-sign Detail Recorded Client Recorded Date Recorded By Document 02/10/24 09:57 KW ; 02/10/24 10:23 KW 02/10/24 09:57 WC - Today's Visit Information Type of service Initial Visit Arrival Mode Wheelchair Patient Identification Verified (Name & Yes ) Height and Weight Height 6 ft Weight 350 lb Weight in Pounds 350.0 lbs Weight Measurement Method Estimated by Patient Body Mass Index (BMI) 47.5 BMI Classification Obese BSA - Yue 2.70 Vital Signs Temperature (97.8 F-99.1 F) 96.7 F L Temperature Source Temporal Pulse Rate (60-100) 62 Pulse Location Monitor Respiratory Rate (12-18) 20 H Respiratory rate source Observation Oxygen Delivery Method Room Air Blood Pressure (90/60-120/80) 108/49 L Blood Pressure Mean 68 Source Monitor Position Semi-Fowlers Blood Pressure Location Right Forearm History Since Last Visit- (Skip if this is Patient's initial visit) Left Footwear Regular Shoe Right Footwear Regular Shoe Pain Scale: 0-10 Numeric Is Patient Pain Free? Yes - Nurse 1 - General Ulcer Measurement Start: 02/10/24 09:57 Freq: Status: Active Protocol: Activity Type Activity Date Activity User E-sign Co-sign Detail Recorded Client Recorded Date Recorded By Document 02/10/24 09:57 KW ; 02/10/24 10:23 KW 02/10/24 09:57 Wound Center Nurse 1 #7 RT MED LE -Current Size (cm) - Length 4 -Current Size (cm) - Width 2 -Current Size (cm) - Depth 0.1 -Total Square Cm 8 -Date of Last Picture (Recall this 02/10/24 field) -Exudate Amt Small -Exudate Type Serosanguineous -Wound Margin Distinct, Outline Attached -Granulation Amt Medium (34-66%) -Granulation Quality Red -Necrosis Amt Medium (34-66%) -Necrotic Tissue Type Adherent Slough -Texture (Alexandra-wound Skin Appearance) Assessed -Moisture (Alexandra-wound Skin Appearance) Assessed -Color (Alexandra-wound Skin Appearance) Assessed, Hemosiderin Staining -Temperature (Alexandra-wound Skin No Abnormality Appearance) (Pt Warm) -Tenderness on Palpation (Alexandra-wound No Skin Appearance) -Ulcer Cleansing Soap and Water -Foul Odor after Cleansing No -Anesthetic Used 5% Lidocaine Gel Right Calf (cm) 44.5 Right Ankle (cm) 26 Left Calf (cm) 45 Left Ankle (cm) 26.5 WC - Nurse 2 - General Ulcer CM Notes Start: 02/10/24 09:57 Freq: Status: Active Protocol: Activity Type Activity Date Activity User E-sign Co-sign Detail Recorded Client Recorded Date Recorded By Document 02/10/24 10:46 GM 02/10/24 10:51 02/10/24 10:46 Wound Center Nurse 2 #7 RT MED LE -Time 10:47 -Correct Patient Yes -Correct Side, Site, Position Yes -Correct Procedure Yes -Procedure Performed Yes -Type of Procedure Debridement -Clinical Debridement Subcutaneous -Tissue Removed Subcutaneous -Post Debridement (cm) - Length 3.5 -Post Debridement (cm) - Width 1.8 -Post Debridement (cm) - Depth 0.1 -Total Square (Post) (cm) 6.30 -Area of Debridement (cm) - Length 3.5 -Area of Debridement (cm) - Width 1.8 -Total Square (Area) (cm) 6.30 -Tunneling No -Undermining/Tunneling No -Circular Undermining No -Wound/Ulcer Outcome Not Healed -Ulcer Cleansing Rinsed/ Irrigated with Saline -Foul Odor after Cleansing No -Bioengineered Tissue No -Bleeding Controlled with Pressure -Treatment Response Procedure Tolerated Well -Debridement - Subq, 1st 20sq cm Yes Pain Scale: 0-10 Numeric Is Patient Pain Free? Yes - Nurse 3 - General Ulcer D/C NN Start: 02/10/24 09:57 Freq: Status: Active Protocol: Activity Type Activity Date Activity User E-sign Co-sign Detail Recorded Client Recorded Date Recorded By Document 02/10/24 11:06 KW ; 02/10/24 11:22 KW 02/10/24 11:06 Wound Care Center Nurse 3 #7 RT MED LE -Primary Dressing Applied Promogran -Primary Dressing Covered/Secured with Dry Gauze & Roll Gauze, Secured with Tape -Promogran 1 Right -Tubular Bandage Double Layer -Size of Tubigrip Used Size F -Size F ($) 2 Left -Tubular Bandage Double Layer -Size of Tubigrip Used Size F -Size F ($) 2 Pain Scale: 0-10 Numeric Is Patient Pain Free? Yes WC - Visit Discharge Discharge Condition Stable Ambulatory Status Wheelchair Medication Reconcilliation completed & No provided to patient/care provider Clinical Summary of Care Provided Yes Charges/Coding Visit Charges Office Visits / Consults: [id number] OV L4 Est 30min Procedures Integumentary [id number]: [id number] Deja subq tissue 20 sq cm/< Assessment/Plan Assessment/Plan (1) Wound of right lower extremity: CODE(S): S81.801A - Unspecified open wound, right lower leg, initial encounter QUALIFIERS: Encounter type: initial encounter Qualified Code(s): S81.801A - Unspecified open wound, right lower leg, initial encounter PLAN: Acute, penetrating with fat layer exposed. (2) Venous stasis dermatitis of both lower extremities: CODE(S): I87.2 - Venous insufficiency (chronic) (peripheral) (3) Lymphedema: CODE(S): I89.0 - Lymphedema, not elsewhere classified (4) DM2 (diabetes mellitus, type 2): CODE(S): E11.9 - Type 2 diabetes mellitus without complications QUALIFIERS: Qualified Code(s): Z79.4 - senior living (current) use of insulin PLAN: Plan Debridement done as documented above, procedure was well-tolerated. As above, he presents following an acute right lower extremity wound by a knife while eating chicken. Has been seen by his adult protective caseworker and following injury, was seen at the emergency room. He believes that there has been some improvement. Currently utilizing Tubigrip for compression. Cultures taken. Prealbumin and A1c also ordered, will review. Promogran daily, cover with Adaptic and gauze. Change daily to twice daily depending on drainage/soilage. Patient not open to other forms of compression at this time, continue double layer Tubigrip. Encourage exercise and leg elevation as well when seated and in bed. He states that his appetite is good, he was encouraged to increase his protein intake. Optimal diabetes control. His questions were answered and he was advised to call with any further questions or concerns. Due to transportation issues and upcoming holiday, follow-up in 3 weeks. This note was generated with [employer] dictation software. It may contain incorrect words, spelling, and punctuation that were not noted in checking the note before signing.
[2024-02-10 13:24] LABS: Hemoglobin A1c 9.1 % (3.8-5.6)
[2024-02-10 13:38] LABS: Prealbumin 26.7 mg/dL (20.0-40.0)
== END 2024-02-20 23:59 | disposition home or self-care (01) ==
LOC: WC 09:46
PROVIDERS: PCP Family Medicine; Referring Provider Family Medicine; Visit Provider Internal Medicine
DX: S81.801A Unspecified open wound, right lower leg, initial encounter (principal); I13.0 Hypertensive heart and chronic kidney disease with heart failure and stage 1 through stage 4 chronic kidney disease, or unspecified chronic kidney disease; I50.9 Heart failure, unspecified; J44.9 Chronic obstructive pulmonary disease, unspecified; I48.0 Paroxysmal atrial fibrillation; E11.22 Type 2 diabetes mellitus with diabetic chronic kidney disease; Z79.4 Long term (current) use of insulin; N18.2 Chronic kidney disease, stage 2 (mild); E78.5 Hyperlipidemia, unspecified; I25.10 Atherosclerotic heart disease of native coronary artery without angina pectoris; Z79.82 Long term (current) use of aspirin; Z79.84 Long term (current) use of oral hypoglycemic drugs; Z79.02 Long term (current) use of antithrombotics/antiplatelets; Z95.0 Presence of cardiac pacemaker; I87.2 Venous insufficiency (chronic) (peripheral); I89.0 Lymphedema, not elsewhere classified; Z95.1 Presence of aortocoronary bypass graft; Z95.5 Presence of coronary angioplasty implant and graft; Z90.49 Acquired absence of other specified parts of digestive tract
CPT/HCPCS: 11042; 36415; 83036; 84134; 87070; 87075; 87077; 87186; 87205; 99213; G0463

== ENCOUNTER 2024-03-16 14:15 | Outpatient (RCR) | payer MEDICARE, MEDICAID, SELFPAY ==
[2024-02-21 00:24] VITALS: BP 108/49; PULSE 62; RESP 20; TEMP 35.9; BMI 47.5
[2024-02-23 10:10] VITALS: BP 121/64; PULSE 62; RESP 18; TEMP 35.9; BMI 47.5
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
[2024-03-02 11:32] VITALS: BP 105/43; PULSE 61; RESP 18; TEMP 35.6; BMI 47.5
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
--- NOTE | 2024-03-09 08:29 | ART_ITS ---
Reason For Study: Edema Procedure A bilateral lower extremity continuous wave Doppler with analog waveform analysis,segmental pressures,and ankle brachial indexes without exercise. Left Segmental Pressures Left brachial= 132mmHg. Left posterior tibial artery = >254mmHg. Left dorsalis pedis artery = >254mmHg. Left digit = 111 mmHg. The left dorsalis pedis waveforms are biphasic. The left posterior tibial artery waveforms are triphasic. Right Segmental Pressures Right brachial= 136mmHg. Right posterior tibial artery = >254mmHg. Right dorsalis pedis artery = >254mmHg. Right digit = 105 mmHg. The right dorsalis pedis waveforms are biphasic. The right posterior tibial artery waveforms are biphasic. Indices The right ankle brachial index by the dorsalis pedis is NC. The right ankle brachial index by the posterior tibial artery is NC. The right digital-brachial index is 0.77. The left ankle brachial index by the dorsalis pedis is NC. The left ankle brachial index by the posterior tibial artery is NC. The left digital-brachial index is 0.82. VL/Lower Ext Art Exam w/o Exercis Interpretation Summary Biphasic Doppler waveforms are noted at ankle level on the right. Triphasic and biphasic Doppler waveforms are noted at ankle level on the left. Pulse-volume recordings appear satisfactory at all levels bilaterally. Resting ankle-brachial indices could not be determined on e ither side due to the non-compressibility of the vasculature at ankle level bilaterally. Digital-brac hial indices are normal bilaterally. There is evidence of arterial calcification at ankle level bilaterally. There i s no evidence of significant arterial occlusive disease in the lower extremities bilaterally. Ordering Physician: Ajit Hunter Referring Physician: AJIT HUNTER DPM Performed By: Jie Mistry RVT and Student
--- NOTE | 2024-03-09 08:29 | VDLE_ITS ---
Reason For Study: Edema RIGHT LEFT CFV is compressible, spontaneous, phasic, CFV is compressible, spontaneous, phasic, competent and demonstrates normal competent, and demonstrates normal augmentation. augmentation. FV is compressible, spontaneous, phasic, FV is compressible, spontaneous, phasic, competent and demonstrates normal competent and demonstrates normal augmentation. augmentation. POP V is compressible, spontaneous, phasic, POP V is compressible, spontaneous, phasic, competent and demonstrates normal competent and demonstrates normal augmentation. augmentation. T/P Trunk is compressible. T/P Trunk is compressible. PTV is compressible. PTV is compressible. RT PerV is compressible. LT PerV is compressible. SFJ is INCOMPETENT and measures 0.55 cm. SFJ is INCOMPETENT and measures 0.63 cm. GSV proximal thigh measures 0.53 x 0.70 cm. Lt GSV above knee previously harvested GSV at knee measures 0.27 x 0.38 cm. INCOMPETENT Projection Camera Operator noted 23 cm above GSV INCOMPETENT throughout for greater than Medial Malleolus. 0.5 seconds. GSV at knee measures 0.39 x 0.38 cm. ASV mid thigh is INCOMPETENT for greater than GSV below knee is INCOMPETENT for greater 0.5 seconds and measures 0.49 x 0.51 cm. than 0.5 seconds. SSV proximal calf is competent and measures ASV proximal calf is INCOMPETENT for greater 0.40 x 0.56 cm. than 0.5 seconds and measures 0.51 x 0.48 cm. Procedure ASV mid calf is INCOMPETENT for greater than This is a venous duplex using B-mode, color 0.5 seconds and measures 0.31 x 0.36 cm. flow and spectral Doppler. SSV proximal calf is competent and measures Exam performed in department. 0.59 x 0.63 cm. Patient was scanned in reverse Trendelenburg position during reflux assessment. A preliminary report was called and/or faxed to [facility]. VL/Venous Duplex US - Jon Extrem Interpretation Summary Deep veins of the lower extremities are bilaterally patent and compressible seg mentally. There is no evidence of deep vein thrombosis on either side. Valvular competence appears in tact within the proximal deep venous systems bilaterally. Sapheno-femoral junctions are bilater ally incompetent . The right great saphenous vein appears patent and compressible segmentally. The right great saphenous vein appears segmentally incompetent. The left great saphenous vein i s absent above the knee. The left great saphenous vein appears incompetent below the knee. Small s aphenous veins are patent and competent bilaterally. The accessory saphenous vein in the right mid -thigh is incompetent. The accessory saphenous vein in the left proximal calf is incompet ent. The accessory saphenous vein in the left mid-calf is incompetent. An incompetent interior decorator paperhanging v ein is noted in the left calf, located 23 centimeters proximal to the left medial malleolus. Ordering Physician: Moy Hunter Referring Physician: Bertrand Warner Performed By: Jie Mistry RVT and Student
[2024-03-09 11:06] VITALS: BP 137/60; PULSE 69; RESP 20; TEMP 36; BMI 47.5
--- NOTE | 2024-03-09 12:57 | PCM.WC.PN ---
History of Present Illness Date of Service: 03/09/24 Chief Complaint: Nonhealing bilateral lower extremity ulcers. History of Wound: Mr. Dela Cruz is an 83-year-old well-known to the wound center but last seen here in 2020. Presents due to right lower extremity wound. Started after he was injured by a knife while eating chicken. Was seen by his telephone order clerk room service and the emergency room following the incident and has had some dressings to it daily. He believes that there has been some improvement. Chronic history of venous insufficiency and venous ulcers. He states that he utilizes his compression consistently. Also history of CHF, he is currently on Lasix which he reports compliance with. He feels well otherwise. History of diabetes mellitus, he is not sure of his last A1c but believes it was borderline. He states that his appetite is good. Progress of Wound: No new concerns reported at this time. He was advised to come in with his CircAid's at his last visit however, he is now states that he cannot find them. He still not open to 3M wraps. Objective Data Objective Data Vital Signs: Vital Signs Temp Pulse Resp BP O2 Del Method 96.8 F L 69 20 H 137/60 H Room Air 03/09/24 11:06 03/09/24 11:06 03/09/24 11:06 03/09/24 11:06 03/02/24 11:32 Oxygen Delivery Method Room Air Weight: 350 lb Body Mass Index (BMI) 47.5 Charges/Coding Procedures Integumentary [id number]: [id number] Deja subq tissue 20 sq cm/< Physical Exam Const alert, oriented x3 and no apparent distress General Appearance: cooperative, comfortable and well developed HEENT normocephalic and hearing grossly normal bilaterally Head and Scalp: normal to inspection, normocephalic and atraumatic Eyes EOMs intact bilaterally General Eye: normal appearance of both eyes Neck full ROM and supple General: normal visual inspection Resp normal respiratory effort and normal air movement Effort and Inspection: able to speak in complete sentences Extremity General Extremity: edema Skin Wounds: wounds noted bed granulating well, drainage serosanguineous, no odor and open Neuro oriented x3, CN's II-XII intact bilaterally and moves all extremities Psych mental status grossly normal, thought process normal, cooperative and affect normal Debridement Note Debridement Note Wound debrided: Right lower extremity Type of Debridement: Excisional debridement Anesthesia Used: 4% Lidocaine Solution Depth: Down to and including healthy tissue and in the subcutaneous layer Percentage of wound debrided: 100 Instrument Used: 5mm curette Tissue Removed: Slough and devitalized tissue Severity: Fat Layer Exposed Amount of bleeding with debridement: Mild Bleeding Controlled with: Pressure Patient tolerated procedure: Patient tolerated procedure well Post-Debridement Measurements and Additional Note: Post-Debridement Measurements/Treatment - Nurse 1 - General Ulcer Assessment Start: 02/23/24 10:02 Freq: Status: Active Protocol: JOBY Activity Type Activity Date Activity User E-sign Co-sign Detail Recorded Client Recorded Date Recorded By Document 02/23/24 10:10 GM wc 02/23/24 10:13 GM Document 03/02/24 11:32 KW [id number] 03/02/24 11:38 KW Document 03/09/24 11:06 KW f 03/09/24 11:15 KW 02/23/24 03/02/24 03/09/24 10:10 11:32 11:06 - Today's Visit Information Type of service Follow-up Visit Follow-up Visit Follow-up Visit (Physician/QUALITY ASSURANCE NURSE (Physician/QUALITY ASSURANCE NURSE (Physician/QUALITY ASSURANCE NURSE ) ) ) Arrival Mode Wheelchair Wheelchair Wheelchair Patient Identification Verified (Name & Yes Yes Yes ) Patient Requires Transmission-Based No Precautions Finger Stick Blood Sugar(mg/dl) (if NOT CHECKED indicated): Blood Sugar Stated by Patient Height and Weight Body Mass Index (BMI) 47.5 47.5 47.5 BMI Classification Obese Obese Obese Vital Signs Temperature (97.8 F-99.1 F) 96.7 F L 96.1 F L 96.8 F L Temperature Source Temporal Temporal Temporal Pulse Rate (60-100) 62 61 69 Pulse Location Monitor Monitor Monitor Respiratory Rate (12-18) 18 18 20 H Respiratory rate source Observation Observation Observation Oxygen Delivery Method Room Air Room Air Blood Pressure (90/60-120/80) 121/64 H 105/43 L 137/60 H Blood Pressure Mean (mm Hg) 83 63 85 Source Monitor Monitor Monitor Position Sitting Sitting Blood Pressure Location Right Forearm Left Arm History Since Last Visit- (Skip if this is Patient's initial visit) Have you changed medications since your No No No last visit? Any new allergies or adverse reactions No No No Had a fall/change in ADL's that may No No No increase risk of falls Signs or symptoms of abuse and/or No No No neglect since last visit Have you been in the hospital since your No No No last visit? Has dressing in place as prescribed Yes Yes Yes Has compression in place as prescribed No Yes Yes Has offloadiing in place as prescribed N/A N/A N/A Experienced any changes in pain level or No No No management Left Footwear Regular Shoe Regular Shoe Regular Shoe Right Footwear Regular Shoe Regular Shoe Regular Shoe Pain Scale: 0-10 Numeric Is Patient Pain Free? Yes Yes Yes Teaching: Wound Center Compression Wraps & Stockings -Person Taught Patient -Teaching Method Discussion, Demonstration -Response to teaching Verbalize understanding - Nurse 1 - General Ulcer Measurement Start: 02/23/24 10:02 Freq: Status: Active Protocol: Activity Type Activity Date Activity User E-sign Co-sign Detail Recorded Client Recorded Date Recorded By Document 02/23/24 10:10 [facility] 02/23/24 10:13 Document 03/02/24 11:32 KW [id number] 03/02/24 11:38 KW Document 03/09/24 11:06 KW f 03/09/24 11:15 KW 02/23/24 03/02/24 03/09/24 10:10 11:32 11:06 Wound Center Nurse 1 #9 Left posterior leg -Current Size (cm) - Length 3.2 -Current Size (cm) - Width 2.4 -Current Size (cm) - Depth 0.1 -Total Square Cm 7.68 -Wound Margin Distinct, Outline Attached -Texture (Alexandra-wound Skin Appearance) Assessed -Moisture (Alexandra-wound Skin Appearance) Assessed -Color (Alexandra-wound Skin Appearance) Assessed -Tenderness on Palpation (Alexandra-wound No Skin Appearance) -Ulcer Cleansing Rinsed/ Irrigated with Saline -Anesthetic Used 5% Lidocaine Gel #8 Left anterior leg -Current Size (cm) - Length 0.1 -Current Size (cm) - Width 0.1 -Current Size (cm) - Depth 0.1 -Total Square Cm 0.01 #7 RT MED LE -Combined with other wound No -Current Size (cm) - Length 3 2.7 -Current Size (cm) - Width 1.5 1.2 -Current Size (cm) - Depth 0.2 0.2 -Total Square Cm 4.5 3.24 -Date of Last Picture (Recall this 02/23/24 field) -Photo Taken Yes -Epithelialization Small 1-33% -Tunneling No -Undermining/Tunneling No -Circular Undermining No -Exudate Amt Small Small Small -Exudate Type Yellow/Green Serosanguineous Serosanguineous -Wound Margin Distinct, Distinct, Distinct, Outline Outline Outline Attached Attached Attached -Granulation Amt Small (1-33%) Large (67-100%) Small (1-33%) -Granulation Quality Duryea Red Duryea -Necrosis Amt Medium (34-66%) Large (67-100%) -Necrotic Tissue Type Adherent Slough Adherent Slough -Texture (Alexandra-wound Skin Appearance) Assessed Assessed Assessed -Moisture (Alexandra-wound Skin Appearance) Assessed Assessed Assessed -Color (Alexandra-wound Skin Appearance) Assessed Assessed Assessed -Temperature (Alexandra-wound Skin No Abnormality No Abnormality No Abnormality Appearance) (Pt Warm) (Pt Warm) (Pt Warm) -Tenderness on Palpation (Alexandra-wound No No Skin Appearance) -Ulcer Cleansing Rinsed/ Soap and Water Rinsed/ Irrigated with Irrigated with Saline Saline -Foul Odor after Cleansing No No No -Anesthetic Used 5% Lidocaine 5% Lidocaine 5% Lidocaine Gel Gel Gel Lower Limb Edema Present Yes Right Calf (cm) 46 43.8 Right Ankle (cm) 27 26 Left Calf (cm) 46.5 44.5 Left Ankle (cm) 27.5 27.3 WC - Nurse 2 - General Ulcer CM Notes Start: 02/23/24 10:02 Freq: Status: Active Protocol: Activity Type Activity Date Activity User E-sign Co-sign Detail Recorded Client Recorded Date Recorded By Document 02/23/24 10:39 0000 02/23/24 10:40 Document 03/02/24 11:42 [facility] 03/02/24 11:52 Document 03/09/24 12:03 GM 03/09/24 12:08 GM Edit Result 03/09/24 12:03 GM (1) 03/09/24 12:10 GM (1) #9 Left posterior leg - Post Debridement (cm) - Length => 3.1 - Post Debridement (cm) - Width => 3.0 - Post Debridement (cm) - Depth => 0.1 - Total Square (Post) (cm) => 9.30 - Area of Debridement (cm) - Length => 3.1 - Area of Debridement (cm) - Width => 3.0 - Total Square (Area) (cm) => 9.30 02/23/24 03/02/24 03/09/24 10:39 11:42 12:03 Wound Center Nurse 2 #9 Left posterior leg -Time 11:51 12:04 -Correct Patient Yes Yes -Correct Side, Site, Position Yes Yes -Correct Procedure Yes Yes -Procedure Performed Yes Yes -Type of Procedure Debridement Debridement -Clinical Debridement Subcutaneous Subcutaneous -Tissue Removed Subcutaneous Subcutaneous -Post Debridement (cm) - Length 3.0 3.1 -Post Debridement (cm) - Width 3.0 3.0 -Post Debridement (cm) - Depth 0.1 0.1 -Total Square (Post) (cm) 9.00 9.30 -Area of Debridement (cm) - Length 3.1 -Area of Debridement (cm) - Width 3.0 -Total Square (Area) (cm) 9.30 -Tunneling No No -Undermining/Tunneling No No -Circular Undermining No No -Wound/Ulcer Outcome Not Healed Not Healed -Ulcer Cleansing Rinsed/ Rinsed/ Irrigated with Irrigated with Saline Saline -Foul Odor after Cleansing No No -Bioengineered Tissue No No -Bleeding Controlled with Pressure Pressure -Treatment Response Procedure Procedure Tolerated Well Tolerated Well -Debridement - Subq, 1st 20sq cm Yes Yes #8 Left anterior leg -Time 11:49 12:04 -Correct Patient Yes Yes -Correct Side, Site, Position Yes Yes -Correct Procedure Yes Yes -Procedure Performed Yes Yes -Type of Procedure Debridement Debridement -Clinical Debridement Subcutaneous Subcutaneous -Tissue Removed Subcutaneous Subcutaneous -Post Debridement (cm) - Length 0.8 3.3 -Post Debridement (cm) - Width 0.7 0.6 -Post Debridement (cm) - Depth 0.1 0.1 -Total Square (Post) (cm) 0.56 1.98 -Area of Debridement (cm) - Length 0.8 3.3 -Area of Debridement (cm) - Width 0.7 0.6 -Total Square (Area) (cm) 0.56 1.98 -Tunneling No No -Undermining/Tunneling No No -Circular Undermining No No -Wound/Ulcer Outcome Not Healed Not Healed -Ulcer Cleansing Rinsed/ Irrigated with Saline -Foul Odor after Cleansing No -Bioengineered Tissue No -Bleeding Controlled with Pressure Pressure -Treatment Response Procedure Procedure Tolerated Well Tolerated Well -Debridement - Subq, 1st 20sq cm No No #7 RT MED LE -Time 11:43 12:04 -Correct Patient Yes Yes Yes -Correct Side, Site, Position Yes Yes Yes -Correct Procedure Yes Yes Yes -Procedure Performed Yes Yes Yes -Type of Procedure Debridement Debridement Debridement -Clinical Debridement Subcutaneous Subcutaneous Subcutaneous -Tissue Removed Subcutaneous Subcutaneous Subcutaneous -Post Debridement (cm) - Length 2.7 3.0 2.6 -Post Debridement (cm) - Width 1.8 1.4 1.1 -Post Debridement (cm) - Depth 0.1 0.1 0.1 -Total Square (Post) (cm) 4.86 4.20 2.86 -Area of Debridement (cm) - Length 2.7 3.0 2.6 -Area of Debridement (cm) - Width 1.8 1.4 1.1 -Total Square (Area) (cm) 4.86 4.20 2.86 -Tunneling No No No -Undermining/Tunneling No No No -Circular Undermining No No No -Wound/Ulcer Outcome Not Healed Not Healed Not Healed -Ulcer Cleansing Rinsed/ Rinsed/ Irrigated with Irrigated with Saline Saline -Foul Odor after Cleansing No No -Bioengineered Tissue No No -Bleeding Controlled with Pressure Pressure Pressure -Treatment Response Procedure Procedure Procedure Tolerated Well Tolerated Well Tolerated Well -Offloading No -Debridement - Subq, 1st 20sq cm Yes No No Pain Scale: 0-10 Numeric Is Patient Pain Free? Yes Yes Yes - Nurse 3 - General Ulcer D/C NN Start: 02/23/24 10:02 Freq: Status: Active Protocol: Activity Type Activity Date Activity User E-sign Co-sign Detail Recorded Client Recorded Date Recorded By Document 02/23/24 10:50 KW ; 02/23/24 10:51 KW Document 03/09/24 12:18 KW f 03/09/24 12:20 KW 02/23/24 03/09/24 10:50 12:18 Wound Care Center Nurse 3 #9 Left posterior leg -Primary Dressing Applied Aquacel AG 4x4, NonAdherent Contact Layer -Primary Dressing Covered/Secured with Dry Gauze & Roll Gauze, Secured with Tape -Aquacel AG 4x4 1 #8 Left anterior leg -Primary Dressing Covered/Secured with Dry Gauze & Roll Gauze, Secured with Tape #7 RT MED LE -Primary Dressing Applied Promogran -Primary Dressing Covered/Secured with Dry Gauze & Dry Gauze & Roll Gauze, Roll Gauze, Secured with Secured with Tape Tape -Promogran 1 Right -Lotion applied to leg before Yes compression wrap -Tubular Bandage Single Layer Single Layer -Size of Tubigrip Used Size E Size E -Size E ($) 1 1 -Other new brand Left -Lotion applied to leg before Yes compression wrap -Tubular Bandage Single Layer Single Layer -Size of Tubigrip Used Size E Size E -Size E ($) 1 1 -Other new brand Pain Scale: 0-10 Numeric Is Patient Pain Free? Yes Yes WC - Visit Discharge Discharge Condition Stable Ambulatory Status Wheelchair Wheelchair Medication Reconcilliation completed & No No provided to patient/care provider Clinical Summary of Care Provided Yes Yes Additional Wound Wound debrided: Left lower extremity (superior leg) Type of Debridement: Excisional debridement Anesthesia Used: 4% Lidocaine Solution Depth: Down to and including healthy tissue and in the subcutaneous layer Percentage of wound debrided: 100 Instrument Used: 3mm curette Tissue Removed: Slough and devitalized tissue Severity: Fat Layer Exposed Amount of bleeding with debridement: Mild Bleeding Controlled with: Pressure Patient tolerated procedure: Patient tolerated procedure well Additional Wound Wound debrided: Right lower extremity (posterior leg) Type of Debridement: Excisional debridement Anesthesia Used: 4% Lidocaine Solution Depth: Down to and including healthy tissue and in the subcutaneous layer Percentage of wound debrided: 100 Instrument Used: 5mm curette Tissue Removed: Slough and devitalized tissue Severity: Fat Layer Exposed Amount of bleeding with debridement: Mild Bleeding Controlled with: Pressure Patient tolerated procedure: Patient tolerated procedure well Assessment/Plan Assessment/Plan (1) Wound of right lower extremity: CODE(S): S81.801A - Unspecified open wound, right lower leg, initial encounter QUALIFIERS: Encounter type: subsequent encounter Qualified Code(s): S81.801D - Unspecified open wound, right lower leg, subsequent encounter PLAN: Acute, penetrating with fat layer exposed. 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 New left lower extremity ulcers. Some improvement in ulcer/wound. Did not come with his CircAid's as above. Still not open to 3M wraps for compression. He states that he is taking his antibiotic as prescribed. Continue Aquacel extra to all ulcers, cover with foam dressing. Continue Tubigrip's for edema management. Optimal diabetes control very strongly recommended, follow-up with PCP for medication initiation. Elevate lower extremities when seated and in bed. Exercise as tolerated. Optimal diabetes control and adequate protein intake. He was advised to call with any questions or concerns. Follow-up in a week for a courtesy visit and in 2 weeks with me. This note was generated with [employer] dictation software. It may contain incorrect words, spelling, and punctuation that were not noted in checking the note before signing.
[2024-03-16 14:40] VITALS: BP 120/54; PULSE 60; RESP 18; TEMP 35.3; BMI 47.5
--- NOTE | 2024-03-16 16:26 | PCM.WC.PN ---
History of Present Illness Date of Service: 03/16/24 Chief Complaint: Nonhealing bilateral lower extremity ulcers. History of Wound: Mr. Dela Cruz is an 83-year-old well-known to the wound center but last seen here in 2020. Presents due to right lower extremity wound. Started after he was injured by a knife while eating chicken. Was seen by his spooler operator automatic and the emergency room following the incident and has had some dressings to it daily. He believes that there has been some improvement. Chronic history of venous insufficiency and venous ulcers. He states that he utilizes his compression consistently. Also history of CHF, he is currently on Lasix which he reports compliance with. He feels well otherwise. History of diabetes mellitus, he is not sure of his last A1c but believes it was borderline. He states that his appetite is good. Progress of Wound: I am seeing Mr. Dela Cruz this week as a courtesy visit. He states he has been doing okay over the last week. His dressings are changed by nursing staff at facility, he said there are no new concerns as far as he is aware. I asked if he brought Circaids as it seemed this was discussed last week. He stated that no one has ever discussed Circaids with him and he has no idea what those are. He has been wearing Tubigrips for compression. Objective Data Objective Data Vital Signs: Vital Signs Temp Pulse Resp BP O2 Del Method 95.6 F L 60 18 120/54 L Room Air 03/16/24 14:40 03/16/24 14:40 03/16/24 14:40 03/16/24 14:40 03/16/24 14:40 Oxygen Delivery Method Room Air Weight: 350 lb Body Mass Index (BMI) 47.5 Charges/Coding Procedures Integumentary [id number]: [id number] Deja subq tissue 20 sq cm/< Physical Exam Const alert, oriented x3 and no apparent distress General Appearance: cooperative, comfortable and well developed HEENT normocephalic and hearing grossly normal bilaterally Head and Scalp: normal to inspection, normocephalic and atraumatic Eyes EOMs intact bilaterally General Eye: normal appearance of both eyes Neck full ROM and supple General: normal visual inspection Resp normal respiratory effort and normal air movement Effort and Inspection: able to speak in complete sentences Extremity General Extremity: edema Skin Wounds: wounds noted bed granulating well, drainage serosanguineous, no odor and open Neuro oriented x3, CN's II-XII intact bilaterally and moves all extremities Psych mental status grossly normal, thought process normal, cooperative and affect normal Debridement Note Debridement Note Wound debrided: Right lower extremity Type of Debridement: Excisional debridement Anesthesia Used: 4% Lidocaine Solution Depth: Down to and including healthy tissue and in the subcutaneous layer Percentage of wound debrided: 100 Instrument Used: 5mm curette Tissue Removed: Slough and devitalized tissue Severity: Fat Layer Exposed Amount of bleeding with debridement: Mild Bleeding Controlled with: Pressure Patient tolerated procedure: Patient tolerated procedure well Post-Debridement Measurements and Additional Note: Post-Debridement Measurements/Treatment - Nurse 1 - General Ulcer Assessment Start: 02/23/24 10:02 Freq: Status: Active Protocol: JOBY Activity Type Activity Date Activity User E-sign Co-sign Detail Recorded Client Recorded Date Recorded By Document 02/23/24 10:10 GM 02/23/24 10:13 GM Document 03/02/24 11:32 KW [id number] 03/02/24 11:38 KW Document 03/09/24 11:06 KW f 03/09/24 11:15 KW Document 03/16/24 14:40 KW l 03/16/24 14:42 KW 02/23/24 03/02/24 03/09/24 10:10 11:32 11:06 - Today's Visit Information Type of service Follow-up Visit Follow-up Visit Follow-up Visit (Physician/PULVERIZER FEEDER (Physician/PULVERIZER FEEDER (Physician/PULVERIZER FEEDER ) ) ) Arrival Mode Wheelchair Wheelchair Wheelchair Patient Identification Verified (Name & Yes Yes Yes ) Patient Requires Transmission-Based No Precautions Finger Stick Blood Sugar(mg/dl) (if NOT CHECKED indicated): Blood Sugar Stated by Patient Height and Weight Body Mass Index (BMI) 47.5 47.5 47.5 BMI Classification Obese Obese Obese Vital Signs Temperature (97.8 F-99.1 F) 96.7 F L 96.1 F L 96.8 F L Temperature Source Temporal Temporal Temporal Pulse Rate (60-100) 62 61 69 Pulse Location Monitor Monitor Monitor Respiratory Rate (12-18) 18 18 20 H Respiratory rate source Observation Observation Observation Oxygen Delivery Method Room Air Room Air Blood Pressure (90/60-120/80) 121/64 H 105/43 L 137/60 H Blood Pressure Mean (mm Hg) 83 63 85 Source Monitor Monitor Monitor Position Sitting Sitting Blood Pressure Location Right Forearm Left Arm History Since Last Visit- (Skip if this is Patient's initial visit) Have you changed medications since your No No No last visit? Any new allergies or adverse reactions No No No Had a fall/change in ADL's that may No No No increase risk of falls Signs or symptoms of abuse and/or No No No neglect since last visit Have you been in the hospital since your No No No last visit? Has dressing in place as prescribed Yes Yes Yes Has compression in place as prescribed No Yes Yes Has offloadiing in place as prescribed N/A N/A N/A Experienced any changes in pain level or No No No management Left Footwear Regular Shoe Regular Shoe Regular Shoe Right Footwear Regular Shoe Regular Shoe Regular Shoe Pain Scale: 0-10 Numeric Is Patient Pain Free? Yes Yes Yes Teaching: Wound Center Compression Wraps & Stockings -Person Taught Patient -Teaching Method Discussion, Demonstration -Response to teaching Verbalize understanding 03/16/24 14:40 WC - Today's Visit Information Type of service Follow-up Visit (Physician/PULVERIZER FEEDER ) Arrival Mode Wheelchair Patient Identification Verified (Name & Yes ) Patient Requires Transmission-Based Precautions Finger Stick Blood Sugar(mg/dl) (if indicated): Blood Sugar Height and Weight Body Mass Index (BMI) 47.5 BMI Classification Obese Vital Signs Temperature (97.8 F-99.1 F) 95.6 F L Temperature Source Temporal Pulse Rate (60-100) 60 Pulse Location Monitor Respiratory Rate (12-18) 18 Respiratory rate source Observation Oxygen Delivery Method Room Air Blood Pressure (90/60-120/80) 120/54 L Blood Pressure Mean (mm Hg) 76 Source Monitor Position Semi-Fowlers Blood Pressure Location Left Arm History Since Last Visit- (Skip if this is Patient's initial visit) Have you changed medications since your No last visit? Any new allergies or adverse reactions No Had a fall/change in ADL's that may No increase risk of falls Signs or symptoms of abuse and/or No neglect since last visit Have you been in the hospital since your No last visit? Has dressing in place as prescribed Yes Has compression in place as prescribed Yes Has offloadiing in place as prescribed N/A Experienced any changes in pain level or No management Left Footwear Regular Shoe Right Footwear Regular Shoe Pain Scale: 0-10 Numeric Is Patient Pain Free? Yes Teaching: Wound Center Compression Wraps & Stockings -Person Taught -Teaching Method -Response to teaching WC - Nurse 1 - General Ulcer Measurement Start: 02/23/24 10:02 Freq: Status: Active Protocol: Activity Type Activity Date Activity User E-sign Co-sign Detail Recorded Client Recorded Date Recorded By Document 02/23/24 10:10 GM 02/23/24 10:13 GM Document 03/02/24 11:32 KW [id number] 03/02/24 11:38 KW Document 03/09/24 11:06 KW f 03/09/24 11:15 KW Document 03/16/24 14:40 KW l 03/16/24 14:42 KW 02/23/24 03/02/24 03/09/24 10:10 11:32 11:06 Wound Center Nurse 1 #8 Left anterior leg -Current Size (cm) - Length 0.1 -Current Size (cm) - Width 0.1 -Current Size (cm) - Depth 0.1 -Total Square Cm 0.01 -Date of Last Picture (Recall this field) -Exudate Amt -Exudate Type -Wound Margin -Granulation Amt -Granulation Quality -Necrosis Amt -Necrotic Tissue Type -Texture (Alexandra-wound Skin Appearance) -Moisture (Alexandra-wound Skin Appearance) -Color (Alexandra-wound Skin Appearance) -Temperature (Alexandra-wound Skin Appearance) -Tenderness on Palpation (Alexandra-wound Skin Appearance) -Ulcer Cleansing -Foul Odor after Cleansing -Anesthetic Used #9 Left posterior leg -Current Size (cm) - Length 3.2 -Current Size (cm) - Width 2.4 -Current Size (cm) - Depth 0.1 -Total Square Cm 7.68 -Date of Last Picture (Recall this field) -Exudate Amt -Exudate Type -Wound Margin Distinct, Outline Attached -Granulation Amt -Granulation Quality -Necrosis Amt -Necrotic Tissue Type -Texture (Alexandra-wound Skin Appearance) Assessed -Moisture (Alexandra-wound Skin Appearance) Assessed -Color (Alexandra-wound Skin Appearance) Assessed -Temperature (Alexandra-wound Skin Appearance) -Tenderness on Palpation (Alexandra-wound No Skin Appearance) -Ulcer Cleansing Rinsed/ Irrigated with Saline -Foul Odor after Cleansing -Anesthetic Used 5% Lidocaine Gel #7 RT MED LE -Combined with other wound No -Current Size (cm) - Length 3 2.7 -Current Size (cm) - Width 1.5 1.2 -Current Size (cm) - Depth 0.2 0.2 -Total Square Cm 4.5 3.24 -Date of Last Picture (Recall this 02/23/24 field) -Photo Taken Yes -Epithelialization Small 1-33% -Tunneling No -Undermining/Tunneling No -Circular Undermining No -Exudate Amt Small Small Small -Exudate Type Yellow/Green Serosanguineous Serosanguineous -Wound Margin Distinct, Distinct, Distinct, Outline Outline Outline Attached Attached Attached -Granulation Amt Small (1-33%) Large (67-100%) Small (1-33%) -Granulation Quality [place] Red Je[place]rette -Necrosis Amt Medium (34-66%) Large (67-100%) -Necrotic Tissue Type Adherent Slough Adherent Slough -Texture (Alexandra-wound Skin Appearance) Assessed Assessed Assessed -Moisture (Alexandra-wound Skin Appearance) Assessed Assessed Assessed -Color (Alexandra-wound Skin Appearance) Assessed Assessed Assessed -Temperature (Alexandra-wound Skin No Abnormality No Abnormality No Abnormality Appearance) (Pt Warm) (Pt Warm) (Pt Warm) -Tenderness on Palpation (Alexandra-wound No No Skin Appearance) -Ulcer Cleansing Rinsed/ Soap and Water Rinsed/ Irrigated with Irrigated with Saline Saline -Foul Odor after Cleansing No No No -Anesthetic Used 5% Lidocaine 5% Lidocaine 5% Lidocaine Gel Gel Gel Lower Limb Edema Present Yes Right Calf (cm) 46 43.8 Right Ankle (cm) 27 26 Left Calf (cm) 46.5 44.5 Left Ankle (cm) 27.5 27.3 03/16/24 14:40 Wound Center Nurse 1 #8 Left anterior leg -Current Size (cm) - Length 2.6 -Current Size (cm) - Width 1.1 -Current Size (cm) - Depth 0.1 -Total Square Cm 2.86 -Date of Last Picture (Recall this 03/16/24 field) -Exudate Amt Small -Exudate Type Serosanguineous -Wound Margin Distinct, Outline Attached -Granulation Amt Medium (34-66%) -Granulation Quality Red -Necrosis Amt Medium (34-66%) -Necrotic Tissue Type Adherent Slough -Texture (Alexandra-wound Skin Appearance) Assessed -Moisture (Alexandra-wound Skin Appearance) Assessed -Color (Alexandra-wound Skin Appearance) Assessed, Hemosiderin Staining -Temperature (Alexandra-wound Skin No Abnormality Appearance) (Pt Warm) -Tenderness on Palpation (Alexandra-wound No Skin Appearance) -Ulcer Cleansing Rinsed/ Irrigated with Saline -Foul Odor after Cleansing No -Anesthetic Used 5% Lidocaine Gel #9 Left posterior leg -Current Size (cm) - Length 3 -Current Size (cm) - Width 2.5 -Current Size (cm) - Depth 0.1 -Total Square Cm 7.5 -Date of Last Picture (Recall this 03/16/24 field) -Exudate Amt Medium -Exudate Type Serosanguineous -Wound Margin Distinct, Outline Attached -Granulation Amt Medium (34-66%) -Granulation Quality Red -Necrosis Amt Small (1-33%) -Necrotic Tissue Type Adherent Slough -Texture (Alexandra-wound Skin Appearance) Assessed -Moisture (Alexandra-wound Skin Appearance) Assessed -Color (Alexandra-wound Skin Appearance) Assessed, Hemosiderin Staining -Temperature (Alexandra-wound Skin No Abnormality Appearance) (Pt Warm) -Tenderness on Palpation (Alexandra-wound No Skin Appearance) -Ulcer Cleansing Rinsed/ Irrigated with Saline -Foul Odor after Cleansing No -Anesthetic Used 5% Lidocaine Gel #7 RT MED LE -Combined with other wound -Current Size (cm) - Length 2.6 -Current Size (cm) - Width 1.1 -Current Size (cm) - Depth 0.1 -Total Square Cm 2.86 -Date of Last Picture (Recall this 03/16/24 field) -Photo Taken -Epithelialization -Tunneling -Undermining/Tunneling -Circular Undermining -Exudate Amt Medium -Exudate Type Serosanguineous -Wound Margin Distinct, Outline Attached -Granulation Amt Medium (34-66%) -Granulation Quality Red -Necrosis Amt Medium (34-66%) -Necrotic Tissue Type Adherent Slough -Texture (Alexandra-wound Skin Appearance) Assessed -Moisture (Alexandra-wound Skin Appearance) Assessed -Color (Alexandra-wound Skin Appearance) Assessed, Hemosiderin Staining -Temperature (Alexandra-wound Skin No Abnormality Appearance) (Pt Warm) -Tenderness on Palpation (Alexandra-wound No Skin Appearance) -Ulcer Cleansing Rinsed/ Irrigated with Saline -Foul Odor after Cleansing No -Anesthetic Used 5% Lidocaine Gel Lower Limb Edema Present Right Calf (cm) 43.2 Right Ankle (cm) 26.5 Left Calf (cm) 45 Left Ankle (cm) 27.5 WC - Nurse 2 - General Ulcer CM Notes Start: 02/23/24 10:02 Freq: Status: Active Protocol: Activity Type Activity Date Activity User E-sign Co-sign Detail Recorded Client Recorded Date Recorded By Document 02/23/24 10:39 0000 02/23/24 10:40 Document 03/02/24 11:42 GM 03/02/24 11:52 GM Document 03/09/24 12:03 GM 03/09/24 12:08 GM Edit Result 03/09/24 12:03 GM (1) 03/09/24 12:10 GM Document 03/16/24 14:52 BMF [id number] 03/16/24 14:57 BMF (1) #9 Left posterior leg - Post Debridement (cm) - Length => 3.1 - Post Debridement (cm) - Width => 3.0 - Post Debridement (cm) - Depth => 0.1 - Total Square (Post) (cm) => 9.30 - Area of Debridement (cm) - Length => 3.1 - Area of Debridement (cm) - Width => 3.0 - Total Square (Area) (cm) => 9.30 02/23/24 03/02/24 03/09/24 10:39 11:42 12:03 Wound Center Nurse 2 #8 Left anterior leg -Time 11:49 12:04 -Correct Patient Yes Yes -Correct Side, Site, Position Yes Yes -Correct Procedure Yes Yes -Procedure Performed Yes Yes -Type of Procedure Debridement Debridement -Clinical Debridement Subcutaneous Subcutaneous -Tissue Removed Subcutaneous Subcutaneous -Post Debridement (cm) - Length 0.8 3.3 -Post Debridement (cm) - Width 0.7 0.6 -Post Debridement (cm) - Depth 0.1 0.1 -Total Square (Post) (cm) 0.56 1.98 -Area of Debridement (cm) - Length 0.8 3.3 -Area of Debridement (cm) - Width 0.7 0.6 -Total Square (Area) (cm) 0.56 1.98 -Tunneling No No -Undermining/Tunneling No No -Circular Undermining No No -Wound/Ulcer Outcome Not Healed Not Healed -Ulcer Cleansing Rinsed/ Irrigated with Saline -Foul Odor after Cleansing No -Bioengineered Tissue No -Bleeding Controlled with Pressure Pressure -Treatment Response Procedure Procedure Tolerated Well Tolerated Well -Debridement - Subq, 1st 20sq cm No No #9 Left posterior leg -Time 11:51 12:04 -Correct Patient Yes Yes -Correct Side, Site, Position Yes Yes -Correct Procedure Yes Yes -Procedure Performed Yes Yes -Type of Procedure Debridement Debridement -Clinical Debridement Subcutaneous Subcutaneous -Tissue Removed Subcutaneous Subcutaneous -Post Debridement (cm) - Length 3.0 3.1 -Post Debridement (cm) - Width 3.0 3.0 -Post Debridement (cm) - Depth 0.1 0.1 -Total Square (Post) (cm) 9.00 9.30 -Area of Debridement (cm) - Length 3.1 -Area of Debridement (cm) - Width 3.0 -Total Square (Area) (cm) 9.30 -Tunneling No No -Undermining/Tunneling No No -Circular Undermining No No -Wound/Ulcer Outcome Not Healed Not Healed -Ulcer Cleansing Rinsed/ Rinsed/ Irrigated with Irrigated with Saline Saline -Foul Odor after Cleansing No No -Bioengineered Tissue No No -Bleeding Controlled with Pressure Pressure -Treatment Response Procedure Procedure Tolerated Well Tolerated Well -Debridement - Subq, 1st 20sq cm Yes Yes #7 RT MED LE -Time 11:43 12:04 -Correct Patient Yes Yes Yes -Correct Side, Site, Position Yes Yes Yes -Correct Procedure Yes Yes Yes -Procedure Performed Yes Yes Yes -Type of Procedure Debridement Debridement Debridement -Clinical Debridement Subcutaneous Subcutaneous Subcutaneous -Tissue Removed Subcutaneous Subcutaneous Subcutaneous -Post Debridement (cm) - Length 2.7 3.0 2.6 -Post Debridement (cm) - Width 1.8 1.4 1.1 -Post Debridement (cm) - Depth 0.1 0.1 0.1 -Total Square (Post) (cm) 4.86 4.20 2.86 -Area of Debridement (cm) - Length 2.7 3.0 2.6 -Area of Debridement (cm) - Width 1.8 1.4 1.1 -Total Square (Area) (cm) 4.86 4.20 2.86 -Tunneling No No No -Undermining/Tunneling No No No -Circular Undermining No No No -Wound/Ulcer Outcome Not Healed Not Healed Not Healed -Ulcer Cleansing Rinsed/ Rinsed/ Irrigated with Irrigated with Saline Saline -Foul Odor after Cleansing No No -Bioengineered Tissue No No -Bleeding Controlled with Pressure Pressure Pressure -Treatment Response Procedure Procedure Procedure Tolerated Well Tolerated Well Tolerated Well -Offloading No -Debridement - Subq, 1st 20sq cm Yes No No Pain Scale: 0-10 Numeric Is Patient Pain Free? Yes Yes Yes 03/16/24 14:52 Wound Center Nurse 2 #8 Left anterior leg -Time -Correct Patient -Correct Side, Site, Position -Correct Procedure -Procedure Performed -Type of Procedure -Clinical Debridement -Tissue Removed -Post Debridement (cm) - Length -Post Debridement (cm) - Width -Post Debridement (cm) - Depth -Total Square (Post) (cm) -Area of Debridement (cm) - Length -Area of Debridement (cm) - Width -Total Square (Area) (cm) -Tunneling -Undermining/Tunneling -Circular Undermining -Wound/Ulcer Outcome -Ulcer Cleansing -Foul Odor after Cleansing -Bioengineered Tissue -Bleeding Controlled with -Treatment Response -Debridement - Subq, 20sq cm #9 Left posterior leg -Time 14:53 -Correct Patient Yes -Correct Side, Site, Position Yes -Correct Procedure Yes -Procedure Performed Yes -Type of Procedure Debridement -Clinical Debridement Subcutaneous -Tissue Removed Subcutaneous -Post Debridement (cm) - Length 2.9 -Post Debridement (cm) - Width 2.7 -Post Debridement (cm) - Depth 0.1 -Total Square (Post) (cm) 7.83 -Area of Debridement (cm) - Length 2.9 -Area of Debridement (cm) - Width 2.7 -Total Square (Area) (cm) 7.83 -Tunneling No -Undermining/Tunneling No -Circular Undermining No -Wound/Ulcer Outcome Not Healed -Ulcer Cleansing Rinsed/ Irrigated with Saline -Foul Odor after Cleansing No -Bioengineered Tissue No -Bleeding Controlled with Pressure -Treatment Response Procedure Tolerated Well -Debridement - Subq, 1st 20sq cm No #7 RT MED LE -Time 14:52 -Correct Patient Yes -Correct Side, Site, Position Yes -Correct Procedure Yes -Procedure Performed Yes -Type of Procedure Debridement -Clinical Debridement Subcutaneous -Tissue Removed Subcutaneous -Post Debridement (cm) - Length 2.4 -Post Debridement (cm) - Width 1.1 -Post Debridement (cm) - Depth 0.2 -Total Square (Post) (cm) 2.64 -Area of Debridement (cm) - Length 2.4 -Area of Debridement (cm) - Width 1.1 -Total Square (Area) (cm) 2.64 -Tunneling No -Undermining/Tunneling No -Circular Undermining No -Wound/Ulcer Outcome Not Healed -Ulcer Cleansing Rinsed/ Irrigated with Saline -Foul Odor after Cleansing No -Bioengineered Tissue No -Bleeding Controlled with Pressure -Treatment Response Procedure Tolerated Well -Offloading -Debridement - Subq, 1st 20sq cm Yes Pain Scale: 0-10 Numeric Is Patient Pain Free? Yes WC - Nurse 3 - General Ulcer D/C NN Start: 02/23/24 10:02 Freq: Status: Active Protocol: Activity Type Activity Date Activity User E-sign Co-sign Detail Recorded Client Recorded Date Recorded By Document 02/23/24 10:50 KW ; 02/23/24 10:51 KW Document 03/09/24 12:18 KW f 03/09/24 12:20 KW Document 03/16/24 15:16 KW l 03/16/24 15:17 KW 02/23/24 03/09/24 03/16/24 10:50 12:18 15:16 Wound Care Center Nurse 3 #8 Left anterior leg -Primary Dressing Covered/Secured with Dry Gauze & Roll Gauze, Secured with Tape #9 Left posterior leg -Primary Dressing Applied Aquacel AG 4x4, Aquacel AG 4x4, NonAdherent NonAdherent Contact Layer Contact Layer -Primary Dressing Covered/Secured with Dry Gauze & Dry Gauze & Roll Gauze, Roll Gauze, Secured with Secured with Tape Tape -Aquacel AG 4x4 1 1 #7 RT MED LE -Primary Dressing Applied Promogran -Other Dressing SAME OTHER LEG -Primary Dressing Covered/Secured with Dry Gauze & Dry Gauze & Dry Gauze & Roll Gauze, Roll Gauze, Roll Gauze, Secured with Secured with Secured with Tape Tape Tape -Promogran 1 Right -Lotion applied to leg before Yes compression wrap -Tubular Bandage Single Layer Single Layer Single Layer -Size of Tubigrip Used Size E Size E Size F -Size E ($) 1 1 -Size F ($) 1 -Other new brand Left -Lotion applied to leg before Yes compression wrap -Tubular Bandage Single Layer Single Layer Single Layer -Size of Tubigrip Used Size E Size E Size F -Size E ($) 1 1 -Size F ($) 1 -Other new brand Pain Scale: 0-10 Numeric Is Patient Pain Free? Yes Yes Yes WC - Visit Discharge Discharge Condition Stable Ambulatory Status Wheelchair Wheelchair Medication Reconcilliation completed & No No provided to patient/care provider Clinical Summary of Care Provided Yes Yes Additional Wound Wound debrided: Left lower extremity (superior leg) Type of Debridement: Excisional debridement Anesthesia Used: 4% Lidocaine Solution Depth: Down to and including healthy tissue and in the subcutaneous layer Percentage of wound debrided: 100 Instrument Used: 3mm curette Tissue Removed: Slough and devitalized tissue Severity: Fat Layer Exposed Amount of bleeding with debridement: Mild Bleeding Controlled with: Pressure Patient tolerated procedure: Patient tolerated procedure well Assessment/Plan Assessment/Plan (1) Wound of right lower extremity: CODE(S): S81.801A - Unspecified open wound, right lower leg, initial encounter QUALIFIERS: Encounter type: subsequent encounter Qualified Code(s): S81.801D - Unspecified open wound, right lower leg, subsequent encounter PLAN: Acute, penetrating with fat layer exposed. (2) Ulcer of left lower extremity with fat layer exposed: CODE(S): L97.922 - Non-pressure chronic ulcer of unspecified part of left lower leg with fat layer exposed (3) Venous stasis dermatitis of both lower extremities: CODE(S): I87.2 - Venous insufficiency (chronic) (peripheral) (4) Lymphedema: CODE(S): I89.0 - Lymphedema, not elsewhere classified (5) DM2 (diabetes mellitus, type 2): CODE(S): E11.9 - Type 2 diabetes mellitus without complications QUALIFIERS: Qualified Code(s): Z79.4 - senior care (current) use of insulin PLAN: Plan Debridement done as documented above, procedure was well-tolerated. Appears he has completed antibiotic regimen. He did not have any signs or symptoms on infection on exam today. Will continue with curren wound care: Aquacel extra to all ulcers followed by foam border dressing. Change dressings daily or more often as needed to keep clean and dry. For compression, continue with Tubigrips for now. We discussed Circaids, he will consider and discuss further with Dr. Molina next week. He will return to see Dr. Molina in 1 week.
--- NOTE | 2024-03-22 12:17 | WC ---
PHOTO 03/16/24 RIGHT MEDIAL LE
--- NOTE | 2024-03-22 12:17 | WC ---
PHOTO 03/16/2024 LEFT POST LE
== END 2024-03-22 23:59 | disposition home or self-care (01) ==
LOC: WC 14:15
PROVIDERS: PCP Family Medicine; Referring Provider Family Medicine; Visit Provider Internal Medicine
DX: L97.922 Non-pressure chronic ulcer of unspecified part of left lower leg with fat layer exposed (principal); I50.9 Heart failure, unspecified; E11.9 Type 2 diabetes mellitus without complications; Z79.4 Long term (current) use of insulin; S81.801D Unspecified open wound, right lower leg, subsequent encounter; I87.2 Venous insufficiency (chronic) (peripheral); I89.0 Lymphedema, not elsewhere classified
CPT/HCPCS: 11042; 93923; 93970

== ENCOUNTER 2024-05-13 08:13 | Inpatient (IN) | payer MEDICARE, MEDICAID, SELFPAY ==
[2024-05-13] VITALS (10 sets, daily range): BP systolic 96–136; BP diastolic 41–125; PULSE 60–79; RESP 16–20; TEMP 36.3–36.7; O2SAT 92–99; BMI 46.5; BMI 46.3
--- NOTE | 2024-05-13 08:26 | EKG12_ITS ---
Test Reason : CP Blood Pressure : / mmHG Vent. Rate : 060 BPM Atrial Rate : 059 BPM P-R Int : 000 ms QRS Dur : 186 ms QT Int : 544 ms P-R-T Axes : 000 -77 106 degrees QTc Int : 544 ms Ventricular-paced rhythm Abnormal ECG Confirmed by Armaan Moura ([id number]), visual effects editor MAGGIE LONG ([id number]) on 05/15/2024 11:03:06 AM Referred By: Confirmed By:Armaan Moura
--- NOTE | 2024-05-13 08:27 | EX.ED.UPPERE ---
HPI History of Present Illness Chief Complaint: Upper Extremity Injury Detail of Chief Complaint: Left shoulder and chest pain Informant: patient Narrative Narrative: Patient presents to the emergency department via EMS from assisted living facility. Complains mainly of left shoulder pain that he has had off-and-on for several weeks. Pain can last up to a half an hour at a time. Its sharp and worse with movement. He denies any injury to his shoulder. At times the pain radiates to the left anterior chest. He denies recent travel or surgery. He denies fever or recent illness. Patient states that this morning he could not walk more than 10 feet without having to sit down feeling very weak. She denies urinary symptoms. No history of PE. Does have history of coronary artery disease. Patient currently on aspirin and Plavix. [facility] Medical History (Updated 05/13/24 @ 10:[address] Virginia Beasley, ) Constipation Ulcer of left lower extremity with fat layer exposed DM2 (diabetes mellitus, type 2) Wound of right lower extremity History of echocardiogram Lives in assisted living facility Walker as ambulation aid Arthritis Dietary restriction On home oxygen therapy Anxiety Depression CKD (chronic kidney disease), stage II Esophageal stricture Wears glasses Cancer Pancreatic abnormality Thyroid disease Shortness of breath on exertion Cardiology follow-up encounter Dysphagia GERD (gastroesophageal reflux disease) Atrial fibrillation Congestive heart failure (CHF) Diabetes Non-smoker BiPAP (biphasic positive airway pressure) dependence Asthma COPD (chronic obstructive pulmonary disease) Hyperlipemia Pacemaker Hypertension Ulcer of right lower extremity with fat layer exposed Chest pain Fall Paroxysmal atrial fibrillation Complete heart block 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3 mg 400 mg PO DAILY MAGNESIUM 10/07/15 01/02/24 History magnesium) tablet atorvastatin 80 mg tablet 80 mg PO QHS HLD 08/05/18 01/02/24 History cholecalciferol (vitamin D3) 50 2,000 unit PO BID SUPPLEMENT 11/24/19 01/02/24 History mcg (2,000 unit) capsule fluticasone propionate 50 2 spray NASAL DAILY ALLERGIES 11/24/19 01/02/24 History mcg/actuation nasal spray,suspension montelukast 10 mg tablet 10 mg PO QHS ALLERGIES 11/24/19 01/02/24 History glimepiride 4 mg tablet 4 mg PO BREAKFAST DM 01/09/21 01/02/24 History mirtazapine 15 mg tablet 15 mg PO QHS mental health 01/09/21 01/02/24 History tamsulosin 0.4 mg capsule 0.4 mg PO QHS prostate 01/09/21 01/02/24 History docusate sodium 100 mg capsule 100 mg PO DAILY stool softner 07/15/21 01/02/24 History clopidogrel 75 mg tablet 75 mg PO DAILY prevent clots #30 11/17/22 01/01/24 Rx tabs fluticasone furoate 200 1 inh inhalation DAILY Check with 11/17/22 01/02/24 History mcg-vilanterol 25 mcg/dose primary doctor inhalation powder (Breo Ellipta) isosorbide mononitrate 30 mg 30 mg PO DAILY bp, heart #30 tabs 11/17/22 06/20/23 Rx tablet,extended release 24 hr losartan 25 mg tablet 25 mg PO QHS Check with primary 11/17/22 01/02/24 History doctor metoprolol succinate 25 mg 25 mg PO DAILY Check with primary 11/17/22 01/02/24 History tablet,extended release 24 hr doctor calcium carbonate 600 mg-vitamin 1 tab PO BID supplement 06/09/23 01/02/24 History D3 5 mcg (200 unit) tablet (Calcium 600 + D(3)) pantoprazole 40 mg tablet,delayed 40 mg PO DAILY GERD 06/09/23 01/02/24 History release metformin 1,000 mg tablet 1,000 mg PO BID blood glucose 06/20/23 01/02/24 History acetaminophen 325 mg tablet 650 mg (2 x 325 mg) PO Q6H PRN PRN 06/25/23 Unknown Rx Pain 1-10 Or Fever>100.7 #0 tabs spironolactone 50 mg tablet 50 mg PO DAILY directic #0 tabs 06/25/23 01/02/24 Rx plecanatide 3 mg tablet (Trulance) 3 mg PO DAILY chronic constipation 06/28/23 01/02/24 Rx 30 days #30 tabs buspirone 15 mg tablet 15 mg PO TID mood 10/25/23 01/02/24 History mirabegron 50 mg tablet,extended 50 mg PO DAILY . 12/07/23 01/02/24 History release 24 hr (Myrbetriq) sucralfate 1 gram tablet 1 g PO BID #60 tabs 01/07/24 Unknown Rx psyllium husk (aspartame) 3 gram 1 packet PO DAILY PRN PRN 01/08/24 Unknown Rx oral powder packet (Daily Fiber Constipation #0 ea (psyllium-aspartame)) torsemide 40 mg tablet 40 mg PO BID 1 month #60 tabs 01/08/24 Unknown Rx calcium polycarbophil 625 mg PO 03/02/24 Unknown History tablet (Fiber-Lax) empagliflozin 10 mg tablet 10 mg PO DAILY 03/02/24 Unknown History (Jardiance) sitagliptin phosphate 100 mg 100 mg PO DAILY 03/02/24 Unknown History tablet (Januvia) ferrous fumarate 325 mg (106 mg 325 mg PO BID 04/18/24 Unknown History iron) tablet loperamide 2 mg tablet (Imodium 2 mg PO Q4H PRN 04/18/24 Unknown History A-D) Allergy/AdvReac Type Severity Reaction Status Date / Time lisinopril Allergy Unknown Verified 05/13/24 08:15 paroxetine (From Paxil) Allergy NEEDS Verified 05/13/24 08:15 FOLLOW-UP sertraline Allergy Unknown Verified 05/13/24 08:15 enoxaparin (From Lovenox) AdvReac PT UNSURE Verified 05/13/24 08:15 OF REACTION Family History Mother Lung cancer Father CAD (coronary artery disease) Hypertension Heart disease Myocardial infarction Brother Myocardial infarction Hypertension Heart disease CAD (coronary artery disease) Surgical History History of cardiac catheterization History of appendectomy History of coronary artery stent placement S/P CABG x 2 Coronary angioplasty status History of bilateral hip arthroplasty History of cholecystectomy Hx of CABG H/O coronary artery bypass surgery Presence of cardiac pacemaker Status post cholecystectomy Social History household members: none housing: assisted living facility number of children: 0 current occupational status: retired Smoking Status: Never smoker alcohol intake: never substance use type: does not use ROS ROS ED Review of Systems ROS Unobtainable: other Constitutional Constitutional ED: Reports lethargy; Denies chills, fever(s), sweats or weight loss Eyes Eyes: Denies blurry vision, change in vision or diplopia ENT ENT ED: Denies rhinorrhea or sore throat Cardiovascular Cardiovascular: Reports chest pain; Denies orthopnea or racing heartbeat Respiratory/Chest Respiratory/Chest: Denies cough, dyspnea, dyspnea on exertion, orthopnea or sputum Gastrointestinal Gastrointestinal: Denies abdominal pain, diarrhea, nausea or vomiting Genitourinary Genitourinary ED: Denies dysuria, hematuria or urinary frequency Musculoskeletal Musculoskeletal: Denies arthralgias, back pain, myalgias or neck pain Integumentary Denies abscess, Abrasions or rash Neurologic Neurologic: Reports weakness; Denies headache(s) Psychiatric Psychiatric: Denies anxiety, depression or suicidal thoughts Endocrine Endocrinology: Denies polydipsia, polyphagia or polyuria Hematologic/Lymphatic Hematologic/Lymphatic: Denies easy bleeding, easy bruising or lymphadenopathy Allergic/Immunologic Allergic/Immunologic ED: Denies mouth swelling, tongue swelling or urticaria EXAM Physical Exam Const Vital Signs: 05/13/24 08:15 05/13/24 08:21 Temperature 98 F Temperature Source Oral Pulse Rate 73 Respiratory Rate 19 H Respiratory Effort Normal Respiratory Pattern Normal Blood Pressure 136/125 H Blood Pressure Mean 128 Pulse Ox 92 Oxygen Delivery Method Room Air Positive well nourished and well developed General Appearance ED: well developed and NAD HEENT Reports TM's clear and moist mucous membranes normocephalic and atraumatic; Negative for trauma or tenderness Tympanic Membrane ED: Yes TM's clear Eyes PERRL and EOMs intact bilaterally General Eye ED: Negative for pale conjunctiva or scleral icterus Neck no lymphadenopathy, supple and no JVD General: Negative for tenderness Chest Wall Chest Narrative: Tenderness to palpation over the left anterior chest wall into the mid axillary line that seems to reproduce his pain Chest: tenderness Resp normal respiratory effort and clear to auscultation bilaterally Effort and Inspection: Negative for respiratory distress or pain with movement Auscultation: Negative for rhonchi, wheezes or diminished lung sounds Cardio regular rate, regular rhythm, S1 normal heart sound, S2 normal heart sound and no murmurs Peripheral Pulses: pulses 2+ throughout GI normal to inspection, nondistended, normoactive bowel sounds, soft to palpation, non-distended and no masses GI Narrative: Morbidly obese. Patient has some mild diffuse tenderness palpation over the upper abdomen. There is no rebound, rigidity, or peritoneal signs. No mass palpated Back/Spine no CVA tenderness and no thoracic nor lumbar tenderness Extremity normal to inspection General Extremety ED: Negative for edema General Extremity: Negative for edema Neuro oriented x3, CN's II-XII intact bilaterally, no sensory deficits noted and gait normal Sensorium / Orientation: awake, alert, oriented to person, oriented to place and oriented to time Motor Exam: strength 5/5 throughout and strength abnormal Psych mental status grossly normal Skin no rashes or lesions noted and no wounds MDM MDM MDM Narrative Medical decision making narrative: Patient presents with generalized weakness and left-sided chest pain. He does complain of dyspnea. Clinically looks well. In the differential would be pneumonia versus CHF versus acute coronary syndrome or PE. Pneumothorax would be in the differential. IV line established. Blood cultures ordered. CBC with differential obtained showed a normal WBC count. Chemistry showed a low sodium of 127 and an elevated BUN and creatinine. Troponin normal. D-dimer was 0.67 and normal when corrected for age. Chest x-ray obtained showed a left-sided infiltrate. Patient started on Rocephin and Zithromax. He was initially ordered a 500 cc fluid bolus as he did have 1 transient low blood pressure reading. I did add a BNP to the workup and that results pending. Discussed case with hospitalist will evaluate patient for admission. Lab Data Attestation: I reviewed the patient's lab results. Radiography Diagnostic Testin view chest x-ray obtained interpreted by myself as left lower lobe infiltrate. Radiology in agreement. EKG Initial EKG: Attestation: I personally reviewed and interpreted this EKG as follows: Comments: Ventricularly paced rhythm with rate of 60 bpm with left bundle branch block morphology Discharge Plan Triage Chief Complaint: Upper Extremity Injury ED Provider: Virginia Beasley Dx/Rx/DC Orders Clinical Impression: Chest pain, Pneumonia, Weakness, MARLA (acute kidney injury) Prescriptions: No Action buspirone 15 mg tablet 15 mg PO TID loperamide [Imodium A-D] 2 mg tablet 2 mg PO Q4H PRN Rx Instructions: administer after each loose stool until symptoms controlled; do not exceed 16 mg per 24 hrs ferrous fumarate 325 mg (106 mg iron) tablet 325 mg PO BID aspirin 81 MG tablet,chewable 81 mg PO DAILY Patient Comments: HEART HEALTH magnesium oxide 400 MG tablet 400 mg PO DAILY Patient Comments: MAGNESIUM SUPPLEMENT atorvastatin 80 MG tablet 80 mg PO QHS montelukast 10 MG tablet 10 mg PO QHS fluticasone propionate 1 SPRAY spray,suspension 2 spray NASAL DAILY cholecalciferol (vitamin D3) 2,000 UNIT capsule 2,000 unit PO BID tamsulosin 0.4 mg Capsule 0.4 mg PO QHS mirtazapine 15 mg Tablet 15 mg PO QHS glimepiride 4 mg Tablet 4 mg PO BREAKFAST docusate sodium 100 MG capsule 100 mg PO DAILY clopidogrel 75 mg Tablet 75 mg PO DAILY Qty: 30 0RF isosorbide mononitrate 30 mg Tablet Extended Release 24 Hr 30 mg PO DAILY Qty: 30 0RF fluticasone furoate-vilanterol [Breo Ellipta] 200-25 mcg/dose blister with device 1 inh INHALATION DAILY losartan 25 mg tablet 25 mg PO QHS Rx Instructions: HOLD IF SYSTOLIC <100 metoprolol succinate 25 mg tablet extended release 24 hr 25 mg PO DAILY Rx Instructions: HOLD hr <55 HOLD SYSTOLIC <95 metformin 1,000 mg tablet 1,000 mg PO BID calcium carbonate-vitamin D3 [Calcium 600 + D(3)] 600 mg-5 mcg (200 unit) tablet 1 tab PO BID pantoprazole 40 mg tablet,delayed release (DR/EC) 40 mg PO DAILY acetaminophen 325 mg Tablet 650 mg PO Q6H PRN PRN (Reason: Pain 1-10 Or Fever>100.7) Qty: 0 0RF spironolactone 50 mg Tablet 50 mg PO DAILY Qty: 0 0RF mirabegron [Myrbetriq] 50 mg tablet extended release 24 hr 50 mg PO DAILY Daily Fiber (psyllium-aspart) 3 gram Powder In Packet 1 packet PO DAILY PRN PRN (Reason: Constipation) Qty: 0 0RF torsemide 40 mg tablet 40 mg PO BID 30 Days Qty: 60 1RF Rx Instructions: Hold for MARLA calcium polycarbophil [Fiber-Lax] 625 mg tablet PO Januvia 100 mg tablet 100 mg PO DAILY Jardiance 10 mg tablet 10 mg PO DAILY Trulance 3 mg tablet 3 mg PO DAILY 30 Days Qty: 30 6RF sucralfate 1 gram tablet 1 g PO BID Qty: 60 0RF Primary Care Provider: Bertrand Warner Referrals: Bertrand Warner MD [Primary Care Provider] - Print Language: Bengali Disposition Disposition: Acute Care Hospital [facility]
[2024-05-13 08:44] LABS: Absolute Lymphocyte Count 1.04 X10^3/uL (0.83-4.51); Absolute Neutrophil Count 8.1 X10^3/uL (2.0-7.7); Basophil% 0.9 % (0-1); Eosinophil# 0.22 X10^3/uL; Hematocrit 41.8 % (40-54); Hemoglobin 13.3 g/dL (13.0-16.5); Lymphocyte # 1.04 X10^3/ul (0.83-4.51); Lymphocyte % 9.7 % (19-41); Mean Corp Hgb Conc 31.8 g/dL (32-36); Mean Corpuscular Volume 84.8 fL (80-94); Mean Platelet Vol. 9.6 fl (6.2-12.0); Monocyte# 1.11 X10^3/uL; Monocyte% 10.3 % (0-10); NRBC Flagged by Analyzer 0 % (0-5); Neutrophil # 8.09 X10^3/uL (2.7-7.7); Neutrophil % 75.3 % (47-70); Platelet Count 247 K/mm3 (150-450); RBC Distribution Width CV 19.4 % (11.6-14.6); RBC Distribution Width SD 59.6 fl (35.1-43.9); Red Blood Count 4.93 M/mm3 (4.6-6.2); White Blood Count 10.8 K/mm3 (4.4-11.0)
--- NOTE | 2024-05-13 08:44 | RAD_ITS ---
INDICATION: LEFT CHEST PAIN EXAMINATION/TECHNIQUE: X-RAY - XR Chest 1 View COMPARISON: January 04, 2024 FINDINGS: LINES/DEVICES: There is a cardiac pacer device in place. LUNGS: There is a left basilar ill-defined opacity. No pneumothorax. MEDIASTINUM AND CARDIOVASCULAR STRUCTURES: There is stable cardiomegaly. There is persistent perihilar fullness. BONES AND SOFT TISSUES: Unremarkable. RAD/Chest 1 View (Portable) IMPRESSION: Left basilar atelectasis and/or pneumonia. Cardiomegaly and pulmonary venous congestion. Electronically Signed: Jovita Jose MD at 8:58 EDT ,
[2024-05-13] MEDS: 0.9% Normal Saline (1000mL) 1,000 ML 150 ML IV (09:02)
[2024-05-13 09:05] LABS: Anion Gap 14 (5-15); BUN 66 mg/dL (7-18); BUN/Creat Ratio 29.2 RATIO (10-20); Calcium,Total 9.6 mg/dL (8.5-10.1); Chloride 88 mmol/L (98-107); Creatinine, Serum 2.26 mg/dL (0.70-1.30); EST Glomerular Filtration Rate 30 mL/min (>60); Est Glom Filt Rate - Afr Amer 36 mL/min (>60); Estimated Creatinine Clearance 38.81 ml/min; Glucose 358 mg/dL (74-106); Potassium 5.3 mmol/L (3.5-5.1); Sodium Level 127 mmol/L (136-145); Troponin-I HS 30 pg/mL (3.0-78.0)
[2024-05-13 09:07] LABS: D-Dimer Quantitative (DVT/PE) 0.67 FEU/ug/m (0.27-0.49)
[2024-05-13] MEDS: 0.9% Normal Saline (500mL Bag) 500 ML 999 ML IV (09:21)
[2024-05-13 10:44] LABS: Bacteria 0 SEEN /hpf (None Seen); Mucous, Urine 0 SEEN /hpf (<or=2+); Red Blood Cells-Urine 0 SEEN /hpf (0-5); Squamous Epithelial Cells - UA 0 SEEN /hpf (0-5); White Blood Cells 0 SEEN /hpf (0-5)
[2024-05-13 10:45] LABS: Color, Urine Yellow (Yellow); Glucose, Dipstick 1000 mg/dl (Normal); Ketone-Dipstick Negative (Negative); Leukocyte Esterase-Dipstick Negative /ul (Negative); Nitrite-Dipstick Negative (Negative); Occult Blood-Urine Negative /ul (Negative); Protein-Dipstick 30 mg/dl (Negative); Urine Clarity Clear (Clear); Urine Urobilinogen Normal (Normal)
[2024-05-13 10:46] LABS: Urine Bilirubin Dipstick 1 mg/dL (Negative)
[2024-05-13] MEDS: Ceftriaxone 1 GM/50 ML BAG IV (10:57)
[2024-05-13 11:11] LABS: BNP,B-Type NATRIURETIC PEPTIDE 77.6 pg/mL (0-100)
[2024-05-13] MEDS: Azithromycin 500 MG in Dextrose 5%-Water (250mL Bag) 250 ML 250 MG IV (11:36)
--- NOTE | 2024-05-13 12:08 | NURSING ---
This RN called [facility] for med list, nurse was going to fax over a current med list @ [phone]
[2024-05-13 12:59] LABS: Osmolality, Urine 396 mOsm/KG; Urine Sodium 10 mmol/L (Not Establ.)
[2024-05-13 12:59] LABS: Osmolality, Serum 298 mOsm/KG (280-301)
--- NOTE | 2024-05-13 13:27 | VDLE_ITS ---
Reason For Study: Swelling BLE RIGHT LEFT GSV is normal. GSV is normal. CFV is patent and compressible. CFV is patent and compressible. Rt FV is compressible Lt FV is compressible Rt PopV is compressible Lt PopV is compressible. Rt PTV is dilated and NON COMPRESSIBLE T/P Trunk is compressible. consistent with acute DVT. PTV is compressible. T/P Trunk is compressible. LT PerV is compressible. RT PerV is compressible. Procedure This is a venous duplex using B-mode, color flow and spectral Doppler. Exam performed portable in patient room. The exam was abbreviated due to the COVID 19 protocol. A preliminary report was called and/or faxed to [facility]. VL/Venous Duplex US - Jon Extrem Interpretation Summary Acute deep vein thrombosis is noted in the right posterior tibial vein. Deep veins of the left lower extremity are patent and compressible segmentally. There is no evidence of left lower extremity deep vein thrombosis. The bilateral great saphenous vei ns appear patent and compressible segmentally Ordering Physician: Drew Jenkins Referring Physician: Bertrand Warner Performed By: Madeline Reich, DESTINEY, RVT
[2024-05-13 14:00] LABS: Procalcitonin 0.21 ng/mL (0.00-0.09)
--- NOTE | 2024-05-13 14:10 | EKG12_ITS ---
Test Reason : Blood Pressure : / mmHG Vent. Rate : 060 BPM Atrial Rate : 220 BPM P-R Int : 000 ms QRS Dur : 164 ms QT Int : 476 ms P-R-T Axes : 000 -60 105 degrees QTc Int : 476 ms Ventricular-paced rhythm Abnormal ECG When compared with ECG of 13-MAY-2024 08:40, MANUAL COMPARISON REQUIRED, DATA IS UNCONFIRMED Confirmed by Armaan Moura ([id number]), film or videotape editor LEIGH CABA ([id number]) on 05/15/2024 1:26:07 PM Referred By: SANCHEZ Confirmed By:Armaan Moura
[2024-05-13] MEDS: busPIRone 15 MG TABLET PO ×2 (14:36→22:44)
[2024-05-13] MEDS: Acetaminophen 325 MG Tablet 650 MG PO (14:36)
[2024-05-13] MEDS: 0.9% Saline Lock 10 ML Syringe IV ×3 (14:36→22:46)
--- NOTE | 2024-05-13 14:50 | RAD_ITS ---
STUDY: X-RAY - RIGHT ANKLE REASON FOR EXAM: Male, 83 years old. b/l diab foot wounds w/ LE erythema and swelling TECHNIQUE: 2 view(s) of the ankle. COMPARISON: None. FINDINGS: Normal visualized distal tibia and fibula. Normal medial and lateral malleoli. Normal tibiotalar articulation and ankle mortise. Normal visualized talus and calcaneus. Small plantar calcaneal enthesophyte. The visualized subtalar, talonavicular, calcaneocuboid and tarsal articulations are normal. The soft tissue structures are unremarkable. RAD/Ankle 2 Views IMPRESSION: Normal x-ray examination of the ankle. Electronically Signed: Won Jain MD at 17:30 EDT ,
--- NOTE | 2024-05-13 14:50 | RAD_ITS ---
INDICATION: b/l diab foot wounds w/ LE erythema and swelling EXAMINATION/TECHNIQUE: X-RAY - RIGHT XR Foot 2 Views 2 VIEWS COMPARISON: No relevant prior comparison study available FINDINGS: BONES: Mild osteopenia. No fracture demonstrated. No definite lytic lesion or cortical destruction. Plantar calcaneal spur. JOINTS: No dislocation. SOFT TISSUES: Soft tissue swelling dorsally. RAD/Foot 2 Views IMPRESSION: No evidence of fracture. Mild soft tissue swelling. Electronically Signed: Nena Calixto MD at 2:17 EDT ,
--- NOTE | 2024-05-13 14:50 | RAD_ITS ---
INDICATION: B/L DIAB FOOT WOUNDS W/ LE ERYTHEMA AND SWELLING EXAMINATION/TECHNIQUE: X-RAY - LEFT XR Tibia/Fibula 2 Views 3 VIEWS COMPARISON: FINDINGS: BONES: No fracture demonstrated. Distal tibia and fibula were not completely included, but were included in the ankle series which was reported separately. JOINTS: No dislocation. SOFT TISSUES: Mild soft tissue swelling anteriorly mid tibia level. RAD/Tibia & Fibula 2 Views IMPRESSION: Soft tissue swelling anteriorly. No evidence of fracture. Electronically Signed: Nena Calixto MD at 2:19 EDT ,
--- NOTE | 2024-05-13 14:50 | RAD_ITS ---
STUDY: X-RAY - LEFT ANKLE REASON FOR EXAM: Male, 83 years old. B/L DIAB FOOT WOUNDS W/ LE ERYTHEMA AND SWELLING TECHNIQUE: 2 view(s) of the ankle. COMPARISON: None. FINDINGS: Normal visualized distal tibia and fibula. Normal medial and lateral malleoli. Normal tibiotalar articulation and ankle mortise. Normal visualized talus and calcaneus. Small plantar calcaneal enthesophyte. The visualized subtalar, talonavicular, calcaneocuboid and tarsal articulations are normal. The soft tissue structures are unremarkable. RAD/Ankle 2 Views IMPRESSION: Normal x-ray examination of the ankle. Electronically Signed: Won Jain MD at 17:25 EDT ,
--- NOTE | 2024-05-13 14:50 | RAD_ITS ---
INDICATION: b/l diab foot wounds w/ LE erythema and swelling EXAMINATION/TECHNIQUE: X-RAY - RIGHT XR Tibia/Fibula 2 Views 3 VIEWS COMPARISON: FINDINGS: BONES: No fracture demonstrated. Distal tibia and fibula are not completely included, but were included in the ankle series which was reported separately. JOINTS: No dislocation. SOFT TISSUES: Mild soft tissue swelling anteriorly.. RAD/Tibia & Fibula 2 Views IMPRESSION: No evidence of fracture. Mild soft tissue swelling. Electronically Signed: Nena Calixto MD at 2:20 EDT ,
--- NOTE | 2024-05-13 14:50 | RAD_ITS ---
STUDY: X-RAY - LEFT FOOT CLINICAL: Male, 83 years old. B/L DIAB FOOT WOUNDS W/ LE ERYTHEMA AND SWELLING TECHNIQUE: 3 view(s) of the foot. COMPARISON: None. FINDINGS: Normal talus, calcaneus, and tarsal bones. Small plantar calcaneal enthesophyte. Normal visualized subtalar, talonavicular, calcaneocuboid, tarsal and tarsometatarsal articulations. Normal metatarsi. Normal metatarsophalangeal joint of the great toe. Normal tibial and fibular sesamoid bones. Normal interphalangeal joint of the great toe. Normal phalanges of the great toe. Normal second through fifth metatarsophalangeal joints. Normal interphalangeal joints and phalanges of the lesser toes. The soft tissue structures are unremarkable. RAD/Foot 2 Views IMPRESSION: Normal x-ray examination of the foot. Electronically Signed: Won Jain MD at 17:28 EDT ,
[2024-05-13 15:03] LABS: Bedside Glucose 187 mg/dL (74-106)
--- NOTE | 2024-05-13 16:50 | PCM.HP.STD ---
HPI - General General Date of Admission: 05/13/24 Date of Service: 05/13/24 Chief Complaint: Generalized fatigue and weakness HPI Narrative LINCOLN KENDRICK, is a 83 M who presented to [facility] ED on 05/13/2024 from his assisted living facility with worsening generalized fatigue with weakness. Found to be COVID-positive in the ED. Chest x-ray showed cardiomegaly with pulmonary venous congestion and left basilar atelectasis versus pneumonia. Notably, this chest x-ray appeared fairly similar to prior chest x-rays over the last several months. Patient was breathing comfortably on room air at rest. Labs notable for sodium 127, potassium 5.3, chloride 88, creatinine 2.26 (baseline around 1.0), glucose 358. CBC appeared hemoconcentrated as well. He notably was hospitalized here last May for a heart failure exacerbation. Was given gentle IV fluids in the ED as well as azithromycin and ceftriaxone for CAP coverage and hospitalist was contacted for admission. I saw the patient at bedside the ED. Patient had dry mucous membranes and was generally dry appearing on exam when I saw him. He was mildly fatigued appearing but was laying back comfortably in bed and answering questions appropriately. Stated that he is simply felt more weak over the past several days and has not been able to ambulate more than 10 to 15 feet without getting short of breath. He also notes a left-sided chest discomfort and ongoing mild left shoulder pain over this timeframe. Denies any recent sick contacts he is aware of. Has chronic bilateral lower extremity venous stasis changes and has some tenderness to palpation and erythema in both legs. He states the tenderness to palpation is worse than his normal. He otherwise denies any fevers or chills. No other acute concerns at this time. [facility] Medical History (Updated 05/13/24 @ 17:[address] Drew Jenkins, DO) Constipation Ulcer of left lower extremity with fat layer exposed DM2 (diabetes mellitus, type 2) Wound of right lower extremity History of echocardiogram Lives in assisted living facility [facility] as ambulation aid Arthritis Dietary restriction On home oxygen therapy Anxiety Depression CKD (chronic kidney disease), stage II Esophageal stricture Wears glasses Cancer Pancreatic abnormality Thyroid disease Shortness of breath on exertion Cardiology follow-up encounter Dysphagia GERD (gastroesophageal reflux disease) Atrial fibrillation Congestive heart failure (CHF) Diabetes Non-smoker BiPAP (biphasic positive airway pressure) dependence Asthma COPD (chronic obstructive pulmonary disease) Hyperlipemia Pacemaker Hypertension Ulcer of right lower extremity with fat layer exposed Chest pain Fall Paroxysmal atrial fibrillation Complete heart block 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 Atherosclerosis of coronary artery of [place] heart without angina pectoris Junctional escape rhythm Chronic venous insufficiency Swelling of lower extremity Edema of both legs Morbid obesity Prostate cancer Venous stasis dermatitis of both lower extremities Cholecystitis CHF (congestive heart failure) Ileus following gastrointestinal surgery Obstructive sleep apnea HLD (hyperlipidemia) Benign essential HTN Home Medications ?Medication ?Instructions ?Recorded ?Last Taken ?Type aspirin 81 mg chewable tablet 81 mg PO DAILY HEALTH MAINTENANCE 06/09/13 05/12/24 History magnesium oxide 400 mg (241.3 mg 400 mg PO DAILY MAGNESIUM 10/07/15 05/12/24 History magnesium) tablet atorvastatin 80 mg tablet 80 mg PO QHS HLD 08/05/18 05/12/24 History cholecalciferol (vitamin D3) 50 2,000 unit PO BID SUPPLEMENT 11/24/19 05/12/24 History mcg (2,000 unit) capsule fluticasone propionate 50 2 spray NASAL DAILY ALLERGIES 11/24/19 05/12/24 History mcg/actuation nasal spray,suspension montelukast 10 mg tablet 10 mg PO QHS ALLERGIES 11/24/19 05/12/24 History glimepiride 4 mg tablet 4 mg PO BREAKFAST DM 01/09/21 05/12/24 History mirtazapine 15 mg tablet 15 mg PO QHS mental health 01/09/21 05/12/24 History tamsulosin 0.4 mg capsule 0.4 mg PO QHS prostate 01/09/21 05/12/24 History docusate sodium 100 mg capsule 100 mg PO DAILY stool softner 07/15/21 05/12/24 History clopidogrel 75 mg tablet 75 mg PO DAILY prevent clots #30 11/17/22 05/12/24 Rx tabs fluticasone furoate 200 1 inh inhalation DAILY Check with 11/17/22 05/12/24 History mcg-vilanterol 25 mcg/dose primary doctor inhalation powder (Breo Ellipta) isosorbide mononitrate 30 mg 30 mg PO DAILY bp, heart #30 tabs 11/17/22 05/12/24 Rx tablet,extended release 24 hr losartan 25 mg tablet 25 mg PO QHS Check with primary 11/17/22 05/12/24 History doctor metoprolol succinate 25 mg 25 mg PO DAILY Check with primary 11/17/22 05/12/24 History tablet,extended release 24 hr doctor calcium carbonate 600 mg-vitamin 1 tab PO BID supplement 06/09/23 05/12/24 History D3 5 mcg (200 unit) tablet (Calcium 600 + D(3)) pantoprazole 40 mg tablet,delayed 40 mg PO DAILY GERD 06/09/23 05/12/24 History release metformin 1,000 mg tablet 1,000 mg PO BID blood glucose 06/20/23 05/12/24 History acetaminophen 325 mg tablet 650 mg (2 x 325 mg) PO Q6H PRN PRN 06/25/23 Unknown Rx Pain 1-10 Or Fever>100.7 #0 tabs spironolactone 50 mg tablet 50 mg PO DAILY directic #0 tabs 06/25/23 05/12/24 Rx plecanatide 3 mg tablet (Trulance) 3 mg PO DAILY chronic constipation 06/28/23 05/12/24 Rx 30 days #30 tabs buspirone 15 mg tablet 15 mg PO TID mood 10/25/23 05/12/24 History mirabegron 50 mg tablet,extended 50 mg PO DAILY . 12/07/23 05/12/24 History release 24 hr (Myrbetriq) sucralfate 1 gram tablet 1 g PO BID ulcers #60 tabs 01/07/24 05/12/24 Rx psyllium husk (aspartame) 3 gram 1 packet PO DAILY PRN PRN 01/08/24 Unknown Rx oral powder packet (Daily Fiber Constipation #0 ea (psyllium-aspartame)) torsemide 40 mg tablet 40 mg PO BID CHF 1 month #60 tabs 01/08/24 05/12/24 Rx calcium polycarbophil 625 mg 625 mg PO laxat 03/02/24 05/12/24 History tablet (Fiber-Lax) empagliflozin 10 mg tablet 10 mg PO DAILY DM 03/02/24 05/12/24 History (Jardiance) sitagliptin phosphate 100 mg 100 mg PO DAILY DM 03/02/24 05/12/24 History tablet (Januvia) ferrous fumarate 325 mg (106 mg 325 mg PO BID supplement 04/18/24 05/12/24 History iron) tablet loperamide 2 mg tablet (Imodium 2 mg PO Q4H PRN 04/18/24 Unknown History A-D) buspirone 20 mg .ROUTE TID anxiety 05/13/24 05/12/24 History omega-3 fatty acids-fish oil 300 1 cap PO DAILY supplement 05/13/24 05/12/24 History mg-1,000 mg capsule trazodone 50 mg tablet 50 mg PO DAILY insomnia 05/13/24 05/12/24 History Allergy/AdvReac Type Severity Reaction Status Date / Time lisinopril Allergy Unknown Verified 05/13/24 08:15 paroxetine (From Paxil) Allergy NEEDS Verified 05/13/24 08:15 FOLLOW-UP sertraline Allergy Unknown Verified 05/13/24 08:15 enoxaparin (From Lovenox) AdvReac PT UNSURE Verified 05/13/24 08:15 OF REACTION Family History Mother Lung cancer Father CAD (coronary artery disease) Hypertension Heart disease Myocardial infarction Brother Myocardial infarction Hypertension Heart disease CAD (coronary artery disease) Surgical History History of cardiac catheterization History of appendectomy History of coronary artery stent placement S/P CABG x 2 Coronary angioplasty status History of bilateral hip arthroplasty History of cholecystectomy Hx of CABG H/O coronary artery bypass surgery Presence of cardiac pacemaker Status post cholecystectomy Social History household members: none housing: assisted living facility number of children: 0 current occupational status: retired Smoking Status: Never smoker alcohol intake: never substance use type: does not use ROS Constitutional Constitutional: Reports fatigue and weakness; Denies chills or fever(s) Eyes Eyes: Denies change in vision Cardiovascular Cardiovascular: Reports dyspnea on exertion; Denies chest pain, edema, lightheadedness or palpitations Respiratory/Chest Respiratory/Chest: Reports cough and shortness of breath with exertion; Denies productive cough, shortness of breath at rest or wheezing Gastrointestinal Gastrointestinal: Denies abdominal pain, constipation, diarrhea, nausea or vomiting Genitourinary Genitourinary: Denies dysuria Musculoskeletal Musculoskeletal: Denies arthralgias or myalgias Neurologic Neurologic: Denies dizziness, focal weakness or headache(s) Vital Signs Vital Signs Vital Signs: 05/13/24 08:15 05/13/24 08:21 05/13/24 09:22 Temperature 98 F Temperature Source Oral Pulse Rate 73 60 Respiratory Rate 19 H 20 H Respiratory Effort Normal Respiratory Pattern Normal Blood Pressure 136/125 H 96/41 L Blood Pressure Mean 128 59 Blood Pressure Source Blood Pressure Position Blood Pressure Location Pulse Ox 92 94 Oxygen Delivery Method Room Air Room Air 05/13/24 11:00 05/13/24 11:51 05/13/24 13:31 Temperature 98.0 F 97.5 F L Temperature Source Oral Pulse Rate 61 60 62 Respiratory Rate 16 16 18 Respiratory Effort Respiratory Pattern Blood Pressure 100/79 114/64 115/57 L Blood Pressure Mean 86 80 76 Blood Pressure Source Monitor Blood Pressure Position Semi-Fowlers Blood Pressure Location Left Arm Pulse Ox 98 94 99 Oxygen Delivery Method Room Air Room Air Weight Weight: 154.845 kg Body Mass Index (BMI) 46.3 Physical Exam Const alert, oriented x3 and no apparent distress Constitutional Narrative: Elderly male, morbidly obese, mildly fatigued appearing, otherwise laying back comfortably in bed, conversing normally, in no acute distress. General Appearance: cooperative and comfortable HEENT normocephalic, head/scalp atraumatic, hearing grossly normal bilaterally and nasal mucous membranes and turbinates normal HEENT Narrative: Dry mucous membranes. Eyes PERRL, EOMs intact bilaterally and conjunctivae normal Neck full ROM Chest inspection of chest normal Resp normal respiratory effort and no use of accessory muscles Resp Narrative: Breathing comfortably on room air at rest. Diminished breath sounds noted bilaterally, worse on left. No wheezing or crackles noted. Cardio regular rate, regular rhythm, no murmurs and peripheral pulses 2+ throughout GI normal to inspection, nondistended, normoactive bowel sounds, soft to palpation, non-tender and non-distended Back/Spine normal ROM Extremity Extremity Narrative: Significant bilateral chronic venous stasis changes with erythema and tenderness to palpation noted bilaterally up to just below the knee. Skin Skin Narrative: Poor skin turgor noted. Neuro moves all extremities and no focal motor deficits Speech: speech normal Psych mental status grossly normal Results Lab / Micro Data 05/13/24 08:30 05/13/24 08:30 Labs: Laboratory Results - last 24 hr 05/13/24 08:30: WBC 10.8, RBC 4.93, Hgb 13.3, Hct 41.8, MCV 84.8, MCH 27.0, MCHC 31.8 L, RDW Std Deviation 59.6 H, RDW Coeff of Yue 19.4 H, Plt Count 247, MPV 9.6, Immature Gran % (Auto) 1.800 H, Neut % (Auto) 75.3 H, Lymph % (Auto) 9.7 L, [place] % (Auto) 10.3 H, Eos % (Auto) 2.0, Baso % (Auto) 0.9, Absolute Neuts (auto) 8.1 H, Absolute Lymphs (auto) 1.04, Nucleated RBC % 0, D-Dimer Quant (PE/DVT) 0.67 H*, Sodium 127 L, Potassium 5.3 H, Chloride 88 L, Carbon Dioxide 25.0, Anion Gap 14, BUN 66 H, Creatinine 2.26 H, Estim Creat Clear Calc 38.81, Est GFR (MDRD) Af Amer 36 L, Est GFR (MDRD) Non-Af 30 L, BUN/Creatinine Ratio 29.2 H, Glucose 358 H, Calcium 9.6, Troponin I High Sens 30 05/13/24 10:38: Urine Color Yellow, Urine Clarity Clear, Urine pH 5.0, Ur Specific [place] 1.010, Urine Protein 30 H, Urine Glucose (UA) 1000 H, Urine Ketones Negative, Urine Occult Blood Negative, Urine Nitrite Negative, Urine Bilirubin 1 H, Urine Urobilinogen Normal, Ur Leukocyte Esterase Negative, Urine RBC 0 SEEN, Urine WBC 0 SEEN, Ur Squamous Epith Cells 0 SEEN, Urine Bacteria 0 SEEN, Urine Mucus 0 SEEN, Urine Osmolality 396, Ur Random Sodium 10, Urine Creatinine 93.10 05/13/24 10:48: B-Natriuretic Peptide 77.6 05/13/24 12:30: Serum Osmolality 298, Procalcitonin 0.21 H 05/13/24 14:34: POC Glucose 187 H Micro: Microbiology 05/13/24 14:58 Mucosa - Nose Coronavirus COVID-19 PCR - Final SARS-CoV-2 (COVID 19 PCR) 05/13/24 10:38 Urine, Clean Catch Legionella Antigen - Final 05/13/24 10:38 Urine, Clean Catch Streptococcus pneumoniae Antigen (M - Final Imaging Radiology Impression Chest X-Ray 05/13/24 08:44 IMPRESSION: Left basilar atelectasis and/or pneumonia. Cardiomegaly and pulmonary venous congestion. Electronically Signed: Jovita Jose MD at 8:58 EDT , Assessment & Plan Assessment/Plan (1) COVID-19: (2) Weakness: (3) MARLA (acute kidney injury): PLAN: Plan Patient is an 83-year-old male who presented to [facility] ED on 05/13/2024 with worsening generalized fatigue with weakness. 1. COVID-19 infection ? Admit under inpatient status to PCU. COVID-19 positive on admit. Suspect COVID infection is the primary driver's license reviewing officer of his symptoms on admission. Procalcitonin only 0.21. Chest x-ray concerning for left-sided pneumonia but notably is similar to prior chest x-rays. Not hypoxic but given his symptoms, will treat with IV steroids and IV antibiotics for now but low threshold to discontinue antibiotics. Infectious workup pending. 2. Bilateral lower extremity venous stasis with concern for possible cellulitis ? Known chronic venous stasis changes but has worsening erythema and tenderness to palpation on exam. Did have lower extremity duplex ultrasound done in February that was negative. Will repeat duplex ultrasound at this time. Has history of diabetes as noted below; will obtain basic x-rays to evaluate for soft tissue swelling and ensure no bone involvement if infection is present. 3. Type 2 diabetes mellitus with hyperglycemia ? Blood glucose 358 on admit. Last A1c 9.1%, repeat A1c ordered. Will treat with Lantus 15 units at night and sliding scale insulin with meals while inpatient, adjust as needed. 4. MARLA with dehydration ? Creatinine 2.26 on admit, baseline creatinine appears to be around 1.0. Suspect prerenal etiology. IV fluid resuscitation given on admission; will need to be gentle with fluid resuscitation given heart failure history as noted below. Follow-up a.m. BMP and monitor urine output. 5. Hyponatremia ? Sodium 127 on admit. Chloride 88. Suspect due to dehydration with poor p.o. intake. Given fluid resuscitation on admission as noted above. Follow-up a.m. sodium. 6. Acute on chronic debility ? PT/OT/case management consulted. Lives in assisted living and is weaker than baseline, may require SNF on discharge. Chronic medical conditions: ? Morbid obesity: BMI 46 on admit. Complicates hospital course, care and prognosis. ? HFpEF, CAD s/p CABG and PCI, hypertension: Hospitalized for heart failure exacerbation in May 2023. Dry appearing with borderline low blood pressures on admission. Will hold home empagliflozin, nitrate, losartan, Toprol, torsemide and spironolactone for now. Continue home aspirin, Plavix and statin. ? Paroxysmal A-fib: In normal sinus rhythm on admit. Not on anticoagulation at baseline. Continue home Toprol. ? COPD/asthma with allergic rhinitis: Not in COPD exacerbation on admit, stable on room air. Continue home inhalers. ? BPH with obstructive symptoms: Continue home Flomax. ? GERD: Continue home PPI. ? Anxiety/depression/insomnia: Continue home BuSpar, mirtazapine and trazodone. DVT prophylaxis: Lovenox twice daily CODE STATUS: Full code, verified Expected disposition: TBD Total clinical time spent by myself addressing the patient's medical issues, reviewing all the data, and collaborating with patient's care team: 75 minutes. Charges/Coding Visit Charges Inpatient E&M: 88150 Init Hosp L3
[2024-05-13 17:23] LABS: Bedside Glucose 148 mg/dL (74-106)
[2024-05-13] MEDS: dexAMETHasone 4 MG/ML Vial 6 MG IV (18:56)
[2024-05-13] MEDS: Budesonide Respules 0.5 MG/2 ML AMPUL.NEB. INHALATION (19:32)
[2024-05-13] MEDS: Albuterol 2.5 MG/3 ML VIAL.NEB. INHALATION (19:33)
--- NOTE | 2024-05-13 20:21 | PCM.HOSP.N ---
Hospitalist Note Called by staff toxicologist secondary to lovenox order. Noted allergy listed but unclear reaction. Asked RN to verify with patient and in the interim will change to heparin.
[2024-05-13] MEDS: Mirtazapine 15 MG Tablet PO (22:43)
[2024-05-13] MEDS: Montelukast 10 MG Tablet PO (22:43)
[2024-05-13] MEDS: Atorvastatin Calcium 80 MG Tablet PO (22:43)
[2024-05-13] MEDS: Cholecalciferol (VIT D3) 25 MCG TABLET (1,000 UNITS) 50 MCG PO (22:43)
[2024-05-13] MEDS: traZODone 50 MG Tablet PO (22:43)
[2024-05-13] MEDS: Tamsulosin HCl 0.4 MG Capsule PO (22:43)
[2024-05-13] MEDS: Calcium Carb/Vitamin D 1 TABLET Tablet PO (22:44)
[2024-05-13] MEDS: Heparin Injection (Vial) 5,000 UNIT/ML VIAL 5000 UNIT SC (22:44)
[2024-05-13] MEDS: Insulin Lispro 100 UNIT/ML INSULN.PEN SC (22:44)
[2024-05-13] MEDS: Insulin Glargine-YFGN 100 UNIT/ML Pen 15 UNIT SC (22:45)
[2024-05-13 23:16] LABS: Bedside Glucose 316 mg/dL (74-106)
[2024-05-14] VITALS (8 sets, daily range): BP systolic 122–156; BP diastolic 60–76; PULSE 60–88; RESP 16–20; TEMP 36–36.6; O2SAT 95–98; BMI 46.1
[2024-05-14] MEDS: Insulin Lispro 100 UNIT/ML INSULN.PEN SC ×4 (06:26→22:43)
[2024-05-14] MEDS: Heparin Injection (Vial) 5,000 UNIT/ML VIAL 5000 UNIT SC ×3 (06:26→22:44)
[2024-05-14] MEDS: busPIRone 15 MG TABLET PO ×3 (06:27→22:46)
[2024-05-14 06:50] LABS: Bedside Glucose 315 mg/dL (74-106)
[2024-05-14 07:08] LABS: Hematocrit 43.1 % (40-54); Hemoglobin 13.9 g/dL (13.0-16.5); Mean Corp Hgb Conc 32.3 g/dL (32-36); Mean Corpuscular Hgb 27.7 pg (27.0-32.0); Mean Corpuscular Volume 85.9 fL (80-94); Mean Platelet Vol. 9.3 fl (6.2-12.0); Platelet Count 248 K/mm3 (150-450); RBC Distribution Width CV 19.7 % (11.6-14.6); RBC Distribution Width SD 61.1 fl (35.1-43.9); Red Blood Count 5.02 M/mm3 (4.6-6.2); White Blood Count 10.2 K/mm3 (4.4-11.0)
[2024-05-14] MEDS: Budesonide Respules 0.5 MG/2 ML AMPUL.NEB. INHALATION ×2 (07:14→20:10)
[2024-05-14] MEDS: Albuterol 2.5 MG/3 ML VIAL.NEB. INHALATION ×2 (07:14→20:10)
[2024-05-14 07:24] LABS: Anion Gap 9 (5-15); BUN 56 mg/dL (7-18); BUN/Creat Ratio 34.8 RATIO (10-20); Calcium,Total 9.5 mg/dL (8.5-10.1); Chloride 93 mmol/L (98-107); Creatinine, Serum 1.61 mg/dL (0.70-1.30); EST Glomerular Filtration Rate 44 mL/min (>60); Est Glom Filt Rate - Afr Amer 53 mL/min (>60); Glucose 331 mg/dL (74-106); Potassium 5.3 mmol/L (3.5-5.1); Sodium Level 129 mmol/L (136-145)
[2024-05-14 07:40] LABS: Hemoglobin A1c 9.5 % (3.8-5.6)
--- NOTE | 2024-05-14 10:23 | PN.HOSP_ITS ---
Reason for Visit Reason for Visit: Diagnoses Acute kidney failure, unspecified (05/13/24) Weakness (05/13/24) COVID-19 (05/13/24) Subjective Subjective Saw patient at bedside this morning. Patient appears improved from yesterday. Was laying back comfortably in bed in no acute distress and appeared to have better energy and was less dry in exam. Patient stated that he felt moderately better than yesterday after IV fluid resuscitation. Denied any shortness of breath or cough. Had not been out of bed this morning but generally felt like his energy was improved and he was looking forward to getting up and walking with assistance of nursing or therapy. No other new concerns this morning. Objective Data Objective Data Vital Signs: Vital Signs Temp Pulse Resp BP Pulse Ox O2 Del Method O2 Flow Rate 96.8 F L 60 16 151/64 H 95 Bi-pap 4 05/14/24 04:28 05/14/24 07:14 05/14/24 07:14 05/14/24 04:28 05/14/24 07:14 05/14/24 04:36 05/14/24 04:36 Oxygen Flow Rate (L/min) 4 Oxygen Delivery Method Bi-pap Weight: 154.4 kg Body Mass Index (BMI) 46.1 Intake & Output: Intake and Output for Last 24 Hours 05/12/24 05/13/24 05/14/24 23:59 23:59 23:59 Intake Total 1590 / 1590 Output Total 550 / 550 350 / 350 Balance 1040 / 1040 -350 / -350 Lab / Micro Data 05/14/24 05:40 05/14/24 05:40 Labs: Laboratory Results - last 24 hr 05/13/24 10:38: Urine Color Yellow, Urine Clarity Clear, Urine pH 5.0, Ur Specific [place] 1.010, Urine Protein 30 H, Urine Glucose (UA) 1000 H, Urine Ketones Negative, Urine Occult Blood Negative, Urine Nitrite Negative, Urine Bilirubin 1 H, Urine Urobilinogen Normal, Ur Leukocyte Esterase Negative, Urine RBC 0 SEEN, Urine WBC 0 SEEN, Ur Squamous Epith Cells 0 SEEN, Urine Bacteria 0 SEEN, Urine Mucus 0 SEEN, Urine Osmolality 396, Ur Random Sodium 10, Urine Creatinine 93.10 05/13/24 10:48: B-Natriuretic Peptide 77.6 05/13/24 12:30: Serum Osmolality 298, Procalcitonin 0.21 H 05/13/24 14:34: POC Glucose 187 H 05/13/24 17:00: POC Glucose 148 H 05/13/24 22:23: POC Glucose 316 H 05/14/24 05:40: WBC 10.2, RBC 5.02, Hgb 13.9, Hct 43.1, MCV 85.9, MCH 27.7, MCHC 32.3, RDW Std Deviation 61.1 H, RDW Coeff of Yue 19.7 H, Plt Count 248, MPV 9.3, Sodium 129 L, Potassium 5.3 H, Chloride 93 L, Carbon Dioxide 27.0, Anion Gap 9, BUN 56 H, Creatinine 1.61 H, Estim Creat Clear Calc 54.20, Est GFR (MDRD) Af Amer 53 L, Est GFR (MDRD) Non-Af 44 L, BUN/Creatinine Ratio 34.8 H, Glucose 331 H, Hemoglobin A1c 9.5 H, Calcium 9.5 05/14/24 06:22: POC Glucose 315 H Micro: Microbiology 05/13/24 15:40 Mucosa - Nasopharyngeal Respiratory Panel (PCR) - Final 05/13/24 14:58 Mucosa - Nose Coronavirus COVID-19 PCR - Final SARS-CoV-2 (COVID 19 PCR) 05/13/24 10:38 Urine, Clean Catch Legionella Antigen - Final 05/13/24 10:38 Urine, Clean Catch Streptococcus pneumoniae Antigen (M - Final Radiography Diagnostic Testing: Radiology Impression Chest X-Ray 05/13/24 08:44 IMPRESSION: Left basilar atelectasis and/or pneumonia. Cardiomegaly and pulmonary venous congestion. Electronically Signed: Jovita Jsoe MD at 8:58 EDT , Ankle X-Ray 05/13/24 14:50 IMPRESSION: Normal x-ray examination of the ankle. Electronically Signed: Won Jain MD at 17:30 EDT , Ankle X-Ray 05/13/24 14:50 IMPRESSION: Normal x-ray examination of the ankle. Electronically Signed: Won Jain MD at 17:25 EDT , Foot X-Ray 05/13/24 14:50 IMPRESSION: No evidence of fracture. Mild soft tissue swelling. Electronically Signed: Nena Calixto MD at 2:17 EDT , Foot X-Ray 05/13/24 14:50 IMPRESSION: Normal x-ray examination of the foot. Electronically Signed: Won Jain MD at 17:28 EDT , Tibia/Fibula X-Ray 05/13/24 14:50 IMPRESSION: No evidence of fracture. Mild soft tissue swelling. Electronically Signed: Nena Calixto MD at 2:20 EDT Reading Location ID and State: [id number] / [facility] Tel , Service support , Tibia/Fibula X-Ray 05/13/24 14:50 IMPRESSION: Soft tissue swelling anteriorly. No evidence of fracture. Electronically Signed: Nena Calixto MD at 2:19 EDT , Physical Exam Const alert, oriented x3 and no apparent distress Constitutional Narrative: Elderly male, morbidly obese, energy level improved from yesterday, laying back comfortably in bed, conversing normally, in no acute distress. General Appearance: cooperative and comfortable HEENT normocephalic, head/scalp atraumatic, hearing grossly normal bilaterally, nasal mucous membranes and turbinates normal and moist oral mucous membranes Eyes PERRL, EOMs intact bilaterally and conjunctivae normal Neck full ROM Chest inspection of chest normal Resp normal respiratory effort and no use of accessory muscles Resp Narrative: Breathing comfortably on room air at rest. Mildly diminished breath sounds noted bilaterally, worse on left. No wheezing or crackles noted. Stable. Cardio regular rate, regular rhythm, no murmurs and peripheral pulses 2+ throughout GI normal to inspection, nondistended, normoactive bowel sounds, soft to palpation, non-tender and non-distended Back/Spine normal ROM Extremity Extremity Narrative: Significant bilateral chronic venous stasis changes noted. Mild erythema noted up to the mid calf with mild tenderness palpation, stable. Neuro moves all extremities and no focal motor deficits Speech: speech normal Psych mental status grossly normal Assessment & Plan Assessment/Plan (1) COVID-19: (2) Weakness: (3) MARLA (acute kidney injury): PLAN: Plan Patient is an 83-year-old male who presented to [facility] ED on 05/13/2024 with worsening generalized fatigue with weakness. 1. COVID-19 infection ? COVID-19 positive on admit. 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 Procalcitonin only 0.21. Chest x-ray concerning for left-sided pneumonia but notably is similar to prior chest x-rays. Not hypoxic and no significant respiratory symptoms on hospital day 2. Given his blood sugars have been elevated on steroids and patient is not hypoxic, steroids discontinued on 05/14. Infectious workup otherwise negative to this point and have low concern for superimposed bacterial infection, so IV antibiotics also discontinued on 05/14. Continue with symptomatic treatment at this time. If patient continues to have improvement in MARLA and hyponatremia and lower extremity duplex ultrasound is negative tomorrow, should be medically ready for discharge. 2. Bilateral lower extremity venous stasis ? Known chronic venous stasis changes but did have some erythema and tenderness to palpation noted on admission. X-rays of lower legs showed mild soft tissue swelling with no bone involvement. Had lower extremity duplex ultrasound done in February that was negative. Given his COVID infection noted above and suspected limited mobility recently, will have lower extremity duplex ultrasound done tomorrow to confirm no DVT. 3. Type 2 diabetes mellitus with hyperglycemia ? Blood glucose 358 on admit. Last A1c 9.1% on 02/09, repeat A1c 9.5% on admit. Treating with Lantus 15 units at night and high-dose sliding scale insulin with meals while inpatient, will adjust as needed. 4. MARLA with dehydration, improving ? Creatinine 2.26 on admit, baseline creatinine appears to be around 1.0. Creatinine improved to 1.6 on hospital day 2 after IV fluid resuscitation. Presumed prerenal etiology. Given another small fluid bolus on 05/14 but will hold on any further fluids given his history of heart failure as noted below. Follow-up a.m. BMP and monitor urine output. 5. Hyponatremia ? Sodium 127 on admit. Chloride 88. Suspected multifactorial from poor p.o. intake and reported increased water intake by patient over the past few days prior to admission. Given IV normal saline fluid resuscitation on admission. Sodium improved to 129 on hospital day 2. Small fluid bolus of normal saline given on 05/14. Will place 2 L fluid restriction on patient while here. Follow- up a.m. sodium level. 6. Acute on chronic debility ? PT/OT/case management following. Lives in assisted living and uses 4 wheeled walker at baseline and is apparently independent with ADLs. Unfortunately had very poor therapy scores on 05/14, will need to discuss SNF placement at discharge with case management on Wednesday. Chronic medical conditions: ? Morbid obesity: BMI 46 on admit. Complicates hospital course, care and prognosis. ? HFpEF, CAD s/p CABG and PCI, hypertension: Hospitalized for heart failure exacerbation in May 2023. Dry appearing with borderline low blood pressures on admission. Will hold home empagliflozin, nitrate, losartan, Toprol, torsemide and spironolactone for now. Continue home aspirin, Plavix and statin. ? Paroxysmal A-fib: In normal sinus rhythm on admit. Not on anticoagulation at baseline. Continue home Toprol. ? COPD/asthma with allergic rhinitis: Not in COPD exacerbation on admit, stable on room air. Continue home inhalers. ? BPH with obstructive symptoms: Continue home Flomax. ? GERD: Continue home PPI. ? Anxiety/depression/insomnia: Continue home BuSpar, mirtazapine and trazodone. DVT prophylaxis: Lovenox twice daily CODE STATUS: Full code, verified Expected disposition: Likely SNF, 1 to 2 days Total clinical time spent by myself addressing the patient's medical issues, reviewing all the data, and collaborating with patient's care team: 35 minutes.
[2024-05-14] MEDS: Clopidogrel Bisulfate 75 MG Tablet PO (11:28)
[2024-05-14] MEDS: Aspirin 81 MG TAB.CHEW PO (11:28)
[2024-05-14] MEDS: Cholecalciferol (VIT D3) 25 MCG TABLET (1,000 UNITS) 50 MCG PO ×2 (11:28→22:47)
[2024-05-14] MEDS: Docusate Sodium 100 MG Capsule PO (11:28)
[2024-05-14] MEDS: Calcium Carb/Vitamin D 1 TABLET Tablet PO ×2 (11:29→22:45)
[2024-05-14] MEDS: Vibegron 75 MG TABLET PO (11:29)
[2024-05-14] MEDS: Ferrous Sulfate 325 MG Tablet PO (11:29)
[2024-05-14] MEDS: Fluticasone 0.05% 1 SPRAY NASAL.SRY 2 SPRAY NASAL (11:29)
[2024-05-14] MEDS: Acetaminophen 325 MG Tablet 650 MG PO (11:29)
[2024-05-14] MEDS: Pantoprazole Sodium 40 MG Tablet PO (11:29)
[2024-05-14] MEDS: 0.9% Normal Saline (1000mL) 1,000 ML 150 ML IV (11:49)
[2024-05-14 12:12] LABS: Bedside Glucose 394 mg/dL (74-106)
[2024-05-14] MEDS: 0.9% Saline Lock 10 ML Syringe IV (16:45)
[2024-05-14 17:06] LABS: Bedside Glucose 394 mg/dL (74-106)
[2024-05-14] MEDS: traZODone 50 MG Tablet PO (22:46)
[2024-05-14] MEDS: Tamsulosin HCl 0.4 MG Capsule PO (22:46)
[2024-05-14] MEDS: Montelukast 10 MG Tablet PO (22:47)
[2024-05-14] MEDS: Atorvastatin Calcium 80 MG Tablet PO (22:47)
[2024-05-14] MEDS: Mirtazapine 15 MG Tablet PO (22:47)
[2024-05-14] MEDS: Insulin Glargine-YFGN 100 UNIT/ML Pen 15 UNIT SC (22:48)
[2024-05-15] VITALS (11 sets, daily range): BP systolic 139–150; BP diastolic 56–73; PULSE 60–77; RESP 16–26; TEMP 36.4–36.7; O2SAT 94–100
[2024-05-15 00:05] LABS: Bedside Glucose 344 mg/dL (74-106)
[2024-05-15] MEDS: Heparin Injection (Vial) 5,000 UNIT/ML VIAL 5000 UNIT SC ×3 (06:07→22:08)
[2024-05-15] MEDS: busPIRone 15 MG TABLET PO ×3 (06:07→22:09)
[2024-05-15] MEDS: Insulin Lispro 100 UNIT/ML INSULN.PEN SC ×4 (06:10→22:05)
[2024-05-15 06:35] LABS: Bedside Glucose 246 mg/dL (74-106)
[2024-05-15 07:19] LABS: Hematocrit 44.5 % (40-54); Hemoglobin 14.2 g/dL (13.0-16.5); Mean Corp Hgb Conc 31.9 g/dL (32-36); Mean Corpuscular Hgb 27.6 pg (27.0-32.0); Mean Corpuscular Volume 86.6 fL (80-94); Mean Platelet Vol. 9.3 fl (6.2-12.0); Platelet Count 252 K/mm3 (150-450); RBC Distribution Width CV 19.7 % (11.6-14.6); RBC Distribution Width SD 60.9 fl (35.1-43.9); Red Blood Count 5.14 M/mm3 (4.6-6.2); White Blood Count 11.9 K/mm3 (4.4-11.0)
[2024-05-15 08:06] LABS: Anion Gap 8 (5-15); BUN 46 mg/dL (7-18); BUN/Creat Ratio 34.1 RATIO (10-20); Calcium,Total 9.7 mg/dL (8.5-10.1); Chloride 97 mmol/L (98-107); Creatinine, Serum 1.35 mg/dL (0.70-1.30); EST Glomerular Filtration Rate 54 mL/min (>60); Est Glom Filt Rate - Afr Amer 65 mL/min (>60); Estimated Creatinine Clearance 64.64 ml/min; Glucose 244 mg/dL (74-106); Potassium 5.5 mmol/L (3.5-5.1); Sodium Level 131 mmol/L (136-145)
[2024-05-15] MEDS: Albuterol 2.5 MG/3 ML VIAL.NEB. INHALATION ×3 (08:10→20:25)
[2024-05-15] MEDS: Budesonide Respules 0.5 MG/2 ML AMPUL.NEB. INHALATION ×2 (08:10→20:25)
[2024-05-15] MEDS: Cholecalciferol (VIT D3) 25 MCG TABLET (1,000 UNITS) 50 MCG PO ×2 (11:08→22:08)
[2024-05-15] MEDS: Vibegron 75 MG TABLET PO (11:08)
[2024-05-15] MEDS: Pantoprazole Sodium 40 MG Tablet PO (11:09)
[2024-05-15] MEDS: Aspirin 81 MG TAB.CHEW PO (11:09)
[2024-05-15] MEDS: Fluticasone 0.05% 1 SPRAY NASAL.SRY 2 SPRAY NASAL (11:09)
[2024-05-15] MEDS: Docusate Sodium 100 MG Capsule PO (11:10)
[2024-05-15] MEDS: Clopidogrel Bisulfate 75 MG Tablet PO (11:10)
[2024-05-15] MEDS: Ferrous Sulfate 325 MG Tablet PO (11:10)
[2024-05-15 11:42] LABS: Bedside Glucose 213 mg/dL (74-106)
--- NOTE | 2024-05-15 11:53 | PN.HOSP_ITS ---
Reason for Visit Reason for Visit: Diagnoses Acute kidney failure, unspecified (05/13/24) Weakness (05/13/24) COVID-19 (05/13/24) Subjective Subjective Breathing ok. Still with LE edema. Objective Data Objective Data Vital Signs: Vital Signs Temp Pulse Resp BP Pulse Ox O2 Del Method O2 Flow Rate 36.4 C L 64 18 150/73 H 99 Bi-pap 4 05/15/24 11:07 05/15/24 11:07 05/15/24 11:07 05/15/24 11:07 05/15/24 11:07 05/15/24 11:07 05/15/24 11:07 Oxygen Flow Rate (L/min) 4 Oxygen Delivery Method Bi-pap Weight: 154.4 kg Body Mass Index (BMI) 46.1 Intake & Output: Intake and Output for Last 24 Hours 05/13/24 05/14/24 05/15/24 23:59 23:59 23:59 Intake Total 1590 / 1590 1360 / 1360 240 / 240 Output Total 550 / 550 600 / 600 500 / 500 Balance 1040 / 1040 760 / 760 -260 / -260 Lab / Micro Data 05/15/24 06:42 05/15/24 06:42 Labs: Laboratory Results - last 24 hr 05/14/24 11:26: POC Glucose 394 H 05/14/24 16:34: POC Glucose 394 H 05/14/24 22:42: POC Glucose 344 H 05/15/24 06:09: POC Glucose 246 H 05/15/24 06:42: WBC 11.9 H, RBC 5.14, Hgb 14.2, Hct 44.5, MCV 86.6, MCH 27.6, M CHC 31.9 L, RDW Std Deviation 60.9 H, RDW Coeff of Yue 19.7 H, Plt Count 252, MPV 9.3, Sodium 131 L, Potassium 5.5 H, Chloride 97 L, Carbon Dioxide 26.0, Anion Gap 8, BUN 46 H, Creatinine 1.35 H, Estim Creat Clear Calc 64.64, Est GFR (MDRD) Af Amer 65, Est GFR (MDRD) Non-Af 54 L, BUN/Creatinine Ratio 34.1 H, G lucose 244 H, Calcium 9.7 05/15/24 11:16: POC Glucose 213 H Micro: Microbiology 05/13/24 10:48 Blood Culture (Wb) - Right Wrist Blood Culture - Preliminary No growth in 48 hours. 05/13/24 22:39 Sputum, Expectorated/Coughed Gram Stain - Final 05/13/24 15:40 Mucosa - Nasopharyngeal Respiratory Panel (PCR) - Final 05/13/24 14:58 Mucosa - Nose Coronavirus COVID-19 PCR - Final SARS-CoV-2 (COVID 19 PCR) 05/13/24 10:38 Urine, Clean Catch Legionella Antigen - Final 05/13/24 10:38 Urine, Clean Catch Streptococcus pneumoniae Antigen (M - Final Physical Exam Const alert and no apparent distress HEENT head/scalp atraumatic and moist oral mucous membranes Resp normal respiratory effort, no retractions, no use of accessory muscles and clear to auscultation bilaterally Cardio regular rate, regular rhythm, S1 normal heart sound and S2 normal heart sound GI normal to inspection, nondistended, normoactive bowel sounds, soft to palpation, non-tender and non-distended Extremity General Extremity: edema bilateral lower extremity Details: moderate (w lymphedematous changes. ) Neuro Sensorium / Orientation: awake and alert Assessment & Plan Assessment/Plan (1) COVID-19: (2) Weakness: (3) MARLA (acute kidney injury): PLAN: Plan COVID-19 infection * COVID-19 positive on admit. * Procalcitonin only 0.21. Chest x-ray concerning for left-sided pneumonia but notably is similar to prior chest x-rays. * Not hypoxic and no significant respiratory symptoms on hospital day 2. Given his blood sugars have been elevated on steroids and patient is not hypoxic, steroids discontinued on 05/14. Infectious workup otherwise negative to this point and have low concern for superimposed bacterial infection, so IV antibiotics also discontinued on 05/14. * Continue with symptomatic treatment at this time. DVT: * prelim report is below the knee on the right (official report pending) * hold off anticoagulation Type 2 diabetes mellitus with hyperglycemia * Blood glucose 358 on admit. Last A1c 9.1% on 02/09, repeat A1c 9.5% on admit. Treating with Lantus 15 units at night and high-dose sliding scale insulin with meals while inpatient, will adjust as needed. MARLA with dehydration, improving * Creatinine 2.26 on admit, baseline creatinine appears to be around 1.0. Creatinine improved to 1.6 on hospital day 2 after IV fluid resuscitation. Presumed prerenal etiology. Given another small fluid bolus on 05/14 but will hold on any further fluids given his history of heart failure as noted below. Follow-up a.m. BMP and monitor urine output. Hyponatremia * Sodium 127 on admit. Chloride 88. Suspected multifactorial from poor p.o. intake and reported increased water intake by patient over the past few days prior to admission. Given IV normal saline fluid resuscitation on admission. Sodium improved to 129 on hospital day 2. Small fluid bolus of normal saline given on 05/14. Will place 2 L fluid restriction on patient while here. Follow-up a.m. sodium level. Acute on chronic debility * PT/OT/case management following. Lives in assisted living and uses 4 wheeled walker at baseline and is apparently independent with ADLs. Unfortunately had very poor therapy scores on 05/14, will need to discuss SNF placement at discharge with case management on Wednesday. Chronic medical conditions: * obesity class III: Complicates hospital course, care and prognosis. * HFpEF, CAD s/p CABG and PCI, hypertension: Hospitalized for heart failure exacerbation in May 2023. Dry appearing with borderline low blood pressures on admission. Will hold home empagliflozin, nitrate, losartan, Toprol. Resume diuretics as MARLA resolving. Continue home aspirin, Plavix and statin. * Paroxysmal A-fib: In normal sinus rhythm on admit. Not on anticoagulation at baseline. Continue home Toprol. * COPD/asthma with allergic rhinitis: Not in COPD exacerbation on admit, stable on room air. Continue home inhalers. * BPH with obstructive symptoms: Continue home Flomax. * GERD: Continue home PPI. * Anxiety/depression/insomnia: Continue home BuSpar, mirtazapine and trazodone. DVT prophylaxis: Lovenox twice daily CODE STATUS: Full code, verified Expected disposition: Likely SNF, 1 to 2 days Charges/Coding Visit Charges Inpatient E&M: 73080 Subs Hosp L2
[2024-05-15] MEDS: FLU VACCINE **HIGH DOSE** TV 24-25 180 MCG/0.5 ML SYRINGE IM (16:58)
[2024-05-15 17:26] LABS: Bedside Glucose 252 mg/dL (74-106)
[2024-05-15] MEDS: Insulin Glargine-YFGN 100 UNIT/ML Pen 15 UNIT SC (22:05)
[2024-05-15] MEDS: traZODone 50 MG Tablet PO (22:08)
[2024-05-15] MEDS: Furosemide 80 MG Tablet PO (22:08)
[2024-05-15] MEDS: Calcium Carb/Vitamin D 1 TABLET Tablet PO (22:08)
[2024-05-15] MEDS: Tamsulosin HCl 0.4 MG Capsule PO (22:08)
[2024-05-15] MEDS: Mirtazapine 15 MG Tablet PO (22:08)
[2024-05-15] MEDS: Atorvastatin Calcium 80 MG Tablet PO (22:09)
[2024-05-15] MEDS: Montelukast 10 MG Tablet PO (22:16)
[2024-05-15 22:35] LABS: Bedside Glucose 244 mg/dL (74-106)
[2024-05-16] VITALS (12 sets, daily range): BP systolic 138–142; BP diastolic 50–67; PULSE 60–82; RESP 16–22; TEMP 35.8–36.2; O2SAT 93–99; BMI 46.2
[2024-05-16] MEDS: busPIRone 15 MG TABLET PO ×3 (05:27→21:17)
[2024-05-16] MEDS: Heparin Injection (Vial) 5,000 UNIT/ML VIAL 5000 UNIT SC ×3 (05:27→21:14)
[2024-05-16] MEDS: Insulin Lispro 100 UNIT/ML INSULN.PEN SC ×4 (06:25→21:18)
[2024-05-16] MEDS: Budesonide Respules 0.5 MG/2 ML AMPUL.NEB. INHALATION ×2 (07:31→20:18)
[2024-05-16 08:03] LABS: Anion Gap 7 (5-15); BUN 46 mg/dL (7-18); BUN/Creat Ratio 32.9 RATIO (10-20); Calcium,Total 9.8 mg/dL (8.5-10.1); Chloride 96 mmol/L (98-107); EST Glomerular Filtration Rate 52 mL/min (>60); Est Glom Filt Rate - Afr Amer 62 mL/min (>60); Estimated Creatinine Clearance 62.37 ml/min; Glucose 239 mg/dL (74-106); Potassium 5.2 mmol/L (3.5-5.1); Sodium Level 129 mmol/L (136-145)
--- NOTE | 2024-05-16 08:36 | PN.HOSP_ITS ---
Reason for Visit Reason for Visit: Diagnoses Acute kidney failure, unspecified (05/13/24) Weakness (05/13/24) COVID-19 (05/13/24) Subjective Subjective Feeling well. No events overnight. Objective Data Objective Data Vital Signs: Vital Signs Temp Pulse Resp BP Pulse Ox O2 Del Method O2 Flow Rate 35.8 C L 62 22 H 140/62 H 93 Room Air 4 05/16/24 04:01 05/16/24 07:31 05/16/24 07:31 05/16/24 04:01 05/16/24 07:31 05/16/24 07:31 05/16/24 04:01 Oxygen Flow Rate (L/min) 4 Oxygen Delivery Method Room Air Weight: 154.6 kg Body Mass Index (BMI) 46.2 Intake & Output: Intake and Output for Last 24 Hours 05/14/24 05/15/24 05/16/24 23:59 23:59 23:59 Intake Total 1360 / 1360 940 / 940 Output Total 600 / 600 1350 / 1350 1350 / 1350 Balance 760 / 760 -410 / -410 -1350 / -1350 Lab / Micro Data 05/15/24 06:42 05/16/24 06:51 Labs: Laboratory Results - last 24 hr 05/15/24 11:16: POC Glucose 213 H 05/15/24 16:49: POC Glucose 252 H 05/15/24 22:04: POC Glucose 244 H 05/16/24 06:51: Sodium 129 L, Potassium 5.2 H, Chloride 96 L, Carbon Dioxide 26.0, Anion Gap 7, BUN 46 H, Creatinine 1.40 H, Estim Creat Clear Calc 62.37, Est GFR (MDRD) Af Amer 62, Est GFR (MDRD) Non-Af 52 L, BUN/Creatinine Ratio 32.9 H, Glucose 239 H, Calcium 9.8 Micro: Microbiology 05/13/24 10:48 Blood Culture (Wb) - Right Wrist Blood Culture - Preliminary No growth in 48 hours. 05/13/24 22:39 Sputum, Expectorated/Coughed Gram Stain - Final 05/13/24 15:40 Mucosa - Nasopharyngeal Respiratory Panel (PCR) - Final 05/13/24 14:58 Mucosa - Nose Coronavirus COVID-19 PCR - Final SARS-CoV-2 (COVID 19 PCR) 05/13/24 10:38 Urine, Clean Catch Legionella Antigen - Final 05/13/24 10:38 Urine, Clean Catch Streptococcus pneumoniae Antigen (M - Final Radiography Diagnostic Testing: Radiology Impression Venous Doppler Study 05/13/24 13:27 Interpretation Summary Acute deep vein thrombosis is noted in the right posterior tibial vein. Deep veins of the left lower extremity are patent and compressible segmentally. There is no evidence of left lower extremity deep vein thrombosis. The bilateral great saphenous veins appear patent and compressible segmentally Ordering Physician: Drew Jenkins Referring Physician: Bertrand Warner Performed By: Madeline Reich, DESTINEY, RVT Physical Exam Const alert and no apparent distress HEENT head/scalp atraumatic and moist oral mucous membranes Resp normal respiratory effort, no retractions, no use of accessory muscles and clear to auscultation bilaterally Cardio regular rate, regular rhythm, S1 normal heart sound and S2 normal heart sound GI normal to inspection, nondistended, normoactive bowel sounds and soft to palpation Extremity General Extremity: edema bilateral lower extremity Details: moderate Assessment & Plan Assessment/Plan (1) COVID-19: (2) Weakness: (3) MARLA (acute kidney injury): PLAN: Plan COVID-19 infection * COVID-19 positive on admit. * Procalcitonin only 0.21. Chest x-ray concerning for left-sided pneumonia but notably is similar to prior chest x-rays. * Not hypoxic and no significant respiratory symptoms on hospital day 2. Given his blood sugars have been elevated on steroids and patient is not hypoxic, steroids discontinued on 05/14. Infectious workup otherwise negative to this point and have low concern for superimposed bacterial infection, so IV antibiotics also discontinued on 05/14. * Continue with symptomatic treatment at this time. DVT: * acute deep vein thrombosis is noted in the right posterior tibial vein. * hold off anticoagulation. Recheck Type 2 diabetes mellitus with hyperglycemia * uncontrolled. Will increase glargine to 15 BID. MARLA with dehydration, improving * Creatinine 2.26 on admit, baseline creatinine appears to be around 1.0. Creatinine improved to 1.6 on hospital day 2 after IV fluid resuscitation. Presumed prerenal etiology. Given another small fluid bolus on 05/14 but will hold on any further fluids given his history of heart failure as noted below. Follow-up a.m. BMP and monitor urine output. Hyponatremia * Sodium 127 on admit. Chloride 88. Suspected multifactorial from poor p.o. intake and reported increased water intake by patient over the past few days prior to admission. Given IV normal saline fluid resuscitation on admission. Sodium improved to 129 on hospital day 2. Small fluid bolus of normal saline given on 05/14. Will place 2 L fluid restriction on patient while here. Follow-up a.m. sodium level. Acute on chronic debility * PT/OT/case management following. Lives in assisted living and uses 4 wheeled walker at baseline and is apparently independent with ADLs. Unfortunately had very poor therapy scores on 05/14, will need to discuss SNF placement at discharge with case management on Wednesday. Hyperkalemia * DC spironolactone. Chronic medical conditions: * obesity class III: Complicates hospital course, care and prognosis. * HFpEF, CAD s/p CABG and PCI, hypertension: Hospitalized for heart failure exacerbation in May 2023. Dry appearing with borderline low blood pressures on admission. Will hold home empagliflozin, nitrate, losartan, Toprol. Resume diuretics as MARLA resolving. Continue home aspirin, Plavix and statin. * Paroxysmal A-fib: In normal sinus rhythm on admit. Not on anticoagulation at baseline. Continue home Toprol. * COPD/asthma with allergic rhinitis: Not in COPD exacerbation on admit, stable on room air. Continue home inhalers. * BPH with obstructive symptoms: Continue home Flomax. * GERD: Continue home PPI. * Anxiety/depression/insomnia: Continue home BuSpar, mirtazapine and trazodone. DVT prophylaxis: Lovenox twice daily CODE STATUS: Full code, verified Expected disposition: SNF. Medically ready for discharge. Charges/Coding Visit Charges Inpatient E&M: 87565 Subs Hosp L2
[2024-05-16] MEDS: Furosemide 80 MG Tablet PO ×2 (08:45→21:13)
[2024-05-16] MEDS: Aspirin 81 MG TAB.CHEW PO (08:45)
[2024-05-16] MEDS: Ferrous Sulfate 325 MG Tablet PO (08:46)
[2024-05-16] MEDS: Clopidogrel Bisulfate 75 MG Tablet PO (08:46)
[2024-05-16] MEDS: Cholecalciferol (VIT D3) 25 MCG TABLET (1,000 UNITS) 50 MCG PO ×2 (08:46→21:12)
[2024-05-16] MEDS: Vibegron 75 MG TABLET PO (08:46)
[2024-05-16] MEDS: Pantoprazole Sodium 40 MG Tablet PO ×2 (08:46)
[2024-05-16] MEDS: Docusate Sodium 100 MG Capsule PO (08:46)
[2024-05-16] MEDS: Fluticasone 0.05% 1 SPRAY NASAL.SRY 2 SPRAY NASAL (08:48)
[2024-05-16] MEDS: Insulin Glargine-YFGN 100 UNIT/ML Pen 15 UNIT SC ×2 (08:55→21:18)
[2024-05-16 09:19] LABS: Bedside Glucose 212 mg/dL (74-106)
--- NOTE | 2024-05-16 09:22 | CASEMGMT ---
Discharge Planning A list of SNF providers including quality and resource use data and consistent with the patient's preferred geographic region, medical needs, and insurance network was created in [facility] Guide.? This list was provided to the [facility]. Felicia Gutierres Discharge Planning Asst
--- NOTE | 2024-05-16 09:38 | CASEMGMT ---
SW reviewed therapy notes and patient is not doing well. 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 Patient was an assist of 2 people with therapy yesterday. [facility] will not be able to manage patient if he is an assist of 2 people. SW met with patient. Introduced self and role at [facility]. SW explained recommendations to patient and he said he does not want to go to a fdc as he has had a bad experience. SW expressed understanding, but explained [facility] will not be able to take him back if he requires assistance of 2 people. Patient said he can get up and do fine he is just confined to the bed while here. SW told patient we can see how he does with therapy today and go from there. SW did leave a list of SNF's in patient's room. SW to check back with patient after therapy. Stacy Haddad MOVIE STAR SHARAN
--- NOTE | 2024-05-16 09:44 | CASEMGMT ---
Addendum entered by Felicia Gutierres 05/16/24 13:46: Todays therapy notes faxed to [facility]. Fax confirmation rec'd. Felicia Gutierres DC Planning Asst. Original Note: Discharge Planning Updates faxed to [facility], attn; Jessica or Steph. Fax confirmation rec'd. Felicia Gutierres DC Planning Asst.
[2024-05-16 10:13] LABS: Bedside Glucose 246 mg/dL (74-106)
[2024-05-16] MEDS: Acetaminophen 325 MG Tablet 650 MG PO (12:30)
[2024-05-16] MEDS: guaiFENesin/Codeine 5 ML UDC 10 ML PO (12:31)
[2024-05-16 12:41] LABS: Bedside Glucose 294 mg/dL (74-106)
[2024-05-16 17:39] LABS: Bedside Glucose 379 mg/dL (74-106)
[2024-05-16] MEDS: Albuterol 2.5 MG/3 ML VIAL.NEB. INHALATION (20:18)
--- NOTE | 2024-05-16 20:27 | CPS ---
Patient wears 4L oxygen with HS BIPAP use
[2024-05-16] MEDS: Montelukast 10 MG Tablet PO (21:12)
[2024-05-16] MEDS: Mirtazapine 15 MG Tablet PO (21:13)
[2024-05-16] MEDS: traZODone 50 MG Tablet PO (21:13)
[2024-05-16] MEDS: Atorvastatin Calcium 80 MG Tablet PO (21:13)
[2024-05-16] MEDS: Tamsulosin HCl 0.4 MG Capsule PO (21:13)
[2024-05-16] MEDS: Calcium Carb/Vitamin D 1 TABLET Tablet PO (21:14)
[2024-05-16 21:44] LABS: Bedside Glucose 289 mg/dL (74-106)
[2024-05-17 03:16] VITALS: BP 135/68; PULSE 59; RESP 16; TEMP 35.7; O2SAT 96
[2024-05-17 06:00] VITALS: BMI 45.6
[2024-05-17 06:10] LABS: Bedside Glucose 230 mg/dL (74-106)
[2024-05-17] MEDS: Insulin Lispro 100 UNIT/ML INSULN.PEN SC ×2 (07:13→12:05)
[2024-05-17 07:30] VITALS: PULSE 60; RESP 18; O2SAT 97
[2024-05-17] MEDS: Budesonide Respules 0.5 MG/2 ML AMPUL.NEB. INHALATION (07:30)
[2024-05-17] MEDS: Albuterol 2.5 MG/3 ML VIAL.NEB. INHALATION (07:30)
[2024-05-17 09:00] VITALS: BP 120/56; PULSE 62; RESP 16; TEMP 36.4; O2SAT 94
--- NOTE | 2024-05-17 09:13 | PN.HOSP_ITS ---
Reason for Visit Reason for Visit: Diagnoses Acute kidney failure, unspecified (05/13/24) Weakness (05/13/24) COVID-19 (05/13/24) Subjective Subjective Feels well. Did well with therapy yesterday. Objective Data Objective Data Vital Signs: Vital Signs Temp Pulse Resp BP Pulse Ox O2 Del Method O2 Flow Rate 35.7 C L 59 L 16 135/68 H 96 Bi-pap 4 05/17/24 03:16 05/17/24 03:16 05/17/24 03:16 05/17/24 03:16 05/17/24 03:16 05/17/24 03:16 05/16/24 04:01 Oxygen Flow Rate (L/min) 4 Oxygen Delivery Method Bi-pap Weight: 152.6 kg Body Mass Index (BMI) 45.6 Intake & Output: Intake and Output for Last 24 Hours 05/15/24 05/16/24 05/17/24 23:59 23:59 23:59 Intake Total 940 / 940 500 / 500 Output Total 1350 / 1350 5950 / 5950 1200 / 1200 Balance -410 / -410 -5450 / -5450 -1200 / -1200 Lab / Micro Data 05/15/24 06:42 05/16/24 06:51 Labs: Laboratory Results - last 24 hr 05/16/24 06:23: POC Glucose 246 H 05/16/24 08:27: POC Glucose 212 H 05/16/24 12:15: POC Glucose 294 H 05/16/24 16:10: POC Glucose 379 H 05/16/24 21:16: POC Glucose 289 H 05/17/24 05:26: POC Glucose 230 H Micro: Microbiology 05/13/24 22:39 Sputum, Expectorated/Coughed Gram Stain - Final 05/13/24 22:39 Sputum, Expectorated/Coughed Respiratory Culture - Preliminary Serratia marcescens 05/13/24 10:48 Blood Culture (Wb) - Right Wrist Blood Culture - Preliminary No growth in 48 hours. 05/13/24 15:40 Mucosa - Nasopharyngeal Respiratory Panel (PCR) - Final 05/13/24 14:58 Mucosa - Nose Coronavirus COVID-19 PCR - Final SARS-CoV-2 (COVID 19 PCR) 05/13/24 10:38 Urine, Clean Catch Legionella Antigen - Final 05/13/24 10:38 Urine, Clean Catch Streptococcus pneumoniae Antigen (M - Final Physical Exam Const alert and no apparent distress HEENT head/scalp atraumatic and moist oral mucous membranes Resp normal respiratory effort, no retractions, no use of accessory muscles and clear to auscultation bilaterally Cardio regular rate, regular rhythm, S1 normal heart sound and S2 normal heart sound GI normal to inspection, nondistended, normoactive bowel sounds, soft to palpation, non-tender and non-distended Neuro Sensorium / Orientation: awake and alert Assessment & Plan Assessment/Plan (1) COVID-19: (2) Weakness: (3) MARLA (acute kidney injury): PLAN: Plan COVID-19 infection * COVID-19 positive on admit. * Procalcitonin only 0.21. Chest x-ray concerning for left-sided pneumonia but notably is similar to prior chest x-rays. * Not hypoxic and no significant respiratory symptoms on hospital day 2. Given his blood sugars have been elevated on steroids and patient is not hypoxic, steroids discontinued on 05/14. Infectious workup otherwise negative to this point and have low concern for superimposed bacterial infection, so IV antibiotics also discontinued on 05/14. * Continue with symptomatic treatment at this time. DVT: * acute deep vein thrombosis is noted in the right posterior tibial vein. * hold off anticoagulation. Recheck in 2 and 4 weeks. If no evidence of propagation, no additional workup and no treatment, however, if propagation is noted then would recommend starting on anticoagulation with apixaban. Type 2 diabetes mellitus with hyperglycemia * uncontrolled. Will increase glargine to 15 BID. MARLA with dehydration, improving * Creatinine 2.26 on admit, baseline creatinine appears to be around 1.0. Creatinine improved to 1.6 on hospital day 2 after IV fluid resuscitation. Presumed prerenal etiology. Given another small fluid bolus on 05/14 but will hold on any further fluids given his history of heart failure as noted below. Follow-up a.m. BMP and monitor urine output. Hyponatremia * Sodium 127 on admit. Chloride 88. Suspected multifactorial from poor p.o. intake and reported increased water intake by patient over the past few days prior to admission. Given IV normal saline fluid resuscitation on admission. Sodium improved to 129 on hospital day 2. Small fluid bolus of normal saline given on 05/14. Will place 2 L fluid restriction on patient while here. Follow-up a.m. sodium level. Acute on chronic debility * PT/OT/case management following. Did well with therapy previously and will be discharged to his assisted living with home health care. Hyperkalemia * DC spironolactone. Chronic medical conditions: * obesity class III: Complicates hospital course, care and prognosis. * HFpEF, CAD s/p CABG and PCI, hypertension: Hospitalized for heart failure exacerbation in May 2023. Dry appearing with borderline low blood pressures on admission. Will hold home empagliflozin, nitrate, losartan, Toprol. Resume diuretics as MARLA resolving. Continue home aspirin, Plavix and statin. * Paroxysmal A-fib: In normal sinus rhythm on admit. Not on anticoagulation at baseline. Continue home Toprol. * COPD/asthma with allergic rhinitis: Not in COPD exacerbation on admit, stable on room air. Continue home inhalers. * BPH with obstructive symptoms: Continue home Flomax. * GERD: Continue home PPI. * Anxiety/depression/insomnia: Continue home BuSpar, mirtazapine and trazodone. DVT prophylaxis: Lovenox twice daily CODE STATUS: Full code, verified Discharge back to his assisted living with home health care.
--- NOTE | 2024-05-17 09:37 | CASEMGMT ---
BREEZY called [facility] and let them know patient will be returning today. BREEZY put in order for Home Health PT/OT. [facility] sets this up on their own. BREEZY will talk with patient and verify if he needs transport back to [facility]. Plan: d/c back to [facility]. Stacy TSANG
[2024-05-17] MEDS: Cholecalciferol (VIT D3) 25 MCG TABLET (1,000 UNITS) 50 MCG PO (09:45)
[2024-05-17] MEDS: Pantoprazole Sodium 40 MG Tablet PO (09:46)
[2024-05-17] MEDS: Fluticasone 0.05% 1 SPRAY NASAL.SRY 2 SPRAY NASAL (09:46)
[2024-05-17] MEDS: Ferrous Sulfate 325 MG Tablet PO (09:46)
[2024-05-17] MEDS: Aspirin 81 MG TAB.CHEW PO (09:46)
[2024-05-17] MEDS: Furosemide 80 MG Tablet PO (09:46)
[2024-05-17] MEDS: Calcium Carb/Vitamin D 1 TABLET Tablet PO (09:46)
[2024-05-17] MEDS: Vibegron 75 MG TABLET PO (09:46)
[2024-05-17] MEDS: Docusate Sodium 100 MG Capsule PO (09:46)
[2024-05-17] MEDS: Clopidogrel Bisulfate 75 MG Tablet PO (09:46)
[2024-05-17] MEDS: Insulin Glargine-YFGN 100 UNIT/ML Pen 15 UNIT SC (09:47)
[2024-05-17] MEDS: Acetaminophen 325 MG Tablet 650 MG PO (09:57)
[2024-05-17] MEDS: guaiFENesin/Codeine 5 ML UDC 10 ML PO (10:05)
--- NOTE | 2024-05-17 10:08 | CASEMGMT ---
SW spoke with patient. Patient did much better with therapy yesterday so it appears returning to [facility] is appropriate. SW did put in order for home health PT/OT. Patient stated he uses [facility] and he will need a ride back to [facility]. Await d/c orders. Stacy Haddad REGISTERED DENTAL ASSISTANT RDA SHARAN
--- NOTE | 2024-05-17 10:51 | DS.PCM_ITS ---
Providers Date of Admission: 05/13/24 Primary Care Physician: Dr. Bertarnd Warner MD Reason For Visit: CHF EXACERBATION Diagnosis Discharge Diagnosis (1) COVID-19: Status: Acute Code(s): U07.1 - COVID-19 (2) Weakness: Status: Acute Code(s): R53.1 - Weakness (3) MARLA (acute kidney injury): Status: Acute Code(s): N17.9 - Acute kidney failure, unspecified Plan COVID-19 infection * COVID-19 positive on admit. * Procalcitonin only 0.21. Chest x-ray concerning for left-sided pneumonia but notably is similar to prior chest x-rays. * Not hypoxic and no significant respiratory symptoms on hospital day 2. Given his blood sugars have been elevated on steroids and patient is not hypoxic, steroids discontinued on 05/14. Infectious workup otherwise negative to this point and have low concern for superimposed bacterial infection, so IV antibiotics also discontinued on 05/14. * Continue with symptomatic treatment at this time. DVT: * acute deep vein thrombosis is noted in the right posterior tibial vein. * hold off anticoagulation. Recheck in 2 and 4 weeks. If no evidence of propagation, no additional workup and no treatment, however, if propagation is noted then would recommend starting on anticoagulation with apixaban. Type 2 diabetes mellitus with hyperglycemia * uncontrolled. Will increase glargine to 15 BID. MARLA with dehydration, improving * Creatinine 2.26 on admit, baseline creatinine appears to be around 1.0. Creatinine improved to 1.6 on hospital day 2 after IV fluid resuscitation. Presumed prerenal etiology. Given another small fluid bolus on 05/14 but will hold on any further fluids given his history of heart failure as noted below. Follow-up a.m. BMP and monitor urine output. Hyponatremia * Sodium 127 on admit. Chloride 88. Suspected multifactorial from poor p.o. intake and reported increased water intake by patient over the past few days prior to admission. Given IV normal saline fluid resuscitation on admission. Sodium improved to 129 on hospital day 2. Small fluid bolus of normal saline given on 05/14. Will place 2 L fluid restriction on patient while here. Follow-up a.m. sodium level. Acute on chronic debility * PT/OT/case management following. Did well with therapy previously and will be discharged to his assisted living with home health care. Hyperkalemia * DC spironolactone. Chronic medical conditions: * obesity class III: Complicates hospital course, care and prognosis. * HFpEF, CAD s/p CABG and PCI, hypertension: Hospitalized for heart failure exacerbation in May 2023. Dry appearing with borderline low blood pressures on admission. Will hold home empagliflozin, nitrate, losartan, Toprol. Resume diuretics as MARLA resolving. Continue home aspirin, Plavix and statin. * Paroxysmal A-fib: In normal sinus rhythm on admit. Not on anticoagulation at baseline. Continue home Toprol. * COPD/asthma with allergic rhinitis: Not in COPD exacerbation on admit, stable on room air. Continue home inhalers. * BPH with obstructive symptoms: Continue home Flomax. * GERD: Continue home PPI. * Anxiety/depression/insomnia: Continue home BuSpar, mirtazapine and trazodone. DVT prophylaxis: Lovenox twice daily CODE STATUS: Full code, verified Discharge back to his assisted living with home health care. Medications at Discharge Home Medications aspirin 81 mg chewable tablet 81 mg PO DAILY HEALTH MAINTENANCE 06/09/13 magnesium oxide 400 mg (241.3 mg magnesium) tablet 400 mg PO DAILY MAGNESIUM 10/07/15 atorvastatin 80 mg tablet 80 mg PO QHS HLD 08/05/18 cholecalciferol (vitamin D3) 50 mcg (2,000 unit) capsule 2,000 unit PO BID SUPPLEMENT 11/24/19 fluticasone propionate 50 mcg/actuation nasal spray,suspension 2 spray NASAL DAILY ALLERGIES 11/24/19 montelukast 10 mg tablet 10 mg PO QHS ALLERGIES 11/24/19 glimepiride 4 mg tablet 4 mg PO BREAKFAST DM 01/09/21 mirtazapine 15 mg tablet 15 mg PO QHS mental health 01/09/21 tamsulosin 0.4 mg capsule 0.4 mg PO QHS prostate 01/09/21 docusate sodium 100 mg capsule 100 mg PO DAILY stool softner 07/15/21 clopidogrel 75 mg tablet 75 mg PO DAILY prevent clots #30 tabs 11/17/22 fluticasone furoate 200 mcg-vilanterol 25 mcg/dose inhalation powder (Breo Ellipta) 1 inh inhalation DAILY Check with primary doctor 11/17/22 isosorbide mononitrate 30 mg tablet,extended release 24 hr 30 mg PO DAILY bp, heart #30 tabs 11/17/22 metoprolol succinate 25 mg tablet,extended release 24 hr 25 mg PO DAILY Check with primary doctor 11/17/22 calcium carbonate 600 mg-vitamin D3 5 mcg (200 unit) tablet (Calcium 600 + D(3)) 1 tab PO BID supplement 06/09/23 pantoprazole 40 mg tablet,delayed release 40 mg PO DAILY GERD 06/09/23 acetaminophen 325 mg tablet 650 mg (2 x 325 mg) PO Q6H PRN PRN Pain 1-10 Or Fever>100.7 #0 tabs 06/25/23 plecanatide 3 mg tablet (Trulance) 3 mg PO DAILY chronic constipation 30 days #30 tabs 06/28/23 buspirone 15 mg tablet 15 mg PO TID mood 10/25/23 mirabegron 50 mg tablet,extended release 24 hr (Myrbetriq) 50 mg PO DAILY . 12/07/23 sucralfate 1 gram tablet 1 g PO BID ulcers #60 tabs 01/07/24 psyllium husk (aspartame) 3 gram oral powder packet (Daily Fiber (psyllium- aspartame)) 1 packet PO DAILY PRN PRN Constipation #0 ea 01/08/24 torsemide 40 mg tablet 40 mg PO BID CHF 1 month #60 tabs 01/08/24 calcium polycarbophil 625 mg tablet (Fiber-Lax) 625 mg PO BID laxat 03/02/24 empagliflozin 10 mg tablet (Jardiance) 10 mg PO DAILY DM 03/02/24 ferrous fumarate 325 mg (106 mg iron) tablet 325 mg PO BID supplement 04/18/24 loperamide 2 mg tablet (Imodium A-D) 2 mg PO Q4H PRN diarrhea 04/18/24 buspirone 20 mg .ROUTE TID anxiety 05/13/24 omega-3 fatty acids-fish oil 300 mg-1,000 mg capsule 1 cap PO DAILY supplement 05/13/24 trazodone 50 mg tablet 50 mg PO DAILY insomnia 05/13/24 insulin glargine-yfgn 100 unit/mL (3 mL) subcutaneous pen 15 unit (0.15 mL) subcut BID #15 mL 05/17/24 pen needle, diabetic 29 gauge #100 ea 05/17/24 Hospital Course Operations None Procedures None Summary of Care Provided Minutes Spent on Discharge: 36 Hospital Course: Patient presents with fatigue and weakness. Patient was found to have COVID-19 as well as acute kidney injury. Patient's diuretics were held and did receive IV fluids. Steroids were attempted but he did have severe hyperglycemia and given his MARLA was not a candidate for remdesivir. Patient responded well with IV fluids but patient does have lower extremity edema and has been subsequently restarted back on his diuretics with the exception of spironolactone as he has hyperkalemia. Patient was noted to have a right tibial vein DVT. I am electing not to treat that but rather monitor that with serial ultrasounds in 2 to 4 weeks on if no evidence of any propagation then no additional workup or treatment will be necessary. Patient was initially weak but overall is doing well and will be able to return to his assisted living with home health care. Weight / BMI Weight Weight: 152.6 kg Body Mass Index (BMI) 45.6 ABG / Lab / Microbiology Data 05/15/24 06:42 05/16/24 06:51 Laboratory: Laboratory Results - last 24 hr 05/16/24 12:15: POC Glucose 294 H 05/16/24 16:10: POC Glucose 379 H 05/16/24 21:16: POC Glucose 289 H 05/17/24 05:26: POC Glucose 230 H Microbiology: Microbiology 05/13/24 22:39 Sputum, Expectorated/Coughed Gram Stain - Final 05/13/24 22:39 Sputum, Expectorated/Coughed Respiratory Culture - Preliminary Serratia marcescens 05/13/24 10:48 Blood Culture (Wb) - Right Wrist Blood Culture - Preliminary No growth in 48 hours. 05/13/24 15:40 Mucosa - Nasopharyngeal Respiratory Panel (PCR) - Final 05/13/24 14:58 Mucosa - Nose Coronavirus COVID-19 PCR - Final SARS-CoV-2 (COVID 19 PCR) 05/13/24 10:38 Urine, Clean Catch Legionella Antigen - Final 05/13/24 10:38 Urine, Clean Catch Streptococcus pneumoniae Antigen (M - Final D/C Instructions Discharge Diet: 2000 Calorie Control Diet Meaningful Use Info Meaningful Use Meaningful Use Diagnoses (Choose all that apply): None applicable Ischemic Stroke Statin Dosing Therapy Reference: STATIN DOSE THERAPY REFERENCE: * Patients > 75 years receive moderate or high dose statin therapy. * Patients 75 years or YOUNGER should receive HIGH intensity statin dose unless contraindicated. You will be required to document reason for non-treatment if statin daily dose does not meet guidelines. HIGH DOSE STATIN THERAPY DAILY Atorvastatin > than or = to 40 mg Rosuvastatin > than or = to 20 mg Amlodipine + Atorvastatin > than or = to 2.5/40 mg Ezetimibe + Simvastatin 10/80 mg Simvastatin 80mg Discharge Plan Admission Admit Date/Time: 05/13/24 10:47 Primary Reason for Your Visit: MARLA Attending Provider: Daquan Mckeon Primary Care Provider: Bertrand Warner Consulting Providers: Drew Jenkins Instructions Additional Instructions / Restrictions: You have a DVT (blood clot) on your right leg. It is below the knee so has like likely chance to going to your lungs. Though you should have ultrasounds in about 2 and 4 weeks to make sure that it is not moving upwards. If it is stable, not moving, then no additional treatment or workup would be necessary. However, if it is extending to your knee or beyond, you will need to be put on blood thinners at that time. For your COVID, you will need to quarantine through the and then wear a mask from the through 24 May. If your facility has a policy that says you need to do 10 days of quarantine then that quarantine will on 24 May. Discharge Orders/Prescriptions Prescriptions: New insulin glargine-yfgn 100 unit/mL (3 mL) Insulin Pen 15 unit subcut BID Qty: 15 0RF (DME) pen needle, diabetic 29 gauge needle See Rx Instructions .Route Qty: 100 0RF Rx Instructions: As directed Continued buspirone 15 mg tablet 15 mg PO TID loperamide [Imodium A-D] 2 mg tablet 2 mg PO Q4H PRN (Reason: diarrhea) Rx Instructions: administer after each loose stool until symptoms controlled; do not exceed 16 mg per 24 hrs ferrous fumarate 325 mg (106 mg iron) tablet 325 mg PO BID aspirin 81 MG tablet,chewable 81 mg PO DAILY Patient Comments: HEART HEALTH magnesium oxide 400 MG tablet 400 mg PO DAILY Patient Comments: MAGNESIUM SUPPLEMENT atorvastatin 80 MG tablet 80 mg PO QHS montelukast 10 MG tablet 10 mg PO QHS fluticasone propionate 1 SPRAY spray,suspension 2 spray NASAL DAILY cholecalciferol (vitamin D3) 2,000 UNIT capsule 2,000 unit PO BID tamsulosin 0.4 mg Capsule 0.4 mg PO QHS mirtazapine 15 mg Tablet 15 mg PO QHS glimepiride 4 mg Tablet 4 mg PO BREAKFAST docusate sodium 100 MG capsule 100 mg PO DAILY clopidogrel 75 mg Tablet 75 mg PO DAILY Qty: 30 0RF isosorbide mononitrate 30 mg Tablet Extended Release 24 Hr 30 mg PO DAILY Qty: 30 0RF fluticasone furoate-vilanterol [Breo Ellipta] 200-25 mcg/dose blister with device 1 inh INHALATION DAILY metoprolol succinate 25 mg tablet extended release 24 hr 25 mg PO DAILY Rx Instructions: HOLD hr <55 HOLD SYSTOLIC <95 calcium carbonate-vitamin D3 [Calcium 600 + D(3)] 600 mg-5 mcg (200 unit) tablet 1 tab PO BID pantoprazole 40 mg tablet,delayed release (DR/EC) 40 mg PO DAILY acetaminophen 325 mg Tablet 650 mg PO Q6H PRN PRN (Reason: Pain 1-10 Or Fever>100.7) Qty: 0 0RF mirabegron [Myrbetriq] 50 mg tablet extended release 24 hr 50 mg PO DAILY Daily Fiber (psyllium-aspart) 3 gram Powder In Packet 1 packet PO DAILY PRN PRN (Reason: Constipation) Qty: 0 0RF torsemide 40 mg tablet 40 mg PO BID 30 Days Qty: 60 1RF Rx Instructions: Hold for MARLA calcium polycarbophil [Fiber-Lax] 625 mg tablet 625 mg PO BID Jardiance 10 mg tablet 10 mg PO DAILY omega-3 fatty acids-fish oil 300-1,000 mg capsule 1 cap PO DAILY buspirone [BuSpar] 20 mg .ROUTE TID trazodone 50 mg tablet 50 mg PO DAILY Trulance 3 mg tablet 3 mg PO DAILY 30 Days Qty: 30 6RF sucralfate 1 gram tablet 1 g PO BID Qty: 60 0RF Discontinued losartan 25 mg tablet 25 mg PO QHS Rx Instructions: HOLD IF SYSTOLIC <100 metformin 1,000 mg tablet 1,000 mg PO BID spironolactone 50 mg Tablet 50 mg PO DAILY Qty: 0 0RF Januvia 100 mg tablet 100 mg PO DAILY Other Ambulatory Orders: Glucometer (Routine) Timeframe: 1 Day Location: Determined by Patient Ordered By: Dr. Daquan Mckeon Referrals / Follow Up: Bertrand Warner MD [Primary Care Provider] - Within 2 Weeks Disposition Disposition (needs filled in before D/C Order can be placed): Home Health Service Charges/Coding Visit Charges Inpatient E&M: 21892 Disch Hosp >30min
--- NOTE | 2024-05-17 11:54 | CASEMGMT ---
Patient is discharged back to [facility] with order for home PT/OT. Stacy TSANG
--- NOTE | 2024-05-17 12:24 | CASEMGMT ---
Discharge Planning Discharge orders, signed med list, and transport time faxed to [facility]. Physicians will transport patient by wheelchair at 1p. Nursing, SW, patient, and his brother (Freddie) updated. Felicia Gutierres DC Planning Asst.
[2024-05-17 12:33] LABS: Bedside Glucose 306 mg/dL (74-106)
== END 2024-05-17 13:23 | disposition home health service (06) | DRG 178 ==
LOC: ED 10:53 → PCU 10:59
PROVIDERS: Admitting Provider Hospitalist; Emergency Provider Emergency Medicine; PCP Family Medicine
DX: U07.1 COVID-19 (principal); N17.9 Acute kidney failure, unspecified; I13.0 Hypertensive heart and chronic kidney disease with heart failure and stage 1 through stage 4 chronic kidney disease, or unspecified chronic kidney disease; E87.1 Hypo-osmolality and hyponatremia; I50.32 Chronic diastolic (congestive) heart failure; Z68.42 Body mass index [BMI] 45.0-49.9, adult; I82.491 Acute embolism and thrombosis of other specified deep vein of right lower extremity; N13.8 Other obstructive and reflux uropathy; E11.22 Type 2 diabetes mellitus with diabetic chronic kidney disease; F32.A Depression, unspecified; I48.0 Paroxysmal atrial fibrillation; E11.65 Type 2 diabetes mellitus with hyperglycemia; I87.8 Other specified disorders of veins; E78.5 Hyperlipidemia, unspecified; I25.10 Atherosclerotic heart disease of native coronary artery without angina pectoris; E66.01 Morbid (severe) obesity due to excess calories; F41.9 Anxiety disorder, unspecified; K21.9 Gastro-esophageal reflux disease without esophagitis; N18.2 Chronic kidney disease, stage 2 (mild); E87.5 Hyperkalemia; Z86.16 Personal history of COVID-19; Z95.5 Presence of coronary angioplasty implant and graft; Z79.02 Long term (current) use of antithrombotics/antiplatelets; Z79.82 Long term (current) use of aspirin; Z79.84 Long term (current) use of oral hypoglycemic drugs; N40.1 Benign prostatic hyperplasia with lower urinary tract symptoms; G47.00 Insomnia, unspecified; Z95.1 Presence of aortocoronary bypass graft; Z90.49 Acquired absence of other specified parts of digestive tract; Z95.0 Presence of cardiac pacemaker
CPT/HCPCS: 36415; 71045; 73590; 73600; 73620; 80048; 81001; 82570; 82962; 83036; 83880; 83930; 83935; 84145; 84300; 84484; 85025; 85027; 85379; 87040; 87070; 87077; 87186; 87205; 87449; 87633; 87635; 90662; 93005; 93970; 94002; 94003; 94640; 94668; 97162; 97166; 97530; 97535; 99285; J7030; J7040; A4216

== ENCOUNTER 2024-06-04 07:00 | Emergency (ER) | payer MEDICARE, MEDICAID, SELFPAY ==
[2024-06-04 07:02] VITALS: BP 147/67; PULSE 65; RESP 18; TEMP 36.4; O2SAT 96; BMI 45.8
--- NOTE | 2024-06-04 07:19 | ED.VIS.FALL ---
HPI HPI - Fall History of Present Illness Chief Complaint: Fall Informant: patient Occured/Mechanism Occurred: Today Mechanism/Context: Yes same level fall and Yes slip Pain/Injury Pain Location: face, upper extremity (Right wrist) and lower extremity (Left tibia and fibula and left hip) Quality of Pain: - (Stinging) Worsened by: Nothing Relieved by: Nothing Associated Symptoms Associated Symptoms: Positive for Loss of consciousness (Questionable); Negative for Parasthesias, Weakness or Loss of function Length of loss of consciousness: Possibly approximately 2 minutes Narrative Narrative: Patient presents after a fall that occurred today. Patient states he slipped and fell in his bathroom. Patient states he hit his chin on the sink. Patient hit his leg on the cabinet. Patient states he was wedged between the cabinet and the toilet. Patient states EMS had to help him out. Patient states he had difficulty ambulating after the fall. Patient thinks he may have gotten knocked out for approximately 1 to 2 minutes. Patient denies any paresthesias or weakness. Patient states his last tetanus was less than 5 years ago. Patient admits to some pain over his right wrist, left hip, and left tibia and fibula. Tetanus Immunization: <5 years [facility] Medical History Constipation Ulcer of left lower extremity with fat layer exposed DM2 (diabetes mellitus, type 2) Wound of right lower extremity History of echocardiogram Lives in assisted living facility Walker as ambulation aid Arthritis Dietary restriction On home oxygen therapy Anxiety Depression CKD (chronic kidney disease), stage II Esophageal stricture Wears glasses Cancer Pancreatic abnormality Thyroid disease Shortness of breath on exertion Cardiology follow-up encounter Dysphagia GERD (gastroesophageal reflux disease) Atrial fibrillation Congestive heart failure (CHF) Diabetes Non-smoker BiPAP (biphasic positive airway pressure) dependence Asthma COPD (chronic obstructive pulmonary disease) Hyperlipemia Pacemaker Hypertension Ulcer of right lower extremity with fat layer exposed Chest pain Fall Paroxysmal atrial fibrillation Complete heart block 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 Atherosclerosis of coronary artery of [place] heart without angina pectoris Junctional escape rhythm Chronic venous insufficiency Swelling of lower extremity Edema of both legs Morbid obesity Prostate cancer Venous stasis dermatitis of both lower extremities Cholecystitis CHF (congestive heart failure) Ileus following gastrointestinal surgery Obstructive sleep apnea HLD (hyperlipidemia) Benign essential HTN Home Medications ?Medication ?Instructions ?Recorded ?Last Taken ?Type aspirin 81 mg chewable tablet 81 mg PO DAILY HEALTH MAINTENANCE 06/09/13 05/12/24 History magnesium oxide 400 mg (241.3 mg 400 mg PO DAILY MAGNESIUM 10/07/15 05/12/24 History magnesium) tablet atorvastatin 80 mg tablet 80 mg PO QHS HLD 08/05/18 05/12/24 History cholecalciferol (vitamin D3) 50 2,000 unit PO BID SUPPLEMENT 11/24/19 05/12/24 History mcg (2,000 unit) capsule fluticasone propionate 50 2 spray NASAL DAILY ALLERGIES 11/24/19 05/12/24 History mcg/actuation nasal spray,suspension montelukast 10 mg tablet 10 mg PO QHS ALLERGIES 11/24/19 05/12/24 History glimepiride 4 mg tablet 4 mg PO BREAKFAST DM 01/09/21 05/12/24 History mirtazapine 15 mg tablet 15 mg PO QHS mental health 01/09/21 05/12/24 History tamsulosin 0.4 mg capsule 0.4 mg PO QHS prostate 01/09/21 05/12/24 History docusate sodium 100 mg capsule 100 mg PO DAILY stool softner 07/15/21 05/12/24 History clopidogrel 75 mg tablet 75 mg PO DAILY prevent clots #30 11/17/22 05/12/24 Rx tabs fluticasone furoate 200 1 inh inhalation DAILY Check with 11/17/22 05/12/24 History mcg-vilanterol 25 mcg/dose primary doctor inhalation powder (Breo Ellipta) isosorbide mononitrate 30 mg 30 mg PO DAILY bp, heart #30 tabs 11/17/22 05/12/24 Rx tablet,extended release 24 hr metoprolol succinate 25 mg 25 mg PO DAILY Check with primary 11/17/22 05/12/24 History tablet,extended release 24 hr doctor calcium 600 mg (as 1 tab PO BID supplement 06/09/23 05/12/24 History carbonate)-vitamin D3 5 mcg (200 unit) tablet (Calcium 600 + D(3)) pantoprazole 40 mg tablet,delayed 40 mg PO DAILY GERD 06/09/23 05/12/24 History release acetaminophen 325 mg tablet 650 mg (2 x 325 mg) PO Q6H PRN PRN 06/25/23 Unknown Rx Pain 1-10 Or Fever>100.7 #0 tabs plecanatide 3 mg tablet (Trulance) 3 mg PO DAILY chronic constipation 06/28/23 05/12/24 Rx 30 days #30 tabs buspirone 15 mg tablet 15 mg PO TID mood 10/25/23 05/12/24 History mirabegron 50 mg tablet,extended 50 mg PO DAILY . 12/07/23 05/12/24 History release 24 hr (Myrbetriq) sucralfate 1 gram tablet 1 g PO BID ulcers #60 tabs 01/07/24 05/12/24 Rx psyllium husk (aspartame) 3 gram 1 packet PO DAILY PRN PRN 01/08/24 Unknown Rx oral powder packet (Daily Fiber Constipation #0 ea (psyllium-aspartame)) torsemide 40 mg tablet 40 mg PO BID CHF 1 month #60 tabs 01/08/24 05/12/24 Rx calcium polycarbophil 625 mg 625 mg PO BID laxat 03/02/24 05/12/24 History tablet (Fiber-Lax) empagliflozin 10 mg tablet 10 mg PO DAILY DM 03/02/24 05/12/24 History (Jardiance) ferrous fumarate 325 mg (106 mg 325 mg PO BID supplement 04/18/24 05/12/24 History iron) tablet loperamide 2 mg tablet (Imodium 2 mg PO Q4H PRN diarrhea 04/18/24 Unknown History A-D) buspirone 20 mg .ROUTE TID anxiety 05/13/24 05/12/24 History omega-3 fatty acids-fish oil 300 1 cap PO DAILY supplement 05/13/24 05/12/24 History mg-1,000 mg capsule trazodone 50 mg tablet 50 mg PO DAILY insomnia 05/13/24 05/12/24 History insulin glargine-yfgn 100 unit/mL 15 unit (0.15 mL) subcut BID #15 mL 05/17/24 Unknown Rx (3 mL) subcutaneous pen pen needle, diabetic 29 gauge #100 ea 05/17/24 Unknown Rx Allergy/AdvReac Type Severity Reaction Status Date / Time lisinopril Allergy Unknown Verified 06/04/24 07:05 paroxetine (From Paxil) Allergy NEEDS Verified 06/04/24 07:05 FOLLOW-UP sertraline Allergy Unknown Verified 06/04/24 07:05 enoxaparin (From Lovenox) AdvReac PT UNSURE Verified 06/04/24 07:05 OF REACTION Family History Mother Lung cancer Father CAD (coronary artery disease) Hypertension Heart disease Myocardial infarction Brother Myocardial infarction Hypertension Heart disease CAD (coronary artery disease) Surgical History History of cardiac catheterization History of appendectomy History of coronary artery stent placement S/P CABG x 2 Coronary angioplasty status History of bilateral hip arthroplasty History of cholecystectomy Hx of CABG H/O coronary artery bypass surgery Presence of cardiac pacemaker Status post cholecystectomy Social History household members: none housing: assisted living facility number of children: 0 current occupational status: retired Smoking Status: Never smoker alcohol intake: never substance use type: does not use ROS ROS ED Constitutional Constitutional ED: Denies chills or fever(s) Eyes Eyes: Denies blurry vision or change in vision ENT ENT ED: Denies rhinorrhea or sore throat Cardiovascular Cardiovascular: Denies chest pain or palpitations Respiratory/Chest Respiratory/Chest: Denies cough or dyspnea Gastrointestinal Gastrointestinal: Denies nausea or vomiting Genitourinary Genitourinary ED: Reports urinary frequency; Denies dysuria or hematuria Musculoskeletal Musculoskeletal: Reports back pain; Denies neck pain Integumentary Denies abscess or rash Neurologic Neurologic: Denies headache(s) or weakness Allergic/Immunologic Allergic/Immunologic ED: Denies mouth swelling or urticaria EXAM Physical Exam Const Vital Signs: 06/04/24 07:02 06/04/24 09:04 06/04/24 09:06 Temperature 97.6 F L Temperature Source Oral Pulse Rate 65 72 Respiratory Rate 18 16 Respiratory Effort Normal Non-Labored Respiratory Depth Normal Respiratory Pattern Normal Blood Pressure 147/67 H 143/85 H Blood Pressure Mean 93 104 Pulse Ox 96 96 97 Oxygen Delivery Method Room Air Room Air Room Air Positive well nourished and well developed General Appearance ED: well developed and NAD HEENT Reports normocephalic HEENT Narrative: There is an abrasion over the right anterior chin. There is no active bleeding noted. There is some dried blood noted over the area. There is no full-thickness laceration. There is no bony crepitance or step-off noted. There is good range of motion of the mandible. Neck full ROM and supple Chest Wall palpation of chest normal Resp normal respiratory effort and clear to auscultation bilaterally Cardio regular rate and regular rhythm GI non-tender and non-distended Palpation: soft Back/Spine Cervical Spine: Negative for cervical spine tenderness Extremity Extremity Narrative: There is tenderness over the right wrist. There is mild edema. There is no ecchymosis. There is no deformity noted. Range of motion was slightly limited in all motions of the right wrist secondary to pain. There is tenderness over the lateral aspect of the left hip and femur. There is no deformity. There is no bony crepitance or step-off. There is no pain with internal or external rotation. There is mild tenderness over the anterior aspect of the left lower leg. There is no deformity noted. There is good range of motion of the ankle. Radial and pedal pulses are equal bilaterally. Strength is 5/5 bilaterally in lower extremities. There are no sensory deficits noted. Neuro oriented x3, CN's II-XII intact bilaterally, moves all extremities, no focal motor deficits and no sensory deficits noted Taras Coma Scale: document GCS findings Spontaneous Obeys Commands Oriented 15 Sensorium / Orientation: alert Motor Exam: strength 5/5 throughout Psych mental status grossly normal Skin Skin Narrative: There is a superficial skin tear of the anterior aspect of the left tibia. There is mild bleeding. There is minimal gapping of the wound margins. There are no foreign bodies visualized. There is no bony crepitance or step-off noted. MDM MDM MDM Narrative Medical decision making narrative: Differential diagnosis includes intracranial bleeding, closed head injury, right wrist fracture, left hip periprosthetic fracture, left tibia fracture, contusion, and urinary tract infection. CT scan of the brain will be obtained to assess for intracranial bleeding. X-rays of the right wrist will be obtained to assess for fracture and dislocation. X-rays of the left hip will be obtained to assess for fracture. X-rays of the left tibia and fibula will be obtained to assess for fracture. CBC will be obtained to assess for leukocytosis and anemia. Basic metabolic profile will be obtained to assess for electrolyte abnormality and renal function. Urinalysis will be obtained to assess for urinary tract infection and hematuria. Lab Data Attestation: I reviewed the patient's lab results. Lab results narrative: CBC was reviewed and was within normal limits. Basic metabolic profile was reviewed and was within normal limits with the exception of an elevated glucose of 194. Labs: Laboratory Results - last 24 hr 06/04/24 06/04/24 07:40 08:50 WBC 8.2 RBC 5.23 Hgb 14.9 Hct 47.1 MCV 90.1 MCH 28.5 MCHC 31.6 L RDW Std Deviation 64.4 H RDW Coeff of Yue 20.3 H Plt Count 209 MPV 9.0 Immature Gran % (Auto) 0.500 Neut % (Auto) 72.7 H Lymph % (Auto) 13.0 L Ritchie % (Auto) 9.8 Eos % (Auto) 3.4 Baso % (Auto) 0.6 Absolute Neuts (auto) 5.9 Absolute Lymphs (auto) 1.06 Nucleated RBC % 0 Anisocytosis 1+ Sodium 140 Potassium 3.6 Chloride 100 Carbon Dioxide 34.0 H Anion Gap 6 BUN 26 H Creatinine 1.29 Estim Creat Clear Calc 67.42 Est GFR (MDRD) Af Amer 69 Est GFR (MDRD) Non-Af 57 L BUN/Creatinine Ratio 20.2 H Glucose 194 H Calcium 9.6 Urine Color Yellow Urine Clarity Clear Urine pH 6.5 Ur Specific [place] 1.010 Urine Protein 15 H Urine Glucose (UA) 1000 H Urine Ketones Negative Urine Occult Blood Negative Urine Nitrite Negative Urine Bilirubin Negative Urine Urobilinogen Normal Ur Leukocyte Esterase Negative Urine RBC 0 SEEN Urine WBC 0 SEEN Ur Squamous Epith Cells 0-5 SEEN Urine Bacteria 0 SEEN Urine Mucus 0 SEEN Radiography Diagnostic Testing: Clinical Impression(s) from Imaging Studies Brain CT 06/04/24 07:32 IMPRESSION: Chronic involutional changes of the brain. Electronically Signed: Won Jain MD at 8:52 EDT , Hip/Pelvis X-Ray 06/04/24 07:32 IMPRESSION: Normal x-ray examination of the pelvis and hip after total hip arthroplasty. Electronically Signed: Won Jain MD at 8:54 EDT Reading Location ID and State: [id number] / [employer] , Service support , Tibia/Fibula X-Ray 06/04/24 07:32 IMPRESSION: Normal x-ray examination of the tibia and fibula. Electronically Signed: Won Jain MD at 8:55 EDT Reading Location ID and State: [id number] / [employer] , Service support , Wrist X-Ray 06/04/24 07:32 IMPRESSION: Normal x-ray examination of the wrist. Electronically Signed: Won Jain MD at 8:53 EDT Reading Location ID and State: [id number] / [employer] , Service support , CT scan of the brain was obtained. There is no acute intracranial abnormality. This was interpreted by the radiologist and was also independently reviewed by myself. X-rays of the left hip were obtained. There are 3 views. On my independent interpretation, there is no acute fracture. There are some degenerative changes noted. There is no loosening of the prosthesis. This was interpreted by the radiologist who agrees. X-rays of the left tibia and fibula were obtained. There are 4 views. On my independent interpretation, there is no acute fracture or dislocation noted. There are vascular calcifications noted. There are some mild degenerative changes. Radiologist also interpreted the x-rays and agrees. X-rays of the left wrist were obtained. There are 3 views. On my independent interpretation, there is no acute fracture or dislocation noted. There are some degenerative changes noted. There are vascular calcifications noted. Radiologist also interpreted the x-rays and agrees. Treatment and Re-Evaluation Narrative: Steri-Strips were applied to the left leg wound. Patient was able to ambulate with a walker without difficulty. Patient was advised of his findings. Patient was instructed to follow-up with his primary care physician in 5 to 7 days. Patient understood and was agreeable with the plan. All questions were answered. Discharge Plan Triage Chief Complaint: Fall ED Provider: Daquan Molina Dx/Rx/DC Orders Clinical Impression: Fall, Abrasion of chin without infection, Noninfected skin tear of left leg, Right wrist sprain, Contusion of left hip, initial encounter Instructions: ED Abrasion, ED Soft Tissue Contusion, ED Skin Tear (Skin Avulsion) Prescriptions: No Action buspirone 15 mg tablet 15 mg PO TID loperamide [Imodium A-D] 2 mg tablet 2 mg PO Q4H PRN (Reason: diarrhea) Rx Instructions: administer after each loose stool until symptoms controlled; do not exceed 16 mg per 24 hrs ferrous fumarate 325 mg (106 mg iron) tablet 325 mg PO BID aspirin 81 MG tablet,chewable 81 mg PO DAILY Patient Comments: HEART HEALTH magnesium oxide 400 MG tablet 400 mg PO DAILY Patient Comments: MAGNESIUM SUPPLEMENT atorvastatin 80 MG tablet 80 mg PO QHS montelukast 10 MG tablet 10 mg PO QHS fluticasone propionate 1 SPRAY spray,suspension 2 spray NASAL DAILY cholecalciferol (vitamin D3) 2,000 UNIT capsule 2,000 unit PO BID tamsulosin 0.4 mg Capsule 0.4 mg PO QHS mirtazapine 15 mg Tablet 15 mg PO QHS glimepiride 4 mg Tablet 4 mg PO BREAKFAST docusate sodium 100 MG capsule 100 mg PO DAILY clopidogrel 75 mg Tablet 75 mg PO DAILY Qty: 30 0RF isosorbide mononitrate 30 mg Tablet Extended Release 24 Hr 30 mg PO DAILY Qty: 30 0RF fluticasone furoate-vilanterol [Breo Ellipta] 200-25 mcg/dose blister with device 1 inh INHALATION DAILY metoprolol succinate 25 mg tablet extended release 24 hr 25 mg PO DAILY Rx Instructions: HOLD hr <55 HOLD SYSTOLIC <95 calcium carbonate-vitamin D3 [Calcium 600 + D(3)] 600 mg-5 mcg (200 unit) tablet 1 tab PO BID pantoprazole 40 mg tablet,delayed release (DR/EC) 40 mg PO DAILY acetaminophen 325 mg Tablet 650 mg PO Q6H PRN PRN (Reason: Pain 1-10 Or Fever>100.7) Qty: 0 0RF mirabegron [Myrbetriq] 50 mg tablet extended release 24 hr 50 mg PO DAILY Daily Fiber (psyllium-aspart) 3 gram Powder In Packet 1 packet PO DAILY PRN PRN (Reason: Constipation) Qty: 0 0RF torsemide 40 mg tablet 40 mg PO BID 30 Days Qty: 60 1RF Rx Instructions: Hold for MARLA calcium polycarbophil [Fiber-Lax] 625 mg tablet 625 mg PO BID Jardiance 10 mg tablet 10 mg PO DAILY omega-3 fatty acids-fish oil 300-1,000 mg capsule 1 cap PO DAILY buspirone [BuSpar] 20 mg .ROUTE TID trazodone 50 mg tablet 50 mg PO DAILY insulin glargine-yfgn 100 unit/mL (3 mL) Insulin Pen 15 unit subcut BID Qty: 15 0RF (DME) pen needle, diabetic 29 gauge needle See Rx Instructions .Route Qty: 100 0RF Rx Instructions: As directed Trulance 3 mg tablet 3 mg PO DAILY 30 Days Qty: 30 6RF sucralfate 1 gram tablet 1 g PO BID Qty: 60 0RF Primary Care Provider: Bertrand Warner Referrals: Bertrand Warner MD [Primary Care Provider] - 5-7 Days Print Language: Turkish Disposition Disposition: Home, Self Care
--- NOTE | 2024-06-04 07:32 | RAD_ITS ---
STUDY: X-RAY - PELVIS AND LEFT HIP REASON FOR EXAM: Male, 83 years old. Injury/Pain TECHNIQUE: 3 views of the pelvis and hip. COMPARISON: None. FINDINGS: There is a non-specific bowel gas pattern. Normal visualized soft tissue structures. Normal bilateral iliac wings, sacroiliac joints and visualized sacrum. Normal bilateral superior and inferior pubic rami. Normal pubic symphysis. Normal bilateral ischial tuberosities. Status post left hip arthroplasty. The prosthesis appears located. No ostial lysis to suggest loosening.. RAD/HIP, UNI W/ Pelvis 2-3 Views IMPRESSION: Normal x-ray examination of the pelvis and hip after total hip arthroplasty. Electronically Signed: Won Jain MD at 8:54 EDT ,
--- NOTE | 2024-06-04 07:32 | CT_ITS ---
STUDY: CT BRAIN WITHOUT CONTRAST REASON FOR EXAM: Male, 83 years old. Injury/Pain RADIATION DOSAGE (If Supplied By Facility): CTDIvol = ( 44.99 ) mGy, DLP = ( 863.60 ) mGycm TECHNIQUE: Transaxial CT imaging of the brain was performed without administration of intravenous contrast material. Individualized dose optimization techniques were used for this CT. COMPARISON: 05/07/2022 FINDINGS: Normal soft tissue structures. Normal calvarium. There is mild cerebral atrophy with widening of the extra-axial spaces and ventricular dilatation. There are areas of decreased attenuation within the white matter tracts of the supratentorial brain, consistent with microvascular disease changes. Normal basal ganglia and thalami. Normal brainstem. Normal cerebellum. There is no intracranial hemorrhage. There are no findings of an acute ischemic infarction. Normal visualized paranasal sinuses. CT/Brain/Head without Contrast IMPRESSION: Chronic involutional changes of the brain. Electronically Signed: Won Jain MD at 8:52 EDT ,
--- NOTE | 2024-06-04 07:32 | RAD_ITS ---
STUDY: X-RAY - RIGHT WRIST REASON FOR EXAM: Male, 83 years old. Injury/Pain TECHNIQUE: 3 view(s) of the wrist were obtained. COMPARISON: None. FINDINGS: Normal visualized distal radius and ulna. Normal radiocarpal articulation. Normal distal radioulnar articulation. Normal carpal bones. Normal carpal articulations. Normal carpometacarpal articulation of the thumb. Normal second through fifth carpometacarpal articulations. Normal visualized metacarpal bones. The soft tissue structures are unremarkable. RAD/Wrist min 3 Views IMPRESSION: Normal x-ray examination of the wrist. Electronically Signed: Won Jain MD at 8:53 EDT ,
--- NOTE | 2024-06-04 07:32 | RAD_ITS ---
STUDY: X-RAY - LEFT TIBIA AND FIBULA REASON FOR EXAM: Male, 83 years old. Injury/Pain TECHNIQUE: 2 view(s) of the tibia and fibula were obtained. COMPARISON: None. FINDINGS: Normal visualized tibia. Normal visualized fibula. The soft tissue structures are unremarkable. RAD/Tibia & Fibula 2 Views IMPRESSION: Normal x-ray examination of the tibia and fibula. Electronically Signed: Won Jain MD at 8:55 EDT ,
[2024-06-04 07:52] LABS: Absolute Lymphocyte Count 1.06 X10^3/uL (0.83-4.51); Absolute Neutrophil Count 5.9 X10^3/uL (2.0-7.7); Basophil# 0.05 X10^3/uL; Basophil% 0.6 % (0-1); Eosinophil# 0.28 X10^3/uL; Eosinophils% 3.4 % (0-5); Hematocrit 47.1 % (40-54); Hemoglobin 14.9 g/dL (13.0-16.5); Lymphocyte # 1.06 X10^3/ul (0.83-4.51); Mean Corp Hgb Conc 31.6 g/dL (32-36); Mean Corpuscular Hgb 28.5 pg (27.0-32.0); Mean Corpuscular Volume 90.1 fL (80-94); Monocyte% 9.8 % (0-10); NRBC Flagged by Analyzer 0 % (0-5); Neutrophil # 5.92 X10^3/uL (2.7-7.7); Neutrophil % 72.7 % (47-70); POSITIVE MORPHOLOGY YES; Platelet Count 209 K/mm3 (150-450); RBC Distribution Width CV 20.3 % (11.6-14.6); RBC Distribution Width SD 64.4 fl (35.1-43.9); Red Blood Count 5.23 M/mm3 (4.6-6.2); White Blood Count 8.2 K/mm3 (4.4-11.0)
[2024-06-04 07:56] LABS: Differential Indicated SCAN CRITERIA MET
[2024-06-04 08:04] LABS: Anion Gap 6 (5-15); BUN 26 mg/dL (7-18); BUN/Creat Ratio 20.2 RATIO (10-20); Calcium,Total 9.6 mg/dL (8.5-10.1); Chloride 100 mmol/L (98-107); Creatinine, Serum 1.29 mg/dL (0.70-1.30); EST Glomerular Filtration Rate 57 mL/min (>60); Est Glom Filt Rate - Afr Amer 69 mL/min (>60); Estimated Creatinine Clearance 67.42 ml/min; Glucose 194 mg/dL (74-106); Potassium 3.6 mmol/L (3.5-5.1); Sodium Level 140 mmol/L (136-145)
[2024-06-04 08:24] LABS: Anisocytosis 1+
[2024-06-04 09:04] VITALS: O2SAT 96
[2024-06-04 09:06] VITALS: BP 143/85; PULSE 72; RESP 16; O2SAT 97
[2024-06-04 09:08] LABS: Bacteria 0 SEEN /hpf (None Seen); Mucous, Urine 0 SEEN /hpf (<or=2+); Red Blood Cells-Urine 0 SEEN /hpf (0-5); White Blood Cells 0 SEEN /hpf (0-5)
[2024-06-04 09:14] LABS: Color, Urine Yellow (Yellow); Glucose, Dipstick 1000 mg/dl (Normal); Ketone-Dipstick Negative (Negative); Leukocyte Esterase-Dipstick Negative /ul (Negative); Nitrite-Dipstick Negative (Negative); Occult Blood-Urine Negative /ul (Negative); Protein-Dipstick 15 mg/dl (Negative); Urine Bilirubin Dipstick Negative (Negative); Urine Clarity Clear (Clear); Urine Urobilinogen Normal (Normal); Urine pH 6.5 (5.0 - 8.0)
[2024-06-04 09:19] LABS: Squamous Epithelial Cells - UA 0-5 SEEN /hpf (0-5)
[2024-06-04 09:34] VITALS: BP 148/67; PULSE 74; RESP 16; TEMP 36.7; O2SAT 95
== END 2024-06-04 10:01 | disposition home or self-care (01) ==
PROVIDERS: Emergency Provider Emergency Medicine; PCP Family Medicine; Visit Provider Emergency Medicine
DX: S00.81XA Abrasion of other part of head, initial encounter (principal); I13.0 Hypertensive heart and chronic kidney disease with heart failure and stage 1 through stage 4 chronic kidney disease, or unspecified chronic kidney disease; I50.9 Heart failure, unspecified; J44.9 Chronic obstructive pulmonary disease, unspecified; I48.0 Paroxysmal atrial fibrillation; E11.22 Type 2 diabetes mellitus with diabetic chronic kidney disease; Z79.4 Long term (current) use of insulin; I25.10 Atherosclerotic heart disease of native coronary artery without angina pectoris; E78.5 Hyperlipidemia, unspecified; N18.2 Chronic kidney disease, stage 2 (mild); Z85.46 Personal history of malignant neoplasm of prostate; Z79.82 Long term (current) use of aspirin; Z79.899 Other long term (current) drug therapy; Z79.51 Long term (current) use of inhaled steroids; Z79.84 Long term (current) use of oral hypoglycemic drugs; Z79.02 Long term (current) use of antithrombotics/antiplatelets; G47.33 Obstructive sleep apnea (adult) (pediatric); Z99.81 Dependence on supplemental oxygen; K21.9 Gastro-esophageal reflux disease without esophagitis; F41.9 Anxiety disorder, unspecified; Z90.49 Acquired absence of other specified parts of digestive tract; Z95.5 Presence of coronary angioplasty implant and graft; Z96.643 Presence of artificial hip joint, bilateral; Z95.1 Presence of aortocoronary bypass graft; Z95.0 Presence of cardiac pacemaker; S63.501A Unspecified sprain of right wrist, initial encounter; S70.02XA Contusion of left hip, initial encounter; S81.812A Laceration without foreign body, left lower leg, initial encounter; W01.10XA Fall on same level from slipping, tripping and stumbling with subsequent striking against unspecified object, initial encounter
CPT/HCPCS: 70450; 73110; 73502; 73590; 80048; 81001; 85025; 99283; A4216

== ENCOUNTER → 2024-06-15 | Outpatient (CLI) | payer MEDICARE, MEDICAID, SELFPAY ==
--- NOTE | 2024-06-15 10:35 | VDLE_ITS ---
Reason For Study: HXDVT RIGHT LEFT GSV is normal. FV is compressible, phasic, and INCOMPETENT CFV is compressible, spontaneous, phasic, for greater than 1.0 second. competent and demonstrates normal augmentation. FV is compressible, spontaneous, phasic, competent and demonstrates normal augmentation. POP V is compressible, spontaneous, phasic, competent and demonstrates normal augmentation. T/P Trunk is compressible. PTV is compressible. RT PerV is compressible. Compare to study 05/15/2024. Procedure This is a venous duplex using B-mode, color flow and spectral Doppler. Exam performed in department. The study was technically difficult. VL/Venous Duplex US, Unilateral Interpretation Summary Deep veins of the right lower extremity are patent and compressible segmentally . There is no evidence of right lower extremity deep vein thrombosis. The right great [place] us vein appears patent and compressible segmentally. Ordering Physician: Bertrand Warner Referring Physician: Bertrand Warner Performed By: Freddie Miguel RVT
== END | disposition home or self-care (01) ==
LOC: CVS 10:23
PROVIDERS: PCP Family Medicine; Referring Provider Family Medicine; Visit Provider Family Medicine
DX: I82.461 Acute embolism and thrombosis of right calf muscular vein (principal)
CPT/HCPCS: 93971

== ENCOUNTER 2024-10-17 16:29 | Emergency (ER) | payer MEDICARE, MEDICAID, SELFPAY ==
[2024-10-17 16:31] VITALS: BP 147/63; PULSE 67; RESP 26; TEMP 37; O2SAT 93; BMI 44.6
--- NOTE | 2024-10-17 18:12 | RAD_ITS ---
PROCEDURE: PA and lateral chest radiographs, three views REASON FOR EXAM: Aspiration of food TECHNIQUE: Three views of the chest were obtained. COMPARISON: 05/13/2024 FINDINGS: Similar prominence of the cardiomediastinal silhouette. Sternotomy wires and a right pacemaker device remain. The lungs are hyperinflated. Respiratory motion on the lateral view. The bones are osteopenic with degenerative changes in the spine. Mild degree of pulmonary vascular congestion. Right lung grossly clear. There is some persistent hazy opacity at the left lung base. RAD/Chest PA and Lateral IMPRESSION: Similar prominence of the cardiomediastinal silhouette, with mild pulmonary vas cular congestion. Findings are suggestive of a mild degree of congestive heart failure. Persistent hazy opacity of the left lung base could be due to a combination of prominent fat pad and chronic small left pleural effusion. Some component of superimposed pneumonia is not entirely excluded. Suggest a follow-up PA and lateral chest radiograph in 1 week. Reading Location: [facility]
[2024-10-17 18:20] VITALS: PULSE 67; RESP 20
[2024-10-17] MEDS: Ipratropium/Albuterol Sulfate 3 ML AMPUL.NEB INHALATION (18:20)
[2024-10-17 18:31] VITALS: BP 174/76; PULSE 60; RESP 16; O2SAT 92
--- NOTE | 2024-10-17 19:33 | CT_ITS ---
PROCEDURE: CHEST WITHOUT CONTRAST REASON FOR EXAM: Possible aspiration TECHNIQUE: Chest CT without contrast. COMPARISON: 12/07/2023 FINDINGS: Hardware: Sternotomy wires and mediastinal clips. Lymph nodes: No mediastinal hilar or axillary lymphadenopathy. Heart and Vasculature: Heart is mildly enlarged. Coronary artery calcifications are noted. Atherosclerotic calcifications of the thoracic aorta. Thoracic aorta and pulmonary arteries have normal contours; noncontrast technique limits evaluation. Coronary Artery Calcifications: Severe Lungs and Airways: Mild dependent atelectasis. Pleura: No pleural effusion. No pneumothorax. Upper Abdomen: Visualized portions of the upper abdominal viscera are unremarkable. Pancreas is fatty replaced. Bones: Bone windows are unremarkable. CT/Chest without Contrast IMPRESSION: 1. Bibasilar atelectasis with no areas of consolidation in the lungs 2. Mild cardiomegaly with severe coronary artery calcifications. 3. Status post CABG changes One or more dose reduction techniques were used (e.g., Automated exposure contr ol, adjustment of the mA and/or kV according to patient size, use of iterative reconstruction technique). Reading Location: [facility]
[2024-10-17 20:00] VITALS: BP 136/73; PULSE 60; RESP 15; O2SAT 97
--- NOTE | 2024-10-17 21:24 | EX.ED.DYSGE1 ---
HPI History of Present Illness Chief Complaint: Foreign Body Narrative Narrative: Patient is a 84-year-old gentleman with history of coronary artery disease, atrial fibrillation and CHF as well as diabetes mellitus and asthma presenting from [facility] after he choked on some food. Patient states he was eating some instep ground meat when this happened. He coughed. He states he was coughing for about 30 minutes straight. He tried drinking water which was able to swallow but does not help his coughing. He was sent to the ER for further evaluation. He notes at this time his coughing is seem to be improving. He was in his normal state of health before this. No other complaints or concerns at this time. Patient notes that he is mostly wheelchair-bound at baseline and does not ambulate. [facility] Medical History Constipation Ulcer of left lower extremity with fat layer exposed DM2 (diabetes mellitus, type 2) Wound of right lower extremity History of echocardiogram Lives in assisted living facility [facility] as ambulation aid Arthritis Dietary restriction On home oxygen therapy Anxiety Depression CKD (chronic kidney disease), stage II Esophageal stricture Wears glasses Cancer Pancreatic abnormality Thyroid disease Shortness of breath on exertion Cardiology follow-up encounter Dysphagia GERD (gastroesophageal reflux disease) Atrial fibrillation Congestive heart failure (CHF) Diabetes Non-smoker BiPAP (biphasic positive airway pressure) dependence Asthma COPD (chronic obstructive pulmonary disease) Hyperlipemia Pacemaker Hypertension Ulcer of right lower extremity with fat layer exposed Chest pain Fall Paroxysmal atrial fibrillation Complete heart block 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 Atherosclerosis of coronary artery of [place] heart without angina pectoris Junctional escape rhythm Chronic venous insufficiency Swelling of lower extremity Edema of both legs Morbid obesity Prostate cancer Venous stasis dermatitis of both lower extremities Cholecystitis CHF (congestive heart failure) Ileus following gastrointestinal surgery Obstructive sleep apnea HLD (hyperlipidemia) Benign essential HTN Home Medications ?Medication ?Instructions ?Recorded ?Last Taken ?Type aspirin 81 mg chewable tablet 81 mg PO DAILY HEALTH MAINTENANCE 06/09/13 05/12/24 History atorvastatin 80 mg tablet 80 mg PO QHS HLD 08/05/18 05/12/24 History cholecalciferol (vitamin D3) 50 2,000 unit PO BID SUPPLEMENT 11/24/19 05/12/24 History mcg (2,000 unit) capsule fluticasone propionate 50 2 spray NASAL DAILY ALLERGIES 11/24/19 05/12/24 History mcg/actuation nasal spray,suspension montelukast 10 mg tablet 10 mg PO QHS ALLERGIES 11/24/19 05/12/24 History glimepiride 4 mg tablet 4 mg PO BREAKFAST DM 01/09/21 05/12/24 History mirtazapine 15 mg tablet 15 mg PO QHS mental health 01/09/21 05/12/24 History tamsulosin 0.4 mg capsule 0.4 mg PO QHS prostate 01/09/21 05/12/24 History docusate sodium 100 mg capsule 100 mg PO QODAY stool softner 07/15/21 05/12/24 History clopidogrel 75 mg tablet 75 mg PO DAILY prevent clots #30 11/17/22 05/12/24 Rx tabs fluticasone furoate 200 1 inh inhalation DAILY Check with 11/17/22 05/12/24 History mcg-vilanterol 25 mcg/dose primary doctor inhalation powder (Breo Ellipta) isosorbide mononitrate 30 mg 30 mg PO DAILY bp, heart #30 tabs 11/17/22 05/12/24 Rx tablet,extended release 24 hr metoprolol succinate 25 mg 25 mg PO DAILY Check with primary 11/17/22 05/12/24 History tablet,extended release 24 hr doctor calcium 600 mg (as 1 tab PO BID supplement 06/09/23 05/12/24 History carbonate)-vitamin D3 5 mcg (200 unit) tablet (Calcium 600 + D(3)) pantoprazole 40 mg tablet,delayed 40 mg PO DAILY GERD 06/09/23 05/12/24 History release acetaminophen 325 mg tablet 650 mg (2 x 325 mg) PO Q6H PRN PRN 06/25/23 Unknown Rx Pain 1-10 Or Fever>100.7 #0 tabs plecanatide 3 mg tablet (Trulance) 3 mg PO DAILY chronic constipation 06/28/23 05/12/24 Rx 30 days #30 tabs mirabegron 50 mg tablet,extended 50 mg PO DAILY . 12/07/23 05/12/24 History release 24 hr (Myrbetriq) sucralfate 1 gram tablet 1 g PO BID ulcers #60 tabs 01/07/24 05/12/24 Rx psyllium husk (aspartame) 3 gram 1 packet PO DAILY PRN PRN 01/08/24 Unknown Rx oral powder packet (Daily Fiber Constipation #0 ea (psyllium-aspartame)) calcium polycarbophil 625 mg 625 mg PO BID laxat 03/02/24 05/12/24 History tablet (Fiber-Lax) empagliflozin 10 mg tablet 10 mg PO DAILY DM 03/02/24 05/12/24 History (Jardiance) ferrous fumarate 325 mg (106 mg 325 mg PO BID supplement 04/18/24 05/12/24 History iron) tablet loperamide 2 mg tablet (Imodium 2 mg PO Q4H PRN diarrhea 04/18/24 Unknown History A-D) buspirone 20 mg .Route TID anxiety 05/13/24 05/12/24 History omega-3 fatty acids-fish oil 300 1 cap PO DAILY supplement 05/13/24 05/12/24 History mg-1,000 mg capsule trazodone 50 mg tablet 50 mg PO DAILY insomnia 05/13/24 05/12/24 History insulin glargine-yfgn 100 unit/mL 15 unit (0.15 mL) subcut BID #15 mL 05/17/24 Unknown Rx (3 mL) subcutaneous pen pen needle, diabetic 29 gauge #100 ea 05/17/24 Unknown Rx torsemide 40 mg tablet 40 mg PO DAILY CHF 10/17/24 Unknown History Allergy/AdvReac Type Severity Reaction Status Date / Time lisinopril Allergy Unknown Verified 10/17/24 16:36 sertraline Allergy Unknown Verified 10/17/24 16:36 Family History Mother Lung cancer Father CAD (coronary artery disease) Hypertension Heart disease Myocardial infarction Brother Myocardial infarction Hypertension Heart disease CAD (coronary artery disease) Surgical History History of cardiac catheterization History of appendectomy History of coronary artery stent placement S/P CABG x 2 Coronary angioplasty status History of bilateral hip arthroplasty History of cholecystectomy Hx of CABG H/O coronary artery bypass surgery Presence of cardiac pacemaker Status post cholecystectomy Social History household members: none housing: assisted living facility number of children: 0 current occupational status: retired Smoking Status: Never smoker alcohol intake: never substance use type: does not use ROS ROS ED Constitutional Constitutional ED: Denies chills or fever(s) ENT ENT ED: Reports other Details: Feels that there is some food stuck in his throat Cardiovascular Cardiovascular: Denies chest pain Respiratory/Chest Respiratory/Chest: Reports cough and dyspnea Gastrointestinal Gastrointestinal: Denies nausea or vomiting Musculoskeletal Musculoskeletal: Denies back pain Neurologic Neurologic: Denies paresthesias or weakness EXAM Physical Exam Const Vital Signs: 10/17/24 16:31 10/17/24 16:37 10/17/24 18:20 Temperature 98.6 F Temperature Source Oral Pulse Rate 67 67 Respiratory Rate 26 H 20 H Respiratory Effort Short of Breath Respiratory Pattern Normal Normal Blood Pressure 147/63 H Blood Pressure Mean 91 Pulse Ox 93 Oxygen Delivery Method Room Air 10/17/24 18:31 10/17/24 20:00 10/17/24 22:08 Temperature 98.1 F Temperature Source Pulse Rate 60 60 60 Respiratory Rate 16 15 17 Respiratory Effort Respiratory Pattern Blood Pressure 174/76 H 136/73 H 134/76 H Blood Pressure Mean 108 94 95 Pulse Ox 92 97 99 Oxygen Delivery Method Room Air Room Air Positive well nourished, well developed and obese General Appearance ED: well developed and NAD; Negative for pallor Nutritional Appearance: obese HEENT Reports moist mucous membranes Eyes PERRL Neck supple and no JVD Neck Narrative: no stridor Chest Wall inspection of chest normal and palpation of chest normal Resp normal respiratory effort Resp Narrative: Scattered expiratory wheezes upper lung carr present. Auscultation: diminished lung sounds bilateral lower Cardio regular rate, regular rhythm and no murmurs GI normal to inspection, nondistended, normoactive bowel sounds, non-tender and non-distended Extremity Extremity Narrative: Chronic venous stasis changes 1+ edema of the lower legs. Neuro oriented x3 Sensorium / Orientation: alert Motor Exam: general weakness Psych mental status grossly normal Skin General Skin Exam: Negative for pallor MDM MDM MDM Narrative Medical decision making narrative: Patient evaluated for episode of what sounds like aspiration or choking. Differential includes aspiration, food impaction, asthma exacerbation. Patient overall is well-appearing. Coughing seems to be improved. Does have scattered wheeze on respiratory exam and is given a DuoNeb. On repeat evaluation he has improvement. Chest x-ray viewed by myself as well as radiology is limited secondary to patient's body habitus but does show mild pulmonary vascular congestion. I did also question from radiology a superimposed pneumonia. Will obtain CT of the chest for further evaluation given his aspiration event reported tonight. CT of the chest does not show any acute process. Patient is now breathing comfortably and is 97-99% on room air. As he does not ambulate at baseline will not obtain ambulatory pulse ox. He is asymptomatic at this time. I do not think requires any antibiotics or steroids. Suspicion for pneumonitis. He is eating and drinking and this does not sound like it was food impaction/esophageal obstruction. Patient is discharged back to [facility]. Is counseled if he develops a fever, worsening shortness of breath or increased O2 requirements he needs either return to the emergency room or to see his PCP because he would be at risk for aspiration pneumonia. He verbalized agreement or stands plan. Discharged home in stable condition. Radiography Diagnostic Testing: Clinical Impression(s) from Imaging Studies Chest X-Ray 10/17/24 18:12 IMPRESSION: Similar prominence of the cardiomediastinal silhouette, with mild pulmonary vascular congestion. Findings are suggestive of a mild degree of congestive heart failure. Persistent hazy opacity of the left lung base could be due to a combination of prominent fat pad and chronic small left pleural effusion. Some component of superimposed pneumonia is not entirely excluded. Suggest a follow-up PA and lateral chest radiograph in 1 week. Reading Location: [facility] Chest CT 10/17/24 19:33 IMPRESSION: 1. Bibasilar atelectasis with no areas of consolidation in the lungs 2. Mild cardiomegaly with severe coronary artery calcifications. 3. Status post CABG changes One or more dose reduction techniques were used (e.g., Automated exposure control, adjustment of the mA and/or kV according to patient size, use of iterative reconstruction technique). Reading Location[facility] Discharge Plan Triage Chief Complaint: Foreign Body ED Provider: Rosalinda Brady Dx/Rx/DC Orders Clinical Impression: Aspiration of food Instructions: ED Choking Spell (Adult) Prescriptions: No Action loperamide [Imodium A-D] 2 mg tablet 2 mg PO Q4H PRN (Reason: diarrhea) Rx Instructions: administer after each loose stool until symptoms controlled; do not exceed 16 mg per 24 hrs ferrous fumarate 325 mg (106 mg iron) tablet 325 mg PO BID aspirin 81 MG tablet,chewable 81 mg PO DAILY Patient Comments: [facility] atorvastatin 80 MG tablet 80 mg PO QHS montelukast 10 MG tablet 10 mg PO QHS fluticasone propionate 1 SPRAY spray,suspension 2 spray NASAL DAILY cholecalciferol (vitamin D3) 2,000 UNIT capsule 2,000 unit PO BID tamsulosin 0.4 mg Capsule 0.4 mg PO QHS mirtazapine 15 mg Tablet 15 mg PO QHS glimepiride 4 mg Tablet 4 mg PO BREAKFAST docusate sodium 100 MG capsule 100 mg PO QODAY clopidogrel 75 mg Tablet 75 mg PO DAILY Qty: 30 0RF isosorbide mononitrate 30 mg Tablet Extended Release 24 Hr 30 mg PO DAILY Qty: 30 0RF fluticasone furoate-vilanterol [Breo Ellipta] 200-25 mcg/dose blister with device 1 inh INHALATION DAILY metoprolol succinate 25 mg tablet extended release 24 hr 25 mg PO DAILY Rx Instructions: HOLD hr <55 HOLD SYSTOLIC <95 calcium carbonate-vitamin D3 [Calcium 600 + D(3)] 600 mg-5 mcg (200 unit) tablet 1 tab PO BID pantoprazole 40 mg tablet,delayed release (DR/EC) 40 mg PO DAILY acetaminophen 325 mg Tablet 650 mg PO Q6H PRN PRN (Reason: Pain 1-10 Or Fever>100.7) Qty: 0 0RF mirabegron [Myrbetriq] 50 mg tablet extended release 24 hr 50 mg PO DAILY Daily Fiber (psyllium-aspart) 3 gram Powder In Packet 1 packet PO DAILY PRN PRN (Reason: Constipation) Qty: 0 0RF calcium polycarbophil [Fiber-Lax] 625 mg tablet 625 mg PO BID Jardiance 10 mg tablet 10 mg PO DAILY omega-3 fatty acids-fish oil 300-1,000 mg capsule 1 cap PO DAILY buspirone [BuSpar] 20 mg .Route TID trazodone 50 mg tablet 50 mg PO DAILY insulin glargine-yfgn 100 unit/mL (3 mL) Insulin Pen 15 unit subcut BID Qty: 15 0RF (DME) pen needle, diabetic 29 gauge needle See Rx Instructions .Route Qty: 100 0RF Rx Instructions: As directed torsemide 40 mg tablet 40 mg PO DAILY Rx Instructions: Hold for MARLA Trulance 3 mg tablet 3 mg PO DAILY 30 Days Qty: 30 6RF sucralfate 1 gram tablet 1 g PO BID Qty: 60 0RF Primary Care Provider: Bertrand Warner Referrals: Bertrand Warner MD [Primary Care Provider] - Activity Restrictions/Additional Instructions: Your imaging does not show any findings consistent with aspiration, pneumonia or inhaled food. Your CT does show incidental findings of coronary artery disease/coronary artery calcifications as well as enlargement of the heart. If you have worsening respiratory symptoms, fever or have a change in your cough for the next few days please talk to your primary care doctor return to the emergency room as you might require antibiotics. At this time you do not. Print Language: Andorran Disposition Disposition: Home, Self Care
[2024-10-17 22:08] VITALS: BP 134/76; PULSE 60; RESP 17; TEMP 36.7; O2SAT 99
--- NOTE | 2024-10-17 22:10 | ED.RN ---
Kyrie MAE updated on pts d/c all questions answered.
== END 2024-10-18 02:07 | disposition home or self-care (01) ==
PROVIDERS: Emergency Provider Emergency Medicine; PCP Family Medicine; Visit Provider Emergency Medicine
DX: T17.928A Food in respiratory tract, part unspecified causing other injury, initial encounter (principal); I50.9 Heart failure, unspecified; I13.0 Hypertensive heart and chronic kidney disease with heart failure and stage 1 through stage 4 chronic kidney disease, or unspecified chronic kidney disease; E11.22 Type 2 diabetes mellitus with diabetic chronic kidney disease; E78.5 Hyperlipidemia, unspecified; I25.10 Atherosclerotic heart disease of native coronary artery without angina pectoris; R09.89 Other specified symptoms and signs involving the circulatory and respiratory systems; N18.2 Chronic kidney disease, stage 2 (mild); Z99.3 Dependence on wheelchair; Z95.1 Presence of aortocoronary bypass graft; J98.11 Atelectasis; W44.F3XA Food entering into or through a natural orifice, initial encounter; E66.9 Obesity, unspecified; Z95.0 Presence of cardiac pacemaker; Z90.49 Acquired absence of other specified parts of digestive tract; Z95.5 Presence of coronary angioplasty implant and graft
CPT/HCPCS: 71046; 71250; 94640; 99285